=== PATIENT | female | born 1945 | race Two or more races ===

== ENCOUNTER → 2016-10-24 | Outpatient (CLI) | payer MEDICARE, OTHER ==
[~2016-10-24] MED LIST: AMLODIPINE BESYL5 MG ORAL; ASPIRIN-LOW81 MG ORAL; ASPIRIN81 MG ORAL; BACTRIM DS TAB1 EAC1 ORAL; BENAZEPRIL HCL10 MG ORAL; CARAFATE1 G1 ORAL; COUMADIN6 MG ORAL; CRESTOR10 M1 ORAL; DIGOXIN125 MCG ORAL; FUROSEMIDE80 MG ORAL; KEFLEX500 MG ORAL; LASIX20 M1 ORAL; LASIX40 MG ORAL; LEVAQUIN500 MG ORAL; LOVENOX10 M1 SUBQ; METOPROLOL TART50 MG ORAL; POTASSIUM CHLO20 ME1 ORAL; POTASSIUM CL 225 MEQ PO; PROMETHAZINE-C118 M1 ORAL; PROTONIX40 MG ORAL; WARFARIN SODIUM5 MG ORAL; WARFARIN SODIUM6 MG ORAL; ZOLPIDEM TARTRAT5 MG ORAL
[2016-10-24 15:57] LABS: BASOPHILS % (AUTO) 0.8 % (0.0-2.0); EOSINOPHILS % (AUTO) 1.9 % (0.0-3.0); LYMPHOCYTES % (AUTO) 30.2 % (20.0-45.0); MEAN CORPUSCULAR HEMOGLOBIN 31.5 PG (27.0-31.0); MEAN CORPUSCULAR HGB CONC 33.3 G/DL (32.0-36.0); MEAN CORPUSCULAR VOLUME 94 FL (80-99); MEAN PLATELET VOLUME 8.3 FL (6.5-10.1); MONOCYTES % (AUTO) 7.7 % (1.0-10.0); NEUTROPHILS % (AUTO) 59.5 % (45.0-75.0); PLATELET COUNT 172 K/UL (150-450); RED BLOOD COUNT 4.11 M/UL (4.20-5.40); RED CELL DISTRIBUTION WIDTH 13.3 % (11.6-14.8); WHITE BLOOD COUNT 8.5 K/UL (4.8-10.8)
[2016-10-24 16:31] LABS: ALANINE AMINOTRANSFERASE 19 U/L (3-33); ALBUMIN/GLOBULIN RATIO 1.2 (1.0-2.7); ANION GAP 12 (5-15); ASPARTATE AMINO TRANSFERASE 28 U/L (5-40); CALCIUM 8.9 mg/dL (8.6-10.2); CARBON DIOXIDE 30 mEQ/L (20-30); CHLORIDE 99 mEQ/L (98-107); CREATININE 0.8 mg/dL (0.5-0.9); GLOMERULAR FILTRATION RATE > 60 mL/min (>60); HEMOLYSIS 3; POTASSIUM 3.6 mEQ/L (3.4-4.9); SODIUM 141 mEQ/L (135-145); TOTAL PROTEIN 7.3 g/dL (6.6-8.7)
== END | disposition home or self-care (01) ==
LOC: EDSTATUS 08:40 → LAB 15:20
DX: Z01.818 Encounter for other preprocedural examination (principal)
CPT/HCPCS: 36415; 80053; 85025

== ENCOUNTER → 2016-10-25 | Outpatient (CLI) | payer MEDICARE, OTHER ==
--- NOTE | 2016-10-26 14:57 | Cardiology Report ---
APPROVED REPORT EKG Measurement Heart [id number] Atrial fibrillation with slow ventricular response Abnormal ECG
== END | disposition home or self-care (01) ==
LOC: CAR 10:40
DX: Z01.818 Encounter for other preprocedural examination (principal)
CPT/HCPCS: 93005

== ENCOUNTER 2016-12-08 21:47 | Inpatient (IN) | payer MEDICARE, OTHER ==
[~2016-12-08] VITALS: Ht 154.9 cm; Wt 90.7 kg
[~2016-12-08 21:47] MED LIST changes: -ASPIRIN-LOW81 MG ORAL; -POTASSIUM CHLO20 ME1 ORAL; -WARFARIN SODIUM5 MG ORAL
[2016-12-08 22:04] VITALS: BP 143/54
[2016-12-08] MEDS ORDERED: Morphine Sulfate 4mg/ml Inj IVP ONE (22:15)
[2016-12-08 23:04] LABS: MEAN CORPUSCULAR HEMOGLOBIN 29.8 PG (27.0-31.0); MEAN CORPUSCULAR HGB CONC 31.3 G/DL (32.0-36.0); MEAN CORPUSCULAR VOLUME 95 FL (80-99); MEAN PLATELET VOLUME 8.6 FL (6.5-10.1); PLATELET COUNT 192 K/UL (150-450); RED CELL DISTRIBUTION WIDTH 13.6 % (11.6-14.8); WHITE BLOOD COUNT 21.5 K/UL (4.8-10.8)
[2016-12-08 23:15] LABS: TROPONIN I < 0.30 ng/mL (<=0.30)
[2016-12-08 23:18] LABS: ALBUMIN/GLOBULIN RATIO 1.1 (1.0-2.7); CALCIUM 9.1 mg/dL (8.6-10.2); GLOMERULAR FILTRATION RATE 54.8 mL/min (>60); POTASSIUM 3.4 mEQ/L (3.4-4.9); TOTAL PROTEIN 7.7 g/dL (6.6-8.7)
[2016-12-08 23:29] LABS: CKMB 2.5 ng/mL (< 3.8)
[2016-12-08 23:41] LABS: BILIRUBIN,DIRECT 0.9 mg/dL (0.1-0.3)
[2016-12-08 23:42] LABS: APPEARANCE,URINE CLEAR; KETONES,URINE NEGATIVE (NEGATIVE); LEUKOCYTE ESTERASE ,URINE 1+ (NEGATIVE); NITRITE,URINE NEGATIVE (NEGATIVE); PH,URINE 5 (4.5-8.0); PROTEIN,URINE 1+ (NEGATIVE); UROBILINOGEN,URINE 4 MG/DL (0.0-1.0)
[2016-12-08 23:48] LABS: INR 3.3 (0.9-1.1); PROTHROMBIN TIME 34.7 SEC (9.30-11.50)
[2016-12-08 23:53] LABS: BACTERIA,URINE FEW /HPF; ICTOTEST NEGATIVE; SQUAMOUS EPITHELIAL CELL,UR FEW /LPF (NONE/OCC); WBC,URINE 0-2 /HPF (0 - 2)
[2016-12-09] VITALS (7 sets, daily range): BP systolic 115–148; BP diastolic 36–78
[2016-12-09 00:02] LABS: BAND NEUTROPHILS % (MANUAL) 3 % (0-8); BASOPHILS % (MANUAL) 0 % (0-2); EOSINOPHILS % (MANUAL) 0 % (0-3); LYMPHOCYTES % (MANUAL) 6 % (20-45); NEUTROPHILS % (MANUAL) 89 % (45-75); PLATELET ESTIMATE ADEQUATE; PLATELET MORPHOLOGY NORMAL; TOTAL CELLS COUNTED 100
[2016-12-09] MEDS ORDERED: Piperacillin/Tazobactam 3.375 GM in NS 110 ML IVPB ONE (00:15)
[2016-12-09] MEDS ORDERED: Zosyn 3.375gm inj ONE ×2 (00:29→06:10)
[2016-12-09] MEDS ORDERED: WARFARIN SODIUM5 MG ORAL (01:49)
[2016-12-09] MEDS ORDERED: POTASSIUM CHLO20 ME1 ORAL (01:49)
[2016-12-09] MEDS ORDERED: ASPIRIN-LOW81 MG ORAL (01:49)
[2016-12-09] MEDS ORDERED: CARAFATE1 G1 ORAL (01:49)
--- NOTE | 2016-12-09 02:13 | Emergency Room Report ---
History of Present Illness General Chief Complaint: Abdominal Pain Source: Patient Present Illness HPI 71-year-old female presents ED for evaluation. Patient is complaining of abdominal pain times one day. Pain as throbbing, 10 out of 10, nonradiating. Diffuse. Denies nausea or vomiting. Denies chest pain or shortness of breath. Denies fevers or chills. No other aggravating or relieving factors. Denies any other associated symptoms Allergies: Coded Allergies: No Known Allergies (Unverified , 09/28/14) Patient History Past Medical History: HTN, AFib Past Surgical History: none Pertinent Family History: none Social History: Denies: alcohol use, drug use, smoking Now: No Immunizations: UTD Reviewed Nursing Documentation: PMH: Agreed, PSxH: Agreed Nursing Documentation-PMH Past Medical History: No History, Except For Hx Cardiac Problems: Yes - Aortic valve stenosis, mitral valve stenosis, A-fib , valve replacement apr Hx Hypertension: Yes - pulm htn Hx Diabetes: No Hx Cancer: No Hx Gastrointestinal Problems: Yes Hx Dialysis: No Hx Neurological Problems: No Hx Cerebrovascular Accident: No Hx Seizures: No Review of Systems All Other Systems: negative except mentioned in HPI Physical Exam Vital Signs Date Time Temp Pulse Resp B/P Pulse Ox O2 Delivery O2 Flow Rate FiO2 12/08/16 21:55 98.1 55 12 143/54 99 Room Air Sp02 EP Interpretation: reviewed, normal General Appearance: no apparent distress, alert, GCS 15, non-toxic Head: normocephalic, atraumatic Eyes: bilateral eye PERRL, bilateral eye normal inspection ENT: hearing grossly normal, normal pharynx, no angioedema, normal voice Neck: full range of motion, supple/symm/no masses Respiratory: chest non-tender, lungs clear, normal breath sounds, speaking full sentences Cardiovascular #1: regular rate, rhythm, no edema Cardiovascular #2: 2+ carotid (R), 2+ carotid (L), 2+ radial (R), 2+ radial (L) , 2+ dorsalis pedis (R), 2+ dorsalis pedis (L) Gastrointestinal: normal bowel sounds, soft, non-distended, no guarding, no rebound, tenderness Rectal: deferred Genitourinary: normal inspection, no CVA tenderness Musculoskeletal: back normal, gait/station normal, normal range of motion, non- tender Neurologic: alert, oriented x3, responsive, motor strength/tone normal, sensory intact, speech normal Psychiatric: judgement/insight normal, memory normal, mood/affect normal, no suicidal/homicidal ideation Reflexes: 3+ bicep (R), 3+ bicep (L), 3+ tricep (R), 3+ tricep (L), 3+ knee (R) , 3+ knee (L) Skin: normal color, no rash, warm/dry, well hydrated Lymphatic: no adenopathy Medical Decision Making Diagnostic Impression: Primary Impression: Pancreatitis Qualified Codes: K85.10 - Biliary acute pancreatitis without necrosis or infection Additional Impressions: Phlegmon of pancreas Bradycardia ER Course Hospital Course 71-year-old female presents to ED with abdominal pain Differential diagnoses include: BPH, cystitis, pyelonephritis, kidney stone 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 After initial history and physical I ordered labs, IV fluids, UA, pain medication and CT scan Labs - noted leukocytosis, Hb/Hct stable. electrolytes ok. Lipase > 3000, AST/ ALT elevated. CT abdomen and pelvis - pancreatitis, cholelithiasis with pericholecystic fluid ? cholecystitis given IVFs. pain meds. abx. patient bradycardic. digoxin level therapeutic EKG - afib with slow ventricular response Case discussed with Dr. Mishra and he agreed to accept the patient to his service for further care and support I feel this is a highly complex case requiring extensive working including EKG/ Rhythm strip, Xray/CT/US, Blood/urine lab work, repeat exams while in ED, and administration of strong opiates/narcotics for pain control, admission to hospital or close patient follow up. Diagnosis - acute pancreatitis, bradycardia Patient admitted to [facility] in serious condition Labs Test 12/08/16 22:35 12/08/16 23:25 12/09/16 01:20 White Blood Count 21.5 K/UL (4.8-10.8) Red Blood Count 4.80 M/UL (4.20-5.40) Hemoglobin 14.3 G/DL (12.0-16.0) Hematocrit 45.8 % (37.0-47.0) Mean Corpuscular Volume 95 FL (80-99) Mean Corpuscular Hemoglobin 29.8 PG (27.0-31.0) Mean Corpuscular Hemoglobin Concent 31.3 G/DL (32.0-36.0) Red Cell Distribution Width 13.6 % (11.6-14.8) Platelet Count 192 K/UL (150-450) Mean Platelet Volume 8.6 FL (6.5-10.1) Neutrophils (%) (Auto) % (45.0-75.0) Lymphocytes (%) (Auto) % (20.0-45.0) Monocytes (%) (Auto) % (1.0-10.0) Eosinophils (%) (Auto) % (0.0-3.0) Basophils (%) (Auto) % (0.0-2.0) Differential Total Cells Counted 100 Neutrophils % (Manual) 89 % (45-75) Lymphocytes % (Manual) 6 % (20-45) Monocytes % (Manual) 2 % (1-10) Eosinophils % (Manual) 0 % (0-3) Basophils % (Manual) 0 % (0-2) Band Neutrophils 3 % (0-8) Platelet Estimate Adequate Platelet Morphology Normal Red Blood Cell Morphology Normal Prothrombin Time 34.7 SEC (9.30-11.50) Prothromb Time International Ratio 3.3 (0.9-1.1) Activated Partial Thromboplast Time 37 SEC (23-33) Sodium Level 141 mEQ/L (135-145) Potassium Level 3.4 mEQ/L (3.4-4.9) Chloride Level 92 mEQ/L (98-107) Carbon Dioxide Level 32 mEQ/L (20-30) Anion Gap 17 (5-15) Blood Urea Nitrogen 23 mg/dL (7-23) Creatinine 1.0 mg/dL (0.5-0.9) Estimat Glomerular Filtration Rate 54.8 mL/min (>60) Glucose Level 239 mg/dL (74-106) Calcium Level 9.1 mg/dL (8.6-10.2) Total Bilirubin 2.2 mg/dL (0.0-1.2) Direct Bilirubin 0.9 mg/dL (0.1-0.3) Aspartate Amino Transf (AST/SGOT) 121 U/L (5-40) Alanine Aminotransferase (ALT/SGPT) 50 U/L (3-33) Alkaline Phosphatase 109 U/L (35-104) Creatine Kinase MB 2.5 ng/mL (< 3.8) Troponin I < 0.30 ng/mL (<=0.30) Total Protein 7.7 g/dL (6.6-8.7) Albumin 4.1 g/dL (3.5-5.2) Globulin 3.6 g/dL Albumin/Globulin Ratio 1.1 (1.0-2.7) Lipase 3050 U/L (< 60) Digoxin Level 0.9 ng/mL (0.5-2.0) Urine Color Yellow Urine Appearance Clear Urine pH 5 (4.5-8.0) Urine Specific [place] 1.020 (1.005-1.035) Urine Protein 1+ (NEGATIVE) Urine Glucose (UA) Negative (NEGATIVE) Urine Ketones Negative (NEGATIVE) Urine Occult Blood 2+ (NEGATIVE) Urine Nitrite Negative (NEGATIVE) Urine Bilirubin 1+ (NEGATIVE) Urine Ictotest Negative Urine Urobilinogen 4 MG/DL (0.0-1.0) Urine Leukocyte Esterase 1+ (NEGATIVE) Urine RBC 10-15 /HPF (0 - 2) Urine WBC 0-2 /HPF (0 - 2) Urine Squamous Epithelial Cells Few /LPF (NONE/OCC) Urine Bacteria Few /HPF (NONE) EKG Diagnostic Results Rate: bradycardiac Rhythm: other - afib ST Segments: no acute changes ASA given to the pt in ED: No Rhythm Strip Diag. Results EP Interpretation: yes Rhythm: no ectopy CT/MRI/US Diagnostic Results CT/MRI/US Diagnostic Results : Imaging Test Ordered: CT A/P Impression Extensive peripancreatic edema, consistent with acute pancreatitis. Cholelithiasis and there is pericholecystic edema, which is likely reactive to pancreatitis, but cholecystitis is not excluded Last Vital Signs Date Time Temp Pulse Resp B/P Pulse Ox O2 Delivery O2 Flow Rate FiO2 12/09/16 00:04 98.1 59 16 121/43 97 Room Air Status: improved Disposition: ADMITTED INPATIENT Condition: Serious Referrals: NOT CHOSEN LAURENT/,REFERRING (PCP) ABIGAIL ARELLANO M.D. Dec 09, 2016 02:13
[2016-12-09] MEDS ORDERED: Morphine Sulfate 4mg/ml Inj IVP ONE (02:30)
[2016-12-09] MEDS ORDERED: Nitroglycerin Subl 0.4mg tab (Bottle Of 25) SL PRN (05:00)
[2016-12-09] MEDS ORDERED: Mylanta II UD 30ml ORAL PRN (05:00)
[2016-12-09] MEDS ORDERED: Miralax 17gm pkt ORAL PRN (05:00)
[2016-12-09] MEDS: Piperacillin/Tazobactam 3.375 GM in NS 110 ML IVPB SCH ×3 (06:23→21:28)
--- NOTE | 2016-12-09 07:53 | History and Physical ---
History of Present Illness General Date patient seen: Dec 09, 2016 Time patient seen: 08:00 Reason for Hospitalization: Abdominal Pain Present Illness HPI 71-year-old female with past history of acute pancreatitis , CAD, A fibrillation , HTN, Hx of MVR and AVR presented to ED for evaluation. Patient was complaining of abdominal pain for one day. Pain described as throbbing, 10 out of 10, nonradiating, diffuse. Patient with 3 admission for the same reason for the last 3 years Denied nausea or vomiting. Denied chest pain or shortness of breath. Denied fevers or chills. CT abdomen and pelvis revealed pancreatitis, cholelithiasis with pericholecystic fluid ? cholecystitis Lab work up revealed leukocytosis-33, lipase -3050 , elevated LFT/bili, hyperglycemia patient admitted for further management Allergies: Coded Allergies: No Known Allergies (Unverified , 09/28/14) Medication History Scheduled Amlodipine Besylate* (Amlodipine Besylate*), 5 MG ORAL DAILY, (Reported) Aspirin (Aspirin EC), 81 MG ORAL DAILY, (Reported) Aspirin* (Aspirin*), 81 MG ORAL DAILY, (Reported) Digoxin* (Digoxin*), 125 MCG ORAL DAILY, (Reported) Furosemide (Furosemide), 80 MG ORAL DAILY, (Reported) Metoprolol Tartrate* (Metoprolol Tartrate*), 75 MG ORAL BID, (Reported) Pot Chloride/Pot Bicarb/Cit Ac (Potassium Cl 25 Meq Tab Eff), 20 MEQ PO DAILY, ( Reported) Potassium Chloride* (K-Dur*), 20 MEQ ORAL DAILY, (Reported) Rosuvastatin Calcium (Crestor), 10 MG ORAL DAILY, (Reported) Sucralfate* (Carafate*), 1 GM ORAL FOUR TIMES A DAY, (Reported) Warfarin Sod* (Warfarin Sod*), 5 MG ORAL DAILY, (Reported) Scheduled PRN Zolpidem Tartrate* (Zolpidem Tartrate*), 5 MG ORAL BEDTIME PRN for Insomnia, ( Reported) Patient History Healthcare decision maker self Resuscitation status Full Code Advanced Directive on File No Past Medical/Surgical History Past Medical/Surgical History: (1) Anemia (2) Pancreatitis (3) Aortic stenosis (4) Cholelithiasis (5) Hepatomegaly (6) Atrial fibrillation (7) Helicobacter pylori gastritis Review of Systems Constitutional: Reports: weakness ENT: Reports: no symptoms Respiratory: Reports: no symptoms Cardiovascular: Reports: see HPI Gastrointestinal: Reports: see HPI Genitourinary: Reports: no symptoms Musculoskeletal: Reports: joint pain Skin: Reports: no symptoms Psychiatric: Reports: no symptoms Neurological: Reports: no symptoms Endocrine: Reports: no symptoms Hematologic/Lymphatic: Reports: no symptoms Physical Exam General Appearance: WD/WN, no apparent distress, alert - A/A/O x 3 Lines, tubes and drains: peripheral HEENT: normocephalic, atraumatic, anicteric Neck: normal alignment, supple Respiratory/Chest: lungs clear, no respiratory distress, no accessory muscle use Cardiovascular/Chest: normal peripheral pulses, no JVD, irregularly irregular - A fib , rate controlled, frequent PVC, run of NSVT Abdomen: normal bowel sounds, soft - obese, diffused tenderness, no rebound, no guarding Skin Exam: normal pigmentation, warm/dry Neurologic: no motor/sensory deficits, alert, oriented x 3, responsive Last 24 Hour Vital Signs Date Time Temp Pulse Resp B/P Pulse Ox O2 Delivery O2 Flow Rate FiO2 12/09/16 04:00 60 12/09/16 03:10 97.8 12/09/16 03:00 55 12/09/16 03:00 97.8 55 19 144/52 98 Nasal Cannula 2.0 12/09/16 02:40 98.1 57 15 133/38 98 Nasal Cannula 2.0 12/09/16 02:04 97.9 57 15 133/36 98 Nasal Cannula 2.0 12/09/16 00:04 98.1 59 16 121/43 97 Room Air 12/08/16 23:07 98.0 12/08/16 22:04 98.1 56 12 143/54 99 Room Air 12/08/16 21:55 98.1 55 12 143/54 99 Room Air Intake and Output 12/08/16 12/09/16 19:00 07:00 Intake Total 702.5 ml Balance 702.5 ml Intake Oral 0 ml IV Total 702.5 ml # Voids 1 Laboratory Tests Test 12/08/16 22:35 12/08/16 23:25 12/09/16 01:20 White Blood Count 21.5 K/UL (4.8-10.8) H Red Blood Count 4.80 M/UL (4.20-5.40) Hemoglobin 14.3 G/DL (12.0-16.0) Hematocrit 45.8 % (37.0-47.0) Mean Corpuscular Volume 95 FL (80-99) Mean Corpuscular Hemoglobin 29.8 PG (27.0-31.0) Mean Corpuscular Hemoglobin Concent 31.3 G/DL (32.0-36.0) L Red Cell Distribution Width 13.6 % (11.6-14.8) Platelet Count 192 K/UL (150-450) Mean Platelet Volume 8.6 FL (6.5-10.1) Neutrophils (%) (Auto) % (45.0-75.0) Lymphocytes (%) (Auto) % (20.0-45.0) Monocytes (%) (Auto) % (1.0-10.0) Eosinophils (%) (Auto) % (0.0-3.0) Basophils (%) (Auto) % (0.0-2.0) Differential Total Cells Counted 100 Neutrophils % (Manual) 89 % (45-75) H Lymphocytes % (Manual) 6 % (20-45) L Monocytes % (Manual) 2 % (1-10) Eosinophils % (Manual) 0 % (0-3) Basophils % (Manual) 0 % (0-2) Band Neutrophils 3 % (0-8) Platelet Estimate Adequate Platelet Morphology Normal Red Blood Cell Morphology Normal Prothrombin Time 34.7 SEC (9.30-11.50) H Prothromb Time International Ratio 3.3 (0.9-1.1) H Activated Partial Thromboplast Time 37 SEC (23-33) H Sodium Level 141 mEQ/L (135-145) Potassium Level 3.4 mEQ/L (3.4-4.9) Chloride Level 92 mEQ/L (98-107) L Carbon Dioxide Level 32 mEQ/L (20-30) H Anion Gap 17 (5-15) H Blood Urea Nitrogen 23 mg/dL (7-23) Creatinine 1.0 mg/dL (0.5-0.9) H Estimat Glomerular Filtration Rate 54.8 mL/min (>60) Glucose Level 239 mg/dL (74-106) H Calcium Level 9.1 mg/dL (8.6-10.2) Total Bilirubin 2.2 mg/dL (0.0-1.2) H Direct Bilirubin 0.9 mg/dL (0.1-0.3) H Aspartate Amino Transf (AST/SGOT) 121 U/L (5-40) H Alanine Aminotransferase (ALT/SGPT) 50 U/L (3-33) H Alkaline Phosphatase 109 U/L (35-104) H Creatine Kinase MB 2.5 ng/mL (< 3.8) Troponin I < 0.30 ng/mL (<=0.30) Total Protein 7.7 g/dL (6.6-8.7) Albumin 4.1 g/dL (3.5-5.2) Globulin 3.6 g/dL Albumin/Globulin Ratio 1.1 (1.0-2.7) Lipase 3050 U/L (< 60) H Digoxin Level 0.9 ng/mL (0.5-2.0) Urine Color Yellow Urine Appearance Clear Urine pH 5 (4.5-8.0) Urine Specific [place] 1.020 (1.005-1.035) Urine Protein 1+ (NEGATIVE) H Urine Glucose (UA) Negative (NEGATIVE) Urine Ketones Negative (NEGATIVE) Urine Occult Blood 2+ (NEGATIVE) H Urine Nitrite Negative (NEGATIVE) Urine Bilirubin 1+ (NEGATIVE) H Urine Ictotest Negative Urine Urobilinogen 4 MG/DL (0.0-1.0) H Urine Leukocyte Esterase 1+ (NEGATIVE) H Urine RBC 10-15 /HPF (0 - 2) H Urine WBC 0-2 /HPF (0 - 2) Urine Squamous Epithelial Cells Few /LPF (NONE/OCC) Urine Bacteria Few /HPF (NONE) Lactic Acid Level 1.50 mmol/L (0.66-2.22) Height (Feet): 5 Height (Inches): 1.00 Weight (Pounds): 145 Medications Current Medications Medications (Trade) Dose Ordered Sig/Lisbeth Route PRN Reason Start Time Stop Time Status Last Admin Dose Admin Acetaminophen (Tylenol) 650 mg Q4H PRN ORAL fever 12/09/16 05:00 01/08/17 04:59 Al Hydroxide/Mg Hydroxide (Mylanta II) 30 ml Q6H PRN ORAL dyspepsia 12/09/16 05:00 01/08/17 04:59 Amlodipine Besylate (Norvasc) 5 mg DAILY ORAL 12/09/16 09:00 52/17 08:59 Dextrose STAT PRN IV Hypoglycemia 12/09/16 05:00 01/08/17 04:59 Dextrose/Sodium Chloride (D5 0.45% NS) 1,000 ml @ 75 mls/hr [id number] IV 12/09/16 17:40 01/08/17 17:39 12/09/16 06:03 Digoxin (Lanoxin) 0.125 mg DAILY ORAL 12/09/16 09:00 01/08/17 08:59 Diphenhydramine HCl (Benadryl) 25 mg Q6H PRN ORAL Itching/Pruritis 12/09/16 05:00 01/08/17 04:59 Furosemide (Lasix) 80 mg DAILY ORAL 12/09/16 09:00 01/08/17 08:59 Heparin Sodium (Porcine) (Heparin 5000 units/ml) 5,000 units EVERY 12 HOURS SUBQ 12/09/16 09:00 01/08/17 08:59 Morphine Sulfate (Morphine Sulfate) 2 mg EVERY 4 HOURS PRN IVP severe Pain (Pain Scale 7-10) 12/09/16 05:00 12/16/16 04:59 Nitroglycerin (Ntg) 0.4 mg Q5M X 3 DOSES PRN SL Prn Chest Pain 12/09/16 05:00 01/08/17 04:59 Ondansetron HCl (Zofran) 4 mg Q6H PRN IVP Nausea & Vomiting 12/09/16 05:00 01/08/17 04:59 Piperacillin Sod/ Tazobactam Sod/ Sodium Chloride (Zosyn/Sodium Chloride) 110 ml @ 27.5 mls/hr EVERY 8 HOURS IVPB 12/09/16 06:00 12/16/16 05:59 12/09/16 06:23 Polyethylene Glycol (Miralax) 17 gm HSPRN PRN ORAL Constipation 12/09/16 05:00 01/08/17 04:59 Sucralfate 1 gm 1 gm FOUR TIMES A DAY ORAL 12/09/16 09:00 01/08/17 08:59 Temazepam (Restoril) 15 mg HSPRN PRN ORAL Insomnia 12/09/16 05:00 12/16/16 04:59 Warfarin Sodium (Coumadin per pharmacy) 1 ea DAILY PRN MISC Per rx protocol 12/09/16 05:15 01/08/17 05:14 UNV Assessment/Plan Assessment/Plan ASSESSMENT acute pancreatitis possibly gallstones pancreatitis leukocytosis hyperglycemia HTN A fib pulmonary HTN Hx of AVR and MVR PLAN OF CARE DANYELLE NPO IVF GI eval pain management empiric abx trend LFT, bili, lipase check HgA1c and lipid panel CA 19-9 done on previous admission , WNL abdominal US cardio eval due to extensive cardiac history and run of NSVT rate control with BB and Digoxin ( level therapeutic) on Coumadin, keep INR in therapeutic range 2-3-per pharamncy BP management with BB, CCB and Lasix, optimize as needed last ECHO in September with grossly normal EF, RVSP of 62 c/w severe pulmonary HTN , moderate TR, mild to moderate MS. severe aortic sclerosis GI prophylaxis bowel regimen O2 HHN prn case discussed and evaluated by supervising physician Nazario Nolasco)Tonya NP Dec 09, 2016 07:52
[2016-12-09] MEDS: Sucralfate 1gm tab ORAL SCH ×4 (08:58→21:28)
[2016-12-09] MEDS ORDERED: Heparin 5000 units/ml inj SUBQ SCH (09:00)
[2016-12-09] MEDS ORDERED: Metoprolol 50mg tab ORAL SCH (09:00)
[2016-12-09] MEDS ORDERED: Furosemide 80mg tab ORAL SCH (09:00)
[2016-12-09] MEDS ORDERED: Digoxin 0.125mg tab ORAL SCH (09:00)
[2016-12-09] MEDS ORDERED: Tubing IV Secondary IV ONE (09:02)
[2016-12-09] MEDS ORDERED: D5 1/2NS 1000ml IV ONE (09:02)
[2016-12-09] MEDS: Morphine Sulfate 2mg/ml Inj IVP PRN ×3 (09:09→23:54)
[2016-12-09 09:24] LABS: HEMOGLOBIN A1C 6.7 % (< 6.0)
[2016-12-09 09:35] LABS: INR 3.7 (0.9-1.1); PROTHROMBIN TIME 39.3 SEC (9.30-11.50)
[2016-12-09 09:37] LABS: CHOLESTEROL/HDL RATIO 2.2 (3.3-4.4)
[2016-12-09 09:38] LABS: MEAN CORPUSCULAR HGB CONC 31.8 G/DL (32.0-36.0); MEAN CORPUSCULAR VOLUME 95 FL (80-99); MEAN PLATELET VOLUME 8.9 FL (6.5-10.1); PLATELET COUNT 218 K/UL (150-450); RED BLOOD COUNT 4.82 M/UL (4.20-5.40); RED CELL DISTRIBUTION WIDTH 13.6 % (11.6-14.8); WHITE BLOOD COUNT 16.8 K/UL (4.8-10.8)
[2016-12-09 09:48] LABS: THYROID STIMULATING HORMONE 0.77 uIU/mL (0.300-4.500)
[2016-12-09 10:01] LABS: ANION GAP 18 (5-15); CALCIUM 7.8 mg/dL (8.6-10.2); CARBON DIOXIDE 29 mEQ/L (20-30); CHLORIDE 96 mEQ/L (98-107); CREATININE 1.1 mg/dL (0.5-0.9); GLOMERULAR FILTRATION RATE 49.1 mL/min (>60); POTASSIUM 3.4 mEQ/L (3.4-4.9); SODIUM 143 mEQ/L (135-145)
[2016-12-09 10:17] LABS: BAND NEUTROPHILS % (MANUAL) 0 % (0-8); BASOPHILS % (MANUAL) 0 % (0-2); EOSINOPHILS % (MANUAL) 0 % (0-3); LYMPHOCYTES % (MANUAL) 5 % (20-45); NEUTROPHILS % (MANUAL) 92 % (45-75); PLATELET ESTIMATE ADEQUATE; PLATELET MORPHOLOGY NORMAL; TOTAL CELLS COUNTED 100
--- NOTE | 2016-12-09 11:26 | Cardiology Progress Note ---
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 on anticoagulation perm afib on anticoagualtion with couamdin coagulaopathy awuiat gi input if need surgery will need couadin dc and bridge to heparin will need min time off anticoaguaiton as has Mechanical Mitral prosthesis and afib decreaase ivf decrease bb to her usual dsoe eventually had some vomittign with vagally medicated jemima [id number] Objective Last 24 Hour Vital Signs Date Time Temp Pulse Resp B/P Pulse Ox O2 Delivery O2 Flow Rate FiO2 12/09/16 10:58 73 12/09/16 09:04 64 125/78 12/09/16 09:01 64 12/09/16 04:00 60 12/09/16 03:10 97.8 12/09/16 03:00 55 12/09/16 03:00 97.8 55 19 144/52 98 Nasal Cannula 2.0 12/09/16 02:40 98.1 57 15 133/38 98 Nasal Cannula 2.0 12/09/16 02:04 97.9 57 15 133/36 98 Nasal Cannula 2.0 12/09/16 00:04 98.1 59 16 121/43 97 Room Air 12/08/16 23:07 98.0 12/08/16 22:04 98.1 56 12 143/54 99 Room Air 12/08/16 21:55 98.1 55 12 143/54 99 Room Air Intake and Output 12/08/16 12/09/16 19:00 07:00 Intake Total 702.5 ml Balance 702.5 ml Intake Oral 0 ml IV Total 702.5 ml # Voids 1 Laboratory Tests Test 12/08/16 22:35 12/08/16 23:25 12/09/16 01:20 12/09/16 08:50 White Blood Count 21.5 K/UL (4.8-10.8) H 16.8 K/UL (4.8-10.8) H Red Blood Count 4.80 M/UL (4.20-5.40) 4.82 M/UL (4.20-5.40) Hemoglobin 14.3 G/DL (12.0-16.0) 14.5 G/DL (12.0-16.0) Hematocrit 45.8 % (37.0-47.0) 45.5 % (37.0-47.0) Mean Corpuscular Volume 95 FL (80-99) 95 FL (80-99) Mean Corpuscular Hemoglobin 29.8 PG (27.0-31.0) 30.0 PG (27.0-31.0) Mean Corpuscular Hemoglobin Concent 31.3 G/DL (32.0-36.0) L 31.8 G/DL (32.0-36.0) L Red Cell Distribution Width 13.6 % (11.6-14.8) 13.6 % (11.6-14.8) Platelet Count 192 K/UL (150-450) 218 K/UL (150-450) Mean Platelet Volume 8.6 FL (6.5-10.1) 8.9 FL (6.5-10.1) Neutrophils (%) (Auto) % (45.0-75.0) % (45.0-75.0) Lymphocytes (%) (Auto) % (20.0-45.0) % (20.0-45.0) Monocytes (%) (Auto) % (1.0-10.0) % (1.0-10.0) Eosinophils (%) (Auto) % (0.0-3.0) % (0.0-3.0) Basophils (%) (Auto) % (0.0-2.0) % (0.0-2.0) Differential Total Cells Counted 100 100 Neutrophils % (Manual) 89 % (45-75) H 92 % (45-75) H Lymphocytes % (Manual) 6 % (20-45) L 5 % (20-45) L Monocytes % (Manual) 2 % (1-10) 3 % (1-10) Eosinophils % (Manual) 0 % (0-3) 0 % (0-3) Basophils % (Manual) 0 % (0-2) 0 % (0-2) Band Neutrophils 3 % (0-8) 0 % (0-8) Platelet Estimate Adequate Adequate Platelet Morphology Normal Normal Red Blood Cell Morphology Normal Normal Prothrombin Time 34.7 SEC (9.30-11.50) H 39.3 SEC (9.30-11.50) H Prothromb Time International Ratio 3.3 (0.9-1.1) H 3.7 (0.9-1.1) H Activated Partial Thromboplast Time 37 SEC (23-33) H Sodium Level 141 mEQ/L (135-145) 143 mEQ/L (135-145) Potassium Level 3.4 mEQ/L (3.4-4.9) 3.4 mEQ/L (3.4-4.9) Chloride Level 92 mEQ/L (98-107) L 96 mEQ/L (98-107) L Carbon Dioxide Level 32 mEQ/L (20-30) H 29 mEQ/L (20-30) Anion Gap 17 (5-15) H 18 (5-15) H Blood Urea Nitrogen 23 mg/dL (7-23) 23 mg/dL (7-23) Creatinine 1.0 mg/dL (0.5-0.9) H 1.1 mg/dL (0.5-0.9) H Estimat Glomerular Filtration Rate 54.8 mL/min (>60) 49.1 mL/min (>60) Glucose Level 239 mg/dL (74-106) H 233 mg/dL (74-106) H Calcium Level 9.1 mg/dL (8.6-10.2) 7.8 mg/dL (8.6-10.2) L Total Bilirubin 2.2 mg/dL (0.0-1.2) H Direct Bilirubin 0.9 mg/dL (0.1-0.3) H Aspartate Amino Transf (AST/SGOT) 121 U/L (5-40) H Alanine Aminotransferase (ALT/SGPT) 50 U/L (3-33) H Alkaline Phosphatase 109 U/L (35-104) H Creatine Kinase MB 2.5 ng/mL (< 3.8) Troponin I < 0.30 ng/mL (<=0.30) Total Protein 7.7 g/dL (6.6-8.7) Albumin 4.1 g/dL (3.5-5.2) Globulin 3.6 g/dL Albumin/Globulin Ratio 1.1 (1.0-2.7) Lipase 3050 U/L (< 60) H 3950 U/L (< 60) H Digoxin Level 0.9 ng/mL (0.5-2.0) Urine Color Yellow Urine Appearance Clear Urine pH 5 (4.5-8.0) Urine Specific [place] 1.020 (1.005-1.035) Urine Protein 1+ (NEGATIVE) H Urine Glucose (UA) Negative (NEGATIVE) Urine Ketones Negative (NEGATIVE) Urine Occult Blood 2+ (NEGATIVE) H Urine Nitrite Negative (NEGATIVE) Urine Bilirubin 1+ (NEGATIVE) H Urine Ictotest Negative Urine Urobilinogen 4 MG/DL (0.0-1.0) H Urine Leukocyte Esterase 1+ (NEGATIVE) H Urine RBC 10-15 /HPF (0 - 2) H Urine WBC 0-2 /HPF (0 - 2) Urine Squamous Epithelial Cells Few /LPF (NONE/OCC) Urine Bacteria Few /HPF (NONE) Lactic Acid Level 1.50 mmol/L (0.66-2.22) Hemoglobin A1c 6.7 % (< 6.0) H Phosphorus Level 6.0 mg/dL (2.5-4.8) H Magnesium Level 2.0 mg/dL (1.7-2.5) Triglycerides Level 92 mg/dL (< 150) Cholesterol Level 93 mg/dL (< 200) LDL Cholesterol 32 mg/dL (60-99) L HDL Cholesterol 43 mg/dL (> 60) Cholesterol/HDL Ratio 2.2 (3.3-4.4) L Thyroid Stimulating Hormone (TSH) 0.770 uIU/mL (0.300-4.500) ANNE RAM Dec 09, 2016 11:26
--- NOTE | 2016-12-09 11:58 | Diagnostic Imaging Report ---
CT Abdomen/Pelvis with Intravenous Contrast INDICATION: Abdominal pain. COMPARISON: Abdomen/pelvis CT dated 06/14/15. TECHNIQUE: Serial axial images were obtained from the lung bases through the symphysis pubis after intravenous administration of contrast. Coronal and sagittal reformats were obtained. Dose Estimate: Total DLP 789 mGycm CTDIvol 17 mGy FINDINGS: The visualized lung bases exhibit mild atelectasis or scarring. The heart is enlarged. The liver is unremarkable. Small perihepatic splenic ascites is identified. There is enlargement of the pancreas with extensive peripancreatic fluid and edema compatible with advanced nonnecrotizing pancreatitis. Fluid extends along the mid abdomen into the upper pelvis. Mild prominence of the pancreatic duct noted. No significant intrahepatic or extrahepatic biliary ductal dilatation. The gallbladder contains small stones with apparent gallbladder wall thickening and pericholecystic fluid which may be related to mentioned pancreatitis. Acute cholecystitis is not excluded. Small duodenal diverticulum is suspected. Right renal parenchymal scarring is identified. No suspicious renal mass noted. No calculus is identified within either kidney, along the expected course of the ureters or within the urinary bladder. There is no evidence of hydronephrosis or asymmetric perirenal inflammatory change. The urinary bladder is exhibits mild wall thickening, likely due to under distention. The pelvic organs are grossly unremarkable. The visualized bowel are grossly unremarkable. There is no evidence of obstruction. There is no extraluminal gas or fluid. There are no enlarged lymph nodes. There is moderate calcified atherosclerotic disease of the the abdominal aorta. Mild degenerative changes noted in the thoracolumbar spine. IMPRESSION: 1. Nonnecrotizing acute pancreatitis with extensive peripancreatic fluid/phlegmon and inflammation. No evidence of organized fluid collection to suggest pseudocyst or abscess formation. 2. Cholelithiasis with apparent gallbladder wall thickening and pericholecystic fluid. This may related to the mentioned pancreatitis although acute cholecystitis is not excluded. Mild ascites noted. 3. Cardiomegaly. Other nonacute and essentially stable findings, as detailed above.
[2016-12-09] MEDS ORDERED: D5 1/2NS 1,000 ML IV SCH ×2 (12:00→17:40)
[2016-12-09] MEDS ORDERED: NS 275ml ONE (17:05)
--- NOTE | 2016-12-09 23:08 | Consultation ---
DATE OF CONSULTATION: 12/09/2016 GASTROENTEROLOGY CONSULTATION CHIEF COMPLAINT: Pancreatitis. HISTORY OF PRESENT ILLNESS: This is a very pleasant 71-year-old female, known to me from 2014, where I did an endoscopy and colonoscopy for her. Endoscopy showed evidence of gastritis and colonoscopy showed evidence of polyps and hemorrhoids. The patient is admitted with abdominal pain. She had a lipase of 3000 on admission and admitted with pancreatitis. PAST MEDICAL HISTORY: Significant for, 1. History of hypertension. 2. Gastritis. 3. Colon polyps. 4. Hemorrhoids. 5. Coronary artery disease. 6. Atrial fibrillation. 7. . PAST SURGICAL HISTORY: Cardiac surgery with aortic valve replacement. MEDICATIONS: Please see medication reconciliation list. ALLERGIES: No known drug allergies. SOCIAL HISTORY: The patient denies any tobacco, alcohol, or drug abuse. FAMILY HISTORY: Noncontributory. REVIEW OF SYSTEMS: A 10-point review of system was performed and pertinent positives in history of present illness. PHYSICAL EXAMINATION: VITAL SIGNS: Temperature 97.8 degrees, pulse 65, respirations 19, and blood pressure 144/52. HEENT: Normocephalic and atraumatic. Sclerae anicteric. NECK: Supple. No evidence of lymphadenopathy. CARDIOVASCULAR: Regular rate and rhythm. Plus S1 and S2. There is a scar in the midline from prior cardiac surgery. The patient has a soft murmur after replacement of the valve. ABDOMEN: Soft. Bowel sounds are present. Diffuse tenderness palpation in the epigastric area. No rebound. No guarding. No peritoneal signs. EXTREMITIES: No cyanosis. No clubbing. No edema. LABORATORY DATA: Sodium 140, potassium 3.4, BUN is 22, and creatinine 1.1. Bilirubin is 2.2. AST of 121, ALT of 50, and alkaline phosphatase of 105. White count is 16.8, hemoglobin 14, hematocrit 45, and platelet count is 218,000. ASSESSMENT AND PLAN: The patient is a 71-year-old female with pancreatitis and mild transaminitis. No prior history of gallstones. At this time, the cause of her pancreatitis is unknown. The patient given the lipase of 3000 and abdominal pain, to be kept NPO, intravenous fluids for hydration, and pain management. Lipid panel for tomorrow morning. We will repeat liver function tests for tomorrow. Abdominal ultrasound has been ordered. We will follow. Ortgea Gipson M.D. DR: MADELINE JOB#: [id number] CC:
--- NOTE | 2016-12-09 23:19 | Consultation ---
DATE OF CONSULTATION: 12/09/2016 CARDIOLOGY CONSULTATION REFERRING PHYSICIAN: Dennis Mishra M.D. REASON FOR REFERRAL: Cholecystitis, possible need for surgery. HISTORY OF PRESENT ILLNESS: The patient is a middle-aged female who is known to me from previous evaluations and hospitalization. The patient primarily started having some abdominal pain yesterday, nausea, vomiting and minimal amount of diarrhea. This pain continued and she presented to the emergency room and was diagnosed with possible acute cholecystitis. She has had this similar presentation on prior occasions and question about possible need for surgery was being raised. She has extensive cardiac history as noted below and will require preoperative cardiac assessment. The patient does not have any chest pain. Does not have any PND or orthopnea. She uses two pillows. She did have some dizziness and lightheadedness today, but usually she does not experience that. She does not have dyspnea on exertion. She does not have chest pain, pressure, tightness or palpitations. PAST MEDICAL HISTORY: Prominent with history of atrial fibrillation, systemic hypertension, history of previous mitral valvuloplasty, mitral valve surgery at [facility] and two or three years ago, she had aortic valve replacement here at [facility]. The patient has hypertension, systemic and pulmonary hypertension, mitral stenosis, congestive heart failure, pneumonia, COPD and recurrent bouts of pancreatitis, possibly gallstone related. ALLERGIES: She is not allergic to any medications. SOCIAL HISTORY: She does not smoke or drink alcoholic beverages. She lives at home with supportive family members. REVIEW OF SYSTEMS: Gastrointestinal: Positive as mentioned. Genitourinary: Negative. Pulmonary: Negative. Constitutional: Negative. Neurologic: Negative. Musculoskeletal: Negative. PHYSICAL EXAMINATION: GENERAL: The patient is an elderly female in no respiratory distress. NECK: Supple. No jugular venous distention is noted. LUNGS: Clear to auscultation and percussion. CARDIAC: Irregularly irregular systolic ejection murmur. No RV lift, heaves or thrills noted. Mechanical heart sounds noted. ABDOMEN: Soft. There is some tenderness to palpation. No guarding and no rigidity. No rebound tenderness. EXTREMITIES: There is no clubbing, cyanosis or edema. NEUROLOGIC: She is awake, alert and responsive and in no apparent respiratory distress. LABORATORY AND DIAGNOSTIC DATA: White count of 16.8, hemoglobin 14.5 and platelet count of 218,000. Sodium is 143, potassium 3.4, chloride 96, bicarbonate 29, BUN of 22, creatinine 1.1 and glucose of 233. Hemoglobin A1c of 6.7. Urine calcium is 7.8. Lipase is up to 3950 and amylase was not checked during this hospitalization. Her lipase level is much higher than it has ever been, on prior occasions it has been highest of 170s. TSH is 0.77. Coags, INR 3.7 and a PTT of 37. Urinalysis shows 10-15 RBCs and 0-2 WBCs. Digoxin level is 0.9. Imaging data is available at this time. ASSESSMENT AND PLAN: 1. Possible pancreatitis. 2. Abdominal pain secondary to above. 3. Valvular heart disease status post aortic valve replacement, pericardial valve and mitral valve replacement previously. 4. Pulmonary hypertension. 5. Chronic atrial fibrillation. 6. Coagulopathy secondary to Coumadin. Dr. Mishra, this patient was seen in cardiac consultation. The patient's last echocardiogram through my office was in April 2016, at that time ejection fraction was 60% to 65%, with peak mitral valve gradient of 20 and mean of 8, mitral valve area of 3 cm and aortic valve peak gradient is 14 and mean gradient was 17, and pulmonary artery systolic pressure in the 30s to 40s range. Her anticoagulation is mainly to be on hold if there is a pending surgery, although I am waiting for evaluation by Dr. Gipson to determine whether that may occur, at which time Coumadin will be discontinued. The patient will be bridged to heparin and further recommendations at that time based on those issues. Adonis Ortiz M.D. DR: GILMAR JOB#: [id number] CC:
[2016-12-10] VITALS (7 sets, daily range): BP systolic 107–149; BP diastolic 52–82
[2016-12-10] MEDS: Piperacillin/Tazobactam 3.375 GM in NS 110 ML IVPB SCH (05:17)
[2016-12-10 05:26] LABS: MEAN CORPUSCULAR HEMOGLOBIN 29.7 PG (27.0-31.0); MEAN CORPUSCULAR VOLUME 96 FL (80-99); MEAN PLATELET VOLUME 10.1 FL (6.5-10.1); PLATELET COUNT 230 K/UL (150-450); RED BLOOD COUNT 5.48 M/UL (4.20-5.40); RED CELL DISTRIBUTION WIDTH 14.5 % (11.6-14.8)
[2016-12-10 05:40] LABS: PROTHROMBIN TIME 111.6 SEC (9.30-11.50); WHITE BLOOD COUNT 27.7 K/UL (4.8-10.8)
[2016-12-10 05:45] LABS: ALBUMIN/GLOBULIN RATIO 0.8 (1.0-2.7); CALCIUM 6.8 mg/dL (8.6-10.2); CREATININE 1.6 mg/dL (0.5-0.9); GLOMERULAR FILTRATION RATE 31.8 mL/min (>60); POTASSIUM 3.6 mEQ/L (3.4-4.9); TOTAL PROTEIN 7.1 g/dL (6.6-8.7)
[2016-12-10 06:15] LABS: INR 10.2 (0.9-1.1)
[2016-12-10] MEDS ORDERED: D5 1/2NS 1,000 ML IV SCH ×2 (06:15→09:00)
[2016-12-10] MEDS ORDERED: Nitroglycerin Subl 0.4mg tab (Bottle Of 25) SL PRN (06:15)
[2016-12-10] MEDS: Morphine Sulfate 2mg/ml Inj IVP PRN ×4 (06:36→21:48)
[2016-12-10 07:03] LABS: BILIRUBIN,DIRECT 0.7 mg/dL (0.1-0.3)
[2016-12-10 08:17] LABS: ANISOCYTOSIS 1+; BAND NEUTROPHILS % (MANUAL) 6 % (0-8); BASOPHILS % (MANUAL) 0 % (0-2); EOSINOPHILS % (MANUAL) 0 % (0-3); LYMPHOCYTES % (MANUAL) 6 % (20-45); NEUTROPHILS % (MANUAL) 83 % (45-75); PLATELET ESTIMATE ADEQUATE; PLATELET MORPHOLOGY NORMAL; TOTAL CELLS COUNTED 100
[2016-12-10 08:30] LABS: PROTHROMBIN TIME 95.6 SEC (9.30-11.50)
[2016-12-10 08:50] LABS: INR 8.8 (0.9-1.1)
[2016-12-10] MEDS ORDERED: Furosemide 80mg tab ORAL SCH (09:00)
[2016-12-10] MEDS ORDERED: Metoprolol 25mg tab ORAL SCH (09:00)
[2016-12-10] MEDS: Digoxin 0.125mg tab ORAL SCH (09:05)
[2016-12-10] MEDS: Sucralfate 1gm tab ORAL SCH ×4 (09:06→21:52)
[2016-12-10] MEDS: Metoprolol 25mg tab ORAL SCH ×2 (09:06→21:48)
--- NOTE | 2016-12-10 09:40 | GI Progress Note ---
Assessment/Plan Problems: (1) Pancreatitis ICD Codes: K85.9 - Acute pancreatitis, unspecified SNOMED: 96136643 Qualifiers: Qualified Codes: K85.10 - Biliary acute pancreatitis without necrosis or infection (2) Abdominal pain ICD Codes: R10.9 - Unspecified abdominal pain SNOMED: 43749989, 728762614 (3) Iron deficiency anemia ICD Codes: D50.9 - Iron deficiency anemia, unspecified SNOMED: 70271068 (4) Colon polyp ICD Codes: K63.5 - Polyp of colon SNOMED: 41477997 Status: unchanged Status Narrative Discussed with Dr. Gipson. Assessment/Plan The patient was seen and examined at bedside and all new and available data was reviewed in the patients chart. I agree with the above findings, impression and plan. (Patient seen earlier today. Signature stamp does not reflect patient encounter time.). -Ortega Gipson MD elevated lipase >> downtrending fu lipid panel >> normal triglycerides fu abd U/S maintain NPO + IVFs pain mgmt abx repeat LFTs, lipase Subjective Subjective abdominal pain >> improved Objective Last 24 Hour Vital Signs Date Time Temp Pulse Resp B/P Pulse Ox O2 Delivery O2 Flow Rate FiO2 12/10/16 09:06 101 149/66 12/10/16 09:06 101 149/66 12/10/16 09:05 101 12/10/16 08:00 97.9 101 20 149/66 94 Nasal Cannula 2.0 12/10/16 06:00 97.3 108 28 137/52 96 Nasal Cannula 2.0 12/10/16 04:05 109 12/10/16 04:00 97.5 95 22 107/64 93 Room Air 12/10/16 00:43 115 12/10/16 00:00 98.6 102 22 126/82 96 Nasal Cannula 2.0 12/09/16 20:17 99.9 103 22 115/58 97 Nasal Cannula 2.0 12/09/16 20:00 106 12/09/16 16:00 84 12/09/16 16:00 98.4 93 20 135/74 94 Nasal Cannula 2.0 12/09/16 14:28 98.2 12/09/16 12:00 87 12/09/16 12:00 98.2 83 18 148/54 97 Nasal Cannula 2.0 12/09/16 10:58 73 Intake and Output 12/09/16 12/10/16 19:00 07:00 Intake Total 500.5 ml 700.0 ml Balance 500.5 ml 700.0 ml Intake Oral 0 ml 90 ml IV Total 500.5 ml 610.0 ml # Voids 4 Laboratory Tests Test 12/10/16 04:25 12/10/16 07:45 White Blood Count 27.7 K/UL (4.8-10.8) #*H Red Blood Count 5.48 M/UL (4.20-5.40) H Hemoglobin 16.3 G/DL (12.0-16.0) H Hematocrit 52.5 % (37.0-47.0) H Mean Corpuscular Volume 96 FL (80-99) Mean Corpuscular Hemoglobin 29.7 PG (27.0-31.0) Mean Corpuscular Hemoglobin Concent 31.0 G/DL (32.0-36.0) L Red Cell Distribution Width 14.5 % (11.6-14.8) Platelet Count 230 K/UL (150-450) Mean Platelet Volume 10.1 FL (6.5-10.1) Neutrophils (%) (Auto) % (45.0-75.0) Lymphocytes (%) (Auto) % (20.0-45.0) Monocytes (%) (Auto) % (1.0-10.0) Eosinophils (%) (Auto) % (0.0-3.0) Basophils (%) (Auto) % (0.0-2.0) Differential Total Cells Counted 100 Neutrophils % (Manual) 83 % (45-75) H Lymphocytes % (Manual) 6 % (20-45) L Monocytes % (Manual) 5 % (1-10) Eosinophils % (Manual) 0 % (0-3) Basophils % (Manual) 0 % (0-2) Band Neutrophils 6 % (0-8) Platelet Estimate Adequate Platelet Morphology Normal Anisocytosis 1+ Prothrombin Time 111.6 SEC (9.30-11.50) H 95.6 SEC (9.30-11.50) H Prothromb Time International Ratio 10.2 (0.9-1.1) *H 8.8 (0.9-1.1) *H Activated Partial Thromboplast Time 55 SEC (23-33) H Sodium Level 142 mEQ/L (135-145) Potassium Level 3.6 mEQ/L (3.4-4.9) Chloride Level 99 mEQ/L (98-107) Carbon Dioxide Level 24 mEQ/L (20-30) Anion Gap 19 (5-15) H Blood Urea Nitrogen 38 mg/dL (7-23) H Creatinine 1.6 mg/dL (0.5-0.9) H Estimat Glomerular Filtration Rate 31.8 mL/min (>60) Glucose Level 249 mg/dL (74-106) H Calcium Level 6.8 mg/dL (8.6-10.2) L Total Bilirubin 2.5 mg/dL (0.0-1.2) H Direct Bilirubin 0.7 mg/dL (0.1-0.3) H Aspartate Amino Transf (AST/SGOT) 43 U/L (5-40) H Alanine Aminotransferase (ALT/SGPT) 33 U/L (3-33) Alkaline Phosphatase 86 U/L (35-104) Total Protein 7.1 g/dL (6.6-8.7) Albumin 3.2 g/dL (3.5-5.2) L Globulin 3.9 g/dL Albumin/Globulin Ratio 0.8 (1.0-2.7) L Amylase Level 1873 U/L (10-110) *H Lipase 1515 U/L (< 60) H Height (Feet): 5 Height (Inches): 1.00 Weight (Pounds): 145 General Appearance: no apparent distress, alert, obese Cardiovascular: normal rate Respiratory/Chest: other - 2LNC Abdominal Exam: normal bowel sounds, non tender, soft Extremities: non-tender Lulu Dominguez N.PMary Dec 10, 2016 09:40 ORTEGA GIPSON Dec 10, 2016 12:46
[2016-12-10] MEDS ORDERED: Phytonadione 10 MG in NS 55 ML IVPB ONE (11:00)
[2016-12-10] MEDS ORDERED: Mylanta II UD 30ml ORAL PRN (11:00)
--- NOTE | 2016-12-10 11:32 | Pulmonology Progress Note ---
Assessment/Plan Problems: (1) Sepsis (2) Cholelithiasis (3) ATN (acute tubular necrosis) (4) Phlegmon of pancreas (5) Atrial fibrillation (6) Elevated INR Assessment/Plan afib and flutter on monitor byers cultures IV antibiotics check wbc vitamin K for elevated INR renal studies Subjective ROS Limited/Unobtainable: No Interval Events: still nauseous Allergies: Coded Allergies: No Known Allergies (Unverified , 09/28/14) Objective Last 24 Hour Vital Signs Date Time Temp Pulse Resp B/P Pulse Ox O2 Delivery O2 Flow Rate FiO2 12/10/16 09:06 101 149/66 12/10/16 09:06 101 149/66 12/10/16 09:05 101 12/10/16 08:00 97.9 101 20 149/66 94 Nasal Cannula 2.0 12/10/16 06:00 97.3 108 28 137/52 96 Nasal Cannula 2.0 12/10/16 04:05 109 12/10/16 04:00 97.5 95 22 107/64 93 Room Air 12/10/16 00:43 115 12/10/16 00:00 98.6 102 22 126/82 96 Nasal Cannula 2.0 12/09/16 20:17 99.9 103 22 115/58 97 Nasal Cannula 2.0 12/09/16 20:00 106 12/09/16 16:00 84 12/09/16 16:00 98.4 93 20 135/74 94 Nasal Cannula 2.0 12/09/16 14:28 98.2 12/09/16 12:00 87 12/09/16 12:00 98.2 83 18 148/54 97 Nasal Cannula 2.0 Intake and Output 12/09/16 12/10/16 19:00 07:00 Intake Total 500.5 ml 700.0 ml Balance 500.5 ml 700.0 ml Intake Oral 0 ml 90 ml IV Total 500.5 ml 610.0 ml # Voids 4 General Appearance: WD/WN HEENT: normocephalic, atraumatic Respiratory/Chest: chest wall non-tender, lungs clear Breasts: no masses Cardiovascular: normal peripheral pulses, normal rate Abdomen: normal bowel sounds, soft, non tender Genitourinary: normal external genitalia Extremities: no cyanosis Skin: no rash 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, no motor/sensory deficits Lymphatic: no neck adenopathy Microbiology Date/Time Source Procedure Growth Status 12/09/16 01:20 Blood Blood Culture - Preliminary NO GROWTH AFTER 24 HOURS Resulted 12/09/16 01:20 Blood Blood Culture - Preliminary NO GROWTH AFTER 24 HOURS Resulted Laboratory Tests 12/10/16 04:25: White Blood Count 27.7#*H, Red Blood Count 5.48H, Hemoglobin 16.3H, Hematocrit 52.5H, Mean Corpuscular Volume 96, Mean Corpuscular Hemoglobin 29.7, Mean Corpuscular Hemoglobin Concent 31.0L, Red Cell Distribution Width 14.5, Platelet Count 230, Mean Platelet Volume 10.1, Neutrophils (%) (Auto) , Lymphocytes (%) (Auto) , Monocytes (%) (Auto) , Eosinophils (%) (Auto) , Basophils (%) (Auto) , Differential Total Cells Counted 100, Neutrophils % ( Manual) 83H, Lymphocytes % (Manual) 6L, Monocytes % (Manual) 5, Eosinophils % ( Manual) 0, Basophils % (Manual) 0, Band Neutrophils 6, Platelet Estimate Adequate, Platelet Morphology Normal, Anisocytosis 1+, Prothrombin Time 111.6H, Prothromb Time International Ratio 10.2*H, Activated Partial Thromboplast Time 55H, Sodium Level 142, Potassium Level 3.6, Chloride Level 99, Carbon Dioxide Level 24, Anion Gap 19H, Blood Urea Nitrogen 38H, Creatinine 1.6H, Estimat Glomerular Filtration Rate 31.8, Glucose Level 249H, Calcium Level 6.8L, Total Bilirubin 2.5H, Direct Bilirubin 0.7H, Aspartate Amino Transf (AST/SGOT) 43H, Alanine Aminotransferase (ALT/SGPT) 33, Alkaline Phosphatase 86, Total Protein 7.1, Albumin 3.2L, Globulin 3.9, Albumin/Globulin Ratio 0.8L, Amylase Level 1873 *H, Lipase 1515H 12/10/16 07:45: Prothrombin Time 95.6H, Prothromb Time International Ratio 8.8*H Current Medications Medications (Trade) Dose Ordered Sig/Lisbeth Route PRN Reason Start Time Stop Time Status Last Admin Dose Admin Acetaminophen (Tylenol) 650 mg Q4H PRN ORAL fever 12/10/16 09:00 01/09/17 08:59 Al Hydroxide/Mg Hydroxide (Mylanta II) 30 ml Q6H PRN ORAL dyspepsia 12/10/16 11:00 01/09/17 10:59 Amlodipine Besylate (Norvasc) 5 mg DAILY ORAL 12/10/16 09:00 01/09/17 08:59 12/10/16 09:06 Dextrose (Dextrose 50%) STAT PRN IV Hypoglycemia 12/11/16 05:00 01/10/17 04:59 Dextrose/Sodium Chloride 1,000 ml @ 125 mls/hr Q8H IV 12/10/16 09:00 01/09/17 08:59 12/10/16 09:07 Digoxin (Lanoxin) 0.125 mg DAILY ORAL 12/10/16 09:00 01/09/17 08:59 12/10/16 09:05 Diphenhydramine HCl (Benadryl) 25 mg Q6H PRN ORAL Itching/Pruritis 12/10/16 11:00 01/09/17 10:59 Furosemide (Lasix) 80 mg DAILY ORAL 12/10/16 09:00 01/09/17 08:59 12/10/16 09:07 Metoprolol Tartrate (Lopressor) 25 mg Q12HR ORAL 12/10/16 09:00 01/09/17 08:59 12/10/16 09:06 Morphine Sulfate (Morphine Sulfate) 2 mg EVERY 4 HOURS PRN IVP severe Pain (Pain Scale 7-10) 12/10/16 09:00 12/17/16 08:59 12/10/16 06:36 Nitroglycerin (Ntg) 0.4 mg Q5M X 3 DOSES PRN SL Prn Chest Pain 12/10/16 06:15 01/09/17 06:14 Ondansetron HCl (Zofran) 4 mg Q6H PRN IVP Nausea & Vomiting 12/10/16 12:00 01/09/17 11:59 12/10/16 09:14 Phytonadione/ Sodium Chloride (Vitamin K/ Sodium Chloride) 56 ml @ 112 mls/hr ONCE ONCE IVPB 12/10/16 11:00 12/10/16 11:29 Piperacillin Sod/ Tazobactam Sod/ Sodium Chloride (Zosyn/Sodium Chloride) 110 ml @ 27.5 mls/hr EVERY 8 HOURS IVPB 12/10/16 14:00 12/17/16 13:59 Polyethylene Glycol (Miralax) 17 gm HSPRN PRN ORAL Constipation 12/11/16 05:00 01/10/17 04:59 Ranitidine HCl (Zantac) 150 mg BEDTIME ORAL 12/10/16 21:00 01/09/17 20:59 Sucralfate (Carafate) 1 gm FOUR TIMES A DAY ORAL 12/10/16 09:00 01/09/17 08:59 12/10/16 09:06 Temazepam (Restoril) 15 mg HSPRN PRN ORAL Insomnia 12/11/16 05:00 12/18/16 04:59 Warfarin Sodium 1 ea 1 ea DAILY PRN MISC Per rx protocol 12/10/16 09:00 01/09/17 08:59 TONY BRIDGES Dec 10, 2016 11:32
[2016-12-10 11:54] LABS: ALANINE AMINOTRANSFERASE 32 U/L (3-33); ALBUMIN/GLOBULIN RATIO 1.1 (1.0-2.7); ANION GAP 22 (5-15); ASPARTATE AMINO TRANSFERASE 42 U/L (5-40); CALCIUM 6.6 mg/dL (8.6-10.2); CARBON DIOXIDE 24 mEQ/L (20-30); CHLORIDE 94 mEQ/L (98-107); CREATININE 1.8 mg/dL (0.5-0.9); GLOMERULAR FILTRATION RATE 27.8 mL/min (>60); HEMOLYSIS 16; MAGNESIUM 2.2 mg/dL (1.7-2.5); PHOSPHORUS 3.8 mg/dL (2.5-4.8); POTASSIUM 3.5 mEQ/L (3.4-4.9); SODIUM 140 mEQ/L (135-145); TOTAL PROTEIN 6.3 g/dL (6.6-8.7); URIC ACID 10.4 mg/dL (3.0-7.5)
--- NOTE | 2016-12-10 12:01 | Consultation ---
Consult Note Assessment/Plan [id number] ASSESSMENT: Pancreatitis recurrent Leukocytosis ( SIRS ) ARF aortic stenosis mitral stenosis status post mitral valve replacement AFib Pulmonary hypertension PLAN: - change AB Rx to Merrem d# 1 - monitor CBC, temperatures, - Monitor culture ( BL) - monitor LFT and Pancreatic Enzymes - GI f/u, - US of liver OSCAR ANDERSON M.D. Dec 10, 2016 12:01
[2016-12-10 12:06] LABS: THYROID STIMULATING HORMONE 0.473 uIU/mL (0.300-4.500)
[2016-12-10 12:16] LABS: BILIRUBIN,DIRECT 0.9 mg/dL (0.1-0.3)
--- NOTE | 2016-12-10 12:18 | Diagnostic Imaging Report ---
Indication: Abdominal pain Technique: Boyce-scale and duplex images of the upper abdomen were obtained Comparison: 06/19/2015 Findings: . Gallbladder demonstrates cholelithiasis. This was not evident on the prior exam, although is described on a CT scan of 06/14/2015, as well as yesterday, and then MRI of 06/15/2015. Sonographic Diaz's sign is negative. Common bile duct measures 7 mm in diameter. No intrahepatic biliary ductal dilatation. Liver demonstrates normal echogenicity, no focal abnormality. It is somewhat enlarged. Portal vein and hepatic veins are patent.. Pancreas is incompletely visualized due to overlying bowel gas, visualized portions are unremarkable. Spleen is unremarkable. Left kidney measures 10 cm in length. Right kidney measures 9.8 cm length. Both kidneys demonstrate normal echogenicity. There is no hydronephrosis. No focal abnormality. . Non-aneurysmal abdominal aorta. Impression: Cholelithiasis, also previously reported. Mildly ectatic common bile duct, significance uncertain. Downstream obstruction not completely excludable. Correlate with liver function tests Borderline hepatomegaly Note inability to visualized portions of the pancreas
[2016-12-10] MEDS: Meropenem 500mg/NS 55ml IVPB SCH ×2 (13:49)
[2016-12-10] MEDS ORDERED: Meropenem 1 GM in NS 110 ML IVPB SCH (14:00)
[2016-12-10] MEDS ORDERED: Piperacillin/Tazobactam 3.375 GM in NS 110 ML IVPB SCH (14:00)
--- NOTE | 2016-12-10 15:41 | Consultation ---
Consult Note Consult Note asked to eval at the request of Dr Nair for rising creatinin Chief Complaint: Abdominal Pain Source: Patient 71-year-old female presents ED for evaluation. Patient is complaining of abdominal pain times one day. Pain as throbbing, 10 out of 10, nonradiating. Diffuse. Denies nausea or vomiting. Denies chest pain or shortness of breath. Denies fevers or chills. No other aggravating or relieving factors. 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
--- NOTE | 2016-12-10 16:24 | Diagnostic Imaging Report ---
Indication: Abnormal renal function tests, hypertension Technique: Grayscale and duplex images of the kidneys, retroperitoneum, and bladder were obtained. Comparison: Ultrasound abdomen of 12/09/2016 Findings: Right kidney measures 10.5 cm in length. Left kidney measures 10.8 cm in length. Both kidneys demonstrate normal echogenicity. No hydronephrosis. No focal abnormality. Normal inferior vena cava. Bladder is normal. Incidental finding of cholelithiasis. Technologist reports that sonographic Diaz's sign is positive. Common bile duct measures 9 mm diameter. Gallbladder wall is mildly thickened, measuring 4 mm thick.. There is trace ascites fluid. Also incidentally noted is uterine calcification Impression: Normal kidneys and bladder Incidental finding of cholelithiasis, also previously reported. However, mild gallbladder wall thickening and positive sonographic Diaz's sign raises concern for acute cholecystitis. Consider nuclear medicine hepatobiliary scan for further evaluation if clinically indicated. Trace ascites Likely old calcified uterine fibroids
[2016-12-10] MEDS: D5 1/2NS 1,000 ML IV SCH (17:43)
--- NOTE | 2016-12-10 18:47 | Cardiology Progress Note ---
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 perm afib on anticoagualtion with couamdin coagulaopathy now elevated dueot med interaction adn disease process leukocytosis ct noted u/s noted keep off couamdin may need surgery concerned about sig elevated wbc ct did not show abcess of psudocyst lipase down trending npo on ivf ivf on bb Subjective Cardiovascular: Denies: chest pain, palpitations Respiratory: Denies: SOB with excertion Gastrointestinal/Abdominal: Reports: abdominal pain, Denies: nausea Objective Last 24 Hour Vital Signs Date Time Temp Pulse Resp B/P Pulse Ox O2 Delivery O2 Flow Rate FiO2 12/10/16 16:48 97.6 12/10/16 16:00 97.6 101 20 128/55 99 Room Air 12/10/16 12:00 112 12/10/16 12:00 97.2 97 20 139/55 96 Nasal Cannula 2.0 12/10/16 09:06 101 149/66 12/10/16 09:06 101 149/66 12/10/16 09:05 101 12/10/16 08:00 97.9 101 20 149/66 94 Nasal Cannula 2.0 12/10/16 08:00 113 12/10/16 06:00 97.3 108 28 137/52 96 Nasal Cannula 2.0 12/10/16 04:05 109 12/10/16 04:00 97.5 95 22 107/64 93 Room Air 12/10/16 00:43 115 12/10/16 00:00 98.6 102 22 126/82 96 Nasal Cannula 2.0 12/09/16 20:17 99.9 103 22 115/58 97 Nasal Cannula 2.0 12/09/16 20:00 106 General Appearance: no apparent distress, alert Neck: supple Cardiovascular: irregularly irregular, other - welder railcar mechanic heart sound Respiratory/Chest: lungs clear, normal breath sounds Abdomen: tender Extremities: normal range of motion, non-tender, no swelling Intake and Output 12/09/16 12/10/16 19:00 07:00 Intake Total 500.5 ml 700.0 ml Balance 500.5 ml 700.0 ml Intake Oral 0 ml 90 ml IV Total 500.5 ml 610.0 ml # Voids 4 Laboratory Tests Test 12/10/16 04:25 12/10/16 07:45 White Blood Count 27.7 K/UL (4.8-10.8) #*H Red Blood Count 5.48 M/UL (4.20-5.40) H Hemoglobin 16.3 G/DL (12.0-16.0) H Hematocrit 52.5 % (37.0-47.0) H Mean Corpuscular Volume 96 FL (80-99) Mean Corpuscular Hemoglobin 29.7 PG (27.0-31.0) Mean Corpuscular Hemoglobin Concent 31.0 G/DL (32.0-36.0) L Red Cell Distribution Width 14.5 % (11.6-14.8) Platelet Count 230 K/UL (150-450) Mean Platelet Volume 10.1 FL (6.5-10.1) Neutrophils (%) (Auto) % (45.0-75.0) Lymphocytes (%) (Auto) % (20.0-45.0) Monocytes (%) (Auto) % (1.0-10.0) Eosinophils (%) (Auto) % (0.0-3.0) Basophils (%) (Auto) % (0.0-2.0) Differential Total Cells Counted 100 Neutrophils % (Manual) 83 % (45-75) H Lymphocytes % (Manual) 6 % (20-45) L Monocytes % (Manual) 5 % (1-10) Eosinophils % (Manual) 0 % (0-3) Basophils % (Manual) 0 % (0-2) Band Neutrophils 6 % (0-8) Platelet Estimate Adequate Platelet Morphology Normal Anisocytosis 1+ Prothrombin Time 111.6 SEC (9.30-11.50) H 95.6 SEC (9.30-11.50) H Prothromb Time International Ratio 10.2 (0.9-1.1) *H 8.8 (0.9-1.1) *H Activated Partial Thromboplast Time 55 SEC (23-33) H Sodium Level 142 mEQ/L (135-145) 140 mEQ/L (135-145) Potassium Level 3.6 mEQ/L (3.4-4.9) 3.5 mEQ/L (3.4-4.9) Chloride Level 99 mEQ/L (98-107) 94 mEQ/L (98-107) L Carbon Dioxide Level 24 mEQ/L (20-30) 24 mEQ/L (20-30) Anion Gap 19 (5-15) H 22 (5-15) H Blood Urea Nitrogen 38 mg/dL (7-23) H 42 mg/dL (7-23) H Creatinine 1.6 mg/dL (0.5-0.9) H 1.8 mg/dL (0.5-0.9) H Estimat Glomerular Filtration Rate 31.8 mL/min (>60) 27.8 mL/min (>60) Glucose Level 249 mg/dL (74-106) H 252 mg/dL (74-106) H Calcium Level 6.8 mg/dL (8.6-10.2) L 6.6 mg/dL (8.6-10.2) L Total Bilirubin 2.5 mg/dL (0.0-1.2) H 2.2 mg/dL (0.0-1.2) H Direct Bilirubin 0.7 mg/dL (0.1-0.3) H 0.9 mg/dL (0.1-0.3) H Aspartate Amino Transf (AST/SGOT) 43 U/L (5-40) H 42 U/L (5-40) H Alanine Aminotransferase (ALT/SGPT) 33 U/L (3-33) 32 U/L (3-33) Alkaline Phosphatase 86 U/L (35-104) 80 U/L (35-104) Total Protein 7.1 g/dL (6.6-8.7) 6.3 g/dL (6.6-8.7) L Albumin 3.2 g/dL (3.5-5.2) L 3.4 g/dL (3.5-5.2) L Globulin 3.9 g/dL 2.9 g/dL Albumin/Globulin Ratio 0.8 (1.0-2.7) L 1.1 (1.0-2.7) Amylase Level 1873 U/L (10-110) *H Lipase 1515 U/L (< 60) H Plasma/Serum Osmolality Pending Uric Acid 10.4 mg/dL (3.0-7.5) H Phosphorus Level 3.8 mg/dL (2.5-4.8) Magnesium Level 2.2 mg/dL (1.7-2.5) Total Creatine Kinase 112 U/L (26-140) Thyroid Stimulating Hormone (TSH) 0.473 uIU/mL (0.300-4.500) Free Thyroxine 1.53 ng/dL (0.86-1.85) Free Triiodothyronine Pending Cortisol Pending Microbiology Date/Time Source Procedure Growth Status 12/09/16 01:20 Blood Blood Culture - Preliminary NO GROWTH AFTER 24 HOURS Resulted 12/09/16 01:20 Blood Blood Culture - Preliminary NO GROWTH AFTER 24 HOURS Resulted ANNE RAM Dec 10, 2016 18:47
--- NOTE | 2016-12-10 21:08 | Consultation ---
DATE OF CONSULTATION: 12/10/2016 CONSULTING PHYSICIAN: Derick Meléndez M.D REFERRING PHYSICIAN: Dennis Mishra M.D. REASON FOR CONSULTATION: Evaluation of the patient for sepsis, pancreatis, and symptomatic management. HISTORY OF PRESENT ILLNESS: The patient is a 71-year-old old female with multiple medical problems, who has been admitted to this medical center, was admitted to this medical center with abdominal pain. The patient was diagnosed with pancreatitis. The patient had a history of pancreatitis in the past. Currently, the patient has been on IV Zosyn. Infectious Disease consultation has been requested for further evaluation of the patient and antibiotic management. PAST MEDICAL HISTORY: Significant for, 1. Pancreatitis. 2. History of low-grade fever. 3. History of cholelithiasis. 4. History of aortic stenosis and mitral stenosis. 5. History of atrial fibrillation. 6. History of pulmonary hypertension. ALLERGIES: No known drug allergies. SOCIAL HISTORY: Negative for alcohol, drug abuse, or smoking. FAMILY HISTORY: Noncontributory. REVIEW OF SYSTEMS: A 10-point review was done and except what is mentioned has been negative.HEENT: No change in vision. Pulmonary: No cough or shortness of breath. Cardiovascular: No chest pain or palpitation. Gastrointestinal: As mentioned. Also history of nausea and vomiting prior to admission. Genitourinary: No dysuria. PHYSICAL EXAMINATION: VITAL SIGNS: Temperature 97.4, pulse 86, and respiratory rate 18. HEENT: Mild pale conjunctivae. No icterus. NECK: No lymphadenopathy. CHEST: Coarse breathing sounds. HEART: S1 and S2. ABDOMEN: Soft. The patient has right upper quadrant epigastric tenderness. NEUROLOGIC: Awake and alert. LABORATORY AND DIAGNOSTIC DATA: White blood cells of 27.7, hemoglobin 16, and platelets 230,000. UA unremarkable. Hepatitis A, B, and C apparently negative. BUN 42, creatinine 1.8. unremarkable. Blood culture pending. CT scan of the abdomen shows nonnecrotizing, extensive peripancreatic fluid phlegmon and inflammation. No evidence of collection. ASSESSMENT: The patient is a 71-year-old old female with multiple medical problems, who has been admitted to this medical center and has leukocytosis. The patient would benefit from coverage with carbapenems. PLAN: 1. We will start the patient on IV meropenem. 2. Monitor CBC. 3. Monitor BMP (liver function tests). 4. Monitor amylase and lipase. 5. Referral ultrasound of the abdomen has been ordered. 6. Monitor blood culture. Based on the patient's clinical course and labs, we will do further recommendations. Thank you, Dr. Mishra, for allowing me to participate in the care of this patient. I will follow the patient with you during this hospitalization. Derick Meléndez M.D. DR: HIMANSHU JOB#: [id number] CC:
[2016-12-10 23:02] LABS: APPEARANCE,URINE CLEAR; KETONES,URINE NEGATIVE (NEGATIVE); LEUKOCYTE ESTERASE ,URINE 1+ (NEGATIVE); NITRITE,URINE NEGATIVE (NEGATIVE); PH,URINE 5 (4.5-8.0); PROTEIN,URINE 1+ (NEGATIVE); UROBILINOGEN,URINE NORMAL MG/DL (0.0-1.0)
[2016-12-10 23:23] LABS: AMORPHOUS SEDIMENT,UR MODERATE /LPF; BACTERIA,URINE FEW /HPF; SQUAMOUS EPITHELIAL CELL,UR MODERATE /LPF (NONE/OCC); WBC,URINE 0-2 /HPF (0 - 2)
--- NOTE | 2016-12-11 00:02 | Cardiology Report ---
APPROVED REPORT EKG Measurement Heart [id number] Atrial fibrillation with slow ventricular response Prolonged QT Abnormal ECG
[2016-12-11 00:04] VITALS: BP 141/58
[2016-12-11] MEDS: Meropenem 500mg/NS 55ml IVPB SCH ×4 (02:00→13:46)
[2016-12-11] MEDS: Morphine Sulfate 2mg/ml Inj IVP PRN ×3 (02:01→23:46)
[2016-12-11] MEDS: D5 1/2NS 1,000 ML IV SCH ×3 (02:30→05:09)
[2016-12-11 04:09] VITALS: BP 127/63
[2016-12-11 04:13] LABS: FREE TRIIODOTHYRONINE 3.2 pg/mL (2.0-4.4)
[2016-12-11] MEDS ORDERED: Miralax 17gm pkt ORAL PRN (05:00)
[2016-12-11 08:10] LABS: BASOPHILS % (AUTO) 0.9 % (0.0-2.0); LYMPHOCYTES % (AUTO) 9.8 % (20.0-45.0); MEAN CORPUSCULAR HGB CONC 31.8 G/DL (32.0-36.0); MEAN CORPUSCULAR VOLUME 94 FL (80-99); MEAN PLATELET VOLUME 10.7 FL (6.5-10.1); MONOCYTES % (AUTO) 6.7 % (1.0-10.0); NEUTROPHILS % (AUTO) 82.6 % (45.0-75.0); PLATELET COUNT 202 K/UL (150-450); RED BLOOD COUNT 4.82 M/UL (4.20-5.40); RED CELL DISTRIBUTION WIDTH 13.8 % (11.6-14.8); WHITE BLOOD COUNT 15.4 K/UL (4.8-10.8)
[2016-12-11 08:13] LABS: CORTISOL LC 25.5 ug/dL (.)
[2016-12-11 08:15] VITALS: BP 138/65
[2016-12-11 08:21] LABS: HEMOGLOBIN A1C 6.8 % (< 6.0)
[2016-12-11] MEDS: Sucralfate 1gm tab ORAL SCH ×4 (08:22→21:45)
[2016-12-11] MEDS: Metoprolol 25mg tab ORAL SCH ×2 (08:22→21:46)
[2016-12-11] MEDS: Digoxin 0.125mg tab ORAL SCH (08:23)
[2016-12-11 08:32] LABS: ALBUMIN/GLOBULIN RATIO 0.7 (1.0-2.7); CALCIUM 7.4 mg/dL (8.6-10.2); CHOLESTEROL/HDL RATIO 6.3 (3.3-4.4); CREATININE 1.5 mg/dL (0.5-0.9); GLOMERULAR FILTRATION RATE 34.4 mL/min (>60); POTASSIUM 3.2 mEQ/L (3.4-4.9); TOTAL PROTEIN 6.5 g/dL (6.6-8.7)
[2016-12-11 08:33] LABS: INR 1.3 (0.9-1.1); PROTHROMBIN TIME 12.8 SEC (9.30-11.50)
[2016-12-11 08:34] LABS: MAGNESIUM 2.4 mg/dL (1.7-2.5); PHOSPHORUS 2.9 mg/dL (2.5-4.8); URIC ACID 11.3 mg/dL (3.0-7.5)
[2016-12-11 08:45] LABS: BILIRUBIN,DIRECT 0.5 mg/dL (0.1-0.3)
[2016-12-11 08:51] LABS: CRP QUANT 34.8 mg/dL (< 0.5)
--- NOTE | 2016-12-11 09:24 | GI Progress Note ---
Assessment/Plan Problems: (1) Pancreatitis ICD Codes: K85.9 - Acute pancreatitis, unspecified SNOMED: 08832503 Qualifiers: Qualified Codes: K85.10 - Biliary acute pancreatitis without necrosis or infection (2) Abdominal pain ICD Codes: R10.9 - Unspecified abdominal pain SNOMED: 24300078, [id number] (3) Iron deficiency anemia ICD Codes: D50.9 - Iron deficiency anemia, unspecified SNOMED: 13660682 (4) Colon polyp ICD Codes: K63.5 - Polyp of colon SNOMED: 65047686 Status: progressing Status Narrative Discussed with Dr. Gipson. Assessment/Plan elevated lipase >> downtrending lipid panel >> normal triglycerides ordered MRCP fu abd U/S maintain NPO + IVFs pain mgmt abx repeat LFTs, lipase Subjective Subjective abdominal pain >> improved Objective Last 24 Hour Vital Signs Date Time Temp Pulse Resp B/P Pulse Ox O2 Delivery O2 Flow Rate FiO2 12/11/16 08:23 103 12/11/16 08:23 103 138/65 12/11/16 08:22 103 138/65 12/11/16 08:15 98.1 103 20 138/65 95 Room Air 12/11/16 04:09 98.1 97 18 127/63 96 Room Air 12/11/16 04:00 100 12/11/16 00:04 98.5 93 19 141/58 93 Room Air 12/11/16 00:00 97 12/10/16 22:18 97.5 12/10/16 21:48 109 129/72 12/10/16 20:00 102 12/10/16 20:00 97.5 109 22 129/72 98 Room Air 12/10/16 16:00 97.6 101 20 128/55 99 Room Air 12/10/16 16:00 100 12/10/16 12:00 112 12/10/16 12:00 97.2 97 20 139/55 96 Nasal Cannula 2.0 Intake and Output 12/10/16 12/11/16 19:00 07:00 Intake Total 100 ml 1055 ml Output Total 700 ml Balance 100 ml 355 ml IV Total 100 ml 1055 ml Output Urine Total 700 ml # Voids 2 # Bowel Movements 2 Laboratory Tests Test 12/10/16 21:50 12/11/16 05:00 12/11/16 07:49 Urine Color Yellow Urine Appearance Clear Urine pH 5 (4.5-8.0) Urine Specific [place] 1.010 (1.005-1.035) Urine Protein 1+ (NEGATIVE) H Urine Glucose (UA) Negative (NEGATIVE) Urine Ketones Negative (NEGATIVE) Urine Occult Blood 2+ (NEGATIVE) H Urine Nitrite Negative (NEGATIVE) Urine Bilirubin Negative (NEGATIVE) Urine Urobilinogen Normal MG/DL (0.0-1.0) Urine Leukocyte Esterase 1+ (NEGATIVE) H Urine RBC 2-4 /HPF (0 - 2) H Urine WBC 0-2 /HPF (0 - 2) Urine Squamous Epithelial Cells Moderate /LPF (NONE/OCC) H Urine Amorphous Sediment Moderate /LPF (NONE) H Urine Bacteria Few /HPF (NONE) Urine Eosinophils None seen None seen Urine Osmolality Pending Urine Random Sodium 10 mmol/L Urine Random Chloride 14 mmol/L Urine Potassium Timed 31 mmol/L White Blood Count 15.4 K/UL (4.8-10.8) H Red Blood Count 4.82 M/UL (4.20-5.40) Hemoglobin 14.5 G/DL (12.0-16.0) Hematocrit 45.5 % (37.0-47.0) Mean Corpuscular Volume 94 FL (80-99) Mean Corpuscular Hemoglobin 30.0 PG (27.0-31.0) Mean Corpuscular Hemoglobin Concent 31.8 G/DL (32.0-36.0) L Red Cell Distribution Width 13.8 % (11.6-14.8) Platelet Count 202 K/UL (150-450) Mean Platelet Volume 10.7 FL (6.5-10.1) H Neutrophils (%) (Auto) 82.6 % (45.0-75.0) H Lymphocytes (%) (Auto) 9.8 % (20.0-45.0) L Monocytes (%) (Auto) 6.7 % (1.0-10.0) Eosinophils (%) (Auto) 0.0 % (0.0-3.0) Basophils (%) (Auto) 0.9 % (0.0-2.0) Prothrombin Time 12.8 SEC (9.30-11.50) H Prothromb Time International Ratio 1.3 (0.9-1.1) H Sodium Level 142 mEQ/L (135-145) Potassium Level 3.2 mEQ/L (3.4-4.9) L Chloride Level 100 mEQ/L (98-107) Carbon Dioxide Level 26 mEQ/L (20-30) Anion Gap 16 (5-15) H Blood Urea Nitrogen 59 mg/dL (7-23) H Creatinine 1.5 mg/dL (0.5-0.9) H Estimat Glomerular Filtration Rate 34.4 mL/min (>60) Glucose Level 223 mg/dL (74-106) H Hemoglobin A1c 6.8 % (< 6.0) H Uric Acid 11.3 mg/dL (3.0-7.5) H Calcium Level 7.4 mg/dL (8.6-10.2) L Phosphorus Level 2.9 mg/dL (2.5-4.8) Magnesium Level 2.4 mg/dL (1.7-2.5) Total Bilirubin 2.2 mg/dL (0.0-1.2) H Direct Bilirubin 0.5 mg/dL (0.1-0.3) H Gamma Glutamyl Transpeptidase 100 U/L (5-36) H Aspartate Amino Transf (AST/SGOT) 31 U/L (5-40) Alanine Aminotransferase (ALT/SGPT) 21 U/L (3-33) Alkaline Phosphatase 86 U/L (35-104) Total Creatine Kinase 151 U/L (26-140) H C-Reactive Protein, Quantitative 34.8 mg/dL (< 0.5) H Pro-B-Type Natriuretic Peptide 2988 pg/mL (0-125) H Total Protein 6.5 g/dL (6.6-8.7) L Albumin 2.8 g/dL (3.5-5.2) L Globulin 3.7 g/dL Albumin/Globulin Ratio 0.7 (1.0-2.7) L Triglycerides Level 146 mg/dL (< 150) Cholesterol Level 69 mg/dL (< 200) LDL Cholesterol 29 mg/dL (60-99) L HDL Cholesterol 11 mg/dL (> 60) Cholesterol/HDL Ratio 6.3 (3.3-4.4) H Amylase Level 1010 U/L (10-110) *H Lipase 418 U/L (< 60) H Height (Feet): 5 Height (Inches): 1.00 Weight (Pounds): 145 General Appearance: no apparent distress, alert, overweight Cardiovascular: normal rate, tachycardia Respiratory/Chest: normal breath sounds, no respiratory distress Abdominal Exam: normal bowel sounds, non tender, soft Lulu Dominguez N.P. Dec 11, 2016 09:24
--- NOTE | 2016-12-11 11:10 | Infectious Diseases Prog Note ---
Assessment/Plan Assessment/Plan ASSESSMENT: Pancreatitis recurrent Pancreatic Enzymes improving Leukocytosis ( SIRS ) improving ? Cholecystitis : US of liver : Incidental finding of cholelithiasis and mild gallbladder wall thickening positive sonographic Diaz's sign \ LFT : Nl ARF improving aortic stenosis mitral stenosis status post mitral valve replacement AFib Pulmonary hypertension PLAN: - cont Merrem d# 2 - monitor CBC, temperatures, - Monitor culture ( BL) - monitor LFT and - GI f/u - MRCP : P Subjective Gastrointestinal/Abdominal: Reports: other - abd pain Allergies: Coded Allergies: No Known Allergies (Unverified , 09/28/14) Objective Vital Signs Last 24 Hour Vital Signs Date Time Temp Pulse Resp B/P Pulse Ox O2 Delivery O2 Flow Rate FiO2 12/11/16 08:23 103 12/11/16 08:23 103 138/65 12/11/16 08:22 103 138/65 12/11/16 08:15 98.1 103 20 138/65 95 Room Air 12/11/16 04:09 98.1 97 18 127/63 96 Room Air 12/11/16 04:00 100 12/11/16 00:04 98.5 93 19 141/58 93 Room Air 12/11/16 00:00 97 12/10/16 22:18 97.5 12/10/16 21:48 109 129/72 12/10/16 20:00 102 12/10/16 20:00 97.5 109 22 129/72 98 Room Air 12/10/16 16:00 97.6 101 20 128/55 99 Room Air 12/10/16 16:00 100 12/10/16 12:00 112 12/10/16 12:00 97.2 97 20 139/55 96 Nasal Cannula 2.0 Height (Feet): 5 Height (Inches): 1.00 Weight (Pounds): 145 HEENT: anicteric Respiratory/Chest: no respiratory distress Cardiovascular: regular rhythm Abdomen: no organomegaly, tender Microbiology Date/Time Source Procedure Growth Status 12/09/16 01:20 Blood Blood Culture - Preliminary NO GROWTH AFTER 48 HOURS Resulted 12/09/16 01:20 Blood Blood Culture - Preliminary NO GROWTH AFTER 48 HOURS Resulted Laboratory Tests Test 12/10/16 21:50 12/11/16 05:00 12/11/16 07:49 Urine Color Yellow Urine Appearance Clear Urine pH 5 (4.5-8.0) Urine Specific [place] 1.010 (1.005-1.035) Urine Protein 1+ (NEGATIVE) H Urine Glucose (UA) Negative (NEGATIVE) Urine Ketones Negative (NEGATIVE) Urine Occult Blood 2+ (NEGATIVE) H Urine Nitrite Negative (NEGATIVE) Urine Bilirubin Negative (NEGATIVE) Urine Urobilinogen Normal MG/DL (0.0-1.0) Urine Leukocyte Esterase 1+ (NEGATIVE) H Urine RBC 2-4 /HPF (0 - 2) H Urine WBC 0-2 /HPF (0 - 2) Urine Squamous Epithelial Cells Moderate /LPF (NONE/OCC) H Urine Amorphous Sediment Moderate /LPF (NONE) H Urine Bacteria Few /HPF (NONE) Urine Eosinophils None seen None seen Urine Osmolality Pending Urine Random Sodium 10 mmol/L Urine Random Chloride 14 mmol/L Urine Potassium Timed 31 mmol/L White Blood Count 15.4 K/UL (4.8-10.8) H Red Blood Count 4.82 M/UL (4.20-5.40) Hemoglobin 14.5 G/DL (12.0-16.0) Hematocrit 45.5 % (37.0-47.0) Mean Corpuscular Volume 94 FL (80-99) Mean Corpuscular Hemoglobin 30.0 PG (27.0-31.0) Mean Corpuscular Hemoglobin Concent 31.8 G/DL (32.0-36.0) L Red Cell Distribution Width 13.8 % (11.6-14.8) Platelet Count 202 K/UL (150-450) Mean Platelet Volume 10.7 FL (6.5-10.1) H Neutrophils (%) (Auto) 82.6 % (45.0-75.0) H Lymphocytes (%) (Auto) 9.8 % (20.0-45.0) L Monocytes (%) (Auto) 6.7 % (1.0-10.0) Eosinophils (%) (Auto) 0.0 % (0.0-3.0) Basophils (%) (Auto) 0.9 % (0.0-2.0) Prothrombin Time 12.8 SEC (9.30-11.50) H Prothromb Time International Ratio 1.3 (0.9-1.1) H Sodium Level 142 mEQ/L (135-145) Potassium Level 3.2 mEQ/L (3.4-4.9) L Chloride Level 100 mEQ/L (98-107) Carbon Dioxide Level 26 mEQ/L (20-30) Anion Gap 16 (5-15) H Blood Urea Nitrogen 59 mg/dL (7-23) H Creatinine 1.5 mg/dL (0.5-0.9) H Estimat Glomerular Filtration Rate 34.4 mL/min (>60) Glucose Level 223 mg/dL (74-106) H Hemoglobin A1c 6.8 % (< 6.0) H Uric Acid 11.3 mg/dL (3.0-7.5) H Calcium Level 7.4 mg/dL (8.6-10.2) L Phosphorus Level 2.9 mg/dL (2.5-4.8) Magnesium Level 2.4 mg/dL (1.7-2.5) Total Bilirubin 2.2 mg/dL (0.0-1.2) H Direct Bilirubin 0.5 mg/dL (0.1-0.3) H Gamma Glutamyl Transpeptidase 100 U/L (5-36) H Aspartate Amino Transf (AST/SGOT) 31 U/L (5-40) Alanine Aminotransferase (ALT/SGPT) 21 U/L (3-33) Alkaline Phosphatase 86 U/L (35-104) Total Creatine Kinase 151 U/L (26-140) H C-Reactive Protein, Quantitative 34.8 mg/dL (< 0.5) H Pro-B-Type Natriuretic Peptide 2988 pg/mL (0-125) H Total Protein 6.5 g/dL (6.6-8.7) L Albumin 2.8 g/dL (3.5-5.2) L Globulin 3.7 g/dL Albumin/Globulin Ratio 0.7 (1.0-2.7) L Triglycerides Level 146 mg/dL (< 150) Cholesterol Level 69 mg/dL (< 200) LDL Cholesterol 29 mg/dL (60-99) L HDL Cholesterol 11 mg/dL (> 60) Cholesterol/HDL Ratio 6.3 (3.3-4.4) H Amylase Level 1010 U/L (10-110) *H Lipase 418 U/L (< 60) H Current Medications Medications (Trade) Dose Ordered Sig/Lisbeth Route PRN Reason Start Time Stop Time Status Last Admin Dose Admin Acetaminophen (Tylenol) 650 mg Q4H PRN ORAL fever 12/10/16 09:00 01/09/17 08:59 Amlodipine Besylate (Norvasc) 5 mg DAILY ORAL 12/10/16 09:00 01/09/17 08:59 12/11/16 08:23 Dextrose (Dextrose 50%) STAT PRN IV Hypoglycemia 12/11/16 05:00 01/10/17 04:59 Dextrose/Sodium Chloride (D5 0.45% NS) 1,000 ml @ 100 mls/hr Q10H IV 12/10/16 16:30 01/09/17 16:29 12/11/16 05:09 Digoxin (Lanoxin) 0.125 mg DAILY ORAL 12/10/16 09:00 01/09/17 08:59 12/11/16 08:23 Meropenem 500 mg/ Sodium Chloride 55 ml @ 110 mls/hr Q12HR@0100,1300 IVPB 12/10/16 13:00 12/15/16 12:59 12/11/16 02:00 Metoprolol Tartrate (Lopressor) 25 mg Q12HR ORAL 12/10/16 09:00 01/09/17 08:59 12/11/16 08:22 Morphine Sulfate (Morphine Sulfate) 2 mg EVERY 4 HOURS PRN IVP severe Pain (Pain Scale 7-10) 12/10/16 09:00 12/17/16 08:59 12/11/16 02:01 Nitroglycerin (Ntg) 0.4 mg Q5M X 3 DOSES PRN SL Prn Chest Pain 12/10/16 06:15 01/09/17 06:14 Ondansetron HCl (Zofran) 4 mg Q6H PRN IVP Nausea & Vomiting 12/10/16 12:00 01/09/17 11:59 12/10/16 09:14 Pantoprazole (Protonix) 40 mg EVERY 12 HOURS ORAL 12/10/16 21:00 01/09/17 20:59 12/11/16 08:23 Polyethylene Glycol (Miralax) 17 gm HSPRN PRN ORAL Constipation 12/11/16 05:00 01/10/17 04:59 Sucralfate (Carafate) 1 gm FOUR TIMES A DAY ORAL 12/10/16 09:00 01/09/17 08:59 12/11/16 08:22 Temazepam 15 mg 15 mg HSPRN PRN ORAL Insomnia 12/11/16 05:00 12/18/16 04:59 OSCAR ANDERSON M.D. Dec 11, 2016 11:10
[2016-12-11 11:19] VITALS: BP 132/69
--- NOTE | 2016-12-11 14:47 | Pulmonology Progress Note ---
Assessment/Plan Problems: (1) Sepsis (2) Cholelithiasis (3) ATN (acute tubular necrosis) (4) Phlegmon of pancreas (5) Atrial fibrillation (6) Elevated INR Assessment/Plan afib and flutter on monitor byers cultures IV antibiotics wbc decreasing increase morphine check wbc vitamin K for elevated INR renal studies Subjective ROS Limited/Unobtainable: No Interval Events: comfortable Allergies: Coded Allergies: No Known Allergies (Unverified , 09/28/14) Objective Last 24 Hour Vital Signs Date Time Temp Pulse Resp B/P Pulse Ox O2 Delivery O2 Flow Rate FiO2 12/11/16 12:00 108 12/11/16 11:19 97.7 70 21 132/69 97 Room Air 12/11/16 08:23 103 12/11/16 08:23 103 138/65 12/11/16 08:22 103 138/65 12/11/16 08:15 98.1 103 20 138/65 95 Room Air 12/11/16 08:00 110 12/11/16 04:09 98.1 97 18 127/63 96 Room Air 12/11/16 04:00 100 12/11/16 00:04 98.5 93 19 141/58 93 Room Air 12/11/16 00:00 97 12/10/16 22:18 97.5 12/10/16 21:48 109 129/72 12/10/16 20:00 102 12/10/16 20:00 97.5 109 22 129/72 98 Room Air 12/10/16 16:00 97.6 101 20 128/55 99 Room Air 12/10/16 16:00 100 Intake and Output 12/10/16 12/11/16 19:00 07:00 Intake Total 100 ml 1055 ml Output Total 700 ml Balance 100 ml 355 ml IV Total 100 ml 1055 ml Output Urine Total 700 ml # Voids 2 # Bowel Movements 2 General Appearance: WD/WN HEENT: normocephalic Respiratory/Chest: chest wall non-tender, lungs clear Breasts: no masses Cardiovascular: normal peripheral pulses Abdomen: normal bowel sounds, soft, non tender Genitourinary: normal external genitalia Extremities: no clubbing 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 Lymphatic: no neck adenopathy Microbiology Date/Time Source Procedure Growth Status 12/09/16 01:20 Blood Blood Culture - Preliminary NO GROWTH AFTER 48 HOURS Resulted 12/09/16 01:20 Blood Blood Culture - Preliminary NO GROWTH AFTER 48 HOURS Resulted Laboratory Tests 12/10/16 21:50: Urine Color Yellow, Urine Appearance Clear, Urine pH 5, Urine Specific [place] 1.010, Urine Protein 1+H, Urine Glucose (UA) Negative, Urine Ketones Negative, Urine Occult Blood 2+H, Urine Nitrite Negative, Urine Bilirubin Negative, Urine Urobilinogen Normal, Urine Leukocyte Esterase 1+H, Urine RBC 2-4H, Urine WBC 0-2 , Urine Squamous Epithelial Cells ModerateH, Urine Amorphous Sediment ModerateH , Urine Bacteria Few, Urine Eosinophils None seen, Urine Osmolality [Pending], Urine Random Sodium 10, Urine Random Chloride 14, Urine Potassium Timed 31 12/11/16 05:00: Urine Eosinophils None seen 12/11/16 07:49: White Blood Count 15.4H, Red Blood Count 4.82, Hemoglobin 14.5, Hematocrit 45.5 , Mean Corpuscular Volume 94, Mean Corpuscular Hemoglobin 30.0, Mean Corpuscular Hemoglobin Concent 31.8L, Red Cell Distribution Width 13.8, Platelet Count 202, Mean Platelet Volume 10.7H, Neutrophils (%) (Auto) 82.6H, Lymphocytes (%) (Auto) 9.8L, Monocytes (%) (Auto) 6.7, Eosinophils (%) (Auto) 0.0, Basophils (%) (Auto) 0.9, Prothrombin Time 12.8H, Prothromb Time International Ratio 1.3H, Sodium Level 142, Potassium Level 3.2L, Chloride Level 100, Carbon Dioxide Level 26, Anion Gap 16H, Blood Urea Nitrogen 59H, Creatinine 1.5H, Estimat Glomerular Filtration Rate 34.4, Glucose Level 223H, Hemoglobin A1c 6.8H, Uric Acid 11.3H, Calcium Level 7.4L, Phosphorus Level 2.9, Magnesium Level 2.4, Total Bilirubin 2.2H, Direct Bilirubin 0.5H, Gamma Glutamyl Transpeptidase 100H, Aspartate Amino Transf (AST/SGOT) 31, Alanine Aminotransferase (ALT/SGPT) 21, Alkaline Phosphatase 86, Total Creatine Kinase 151H, C-Reactive Protein, Quantitative 34.8H, Pro-B-Type Natriuretic Peptide 2988H, Total Protein 6.5L, Albumin 2.8L, Globulin 3.7, Albumin/Globulin Ratio 0.7L, Triglycerides Level 146, Cholesterol Level 69, LDL Cholesterol 29L, HDL Cholesterol 11, Cholesterol/HDL Ratio 6.3H, Amylase Level 1010*H, Lipase 418H Current Medications Medications (Trade) Dose Ordered Sig/Lisbeth Route PRN Reason Start Time Stop Time Status Last Admin Dose Admin Acetaminophen (Tylenol) 650 mg Q4H PRN ORAL fever 12/10/16 09:00 01/09/17 08:59 Amlodipine Besylate (Norvasc) 5 mg DAILY ORAL 12/10/16 09:00 01/09/17 08:59 12/11/16 08:23 Dextrose (Dextrose 50%) STAT PRN IV Hypoglycemia 12/11/16 05:00 01/10/17 04:59 Dextrose/Sodium Chloride (D5 0.45% NS) 1,000 ml @ 100 mls/hr Q10H IV 12/10/16 16:30 01/09/17 16:29 12/11/16 05:09 Digoxin (Lanoxin) 0.125 mg DAILY ORAL 12/10/16 09:00 01/09/17 08:59 12/11/16 08:23 Meropenem 500 mg/ Sodium Chloride 55 ml @ 110 mls/hr Q12HR@0100,1300 IVPB 12/10/16 13:00 12/11/16 23:59 12/11/16 13:46 Meropenem/Sodium Chloride (Merrem/Sodium Chloride) 110 ml @ 220 mls/hr Q12HR@0100,1300 IVPB 12/12/16 01:00 12/17/16 00:59 Metoprolol Tartrate (Lopressor) 25 mg Q12HR ORAL 12/10/16 09:00 01/09/17 08:59 12/11/16 08:22 Morphine Sulfate (Morphine Sulfate) 4 mg EVERY 4 HOURS PRN IVP severe Pain (Pain Scale 7-10) 12/11/16 14:45 12/18/16 14:44 UNV Nitroglycerin (Ntg) 0.4 mg Q5M X 3 DOSES PRN SL Prn Chest Pain 12/10/16 06:15 01/09/17 06:14 Ondansetron HCl (Zofran) 4 mg Q6H PRN IVP Nausea & Vomiting 12/10/16 12:00 01/09/17 11:59 12/10/16 09:14 Pantoprazole 40 mg 40 mg EVERY 12 HOURS ORAL 12/10/16 21:00 01/09/17 20:59 12/11/16 08:23 Polyethylene Glycol (Miralax) 17 gm HSPRN PRN ORAL Constipation 12/11/16 05:00 01/10/17 04:59 Sucralfate (Carafate) 1 gm FOUR TIMES A DAY ORAL 12/10/16 09:00 01/09/17 08:59 12/11/16 13:46 Temazepam 15 mg 15 mg HSPRN PRN ORAL Insomnia 12/11/16 05:00 12/18/16 04:59 TONY BRIDGES Dec 11, 2016 14:47
--- NOTE | 2016-12-11 14:49 | Pulmonology Progress Note ---
Assessment/Plan Problems: (1) Sepsis (2) Cholelithiasis (3) ATN (acute tubular necrosis) (4) Phlegmon of pancreas (5) Atrial fibrillation (6) Elevated INR Assessment/Plan afib and flutter on monitor byers cultures IV antibiotics wbc decreasing increase morphine check wbc vitamin K for elevated INR renal studies Subjective Interval Events: still in pain Allergies: Coded Allergies: No Known Allergies (Unverified , 09/28/14) Objective Last 24 Hour Vital Signs Date Time Temp Pulse Resp B/P Pulse Ox O2 Delivery O2 Flow Rate FiO2 12/11/16 12:00 108 12/11/16 11:19 97.7 70 21 132/69 97 Room Air 12/11/16 08:23 103 12/11/16 08:23 103 138/65 12/11/16 08:22 103 138/65 12/11/16 08:15 98.1 103 20 138/65 95 Room Air 12/11/16 08:00 110 12/11/16 04:09 98.1 97 18 127/63 96 Room Air 12/11/16 04:00 100 12/11/16 00:04 98.5 93 19 141/58 93 Room Air 12/11/16 00:00 97 12/10/16 22:18 97.5 12/10/16 21:48 109 129/72 12/10/16 20:00 102 12/10/16 20:00 97.5 109 22 129/72 98 Room Air 12/10/16 16:00 97.6 101 20 128/55 99 Room Air 12/10/16 16:00 100 Intake and Output 12/10/16 12/11/16 19:00 07:00 Intake Total 100 ml 1055 ml Output Total 700 ml Balance 100 ml 355 ml IV Total 100 ml 1055 ml Output Urine Total 700 ml # Voids 2 # Bowel Movements 2 General Appearance: WD/WN HEENT: normocephalic, anicteric Respiratory/Chest: chest wall non-tender, lungs clear Cardiovascular: normal peripheral pulses, regular rhythm Abdomen: normal bowel sounds, soft, non tender Skin: no rash 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, alert Lymphatic: no neck adenopathy Microbiology Date/Time Source Procedure Growth Status 12/09/16 01:20 Blood Blood Culture - Preliminary NO GROWTH AFTER 48 HOURS Resulted 12/09/16 01:20 Blood Blood Culture - Preliminary NO GROWTH AFTER 48 HOURS Resulted Laboratory Tests 12/10/16 21:50: Urine Color Yellow, Urine Appearance Clear, Urine pH 5, Urine Specific [place] 1.010, Urine Protein 1+H, Urine Glucose (UA) Negative, Urine Ketones Negative, Urine Occult Blood 2+H, Urine Nitrite Negative, Urine Bilirubin Negative, Urine Urobilinogen Normal, Urine Leukocyte Esterase 1+H, Urine RBC 2-4H, Urine WBC 0-2 , Urine Squamous Epithelial Cells ModerateH, Urine Amorphous Sediment ModerateH , Urine Bacteria Few, Urine Eosinophils None seen, Urine Osmolality [Pending], Urine Random Sodium 10, Urine Random Chloride 14, Urine Potassium Timed 31 12/11/16 05:00: Urine Eosinophils None seen 12/11/16 07:49: White Blood Count 15.4H, Red Blood Count 4.82, Hemoglobin 14.5, Hematocrit 45.5 , Mean Corpuscular Volume 94, Mean Corpuscular Hemoglobin 30.0, Mean Corpuscular Hemoglobin Concent 31.8L, Red Cell Distribution Width 13.8, Platelet Count 202, Mean Platelet Volume 10.7H, Neutrophils (%) (Auto) 82.6H, Lymphocytes (%) (Auto) 9.8L, Monocytes (%) (Auto) 6.7, Eosinophils (%) (Auto) 0.0, Basophils (%) (Auto) 0.9, Prothrombin Time 12.8H, Prothromb Time International Ratio 1.3H, Sodium Level 142, Potassium Level 3.2L, Chloride Level 100, Carbon Dioxide Level 26, Anion Gap 16H, Blood Urea Nitrogen 59H, Creatinine 1.5H, Estimat Glomerular Filtration Rate 34.4, Glucose Level 223H, Hemoglobin A1c 6.8H, Uric Acid 11.3H, Calcium Level 7.4L, Phosphorus Level 2.9, Magnesium Level 2.4, Total Bilirubin 2.2H, Direct Bilirubin 0.5H, Gamma Glutamyl Transpeptidase 100H, Aspartate Amino Transf (AST/SGOT) 31, Alanine Aminotransferase (ALT/SGPT) 21, Alkaline Phosphatase 86, Total Creatine Kinase 151H, C-Reactive Protein, Quantitative 34.8H, Pro-B-Type Natriuretic Peptide 2988H, Total Protein 6.5L, Albumin 2.8L, Globulin 3.7, Albumin/Globulin Ratio 0.7L, Triglycerides Level 146, Cholesterol Level 69, LDL Cholesterol 29L, HDL Cholesterol 11, Cholesterol/HDL Ratio 6.3H, Amylase Level 1010*H, Lipase 418H Current Medications Medications (Trade) Dose Ordered Sig/Lisbeth Route PRN Reason Start Time Stop Time Status Last Admin Dose Admin Acetaminophen (Tylenol) 650 mg Q4H PRN ORAL fever 12/10/16 09:00 01/09/17 08:59 Amlodipine Besylate (Norvasc) 5 mg DAILY ORAL 12/10/16 09:00 01/09/17 08:59 12/11/16 08:23 Dextrose (Dextrose 50%) STAT PRN IV Hypoglycemia 12/11/16 05:00 01/10/17 04:59 Dextrose/Sodium Chloride (D5 0.45% NS) 1,000 ml @ 100 mls/hr Q10H IV 12/10/16 16:30 01/09/17 16:29 12/11/16 05:09 Digoxin (Lanoxin) 0.125 mg DAILY ORAL 12/10/16 09:00 01/09/17 08:59 12/11/16 08:23 Meropenem 500 mg/ Sodium Chloride 55 ml @ 110 mls/hr Q12HR@0100,1300 IVPB 12/10/16 13:00 12/11/16 23:59 12/11/16 13:46 Meropenem/Sodium Chloride (Merrem/Sodium Chloride) 110 ml @ 220 mls/hr Q12HR@0100,1300 IVPB 12/12/16 01:00 12/17/16 00:59 Metoprolol Tartrate (Lopressor) 25 mg Q12HR ORAL 12/10/16 09:00 01/09/17 08:59 12/11/16 08:22 Morphine Sulfate (Morphine Sulfate) 4 mg EVERY 4 HOURS PRN IVP severe Pain (Pain Scale 7-10) 12/11/16 14:45 12/18/16 14:44 UNV Nitroglycerin (Ntg) 0.4 mg Q5M X 3 DOSES PRN SL Prn Chest Pain 12/10/16 06:15 01/09/17 06:14 Ondansetron HCl (Zofran) 4 mg Q6H PRN IVP Nausea & Vomiting 12/10/16 12:00 01/09/17 11:59 12/10/16 09:14 Pantoprazole 40 mg 40 mg EVERY 12 HOURS ORAL 12/10/16 21:00 01/09/17 20:59 12/11/16 08:23 Polyethylene Glycol (Miralax) 17 gm HSPRN PRN ORAL Constipation 12/11/16 05:00 01/10/17 04:59 Sucralfate (Carafate) 1 gm FOUR TIMES A DAY ORAL 12/10/16 09:00 01/09/17 08:59 12/11/16 13:46 Temazepam 15 mg 15 mg HSPRN PRN ORAL Insomnia 12/11/16 05:00 12/18/16 04:59 TONY BRIDGES Dec 11, 2016 14:49
--- NOTE | 2016-12-11 15:11 | General Progress Note ---
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 Vavle prosthesis on anticoagulation Pulmonary HTN Plan: Mathias Urine studies- Keep BP under control Avoid nephrotoxics K supplement monitor renal parameters Subjective ROS Limited/Unobtainable: No Constitutional: Reports: malaise, weakness Gastrointestinal/Abdominal: Reports: abdominal pain Allergies: Coded Allergies: No Known Allergies (Unverified , 09/28/14) Objective Last 24 Hour Vital Signs Date Time Temp Pulse Resp B/P Pulse Ox O2 Delivery O2 Flow Rate FiO2 12/11/16 12:00 108 12/11/16 11:19 97.7 70 21 132/69 97 Room Air 12/11/16 08:23 103 12/11/16 08:23 103 138/65 12/11/16 08:22 103 138/65 12/11/16 08:15 98.1 103 20 138/65 95 Room Air 12/11/16 08:00 110 12/11/16 04:09 98.1 97 18 127/63 96 Room Air 12/11/16 04:00 100 12/11/16 00:04 98.5 93 19 141/58 93 Room Air 12/11/16 00:00 97 12/10/16 22:18 97.5 12/10/16 21:48 109 129/72 12/10/16 20:00 102 12/10/16 20:00 97.5 109 22 129/72 98 Room Air 12/10/16 16:00 97.6 101 20 128/55 99 Room Air 12/10/16 16:00 100 Intake and Output 12/10/16 12/11/16 19:00 07:00 Intake Total 100 ml 1055 ml Output Total 700 ml Balance 100 ml 355 ml IV Total 100 ml 1055 ml Output Urine Total 700 ml # Voids 2 # Bowel Movements 2 Laboratory Tests 12/10/16 21:50: Urine Color Yellow, Urine Appearance Clear, Urine pH 5, Urine Specific [place] 1.010, Urine Protein 1+H, Urine Glucose (UA) Negative, Urine Ketones Negative, Urine Occult Blood 2+H, Urine Nitrite Negative, Urine Bilirubin Negative, Urine Urobilinogen Normal, Urine Leukocyte Esterase 1+H, Urine RBC 2-4H, Urine WBC 0-2 , Urine Squamous Epithelial Cells ModerateH, Urine Amorphous Sediment ModerateH , Urine Bacteria Few, Urine Eosinophils None seen, Urine Osmolality [Pending], Urine Random Sodium 10, Urine Random Chloride 14, Urine Potassium Timed 31 12/11/16 05:00: Urine Eosinophils None seen 12/11/16 07:49: White Blood Count 15.4H, Red Blood Count 4.82, Hemoglobin 14.5, Hematocrit 45.5 , Mean Corpuscular Volume 94, Mean Corpuscular Hemoglobin 30.0, Mean Corpuscular Hemoglobin Concent 31.8L, Red Cell Distribution Width 13.8, Platelet Count 202, Mean Platelet Volume 10.7H, Neutrophils (%) (Auto) 82.6H, Lymphocytes (%) (Auto) 9.8L, Monocytes (%) (Auto) 6.7, Eosinophils (%) (Auto) 0.0, Basophils (%) (Auto) 0.9, Prothrombin Time 12.8H, Prothromb Time International Ratio 1.3H, Sodium Level 142, Potassium Level 3.2L, Chloride Level 100, Carbon Dioxide Level 26, Anion Gap 16H, Blood Urea Nitrogen 59H, Creatinine 1.5H, Estimat Glomerular Filtration Rate 34.4, Glucose Level 223H, Hemoglobin A1c 6.8H, Uric Acid 11.3H, Calcium Level 7.4L, Phosphorus Level 2.9, Magnesium Level 2.4, Total Bilirubin 2.2H, Direct Bilirubin 0.5H, Gamma Glutamyl Transpeptidase 100H, Aspartate Amino Transf (AST/SGOT) 31, Alanine Aminotransferase (ALT/SGPT) 21, Alkaline Phosphatase 86, Total Creatine Kinase 151H, C-Reactive Protein, Quantitative 34.8H, Pro-B-Type Natriuretic Peptide 2988H, Total Protein 6.5L, Albumin 2.8L, Globulin 3.7, Albumin/Globulin Ratio 0.7L, Triglycerides Level 146, Cholesterol Level 69, LDL Cholesterol 29L, HDL Cholesterol 11, Cholesterol/HDL Ratio 6.3H, Amylase Level 1010*H, Lipase 418H Height (Feet): 5 Height (Inches): 1.00 Weight (Pounds): 145 General Appearance: mild distress Cardiovascular: tachycardia Respiratory/Chest: decreased breath sounds Abdomen: distended Objective other PE not changed KAMINI SNOW Dec 11, 2016 15:11
--- NOTE | 2016-12-11 15:13 | Diagnostic Imaging Report ---
Indication: Abdominal pain, possible pancreatitis Technique: Coronal and axial single shot fast spin-echo breath-hold, axial T2 FRFSE, 2-D thick slab MRCP, AXIAL 2-D FIESTA fat saturated, axial 3-D dual echo breath-hold, water weighted axial LAVA FLEX, 2-D thick slab 3-D MRCP images were obtained of the abdomen. MIP reconstructions were generated of the bile ducts Comparison: CT dated 12/08/2016, ultrasound dated 2016, MRI dated 06/15/2015 Findings: Multiple calcifications are seen within the gallbladder. There is a ductal structure cephalad to the gallbladder which contains a filling defect. This is probably the cystic duct, but could be an extrahepatic bile duct, and it is uncertain which of these is. The gallbladder wall is not thickened. The extrahepatic bile ducts are ectatic, with the common bile duct measuring up to 9 mm diameter, but no downstream filling defects are demonstrated. The common bile duct terminates abruptly at the level of the ampulla. The pancreatic duct is mildly ectatic, measuring 3-4 mm in diameter. No intraluminal filling defects are demonstrated. A 7 mm fluid signal lesion is seen within the uncinate process of the pancreas. This may actually be a duodenal diverticulum which is seen on the recent CT scan. There is apparent swelling of the pancreas and considerable free intraperitoneal fluid. No free intraperitoneal fluid presumably increased from the prior CT scan. There are dilated small bowel loops, likely indicating ileus. The liver is unremarkable. The adrenals and kidneys are unremarkable. There are bilateral small pleural effusions. The spleen is unremarkable. The heart is enlarged Impression: Cholelithiasis. There is also a calculus within the duct adjacent to the gallbladder which is probably the cystic duct but could be an extrahepatic bile duct. Extrahepatic and central intrahepatic biliary ductal mild dilatation. No definite downstream calculus or pancreatic head mass to account for this, however. Prominence and edema of the pancreas, better visualized on prior CT scan, consistent with acute pancreatitis, also previously described Ascites fluid, increased from the prior CT scan, likely secondary to the acute pancreatitis Dilated small bowel loops, new since prior CT study. Suspect representing ileus related to the pancreatitis Bilateral small pleural effusions Small cystic lesion within the as a process. Suspect that this is actually the duodenal diverticulum described on recent CT scan, but could represent a tiny pseudocyst or intraductal papillary mucinous neoplasm. Cardiomegaly
[2016-12-11 16:00] VITALS: BP 140/62
--- NOTE | 2016-12-11 17:13 | Cardiology Progress Note ---
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 prosthesis on anticoagulation perm afib on anticoagualtion with couamdin coagulaopathy now elevated dueot med interaction adn disease process leukocytosis mri noted keep off couamdin start heparin when inr less than 2.2 may need surgery wbc amylase lipas and renal fucntion better but deos have more chf findign on bb heplock ivf for a few hous then low dose lsaix for wow Subjective Cardiovascular: Denies: chest pain, lightheadedness Respiratory: Denies: shortness of breath Gastrointestinal/Abdominal: Denies: abdominal pain Genitourinary: Denies: burning Objective Last 24 Hour Vital Signs Date Time Temp Pulse Resp B/P Pulse Ox O2 Delivery O2 Flow Rate FiO2 12/11/16 16:00 97.5 95 20 140/62 90 Room Air 12/11/16 12:00 108 12/11/16 11:19 97.7 70 21 132/69 97 Room Air 12/11/16 08:23 103 12/11/16 08:23 103 138/65 12/11/16 08:22 103 138/65 12/11/16 08:15 98.1 103 20 138/65 95 Room Air 12/11/16 08:00 110 12/11/16 04:09 98.1 97 18 127/63 96 Room Air 12/11/16 04:00 100 12/11/16 00:04 98.5 93 19 141/58 93 Room Air 12/11/16 00:00 97 12/10/16 22:18 97.5 12/10/16 21:48 109 129/72 12/10/16 20:00 102 12/10/16 20:00 97.5 109 22 129/72 98 Room Air General Appearance: alert Neck: supple Cardiovascular: tachycardia, irregularly irregular Respiratory/Chest: crackles/rales Abdomen: normal bowel sounds, non tender, soft Extremities: no swelling Intake and Output 12/10/16 12/11/16 19:00 07:00 Intake Total 100 ml 1055 ml Output Total 700 ml Balance 100 ml 355 ml IV Total 100 ml 1055 ml Output Urine Total 700 ml # Voids 2 # Bowel Movements 2 Laboratory Tests Test 12/10/16 21:50 12/11/16 05:00 12/11/16 07:49 Urine Color Yellow Urine Appearance Clear Urine pH 5 (4.5-8.0) Urine Specific [place] 1.010 (1.005-1.035) Urine Protein 1+ (NEGATIVE) H Urine Glucose (UA) Negative (NEGATIVE) Urine Ketones Negative (NEGATIVE) Urine Occult Blood 2+ (NEGATIVE) H Urine Nitrite Negative (NEGATIVE) Urine Bilirubin Negative (NEGATIVE) Urine Urobilinogen Normal MG/DL (0.0-1.0) Urine Leukocyte Esterase 1+ (NEGATIVE) H Urine RBC 2-4 /HPF (0 - 2) H Urine WBC 0-2 /HPF (0 - 2) Urine Squamous Epithelial Cells Moderate /LPF (NONE/OCC) H Urine Amorphous Sediment Moderate /LPF (NONE) H Urine Bacteria Few /HPF (NONE) Urine Eosinophils None seen None seen Urine Osmolality Pending Urine Random Sodium 10 mmol/L Urine Random Chloride 14 mmol/L Urine Potassium Timed 31 mmol/L White Blood Count 15.4 K/UL (4.8-10.8) H Red Blood Count 4.82 M/UL (4.20-5.40) Hemoglobin 14.5 G/DL (12.0-16.0) Hematocrit 45.5 % (37.0-47.0) Mean Corpuscular Volume 94 FL (80-99) Mean Corpuscular Hemoglobin 30.0 PG (27.0-31.0) Mean Corpuscular Hemoglobin Concent 31.8 G/DL (32.0-36.0) L Red Cell Distribution Width 13.8 % (11.6-14.8) Platelet Count 202 K/UL (150-450) Mean Platelet Volume 10.7 FL (6.5-10.1) H Neutrophils (%) (Auto) 82.6 % (45.0-75.0) H Lymphocytes (%) (Auto) 9.8 % (20.0-45.0) L Monocytes (%) (Auto) 6.7 % (1.0-10.0) Eosinophils (%) (Auto) 0.0 % (0.0-3.0) Basophils (%) (Auto) 0.9 % (0.0-2.0) Prothrombin Time 12.8 SEC (9.30-11.50) H Prothromb Time International Ratio 1.3 (0.9-1.1) H Sodium Level 142 mEQ/L (135-145) Potassium Level 3.2 mEQ/L (3.4-4.9) L Chloride Level 100 mEQ/L (98-107) Carbon Dioxide Level 26 mEQ/L (20-30) Anion Gap 16 (5-15) H Blood Urea Nitrogen 59 mg/dL (7-23) H Creatinine 1.5 mg/dL (0.5-0.9) H Estimat Glomerular Filtration Rate 34.4 mL/min (>60) Glucose Level 223 mg/dL (74-106) H Hemoglobin A1c 6.8 % (< 6.0) H Uric Acid 11.3 mg/dL (3.0-7.5) H Calcium Level 7.4 mg/dL (8.6-10.2) L Phosphorus Level 2.9 mg/dL (2.5-4.8) Magnesium Level 2.4 mg/dL (1.7-2.5) Total Bilirubin 2.2 mg/dL (0.0-1.2) H Direct Bilirubin 0.5 mg/dL (0.1-0.3) H Gamma Glutamyl Transpeptidase 100 U/L (5-36) H Aspartate Amino Transf (AST/SGOT) 31 U/L (5-40) Alanine Aminotransferase (ALT/SGPT) 21 U/L (3-33) Alkaline Phosphatase 86 U/L (35-104) Total Creatine Kinase 151 U/L (26-140) H C-Reactive Protein, Quantitative 34.8 mg/dL (< 0.5) H Pro-B-Type Natriuretic Peptide 2988 pg/mL (0-125) H Total Protein 6.5 g/dL (6.6-8.7) L Albumin 2.8 g/dL (3.5-5.2) L Globulin 3.7 g/dL Albumin/Globulin Ratio 0.7 (1.0-2.7) L Triglycerides Level 146 mg/dL (< 150) Cholesterol Level 69 mg/dL (< 200) LDL Cholesterol 29 mg/dL (60-99) L HDL Cholesterol 11 mg/dL (> 60) Cholesterol/HDL Ratio 6.3 (3.3-4.4) H Amylase Level 1010 U/L (10-110) *H Lipase 418 U/L (< 60) H Microbiology Date/Time Source Procedure Growth Status 12/09/16 01:20 Blood Blood Culture - Preliminary NO GROWTH AFTER 48 HOURS Resulted 12/09/16 01:20 Blood Blood Culture - Preliminary NO GROWTH AFTER 48 HOURS Resulted ANNE RAM Dec 11, 2016 17:12
[2016-12-11] MEDS ORDERED: Heparin 5000 units/ml inj IV ONE (18:15)
[2016-12-11 18:19] LABS: LYMPHOCYTES % (AUTO) 9.8 % (20.0-45.0); MEAN CORPUSCULAR HEMOGLOBIN 29.8 PG (27.0-31.0); MEAN CORPUSCULAR HGB CONC 31.3 G/DL (32.0-36.0); MEAN CORPUSCULAR VOLUME 95 FL (80-99); MEAN PLATELET VOLUME 8.9 FL (6.5-10.1); MONOCYTES % (AUTO) 6.8 % (1.0-10.0); NEUTROPHILS % (AUTO) 82.4 % (45.0-75.0); PLATELET COUNT 163 K/UL (150-450); RED BLOOD COUNT 4.53 M/UL (4.20-5.40); WHITE BLOOD COUNT 14.6 K/UL (4.8-10.8)
[2016-12-11] MEDS ORDERED: Potassium Chloride 40 MEQ in D5W 275 ML IV ONE (18:30)
[2016-12-11] MEDS ORDERED: Heparin 25,000u/D5W 500ml 500 ML IV SCH (18:30)
[2016-12-11 20:00] VITALS: BP 150/67
[2016-12-12 00:08] VITALS: BP 123/63
[2016-12-12] MEDS: Meropenem 1gm/NS 110ml IVPB SCH ×4 (01:30→12:03)
[2016-12-12 02:06] LABS: INR 1.2 (0.9-1.1); PROTHROMBIN TIME 11.9 SEC (9.30-11.50)
[2016-12-12 03:26] LABS: BASOPHILS % (AUTO) 0.6 % (0.0-2.0); LYMPHOCYTES % (AUTO) 12.9 % (20.0-45.0); MEAN CORPUSCULAR HEMOGLOBIN 29.5 PG (27.0-31.0); MEAN CORPUSCULAR HGB CONC 31.4 G/DL (32.0-36.0); MEAN CORPUSCULAR VOLUME 94 FL (80-99); MEAN PLATELET VOLUME 9.5 FL (6.5-10.1); MONOCYTES % (AUTO) 8.2 % (1.0-10.0); NEUTROPHILS % (AUTO) 78.3 % (45.0-75.0); PLATELET COUNT 184 K/UL (150-450); RED BLOOD COUNT 4.57 M/UL (4.20-5.40); RED CELL DISTRIBUTION WIDTH 13.7 % (11.6-14.8); WHITE BLOOD COUNT 13.9 K/UL (4.8-10.8)
[2016-12-12 03:39] LABS: ALBUMIN/GLOBULIN RATIO 0.9 (1.0-2.7); CALCIUM 7.4 mg/dL (8.6-10.2); CREATININE 1.2 mg/dL (0.5-0.9); GLOMERULAR FILTRATION RATE 44.4 mL/min (>60); POTASSIUM 4.1 mEQ/L (3.4-4.9); TOTAL PROTEIN 5.6 g/dL (6.6-8.7)
[2016-12-12] MEDS ORDERED: Heparin 5000 units/ml inj IV ONE ×3 (04:00→21:00)
[2016-12-12 04:02] VITALS: BP 129/75
[2016-12-12] MEDS: Heparin 25,000u/D5W 500ml 500 ML IV SCH ×3 (04:14→21:23)
[2016-12-12] MEDS: Morphine Sulfate 2mg/ml Inj IVP PRN ×4 (04:21→21:31)
[2016-12-12 04:56] LABS: BILIRUBIN,DIRECT 0.6 mg/dL (0.1-0.3)
[2016-12-12 05:03] LABS: CRP QUANT 34.8 mg/dL (< 0.5); MAGNESIUM 2.6 mg/dL (1.7-2.5); PHOSPHORUS 2.7 mg/dL (2.5-4.8); URIC ACID 11.5 mg/dL (3.0-7.5)
[2016-12-12] MEDS: D5 1/2NS 1,000 ML IV SCH ×2 (08:30→19:19)
[2016-12-12] MEDS: Digoxin 0.125mg tab ORAL SCH (08:32)
[2016-12-12] MEDS: Sucralfate 1gm tab ORAL SCH ×4 (08:32→21:30)
[2016-12-12] MEDS: Metoprolol 25mg tab ORAL SCH ×2 (08:32→21:10)
[2016-12-12 08:34] VITALS: BP 126/63
--- NOTE | 2016-12-12 09:47 | General Progress Note ---
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 Mirtral Vavle prosthesis on anticoagulation Pulmonary HTN Plan: Mathias Urine studies- Keep BP under control Avoid nephrotoxics K supplement monitor renal parameters Subjective ROS Limited/Unobtainable: No Allergies: Coded Allergies: No Known Allergies (Unverified , 09/28/14) Objective Last 24 Hour Vital Signs Date Time Temp Pulse Resp B/P Pulse Ox O2 Delivery O2 Flow Rate FiO2 12/12/16 09:04 98.6 12/12/16 08:34 97.3 91 18 126/63 95 Room Air 12/12/16 08:32 80 129/75 12/12/16 08:32 80 12/12/16 08:32 80 129/75 12/12/16 04:02 98.6 80 18 129/75 96 Room Air 12/12/16 04:00 91 12/12/16 00:08 98.4 86 19 123/63 92 Room Air 12/12/16 00:00 83 12/11/16 21:46 115 150/67 12/11/16 20:00 100 12/11/16 20:00 97.7 115 22 150/67 92 Room Air 12/11/16 16:00 98 12/11/16 16:00 97.5 95 20 140/62 90 Room Air 12/11/16 12:00 108 12/11/16 11:19 97.7 70 21 132/69 97 Room Air Intake and Output 12/11/16 12/12/16 19:00 07:00 Intake Total 800 ml 168.374 ml Output Total 500 ml 900 ml Balance 300 ml -731.626 ml IV Total 800 ml 168.374 ml Output Urine Total 500 ml 900 ml Laboratory Tests 12/11/16 17:35: White Blood Count 14.6H, Red Blood Count 4.53, Hemoglobin 13.5, Hematocrit 43.1 , Mean Corpuscular Volume 95, Mean Corpuscular Hemoglobin 29.8, Mean Corpuscular Hemoglobin Concent 31.3L, Red Cell Distribution Width 14.0, Platelet Count 163, Mean Platelet Volume 8.9, Neutrophils (%) (Auto) 82.4H, Lymphocytes (%) (Auto) 9.8L, Monocytes (%) (Auto) 6.8, Eosinophils (%) (Auto) 0.0, Basophils (%) (Auto) 1.0, Activated Partial Thromboplast Time 34H 12/12/16 01:30: White Blood Count 13.9H, Red Blood Count 4.57, Hemoglobin 13.5, Hematocrit 43.0 , Mean Corpuscular Volume 94, Mean Corpuscular Hemoglobin 29.5, Mean Corpuscular Hemoglobin Concent 31.4L, Red Cell Distribution Width 13.7, Platelet Count 184, Mean Platelet Volume 9.5, Neutrophils (%) (Auto) 78.3H, Lymphocytes (%) (Auto) 12.9L, Monocytes (%) (Auto) 8.2, Eosinophils (%) (Auto) 0.0, Basophils (%) (Auto) 0.6, Activated Partial Thromboplast Time 38H, Prothrombin Time 11.9H, Prothromb Time International Ratio 1.2H, Sodium Level 143, Potassium Level 4.1, Chloride Level 103, Carbon Dioxide Level 26, Anion Gap 14, Blood Urea Nitrogen 62H, Creatinine 1.2H, Estimat Glomerular Filtration Rate 44.4, Glucose Level 184H, Uric Acid 11.5H, Calcium Level 7.4L, Phosphorus Level 2.7, Magnesium Level 2.6H, Total Bilirubin 2.1H, Direct Bilirubin 0.6H, Gamma Glutamyl Transpeptidase 83H, Aspartate Amino Transf (AST/SGOT) 28, Alanine Aminotransferase (ALT/SGPT) 18, Alkaline Phosphatase 71, C-Reactive Protein, Quantitative 34.8H, Pro-B-Type Natriuretic Peptide 1672H, Total Protein 5.6L, Albumin 2.7L, Globulin 2.9, Albumin/Globulin Ratio 0.9L, Amylase Level 521*H, Lipase 159H 12/12/16 02:40: Urine Eosinophils None seen Height (Feet): 5 Height (Inches): 1.00 Weight (Pounds): 145 General Appearance: no apparent distress Objective other PE not changed KAMINI SNOW Dec 12, 2016 09:47
--- NOTE | 2016-12-12 10:55 | GI Progress Note ---
Assessment/Plan Problems: (1) Pancreatitis ICD Codes: K85.9 - Acute pancreatitis, unspecified SNOMED: 91390280 Qualifiers: Qualified Codes: K85.10 - Biliary acute pancreatitis without necrosis or infection (2) Abdominal pain ICD Codes: R10.9 - Unspecified abdominal pain SNOMED: 47845810, [id number] (3) Iron deficiency anemia ICD Codes: D50.9 - Iron deficiency anemia, unspecified SNOMED: 22105497 (4) Colon polyp ICD Codes: K63.5 - Polyp of colon SNOMED: 60611950 Status: stable Status Narrative Discussed with Dr. Gipson. Assessment/Plan elevated lipase >> downtrending lipid panel >> normal triglycerides MRCP reviewed >> pt may require surgery maintain NPO + IVFs pain mgmt abx monitor lipase >> downtrending Subjective Subjective abdominal pain >> improving Objective Last 24 Hour Vital Signs Date Time Temp Pulse Resp B/P Pulse Ox O2 Delivery O2 Flow Rate FiO2 12/12/16 09:04 98.6 12/12/16 08:34 97.3 91 18 126/63 95 Room Air 12/12/16 08:32 80 129/75 12/12/16 08:32 80 12/12/16 08:32 80 129/75 12/12/16 08:00 103 12/12/16 04:02 98.6 80 18 129/75 96 Room Air 12/12/16 04:00 91 12/12/16 00:08 98.4 86 19 123/63 92 Room Air 12/12/16 00:00 83 12/11/16 21:46 115 150/67 12/11/16 20:00 100 12/11/16 20:00 97.7 115 22 150/67 92 Room Air 12/11/16 16:00 98 12/11/16 16:00 97.5 95 20 140/62 90 Room Air 12/11/16 12:00 108 12/11/16 11:19 97.7 70 21 132/69 97 Room Air Intake and Output 12/11/16 12/12/16 19:00 07:00 Intake Total 800 ml 168.374 ml Output Total 500 ml 900 ml Balance 300 ml -731.626 ml IV Total 800 ml 168.374 ml Output Urine Total 500 ml 900 ml Laboratory Tests Test 12/11/16 17:35 12/12/16 01:30 12/12/16 02:40 White Blood Count 14.6 K/UL (4.8-10.8) H 13.9 K/UL (4.8-10.8) H Red Blood Count 4.53 M/UL (4.20-5.40) 4.57 M/UL (4.20-5.40) Hemoglobin 13.5 G/DL (12.0-16.0) 13.5 G/DL (12.0-16.0) Hematocrit 43.1 % (37.0-47.0) 43.0 % (37.0-47.0) Mean Corpuscular Volume 95 FL (80-99) 94 FL (80-99) Mean Corpuscular Hemoglobin 29.8 PG (27.0-31.0) 29.5 PG (27.0-31.0) Mean Corpuscular Hemoglobin Concent 31.3 G/DL (32.0-36.0) L 31.4 G/DL (32.0-36.0) L Red Cell Distribution Width 14.0 % (11.6-14.8) 13.7 % (11.6-14.8) Platelet Count 163 K/UL (150-450) 184 K/UL (150-450) Mean Platelet Volume 8.9 FL (6.5-10.1) 9.5 FL (6.5-10.1) Neutrophils (%) (Auto) 82.4 % (45.0-75.0) H 78.3 % (45.0-75.0) H Lymphocytes (%) (Auto) 9.8 % (20.0-45.0) L 12.9 % (20.0-45.0) L Monocytes (%) (Auto) 6.8 % (1.0-10.0) 8.2 % (1.0-10.0) Eosinophils (%) (Auto) 0.0 % (0.0-3.0) 0.0 % (0.0-3.0) Basophils (%) (Auto) 1.0 % (0.0-2.0) 0.6 % (0.0-2.0) Activated Partial Thromboplast Time 34 SEC (23-33) H 38 SEC (23-33) H Prothrombin Time 11.9 SEC (9.30-11.50) H Prothromb Time International Ratio 1.2 (0.9-1.1) H Sodium Level 143 mEQ/L (135-145) Potassium Level 4.1 mEQ/L (3.4-4.9) Chloride Level 103 mEQ/L (98-107) Carbon Dioxide Level 26 mEQ/L (20-30) Anion Gap 14 (5-15) Blood Urea Nitrogen 62 mg/dL (7-23) H Creatinine 1.2 mg/dL (0.5-0.9) H Estimat Glomerular Filtration Rate 44.4 mL/min (>60) Glucose Level 184 mg/dL (74-106) H Uric Acid 11.5 mg/dL (3.0-7.5) H Calcium Level 7.4 mg/dL (8.6-10.2) L Phosphorus Level 2.7 mg/dL (2.5-4.8) Magnesium Level 2.6 mg/dL (1.7-2.5) H Total Bilirubin 2.1 mg/dL (0.0-1.2) H Direct Bilirubin 0.6 mg/dL (0.1-0.3) H Gamma Glutamyl Transpeptidase 83 U/L (5-36) H Aspartate Amino Transf (AST/SGOT) 28 U/L (5-40) Alanine Aminotransferase (ALT/SGPT) 18 U/L (3-33) Alkaline Phosphatase 71 U/L (35-104) C-Reactive Protein, Quantitative 34.8 mg/dL (< 0.5) H Pro-B-Type Natriuretic Peptide 1672 pg/mL (0-125) H Total Protein 5.6 g/dL (6.6-8.7) L Albumin 2.7 g/dL (3.5-5.2) L Globulin 2.9 g/dL Albumin/Globulin Ratio 0.9 (1.0-2.7) L Amylase Level 521 U/L (10-110) *H Lipase 159 U/L (< 60) H Urine Eosinophils None seen Height (Feet): 5 Height (Inches): 1.00 Weight (Pounds): 145 General Appearance: no apparent distress, alert, overweight Cardiovascular: normal rate Respiratory/Chest: normal breath sounds, no respiratory distress Abdominal Exam: normal bowel sounds, non tender, soft Objective Service Date: 12/11/16 Procedure: MRI Abdomen no Contrast Indication: Abdominal pain, possible pancreatitis Findings: Multiple calcifications are seen within the gallbladder. There is a ductal structure cephalad to the gallbladder which contains a filling defect. This is probably the cystic duct, but could be an extrahepatic bile duct, and it is uncertain which of these is. The gallbladder wall is not thickened. The extrahepatic bile ducts are ectatic, with the common bile duct measuring up to 9 mm diameter , but no downstream filling defects are demonstrated. The common bile duct terminates abruptly at the level of the ampulla. The pancreatic duct is mildly ectatic, measuring 3-4 mm in diameter. No intraluminal filling defects are demonstrated. A 7 mm fluid signal lesion is seen within the uncinate process of the pancreas. This may actually be a duodenal diverticulum which is seen on the recent CT scan. There is apparent swelling of the pancreas and considerable free intraperitoneal fluid. No free intraperitoneal fluid presumably increased from the prior CT scan. There are dilated small bowel loops, likely indicating ileus. The liver is unremarkable. The adrenals and kidneys are unremarkable. There are bilateral small pleural effusions. The spleen is unremarkable. The heart is enlarged Impression: Cholelithiasis. There is also a calculus within the duct adjacent to the gallbladder which is probably the cystic duct but could be an extrahepatic bile duct. Extrahepatic and central intrahepatic biliary ductal mild dilatation. No definite downstream calculus or pancreatic head mass to account for this, however. Prominence and edema of the pancreas, better visualized on prior CT scan, consistent with acute pancreatitis, also previously described Ascites fluid, increased from the prior CT scan, likely secondary to the acute pancreatitis Dilated small bowel loops, new since prior CT study. Suspect representing ileus related to the pancreatitis Bilateral small pleural effusions Small cystic lesion within the as a process. Suspect that this is actually the duodenal diverticulum described on recent CT scan, but could represent a tiny pseudocyst or intraductal papillary mucinous neoplasm. Cardiomegaly Lulu Dominguez N.P. Dec 12, 2016 10:55
[2016-12-12 11:21] VITALS: BP 137/51
--- NOTE | 2016-12-12 12:29 | Pulmonology Progress Note ---
Assessment/Plan Problems: (1) Sepsis (2) Cholelithiasis (3) ATN (acute tubular necrosis) (4) Phlegmon of pancreas (5) Atrial fibrillation (6) Elevated INR Assessment/Plan amylase and lipase trending down afib and flutter on monitor byers cultures IV antibiotics wbc decreasing increase morphine check wbc vitamin K for elevated INR renal studies, improving Subjective Interval Events: no new complains Allergies: Coded Allergies: No Known Allergies (Unverified , 09/28/14) Objective Last 24 Hour Vital Signs Date Time Temp Pulse Resp B/P Pulse Ox O2 Delivery O2 Flow Rate FiO2 12/12/16 11:21 97.0 88 20 137/51 94 Room Air 12/12/16 09:04 98.6 12/12/16 08:34 97.3 91 18 126/63 95 Room Air 12/12/16 08:32 80 129/75 12/12/16 08:32 80 12/12/16 08:32 80 129/75 12/12/16 08:00 103 12/12/16 04:02 98.6 80 18 129/75 96 Room Air 12/12/16 04:00 91 12/12/16 00:08 98.4 86 19 123/63 92 Room Air 12/12/16 00:00 83 12/11/16 21:46 115 150/67 12/11/16 20:00 100 12/11/16 20:00 97.7 115 22 150/67 92 Room Air 12/11/16 16:00 98 12/11/16 16:00 97.5 95 20 140/62 90 Room Air Intake and Output 12/11/16 12/12/16 19:00 07:00 Intake Total 800 ml 168.374 ml Output Total 500 ml 900 ml Balance 300 ml -731.626 ml IV Total 800 ml 168.374 ml Output Urine Total 500 ml 900 ml General Appearance: WD/WN HEENT: normocephalic, atraumatic Respiratory/Chest: chest wall non-tender, lungs clear Abdomen: normal bowel sounds, soft, non tender Genitourinary: normal external genitalia Extremities: no clubbing Skin: no rash Laboratory Tests 12/11/16 17:35: White Blood Count 14.6H, Red Blood Count 4.53, Hemoglobin 13.5, Hematocrit 43.1 , Mean Corpuscular Volume 95, Mean Corpuscular Hemoglobin 29.8, Mean Corpuscular Hemoglobin Concent 31.3L, Red Cell Distribution Width 14.0, Platelet Count 163, Mean Platelet Volume 8.9, Neutrophils (%) (Auto) 82.4H, Lymphocytes (%) (Auto) 9.8L, Monocytes (%) (Auto) 6.8, Eosinophils (%) (Auto) 0.0, Basophils (%) (Auto) 1.0, Activated Partial Thromboplast Time 34H 12/12/16 01:30: White Blood Count 13.9H, Red Blood Count 4.57, Hemoglobin 13.5, Hematocrit 43.0 , Mean Corpuscular Volume 94, Mean Corpuscular Hemoglobin 29.5, Mean Corpuscular Hemoglobin Concent 31.4L, Red Cell Distribution Width 13.7, Platelet Count 184, Mean Platelet Volume 9.5, Neutrophils (%) (Auto) 78.3H, Lymphocytes (%) (Auto) 12.9L, Monocytes (%) (Auto) 8.2, Eosinophils (%) (Auto) 0.0, Basophils (%) (Auto) 0.6, Activated Partial Thromboplast Time 38H, Prothrombin Time 11.9H, Prothromb Time International Ratio 1.2H, Sodium Level 143, Potassium Level 4.1, Chloride Level 103, Carbon Dioxide Level 26, Anion Gap 14, Blood Urea Nitrogen 62H, Creatinine 1.2H, Estimat Glomerular Filtration Rate 44.4, Glucose Level 184H, Uric Acid 11.5H, Calcium Level 7.4L, Phosphorus Level 2.7, Magnesium Level 2.6H, Total Bilirubin 2.1H, Direct Bilirubin 0.6H, Gamma Glutamyl Transpeptidase 83H, Aspartate Amino Transf (AST/SGOT) 28, Alanine Aminotransferase (ALT/SGPT) 18, Alkaline Phosphatase 71, C-Reactive Protein, Quantitative 34.8H, Pro-B-Type Natriuretic Peptide 1672H, Total Protein 5.6L, Albumin 2.7L, Globulin 2.9, Albumin/Globulin Ratio 0.9L, Amylase Level 521*H, Lipase 159H 12/12/16 02:40: Urine Eosinophils None seen 12/12/16 10:30: Activated Partial Thromboplast Time 48H Current Medications Medications (Trade) Dose Ordered Sig/Lisbeth Route PRN Reason Start Time Stop Time Status Last Admin Dose Admin Acetaminophen (Tylenol) 650 mg Q4H PRN ORAL fever 12/10/16 09:00 01/09/17 08:59 Amlodipine Besylate (Norvasc) 5 mg DAILY ORAL 12/10/16 09:00 01/09/17 08:59 12/12/16 08:32 Dextrose (Dextrose 50%) STAT PRN IV Hypoglycemia 12/11/16 05:00 01/10/17 04:59 Dextrose/Sodium Chloride (D5 0.45% NS) 1,000 ml @ 100 mls/hr Q10H IV 12/10/16 16:30 01/09/17 16:29 12/11/16 02:35 Digoxin (Lanoxin) 0.125 mg DAILY ORAL 12/10/16 09:00 01/09/17 08:59 12/12/16 08:32 Heparin Sodium/ Dextrose (Heparin) 500 ml @ 26.308 mls/ hr adjust per protocol IV 12/12/16 04:02 01/10/17 18:29 12/12/16 12:02 Meropenem/Sodium Chloride (Merrem/Sodium Chloride) 110 ml @ 220 mls/hr Q12HR@0100,1300 IVPB 12/12/16 01:00 12/17/16 00:59 12/12/16 12:03 Metoprolol Tartrate 37.5 mg 37.5 mg Q12HR ORAL 12/11/16 21:00 01/10/17 20:59 12/12/16 08:32 Morphine Sulfate (Morphine Sulfate) 4 mg Q4H PRN IVP Severe Pain (Pain Scale 7-10) 12/11/16 14:45 12/18/16 14:44 12/12/16 08:34 Nitroglycerin (Ntg) 0.4 mg Q5M X 3 DOSES PRN SL Prn Chest Pain 12/10/16 06:15 01/09/17 06:14 Ondansetron HCl (Zofran) 4 mg Q6H PRN IVP Nausea & Vomiting 12/10/16 12:00 01/09/17 11:59 12/10/16 09:14 Pantoprazole 40 mg 40 mg EVERY 12 HOURS ORAL 12/10/16 21:00 01/09/17 20:59 12/12/16 08:32 Polyethylene Glycol (Miralax) 17 gm HSPRN PRN ORAL Constipation 12/11/16 05:00 01/10/17 04:59 Sucralfate (Carafate) 1 gm FOUR TIMES A DAY ORAL 12/10/16 09:00 01/09/17 08:59 12/12/16 08:32 Temazepam 15 mg 15 mg HSPRN PRN ORAL Insomnia 12/11/16 05:00 12/18/16 04:59 TONY BRIDGES Dec 12, 2016 12:29
[2016-12-12] MEDS ORDERED: Tubing IV Secondary IV ONE (14:24)
[2016-12-12] MEDS ORDERED: D5 1/2NS 1000ml IV ONE (14:24)
[2016-12-12 16:00] VITALS: BP 124/60
--- NOTE | 2016-12-12 19:37 | Cardiology Progress Note ---
Assessment/Plan Status: stable, progressing Status Narrative Pt w/ mech MVR, bioprost avr, af (? permanent) Adm w/ pancreatitis -- parameters , incl amylase, wbc, improving. rec'd iv lasix x 1 w/ improvement in pulm congestion. Assessment/Plan Continue npo/ iv hydration. Continue iv heparin for mechanical mvr and AF Diuretics prn for vol overload. followup labs in am d/w RN Subjective ROS Limited/Unobtainable: No Subjective Pt w/ mild abd pain . no n/v. no c/o dyspnea Objective Last 24 Hour Vital Signs Date Time Temp Pulse Resp B/P Pulse Ox O2 Delivery O2 Flow Rate FiO2 12/12/16 16:00 97.7 92 20 124/60 92 Room Air 12/12/16 13:30 97.0 12/12/16 12:00 93 12/12/16 11:21 97.0 88 20 137/51 94 Room Air 12/12/16 08:34 97.3 91 18 126/63 95 Room Air 12/12/16 08:32 80 129/75 12/12/16 08:32 80 12/12/16 08:32 80 129/75 12/12/16 08:00 103 12/12/16 04:02 98.6 80 18 129/75 96 Room Air 12/12/16 04:00 91 12/12/16 00:08 98.4 86 19 123/63 92 Room Air 12/12/16 00:00 83 12/11/16 21:46 115 150/67 12/11/16 20:00 100 12/11/16 20:00 97.7 115 22 150/67 92 Room Air General Appearance: WD/WN, no apparent distress, obese EENT: PERRL/EOMI Neck: supple, no JVD Rhythm: Afib Cardiovascular: normal rate, systolic murmur - i/iv trev along lsb, irregularly irregular Respiratory/Chest: lungs clear - clear anteriorly Abdomen: soft, decreased bowel sounds, tender - mild diffuse tenderness without guarding, rebound Extremities: no swelling Intake and Output 12/11/16 12/12/16 19:00 07:00 Intake Total 800 ml 168.374 ml Output Total 500 ml 900 ml Balance 300 ml -731.626 ml IV Total 800 ml 168.374 ml Output Urine Total 500 ml 900 ml Laboratory Tests Test 12/12/16 01:30 12/12/16 02:40 12/12/16 10:30 12/12/16 18:10 White Blood Count 13.9 K/UL (4.8-10.8) H Red Blood Count 4.57 M/UL (4.20-5.40) Hemoglobin 13.5 G/DL (12.0-16.0) Hematocrit 43.0 % (37.0-47.0) Mean Corpuscular Volume 94 FL (80-99) Mean Corpuscular Hemoglobin 29.5 PG (27.0-31.0) Mean Corpuscular Hemoglobin Concent 31.4 G/DL (32.0-36.0) L Red Cell Distribution Width 13.7 % (11.6-14.8) Platelet Count 184 K/UL (150-450) Mean Platelet Volume 9.5 FL (6.5-10.1) Neutrophils (%) (Auto) 78.3 % (45.0-75.0) H Lymphocytes (%) (Auto) 12.9 % (20.0-45.0) L Monocytes (%) (Auto) 8.2 % (1.0-10.0) Eosinophils (%) (Auto) 0.0 % (0.0-3.0) Basophils (%) (Auto) 0.6 % (0.0-2.0) Prothrombin Time 11.9 SEC (9.30-11.50) H Prothromb Time International Ratio 1.2 (0.9-1.1) H Activated Partial Thromboplast Time 38 SEC (23-33) H 48 SEC (23-33) H Pending Sodium Level 143 mEQ/L (135-145) Potassium Level 4.1 mEQ/L (3.4-4.9) Chloride Level 103 mEQ/L (98-107) Carbon Dioxide Level 26 mEQ/L (20-30) Anion Gap 14 (5-15) Blood Urea Nitrogen 62 mg/dL (7-23) H Creatinine 1.2 mg/dL (0.5-0.9) H Estimat Glomerular Filtration Rate 44.4 mL/min (>60) Glucose Level 184 mg/dL (74-106) H Uric Acid 11.5 mg/dL (3.0-7.5) H Calcium Level 7.4 mg/dL (8.6-10.2) L Phosphorus Level 2.7 mg/dL (2.5-4.8) Magnesium Level 2.6 mg/dL (1.7-2.5) H Total Bilirubin 2.1 mg/dL (0.0-1.2) H Direct Bilirubin 0.6 mg/dL (0.1-0.3) H Gamma Glutamyl Transpeptidase 83 U/L (5-36) H Aspartate Amino Transf (AST/SGOT) 28 U/L (5-40) Alanine Aminotransferase (ALT/SGPT) 18 U/L (3-33) Alkaline Phosphatase 71 U/L (35-104) C-Reactive Protein, Quantitative 34.8 mg/dL (< 0.5) H Pro-B-Type Natriuretic Peptide 1672 pg/mL (0-125) H Total Protein 5.6 g/dL (6.6-8.7) L Albumin 2.7 g/dL (3.5-5.2) L Globulin 2.9 g/dL Albumin/Globulin Ratio 0.9 (1.0-2.7) L Amylase Level 521 U/L (10-110) *H Lipase 159 U/L (< 60) H Urine Eosinophils None seen TASHA CASTANEDA Dec 12, 2016 19:36
[2016-12-12 20:00] VITALS: BP 139/66
--- NOTE | 2016-12-12 20:00 | Infectious Diseases Prog Note ---
Assessment/Plan Assessment/Plan ASSESSMENT: Pancreatitis recurrent MRCP : Cholelithiasis. There is also a calculus within the duct adjacent to the gallbladder Pancreatic Enzymes improving Leukocytosis ( SIRS ) improving ? Cholecystitis : US of liver : Incidental finding of cholelithiasis and mild gallbladder wall thickening positive sonographic Diaz's sign \ LFT : Nl ARF improving aortic stenosis mitral stenosis status post mitral valve replacement AFib Pulmonary hypertension PLAN: - cont Merrem d# 3 /10 - monitor CBC, temperatures, - Monitor culture ( BL) - monitor LFT and - GI f/u Subjective Constitutional: Denies: anorexia, chills, drenching sweats, fatigue, fever, no symptoms, other Allergies: Coded Allergies: No Known Allergies (Unverified , 09/28/14) Objective Vital Signs Last 24 Hour Vital Signs Date Time Temp Pulse Resp B/P Pulse Ox O2 Delivery O2 Flow Rate FiO2 12/12/16 16:00 97.7 92 20 124/60 92 Room Air 12/12/16 13:30 97.0 12/12/16 12:00 93 12/12/16 11:21 97.0 88 20 137/51 94 Room Air 12/12/16 08:34 97.3 91 18 126/63 95 Room Air 12/12/16 08:32 80 129/75 12/12/16 08:32 80 12/12/16 08:32 80 129/75 12/12/16 08:00 103 12/12/16 04:02 98.6 80 18 129/75 96 Room Air 12/12/16 04:00 91 12/12/16 00:08 98.4 86 19 123/63 92 Room Air 12/12/16 00:00 83 12/11/16 21:46 115 150/67 12/11/16 20:00 100 12/11/16 20:00 97.7 115 22 150/67 92 Room Air Height (Feet): 5 Height (Inches): 1.00 Weight (Pounds): 145 HEENT: mucous membranes moist Respiratory/Chest: normal breath sounds Cardiovascular: regularly irregular Abdomen: non distended Laboratory Tests Test 12/12/16 01:30 12/12/16 02:40 12/12/16 10:30 12/12/16 18:10 White Blood Count 13.9 K/UL (4.8-10.8) H Red Blood Count 4.57 M/UL (4.20-5.40) Hemoglobin 13.5 G/DL (12.0-16.0) Hematocrit 43.0 % (37.0-47.0) Mean Corpuscular Volume 94 FL (80-99) Mean Corpuscular Hemoglobin 29.5 PG (27.0-31.0) Mean Corpuscular Hemoglobin Concent 31.4 G/DL (32.0-36.0) L Red Cell Distribution Width 13.7 % (11.6-14.8) Platelet Count 184 K/UL (150-450) Mean Platelet Volume 9.5 FL (6.5-10.1) Neutrophils (%) (Auto) 78.3 % (45.0-75.0) H Lymphocytes (%) (Auto) 12.9 % (20.0-45.0) L Monocytes (%) (Auto) 8.2 % (1.0-10.0) Eosinophils (%) (Auto) 0.0 % (0.0-3.0) Basophils (%) (Auto) 0.6 % (0.0-2.0) Prothrombin Time 11.9 SEC (9.30-11.50) H Prothromb Time International Ratio 1.2 (0.9-1.1) H Activated Partial Thromboplast Time 38 SEC (23-33) H 48 SEC (23-33) H Pending Sodium Level 143 mEQ/L (135-145) Potassium Level 4.1 mEQ/L (3.4-4.9) Chloride Level 103 mEQ/L (98-107) Carbon Dioxide Level 26 mEQ/L (20-30) Anion Gap 14 (5-15) Blood Urea Nitrogen 62 mg/dL (7-23) H Creatinine 1.2 mg/dL (0.5-0.9) H Estimat Glomerular Filtration Rate 44.4 mL/min (>60) Glucose Level 184 mg/dL (74-106) H Uric Acid 11.5 mg/dL (3.0-7.5) H Calcium Level 7.4 mg/dL (8.6-10.2) L Phosphorus Level 2.7 mg/dL (2.5-4.8) Magnesium Level 2.6 mg/dL (1.7-2.5) H Total Bilirubin 2.1 mg/dL (0.0-1.2) H Direct Bilirubin 0.6 mg/dL (0.1-0.3) H Gamma Glutamyl Transpeptidase 83 U/L (5-36) H Aspartate Amino Transf (AST/SGOT) 28 U/L (5-40) Alanine Aminotransferase (ALT/SGPT) 18 U/L (3-33) Alkaline Phosphatase 71 U/L (35-104) C-Reactive Protein, Quantitative 34.8 mg/dL (< 0.5) H Pro-B-Type Natriuretic Peptide 1672 pg/mL (0-125) H Total Protein 5.6 g/dL (6.6-8.7) L Albumin 2.7 g/dL (3.5-5.2) L Globulin 2.9 g/dL Albumin/Globulin Ratio 0.9 (1.0-2.7) L Amylase Level 521 U/L (10-110) *H Lipase 159 U/L (< 60) H Urine Eosinophils None seen Current Medications Medications (Trade) Dose Ordered Sig/Lisbeth Route PRN Reason Start Time Stop Time Status Last Admin Dose Admin Acetaminophen (Tylenol) 650 mg Q4H PRN ORAL fever 12/10/16 09:00 01/09/17 08:59 Amlodipine Besylate (Norvasc) 5 mg DAILY ORAL 12/10/16 09:00 01/09/17 08:59 12/12/16 08:32 Dextrose (Dextrose 50%) STAT PRN IV Hypoglycemia 12/11/16 05:00 01/10/17 04:59 Dextrose/Sodium Chloride (D5 0.45% NS) 1,000 ml @ 100 mls/hr Q10H IV 12/10/16 16:30 01/09/17 16:29 12/12/16 19:19 Digoxin (Lanoxin) 0.125 mg DAILY ORAL 12/10/16 09:00 01/09/17 08:59 12/12/16 08:32 Heparin Sodium/ Dextrose (Heparin) 500 ml @ 26.308 mls/ hr adjust per protocol IV 12/12/16 04:02 01/10/17 18:29 12/12/16 12:02 Meropenem/Sodium Chloride (Merrem/Sodium Chloride) 110 ml @ 220 mls/hr Q12HR@0100,1300 IVPB 12/12/16 01:00 12/17/16 00:59 12/12/16 12:03 Metoprolol Tartrate 37.5 mg 37.5 mg Q12HR ORAL 12/11/16 21:00 01/10/17 20:59 12/12/16 08:32 Morphine Sulfate (Morphine Sulfate) 4 mg Q4H PRN IVP Severe Pain (Pain Scale 7-10) 12/11/16 14:45 12/18/16 14:44 12/12/16 13:00 Nitroglycerin (Ntg) 0.4 mg Q5M X 3 DOSES PRN SL Prn Chest Pain 12/10/16 06:15 01/09/17 06:14 Ondansetron HCl (Zofran) 4 mg Q6H PRN IVP Nausea & Vomiting 12/10/16 12:00 01/09/17 11:59 12/10/16 09:14 Pantoprazole 40 mg 40 mg EVERY 12 HOURS ORAL 12/10/16 21:00 01/09/17 20:59 12/12/16 08:32 Polyethylene Glycol (Miralax) 17 gm HSPRN PRN ORAL Constipation 12/11/16 05:00 01/10/17 04:59 Sucralfate (Carafate) 1 gm FOUR TIMES A DAY ORAL 12/10/16 09:00 01/09/17 08:59 12/12/16 19:19 Temazepam 15 mg 15 mg HSPRN PRN ORAL Insomnia 12/11/16 05:00 12/18/16 04:59 OSCAR ANDERSON M.D. Dec 12, 2016 20:00
[2016-12-13 00:06] VITALS: BP 121/47
[2016-12-13] MEDS: Meropenem 1gm/NS 110ml IVPB SCH ×4 (01:10→13:28)
[2016-12-13 03:33] LABS: BASOPHILS % (AUTO) 1.7 % (0.0-2.0); EOSINOPHILS % (AUTO) 0.2 % (0.0-3.0); LYMPHOCYTES % (AUTO) 9.6 % (20.0-45.0); MEAN CORPUSCULAR HEMOGLOBIN 29.7 PG (27.0-31.0); MEAN CORPUSCULAR HGB CONC 31.6 G/DL (32.0-36.0); MEAN CORPUSCULAR VOLUME 94 FL (80-99); MONOCYTES % (AUTO) 7.5 % (1.0-10.0); PLATELET COUNT 174 K/UL (150-450); RED BLOOD COUNT 4.31 M/UL (4.20-5.40); RED CELL DISTRIBUTION WIDTH 14.1 % (11.6-14.8); WHITE BLOOD COUNT 14.2 K/UL (4.8-10.8)
[2016-12-13 03:43] LABS: INR 1.2 (0.9-1.1)
[2016-12-13 03:48] LABS: ALBUMIN/GLOBULIN RATIO 0.5 (1.0-2.7); CALCIUM 7.8 mg/dL (8.6-10.2); GLOMERULAR FILTRATION RATE 54.8 mL/min (>60); POTASSIUM 3.8 mEQ/L (3.4-4.9)
[2016-12-13] MEDS ORDERED: Heparin 25,000u/D5W 500ml 500 ML IV SCH (03:59)
[2016-12-13 04:13] VITALS: BP 133/55
[2016-12-13] MEDS ORDERED: Heparin 5000 units/ml inj IV ONE (04:15)
[2016-12-13 04:27] LABS: BILIRUBIN,DIRECT 0.7 mg/dL (0.1-0.3)
[2016-12-13] MEDS: D5 1/2NS 1,000 ML IV SCH ×3 (04:30→22:56)
[2016-12-13] MEDS: Digoxin 0.125mg tab ORAL SCH (08:20)
[2016-12-13] MEDS: Metoprolol 25mg tab ORAL SCH ×2 (08:20→21:08)
[2016-12-13] MEDS: Sucralfate 1gm tab ORAL SCH ×4 (08:20→21:08)
[2016-12-13 08:45] VITALS: BP 131/56
--- NOTE | 2016-12-13 09:36 | GI Progress Note ---
Assessment/Plan Problems: (1) Pancreatitis ICD Codes: K85.9 - Acute pancreatitis, unspecified SNOMED: 76394302 Qualifiers: Qualified Codes: K85.10 - Biliary acute pancreatitis without necrosis or infection (2) Abdominal pain ICD Codes: R10.9 - Unspecified abdominal pain SNOMED: 76587277, [id number] (3) Iron deficiency anemia ICD Codes: D50.9 - Iron deficiency anemia, unspecified SNOMED: 75470770 (4) Colon polyp ICD Codes: K63.5 - Polyp of colon SNOMED: [id number] Status: stable Status Narrative Discussed with Dr. Gipson. Assessment/Plan lipid panel >> normal triglycerides MRCP reviewed >> pt may require surgery CLD, adv as tolerated pain mgmt abx monitor lipase >> WNL fu labs Subjective Subjective abdominal pain >> no symptoms at this time Objective Last 24 Hour Vital Signs Date Time Temp Pulse Resp B/P Pulse Ox O2 Delivery O2 Flow Rate FiO2 12/13/16 08:45 97.7 88 20 131/56 97 Nasal Cannula 2.0 12/13/16 08:20 82 133/55 12/13/16 08:20 82 12/13/16 08:20 82 133/55 12/13/16 04:13 98.6 82 19 133/55 98 Room Air 12/13/16 04:00 77 12/13/16 00:06 98.3 79 18 121/47 94 Room Air 12/13/16 00:00 79 12/12/16 21:10 100 139/66 12/12/16 20:00 103 12/12/16 20:00 97.4 100 21 139/66 96 Nasal Cannula 2.0 12/12/16 16:00 97.7 92 20 124/60 92 Room Air 12/12/16 16:00 92 12/12/16 13:30 97.0 12/12/16 12:00 93 12/12/16 11:21 97.0 88 20 137/51 94 Room Air Intake and Output 12/12/16 12/13/16 19:00 07:00 Intake Total 183.325 ml 867.82 ml Output Total 250 ml 1100 ml Balance -66.675 ml -232.18 ml IV Total 183.325 ml 867.82 ml Output Urine Total 250 ml 1100 ml # Bowel Movements 4 1 Laboratory Tests Test 12/12/16 10:30 12/12/16 18:10 12/13/16 02:25 12/13/16 03:00 Activated Partial Thromboplast Time 48 SEC (23-33) H 36 SEC (23-33) H 61 SEC (23-33) H Urine Eosinophils None seen White Blood Count 14.2 K/UL (4.8-10.8) H Red Blood Count 4.31 M/UL (4.20-5.40) Hemoglobin 12.8 G/DL (12.0-16.0) Hematocrit 40.5 % (37.0-47.0) Mean Corpuscular Volume 94 FL (80-99) Mean Corpuscular Hemoglobin 29.7 PG (27.0-31.0) Mean Corpuscular Hemoglobin Concent 31.6 G/DL (32.0-36.0) L Red Cell Distribution Width 14.1 % (11.6-14.8) Platelet Count 174 K/UL (150-450) Mean Platelet Volume 9.0 FL (6.5-10.1) Neutrophils (%) (Auto) 81.0 % (45.0-75.0) H Lymphocytes (%) (Auto) 9.6 % (20.0-45.0) L Monocytes (%) (Auto) 7.5 % (1.0-10.0) Eosinophils (%) (Auto) 0.2 % (0.0-3.0) Basophils (%) (Auto) 1.7 % (0.0-2.0) Prothrombin Time 12.0 SEC (9.30-11.50) H Prothromb Time International Ratio 1.2 (0.9-1.1) H Sodium Level 138 mEQ/L (135-145) Potassium Level 3.8 mEQ/L (3.4-4.9) Chloride Level 99 mEQ/L (98-107) Carbon Dioxide Level 27 mEQ/L (20-30) Anion Gap 12 (5-15) Blood Urea Nitrogen 57 mg/dL (7-23) H Creatinine 1.0 mg/dL (0.5-0.9) H Estimat Glomerular Filtration Rate 54.8 mL/min (>60) Glucose Level 191 mg/dL (74-106) H Calcium Level 7.8 mg/dL (8.6-10.2) L Total Bilirubin 1.9 mg/dL (0.0-1.2) H Direct Bilirubin 0.7 mg/dL (0.1-0.3) H Aspartate Amino Transf (AST/SGOT) 25 U/L (5-40) Alanine Aminotransferase (ALT/SGPT) 15 U/L (3-33) Alkaline Phosphatase 69 U/L (35-104) Total Protein 6.0 g/dL (6.6-8.7) L Albumin 2.2 g/dL (3.5-5.2) L Globulin 3.8 g/dL Albumin/Globulin Ratio 0.5 (1.0-2.7) L Amylase Level 249 U/L (10-110) H Lipase 49 U/L (< 60) Height (Feet): 5 Height (Inches): 1.00 Weight (Pounds): 145 General Appearance: no apparent distress, alert Cardiovascular: normal rate Respiratory/Chest: normal breath sounds, no respiratory distress Abdominal Exam: normal bowel sounds, non tender, soft Objective Service Date: 12/11/16 Procedure: MRI Abdomen no Contrast Indication: Abdominal pain, possible pancreatitis Findings: Multiple calcifications are seen within the gallbladder. There is a ductal structure cephalad to the gallbladder which contains a filling defect. This is probably the cystic duct, but could be an extrahepatic bile duct, and it is uncertain which of these is. The gallbladder wall is not thickened. The extrahepatic bile ducts are ectatic, with the common bile duct measuring up to 9 mm diameter , but no downstream filling defects are demonstrated. The common bile duct terminates abruptly at the level of the ampulla. The pancreatic duct is mildly ectatic, measuring 3-4 mm in diameter. No intraluminal filling defects are demonstrated. A 7 mm fluid signal lesion is seen within the uncinate process of the pancreas. This may actually be a duodenal diverticulum which is seen on the recent CT scan. There is apparent swelling of the pancreas and considerable free intraperitoneal fluid. No free intraperitoneal fluid presumably increased from the prior CT scan. There are dilated small bowel loops, likely indicating ileus. The liver is unremarkable. The adrenals and kidneys are unremarkable. There are bilateral small pleural effusions. The spleen is unremarkable. The heart is enlarged Impression: Cholelithiasis. There is also a calculus within the duct adjacent to the gallbladder which is probably the cystic duct but could be an extrahepatic bile duct. Extrahepatic and central intrahepatic biliary ductal mild dilatation. No definite downstream calculus or pancreatic head mass to account for this, however. Prominence and edema of the pancreas, better visualized on prior CT scan, consistent with acute pancreatitis, also previously described Ascites fluid, increased from the prior CT scan, likely secondary to the acute pancreatitis Dilated small bowel loops, new since prior CT study. Suspect representing ileus related to the pancreatitis Bilateral small pleural effusions Small cystic lesion within the as a process. Suspect that this is actually the duodenal diverticulum described on recent CT scan, but could represent a tiny pseudocyst or intraductal papillary mucinous neoplasm. Cardiomegaly Lulu Dominguez N.P. Dec 13, 2016 09:36
--- NOTE | 2016-12-13 10:02 | Infectious Diseases Prog Note ---
Assessment/Plan Assessment/Plan ASSESSMENT: Pancreatitis recurrent MRCP : Cholelithiasis. There is also a calculus within the duct adjacent to the gallbladder Pancreatic Enzymes improving Leukocytosis ( SIRS ) ? Cholecystitis : US of liver : Incidental finding of cholelithiasis and mild gallbladder wall thickening positive sonographic Diaz's sign LFT : Nl ARF SP aortic stenosis mitral stenosis status post mitral valve replacement AFib Pulmonary hypertension PLAN: - cont Merrem d# / - monitor CBC, temperatures, - Monitor culture ( BL) - monitor LFT and - GI f/u - Rec Cholecystectomy Subjective Constitutional: Denies: anorexia, chills, drenching sweats, fatigue, fever, no symptoms, other Allergies: Coded Allergies: No Known Allergies (Unverified , 09/28/14) Objective Vital Signs Last 24 Hour Vital Signs Date Time Temp Pulse Resp B/P Pulse Ox O2 Delivery O2 Flow Rate FiO2 12/13/16 08:45 97.7 88 20 131/56 97 Nasal Cannula 2.0 12/13/16 08:20 82 133/55 12/13/16 08:20 82 12/13/16 08:20 82 133/55 12/13/16 08:00 83 12/13/16 04:13 98.6 82 19 133/55 98 Room Air 12/13/16 04:00 77 12/13/16 00:06 98.3 79 18 121/47 94 Room Air 12/13/16 00:00 79 12/12/16 21:10 100 139/66 12/12/16 20:00 103 12/12/16 20:00 97.4 100 21 139/66 96 Nasal Cannula 2.0 12/12/16 16:00 97.7 92 20 124/60 92 Room Air 12/12/16 16:00 92 12/12/16 13:30 97.0 12/12/16 12:00 93 12/12/16 11:21 97.0 88 20 137/51 94 Room Air Height (Feet): 5 Height (Inches): 1.00 Weight (Pounds): 145 HEENT: anicteric Respiratory/Chest: no respiratory distress Cardiovascular: regularly irregular Abdomen: non distended Laboratory Tests Test 12/12/16 10:30 12/12/16 18:10 12/13/16 02:25 12/13/16 03:00 Activated Partial Thromboplast Time 48 SEC (23-33) H 36 SEC (23-33) H 61 SEC (23-33) H Urine Eosinophils None seen White Blood Count 14.2 K/UL (4.8-10.8) H Red Blood Count 4.31 M/UL (4.20-5.40) Hemoglobin 12.8 G/DL (12.0-16.0) Hematocrit 40.5 % (37.0-47.0) Mean Corpuscular Volume 94 FL (80-99) Mean Corpuscular Hemoglobin 29.7 PG (27.0-31.0) Mean Corpuscular Hemoglobin Concent 31.6 G/DL (32.0-36.0) L Red Cell Distribution Width 14.1 % (11.6-14.8) Platelet Count 174 K/UL (150-450) Mean Platelet Volume 9.0 FL (6.5-10.1) Neutrophils (%) (Auto) 81.0 % (45.0-75.0) H Lymphocytes (%) (Auto) 9.6 % (20.0-45.0) L Monocytes (%) (Auto) 7.5 % (1.0-10.0) Eosinophils (%) (Auto) 0.2 % (0.0-3.0) Basophils (%) (Auto) 1.7 % (0.0-2.0) Prothrombin Time 12.0 SEC (9.30-11.50) H Prothromb Time International Ratio 1.2 (0.9-1.1) H Sodium Level 138 mEQ/L (135-145) Potassium Level 3.8 mEQ/L (3.4-4.9) Chloride Level 99 mEQ/L (98-107) Carbon Dioxide Level 27 mEQ/L (20-30) Anion Gap 12 (5-15) Blood Urea Nitrogen 57 mg/dL (7-23) H Creatinine 1.0 mg/dL (0.5-0.9) H Estimat Glomerular Filtration Rate 54.8 mL/min (>60) Glucose Level 191 mg/dL (74-106) H Calcium Level 7.8 mg/dL (8.6-10.2) L Total Bilirubin 1.9 mg/dL (0.0-1.2) H Direct Bilirubin 0.7 mg/dL (0.1-0.3) H Aspartate Amino Transf (AST/SGOT) 25 U/L (5-40) Alanine Aminotransferase (ALT/SGPT) 15 U/L (3-33) Alkaline Phosphatase 69 U/L (35-104) Total Protein 6.0 g/dL (6.6-8.7) L Albumin 2.2 g/dL (3.5-5.2) L Globulin 3.8 g/dL Albumin/Globulin Ratio 0.5 (1.0-2.7) L Amylase Level 249 U/L (10-110) H Lipase 49 U/L (< 60) Current Medications Medications (Trade) Dose Ordered Sig/Lisbeth Route PRN Reason Start Time Stop Time Status Last Admin Dose Admin Acetaminophen (Tylenol) 650 mg Q4H PRN ORAL fever 12/10/16 09:00 01/09/17 08:59 Amlodipine Besylate (Norvasc) 5 mg DAILY ORAL 12/10/16 09:00 01/09/17 08:59 12/13/16 08:20 Dextrose (Dextrose 50%) STAT PRN IV Hypoglycemia 12/11/16 05:00 01/10/17 04:59 Dextrose/Sodium Chloride (D5 0.45% NS) 1,000 ml @ 100 mls/hr Q10H IV 12/10/16 16:30 01/09/17 16:29 12/12/16 19:19 Digoxin (Lanoxin) 0.125 mg DAILY ORAL 12/10/16 09:00 01/09/17 08:59 12/13/16 08:20 Heparin Sodium/ Dextrose (Heparin) 500 ml @ 34.201 mls/ hr adjust per protocol IV 12/13/16 03:59 01/10/17 18:29 12/13/16 04:21 Meropenem/Sodium Chloride (Merrem/Sodium Chloride) 110 ml @ 220 mls/hr Q12HR@0100,1300 IVPB 12/12/16 01:00 12/17/16 00:59 12/13/16 01:10 Metoprolol Tartrate 37.5 mg 37.5 mg Q12HR ORAL 12/11/16 21:00 01/10/17 20:59 12/13/16 08:20 Morphine Sulfate (Morphine Sulfate) 4 mg Q4H PRN IVP Severe Pain (Pain Scale 7-10) 12/11/16 14:45 12/18/16 14:44 12/12/16 21:31 Nitroglycerin (Ntg) 0.4 mg Q5M X 3 DOSES PRN SL Prn Chest Pain 12/10/16 06:15 01/09/17 06:14 Ondansetron HCl (Zofran) 4 mg Q6H PRN IVP Nausea & Vomiting 12/10/16 12:00 01/09/17 11:59 12/10/16 09:14 Pantoprazole 40 mg 40 mg EVERY 12 HOURS ORAL 12/10/16 21:00 01/09/17 20:59 12/13/16 08:20 Polyethylene Glycol (Miralax) 17 gm HSPRN PRN ORAL Constipation 12/11/16 05:00 01/10/17 04:59 Sucralfate (Carafate) 1 gm FOUR TIMES A DAY ORAL 12/10/16 09:00 01/09/17 08:59 12/13/16 08:20 Temazepam 15 mg 15 mg HSPRN PRN ORAL Insomnia 12/11/16 05:00 12/18/16 04:59 OSCAR ANDERSON M.D. Dec 13, 2016 10:02
[2016-12-13 11:47] VITALS: BP 136/50
[2016-12-13] MEDS: Enoxaparin Sodium 300mg/3ml vial SUBQ SCH ×2 (13:29→21:37)
[2016-12-13] MEDS ORDERED: Enoxaparin Sodium 300mg/3ml vial SUBQ SCH (13:30)
--- NOTE | 2016-12-13 14:06 | General Progress Note ---
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 Mirtral Vavle prosthesis on anticoagulation Pulmonary HTN Plan: DC Mathias trial po liquids- Urine studies- Keep BP under control Avoid nephrotoxics K supplement monitor renal parameters Subjective ROS Limited/Unobtainable: No Constitutional: Reports: malaise Allergies: Coded Allergies: No Known Allergies (Unverified , 09/28/14) Objective Last 24 Hour Vital Signs Date Time Temp Pulse Resp B/P Pulse Ox O2 Delivery O2 Flow Rate FiO2 12/13/16 12:00 80 12/13/16 11:47 97.5 78 20 136/50 96 Nasal Cannula 2.0 12/13/16 08:45 97.7 88 20 131/56 97 Nasal Cannula 2.0 12/13/16 08:20 82 133/55 12/13/16 08:20 82 12/13/16 08:20 82 133/55 12/13/16 08:00 83 12/13/16 04:13 98.6 82 19 133/55 98 Room Air 12/13/16 04:00 77 12/13/16 00:06 98.3 79 18 121/47 94 Room Air 12/13/16 00:00 79 12/12/16 21:10 100 139/66 12/12/16 20:00 103 12/12/16 20:00 97.4 100 21 139/66 96 Nasal Cannula 2.0 12/12/16 16:00 97.7 92 20 124/60 92 Room Air 12/12/16 16:00 92 Intake and Output 12/12/16 12/13/16 19:00 07:00 Intake Total 183.325 ml 867.82 ml Output Total 250 ml 1100 ml Balance -66.675 ml -232.18 ml IV Total 183.325 ml 867.82 ml Output Urine Total 250 ml 1100 ml # Bowel Movements 4 1 Laboratory Tests 12/12/16 18:10: Activated Partial Thromboplast Time 36H 12/13/16 02:25: Urine Eosinophils None seen 12/13/16 03:00: Activated Partial Thromboplast Time 61H, White Blood Count 14.2H, Red Blood Count 4.31, Hemoglobin 12.8, Hematocrit 40.5, Mean Corpuscular Volume 94, Mean Corpuscular Hemoglobin 29.7, Mean Corpuscular Hemoglobin Concent 31.6L, Red Cell Distribution Width 14.1, Platelet Count 174, Mean Platelet Volume 9.0, Neutrophils (%) (Auto) 81.0H, Lymphocytes (%) (Auto) 9.6L, Monocytes (%) (Auto) 7.5, Eosinophils (%) (Auto) 0.2, Basophils (%) (Auto) 1.7, Prothrombin Time 12.0H, Prothromb Time International Ratio 1.2H, Sodium Level 138, Potassium Level 3.8, Chloride Level 99, Carbon Dioxide Level 27, Anion Gap 12, Blood Urea Nitrogen 57H, Creatinine 1.0H, Estimat Glomerular Filtration Rate 54.8, Glucose Level 191H, Calcium Level 7.8L, Total Bilirubin 1.9H, Direct Bilirubin 0.7H, Aspartate Amino Transf (AST/SGOT) 25, Alanine Aminotransferase (ALT/SGPT) 15, Alkaline Phosphatase 69, Total Protein 6.0L, Albumin 2.2L, Globulin 3.8, Albumin /Globulin Ratio 0.5L, Amylase Level 249H, Lipase 49 12/13/16 10:30: Activated Partial Thromboplast Time 39H Height (Feet): 5 Height (Inches): 1.00 Weight (Pounds): 145 General Appearance: no apparent distress, lethargic Respiratory/Chest: decreased breath sounds Abdomen: distended Objective other PE not changed KAMINI SNOW Dec 13, 2016 14:06
--- NOTE | 2016-12-13 15:05 | Pulmonology Progress Note ---
Assessment/Plan Problems: (1) Sepsis (2) Cholelithiasis (3) ATN (acute tubular necrosis) (4) Phlegmon of pancreas (5) Atrial fibrillation (6) Elevated INR Assessment/Plan amylase and lipase trending down afib and flutter on monitor byers cultures IV antibiotics wbc decreasing increase morphine check wbc vitamin K for elevated INR renal studies, improving surgical consult called, d/w dr Bustos Subjective ROS Limited/Unobtainable: No Interval Events: improving, pain is bettter Allergies: Coded Allergies: No Known Allergies (Unverified , 09/28/14) Objective Last 24 Hour Vital Signs Date Time Temp Pulse Resp B/P Pulse Ox O2 Delivery O2 Flow Rate FiO2 12/13/16 12:00 80 12/13/16 11:47 97.5 78 20 136/50 96 Nasal Cannula 2.0 12/13/16 08:45 97.7 88 20 131/56 97 Nasal Cannula 2.0 12/13/16 08:20 82 133/55 12/13/16 08:20 82 12/13/16 08:20 82 133/55 12/13/16 08:00 83 12/13/16 04:13 98.6 82 19 133/55 98 Room Air 12/13/16 04:00 77 12/13/16 00:06 98.3 79 18 121/47 94 Room Air 12/13/16 00:00 79 12/12/16 21:10 100 139/66 12/12/16 20:00 103 12/12/16 20:00 97.4 100 21 139/66 96 Nasal Cannula 2.0 12/12/16 16:00 97.7 92 20 124/60 92 Room Air 12/12/16 16:00 92 Intake and Output 12/12/16 12/13/16 19:00 07:00 Intake Total 183.325 ml 867.82 ml Output Total 250 ml 1100 ml Balance -66.675 ml -232.18 ml IV Total 183.325 ml 867.82 ml Output Urine Total 250 ml 1100 ml # Bowel Movements 4 1 General Appearance: WD/WN HEENT: normocephalic, atraumatic Respiratory/Chest: chest wall non-tender, lungs clear Cardiovascular: normal peripheral pulses, normal rate Abdomen: normal bowel sounds, soft, non tender Skin: no rash Neurologic/Psychiatric: 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 II-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 grossly normal Lymphatic: no neck adenopathy Laboratory Tests 12/12/16 18:10: Activated Partial Thromboplast Time 36H 12/13/16 02:25: Urine Eosinophils None seen 12/13/16 03:00: Activated Partial Thromboplast Time 61H, White Blood Count 14.2H, Red Blood Count 4.31, Hemoglobin 12.8, Hematocrit 40.5, Mean Corpuscular Volume 94, Mean Corpuscular Hemoglobin 29.7, Mean Corpuscular Hemoglobin Concent 31.6L, Red Cell Distribution Width 14.1, Platelet Count 174, Mean Platelet Volume 9.0, Neutrophils (%) (Auto) 81.0H, Lymphocytes (%) (Auto) 9.6L, Monocytes (%) (Auto) 7.5, Eosinophils (%) (Auto) 0.2, Basophils (%) (Auto) 1.7, Prothrombin Time 12.0H, Prothromb Time International Ratio 1.2H, Sodium Level 138, Potassium Level 3.8, Chloride Level 99, Carbon Dioxide Level 27, Anion Gap 12, Blood Urea Nitrogen 57H, Creatinine 1.0H, Estimat Glomerular Filtration Rate 54.8, Glucose Level 191H, Calcium Level 7.8L, Total Bilirubin 1.9H, Direct Bilirubin 0.7H, Aspartate Amino Transf (AST/SGOT) 25, Alanine Aminotransferase (ALT/SGPT) 15, Alkaline Phosphatase 69, Total Protein 6.0L, Albumin 2.2L, Globulin 3.8, Albumin /Globulin Ratio 0.5L, Amylase Level 249H, Lipase 49 12/13/16 10:30: Activated Partial Thromboplast Time 39H Current Medications Medications (Trade) Dose Ordered Sig/Lisbeth Route PRN Reason Start Time Stop Time Status Last Admin Dose Admin Acetaminophen (Tylenol) 650 mg Q4H PRN ORAL fever 12/10/16 09:00 01/09/17 08:59 Amlodipine Besylate (Norvasc) 5 mg DAILY ORAL 12/10/16 09:00 01/09/17 08:59 12/13/16 08:20 Dextrose (Dextrose 50%) STAT PRN IV Hypoglycemia 12/11/16 05:00 01/10/17 04:59 Dextrose/Sodium Chloride (D5 0.45% NS) 1,000 ml @ 100 mls/hr Q10H IV 12/10/16 16:30 01/09/17 16:29 12/13/16 10:15 Digoxin (Lanoxin) 0.125 mg DAILY ORAL 12/10/16 09:00 01/09/17 08:59 12/13/16 08:20 Enoxaparin Sodium (Lovenox) 70 mg Q12HR SUBQ 12/13/16 13:30 01/12/17 13:29 12/13/16 13:29 Meropenem/Sodium Chloride (Merrem/Sodium Chloride) 110 ml @ 220 mls/hr Q12HR@0100,1300 IVPB 12/12/16 01:00 12/17/16 00:59 12/13/16 13:28 Metoprolol Tartrate (Lopressor) 37.5 mg Q12HR ORAL 12/11/16 21:00 01/10/17 20:59 12/13/16 08:20 Morphine Sulfate (Morphine Sulfate) 4 mg Q4H PRN IVP Severe Pain (Pain Scale 7-10) 12/11/16 14:45 12/18/16 14:44 12/12/16 21:31 Nitroglycerin (Ntg) 0.4 mg Q5M X 3 DOSES PRN SL Prn Chest Pain 12/10/16 06:15 01/09/17 06:14 Ondansetron HCl (Zofran) 4 mg Q6H PRN IVP Nausea & Vomiting 12/10/16 12:00 01/09/17 11:59 12/10/16 09:14 Pantoprazole 40 mg 40 mg EVERY 12 HOURS ORAL 12/10/16 21:00 01/09/17 20:59 12/13/16 08:20 Polyethylene Glycol (Miralax) 17 gm HSPRN PRN ORAL Constipation 12/11/16 05:00 01/10/17 04:59 Sucralfate (Carafate) 1 gm FOUR TIMES A DAY ORAL 12/10/16 09:00 01/09/17 08:59 12/13/16 13:28 Temazepam 15 mg 15 mg HSPRN PRN ORAL Insomnia 12/11/16 05:00 12/18/16 04:59 TONY BRIDGES Dec 13, 2016 15:05
[2016-12-13 16:00] VITALS: BP 142/56
--- NOTE | 2016-12-13 18:34 | Cardiology Progress Note ---
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 may need surgery wbc amylase lipas and renal fucntion better chf hs resolved on bb await surgical input if no surgery this admission will need to resume couamdin d/w dr carty and malcom Objective Last 24 Hour Vital Signs Date Time Temp Pulse Resp B/P Pulse Ox O2 Delivery O2 Flow Rate FiO2 12/13/16 16:00 97.5 85 20 142/56 98 Nasal Cannula 3.0 12/13/16 12:00 80 12/13/16 11:47 97.5 78 20 136/50 96 Nasal Cannula 2.0 12/13/16 08:45 97.7 88 20 131/56 97 Nasal Cannula 2.0 12/13/16 08:20 82 133/55 12/13/16 08:20 82 12/13/16 08:20 82 133/55 12/13/16 08:00 83 12/13/16 04:13 98.6 82 19 133/55 98 Room Air 12/13/16 04:00 77 12/13/16 00:06 98.3 79 18 121/47 94 Room Air 12/13/16 00:00 79 12/12/16 21:10 100 139/66 12/12/16 20:00 103 12/12/16 20:00 97.4 100 21 139/66 96 Nasal Cannula 2.0 Intake and Output 12/12/16 12/13/16 19:00 07:00 Intake Total 183.325 ml 867.82 ml Output Total 250 ml 1100 ml Balance -66.675 ml -232.18 ml IV Total 183.325 ml 867.82 ml Output Urine Total 250 ml 1100 ml # Bowel Movements 4 1 Laboratory Tests Test 12/13/16 02:25 12/13/16 03:00 12/13/16 10:30 Urine Eosinophils None seen White Blood Count 14.2 K/UL (4.8-10.8) H Red Blood Count 4.31 M/UL (4.20-5.40) Hemoglobin 12.8 G/DL (12.0-16.0) Hematocrit 40.5 % (37.0-47.0) Mean Corpuscular Volume 94 FL (80-99) Mean Corpuscular Hemoglobin 29.7 PG (27.0-31.0) Mean Corpuscular Hemoglobin Concent 31.6 G/DL (32.0-36.0) L Red Cell Distribution Width 14.1 % (11.6-14.8) Platelet Count 174 K/UL (150-450) Mean Platelet Volume 9.0 FL (6.5-10.1) Neutrophils (%) (Auto) 81.0 % (45.0-75.0) H Lymphocytes (%) (Auto) 9.6 % (20.0-45.0) L Monocytes (%) (Auto) 7.5 % (1.0-10.0) Eosinophils (%) (Auto) 0.2 % (0.0-3.0) Basophils (%) (Auto) 1.7 % (0.0-2.0) Prothrombin Time 12.0 SEC (9.30-11.50) H Prothromb Time International Ratio 1.2 (0.9-1.1) H Activated Partial Thromboplast Time 61 SEC (23-33) H 39 SEC (23-33) H Sodium Level 138 mEQ/L (135-145) Potassium Level 3.8 mEQ/L (3.4-4.9) Chloride Level 99 mEQ/L (98-107) Carbon Dioxide Level 27 mEQ/L (20-30) Anion Gap 12 (5-15) Blood Urea Nitrogen 57 mg/dL (7-23) H Creatinine 1.0 mg/dL (0.5-0.9) H Estimat Glomerular Filtration Rate 54.8 mL/min (>60) Glucose Level 191 mg/dL (74-106) H Calcium Level 7.8 mg/dL (8.6-10.2) L Total Bilirubin 1.9 mg/dL (0.0-1.2) H Direct Bilirubin 0.7 mg/dL (0.1-0.3) H Aspartate Amino Transf (AST/SGOT) 25 U/L (5-40) Alanine Aminotransferase (ALT/SGPT) 15 U/L (3-33) Alkaline Phosphatase 69 U/L (35-104) Total Protein 6.0 g/dL (6.6-8.7) L Albumin 2.2 g/dL (3.5-5.2) L Globulin 3.8 g/dL Albumin/Globulin Ratio 0.5 (1.0-2.7) L Amylase Level 249 U/L (10-110) H Lipase 49 U/L (< 60) ANNE RAM Dec 13, 2016 18:34
[2016-12-13 20:00] VITALS: BP 127/46
[2016-12-14] VITALS: BP 126/42
[2016-12-14] MEDS: Meropenem 1gm/NS 110ml IVPB SCH ×4 (00:29→12:22)
[2016-12-14 04:00] VITALS: BP 125/67
[2016-12-14 08:10] VITALS: BP 138/50
[2016-12-14] MEDS: Digoxin 0.125mg tab ORAL SCH (09:21)
[2016-12-14] MEDS: Metoprolol 25mg tab ORAL SCH ×2 (09:21→21:18)
[2016-12-14] MEDS: Sucralfate 1gm tab ORAL SCH ×4 (09:22→21:22)
[2016-12-14] MEDS: Enoxaparin Sodium 300mg/3ml vial SUBQ SCH ×2 (09:24→21:19)
[2016-12-14] MEDS: D5 1/2NS 1,000 ML IV SCH ×2 (09:27→21:20)
[2016-12-14 09:51] LABS: MEAN CORPUSCULAR HEMOGLOBIN 29.9 PG (27.0-31.0); MEAN CORPUSCULAR HGB CONC 31.4 G/DL (32.0-36.0); MEAN CORPUSCULAR VOLUME 95 FL (80-99); MEAN PLATELET VOLUME 10.3 FL (6.5-10.1); PLATELET COUNT 169 K/UL (150-450); RED BLOOD COUNT 3.77 M/UL (4.20-5.40); RED CELL DISTRIBUTION WIDTH 14.1 % (11.6-14.8); WHITE BLOOD COUNT 16.7 K/UL (4.8-10.8)
[2016-12-14 10:12] LABS: ANION GAP 14 (5-15); CALCIUM 7.9 mg/dL (8.6-10.2); CARBON DIOXIDE 27 mEQ/L (20-30); CHLORIDE 100 mEQ/L (98-107); CREATININE 0.7 mg/dL (0.5-0.9); GLOMERULAR FILTRATION RATE > 60 mL/min (>60); HEMOLYSIS 4; LIPASE 105 U/L (< 60); POTASSIUM 3.7 mEQ/L (3.4-4.9); SODIUM 141 mEQ/L (135-145)
--- NOTE | 2016-12-14 10:30 | GI Progress Note ---
Assessment/Plan Problems: (1) Pancreatitis ICD Codes: K85.9 - Acute pancreatitis, unspecified SNOMED: 29840064 Qualifiers: Qualified Codes: K85.10 - Biliary acute pancreatitis without necrosis or infection (2) Abdominal pain ICD Codes: R10.9 - Unspecified abdominal pain SNOMED: 38370418, 651745432 (3) Iron deficiency anemia ICD Codes: D50.9 - Iron deficiency anemia, unspecified SNOMED: 99880153 (4) Colon polyp ICD Codes: K63.5 - Polyp of colon SNOMED: 07640475 Status: stable Status Narrative Discussed with Dr. Gipson. Assessment/Plan lipid panel >> normal triglycerides MRCP reviewed >> fu surgical consult per surgical >> maintain patient NPO, pt scheduled for cholecystectomy next week. pain mgmt abx monitor lipase >> elevated fu labs Subjective Subjective abdominal pain >> decreased Objective Last 24 Hour Vital Signs Date Time Temp Pulse Resp B/P Pulse Ox O2 Delivery O2 Flow Rate FiO2 12/14/16 09:22 89 138/50 12/14/16 09:21 89 138/50 12/14/16 09:21 89 12/14/16 08:10 96.5 89 20 138/50 99 Nasal Cannula 2.0 12/14/16 04:00 74 12/14/16 04:00 98.2 93 20 125/67 98 Room Air 2.0 12/14/16 00:00 71 12/14/16 00:00 97.7 72 24 126/42 97 Nasal Cannula 2.0 12/13/16 21:08 82 127/46 12/13/16 20:00 67 12/13/16 20:00 97.2 82 19 127/46 98 Nasal Cannula 3.0 12/13/16 16:00 97.5 85 20 142/56 98 Nasal Cannula 3.0 12/13/16 16:00 87 12/13/16 12:00 80 12/13/16 11:47 97.5 78 20 136/50 96 Nasal Cannula 2.0 Intake and Output 12/13/16 12/14/16 19:00 07:00 Intake Total 635.2 ml 1420 ml Output Total 600 ml 1400 ml Balance 35.2 ml 20 ml Intake Oral 120 ml 500 ml IV Total 515.2 ml 920 ml Output Urine Total 600 ml 1400 ml # Bowel Movements 2 Laboratory Tests Test 12/13/16 10:30 12/14/16 09:10 Activated Partial Thromboplast Time 39 SEC (23-33) H White Blood Count 16.7 K/UL (4.8-10.8) H Red Blood Count 3.77 M/UL (4.20-5.40) L Hemoglobin 11.3 G/DL (12.0-16.0) L Hematocrit 35.9 % (37.0-47.0) L Mean Corpuscular Volume 95 FL (80-99) Mean Corpuscular Hemoglobin 29.9 PG (27.0-31.0) Mean Corpuscular Hemoglobin Concent 31.4 G/DL (32.0-36.0) L Red Cell Distribution Width 14.1 % (11.6-14.8) Platelet Count 169 K/UL (150-450) Mean Platelet Volume 10.3 FL (6.5-10.1) H Neutrophils (%) (Auto) % (45.0-75.0) Lymphocytes (%) (Auto) % (20.0-45.0) Monocytes (%) (Auto) % (1.0-10.0) Eosinophils (%) (Auto) % (0.0-3.0) Basophils (%) (Auto) % (0.0-2.0) Neutrophils % (Manual) Pending Lymphocytes % (Manual) Pending Platelet Estimate Pending Platelet Morphology Pending Sodium Level 141 mEQ/L (135-145) Potassium Level 3.7 mEQ/L (3.4-4.9) Chloride Level 100 mEQ/L (98-107) Carbon Dioxide Level 27 mEQ/L (20-30) Anion Gap 14 (5-15) Blood Urea Nitrogen 28 mg/dL (7-23) #H Creatinine 0.7 mg/dL (0.5-0.9) Estimat Glomerular Filtration Rate > 60 mL/min (>60) Glucose Level 234 mg/dL (74-106) H Calcium Level 7.9 mg/dL (8.6-10.2) L Lipase 105 U/L (< 60) H Height (Feet): 5 Height (Inches): 1.00 Weight (Pounds): 145 General Appearance: no apparent distress, alert, overweight Cardiovascular: normal rate Respiratory/Chest: other - 2LNC Abdominal Exam: normal bowel sounds, non tender, soft Extremities: normal range of motion Objective Service Date: 12/11/16 Procedure: MRI Abdomen no Contrast Indication: Abdominal pain, possible pancreatitis Findings: Multiple calcifications are seen within the gallbladder. There is a ductal structure cephalad to the gallbladder which contains a filling defect. This is probably the cystic duct, but could be an extrahepatic bile duct, and it is uncertain which of these is. The gallbladder wall is not thickened. The extrahepatic bile ducts are ectatic, with the common bile duct measuring up to 9 mm diameter , but no downstream filling defects are demonstrated. The common bile duct terminates abruptly at the level of the ampulla. The pancreatic duct is mildly ectatic, measuring 3-4 mm in diameter. No intraluminal filling defects are demonstrated. A 7 mm fluid signal lesion is seen within the uncinate process of the pancreas. This may actually be a duodenal diverticulum which is seen on the recent CT scan. There is apparent swelling of the pancreas and considerable free intraperitoneal fluid. No free intraperitoneal fluid presumably increased from the prior CT scan. There are dilated small bowel loops, likely indicating ileus. The liver is unremarkable. The adrenals and kidneys are unremarkable. There are bilateral small pleural effusions. The spleen is unremarkable. The heart is enlarged Impression: Cholelithiasis. There is also a calculus within the duct adjacent to the gallbladder which is probably the cystic duct but could be an extrahepatic bile duct. Extrahepatic and central intrahepatic biliary ductal mild dilatation. No definite downstream calculus or pancreatic head mass to account for this, however. Prominence and edema of the pancreas, better visualized on prior CT scan, consistent with acute pancreatitis, also previously described Ascites fluid, increased from the prior CT scan, likely secondary to the acute pancreatitis Dilated small bowel loops, new since prior CT study. Suspect representing ileus related to the pancreatitis Bilateral small pleural effusions Small cystic lesion within the as a process. Suspect that this is actually the duodenal diverticulum described on recent CT scan, but could represent a tiny pseudocyst or intraductal papillary mucinous neoplasm. Cardiomegaly Lulu Dominguez N.P. Dec 14, 2016 10:30
[2016-12-14 10:33] LABS: BAND NEUTROPHILS % (MANUAL) 2 % (0-8); EOSINOPHILS % (MANUAL) 1 % (0-3); LYMPHOCYTES % (MANUAL) 5 % (20-45); NEUTROPHILS % (MANUAL) 84 % (45-75); TOTAL CELLS COUNTED 100
[2016-12-14 10:34] LABS: BASOPHILS % (MANUAL) 0 % (0-2); PLATELET ESTIMATE ADEQUATE; PLATELET MORPHOLOGY NORMAL
--- NOTE | 2016-12-14 10:51 | General Progress Note ---
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 Mirtral Vavle prosthesis on anticoagulation Pulmonary HTN Plan: DC Mathias trial po liquids- Urine studies- Keep BP under control Avoid nephrotoxics K supplement monitor renal parameters Subjective ROS Limited/Unobtainable: No Constitutional: Reports: malaise Allergies: Coded Allergies: No Known Allergies (Unverified , 09/28/14) Objective Last 24 Hour Vital Signs Date Time Temp Pulse Resp B/P Pulse Ox O2 Delivery O2 Flow Rate FiO2 12/14/16 09:22 89 138/50 12/14/16 09:21 89 138/50 12/14/16 09:21 89 12/14/16 08:10 96.5 89 20 138/50 99 Nasal Cannula 2.0 12/14/16 04:00 74 12/14/16 04:00 98.2 93 20 125/67 98 Room Air 2.0 12/14/16 00:00 71 12/14/16 00:00 97.7 72 24 126/42 97 Nasal Cannula 2.0 12/13/16 21:08 82 127/46 12/13/16 20:00 67 12/13/16 20:00 97.2 82 19 127/46 98 Nasal Cannula 3.0 12/13/16 16:00 97.5 85 20 142/56 98 Nasal Cannula 3.0 12/13/16 16:00 87 12/13/16 12:00 80 12/13/16 11:47 97.5 78 20 136/50 96 Nasal Cannula 2.0 Intake and Output 12/13/16 12/14/16 19:00 07:00 Intake Total 635.2 ml 1420 ml Output Total 600 ml 1400 ml Balance 35.2 ml 20 ml Intake Oral 120 ml 500 ml IV Total 515.2 ml 920 ml Output Urine Total 600 ml 1400 ml # Bowel Movements 2 Laboratory Tests 12/14/16 09:10: White Blood Count 16.7H, Red Blood Count 3.77L, Hemoglobin 11.3L, Hematocrit 35.9L, Mean Corpuscular Volume 95, Mean Corpuscular Hemoglobin 29.9, Mean Corpuscular Hemoglobin Concent 31.4L, Red Cell Distribution Width 14.1, Platelet Count 169, Mean Platelet Volume 10.3H, Neutrophils (%) (Auto) , Lymphocytes (%) (Auto) , Monocytes (%) (Auto) , Eosinophils (%) (Auto) , Basophils (%) (Auto) , Differential Total Cells Counted 100, Neutrophils % ( Manual) 84H, Lymphocytes % (Manual) 5L, Monocytes % (Manual) 8, Eosinophils % ( Manual) 1, Basophils % (Manual) 0, Band Neutrophils 2, Platelet Estimate Adequate, Platelet Morphology Normal, Red Blood Cell Morphology Normal, Sodium Level 141, Potassium Level 3.7, Chloride Level 100, Carbon Dioxide Level 27, Anion Gap 14, Blood Urea Nitrogen 28#H, Creatinine 0.7, Estimat Glomerular Filtration Rate > 60, Glucose Level 234H, Calcium Level 7.9L, Lipase 105H Height (Feet): 5 Height (Inches): 1.00 Weight (Pounds): 145 General Appearance: no apparent distress Objective other PE not changed KAMINI SNOW Dec 14, 2016 10:51
[2016-12-14 11:18] VITALS: BP 141/48
--- NOTE | 2016-12-14 11:40 | Consultation ---
History of Present Illness General Date patient seen: Dec 14, 2016 Chief Complaint: Abdominal Pain Reason for Consultation: gallstone pancreatitis Present Illness HPI 71 year old female presented to ED a few days ago complaining of acute onset severe abdominal pain. States that she was in her normal state of health until she noted acute onset abdominal pain. Pain mainly in the upper abdomen, epigastric region, and RUQ. pain described as sharp 10/10 pain that improved with pain medication. associated nausea. does not note radiation of pain. Has had similar pain but never as severe in the past. Was admitted for work up and found to have significant pancreatitis. After appropriate work up etiology seems to be cholelithiasis. CT A/P demonstrated nonnecrotizing pancreatitis / duodenitis. MRCP demonstrates cholelithiasis potentially at cystic duct/CBD junction. Since admission has been improving. Labs including t. bili, ibeth, lipase have been trending down. pain has been improving. surgery called to evaluate for potential cholecystectomy. Allergies: Coded Allergies: No Known Allergies (Unverified , 09/28/14) Medication History Scheduled Amlodipine Besylate* (Amlodipine Besylate*), 5 MG ORAL DAILY, (Reported) Aspirin (Aspirin EC), 81 MG ORAL DAILY, (Reported) Aspirin* (Aspirin*), 81 MG ORAL DAILY, (Reported) Digoxin* (Digoxin*), 125 MCG ORAL DAILY, (Reported) Furosemide (Furosemide), 80 MG ORAL DAILY, (Reported) Metoprolol Tartrate* (Metoprolol Tartrate*), 75 MG ORAL BID, (Reported) Pot Chloride/Pot Bicarb/Cit Ac (Potassium Cl 25 Meq Tab Eff), 20 MEQ PO DAILY, ( Reported) Potassium Chloride* (K-Dur*), 20 MEQ ORAL DAILY, (Reported) Rosuvastatin Calcium (Crestor), 10 MG ORAL DAILY, (Reported) Sucralfate* (Carafate*), 1 GM ORAL FOUR TIMES A DAY, (Reported) Warfarin Sod* (Warfarin Sod*), 5 MG ORAL DAILY, (Reported) Scheduled PRN Zolpidem Tartrate* (Zolpidem Tartrate*), 5 MG ORAL BEDTIME PRN for Insomnia, ( Reported) Patient History History Provided By: Patient Healthcare decision maker pt alert and oriented Resuscitation status Full Code Advanced Directive on File No Past Medical/Surgical History Past Medical/Surgical History: (1) Pneumonia (2) Bronchitis (3) Fever (4) Acute coronary syndrome (5) Abscess (6) Abscess (7) Foot pain (8) Cellulitis (9) Hematoma (10) Hematoma (11) Coumadin toxicity (12) Ileus (13) SIRS (systemic inflammatory response syndrome) (14) UTI (urinary tract infection) (15) Rectal varices (16) Bradycardia (17) Atrial fibrillation (18) Hepatomegaly (19) Cholelithiasis (20) Anemia (21) Aortic stenosis (22) Helicobacter pylori gastritis (23) Colon polyp (24) Iron deficiency anemia (25) Abdominal pain (26) Phlegmon of pancreas (27) ATN (acute tubular necrosis) (28) Elevated INR (29) Pancreatitis (30) Sepsis Review of Systems Constitutional: Denies: chills, fever, malaise, no symptoms, other, see HPI, sweats, weakness Eye: Denies: acuity changes, blurred vision, discharge, double vision, eye pain , no symptoms, nose congestion, nose pain, other, see HPI, tearing ENT: Denies: ear discharge, ear pain, hearing loss, mouth pain, nasal discharge , no symptoms, nose congestion, nose pain, other, see HPI, throat pain, throat swelling Respiratory: Denies: PAYTON, cough, no symptoms, orthopnea, other, see HPI, shortness of breath, sputum, stridor, wheezing Cardiovascular: Denies: PND, chest pain, edema, no symptoms, other, palpitations, see HPI, syncope Gastrointestinal: Reports: abdominal pain, nausea Genitourinary: Denies: discharge, dysuria, frequency, hematuria, incontinence, no symptoms, other, pain, retention, see HPI, urgency, vag bleed/dc Musculoskeletal: Denies: back pain, gout, joint pain, joint swelling, muscle pain, muscle stiffness, no symptoms, other, see HPI Skin: Denies: change in color, change in hair/nails, dryness, lesions, no symptoms, other, rash, see HPI Psychiatric: Denies: HI, SI, anxiety, depressed feelings, emotional problems, hallucinations, no symptoms, other, prior hx, see HPI Neurological: Denies: dizziness, focal weakness, headache, no symptoms, numbness, other, paresthesia, see HPI, seizure, syncope, tingling, tremors Endocrine: Denies: excessive sweating, flushing, increased thirst, increased urine, intolerance to temperature, no symptoms, other, see HPI, unexplained weight loss Hematologic/Lymphatic: Denies: anemia, blood clots, diathesis, easy bleeding, easy bruising, no symptoms, other, see HPI, swollen glands Physical Exam General Appearance: WD/WN, no apparent distress, alert Lines, tubes and drains: peripheral HEENT: normocephalic, atraumatic, PERRL Neck: non-tender Respiratory/Chest: normal breath sounds - on supplemental O2 Cardiovascular/Chest: normal peripheral pulses, regular rhythm Abdomen: normal bowel sounds, soft, tender, other - soft, tender in RUQ and epigastri region, no rebound, no guarding Extremities: normal range of motion Neurologic: 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 normal, alert, oriented x 3, responsive Last 24 Hour Vital Signs Date Time Temp Pulse Resp B/P Pulse Ox O2 Delivery O2 Flow Rate FiO2 12/14/16 11:18 96.8 69 19 141/48 99 Nasal Cannula 2.0 12/14/16 09:22 89 138/50 12/14/16 09:21 89 138/50 12/14/16 09:21 89 12/14/16 08:10 96.5 89 20 138/50 99 Nasal Cannula 2.0 12/14/16 08:00 81 12/14/16 04:00 74 12/14/16 04:00 98.2 93 20 125/67 98 Room Air 2.0 12/14/16 00:00 71 12/14/16 00:00 97.7 72 24 126/42 97 Nasal Cannula 2.0 12/13/16 21:08 82 127/46 12/13/16 20:00 67 12/13/16 20:00 97.2 82 19 127/46 98 Nasal Cannula 3.0 12/13/16 16:00 97.5 85 20 142/56 98 Nasal Cannula 3.0 12/13/16 16:00 87 12/13/16 12:00 80 12/13/16 11:47 97.5 78 20 136/50 96 Nasal Cannula 2.0 Intake and Output 12/13/16 12/14/16 19:00 07:00 Intake Total 635.2 ml 1420 ml Output Total 600 ml 1400 ml Balance 35.2 ml 20 ml Intake Oral 120 ml 500 ml IV Total 515.2 ml 920 ml Output Urine Total 600 ml 1400 ml # Bowel Movements 2 Laboratory Tests Test 12/14/16 09:10 White Blood Count 16.7 K/UL (4.8-10.8) H Red Blood Count 3.77 M/UL (4.20-5.40) L Hemoglobin 11.3 G/DL (12.0-16.0) L Hematocrit 35.9 % (37.0-47.0) L Mean Corpuscular Volume 95 FL (80-99) Mean Corpuscular Hemoglobin 29.9 PG (27.0-31.0) Mean Corpuscular Hemoglobin Concent 31.4 G/DL (32.0-36.0) L Red Cell Distribution Width 14.1 % (11.6-14.8) Platelet Count 169 K/UL (150-450) Mean Platelet Volume 10.3 FL (6.5-10.1) H Neutrophils (%) (Auto) % (45.0-75.0) Lymphocytes (%) (Auto) % (20.0-45.0) Monocytes (%) (Auto) % (1.0-10.0) Eosinophils (%) (Auto) % (0.0-3.0) Basophils (%) (Auto) % (0.0-2.0) Differential Total Cells Counted 100 Neutrophils % (Manual) 84 % (45-75) H Lymphocytes % (Manual) 5 % (20-45) L Monocytes % (Manual) 8 % (1-10) Eosinophils % (Manual) 1 % (0-3) Basophils % (Manual) 0 % (0-2) Band Neutrophils 2 % (0-8) Platelet Estimate Adequate Platelet Morphology Normal Red Blood Cell Morphology Normal Sodium Level 141 mEQ/L (135-145) Potassium Level 3.7 mEQ/L (3.4-4.9) Chloride Level 100 mEQ/L (98-107) Carbon Dioxide Level 27 mEQ/L (20-30) Anion Gap 14 (5-15) Blood Urea Nitrogen 28 mg/dL (7-23) #H Creatinine 0.7 mg/dL (0.5-0.9) Estimat Glomerular Filtration Rate > 60 mL/min (>60) Glucose Level 234 mg/dL (74-106) H Calcium Level 7.9 mg/dL (8.6-10.2) L Lipase 105 U/L (< 60) H Height (Feet): 5 Height (Inches): 1.00 Weight (Pounds): 145 Medications Current Medications Medications (Trade) Dose Ordered Sig/Lisbeth Route PRN Reason Start Time Stop Time Status Last Admin Dose Admin Acetaminophen (Tylenol) 650 mg Q4H PRN ORAL fever 12/10/16 09:00 01/09/17 08:59 Amlodipine Besylate (Norvasc) 5 mg DAILY ORAL 12/10/16 09:00 01/09/17 08:59 12/14/16 09:22 Dextrose (Dextrose 50%) STAT PRN IV Hypoglycemia 12/11/16 05:00 01/10/17 04:59 Dextrose/Sodium Chloride (D5 0.45% NS) 1,000 ml @ 100 mls/hr Q10H IV 12/10/16 16:30 01/09/17 16:29 12/14/16 09:27 Digoxin (Lanoxin) 0.125 mg DAILY ORAL 12/10/16 09:00 01/09/17 08:59 12/14/16 09:21 Enoxaparin Sodium (Lovenox) 70 mg Q12HR SUBQ 12/13/16 13:30 01/12/17 13:29 12/14/16 09:24 Meropenem/Sodium Chloride (Merrem/Sodium Chloride) 110 ml @ 220 mls/hr Q12HR@0100,1300 IVPB 12/12/16 01:00 12/17/16 00:59 12/14/16 00:29 Metoprolol Tartrate (Lopressor) 37.5 mg Q12HR ORAL 12/11/16 21:00 01/10/17 20:59 12/14/16 09:21 Morphine Sulfate (Morphine Sulfate) 4 mg Q4H PRN IVP Severe Pain (Pain Scale 7-10) 12/11/16 14:45 12/18/16 14:44 12/12/16 21:31 Nitroglycerin (Ntg) 0.4 mg Q5M X 3 DOSES PRN SL Prn Chest Pain 12/10/16 06:15 01/09/17 06:14 Ondansetron HCl (Zofran) 4 mg Q6H PRN IVP Nausea & Vomiting 12/10/16 12:00 01/09/17 11:59 12/10/16 09:14 Pantoprazole 40 mg 40 mg EVERY 12 HOURS ORAL 12/10/16 21:00 01/09/17 20:59 12/14/16 09:22 Polyethylene Glycol (Miralax) 17 gm HSPRN PRN ORAL Constipation 12/11/16 05:00 01/10/17 04:59 Sucralfate (Carafate) 1 gm FOUR TIMES A DAY ORAL 12/10/16 09:00 01/09/17 08:59 12/14/16 09:22 Temazepam 15 mg 15 mg HSPRN PRN ORAL Insomnia 12/11/16 05:00 12/18/16 04:59 12/13/16 21:35 Assessment/Plan Status: stable Assessment/Plan 71F gallstone pancreatitis. Afebrile, HD stable, leukocytosis, LFT's improving. Given severity of inflammation on CT would not proceed with cholecystectomy at this time. patient needs some bowel rest and time for inflammation to subside prior. Would recommend potential cholecystectomy during this admission but after some cool down period Would keep her NPO with IV Fluids IV Abx Trend labs. As she improves slowly will discuss surgical options with patient. Rodrigo Andino Dec 14, 2016 11:40
[2016-12-14 16:00] VITALS: BP 137/50
[2016-12-14 17:48] LABS: MEAN CORPUSCULAR HGB CONC 31.4 G/DL (32.0-36.0); MEAN CORPUSCULAR VOLUME 96 FL (80-99); MEAN PLATELET VOLUME 9.4 FL (6.5-10.1); PLATELET COUNT 164 K/UL (150-450); RED CELL DISTRIBUTION WIDTH 14.2 % (11.6-14.8); WHITE BLOOD COUNT 19.6 K/UL (4.8-10.8)
[2016-12-14 18:47] LABS: LYMPHOCYTES % (MANUAL) 10 % (20-45); NEUTROPHILS % (MANUAL) 81 % (45-75); TOTAL CELLS COUNTED 100
[2016-12-14 18:48] LABS: BAND NEUTROPHILS % (MANUAL) 0 % (0-8); BASOPHILS % (MANUAL) 0 % (0-2); EOSINOPHILS % (MANUAL) 0 % (0-3); PLATELET ESTIMATE ADEQUATE; PLATELET MORPHOLOGY NORMAL
[2016-12-14] MEDS ORDERED: D5 1/2NS 1000ml IV ONE (19:33)
[2016-12-14 20:00] VITALS: BP 129/45
--- NOTE | 2016-12-14 20:28 | Pulmonology Progress Note ---
Assessment/Plan Problems: (1) Sepsis (2) Cholelithiasis (3) ATN (acute tubular necrosis) (4) Phlegmon of pancreas (5) Atrial fibrillation (6) Elevated INR Assessment/Plan amylase and lipase trending down afib and flutter on monitor byers cultures IV antibiotics wbc decreasing increase morphine check wbc vitamin K for elevated INR renal studies, improving surgical consult called, d/w dr Bustos Subjective ROS Limited/Unobtainable: No Constitutional: Reports: anorexia, fatigue, fever Gastrointestinal/Abdominal: Reports: bloating, nausea, vomiting Allergies: Coded Allergies: No Known Allergies (Unverified , 09/28/14) Objective Last 24 Hour Vital Signs Date Time Temp Pulse Resp B/P Pulse Ox O2 Delivery O2 Flow Rate FiO2 12/14/16 20:00 97.7 84 18 129/45 96 Nasal Cannula 2.0 12/14/16 16:00 97.7 84 20 137/50 96 Nasal Cannula 2.0 12/14/16 16:00 83 12/14/16 12:00 61 12/14/16 11:18 96.8 69 19 141/48 99 Nasal Cannula 2.0 12/14/16 09:22 89 138/50 12/14/16 09:21 89 138/50 12/14/16 09:21 89 12/14/16 08:10 96.5 89 20 138/50 99 Nasal Cannula 2.0 12/14/16 08:00 81 12/14/16 04:00 74 12/14/16 04:00 98.2 93 20 125/67 98 Room Air 2.0 12/14/16 00:00 71 12/14/16 00:00 97.7 72 24 126/42 97 Nasal Cannula 2.0 12/13/16 21:08 82 127/46 Intake and Output 12/13/16 12/14/16 19:00 07:00 Intake Total 635.2 ml 1420 ml Output Total 600 ml 1400 ml Balance 35.2 ml 20 ml Intake Oral 120 ml 500 ml IV Total 515.2 ml 920 ml Output Urine Total 600 ml 1400 ml # Bowel Movements 2 General Appearance: no acute distress HEENT: normocephalic, atraumatic, PERRL Respiratory/Chest: chest wall non-tender, decreased breath sounds, accessory muscle use Breasts: no masses Cardiovascular: normal peripheral pulses, normal rate, regular rhythm, no JVD Abdomen: normal bowel sounds, soft, non tender, no organomegaly Genitourinary: normal external genitalia Skin: rash, lesions 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, no motor/sensory deficits Laboratory Tests 12/14/16 09:10: White Blood Count 16.7H, Red Blood Count 3.77L, Hemoglobin 11.3L, Hematocrit 35.9L, Mean Corpuscular Volume 95, Mean Corpuscular Hemoglobin 29.9, Mean Corpuscular Hemoglobin Concent 31.4L, Red Cell Distribution Width 14.1, Platelet Count 169, Mean Platelet Volume 10.3H, Neutrophils (%) (Auto) , Lymphocytes (%) (Auto) , Monocytes (%) (Auto) , Eosinophils (%) (Auto) , Basophils (%) (Auto) , Differential Total Cells Counted 100, Neutrophils % ( Manual) 84H, Lymphocytes % (Manual) 5L, Monocytes % (Manual) 8, Eosinophils % ( Manual) 1, Basophils % (Manual) 0, Band Neutrophils 2, Platelet Estimate Adequate, Platelet Morphology Normal, Red Blood Cell Morphology Normal, Sodium Level 141, Potassium Level 3.7, Chloride Level 100, Carbon Dioxide Level 27, Anion Gap 14, Blood Urea Nitrogen 28#H, Creatinine 0.7, Estimat Glomerular Filtration Rate > 60, Glucose Level 234H, Calcium Level 7.9L, Lipase 105H 12/14/16 17:06: White Blood Count 19.6H, Red Blood Count 3.60L, Hemoglobin 10.8L, Hematocrit 34.4L, Mean Corpuscular Volume 96, Mean Corpuscular Hemoglobin 30.0, Mean Corpuscular Hemoglobin Concent 31.4L, Red Cell Distribution Width 14.2, Platelet Count 164, Mean Platelet Volume 9.4, Neutrophils (%) (Auto) , Lymphocytes (%) (Auto) , Monocytes (%) (Auto) , Eosinophils (%) (Auto) , Basophils (%) (Auto) , Differential Total Cells Counted 100, Neutrophils % ( Manual) 81H, Lymphocytes % (Manual) 10L, Monocytes % (Manual) 9, Eosinophils % ( Manual) 0, Basophils % (Manual) 0, Band Neutrophils 0, Platelet Estimate Adequate, Platelet Morphology Normal, Red Blood Cell Morphology Normal Current Medications Medications (Trade) Dose Ordered Sig/Lisbeth Route PRN Reason Start Time Stop Time Status Last Admin Dose Admin Acetaminophen (Tylenol) 650 mg Q4H PRN ORAL fever 12/10/16 09:00 01/09/17 08:59 Amlodipine Besylate (Norvasc) 5 mg DAILY ORAL 12/10/16 09:00 01/09/17 08:59 12/14/16 09:22 Dextrose (Dextrose 50%) STAT PRN IV Hypoglycemia 12/11/16 05:00 01/10/17 04:59 Dextrose/Sodium Chloride (D5 0.45% NS) 1,000 ml @ 100 mls/hr Q10H IV 12/10/16 16:30 01/09/17 16:29 12/14/16 09:27 Digoxin (Lanoxin) 0.125 mg DAILY ORAL 12/10/16 09:00 01/09/17 08:59 12/14/16 09:21 Enoxaparin Sodium (Lovenox) 70 mg Q12HR SUBQ 12/13/16 13:30 01/12/17 13:29 12/14/16 09:24 Meropenem/Sodium Chloride (Merrem/Sodium Chloride) 110 ml @ 220 mls/hr Q12HR@0100,1300 IVPB 12/12/16 01:00 12/17/16 00:59 12/14/16 12:22 Metoprolol Tartrate (Lopressor) 37.5 mg Q12HR ORAL 12/11/16 21:00 01/10/17 20:59 12/14/16 09:21 Morphine Sulfate (Morphine Sulfate) 4 mg Q4H PRN IVP Severe Pain (Pain Scale 7-10) 12/11/16 14:45 12/18/16 14:44 12/12/16 21:31 Nitroglycerin (Ntg) 0.4 mg Q5M X 3 DOSES PRN SL Prn Chest Pain 12/10/16 06:15 01/09/17 06:14 Ondansetron HCl (Zofran) 4 mg Q6H PRN IVP Nausea & Vomiting 12/10/16 12:00 01/09/17 11:59 12/10/16 09:14 Pantoprazole 40 mg 40 mg EVERY 12 HOURS ORAL 12/10/16 21:00 01/09/17 20:59 12/14/16 09:22 Polyethylene Glycol (Miralax) 17 gm HSPRN PRN ORAL Constipation 12/11/16 05:00 01/10/17 04:59 Sucralfate (Carafate) 1 gm FOUR TIMES A DAY ORAL 12/10/16 09:00 01/09/17 08:59 12/14/16 17:13 Temazepam 15 mg 15 mg HSPRN PRN ORAL Insomnia 12/11/16 05:00 12/18/16 04:59 12/13/16 21:35 TONY BRIDGES Dec 14, 2016 20:28
[2016-12-15 00:15] VITALS: BP 137/49
[2016-12-15] MEDS: Meropenem 1gm/NS 110ml IVPB SCH ×4 (00:23→12:19)
[2016-12-15 04:15] VITALS: BP 140/56
[2016-12-15 05:07] LABS: ALANINE AMINOTRANSFERASE 13 U/L (3-33); ALBUMIN/GLOBULIN RATIO 0.6 (1.0-2.7); ANION GAP 8 (5-15); ASPARTATE AMINO TRANSFERASE 24 U/L (5-40); CALCIUM 8.3 mg/dL (8.6-10.2); CARBON DIOXIDE 31 mEQ/L (20-30); CHLORIDE 101 mEQ/L (98-107); CREATININE 0.6 mg/dL (0.5-0.9); GLOMERULAR FILTRATION RATE > 60 mL/min (>60); HEMOLYSIS 1; LIPASE 169 U/L (< 60); POTASSIUM 4.2 mEQ/L (3.4-4.9); SODIUM 140 mEQ/L (135-145); TOTAL PROTEIN 5.9 g/dL (6.6-8.7)
[2016-12-15] MEDS: D5 1/2NS 1,000 ML IV SCH ×2 (06:43→12:20)
[2016-12-15 07:45] VITALS: BP 151/66
[2016-12-15] MEDS: Sucralfate 1gm tab ORAL SCH ×4 (08:31→21:53)
[2016-12-15] MEDS: Digoxin 0.125mg tab ORAL SCH (08:32)
[2016-12-15] MEDS: Metoprolol 25mg tab ORAL SCH ×2 (08:32→21:57)
[2016-12-15] MEDS: Enoxaparin Sodium 300mg/3ml vial SUBQ SCH ×2 (08:33→21:56)
--- NOTE | 2016-12-15 11:15 | Infectious Diseases Prog Note ---
Assessment/Plan Assessment/Plan ASSESSMENT: Pancreatitis recurrent MRCP : Cholelithiasis. There is also a calculus within the duct adjacent to the gallbladder Pancreatic Enzymes improving Leukocytosis ( SIRS ) cholelithiasis : US of liver : Incidental finding of cholelithiasis and mild gallbladder wall thickening positive sonographic Diaz's sign LFT : Nl ARF SP aortic stenosis mitral stenosis status post mitral valve replacement AFib Pulmonary hypertension PLAN: - cont Merrem d# 6 / - monitor CBC, temperatures, - Monitor culture ( BL) - monitor LFT - GI f/u - Sx is following for possible Cholecystectomy later Subjective Constitutional: Denies: anorexia, chills, drenching sweats, fatigue, fever, no symptoms, other Allergies: Coded Allergies: No Known Allergies (Unverified , 09/28/14) Objective Vital Signs Last 24 Hour Vital Signs Date Time Temp Pulse Resp B/P Pulse Ox O2 Delivery O2 Flow Rate FiO2 12/15/16 08:32 79 151/66 12/15/16 08:32 79 12/15/16 08:32 79 151/66 12/15/16 08:00 83 12/15/16 07:45 96.8 79 20 151/66 98 Nasal Cannula 2.0 12/15/16 04:15 97.0 58 20 140/56 96 12/15/16 04:00 81 12/15/16 00:15 97.2 57 20 137/49 98 Nasal Cannula 2.0 12/15/16 00:00 68 12/14/16 21:18 84 129/45 12/14/16 20:00 79 12/14/16 20:00 97.7 84 18 129/45 96 Nasal Cannula 2.0 12/14/16 16:00 97.7 84 20 137/50 96 Nasal Cannula 2.0 12/14/16 16:00 83 12/14/16 12:00 61 12/14/16 11:18 96.8 69 19 141/48 99 Nasal Cannula 2.0 Height (Feet): 5 Height (Inches): 1.00 Weight (Pounds): 145 HEENT: anicteric Respiratory/Chest: normal breath sounds Cardiovascular: regular rhythm Abdomen: no organomegaly Microbiology Date/Time Source Procedure Growth Status 12/14/16 19:59 Stool Clostridium difficile Toxin Assay - Final Complete Laboratory Tests Test 12/14/16 17:06 12/14/16 19:59 12/15/16 03:52 White Blood Count 19.6 K/UL (4.8-10.8) H Red Blood Count 3.60 M/UL (4.20-5.40) L Hemoglobin 10.8 G/DL (12.0-16.0) L Hematocrit 34.4 % (37.0-47.0) L Mean Corpuscular Volume 96 FL (80-99) Mean Corpuscular Hemoglobin 30.0 PG (27.0-31.0) Mean Corpuscular Hemoglobin Concent 31.4 G/DL (32.0-36.0) L Red Cell Distribution Width 14.2 % (11.6-14.8) Platelet Count 164 K/UL (150-450) Mean Platelet Volume 9.4 FL (6.5-10.1) Neutrophils (%) (Auto) % (45.0-75.0) Lymphocytes (%) (Auto) % (20.0-45.0) Monocytes (%) (Auto) % (1.0-10.0) Eosinophils (%) (Auto) % (0.0-3.0) Basophils (%) (Auto) % (0.0-2.0) Differential Total Cells Counted 100 Neutrophils % (Manual) 81 % (45-75) H Lymphocytes % (Manual) 10 % (20-45) L Monocytes % (Manual) 9 % (1-10) Eosinophils % (Manual) 0 % (0-3) Basophils % (Manual) 0 % (0-2) Band Neutrophils 0 % (0-8) Platelet Estimate Adequate Platelet Morphology Normal Red Blood Cell Morphology Normal Stool Occult Blood Positive (NEGATIVE) Sodium Level 140 mEQ/L (135-145) Potassium Level 4.2 mEQ/L (3.4-4.9) Chloride Level 101 mEQ/L (98-107) Carbon Dioxide Level 31 mEQ/L (20-30) H Anion Gap 8 (5-15) Blood Urea Nitrogen 20 mg/dL (7-23) Creatinine 0.6 mg/dL (0.5-0.9) Estimat Glomerular Filtration Rate > 60 mL/min (>60) Glucose Level 175 mg/dL (74-106) H Calcium Level 8.3 mg/dL (8.6-10.2) L Total Bilirubin 1.0 mg/dL (0.0-1.2) Aspartate Amino Transf (AST/SGOT) 24 U/L (5-40) Alanine Aminotransferase (ALT/SGPT) 13 U/L (3-33) Alkaline Phosphatase 136 U/L (35-104) H Total Protein 5.9 g/dL (6.6-8.7) L Albumin 2.4 g/dL (3.5-5.2) L Globulin 3.5 g/dL Albumin/Globulin Ratio 0.6 (1.0-2.7) L Lipase 169 U/L (< 60) H Current Medications Medications (Trade) Dose Ordered Sig/Lisbeth Route PRN Reason Start Time Stop Time Status Last Admin Dose Admin Acetaminophen (Tylenol) 650 mg Q4H PRN ORAL fever 12/10/16 09:00 01/09/17 08:59 Amlodipine Besylate (Norvasc) 5 mg DAILY ORAL 12/10/16 09:00 01/09/17 08:59 12/15/16 08:32 Dextrose (Dextrose 50%) STAT PRN IV Hypoglycemia 12/11/16 05:00 01/10/17 04:59 Dextrose/Sodium Chloride (D5 0.45% NS) 1,000 ml @ 100 mls/hr Q10H IV 12/10/16 16:30 01/09/17 16:29 12/15/16 06:43 Digoxin (Lanoxin) 0.125 mg DAILY ORAL 12/10/16 09:00 01/09/17 08:59 12/15/16 08:32 Enoxaparin Sodium (Lovenox) 70 mg Q12HR SUBQ 12/13/16 13:30 01/12/17 13:29 12/15/16 08:33 Meropenem/Sodium Chloride (Merrem/Sodium Chloride) 110 ml @ 220 mls/hr Q12HR@0100,1300 IVPB 12/12/16 01:00 12/17/16 00:59 12/15/16 00:23 Metoprolol Tartrate (Lopressor) 37.5 mg Q12HR ORAL 12/11/16 21:00 01/10/17 20:59 12/15/16 08:32 Morphine Sulfate (Morphine Sulfate) 4 mg Q4H PRN IVP Severe Pain (Pain Scale 7-10) 12/11/16 14:45 12/18/16 14:44 12/12/16 21:31 Nitroglycerin (Ntg) 0.4 mg Q5M X 3 DOSES PRN SL Prn Chest Pain 12/10/16 06:15 01/09/17 06:14 Ondansetron HCl (Zofran) 4 mg Q6H PRN IVP Nausea & Vomiting 12/10/16 12:00 01/09/17 11:59 12/10/16 09:14 Pantoprazole 40 mg 40 mg EVERY 12 HOURS ORAL 12/10/16 21:00 01/09/17 20:59 12/15/16 08:32 Polyethylene Glycol (Miralax) 17 gm HSPRN PRN ORAL Constipation 12/11/16 05:00 01/10/17 04:59 Sucralfate (Carafate) 1 gm FOUR TIMES A DAY ORAL 12/10/16 09:00 01/09/17 08:59 12/15/16 08:31 Temazepam 15 mg 15 mg HSPRN PRN ORAL Insomnia 12/11/16 05:00 12/18/16 04:59 12/13/16 21:35 OSCAR ANDERSON M.D. Dec 15, 2016 11:15
[2016-12-15 11:26] VITALS: BP 125/59
--- NOTE | 2016-12-15 11:49 | Pulmonology Progress Note ---
Assessment/Plan Problems: (1) Sepsis (2) Cholelithiasis (3) ATN (acute tubular necrosis) (4) Phlegmon of pancreas (5) Atrial fibrillation (6) Elevated INR Assessment/Plan amylase and lipase trending down afib and flutter on monitor IV antibiotics wbc higher today titrate morphine check wbc watch INR renal studies, improving surgical consult called, d/w aline Forde next week pt might need TPN if continues to be NPO Subjective Interval Events: pain is controlled. wants to eat. still episodes of nausea Allergies: Coded Allergies: No Known Allergies (Unverified , 09/28/14) Objective Last 24 Hour Vital Signs Date Time Temp Pulse Resp B/P Pulse Ox O2 Delivery O2 Flow Rate FiO2 12/15/16 11:26 96.9 63 20 125/59 97 Nasal Cannula 2.0 12/15/16 08:32 79 151/66 12/15/16 08:32 79 12/15/16 08:32 79 151/66 12/15/16 08:00 83 12/15/16 07:45 96.8 79 20 151/66 98 Nasal Cannula 2.0 12/15/16 04:15 97.0 58 20 140/56 96 12/15/16 04:00 81 12/15/16 00:15 97.2 57 20 137/49 98 Nasal Cannula 2.0 12/15/16 00:00 68 12/14/16 21:18 84 129/45 12/14/16 20:00 79 12/14/16 20:00 97.7 84 18 129/45 96 Nasal Cannula 2.0 12/14/16 16:00 97.7 84 20 137/50 96 Nasal Cannula 2.0 12/14/16 16:00 83 12/14/16 12:00 61 Intake and Output 12/14/16 12/15/16 19:00 07:00 Intake Total 1500 ml 1220 ml Output Total 550 ml Balance 950 ml 1220 ml Intake Oral 240 ml IV Total 1260 ml 1220 ml Output Urine Total 550 ml # Voids 2 # Bowel Movements 4 General Appearance: WD/WN HEENT: normocephalic, atraumatic Respiratory/Chest: chest wall non-tender, lungs clear Cardiovascular: normal peripheral pulses Abdomen: normal bowel sounds, soft, non tender Genitourinary: normal external genitalia Skin: no rash Neurologic/Psychiatric: crm administrator II-XII grossly normal Microbiology Date/Time Source Procedure Growth Status 12/14/16 19:59 Stool Clostridium difficile Toxin Assay - Final Complete Laboratory Tests 12/14/16 17:06: White Blood Count 19.6H, Red Blood Count 3.60L, Hemoglobin 10.8L, Hematocrit 34.4L, Mean Corpuscular Volume 96, Mean Corpuscular Hemoglobin 30.0, Mean Corpuscular Hemoglobin Concent 31.4L, Red Cell Distribution Width 14.2, Platelet Count 164, Mean Platelet Volume 9.4, Neutrophils (%) (Auto) , Lymphocytes (%) (Auto) , Monocytes (%) (Auto) , Eosinophils (%) (Auto) , Basophils (%) (Auto) , Differential Total Cells Counted 100, Neutrophils % ( Manual) 81H, Lymphocytes % (Manual) 10L, Monocytes % (Manual) 9, Eosinophils % ( Manual) 0, Basophils % (Manual) 0, Band Neutrophils 0, Platelet Estimate Adequate, Platelet Morphology Normal, Red Blood Cell Morphology Normal 12/14/16 19:59: Stool Occult Blood Positive 12/15/16 03:52: Sodium Level 140, Potassium Level 4.2, Chloride Level 101, Carbon Dioxide Level 31H, Anion Gap 8, Blood Urea Nitrogen 20, Creatinine 0.6, Estimat Glomerular Filtration Rate > 60, Glucose Level 175H, Calcium Level 8.3L, Total Bilirubin 1.0, Aspartate Amino Transf (AST/SGOT) 24, Alanine Aminotransferase (ALT/SGPT) 13, Alkaline Phosphatase 136H, Total Protein 5.9L, Albumin 2.4L, Globulin 3.5, Albumin/Globulin Ratio 0.6L, Lipase 169H Current Medications Medications (Trade) Dose Ordered Sig/Lisbeth Route PRN Reason Start Time Stop Time Status Last Admin Dose Admin Acetaminophen (Tylenol) 650 mg Q4H PRN ORAL fever 12/10/16 09:00 01/09/17 08:59 Amlodipine Besylate (Norvasc) 5 mg DAILY ORAL 12/10/16 09:00 01/09/17 08:59 12/15/16 08:32 Dextrose (Dextrose 50%) STAT PRN IV Hypoglycemia 12/11/16 05:00 01/10/17 04:59 Dextrose/Sodium Chloride (D5 0.45% NS) 1,000 ml @ 100 mls/hr Q10H IV 12/10/16 16:30 01/09/17 16:29 12/15/16 06:43 Digoxin (Lanoxin) 0.125 mg DAILY ORAL 12/10/16 09:00 01/09/17 08:59 12/15/16 08:32 Enoxaparin Sodium (Lovenox) 70 mg Q12HR SUBQ 12/13/16 13:30 01/12/17 13:29 12/15/16 08:33 Meropenem/Sodium Chloride (Merrem/Sodium Chloride) 110 ml @ 220 mls/hr Q12HR@0100,1300 IVPB 12/12/16 01:00 12/17/16 00:59 12/15/16 00:23 Metoprolol Tartrate (Lopressor) 37.5 mg Q12HR ORAL 12/11/16 21:00 01/10/17 20:59 12/15/16 08:32 Morphine Sulfate (Morphine Sulfate) 4 mg Q4H PRN IVP Severe Pain (Pain Scale 7-10) 12/11/16 14:45 12/18/16 14:44 12/12/16 21:31 Nitroglycerin (Ntg) 0.4 mg Q5M X 3 DOSES PRN SL Prn Chest Pain 12/10/16 06:15 01/09/17 06:14 Ondansetron HCl (Zofran) 4 mg Q6H PRN IVP Nausea & Vomiting 12/10/16 12:00 01/09/17 11:59 12/10/16 09:14 Pantoprazole 40 mg 40 mg EVERY 12 HOURS ORAL 12/10/16 21:00 01/09/17 20:59 12/15/16 08:32 Polyethylene Glycol (Miralax) 17 gm HSPRN PRN ORAL Constipation 12/11/16 05:00 01/10/17 04:59 Sucralfate (Carafate) 1 gm FOUR TIMES A DAY ORAL 12/10/16 09:00 01/09/17 08:59 12/15/16 08:31 Temazepam 15 mg 15 mg HSPRN PRN ORAL Insomnia 12/11/16 05:00 12/18/16 04:59 12/13/16 21:35 TONY BRIDGES Dec 15, 2016 11:49
--- NOTE | 2016-12-15 12:02 | General Progress Note ---
Assessment/Plan Assessment/Plan Assessment (1) Pancreatitis ICD Codes: K85.9 - Acute pancreatitis, unspecified SNOMED: 57663367 Qualifiers: Qualified Codes: K85.10 - Biliary acute pancreatitis without necrosis or infection (2) Abdominal pain ICD Codes: R10.9 - Unspecified abdominal pain SNOMED: 66974059, [id number] (3) Iron deficiency anemia ICD Codes: D50.9 - Iron deficiency anemia, unspecified SNOMED: 74234504 (4) Colon polyp ICD Codes: K63.5 - Polyp of colon SNOMED: 62663224 Status: stable Assessment/Plan lipid panel >> normal triglycerides MRCP reviewed >> fu surgical consult per surgical >> maintain patient NPO, pt scheduled for cholecystectomy next week. short term PPN pain mgmt abx monitor lipase >> elevated fu labs Subjective Allergies: Coded Allergies: No Known Allergies (Unverified , 09/28/14) Subjective Feels OK minimally verbal Objective Last 24 Hour Vital Signs Date Time Temp Pulse Resp B/P Pulse Ox O2 Delivery O2 Flow Rate FiO2 12/15/16 11:26 96.9 63 20 125/59 97 Nasal Cannula 2.0 12/15/16 08:32 79 151/66 12/15/16 08:32 79 12/15/16 08:32 79 151/66 12/15/16 08:00 83 12/15/16 07:45 96.8 79 20 151/66 98 Nasal Cannula 2.0 12/15/16 04:15 97.0 58 20 140/56 96 12/15/16 04:00 81 12/15/16 00:15 97.2 57 20 137/49 98 Nasal Cannula 2.0 12/15/16 00:00 68 12/14/16 21:18 84 129/45 12/14/16 20:00 79 12/14/16 20:00 97.7 84 18 129/45 96 Nasal Cannula 2.0 12/14/16 16:00 97.7 84 20 137/50 96 Nasal Cannula 2.0 12/14/16 16:00 83 12/14/16 12:00 61 Intake and Output 12/14/16 12/15/16 19:00 07:00 Intake Total 1500 ml 1220 ml Output Total 550 ml Balance 950 ml 1220 ml Intake Oral 240 ml IV Total 1260 ml 1220 ml Output Urine Total 550 ml # Voids 2 # Bowel Movements 4 Laboratory Tests 12/14/16 17:06: White Blood Count 19.6H, Red Blood Count 3.60L, Hemoglobin 10.8L, Hematocrit 34.4L, Mean Corpuscular Volume 96, Mean Corpuscular Hemoglobin 30.0, Mean Corpuscular Hemoglobin Concent 31.4L, Red Cell Distribution Width 14.2, Platelet Count 164, Mean Platelet Volume 9.4, Neutrophils (%) (Auto) , Lymphocytes (%) (Auto) , Monocytes (%) (Auto) , Eosinophils (%) (Auto) , Basophils (%) (Auto) , Differential Total Cells Counted 100, Neutrophils % ( Manual) 81H, Lymphocytes % (Manual) 10L, Monocytes % (Manual) 9, Eosinophils % ( Manual) 0, Basophils % (Manual) 0, Band Neutrophils 0, Platelet Estimate Adequate, Platelet Morphology Normal, Red Blood Cell Morphology Normal 12/14/16 19:59: Stool Occult Blood Positive 12/15/16 03:52: Sodium Level 140, Potassium Level 4.2, Chloride Level 101, Carbon Dioxide Level 31H, Anion Gap 8, Blood Urea Nitrogen 20, Creatinine 0.6, Estimat Glomerular Filtration Rate > 60, Glucose Level 175H, Calcium Level 8.3L, Total Bilirubin 1.0, Aspartate Amino Transf (AST/SGOT) 24, Alanine Aminotransferase (ALT/SGPT) 13, Alkaline Phosphatase 136H, Total Protein 5.9L, Albumin 2.4L, Globulin 3.5, Albumin/Globulin Ratio 0.6L, Lipase 169H Height (Feet): 5 Height (Inches): 1.00 Weight (Pounds): 145 Objective Elderly woman NCAT supple CTA RRR Abd soft ND NT no edema nonfocal MAXIME EVANS Dec 15, 2016 12:02
--- NOTE | 2016-12-15 13:16 | General Progress Note ---
Progress Note Progress Note Afebrile. Pt continues to c/o upper abdominal pain and back pain. She denies nausea. Abdomen is protruberant, mildly tender in epigastric region. LFTs are okay, lipase remains elevated to 169. We will start PPN today, we can hopefully proceed with a cholecystectomy next week. Kaushal Tran MD Dec 15, 2016 13:16
--- NOTE | 2016-12-15 15:17 | General Progress Note ---
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 on anticoagulation Pulmonary HTN Plan: DC Mathias trial po liquids- Urine studies- Keep BP under control Avoid nephrotoxics K supplement monitor renal parameters Subjective ROS Limited/Unobtainable: No Constitutional: Reports: malaise Allergies: Coded Allergies: No Known Allergies (Unverified , 09/28/14) Objective Last 24 Hour Vital Signs Date Time Temp Pulse Resp B/P Pulse Ox O2 Delivery O2 Flow Rate FiO2 12/15/16 12:00 61 12/15/16 11:26 96.9 63 20 125/59 97 Nasal Cannula 2.0 12/15/16 08:32 79 151/66 12/15/16 08:32 79 12/15/16 08:32 79 151/66 12/15/16 08:00 83 12/15/16 07:45 96.8 79 20 151/66 98 Nasal Cannula 2.0 12/15/16 04:15 97.0 58 20 140/56 96 12/15/16 04:00 81 12/15/16 00:15 97.2 57 20 137/49 98 Nasal Cannula 2.0 12/15/16 00:00 68 12/14/16 21:18 84 129/45 12/14/16 20:00 79 12/14/16 20:00 97.7 84 18 129/45 96 Nasal Cannula 2.0 12/14/16 16:00 97.7 84 20 137/50 96 Nasal Cannula 2.0 12/14/16 16:00 83 Intake and Output 12/14/16 12/15/16 19:00 07:00 Intake Total 1500 ml 1220 ml Output Total 550 ml Balance 950 ml 1220 ml Intake Oral 240 ml IV Total 1260 ml 1220 ml Output Urine Total 550 ml # Voids 2 # Bowel Movements 4 Laboratory Tests 12/14/16 17:06: White Blood Count 19.6H, Red Blood Count 3.60L, Hemoglobin 10.8L, Hematocrit 34.4L, Mean Corpuscular Volume 96, Mean Corpuscular Hemoglobin 30.0, Mean Corpuscular Hemoglobin Concent 31.4L, Red Cell Distribution Width 14.2, Platelet Count 164, Mean Platelet Volume 9.4, Neutrophils (%) (Auto) , Lymphocytes (%) (Auto) , Monocytes (%) (Auto) , Eosinophils (%) (Auto) , Basophils (%) (Auto) , Differential Total Cells Counted 100, Neutrophils % ( Manual) 81H, Lymphocytes % (Manual) 10L, Monocytes % (Manual) 9, Eosinophils % ( Manual) 0, Basophils % (Manual) 0, Band Neutrophils 0, Platelet Estimate Adequate, Platelet Morphology Normal, Red Blood Cell Morphology Normal 12/14/16 19:59: Stool Occult Blood Positive 12/15/16 03:52: Sodium Level 140, Potassium Level 4.2, Chloride Level 101, Carbon Dioxide Level 31H, Anion Gap 8, Blood Urea Nitrogen 20, Creatinine 0.6, Estimat Glomerular Filtration Rate > 60, Glucose Level 175H, Calcium Level 8.3L, Total Bilirubin 1.0, Aspartate Amino Transf (AST/SGOT) 24, Alanine Aminotransferase (ALT/SGPT) 13, Alkaline Phosphatase 136H, Total Protein 5.9L, Albumin 2.4L, Globulin 3.5, Albumin/Globulin Ratio 0.6L, Lipase 169H Height (Feet): 5 Height (Inches): 1.00 Weight (Pounds): 145 General Appearance: no apparent distress Objective other PE not changed KAMINI SNOW Dec 15, 2016 15:17
[2016-12-15 16:00] VITALS: BP 141/54
[2016-12-15] MEDS: Morphine Sulfate 2mg/ml Inj IVP PRN ×2 (17:28→21:53)
[2016-12-15 20:00] VITALS: BP 130/60
--- NOTE | 2016-12-15 20:51 | Cardiology Progress Note ---
Assessment/Plan Assessment/Plan anticoagulation for mechanical mitral valve continue to monitor a fib controlled rate Subjective Subjective the patient is sleeping, but woke up from back pain her dyspnea is at baseline Objective Last 24 Hour Vital Signs Date Time Temp Pulse Resp B/P Pulse Ox O2 Delivery O2 Flow Rate FiO2 12/15/16 16:00 97.7 85 18 141/54 97 Nasal Cannula 2.0 12/15/16 16:00 75 12/15/16 12:00 61 12/15/16 11:26 96.9 63 20 125/59 97 Nasal Cannula 2.0 12/15/16 08:32 79 151/66 12/15/16 08:32 79 12/15/16 08:32 79 151/66 12/15/16 08:00 83 12/15/16 07:45 96.8 79 20 151/66 98 Nasal Cannula 2.0 12/15/16 04:15 97.0 58 20 140/56 96 12/15/16 04:00 81 12/15/16 00:15 97.2 57 20 137/49 98 Nasal Cannula 2.0 12/15/16 00:00 68 12/14/16 21:18 84 129/45 General Appearance: mild distress, other EENT: PERRL/EOMI Neck: supple Rhythm: Afib Cardiovascular: irregularly irregular - metal sound of S1, other Respiratory/Chest: crackles/rales Abdomen: distended, tender Extremities: trace edema Intake and Output 12/14/16 12/15/16 19:00 07:00 Intake Total 1500 ml 1220 ml Output Total 550 ml Balance 950 ml 1220 ml Intake Oral 240 ml IV Total 1260 ml 1220 ml Output Urine Total 550 ml # Voids 2 # Bowel Movements 4 Laboratory Tests Test 12/15/16 03:52 Sodium Level 140 mEQ/L (135-145) Potassium Level 4.2 mEQ/L (3.4-4.9) Chloride Level 101 mEQ/L (98-107) Carbon Dioxide Level 31 mEQ/L (20-30) H Anion Gap 8 (5-15) Blood Urea Nitrogen 20 mg/dL (7-23) Creatinine 0.6 mg/dL (0.5-0.9) Estimat Glomerular Filtration Rate > 60 mL/min (>60) Glucose Level 175 mg/dL (74-106) H Calcium Level 8.3 mg/dL (8.6-10.2) L Total Bilirubin 1.0 mg/dL (0.0-1.2) Aspartate Amino Transf (AST/SGOT) 24 U/L (5-40) Alanine Aminotransferase (ALT/SGPT) 13 U/L (3-33) Alkaline Phosphatase 136 U/L (35-104) H Total Protein 5.9 g/dL (6.6-8.7) L Albumin 2.4 g/dL (3.5-5.2) L Globulin 3.5 g/dL Albumin/Globulin Ratio 0.6 (1.0-2.7) L Lipase 169 U/L (< 60) H Microbiology Date/Time Source Procedure Growth Status 12/14/16 19:59 Stool Clostridium difficile Toxin Assay - Final Complete DAVIAN SIM Dec 15, 2016 20:51
[2016-12-15] MEDS ORDERED: Fat Emulsion Iv 20% 240 ML in Tpn 1,920 ML IV SCH (21:00)
[2016-12-16 00:12] VITALS: BP 144/52
[2016-12-16] MEDS: Meropenem 1gm/NS 110ml IVPB SCH ×4 (01:18→13:26)
[2016-12-16] MEDS: D5 1/2NS 1,000 ML IV SCH ×2 (01:18→13:27)
[2016-12-16] MEDS: Morphine Sulfate 2mg/ml Inj IVP PRN ×3 (02:11→21:43)
[2016-12-16 04:01] VITALS: BP 122/45
[2016-12-16 04:37] LABS: MEAN CORPUSCULAR HEMOGLOBIN 30.4 PG (27.0-31.0); MEAN CORPUSCULAR HGB CONC 31.2 G/DL (32.0-36.0); MEAN CORPUSCULAR VOLUME 97 FL (80-99); MEAN PLATELET VOLUME 9.1 FL (6.5-10.1); PLATELET COUNT 191 K/UL (150-450); RED BLOOD COUNT 3.47 M/UL (4.20-5.40); RED CELL DISTRIBUTION WIDTH 14.5 % (11.6-14.8)
[2016-12-16 05:00] LABS: WHITE BLOOD COUNT 26.3 K/UL (4.8-10.8)
[2016-12-16 05:05] LABS: ALANINE AMINOTRANSFERASE 13 U/L (3-33); ALBUMIN/GLOBULIN RATIO 0.6 (1.0-2.7); ANION GAP 10 (5-15); ASPARTATE AMINO TRANSFERASE 26 U/L (5-40); CALCIUM 8.4 mg/dL (8.6-10.2); CARBON DIOXIDE 28 mEQ/L (20-30); CHLORIDE 102 mEQ/L (98-107); CREATININE 0.7 mg/dL (0.5-0.9); CRP QUANT 10.6 mg/dL (< 0.5); GLOMERULAR FILTRATION RATE > 60 mL/min (>60); HEMOLYSIS 4; MAGNESIUM 2.6 mg/dL (1.7-2.5); PHOSPHORUS 3.7 mg/dL (2.5-4.8); POTASSIUM 4.3 mEQ/L (3.4-4.9); SODIUM 140 mEQ/L (135-145); TOTAL PROTEIN 5.7 g/dL (6.6-8.7)
[2016-12-16 06:05] LABS: ERYTHROCYTE SEDIMENTATION RATE 110 MM/HR (0-30)
[2016-12-16 07:55] VITALS: BP 121/55
--- NOTE | 2016-12-16 07:57 | Infectious Diseases Prog Note ---
Assessment/Plan Assessment/Plan A: Pancreatitis Cholelithiasis, Cholecystitis Mechanical mitral valve Atrial fibrillation Leukocytosis worsening P; continue Meropenem, waiting for surgery f/u CBC Subjective ROS Limited/Unobtainable: Yes Allergies: Coded Allergies: No Known Allergies (Unverified , 09/28/14) Objective Vital Signs Last 24 Hour Vital Signs Date Time Temp Pulse Resp B/P Pulse Ox O2 Delivery O2 Flow Rate FiO2 12/16/16 04:01 97.9 81 19 122/45 96 Nasal Cannula 2.0 12/16/16 04:00 80 12/16/16 00:12 98.5 66 18 144/52 95 Nasal Cannula 12/16/16 00:00 63 12/15/16 21:57 88 130/60 12/15/16 20:00 96.6 88 18 130/60 96 Nasal Cannula 2.0 12/15/16 20:00 80 12/15/16 16:00 97.7 85 18 141/54 97 Nasal Cannula 2.0 12/15/16 16:00 75 12/15/16 12:00 61 12/15/16 11:26 96.9 63 20 125/59 97 Nasal Cannula 2.0 12/15/16 08:32 79 151/66 12/15/16 08:32 79 12/15/16 08:32 79 151/66 12/15/16 08:00 83 Height (Feet): 5 Height (Inches): 1.00 Weight (Pounds): 145 General Appearance: no acute distress HEENT: other - O2 by cannula Respiratory/Chest: lungs clear Cardiovascular: normal rate Abdomen: soft, non tender Extremities: no edema Neurologic/Psychiatric: other - Sleeping Microbiology Date/Time Source Procedure Growth Status 12/14/16 19:59 Stool Clostridium difficile Toxin Assay - Final Complete Laboratory Tests Test 12/16/16 03:48 White Blood Count 26.3 K/UL (4.8-10.8) *H Red Blood Count 3.47 M/UL (4.20-5.40) L Hemoglobin 10.6 G/DL (12.0-16.0) L Hematocrit 33.8 % (37.0-47.0) L Mean Corpuscular Volume 97 FL (80-99) Mean Corpuscular Hemoglobin 30.4 PG (27.0-31.0) Mean Corpuscular Hemoglobin Concent 31.2 G/DL (32.0-36.0) L Red Cell Distribution Width 14.5 % (11.6-14.8) Platelet Count 191 K/UL (150-450) Mean Platelet Volume 9.1 FL (6.5-10.1) Neutrophils (%) (Auto) % (45.0-75.0) Lymphocytes (%) (Auto) % (20.0-45.0) Monocytes (%) (Auto) % (1.0-10.0) Eosinophils (%) (Auto) % (0.0-3.0) Basophils (%) (Auto) % (0.0-2.0) Neutrophils % (Manual) Pending Lymphocytes % (Manual) Pending Platelet Estimate Pending Platelet Morphology Pending Erythrocyte Sedimentation Rate 110 MM/HR (0-30) H Sodium Level 140 mEQ/L (135-145) Potassium Level 4.3 mEQ/L (3.4-4.9) Chloride Level 102 mEQ/L (98-107) Carbon Dioxide Level 28 mEQ/L (20-30) Anion Gap 10 (5-15) Blood Urea Nitrogen 19 mg/dL (7-23) Creatinine 0.7 mg/dL (0.5-0.9) Estimat Glomerular Filtration Rate > 60 mL/min (>60) Glucose Level 175 mg/dL (74-106) H Calcium Level 8.4 mg/dL (8.6-10.2) L Phosphorus Level 3.7 mg/dL (2.5-4.8) Magnesium Level 2.6 mg/dL (1.7-2.5) H Total Bilirubin 0.7 mg/dL (0.0-1.2) Aspartate Amino Transf (AST/SGOT) 26 U/L (5-40) Alanine Aminotransferase (ALT/SGPT) 13 U/L (3-33) Alkaline Phosphatase 199 U/L (35-104) H C-Reactive Protein, Quantitative 10.6 mg/dL (< 0.5) H Total Protein 5.7 g/dL (6.6-8.7) L Albumin 2.2 g/dL (3.5-5.2) L Globulin 3.5 g/dL Albumin/Globulin Ratio 0.6 (1.0-2.7) L Current Medications Medications (Trade) Dose Ordered Sig/Lisbeth Route PRN Reason Start Time Stop Time Status Last Admin Dose Admin Acetaminophen (Tylenol) 650 mg Q4H PRN ORAL fever 12/10/16 09:00 01/09/17 08:59 Amlodipine Besylate (Norvasc) 5 mg DAILY ORAL 12/10/16 09:00 01/09/17 08:59 12/15/16 08:32 Dextrose (D10w) 1,000 ml @ 80 mls/hr [id number] PRN IV If TPN interrupted 12/16/16 21:00 01/15/17 20:59 Dextrose (Dextrose 50%) STAT PRN IV Hypoglycemia 12/11/16 05:00 01/10/17 04:59 Dextrose/Sodium Chloride (D5 0.45% NS) 1,000 ml @ 75 mls/hr [id number] IV 12/15/16 13:00 12/16/16 20:59 12/16/16 01:18 Digoxin (Lanoxin) 0.125 mg DAILY ORAL 12/10/16 09:00 01/09/17 08:59 12/15/16 08:32 Enoxaparin Sodium 70 mg 70 mg Q12HR SUBQ 12/13/16 13:30 01/12/17 13:29 12/15/16 21:56 Fat Emulsion Intravenous/Amino Acids/ Electrolytes/ Dextrose (Intralipid/Tpn) 2,400 ml @ 100 mls/hr Q24H IV 12/16/16 21:00 01/15/17 20:59 UNV Insulin Aspart No Dose Q6HR SUBQ 12/17/16 00:00 01/16/17 00:00 Meropenem/Sodium Chloride (Merrem/Sodium Chloride) 110 ml @ 220 mls/hr Q12HR@0100,1300 IVPB 12/12/16 01:00 12/17/16 00:59 12/16/16 01:18 Metoprolol Tartrate (Lopressor) 37.5 mg Q12HR ORAL 12/11/16 21:00 01/10/17 20:59 12/15/16 21:57 Morphine Sulfate (Morphine Sulfate) 4 mg Q4H PRN IVP Severe Pain (Pain Scale 7-10) 12/11/16 14:45 12/18/16 14:44 12/16/16 02:11 Nitroglycerin (Ntg) 0.4 mg Q5M X 3 DOSES PRN SL Prn Chest Pain 12/10/16 06:15 01/09/17 06:14 Ondansetron HCl (Zofran) 4 mg Q6H PRN IVP Nausea & Vomiting 12/10/16 12:00 01/09/17 11:59 12/10/16 09:14 Pantoprazole 40 mg 40 mg EVERY 12 HOURS ORAL 12/10/16 21:00 01/09/17 20:59 12/15/16 21:53 Phytonadione 10 mg 10 mg QWEEK SUBQ 12/16/16 21:00 01/15/17 20:59 Polyethylene Glycol (Miralax) 17 gm HSPRN PRN ORAL Constipation 12/11/16 05:00 01/10/17 04:59 Sucralfate (Carafate) 1 gm FOUR TIMES A DAY ORAL 12/10/16 09:00 01/09/17 08:59 12/15/16 21:53 Temazepam (Restoril) 15 mg HSPRN PRN ORAL Insomnia 12/11/16 05:00 12/18/16 04:59 12/13/16 21:35 ANA LILIA BEDOLLA Dec 16, 2016 07:57
[2016-12-16] MEDS ORDERED: D5 1/2NS 1000ml IV ONE (08:55)
[2016-12-16] MEDS: Enoxaparin Sodium 300mg/3ml vial SUBQ SCH ×2 (10:10→21:34)
[2016-12-16] MEDS: Sucralfate 1gm tab ORAL SCH ×4 (10:11→21:30)
[2016-12-16] MEDS: Digoxin 0.125mg tab ORAL SCH (10:11)
[2016-12-16] MEDS: Metoprolol 25mg tab ORAL SCH ×2 (10:12→21:32)
[2016-12-16 10:26] LABS: ANISOCYTOSIS 1+; BAND NEUTROPHILS % (MANUAL) 0 % (0-8); BASOPHILS % (MANUAL) 0 % (0-2); EOSINOPHILS % (MANUAL) 0 % (0-3); HYPOCHROMASIA 1+; LYMPHOCYTES % (MANUAL) 5 % (20-45); NEUTROPHILS % (MANUAL) 87 % (45-75); PLATELET ESTIMATE ADEQUATE; PLATELET MORPHOLOGY NORMAL; POLYCHROMASIA 1+; TOTAL CELLS COUNTED 100
[2016-12-16 11:38] VITALS: BP 120/48
--- NOTE | 2016-12-16 11:38 | General Progress Note ---
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 Pulmonary HTN Plan: DC Mathias trial po liquids- Urine studies- Keep BP under control Avoid nephrotoxics K supplement monitor renal parameters Subjective ROS Limited/Unobtainable: No Constitutional: Reports: malaise, weakness Allergies: Coded Allergies: No Known Allergies (Unverified , 09/28/14) Objective Last 24 Hour Vital Signs Date Time Temp Pulse Resp B/P Pulse Ox O2 Delivery O2 Flow Rate FiO2 12/16/16 10:12 87 121/55 12/16/16 10:12 87 121/55 12/16/16 10:11 89 12/16/16 07:55 97.7 87 18 121/55 92 Nasal Cannula 2.0 12/16/16 04:01 97.9 81 19 122/45 96 Nasal Cannula 2.0 12/16/16 04:00 80 12/16/16 00:12 98.5 66 18 144/52 95 Nasal Cannula 12/16/16 00:00 63 12/15/16 21:57 88 130/60 12/15/16 20:00 96.6 88 18 130/60 96 Nasal Cannula 2.0 12/15/16 20:00 80 12/15/16 16:00 97.7 85 18 141/54 97 Nasal Cannula 2.0 12/15/16 16:00 75 12/15/16 12:00 61 Intake and Output 12/15/16 12/16/16 19:00 07:00 Intake Total 1110 ml 1010 ml Output Total 550 ml Balance 560 ml 1010 ml IV Total 1110 ml 1010 ml Output Urine Total 550 ml # Voids 6 # Bowel Movements 3 2 Laboratory Tests 12/16/16 03:48: White Blood Count 26.3*H, Red Blood Count 3.47L, Hemoglobin 10.6L, Hematocrit 33.8L, Mean Corpuscular Volume 97, Mean Corpuscular Hemoglobin 30.4, Mean Corpuscular Hemoglobin Concent 31.2L, Red Cell Distribution Width 14.5, Platelet Count 191, Mean Platelet Volume 9.1, Neutrophils (%) (Auto) , Lymphocytes (%) (Auto) , Monocytes (%) (Auto) , Eosinophils (%) (Auto) , Basophils (%) (Auto) , Differential Total Cells Counted 100, Neutrophils % ( Manual) 87H, Lymphocytes % (Manual) 5L, Monocytes % (Manual) 8, Eosinophils % ( Manual) 0, Basophils % (Manual) 0, Band Neutrophils 0, Platelet Estimate Adequate, Platelet Morphology Normal, Polychromasia 1+, Hypochromasia 1+, Anisocytosis 1+, Erythrocyte Sedimentation Rate 110H, Sodium Level 140, Potassium Level 4.3, Chloride Level 102, Carbon Dioxide Level 28, Anion Gap 10, Blood Urea Nitrogen 19, Creatinine 0.7, Estimat Glomerular Filtration Rate > 60 , Glucose Level 175H, Calcium Level 8.4L, Phosphorus Level 3.7, Magnesium Level 2.6H, Total Bilirubin 0.7, Aspartate Amino Transf (AST/SGOT) 26, Alanine Aminotransferase (ALT/SGPT) 13, Alkaline Phosphatase 199H, C-Reactive Protein, Quantitative 10.6H, Total Protein 5.7L, Albumin 2.2L, Globulin 3.5, Albumin/ Globulin Ratio 0.6L Height (Feet): 5 Height (Inches): 1.00 Weight (Pounds): 145 General Appearance: no apparent distress Objective other PE not changed KAMINI SNOW Dec 16, 2016 11:38
--- NOTE | 2016-12-16 12:21 | General Progress Note ---
Assessment/Plan Assessment/Plan Assessment (1) Pancreatitis ICD Codes: K85.9 - Acute pancreatitis, unspecified SNOMED: 74260892 Qualifiers: Qualified Codes: K85.10 - Biliary acute pancreatitis without necrosis or infection (2) Abdominal pain ICD Codes: R10.9 - Unspecified abdominal pain SNOMED: 51141494, 785961855 (3) Iron deficiency anemia ICD Codes: D50.9 - Iron deficiency anemia, unspecified SNOMED: 90403485 (4) Colon polyp ICD Codes: K63.5 - Polyp of colon SNOMED: 21738706 Status: stable Assessment/Plan lipid panel >> normal triglycerides MRCP reviewed >> fu surgical consult pt scheduled for cholecystectomy next week. Begin Peripheral TPN PICC line in am --> TPN stat CT today pain mgmt abx monitor lipase >> elevated fu labs Subjective Allergies: Coded Allergies: No Known Allergies (Unverified , 09/28/14) Subjective Feels OK minimally verbal no abd pain PPN postponed to today due to pharmacy issue Per RNleena OK'd clear liquids but then am labs noted to have marked leucocytosis Objective Last 24 Hour Vital Signs Date Time Temp Pulse Resp B/P Pulse Ox O2 Delivery O2 Flow Rate FiO2 12/16/16 11:38 97.3 68 19 120/48 99 Nasal Cannula 2.0 12/16/16 10:12 87 121/55 12/16/16 10:12 87 121/55 12/16/16 10:11 89 12/16/16 07:55 97.7 87 18 121/55 92 Nasal Cannula 2.0 12/16/16 04:01 97.9 81 19 122/45 96 Nasal Cannula 2.0 12/16/16 04:00 80 12/16/16 00:12 98.5 66 18 144/52 95 Nasal Cannula 12/16/16 00:00 63 12/15/16 21:57 88 130/60 12/15/16 20:00 96.6 88 18 130/60 96 Nasal Cannula 2.0 12/15/16 20:00 80 12/15/16 16:00 97.7 85 18 141/54 97 Nasal Cannula 2.0 12/15/16 16:00 75 Intake and Output 12/15/16 12/16/16 19:00 07:00 Intake Total 1110 ml 1010 ml Output Total 550 ml Balance 560 ml 1010 ml IV Total 1110 ml 1010 ml Output Urine Total 550 ml # Voids 6 # Bowel Movements 3 2 Laboratory Tests 12/16/16 03:48: White Blood Count 26.3*H, Red Blood Count 3.47L, Hemoglobin 10.6L, Hematocrit 33.8L, Mean Corpuscular Volume 97, Mean Corpuscular Hemoglobin 30.4, Mean Corpuscular Hemoglobin Concent 31.2L, Red Cell Distribution Width 14.5, Platelet Count 191, Mean Platelet Volume 9.1, Neutrophils (%) (Auto) , Lymphocytes (%) (Auto) , Monocytes (%) (Auto) , Eosinophils (%) (Auto) , Basophils (%) (Auto) , Differential Total Cells Counted 100, Neutrophils % ( Manual) 87H, Lymphocytes % (Manual) 5L, Monocytes % (Manual) 8, Eosinophils % ( Manual) 0, Basophils % (Manual) 0, Band Neutrophils 0, Platelet Estimate Adequate, Platelet Morphology Normal, Polychromasia 1+, Hypochromasia 1+, Anisocytosis 1+, Erythrocyte Sedimentation Rate 110H, Sodium Level 140, Potassium Level 4.3, Chloride Level 102, Carbon Dioxide Level 28, Anion Gap 10, Blood Urea Nitrogen 19, Creatinine 0.7, Estimat Glomerular Filtration Rate > 60 , Glucose Level 175H, Calcium Level 8.4L, Phosphorus Level 3.7, Magnesium Level 2.6H, Total Bilirubin 0.7, Aspartate Amino Transf (AST/SGOT) 26, Alanine Aminotransferase (ALT/SGPT) 13, Alkaline Phosphatase 199H, C-Reactive Protein, Quantitative 10.6H, Total Protein 5.7L, Albumin 2.2L, Globulin 3.5, Albumin/ Globulin Ratio 0.6L Height (Feet): 5 Height (Inches): 1.00 Weight (Pounds): 145 Objective Elderly woman NCAT supple CTA RRR Abd soft ND NT no edema nonfocal MAXIME EVANS Dec 16, 2016 12:21
[2016-12-16 15:41] VITALS: BP 127/51
--- NOTE | 2016-12-16 15:51 | Cardiology Progress Note ---
Assessment/Plan Assessment/Plan WBC elevated cardiac no changes will monitor Subjective Subjective thas a lot of back pain and is restless but denies dyspnea Objective Last 24 Hour Vital Signs Date Time Temp Pulse Resp B/P Pulse Ox O2 Delivery O2 Flow Rate FiO2 12/16/16 15:41 97.0 65 18 127/51 94 Nasal Cannula 2.0 12/16/16 11:38 97.3 68 19 120/48 99 Nasal Cannula 2.0 12/16/16 10:12 87 121/55 12/16/16 10:12 87 121/55 12/16/16 10:11 89 12/16/16 07:55 97.7 87 18 121/55 92 Nasal Cannula 2.0 12/16/16 04:01 97.9 81 19 122/45 96 Nasal Cannula 2.0 12/16/16 04:00 80 12/16/16 00:12 98.5 66 18 144/52 95 Nasal Cannula 12/16/16 00:00 63 12/15/16 21:57 88 130/60 12/15/16 20:00 96.6 88 18 130/60 96 Nasal Cannula 2.0 12/15/16 20:00 80 12/15/16 16:00 97.7 85 18 141/54 97 Nasal Cannula 2.0 12/15/16 16:00 75 EENT: PERRL/EOMI Neck: JVD Rhythm: Afib Cardiovascular: bradycardia, other - crispy S1 Respiratory/Chest: crackles/rales Abdomen: distended, tender Extremities: trace edema Intake and Output 12/15/16 12/16/16 19:00 07:00 Intake Total 1110 ml 1010 ml Output Total 550 ml Balance 560 ml 1010 ml IV Total 1110 ml 1010 ml Output Urine Total 550 ml # Voids 6 # Bowel Movements 3 2 Laboratory Tests Test 12/16/16 03:48 White Blood Count 26.3 K/UL (4.8-10.8) *H Red Blood Count 3.47 M/UL (4.20-5.40) L Hemoglobin 10.6 G/DL (12.0-16.0) L Hematocrit 33.8 % (37.0-47.0) L Mean Corpuscular Volume 97 FL (80-99) Mean Corpuscular Hemoglobin 30.4 PG (27.0-31.0) Mean Corpuscular Hemoglobin Concent 31.2 G/DL (32.0-36.0) L Red Cell Distribution Width 14.5 % (11.6-14.8) Platelet Count 191 K/UL (150-450) Mean Platelet Volume 9.1 FL (6.5-10.1) Neutrophils (%) (Auto) % (45.0-75.0) Lymphocytes (%) (Auto) % (20.0-45.0) Monocytes (%) (Auto) % (1.0-10.0) Eosinophils (%) (Auto) % (0.0-3.0) Basophils (%) (Auto) % (0.0-2.0) Differential Total Cells Counted 100 Neutrophils % (Manual) 87 % (45-75) H Lymphocytes % (Manual) 5 % (20-45) L Monocytes % (Manual) 8 % (1-10) Eosinophils % (Manual) 0 % (0-3) Basophils % (Manual) 0 % (0-2) Band Neutrophils 0 % (0-8) Platelet Estimate Adequate Platelet Morphology Normal Polychromasia 1+ Hypochromasia 1+ Anisocytosis 1+ Erythrocyte Sedimentation Rate 110 MM/HR (0-30) H Sodium Level 140 mEQ/L (135-145) Potassium Level 4.3 mEQ/L (3.4-4.9) Chloride Level 102 mEQ/L (98-107) Carbon Dioxide Level 28 mEQ/L (20-30) Anion Gap 10 (5-15) Blood Urea Nitrogen 19 mg/dL (7-23) Creatinine 0.7 mg/dL (0.5-0.9) Estimat Glomerular Filtration Rate > 60 mL/min (>60) Glucose Level 175 mg/dL (74-106) H Calcium Level 8.4 mg/dL (8.6-10.2) L Phosphorus Level 3.7 mg/dL (2.5-4.8) Magnesium Level 2.6 mg/dL (1.7-2.5) H Total Bilirubin 0.7 mg/dL (0.0-1.2) Aspartate Amino Transf (AST/SGOT) 26 U/L (5-40) Alanine Aminotransferase (ALT/SGPT) 13 U/L (3-33) Alkaline Phosphatase 199 U/L (35-104) H C-Reactive Protein, Quantitative 10.6 mg/dL (< 0.5) H Total Protein 5.7 g/dL (6.6-8.7) L Albumin 2.2 g/dL (3.5-5.2) L Globulin 3.5 g/dL Albumin/Globulin Ratio 0.6 (1.0-2.7) L Lipase 141 U/L (< 60) H Microbiology Date/Time Source Procedure Growth Status 12/14/16 19:59 Stool Clostridium difficile Toxin Assay - Final Complete DAVIAN SIM Dec 16, 2016 15:51
--- NOTE | 2016-12-16 16:47 | General Progress Note ---
Progress Note Progress Note Afebrile. Pt has some upper abdominal pain, denies nausea or vomiting. Abdomen is soft, no peritoneal signs. LFTs are improving, as are pancreatic enzymes but WBC is rising to 26.3. She may be evolving a pseudocyst or pancreatic necrosis. She needs supportive care and TPN. There is nothing to be gained by a cholecystectomy at this time. Kaushal Tran MD Dec 16, 2016 16:47
--- NOTE | 2016-12-16 19:06 | Pulmonology Progress Note ---
Assessment/Plan Problems: (1) Sepsis (2) Cholelithiasis (3) ATN (acute tubular necrosis) (4) Phlegmon of pancreas (5) Atrial fibrillation (6) Elevated INR Assessment/Plan afib and flutter on monitor IV antibiotics wbc higher today byers culture titrate morphine check wbc watch INR renal studies, improving surgical consult called, d/w aline Forde next week TPN for now Subjective ROS Limited/Unobtainable: No Interval Events: pain is better controlled. Allergies: Coded Allergies: No Known Allergies (Unverified , 09/28/14) Objective Last 24 Hour Vital Signs Date Time Temp Pulse Resp B/P Pulse Ox O2 Delivery O2 Flow Rate FiO2 12/16/16 16:00 63 12/16/16 15:41 97.0 65 18 127/51 94 Nasal Cannula 2.0 12/16/16 12:00 60 12/16/16 11:38 97.3 68 19 120/48 99 Nasal Cannula 2.0 12/16/16 10:12 87 121/55 12/16/16 10:12 87 121/55 12/16/16 10:11 89 12/16/16 08:00 87 12/16/16 07:55 97.7 87 18 121/55 92 Nasal Cannula 2.0 12/16/16 04:01 97.9 81 19 122/45 96 Nasal Cannula 2.0 12/16/16 04:00 80 12/16/16 00:12 98.5 66 18 144/52 95 Nasal Cannula 12/16/16 00:00 63 12/15/16 21:57 88 130/60 12/15/16 20:00 96.6 88 18 130/60 96 Nasal Cannula 2.0 12/15/16 20:00 80 Intake and Output 12/15/16 12/16/16 19:00 07:00 Intake Total 1110 ml 1010 ml Output Total 550 ml Balance 560 ml 1010 ml IV Total 1110 ml 1010 ml Output Urine Total 550 ml # Voids 6 # Bowel Movements 3 2 General Appearance: WD/WN HEENT: normocephalic, atraumatic Respiratory/Chest: chest wall non-tender, lungs clear Cardiovascular: normal peripheral pulses, normal rate Abdomen: normal bowel sounds Genitourinary: normal external genitalia Extremities: no cyanosis 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 Lymphatic: no neck adenopathy Microbiology Date/Time Source Procedure Growth Status 12/14/16 19:59 Stool Clostridium difficile Toxin Assay - Final Complete Laboratory Tests 12/16/16 03:48: White Blood Count 26.3*H, Red Blood Count 3.47L, Hemoglobin 10.6L, Hematocrit 33.8L, Mean Corpuscular Volume 97, Mean Corpuscular Hemoglobin 30.4, Mean Corpuscular Hemoglobin Concent 31.2L, Red Cell Distribution Width 14.5, Platelet Count 191, Mean Platelet Volume 9.1, Neutrophils (%) (Auto) , Lymphocytes (%) (Auto) , Monocytes (%) (Auto) , Eosinophils (%) (Auto) , Basophils (%) (Auto) , Differential Total Cells Counted 100, Neutrophils % ( Manual) 87H, Lymphocytes % (Manual) 5L, Monocytes % (Manual) 8, Eosinophils % ( Manual) 0, Basophils % (Manual) 0, Band Neutrophils 0, Platelet Estimate Adequate, Platelet Morphology Normal, Polychromasia 1+, Hypochromasia 1+, Anisocytosis 1+, Erythrocyte Sedimentation Rate 110H, Sodium Level 140, Potassium Level 4.3, Chloride Level 102, Carbon Dioxide Level 28, Anion Gap 10, Blood Urea Nitrogen 19, Creatinine 0.7, Estimat Glomerular Filtration Rate > 60 , Glucose Level 175H, Calcium Level 8.4L, Phosphorus Level 3.7, Magnesium Level 2.6H, Total Bilirubin 0.7, Aspartate Amino Transf (AST/SGOT) 26, Alanine Aminotransferase (ALT/SGPT) 13, Alkaline Phosphatase 199H, C-Reactive Protein, Quantitative 10.6H, Total Protein 5.7L, Albumin 2.2L, Globulin 3.5, Albumin/ Globulin Ratio 0.6L, Lipase 141H Current Medications Medications (Trade) Dose Ordered Sig/Lisbeth Route PRN Reason Start Time Stop Time Status Last Admin Dose Admin Acetaminophen (Tylenol) 650 mg Q4H PRN ORAL fever 12/10/16 09:00 01/09/17 08:59 Amlodipine Besylate (Norvasc) 5 mg DAILY ORAL 12/10/16 09:00 01/09/17 08:59 12/16/16 10:12 Dextrose (D10w) 1,000 ml @ 80 mls/hr [id number] PRN IV If TPN interrupted 12/16/16 21:00 5/9/17 20:59 Dextrose (Dextrose 50%) STAT PRN IV Hypoglycemia 12/11/16 05:00 01/10/17 04:59 Dextrose/Sodium Chloride (D5 0.45% NS) 1,000 ml @ 75 mls/hr [id number] IV 12/15/16 13:00 12/16/16 20:59 12/16/16 13:27 Digoxin (Lanoxin) 0.125 mg DAILY ORAL 12/10/16 09:00 01/09/17 08:59 12/16/16 10:11 Enoxaparin Sodium 70 mg 70 mg Q12HR SUBQ 12/13/16 13:30 01/12/17 13:29 12/16/16 10:10 Fat Emulsion Intravenous/Amino Acids/ Electrolytes/ Dextrose (Intralipid/Tpn) 2,400 ml @ 100 mls/hr Q24H IV 12/16/16 21:00 01/15/17 20:59 Heparin Sodium/ Sodium Chloride (Heparin 2000 units/Ns 1000ml premix) 2,000 unit ONCE ONCE INJ 12/17/16 06:00 12/17/16 06:01 Insulin Aspart No Dose Q6HR SUBQ 12/17/16 00:00 01/16/17 00:00 Lidocaine HCl (Xylocaine 1% 30ml) 30 ml ONCE ONCE INJ 12/17/16 06:00 12/17/16 06:01 Meropenem/Sodium Chloride (Merrem/Sodium Chloride) 110 ml @ 220 mls/hr Q12HR@0100,1300 IVPB 12/12/16 01:00 12/17/16 00:59 12/16/16 13:26 Metoprolol Tartrate (Lopressor) 37.5 mg Q12HR ORAL 12/11/16 21:00 01/10/17 20:59 12/16/16 10:12 Morphine Sulfate (Morphine Sulfate) 4 mg Q4H PRN IVP Severe Pain (Pain Scale 7-10) 12/11/16 14:45 12/18/16 14:44 12/16/16 17:25 Nitroglycerin (Ntg) 0.4 mg Q5M X 3 DOSES PRN SL Prn Chest Pain 12/10/16 06:15 01/09/17 06:14 Ondansetron HCl (Zofran) 4 mg Q6H PRN IVP Nausea & Vomiting 12/10/16 12:00 01/09/17 11:59 12/10/16 09:14 Pantoprazole 40 mg 40 mg EVERY 12 HOURS ORAL 12/10/16 21:00 01/09/17 20:59 12/16/16 10:11 Phytonadione 10 mg 10 mg QWEEK SUBQ 12/16/16 21:00 01/15/17 20:59 Polyethylene Glycol (Miralax) 17 gm HSPRN PRN ORAL Constipation 12/11/16 05:00 01/10/17 04:59 Sodium Bicarbonate (Sodium Bicarbonate) 50 ml ONCE ONCE IV 12/17/16 06:00 12/17/16 06:01 Sucralfate (Carafate) 1 gm FOUR TIMES A DAY ORAL 12/10/16 09:00 01/09/17 08:59 12/16/16 17:25 Temazepam (Restoril) 15 mg HSPRN PRN ORAL Insomnia 12/11/16 05:00 12/18/16 04:59 12/13/16 21:35 TONY BRIDGES Dec 16, 2016 19:06
[2016-12-16 20:00] VITALS: BP 145/57
[2016-12-16] MEDS ORDERED: Dextrose 10% 1,000 ML IV PRN (21:00)
[2016-12-16] MEDS ORDERED: PPN IV SCH ×4 (21:00)
[2016-12-16] MEDS ORDERED: Phytonadione 10 mg/mL 1ml amp SUBQ SCH (21:00)
[2016-12-16] MEDS ORDERED: FAT EMULSION IV SCH ×4 (21:00)
[2016-12-17] VITALS (21 sets, daily range): BP systolic 99–150; BP diastolic 32–90
[2016-12-17] MEDS: Insulin NovoLOG Flexpen S/S (Mod) SUBQ SCH ×2 (00:33→05:52)
[2016-12-17 04:38] LABS: ABG ALLEN TEST POSITIVE; ABG BASE EXCESS 0.5; ABG PCO2 138.8 mmHg (35.0-45.0)
[2016-12-17 05:36] LABS: ABG BASE EXCESS -0.3
[2016-12-17 05:37] LABS: ABG ALLEN TEST POSITIVE
[2016-12-17] MEDS ORDERED: Heparin 2000 units/Ns 1000ml INJ ONE (06:00)
[2016-12-17] MEDS ORDERED: Sodium Bicarbonate 8.4% 50ml Inj IV ONE (06:00)
[2016-12-17] MEDS ORDERED: Lidocaine 1% Plain 30 ml INJ ONE (06:00)
[2016-12-17 06:05] LABS: MAGNESIUM 2.6 mg/dL (1.7-2.5)
--- NOTE | 2016-12-17 06:05 | Emergency Room Report ---
Physical Exam Vital Signs Date Time Temp Pulse Resp B/P Pulse Ox O2 Delivery O2 Flow Rate FiO2 12/08/16 21:55 98.1 55 12 143/54 99 Room Air 12/09/16 02:04 2.0 12/17/16 04:35 100 Sp02 EP Interpretation: abnormal General Appearance: severe distress, Stupor Eyes: bilateral eye normal inspection ENT: moist mucus membranes Neck: normal inspection, full range of motion, supple Respiratory: chest non-tender, rales Cardiovascular #1: normal inspection, regular rate, rhythm Gastrointestinal: soft, distended Musculoskeletal: back normal Neurologic: other - no focal deficits. unresponsive Skin: no rash Critical Care Time Critical Care Time Critical care is mandated in this patient who presented with acute respiratory failure. Patient require my urgent intervention to attenuate the risks of respiratory collapse which may lead to cardiovascular collapse and . Critical care time is 35 minutes excluding any reportable procedure. Critical care time included evaluation, multiple reevaluation, looking at old charts, interpreting laboratory and diagnostic data, discussing case with patient and family and consultants, and charting. Intubation Intubation : Consent: Emergent Intubation Method: orotracheal Tube Size (cm): 7.5 Medications: Etomidate, Succinylcholine Breath Sounds after Intubation: equal Intubation Complications: no complications Post Intubation Xray: Yes Progress/Xray Impression: Endotracheal tube in good position. NG tube in good position. Attempts: One Patient Tolerated: Well Complications: None Medical Decision Making Diagnostic Impression: Primary Impression: Pancreatitis Qualified Codes: K85.10 - Biliary acute pancreatitis without necrosis or infection Additional Impressions: Bradycardia Phlegmon of pancreas Respiratory failure requiring intubation ER Course Patient was admitted for severe pancreatitis and had severe respiratory failure with elevated CO2 count. I was asked to evaluate the patient for possible intubation. On my arrival patient is obtunded in severe rest or distress. I proceeded to intubate the patient without any difficulty after giving succinylcholine and etomidate. Patient was placed on the ventilator, chest x- ray was done, and patient transferred to ICU. Prognosis Is poor. Chest X-Ray Diagnostic Results EP Interpretation: Yes Findings: no pneumothorax, other - Cardiomegaly. Endotracheal tube in good position. NG tube in good position. Scattered interstitial infiltrates. Number of Views: 1 Last Vital Signs Date Time Temp Pulse Resp B/P Pulse Ox O2 Delivery O2 Flow Rate FiO2 4/10/17 05:00 75 18 99/39 100 Mechanical Ventilator 100 12/17/16 04:35 98.9 12/17/16 00:00 2.0 Status: improved Disposition: ADMITTED INPATIENT Condition: Critical Referrals: NOT CHOSEN LAURENT/,REFERRING (PCP) PAT CAMARENA M.D. Dec 17, 2016 06:05
[2016-12-17 06:09] LABS: ALBUMIN/GLOBULIN RATIO 0.8 (1.0-2.7); CALCIUM 8.5 mg/dL (8.6-10.2); CREATININE 1.1 mg/dL (0.5-0.9); GLOMERULAR FILTRATION RATE 49.1 mL/min (>60); POTASSIUM 5.2 mEQ/L (3.4-4.9)
[2016-12-17] MEDS ORDERED: Dextrose 10% 1,000 ML IV PRN (07:30)
[2016-12-17] MEDS ORDERED: Nitroglycerin Subl 0.4mg tab (Bottle Of 25) SL PRN (07:30)
[2016-12-17] MEDS ORDERED: Miralax 17gm pkt ORAL PRN (07:30)
--- NOTE | 2016-12-17 08:42 | Diagnostic Imaging Report ---
Indications: Intubation Technique: Portable AP chest Findings: Comparison: 11/19/14 Endotracheal tube has been placed, tip 4 cm above doirs. Nasogastric tube has been placed, tip well below the diaphragm, likely within the stomach. Cardiomegaly, pulmonary vascular redistribution, bilateral interstitial infiltrates have increased. Small right basal pleural effusion persists. Left costophrenic angle now also indistinctness suggesting pleural effusion. Left retrocardiac region now opacified. IMPRESSION: Endotracheal and nasogastric tubes in good positions Increase in bilateral congestive changes with persistent small right, probable new left pleural effusions Underlying atelectasis or pneumonia in left lower lobe cannot be excluded
[2016-12-17] MEDS ORDERED: Digoxin 0.125mg tab ORAL SCH (09:00)
[2016-12-17] MEDS ORDERED: Metoprolol 25mg tab ORAL SCH (09:00)
[2016-12-17] MEDS: Sucralfate 1gm tab ORAL SCH ×4 (10:22→21:36)
[2016-12-17] MEDS: Enoxaparin Sodium 300mg/3ml vial SUBQ SCH ×2 (10:27→21:41)
--- NOTE | 2016-12-17 10:41 | Diagnostic Imaging Report ---
Indications: Abdominal pain, abnormal liver function tests Technique: Continuous helical CT imaging of the abdomen and pelvis was performed with automatic exposure control following administration of oral and intravenous nonionic iodine contrast, on a Siemens sensation [address] scanner. Axial, coronal, and sagittal images were reconstructed at 5 mm slice thickness. CTDI volume(s): 18 mGy Total DLP: 945 mGy-cm Findings: Comparison: 12/08/2016 Pancreatic parenchyma again demonstrates homogeneous enhancement without obvious focal parenchymal abnormality. Pancreatic duct remains nondilated. Confluent low attenuation material surrounding the pancreas and extending into the lesser sac, other surrounding soft tissues appears to have increased in extent. Diffuse mesenteric and omental edema, ascites have significantly increased. Diffuse body wall edema has developed. No associated loculated fluid collections or extraluminal gas collections are identified. Multiple small calcified stones are again noted in the dependent portion of the gallbladder lumen. Gallbladder wall thickening/edema persists. Oral contrast has passed throughout the gastrointestinal tract to the level of the colonic hepatic flexure. Multiple loops of small bowel in the upper abdomen are now moderately dilated, gas and fluid-filled. Associated mild mural thickening not excludable. Descending and sigmoid colon, rectum collapsed, unopacified, limiting evaluation. Small circumscribed low attenuation foci are again noted in right renal cortex. Prominent arterial mural calcifications again noted without obvious flow-limiting stenosis or occlusion. Mesenteric, splenic, portal, hepatic veins, iliac veins and inferior vena cava remain patent and well-opacified without intraluminal filling defect. Remainder visualized abdominopelvic anatomy demonstrates no other obvious acute abnormality. Patchy parenchymal consolidation with air bronchograms has developed in both lung bases. Small bibasal pleural effusions have developed. The heart again demonstrates marked four-chamber enlargement with both mitral and aortic valve prostheses in place. Sternal wires again noted. Disc marginal osteophyte formation again noted in lumbar, lower thoracic spine. No focal skeletal lesions are identified. IMPRESSION: Findings compatible with marked worsening of acute pancreatitis and associated inflammatory changes and third spacing of fluids as described. No evidence of pancreatic necrosis, pseudocyst, or abscess. No evidence of splenic vein thrombosis. Distention of proximal small bowel with possible mild mural thickening, nonobstructive, most likely reactive to above. Intrinsic enteritis not excludable. Limited evaluation of left side of colon due to technical factors described. Intrinsic pathology not excludable. Persistent gallbladder wall thickening/edema likely secondary to presence of ascites. Cholecystitis not excludable. Development of pulmonary bibasal parenchymal consolidation--atelectasis versus pneumonia Stable chronic changes as described including cholelithiasis, probable small right renal cysts, arteriosclerosis, marked cardiomegaly with valve prostheses, degenerative spondylosis Findings discussed with Dr. Landis, requesting physician and consulting associate professor computer science, by telephone at time of this dictation
--- NOTE | 2016-12-17 10:48 | Pulmonolgy Critical Care Note ---
Critical Care - Asmt/Plan Problems: (1) Respiratory failure requiring intubation (2) Sepsis (3) Pancreatitis (4) ATN (acute tubular necrosis) (5) Atrial fibrillation Respiratory: monitor respiratory rate, adjust FIO2, CXR Cardiac: continue to monitor HR/BP Renal: F/U I&O, keep IV fluid, check electrolytes Infectious Disease: check cultures, continue antibiotics Gastrointestinal: hold feedings, other - continue tpn Endocrine: monitor blood sugar Hematologic: monitor H/H, transfuse if hgb<8.5 Neurologic: PRN Ativan, PRN Morphine Affect: PRN ativan Prophylaxis: Protonix Notes Reviewed: cardio, 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 with: nurses, case management assistantcredentialing manager - Objective Last 24 Hour Vital Signs Date Time Temp Pulse Resp B/P Pulse Ox O2 Delivery O2 Flow Rate FiO2 12/17/16 10:23 69 134/34 12/17/16 10:22 69 134/34 12/17/16 10:21 79 12/17/16 09:10 69 16 60 12/17/16 08:00 60 12/17/16 06:50 73 15 100 12/17/16 06:05 Mechanical Ventilator 60 12/17/16 06:00 70 16 108/41 100 Mechanical Ventilator 100 12/17/16 06:00 60 12/17/16 05:00 75 18 99/39 100 Mechanical Ventilator 100 12/17/16 04:59 100 12/17/16 04:41 84 15 100 12/17/16 04:35 98.9 86 15 141/90 100 Mechanical Ventilator 100 12/17/16 04:30 86 12/17/16 04:00 75 12/17/16 00:00 75 12/17/16 00:00 97.2 67 19 131/55 95 Nasal Cannula 2.0 12/16/16 21:32 82 145/48 12/16/16 20:00 97.3 77 19 145/57 95 Nasal Cannula 3.0 12/16/16 20:00 75 12/16/16 16:00 63 12/16/16 15:41 97.0 65 18 127/51 94 Nasal Cannula 2.0 12/16/16 12:00 60 12/16/16 11:38 97.3 68 19 120/48 99 Nasal Cannula 2.0 Status: sedated Condition: critical HEENT: atraumatic Neck: full ROM Lungs: clear Heart: HR/BP stable, HR/BP unstable Abdomen: soft, non-tender, active bowel sounds Extremities: edema Micro: Microbiology Date/Time Source Procedure Growth Status 12/14/16 19:59 Stool Clostridium difficile Toxin Assay - Final Complete Accucheck: 151 Critical Care - Subjective ROS Limited/Unobtainable: Yes ICU Day: intubated this morning and transferred to ICU Condition: critical EKG Rhythm: Sinus Rhythm FI02: 60 Vent Support Breath Rate: 15 Vent Support Mode: AC Vent Tidal Volume: 600 Sputum Amount: Small PEEP: 5.0 PIP: 36 Fluids: TPN I&O: Intake and Output 12/16/16 12/17/16 19:00 07:00 Intake Total 860 ml 800 ml Output Total 250 ml 0 ml Balance 610 ml 800 ml IV Total 860 ml 800 ml Output Urine Total 250 ml 0 ml # Voids 1 # Bowel Movements 1 1 CXR: Cardiomegaly, ET in good position ET-Tube: 7.5 ET Position: 22 Labs: Laboratory Tests Test 12/17/16 04:02 12/17/16 05:00 12/17/16 05:34 Arterial Blood pH 7.014 (7.350-7.450) 7.315 (7.350-7.450) Arterial Blood Partial Pressure CO2 138.8 mmHg (35.0-45.0) *H 53.0 mmHg (35.0-45.0) H Arterial Blood Partial Pressure O2 67.2 mmHg (75.0-100.0) L 263.2 mmHg (75.0-100.0) H Arterial Blood HCO3 34.6 mmol/L (22.0-26.0) H 26.4 mmol/L (22.0-26.0) H Arterial Blood Oxygen Saturation 88.7 % (92.0-98.0) L 99.3 % (92.0-98.0) H Arterial Blood Base Excess 0.5 -0.3 Ok Test Positive Positive Sodium Level 135 mEQ/L (135-145) Potassium Level 5.2 mEQ/L (3.4-4.9) H Chloride Level 95 mEQ/L (98-107) L Carbon Dioxide Level 25 mEQ/L (20-30) Anion Gap 15 (5-15) Blood Urea Nitrogen 30 mg/dL (7-23) H Creatinine 1.1 mg/dL (0.5-0.9) #H Estimat Glomerular Filtration Rate 49.1 mL/min (>60) Glucose Level 156 mg/dL (74-106) H Calcium Level 8.5 mg/dL (8.6-10.2) L Phosphorus Level 6.0 mg/dL (2.5-4.8) H Magnesium Level 2.6 mg/dL (1.7-2.5) H Total Bilirubin 0.8 mg/dL (0.0-1.2) Aspartate Amino Transf (AST/SGOT) 30 U/L (5-40) Alanine Aminotransferase (ALT/SGPT) 12 U/L (3-33) Alkaline Phosphatase 117 U/L (35-104) H Total Protein 5.0 g/dL (6.6-8.7) L Albumin 2.3 g/dL (3.5-5.2) L Globulin 2.7 g/dL Albumin/Globulin Ratio 0.8 (1.0-2.7) L TONY BRIDGES Dec 17, 2016 10:48
[2016-12-17] MEDS ORDERED: Sodium Polystyrene Sulfonate 15gm Powder ORAL ONE (11:00)
--- NOTE | 2016-12-17 11:07 | Infectious Diseases Prog Note ---
Assessment/Plan Assessment/Plan ASSESSMENT: Pancreatitis recurrent CT: Findings compatible with marked worsening of acute pancreatitis MRCP : Cholelithiasis. There is also a calculus within the duct adjacent to the gallbladder Pancreatic Enzymes improving Leukocytosis ( SIRS ) cholelithiasis : US of liver : Incidental finding of cholelithiasis and mild gallbladder wall thickening positive sonographic Diaz's sign LFT : Nl VDRF: Cxray : Increase in bilateral congestive changes with persistent small right , probable new left pleural effusions ARF SP aortic stenosis mitral stenosis status post mitral valve replacement AFib Pulmonary hypertension PLAN: - cont Merrem d# ,add Mycamine - monitor CBC, temperatures, - Monitor culture ( BL) - monitor LFT - GI f/u - Sx is following for possible Cholecystectomy later - VDRF - amylase , Lipase Subjective Constitutional: Denies: anorexia, chills, drenching sweats, fatigue, fever, no symptoms, other Allergies: Coded Allergies: No Known Allergies (Unverified , 09/28/14) Objective Vital Signs Last 24 Hour Vital Signs Date Time Temp Pulse Resp B/P Pulse Ox O2 Delivery O2 Flow Rate FiO2 12/17/16 10:23 69 134/34 12/17/16 10:22 69 134/34 12/17/16 10:21 79 12/17/16 09:10 69 16 60 12/17/16 08:00 60 12/17/16 06:50 73 15 100 12/17/16 06:05 Mechanical Ventilator 60 12/17/16 06:00 70 16 108/41 100 Mechanical Ventilator 100 12/17/16 06:00 60 12/17/16 05:00 75 18 99/39 100 Mechanical Ventilator 100 12/17/16 04:59 100 12/17/16 04:41 84 15 100 12/17/16 04:35 98.9 86 15 141/90 100 Mechanical Ventilator 100 12/17/16 04:30 86 12/17/16 04:00 75 12/17/16 00:00 75 12/17/16 00:00 97.2 67 19 131/55 95 Nasal Cannula 2.0 12/16/16 21:32 82 145/48 12/16/16 20:00 97.3 77 19 145/57 95 Nasal Cannula 3.0 12/16/16 20:00 75 12/16/16 16:00 63 12/16/16 15:41 97.0 65 18 127/51 94 Nasal Cannula 2.0 12/16/16 12:00 60 12/16/16 11:38 97.3 68 19 120/48 99 Nasal Cannula 2.0 Height (Feet): 5 Height (Inches): 1.00 Weight (Pounds): 145 HEENT: normocephalic Respiratory/Chest: lungs clear, decreased breath sounds Cardiovascular: regularly irregular Abdomen: non distended Microbiology Date/Time Source Procedure Growth Status 12/14/16 19:59 Stool Clostridium difficile Toxin Assay - Final Complete Laboratory Tests Test 12/17/16 04:02 12/17/16 05:00 12/17/16 05:34 Arterial Blood pH 7.014 (7.350-7.450) 7.315 (7.350-7.450) Arterial Blood Partial Pressure CO2 138.8 mmHg (35.0-45.0) *H 53.0 mmHg (35.0-45.0) H Arterial Blood Partial Pressure O2 67.2 mmHg (75.0-100.0) L 263.2 mmHg (75.0-100.0) H Arterial Blood HCO3 34.6 mmol/L (22.0-26.0) H 26.4 mmol/L (22.0-26.0) H Arterial Blood Oxygen Saturation 88.7 % (92.0-98.0) L 99.3 % (92.0-98.0) H Arterial Blood Base Excess 0.5 -0.3 Ok Test Positive Positive Sodium Level 135 mEQ/L (135-145) Potassium Level 5.2 mEQ/L (3.4-4.9) H Chloride Level 95 mEQ/L (98-107) L Carbon Dioxide Level 25 mEQ/L (20-30) Anion Gap 15 (5-15) Blood Urea Nitrogen 30 mg/dL (7-23) H Creatinine 1.1 mg/dL (0.5-0.9) #H Estimat Glomerular Filtration Rate 49.1 mL/min (>60) Glucose Level 156 mg/dL (74-106) H Calcium Level 8.5 mg/dL (8.6-10.2) L Phosphorus Level 6.0 mg/dL (2.5-4.8) H Magnesium Level 2.6 mg/dL (1.7-2.5) H Total Bilirubin 0.8 mg/dL (0.0-1.2) Aspartate Amino Transf (AST/SGOT) 30 U/L (5-40) Alanine Aminotransferase (ALT/SGPT) 12 U/L (3-33) Alkaline Phosphatase 117 U/L (35-104) H Total Protein 5.0 g/dL (6.6-8.7) L Albumin 2.3 g/dL (3.5-5.2) L Globulin 2.7 g/dL Albumin/Globulin Ratio 0.8 (1.0-2.7) L Current Medications Medications (Trade) Dose Ordered Sig/Lisbeth Route PRN Reason Start Time Stop Time Status Last Admin Dose Admin Acetaminophen (Tylenol) 650 mg Q4H PRN ORAL fever 12/17/16 08:00 01/16/17 07:59 Amlodipine Besylate (Norvasc) 5 mg DAILY ORAL 12/17/16 09:00 01/16/17 08:59 12/17/16 10:23 Dextrose 1,000 ml @ 80 mls/hr [id number] PRN IV If TPN interrupted 12/17/16 07:30 01/16/17 07:29 Dextrose (Dextrose 50%) STAT PRN IV Hypoglycemia 12/17/16 07:30 01/16/17 07:29 Digoxin (Lanoxin) 0.125 mg DAILY ORAL 12/17/16 09:00 01/16/17 08:59 12/17/16 10:21 Enoxaparin Sodium (Lovenox) 70 mg Q12HR SUBQ 12/17/16 09:00 01/16/17 08:59 12/17/16 10:27 Fat Emulsion Intravenous 480 ml/Amino Acids/ Electrolytes/ Dextrose 2,400 ml @ 100 mls/hr Q24H IV 12/16/16 21:00 12/17/16 20:59 12/16/16 21:50 Fat Emulsion Intravenous/Amino Acids/ Electrolytes/ Dextrose (Intralipid/Tpn) 2,400 ml @ 100 mls/hr Q24H IV 12/17/16 21:00 01/16/17 20:59 UNV Insulin Aspart (NovoLOG) No Dose Q6HR SUBQ 12/17/16 12:00 01/16/17 11:59 Meropenem/Sodium Chloride (Merrem/Sodium Chloride) 110 ml @ 220 mls/hr Q12HR@0100,1300 IVPB 12/17/16 13:00 12/22/16 12:59 Metoprolol Tartrate (Lopressor) 37.5 mg Q12HR ORAL 12/17/16 09:00 01/16/17 08:59 12/17/16 10:22 Morphine Sulfate (Morphine Sulfate) 4 mg Q4H PRN IVP Severe Pain (Pain Scale 7-10) 12/17/16 07:30 12/24/16 07:29 Nitroglycerin (Ntg) 0.4 mg Q5M X 3 DOSES PRN SL Prn Chest Pain 12/17/16 07:30 01/16/17 07:29 Ondansetron HCl (Zofran) 4 mg Q6H PRN IVP Nausea & Vomiting 12/17/16 07:30 01/16/17 07:29 Pantoprazole (Protonix) 40 mg EVERY 12 HOURS ORAL 12/17/16 09:00 01/16/17 08:59 12/17/16 10:23 Phytonadione (Vitamin K) 10 mg QWEEK SUBQ 12/23/16 21:00 01/22/17 20:59 Polyethylene Glycol (Miralax) 17 gm HSPRN PRN ORAL Constipation 12/17/16 07:30 01/16/17 07:29 Sucralfate (Carafate) 1 gm FOUR TIMES A DAY ORAL 12/17/16 09:00 01/16/17 08:59 12/17/16 10:22 Temazepam 15 mg 15 mg HSPRN PRN ORAL Insomnia 12/17/16 07:30 12/24/16 07:29 OSCAR ANDERSON M.D. Dec 17, 2016 11:07
--- NOTE | 2016-12-17 11:59 | General Surgery Progress Note ---
General Surgery-Progress Note Subjective Chief Complaint: alert, nods "yes" to abd pain and /or tenderness. Distended. Symptoms: worse - required intubation, pain same Additional Comments intubated because of respiratory failure, now hemodynamically stable Objective Last 24 Hour Vital Signs Date Time Temp Pulse Resp B/P Pulse Ox O2 Delivery O2 Flow Rate FiO2 12/17/16 11:00 61 15 60 12/17/16 11:00 60 22 130/35 100 Mechanical Ventilator 60 12/17/16 10:23 69 134/34 12/17/16 10:22 69 134/34 12/17/16 10:21 79 12/17/16 10:00 67 16 134/34 100 Mechanical Ventilator 60 12/17/16 09:10 69 16 60 12/17/16 09:00 62 21 111/32 100 Mechanical Ventilator 60 12/17/16 08:00 67 12/17/16 08:00 60 12/17/16 08:00 65 19 122/39 100 Mechanical Ventilator 60 12/17/16 07:00 99.7 64 22 116/32 100 Mechanical Ventilator 60 12/17/16 06:50 73 15 100 12/17/16 06:05 Mechanical Ventilator 60 12/17/16 06:00 70 16 108/41 100 Mechanical Ventilator 100 12/17/16 06:00 60 12/17/16 05:00 75 18 99/39 100 Mechanical Ventilator 100 12/17/16 04:59 100 12/17/16 04:41 84 15 100 12/17/16 04:35 98.9 86 15 141/90 100 Mechanical Ventilator 100 12/17/16 04:30 86 12/17/16 04:00 75 12/17/16 00:00 75 12/17/16 00:00 97.2 67 19 131/55 95 Nasal Cannula 2.0 12/16/16 21:32 82 145/48 12/16/16 20:00 97.3 77 19 145/57 95 Nasal Cannula 3.0 12/16/16 20:00 75 12/16/16 16:00 63 12/16/16 15:41 97.0 65 18 127/51 94 Nasal Cannula 2.0 12/16/16 12:00 60 I&O Intake and Output 12/16/16 12/17/16 19:00 07:00 Intake Total 860 ml 800 ml Output Total 250 ml 0 ml Balance 610 ml 800 ml IV Total 860 ml 800 ml Output Urine Total 250 ml 0 ml # Voids 1 # Bowel Movements 1 1 Cardiovascular: RSR Respiratory: decreased breath sounds - both bases Abdomen: soft, distended Extremities: no edema Laboratory Tests Test 12/17/16 04:02 12/17/16 05:00 12/17/16 05:34 Arterial Blood pH 7.014 (7.350-7.450) 7.315 (7.350-7.450) Arterial Blood Partial Pressure CO2 138.8 mmHg (35.0-45.0) *H 53.0 mmHg (35.0-45.0) H Arterial Blood Partial Pressure O2 67.2 mmHg (75.0-100.0) L 263.2 mmHg (75.0-100.0) H Arterial Blood HCO3 34.6 mmol/L (22.0-26.0) H 26.4 mmol/L (22.0-26.0) H Arterial Blood Oxygen Saturation 88.7 % (92.0-98.0) L 99.3 % (92.0-98.0) H Arterial Blood Base Excess 0.5 -0.3 Ok Test Positive Positive Sodium Level 135 mEQ/L (135-145) Potassium Level 5.2 mEQ/L (3.4-4.9) H Chloride Level 95 mEQ/L (98-107) L Carbon Dioxide Level 25 mEQ/L (20-30) Anion Gap 15 (5-15) Blood Urea Nitrogen 30 mg/dL (7-23) H Creatinine 1.1 mg/dL (0.5-0.9) #H Estimat Glomerular Filtration Rate 49.1 mL/min (>60) Glucose Level 156 mg/dL (74-106) H Calcium Level 8.5 mg/dL (8.6-10.2) L Phosphorus Level 6.0 mg/dL (2.5-4.8) H Magnesium Level 2.6 mg/dL (1.7-2.5) H Total Bilirubin 0.8 mg/dL (0.0-1.2) Aspartate Amino Transf (AST/SGOT) 30 U/L (5-40) Alanine Aminotransferase (ALT/SGPT) 12 U/L (3-33) Alkaline Phosphatase 117 U/L (35-104) H Total Protein 5.0 g/dL (6.6-8.7) L Albumin 2.3 g/dL (3.5-5.2) L Globulin 2.7 g/dL Albumin/Globulin Ratio 0.8 (1.0-2.7) L Imaging CAT scan: persistent and sl worsening 3rd spaced fluid, gallstones, minimal GB thickening, no CBD stone or dilatation, pancreas intact with no necrosis or abscess. Bilateral lung base consolidation, atelectasis vs pneumonia L>R CXR worsening bilateral congestive changes, bilateral atelectasis at bases vs l base pneumonia. Additional Comments Worsening clinical picture in chronically ill female with aortic and mitral valve replacements, acute pancreatitis (gallstone induced likely), no acute cholecystitis apparent. Possible LLL pneumonia, right less likely Intubation required with hemodynamic stability Assessment Additional Comments Cont. ventilator. support, repeat LFT's and CBC, amylase lipase to r/o recrudescence of pancreatitis. No surgery planned at this time. SHANICE CALABRESE Dec 17, 2016 11:59
[2016-12-17] MEDS: Meropenem 1gm/NS 110ml IVPB SCH ×2 (12:04)
[2016-12-17] MEDS: NovoLOG Insulin Flexpen SUBQ SCH ×2 (12:06→18:35)
--- NOTE | 2016-12-17 12:11 | Diagnostic Imaging Report ---
Indications: Long-term central IV access required for chemotherapy including total parenteral nutrition. Technique: The procedure indications, risks, and alternatives were explained to the patient's family who understands and gives consent to proceed. Procedure was performed at bedside. Strict aseptic technique was utilized, including hand washing, use of hat and mask, use of sterile gown and gloves, sterile ultrasound gel and probe cover, prepping of right arm skin with 2% chlorhexidine solution, and application of full-body sterile barrier over this area. Skin and subcutaneous soft tissues were infiltrated with 1% lidocaine and sodium bicarbonate. A small dermatotomy was made, through which the patent, adequate size right basilic vein was punctured percutaneously under direct sonographic guidance with a 21-gauge needle. Exchange was made over a 0.018 inch guidewire for a 5 [place] peel-away sheath. A [employer] Power-PICC 5 [place] dual lumen central venous catheter was cut to 35 cm, then advanced through the sheath over the guidewire. Guidewire and sheath were removed. Both catheter ports were aspirated, then flushed with heparinized saline. Catheter was secured the skin with adhesive dressing. Patient tolerated procedure well without immediate complications. Followup chest radiograph performed. Findings: Both ports aspirate and flush freely. Chest radiograph demonstrates tip of PICC at level of SVC/right atrial junction, no other change from previous exam. IMPRESSION: Bedside placement of peripherally inserted central venous catheter via right basilic vein, working well, may be used.
--- NOTE | 2016-12-17 13:09 | Nephrology Progress Note ---
Assessment/Plan Problem List: (1) Pancreatitis (2) Respiratory failure requiring intubation (3) SIRS (systemic inflammatory response syndrome) (4) Sepsis (5) ATN (acute tubular necrosis) (6) Anemia (7) Ileus (8) HTN (hypertension) Assessment Renal function slightly worse increase K anemia worse Plan Decrease K in TPN vent support watch BP follow labs Discussed with granddaughter Subjective Subjective Seen in ICU Intubated Objective Objective Last 24 Hour Vital Signs Date Time Temp Pulse Resp B/P Pulse Ox O2 Delivery O2 Flow Rate FiO2 12/17/16 12:51 58 15 60 12/17/16 12:00 60 12/17/16 11:00 61 15 60 12/17/16 11:00 60 22 130/35 100 Mechanical Ventilator 60 12/17/16 10:23 69 134/34 12/17/16 10:22 69 134/34 12/17/16 10:21 79 12/17/16 10:00 67 16 134/34 100 Mechanical Ventilator 60 12/17/16 09:10 69 16 60 12/17/16 09:00 62 21 111/32 100 Mechanical Ventilator 60 12/17/16 08:00 67 12/17/16 08:00 60 12/17/16 08:00 65 19 122/39 100 Mechanical Ventilator 60 12/17/16 07:00 99.7 64 22 116/32 100 Mechanical Ventilator 60 12/17/16 06:50 73 15 100 12/17/16 06:05 Mechanical Ventilator 60 12/17/16 06:00 70 16 108/41 100 Mechanical Ventilator 100 12/17/16 06:00 60 12/17/16 05:00 75 18 99/39 100 Mechanical Ventilator 100 12/17/16 04:59 100 12/17/16 04:41 84 15 100 12/17/16 04:35 98.9 86 15 141/90 100 Mechanical Ventilator 100 12/17/16 04:30 86 12/17/16 04:00 75 12/17/16 00:00 75 12/17/16 00:00 97.2 67 19 131/55 95 Nasal Cannula 2.0 12/16/16 21:32 82 145/48 12/16/16 20:00 97.3 77 19 145/57 95 Nasal Cannula 3.0 12/16/16 20:00 75 12/16/16 16:00 63 12/16/16 15:41 97.0 65 18 127/51 94 Nasal Cannula 2.0 Intake and Output 12/16/16 12/17/16 19:00 07:00 Intake Total 860 ml 800 ml Output Total 250 ml 0 ml Balance 610 ml 800 ml IV Total 860 ml 800 ml Output Urine Total 250 ml 0 ml # Voids 1 # Bowel Movements 1 1 Laboratory Tests 12/17/16 04:02: Arterial Blood pH 7.014*L, Arterial Blood Partial Pressure CO2 138.8*H, Arterial Blood Partial Pressure O2 67.2L, Arterial Blood HCO3 34.6H, Arterial Blood Oxygen Saturation 88.7L, Arterial Blood Base Excess 0.5, Ok Test Positive 12/17/16 05:00: Sodium Level 135, Potassium Level 5.2H, Chloride Level 95L, Carbon Dioxide Level 25, Anion Gap 15, Blood Urea Nitrogen 30H, Creatinine 1.1#H, Estimat Glomerular Filtration Rate 49.1, Glucose Level 156H, Calcium Level 8.5L, Phosphorus Level 6.0H, Magnesium Level 2.6H, Total Bilirubin 0.8, Aspartate Amino Transf (AST/SGOT) 30, Alanine Aminotransferase (ALT/SGPT) 12, Alkaline Phosphatase 117H, Total Protein 5.0L, Albumin 2.3L, Globulin 2.7, Albumin/ Globulin Ratio 0.8L 12/17/16 05:34: Arterial Blood pH 7.315L, Arterial Blood Partial Pressure CO2 53.0H, Arterial Blood Partial Pressure O2 263.2H, Arterial Blood HCO3 26.4H, Arterial Blood Oxygen Saturation 99.3H, Arterial Blood Base Excess -0.3, Ok Test Positive Height (Feet): 5 Height (Inches): 1.00 Weight (Pounds): 145 Cardiovascular: normal rate Respiratory/Chest: rhonchi - bilaterally Extremities: moderate edema JESSICA BEDOLLA Dec 17, 2016 13:09
[2016-12-17] MEDS: Micafungin 100 MG in NS 110 ML IVPB SCH (14:00)
[2016-12-17 14:17] LABS: MEAN CORPUSCULAR HEMOGLOBIN 29.8 PG (27.0-31.0); MEAN CORPUSCULAR VOLUME 99 FL (80-99); MEAN PLATELET VOLUME 8.1 FL (6.5-10.1); PLATELET COUNT 201 K/UL (150-450); RED BLOOD COUNT 3.48 M/UL (4.20-5.40); RED CELL DISTRIBUTION WIDTH 14.3 % (11.6-14.8); WHITE BLOOD COUNT 28.2 K/UL (4.8-10.8)
[2016-12-17 14:26] LABS: AMYLASE 323 U/L (10-110); LIPASE 205 U/L (< 60)
[2016-12-17 14:32] LABS: BAND NEUTROPHILS % (MANUAL) 3 % (0-8); BASOPHILS % (MANUAL) 0 % (0-2); EOSINOPHILS % (MANUAL) 0 % (0-3); HYPOCHROMASIA 1+; LYMPHOCYTES % (MANUAL) 3 % (20-45); NEUTROPHILS % (MANUAL) 89 % (45-75); PLATELET ESTIMATE ADEQUATE; PLATELET MORPHOLOGY NORMAL; TOTAL CELLS COUNTED 100
[2016-12-17 14:33] LABS: MACROCYTES 1+
[2016-12-17] MEDS ORDERED: Succinylcholine 20mg/ml 10ml vial ONE (15:23)
[2016-12-17] MEDS ORDERED: Etomidate 40mg/20ml Inj IV ONE (15:23)
[2016-12-17] MEDS ORDERED: Zemuron 50mg/5ml Inj IV ONE (15:23)
[2016-12-17] MEDS: Morphine Sulfate 2mg/ml Inj IVP PRN (15:39)
--- NOTE | 2016-12-17 17:19 | General Progress Note ---
Assessment/Plan Assessment/Plan Assessment Pancreatitis - worsening clinically and by lab criteria cholelithiasis, no e/o choledocholithiasis Leukocytosis likely reactive, but agree with abx Respiratory failure rise in Cr noted Anemia colon polyp Guarded Assessment/Plan change PPN to TPN, since got PICC today will add Sandostatin abx increase IVF watch Cr and other labs critical Subjective Allergies: Coded Allergies: No Known Allergies (Unverified , 09/28/14) Subjective above noted now in ICU, intubated d/w family at bedside Denies abd pain but abd visibly more distended CT reviewed with radiology no e/o CBD stone or CBD dilation on CT WBC, amylase., lipase higher Objective Last 24 Hour Vital Signs Date Time Temp Pulse Resp B/P Pulse Ox O2 Delivery O2 Flow Rate FiO2 12/17/16 16:00 99.0 63 24 105/40 99 Mechanical Ventilator 60 12/17/16 16:00 69 12/17/16 16:00 60 12/17/16 15:00 56 27 137/39 100 Mechanical Ventilator 60 12/17/16 15:00 56 15 60 12/17/16 14:00 52 24 136/40 100 Mechanical Ventilator 60 12/17/16 13:50 99.7 12/17/16 13:00 54 21 136/39 100 Mechanical Ventilator 60 12/17/16 12:51 58 15 60 12/17/16 12:00 53 12/17/16 12:00 60 12/17/16 12:00 101.2 55 15 121/33 99 Mechanical Ventilator 60 12/17/16 11:00 61 15 60 12/17/16 11:00 60 22 130/35 100 Mechanical Ventilator 60 12/17/16 10:23 69 134/34 12/17/16 10:22 69 134/34 12/17/16 10:21 79 12/17/16 10:00 67 16 134/34 100 Mechanical Ventilator 60 12/17/16 09:10 69 16 60 12/17/16 09:00 62 21 111/32 100 Mechanical Ventilator 60 12/17/16 08:00 67 12/17/16 08:00 60 12/17/16 08:00 65 19 122/39 100 Mechanical Ventilator 60 12/17/16 07:00 99.7 64 22 116/32 100 Mechanical Ventilator 60 12/17/16 06:50 73 15 100 12/17/16 06:05 Mechanical Ventilator 60 12/17/16 06:00 70 16 108/41 100 Mechanical Ventilator 100 12/17/16 06:00 60 12/17/16 05:00 75 18 99/39 100 Mechanical Ventilator 100 12/17/16 04:59 100 12/17/16 04:41 84 15 100 12/17/16 04:35 98.9 86 15 141/90 100 Mechanical Ventilator 100 12/17/16 04:30 86 12/17/16 04:00 75 12/17/16 00:00 75 12/17/16 00:00 97.2 67 19 131/55 95 Nasal Cannula 2.0 12/16/16 21:32 82 145/48 12/16/16 20:00 97.3 77 19 145/57 95 Nasal Cannula 3.0 12/16/16 20:00 75 Intake and Output 12/16/16 12/17/16 19:00 07:00 Intake Total 860 ml 800 ml Output Total 250 ml 0 ml Balance 610 ml 800 ml IV Total 860 ml 800 ml Output Urine Total 250 ml 0 ml # Voids 1 # Bowel Movements 1 1 Laboratory Tests 12/17/16 04:02: Arterial Blood pH 7.014*L, Arterial Blood Partial Pressure CO2 138.8*H, Arterial Blood Partial Pressure O2 67.2L, Arterial Blood HCO3 34.6H, Arterial Blood Oxygen Saturation 88.7L, Arterial Blood Base Excess 0.5, Ok Test Positive 12/17/16 05:00: White Blood Count 28.2*H, Red Blood Count 3.48L, Hemoglobin 10.3L, Hematocrit 34.5L, Mean Corpuscular Volume 99, Mean Corpuscular Hemoglobin 29.8, Mean Corpuscular Hemoglobin Concent 30.0L, Red Cell Distribution Width 14.3, Platelet Count 201, Mean Platelet Volume 8.1, Neutrophils (%) (Auto) , Lymphocytes (%) (Auto) , Monocytes (%) (Auto) , Eosinophils (%) (Auto) , Basophils (%) (Auto) , Differential Total Cells Counted 100, Neutrophils % ( Manual) 89H, Lymphocytes % (Manual) 3L, Monocytes % (Manual) 5, Eosinophils % ( Manual) 0, Basophils % (Manual) 0, Band Neutrophils 3, Platelet Estimate Adequate, Platelet Morphology Normal, Hypochromasia 1+, Macrocytosis 1+, Sodium Level 135, Potassium Level 5.2H, Chloride Level 95L, Carbon Dioxide Level 25, Anion Gap 15, Blood Urea Nitrogen 30H, Creatinine 1.1#H, Estimat Glomerular Filtration Rate 49.1, Glucose Level 156H, Calcium Level 8.5L, Phosphorus Level 6.0H, Magnesium Level 2.6H, Total Bilirubin 0.8, Aspartate Amino Transf (AST/ SGOT) 30, Alanine Aminotransferase (ALT/SGPT) 12, Alkaline Phosphatase 117H, Total Protein 5.0L, Albumin 2.3L, Globulin 2.7, Albumin/Globulin Ratio 0.8L, Amylase Level 323H, Lipase 205H 12/17/16 05:34: Arterial Blood pH 7.315L, Arterial Blood Partial Pressure CO2 53.0H, Arterial Blood Partial Pressure O2 263.2H, Arterial Blood HCO3 26.4H, Arterial Blood Oxygen Saturation 99.3H, Arterial Blood Base Excess -0.3, Ok Test Positive 12/17/16 17:00: Total Bilirubin [Pending], Aspartate Amino Transf (AST/SGOT) [Pending], Alanine Aminotransferase (ALT/SGPT) [Pending], Alkaline Phosphatase [Pending], Total Protein [Pending], Albumin [Pending], Amylase Level [Pending], Lipase [Pending] , Direct Bilirubin [Pending] Height (Feet): 5 Height (Inches): 1.00 Weight (Pounds): 145 Objective Elderly woman NCAT, intubated responsive supple CTA RRR Abd soft NT distended no edema MAXIME EVANS Dec 17, 2016 17:19
[2016-12-17 17:54] LABS: BILIRUBIN,DIRECT 0.3 mg/dL (0.1-0.3); TOTAL PROTEIN 4.8 g/dL (6.6-8.7)
--- NOTE | 2016-12-17 18:15 | Cardiology Progress Note ---
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 vavle prosthesis on anticoagulation perm afib on anticoagualtion with couamdin coagulaopathy now elevated dueot med interaction adn disease process leukocytosis note no surgery planned now on a vent need to be diuresed gettign tpn on lovenox i am concerned bout increase in pancreatic enzymes cxr person rev Subjective ROS Limited/Unobtainable: Yes Objective Last 24 Hour Vital Signs Date Time Temp Pulse Resp B/P Pulse Ox O2 Delivery O2 Flow Rate FiO2 12/17/16 17:19 55 15 60 12/17/16 17:00 59 20 127/43 100 Mechanical Ventilator 60 12/17/16 16:00 99.0 63 24 105/40 99 Mechanical Ventilator 60 12/17/16 16:00 69 12/17/16 16:00 60 12/17/16 15:00 56 27 137/39 100 Mechanical Ventilator 60 12/17/16 15:00 56 15 60 12/17/16 14:00 52 24 136/40 100 Mechanical Ventilator 60 12/17/16 13:50 99.7 12/17/16 13:00 54 21 136/39 100 Mechanical Ventilator 60 12/17/16 12:51 58 15 60 12/17/16 12:00 53 12/17/16 12:00 60 12/17/16 12:00 101.2 55 15 121/33 99 Mechanical Ventilator 60 12/17/16 11:00 61 15 60 12/17/16 11:00 60 22 130/35 100 Mechanical Ventilator 60 12/17/16 10:23 69 134/34 12/17/16 10:22 69 134/34 12/17/16 10:21 79 12/17/16 10:00 67 16 134/34 100 Mechanical Ventilator 60 12/17/16 09:10 69 16 60 12/17/16 09:00 62 21 111/32 100 Mechanical Ventilator 60 12/17/16 08:00 67 12/17/16 08:00 60 12/17/16 08:00 65 19 122/39 100 Mechanical Ventilator 60 12/17/16 07:00 99.7 64 22 116/32 100 Mechanical Ventilator 60 12/17/16 06:50 73 15 100 12/17/16 06:05 Mechanical Ventilator 60 12/17/16 06:00 70 16 108/41 100 Mechanical Ventilator 100 12/17/16 06:00 60 12/17/16 05:00 75 18 99/39 100 Mechanical Ventilator 100 12/17/16 04:59 100 12/17/16 04:41 84 15 100 12/17/16 04:35 98.9 86 15 141/90 100 Mechanical Ventilator 100 12/17/16 04:30 86 12/17/16 04:00 75 12/17/16 00:00 75 12/17/16 00:00 97.2 67 19 131/55 95 Nasal Cannula 2.0 12/16/16 21:32 82 145/48 12/16/16 20:00 97.3 77 19 145/57 95 Nasal Cannula 3.0 12/16/16 20:00 75 General Appearance: on vent Intake and Output 12/16/16 12/17/16 19:00 07:00 Intake Total 860 ml 900 ml Output Total 250 ml 0 ml Balance 610 ml 900 ml IV Total 860 ml 900 ml Output Urine Total 250 ml 0 ml # Voids 1 # Bowel Movements 1 1 Laboratory Tests Test 12/17/16 04:02 12/17/16 05:00 12/17/16 05:34 12/17/16 17:00 Arterial Blood pH 7.014 (7.350-7.450) 7.315 (7.350-7.450) Arterial Blood Partial Pressure CO2 138.8 mmHg (35.0-45.0) *H 53.0 mmHg (35.0-45.0) H Arterial Blood Partial Pressure O2 67.2 mmHg (75.0-100.0) L 263.2 mmHg (75.0-100.0) H Arterial Blood HCO3 34.6 mmol/L (22.0-26.0) H 26.4 mmol/L (22.0-26.0) H Arterial Blood Oxygen Saturation 88.7 % (92.0-98.0) L 99.3 % (92.0-98.0) H Arterial Blood Base Excess 0.5 -0.3 Ok Test Positive Positive White Blood Count 28.2 K/UL (4.8-10.8) *H Red Blood Count 3.48 M/UL (4.20-5.40) L Hemoglobin 10.3 G/DL (12.0-16.0) L Hematocrit 34.5 % (37.0-47.0) L Mean Corpuscular Volume 99 FL (80-99) Mean Corpuscular Hemoglobin 29.8 PG (27.0-31.0) Mean Corpuscular Hemoglobin Concent 30.0 G/DL (32.0-36.0) L Red Cell Distribution Width 14.3 % (11.6-14.8) Platelet Count 201 K/UL (150-450) Mean Platelet Volume 8.1 FL (6.5-10.1) Neutrophils (%) (Auto) % (45.0-75.0) Lymphocytes (%) (Auto) % (20.0-45.0) Monocytes (%) (Auto) % (1.0-10.0) Eosinophils (%) (Auto) % (0.0-3.0) Basophils (%) (Auto) % (0.0-2.0) Differential Total Cells Counted 100 Neutrophils % (Manual) 89 % (45-75) H Lymphocytes % (Manual) 3 % (20-45) L Monocytes % (Manual) 5 % (1-10) Eosinophils % (Manual) 0 % (0-3) Basophils % (Manual) 0 % (0-2) Band Neutrophils 3 % (0-8) Platelet Estimate Adequate Platelet Morphology Normal Hypochromasia 1+ Macrocytosis 1+ Sodium Level 135 mEQ/L (135-145) Potassium Level 5.2 mEQ/L (3.4-4.9) H Chloride Level 95 mEQ/L (98-107) L Carbon Dioxide Level 25 mEQ/L (20-30) Anion Gap 15 (5-15) Blood Urea Nitrogen 30 mg/dL (7-23) H Creatinine 1.1 mg/dL (0.5-0.9) #H Estimat Glomerular Filtration Rate 49.1 mL/min (>60) Glucose Level 156 mg/dL (74-106) H Calcium Level 8.5 mg/dL (8.6-10.2) L Phosphorus Level 6.0 mg/dL (2.5-4.8) H Magnesium Level 2.6 mg/dL (1.7-2.5) H Total Bilirubin 0.8 mg/dL (0.0-1.2) 0.7 mg/dL (0.0-1.2) Aspartate Amino Transf (AST/SGOT) 30 U/L (5-40) 25 U/L (5-40) Alanine Aminotransferase (ALT/SGPT) 12 U/L (3-33) 10 U/L (3-33) Alkaline Phosphatase 117 U/L (35-104) H 89 U/L (35-104) Total Protein 5.0 g/dL (6.6-8.7) L 4.8 g/dL (6.6-8.7) L Albumin 2.3 g/dL (3.5-5.2) L 1.7 g/dL (3.5-5.2) L Globulin 2.7 g/dL Albumin/Globulin Ratio 0.8 (1.0-2.7) L Amylase Level 323 U/L (10-110) H 414 U/L (10-110) H Lipase 205 U/L (< 60) H 217 U/L (< 60) H Direct Bilirubin 0.3 mg/dL (0.1-0.3) Microbiology Date/Time Source Procedure Growth Status 12/14/16 19:59 Stool Clostridium difficile Toxin Assay - Final Complete ANNE RAM Dec 17, 2016 18:15
--- NOTE | 2016-12-17 18:25 | Cardiology Progress Note ---
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 vavle prosthesis on anticoagulation perm afib on anticoagualtion with couamdin coagulaopathy now elevated dueot med interaction adn disease process leukocytosis note no surgery planned now on a vent need to be diuresed gettign tpn i am concerned bout increase in pancreatic enzymes and wbc cxr person rev ct result noted d/w rn will decrease thebb due to soem episode of slow heart rate dc dig fro nwo dc lovenos use heparin instead may need to start heparin after 12 hour off lovenox Subjective ROS Limited/Unobtainable: Yes Subjective on the vent Objective Last 24 Hour Vital Signs Date Time Temp Pulse Resp B/P Pulse Ox O2 Delivery O2 Flow Rate FiO2 12/17/16 17:19 55 15 60 12/17/16 17:00 59 20 127/43 100 Mechanical Ventilator 60 12/17/16 16:00 99.0 63 24 105/40 99 Mechanical Ventilator 60 12/17/16 16:00 69 12/17/16 16:00 60 12/17/16 15:00 56 27 137/39 100 Mechanical Ventilator 60 12/17/16 15:00 56 15 60 12/17/16 14:00 52 24 136/40 100 Mechanical Ventilator 60 12/17/16 13:50 99.7 12/17/16 13:00 54 21 136/39 100 Mechanical Ventilator 60 12/17/16 12:51 58 15 60 12/17/16 12:00 53 12/17/16 12:00 60 12/17/16 12:00 101.2 55 15 121/33 99 Mechanical Ventilator 60 12/17/16 11:00 61 15 60 12/17/16 11:00 60 22 130/35 100 Mechanical Ventilator 60 12/17/16 10:23 69 134/34 12/17/16 10:22 69 134/34 12/17/16 10:21 79 12/17/16 10:00 67 16 134/34 100 Mechanical Ventilator 60 12/17/16 09:10 69 16 60 12/17/16 09:00 62 21 111/32 100 Mechanical Ventilator 60 12/17/16 08:00 67 12/17/16 08:00 60 12/17/16 08:00 65 19 122/39 100 Mechanical Ventilator 60 12/17/16 07:00 99.7 64 22 116/32 100 Mechanical Ventilator 60 12/17/16 06:50 73 15 100 12/17/16 06:05 Mechanical Ventilator 60 12/17/16 06:00 70 16 108/41 100 Mechanical Ventilator 100 12/17/16 06:00 60 12/17/16 05:00 75 18 99/39 100 Mechanical Ventilator 100 12/17/16 04:59 100 12/17/16 04:41 84 15 100 12/17/16 04:35 98.9 86 15 141/90 100 Mechanical Ventilator 100 12/17/16 04:30 86 12/17/16 04:00 75 12/17/16 00:00 75 12/17/16 00:00 97.2 67 19 131/55 95 Nasal Cannula 2.0 12/16/16 21:32 82 145/48 12/16/16 20:00 97.3 77 19 145/57 95 Nasal Cannula 3.0 12/16/16 20:00 75 General Appearance: no apparent distress, on vent Neck: supple Cardiovascular: normal rate, regular rhythm Respiratory/Chest: crackles/rales Abdomen: non tender, distended Extremities: trace edema Intake and Output 12/16/16 12/17/16 19:00 07:00 Intake Total 860 ml 900 ml Output Total 250 ml 0 ml Balance 610 ml 900 ml IV Total 860 ml 900 ml Output Urine Total 250 ml 0 ml # Voids 1 # Bowel Movements 1 1 Laboratory Tests Test 12/17/16 04:02 12/17/16 05:00 12/17/16 05:34 12/17/16 17:00 Arterial Blood pH 7.014 (7.350-7.450) 7.315 (7.350-7.450) Arterial Blood Partial Pressure CO2 138.8 mmHg (35.0-45.0) *H 53.0 mmHg (35.0-45.0) H Arterial Blood Partial Pressure O2 67.2 mmHg (75.0-100.0) L 263.2 mmHg (75.0-100.0) H Arterial Blood HCO3 34.6 mmol/L (22.0-26.0) H 26.4 mmol/L (22.0-26.0) H Arterial Blood Oxygen Saturation 88.7 % (92.0-98.0) L 99.3 % (92.0-98.0) H Arterial Blood Base Excess 0.5 -0.3 Ok Test Positive Positive White Blood Count 28.2 K/UL (4.8-10.8) *H Red Blood Count 3.48 M/UL (4.20-5.40) L Hemoglobin 10.3 G/DL (12.0-16.0) L Hematocrit 34.5 % (37.0-47.0) L Mean Corpuscular Volume 99 FL (80-99) Mean Corpuscular Hemoglobin 29.8 PG (27.0-31.0) Mean Corpuscular Hemoglobin Concent 30.0 G/DL (32.0-36.0) L Red Cell Distribution Width 14.3 % (11.6-14.8) Platelet Count 201 K/UL (150-450) Mean Platelet Volume 8.1 FL (6.5-10.1) Neutrophils (%) (Auto) % (45.0-75.0) Lymphocytes (%) (Auto) % (20.0-45.0) Monocytes (%) (Auto) % (1.0-10.0) Eosinophils (%) (Auto) % (0.0-3.0) Basophils (%) (Auto) % (0.0-2.0) Differential Total Cells Counted 100 Neutrophils % (Manual) 89 % (45-75) H Lymphocytes % (Manual) 3 % (20-45) L Monocytes % (Manual) 5 % (1-10) Eosinophils % (Manual) 0 % (0-3) Basophils % (Manual) 0 % (0-2) Band Neutrophils 3 % (0-8) Platelet Estimate Adequate Platelet Morphology Normal Hypochromasia 1+ Macrocytosis 1+ Sodium Level 135 mEQ/L (135-145) Potassium Level 5.2 mEQ/L (3.4-4.9) H Chloride Level 95 mEQ/L (98-107) L Carbon Dioxide Level 25 mEQ/L (20-30) Anion Gap 15 (5-15) Blood Urea Nitrogen 30 mg/dL (7-23) H Creatinine 1.1 mg/dL (0.5-0.9) #H Estimat Glomerular Filtration Rate 49.1 mL/min (>60) Glucose Level 156 mg/dL (74-106) H Calcium Level 8.5 mg/dL (8.6-10.2) L Phosphorus Level 6.0 mg/dL (2.5-4.8) H Magnesium Level 2.6 mg/dL (1.7-2.5) H Total Bilirubin 0.8 mg/dL (0.0-1.2) 0.7 mg/dL (0.0-1.2) Aspartate Amino Transf (AST/SGOT) 30 U/L (5-40) 25 U/L (5-40) Alanine Aminotransferase (ALT/SGPT) 12 U/L (3-33) 10 U/L (3-33) Alkaline Phosphatase 117 U/L (35-104) H 89 U/L (35-104) Total Protein 5.0 g/dL (6.6-8.7) L 4.8 g/dL (6.6-8.7) L Albumin 2.3 g/dL (3.5-5.2) L 1.7 g/dL (3.5-5.2) L Globulin 2.7 g/dL Albumin/Globulin Ratio 0.8 (1.0-2.7) L Amylase Level 323 U/L (10-110) H 414 U/L (10-110) H Lipase 205 U/L (< 60) H 217 U/L (< 60) H Direct Bilirubin 0.3 mg/dL (0.1-0.3) Microbiology Date/Time Source Procedure Growth Status 12/14/16 19:59 Stool Clostridium difficile Toxin Assay - Final Complete ANNE RAM Dec 17, 2016 18:25
[2016-12-17 19:47] LABS: CALCIUM 8.1 mg/dL (8.6-10.2); CREATININE 1.8 mg/dL (0.5-0.9); GLOMERULAR FILTRATION RATE 27.8 mL/min (>60); POTASSIUM 3.3 mEQ/L (3.4-4.9)
[2016-12-17] MEDS: SandoSTATIN 100mcg/ml amp SUBQ SCH (19:54)
[2016-12-17] MEDS ORDERED: TPN IV SCH ×2 (21:00)
[2016-12-17] MEDS ORDERED: FAT EMULSION IV SCH ×2 (21:00)
[2016-12-17] MEDS ORDERED: Metoprolol Tartrate 12.5mg TAB ORAL SCH ×2 (21:00)
[2016-12-18] VITALS (24 sets, daily range): BP systolic 126–159; BP diastolic 36–46
[2016-12-18] MEDS: NovoLOG Insulin Flexpen SUBQ SCH ×4 (00:33→17:38)
[2016-12-18] MEDS: Meropenem 1gm/NS 110ml IVPB SCH ×2 (01:25)
[2016-12-18] MEDS: Morphine Sulfate 2mg/ml Inj IVP PRN (02:48)
[2016-12-18] MEDS: SandoSTATIN 100mcg/ml amp SUBQ SCH ×3 (05:51→21:41)
[2016-12-18 06:14] LABS: MEAN CORPUSCULAR HEMOGLOBIN 29.9 PG (27.0-31.0); MEAN CORPUSCULAR HGB CONC 31.3 G/DL (32.0-36.0); MEAN CORPUSCULAR VOLUME 96 FL (80-99); MEAN PLATELET VOLUME 8.2 FL (6.5-10.1); PLATELET COUNT 180 K/UL (150-450); RED BLOOD COUNT 3.14 M/UL (4.20-5.40); RED CELL DISTRIBUTION WIDTH 14.5 % (11.6-14.8)
[2016-12-18 06:17] LABS: WHITE BLOOD COUNT 23.4 K/UL (4.8-10.8)
[2016-12-18 06:37] LABS: APPEARANCE,URINE CLOUDY; KETONES,URINE NEGATIVE (NEGATIVE); PH,URINE 5 (4.5-8.0); PROTEIN,URINE 1+ (NEGATIVE)
[2016-12-18 06:38] LABS: BACTERIA,URINE MODERATE /HPF; LEUKOCYTE ESTERASE ,URINE 1+ (NEGATIVE); NITRITE,URINE NEGATIVE (NEGATIVE); SQUAMOUS EPITHELIAL CELL,UR FEW /LPF (NONE/OCC); UROBILINOGEN,URINE NORMAL MG/DL (0.0-1.0)
[2016-12-18 06:39] LABS: YEAST,URINE MODERATE /HPF
[2016-12-18 06:43] LABS: MAGNESIUM 2.1 mg/dL (1.7-2.5); PHOSPHORUS 2.6 mg/dL (2.5-4.8)
[2016-12-18 06:48] LABS: ALBUMIN/GLOBULIN RATIO 0.4 (1.0-2.7); CALCIUM 8.4 mg/dL (8.6-10.2); GLOMERULAR FILTRATION RATE 24.6 mL/min (>60); POTASSIUM 3.6 mEQ/L (3.4-4.9); TOTAL PROTEIN 5.3 g/dL (6.6-8.7)
[2016-12-18] MEDS: Sucralfate 1gm tab ORAL SCH ×4 (08:28→21:13)
[2016-12-18 08:29] LABS: EOSINOPHILS % (MANUAL) 1 % (0-3); LYMPHOCYTES % (MANUAL) 4 % (20-45); NEUTROPHILS % (MANUAL) 89 % (45-75); TOTAL CELLS COUNTED 100
[2016-12-18 08:30] LABS: BAND NEUTROPHILS % (MANUAL) 0 % (0-8); BASOPHILS % (MANUAL) 0 % (0-2); HYPOCHROMASIA 1+; PLATELET ESTIMATE ADEQUATE; PLATELET MORPHOLOGY NORMAL
[2016-12-18] MEDS ORDERED: Heparin 5000 units/ml inj SUBQ SCH (09:00)
[2016-12-18 09:07] LABS: ABG ALLEN TEST POSITIVE; ABG BASE EXCESS -1.3; ABG PCO2 39.2 mmHg (35.0-45.0)
--- NOTE | 2016-12-18 10:27 | Diagnostic Imaging Report ---
Indication: DYSPNEA Technique: One view of the chest Comparison: 12/17/2016 post PICC radiograph Findings: Stable satisfactory positions of endotracheal and nasogastric tubes. Stable satisfactory position right arm PICC. There is increasing is persistent diffuse interstitial and alveolar disease. There is persistent left basilar opacity, likely infiltrate, pleural fluid, or combination of both. The heart remains enlarged. Findings are overall unchanged Impression: Unchanged, over one day, findings as above.
--- NOTE | 2016-12-18 10:30 | Pulmonolgy Critical Care Note ---
Critical Care - Asmt/Plan Problems: (1) Respiratory failure requiring intubation (2) Sepsis (3) Pancreatitis (4) ATN (acute tubular necrosis) (5) Atrial fibrillation Respiratory: monitor respiratory rate, adjust FIO2, CXR Cardiac: continue pressors, continue to monitor HR/BP Renal: F/U I&O, keep IV fluid, check electrolytes Infectious Disease: check cultures, continue antibiotics Gastrointestinal: continue feedings/current rate Endocrine: monitor blood sugar, check HgA1C Hematologic: monitor H/H Neurologic: PRN Ativan Affect: PRN ativan Prophylaxis: Protonix Disposition: keep in ICU Notes Reviewed: cardio Discussed with: nurses, consultants, bilingual patient support caseworkerfinancial project manager - Objective Last 24 Hour Vital Signs Date Time Temp Pulse Resp B/P Pulse Ox O2 Delivery O2 Flow Rate FiO2 12/18/16 09:23 61 15 50 12/18/16 09:00 53 15 126/44 100 Mechanical Ventilator 50 12/18/16 08:27 62 126/44 12/18/16 08:00 99.1 52 15 134/37 99 Mechanical Ventilator 50 12/18/16 08:00 55 12/18/16 08:00 50 12/18/16 07:07 52 15 50 12/18/16 07:00 56 26 134/37 100 Mechanical Ventilator 50 12/18/16 06:00 48 26 136/43 100 Mechanical Ventilator 50 12/18/16 05:24 59 16 50 12/18/16 05:00 48 26 132/46 100 Mechanical Ventilator 50 12/18/16 04:00 58 26 145/37 100 Mechanical Ventilator 50 12/18/16 04:00 52 12/18/16 04:00 99.4 58 26 145/37 100 Mechanical Ventilator 50 12/18/16 04:00 50 12/18/16 03:19 64 15 50 12/18/16 03:00 61 26 148/39 100 Mechanical Ventilator 50 12/18/16 02:00 53 26 131/40 100 Mechanical Ventilator 50 12/18/16 01:00 52 26 133/36 100 Mechanical Ventilator 50 12/18/16 00:58 53 15 50 12/18/16 00:00 50 12/18/16 00:00 51 12/18/16 00:00 98.4 51 26 134/42 100 Mechanical Ventilator 50 12/17/16 23:21 50 15 50 12/17/16 23:00 49 26 119/42 100 Mechanical Ventilator 50 12/17/16 22:00 53 26 126/43 100 Mechanical Ventilator 60 12/17/16 21:38 61 114/43 12/17/16 21:00 57 26 114/43 100 Mechanical Ventilator 60 12/17/16 20:54 100.4 12/17/16 20:39 58 15 50 12/17/16 20:00 84 12/17/16 20:00 101.1 62 26 139/45 100 Mechanical Ventilator 60 12/17/16 20:00 50 12/17/16 19:00 76 26 150/50 100 Mechanical Ventilator 60 12/17/16 18:51 54 15 50 12/17/16 18:00 58 26 125/46 100 Mechanical Ventilator 60 12/17/16 17:19 55 15 60 12/17/16 17:00 59 20 127/43 100 Mechanical Ventilator 60 12/17/16 16:00 99.0 63 24 105/40 99 Mechanical Ventilator 60 12/17/16 16:00 69 12/17/16 16:00 60 12/17/16 15:00 56 27 137/39 100 Mechanical Ventilator 60 12/17/16 15:00 56 15 60 12/17/16 14:00 52 24 136/40 100 Mechanical Ventilator 60 12/17/16 13:00 54 21 136/39 100 Mechanical Ventilator 60 12/17/16 12:51 58 15 60 12/17/16 12:00 53 12/17/16 12:00 60 12/17/16 12:00 101.2 55 15 121/33 99 Mechanical Ventilator 60 12/17/16 11:00 61 15 60 12/17/16 11:00 60 22 130/35 100 Mechanical Ventilator 60 Status: sedated Condition: critical HEENT: atraumatic Neck: full ROM Lungs: clear Heart: HR/BP stable Abdomen: soft, non-tender Extremities: no C/C/E, edema Micro: Microbiology Date/Time Source Procedure Growth Status 12/17/16 10:45 Sputum Gram Stain - Final Resulted 12/17/16 10:45 Sputum Sputum Culture Pending Resulted Accucheck: 238 Critical Care - Subjective ROS Limited/Unobtainable: Yes ICU Day: 2 Intubation Day: 2 Condition: critical EKG Rhythm: Sinus Rhythm FI02: 50 Vent Support Breath Rate: 15 Vent Support Mode: AC Vent Tidal Volume: 600 Sputum Amount: Small PEEP: 5.0 PIP: 43 Fluids: tpn I&O: Intake and Output 12/17/16 12/18/16 19:00 07:00 Intake Total 1670 ml 1783 ml Output Total 100 ml 80 ml Balance 1570 ml 1703 ml IV Total 1570 ml 1703 ml Other 100 ml 80 ml Gastric Drainage Total 80 ml Other 100 ml 0 ml # Voids 1 1 CXR: pulmonary edema ET-Tube: 7.5 ET Position: 22 Labs: Laboratory Tests Test 12/17/16 17:00 12/18/16 05:00 12/18/16 05:30 12/18/16 08:30 Sodium Level 135 mEQ/L (135-145) 138 mEQ/L (135-145) Potassium Level 3.3 mEQ/L (3.4-4.9) L 3.6 mEQ/L (3.4-4.9) Chloride Level 95 mEQ/L (98-107) L 101 mEQ/L (98-107) Carbon Dioxide Level 23 mEQ/L (20-30) 25 mEQ/L (20-30) Anion Gap 17 (5-15) H 12 (5-15) Blood Urea Nitrogen 43 mg/dL (7-23) H 51 mg/dL (7-23) H Creatinine 1.8 mg/dL (0.5-0.9) #H 2.0 mg/dL (0.5-0.9) H Estimat Glomerular Filtration Rate 27.8 mL/min (>60) 24.6 mL/min (>60) Glucose Level 178 mg/dL (74-106) H 211 mg/dL (74-106) H Calcium Level 8.1 mg/dL (8.6-10.2) L 8.4 mg/dL (8.6-10.2) L Total Bilirubin 0.7 mg/dL (0.0-1.2) 0.7 mg/dL (0.0-1.2) Direct Bilirubin 0.3 mg/dL (0.1-0.3) Aspartate Amino Transf (AST/SGOT) 25 U/L (5-40) 28 U/L (5-40) Alanine Aminotransferase (ALT/SGPT) 10 U/L (3-33) 11 U/L (3-33) Alkaline Phosphatase 89 U/L (35-104) 127 U/L (35-104) H Total Protein 4.8 g/dL (6.6-8.7) L 5.3 g/dL (6.6-8.7) L Albumin 1.7 g/dL (3.5-5.2) L 1.7 g/dL (3.5-5.2) L Amylase Level 414 U/L (10-110) H Lipase 217 U/L (< 60) H Urine Color Yellow Urine Appearance Cloudy Urine pH 5 (4.5-8.0) Urine Specific [place] 1.015 (1.005-1.035) Urine Protein 1+ (NEGATIVE) H Urine Glucose (UA) Negative (NEGATIVE) Urine Ketones Negative (NEGATIVE) Urine Occult Blood 4+ (NEGATIVE) H Urine Nitrite Negative (NEGATIVE) Urine Bilirubin Negative (NEGATIVE) Urine Urobilinogen Normal MG/DL (0.0-1.0) Urine Leukocyte Esterase 1+ (NEGATIVE) H Urine RBC 2-4 /HPF (0 - 2) H Urine WBC 5-10 /HPF (0 - 2) H Urine Squamous Epithelial Cells Few /LPF (NONE/OCC) Urine Bacteria Moderate /HPF (NONE) H Urine Yeast Moderate /HPF (NONE) H White Blood Count 23.4 K/UL (4.8-10.8) *H Red Blood Count 3.14 M/UL (4.20-5.40) L Hemoglobin 9.4 G/DL (12.0-16.0) L Hematocrit 30.0 % (37.0-47.0) L Mean Corpuscular Volume 96 FL (80-99) Mean Corpuscular Hemoglobin 29.9 PG (27.0-31.0) Mean Corpuscular Hemoglobin Concent 31.3 G/DL (32.0-36.0) L Red Cell Distribution Width 14.5 % (11.6-14.8) Platelet Count 180 K/UL (150-450) Mean Platelet Volume 8.2 FL (6.5-10.1) Neutrophils (%) (Auto) % (45.0-75.0) Lymphocytes (%) (Auto) % (20.0-45.0) Monocytes (%) (Auto) % (1.0-10.0) Eosinophils (%) (Auto) % (0.0-3.0) Basophils (%) (Auto) % (0.0-2.0) Differential Total Cells Counted 100 Neutrophils % (Manual) 89 % (45-75) H Lymphocytes % (Manual) 4 % (20-45) L Monocytes % (Manual) 6 % (1-10) Eosinophils % (Manual) 1 % (0-3) Basophils % (Manual) 0 % (0-2) Band Neutrophils 0 % (0-8) Platelet Estimate Adequate Platelet Morphology Normal Hypochromasia 1+ Ionized Calcium (Measured) 1.07 mmol/L (1.10-1.35) L Phosphorus Level 2.6 mg/dL (2.5-4.8) Magnesium Level 2.1 mg/dL (1.7-2.5) Globulin 3.6 g/dL Albumin/Globulin Ratio 0.4 (1.0-2.7) L Digoxin Level 1.5 ng/mL (0.5-2.0) Arterial Blood pH 7.394 (7.350-7.450) Arterial Blood Partial Pressure CO2 39.2 mmHg (35.0-45.0) Arterial Blood Partial Pressure O2 136.3 mmHg (75.0-100.0) H Arterial Blood HCO3 23.4 mmol/L (22.0-26.0) Arterial Blood Oxygen Saturation 98.4 % (92.0-98.0) H Arterial Blood Base Excess -1.3 Ok Test Positive TONY BRIDGES Dec 18, 2016 10:30
--- NOTE | 2016-12-18 10:38 | Infectious Diseases Prog Note ---
Assessment/Plan Assessment/Plan ASSESSMENT: Pancreatitis recurrent CT: Findings compatible with marked worsening of acute pancreatitis MRCP : Cholelithiasis. There is also a calculus within the duct adjacent to the gallbladder Pancreatic Enzymes improving Leukocytosis ( SIRS ) improving cholelithiasis : US of liver : Incidental finding of cholelithiasis and mild gallbladder wall thickening positive sonographic Diaz's sign LFT : Nl VDRF: Cxray : Increase in bilateral congestive changes with persistent small right , probable new left pleural effusions ARF SP aortic stenosis mitral stenosis status post mitral valve replacement AFib Pulmonary hypertension PLAN: - cont Merrem d# / ,and Mycamine d# / - monitor CBC, temperatures, - Monitor culture ( BL) - monitor LFT - GI f/u - Sx is following for possible Cholecystectomy later - VDRF - amylase , Lipase Subjective Allergies: Coded Allergies: No Known Allergies (Unverified , 09/28/14) Subjective on vent Objective Vital Signs Last 24 Hour Vital Signs Date Time Temp Pulse Resp B/P Pulse Ox O2 Delivery O2 Flow Rate FiO2 12/18/16 09:23 61 15 50 12/18/16 09:00 53 15 126/44 100 Mechanical Ventilator 50 12/18/16 08:27 62 126/44 12/18/16 08:00 99.1 52 15 134/37 99 Mechanical Ventilator 50 12/18/16 08:00 55 12/18/16 08:00 50 12/18/16 07:07 52 15 50 12/18/16 07:00 56 26 134/37 100 Mechanical Ventilator 50 12/18/16 06:00 48 26 136/43 100 Mechanical Ventilator 50 12/18/16 05:24 59 16 50 12/18/16 05:00 48 26 132/46 100 Mechanical Ventilator 50 12/18/16 04:00 58 26 145/37 100 Mechanical Ventilator 50 12/18/16 04:00 52 12/18/16 04:00 99.4 58 26 145/37 100 Mechanical Ventilator 50 12/18/16 04:00 50 12/18/16 03:19 64 15 50 12/18/16 03:00 61 26 148/39 100 Mechanical Ventilator 50 12/18/16 02:00 53 26 131/40 100 Mechanical Ventilator 50 12/18/16 01:00 52 26 133/36 100 Mechanical Ventilator 50 12/18/16 00:58 53 15 50 12/18/16 00:00 50 12/18/16 00:00 51 12/18/16 00:00 98.4 51 26 134/42 100 Mechanical Ventilator 50 12/17/16 23:21 50 15 50 12/17/16 23:00 49 26 119/42 100 Mechanical Ventilator 50 12/17/16 22:00 53 26 126/43 100 Mechanical Ventilator 60 12/17/16 21:38 61 114/43 12/17/16 21:00 57 26 114/43 100 Mechanical Ventilator 60 12/17/16 20:54 100.4 12/17/16 20:39 58 15 50 12/17/16 20:00 84 12/17/16 20:00 101.1 62 26 139/45 100 Mechanical Ventilator 60 12/17/16 20:00 50 12/17/16 19:00 76 26 150/50 100 Mechanical Ventilator 60 12/17/16 18:51 54 15 50 12/17/16 18:00 58 26 125/46 100 Mechanical Ventilator 60 12/17/16 17:19 55 15 60 12/17/16 17:00 59 20 127/43 100 Mechanical Ventilator 60 12/17/16 16:00 99.0 63 24 105/40 99 Mechanical Ventilator 60 12/17/16 16:00 69 12/17/16 16:00 60 12/17/16 15:00 56 27 137/39 100 Mechanical Ventilator 60 12/17/16 15:00 56 15 60 12/17/16 14:00 52 24 136/40 100 Mechanical Ventilator 60 12/17/16 13:00 54 21 136/39 100 Mechanical Ventilator 60 12/17/16 12:51 58 15 60 12/17/16 12:00 53 12/17/16 12:00 60 12/17/16 12:00 101.2 55 15 121/33 99 Mechanical Ventilator 60 12/17/16 11:00 61 15 60 12/17/16 11:00 60 22 130/35 100 Mechanical Ventilator 60 Height (Feet): 5 Height (Inches): 1.00 Weight (Pounds): 145 HEENT: anicteric Respiratory/Chest: lungs clear Cardiovascular: normal rate Abdomen: soft, non tender Microbiology Date/Time Source Procedure Growth Status 12/17/16 10:45 Sputum Gram Stain - Final Resulted 12/17/16 10:45 Sputum Sputum Culture Pending Resulted Laboratory Tests Test 12/17/16 17:00 12/18/16 05:00 12/18/16 05:30 12/18/16 08:30 Sodium Level 135 mEQ/L (135-145) 138 mEQ/L (135-145) Potassium Level 3.3 mEQ/L (3.4-4.9) L 3.6 mEQ/L (3.4-4.9) Chloride Level 95 mEQ/L (98-107) L 101 mEQ/L (98-107) Carbon Dioxide Level 23 mEQ/L (20-30) 25 mEQ/L (20-30) Anion Gap 17 (5-15) H 12 (5-15) Blood Urea Nitrogen 43 mg/dL (7-23) H 51 mg/dL (7-23) H Creatinine 1.8 mg/dL (0.5-0.9) #H 2.0 mg/dL (0.5-0.9) H Estimat Glomerular Filtration Rate 27.8 mL/min (>60) 24.6 mL/min (>60) Glucose Level 178 mg/dL (74-106) H 211 mg/dL (74-106) H Calcium Level 8.1 mg/dL (8.6-10.2) L 8.4 mg/dL (8.6-10.2) L Total Bilirubin 0.7 mg/dL (0.0-1.2) 0.7 mg/dL (0.0-1.2) Direct Bilirubin 0.3 mg/dL (0.1-0.3) Aspartate Amino Transf (AST/SGOT) 25 U/L (5-40) 28 U/L (5-40) Alanine Aminotransferase (ALT/SGPT) 10 U/L (3-33) 11 U/L (3-33) Alkaline Phosphatase 89 U/L (35-104) 127 U/L (35-104) H Total Protein 4.8 g/dL (6.6-8.7) L 5.3 g/dL (6.6-8.7) L Albumin 1.7 g/dL (3.5-5.2) L 1.7 g/dL (3.5-5.2) L Amylase Level 414 U/L (10-110) H Lipase 217 U/L (< 60) H Urine Color Yellow Urine Appearance Cloudy Urine pH 5 (4.5-8.0) Urine Specific [place] 1.015 (1.005-1.035) Urine Protein 1+ (NEGATIVE) H Urine Glucose (UA) Negative (NEGATIVE) Urine Ketones Negative (NEGATIVE) Urine Occult Blood 4+ (NEGATIVE) H Urine Nitrite Negative (NEGATIVE) Urine Bilirubin Negative (NEGATIVE) Urine Urobilinogen Normal MG/DL (0.0-1.0) Urine Leukocyte Esterase 1+ (NEGATIVE) H Urine RBC 2-4 /HPF (0 - 2) H Urine WBC 5-10 /HPF (0 - 2) H Urine Squamous Epithelial Cells Few /LPF (NONE/OCC) Urine Bacteria Moderate /HPF (NONE) H Urine Yeast Moderate /HPF (NONE) H White Blood Count 23.4 K/UL (4.8-10.8) *H Red Blood Count 3.14 M/UL (4.20-5.40) L Hemoglobin 9.4 G/DL (12.0-16.0) L Hematocrit 30.0 % (37.0-47.0) L Mean Corpuscular Volume 96 FL (80-99) Mean Corpuscular Hemoglobin 29.9 PG (27.0-31.0) Mean Corpuscular Hemoglobin Concent 31.3 G/DL (32.0-36.0) L Red Cell Distribution Width 14.5 % (11.6-14.8) Platelet Count 180 K/UL (150-450) Mean Platelet Volume 8.2 FL (6.5-10.1) Neutrophils (%) (Auto) % (45.0-75.0) Lymphocytes (%) (Auto) % (20.0-45.0) Monocytes (%) (Auto) % (1.0-10.0) Eosinophils (%) (Auto) % (0.0-3.0) Basophils (%) (Auto) % (0.0-2.0) Differential Total Cells Counted 100 Neutrophils % (Manual) 89 % (45-75) H Lymphocytes % (Manual) 4 % (20-45) L Monocytes % (Manual) 6 % (1-10) Eosinophils % (Manual) 1 % (0-3) Basophils % (Manual) 0 % (0-2) Band Neutrophils 0 % (0-8) Platelet Estimate Adequate Platelet Morphology Normal Hypochromasia 1+ Ionized Calcium (Measured) 1.07 mmol/L (1.10-1.35) L Phosphorus Level 2.6 mg/dL (2.5-4.8) Magnesium Level 2.1 mg/dL (1.7-2.5) Globulin 3.6 g/dL Albumin/Globulin Ratio 0.4 (1.0-2.7) L Digoxin Level 1.5 ng/mL (0.5-2.0) Arterial Blood pH 7.394 (7.350-7.450) Arterial Blood Partial Pressure CO2 39.2 mmHg (35.0-45.0) Arterial Blood Partial Pressure O2 136.3 mmHg (75.0-100.0) H Arterial Blood HCO3 23.4 mmol/L (22.0-26.0) Arterial Blood Oxygen Saturation 98.4 % (92.0-98.0) H Arterial Blood Base Excess -1.3 Ok Test Positive Current Medications Medications (Trade) Dose Ordered Sig/Lisbeth Route PRN Reason Start Time Stop Time Status Last Admin Dose Admin Acetaminophen (Tylenol) 650 mg Q4H PRN ORAL fever 12/17/16 08:00 01/16/17 07:59 12/17/16 19:55 Amlodipine Besylate (Norvasc) 2.5 mg DAILY ORAL 12/18/16 09:00 01/17/17 08:59 12/18/16 08:27 Dextrose (D10w) 1,000 ml @ 80 mls/hr [id number] PRN IV If TPN interrupted 12/17/16 07:30 01/16/17 07:29 Dextrose (Dextrose 50%) STAT PRN IV Hypoglycemia 12/17/16 07:30 01/16/17 07:29 Fat Emulsion Intravenous 480 ml/Amino Acids/ Electrolytes/ Dextrose 2,472 ml @ 103 mls/hr Q24H IV 12/17/16 21:00 01/16/17 20:59 12/17/16 20:14 Furosemide (Lasix) 20 mg EVERY 12 HOURS IV 12/17/16 21:00 01/16/17 20:59 12/18/16 08:27 Heparin Sodium (Porcine) (Heparin 5000 units/ml) 5,000 units EVERY 12 HOURS SUBQ 12/18/16 09:00 01/17/17 08:59 12/18/16 08:51 Insulin Aspart (NovoLOG) No Dose Q6HR SUBQ 12/17/16 12:00 01/16/17 11:59 12/18/16 05:45 Meropenem 1 gm/ Sodium Chloride 110 ml @ 220 mls/hr Q12HR@0100,1300 IVPB 12/17/16 13:00 12/22/16 12:59 12/18/16 01:25 Micafungin Sodium 100 mg/Sodium Chloride 110 ml @ 110 mls/hr Q24H IVPB 12/17/16 14:00 12/24/16 13:59 12/17/16 14:00 Morphine Sulfate (Morphine Sulfate) 4 mg Q4H PRN IVP Severe Pain (Pain Scale 7-10) 12/17/16 07:30 12/24/16 07:29 12/18/16 02:48 Nitroglycerin (Ntg) 0.4 mg Q5M X 3 DOSES PRN SL Prn Chest Pain 12/17/16 07:30 01/16/17 07:29 Octreotide Acetate (SandoSTATIN) 100 mcg Q8HR SUBQ 12/17/16 20:00 01/16/17 19:59 12/18/16 05:51 Ondansetron HCl (Zofran) 4 mg Q6H PRN IVP Nausea & Vomiting 12/17/16 07:30 01/16/17 07:29 Pantoprazole (Protonix) 40 mg EVERY 12 HOURS ORAL 12/17/16 09:00 01/16/17 08:59 12/18/16 08:28 Phytonadione (Vitamin K) 10 mg QWEEK SUBQ 12/23/16 21:00 01/22/17 20:59 Polyethylene Glycol (Miralax) 17 gm HSPRN PRN ORAL Constipation 12/17/16 07:30 01/16/17 07:29 Sodium Chloride (Sodium Chloride 1000ml bag) 1,000 ml @ 30 mls/hr Q24H IV 12/17/16 14:00 01/16/17 13:59 12/17/16 14:01 Sucralfate (Carafate) 1 gm FOUR TIMES A DAY ORAL 12/17/16 09:00 01/16/17 08:59 12/18/16 08:28 Temazepam 15 mg 15 mg HSPRN PRN ORAL Insomnia 12/17/16 07:30 12/24/16 07:29 OSACR ANDERSON M.D. Dec 18, 2016 10:38
--- NOTE | 2016-12-18 11:23 | General Progress Note ---
Progress Note Progress Note Surgery: Patient seen and examined at bedside. doing well. no acute events. receiving supportive care. Exam stable. abdomen distended, soft, minimal tenderness Still requiring ventilatory support. CT scan reviewed and notes acute severe pancreatitis but no necrosis or noted infected pancreatitis Continue current medical management IV fluids Vent support Will continue to follow along with you. No planned surgical intervention at this time. Rodrigo Andino Dec 18, 2016 11:23
--- NOTE | 2016-12-18 12:03 | Cardiology Progress Note ---
Assessment/Plan Assessment/Plan chf / fluid overload respiratory acidosis pancreattiis s/ bioprostheic AV repalcment 2014 s/p mechanic foreman mirtral vavle prosthesis on anticoagulation perm afib on anticoagualtion with couamdin coagulaopathy now elevated dueot med interaction adn disease process leukocytosis ARF note no surgery planned on diuretic is incontinent of urine i/o in acurate cr worsending may be related to 3rd spacing due to pancreatitis gettign tpn repeat amyase lipase in am cxr person rev ct result noted d/w rn off dig level 1.5 heaert rate a times lwo so bb decrease uf herparin drip ordered Subjective ROS Limited/Unobtainable: Yes Subjective on the vent Objective Last 24 Hour Vital Signs Date Time Temp Pulse Resp B/P Pulse Ox O2 Delivery O2 Flow Rate FiO2 12/18/16 11:11 62 16 40 12/18/16 11:00 60 15 134/36 99 Mechanical Ventilator 40 12/18/16 10:00 58 15 131/39 100 Mechanical Ventilator 50 12/18/16 09:23 61 15 50 12/18/16 09:00 53 15 126/44 100 Mechanical Ventilator 50 12/18/16 08:27 62 126/44 12/18/16 08:00 99.1 52 15 134/37 99 Mechanical Ventilator 50 12/18/16 08:00 55 12/18/16 08:00 50 12/18/16 07:07 52 15 50 12/18/16 07:00 56 26 134/37 100 Mechanical Ventilator 50 12/18/16 06:00 48 26 136/43 100 Mechanical Ventilator 50 12/18/16 05:24 59 16 50 12/18/16 05:00 48 26 132/46 100 Mechanical Ventilator 50 12/18/16 04:00 58 26 145/37 100 Mechanical Ventilator 50 12/18/16 04:00 52 12/18/16 04:00 99.4 58 26 145/37 100 Mechanical Ventilator 50 12/18/16 04:00 50 12/18/16 03:19 64 15 50 12/18/16 03:00 61 26 148/39 100 Mechanical Ventilator 50 12/18/16 02:00 53 26 131/40 100 Mechanical Ventilator 50 12/18/16 01:00 52 26 133/36 100 Mechanical Ventilator 50 12/18/16 00:58 53 15 50 12/18/16 00:00 50 12/18/16 00:00 51 12/18/16 00:00 98.4 51 26 134/42 100 Mechanical Ventilator 50 12/17/16 23:21 50 15 50 12/17/16 23:00 49 26 119/42 100 Mechanical Ventilator 50 12/17/16 22:00 53 26 126/43 100 Mechanical Ventilator 60 12/17/16 21:38 61 114/43 12/17/16 21:00 57 26 114/43 100 Mechanical Ventilator 60 12/17/16 20:54 100.4 12/17/16 20:39 58 15 50 12/17/16 20:00 84 12/17/16 20:00 101.1 62 26 139/45 100 Mechanical Ventilator 60 12/17/16 20:00 50 12/17/16 19:00 76 26 150/50 100 Mechanical Ventilator 60 12/17/16 18:51 54 15 50 12/17/16 18:00 58 26 125/46 100 Mechanical Ventilator 60 12/17/16 17:19 55 15 60 12/17/16 17:00 59 20 127/43 100 Mechanical Ventilator 60 12/17/16 16:00 99.0 63 24 105/40 99 Mechanical Ventilator 60 12/17/16 16:00 69 12/17/16 16:00 60 12/17/16 15:00 56 27 137/39 100 Mechanical Ventilator 60 12/17/16 15:00 56 15 60 12/17/16 14:00 52 24 136/40 100 Mechanical Ventilator 60 12/17/16 13:00 54 21 136/39 100 Mechanical Ventilator 60 12/17/16 12:51 58 15 60 12/17/16 12:00 53 12/17/16 12:00 60 12/17/16 12:00 101.2 55 15 121/33 99 Mechanical Ventilator 60 General Appearance: no apparent distress, alert, on vent Neck: no JVD Cardiovascular: irregularly irregular Respiratory/Chest: decreased breath sounds Abdomen: normal bowel sounds, non tender, soft Extremities: no swelling Intake and Output 12/17/16 12/18/16 19:00 07:00 Intake Total 1670 ml 1783 ml Output Total 100 ml 80 ml Balance 1570 ml 1703 ml IV Total 1570 ml 1703 ml Other 100 ml 80 ml Gastric Drainage Total 80 ml Other 100 ml 0 ml # Voids 1 1 Laboratory Tests Test 12/17/16 17:00 12/18/16 05:00 12/18/16 05:30 12/18/16 08:30 Sodium Level 135 mEQ/L (135-145) 138 mEQ/L (135-145) Potassium Level 3.3 mEQ/L (3.4-4.9) L 3.6 mEQ/L (3.4-4.9) Chloride Level 95 mEQ/L (98-107) L 101 mEQ/L (98-107) Carbon Dioxide Level 23 mEQ/L (20-30) 25 mEQ/L (20-30) Anion Gap 17 (5-15) H 12 (5-15) Blood Urea Nitrogen 43 mg/dL (7-23) H 51 mg/dL (7-23) H Creatinine 1.8 mg/dL (0.5-0.9) #H 2.0 mg/dL (0.5-0.9) H Estimat Glomerular Filtration Rate 27.8 mL/min (>60) 24.6 mL/min (>60) Glucose Level 178 mg/dL (74-106) H 211 mg/dL (74-106) H Calcium Level 8.1 mg/dL (8.6-10.2) L 8.4 mg/dL (8.6-10.2) L Total Bilirubin 0.7 mg/dL (0.0-1.2) 0.7 mg/dL (0.0-1.2) Direct Bilirubin 0.3 mg/dL (0.1-0.3) Aspartate Amino Transf (AST/SGOT) 25 U/L (5-40) 28 U/L (5-40) Alanine Aminotransferase (ALT/SGPT) 10 U/L (3-33) 11 U/L (3-33) Alkaline Phosphatase 89 U/L (35-104) 127 U/L (35-104) H Total Protein 4.8 g/dL (6.6-8.7) L 5.3 g/dL (6.6-8.7) L Albumin 1.7 g/dL (3.5-5.2) L 1.7 g/dL (3.5-5.2) L Amylase Level 414 U/L (10-110) H Lipase 217 U/L (< 60) H Urine Color Yellow Urine Appearance Cloudy Urine pH 5 (4.5-8.0) Urine Specific [place] 1.015 (1.005-1.035) Urine Protein 1+ (NEGATIVE) H Urine Glucose (UA) Negative (NEGATIVE) Urine Ketones Negative (NEGATIVE) Urine Occult Blood 4+ (NEGATIVE) H Urine Nitrite Negative (NEGATIVE) Urine Bilirubin Negative (NEGATIVE) Urine Urobilinogen Normal MG/DL (0.0-1.0) Urine Leukocyte Esterase 1+ (NEGATIVE) H Urine RBC 2-4 /HPF (0 - 2) H Urine WBC 5-10 /HPF (0 - 2) H Urine Squamous Epithelial Cells Few /LPF (NONE/OCC) Urine Bacteria Moderate /HPF (NONE) H Urine Yeast Moderate /HPF (NONE) H White Blood Count 23.4 K/UL (4.8-10.8) *H Red Blood Count 3.14 M/UL (4.20-5.40) L Hemoglobin 9.4 G/DL (12.0-16.0) L Hematocrit 30.0 % (37.0-47.0) L Mean Corpuscular Volume 96 FL (80-99) Mean Corpuscular Hemoglobin 29.9 PG (27.0-31.0) Mean Corpuscular Hemoglobin Concent 31.3 G/DL (32.0-36.0) L Red Cell Distribution Width 14.5 % (11.6-14.8) Platelet Count 180 K/UL (150-450) Mean Platelet Volume 8.2 FL (6.5-10.1) Neutrophils (%) (Auto) % (45.0-75.0) Lymphocytes (%) (Auto) % (20.0-45.0) Monocytes (%) (Auto) % (1.0-10.0) Eosinophils (%) (Auto) % (0.0-3.0) Basophils (%) (Auto) % (0.0-2.0) Differential Total Cells Counted 100 Neutrophils % (Manual) 89 % (45-75) H Lymphocytes % (Manual) 4 % (20-45) L Monocytes % (Manual) 6 % (1-10) Eosinophils % (Manual) 1 % (0-3) Basophils % (Manual) 0 % (0-2) Band Neutrophils 0 % (0-8) Platelet Estimate Adequate Platelet Morphology Normal Hypochromasia 1+ Ionized Calcium (Measured) 1.07 mmol/L (1.10-1.35) L Phosphorus Level 2.6 mg/dL (2.5-4.8) Magnesium Level 2.1 mg/dL (1.7-2.5) Globulin 3.6 g/dL Albumin/Globulin Ratio 0.4 (1.0-2.7) L Digoxin Level 1.5 ng/mL (0.5-2.0) Arterial Blood pH 7.394 (7.350-7.450) Arterial Blood Partial Pressure CO2 39.2 mmHg (35.0-45.0) Arterial Blood Partial Pressure O2 136.3 mmHg (75.0-100.0) H Arterial Blood HCO3 23.4 mmol/L (22.0-26.0) Arterial Blood Oxygen Saturation 98.4 % (92.0-98.0) H Arterial Blood Base Excess -1.3 Ok Test Positive Microbiology Date/Time Source Procedure Growth Status 12/17/16 10:45 Sputum Gram Stain - Final Resulted 12/17/16 10:45 Sputum Sputum Culture Pending Resulted ANNE RAM Dec 18, 2016 12:03
[2016-12-18] MEDS: Meropenem 500 MG in NS 55 ML IV SCH (12:14)
[2016-12-18] MEDS ORDERED: TPN IV SCH ×2 (12:15→21:00)
[2016-12-18] MEDS ORDERED: FAT EMULSION IV SCH ×2 (12:15→21:00)
[2016-12-18] MEDS: Micafungin 100 MG in NS 110 ML IVPB SCH (14:00)
[2016-12-18] MEDS: Heparin 25,000u/D5W 500ml 500 ML IV SCH ×2 (14:03→21:36)
[2016-12-18] MEDS ORDERED: Tubing IV Secondary IV ONE (16:11)
[2016-12-18] MEDS ORDERED: NS 275ml ONE (16:11)
[2016-12-18] MEDS ORDERED: Heparin 5000 units/ml inj IV ONE (21:15)
--- NOTE | 2016-12-18 22:21 | General Progress Note ---
Assessment/Plan Assessment/Plan Assessment Pancreatitis - worsening clinically and by lab criteria cholelithiasis, no e/o choledocholithiasis Leukocytosis likely reactive, but agree with abx Respiratory failure rise in Cr noted Anemia colon polyp Guarded Assessment/Plan change PPN to TPN, since got PICC today will add Sandostatin abx increase IVF watch Cr and other labs critical Subjective Allergies: Coded Allergies: No Known Allergies (Unverified , 09/28/14) Subjective above noted (+) diffuse abd pain abd more distended Objective Last 24 Hour Vital Signs Date Time Temp Pulse Resp B/P Pulse Ox O2 Delivery O2 Flow Rate FiO2 12/18/16 21:21 56 15 40 12/18/16 19:00 61 15 159/40 100 Mechanical Ventilator 40 12/18/16 19:00 63 16 40 12/18/16 18:00 57 15 140/39 100 Mechanical Ventilator 40 12/18/16 17:00 60 15 143/37 100 Mechanical Ventilator 40 12/18/16 16:00 57 12/18/16 16:00 99.1 58 15 145/46 100 Mechanical Ventilator 40 12/18/16 16:00 40 12/18/16 15:05 59 15 40 12/18/16 15:00 58 15 128/40 100 Mechanical Ventilator 40 12/18/16 14:00 64 15 134/41 100 Mechanical Ventilator 40 12/18/16 13:27 58 18 40 12/18/16 13:00 64 16 144/40 99 Mechanical Ventilator 40 12/18/16 12:00 58 12/18/16 12:00 99.9 61 15 139/44 99 Mechanical Ventilator 40 12/18/16 12:00 40 12/18/16 11:11 62 16 40 12/18/16 11:00 60 15 134/36 99 Mechanical Ventilator 40 12/18/16 10:00 58 15 131/39 100 Mechanical Ventilator 50 12/18/16 09:23 61 15 50 12/18/16 09:00 53 15 126/44 100 Mechanical Ventilator 50 12/18/16 08:27 62 126/44 12/18/16 08:00 99.1 52 15 134/37 99 Mechanical Ventilator 50 12/18/16 08:00 55 12/18/16 08:00 50 12/18/16 07:07 52 15 50 12/18/16 07:00 56 26 134/37 100 Mechanical Ventilator 50 12/18/16 06:00 48 26 136/43 100 Mechanical Ventilator 50 12/18/16 05:24 59 16 50 12/18/16 05:00 48 26 132/46 100 Mechanical Ventilator 50 12/18/16 04:00 58 26 145/37 100 Mechanical Ventilator 50 12/18/16 04:00 52 12/18/16 04:00 99.4 58 26 145/37 100 Mechanical Ventilator 50 12/18/16 04:00 50 12/18/16 03:19 64 15 50 12/18/16 03:00 61 26 148/39 100 Mechanical Ventilator 50 12/18/16 02:00 53 26 131/40 100 Mechanical Ventilator 50 12/18/16 01:00 52 26 133/36 100 Mechanical Ventilator 50 12/18/16 00:58 53 15 50 12/18/16 00:00 50 12/18/16 00:00 51 12/18/16 00:00 98.4 51 26 134/42 100 Mechanical Ventilator 50 12/17/16 23:21 50 15 50 12/17/16 23:00 49 26 119/42 100 Mechanical Ventilator 50 Intake and Output 12/17/16 12/18/16 19:00 07:00 Intake Total 1670 ml 1783 ml Output Total 100 ml 80 ml Balance 1570 ml 1703 ml IV Total 1570 ml 1703 ml Other 100 ml 80 ml Gastric Drainage Total 80 ml Other 100 ml 0 ml # Voids 1 1 Laboratory Tests 12/18/16 05:00: Urine Color Yellow, Urine Appearance Cloudy, Urine pH 5, Urine Specific [place] 1.015, Urine Protein 1+H, Urine Glucose (UA) Negative, Urine Ketones Negative, Urine Occult Blood 4+H, Urine Nitrite Negative, Urine Bilirubin Negative, Urine Urobilinogen Normal, Urine Leukocyte Esterase 1+H, Urine RBC 2-4H, Urine WBC 5- 10H, Urine Squamous Epithelial Cells Few, Urine Bacteria ModerateH, Urine Yeast ModerateH 12/18/16 05:30: White Blood Count 23.4*H, Red Blood Count 3.14L, Hemoglobin 9.4L, Hematocrit 30.0L, Mean Corpuscular Volume 96, Mean Corpuscular Hemoglobin 29.9, Mean Corpuscular Hemoglobin Concent 31.3L, Red Cell Distribution Width 14.5, Platelet Count 180, Mean Platelet Volume 8.2, Neutrophils (%) (Auto) , Lymphocytes (%) (Auto) , Monocytes (%) (Auto) , Eosinophils (%) (Auto) , Basophils (%) (Auto) , Differential Total Cells Counted 100, Neutrophils % ( Manual) 89H, Lymphocytes % (Manual) 4L, Monocytes % (Manual) 6, Eosinophils % ( Manual) 1, Basophils % (Manual) 0, Band Neutrophils 0, Platelet Estimate Adequate, Platelet Morphology Normal, Hypochromasia 1+, Sodium Level 138, Potassium Level 3.6, Chloride Level 101, Carbon Dioxide Level 25, Anion Gap 12, Blood Urea Nitrogen 51H, Creatinine 2.0H, Estimat Glomerular Filtration Rate 24.6, Glucose Level 211H, Calcium Level 8.4L, Ionized Calcium (Measured) 1.07L, Phosphorus Level 2.6, Magnesium Level 2.1, Total Bilirubin 0.7, Aspartate Amino Transf (AST/SGOT) 28, Alanine Aminotransferase (ALT/SGPT) 11, Alkaline Phosphatase 127H, Total Protein 5.3L, Albumin 1.7L, Globulin 3.6, Albumin/ Globulin Ratio 0.4L, Digoxin Level 1.5 12/18/16 08:30: Arterial Blood pH 7.394, Arterial Blood Partial Pressure CO2 39.2, Arterial Blood Partial Pressure O2 136.3H, Arterial Blood HCO3 23.4, Arterial Blood Oxygen Saturation 98.4H, Arterial Blood Base Excess -1.3, Ok Test Positive 12/18/16 13:00: Activated Partial Thromboplast Time 38H 12/18/16 19:30: Activated Partial Thromboplast Time 52H Height (Feet): 5 Height (Inches): 1.00 Weight (Pounds): 145 Objective Elderly woman NCAT, intubated responsive supple CTA RRR Abd soft NT distended no edema MAXIME EVANS Dec 18, 2016 22:21
--- NOTE | 2016-12-18 22:31 | Nephrology Progress Note ---
Assessment/Plan Problem List: (1) Pancreatitis (2) Respiratory failure requiring intubation (3) SIRS (systemic inflammatory response syndrome) (4) Sepsis (5) ATN (acute tubular necrosis) (6) Anemia (7) Ileus (8) HTN (hypertension) Assessment Renal function worse ---> from micafungin ? ATN ? Plan cont TPN vent support Discussed with Dr Medhat PROCTOR Micafungin follow BMP Discussed with RN Subjective Subjective Pt was seen Seen in ICU earlier Intubated Objective Objective Last 24 Hour Vital Signs Date Time Temp Pulse Resp B/P Pulse Ox O2 Delivery O2 Flow Rate FiO2 12/18/16 21:21 56 15 40 12/18/16 19:00 61 15 159/40 100 Mechanical Ventilator 40 12/18/16 19:00 63 16 40 12/18/16 18:00 57 15 140/39 100 Mechanical Ventilator 40 12/18/16 17:00 60 15 143/37 100 Mechanical Ventilator 40 12/18/16 16:00 57 12/18/16 16:00 99.1 58 15 145/46 100 Mechanical Ventilator 40 12/18/16 16:00 40 12/18/16 15:05 59 15 40 12/18/16 15:00 58 15 128/40 100 Mechanical Ventilator 40 12/18/16 14:00 64 15 134/41 100 Mechanical Ventilator 40 12/18/16 13:27 58 18 40 12/18/16 13:00 64 16 144/40 99 Mechanical Ventilator 40 12/18/16 12:00 58 12/18/16 12:00 99.9 61 15 139/44 99 Mechanical Ventilator 40 12/18/16 12:00 40 12/18/16 11:11 62 16 40 12/18/16 11:00 60 15 134/36 99 Mechanical Ventilator 40 12/18/16 10:00 58 15 131/39 100 Mechanical Ventilator 50 12/18/16 09:23 61 15 50 12/18/16 09:00 53 15 126/44 100 Mechanical Ventilator 50 12/18/16 08:27 62 126/44 12/18/16 08:00 99.1 52 15 134/37 99 Mechanical Ventilator 50 12/18/16 08:00 55 12/18/16 08:00 50 12/18/16 07:07 52 15 50 12/18/16 07:00 56 26 134/37 100 Mechanical Ventilator 50 12/18/16 06:00 48 26 136/43 100 Mechanical Ventilator 50 12/18/16 05:24 59 16 50 12/18/16 05:00 48 26 132/46 100 Mechanical Ventilator 50 12/18/16 04:00 58 26 145/37 100 Mechanical Ventilator 50 12/18/16 04:00 52 12/18/16 04:00 99.4 58 26 145/37 100 Mechanical Ventilator 50 12/18/16 04:00 50 12/18/16 03:19 64 15 50 12/18/16 03:00 61 26 148/39 100 Mechanical Ventilator 50 12/18/16 02:00 53 26 131/40 100 Mechanical Ventilator 50 12/18/16 01:00 52 26 133/36 100 Mechanical Ventilator 50 12/18/16 00:58 53 15 50 12/18/16 00:00 50 12/18/16 00:00 51 12/18/16 00:00 98.4 51 26 134/42 100 Mechanical Ventilator 50 12/17/16 23:21 50 15 50 12/17/16 23:00 49 26 119/42 100 Mechanical Ventilator 50 Intake and Output 12/17/16 12/18/16 19:00 07:00 Intake Total 1670 ml 1783 ml Output Total 100 ml 80 ml Balance 1570 ml 1703 ml IV Total 1570 ml 1703 ml Other 100 ml 80 ml Gastric Drainage Total 80 ml Other 100 ml 0 ml # Voids 1 1 Laboratory Tests 12/18/16 05:00: Urine Color Yellow, Urine Appearance Cloudy, Urine pH 5, Urine Specific [place] 1.015, Urine Protein 1+H, Urine Glucose (UA) Negative, Urine Ketones Negative, Urine Occult Blood 4+H, Urine Nitrite Negative, Urine Bilirubin Negative, Urine Urobilinogen Normal, Urine Leukocyte Esterase 1+H, Urine RBC 2-4H, Urine WBC 5- 10H, Urine Squamous Epithelial Cells Few, Urine Bacteria ModerateH, Urine Yeast ModerateH 12/18/16 05:30: White Blood Count 23.4*H, Red Blood Count 3.14L, Hemoglobin 9.4L, Hematocrit 30.0L, Mean Corpuscular Volume 96, Mean Corpuscular Hemoglobin 29.9, Mean Corpuscular Hemoglobin Concent 31.3L, Red Cell Distribution Width 14.5, Platelet Count 180, Mean Platelet Volume 8.2, Neutrophils (%) (Auto) , Lymphocytes (%) (Auto) , Monocytes (%) (Auto) , Eosinophils (%) (Auto) , Basophils (%) (Auto) , Differential Total Cells Counted 100, Neutrophils % ( Manual) 89H, Lymphocytes % (Manual) 4L, Monocytes % (Manual) 6, Eosinophils % ( Manual) 1, Basophils % (Manual) 0, Band Neutrophils 0, Platelet Estimate Adequate, Platelet Morphology Normal, Hypochromasia 1+, Sodium Level 138, Potassium Level 3.6, Chloride Level 101, Carbon Dioxide Level 25, Anion Gap 12, Blood Urea Nitrogen 51H, Creatinine 2.0H, Estimat Glomerular Filtration Rate 24.6, Glucose Level 211H, Calcium Level 8.4L, Ionized Calcium (Measured) 1.07L, Phosphorus Level 2.6, Magnesium Level 2.1, Total Bilirubin 0.7, Aspartate Amino Transf (AST/SGOT) 28, Alanine Aminotransferase (ALT/SGPT) 11, Alkaline Phosphatase 127H, Total Protein 5.3L, Albumin 1.7L, Globulin 3.6, Albumin/ Globulin Ratio 0.4L, Digoxin Level 1.5 12/18/16 08:30: Arterial Blood pH 7.394, Arterial Blood Partial Pressure CO2 39.2, Arterial Blood Partial Pressure O2 136.3H, Arterial Blood HCO3 23.4, Arterial Blood Oxygen Saturation 98.4H, Arterial Blood Base Excess -1.3, Ok Test Positive 12/18/16 13:00: Activated Partial Thromboplast Time 38H 12/18/16 19:30: Activated Partial Thromboplast Time 52H Height (Feet): 5 Height (Inches): 1.00 Weight (Pounds): 145 Cardiovascular: normal rate Respiratory/Chest: rhonchi - bilaterally Extremities: moderate edema JESSICA BEDOLLA Dec 18, 2016 22:31
[2016-12-19] VITALS (24 sets, daily range): BP systolic 48–167; BP diastolic 37–55
[2016-12-19] MEDS: NovoLOG Insulin Flexpen SUBQ SCH ×5 (00:14→23:39)
[2016-12-19] MEDS: Meropenem 500 MG in NS 55 ML IV SCH ×2 (01:03→18:11)
[2016-12-19 03:47] LABS: MEAN CORPUSCULAR HEMOGLOBIN 29.5 PG (27.0-31.0); MEAN CORPUSCULAR HGB CONC 31.8 G/DL (32.0-36.0); MEAN CORPUSCULAR VOLUME 93 FL (80-99); MEAN PLATELET VOLUME 8.1 FL (6.5-10.1); PLATELET COUNT 169 K/UL (150-450); RED BLOOD COUNT 2.91 M/UL (4.20-5.40); RED CELL DISTRIBUTION WIDTH 13.9 % (11.6-14.8); WHITE BLOOD COUNT 19.1 K/UL (4.8-10.8)
[2016-12-19 03:56] LABS: PHOSPHORUS 3.3 mg/dL (2.5-4.8)
[2016-12-19 04:00] LABS: ALBUMIN/GLOBULIN RATIO 0.4 (1.0-2.7); CREATININE 2.2 mg/dL (0.5-0.9); POTASSIUM 3.1 mEQ/L (3.4-4.9); TOTAL PROTEIN 5.1 g/dL (6.6-8.7)
[2016-12-19] MEDS ORDERED: Heparin 5000 units/ml inj IV ONE (04:00)
[2016-12-19 04:01] LABS: AMYLASE 161 U/L (10-110); LIPASE 72 U/L (< 60)
[2016-12-19] MEDS: Heparin 25,000u/D5W 500ml 500 ML IV SCH ×2 (04:09→09:37)
[2016-12-19 04:17] LABS: BAND NEUTROPHILS % (MANUAL) 8 % (0-8); BASOPHILS % (MANUAL) 0 % (0-2); EOSINOPHILS % (MANUAL) 0 % (0-3); LYMPHOCYTES % (MANUAL) 5 % (20-45); NEUTROPHILS % (MANUAL) 86 % (45-75); PLATELET ESTIMATE ADEQUATE; PLATELET MORPHOLOGY NORMAL; TOTAL CELLS COUNTED 100
[2016-12-19] MEDS: SandoSTATIN 100mcg/ml amp SUBQ SCH ×3 (06:26→22:12)
[2016-12-19 06:51] LABS: ABG PCO2 43.5 mmHg (35.0-45.0)
[2016-12-19 06:52] LABS: ABG ALLEN TEST POSITIVE; ABG BASE EXCESS 0.6
[2016-12-19] MEDS: Sucralfate 1gm tab ORAL SCH ×4 (09:19→21:17)
--- NOTE | 2016-12-19 09:55 | Pulmonolgy Critical Care Note ---
Critical Care - Asmt/Plan Problems: (1) Respiratory failure requiring intubation (2) Sepsis (3) Pancreatitis (4) ATN (acute tubular necrosis) (5) Atrial fibrillation Respiratory: monitor respiratory rate, adjust FIO2, CXR Cardiac: continue to monitor HR/BP Renal: F/U I&O, keep IV fluid, other - stop lasix, dc iv fluids, continue tpn Infectious Disease: check cultures Gastrointestinal: continue feedings/current rate Endocrine: monitor blood sugar, continue sliding scale insulin Hematologic: monitor H/H, transfuse if hgb<8.5 Neurologic: PRN Ativan, PRN Morphine, keep patient comfortable Affect: PRN ativan Prophylaxis: Protonix, Heparin - drip for afib Time Spent (Minutes): 40 Notes Reviewed: 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 with: nurses, consultants, renal case managerloss prevention manager - Objective Last 24 Hour Vital Signs Date Time Temp Pulse Resp B/P Pulse Ox O2 Delivery O2 Flow Rate FiO2 12/19/16 09:18 57 140/39 12/19/16 09:05 57 16 30 12/19/16 09:00 52 15 140/39 97 Mechanical Ventilator 30 12/19/16 08:00 99.0 57 15 142/43 95 Mechanical Ventilator 30 12/19/16 08:00 30 12/19/16 07:00 54 20 154/41 100 Mechanical Ventilator 30 12/19/16 06:58 56 15 30 12/19/16 06:00 52 20 146/40 100 Mechanical Ventilator 40 12/19/16 05:00 51 14 40 12/19/16 05:00 99.0 50 20 154/41 100 Mechanical Ventilator 40 12/19/16 04:00 40 12/19/16 04:00 99.0 50 20 142/37 100 Mechanical Ventilator 40 12/19/16 04:00 54 12/19/16 03:14 76 21 40 12/19/16 03:00 50 16 143/38 100 Mechanical Ventilator 40 12/19/16 02:00 54 16 159/53 100 Mechanical Ventilator 40 12/19/16 01:28 85 26 40 12/19/16 01:00 61 16 157/40 100 Mechanical Ventilator 40 12/19/16 00:00 40 12/19/16 00:00 54 12/19/16 00:00 99.2 55 16 141/42 100 Mechanical Ventilator 40 12/18/16 23:18 70 15 40 12/18/16 23:00 62 16 156/46 100 Mechanical Ventilator 40 12/18/16 22:00 61 21 136/45 100 Mechanical Ventilator 40 12/18/16 21:21 56 15 40 12/18/16 21:00 61 18 141/46 100 Mechanical Ventilator 40 12/18/16 20:00 40 12/18/16 20:00 99.5 61 16 141/44 100 Mechanical Ventilator 40 12/18/16 20:00 57 12/18/16 19:00 61 15 159/40 100 Mechanical Ventilator 40 12/18/16 19:00 63 16 40 12/18/16 18:00 57 15 140/39 100 Mechanical Ventilator 40 12/18/16 17:00 60 15 143/37 100 Mechanical Ventilator 40 12/18/16 16:00 57 12/18/16 16:00 99.1 58 15 145/46 100 Mechanical Ventilator 40 12/18/16 16:00 40 12/18/16 15:05 59 15 40 12/18/16 15:00 58 15 128/40 100 Mechanical Ventilator 40 12/18/16 14:00 64 15 134/41 100 Mechanical Ventilator 40 12/18/16 13:27 58 18 40 12/18/16 13:00 64 16 144/40 99 Mechanical Ventilator 40 12/18/16 12:00 58 12/18/16 12:00 99.9 61 15 139/44 99 Mechanical Ventilator 40 12/18/16 12:00 40 12/18/16 11:11 62 16 40 12/18/16 11:00 60 15 134/36 99 Mechanical Ventilator 40 12/18/16 10:00 58 15 131/39 100 Mechanical Ventilator 50 Status: awake Condition: critical HEENT: atraumatic Neck: full ROM Lungs: clear Heart: HR/BP stable, HR/BP unstable Abdomen: soft, non-tender, active bowel sounds Extremities: no C/C/E, edema Micro: Microbiology Date/Time Source Procedure Growth Status 12/17/16 17:00 Blood Blood Culture - Preliminary NO GROWTH AFTER 24 HOURS Resulted 12/17/16 12:15 Blood Blood Culture - Preliminary NO GROWTH AFTER 24 HOURS Resulted 12/17/16 10:45 Sputum Gram Stain - Final Complete 12/17/16 10:45 Sputum Culture - Final Mandy Albicans Complete 12/18/16 05:00 Urine,Clean Catch Urine Culture - Preliminary NO GROWTH Resulted Accucheck: 244 Critical Care - Subjective ROS Limited/Unobtainable: Yes ICU Day: 3 Intubation Day: 3 Condition: critical EKG Rhythm: Sinus Rhythm FI02: 30 Vent Support Breath Rate: 15 Vent Support Mode: AC Vent Tidal Volume: 600 Sputum Amount: Small PEEP: 5.0 PIP: 36 Fluids: TPN I&O: Intake and Output 12/18/16 12/19/16 18:59 06:59 Intake Total 1795.712 ml 2067.058 ml Output Total 130 ml 430 ml Balance 1665.712 ml 1637.058 ml IV Total 1745.712 ml 2067.058 ml Other 50 ml Output Urine Total 130 ml 430 ml # Bowel Movements 4 CXR: increased pulmonary edema, infiltrate ET-Tube: 7.5 ET Position: 22 Labs: Laboratory Tests Test 12/18/16 13:00 12/18/16 19:30 12/19/16 02:50 12/19/16 06:49 Activated Partial Thromboplast Time 38 SEC (23-33) H 52 SEC (23-33) H 61 SEC (23-33) H White Blood Count 19.1 K/UL (4.8-10.8) H Red Blood Count 2.91 M/UL (4.20-5.40) L Hemoglobin 8.6 G/DL (12.0-16.0) L Hematocrit 27.1 % (37.0-47.0) L Mean Corpuscular Volume 93 FL (80-99) Mean Corpuscular Hemoglobin 29.5 PG (27.0-31.0) Mean Corpuscular Hemoglobin Concent 31.8 G/DL (32.0-36.0) L Red Cell Distribution Width 13.9 % (11.6-14.8) Platelet Count 169 K/UL (150-450) Mean Platelet Volume 8.1 FL (6.5-10.1) Neutrophils (%) (Auto) % (45.0-75.0) Lymphocytes (%) (Auto) % (20.0-45.0) Monocytes (%) (Auto) % (1.0-10.0) Eosinophils (%) (Auto) % (0.0-3.0) Basophils (%) (Auto) % (0.0-2.0) Differential Total Cells Counted 100 Neutrophils % (Manual) 86 % (45-75) H Lymphocytes % (Manual) 5 % (20-45) L Monocytes % (Manual) 1 % (1-10) Eosinophils % (Manual) 0 % (0-3) Basophils % (Manual) 0 % (0-2) Band Neutrophils 8 % (0-8) Platelet Estimate Adequate Platelet Morphology Normal Red Blood Cell Morphology Normal Sodium Level 137 mEQ/L (135-145) Potassium Level 3.1 mEQ/L (3.4-4.9) L Chloride Level 100 mEQ/L (98-107) Carbon Dioxide Level 24 mEQ/L (20-30) Anion Gap 13 (5-15) Blood Urea Nitrogen 63 mg/dL (7-23) H Creatinine 2.2 mg/dL (0.5-0.9) H Estimat Glomerular Filtration Rate 22.0 mL/min (>60) Glucose Level 196 mg/dL (74-106) H Calcium Level 8.0 mg/dL (8.6-10.2) L Phosphorus Level 3.3 mg/dL (2.5-4.8) Magnesium Level 2.0 mg/dL (1.7-2.5) Total Bilirubin 0.5 mg/dL (0.0-1.2) Aspartate Amino Transf (AST/SGOT) 19 U/L (5-40) Alanine Aminotransferase (ALT/SGPT) 9 U/L (3-33) Alkaline Phosphatase 98 U/L (35-104) Total Protein 5.1 g/dL (6.6-8.7) L Albumin 1.5 g/dL (3.5-5.2) L Globulin 3.6 g/dL Albumin/Globulin Ratio 0.4 (1.0-2.7) L Amylase Level 161 U/L (10-110) H Lipase 72 U/L (< 60) H Arterial Blood pH 7.390 (7.350-7.450) Arterial Blood Partial Pressure CO2 43.5 mmHg (35.0-45.0) Arterial Blood Partial Pressure O2 129.4 mmHg (75.0-100.0) H Arterial Blood HCO3 25.7 mmol/L (22.0-26.0) Arterial Blood Oxygen Saturation 98.2 % (92.0-98.0) H Arterial Blood Base Excess 0.6 Ok Test Positive Test 12/19/16 09:45 Activated Partial Thromboplast Time Pending TONY BRIDGES Dec 19, 2016 09:55
--- NOTE | 2016-12-19 10:08 | General Progress Note ---
Progress Note Progress Note Surgery patient seen and examined at bedside. no acute events afebrile, HD stable, leukocytosis trending down abdomen soft, more distended today, mild tenderness on palpation no acute surgical intervention necessary at this time cont with medical management of acute severe pancreatitis will continue to monitor and follow. Rodrigo Andino Dec 19, 2016 10:08
[2016-12-19 10:11] LABS: ALANINE AMINOTRANSFERASE 9 U/L (3-33); ALBUMIN/GLOBULIN RATIO 0.4 (1.0-2.7); ANION GAP 20 (5-15); ASPARTATE AMINO TRANSFERASE 37 U/L (5-40); CALCIUM 7.9 mg/dL (8.6-10.2); CARBON DIOXIDE 20 mEQ/L (20-30); CHLORIDE 95 mEQ/L (98-107); CREATININE 2.3 mg/dL (0.5-0.9); HEMOLYSIS 6; POTASSIUM 3.4 mEQ/L (3.4-4.9); SODIUM 135 mEQ/L (135-145); TOTAL PROTEIN 5.2 g/dL (6.6-8.7); URIC ACID 8.2 mg/dL (3.0-7.5)
[2016-12-19 10:22] LABS: THYROID STIMULATING HORMONE 0.388 uIU/mL (0.300-4.500)
[2016-12-19] MEDS ORDERED: Sodium Bicarbonate 8.4% 50ml Inj IV ONE (10:45)
[2016-12-19] MEDS ORDERED: Heparin 2000 units/Ns 1000ml INJ ONE (10:45)
[2016-12-19] MEDS ORDERED: Lidocaine 1% Plain 30 ml INJ ONE (10:45)
--- NOTE | 2016-12-19 10:53 | General Progress Note ---
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 on anticoagulation Pulmonary HTN HypoAlbuminemia Plan: Per GI / Surgery Keep BP under control Avoid nephrotoxics K supplement as needed monitor renal parameters Subjective ROS Limited/Unobtainable: Yes HEENT: Reports: other - on Vent Allergies: Coded Allergies: No Known Allergies (Unverified , 09/28/14) Objective Last 24 Hour Vital Signs Date Time Temp Pulse Resp B/P Pulse Ox O2 Delivery O2 Flow Rate FiO2 12/19/16 10:00 54 16 135/44 95 Mechanical Ventilator 30 12/19/16 09:18 57 140/39 12/19/16 09:05 57 16 30 12/19/16 09:00 52 15 140/39 97 Mechanical Ventilator 30 12/19/16 08:00 53 12/19/16 08:00 99.0 57 15 142/43 95 Mechanical Ventilator 30 12/19/16 08:00 30 12/19/16 07:00 54 20 154/41 100 Mechanical Ventilator 30 12/19/16 06:58 56 15 30 12/19/16 06:00 52 20 146/40 100 Mechanical Ventilator 40 12/19/16 05:00 51 14 40 12/19/16 05:00 99.0 50 20 154/41 100 Mechanical Ventilator 40 12/19/16 04:00 40 12/19/16 04:00 99.0 50 20 142/37 100 Mechanical Ventilator 40 12/19/16 04:00 54 12/19/16 03:14 76 21 40 12/19/16 03:00 50 16 143/38 100 Mechanical Ventilator 40 12/19/16 02:00 54 16 159/53 100 Mechanical Ventilator 40 12/19/16 01:28 85 26 40 12/19/16 01:00 61 16 157/40 100 Mechanical Ventilator 40 12/19/16 00:00 40 12/19/16 00:00 54 12/19/16 00:00 99.2 55 16 141/42 100 Mechanical Ventilator 40 12/18/16 23:18 70 15 40 12/18/16 23:00 62 16 156/46 100 Mechanical Ventilator 40 12/18/16 22:00 61 21 136/45 100 Mechanical Ventilator 40 12/18/16 21:21 56 15 40 12/18/16 21:00 61 18 141/46 100 Mechanical Ventilator 40 12/18/16 20:00 40 12/18/16 20:00 99.5 61 16 141/44 100 Mechanical Ventilator 40 12/18/16 20:00 57 12/18/16 19:00 61 15 159/40 100 Mechanical Ventilator 40 12/18/16 19:00 63 16 40 12/18/16 18:00 57 15 140/39 100 Mechanical Ventilator 40 12/18/16 17:00 60 15 143/37 100 Mechanical Ventilator 40 12/18/16 16:00 57 12/18/16 16:00 99.1 58 15 145/46 100 Mechanical Ventilator 40 12/18/16 16:00 40 12/18/16 15:05 59 15 40 12/18/16 15:00 58 15 128/40 100 Mechanical Ventilator 40 12/18/16 14:00 64 15 134/41 100 Mechanical Ventilator 40 12/18/16 13:27 58 18 40 12/18/16 13:00 64 16 144/40 99 Mechanical Ventilator 40 12/18/16 12:00 58 12/18/16 12:00 99.9 61 15 139/44 99 Mechanical Ventilator 40 12/18/16 12:00 40 12/18/16 11:11 62 16 40 12/18/16 11:00 60 15 134/36 99 Mechanical Ventilator 40 Intake and Output 12/18/16 12/19/16 18:59 06:59 Intake Total 1795.712 ml 2067.058 ml Output Total 130 ml 430 ml Balance 1665.712 ml 1637.058 ml IV Total 1745.712 ml 2067.058 ml Other 50 ml Output Urine Total 130 ml 430 ml # Bowel Movements 4 Laboratory Tests 12/18/16 13:00: Activated Partial Thromboplast Time 38H 12/18/16 19:30: Activated Partial Thromboplast Time 52H 12/19/16 02:50: Activated Partial Thromboplast Time 61H, White Blood Count 19.1H, Red Blood Count 2.91L, Hemoglobin 8.6L, Hematocrit 27.1L, Mean Corpuscular Volume 93, Mean Corpuscular Hemoglobin 29.5, Mean Corpuscular Hemoglobin Concent 31.8L, Red Cell Distribution Width 13.9, Platelet Count 169, Mean Platelet Volume 8.1, Neutrophils (%) (Auto) , Lymphocytes (%) (Auto) , Monocytes (%) (Auto) , Eosinophils (%) (Auto) , Basophils (%) (Auto) , Differential Total Cells Counted 100, Neutrophils % (Manual) 86H, Lymphocytes % (Manual) 5L, Monocytes % (Manual) 1, Eosinophils % (Manual) 0, Basophils % (Manual) 0, Band Neutrophils 8 , Platelet Estimate Adequate, Platelet Morphology Normal, Red Blood Cell Morphology Normal, Sodium Level 137, Potassium Level 3.1L, Chloride Level 100, Carbon Dioxide Level 24, Anion Gap 13, Blood Urea Nitrogen 63H, Creatinine 2.2H , Estimat Glomerular Filtration Rate 22.0, Glucose Level 196H, Calcium Level 8.0L, Phosphorus Level 3.3, Magnesium Level 2.0, Total Bilirubin 0.5, Aspartate Amino Transf (AST/SGOT) 19, Alanine Aminotransferase (ALT/SGPT) 9, Alkaline Phosphatase 98, Total Protein 5.1L, Albumin 1.5L, Globulin 3.6, Albumin/ Globulin Ratio 0.4L, Amylase Level 161H, Lipase 72H 12/19/16 03:00: Sodium Level 135, Potassium Level 3.4, Chloride Level 95L, Carbon Dioxide Level 20, Anion Gap 20H, Blood Urea Nitrogen 65H, Creatinine 2.3H, Estimat Glomerular Filtration Rate 21.0, Glucose Level 191H, Calcium Level 7.9L, Total Bilirubin 0.5, Aspartate Amino Transf (AST/SGOT) 37, Alanine Aminotransferase (ALT/SGPT) 9 , Alkaline Phosphatase 96, Total Protein 5.2L, Albumin 1.7L, Globulin 3.5, Albumin/Globulin Ratio 0.4L, Uric Acid 8.2H, Total Creatine Kinase 98, Thyroid Stimulating Hormone (TSH) 0.388, Free Thyroxine 0.89 12/19/16 06:49: Arterial Blood pH 7.390, Arterial Blood Partial Pressure CO2 43.5, Arterial Blood Partial Pressure O2 129.4H, Arterial Blood HCO3 25.7, Arterial Blood Oxygen Saturation 98.2H, Arterial Blood Base Excess 0.6, Ok Test Positive 12/19/16 09:45: Activated Partial Thromboplast Time 78H, Plasma/Serum Osmolality [Pending], Free Triiodothyronine [Pending], Cortisol [Pending] Height (Feet): 5 Height (Inches): 1.00 Weight (Pounds): 145 General Appearance: mild distress EENT: other - on vent Neck: stiff neck Cardiovascular: bradycardia Respiratory/Chest: decreased breath sounds Objective other PE not changed KAMINI SNOW Dec 19, 2016 10:53
--- NOTE | 2016-12-19 11:22 | Diagnostic Imaging Report ---
Indication: DYSPNEA Technique: One view of the chest Comparison: 12/18/2016 Findings: Please note that the date listed on the exam is incorrect. The correct date is 12/19/2016. Endotracheal tube, nasogastric tube, right arm PICC remain. There is decreasing pleural fluid on the left. Diffuse bilateral interstitial and alveolar disease persists, perhaps slightly improved. The heart remains enlarged. Impression: Interim slight improvement but persistence of diffuse bilateral interstitial and alveolar parenchymal disease Decreased left pleural fluid, over one day
[2016-12-19 12:08] LABS: APPEARANCE,URINE SLIGHTLY CLOUDY; KETONES,URINE NEGATIVE (NEGATIVE); LEUKOCYTE ESTERASE ,URINE NEGATIVE (NEGATIVE); NITRITE,URINE NEGATIVE (NEGATIVE); PH,URINE 5 (4.5-8.0); PROTEIN,URINE NEGATIVE (NEGATIVE); UROBILINOGEN,URINE NORMAL MG/DL (0.0-1.0)
[2016-12-19 12:14] LABS: BACTERIA,URINE OCCASIONAL /HPF; RBC,URINE 0-2 /HPF (0 - 2); SQUAMOUS EPITHELIAL CELL,UR FEW /LPF (NONE/OCC); WBC,URINE 0-2 /HPF (0 - 2)
[2016-12-19 12:15] LABS: FINE GRANULAR CASTS,URINE 0-2 /LPF; HYALINE CASTS, URINE 0-2 /LPF
--- NOTE | 2016-12-19 14:19 | Diagnostic Imaging Report ---
Indications: Needs long-term IV access Technique: Procedure performed at bedside. Ultrasound confirms patent compressible left basilic vein. Total sterile technique, including sterile probe cover and sterile gel, sterile gloves, hand hygiene, hat, mask,, sterile gown, large sterile drape, and preparation with 2% chlorhexidine utilized. Local anesthesia with 1% lidocaine. Under real-time ultrasound guidance, puncture basilic vein using 21-gauge needle, passage 0.018 guidewire, exchange for 5 [place] peel-away sheath. 5 [place] Bard dual-lumen power PICC cut to 43 cm. It was inserted through the peel-away sheath. Peel-away sheath and guidewire removed. Catheter fixed to the skin. Both catheter ports aspirated and flushed. Patient tolerated procedure well, without immediate complication. Followup chest x-ray obtained, documents catheter tip position at the right atrium. Impression: Successful bedside placement of left arm PICC under sonographic guidance, as described above.
--- NOTE | 2016-12-19 15:43 | Cardiology Report ---
APPROVED REPORT EKG Measurement Heart [id number] Atrial fibrillation with slow ventricular response Abnormal ECG
--- NOTE | 2016-12-19 20:09 | Cardiology Progress Note ---
Assessment/Plan Assessment/Plan chf / fluid overload respiratory acidosis pancreattiis s/ bioprostheic AV repalcment 2014 s/p cnc mechanic mirtral vavle prosthesis on anticoagulation perm afib on anticoagualtion with couamdin coagulaopathy now elevated dueot med interaction adn disease process leukocytosis ARF note no surgery planned diurtics cr worsending may be related to 3rd spacing due to pancreatitis gettign tpn ct result noted d/w rn jemima will decreae bb for now cr still uphill seem over all better more responsive and communic ative is on iv heparin Subjective Cardiovascular: Denies: chest pain, lightheadedness, palpitations Respiratory: Denies: shortness of breath Gastrointestinal/Abdominal: Denies: abdominal pain Genitourinary: Denies: burning Subjective on the vent Objective Last 24 Hour Vital Signs Date Time Temp Pulse Resp B/P Pulse Ox O2 Delivery O2 Flow Rate FiO2 12/19/16 19:30 54 16 30 12/19/16 19:00 54 15 158/42 99 Mechanical Ventilator 30 12/19/16 18:00 52 14 158/48 99 Mechanical Ventilator 30 12/19/16 18:00 54 16 158/49 99 Mechanical Ventilator 30 12/19/16 17:24 46 14 30 12/19/16 17:00 49 13 149/44 99 Mechanical Ventilator 30 12/19/16 16:00 98.7 42 15 148/49 99 Mechanical Ventilator 30 12/19/16 16:00 51 12/19/16 16:00 30 12/19/16 15:22 46 15 30 12/19/16 15:00 46 13 144/43 98 Mechanical Ventilator 30 12/19/16 14:00 48 15 146/45 99 Mechanical Ventilator 30 12/19/16 13:00 51 15 158/42 98 Mechanical Ventilator 30 12/19/16 12:55 50 15 30 12/19/16 12:00 51 12/19/16 12:00 30 12/19/16 12:00 98.3 51 18 142/43 100 Mechanical Ventilator 30 12/19/16 12:00 51 18 142/43 100 Mechanical Ventilator 30 12/19/16 11:14 59 16 30 12/19/16 11:00 43 18 138/42 100 Mechanical Ventilator 30 12/19/16 10:00 54 16 135/44 95 Mechanical Ventilator 30 4/12/17 09:18 57 140/39 4/12/17 09:05 57 16 30 12/19/16 09:00 52 15 140/39 97 Mechanical Ventilator 30 12/19/16 08:00 53 12/19/16 08:00 99.0 57 15 142/43 95 Mechanical Ventilator 30 12/19/16 08:00 30 12/19/16 07:00 54 20 154/41 100 Mechanical Ventilator 30 12/19/16 06:58 56 15 30 12/19/16 06:00 52 20 146/40 100 Mechanical Ventilator 40 12/19/16 05:00 51 14 40 12/19/16 05:00 99.0 50 20 154/41 100 Mechanical Ventilator 40 12/19/16 04:00 40 12/19/16 04:00 99.0 50 20 142/37 100 Mechanical Ventilator 40 12/19/16 04:00 54 12/19/16 03:14 76 21 40 12/19/16 03:00 50 16 143/38 100 Mechanical Ventilator 40 12/19/16 02:00 54 16 159/53 100 Mechanical Ventilator 40 12/19/16 01:28 85 26 40 12/19/16 01:00 61 16 157/40 100 Mechanical Ventilator 40 12/19/16 00:00 40 12/19/16 00:00 54 12/19/16 00:00 99.2 55 16 141/42 100 Mechanical Ventilator 40 12/18/16 23:18 70 15 40 12/18/16 23:00 62 16 156/46 100 Mechanical Ventilator 40 12/18/16 22:00 61 21 136/45 100 Mechanical Ventilator 40 12/18/16 21:21 56 15 40 12/18/16 21:00 61 18 141/46 100 Mechanical Ventilator 40 General Appearance: alert, on vent Neck: supple Cardiovascular: systolic murmur, irregularly irregular Respiratory/Chest: lungs clear Abdomen: normal bowel sounds, soft Extremities: no swelling Intake and Output 12/18/16 12/19/16 19:00 07:00 Intake Total 1922.390 ml 1969.319 ml Output Total 180 ml 410 ml Balance 1742.390 ml 1559.319 ml IV Total 1872.390 ml 1969.319 ml Other 50 ml Output Urine Total 180 ml 410 ml # Bowel Movements 4 Laboratory Tests Test 12/19/16 02:50 12/19/16 03:00 12/19/16 06:49 12/19/16 09:45 White Blood Count 19.1 K/UL (4.8-10.8) H Red Blood Count 2.91 M/UL (4.20-5.40) L Hemoglobin 8.6 G/DL (12.0-16.0) L Hematocrit 27.1 % (37.0-47.0) L Mean Corpuscular Volume 93 FL (80-99) Mean Corpuscular Hemoglobin 29.5 PG (27.0-31.0) Mean Corpuscular Hemoglobin Concent 31.8 G/DL (32.0-36.0) L Red Cell Distribution Width 13.9 % (11.6-14.8) Platelet Count 169 K/UL (150-450) Mean Platelet Volume 8.1 FL (6.5-10.1) Neutrophils (%) (Auto) % (45.0-75.0) Lymphocytes (%) (Auto) % (20.0-45.0) Monocytes (%) (Auto) % (1.0-10.0) Eosinophils (%) (Auto) % (0.0-3.0) Basophils (%) (Auto) % (0.0-2.0) Differential Total Cells Counted 100 Neutrophils % (Manual) 86 % (45-75) H Lymphocytes % (Manual) 5 % (20-45) L Monocytes % (Manual) 1 % (1-10) Eosinophils % (Manual) 0 % (0-3) Basophils % (Manual) 0 % (0-2) Band Neutrophils 8 % (0-8) Platelet Estimate Adequate Platelet Morphology Normal Red Blood Cell Morphology Normal Activated Partial Thromboplast Time 61 SEC (23-33) H 78 SEC (23-33) H Sodium Level 137 mEQ/L (135-145) 135 mEQ/L (135-145) Potassium Level 3.1 mEQ/L (3.4-4.9) L 3.4 mEQ/L (3.4-4.9) Chloride Level 100 mEQ/L (98-107) 95 mEQ/L (98-107) L Carbon Dioxide Level 24 mEQ/L (20-30) 20 mEQ/L (20-30) Anion Gap 13 (5-15) 20 (5-15) H Blood Urea Nitrogen 63 mg/dL (7-23) H 65 mg/dL (7-23) H Creatinine 2.2 mg/dL (0.5-0.9) H 2.3 mg/dL (0.5-0.9) H Estimat Glomerular Filtration Rate 22.0 mL/min (>60) 21.0 mL/min (>60) Glucose Level 196 mg/dL (74-106) H 191 mg/dL (74-106) H Calcium Level 8.0 mg/dL (8.6-10.2) L 7.9 mg/dL (8.6-10.2) L Phosphorus Level 3.3 mg/dL (2.5-4.8) Magnesium Level 2.0 mg/dL (1.7-2.5) Total Bilirubin 0.5 mg/dL (0.0-1.2) 0.5 mg/dL (0.0-1.2) Aspartate Amino Transf (AST/SGOT) 19 U/L (5-40) 37 U/L (5-40) Alanine Aminotransferase (ALT/SGPT) 9 U/L (3-33) 9 U/L (3-33) Alkaline Phosphatase 98 U/L (35-104) 96 U/L (35-104) Total Protein 5.1 g/dL (6.6-8.7) L 5.2 g/dL (6.6-8.7) L Albumin 1.5 g/dL (3.5-5.2) L 1.7 g/dL (3.5-5.2) L Globulin 3.6 g/dL 3.5 g/dL Albumin/Globulin Ratio 0.4 (1.0-2.7) L 0.4 (1.0-2.7) L Amylase Level 161 U/L (10-110) H Lipase 72 U/L (< 60) H Uric Acid 8.2 mg/dL (3.0-7.5) H Total Creatine Kinase 98 U/L (26-140) Thyroid Stimulating Hormone (TSH) 0.388 uIU/mL (0.300-4.500) Free Thyroxine 0.89 ng/dL (0.86-1.85) Arterial Blood pH 7.390 (7.350-7.450) Arterial Blood Partial Pressure CO2 43.5 mmHg (35.0-45.0) Arterial Blood Partial Pressure O2 129.4 mmHg (75.0-100.0) H Arterial Blood HCO3 25.7 mmol/L (22.0-26.0) Arterial Blood Oxygen Saturation 98.2 % (92.0-98.0) H Arterial Blood Base Excess 0.6 Ok Test Positive Plasma/Serum Osmolality Pending Free Triiodothyronine Pending Cortisol Pending Test 12/19/16 10:00 Urine Color Pale yellow Urine Appearance Slightly cloudy Urine pH 5 (4.5-8.0) Urine Specific [place] 1.015 (1.005-1.035) Urine Protein Negative (NEGATIVE) Urine Glucose (UA) Negative (NEGATIVE) Urine Ketones Negative (NEGATIVE) Urine Occult Blood 1+ (NEGATIVE) H Urine Nitrite Negative (NEGATIVE) Urine Bilirubin Negative (NEGATIVE) Urine Urobilinogen Normal MG/DL (0.0-1.0) Urine Leukocyte Esterase Negative (NEGATIVE) Urine RBC 0-2 /HPF (0 - 2) Urine WBC 0-2 /HPF (0 - 2) Urine Squamous Epithelial Cells Few /LPF (NONE/OCC) Urine Bacteria Occasional /HPF (NONE) Urine Hyaline Casts 0-2 /LPF (NONE) H Urine Fine Granular Casts 0-2 /LPF (NONE) H Urine Eosinophils None seen Microbiology Date/Time Source Procedure Growth Status 12/17/16 17:00 Blood Blood Culture - Preliminary NO GROWTH AFTER 24 HOURS Resulted 12/17/16 12:15 Blood Blood Culture - Preliminary NO GROWTH AFTER 24 HOURS Resulted 12/17/16 10:45 Sputum Gram Stain - Final Complete 12/17/16 10:45 Sputum Culture - Final Mandy Albicans Complete 12/18/16 05:00 Urine,Clean Catch Urine Culture - Preliminary NO GROWTH Resulted ANNE RAM Dec 19, 2016 20:09
[2016-12-19] MEDS ORDERED: Fat Emulsion Iv 20% 240 ML in Tpn 1,992 ML IV SCH (21:00)
[2016-12-19] MEDS: Morphine Sulfate 4mg/ml Inj IVP PRN (21:09)
--- NOTE | 2016-12-19 21:58 | Infectious Diseases Prog Note ---
Assessment/Plan Assessment/Plan ASSESSMENT: Pancreatitis recurrent CT: Findings compatible with marked worsening of acute pancreatitis MRCP : Cholelithiasis. There is also a calculus within the duct adjacent to the gallbladder Pancreatic Enzymes improving Leukocytosis ( SIRS ) improving cholelithiasis : US of liver : Incidental finding of cholelithiasis and mild gallbladder wall thickening positive sonographic Diaz's sign LFT : Nl VDRF: Cxray : Increase in bilateral congestive changes with persistent small right , probable new left pleural effusions ARF SP aortic stenosis mitral stenosis status post mitral valve replacement AFib Pulmonary hypertension PLAN: - cont Merrem d# / ,and Mycamine change to Diflucan d# / - monitor CBC, temperatures, - Monitor culture ( BL) - monitor LFT - GI f/u - Sx is following for possible Cholecystectomy later - VDRF - amylase , Lipase Subjective Allergies: Coded Allergies: No Known Allergies (Unverified , 09/28/14) Subjective on vent Objective Vital Signs Last 24 Hour Vital Signs Date Time Temp Pulse Resp B/P Pulse Ox O2 Delivery O2 Flow Rate FiO2 12/19/16 21:30 49 15 30 12/19/16 21:00 61 15 155/50 98 Mechanical Ventilator 30 12/19/16 20:00 30 12/19/16 20:00 98.0 51 15 167/44 99 Mechanical Ventilator 30 12/19/16 20:00 49 12/19/16 19:30 54 16 30 12/19/16 19:00 54 15 158/42 99 Mechanical Ventilator 30 12/19/16 18:00 52 14 158/48 99 Mechanical Ventilator 30 12/19/16 18:00 54 16 158/49 99 Mechanical Ventilator 30 12/19/16 17:24 46 14 30 12/19/16 17:00 49 13 149/44 99 Mechanical Ventilator 30 12/19/16 16:00 98.7 42 15 148/49 99 Mechanical Ventilator 30 12/19/16 16:00 51 12/19/16 16:00 30 12/19/16 15:22 46 15 30 12/19/16 15:00 46 13 144/43 98 Mechanical Ventilator 30 12/19/16 14:00 48 15 146/45 99 Mechanical Ventilator 30 12/19/16 13:00 51 15 158/42 98 Mechanical Ventilator 30 12/19/16 12:55 50 15 30 12/19/16 12:00 51 12/19/16 12:00 30 12/19/16 12:00 98.3 51 18 142/43 100 Mechanical Ventilator 30 12/19/16 12:00 51 18 142/43 100 Mechanical Ventilator 30 12/19/16 11:14 59 16 30 12/19/16 11:00 43 18 138/42 100 Mechanical Ventilator 30 12/19/16 10:00 54 16 135/44 95 Mechanical Ventilator 30 12/19/16 09:18 57 140/39 12/19/16 09:05 57 16 30 12/19/16 09:00 52 15 140/39 97 Mechanical Ventilator 30 12/19/16 08:00 53 12/19/16 08:00 99.0 57 15 142/43 95 Mechanical Ventilator 30 12/19/16 08:00 30 12/19/16 07:00 54 20 154/41 100 Mechanical Ventilator 30 12/19/16 06:58 56 15 30 12/19/16 06:00 52 20 146/40 100 Mechanical Ventilator 40 12/19/16 05:00 51 14 40 12/19/16 05:00 99.0 50 20 154/41 100 Mechanical Ventilator 40 12/19/16 04:00 40 12/19/16 04:00 99.0 50 20 142/37 100 Mechanical Ventilator 40 12/19/16 04:00 54 12/19/16 03:14 76 21 40 12/19/16 03:00 50 16 143/38 100 Mechanical Ventilator 40 12/19/16 02:00 54 16 159/53 100 Mechanical Ventilator 40 12/19/16 01:28 85 26 40 12/19/16 01:00 61 16 157/40 100 Mechanical Ventilator 40 12/19/16 00:00 40 12/19/16 00:00 54 12/19/16 00:00 99.2 55 16 141/42 100 Mechanical Ventilator 40 12/18/16 23:18 70 15 40 12/18/16 23:00 62 16 156/46 100 Mechanical Ventilator 40 12/18/16 22:00 61 21 136/45 100 Mechanical Ventilator 40 Height (Feet): 5 Height (Inches): 1.00 Weight (Pounds): 145 HEENT: atraumatic Respiratory/Chest: normal breath sounds Breasts: no masses Cardiovascular: no JVD Microbiology Date/Time Source Procedure Growth Status 12/17/16 17:00 Blood Blood Culture - Preliminary NO GROWTH AFTER 24 HOURS Resulted 12/17/16 12:15 Blood Blood Culture - Preliminary NO GROWTH AFTER 24 HOURS Resulted 12/17/16 10:45 Sputum Gram Stain - Final Complete 12/17/16 10:45 Sputum Culture - Final Mandy Albicans Complete 12/18/16 05:00 Urine,Clean Catch Urine Culture - Preliminary NO GROWTH Resulted Laboratory Tests Test 12/19/16 02:50 12/19/16 03:00 12/19/16 06:49 12/19/16 09:45 White Blood Count 19.1 K/UL (4.8-10.8) H Red Blood Count 2.91 M/UL (4.20-5.40) L Hemoglobin 8.6 G/DL (12.0-16.0) L Hematocrit 27.1 % (37.0-47.0) L Mean Corpuscular Volume 93 FL (80-99) Mean Corpuscular Hemoglobin 29.5 PG (27.0-31.0) Mean Corpuscular Hemoglobin Concent 31.8 G/DL (32.0-36.0) L Red Cell Distribution Width 13.9 % (11.6-14.8) Platelet Count 169 K/UL (150-450) Mean Platelet Volume 8.1 FL (6.5-10.1) Neutrophils (%) (Auto) % (45.0-75.0) Lymphocytes (%) (Auto) % (20.0-45.0) Monocytes (%) (Auto) % (1.0-10.0) Eosinophils (%) (Auto) % (0.0-3.0) Basophils (%) (Auto) % (0.0-2.0) Differential Total Cells Counted 100 Neutrophils % (Manual) 86 % (45-75) H Lymphocytes % (Manual) 5 % (20-45) L Monocytes % (Manual) 1 % (1-10) Eosinophils % (Manual) 0 % (0-3) Basophils % (Manual) 0 % (0-2) Band Neutrophils 8 % (0-8) Platelet Estimate Adequate Platelet Morphology Normal Red Blood Cell Morphology Normal Activated Partial Thromboplast Time 61 SEC (23-33) H 78 SEC (23-33) H Sodium Level 137 mEQ/L (135-145) 135 mEQ/L (135-145) Potassium Level 3.1 mEQ/L (3.4-4.9) L 3.4 mEQ/L (3.4-4.9) Chloride Level 100 mEQ/L (98-107) 95 mEQ/L (98-107) L Carbon Dioxide Level 24 mEQ/L (20-30) 20 mEQ/L (20-30) Anion Gap 13 (5-15) 20 (5-15) H Blood Urea Nitrogen 63 mg/dL (7-23) H 65 mg/dL (7-23) H Creatinine 2.2 mg/dL (0.5-0.9) H 2.3 mg/dL (0.5-0.9) H Estimat Glomerular Filtration Rate 22.0 mL/min (>60) 21.0 mL/min (>60) Glucose Level 196 mg/dL (74-106) H 191 mg/dL (74-106) H Calcium Level 8.0 mg/dL (8.6-10.2) L 7.9 mg/dL (8.6-10.2) L Phosphorus Level 3.3 mg/dL (2.5-4.8) Magnesium Level 2.0 mg/dL (1.7-2.5) Total Bilirubin 0.5 mg/dL (0.0-1.2) 0.5 mg/dL (0.0-1.2) Aspartate Amino Transf (AST/SGOT) 19 U/L (5-40) 37 U/L (5-40) Alanine Aminotransferase (ALT/SGPT) 9 U/L (3-33) 9 U/L (3-33) Alkaline Phosphatase 98 U/L (35-104) 96 U/L (35-104) Total Protein 5.1 g/dL (6.6-8.7) L 5.2 g/dL (6.6-8.7) L Albumin 1.5 g/dL (3.5-5.2) L 1.7 g/dL (3.5-5.2) L Globulin 3.6 g/dL 3.5 g/dL Albumin/Globulin Ratio 0.4 (1.0-2.7) L 0.4 (1.0-2.7) L Amylase Level 161 U/L (10-110) H Lipase 72 U/L (< 60) H Uric Acid 8.2 mg/dL (3.0-7.5) H Total Creatine Kinase 98 U/L (26-140) Thyroid Stimulating Hormone (TSH) 0.388 uIU/mL (0.300-4.500) Free Thyroxine 0.89 ng/dL (0.86-1.85) Arterial Blood pH 7.390 (7.350-7.450) Arterial Blood Partial Pressure CO2 43.5 mmHg (35.0-45.0) Arterial Blood Partial Pressure O2 129.4 mmHg (75.0-100.0) H Arterial Blood HCO3 25.7 mmol/L (22.0-26.0) Arterial Blood Oxygen Saturation 98.2 % (92.0-98.0) H Arterial Blood Base Excess 0.6 Ok Test Positive Plasma/Serum Osmolality Pending Free Triiodothyronine Pending Cortisol Pending Test 12/19/16 10:00 Urine Color Pale yellow Urine Appearance Slightly cloudy Urine pH 5 (4.5-8.0) Urine Specific [place] 1.015 (1.005-1.035) Urine Protein Negative (NEGATIVE) Urine Glucose (UA) Negative (NEGATIVE) Urine Ketones Negative (NEGATIVE) Urine Occult Blood 1+ (NEGATIVE) H Urine Nitrite Negative (NEGATIVE) Urine Bilirubin Negative (NEGATIVE) Urine Urobilinogen Normal MG/DL (0.0-1.0) Urine Leukocyte Esterase Negative (NEGATIVE) Urine RBC 0-2 /HPF (0 - 2) Urine WBC 0-2 /HPF (0 - 2) Urine Squamous Epithelial Cells Few /LPF (NONE/OCC) Urine Bacteria Occasional /HPF (NONE) Urine Hyaline Casts 0-2 /LPF (NONE) H Urine Fine Granular Casts 0-2 /LPF (NONE) H Urine Eosinophils None seen Current Medications Medications (Trade) Dose Ordered Sig/Lisbeth Route PRN Reason Start Time Stop Time Status Last Admin Dose Admin Acetaminophen (Tylenol) 650 mg Q4H PRN ORAL fever 12/17/16 08:00 01/16/17 07:59 12/17/16 19:55 Amlodipine Besylate 2.5 mg 2.5 mg DAILY ORAL 12/18/16 09:00 01/17/17 08:59 12/19/16 09:18 Dextrose (D10w) 1,000 ml @ 80 mls/hr [id number] PRN IV If TPN interrupted 12/17/16 07:30 01/16/17 07:29 Dextrose (Dextrose 50%) STAT PRN IV Hypoglycemia 12/17/16 07:30 01/16/17 07:29 Fat Emulsion Intravenous 240 ml/Amino Acids/ Electrolytes/ Dextrose 2,232 ml @ 93 mls/hr Q24H IV 12/19/16 21:00 01/18/17 20:59 12/19/16 21:17 Heparin Sodium/ Dextrose (Heparin) 500 ml @ 28.939 mls/ hr adjust per protocol IV 12/19/16 03:58 01/17/17 12:29 12/19/16 09:37 Insulin Aspart (NovoLOG) No Dose Q6HR SUBQ 12/17/16 12:00 01/16/17 11:59 12/19/16 17:41 Meropenem/Sodium Chloride (Merrem/Sodium Chloride) 55 ml @ 110 mls/hr Q12HR@0600,1800 IV 12/19/16 18:00 12/24/16 17:59 12/19/16 18:11 Morphine Sulfate (Morphine Sulfate) 4 mg Q4H PRN IVP Severe Pain (Pain Scale 7-10) 12/19/16 10:30 12/24/16 07:29 12/19/16 21:09 Nitroglycerin (Ntg) 0.4 mg Q5M X 3 DOSES PRN SL Prn Chest Pain 12/17/16 07:30 01/16/17 07:29 Octreotide Acetate (SandoSTATIN) 100 mcg Q8HR SUBQ 12/17/16 20:00 01/16/17 19:59 12/19/16 14:45 Ondansetron HCl (Zofran) 4 mg Q6H PRN IVP Nausea & Vomiting 12/17/16 07:30 01/16/17 07:29 Pantoprazole 40 mg 40 mg DAILY IVP 12/20/16 09:00 01/19/17 08:59 Phytonadione (Vitamin K) 10 mg QWEEK SUBQ 12/23/16 21:00 01/22/17 20:59 Polyethylene Glycol (Miralax) 17 gm HSPRN PRN ORAL Constipation 12/17/16 07:30 01/16/17 07:29 Sucralfate (Carafate) 1 gm FOUR TIMES A DAY ORAL 12/17/16 09:00 01/16/17 08:59 12/19/16 21:17 Temazepam (Restoril) 15 mg HSPRN PRN ORAL Insomnia 12/17/16 07:30 12/24/16 07:29 OSCAR ANDERSON M.D. Dec 19, 2016 21:58
--- NOTE | 2016-12-19 22:55 | General Progress Note ---
Assessment/Plan Assessment/Plan Assessment Pancreatitis cholelithiasis, no e/o choledocholithiasis Leukocytosis likely reactive, but agree with abx Respiratory failure rise in Cr noted Anemia colon polyp Guarded Assessment/Plan TPN Sandostatin abx watch Cr and other labs critical Subjective Allergies: Coded Allergies: No Known Allergies (Unverified , 09/28/14) Subjective above noted denies abd pain intubated d/w RN On TPN Objective Last 24 Hour Vital Signs Date Time Temp Pulse Resp B/P Pulse Ox O2 Delivery O2 Flow Rate FiO2 12/19/16 21:30 49 15 30 12/19/16 21:00 61 15 155/50 98 Mechanical Ventilator 30 12/19/16 20:00 30 12/19/16 20:00 98.0 51 15 167/44 99 Mechanical Ventilator 30 12/19/16 20:00 49 12/19/16 19:30 54 16 30 12/19/16 19:00 54 15 158/42 99 Mechanical Ventilator 30 12/19/16 18:00 52 14 158/48 99 Mechanical Ventilator 30 12/19/16 18:00 54 16 158/49 99 Mechanical Ventilator 30 12/19/16 17:24 46 14 30 12/19/16 17:00 49 13 149/44 99 Mechanical Ventilator 30 12/19/16 16:00 98.7 42 15 148/49 99 Mechanical Ventilator 30 12/19/16 16:00 51 12/19/16 16:00 30 12/19/16 15:22 46 15 30 12/19/16 15:00 46 13 144/43 98 Mechanical Ventilator 30 12/19/16 14:00 48 15 146/45 99 Mechanical Ventilator 30 12/19/16 13:00 51 15 158/42 98 Mechanical Ventilator 30 12/19/16 12:55 50 15 30 12/19/16 12:00 51 12/19/16 12:00 30 12/19/16 12:00 98.3 51 18 142/43 100 Mechanical Ventilator 30 12/19/16 12:00 51 18 142/43 100 Mechanical Ventilator 30 12/19/16 11:14 59 16 30 12/19/16 11:00 43 18 138/42 100 Mechanical Ventilator 30 12/19/16 10:00 54 16 135/44 95 Mechanical Ventilator 30 12/19/16 09:18 57 140/39 12/19/16 09:05 57 16 30 12/19/16 09:00 52 15 140/39 97 Mechanical Ventilator 30 12/19/16 08:00 53 12/19/16 08:00 99.0 57 15 142/43 95 Mechanical Ventilator 30 12/19/16 08:00 30 12/19/16 07:00 54 20 154/41 100 Mechanical Ventilator 30 12/19/16 06:58 56 15 30 12/19/16 06:00 52 20 146/40 100 Mechanical Ventilator 40 12/19/16 05:00 51 14 40 12/19/16 05:00 99.0 50 20 154/41 100 Mechanical Ventilator 40 12/19/16 04:00 40 12/19/16 04:00 99.0 50 20 142/37 100 Mechanical Ventilator 40 12/19/16 04:00 54 12/19/16 03:14 76 21 40 12/19/16 03:00 50 16 143/38 100 Mechanical Ventilator 40 12/19/16 02:00 54 16 159/53 100 Mechanical Ventilator 40 12/19/16 01:28 85 26 40 12/19/16 01:00 61 16 157/40 100 Mechanical Ventilator 40 12/19/16 00:00 40 12/19/16 00:00 54 12/19/16 00:00 99.2 55 16 141/42 100 Mechanical Ventilator 40 12/18/16 23:18 70 15 40 12/18/16 23:00 62 16 156/46 100 Mechanical Ventilator 40 Intake and Output 12/18/16 12/19/16 19:00 07:00 Intake Total 1922.390 ml 1969.319 ml Output Total 180 ml 410 ml Balance 1742.390 ml 1559.319 ml IV Total 1872.390 ml 1969.319 ml Other 50 ml Output Urine Total 180 ml 410 ml # Bowel Movements 4 Laboratory Tests 12/19/16 02:50: White Blood Count 19.1H, Red Blood Count 2.91L, Hemoglobin 8.6L, Hematocrit 27.1L, Mean Corpuscular Volume 93, Mean Corpuscular Hemoglobin 29.5, Mean Corpuscular Hemoglobin Concent 31.8L, Red Cell Distribution Width 13.9, Platelet Count 169, Mean Platelet Volume 8.1, Neutrophils (%) (Auto) , Lymphocytes (%) (Auto) , Monocytes (%) (Auto) , Eosinophils (%) (Auto) , Basophils (%) (Auto) , Differential Total Cells Counted 100, Neutrophils % ( Manual) 86H, Lymphocytes % (Manual) 5L, Monocytes % (Manual) 1, Eosinophils % ( Manual) 0, Basophils % (Manual) 0, Band Neutrophils 8, Platelet Estimate Adequate, Platelet Morphology Normal, Red Blood Cell Morphology Normal, Activated Partial Thromboplast Time 61H, Sodium Level 137, Potassium Level 3.1L , Chloride Level 100, Carbon Dioxide Level 24, Anion Gap 13, Blood Urea Nitrogen 63H, Creatinine 2.2H, Estimat Glomerular Filtration Rate 22.0, Glucose Level 196H, Calcium Level 8.0L, Phosphorus Level 3.3, Magnesium Level 2.0, Total Bilirubin 0.5, Aspartate Amino Transf (AST/SGOT) 19, Alanine Aminotransferase (ALT/SGPT) 9, Alkaline Phosphatase 98, Total Protein 5.1L, Albumin 1.5L, Globulin 3.6, Albumin/Globulin Ratio 0.4L, Amylase Level 161H, Lipase 72H 12/19/16 03:00: Sodium Level 135, Potassium Level 3.4, Chloride Level 95L, Carbon Dioxide Level 20, Anion Gap 20H, Blood Urea Nitrogen 65H, Creatinine 2.3H, Estimat Glomerular Filtration Rate 21.0, Glucose Level 191H, Calcium Level 7.9L, Total Bilirubin 0.5, Aspartate Amino Transf (AST/SGOT) 37, Alanine Aminotransferase (ALT/SGPT) 9 , Alkaline Phosphatase 96, Total Protein 5.2L, Albumin 1.7L, Globulin 3.5, Albumin/Globulin Ratio 0.4L, Uric Acid 8.2H, Total Creatine Kinase 98, Thyroid Stimulating Hormone (TSH) 0.388, Free Thyroxine 0.89 12/19/16 06:49: Arterial Blood pH 7.390, Arterial Blood Partial Pressure CO2 43.5, Arterial Blood Partial Pressure O2 129.4H, Arterial Blood HCO3 25.7, Arterial Blood Oxygen Saturation 98.2H, Arterial Blood Base Excess 0.6, Ok Test Positive 12/19/16 09:45: Activated Partial Thromboplast Time 78H, Plasma/Serum Osmolality [Pending], Free Triiodothyronine [Pending], Cortisol [Pending] 12/19/16 10:00: Urine Color Pale yellow, Urine Appearance Slightly cloudy, Urine pH 5, Urine Specific [place] 1.015, Urine Protein Negative, Urine Glucose (UA) Negative, Urine Ketones Negative, Urine Occult Blood 1+H, Urine Nitrite Negative, Urine Bilirubin Negative, Urine Urobilinogen Normal, Urine Leukocyte Esterase Negative , Urine RBC 0-2, Urine WBC 0-2, Urine Squamous Epithelial Cells Few, Urine Bacteria Occasional, Urine Hyaline Casts 0-2H, Urine Fine Granular Casts 0-2H, Urine Eosinophils None seen Height (Feet): 5 Height (Inches): 1.00 Weight (Pounds): 145 Objective Elderly woman NCAT, intubated responsive supple CTA RRR Abd soft NT distended no edema MAXIME EVANS Dec 19, 2016 22:55
[2016-12-20] VITALS (24 sets, daily range): BP systolic 142–177; BP diastolic 43–59
[2016-12-20 05:02] LABS: BASOPHILS % (AUTO) 0.2 % (0.0-2.0); EOSINOPHILS % (AUTO) 1.7 % (0.0-3.0); MEAN CORPUSCULAR HEMOGLOBIN 30.4 PG (27.0-31.0); MEAN CORPUSCULAR HGB CONC 32.4 G/DL (32.0-36.0); MEAN CORPUSCULAR VOLUME 94 FL (80-99); MONOCYTES % (AUTO) 7.9 % (1.0-10.0); NEUTROPHILS % (AUTO) 84.1 % (45.0-75.0); PLATELET COUNT 194 K/UL (150-450); RED BLOOD COUNT 2.68 M/UL (4.20-5.40); RED CELL DISTRIBUTION WIDTH 13.6 % (11.6-14.8); WHITE BLOOD COUNT 13.9 K/UL (4.8-10.8)
[2016-12-20 05:12] LABS: ALBUMIN/GLOBULIN RATIO 0.4 (1.0-2.7); CALCIUM 7.7 mg/dL (8.6-10.2); CREATININE 1.8 mg/dL (0.5-0.9); GLOMERULAR FILTRATION RATE 27.8 mL/min (>60); PHOSPHORUS 5.2 mg/dL (2.5-4.8); POTASSIUM 3.3 mEQ/L (3.4-4.9); TOTAL PROTEIN 5.1 g/dL (6.6-8.7)
[2016-12-20] MEDS: Heparin 25,000u/D5W 500ml 500 ML IV SCH ×2 (05:12→21:26)
[2016-12-20 05:19] LABS: CRP QUANT 11.6 mg/dL (< 0.5); URIC ACID 8.7 mg/dL (3.0-7.5)
[2016-12-20] MEDS: NovoLOG Insulin Flexpen SUBQ SCH ×4 (06:05→23:54)
[2016-12-20] MEDS: Meropenem 500 MG in NS 55 ML IV SCH ×2 (06:07→18:05)
[2016-12-20] MEDS: SandoSTATIN 100mcg/ml amp SUBQ SCH ×3 (06:07→22:11)
[2016-12-20 08:19] LABS: CORTISOL LC 32.1 ug/dL (.); FREE TRIIODOTHYRONINE 1.7 pg/mL (2.0-4.4)
[2016-12-20 08:32] LABS: ABG ALLEN TEST POSITIVE; ABG BASE EXCESS 0; ABG PCO2 41.2 mmHg (35.0-45.0)
[2016-12-20] MEDS: Sucralfate 1gm tab ORAL SCH ×4 (09:12→21:00)
[2016-12-20] MEDS: Pantoprazole Inj IVP SCH (09:12)
--- NOTE | 2016-12-20 10:15 | Pulmonolgy Critical Care Note ---
Critical Care - Asmt/Plan Problems: (1) Respiratory failure requiring intubation (2) Sepsis (3) Pancreatitis (4) ATN (acute tubular necrosis) (5) Atrial fibrillation Respiratory: monitor respiratory rate, adjust FIO2, CXR Cardiac: continue to monitor HR/BP Renal: F/U I&O, check electrolytes Infectious Disease: check cultures, continue antibiotics Gastrointestinal: hold feedings, other - on TPN Hematologic: monitor H/H, transfuse if hgb<8.5 Neurologic: PRN Ativan, keep patient comfortable Affect: PRN ativan Prophylaxis: Protonix Disposition: keep in ICU Notes Reviewed: cardio, 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 with: nurses, consultants, case management 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 marketing manager - Objective Last 24 Hour Vital Signs Date Time Temp Pulse Resp B/P Pulse Ox O2 Delivery O2 Flow Rate FiO2 12/20/16 10:00 56 16 152/48 99 Mechanical Ventilator 30 12/20/16 09:12 60 159/44 12/20/16 09:11 55 16 30 12/20/16 09:00 60 15 159/44 98 Mechanical Ventilator 30 12/20/16 08:00 98.0 56 16 154/44 100 Mechanical Ventilator 30 12/20/16 08:00 30 12/20/16 08:00 52 12/20/16 07:00 52 15 147/47 99 Mechanical Ventilator 30 12/20/16 06:30 51 15 30 12/20/16 06:00 49 15 152/48 99 Mechanical Ventilator 30 12/20/16 05:30 47 15 30 12/20/16 05:00 47 15 152/49 99 Mechanical Ventilator 30 12/20/16 04:00 30 12/20/16 04:00 53 12/20/16 04:00 98.1 52 16 142/44 98 Mechanical Ventilator 30 12/20/16 03:30 58 18 30 12/20/16 03:00 54 16 144/45 98 Mechanical Ventilator 30 12/20/16 02:00 50 15 163/47 98 Mechanical Ventilator 30 12/20/16 01:21 52 15 30 12/20/16 01:00 50 12 154/57 98 Mechanical Ventilator 30 12/20/16 00:00 50 12/20/16 00:00 30 12/20/16 00:00 60 15 177/47 98 Mechanical Ventilator 30 12/19/16 23:30 50 15 30 12/19/16 23:00 98.0 50 16 149/55 98 Mechanical Ventilator 30 12/19/16 22:00 52 15 147/47 98 Mechanical Ventilator 30 12/19/16 21:30 49 15 30 12/19/16 21:00 61 15 155/50 98 Mechanical Ventilator 30 12/19/16 20:00 30 12/19/16 20:00 98.0 51 15 167/44 99 Mechanical Ventilator 30 12/19/16 20:00 49 12/19/16 19:30 54 16 30 12/19/16 19:00 54 15 158/42 99 Mechanical Ventilator 30 12/19/16 18:00 52 14 158/48 99 Mechanical Ventilator 30 12/19/16 18:00 54 16 158/49 99 Mechanical Ventilator 30 12/19/16 17:24 46 14 30 12/19/16 17:00 49 13 149/44 99 Mechanical Ventilator 30 12/19/16 16:00 98.7 42 15 148/49 99 Mechanical Ventilator 30 12/19/16 16:00 51 12/19/16 16:00 30 12/19/16 15:22 46 15 30 12/19/16 15:00 46 13 144/43 98 Mechanical Ventilator 30 12/19/16 14:00 48 15 146/45 99 Mechanical Ventilator 30 12/19/16 13:00 51 15 158/42 98 Mechanical Ventilator 30 12/19/16 12:55 50 15 30 12/19/16 12:00 51 12/19/16 12:00 30 12/19/16 12:00 98.3 51 18 142/43 100 Mechanical Ventilator 30 12/19/16 12:00 51 18 142/43 100 Mechanical Ventilator 30 12/19/16 11:14 59 16 30 12/19/16 11:00 43 18 138/42 100 Mechanical Ventilator 30 Status: sedated Condition: critical HEENT: atraumatic Neck: full ROM Lungs: chest wall tender Heart: HR/BP unstable, regular Abdomen: non-tender Extremities: no C/C/E, edema Decubiti: location, stage Micro: Microbiology Date/Time Source Procedure Growth Status 12/17/16 17:00 Blood Blood Culture - Preliminary NO GROWTH AFTER 48 HOURS Resulted 12/17/16 12:15 Blood Blood Culture - Preliminary NO GROWTH AFTER 48 HOURS Resulted 12/17/16 10:45 Sputum Gram Stain - Final Complete 12/17/16 10:45 Sputum Culture - Final Mandy Albicans Complete 12/18/16 05:00 Urine,Clean Catch Urine Culture - Final YEAST Complete Accucheck: 220 Critical Care - Subjective ROS Limited/Unobtainable: Yes ICU Day: 3 Intubation Day: 3 Condition: critical EKG Rhythm: Sinus Rhythm FI02: 30 Vent Support Breath Rate: 15 Vent Support Mode: AC Vent Tidal Volume: 600 Sputum Amount: Small PEEP: 5.0 PIP: 48 Fluids: tpn Drips: heparin drip I&O: Intake and Output 12/19/16 12/20/16 19:00 07:00 Intake Total 1039.390 ml 1813.250 ml Output Total 660 ml 525 ml Balance 379.390 ml 1288.250 ml IV Total 959.390 ml 1693.250 ml Other 80 ml 120 ml Output Urine Total 660 ml 525 ml # Bowel Movements 1 CXR: improved edema ET-Tube: 7.5 ET Position: 22 Labs: Laboratory Tests Test 12/20/16 04:15 12/20/16 07:15 12/20/16 07:30 12/20/16 08:23 White Blood Count 13.9 K/UL (4.8-10.8) H Red Blood Count 2.68 M/UL (4.20-5.40) L Hemoglobin 8.1 G/DL (12.0-16.0) L Hematocrit 25.1 % (37.0-47.0) L Mean Corpuscular Volume 94 FL (80-99) Mean Corpuscular Hemoglobin 30.4 PG (27.0-31.0) Mean Corpuscular Hemoglobin Concent 32.4 G/DL (32.0-36.0) Red Cell Distribution Width 13.6 % (11.6-14.8) Platelet Count 194 K/UL (150-450) Mean Platelet Volume 9.0 FL (6.5-10.1) Neutrophils (%) (Auto) 84.1 % (45.0-75.0) H Lymphocytes (%) (Auto) 6.0 % (20.0-45.0) L Monocytes (%) (Auto) 7.9 % (1.0-10.0) Eosinophils (%) (Auto) 1.7 % (0.0-3.0) Basophils (%) (Auto) 0.2 % (0.0-2.0) Sodium Level 138 mEQ/L (135-145) Potassium Level 3.3 mEQ/L (3.4-4.9) L Chloride Level 99 mEQ/L (98-107) Carbon Dioxide Level 25 mEQ/L (20-30) Anion Gap 14 (5-15) Blood Urea Nitrogen 70 mg/dL (7-23) H Creatinine 1.8 mg/dL (0.5-0.9) H Estimat Glomerular Filtration Rate 27.8 mL/min (>60) Glucose Level 210 mg/dL (74-106) H Uric Acid 8.7 mg/dL (3.0-7.5) H Calcium Level 7.7 mg/dL (8.6-10.2) L Phosphorus Level 5.2 mg/dL (2.5-4.8) H Magnesium Level 2.0 mg/dL (1.7-2.5) Total Bilirubin 0.6 mg/dL (0.0-1.2) Gamma Glutamyl Transpeptidase 71 U/L (5-36) H Aspartate Amino Transf (AST/SGOT) 16 U/L (5-40) Alanine Aminotransferase (ALT/SGPT) 8 U/L (3-33) Alkaline Phosphatase 80 U/L (35-104) C-Reactive Protein, Quantitative 11.6 mg/dL (< 0.5) H Pro-B-Type Natriuretic Peptide 3706 pg/mL (0-125) H Total Protein 5.1 g/dL (6.6-8.7) L Albumin 1.5 g/dL (3.5-5.2) L Globulin 3.6 g/dL Albumin/Globulin Ratio 0.4 (1.0-2.7) L Lipase 76 U/L (< 60) H Activated Partial Thromboplast Time 67 SEC (23-33) H Urine Osmolality Pending Urine Random Sodium 10 mmol/L Urine Random Chloride 21 mmol/L Urine Potassium Timed 23 mmol/L Arterial Blood pH 7.398 (7.350-7.450) Arterial Blood Partial Pressure CO2 41.2 mmHg (35.0-45.0) Arterial Blood Partial Pressure O2 97.2 mmHg (75.0-100.0) Arterial Blood HCO3 24.8 mmol/L (22.0-26.0) Arterial Blood Oxygen Saturation 96.2 % (92.0-98.0) Arterial Blood Base Excess 0 Ok Test Positive TONY BRIDEGS Dec 20, 2016 10:15
--- NOTE | 2016-12-20 10:43 | Diagnostic Imaging Report ---
Indication: DYSPNEA Technique: One view of the chest Comparison: 12/19/2016 Findings: The heart is enlarged. Again demonstrated is diffuse bilateral interstitial disease, which, allowing for technique differences, is likely unchanged from the prior study. Tube and line positions are unchanged. But somewhat low position of the PICC, deep within the right atrium. Again demonstrated is evidence of prior median sternotomy with multiple cardiac valve repairs Impression: Unchanged, over one day, findings as above. Low position of PICC. This will be adjusted
--- NOTE | 2016-12-20 12:08 | General Surgery Progress Note ---
General Surgery-Progress Note Subjective Chief Complaint: very little response, family at bedside. Not tolerating weaning thus far, Objective Last 24 Hour Vital Signs Date Time Temp Pulse Resp B/P Pulse Ox O2 Delivery O2 Flow Rate FiO2 12/20/16 11:41 30 12/20/16 11:30 59 16 30 12/20/16 11:04 30 12/20/16 11:00 57 16 160/59 99 Mechanical Ventilator 30 12/20/16 11:00 60 21 30 12/20/16 10:00 56 16 152/48 99 Mechanical Ventilator 30 12/20/16 09:12 60 159/44 12/20/16 09:11 55 16 30 12/20/16 09:00 60 15 159/44 98 Mechanical Ventilator 30 12/20/16 08:00 98.0 56 16 154/44 100 Mechanical Ventilator 30 12/20/16 08:00 30 12/20/16 08:00 52 12/20/16 07:00 52 15 147/47 99 Mechanical Ventilator 30 12/20/16 06:30 51 15 30 12/20/16 06:00 49 15 152/48 99 Mechanical Ventilator 30 12/20/16 05:30 47 15 30 12/20/16 05:00 47 15 152/49 99 Mechanical Ventilator 30 12/20/16 04:00 30 12/20/16 04:00 53 12/20/16 04:00 98.1 52 16 142/44 98 Mechanical Ventilator 30 12/20/16 03:30 58 18 30 12/20/16 03:00 54 16 144/45 98 Mechanical Ventilator 30 12/20/16 02:00 50 15 163/47 98 Mechanical Ventilator 30 12/20/16 01:21 52 15 30 12/20/16 01:00 50 12 154/57 98 Mechanical Ventilator 30 12/20/16 00:00 50 12/20/16 00:00 30 12/20/16 00:00 60 15 177/47 98 Mechanical Ventilator 30 12/19/16 23:30 50 15 30 12/19/16 23:00 98.0 50 16 149/55 98 Mechanical Ventilator 30 12/19/16 22:00 52 15 147/47 98 Mechanical Ventilator 30 12/19/16 21:30 49 15 30 12/19/16 21:00 61 15 155/50 98 Mechanical Ventilator 30 12/19/16 20:00 30 12/19/16 20:00 98.0 51 15 167/44 99 Mechanical Ventilator 30 12/19/16 20:00 49 12/19/16 19:30 54 16 30 12/19/16 19:00 54 15 158/42 99 Mechanical Ventilator 30 12/19/16 18:00 52 14 158/48 99 Mechanical Ventilator 30 12/19/16 18:00 54 16 158/49 99 Mechanical Ventilator 30 12/19/16 17:24 46 14 30 12/19/16 17:00 49 13 149/44 99 Mechanical Ventilator 30 12/19/16 16:00 98.7 42 15 148/49 99 Mechanical Ventilator 30 12/19/16 16:00 51 12/19/16 16:00 30 12/19/16 15:22 46 15 30 12/19/16 15:00 46 13 144/43 98 Mechanical Ventilator 30 12/19/16 14:00 48 15 146/45 99 Mechanical Ventilator 30 12/19/16 13:00 51 15 158/42 98 Mechanical Ventilator 30 12/19/16 12:55 50 15 30 I&O Intake and Output 12/19/16 12/20/16 19:00 07:00 Intake Total 1039.390 ml 1813.250 ml Output Total 660 ml 525 ml Balance 379.390 ml 1288.250 ml IV Total 959.390 ml 1693.250 ml Other 80 ml 120 ml Output Urine Total 660 ml 525 ml # Bowel Movements 1 Cardiovascular: RSR Respiratory: clear Abdomen: distended - 3+, ?severity of tenderness difficult to evaluate, somewhat obtunded. Extremities: edema Laboratory Tests Test 12/20/16 04:15 12/20/16 07:15 12/20/16 07:30 12/20/16 08:23 White Blood Count 13.9 K/UL (4.8-10.8) H Red Blood Count 2.68 M/UL (4.20-5.40) L Hemoglobin 8.1 G/DL (12.0-16.0) L Hematocrit 25.1 % (37.0-47.0) L Mean Corpuscular Volume 94 FL (80-99) Mean Corpuscular Hemoglobin 30.4 PG (27.0-31.0) Mean Corpuscular Hemoglobin Concent 32.4 G/DL (32.0-36.0) Red Cell Distribution Width 13.6 % (11.6-14.8) Platelet Count 194 K/UL (150-450) Mean Platelet Volume 9.0 FL (6.5-10.1) Neutrophils (%) (Auto) 84.1 % (45.0-75.0) H Lymphocytes (%) (Auto) 6.0 % (20.0-45.0) L Monocytes (%) (Auto) 7.9 % (1.0-10.0) Eosinophils (%) (Auto) 1.7 % (0.0-3.0) Basophils (%) (Auto) 0.2 % (0.0-2.0) Sodium Level 138 mEQ/L (135-145) Potassium Level 3.3 mEQ/L (3.4-4.9) L Chloride Level 99 mEQ/L (98-107) Carbon Dioxide Level 25 mEQ/L (20-30) Anion Gap 14 (5-15) Blood Urea Nitrogen 70 mg/dL (7-23) H Creatinine 1.8 mg/dL (0.5-0.9) H Estimat Glomerular Filtration Rate 27.8 mL/min (>60) Glucose Level 210 mg/dL (74-106) H Uric Acid 8.7 mg/dL (3.0-7.5) H Calcium Level 7.7 mg/dL (8.6-10.2) L Phosphorus Level 5.2 mg/dL (2.5-4.8) H Magnesium Level 2.0 mg/dL (1.7-2.5) Total Bilirubin 0.6 mg/dL (0.0-1.2) Gamma Glutamyl Transpeptidase 71 U/L (5-36) H Aspartate Amino Transf (AST/SGOT) 16 U/L (5-40) Alanine Aminotransferase (ALT/SGPT) 8 U/L (3-33) Alkaline Phosphatase 80 U/L (35-104) C-Reactive Protein, Quantitative 11.6 mg/dL (< 0.5) H Pro-B-Type Natriuretic Peptide 3706 pg/mL (0-125) H Total Protein 5.1 g/dL (6.6-8.7) L Albumin 1.5 g/dL (3.5-5.2) L Globulin 3.6 g/dL Albumin/Globulin Ratio 0.4 (1.0-2.7) L Lipase 76 U/L (< 60) H Activated Partial Thromboplast Time 67 SEC (23-33) H Urine Osmolality Pending Urine Random Sodium 10 mmol/L Urine Random Chloride 21 mmol/L Urine Potassium Timed 23 mmol/L Arterial Blood pH 7.398 (7.350-7.450) Arterial Blood Partial Pressure CO2 41.2 mmHg (35.0-45.0) Arterial Blood Partial Pressure O2 97.2 mmHg (75.0-100.0) Arterial Blood HCO3 24.8 mmol/L (22.0-26.0) Arterial Blood Oxygen Saturation 96.2 % (92.0-98.0) Arterial Blood Base Excess 0 Ok Test Positive Additional Comments Severe gallstone pancreatitis, not resolving rapidly enough. Should be able to tolerate feeds per NG. Assessment Additional Comments Continue current Tx, ?feeds? SHANICE CALABRESE Dec 20, 2016 12:08
[2016-12-20] MEDS: Morphine Sulfate 4mg/ml Inj IVP PRN (13:21)
--- NOTE | 2016-12-20 14:22 | Diagnostic Imaging Report ---
Indication: Status post PICC line repositioning Technique: One view of the chest Comparison: 4 hours earlier Findings: Interim retraction of PICC, tip now positioned at or just below the cavoatrial junction, in satisfactory position. Cardiomegaly, bilateral interstitial and alveolar disease persists. Other tube and line positions remain stable. Impression: Improved and now satisfactory position of PICC, post readjustment Other stable findings as described
--- NOTE | 2016-12-20 15:54 | General Progress Note ---
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 on anticoagulation Pulmonary HTN HypoAlbuminemia Plan: Per GI / Surgery On TPN Keep BP under control Avoid nephrotoxics K supplement as needed monitor renal parameters Subjective ROS Limited/Unobtainable: Yes Allergies: Coded Allergies: No Known Allergies (Unverified , 09/28/14) Objective Last 24 Hour Vital Signs Date Time Temp Pulse Resp B/P Pulse Ox O2 Delivery O2 Flow Rate FiO2 12/20/16 15:00 55 20 147/57 97 Mechanical Ventilator 30 12/20/16 14:00 61 19 154/53 97 Mechanical Ventilator 30 12/20/16 13:51 98.2 12/20/16 13:11 60 16 30 12/20/16 13:00 55 20 165/45 99 Mechanical Ventilator 30 12/20/16 12:12 30 12/20/16 12:00 90 12/20/16 12:00 98.2 68 22 155/52 97 Mechanical Ventilator 30 12/20/16 11:41 30 12/20/16 11:30 59 16 30 12/20/16 11:04 30 12/20/16 11:00 57 16 160/59 99 Mechanical Ventilator 30 12/20/16 11:00 60 21 30 12/20/16 10:00 56 16 152/48 99 Mechanical Ventilator 30 12/20/16 09:12 60 159/44 12/20/16 09:11 55 16 30 12/20/16 09:00 60 15 159/44 98 Mechanical Ventilator 30 12/20/16 08:00 98.0 56 16 154/44 100 Mechanical Ventilator 30 12/20/16 08:00 30 12/20/16 08:00 52 12/20/16 07:00 52 15 147/47 99 Mechanical Ventilator 30 12/20/16 06:30 51 15 30 12/20/16 06:00 49 15 152/48 99 Mechanical Ventilator 30 12/20/16 05:30 47 15 30 12/20/16 05:00 47 15 152/49 99 Mechanical Ventilator 30 12/20/16 04:00 30 12/20/16 04:00 53 12/20/16 04:00 98.1 52 16 142/44 98 Mechanical Ventilator 30 12/20/16 03:30 58 18 30 12/20/16 03:00 54 16 144/45 98 Mechanical Ventilator 30 12/20/16 02:00 50 15 163/47 98 Mechanical Ventilator 30 12/20/16 01:21 52 15 30 12/20/16 01:00 50 12 154/57 98 Mechanical Ventilator 30 12/20/16 00:00 50 12/20/16 00:00 30 12/20/16 00:00 60 15 177/47 98 Mechanical Ventilator 30 12/19/16 23:30 50 15 30 12/19/16 23:00 98.0 50 16 149/55 98 Mechanical Ventilator 30 12/19/16 22:00 52 15 147/47 98 Mechanical Ventilator 30 12/19/16 21:30 49 15 30 12/19/16 21:00 61 15 155/50 98 Mechanical Ventilator 30 12/19/16 20:00 30 12/19/16 20:00 98.0 51 15 167/44 99 Mechanical Ventilator 30 12/19/16 20:00 49 12/19/16 19:30 54 16 30 12/19/16 19:00 54 15 158/42 99 Mechanical Ventilator 30 12/19/16 18:00 52 14 158/48 99 Mechanical Ventilator 30 12/19/16 18:00 54 16 158/49 99 Mechanical Ventilator 30 12/19/16 17:24 46 14 30 12/19/16 17:00 49 13 149/44 99 Mechanical Ventilator 30 12/19/16 16:00 98.7 42 15 148/49 99 Mechanical Ventilator 30 12/19/16 16:00 51 12/19/16 16:00 30 Intake and Output 12/19/16 12/20/16 19:00 07:00 Intake Total 1039.390 ml 1813.250 ml Output Total 660 ml 525 ml Balance 379.390 ml 1288.250 ml IV Total 959.390 ml 1693.250 ml Other 80 ml 120 ml Output Urine Total 660 ml 525 ml # Bowel Movements 1 Laboratory Tests 12/20/16 04:15: White Blood Count 13.9H, Red Blood Count 2.68L, Hemoglobin 8.1L, Hematocrit 25.1L, Mean Corpuscular Volume 94, Mean Corpuscular Hemoglobin 30.4, Mean Corpuscular Hemoglobin Concent 32.4, Red Cell Distribution Width 13.6, Platelet Count 194, Mean Platelet Volume 9.0, Neutrophils (%) (Auto) 84.1H, Lymphocytes ( %) (Auto) 6.0L, Monocytes (%) (Auto) 7.9, Eosinophils (%) (Auto) 1.7, Basophils (%) (Auto) 0.2, Sodium Level 138, Potassium Level 3.3L, Chloride Level 99, Carbon Dioxide Level 25, Anion Gap 14, Blood Urea Nitrogen 70H, Creatinine 1.8H , Estimat Glomerular Filtration Rate 27.8, Glucose Level 210H, Uric Acid 8.7H, Calcium Level 7.7L, Phosphorus Level 5.2H, Magnesium Level 2.0, Total Bilirubin 0.6, Gamma Glutamyl Transpeptidase 71H, Aspartate Amino Transf (AST/SGOT) 16, Alanine Aminotransferase (ALT/SGPT) 8, Alkaline Phosphatase 80, C-Reactive Protein, Quantitative 11.6H, Pro-B-Type Natriuretic Peptide 3706H, Total Protein 5.1L, Albumin 1.5L, Globulin 3.6, Albumin/Globulin Ratio 0.4L, Lipase 76H 12/20/16 07:15: Activated Partial Thromboplast Time 67H 12/20/16 07:30: Urine Osmolality [Pending], Urine Random Sodium 10, Urine Random Chloride 21, Urine Potassium Timed 23 12/20/16 08:23: Arterial Blood pH 7.398, Arterial Blood Partial Pressure CO2 41.2, Arterial Blood Partial Pressure O2 97.2, Arterial Blood HCO3 24.8, Arterial Blood Oxygen Saturation 96.2, Arterial Blood Base Excess 0, Ok Test Positive Height (Feet): 5 Height (Inches): 1.00 Weight (Pounds): 145 General Appearance: other - intubated Cardiovascular: normal rate Respiratory/Chest: decreased breath sounds Abdomen: soft Objective other PE not changed KAMINI SNOW Dec 20, 2016 15:54
--- NOTE | 2016-12-20 16:01 | Infectious Diseases Prog Note ---
Assessment/Plan Assessment/Plan ASSESSMENT: Pancreatitis recurrent CT: Findings compatible with marked worsening of acute pancreatitis MRCP : Cholelithiasis. There is also a calculus within the duct adjacent to the gallbladder Pancreatic Enzymes improving Leukocytosis ( SIRS ) improving cholelithiasis : US of liver : Incidental finding of cholelithiasis and mild gallbladder wall thickening positive sonographic Diaz's sign LFT : Nl UTI : Mandy SCx : Mandy ( colonizer ) VDRF: Cxray : Increase in bilateral congestive changes with persistent small right , probable new left pleural effusions ARF SP aortic stenosis mitral stenosis status post mitral valve replacement AFib Pulmonary hypertension PLAN: - cont Merrem d# ,and Diflucan d# - monitor CBC, temperatures, - Monitor culture ( BL) - monitor LFT - GI f/u - Sx is following for possible Cholecystectomy later - VDRF - amylase , Lipase Subjective Constitutional: Denies: anorexia, chills, drenching sweats, fatigue, fever, no symptoms, other Allergies: Coded Allergies: No Known Allergies (Unverified , 09/28/14) Subjective on vent Objective Vital Signs Last 24 Hour Vital Signs Date Time Temp Pulse Resp B/P Pulse Ox O2 Delivery O2 Flow Rate FiO2 12/20/16 15:46 58 16 30 12/20/16 15:00 55 20 147/57 97 Mechanical Ventilator 30 12/20/16 14:00 61 19 154/53 97 Mechanical Ventilator 30 12/20/16 13:51 98.2 12/20/16 13:11 60 16 30 12/20/16 13:00 55 20 165/45 99 Mechanical Ventilator 30 12/20/16 12:12 30 12/20/16 12:00 90 12/20/16 12:00 98.2 68 22 155/52 97 Mechanical Ventilator 30 12/20/16 11:41 30 12/20/16 11:30 59 16 30 12/20/16 11:04 30 12/20/16 11:00 57 16 160/59 99 Mechanical Ventilator 30 12/20/16 11:00 60 21 30 12/20/16 10:00 56 16 152/48 99 Mechanical Ventilator 30 12/20/16 09:12 60 159/44 12/20/16 09:11 55 16 30 12/20/16 09:00 60 15 159/44 98 Mechanical Ventilator 30 12/20/16 08:00 98.0 56 16 154/44 100 Mechanical Ventilator 30 12/20/16 08:00 30 12/20/16 08:00 52 12/20/16 07:00 52 15 147/47 99 Mechanical Ventilator 30 12/20/16 06:30 51 15 30 12/20/16 06:00 49 15 152/48 99 Mechanical Ventilator 30 12/20/16 05:30 47 15 30 12/20/16 05:00 47 15 152/49 99 Mechanical Ventilator 30 12/20/16 04:00 30 12/20/16 04:00 53 12/20/16 04:00 98.1 52 16 142/44 98 Mechanical Ventilator 30 12/20/16 03:30 58 18 30 12/20/16 03:00 54 16 144/45 98 Mechanical Ventilator 30 12/20/16 02:00 50 15 163/47 98 Mechanical Ventilator 30 12/20/16 01:21 52 15 30 12/20/16 01:00 50 12 154/57 98 Mechanical Ventilator 30 12/20/16 00:00 50 12/20/16 00:00 30 12/20/16 00:00 60 15 177/47 98 Mechanical Ventilator 30 12/19/16 23:30 50 15 30 12/19/16 23:00 98.0 50 16 149/55 98 Mechanical Ventilator 30 12/19/16 22:00 52 15 147/47 98 Mechanical Ventilator 30 12/19/16 21:30 49 15 30 12/19/16 21:00 61 15 155/50 98 Mechanical Ventilator 30 12/19/16 20:00 30 12/19/16 20:00 98.0 51 15 167/44 99 Mechanical Ventilator 30 12/19/16 20:00 49 12/19/16 19:30 54 16 30 12/19/16 19:00 54 15 158/42 99 Mechanical Ventilator 30 12/19/16 18:00 52 14 158/48 99 Mechanical Ventilator 30 12/19/16 18:00 54 16 158/49 99 Mechanical Ventilator 30 12/19/16 17:24 46 14 30 12/19/16 17:00 49 13 149/44 99 Mechanical Ventilator 30 12/19/16 16:00 98.7 42 15 148/49 99 Mechanical Ventilator 30 12/19/16 16:00 51 12/19/16 16:00 30 Height (Feet): 5 Height (Inches): 1.00 Weight (Pounds): 145 HEENT: atraumatic Respiratory/Chest: lungs clear, normal breath sounds Cardiovascular: normal rate, regular rhythm Abdomen: soft, non tender, no organomegaly Microbiology Date/Time Source Procedure Growth Status 12/17/16 17:00 Blood Blood Culture - Preliminary NO GROWTH AFTER 48 HOURS Resulted 12/18/16 05:00 Urine,Clean Catch Urine Culture - Final YEAST Complete Laboratory Tests Test 12/20/16 04:15 12/20/16 07:15 12/20/16 07:30 12/20/16 08:23 White Blood Count 13.9 K/UL (4.8-10.8) H Red Blood Count 2.68 M/UL (4.20-5.40) L Hemoglobin 8.1 G/DL (12.0-16.0) L Hematocrit 25.1 % (37.0-47.0) L Mean Corpuscular Volume 94 FL (80-99) Mean Corpuscular Hemoglobin 30.4 PG (27.0-31.0) Mean Corpuscular Hemoglobin Concent 32.4 G/DL (32.0-36.0) Red Cell Distribution Width 13.6 % (11.6-14.8) Platelet Count 194 K/UL (150-450) Mean Platelet Volume 9.0 FL (6.5-10.1) Neutrophils (%) (Auto) 84.1 % (45.0-75.0) H Lymphocytes (%) (Auto) 6.0 % (20.0-45.0) L Monocytes (%) (Auto) 7.9 % (1.0-10.0) Eosinophils (%) (Auto) 1.7 % (0.0-3.0) Basophils (%) (Auto) 0.2 % (0.0-2.0) Sodium Level 138 mEQ/L (135-145) Potassium Level 3.3 mEQ/L (3.4-4.9) L Chloride Level 99 mEQ/L (98-107) Carbon Dioxide Level 25 mEQ/L (20-30) Anion Gap 14 (5-15) Blood Urea Nitrogen 70 mg/dL (7-23) H Creatinine 1.8 mg/dL (0.5-0.9) H Estimat Glomerular Filtration Rate 27.8 mL/min (>60) Glucose Level 210 mg/dL (74-106) H Uric Acid 8.7 mg/dL (3.0-7.5) H Calcium Level 7.7 mg/dL (8.6-10.2) L Phosphorus Level 5.2 mg/dL (2.5-4.8) H Magnesium Level 2.0 mg/dL (1.7-2.5) Total Bilirubin 0.6 mg/dL (0.0-1.2) Gamma Glutamyl Transpeptidase 71 U/L (5-36) H Aspartate Amino Transf (AST/SGOT) 16 U/L (5-40) Alanine Aminotransferase (ALT/SGPT) 8 U/L (3-33) Alkaline Phosphatase 80 U/L (35-104) C-Reactive Protein, Quantitative 11.6 mg/dL (< 0.5) H Pro-B-Type Natriuretic Peptide 3706 pg/mL (0-125) H Total Protein 5.1 g/dL (6.6-8.7) L Albumin 1.5 g/dL (3.5-5.2) L Globulin 3.6 g/dL Albumin/Globulin Ratio 0.4 (1.0-2.7) L Lipase 76 U/L (< 60) H Activated Partial Thromboplast Time 67 SEC (23-33) H Urine Osmolality Pending Urine Random Sodium 10 mmol/L Urine Random Chloride 21 mmol/L Urine Potassium Timed 23 mmol/L Arterial Blood pH 7.398 (7.350-7.450) Arterial Blood Partial Pressure CO2 41.2 mmHg (35.0-45.0) Arterial Blood Partial Pressure O2 97.2 mmHg (75.0-100.0) Arterial Blood HCO3 24.8 mmol/L (22.0-26.0) Arterial Blood Oxygen Saturation 96.2 % (92.0-98.0) Arterial Blood Base Excess 0 Ok Test Positive Current Medications Medications (Trade) Dose Ordered Sig/Lisbeth Route PRN Reason Start Time Stop Time Status Last Admin Dose Admin Acetaminophen (Tylenol) 650 mg Q4H PRN ORAL fever 12/17/16 08:00 01/16/17 07:59 12/17/16 19:55 Amlodipine Besylate 2.5 mg 2.5 mg DAILY ORAL 12/18/16 09:00 01/17/17 08:59 12/20/16 09:12 Dextrose (D10w) 1,000 ml @ 80 mls/hr [id number] PRN IV If TPN interrupted 12/17/16 07:30 01/16/17 07:29 Dextrose (Dextrose 50%) STAT PRN IV Hypoglycemia 12/17/16 07:30 01/16/17 07:29 Fat Emulsion Intravenous 240 ml/Amino Acids/ Electrolytes/ Dextrose 2,232 ml @ 93 mls/hr Q24H IV 12/19/16 21:00 12/20/16 20:59 12/19/16 21:17 Fat Emulsion Intravenous 240 ml/Amino Acids/ Electrolytes/ Dextrose 2,232 ml @ 93 mls/hr Q24H IV 12/20/16 21:00 01/19/17 20:59 Fluconazole/ Sodium Chloride 100 ml @ 100 mls/hr Q24H IV 12/19/16 23:00 12/26/16 22:59 12/19/16 23:04 Heparin Sodium/ Dextrose (Heparin) 500 ml @ 28.939 mls/ hr adjust per protocol IV 12/19/16 03:58 01/17/17 12:29 12/20/16 05:12 Insulin Aspart (NovoLOG) No Dose Q6HR SUBQ 12/17/16 12:00 01/16/17 11:59 12/20/16 12:12 Meropenem 500 mg/ Sodium Chloride 55 ml @ 110 mls/hr Q12HR@0600,1800 IV 12/19/16 18:00 12/24/16 17:59 12/20/16 06:07 Morphine Sulfate (Morphine Sulfate) 4 mg Q4H PRN IVP Severe Pain (Pain Scale 7-10) 12/19/16 10:30 12/24/16 07:29 12/20/16 13:21 Nitroglycerin (Ntg) 0.4 mg Q5M X 3 DOSES PRN SL Prn Chest Pain 12/17/16 07:30 01/16/17 07:29 Octreotide Acetate (SandoSTATIN) 100 mcg Q8HR SUBQ 12/17/16 20:00 01/16/17 19:59 12/20/16 12:40 Ondansetron HCl (Zofran) 4 mg Q6H PRN IVP Nausea & Vomiting 12/17/16 07:30 01/16/17 07:29 Pantoprazole 40 mg 40 mg DAILY IVP 12/20/16 09:00 01/19/17 08:59 12/20/16 09:12 Phytonadione (Vitamin K) 10 mg QWEEK SUBQ 12/23/16 21:00 01/22/17 20:59 Polyethylene Glycol (Miralax) 17 gm HSPRN PRN ORAL Constipation 12/17/16 07:30 01/16/17 07:29 Potassium Chloride (KCl 20mEq/100ml Premix) 100 ml @ 50 mls/hr ONCE ONCE IVPB 12/20/16 16:00 12/20/16 17:59 Sucralfate (Carafate) 1 gm FOUR TIMES A DAY ORAL 12/17/16 09:00 01/16/17 08:59 12/20/16 12:39 Temazepam (Restoril) 15 mg HSPRN PRN ORAL Insomnia 12/17/16 07:30 12/24/16 07:29 12/20/16 03:30 OSCAR ANDERSON M.D. Dec 20, 2016 16:01
--- NOTE | 2016-12-20 17:18 | Diagnostic Imaging Report ---
Indication: Abnormal renal function tests Technique: Grayscale and duplex images of the kidneys, retroperitoneum, and bladder were obtained. Comparison:12/10/2016 Findings: Right kidney measures 12 cm in length. Left kidney measures 1.5 cm in length. Both kidneys demonstrate normal echogenicity. No hydronephrosis. There is a non-shadowing echogenic focus in the left kidney which may represent calcification. There is ascites fluid which appears slightly more abundant than on the prior study.. Normal inferior vena cava. Bladder is normal. Impression: Negative for hydronephrosis Left renal sinus echogenic focus, suspect artifactual as calculi are not evident on CT scan of 3 days earlier Ascites fluid, small but slightly more abundant than on previous exam.
--- NOTE | 2016-12-20 20:22 | Cardiology Progress Note ---
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 on anticoagulation perm afib on anticoagualtion with couamdin coagulaopathy now elevated dueot med interaction adn disease process leukocytosis ARF note no surgery planned diurtics once cr improved she si thrid spacing alto due to pancreatitis gettign tpn ct result noted d/w rn jemima will decreae bb for now cr declining seem over all better more responsive and communic ative is on iv heparin Subjective Cardiovascular: Denies: chest pain, irregular heart rate, lightheadedness Respiratory: Denies: shortness of breath Gastrointestinal/Abdominal: Denies: abdominal pain Genitourinary: Denies: burning Subjective on the vent Objective Last 24 Hour Vital Signs Date Time Temp Pulse Resp B/P Pulse Ox O2 Delivery O2 Flow Rate FiO2 12/20/16 20:00 30 12/20/16 19:00 50 16 161/50 100 Mechanical Ventilator 30 12/20/16 19:00 48 15 30 12/20/16 18:00 52 15 157/52 97 Mechanical Ventilator 30 12/20/16 17:00 54 19 147/43 97 Mechanical Ventilator 30 12/20/16 16:44 51 15 30 12/20/16 16:00 98.1 46 17 143/51 98 Mechanical Ventilator 30 12/20/16 16:00 55 12/20/16 15:46 58 16 30 12/20/16 15:00 55 20 147/57 97 Mechanical Ventilator 30 12/20/16 14:00 61 19 154/53 97 Mechanical Ventilator 30 12/20/16 13:51 98.2 12/20/16 13:11 60 16 30 12/20/16 13:00 55 20 165/45 99 Mechanical Ventilator 30 12/20/16 12:12 30 12/20/16 12:00 90 12/20/16 12:00 98.2 68 22 155/52 97 Mechanical Ventilator 30 12/20/16 11:41 30 12/20/16 11:30 59 16 30 12/20/16 11:04 30 12/20/16 11:00 57 16 160/59 99 Mechanical Ventilator 30 12/20/16 11:00 60 21 30 12/20/16 10:00 56 16 152/48 99 Mechanical Ventilator 30 12/20/16 09:12 60 159/44 12/20/16 09:11 55 16 30 12/20/16 09:00 60 15 159/44 98 Mechanical Ventilator 30 12/20/16 08:00 98.0 56 16 154/44 100 Mechanical Ventilator 30 12/20/16 08:00 30 12/20/16 08:00 52 12/20/16 07:00 52 15 147/47 99 Mechanical Ventilator 30 12/20/16 06:30 51 15 30 12/20/16 06:00 49 15 152/48 99 Mechanical Ventilator 30 12/20/16 05:30 47 15 30 12/20/16 05:00 47 15 152/49 99 Mechanical Ventilator 30 12/20/16 04:00 30 12/20/16 04:00 53 12/20/16 04:00 98.1 52 16 142/44 98 Mechanical Ventilator 30 12/20/16 03:30 58 18 30 12/20/16 03:00 54 16 144/45 98 Mechanical Ventilator 30 12/20/16 02:00 50 15 163/47 98 Mechanical Ventilator 30 12/20/16 01:21 52 15 30 12/20/16 01:00 50 12 154/57 98 Mechanical Ventilator 30 12/20/16 00:00 50 12/20/16 00:00 30 12/20/16 00:00 60 15 177/47 98 Mechanical Ventilator 30 12/19/16 23:30 50 15 30 12/19/16 23:00 98.0 50 16 149/55 98 Mechanical Ventilator 30 12/19/16 22:00 52 15 147/47 98 Mechanical Ventilator 30 12/19/16 21:30 49 15 30 12/19/16 21:00 61 15 155/50 98 Mechanical Ventilator 30 General Appearance: alert, on vent Neck: normal alignment, supple Cardiovascular: normal rate Respiratory/Chest: rhonchi - bilaterally Abdomen: normal bowel sounds, non tender, soft Extremities: moderate edema Intake and Output 12/19/16 12/20/16 19:00 07:00 Intake Total 1039.390 ml 1813.250 ml Output Total 660 ml 525 ml Balance 379.390 ml 1288.250 ml IV Total 959.390 ml 1693.250 ml Other 80 ml 120 ml Output Urine Total 660 ml 525 ml # Bowel Movements 1 Laboratory Tests Test 12/20/16 04:15 12/20/16 07:15 12/20/16 07:30 12/20/16 08:23 White Blood Count 13.9 K/UL (4.8-10.8) H Red Blood Count 2.68 M/UL (4.20-5.40) L Hemoglobin 8.1 G/DL (12.0-16.0) L Hematocrit 25.1 % (37.0-47.0) L Mean Corpuscular Volume 94 FL (80-99) Mean Corpuscular Hemoglobin 30.4 PG (27.0-31.0) Mean Corpuscular Hemoglobin Concent 32.4 G/DL (32.0-36.0) Red Cell Distribution Width 13.6 % (11.6-14.8) Platelet Count 194 K/UL (150-450) Mean Platelet Volume 9.0 FL (6.5-10.1) Neutrophils (%) (Auto) 84.1 % (45.0-75.0) H Lymphocytes (%) (Auto) 6.0 % (20.0-45.0) L Monocytes (%) (Auto) 7.9 % (1.0-10.0) Eosinophils (%) (Auto) 1.7 % (0.0-3.0) Basophils (%) (Auto) 0.2 % (0.0-2.0) Sodium Level 138 mEQ/L (135-145) Potassium Level 3.3 mEQ/L (3.4-4.9) L Chloride Level 99 mEQ/L (98-107) Carbon Dioxide Level 25 mEQ/L (20-30) Anion Gap 14 (5-15) Blood Urea Nitrogen 70 mg/dL (7-23) H Creatinine 1.8 mg/dL (0.5-0.9) H Estimat Glomerular Filtration Rate 27.8 mL/min (>60) Glucose Level 210 mg/dL (74-106) H Uric Acid 8.7 mg/dL (3.0-7.5) H Calcium Level 7.7 mg/dL (8.6-10.2) L Phosphorus Level 5.2 mg/dL (2.5-4.8) H Magnesium Level 2.0 mg/dL (1.7-2.5) Total Bilirubin 0.6 mg/dL (0.0-1.2) Gamma Glutamyl Transpeptidase 71 U/L (5-36) H Aspartate Amino Transf (AST/SGOT) 16 U/L (5-40) Alanine Aminotransferase (ALT/SGPT) 8 U/L (3-33) Alkaline Phosphatase 80 U/L (35-104) C-Reactive Protein, Quantitative 11.6 mg/dL (< 0.5) H Pro-B-Type Natriuretic Peptide 3706 pg/mL (0-125) H Total Protein 5.1 g/dL (6.6-8.7) L Albumin 1.5 g/dL (3.5-5.2) L Globulin 3.6 g/dL Albumin/Globulin Ratio 0.4 (1.0-2.7) L Lipase 76 U/L (< 60) H Activated Partial Thromboplast Time 67 SEC (23-33) H Urine Osmolality Pending Urine Random Sodium 10 mmol/L Urine Random Chloride 21 mmol/L Urine Potassium Timed 23 mmol/L Arterial Blood pH 7.398 (7.350-7.450) Arterial Blood Partial Pressure CO2 41.2 mmHg (35.0-45.0) Arterial Blood Partial Pressure O2 97.2 mmHg (75.0-100.0) Arterial Blood HCO3 24.8 mmol/L (22.0-26.0) Arterial Blood Oxygen Saturation 96.2 % (92.0-98.0) Arterial Blood Base Excess 0 Ok Test Positive Microbiology Date/Time Source Procedure Growth Status 12/18/16 05:00 Urine,Clean Catch Urine Culture - Final YEAST Complete ANNE RAM Dec 20, 2016 20:22
[2016-12-20] MEDS ORDERED: Fat Emulsion Iv 20% 240 ML in Tpn 1,992 ML IV SCH (21:00)
--- NOTE | 2016-12-20 22:06 | General Progress Note ---
Assessment/Plan Assessment/Plan Assessment Pancreatitis cholelithiasis, no e/o choledocholithiasis Leukocytosis improving Respiratory failure Azotemia improving Anemia colon polyp Guarded Assessment/Plan TPN d/c Sandostatin abx watch Cr and other labs supportive care Subjective Allergies: Coded Allergies: No Known Allergies (Unverified , 09/28/14) Subjective above noted denies abd pain intubated d/w RN On TPN Objective Last 24 Hour Vital Signs Date Time Temp Pulse Resp B/P Pulse Ox O2 Delivery O2 Flow Rate FiO2 12/20/16 21:12 55 15 30 12/20/16 21:00 61 16 145/47 99 Mechanical Ventilator 30 12/20/16 20:00 30 12/20/16 20:00 55 12/20/16 20:00 99.1 58 20 157/49 98 Mechanical Ventilator 30 12/20/16 19:00 50 16 161/50 100 Mechanical Ventilator 30 12/20/16 19:00 48 15 30 12/20/16 18:00 52 15 157/52 97 Mechanical Ventilator 30 12/20/16 17:00 54 19 147/43 97 Mechanical Ventilator 30 12/20/16 16:44 51 15 30 12/20/16 16:00 98.1 46 17 143/51 98 Mechanical Ventilator 30 12/20/16 16:00 55 12/20/16 15:46 58 16 30 12/20/16 15:00 55 20 147/57 97 Mechanical Ventilator 30 12/20/16 14:00 61 19 154/53 97 Mechanical Ventilator 30 12/20/16 13:51 98.2 12/20/16 13:11 60 16 30 12/20/16 13:00 55 20 165/45 99 Mechanical Ventilator 30 12/20/16 12:12 30 12/20/16 12:00 90 12/20/16 12:00 98.2 68 22 155/52 97 Mechanical Ventilator 30 12/20/16 11:41 30 12/20/16 11:30 59 16 30 12/20/16 11:04 30 12/20/16 11:00 57 16 160/59 99 Mechanical Ventilator 30 12/20/16 11:00 60 21 30 12/20/16 10:00 56 16 152/48 99 Mechanical Ventilator 30 12/20/16 09:12 60 159/44 12/20/16 09:11 55 16 30 12/20/16 09:00 60 15 159/44 98 Mechanical Ventilator 30 12/20/16 08:00 98.0 56 16 154/44 100 Mechanical Ventilator 30 12/20/16 08:00 30 12/20/16 08:00 52 12/20/16 07:00 52 15 147/47 99 Mechanical Ventilator 30 12/20/16 06:30 51 15 30 12/20/16 06:00 49 15 152/48 99 Mechanical Ventilator 30 12/20/16 05:30 47 15 30 12/20/16 05:00 47 15 152/49 99 Mechanical Ventilator 30 12/20/16 04:00 30 12/20/16 04:00 53 12/20/16 04:00 98.1 52 16 142/44 98 Mechanical Ventilator 30 12/20/16 03:30 58 18 30 12/20/16 03:00 54 16 144/45 98 Mechanical Ventilator 30 12/20/16 02:00 50 15 163/47 98 Mechanical Ventilator 30 12/20/16 01:21 52 15 30 12/20/16 01:00 50 12 154/57 98 Mechanical Ventilator 30 12/20/16 00:00 50 12/20/16 00:00 30 12/20/16 00:00 60 15 177/47 98 Mechanical Ventilator 30 12/19/16 23:30 50 15 30 12/19/16 23:00 98.0 50 16 149/55 98 Mechanical Ventilator 30 Intake and Output 12/19/16 12/20/16 19:00 07:00 Intake Total 1039.390 ml 1813.250 ml Output Total 660 ml 525 ml Balance 379.390 ml 1288.250 ml IV Total 959.390 ml 1693.250 ml Other 80 ml 120 ml Output Urine Total 660 ml 525 ml # Bowel Movements 1 Laboratory Tests 12/20/16 04:15: White Blood Count 13.9H, Red Blood Count 2.68L, Hemoglobin 8.1L, Hematocrit 25.1L, Mean Corpuscular Volume 94, Mean Corpuscular Hemoglobin 30.4, Mean Corpuscular Hemoglobin Concent 32.4, Red Cell Distribution Width 13.6, Platelet Count 194, Mean Platelet Volume 9.0, Neutrophils (%) (Auto) 84.1H, Lymphocytes ( %) (Auto) 6.0L, Monocytes (%) (Auto) 7.9, Eosinophils (%) (Auto) 1.7, Basophils (%) (Auto) 0.2, Sodium Level 138, Potassium Level 3.3L, Chloride Level 99, Carbon Dioxide Level 25, Anion Gap 14, Blood Urea Nitrogen 70H, Creatinine 1.8H , Estimat Glomerular Filtration Rate 27.8, Glucose Level 210H, Uric Acid 8.7H, Calcium Level 7.7L, Phosphorus Level 5.2H, Magnesium Level 2.0, Total Bilirubin 0.6, Gamma Glutamyl Transpeptidase 71H, Aspartate Amino Transf (AST/SGOT) 16, Alanine Aminotransferase (ALT/SGPT) 8, Alkaline Phosphatase 80, C-Reactive Protein, Quantitative 11.6H, Pro-B-Type Natriuretic Peptide 3706H, Total Protein 5.1L, Albumin 1.5L, Globulin 3.6, Albumin/Globulin Ratio 0.4L, Lipase 76H 12/20/16 07:15: Activated Partial Thromboplast Time 67H 12/20/16 07:30: Urine Osmolality [Pending], Urine Random Sodium 10, Urine Random Chloride 21, Urine Potassium Timed 23 12/20/16 08:23: Arterial Blood pH 7.398, Arterial Blood Partial Pressure CO2 41.2, Arterial Blood Partial Pressure O2 97.2, Arterial Blood HCO3 24.8, Arterial Blood Oxygen Saturation 96.2, Arterial Blood Base Excess 0, Ok Test Positive Height (Feet): 5 Height (Inches): 1.00 Weight (Pounds): 145 Objective Elderly woman NCAT, intubated responsive supple CTA RRR Abd soft NT distended no edema MAXIME EVANS Dec 20, 2016 22:06
[2016-12-21] VITALS (24 sets, daily range): BP systolic 146–183; BP diastolic 41–57
[2016-12-21] MEDS: Morphine Sulfate 4mg/ml Inj IVP PRN ×3 (03:01→17:42)
[2016-12-21 04:53] LABS: BASOPHILS % (AUTO) 0.7 % (0.0-2.0); EOSINOPHILS % (AUTO) 1.5 % (0.0-3.0); LYMPHOCYTES % (AUTO) 8.1 % (20.0-45.0); MEAN CORPUSCULAR HEMOGLOBIN 29.9 PG (27.0-31.0); MEAN CORPUSCULAR HGB CONC 31.8 G/DL (32.0-36.0); MEAN CORPUSCULAR VOLUME 94 FL (80-99); MEAN PLATELET VOLUME 8.3 FL (6.5-10.1); MONOCYTES % (AUTO) 9.9 % (1.0-10.0); NEUTROPHILS % (AUTO) 79.8 % (45.0-75.0); PLATELET COUNT 213 K/UL (150-450); RED BLOOD COUNT 2.77 M/UL (4.20-5.40); WHITE BLOOD COUNT 12.4 K/UL (4.8-10.8)
[2016-12-21] MEDS: Meropenem 500 MG in NS 55 ML IV SCH ×2 (05:41→17:35)
[2016-12-21] MEDS: NovoLOG Insulin Flexpen SUBQ SCH ×4 (06:00→23:41)
[2016-12-21] MEDS ORDERED: Heparin 5000 units/ml inj IV ONE ×2 (06:00→14:30)
[2016-12-21] MEDS: Heparin 25,000u/D5W 500ml 500 ML IV SCH ×2 (06:05→14:53)
[2016-12-21 06:51] LABS: ALBUMIN/GLOBULIN RATIO 0.3 (1.0-2.7); CALCIUM 7.8 mg/dL (8.6-10.2); CREATININE 1.6 mg/dL (0.5-0.9); GLOMERULAR FILTRATION RATE 31.8 mL/min (>60); MAGNESIUM 2.1 mg/dL (1.7-2.5); PHOSPHORUS 4.7 mg/dL (2.5-4.8); POTASSIUM 3.5 mEQ/L (3.4-4.9); TOTAL PROTEIN 5.5 g/dL (6.6-8.7)
[2016-12-21 07:46] LABS: ABG ALLEN TEST POSITIVE; ABG BASE EXCESS 3.1; ABG PCO2 44.4 mmHg (35.0-45.0)
[2016-12-21] MEDS: Pantoprazole Inj IVP SCH (08:18)
[2016-12-21] MEDS: Sucralfate 1gm tab ORAL SCH ×4 (08:18→20:57)
--- NOTE | 2016-12-21 08:25 | Diagnostic Imaging Report ---
Indications: DYSPNEA Technique: Portable AP chest Findings: Comparison: 12/20/16 Cardiomegaly, pulmonary vascular redistribution, diffuse bilateral interstitial infiltrates persist, unchanged. Pulmonary inflation has mildly improved. Linear density in left lung base less evident. Lines and tubes remain in place. No new abnormality identified. IMPRESSION: Stable bilateral congestive changes Decreased in subsegmental atelectasis left lung base
--- NOTE | 2016-12-21 09:15 | General Progress Note ---
Progress Note Progress Note pt with sever pancreatitis, presumibly 2o to gallstone. required intubation. sen at bedside with daughter. pt awake alert , responding appropriately. remains intubated, getting weaned. on tpn Last 24 Hour Vital Signs Date Time Temp Pulse Resp B/P Pulse Ox O2 Delivery O2 Flow Rate FiO2 12/21/16 08:29 30 12/21/16 08:18 62 169/49 12/21/16 08:00 47 12/21/16 08:00 30 12/21/16 08:00 100.5 60 17 169/49 98 Mechanical Ventilator 30 12/21/16 07:00 54 16 157/43 98 Mechanical Ventilator 30 12/21/16 07:00 54 15 30 12/21/16 06:00 49 15 147/46 98 Mechanical Ventilator 30 12/21/16 05:03 50 15 30 12/21/16 05:00 50 15 148/43 98 Mechanical Ventilator 30 12/21/16 04:00 54 12/21/16 04:00 30 12/21/16 04:00 98.9 54 15 156/57 97 Mechanical Ventilator 30 12/21/16 03:20 54 15 30 12/21/16 03:00 54 15 165/48 98 Mechanical Ventilator 30 12/21/16 02:00 54 15 164/55 98 Mechanical Ventilator 30 12/21/16 01:22 58 15 30 12/21/16 01:00 51 15 154/55 98 Mechanical Ventilator 30 12/21/16 00:00 30 12/21/16 00:00 56 12/21/16 00:00 99.1 52 16 154/50 98 Mechanical Ventilator 30 12/20/16 23:06 56 15 30 12/20/16 23:00 52 16 161/53 98 Mechanical Ventilator 30 12/20/16 22:00 51 16 161/51 98 Mechanical Ventilator 30 12/20/16 21:12 55 15 30 12/20/16 21:00 61 16 145/47 99 Mechanical Ventilator 30 12/20/16 20:00 30 12/20/16 20:00 55 12/20/16 20:00 99.1 58 20 157/49 98 Mechanical Ventilator 30 12/20/16 19:00 50 16 161/50 100 Mechanical Ventilator 30 12/20/16 19:00 48 15 30 12/20/16 18:00 52 15 157/52 97 Mechanical Ventilator 30 12/20/16 17:00 54 19 147/43 97 Mechanical Ventilator 30 12/20/16 16:44 51 15 30 12/20/16 16:00 98.1 46 17 143/51 98 Mechanical Ventilator 30 12/20/16 16:00 55 12/20/16 15:46 58 16 30 12/20/16 15:00 55 20 147/57 97 Mechanical Ventilator 30 12/20/16 14:00 61 19 154/53 97 Mechanical Ventilator 30 12/20/16 13:51 98.2 12/20/16 13:11 60 16 30 12/20/16 13:00 55 20 165/45 99 Mechanical Ventilator 30 12/20/16 12:12 30 12/20/16 12:00 90 12/20/16 12:00 98.2 68 22 155/52 97 Mechanical Ventilator 30 12/20/16 11:41 30 12/20/16 11:30 59 16 30 12/20/16 11:04 30 12/20/16 11:00 57 16 160/59 99 Mechanical Ventilator 30 12/20/16 11:00 60 21 30 abdomen soft12/20/16 10:00 56 16 152/48 99 Mechanical Ventilator 30 abdomen soft, mildly tnder Laboratory Tests Test 12/21/16 04:15 12/21/16 07:38 White Blood Count 12.4 K/UL (4.8-10.8) H Red Blood Count 2.77 M/UL (4.20-5.40) L Hemoglobin 8.3 G/DL (12.0-16.0) L Hematocrit 26.0 % (37.0-47.0) L Mean Corpuscular Volume 94 FL (80-99) Mean Corpuscular Hemoglobin 29.9 PG (27.0-31.0) Mean Corpuscular Hemoglobin Concent 31.8 G/DL (32.0-36.0) L Red Cell Distribution Width 14.0 % (11.6-14.8) Platelet Count 213 K/UL (150-450) Mean Platelet Volume 8.3 FL (6.5-10.1) Neutrophils (%) (Auto) 79.8 % (45.0-75.0) H Lymphocytes (%) (Auto) 8.1 % (20.0-45.0) L Monocytes (%) (Auto) 9.9 % (1.0-10.0) Eosinophils (%) (Auto) 1.5 % (0.0-3.0) Basophils (%) (Auto) 0.7 % (0.0-2.0) Activated Partial Thromboplast Time 63 SEC (23-33) H Sodium Level 139 mEQ/L (135-145) Potassium Level 3.5 mEQ/L (3.4-4.9) Chloride Level 100 mEQ/L (98-107) Carbon Dioxide Level 25 mEQ/L (20-30) Anion Gap 14 (5-15) Blood Urea Nitrogen 73 mg/dL (7-23) H Creatinine 1.6 mg/dL (0.5-0.9) H Estimat Glomerular Filtration Rate 31.8 mL/min (>60) Glucose Level 200 mg/dL (74-106) H Calcium Level 7.8 mg/dL (8.6-10.2) L Phosphorus Level 4.7 mg/dL (2.5-4.8) Magnesium Level 2.1 mg/dL (1.7-2.5) Total Bilirubin 0.7 mg/dL (0.0-1.2) Aspartate Amino Transf (AST/SGOT) 19 U/L (5-40) Alanine Aminotransferase (ALT/SGPT) 8 U/L (3-33) Alkaline Phosphatase 88 U/L (35-104) Total Protein 5.5 g/dL (6.6-8.7) L Albumin 1.5 g/dL (3.5-5.2) L Globulin 4.0 g/dL Albumin/Globulin Ratio 0.3 (1.0-2.7) L Triglycerides Level 114 mg/dL (< 150) Arterial Blood pH 7.418 (7.350-7.450) Arterial Blood Partial Pressure CO2 44.4 mmHg (35.0-45.0) Arterial Blood Partial Pressure O2 88.7 mmHg (75.0-100.0) Arterial Blood HCO3 28.0 mmol/L (22.0-26.0) H Arterial Blood Oxygen Saturation 95.9 % (92.0-98.0) Arterial Blood Base Excess 3.1 Ok Test Positive plan wean as tolerated. eventually will need lap cholecystecomy LISA LICEA Dec 21, 2016 09:15
--- NOTE | 2016-12-21 09:59 | Pulmonolgy Critical Care Note ---
Critical Care - Asmt/Plan Problems: (1) Respiratory failure requiring intubation (2) Sepsis (3) Pancreatitis (4) ATN (acute tubular necrosis) (5) Atrial fibrillation Respiratory: monitor respiratory rate, adjust FIO2, CXR, weaning trial Cardiac: continue pressors, stop pressors, continue to monitor HR/BP, other - hydralazine prn Renal: F/U I&O Infectious Disease: check cultures Gastrointestinal: continue feedings/current rate Endocrine: monitor blood sugar, check HgA1C, continue sliding scale insulin Neurologic: PRN Ativan, keep patient comfortable Affect: PRN ativan Disposition: keep in ICU Time Spent (Minutes): 40 Notes Reviewed: 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 with: nurses, consultants Critical Care - Objective Last 24 Hour Vital Signs Date Time Temp Pulse Resp B/P Pulse Ox O2 Delivery O2 Flow Rate FiO2 12/21/16 09:18 98.9 12/21/16 09:14 61 14 30 12/21/16 09:12 98 12/21/16 09:00 98.9 54 16 159/49 98 Mechanical Ventilator 30 12/21/16 08:29 30 12/21/16 08:18 62 169/49 12/21/16 08:00 47 12/21/16 08:00 30 12/21/16 08:00 100.5 60 17 169/49 98 Mechanical Ventilator 30 12/21/16 07:00 54 16 157/43 98 Mechanical Ventilator 30 12/21/16 07:00 54 15 30 12/21/16 06:00 49 15 147/46 98 Mechanical Ventilator 30 12/21/16 05:03 50 15 30 12/21/16 05:00 50 15 148/43 98 Mechanical Ventilator 30 12/21/16 04:00 54 12/21/16 04:00 30 12/21/16 04:00 98.9 54 15 156/57 97 Mechanical Ventilator 30 12/21/16 03:20 54 15 30 12/21/16 03:00 54 15 165/48 98 Mechanical Ventilator 30 12/21/16 02:00 54 15 164/55 98 Mechanical Ventilator 30 12/21/16 01:22 58 15 30 12/21/16 01:00 51 15 154/55 98 Mechanical Ventilator 30 12/21/16 00:00 30 12/21/16 00:00 56 12/21/16 00:00 99.1 52 16 154/50 98 Mechanical Ventilator 30 12/20/16 23:06 56 15 30 12/20/16 23:00 52 16 161/53 98 Mechanical Ventilator 30 12/20/16 22:00 51 16 161/51 98 Mechanical Ventilator 30 12/20/16 21:12 55 15 30 12/20/16 21:00 61 16 145/47 99 Mechanical Ventilator 30 12/20/16 20:00 30 12/20/16 20:00 55 12/20/16 20:00 99.1 58 20 157/49 98 Mechanical Ventilator 30 12/20/16 19:00 50 16 161/50 100 Mechanical Ventilator 30 12/20/16 19:00 48 15 30 12/20/16 18:00 52 15 157/52 97 Mechanical Ventilator 30 12/20/16 17:00 54 19 147/43 97 Mechanical Ventilator 30 12/20/16 16:44 51 15 30 12/20/16 16:00 98.1 46 17 143/51 98 Mechanical Ventilator 30 12/20/16 16:00 55 12/20/16 15:46 58 16 30 12/20/16 15:00 55 20 147/57 97 Mechanical Ventilator 30 12/20/16 14:00 61 19 154/53 97 Mechanical Ventilator 30 12/20/16 13:51 98.2 12/20/16 13:11 60 16 30 12/20/16 13:00 55 20 165/45 99 Mechanical Ventilator 30 12/20/16 12:12 30 12/20/16 12:00 90 12/20/16 12:00 98.2 68 22 155/52 97 Mechanical Ventilator 30 12/20/16 11:41 30 12/20/16 11:30 59 16 30 12/20/16 11:04 30 12/20/16 11:00 57 16 160/59 99 Mechanical Ventilator 30 12/20/16 11:00 60 21 30 12/20/16 10:00 56 16 152/48 99 Mechanical Ventilator 30 Status: awake Condition: critical HEENT: atraumatic Neck: full ROM Heart: HR/BP stable, HR/BP unstable Abdomen: soft, active bowel sounds Extremities: no C/C/E, edema Accucheck: 192 Critical Care - Subjective FI02: 30 Vent Support Breath Rate: 12 Vent Support Mode: IMV/SIMV Vent Tidal Volume: 600 Sputum Amount: Moderate PEEP: 5.0 PIP: 43 Fluids: tpn I&O: Intake and Output 12/20/16 12/21/16 19:00 07:00 Intake Total 1698.268 ml 1625.899 ml Output Total 1240 ml 985 ml Balance 458.268 ml 640.899 ml IV Total 1518.268 ml 1565.899 ml Other 180 ml 60 ml Output Urine Total 1240 ml 985 ml # Bowel Movements 1 2 ET-Tube: 7.5 ET Position: 22 Labs: Laboratory Tests Test 12/21/16 04:15 12/21/16 07:38 White Blood Count 12.4 K/UL (4.8-10.8) H Red Blood Count 2.77 M/UL (4.20-5.40) L Hemoglobin 8.3 G/DL (12.0-16.0) L Hematocrit 26.0 % (37.0-47.0) L Mean Corpuscular Volume 94 FL (80-99) Mean Corpuscular Hemoglobin 29.9 PG (27.0-31.0) Mean Corpuscular Hemoglobin Concent 31.8 G/DL (32.0-36.0) L Red Cell Distribution Width 14.0 % (11.6-14.8) Platelet Count 213 K/UL (150-450) Mean Platelet Volume 8.3 FL (6.5-10.1) Neutrophils (%) (Auto) 79.8 % (45.0-75.0) H Lymphocytes (%) (Auto) 8.1 % (20.0-45.0) L Monocytes (%) (Auto) 9.9 % (1.0-10.0) Eosinophils (%) (Auto) 1.5 % (0.0-3.0) Basophils (%) (Auto) 0.7 % (0.0-2.0) Activated Partial Thromboplast Time 63 SEC (23-33) H Sodium Level 139 mEQ/L (135-145) Potassium Level 3.5 mEQ/L (3.4-4.9) Chloride Level 100 mEQ/L (98-107) Carbon Dioxide Level 25 mEQ/L (20-30) Anion Gap 14 (5-15) Blood Urea Nitrogen 73 mg/dL (7-23) H Creatinine 1.6 mg/dL (0.5-0.9) H Estimat Glomerular Filtration Rate 31.8 mL/min (>60) Glucose Level 200 mg/dL (74-106) H Calcium Level 7.8 mg/dL (8.6-10.2) L Phosphorus Level 4.7 mg/dL (2.5-4.8) Magnesium Level 2.1 mg/dL (1.7-2.5) Total Bilirubin 0.7 mg/dL (0.0-1.2) Aspartate Amino Transf (AST/SGOT) 19 U/L (5-40) Alanine Aminotransferase (ALT/SGPT) 8 U/L (3-33) Alkaline Phosphatase 88 U/L (35-104) Total Protein 5.5 g/dL (6.6-8.7) L Albumin 1.5 g/dL (3.5-5.2) L Globulin 4.0 g/dL Albumin/Globulin Ratio 0.3 (1.0-2.7) L Triglycerides Level 114 mg/dL (< 150) Arterial Blood pH 7.418 (7.350-7.450) Arterial Blood Partial Pressure CO2 44.4 mmHg (35.0-45.0) Arterial Blood Partial Pressure O2 88.7 mmHg (75.0-100.0) Arterial Blood HCO3 28.0 mmol/L (22.0-26.0) H Arterial Blood Oxygen Saturation 95.9 % (92.0-98.0) Arterial Blood Base Excess 3.1 Ok Test Positive TONY BRIDGES Dec 21, 2016 09:59
[2016-12-21] MEDS ORDERED: NS 275ml ONE (10:45)
[2016-12-21] MEDS ORDERED: Tubing IV Secondary IV ONE (10:59)
--- NOTE | 2016-12-21 13:21 | General Progress Note ---
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 Mirtral Vavle prosthesis on anticoagulation Pulmonary HTN HypoAlbuminemia Plan: Per GI / Surgery On TPN Keep BP under control Avoid nephrotoxics K supplement as needed monitor renal parameters Subjective ROS Limited/Unobtainable: Yes Allergies: Coded Allergies: No Known Allergies (Unverified , 09/28/14) Objective Last 24 Hour Vital Signs Date Time Temp Pulse Resp B/P Pulse Ox O2 Delivery O2 Flow Rate FiO2 12/21/16 12:00 98.4 59 17 153/44 99 Mechanical Ventilator 30 12/21/16 12:00 67 12/21/16 11:00 55 17 159/44 99 Mechanical Ventilator 30 12/21/16 11:00 56 17 30 12/21/16 10:19 30 12/21/16 10:00 54 16 146/41 99 Mechanical Ventilator 30 12/21/16 09:18 98.9 12/21/16 09:14 61 14 30 12/21/16 09:12 98 12/21/16 09:00 98.9 54 16 159/49 98 Mechanical Ventilator 30 12/21/16 08:29 30 12/21/16 08:18 62 169/49 12/21/16 08:00 47 12/21/16 08:00 30 12/21/16 08:00 100.5 60 17 169/49 98 Mechanical Ventilator 30 12/21/16 07:00 54 16 157/43 98 Mechanical Ventilator 30 12/21/16 07:00 54 15 30 12/21/16 06:00 49 15 147/46 98 Mechanical Ventilator 30 12/21/16 05:03 50 15 30 12/21/16 05:00 50 15 148/43 98 Mechanical Ventilator 30 12/21/16 04:00 54 12/21/16 04:00 30 12/21/16 04:00 98.9 54 15 156/57 97 Mechanical Ventilator 30 12/21/16 03:20 54 15 30 12/21/16 03:00 54 15 165/48 98 Mechanical Ventilator 30 12/21/16 02:00 54 15 164/55 98 Mechanical Ventilator 30 12/21/16 01:22 58 15 30 12/21/16 01:00 51 15 154/55 98 Mechanical Ventilator 30 12/21/16 00:00 30 12/21/16 00:00 56 12/21/16 00:00 99.1 52 16 154/50 98 Mechanical Ventilator 30 12/20/16 23:06 56 15 30 12/20/16 23:00 52 16 161/53 98 Mechanical Ventilator 30 12/20/16 22:00 51 16 161/51 98 Mechanical Ventilator 30 12/20/16 21:12 55 15 30 12/20/16 21:00 61 16 145/47 99 Mechanical Ventilator 30 12/20/16 20:00 30 12/20/16 20:00 55 12/20/16 20:00 99.1 58 20 157/49 98 Mechanical Ventilator 30 12/20/16 19:00 50 16 161/50 100 Mechanical Ventilator 30 12/20/16 19:00 48 15 30 12/20/16 18:00 52 15 157/52 97 Mechanical Ventilator 30 12/20/16 17:00 54 19 147/43 97 Mechanical Ventilator 30 12/20/16 16:44 51 15 30 12/20/16 16:00 98.1 46 17 143/51 98 Mechanical Ventilator 30 12/20/16 16:00 55 12/20/16 15:46 58 16 30 12/20/16 15:00 55 20 147/57 97 Mechanical Ventilator 30 12/20/16 14:00 61 19 154/53 97 Mechanical Ventilator 30 12/20/16 13:51 98.2 Intake and Output 12/20/16 12/21/16 19:00 07:00 Intake Total 1698.268 ml 1625.899 ml Output Total 1240 ml 985 ml Balance 458.268 ml 640.899 ml IV Total 1518.268 ml 1565.899 ml Other 180 ml 60 ml Output Urine Total 1240 ml 985 ml # Bowel Movements 1 2 Laboratory Tests 12/21/16 04:15: White Blood Count 12.4H, Red Blood Count 2.77L, Hemoglobin 8.3L, Hematocrit 26.0L, Mean Corpuscular Volume 94, Mean Corpuscular Hemoglobin 29.9, Mean Corpuscular Hemoglobin Concent 31.8L, Red Cell Distribution Width 14.0, Platelet Count 213, Mean Platelet Volume 8.3, Neutrophils (%) (Auto) 79.8H, Lymphocytes (%) (Auto) 8.1L, Monocytes (%) (Auto) 9.9, Eosinophils (%) (Auto) 1.5, Basophils (%) (Auto) 0.7, Activated Partial Thromboplast Time 63H, Sodium Level 139, Potassium Level 3.5, Chloride Level 100, Carbon Dioxide Level 25, Anion Gap 14, Blood Urea Nitrogen 73H, Creatinine 1.6H, Estimat Glomerular Filtration Rate 31.8, Glucose Level 200H, Calcium Level 7.8L, Phosphorus Level 4.7, Magnesium Level 2.1, Total Bilirubin 0.7, Aspartate Amino Transf (AST/SGOT ) 19, Alanine Aminotransferase (ALT/SGPT) 8, Alkaline Phosphatase 88, Total Protein 5.5L, Albumin 1.5L, Globulin 4.0, Albumin/Globulin Ratio 0.3L, Triglycerides Level 114 12/21/16 07:38: Arterial Blood pH 7.418, Arterial Blood Partial Pressure CO2 44.4, Arterial Blood Partial Pressure O2 88.7, Arterial Blood HCO3 28.0H, Arterial Blood Oxygen Saturation 95.9, Arterial Blood Base Excess 3.1, Ok Test Positive 12/21/16 12:30: Activated Partial Thromboplast Time 63H Height (Feet): 5 Height (Inches): 1.00 Weight (Pounds): 145 General Appearance: other - on Vent Cardiovascular: normal rate Respiratory/Chest: decreased breath sounds Abdomen: soft Objective other PE not changed KAMINI SNOW Dec 21, 2016 13:21
--- NOTE | 2016-12-21 14:31 | Diagnostic Imaging Report ---
Indications: Elevated hepatic and renal function tests, amylase and lipase Technique: Transabdominal real-time grayscale and duplex Doppler imaging of the upper abdomen and retroperitoneum was performed. Findings: Comparison: CT abdomen pelvis 12/16/16. Liver 22 cm in length. Normal surface contour, parenchymal echogenicity. No focal lesions. Gallbladder contains echogenic shadowing foci and globular hypoechoic non-shadowing material.. No mural thickening or adjacent fluid collections. Sonographic Diaz sign negative.. Bile ducts normal caliber. Common bile duct 7 mm. Pancreas largely obscured. Spleen unremarkable. Right kidney unremarkable. Left kidney unremarkable. Abdominal aorta, intrahepatic portion of inferior vena cava patent, normal caliber. Duplex Doppler imaging demonstrates antegrade flow in portal, hepatic veins. Moderate ascites. IMPRESSION: Hepatomegaly Gallstones and sludge. No evidence of bile duct dilation/obstruction. Pancreas obscured Ascites.
--- NOTE | 2016-12-21 18:44 | General Progress Note ---
Assessment/Plan Assessment/Plan Assessment Pancreatitis cholelithiasis, no e/o choledocholithiasis Leukocytosis improving Respiratory failure Azotemia improving Anemia colon polyp Guarded Assessment/Plan TPN abx watch Cr and other labs supportive care Subjective Allergies: Coded Allergies: No Known Allergies (Unverified , 09/28/14) Subjective above noted denies abd pain intubated d/w RN On TPN Objective Last 24 Hour Vital Signs Date Time Temp Pulse Resp B/P Pulse Ox O2 Delivery O2 Flow Rate FiO2 12/21/16 18:12 98.7 12/21/16 18:00 74 24 172/46 100 Mechanical Ventilator 30 12/21/16 17:47 30 12/21/16 17:35 175/49 12/21/16 17:00 66 24 30 12/21/16 17:00 75 24 175/49 100 Mechanical Ventilator 30 12/21/16 16:00 30 12/21/16 16:00 98.7 59 17 159/53 98 Mechanical Ventilator 30 12/21/16 16:00 61 12/21/16 15:21 58 16 30 12/21/16 15:00 60 17 157/50 98 Mechanical Ventilator 30 12/21/16 14:00 61 18 152/48 98 Mechanical Ventilator 30 12/21/16 13:10 60 16 30 12/21/16 13:00 57 18 150/52 98 Mechanical Ventilator 30 12/21/16 12:00 98.4 59 17 153/44 99 Mechanical Ventilator 30 12/21/16 12:00 67 12/21/16 11:00 55 17 159/44 99 Mechanical Ventilator 30 12/21/16 11:00 56 17 30 12/21/16 10:19 30 12/21/16 10:00 54 16 146/41 99 Mechanical Ventilator 30 12/21/16 09:18 98.9 12/21/16 09:14 61 14 30 12/21/16 09:12 98 12/21/16 09:00 98.9 54 16 159/49 98 Mechanical Ventilator 30 12/21/16 08:29 30 12/21/16 08:18 62 169/49 12/21/16 08:00 47 12/21/16 08:00 30 12/21/16 08:00 100.5 60 17 169/49 98 Mechanical Ventilator 30 12/21/16 07:00 54 16 157/43 98 Mechanical Ventilator 30 12/21/16 07:00 54 15 30 12/21/16 06:00 49 15 147/46 98 Mechanical Ventilator 30 12/21/16 05:03 50 15 30 12/21/16 05:00 50 15 148/43 98 Mechanical Ventilator 30 12/21/16 04:00 54 12/21/16 04:00 30 12/21/16 04:00 98.9 54 15 156/57 97 Mechanical Ventilator 30 12/21/16 03:20 54 15 30 12/21/16 03:00 54 15 165/48 98 Mechanical Ventilator 30 12/21/16 02:00 54 15 164/55 98 Mechanical Ventilator 30 12/21/16 01:22 58 15 30 12/21/16 01:00 51 15 154/55 98 Mechanical Ventilator 30 12/21/16 00:00 30 12/21/16 00:00 56 12/21/16 00:00 99.1 52 16 154/50 98 Mechanical Ventilator 30 12/20/16 23:06 56 15 30 12/20/16 23:00 52 16 161/53 98 Mechanical Ventilator 30 12/20/16 22:00 51 16 161/51 98 Mechanical Ventilator 30 12/20/16 21:12 55 15 30 12/20/16 21:00 61 16 145/47 99 Mechanical Ventilator 30 12/20/16 20:00 30 12/20/16 20:00 55 12/20/16 20:00 99.1 58 20 157/49 98 Mechanical Ventilator 30 12/20/16 19:00 50 16 161/50 100 Mechanical Ventilator 30 12/20/16 19:00 48 15 30 Intake and Output 12/20/16 12/21/16 19:00 07:00 Intake Total 1698.268 ml 1625.899 ml Output Total 1240 ml 985 ml Balance 458.268 ml 640.899 ml IV Total 1518.268 ml 1565.899 ml Other 180 ml 60 ml Output Urine Total 1240 ml 985 ml # Bowel Movements 1 2 Laboratory Tests 12/21/16 04:15: White Blood Count 12.4H, Red Blood Count 2.77L, Hemoglobin 8.3L, Hematocrit 26.0L, Mean Corpuscular Volume 94, Mean Corpuscular Hemoglobin 29.9, Mean Corpuscular Hemoglobin Concent 31.8L, Red Cell Distribution Width 14.0, Platelet Count 213, Mean Platelet Volume 8.3, Neutrophils (%) (Auto) 79.8H, Lymphocytes (%) (Auto) 8.1L, Monocytes (%) (Auto) 9.9, Eosinophils (%) (Auto) 1.5, Basophils (%) (Auto) 0.7, Activated Partial Thromboplast Time 63H, Sodium Level 139, Potassium Level 3.5, Chloride Level 100, Carbon Dioxide Level 25, Anion Gap 14, Blood Urea Nitrogen 73H, Creatinine 1.6H, Estimat Glomerular Filtration Rate 31.8, Glucose Level 200H, Calcium Level 7.8L, Phosphorus Level 4.7, Magnesium Level 2.1, Total Bilirubin 0.7, Aspartate Amino Transf (AST/SGOT ) 19, Alanine Aminotransferase (ALT/SGPT) 8, Alkaline Phosphatase 88, Total Protein 5.5L, Albumin 1.5L, Globulin 4.0, Albumin/Globulin Ratio 0.3L, Triglycerides Level 114 12/21/16 07:38: Arterial Blood pH 7.418, Arterial Blood Partial Pressure CO2 44.4, Arterial Blood Partial Pressure O2 88.7, Arterial Blood HCO3 28.0H, Arterial Blood Oxygen Saturation 95.9, Arterial Blood Base Excess 3.1, Ok Test Positive 12/21/16 12:30: Activated Partial Thromboplast Time 63H Height (Feet): 5 Height (Inches): 1.00 Weight (Pounds): 145 Objective Elderly woman NCAT, intubated responsive supple CTA RRR Abd soft NT distended no edema MAXIME EVANS Dec 21, 2016 18:44
--- NOTE | 2016-12-21 19:44 | Cardiology Progress Note ---
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 mirtral vavle prosthesis on anticoagulation perm afib on anticoagualtion with couamdin coagulaopathy now elevated dueot med interaction adn disease process leukocytosis ARF note no surgery planned diurtics once tonite ntp for bp hydralazien remain npo she si thrid spacing alto due to pancreatitis gettign tpn d/w rn jemima off bb cr decreasing seem over all better more responsive and communic ative is on iv heparin d/w rn Subjective Cardiovascular: Denies: chest pain, lightheadedness, palpitations Respiratory: Denies: shortness of breath Gastrointestinal/Abdominal: Denies: abdominal pain Genitourinary: Denies: burning Subjective on the vent Objective Last 24 Hour Vital Signs Date Time Temp Pulse Resp B/P Pulse Ox O2 Delivery O2 Flow Rate FiO2 12/21/16 19:12 85 22 30 12/21/16 19:00 75 23 175/49 100 Mechanical Ventilator 30 12/21/16 18:12 98.7 12/21/16 18:00 74 24 172/46 100 Mechanical Ventilator 30 12/21/16 17:47 30 12/21/16 17:35 175/49 12/21/16 17:00 66 24 30 12/21/16 17:00 75 24 175/49 100 Mechanical Ventilator 30 12/21/16 16:00 30 12/21/16 16:00 98.7 59 17 159/53 98 Mechanical Ventilator 30 12/21/16 16:00 61 12/21/16 15:21 58 16 30 12/21/16 15:00 60 17 157/50 98 Mechanical Ventilator 30 12/21/16 14:00 61 18 152/48 98 Mechanical Ventilator 30 12/21/16 13:10 60 16 30 12/21/16 13:00 57 18 150/52 98 Mechanical Ventilator 30 12/21/16 12:00 98.4 59 17 153/44 99 Mechanical Ventilator 30 12/21/16 12:00 67 12/21/16 11:00 55 17 159/44 99 Mechanical Ventilator 30 12/21/16 11:00 56 17 30 12/21/16 10:19 30 12/21/16 10:00 54 16 146/41 99 Mechanical Ventilator 30 12/21/16 09:18 98.9 4/14/17 09:14 61 14 30 12/21/16 09:12 98 12/21/16 09:00 98.9 54 16 159/49 98 Mechanical Ventilator 30 12/21/16 08:29 30 12/21/16 08:18 62 169/49 12/21/16 08:00 47 12/21/16 08:00 30 12/21/16 08:00 100.5 60 17 169/49 98 Mechanical Ventilator 30 12/21/16 07:00 54 16 157/43 98 Mechanical Ventilator 30 12/21/16 07:00 54 15 30 12/21/16 06:00 49 15 147/46 98 Mechanical Ventilator 30 12/21/16 05:03 50 15 30 12/21/16 05:00 50 15 148/43 98 Mechanical Ventilator 30 12/21/16 04:00 54 12/21/16 04:00 30 12/21/16 04:00 98.9 54 15 156/57 97 Mechanical Ventilator 30 12/21/16 03:20 54 15 30 12/21/16 03:00 54 15 165/48 98 Mechanical Ventilator 30 12/21/16 02:00 54 15 164/55 98 Mechanical Ventilator 30 12/21/16 01:22 58 15 30 12/21/16 01:00 51 15 154/55 98 Mechanical Ventilator 30 12/21/16 00:00 30 12/21/16 00:00 56 12/21/16 00:00 99.1 52 16 154/50 98 Mechanical Ventilator 30 12/20/16 23:06 56 15 30 12/20/16 23:00 52 16 161/53 98 Mechanical Ventilator 30 12/20/16 22:00 51 16 161/51 98 Mechanical Ventilator 30 12/20/16 21:12 55 15 30 12/20/16 21:00 61 16 145/47 99 Mechanical Ventilator 30 12/20/16 20:00 30 12/20/16 20:00 55 12/20/16 20:00 99.1 58 20 157/49 98 Mechanical Ventilator 30 General Appearance: no apparent distress, alert Neck: supple Cardiovascular: irregularly irregular Respiratory/Chest: decreased breath sounds Abdomen: soft, distended Extremities: moderate edema Intake and Output 12/20/16 12/21/16 19:00 07:00 Intake Total 1698.268 ml 1625.899 ml Output Total 1240 ml 985 ml Balance 458.268 ml 640.899 ml IV Total 1518.268 ml 1565.899 ml Other 180 ml 60 ml Output Urine Total 1240 ml 985 ml # Bowel Movements 1 2 Laboratory Tests Test 12/21/16 04:15 12/21/16 07:38 12/21/16 12:30 White Blood Count 12.4 K/UL (4.8-10.8) H Red Blood Count 2.77 M/UL (4.20-5.40) L Hemoglobin 8.3 G/DL (12.0-16.0) L Hematocrit 26.0 % (37.0-47.0) L Mean Corpuscular Volume 94 FL (80-99) Mean Corpuscular Hemoglobin 29.9 PG (27.0-31.0) Mean Corpuscular Hemoglobin Concent 31.8 G/DL (32.0-36.0) L Red Cell Distribution Width 14.0 % (11.6-14.8) Platelet Count 213 K/UL (150-450) Mean Platelet Volume 8.3 FL (6.5-10.1) Neutrophils (%) (Auto) 79.8 % (45.0-75.0) H Lymphocytes (%) (Auto) 8.1 % (20.0-45.0) L Monocytes (%) (Auto) 9.9 % (1.0-10.0) Eosinophils (%) (Auto) 1.5 % (0.0-3.0) Basophils (%) (Auto) 0.7 % (0.0-2.0) Activated Partial Thromboplast Time 63 SEC (23-33) H 63 SEC (23-33) H Sodium Level 139 mEQ/L (135-145) Potassium Level 3.5 mEQ/L (3.4-4.9) Chloride Level 100 mEQ/L (98-107) Carbon Dioxide Level 25 mEQ/L (20-30) Anion Gap 14 (5-15) Blood Urea Nitrogen 73 mg/dL (7-23) H Creatinine 1.6 mg/dL (0.5-0.9) H Estimat Glomerular Filtration Rate 31.8 mL/min (>60) Glucose Level 200 mg/dL (74-106) H Calcium Level 7.8 mg/dL (8.6-10.2) L Phosphorus Level 4.7 mg/dL (2.5-4.8) Magnesium Level 2.1 mg/dL (1.7-2.5) Total Bilirubin 0.7 mg/dL (0.0-1.2) Aspartate Amino Transf (AST/SGOT) 19 U/L (5-40) Alanine Aminotransferase (ALT/SGPT) 8 U/L (3-33) Alkaline Phosphatase 88 U/L (35-104) Total Protein 5.5 g/dL (6.6-8.7) L Albumin 1.5 g/dL (3.5-5.2) L Globulin 4.0 g/dL Albumin/Globulin Ratio 0.3 (1.0-2.7) L Triglycerides Level 114 mg/dL (< 150) Arterial Blood pH 7.418 (7.350-7.450) Arterial Blood Partial Pressure CO2 44.4 mmHg (35.0-45.0) Arterial Blood Partial Pressure O2 88.7 mmHg (75.0-100.0) Arterial Blood HCO3 28.0 mmol/L (22.0-26.0) H Arterial Blood Oxygen Saturation 95.9 % (92.0-98.0) Arterial Blood Base Excess 3.1 Ok Test Positive ANNE RAM Dec 21, 2016 19:44
--- NOTE | 2016-12-21 19:50 | Infectious Diseases Prog Note ---
Assessment/Plan Assessment/Plan ASSESSMENT: Pancreatitis recurrent CT: Findings compatible with marked worsening of acute pancreatitis MRCP : Cholelithiasis. There is also a calculus within the duct adjacent to the gallbladder Pancreatic Enzymes improving Leukocytosis ( SIRS ) improving cholelithiasis : US of liver : Incidental finding of cholelithiasis and mild gallbladder wall thickening positive sonographic Diaz's sign LFT : Nl UTI : Mandy SCx : Mandy ( colonizer ) VDRF: Cxray : Increase in bilateral congestive changes with persistent small right , probable new left pleural effusions ARF SP aortic stenosis mitral stenosis status post mitral valve replacement AFib Pulmonary hypertension PLAN: - cont Merrem d# / ,and Diflucan d# / - monitor CBC, temperatures, - Monitor culture ( BL) - monitor LFT - GI f/u - Sx is following for possible Cholecystectomy later - VDRF - amylase , Lipase Subjective Constitutional: Denies: anorexia, chills, drenching sweats, fatigue, fever, no symptoms, other Allergies: Coded Allergies: No Known Allergies (Unverified , 09/28/14) Subjective on vent Objective Vital Signs Last 24 Hour Vital Signs Date Time Temp Pulse Resp B/P Pulse Ox O2 Delivery O2 Flow Rate FiO2 12/21/16 19:12 85 22 30 12/21/16 19:00 75 23 175/49 100 Mechanical Ventilator 30 12/21/16 18:12 98.7 12/21/16 18:00 74 24 172/46 100 Mechanical Ventilator 30 12/21/16 17:47 30 12/21/16 17:35 175/49 12/21/16 17:00 66 24 30 12/21/16 17:00 75 24 175/49 100 Mechanical Ventilator 30 12/21/16 16:00 30 12/21/16 16:00 98.7 59 17 159/53 98 Mechanical Ventilator 30 12/21/16 16:00 61 12/21/16 15:21 58 16 30 12/21/16 15:00 60 17 157/50 98 Mechanical Ventilator 30 12/21/16 14:00 61 18 152/48 98 Mechanical Ventilator 30 12/21/16 13:10 60 16 30 12/21/16 13:00 57 18 150/52 98 Mechanical Ventilator 30 12/21/16 12:00 98.4 59 17 153/44 99 Mechanical Ventilator 30 12/21/16 12:00 67 4/14/17 11:00 55 17 159/44 99 Mechanical Ventilator 30 12/21/16 11:00 56 17 30 12/21/16 10:19 30 12/21/16 10:00 54 16 146/41 99 Mechanical Ventilator 30 12/21/16 09:18 98.9 12/21/16 09:14 61 14 30 12/21/16 09:12 98 12/21/16 09:00 98.9 54 16 159/49 98 Mechanical Ventilator 30 12/21/16 08:29 30 12/21/16 08:18 62 169/49 12/21/16 08:00 47 12/21/16 08:00 30 12/21/16 08:00 100.5 60 17 169/49 98 Mechanical Ventilator 30 12/21/16 07:00 54 16 157/43 98 Mechanical Ventilator 30 12/21/16 07:00 54 15 30 12/21/16 06:00 49 15 147/46 98 Mechanical Ventilator 30 12/21/16 05:03 50 15 30 12/21/16 05:00 50 15 148/43 98 Mechanical Ventilator 30 12/21/16 04:00 54 12/21/16 04:00 30 12/21/16 04:00 98.9 54 15 156/57 97 Mechanical Ventilator 30 12/21/16 03:20 54 15 30 12/21/16 03:00 54 15 165/48 98 Mechanical Ventilator 30 12/21/16 02:00 54 15 164/55 98 Mechanical Ventilator 30 12/21/16 01:22 58 15 30 12/21/16 01:00 51 15 154/55 98 Mechanical Ventilator 30 12/21/16 00:00 30 12/21/16 00:00 56 12/21/16 00:00 99.1 52 16 154/50 98 Mechanical Ventilator 30 12/20/16 23:06 56 15 30 12/20/16 23:00 52 16 161/53 98 Mechanical Ventilator 30 12/20/16 22:00 51 16 161/51 98 Mechanical Ventilator 30 12/20/16 21:12 55 15 30 12/20/16 21:00 61 16 145/47 99 Mechanical Ventilator 30 12/20/16 20:00 30 12/20/16 20:00 55 12/20/16 20:00 99.1 58 20 157/49 98 Mechanical Ventilator 30 Height (Feet): 5 Height (Inches): 1.00 Weight (Pounds): 145 HEENT: atraumatic Respiratory/Chest: lungs clear Cardiovascular: normal rate Abdomen: soft, non tender Laboratory Tests Test 12/21/16 04:15 12/21/16 07:38 12/21/16 12:30 White Blood Count 12.4 K/UL (4.8-10.8) H Red Blood Count 2.77 M/UL (4.20-5.40) L Hemoglobin 8.3 G/DL (12.0-16.0) L Hematocrit 26.0 % (37.0-47.0) L Mean Corpuscular Volume 94 FL (80-99) Mean Corpuscular Hemoglobin 29.9 PG (27.0-31.0) Mean Corpuscular Hemoglobin Concent 31.8 G/DL (32.0-36.0) L Red Cell Distribution Width 14.0 % (11.6-14.8) Platelet Count 213 K/UL (150-450) Mean Platelet Volume 8.3 FL (6.5-10.1) Neutrophils (%) (Auto) 79.8 % (45.0-75.0) H Lymphocytes (%) (Auto) 8.1 % (20.0-45.0) L Monocytes (%) (Auto) 9.9 % (1.0-10.0) Eosinophils (%) (Auto) 1.5 % (0.0-3.0) Basophils (%) (Auto) 0.7 % (0.0-2.0) Activated Partial Thromboplast Time 63 SEC (23-33) H 63 SEC (23-33) H Sodium Level 139 mEQ/L (135-145) Potassium Level 3.5 mEQ/L (3.4-4.9) Chloride Level 100 mEQ/L (98-107) Carbon Dioxide Level 25 mEQ/L (20-30) Anion Gap 14 (5-15) Blood Urea Nitrogen 73 mg/dL (7-23) H Creatinine 1.6 mg/dL (0.5-0.9) H Estimat Glomerular Filtration Rate 31.8 mL/min (>60) Glucose Level 200 mg/dL (74-106) H Calcium Level 7.8 mg/dL (8.6-10.2) L Phosphorus Level 4.7 mg/dL (2.5-4.8) Magnesium Level 2.1 mg/dL (1.7-2.5) Total Bilirubin 0.7 mg/dL (0.0-1.2) Aspartate Amino Transf (AST/SGOT) 19 U/L (5-40) Alanine Aminotransferase (ALT/SGPT) 8 U/L (3-33) Alkaline Phosphatase 88 U/L (35-104) Total Protein 5.5 g/dL (6.6-8.7) L Albumin 1.5 g/dL (3.5-5.2) L Globulin 4.0 g/dL Albumin/Globulin Ratio 0.3 (1.0-2.7) L Triglycerides Level 114 mg/dL (< 150) Arterial Blood pH 7.418 (7.350-7.450) Arterial Blood Partial Pressure CO2 44.4 mmHg (35.0-45.0) Arterial Blood Partial Pressure O2 88.7 mmHg (75.0-100.0) Arterial Blood HCO3 28.0 mmol/L (22.0-26.0) H Arterial Blood Oxygen Saturation 95.9 % (92.0-98.0) Arterial Blood Base Excess 3.1 Ok Test Positive Current Medications Medications (Trade) Dose Ordered Sig/Lisbeth Route PRN Reason Start Time Stop Time Status Last Admin Dose Admin Acetaminophen (Tylenol) 650 mg Q4H PRN ORAL fever 12/17/16 08:00 01/16/17 07:59 12/21/16 08:19 Amlodipine Besylate (Norvasc) 2.5 mg DAILY ORAL 12/18/16 09:00 01/17/17 08:59 12/21/16 08:18 Dextrose (D10w) 1,000 ml @ 80 mls/hr [id number] PRN IV If TPN interrupted 12/17/16 07:30 01/16/17 07:29 Dextrose (Dextrose 50%) STAT PRN IV Hypoglycemia 12/17/16 07:30 01/16/17 07:29 Fat Emulsion Intravenous 240 ml/Amino Acids/ Electrolytes/ Dextrose 2,232 ml @ 93 mls/hr Q24H IV 12/20/16 21:00 12/21/16 20:59 12/20/16 21:02 Fat Emulsion Intravenous/Amino Acids/ Electrolytes/ Dextrose (Intralipids/Tpn) 2,232 ml @ 93 mls/hr Q24H IV 12/21/16 21:00 01/20/17 20:59 Fluconazole/ Sodium Chloride 100 ml @ 100 mls/hr Q24H IV 12/19/16 23:00 12/26/16 22:59 12/20/16 23:10 Furosemide (Lasix) 40 mg ONCE ONCE IV 12/21/16 19:45 12/21/16 19:46 UNV Heparin Sodium/ Dextrose (Heparin) 500 ml @ 34.201 mls/ hr adjust per protocol IV 12/21/16 05:42 01/17/17 12:29 12/21/16 14:53 Hydralazine HCl 10 mg 10 mg Q4H PRN IV sbp > 160 12/21/16 10:15 01/20/17 10:14 12/21/16 17:35 Insulin Aspart (NovoLOG) No Dose Q6HR SUBQ 12/17/16 12:00 01/16/17 11:59 12/21/16 17:36 Meropenem 500 mg/ Sodium Chloride 55 ml @ 110 mls/hr Q12HR@0600,1800 IV 12/19/16 18:00 12/24/16 17:59 12/21/16 17:35 Morphine Sulfate (Morphine Sulfate) 4 mg Q4H PRN IVP Severe Pain (Pain Scale 7-10) 12/19/16 10:30 12/24/16 07:29 12/21/16 17:42 Nitroglycerin (Nitro-Bid) 1 inch TID@0600,1200,1800 TOPIC 12/22/16 06:00 01/21/17 05:59 UNV Nitroglycerin (Ntg) 0.4 mg Q5M X 3 DOSES PRN SL Prn Chest Pain 12/17/16 07:30 01/16/17 07:29 Ondansetron HCl (Zofran) 4 mg Q6H PRN IVP Nausea & Vomiting 12/17/16 07:30 01/16/17 07:29 Pantoprazole 40 mg 40 mg DAILY IVP 12/20/16 09:00 01/19/17 08:59 12/21/16 08:18 Phytonadione (Vitamin K) 10 mg QWEEK SUBQ 12/23/16 21:00 01/22/17 20:59 Polyethylene Glycol (Miralax) 17 gm HSPRN PRN ORAL Constipation 12/17/16 07:30 01/16/17 07:29 Sucralfate (Carafate) 1 gm FOUR TIMES A DAY ORAL 12/17/16 09:00 01/16/17 08:59 12/21/16 17:35 Temazepam (Restoril) 15 mg HSPRN PRN ORAL Insomnia 12/17/16 07:30 12/24/16 07:29 12/20/16 20:20 OSCAR ANDERSON M.D. Dec 21, 2016 19:50
[2016-12-21] MEDS: Fat Emulsion Iv 20% 240 ML in Tpn 1,992 ML IV SCH (20:58)
[2016-12-21] MEDS ORDERED: Heparin 25,000u/D5W 500ml 500 ML IV SCH (22:30)
[2016-12-22] VITALS (24 sets, daily range): BP systolic 134–191; BP diastolic 34–53
[2016-12-22] MEDS: Morphine Sulfate 4mg/ml Inj IVP PRN ×2 (01:17→13:11)
[2016-12-22 04:59] LABS: BASOPHILS % (AUTO) 0.4 % (0.0-2.0); EOSINOPHILS % (AUTO) 1.4 % (0.0-3.0); LYMPHOCYTES % (AUTO) 9.6 % (20.0-45.0); MEAN CORPUSCULAR HEMOGLOBIN 29.5 PG (27.0-31.0); MEAN CORPUSCULAR HGB CONC 31.4 G/DL (32.0-36.0); MEAN CORPUSCULAR VOLUME 94 FL (80-99); MONOCYTES % (AUTO) 11.6 % (1.0-10.0); NEUTROPHILS % (AUTO) 77.1 % (45.0-75.0); PLATELET COUNT 267 K/UL (150-450); RED BLOOD COUNT 2.89 M/UL (4.20-5.40); RED CELL DISTRIBUTION WIDTH 14.1 % (11.6-14.8); WHITE BLOOD COUNT 14.5 K/UL (4.8-10.8)
[2016-12-22 05:16] LABS: ALBUMIN/GLOBULIN RATIO 0.4 (1.0-2.7); CREATININE 1.2 mg/dL (0.5-0.9); GLOMERULAR FILTRATION RATE 44.4 mL/min (>60); MAGNESIUM 2.4 mg/dL (1.7-2.5); PHOSPHORUS 4.6 mg/dL (2.5-4.8); POTASSIUM 3.4 mEQ/L (3.4-4.9); TOTAL PROTEIN 5.8 g/dL (6.6-8.7)
[2016-12-22] MEDS: Meropenem 500 MG in NS 55 ML IV SCH ×2 (06:10→17:43)
[2016-12-22] MEDS: Nitroglycerin 2% oint pkt TOPIC SCH ×3 (06:10→17:43)
[2016-12-22] MEDS: NovoLOG Insulin Flexpen SUBQ SCH ×3 (06:10→17:46)
[2016-12-22] MEDS: Heparin 25,000u/D5W 500ml 500 ML IV SCH ×3 (06:56→23:21)
--- NOTE | 2016-12-22 06:59 | Pulmonolgy Critical Care Note ---
Critical Care - Asmt/Plan Assessment/Plan: ASSESSMENT acute respiratory failure, requiring intubation sepsis pancreatitis cholelithiasis acute renal failure permanent A fib s/p AVR s/p MVR pulmonary HTN CHF coagulopathy hypoalbuminemia PLAN OF CARE ICU care vent cre pulmonary toilet weaning protocol as tolerated ABG on SIMV this am stable, mild hypercapnia, continue weaning protocol CXR and ABG in am Pancreatitis recurrent GI follows pancreatic enzymes trending down as well as leukocytosis ( this am slight trend up) CT A/P : Findings compatible with marked worsening of acute pancreatitis MRCP : Cholelithiasis. There is also a calculus within the duct adjacent to the gallbladder abdominal US of liver : Incidental finding of cholelithiasis and mild gallbladder wall thickening NPO TPN continue - per GI dosing per GI no evidence of choledocholithiasis surgery follows, no surgery planned abx, ID follows sputum cx + Mandy, blood cx negative, stool C dif negative renal parameters improving, creat down to 1.2 renal US- no hydro nephro follows monitor renal parameters, lytes BP management with CCB and Hydralazine prn, ( off BB due to jemima), need further optimization as per cardio stable BS management with SS of insulin, QoH0f-2.8 at goal cardio follows a/coagulation with heparin drip , GI prophylaxis skin care case discussed and evaluated by supervising physician Critical Care - Objective Last 24 Hour Vital Signs Date Time Temp Pulse Resp B/P Pulse Ox O2 Delivery O2 Flow Rate FiO2 12/22/16 06:10 160/53 12/22/16 04:52 73 16 30 12/22/16 04:00 72 12/22/16 04:00 30 12/22/16 02:56 73 15 30 12/22/16 01:00 75 16 30 12/22/16 00:00 30 12/22/16 00:00 98.9 77 20 168/49 99 Mechanical Ventilator 30 12/22/16 00:00 92 12/21/16 23:00 77 17 157/49 99 Mechanical Ventilator 30 12/21/16 22:49 72 16 30 12/21/16 22:46 179/50 12/21/16 22:00 71 17 174/46 99 Mechanical Ventilator 30 12/21/16 21:00 73 17 174/46 100 Mechanical Ventilator 30 12/21/16 20:46 86 19 30 12/21/16 20:00 99.9 77 20 183/50 99 Mechanical Ventilator 30 12/21/16 20:00 76 12/21/16 19:12 85 22 30 12/21/16 19:00 75 23 175/49 100 Mechanical Ventilator 30 12/21/16 18:12 98.7 12/21/16 18:00 74 24 172/46 100 Mechanical Ventilator 30 12/21/16 17:47 30 12/21/16 17:35 175/49 12/21/16 17:00 66 24 30 12/21/16 17:00 75 24 175/49 100 Mechanical Ventilator 30 12/21/16 16:00 30 12/21/16 16:00 98.7 59 17 159/53 98 Mechanical Ventilator 30 12/21/16 16:00 61 12/21/16 15:21 58 16 30 12/21/16 15:00 60 17 157/50 98 Mechanical Ventilator 30 12/21/16 14:00 61 18 152/48 98 Mechanical Ventilator 30 12/21/16 13:10 60 16 30 12/21/16 13:00 57 18 150/52 98 Mechanical Ventilator 30 12/21/16 12:00 98.4 59 17 153/44 99 Mechanical Ventilator 30 12/21/16 12:00 67 12/21/16 11:00 55 17 159/44 99 Mechanical Ventilator 30 12/21/16 11:00 56 17 30 12/21/16 10:19 30 12/21/16 10:00 54 16 146/41 99 Mechanical Ventilator 30 12/21/16 09:18 98.9 12/21/16 09:14 61 14 30 12/21/16 09:12 98 12/21/16 09:00 98.9 54 16 159/49 98 Mechanical Ventilator 30 12/21/16 08:29 30 12/21/16 08:18 62 169/49 12/21/16 08:00 47 12/21/16 08:00 30 12/21/16 08:00 100.5 60 17 169/49 98 Mechanical Ventilator 30 12/21/16 07:00 54 16 157/43 98 Mechanical Ventilator 30 12/21/16 07:00 54 15 30 Status: awake - alert, responsive, other - on ventilator Condition: critical HEENT: atraumatic, normocephalic, other - OP with ET in palce, NGT with TF Lungs: other - decreased BS at bases Heart: HR/BP stable - A fib on tele , other - LUE PICC intact Abdomen: soft - mild distention , non-tender, active bowel sounds Extremities: other - +1 edema BLE Accucheck: 182 Critical Care - Subjective ROS Limited/Unobtainable: Yes Interval Events: leukocytosis trending down,afebrile no signs of respiratory distress on current settings on weaning protocol daughter at the bedside Condition: critical IV Access: PICC EKG Rhythm: Atrial Fibrillation FI02: 30 Vent Support Breath Rate: 15 Vent Support Mode: IMV/SIMV Vent Tidal Volume: 600 Sputum Amount: Moderate PEEP: 5.0 PIP: 53 Fluids: TPN at 93 cc/hr Drips: Heparin drip at 22 u/kg/hr I&O: Intake and Output 12/21/16 12/22/16 19:00 07:00 Intake Total 1534.794 ml 988.158 ml Output Total 1130 ml 1350 ml Balance 404.794 ml -361.842 ml IV Total 1534.794 ml 928.158 ml Other 60 ml Output Urine Total 1130 ml 1350 ml # Bowel Movements 3 CXR: Stable bilateral congestive changes Decreased in subsegmental atelectasis left lung base ET-Tube: 7.5 ET Position: 22 Nazario (SkyTonya mayorga NP Dec 22, 2016 06:59
[2016-12-22] MEDS ORDERED: Heparin 5000 units/ml inj IV ONE (07:00)
--- NOTE | 2016-12-22 08:19 | General Progress Note ---
Progress Note Progress Note pt is followed for gallstone pancreatitis, complicated by respiratory failure. Being weaned from ventilator. wake, alert, responding appropriately Vital Sign - Last 24 Hours 12/21/16 12/21/16 12/21/16 12/21/16 08:18 08:29 09:00 09:12 Temp 98.9 Pulse 62 54 Resp 16 B/P 169/49 159/49 Pulse Ox 98 98 O2 Delivery Mechanical Ventilator FiO2 30 30 12/21/16 12/21/16 12/21/16 12/21/16 09:14 09:18 10:00 10:19 Temp 98.9 Pulse 61 54 Resp 14 16 B/P 146/41 Pulse Ox 99 O2 Delivery Mechanical Ventilator FiO2 30 30 30 12/21/16 12/21/16 12/21/16 12/21/16 11:00 11:00 12:00 12:00 Temp 98.4 Pulse 56 55 67 59 Resp 17 17 17 B/P 159/44 153/44 Pulse Ox 99 99 O2 Delivery Mechanical Ventilator Mechanical Ventilator FiO2 30 30 30 12/21/16 12/21/16 12/21/16 12/21/16 13:00 13:10 14:00 15:00 Pulse 57 60 61 60 Resp 18 16 18 17 B/P 150/52 152/48 157/50 Pulse Ox 98 98 98 O2 Delivery Mechanical Ventilator Mechanical Ventilator Mechanical Ventilator FiO2 30 30 30 30 12/21/16 12/21/16 12/21/16 12/21/16 15:21 16:00 16:00 16:00 Temp 98.7 Pulse 58 61 59 Resp 16 17 B/P 159/53 Pulse Ox 98 O2 Delivery Mechanical Ventilator FiO2 30 30 30 12/21/16 12/21/16 12/21/16 12/21/16 17:00 17:00 17:35 17:47 Pulse 75 66 Resp 24 24 B/P 175/49 175/49 Pulse Ox 100 O2 Delivery Mechanical Ventilator FiO2 30 30 30 12/21/16 12/21/16 12/21/16 12/21/16 18:00 18:12 19:00 19:12 Temp 98.7 Pulse 74 75 85 Resp 24 23 22 B/P 172/46 175/49 Pulse Ox 100 100 O2 Delivery Mechanical Ventilator Mechanical Ventilator FiO2 30 30 30 12/21/16 12/21/16 12/21/16 12/21/16 20:00 20:00 20:46 21:00 Temp 99.9 Pulse 76 77 86 73 Resp 20 19 17 B/P 183/50 174/46 Pulse Ox 99 100 O2 Delivery Mechanical Ventilator Mechanical Ventilator FiO2 30 30 30 12/21/16 12/21/16 12/21/16 12/21/16 22:00 22:46 22:49 23:00 Pulse 71 72 77 Resp 17 16 17 B/P 174/46 179/50 157/49 Pulse Ox 99 99 O2 Delivery Mechanical Ventilator Mechanical Ventilator FiO2 30 30 30 12/22/16 12/22/16 12/22/16 12/22/16 00:00 00:00 00:00 01:00 Temp 98.9 Pulse 92 77 77 Resp 20 28 B/P 168/49 177/53 Pulse Ox 99 98 O2 Delivery Mechanical Ventilator Mechanical Ventilator FiO2 30 30 30 12/22/16 12/22/16 12/22/16 12/22/16 01:00 02:00 02:56 03:00 Pulse 75 73 73 70 Resp 16 28 15 28 B/P 153/52 166/50 Pulse Ox 98 98 O2 Delivery Mechanical Ventilator Mechanical Ventilator FiO2 30 30 30 30 12/22/16 12/22/16 12/22/16 12/22/16 04:00 04:00 04:00 04:52 Temp 99.5 Pulse 72 70 73 Resp 19 16 B/P 166/49 Pulse Ox 98 O2 Delivery Mechanical Ventilator FiO2 30 30 30 12/22/16 12/22/16 12/22/16 12/22/16 05:00 06:00 06:10 07:00 Pulse 65 62 63 Resp 28 16 15 B/P 160/53 152/42 160/53 Pulse Ox 98 98 O2 Delivery Mechanical Ventilator Mechanical Ventilator FiO2 30 30 30 12/22/16 12/22/16 12/22/16 07:00 08:00 08:00 Temp 99.4 Pulse 68 84 Resp 16 18 B/P 152/42 181/52 Pulse Ox 98 100 O2 Delivery Mechanical Ventilator Mechanical Ventilator FiO2 30 30 30 Intake and Output 12/21/16 12/21/16 12/22/16 15:00 23:00 07:00 Intake Total 970.99 ml 1126.145 ml 1040.774 ml Output Total 680 ml 1225 ml 1345 ml Balance 290.99 ml -98.855 ml -304.226 ml Laboratory Tests Test 12/21/16 12:30 12/21/16 20:10 12/22/16 04:40 Activated Partial Thromboplast Time 63 SEC (23-33) H > 150 SEC (23-33) *H 49 SEC (23-33) H White Blood Count 14.5 K/UL (4.8-10.8) H Red Blood Count 2.89 M/UL (4.20-5.40) L Hemoglobin 8.5 G/DL (12.0-16.0) L Hematocrit 27.1 % (37.0-47.0) L Mean Corpuscular Volume 94 FL (80-99) Mean Corpuscular Hemoglobin 29.5 PG (27.0-31.0) Mean Corpuscular Hemoglobin Concent 31.4 G/DL (32.0-36.0) L Red Cell Distribution Width 14.1 % (11.6-14.8) Platelet Count 267 K/UL (150-450) Mean Platelet Volume 8.0 FL (6.5-10.1) Neutrophils (%) (Auto) 77.1 % (45.0-75.0) H Lymphocytes (%) (Auto) 9.6 % (20.0-45.0) L Monocytes (%) (Auto) 11.6 % (1.0-10.0) H Eosinophils (%) (Auto) 1.4 % (0.0-3.0) Basophils (%) (Auto) 0.4 % (0.0-2.0) Sodium Level 145 mEQ/L (135-145) Potassium Level 3.4 mEQ/L (3.4-4.9) Chloride Level 103 mEQ/L (98-107) Carbon Dioxide Level 29 mEQ/L (20-30) Anion Gap 13 (5-15) Blood Urea Nitrogen 68 mg/dL (7-23) H Creatinine 1.2 mg/dL (0.5-0.9) H Estimat Glomerular Filtration Rate 44.4 mL/min (>60) Glucose Level 173 mg/dL (74-106) H Calcium Level 8.0 mg/dL (8.6-10.2) L Phosphorus Level 4.6 mg/dL (2.5-4.8) Magnesium Level 2.4 mg/dL (1.7-2.5) Total Bilirubin 1.0 mg/dL (0.0-1.2) Aspartate Amino Transf (AST/SGOT) 26 U/L (5-40) Alanine Aminotransferase (ALT/SGPT) 9 U/L (3-33) Alkaline Phosphatase 90 U/L (35-104) Total Protein 5.8 g/dL (6.6-8.7) L Albumin 1.9 g/dL (3.5-5.2) L Globulin 3.9 g/dL Albumin/Globulin Ratio 0.4 (1.0-2.7) L Plan wean as tolerated eventual lap cholecystectomy LISA LICEA Dec 22, 2016 08:19
[2016-12-22] MEDS: Sucralfate 1gm tab ORAL SCH ×4 (08:23→21:24)
[2016-12-22] MEDS: Pantoprazole Inj IVP SCH (08:24)
[2016-12-22 09:36] LABS: ABG ALLEN TEST POSITIVE; ABG BASE EXCESS 4.5; ABG PCO2 49.6 mmHg (35.0-45.0)
--- NOTE | 2016-12-22 10:27 | Diagnostic Imaging Report ---
Indication: DYSPNEA Technique: XRAY CHEST 1 V Comparison:12/21/2012 Findings: The heart remains enlarged. A left arm PICC line remains in place. Nasogastric tube and endotracheal tubes remain. Pulmonary vascular redistribution with interstitial disease is essentially unchanged. Patchy airspace disease is also noted in the left upper and lower lung. Impression: Cardiomegaly with congestive heart failure and interstitial edema. Patchy airspace disease on the left. This may represent localized pulmonary edema or superimposed pneumonia. Endotracheal and nasogastric tubes. Left arm PICC line.
--- NOTE | 2016-12-22 10:53 | General Progress Note ---
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 on anticoagulation Pulmonary HTN HypoAlbuminemia Plan: Per GI / Surgery On TPN Keep BP under control Avoid nephrotoxics K supplement as needed monitor renal parameters Subjective ROS Limited/Unobtainable: Yes Allergies: Coded Allergies: No Known Allergies (Unverified , 09/28/14) Objective Last 24 Hour Vital Signs Date Time Temp Pulse Resp B/P Pulse Ox O2 Delivery O2 Flow Rate FiO2 12/22/16 10:42 84 191/43 12/22/16 10:00 80 29 191/43 95 Mechanical Ventilator 30 12/22/16 09:00 98 12/22/16 09:00 84 24 183/40 97 Mechanical Ventilator 30 12/22/16 09:00 85 24 30 12/22/16 08:24 84 186/46 12/22/16 08:23 186/46 12/22/16 08:00 99.4 84 18 181/52 100 Mechanical Ventilator 30 12/22/16 08:00 79 12/22/16 08:00 30 12/22/16 07:00 68 16 152/42 98 Mechanical Ventilator 30 12/22/16 07:00 63 15 30 12/22/16 06:10 160/53 12/22/16 06:00 62 16 152/42 98 Mechanical Ventilator 30 12/22/16 05:00 65 28 160/53 98 Mechanical Ventilator 30 12/22/16 04:52 73 16 30 12/22/16 04:00 99.5 70 19 166/49 98 Mechanical Ventilator 30 12/22/16 04:00 72 12/22/16 04:00 30 12/22/16 03:00 70 28 166/50 98 Mechanical Ventilator 30 12/22/16 02:56 73 15 30 12/22/16 02:00 73 28 153/52 98 Mechanical Ventilator 30 12/22/16 01:00 75 16 30 12/22/16 01:00 77 28 177/53 98 Mechanical Ventilator 30 12/22/16 00:00 30 12/22/16 00:00 98.9 77 20 168/49 99 Mechanical Ventilator 30 12/22/16 00:00 92 12/21/16 23:00 77 17 157/49 99 Mechanical Ventilator 30 12/21/16 22:49 72 16 30 12/21/16 22:46 179/50 12/21/16 22:00 71 17 174/46 99 Mechanical Ventilator 30 12/21/16 21:00 73 17 174/46 100 Mechanical Ventilator 30 12/21/16 20:46 86 19 30 12/21/16 20:00 99.9 77 20 183/50 99 Mechanical Ventilator 30 12/21/16 20:00 76 12/21/16 19:12 85 22 30 12/21/16 19:00 75 23 175/49 100 Mechanical Ventilator 30 12/21/16 18:12 98.7 12/21/16 18:00 74 24 172/46 100 Mechanical Ventilator 30 12/21/16 17:47 30 12/21/16 17:35 175/49 12/21/16 17:00 66 24 30 12/21/16 17:00 75 24 175/49 100 Mechanical Ventilator 30 12/21/16 16:00 30 12/21/16 16:00 98.7 59 17 159/53 98 Mechanical Ventilator 30 12/21/16 16:00 61 12/21/16 15:21 58 16 30 12/21/16 15:00 60 17 157/50 98 Mechanical Ventilator 30 12/21/16 14:00 61 18 152/48 98 Mechanical Ventilator 30 12/21/16 13:10 60 16 30 12/21/16 13:00 57 18 150/52 98 Mechanical Ventilator 30 12/21/16 12:00 98.4 59 17 153/44 99 Mechanical Ventilator 30 12/21/16 12:00 67 12/21/16 11:00 55 17 159/44 99 Mechanical Ventilator 30 12/21/16 11:00 56 17 30 Intake and Output 12/21/16 12/22/16 18:59 06:59 Intake Total 1532.163 ml 1603.115 ml Output Total 1180 ml 2080 ml Balance 352.163 ml -476.885 ml IV Total 1532.163 ml 1543.115 ml Other 60 ml Output Urine Total 1180 ml 2080 ml # Bowel Movements 3 Laboratory Tests 12/21/16 12:30: Activated Partial Thromboplast Time 63H 12/21/16 20:10: Activated Partial Thromboplast Time > 150*H 12/22/16 04:40: Activated Partial Thromboplast Time 49H, White Blood Count 14.5H, Red Blood Count 2.89L, Hemoglobin 8.5L, Hematocrit 27.1L, Mean Corpuscular Volume 94, Mean Corpuscular Hemoglobin 29.5, Mean Corpuscular Hemoglobin Concent 31.4L, Red Cell Distribution Width 14.1, Platelet Count 267, Mean Platelet Volume 8.0, Neutrophils (%) (Auto) 77.1H, Lymphocytes (%) (Auto) 9.6L, Monocytes (%) (Auto) 11.6H, Eosinophils (%) (Auto) 1.4, Basophils (%) (Auto) 0.4, Sodium Level 145, Potassium Level 3.4, Chloride Level 103, Carbon Dioxide Level 29, Anion Gap 13, Blood Urea Nitrogen 68H, Creatinine 1.2H, Estimat Glomerular Filtration Rate 44.4, Glucose Level 173H, Calcium Level 8.0L, Phosphorus Level 4.6, Magnesium Level 2.4, Total Bilirubin 1.0, Aspartate Amino Transf (AST/SGOT) 26, Alanine Aminotransferase (ALT/SGPT) 9, Alkaline Phosphatase 90, Total Protein 5.8L, Albumin 1.9L, Globulin 3.9, Albumin/Globulin Ratio 0.4L 12/22/16 09:24: Arterial Blood pH 7.405, Arterial Blood Partial Pressure CO2 49.6H, Arterial Blood Partial Pressure O2 99.6, Arterial Blood HCO3 30.4H, Arterial Blood Oxygen Saturation , Arterial Blood Base Excess 4.5, Ok Test Positive Height (Feet): 5 Height (Inches): 1.00 Weight (Pounds): 145 General Appearance: no apparent distress Cardiovascular: tachycardia Respiratory/Chest: decreased breath sounds Abdomen: distended Objective other PE not changed KAMINI SNOW Dec 22, 2016 10:53
--- NOTE | 2016-12-22 10:57 | Wound Care Consultation ---
Wound Assessment Wound Assessment : Wound Number: #1 Wound Present on Admission: No New Wound: Yes Status Change of Wound: No Wound Location Body Site Modif: mid Wound Location Body Site: sacral Wound Type: pressure ulcer Jack Test: Does not Jack Pressure Ulcer Stage: II - two sites very close in proximity. Wound Thickness: Partial Thickness Wound Length: 3.0 Wound Width: 3.0 Wound Depth: <0.1 Percent of Wound [place]/Red: 100 Wound Drainage Description: Serosanguineous Wound Drainage Amount: Scant Wound Drainage Odor: None/Absent Tissue Surrounding Wound: Denuded - site noted with ruptured denuded blister Wound General Appearance: Reddened Wound Comment #1 Mid sacral stage II . upon assessment noted denuded skin previous blister site. Recommendation. -Local wound care as ordered. -Turn and reposition. -Keep clean and dry. - Apply low air loss overlay SPR mattress. -Optimize nutrition. -Offload affected site. -Assess and notify MD for any further changes in skin noted. SWAPNIL EDWARDS Dec 22, 2016 10:57
[2016-12-22] MEDS ORDERED: Heparin 25,000u/D5W 500ml 500 ML IV SCH (15:15)
--- NOTE | 2016-12-22 15:30 | General Progress Note ---
Assessment/Plan Assessment/Plan Assessment Pancreatitis - resolving cholelithiasis, no e/o choledocholithiasis Leukocytosis improving Respiratory failure Azotemia improving Anemia colon polyp Guarded Assessment/Plan TPN abx follow labs supportive care repeat CT Saturday surgical planning Subjective Allergies: Coded Allergies: No Known Allergies (Unverified , 09/28/14) Subjective above noted denies abd pain intubated d/w RN On TPN Objective Last 24 Hour Vital Signs Date Time Temp Pulse Resp B/P Pulse Ox O2 Delivery O2 Flow Rate FiO2 12/22/16 15:00 79 21 158/34 97 Mechanical Ventilator 30 12/22/16 15:00 75 22 30 12/22/16 14:00 85 23 157/49 97 Mechanical Ventilator 30 12/22/16 13:41 98.8 12/22/16 13:00 81 24 30 12/22/16 13:00 86 26 178/41 95 Mechanical Ventilator 30 12/22/16 12:37 178/46 12/22/16 12:00 87 12/22/16 12:00 30 12/22/16 12:00 98.8 84 23 178/46 96 Mechanical Ventilator 30 12/22/16 11:22 173/47 12/22/16 11:00 84 28 173/47 97 Mechanical Ventilator 30 12/22/16 10:56 87 26 30 12/22/16 10:42 84 191/43 12/22/16 10:00 80 29 191/43 95 Mechanical Ventilator 30 12/22/16 09:00 98 12/22/16 09:00 84 24 183/40 97 Mechanical Ventilator 30 12/22/16 09:00 85 24 30 12/22/16 08:24 84 186/46 12/22/16 08:23 186/46 12/22/16 08:00 99.4 84 18 181/52 100 Mechanical Ventilator 30 12/22/16 08:00 79 12/22/16 08:00 30 12/22/16 07:00 68 16 152/42 98 Mechanical Ventilator 30 12/22/16 07:00 63 15 30 12/22/16 06:10 160/53 12/22/16 06:00 62 16 152/42 98 Mechanical Ventilator 30 12/22/16 05:00 65 28 160/53 98 Mechanical Ventilator 30 12/22/16 04:52 73 16 30 12/22/16 04:00 99.5 70 19 166/49 98 Mechanical Ventilator 30 12/22/16 04:00 72 12/22/16 04:00 30 12/22/16 03:00 70 28 166/50 98 Mechanical Ventilator 30 12/22/16 02:56 73 15 30 12/22/16 02:00 73 28 153/52 98 Mechanical Ventilator 30 12/22/16 01:00 75 16 30 12/22/16 01:00 77 28 177/53 98 Mechanical Ventilator 30 12/22/16 00:00 30 12/22/16 00:00 98.9 77 20 168/49 99 Mechanical Ventilator 30 12/22/16 00:00 92 12/21/16 23:00 77 17 157/49 99 Mechanical Ventilator 30 12/21/16 22:49 72 16 30 12/21/16 22:46 179/50 12/21/16 22:00 71 17 174/46 99 Mechanical Ventilator 30 12/21/16 21:00 73 17 174/46 100 Mechanical Ventilator 30 12/21/16 20:46 86 19 30 12/21/16 20:00 99.9 77 20 183/50 99 Mechanical Ventilator 30 12/21/16 20:00 76 12/21/16 19:12 85 22 30 12/21/16 19:00 75 23 175/49 100 Mechanical Ventilator 30 12/21/16 18:00 74 24 172/46 100 Mechanical Ventilator 30 12/21/16 17:47 30 12/21/16 17:35 175/49 12/21/16 17:00 66 24 30 12/21/16 17:00 75 24 175/49 100 Mechanical Ventilator 30 12/21/16 16:00 30 12/21/16 16:00 98.7 59 17 159/53 98 Mechanical Ventilator 30 12/21/16 16:00 61 Intake and Output 12/21/16 12/22/16 19:00 07:00 Intake Total 1534.794 ml 1603.115 ml Output Total 1130 ml 2120 ml Balance 404.794 ml -516.885 ml IV Total 1534.794 ml 1543.115 ml Other 60 ml Output Urine Total 1130 ml 2120 ml # Bowel Movements 3 Laboratory Tests 12/21/16 20:10: Activated Partial Thromboplast Time > 150*H 12/22/16 04:40: Activated Partial Thromboplast Time 49H, White Blood Count 14.5H, Red Blood Count 2.89L, Hemoglobin 8.5L, Hematocrit 27.1L, Mean Corpuscular Volume 94, Mean Corpuscular Hemoglobin 29.5, Mean Corpuscular Hemoglobin Concent 31.4L, Red Cell Distribution Width 14.1, Platelet Count 267, Mean Platelet Volume 8.0, Neutrophils (%) (Auto) 77.1H, Lymphocytes (%) (Auto) 9.6L, Monocytes (%) (Auto) 11.6H, Eosinophils (%) (Auto) 1.4, Basophils (%) (Auto) 0.4, Sodium Level 145, Potassium Level 3.4, Chloride Level 103, Carbon Dioxide Level 29, Anion Gap 13, Blood Urea Nitrogen 68H, Creatinine 1.2H, Estimat Glomerular Filtration Rate 44.4, Glucose Level 173H, Calcium Level 8.0L, Phosphorus Level 4.6, Magnesium Level 2.4, Total Bilirubin 1.0, Aspartate Amino Transf (AST/SGOT) 26, Alanine Aminotransferase (ALT/SGPT) 9, Alkaline Phosphatase 90, Total Protein 5.8L, Albumin 1.9L, Globulin 3.9, Albumin/Globulin Ratio 0.4L 12/22/16 09:24: Arterial Blood pH 7.405, Arterial Blood Partial Pressure CO2 49.6H, Arterial Blood Partial Pressure O2 99.6, Arterial Blood HCO3 30.4H, Arterial Blood Oxygen Saturation , Arterial Blood Base Excess 4.5, Ok Test Positive 12/22/16 13:15: Activated Partial Thromboplast Time 142H Height (Feet): 5 Height (Inches): 1.00 Weight (Pounds): 145 Objective Elderly woman NCAT, intubated responsive supple CTA RRR Abd soft NT distended no edema MAXIME EVANS Dec 22, 2016 15:30
--- NOTE | 2016-12-22 16:04 | Cardiology Progress Note ---
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 Subjective ROS Limited/Unobtainable: Yes Subjective Pt intubated/ sedated Objective Last 24 Hour Vital Signs Date Time Temp Pulse Resp B/P Pulse Ox O2 Delivery O2 Flow Rate FiO2 12/22/16 15:00 79 21 158/34 97 Mechanical Ventilator 30 12/22/16 15:00 75 22 30 12/22/16 14:00 85 23 157/49 97 Mechanical Ventilator 30 12/22/16 13:41 98.8 12/22/16 13:00 81 24 30 12/22/16 13:00 86 26 178/41 95 Mechanical Ventilator 30 12/22/16 12:37 178/46 12/22/16 12:00 87 12/22/16 12:00 30 12/22/16 12:00 98.8 84 23 178/46 96 Mechanical Ventilator 30 12/22/16 11:22 173/47 12/22/16 11:00 84 28 173/47 97 Mechanical Ventilator 30 12/22/16 10:56 87 26 30 12/22/16 10:42 84 191/43 12/22/16 10:00 80 29 191/43 95 Mechanical Ventilator 30 12/22/16 09:00 98 12/22/16 09:00 84 24 183/40 97 Mechanical Ventilator 30 12/22/16 09:00 85 24 30 12/22/16 08:24 84 186/46 12/22/16 08:23 186/46 12/22/16 08:00 99.4 84 18 181/52 100 Mechanical Ventilator 30 12/22/16 08:00 79 12/22/16 08:00 30 12/22/16 07:00 68 16 152/42 98 Mechanical Ventilator 30 12/22/16 07:00 63 15 30 12/22/16 06:10 160/53 12/22/16 06:00 62 16 152/42 98 Mechanical Ventilator 30 12/22/16 05:00 65 28 160/53 98 Mechanical Ventilator 30 12/22/16 04:52 73 16 30 12/22/16 04:00 99.5 70 19 166/49 98 Mechanical Ventilator 30 12/22/16 04:00 72 12/22/16 04:00 30 12/22/16 03:00 70 28 166/50 98 Mechanical Ventilator 30 12/22/16 02:56 73 15 30 12/22/16 02:00 73 28 153/52 98 Mechanical Ventilator 30 12/22/16 01:00 75 16 30 12/22/16 01:00 77 28 177/53 98 Mechanical Ventilator 30 12/22/16 00:00 30 12/22/16 00:00 98.9 77 20 168/49 99 Mechanical Ventilator 30 12/22/16 00:00 92 12/21/16 23:00 77 17 157/49 99 Mechanical Ventilator 30 12/21/16 22:49 72 16 30 12/21/16 22:46 179/50 12/21/16 22:00 71 17 174/46 99 Mechanical Ventilator 30 12/21/16 21:00 73 17 174/46 100 Mechanical Ventilator 30 12/21/16 20:46 86 19 30 12/21/16 20:00 99.9 77 20 183/50 99 Mechanical Ventilator 30 12/21/16 20:00 76 12/21/16 19:12 85 22 30 12/21/16 19:00 75 23 175/49 100 Mechanical Ventilator 30 12/21/16 18:00 74 24 172/46 100 Mechanical Ventilator 30 12/21/16 17:47 30 12/21/16 17:35 175/49 12/21/16 17:00 66 24 30 12/21/16 17:00 75 24 175/49 100 Mechanical Ventilator 30 General Appearance: WD/WN, no apparent distress EENT: PERRL/EOMI, other - et tube Rhythm: Afib Cardiovascular: normal rate, no gallop/murmur, irregularly irregular Respiratory/Chest: lungs clear Abdomen: soft, hypoactive bowel sounds, distended Extremities: no swelling Intake and Output 12/21/16 12/22/16 19:00 07:00 Intake Total 1534.794 ml 1603.115 ml Output Total 1130 ml 2120 ml Balance 404.794 ml -516.885 ml IV Total 1534.794 ml 1543.115 ml Other 60 ml Output Urine Total 1130 ml 2120 ml # Bowel Movements 3 Laboratory Tests Test 12/21/16 20:10 12/22/16 04:40 12/22/16 09:24 12/22/16 13:15 Activated Partial Thromboplast Time > 150 SEC (23-33) *H 49 SEC (23-33) H 142 SEC (23-33) H White Blood Count 14.5 K/UL (4.8-10.8) H Red Blood Count 2.89 M/UL (4.20-5.40) L Hemoglobin 8.5 G/DL (12.0-16.0) L Hematocrit 27.1 % (37.0-47.0) L Mean Corpuscular Volume 94 FL (80-99) Mean Corpuscular Hemoglobin 29.5 PG (27.0-31.0) Mean Corpuscular Hemoglobin Concent 31.4 G/DL (32.0-36.0) L Red Cell Distribution Width 14.1 % (11.6-14.8) Platelet Count 267 K/UL (150-450) Mean Platelet Volume 8.0 FL (6.5-10.1) Neutrophils (%) (Auto) 77.1 % (45.0-75.0) H Lymphocytes (%) (Auto) 9.6 % (20.0-45.0) L Monocytes (%) (Auto) 11.6 % (1.0-10.0) H Eosinophils (%) (Auto) 1.4 % (0.0-3.0) Basophils (%) (Auto) 0.4 % (0.0-2.0) Sodium Level 145 mEQ/L (135-145) Potassium Level 3.4 mEQ/L (3.4-4.9) Chloride Level 103 mEQ/L (98-107) Carbon Dioxide Level 29 mEQ/L (20-30) Anion Gap 13 (5-15) Blood Urea Nitrogen 68 mg/dL (7-23) H Creatinine 1.2 mg/dL (0.5-0.9) H Estimat Glomerular Filtration Rate 44.4 mL/min (>60) Glucose Level 173 mg/dL (74-106) H Calcium Level 8.0 mg/dL (8.6-10.2) L Phosphorus Level 4.6 mg/dL (2.5-4.8) Magnesium Level 2.4 mg/dL (1.7-2.5) Total Bilirubin 1.0 mg/dL (0.0-1.2) Aspartate Amino Transf (AST/SGOT) 26 U/L (5-40) Alanine Aminotransferase (ALT/SGPT) 9 U/L (3-33) Alkaline Phosphatase 90 U/L (35-104) Total Protein 5.8 g/dL (6.6-8.7) L Albumin 1.9 g/dL (3.5-5.2) L Globulin 3.9 g/dL Albumin/Globulin Ratio 0.4 (1.0-2.7) L Arterial Blood pH 7.405 (7.350-7.450) Arterial Blood Partial Pressure CO2 49.6 mmHg (35.0-45.0) H Arterial Blood Partial Pressure O2 99.6 mmHg (75.0-100.0) Arterial Blood HCO3 30.4 mmol/L (22.0-26.0) H Arterial Blood Oxygen Saturation % (92.0-98.0) Arterial Blood Base Excess 4.5 Ok Test Positive TASHA CASTANEDA Dec 22, 2016 16:04
[2016-12-22] MEDS: Fat Emulsion Iv 20% 240 ML in Tpn 1,992 ML IV SCH (21:23)
[2016-12-23] VITALS (24 sets, daily range): BP systolic 130–172; BP diastolic 8–62
[2016-12-23] MEDS: NovoLOG Insulin Flexpen SUBQ SCH ×4 (01:02→17:49)
[2016-12-23 04:55] LABS: BASOPHILS % (AUTO) 0.8 % (0.0-2.0); EOSINOPHILS % (AUTO) 2.3 % (0.0-3.0); LYMPHOCYTES % (AUTO) 6.9 % (20.0-45.0); MEAN CORPUSCULAR HEMOGLOBIN 29.8 PG (27.0-31.0); MEAN CORPUSCULAR HGB CONC 31.4 G/DL (32.0-36.0); MEAN CORPUSCULAR VOLUME 95 FL (80-99); MEAN PLATELET VOLUME 7.7 FL (6.5-10.1); MONOCYTES % (AUTO) 9.8 % (1.0-10.0); NEUTROPHILS % (AUTO) 80.2 % (45.0-75.0); PLATELET COUNT 289 K/UL (150-450); RED BLOOD COUNT 2.72 M/UL (4.20-5.40); RED CELL DISTRIBUTION WIDTH 14.4 % (11.6-14.8); WHITE BLOOD COUNT 13.2 K/UL (4.8-10.8)
[2016-12-23 05:04] LABS: MAGNESIUM 2.3 mg/dL (1.7-2.5); PHOSPHORUS 4.1 mg/dL (2.5-4.8)
[2016-12-23 05:09] LABS: CALCIUM 8.2 mg/dL (8.6-10.2); GLOMERULAR FILTRATION RATE 54.8 mL/min (>60); POTASSIUM 3.7 mEQ/L (3.4-4.9)
[2016-12-23] MEDS: Nitroglycerin 2% oint pkt TOPIC SCH ×3 (06:48→17:48)
[2016-12-23] MEDS: Meropenem 500 MG in NS 55 ML IV SCH ×2 (06:48→17:47)
[2016-12-23] MEDS: Morphine Sulfate 4mg/ml Inj IVP PRN (07:50)
[2016-12-23] MEDS: Heparin 25,000u/D5W 500ml 500 ML IV SCH (08:12)
[2016-12-23] MEDS: Pantoprazole Inj IVP SCH (08:13)
[2016-12-23] MEDS: Sucralfate 1gm tab ORAL SCH ×4 (08:13→21:05)
--- NOTE | 2016-12-23 08:56 | Infectious Diseases Prog Note ---
Assessment/Plan Assessment/Plan A: Pancreatitis Cholelithiasis, Cholecystitis Mechanical mitral valve Atrial fibrillation Leukocytosis worsening Respiratory failure P; continue Meropenem last day, continue Diflucan Subjective ROS Limited/Unobtainable: Yes Constitutional: Reports: other - Tmax=99.5 Allergies: Coded Allergies: No Known Allergies (Unverified , 09/28/14) Objective Vital Signs Last 24 Hour Vital Signs Date Time Temp Pulse Resp B/P Pulse Ox O2 Delivery O2 Flow Rate FiO2 12/23/16 08:25 98.0 12/23/16 08:13 95 170/54 12/23/16 08:00 98.6 86 16 170/54 98 Mechanical Ventilator 30 12/23/16 08:00 30 12/23/16 07:00 73 15 153/44 98 Mechanical Ventilator 30 12/23/16 06:48 134/42 12/23/16 06:42 63 15 30 12/23/16 06:00 60 15 134/42 100 Mechanical Ventilator 30 12/23/16 05:13 84 21 30 12/23/16 05:00 61 15 148/41 100 Mechanical Ventilator 30 12/23/16 04:00 70 12/23/16 04:00 30 12/23/16 04:00 61 15 158/41 100 Mechanical Ventilator 30 12/23/16 03:00 70 15 144/40 100 Mechanical Ventilator 30 12/23/16 02:48 66 18 30 12/23/16 02:00 71 15 156/44 100 Mechanical Ventilator 30 12/23/16 01:00 98.0 71 15 159/62 100 Mechanical Ventilator 30 12/23/16 00:41 66 17 30 12/23/16 00:00 60 15 151/42 100 Mechanical Ventilator 30 12/23/16 00:00 30 12/23/16 00:00 60 12/22/16 23:00 58 15 135/39 100 Mechanical Ventilator 30 12/22/16 22:39 61 15 30 12/22/16 22:00 58 15 142/39 100 Mechanical Ventilator 30 12/22/16 21:25 61 141/42 12/22/16 21:00 60 15 141/42 100 Mechanical Ventilator 30 12/22/16 20:55 58 15 30 12/22/16 20:00 30 12/22/16 20:00 58 12/22/16 20:00 98.2 60 15 153/43 100 Mechanical Ventilator 30 12/22/16 19:05 62 15 30 12/22/16 19:00 60 15 151/42 100 Mechanical Ventilator 30 12/22/16 18:00 64 17 134/40 99 Mechanical Ventilator 30 12/22/16 17:43 156/49 12/22/16 17:00 73 15 30 12/22/16 17:00 75 20 156/49 97 Mechanical Ventilator 30 12/22/16 16:00 98.4 74 35 153/51 98 Mechanical Ventilator 30 12/22/16 16:00 73 12/22/16 16:00 30 12/22/16 15:00 79 21 158/34 97 Mechanical Ventilator 30 12/22/16 15:00 75 22 30 12/22/16 14:00 85 23 157/49 97 Mechanical Ventilator 30 12/22/16 13:00 81 24 30 12/22/16 13:00 86 26 178/41 95 Mechanical Ventilator 30 12/22/16 12:37 178/46 12/22/16 12:00 87 12/22/16 12:00 30 12/22/16 12:00 98.8 84 23 178/46 96 Mechanical Ventilator 30 12/22/16 11:22 173/47 12/22/16 11:00 84 28 173/47 97 Mechanical Ventilator 30 12/22/16 10:56 87 26 30 12/22/16 10:42 84 191/43 12/22/16 10:00 80 29 191/43 95 Mechanical Ventilator 30 12/22/16 09:00 98 12/22/16 09:00 84 24 183/40 97 Mechanical Ventilator 30 12/22/16 09:00 85 24 30 Height (Feet): 5 Height (Inches): 1.00 Weight (Pounds): 145 HEENT: other - orally intubated Respiratory/Chest: lungs clear, other - on ventilator Cardiovascular: irregularly irregular Abdomen: distended, other - NG to suction, on TPN Extremities: other - generalized edema Neurologic/Psychiatric: other - opens eyes only Laboratory Tests Test 12/22/16 09:24 12/22/16 13:15 12/22/16 21:30 12/23/16 03:53 Arterial Blood pH 7.405 (7.350-7.450) Arterial Blood Partial Pressure CO2 49.6 mmHg (35.0-45.0) H Arterial Blood Partial Pressure O2 99.6 mmHg (75.0-100.0) Arterial Blood HCO3 30.4 mmol/L (22.0-26.0) H Arterial Blood Oxygen Saturation % (92.0-98.0) Arterial Blood Base Excess 4.5 Ok Test Positive Activated Partial Thromboplast Time 142 SEC (23-33) H 115 SEC (23-33) H White Blood Count 13.2 K/UL (4.8-10.8) H Red Blood Count 2.72 M/UL (4.20-5.40) L Hemoglobin 8.1 G/DL (12.0-16.0) L Hematocrit 25.7 % (37.0-47.0) L Mean Corpuscular Volume 95 FL (80-99) Mean Corpuscular Hemoglobin 29.8 PG (27.0-31.0) Mean Corpuscular Hemoglobin Concent 31.4 G/DL (32.0-36.0) L Red Cell Distribution Width 14.4 % (11.6-14.8) Platelet Count 289 K/UL (150-450) Mean Platelet Volume 7.7 FL (6.5-10.1) Neutrophils (%) (Auto) 80.2 % (45.0-75.0) H Lymphocytes (%) (Auto) 6.9 % (20.0-45.0) L Monocytes (%) (Auto) 9.8 % (1.0-10.0) Eosinophils (%) (Auto) 2.3 % (0.0-3.0) Basophils (%) (Auto) 0.8 % (0.0-2.0) Sodium Level 148 mEQ/L (135-145) H Potassium Level 3.7 mEQ/L (3.4-4.9) Chloride Level 106 mEQ/L (98-107) Carbon Dioxide Level 30 mEQ/L (20-30) Anion Gap 12 (5-15) Blood Urea Nitrogen 58 mg/dL (7-23) H Creatinine 1.0 mg/dL (0.5-0.9) H Estimat Glomerular Filtration Rate 54.8 mL/min (>60) Glucose Level 182 mg/dL (74-106) H Calcium Level 8.2 mg/dL (8.6-10.2) L Phosphorus Level 4.1 mg/dL (2.5-4.8) Magnesium Level 2.3 mg/dL (1.7-2.5) Test 12/23/16 06:35 Activated Partial Thromboplast Time 97 SEC (23-33) H Current Medications Medications (Trade) Dose Ordered Sig/Lisbeth Route PRN Reason Start Time Stop Time Status Last Admin Dose Admin Acetaminophen (Tylenol) 650 mg Q4H PRN ORAL fever 12/17/16 08:00 01/16/17 07:59 12/21/16 08:19 Amlodipine Besylate 5 mg 5 mg Q12HR ORAL 12/22/16 21:00 01/21/17 20:59 12/23/16 08:13 Clonidine HCl 0.1 mg 0.1 mg Q4H PRN ORAL SBP >160 12/22/16 10:45 01/21/17 10:44 12/22/16 12:37 Dextrose (D10w) 1,000 ml @ 80 mls/hr [id number] PRN IV If TPN interrupted 12/17/16 07:30 01/16/17 07:29 Dextrose (Dextrose 50%) STAT PRN IV Hypoglycemia 12/17/16 07:30 01/16/17 07:29 Fat Emulsion Intravenous/Amino Acids/ Electrolytes/ Dextrose (Intralipids/Tpn) 2,232 ml @ 93 mls/hr Q24H IV 12/21/16 21:00 01/20/17 20:59 12/22/16 21:23 Fluconazole/ Sodium Chloride 100 ml @ 100 mls/hr Q24H IV 12/19/16 23:00 12/26/16 22:59 12/22/16 23:19 Heparin Sodium/ Dextrose (Heparin) 500 ml @ 23.678 mls/ hr adjust per protocol IV 12/22/16 23:30 01/21/17 23:29 12/23/16 08:12 Insulin Aspart (NovoLOG) No Dose Q6HR SUBQ 12/17/16 12:00 01/16/17 11:59 12/23/16 06:50 Lorazepam (Ativan 2mg/ml 1ml) 1 mg Q4H PRN IV For Anxiety 12/23/16 08:45 12/30/16 08:44 Meropenem 500 mg/ Sodium Chloride 55 ml @ 110 mls/hr Q12HR@0600,1800 IV 12/19/16 18:00 12/24/16 17:59 12/23/16 06:48 Morphine Sulfate (Morphine Sulfate) 4 mg Q4H PRN IVP Severe Pain (Pain Scale 7-10) 12/19/16 10:30 12/24/16 07:29 12/23/16 07:50 Nitroglycerin (Nitro-Bid) 1 inch TID@0600,1200,1800 TOPIC 12/22/16 06:00 01/21/17 05:59 12/23/16 06:48 Nitroglycerin (Ntg) 0.4 mg Q5M X 3 DOSES PRN SL Prn Chest Pain 12/17/16 07:30 01/16/17 07:29 Ondansetron HCl (Zofran) 4 mg Q6H PRN IVP Nausea & Vomiting 12/17/16 07:30 01/16/17 07:29 Pantoprazole 40 mg 40 mg DAILY IVP 12/20/16 09:00 01/19/17 08:59 12/23/16 08:13 Phytonadione (Vitamin K) 10 mg QWEEK SUBQ 12/23/16 21:00 01/22/17 20:59 Polyethylene Glycol (Miralax) 17 gm HSPRN PRN ORAL Constipation 12/17/16 07:30 01/16/17 07:29 Potassium Chloride/Sodium Chloride (KCl/Sodium Chloride 1000ml bag) 1,015 ml @ 50 mls/hr [id number] IV 12/22/16 11:00 01/21/17 10:59 12/23/16 08:13 Sucralfate (Carafate) 1 gm FOUR TIMES A DAY ORAL 12/17/16 09:00 01/16/17 08:59 12/23/16 08:13 Temazepam (Restoril) 15 mg HSPRN PRN ORAL Insomnia 12/17/16 07:30 12/24/16 07:29 12/22/16 21:26 ANA LILIA BEDOLLA Dec 23, 2016 08:56
--- NOTE | 2016-12-23 10:04 | Diagnostic Imaging Report ---
Indication: SOB Technique: XRAY CHEST 1 V. Comparison: 12/22/2016 Findings: Heart remains enlarged. Vascular redistribution and interstitial disease remains unchanged. Topical and remains. Impression: Congestive heart failure. No significant change from prior examination.
--- NOTE | 2016-12-23 10:56 | Pulmonolgy Critical Care Note ---
Critical Care - Asmt/Plan Assessment/Plan: ASSESSMENT acute respiratory failure, requiring intubation sepsis pancreatitis cholelithiasis acute renal failure permanent A fib s/p AVR(bioprosthetic) s/p MVR ( mechanical) pulmonary HTN CHF coagulopathy hypoalbuminemia PLAN OF CARE ICU care vent cre pulmonary toilet weaning protocol as tolerated add Ativan prn CXR and ABG in am Pancreatitis recurrent GI follows pancreatic enzymes trending down as well as leukocytosis ( this am slight trend up) CT A/P : Findings compatible with marked worsening of acute pancreatitis MRCP : Cholelithiasis. There is also a calculus within the duct adjacent to the gallbladder abdominal US of liver : Incidental finding of cholelithiasis and mild gallbladder wall thickening NPO TPN continue - per GI dosing per GI no evidence of choledocholithiasis surgery follows, no surgery planned abx, ID follows sputum cx + Mandy, blood cx negative, stool C dif negative renal parameters improving, creat down to 1.o renal US- no hydro nephro follows monitor renal parameters, lytes, avoid nephrotoxic BP management with CCB and Hydralazine prn, ( off BB due to jemima), need further optimization as per cardio stable BS management with SS of insulin, [id number] at goal cardio follows a/coagulation with heparin drip , ( for A fib and mechanical mitral valve) GI prophylaxis skin care case discussed and evaluated by supervising physician Critical Care - Objective Last 24 Hour Vital Signs Date Time Temp Pulse Resp B/P Pulse Ox O2 Delivery O2 Flow Rate FiO2 12/23/16 10:15 172/46 12/23/16 10:00 100 16 172/46 94 Mechanical Ventilator 30 12/23/16 09:00 93 15 169/56 94 Mechanical Ventilator 30 12/23/16 08:55 76 19 30 12/23/16 08:55 99 12/23/16 08:25 98.0 12/23/16 08:13 95 170/54 12/23/16 08:00 98.6 86 16 170/54 98 Mechanical Ventilator 30 12/23/16 08:00 61 12/23/16 08:00 30 12/23/16 07:00 73 15 153/44 98 Mechanical Ventilator 30 12/23/16 06:48 134/42 12/23/16 06:42 63 15 30 12/23/16 06:00 60 15 134/42 100 Mechanical Ventilator 30 12/23/16 05:13 84 21 30 12/23/16 05:00 61 15 148/41 100 Mechanical Ventilator 30 12/23/16 04:00 70 12/23/16 04:00 30 12/23/16 04:00 61 15 158/41 100 Mechanical Ventilator 30 12/23/16 03:00 70 15 144/40 100 Mechanical Ventilator 30 12/23/16 02:48 66 18 30 12/23/16 02:00 71 15 156/44 100 Mechanical Ventilator 30 12/23/16 01:00 98.0 71 15 159/62 100 Mechanical Ventilator 30 12/23/16 00:41 66 17 30 12/23/16 00:00 60 15 151/42 100 Mechanical Ventilator 30 12/23/16 00:00 30 12/23/16 00:00 60 12/22/16 23:00 58 15 135/39 100 Mechanical Ventilator 30 12/22/16 22:39 61 15 30 12/22/16 22:00 58 15 142/39 100 Mechanical Ventilator 30 12/22/16 21:25 61 141/42 12/22/16 21:00 60 15 141/42 100 Mechanical Ventilator 30 12/22/16 20:55 58 15 30 12/22/16 20:00 30 12/22/16 20:00 58 12/22/16 20:00 98.2 60 15 153/43 100 Mechanical Ventilator 30 12/22/16 19:05 62 15 30 12/22/16 19:00 60 15 151/42 100 Mechanical Ventilator 30 12/22/16 18:00 64 17 134/40 99 Mechanical Ventilator 30 12/22/16 17:43 156/49 12/22/16 17:00 73 15 30 12/22/16 17:00 75 20 156/49 97 Mechanical Ventilator 30 12/22/16 16:00 98.4 74 35 153/51 98 Mechanical Ventilator 30 12/22/16 16:00 73 12/22/16 16:00 30 12/22/16 15:00 79 21 158/34 97 Mechanical Ventilator 30 12/22/16 15:00 75 22 30 12/22/16 14:00 85 23 157/49 97 Mechanical Ventilator 30 12/22/16 13:00 81 24 30 12/22/16 13:00 86 26 178/41 95 Mechanical Ventilator 30 12/22/16 12:37 178/46 12/22/16 12:00 87 12/22/16 12:00 30 12/22/16 12:00 98.8 84 23 178/46 96 Mechanical Ventilator 30 12/22/16 11:22 173/47 12/22/16 11:00 84 28 173/47 97 Mechanical Ventilator 30 12/22/16 10:56 87 26 30 Objective: General status: awake, alert, responsive, on ventilator intubated Condition: critical HEENT: atraumatic, normocephalic, OP with ET in place, NGT with TF Lungs: other - decreased BS at bases Heart: HR/BP stable - A fib on tele , LUE PICC intact Abdomen: soft with mild distention , non-tender, active bowel sounds Extremities: other - +1 edema BLE Accucheck: 196 Critical Care - Subjective ROS Limited/Unobtainable: Yes Interval Events: mild leukocytosis, on weaning, creat down to normal elevated peak pressure Condition: critical IV Access: PICC - LUE intact EKG Rhythm: Atrial Fibrillation FI02: 30 Vent Support Breath Rate: 10 Vent Support Mode: IMV/SIMV Vent Tidal Volume: 500 Sputum Amount: Moderate PEEP: 5.0 PIP: 49 Fluids: TPN at 93 cc/hr Drips: Heaprin drip at 20 u/kg/hr I&O: Intake and Output 12/22/16 12/23/16 18:59 06:59 Intake Total 2031.412 ml 2146.381 ml Output Total 1405 ml 910 ml Balance 626.412 ml 1236.381 ml Free Water 50 ml IV Total 1841.412 ml 2146.381 ml Other 140 ml Output Urine Total 1405 ml 910 ml # Bowel Movements 1 1 CXR: 12/23 Congestive heart failure. ET-Tube: 7.5 ET Position: 22 [place] ([facility] [place] DivisionTonya Bhatti NP Dec 23, 2016 10:56
[2016-12-23 11:01] LABS: ABG ALLEN TEST POSITIVE; ABG BASE EXCESS 5.6
[2016-12-23] MEDS: LORazepam Inj 2mg/ml 1ml IV PRN ×2 (11:11→18:17)
[2016-12-23] MEDS ORDERED: DuoNeb 0.5-3(2.5)mg/3ml neb HHN PRN (11:30)
--- NOTE | 2016-12-23 15:03 | General Progress Note ---
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 Pulmonary HTN HypoAlbuminemia Plan: Per GI / Surgery On TPN Keep BP under control Avoid nephrotoxics K supplement as needed monitor renal parameters Subjective ROS Limited/Unobtainable: Yes Allergies: Coded Allergies: No Known Allergies (Unverified , 09/28/14) Objective Last 24 Hour Vital Signs Date Time Temp Pulse Resp B/P Pulse Ox O2 Delivery O2 Flow Rate FiO2 12/23/16 14:00 69 18 144/38 100 Mechanical Ventilator 35 12/23/16 13:00 73 16 136/39 100 Mechanical Ventilator 35 12/23/16 12:38 72 20 35 12/23/16 12:00 68 12/23/16 12:00 98.8 74 16 141/35 99 Mechanical Ventilator 35 12/23/16 12:00 35 12/23/16 11:11 164/43 12/23/16 11:00 91 18 35 12/23/16 11:00 90 20 164/43 98 Mechanical Ventilator 35 12/23/16 10:15 172/46 12/23/16 10:00 100 16 172/46 94 Mechanical Ventilator 30 12/23/16 09:00 93 15 169/56 94 Mechanical Ventilator 30 12/23/16 09:00 30 12/23/16 08:55 76 19 30 12/23/16 08:55 99 12/23/16 08:25 98.0 12/23/16 08:13 95 170/54 12/23/16 08:00 98.6 86 16 170/54 98 Mechanical Ventilator 30 12/23/16 08:00 61 12/23/16 08:00 30 12/23/16 07:00 73 15 153/44 98 Mechanical Ventilator 30 12/23/16 06:48 134/42 12/23/16 06:42 63 15 30 12/23/16 06:00 60 15 134/42 100 Mechanical Ventilator 30 12/23/16 05:13 84 21 30 12/23/16 05:00 61 15 148/41 100 Mechanical Ventilator 30 12/23/16 04:00 70 12/23/16 04:00 30 12/23/16 04:00 61 15 158/41 100 Mechanical Ventilator 30 12/23/16 03:00 70 15 144/40 100 Mechanical Ventilator 30 12/23/16 02:48 66 18 30 12/23/16 02:00 71 15 156/44 100 Mechanical Ventilator 30 12/23/16 01:00 98.0 71 15 159/62 100 Mechanical Ventilator 30 12/23/16 00:41 66 17 30 12/23/16 00:00 60 15 151/42 100 Mechanical Ventilator 30 12/23/16 00:00 30 12/23/16 00:00 60 12/22/16 23:00 58 15 135/39 100 Mechanical Ventilator 30 12/22/16 22:39 61 15 30 12/22/16 22:00 58 15 142/39 100 Mechanical Ventilator 30 12/22/16 21:25 61 141/42 12/22/16 21:00 60 15 141/42 100 Mechanical Ventilator 30 12/22/16 20:55 58 15 30 12/22/16 20:00 30 12/22/16 20:00 58 12/22/16 20:00 98.2 60 15 153/43 100 Mechanical Ventilator 30 12/22/16 19:05 62 15 30 12/22/16 19:00 60 15 151/42 100 Mechanical Ventilator 30 12/22/16 18:00 64 17 134/40 99 Mechanical Ventilator 30 12/22/16 17:43 156/49 12/22/16 17:00 73 15 30 12/22/16 17:00 75 20 156/49 97 Mechanical Ventilator 30 12/22/16 16:00 98.4 74 35 153/51 98 Mechanical Ventilator 30 12/22/16 16:00 73 12/22/16 16:00 30 Intake and Output 12/22/16 12/23/16 19:00 07:00 Intake Total 2132.436 ml 2037.464 ml Output Total 1360 ml 1035 ml Balance 772.436 ml 1002.464 ml Free Water 50 ml IV Total 1942.436 ml 2037.464 ml Other 140 ml Output Urine Total 1360 ml 1035 ml # Bowel Movements 2 Laboratory Tests 12/22/16 21:30: Activated Partial Thromboplast Time 115H 12/23/16 03:53: White Blood Count 13.2H, Red Blood Count 2.72L, Hemoglobin 8.1L, Hematocrit 25.7L, Mean Corpuscular Volume 95, Mean Corpuscular Hemoglobin 29.8, Mean Corpuscular Hemoglobin Concent 31.4L, Red Cell Distribution Width 14.4, Platelet Count 289, Mean Platelet Volume 7.7, Neutrophils (%) (Auto) 80.2H, Lymphocytes (%) (Auto) 6.9L, Monocytes (%) (Auto) 9.8, Eosinophils (%) (Auto) 2.3, Basophils (%) (Auto) 0.8, Sodium Level 148H, Potassium Level 3.7, Chloride Level 106, Carbon Dioxide Level 30, Anion Gap 12, Blood Urea Nitrogen 58H, Creatinine 1.0H, Estimat Glomerular Filtration Rate 54.8, Glucose Level 182H, Calcium Level 8.2L, Phosphorus Level 4.1, Magnesium Level 2.3 12/23/16 06:35: Activated Partial Thromboplast Time 97H 12/23/16 10:48: Arterial Blood pH 7.260L, Arterial Blood Partial Pressure CO2 79.0*H, Arterial Blood Partial Pressure O2 73.4L, Arterial Blood HCO3 34.3H, Arterial Blood Oxygen Saturation 91.0L, Arterial Blood Base Excess 5.6, Ok Test Positive 12/23/16 14:30: Activated Partial Thromboplast Time [Pending] Height (Feet): 5 Height (Inches): 1.00 Weight (Pounds): 145 General Appearance: no apparent distress Objective other PE not changed KAMINI SNOW Dec 23, 2016 15:03
--- NOTE | 2016-12-23 15:59 | Cardiology Progress Note ---
Assessment/Plan Status: stable, unchanged Status Narrative Pt w/ mech MVR, bioprosthetic avr, Pemanent af - controlled ventricular rates Adm w/ pancreatitis and suffered resp arrest, requiring intubation/ vent She has had uncontrolled BP - now on clonidine, ntg, norvasc cxr w/ pulm vasc congestion/ edema Assessment/Plan attempting to wean from vent. However, co2 retention/ resp acidosis noted today on weaning trial Continue iv heparin for mechanical mvr and AF Diurese - one dose lasix today. followup cxr, labs incl bnp in am . Subjective ROS Limited/Unobtainable: Yes Subjective Pt intubated/awake. Events noted. Objective Last 24 Hour Vital Signs Date Time Temp Pulse Resp B/P Pulse Ox O2 Delivery O2 Flow Rate FiO2 12/23/16 15:00 65 18 143/41 100 Mechanical Ventilator 35 12/23/16 14:46 73 20 35 12/23/16 14:00 69 18 144/38 100 Mechanical Ventilator 35 12/23/16 13:00 73 16 136/39 100 Mechanical Ventilator 35 12/23/16 12:38 72 20 35 12/23/16 12:00 68 12/23/16 12:00 98.8 74 16 141/35 99 Mechanical Ventilator 35 12/23/16 12:00 35 12/23/16 11:11 164/43 12/23/16 11:00 91 18 35 12/23/16 11:00 90 20 164/43 98 Mechanical Ventilator 35 12/23/16 10:15 172/46 12/23/16 10:00 100 16 172/46 94 Mechanical Ventilator 30 12/23/16 09:00 93 15 169/56 94 Mechanical Ventilator 30 12/23/16 09:00 30 12/23/16 08:55 76 19 30 12/23/16 08:55 99 12/23/16 08:25 98.0 12/23/16 08:13 95 170/54 12/23/16 08:00 98.6 86 16 170/54 98 Mechanical Ventilator 30 12/23/16 08:00 61 12/23/16 08:00 30 12/23/16 07:00 73 15 153/44 98 Mechanical Ventilator 30 12/23/16 06:48 134/42 12/23/16 06:42 63 15 30 12/23/16 06:00 60 15 134/42 100 Mechanical Ventilator 30 12/23/16 05:13 84 21 30 12/23/16 05:00 61 15 148/41 100 Mechanical Ventilator 30 12/23/16 04:00 70 12/23/16 04:00 30 12/23/16 04:00 61 15 158/41 100 Mechanical Ventilator 30 12/23/16 03:00 70 15 144/40 100 Mechanical Ventilator 30 12/23/16 02:48 66 18 30 12/23/16 02:00 71 15 156/44 100 Mechanical Ventilator 30 12/23/16 01:00 98.0 71 15 159/62 100 Mechanical Ventilator 30 12/23/16 00:41 66 17 30 12/23/16 00:00 60 15 151/42 100 Mechanical Ventilator 30 12/23/16 00:00 30 12/23/16 00:00 60 12/22/16 23:00 58 15 135/39 100 Mechanical Ventilator 30 12/22/16 22:39 61 15 30 12/22/16 22:00 58 15 142/39 100 Mechanical Ventilator 30 12/22/16 21:25 61 141/42 12/22/16 21:00 60 15 141/42 100 Mechanical Ventilator 30 12/22/16 20:55 58 15 30 12/22/16 20:00 30 12/22/16 20:00 58 12/22/16 20:00 98.2 60 15 153/43 100 Mechanical Ventilator 30 12/22/16 19:05 62 15 30 12/22/16 19:00 60 15 151/42 100 Mechanical Ventilator 30 12/22/16 18:00 64 17 134/40 99 Mechanical Ventilator 30 12/22/16 17:43 156/49 12/22/16 17:00 73 15 30 12/22/16 17:00 75 20 156/49 97 Mechanical Ventilator 30 12/22/16 16:00 98.4 74 35 153/51 98 Mechanical Ventilator 30 12/22/16 16:00 73 12/22/16 16:00 30 General Appearance: WD/WN, obese, on vent EENT: PERRL/EOMI, other - et tube Rhythm: Afib Cardiovascular: normal rate, irregularly irregular Respiratory/Chest: other - dec bs at bases Abdomen: soft, hypoactive bowel sounds, distended Extremities: no swelling Intake and Output 12/22/16 12/23/16 19:00 07:00 Intake Total 2132.436 ml 2037.464 ml Output Total 1360 ml 1035 ml Balance 772.436 ml 1002.464 ml Free Water 50 ml IV Total 1942.436 ml 2037.464 ml Other 140 ml Output Urine Total 1360 ml 1035 ml # Bowel Movements 2 Laboratory Tests Test 12/22/16 21:30 12/23/16 03:53 12/23/16 06:35 12/23/16 10:48 Activated Partial Thromboplast Time 115 SEC (23-33) H 97 SEC (23-33) H White Blood Count 13.2 K/UL (4.8-10.8) H Red Blood Count 2.72 M/UL (4.20-5.40) L Hemoglobin 8.1 G/DL (12.0-16.0) L Hematocrit 25.7 % (37.0-47.0) L Mean Corpuscular Volume 95 FL (80-99) Mean Corpuscular Hemoglobin 29.8 PG (27.0-31.0) Mean Corpuscular Hemoglobin Concent 31.4 G/DL (32.0-36.0) L Red Cell Distribution Width 14.4 % (11.6-14.8) Platelet Count 289 K/UL (150-450) Mean Platelet Volume 7.7 FL (6.5-10.1) Neutrophils (%) (Auto) 80.2 % (45.0-75.0) H Lymphocytes (%) (Auto) 6.9 % (20.0-45.0) L Monocytes (%) (Auto) 9.8 % (1.0-10.0) Eosinophils (%) (Auto) 2.3 % (0.0-3.0) Basophils (%) (Auto) 0.8 % (0.0-2.0) Sodium Level 148 mEQ/L (135-145) H Potassium Level 3.7 mEQ/L (3.4-4.9) Chloride Level 106 mEQ/L (98-107) Carbon Dioxide Level 30 mEQ/L (20-30) Anion Gap 12 (5-15) Blood Urea Nitrogen 58 mg/dL (7-23) H Creatinine 1.0 mg/dL (0.5-0.9) H Estimat Glomerular Filtration Rate 54.8 mL/min (>60) Glucose Level 182 mg/dL (74-106) H Calcium Level 8.2 mg/dL (8.6-10.2) L Phosphorus Level 4.1 mg/dL (2.5-4.8) Magnesium Level 2.3 mg/dL (1.7-2.5) Arterial Blood pH 7.260 (7.350-7.450) Arterial Blood Partial Pressure CO2 79.0 mmHg (35.0-45.0) *H Arterial Blood Partial Pressure O2 73.4 mmHg (75.0-100.0) L Arterial Blood HCO3 34.3 mmol/L (22.0-26.0) H Arterial Blood Oxygen Saturation 91.0 % (92.0-98.0) L Arterial Blood Base Excess 5.6 Ok Test Positive Test 12/23/16 14:30 Activated Partial Thromboplast Time 68 SEC (23-33) H Microbiology Date/Time Source Procedure Growth Status 12/22/16 19:50 Stool Clostridium difficile Toxin Assay - Final Complete TASHA CASTANEDA Dec 23, 2016 15:59
--- NOTE | 2016-12-23 20:47 | General Progress Note ---
Assessment/Plan Assessment/Plan Assessment Pancreatitis - resolving, but abdomen still very distended cholelithiasis, no e/o choledocholithiasis Leukocytosis improving Respiratory failure Azotemia improving Anemia colon polyp Guarded Assessment/Plan TPN abx follow labs supportive care repeat CT Saturday surgical planning Subjective Allergies: Coded Allergies: No Known Allergies (Unverified , 09/28/14) Subjective above noted denies abd pain intubated d/w RN and family abd still very distended On TPN Objective Last 24 Hour Vital Signs Date Time Temp Pulse Resp B/P Pulse Ox O2 Delivery O2 Flow Rate FiO2 12/23/16 19:00 72 18 145/42 100 Mechanical Ventilator 35 12/23/16 18:48 69 18 35 12/23/16 18:00 85 18 147/43 100 Mechanical Ventilator 35 12/23/16 17:48 154/38 12/23/16 17:00 75 18 154/38 100 Mechanical Ventilator 35 12/23/16 16:51 71 17 35 12/23/16 16:00 35 12/23/16 16:00 74 12/23/16 16:00 97.9 69 18 147/8 100 Mechanical Ventilator 35 12/23/16 15:00 65 18 143/41 100 Mechanical Ventilator 35 12/23/16 14:46 73 20 35 12/23/16 14:00 69 18 144/38 100 Mechanical Ventilator 35 12/23/16 13:00 73 16 136/39 100 Mechanical Ventilator 35 12/23/16 12:38 72 20 35 12/23/16 12:00 68 12/23/16 12:00 98.8 74 16 141/35 99 Mechanical Ventilator 35 12/23/16 12:00 35 12/23/16 11:11 164/43 12/23/16 11:00 91 18 35 12/23/16 11:00 90 20 164/43 98 Mechanical Ventilator 35 12/23/16 10:15 172/46 12/23/16 10:00 100 16 172/46 94 Mechanical Ventilator 30 12/23/16 09:00 93 15 169/56 94 Mechanical Ventilator 30 12/23/16 09:00 30 12/23/16 08:55 76 19 30 12/23/16 08:55 99 12/23/16 08:25 98.0 12/23/16 08:13 95 170/54 12/23/16 08:00 98.6 86 16 170/54 98 Mechanical Ventilator 30 12/23/16 08:00 61 12/23/16 08:00 30 12/23/16 07:00 73 15 153/44 98 Mechanical Ventilator 30 12/23/16 06:48 134/42 12/23/16 06:42 63 15 30 12/23/16 06:00 60 15 134/42 100 Mechanical Ventilator 30 12/23/16 05:13 84 21 30 12/23/16 05:00 61 15 148/41 100 Mechanical Ventilator 30 12/23/16 04:00 70 12/23/16 04:00 30 12/23/16 04:00 61 15 158/41 100 Mechanical Ventilator 30 12/23/16 03:00 70 15 144/40 100 Mechanical Ventilator 30 12/23/16 02:48 66 18 30 12/23/16 02:00 71 15 156/44 100 Mechanical Ventilator 30 12/23/16 01:00 98.0 71 15 159/62 100 Mechanical Ventilator 30 12/23/16 00:41 66 17 30 12/23/16 00:00 60 15 151/42 100 Mechanical Ventilator 30 12/23/16 00:00 30 12/23/16 00:00 60 12/22/16 23:00 58 15 135/39 100 Mechanical Ventilator 30 12/22/16 22:39 61 15 30 12/22/16 22:00 58 15 142/39 100 Mechanical Ventilator 30 12/22/16 21:25 61 141/42 12/22/16 21:00 60 15 141/42 100 Mechanical Ventilator 30 12/22/16 20:55 58 15 30 Intake and Output 12/22/16 12/23/16 19:00 07:00 Intake Total 2132.436 ml 2037.464 ml Output Total 1360 ml 1035 ml Balance 772.436 ml 1002.464 ml Free Water 50 ml IV Total 1942.436 ml 2037.464 ml Other 140 ml Output Urine Total 1360 ml 1035 ml # Bowel Movements 2 Laboratory Tests 12/22/16 21:30: Activated Partial Thromboplast Time 115H 12/23/16 03:53: White Blood Count 13.2H, Red Blood Count 2.72L, Hemoglobin 8.1L, Hematocrit 25.7L, Mean Corpuscular Volume 95, Mean Corpuscular Hemoglobin 29.8, Mean Corpuscular Hemoglobin Concent 31.4L, Red Cell Distribution Width 14.4, Platelet Count 289, Mean Platelet Volume 7.7, Neutrophils (%) (Auto) 80.2H, Lymphocytes (%) (Auto) 6.9L, Monocytes (%) (Auto) 9.8, Eosinophils (%) (Auto) 2.3, Basophils (%) (Auto) 0.8, Sodium Level 148H, Potassium Level 3.7, Chloride Level 106, Carbon Dioxide Level 30, Anion Gap 12, Blood Urea Nitrogen 58H, Creatinine 1.0H, Estimat Glomerular Filtration Rate 54.8, Glucose Level 182H, Calcium Level 8.2L, Phosphorus Level 4.1, Magnesium Level 2.3 12/23/16 06:35: Activated Partial Thromboplast Time 97H 12/23/16 10:48: Arterial Blood pH 7.260L, Arterial Blood Partial Pressure CO2 79.0*H, Arterial Blood Partial Pressure O2 73.4L, Arterial Blood HCO3 34.3H, Arterial Blood Oxygen Saturation 91.0L, Arterial Blood Base Excess 5.6, Ok Test Positive 12/23/16 14:30: Activated Partial Thromboplast Time 68H Height (Feet): 5 Height (Inches): 1.00 Weight (Pounds): 145 Objective Elderly woman NCAT, intubated responsive supple CTA RRR Abd soft NT distended no edema MAXIME EVANS Dec 23, 2016 20:47
[2016-12-23] MEDS ORDERED: Phytonadione 10 mg/mL 1ml amp SUBQ SCH (21:00)
[2016-12-23] MEDS: Fat Emulsion Iv 20% 240 ML in Tpn 1,992 ML IV SCH (21:13)
--- NOTE | 2016-12-23 22:54 | General Progress Note ---
Progress Note Progress Note followed for gallstone pancreatitis, complicated by respiratory failure. Remains intubated failed attept at weaning On TPN Awake, alert, responding approriately Vital Sign - Last 24 Hours 12/22/16 12/23/16 12/23/16 12/23/16 23:00 00:00 00:00 00:00 Pulse 58 60 60 Resp 15 15 B/P 135/39 151/42 Pulse Ox 100 100 O2 Delivery Mechanical Ventilator Mechanical Ventilator FiO2 30 30 30 12/23/16 12/23/16 12/23/16 12/23/16 00:41 01:00 02:00 02:48 Temp 98.0 Pulse 66 71 71 66 Resp 17 15 15 18 B/P 159/62 156/44 Pulse Ox 100 100 O2 Delivery Mechanical Ventilator Mechanical Ventilator FiO2 30 30 30 30 12/23/16 12/23/16 12/23/16 12/23/16 03:00 04:00 04:00 04:00 Pulse 70 61 70 Resp 15 15 B/P 144/40 158/41 Pulse Ox 100 100 O2 Delivery Mechanical Ventilator Mechanical Ventilator FiO2 30 30 30 12/23/16 12/23/16 12/23/16 12/23/16 05:00 05:13 06:00 06:42 Pulse 61 84 60 63 Resp 15 21 15 15 B/P 148/41 134/42 Pulse Ox 100 100 O2 Delivery Mechanical Ventilator Mechanical Ventilator FiO2 30 30 30 30 12/23/16 12/23/16 12/23/16 12/23/16 06:48 07:00 08:00 08:00 Pulse 73 61 Resp 15 B/P 134/42 153/44 Pulse Ox 98 O2 Delivery Mechanical Ventilator FiO2 30 30 12/23/16 12/23/16 12/23/16 12/23/16 08:00 08:13 08:25 08:55 Temp 98.6 98.0 Pulse 86 95 Resp 16 B/P 170/54 170/54 Pulse Ox 98 99 O2 Delivery Mechanical Ventilator FiO2 30 12/23/16 12/23/16 12/23/16 12/23/16 08:55 09:00 09:00 10:00 Pulse 76 93 100 Resp 19 15 16 B/P 169/56 172/46 Pulse Ox 94 94 O2 Delivery Mechanical Ventilator Mechanical Ventilator FiO2 30 30 30 30 12/23/16 12/23/16 12/23/16 12/23/16 10:15 11:00 11:00 11:11 Pulse 90 91 Resp 20 18 B/P 172/46 164/43 164/43 Pulse Ox 98 O2 Delivery Mechanical Ventilator FiO2 35 35 12/23/16 12/23/16 12/23/16 12/23/16 12:00 12:00 12:00 12:38 Temp 98.8 Pulse 74 68 72 Resp 16 20 B/P 141/35 Pulse Ox 99 O2 Delivery Mechanical Ventilator FiO2 35 35 35 12/23/16 12/23/16 12/23/16 12/23/16 13:00 14:00 14:46 15:00 Pulse 73 69 73 65 Resp 16 18 20 18 B/P 136/39 144/38 143/41 Pulse Ox 100 100 100 O2 Delivery Mechanical Ventilator Mechanical Ventilator Mechanical Ventilator FiO2 35 35 35 35 12/23/16 12/23/16 12/23/16 12/23/16 16:00 16:00 16:00 16:51 Temp 97.9 Pulse 69 74 71 Resp 18 17 B/P 147/8 Pulse Ox 100 O2 Delivery Mechanical Ventilator FiO2 35 35 35 12/23/16 12/23/16 12/23/16 12/23/16 17:00 17:48 18:00 18:48 Pulse 75 85 69 Resp 18 18 18 B/P 154/38 154/38 147/43 Pulse Ox 100 100 O2 Delivery Mechanical Ventilator Mechanical Ventilator FiO2 35 35 35 12/23/16 12/23/16 12/23/16 19:00 21:06 21:25 Pulse 72 82 79 Resp 18 18 B/P 145/42 165/47 Pulse Ox 100 O2 Delivery Mechanical Ventilator FiO2 35 35 Intake and Output 12/22/16 12/22/16 12/23/16 15:00 23:00 07:00 Intake Total 1367.608 ml 1497.828 ml 1304.464 ml Output Total 1050 ml 560 ml 785 ml Balance 317.608 ml 937.828 ml 519.464 ml Laboratory Tests Test 12/23/16 03:53 12/23/16 06:35 12/23/16 10:48 12/23/16 14:30 White Blood Count 13.2 K/UL (4.8-10.8) H Red Blood Count 2.72 M/UL (4.20-5.40) L Hemoglobin 8.1 G/DL (12.0-16.0) L Hematocrit 25.7 % (37.0-47.0) L Mean Corpuscular Volume 95 FL (80-99) Mean Corpuscular Hemoglobin 29.8 PG (27.0-31.0) Mean Corpuscular Hemoglobin Concent 31.4 G/DL (32.0-36.0) L Red Cell Distribution Width 14.4 % (11.6-14.8) Platelet Count 289 K/UL (150-450) Mean Platelet Volume 7.7 FL (6.5-10.1) Neutrophils (%) (Auto) 80.2 % (45.0-75.0) H Lymphocytes (%) (Auto) 6.9 % (20.0-45.0) L Monocytes (%) (Auto) 9.8 % (1.0-10.0) Eosinophils (%) (Auto) 2.3 % (0.0-3.0) Basophils (%) (Auto) 0.8 % (0.0-2.0) Sodium Level 148 mEQ/L (135-145) H Potassium Level 3.7 mEQ/L (3.4-4.9) Chloride Level 106 mEQ/L (98-107) Carbon Dioxide Level 30 mEQ/L (20-30) Anion Gap 12 (5-15) Blood Urea Nitrogen 58 mg/dL (7-23) H Creatinine 1.0 mg/dL (0.5-0.9) H Estimat Glomerular Filtration Rate 54.8 mL/min (>60) Glucose Level 182 mg/dL (74-106) H Calcium Level 8.2 mg/dL (8.6-10.2) L Phosphorus Level 4.1 mg/dL (2.5-4.8) Magnesium Level 2.3 mg/dL (1.7-2.5) Activated Partial Thromboplast Time 97 SEC (23-33) H 68 SEC (23-33) H Arterial Blood pH 7.260 (7.350-7.450) Arterial Blood Partial Pressure CO2 79.0 mmHg (35.0-45.0) *H Arterial Blood Partial Pressure O2 73.4 mmHg (75.0-100.0) L Arterial Blood HCO3 34.3 mmol/L (22.0-26.0) H Arterial Blood Oxygen Saturation 91.0 % (92.0-98.0) L Arterial Blood Base Excess 5.6 Ok Test Positive present management, wean as papo eventual lap cholecystectomy LISA LICEA Dec 23, 2016 22:54
[2016-12-24] VITALS (24 sets, daily range): BP systolic 143–170; BP diastolic 38–91
[2016-12-24] MEDS: NovoLOG Insulin Flexpen SUBQ SCH ×5 (00:02→23:48)
[2016-12-24 04:53] LABS: MEAN CORPUSCULAR HEMOGLOBIN 29.9 PG (27.0-31.0); MEAN CORPUSCULAR HGB CONC 31.1 G/DL (32.0-36.0); MEAN CORPUSCULAR VOLUME 96 FL (80-99); PLATELET COUNT 304 K/UL (150-450); RED BLOOD COUNT 2.51 M/UL (4.20-5.40); RED CELL DISTRIBUTION WIDTH 14.5 % (11.6-14.8); WHITE BLOOD COUNT 10.5 K/UL (4.8-10.8)
[2016-12-24 05:26] LABS: ANION GAP 8 (5-15); CALCIUM 8.3 mg/dL (8.6-10.2); CARBON DIOXIDE 33 mEQ/L (20-30); CHLORIDE 111 mEQ/L (98-107); CREATININE 0.8 mg/dL (0.5-0.9); GLOMERULAR FILTRATION RATE > 60 mL/min (>60); HEMOLYSIS 0; MAGNESIUM 2.2 mg/dL (1.7-2.5); PHOSPHORUS 3.6 mg/dL (2.5-4.8); POTASSIUM 3.8 mEQ/L (3.4-4.9); SODIUM 152 mEQ/L (135-145)
[2016-12-24 05:31] LABS: BILIRUBIN,DIRECT 0.5 mg/dL (0.1-0.3); CRP QUANT 10.5 mg/dL (< 0.5); TOTAL PROTEIN 5.8 g/dL (6.6-8.7)
[2016-12-24] MEDS: Meropenem 500 MG in NS 55 ML IV SCH (05:59)
[2016-12-24] MEDS: Heparin 25,000u/D5W 500ml 500 ML IV SCH (06:03)
[2016-12-24] MEDS: Nitroglycerin 2% oint pkt TOPIC SCH ×3 (06:04→17:36)
[2016-12-24 07:07] LABS: BASOPHILS % (AUTO) 0.7 % (0.0-2.0); EOSINOPHILS % (AUTO) 2.3 % (0.0-3.0); LYMPHOCYTES % (AUTO) 7.1 % (20.0-45.0); MEAN CORPUSCULAR HGB CONC 31.2 G/DL (32.0-36.0); MEAN CORPUSCULAR VOLUME 96 FL (80-99); MEAN PLATELET VOLUME 7.6 FL (6.5-10.1); NEUTROPHILS % (AUTO) 78.9 % (45.0-75.0); PLATELET COUNT 328 K/UL (150-450); RED BLOOD COUNT 2.68 M/UL (4.20-5.40); RED CELL DISTRIBUTION WIDTH 14.7 % (11.6-14.8); WHITE BLOOD COUNT 11.2 K/UL (4.8-10.8)
[2016-12-24] MEDS: Sucralfate 1gm tab ORAL SCH ×4 (09:13→21:05)
[2016-12-24] MEDS: Pantoprazole Inj IVP SCH (09:13)
[2016-12-24] MEDS: Morphine Sulfate 4mg/ml Inj IVP PRN ×2 (09:13→16:17)
[2016-12-24 09:31] LABS: BAND NEUTROPHILS % (MANUAL) 0 % (0-8); BASOPHILS % (MANUAL) 0 % (0-2); EOSINOPHILS % (MANUAL) 0 % (0-3); HYPOCHROMASIA 1+; LYMPHOCYTES % (MANUAL) 6 % (20-45); NEUTROPHILS % (MANUAL) 84 % (45-75); PLATELET ESTIMATE ADEQUATE; PLATELET MORPHOLOGY NORMAL; TOTAL CELLS COUNTED 100
[2016-12-24 09:53] LABS: ABG BASE EXCESS 6.9; ABG PCO2 66.6 mmHg (35.0-45.0)
[2016-12-24 09:54] LABS: ABG ALLEN TEST POSITIVE
[2016-12-24] MEDS ORDERED: NS 275ml ONE (10:28)
--- NOTE | 2016-12-24 10:49 | Pulmonolgy Critical Care Note ---
Critical Care - Asmt/Plan Problems: (1) Respiratory failure requiring intubation (2) Sepsis (3) Pancreatitis (4) ATN (acute tubular necrosis) (5) Atrial fibrillation Respiratory: monitor respiratory rate, adjust FIO2, CXR, ABG, weaning trial Cardiac: continue to monitor HR/BP Renal: F/U I&O, keep IV fluid Infectious Disease: check cultures Gastrointestinal: continue feedings/current rate Endocrine: monitor blood sugar, check HgA1C, continue sliding scale insulin Hematologic: transfuse if hgb<8.5 Neurologic: PRN Ativan, PRN Morphine, keep patient comfortable Affect: PRN ativan Prophylaxis: Protonix Disposition: keep in ICU 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, 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, 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 with: nurses, consultants, 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 - Objective Last 24 Hour Vital Signs Date Time Temp Pulse Resp B/P Pulse Ox O2 Delivery O2 Flow Rate FiO2 12/24/16 10:00 35 12/24/16 10:00 35 12/24/16 10:00 89 19 152/71 100 Mechanical Ventilator 35 12/24/16 09:40 98.1 12/24/16 09:13 91 162/55 12/24/16 09:00 91 18 156/52 100 Mechanical Ventilator 35 12/24/16 08:33 78 26 35 12/24/16 08:32 99 12/24/16 08:30 35 12/24/16 08:00 87 18 151/42 100 Mechanical Ventilator 35 12/24/16 08:00 75 12/24/16 08:00 35 12/24/16 07:10 91 21 35 12/24/16 07:00 98.1 79 20 159/61 100 Mechanical Ventilator 35 12/24/16 06:04 148/45 12/24/16 06:00 72 18 156/63 100 Mechanical Ventilator 35 12/24/16 05:07 79 21 35 12/24/16 05:00 74 18 148/45 100 Mechanical Ventilator 35 12/24/16 04:00 97.5 76 18 148/45 100 Mechanical Ventilator 35 12/24/16 04:00 35 12/24/16 04:00 73 12/24/16 03:00 78 18 145/45 100 Mechanical Ventilator 35 12/24/16 02:45 71 17 35 12/24/16 02:00 72 18 144/38 100 Mechanical Ventilator 35 12/24/16 01:01 69 19 35 12/24/16 01:00 68 18 150/42 100 Mechanical Ventilator 35 12/24/16 00:00 35 12/24/16 00:00 97.5 70 18 143/42 100 Mechanical Ventilator 35 12/24/16 00:00 66 12/23/16 23:00 70 18 130/36 100 Mechanical Ventilator 35 12/23/16 22:59 67 17 35 12/23/16 22:00 73 18 136/36 100 Mechanical Ventilator 35 12/23/16 21:25 79 18 35 12/23/16 21:06 82 165/47 12/23/16 21:00 81 19 165/47 100 Mechanical Ventilator 35 12/23/16 20:00 69 12/23/16 20:00 35 12/23/16 20:00 97.5 69 19 147/39 100 Mechanical Ventilator 35 12/23/16 19:00 72 18 145/42 100 Mechanical Ventilator 35 12/23/16 18:48 69 18 35 12/23/16 18:00 85 18 147/43 100 Mechanical Ventilator 35 12/23/16 17:48 154/38 12/23/16 17:00 75 18 154/38 100 Mechanical Ventilator 35 12/23/16 16:51 71 17 35 12/23/16 16:00 35 12/23/16 16:00 74 12/23/16 16:00 97.9 69 18 147/8 100 Mechanical Ventilator 35 12/23/16 15:00 65 18 143/41 100 Mechanical Ventilator 35 12/23/16 14:46 73 20 35 12/23/16 14:00 69 18 144/38 100 Mechanical Ventilator 35 12/23/16 13:00 73 16 136/39 100 Mechanical Ventilator 35 12/23/16 12:38 72 20 35 12/23/16 12:00 68 12/23/16 12:00 98.8 74 16 141/35 99 Mechanical Ventilator 35 12/23/16 12:00 35 12/23/16 11:11 164/43 12/23/16 11:00 91 18 35 12/23/16 11:00 90 20 164/43 98 Mechanical Ventilator 35 Status: sedated Condition: critical HEENT: atraumatic Neck: full ROM Heart: HR/BP stable, HR/BP unstable Abdomen: soft, active bowel sounds Extremities: no C/C/E Micro: Microbiology Date/Time Source Procedure Growth Status 12/22/16 19:50 Stool Clostridium difficile Toxin Assay - Final Complete Accucheck: 173 Critical Care - Subjective ROS Limited/Unobtainable: Yes ICU Day: 7 Condition: critical EKG Rhythm: Sinus Rhythm FI02: 35 Vent Support Breath Rate: 15 Vent Support Mode: AC Vent Tidal Volume: 500 Sputum Amount: Moderate PEEP: 5.0 PIP: 36 Fluids: tpn I&O: Intake and Output 12/23/16 12/24/16 19:00 07:00 Intake Total 2025.558 ml 1462.136 ml Output Total 1760 ml 1210 ml Balance 265.558 ml 252.136 ml Free Water 30 ml IV Total 1825.558 ml 1462.136 ml Other 170 ml Output Urine Total 1760 ml 1210 ml # Bowel Movements 3 CXR: pulmonary edema ET-Tube: 7.5 ET Position: 22 Labs: Laboratory Tests Test 12/23/16 14:30 12/24/16 04:00 12/24/16 06:00 12/24/16 09:40 Activated Partial Thromboplast Time 68 SEC (23-33) H 62 SEC (23-33) H White Blood Count 10.5 K/UL (4.8-10.8) 11.2 K/UL (4.8-10.8) H Red Blood Count 2.51 M/UL (4.20-5.40) L 2.68 M/UL (4.20-5.40) L Hemoglobin 7.5 G/DL (12.0-16.0) L 8.0 G/DL (12.0-16.0) L Hematocrit 24.1 % (37.0-47.0) L 25.8 % (37.0-47.0) L Mean Corpuscular Volume 96 FL (80-99) 96 FL (80-99) Mean Corpuscular Hemoglobin 29.9 PG (27.0-31.0) 30.0 PG (27.0-31.0) Mean Corpuscular Hemoglobin Concent 31.1 G/DL (32.0-36.0) L 31.2 G/DL (32.0-36.0) L Red Cell Distribution Width 14.5 % (11.6-14.8) 14.7 % (11.6-14.8) Platelet Count 304 K/UL (150-450) 328 K/UL (150-450) Mean Platelet Volume 8.0 FL (6.5-10.1) 7.6 FL (6.5-10.1) Neutrophils (%) (Auto) % (45.0-75.0) 78.9 % (45.0-75.0) H Lymphocytes (%) (Auto) % (20.0-45.0) 7.1 % (20.0-45.0) L Monocytes (%) (Auto) % (1.0-10.0) 11.0 % (1.0-10.0) H Eosinophils (%) (Auto) % (0.0-3.0) 2.3 % (0.0-3.0) Basophils (%) (Auto) % (0.0-2.0) 0.7 % (0.0-2.0) Differential Total Cells Counted 100 Neutrophils % (Manual) 84 % (45-75) H Lymphocytes % (Manual) 6 % (20-45) L Monocytes % (Manual) 10 % (1-10) Eosinophils % (Manual) 0 % (0-3) Basophils % (Manual) 0 % (0-2) Band Neutrophils 0 % (0-8) Platelet Estimate Adequate Platelet Morphology Normal Hypochromasia 1+ Sodium Level 152 mEQ/L (135-145) H Potassium Level 3.8 mEQ/L (3.4-4.9) Chloride Level 111 mEQ/L (98-107) H Carbon Dioxide Level 33 mEQ/L (20-30) H Anion Gap 8 (5-15) Blood Urea Nitrogen 48 mg/dL (7-23) H Creatinine 0.8 mg/dL (0.5-0.9) Estimat Glomerular Filtration Rate > 60 mL/min (>60) Glucose Level 171 mg/dL (74-106) H Calcium Level 8.3 mg/dL (8.6-10.2) L Phosphorus Level 3.6 mg/dL (2.5-4.8) Magnesium Level 2.2 mg/dL (1.7-2.5) Total Bilirubin 0.9 mg/dL (0.0-1.2) Direct Bilirubin 0.5 mg/dL (0.1-0.3) H Aspartate Amino Transf (AST/SGOT) 28 U/L (5-40) Alanine Aminotransferase (ALT/SGPT) 5 U/L (3-33) Alkaline Phosphatase 82 U/L (35-104) C-Reactive Protein, Quantitative 10.5 mg/dL (< 0.5) H Pro-B-Type Natriuretic Peptide 2126 pg/mL (0-125) H Total Protein 5.8 g/dL (6.6-8.7) L Albumin 1.8 g/dL (3.5-5.2) L Lipase 118 U/L (< 60) H Arterial Blood pH 7.327 (7.350-7.450) Arterial Blood Partial Pressure CO2 66.6 mmHg (35.0-45.0) *H Arterial Blood Partial Pressure O2 96.7 mmHg (75.0-100.0) Arterial Blood HCO3 34.1 mmol/L (22.0-26.0) H Arterial Blood Oxygen Saturation 95.6 % (92.0-98.0) Arterial Blood Base Excess 6.9 Ok Test Positive TONY BRIDGES Dec 24, 2016 10:49
--- NOTE | 2016-12-24 12:09 | General Progress Note ---
Progress Note Progress Note Surgery: patient down for CT scan. no acute events. will re-evaluate at later time after CT performed. Rodrigo Andino Dec 24, 2016 12:09
--- NOTE | 2016-12-24 12:19 | Infectious Diseases Prog Note ---
Assessment/Plan Assessment/Plan ASSESSMENT: Pancreatitis recurrent CT: Findings compatible with marked worsening of acute pancreatitis MRCP : Cholelithiasis. There is also a calculus within the duct adjacent to the gallbladder Pancreatic Enzymes improving Leukocytosis ( SIRS ) improving cholelithiasis : US of liver : Incidental finding of cholelithiasis and mild gallbladder wall thickening positive sonographic Diaz's sign LFT : Nl UTI : Mandy SCx : Mandy ( colonizer ) VDRF: Cxray : Increase in bilateral congestive changes with persistent small right , probable new left pleural effusions ARF SP aortic stenosis mitral stenosis status post mitral valve replacement AFib Pulmonary hypertension PLAN: - DC Merrem d# 14 / ,and cont Diflucan d# / - monitor CBC, temperatures, - Monitor culture ( BL) - monitor LFT - GI f/u - Sx is following for possible Cholecystectomy later - VDRF - CT of Abd :P Subjective Allergies: Coded Allergies: No Known Allergies (Unverified , 09/28/14) Subjective on vent Objective Vital Signs Last 24 Hour Vital Signs Date Time Temp Pulse Resp B/P Pulse Ox O2 Delivery O2 Flow Rate FiO2 12/24/16 11:05 90 20 35 12/24/16 11:00 87 19 147/91 100 Mechanical Ventilator 35 12/24/16 10:00 35 12/24/16 10:00 35 12/24/16 10:00 89 19 152/71 100 Mechanical Ventilator 35 12/24/16 09:40 98.1 12/24/16 09:13 91 162/55 12/24/16 09:00 91 18 156/52 100 Mechanical Ventilator 35 12/24/16 08:33 78 26 35 12/24/16 08:32 99 12/24/16 08:30 35 12/24/16 08:00 87 18 151/42 100 Mechanical Ventilator 35 12/24/16 08:00 75 12/24/16 08:00 35 12/24/16 07:10 91 21 35 12/24/16 07:00 98.1 79 20 159/61 100 Mechanical Ventilator 35 12/24/16 06:04 148/45 12/24/16 06:00 72 18 156/63 100 Mechanical Ventilator 35 12/24/16 05:07 79 21 35 12/24/16 05:00 74 18 148/45 100 Mechanical Ventilator 35 12/24/16 04:00 97.5 76 18 148/45 100 Mechanical Ventilator 35 12/24/16 04:00 35 17 04:00 73 12/24/16 03:00 78 18 145/45 100 Mechanical Ventilator 35 17 02:45 71 17 35 17 02:00 72 18 144/38 100 Mechanical Ventilator 35 12/24/17 01:01 69 19 35 17 01:00 68 18 150/42 100 Mechanical Ventilator 35 17 00:00 35 12/24/16 00:00 97.5 70 18 143/42 100 Mechanical Ventilator 35 12/24/16 00:00 66 17 23:00 70 18 130/36 100 Mechanical Ventilator 35 17 22:59 67 17 35 12/23/16 22:00 73 18 136/36 100 Mechanical Ventilator 35 17 21:25 79 18 35 17 21:06 82 165/47 12/23/16 21:00 81 19 165/47 100 Mechanical Ventilator 35 17 20:00 69 17 20:00 35 17 20:00 97.5 69 19 147/39 100 Mechanical Ventilator 35 12/23/17 19:00 72 18 145/42 100 Mechanical Ventilator 35 12/23/17 18:48 69 18 35 17 18:00 85 18 147/43 100 Mechanical Ventilator 35 12/23/17 17:48 154/38 17 17:00 75 18 154/38 100 Mechanical Ventilator 35 12/23/17 16:51 71 17 35 12/23/17 16:00 35 16/17 16:00 74 12/23/17 16:00 97.9 69 18 147/8 100 Mechanical Ventilator 35 16/17 15:00 65 18 143/41 100 Mechanical Ventilator 35 16/17 14:46 73 20 35 16/17 14:00 69 18 144/38 100 Mechanical Ventilator 35 16/17 13:00 73 16 136/39 100 Mechanical Ventilator 35 16/17 12:38 72 20 35 Height (Feet): 5 Height (Inches): 1.00 Weight (Pounds): 145 HEENT: atraumatic Respiratory/Chest: normal breath sounds Cardiovascular: normal rate Abdomen: no organomegaly Microbiology Date/Time Source Procedure Growth Status 12/22/16 19:50 Stool Clostridium difficile Toxin Assay - Final Complete Laboratory Tests Test 12/23/16 14:30 12/24/16 04:00 12/24/16 06:00 12/24/16 09:40 Activated Partial Thromboplast Time 68 SEC (23-33) H 62 SEC (23-33) H White Blood Count 10.5 K/UL (4.8-10.8) 11.2 K/UL (4.8-10.8) H Red Blood Count 2.51 M/UL (4.20-5.40) L 2.68 M/UL (4.20-5.40) L Hemoglobin 7.5 G/DL (12.0-16.0) L 8.0 G/DL (12.0-16.0) L Hematocrit 24.1 % (37.0-47.0) L 25.8 % (37.0-47.0) L Mean Corpuscular Volume 96 FL (80-99) 96 FL (80-99) Mean Corpuscular Hemoglobin 29.9 PG (27.0-31.0) 30.0 PG (27.0-31.0) Mean Corpuscular Hemoglobin Concent 31.1 G/DL (32.0-36.0) L 31.2 G/DL (32.0-36.0) L Red Cell Distribution Width 14.5 % (11.6-14.8) 14.7 % (11.6-14.8) Platelet Count 304 K/UL (150-450) 328 K/UL (150-450) Mean Platelet Volume 8.0 FL (6.5-10.1) 7.6 FL (6.5-10.1) Neutrophils (%) (Auto) % (45.0-75.0) 78.9 % (45.0-75.0) H Lymphocytes (%) (Auto) % (20.0-45.0) 7.1 % (20.0-45.0) L Monocytes (%) (Auto) % (1.0-10.0) 11.0 % (1.0-10.0) H Eosinophils (%) (Auto) % (0.0-3.0) 2.3 % (0.0-3.0) Basophils (%) (Auto) % (0.0-2.0) 0.7 % (0.0-2.0) Differential Total Cells Counted 100 Neutrophils % (Manual) 84 % (45-75) H Lymphocytes % (Manual) 6 % (20-45) L Monocytes % (Manual) 10 % (1-10) Eosinophils % (Manual) 0 % (0-3) Basophils % (Manual) 0 % (0-2) Band Neutrophils 0 % (0-8) Platelet Estimate Adequate Platelet Morphology Normal Hypochromasia 1+ Sodium Level 152 mEQ/L (135-145) H Potassium Level 3.8 mEQ/L (3.4-4.9) Chloride Level 111 mEQ/L (98-107) H Carbon Dioxide Level 33 mEQ/L (20-30) H Anion Gap 8 (5-15) Blood Urea Nitrogen 48 mg/dL (7-23) H Creatinine 0.8 mg/dL (0.5-0.9) Estimat Glomerular Filtration Rate > 60 mL/min (>60) Glucose Level 171 mg/dL (74-106) H Calcium Level 8.3 mg/dL (8.6-10.2) L Phosphorus Level 3.6 mg/dL (2.5-4.8) Magnesium Level 2.2 mg/dL (1.7-2.5) Total Bilirubin 0.9 mg/dL (0.0-1.2) Direct Bilirubin 0.5 mg/dL (0.1-0.3) H Aspartate Amino Transf (AST/SGOT) 28 U/L (5-40) Alanine Aminotransferase (ALT/SGPT) 5 U/L (3-33) Alkaline Phosphatase 82 U/L (35-104) C-Reactive Protein, Quantitative 10.5 mg/dL (< 0.5) H Pro-B-Type Natriuretic Peptide 2126 pg/mL (0-125) H Total Protein 5.8 g/dL (6.6-8.7) L Albumin 1.8 g/dL (3.5-5.2) L Lipase 118 U/L (< 60) H Arterial Blood pH 7.327 (7.350-7.450) Arterial Blood Partial Pressure CO2 66.6 mmHg (35.0-45.0) *H Arterial Blood Partial Pressure O2 96.7 mmHg (75.0-100.0) Arterial Blood HCO3 34.1 mmol/L (22.0-26.0) H Arterial Blood Oxygen Saturation 95.6 % (92.0-98.0) Arterial Blood Base Excess 6.9 Ok Test Positive Current Medications Medications (Trade) Dose Ordered Sig/Lisbeth Route PRN Reason Start Time Stop Time Status Last Admin Dose Admin Acetaminophen (Tylenol) 650 mg Q4H PRN ORAL fever 12/17/16 08:00 01/16/17 07:59 12/21/16 08:19 Albuterol/ Ipratropium (DuoNeb 0.5-3(2.5)mg/3ml) 3 ml Q4H PRN HHN sob 12/23/16 11:30 12/28/16 11:29 Amlodipine Besylate (Norvasc) 5 mg Q12HR ORAL 12/22/16 21:00 01/21/17 20:59 12/24/16 09:13 Clonidine HCl 0.1 mg 0.1 mg Q4H PRN ORAL SBP >160 12/22/16 10:45 01/21/17 10:44 12/23/16 10:15 Dextrose (D10w) 1,000 ml @ 80 mls/hr [id number] PRN IV If TPN interrupted 12/17/16 07:30 01/16/17 07:29 Dextrose (Dextrose 50%) STAT PRN IV Hypoglycemia 12/17/16 07:30 01/16/17 07:29 Fat Emulsion Intravenous/Amino Acids/ Electrolytes/ Dextrose (Intralipids/Tpn) 2,232 ml @ 93 mls/hr Q24H IV 12/23/16 21:00 01/22/17 20:59 12/23/16 21:13 Fluconazole/ Sodium Chloride (Diflucan 200mg/ 100ml Premix) 100 ml @ 100 mls/hr Q24H IV 12/19/16 23:00 12/26/16 22:59 12/23/16 22:51 Furosemide (Lasix) 20 mg EVERY 12 HOURS IV 12/24/16 11:30 01/23/17 11:29 Heparin Sodium/ Dextrose (Heparin) 500 ml @ 23.678 mls/ hr adjust per protocol IV 12/22/16 23:30 01/21/17 23:29 12/24/16 06:03 Insulin Aspart (NovoLOG) No Dose Q6HR SUBQ 12/17/16 12:00 01/16/17 11:59 12/24/16 06:02 Lorazepam 1 mg 1 mg Q4H PRN IV For Anxiety 12/23/16 08:45 12/30/16 08:44 12/23/16 18:17 Meropenem 500 mg/ Sodium Chloride 55 ml @ 110 mls/hr Q12HR@0600,1800 IV 12/19/16 18:00 12/24/16 17:59 12/24/16 05:59 Morphine Sulfate (Morphine Sulfate) 4 mg Q4H PRN IVP Severe Pain (Pain Scale 7-10) 12/23/16 11:50 12/27/16 11:49 12/24/16 09:13 Nitroglycerin (Nitro-Bid) 1 inch TID@0600,1200,1800 TOPIC 12/22/16 06:00 01/21/17 05:59 12/24/16 06:04 Nitroglycerin (Ntg) 0.4 mg Q5M X 3 DOSES PRN SL Prn Chest Pain 12/17/16 07:30 01/16/17 07:29 Ondansetron HCl (Zofran) 4 mg Q6H PRN IVP Nausea & Vomiting 12/17/16 07:30 01/16/17 07:29 Pantoprazole 40 mg 40 mg DAILY IVP 12/20/16 09:00 01/19/17 08:59 12/24/16 09:13 Phytonadione (Vitamin K) 10 mg QWEEK SUBQ 12/23/16 21:00 01/22/17 20:59 12/23/16 21:07 Polyethylene Glycol (Miralax) 17 gm HSPRN PRN ORAL Constipation 12/17/16 07:30 01/16/17 07:29 Sucralfate (Carafate) 1 gm FOUR TIMES A DAY ORAL 12/17/16 09:00 01/16/17 08:59 12/24/16 09:13 OSCAR ANDERSON M.D. Dec 24, 2016 12:19
--- NOTE | 2016-12-24 12:26 | General Progress Note ---
Assessment/Plan Status: stable Status Narrative continues with rectal bleed Assessment/Plan status: Acute Renal Failure- High A1c Sepsis / Pancreatitis / Gall stones Atrila Fib High INR s/ bioprostheic Aortic Valve repalcment 2014 s/p terrazzo mechanic Mirtral Vavle prosthesis on anticoagulation Pulmonary HTN HypoAlbuminemia Plan: Per GI / Surgery On TPN Keep BP under control Avoid nephrotoxics K supplement as needed monitor renal parameters Subjective ROS Limited/Unobtainable: Yes Allergies: Coded Allergies: No Known Allergies (Unverified , 09/28/14) Objective Last 24 Hour Vital Signs Date Time Temp Pulse Resp B/P Pulse Ox O2 Delivery O2 Flow Rate FiO2 12/24/16 11:05 90 20 35 12/24/16 11:00 87 19 147/91 100 Mechanical Ventilator 35 12/24/16 10:00 35 12/24/16 10:00 35 12/24/16 10:00 89 19 152/71 100 Mechanical Ventilator 35 12/24/16 09:40 98.1 12/24/16 09:13 91 162/55 12/24/16 09:00 91 18 156/52 100 Mechanical Ventilator 35 12/24/16 08:33 78 26 35 12/24/16 08:32 99 12/24/16 08:30 35 12/24/16 08:00 87 18 151/42 100 Mechanical Ventilator 35 12/24/16 08:00 75 12/24/16 08:00 35 12/24/16 07:10 91 21 35 12/24/16 07:00 98.1 79 20 159/61 100 Mechanical Ventilator 35 12/24/16 06:04 148/45 12/24/16 06:00 72 18 156/63 100 Mechanical Ventilator 35 12/24/16 05:07 79 21 35 12/24/16 05:00 74 18 148/45 100 Mechanical Ventilator 35 12/24/16 04:00 97.5 76 18 148/45 100 Mechanical Ventilator 35 12/24/16 04:00 35 12/24/16 04:00 73 12/24/16 03:00 78 18 145/45 100 Mechanical Ventilator 35 12/24/16 02:45 71 17 35 12/24/16 02:00 72 18 144/38 100 Mechanical Ventilator 35 12/24/16 01:01 69 19 35 12/24/16 01:00 68 18 150/42 100 Mechanical Ventilator 35 12/24/16 00:00 35 12/24/16 00:00 97.5 70 18 143/42 100 Mechanical Ventilator 35 12/24/16 00:00 66 12/23/16 23:00 70 18 130/36 100 Mechanical Ventilator 35 12/23/16 22:59 67 17 35 12/23/16 22:00 73 18 136/36 100 Mechanical Ventilator 35 12/23/16 21:25 79 18 35 12/23/16 21:06 82 165/47 12/23/16 21:00 81 19 165/47 100 Mechanical Ventilator 35 12/23/16 20:00 69 12/23/16 20:00 35 12/23/16 20:00 97.5 69 19 147/39 100 Mechanical Ventilator 35 12/23/16 19:00 72 18 145/42 100 Mechanical Ventilator 35 12/23/16 18:48 69 18 35 12/23/16 18:00 85 18 147/43 100 Mechanical Ventilator 35 12/23/16 17:48 154/38 12/23/16 17:00 75 18 154/38 100 Mechanical Ventilator 35 12/23/16 16:51 71 17 35 12/23/16 16:00 35 12/23/16 16:00 74 12/23/16 16:00 97.9 69 18 147/8 100 Mechanical Ventilator 35 12/23/16 15:00 65 18 143/41 100 Mechanical Ventilator 35 12/23/16 14:46 73 20 35 12/23/16 14:00 69 18 144/38 100 Mechanical Ventilator 35 12/23/16 13:00 73 16 136/39 100 Mechanical Ventilator 35 12/23/16 12:38 72 20 35 Intake and Output 12/23/16 12/24/16 19:00 07:00 Intake Total 2025.558 ml 1462.136 ml Output Total 1760 ml 1210 ml Balance 265.558 ml 252.136 ml Free Water 30 ml IV Total 1825.558 ml 1462.136 ml Other 170 ml Output Urine Total 1760 ml 1210 ml # Bowel Movements 3 Laboratory Tests 12/23/16 14:30: Activated Partial Thromboplast Time 68H 12/24/16 04:00: Activated Partial Thromboplast Time 62H, White Blood Count 10.5, Red Blood Count 2.51L, Hemoglobin 7.5L, Hematocrit 24.1L, Mean Corpuscular Volume 96, Mean Corpuscular Hemoglobin 29.9, Mean Corpuscular Hemoglobin Concent 31.1L, Red Cell Distribution Width 14.5, Platelet Count 304, Mean Platelet Volume 8.0, Neutrophils (%) (Auto) , Lymphocytes (%) (Auto) , Monocytes (%) (Auto) , Eosinophils (%) (Auto) , Basophils (%) (Auto) , Differential Total Cells Counted 100, Neutrophils % (Manual) 84H, Lymphocytes % (Manual) 6L, Monocytes % (Manual) 10, Eosinophils % (Manual) 0, Basophils % (Manual) 0, Band Neutrophils 0, Platelet Estimate Adequate, Platelet Morphology Normal, Hypochromasia 1+, Sodium Level 152H, Potassium Level 3.8, Chloride Level 111H, Carbon Dioxide Level 33H, Anion Gap 8, Blood Urea Nitrogen 48H, Creatinine 0.8, Estimat Glomerular Filtration Rate > 60, Glucose Level 171H, Calcium Level 8.3L, Phosphorus Level 3.6, Magnesium Level 2.2, Total Bilirubin 0.9, Direct Bilirubin 0.5H, Aspartate Amino Transf (AST/SGOT) 28, Alanine Aminotransferase ( ALT/SGPT) 5, Alkaline Phosphatase 82, C-Reactive Protein, Quantitative 10.5H, Pro-B-Type Natriuretic Peptide 2126H, Total Protein 5.8L, Albumin 1.8L, Lipase 118H 12/24/16 06:00: White Blood Count 11.2H, Red Blood Count 2.68L, Hemoglobin 8.0L, Hematocrit 25.8L, Mean Corpuscular Volume 96, Mean Corpuscular Hemoglobin 30.0, Mean Corpuscular Hemoglobin Concent 31.2L, Red Cell Distribution Width 14.7, Platelet Count 328, Mean Platelet Volume 7.6, Neutrophils (%) (Auto) 78.9H, Lymphocytes (%) (Auto) 7.1L, Monocytes (%) (Auto) 11.0H, Eosinophils (%) (Auto) 2.3, Basophils (%) (Auto) 0.7 12/24/16 09:40: Arterial Blood pH 7.327L, Arterial Blood Partial Pressure CO2 66.6*H, Arterial Blood Partial Pressure O2 96.7, Arterial Blood HCO3 34.1H, Arterial Blood Oxygen Saturation 95.6, Arterial Blood Base Excess 6.9, Ok Test Positive Height (Feet): 5 Height (Inches): 1.00 Weight (Pounds): 145 General Appearance: no apparent distress, other - intubated Cardiovascular: tachycardia Respiratory/Chest: decreased breath sounds Abdomen: soft Objective other PE not changed KAMINI SNOW Dec 24, 2016 12:26
[2016-12-24 14:47] LABS: MEAN CORPUSCULAR HEMOGLOBIN 29.2 PG (27.0-31.0); MEAN CORPUSCULAR VOLUME 97 FL (80-99); MEAN PLATELET VOLUME 7.1 FL (6.5-10.1); PLATELET COUNT 307 K/UL (150-450); RED BLOOD COUNT 2.65 M/UL (4.20-5.40); RED CELL DISTRIBUTION WIDTH 14.8 % (11.6-14.8); WHITE BLOOD COUNT 10.7 K/UL (4.8-10.8)
--- NOTE | 2016-12-24 14:48 | Diagnostic Imaging Report ---
Indication: SOB Technique: One view of the chest Comparison: 12/23/2016 Findings: Stable satisfactory positions of endotracheal tube, nasogastric tube, left arm PICC. There is slightly decreased interstitial and alveolar disease, particularly on the left Impression: Slight improvement of parenchymal disease, over one day Other stable findings as described
--- NOTE | 2016-12-24 16:09 | GI Progress Note ---
Assessment/Plan Problems: (1) Pancreatitis ICD Codes: K85.9 - Acute pancreatitis, unspecified SNOMED: 03530813 Qualifiers: Qualified Codes: K85.10 - Biliary acute pancreatitis without necrosis or infection (2) Abdominal pain ICD Codes: R10.9 - Unspecified abdominal pain SNOMED: 59945840, 530579013 (3) Iron deficiency anemia ICD Codes: D50.9 - Iron deficiency anemia, unspecified SNOMED: 59557559 (4) Colon polyp ICD Codes: K63.5 - Polyp of colon SNOMED: 59997189 Status: unchanged Status Narrative Discussed with Dr. Gipson. Assessment/Plan Assessment Pancreatitis - resolving, but abdomen still very distended cholelithiasis, no e/o choledocholithiasis Leukocytosis improving Respiratory failure Azotemia improving Anemia colon polyp Guarded Assessment/Plan TPN abx follow labs supportive care fu CT surgical planning Subjective Subjective limited Objective Last 24 Hour Vital Signs Date Time Temp Pulse Resp B/P Pulse Ox O2 Delivery O2 Flow Rate FiO2 12/24/16 16:00 98.8 98 22 154/50 98 Mechanical Ventilator 35 12/24/16 16:00 98 12/24/16 15:09 82 15 35 12/24/16 15:00 35 12/24/16 15:00 71 20 155/51 99 Mechanical Ventilator 35 12/24/16 14:00 83 20 153/42 100 Mechanical Ventilator 35 12/24/16 13:00 82 18 154/43 100 Mechanical Ventilator 35 12/24/16 12:43 160/60 12/24/16 12:39 87 26 35 12/24/16 12:00 89 12/24/16 12:00 98.7 92 19 160/68 100 Mechanical Ventilator 35 12/24/16 11:05 90 20 35 12/24/16 11:00 87 19 147/91 100 Mechanical Ventilator 35 12/24/16 10:00 35 12/24/16 10:00 35 12/24/16 10:00 89 19 152/71 100 Mechanical Ventilator 35 12/24/16 09:40 98.1 12/24/16 09:13 91 162/55 12/24/16 09:00 91 18 156/52 100 Mechanical Ventilator 35 12/24/16 08:33 78 26 35 12/24/16 08:32 99 12/24/16 08:30 35 12/24/16 08:00 87 18 151/42 100 Mechanical Ventilator 35 12/24/16 08:00 75 12/24/16 08:00 35 12/24/16 07:10 91 21 35 12/24/16 07:00 98.1 79 20 159/61 100 Mechanical Ventilator 35 12/24/16 06:04 148/45 12/24/16 06:00 72 18 156/63 100 Mechanical Ventilator 35 12/24/16 05:07 79 21 35 12/24/16 05:00 74 18 148/45 100 Mechanical Ventilator 35 12/24/16 04:00 97.5 76 18 148/45 100 Mechanical Ventilator 35 12/24/16 04:00 35 12/24/16 04:00 73 12/24/16 03:00 78 18 145/45 100 Mechanical Ventilator 35 12/24/16 02:45 71 17 35 12/24/16 02:00 72 18 144/38 100 Mechanical Ventilator 35 12/24/16 01:01 69 19 35 12/24/16 01:00 68 18 150/42 100 Mechanical Ventilator 35 12/24/16 00:00 35 12/24/16 00:00 97.5 70 18 143/42 100 Mechanical Ventilator 35 12/24/16 00:00 66 12/23/16 23:00 70 18 130/36 100 Mechanical Ventilator 35 12/23/16 22:59 67 17 35 12/23/16 22:00 73 18 136/36 100 Mechanical Ventilator 35 12/23/16 21:25 79 18 35 12/23/16 21:06 82 165/47 12/23/16 21:00 81 19 165/47 100 Mechanical Ventilator 35 12/23/16 20:00 69 12/23/16 20:00 35 12/23/16 20:00 97.5 69 19 147/39 100 Mechanical Ventilator 35 12/23/16 19:00 72 18 145/42 100 Mechanical Ventilator 35 12/23/16 18:48 69 18 35 12/23/16 18:00 85 18 147/43 100 Mechanical Ventilator 35 12/23/16 17:48 154/38 12/23/16 17:00 75 18 154/38 100 Mechanical Ventilator 35 12/23/16 16:51 71 17 35 Intake and Output 12/23/16 12/24/16 19:00 07:00 Intake Total 2025.558 ml 1462.136 ml Output Total 1760 ml 1210 ml Balance 265.558 ml 252.136 ml Free Water 30 ml IV Total 1825.558 ml 1462.136 ml Other 170 ml Output Urine Total 1760 ml 1210 ml # Bowel Movements 3 Laboratory Tests Test 12/24/16 04:00 12/24/16 06:00 12/24/16 09:40 12/24/16 14:10 White Blood Count 10.5 K/UL (4.8-10.8) 11.2 K/UL (4.8-10.8) H 10.7 K/UL (4.8-10.8) Red Blood Count 2.51 M/UL (4.20-5.40) L 2.68 M/UL (4.20-5.40) L 2.65 M/UL (4.20-5.40) L Hemoglobin 7.5 G/DL (12.0-16.0) L 8.0 G/DL (12.0-16.0) L 7.7 G/DL (12.0-16.0) L Hematocrit 24.1 % (37.0-47.0) L 25.8 % (37.0-47.0) L 25.7 % (37.0-47.0) L Mean Corpuscular Volume 96 FL (80-99) 96 FL (80-99) 97 FL (80-99) Mean Corpuscular Hemoglobin 29.9 PG (27.0-31.0) 30.0 PG (27.0-31.0) 29.2 PG (27.0-31.0) Mean Corpuscular Hemoglobin Concent 31.1 G/DL (32.0-36.0) L 31.2 G/DL (32.0-36.0) L 30.0 G/DL (32.0-36.0) L Red Cell Distribution Width 14.5 % (11.6-14.8) 14.7 % (11.6-14.8) 14.8 % (11.6-14.8) Platelet Count 304 K/UL (150-450) 328 K/UL (150-450) 307 K/UL (150-450) Mean Platelet Volume 8.0 FL (6.5-10.1) 7.6 FL (6.5-10.1) 7.1 FL (6.5-10.1) Neutrophils (%) (Auto) % (45.0-75.0) 78.9 % (45.0-75.0) H % (45.0-75.0) Lymphocytes (%) (Auto) % (20.0-45.0) 7.1 % (20.0-45.0) L % (20.0-45.0) Monocytes (%) (Auto) % (1.0-10.0) 11.0 % (1.0-10.0) H % (1.0-10.0) Eosinophils (%) (Auto) % (0.0-3.0) 2.3 % (0.0-3.0) % (0.0-3.0) Basophils (%) (Auto) % (0.0-2.0) 0.7 % (0.0-2.0) % (0.0-2.0) Differential Total Cells Counted 100 Neutrophils % (Manual) 84 % (45-75) H Pending Lymphocytes % (Manual) 6 % (20-45) L Pending Monocytes % (Manual) 10 % (1-10) Eosinophils % (Manual) 0 % (0-3) Basophils % (Manual) 0 % (0-2) Band Neutrophils 0 % (0-8) Platelet Estimate Adequate Pending Platelet Morphology Normal Pending Hypochromasia 1+ Activated Partial Thromboplast Time 62 SEC (23-33) H 54 SEC (23-33) H Sodium Level 152 mEQ/L (135-145) H Potassium Level 3.8 mEQ/L (3.4-4.9) Chloride Level 111 mEQ/L (98-107) H Carbon Dioxide Level 33 mEQ/L (20-30) H Anion Gap 8 (5-15) Blood Urea Nitrogen 48 mg/dL (7-23) H Creatinine 0.8 mg/dL (0.5-0.9) Estimat Glomerular Filtration Rate > 60 mL/min (>60) Glucose Level 171 mg/dL (74-106) H Calcium Level 8.3 mg/dL (8.6-10.2) L Phosphorus Level 3.6 mg/dL (2.5-4.8) Magnesium Level 2.2 mg/dL (1.7-2.5) Total Bilirubin 0.9 mg/dL (0.0-1.2) Direct Bilirubin 0.5 mg/dL (0.1-0.3) H Aspartate Amino Transf (AST/SGOT) 28 U/L (5-40) Alanine Aminotransferase (ALT/SGPT) 5 U/L (3-33) Alkaline Phosphatase 82 U/L (35-104) C-Reactive Protein, Quantitative 10.5 mg/dL (< 0.5) H Pro-B-Type Natriuretic Peptide 2126 pg/mL (0-125) H Total Protein 5.8 g/dL (6.6-8.7) L Albumin 1.8 g/dL (3.5-5.2) L Lipase 118 U/L (< 60) H Arterial Blood pH 7.327 (7.350-7.450) Arterial Blood Partial Pressure CO2 66.6 mmHg (35.0-45.0) *H Arterial Blood Partial Pressure O2 96.7 mmHg (75.0-100.0) Arterial Blood HCO3 34.1 mmol/L (22.0-26.0) H Arterial Blood Oxygen Saturation 95.6 % (92.0-98.0) Arterial Blood Base Excess 6.9 Ok Test Positive Height (Feet): 5 Height (Inches): 1.00 Weight (Pounds): 145 General Appearance: no apparent distress Cardiovascular: normal rate Respiratory/Chest: other - mech vent Abdominal Exam: normal bowel sounds, non tender, soft, other - TPN Objective Service Date: 12/11/16 Procedure: MRI Abdomen no Contrast Indication: Abdominal pain, possible pancreatitis Findings: Multiple calcifications are seen within the gallbladder. There is a ductal structure cephalad to the gallbladder which contains a filling defect. This is probably the cystic duct, but could be an extrahepatic bile duct, and it is uncertain which of these is. The gallbladder wall is not thickened. The extrahepatic bile ducts are ectatic, with the common bile duct measuring up to 9 mm diameter , but no downstream filling defects are demonstrated. The common bile duct terminates abruptly at the level of the ampulla. The pancreatic duct is mildly ectatic, measuring 3-4 mm in diameter. No intraluminal filling defects are demonstrated. A 7 mm fluid signal lesion is seen within the uncinate process of the pancreas. This may actually be a duodenal diverticulum which is seen on the recent CT scan. There is apparent swelling of the pancreas and considerable free intraperitoneal fluid. No free intraperitoneal fluid presumably increased from the prior CT scan. There are dilated small bowel loops, likely indicating ileus. The liver is unremarkable. The adrenals and kidneys are unremarkable. There are bilateral small pleural effusions. The spleen is unremarkable. The heart is enlarged Impression: Cholelithiasis. There is also a calculus within the duct adjacent to the gallbladder which is probably the cystic duct but could be an extrahepatic bile duct. Extrahepatic and central intrahepatic biliary ductal mild dilatation. No definite downstream calculus or pancreatic head mass to account for this, however. Prominence and edema of the pancreas, better visualized on prior CT scan, consistent with acute pancreatitis, also previously described Ascites fluid, increased from the prior CT scan, likely secondary to the acute pancreatitis Dilated small bowel loops, new since prior CT study. Suspect representing ileus related to the pancreatitis Bilateral small pleural effusions Small cystic lesion within the as a process. Suspect that this is actually the duodenal diverticulum described on recent CT scan, but could represent a tiny pseudocyst or intraductal papillary mucinous neoplasm. Cardiomegaly Lulu Dominguez N.P. Dec 24, 2016 16:09
--- NOTE | 2016-12-24 16:19 | Diagnostic Imaging Report ---
Clinical Indication: Abdominal distention, pancreatitis Technique: Patient given oral contrast. IV administration nonionic contrast. Venous phase spiral acquisition obtained through the abdomen and pelvis. Multiplanar reconstructions were generated. Total dose length product 1891 mGycm. CTDIvol(s) 25, 21, 19 mGy. Dose reduction achieved using automated exposure control Comparison: 12/16/2016 Findings: There is interim slight decrease in attenuation of the pancreatic head. The remainder of the pancreas perfuses normally. There are is only minimal swelling of the pancreas, which is unchanged. Infiltration of the peripancreatic fat and fat of the mesenteric root appears similar to the prior exam, may be minimally improved. Small to moderate amount of ascites fluid appears similar in extent to the previous exam. Small duodenal diverticulum is again demonstrated. There is a mixed attenuation mass contiguous with the distal descending colon, located posteriorly and laterally to it, and a loop of small bowel slight over it anteriorly and narrowed by, which measures 6 x 4.4 x 4.9 cm in diameter. This was not evident previously. There is a similar appearing mass is seen within the peritoneal space anterolateral to the tip of the spleen, which measures 5.8 x 2 cm. This is likewise not evident previously. It demonstrates similar mixed attenuation. A very small similar lesion is seen adjacent to the medial aspect of the spleen anteriorly, best seen on image 37, measures approximately 2.5 cm in diameter. Again demonstrated is cholelithiasis. No loculated fluid collections are demonstrated. No biliary ductal. No gallbladder wall thickening. Contrast is seen throughout the entirety of the small bowel and reaches the hepatic flexure the colon.. Small bowel loops are slightly prominent, similar to the previous exam. The colon is gas-filled, upper limits of normal in caliber. No evidence of diverticulosis or diverticulitis. The appendix is normal. No free intraperitoneal air. There is a nasogastric tube in place, tip at the level of the gastric fundus. Liver demonstrates equivocal slight surface nodularity, with early cirrhotic change not excludable. The portal and splenic veins are patent. The spleen, adrenals, left kidney are unremarkable. The right kidney demonstrates some cortical scarring and a subcentimeter low-attenuation lesion in the lower pole cortex which was better seen previously. No retroperitoneal or mesenteric mass or adenopathy. No pelvic mass or adenopathy. There is a Mathias catheter within the bladder, which nonetheless is not completely empty. There is diffuse and extensive edema of the subcutaneous fat. This appears more extensive in some areas, particularly the lower anterior and lateral pelvis, and less extensive and other areas such as the lumbar region. Bilateral pleural effusion appear similar to the previous study. Bilateral basilar pulmonary consolidative and atelectatic changes appear worse on the right currently, less severe on the left. The heart is again seen to be massively enlarged. A mitral valve prosthesis is again demonstrated. The bones are unremarkable. Impression: Again demonstrated is evidence of acute pancreatitis, with mild pancreatic swelling, extensive of the peripancreatic, mesenteric, and omental fat. There is equivocal focal slight decrease in attenuation of the pancreatic head, which could suggest a lobe indicate early necrotic change, but this is doubtful. No focal fluid collections to suggest pseudocyst are evident. New finding of a 6 x 4.4 x 4.9 cm masslike lesion in the left paracolic gutter, which compresses and splays but does not appear to obstruct an adjacent small bowel loop. Morphology and rapid interval appearance suggested this is a hematoma. A second similar lesion is seen anterior, inferior, and lateral the spleen, and a third is seen medial to the anterior spleen. These also likely represent small -- spontaneous hematomas. Ascites, essentially unchanged from the previous study. There are other manifestations of anasarca, as well. Diffuse body wall edema appears to be shifting the overall unchanged in extent. There are also bilateral pleural effusions which appear similar to the prior exam Bilateral basilar atelectasis and consolidation, worse on the right, slightly improved on the left Cholelithiasis, also previously described Cardiomegaly, also previously described Mathias catheter Stable subcentimeter right lower pole renal lesion, most likely benign simple cyst Small duodenal diverticulum incidentally noted The CT scanner at [facility] is accredited by the [employer] and the scans are performed using protocols designed to limit radiation exposure to as low as reasonably achievable to attain images of sufficient resolution adequate for diagnostic evaluation.
[2016-12-24 16:49] LABS: BAND NEUTROPHILS % (MANUAL) 1 % (0-8); BASOPHILS % (MANUAL) 1 % (0-2); EOSINOPHILS % (MANUAL) 2 % (0-3); LYMPHOCYTES % (MANUAL) 8 % (20-45); NEUTROPHILS % (MANUAL) 83 % (45-75); TOTAL CELLS COUNTED 100
[2016-12-24 16:50] LABS: ANISOCYTOSIS 1+; HYPOCHROMASIA 1+; PLATELET ESTIMATE ADEQUATE; PLATELET MORPHOLOGY NORMAL; POLYCHROMASIA 1+
[2016-12-24] MEDS: Anusol HC Supp RECTAL SCH (17:36)
--- NOTE | 2016-12-24 19:37 | Cardiology Progress Note ---
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 on anticoagulation perm afib on anticoagualtion with couamdin coagulaopathy now elevated dueot med interaction adn disease process leukocytosis ARF intra abd hematomas brbpr has been havign bloody bm but no sig drop in h/h despite ct performed to day ]nwo shows multip hematomas in barber bd cavity will dc heparin for 24 hour sthen resume d/w gi d/w rn repeat cbc will need to considre transfusion bp has been prefect so far will give more diuretics repet echo will need to resuem anticoagualtion soon for prevention of valvulare thrombosis and emboli Subjective Cardiovascular: Denies: chest pain, lightheadedness, palpitations Respiratory: Denies: shortness of breath Gastrointestinal/Abdominal: Denies: abdominal pain Genitourinary: Denies: burning Subjective on the vent Objective Last 24 Hour Vital Signs Date Time Temp Pulse Resp B/P Pulse Ox O2 Delivery O2 Flow Rate FiO2 12/24/16 19:00 86 22 155/52 98 Mechanical Ventilator 35 12/24/16 18:00 91 21 151/51 98 Mechanical Ventilator 35 12/24/16 17:36 154/48 12/24/16 17:00 95 20 155/48 98 Mechanical Ventilator 35 12/24/16 16:45 98.8 12/24/16 16:39 94 21 35 12/24/16 16:00 98.8 98 22 154/50 98 Mechanical Ventilator 35 12/24/16 16:00 98 12/24/16 15:09 82 15 35 12/24/16 15:00 35 12/24/16 15:00 71 20 155/51 99 Mechanical Ventilator 35 12/24/16 14:00 83 20 153/42 100 Mechanical Ventilator 35 12/24/16 13:00 82 18 154/43 100 Mechanical Ventilator 35 12/24/16 12:43 160/60 12/24/16 12:39 87 26 35 12/24/16 12:00 89 12/24/16 12:00 98.7 92 19 160/68 100 Mechanical Ventilator 35 12/24/16 11:05 90 20 35 12/24/16 11:00 87 19 147/91 100 Mechanical Ventilator 35 12/24/16 10:00 35 12/24/16 10:00 35 12/24/16 10:00 89 19 152/71 100 Mechanical Ventilator 35 12/24/16 09:13 91 162/55 12/24/16 09:00 91 18 156/52 100 Mechanical Ventilator 35 12/24/16 08:33 78 26 35 12/24/16 08:32 99 12/24/16 08:30 35 12/24/16 08:00 87 18 151/42 100 Mechanical Ventilator 35 12/24/16 08:00 75 12/24/16 08:00 35 12/24/16 07:10 91 21 35 12/24/16 07:00 98.1 79 20 159/61 100 Mechanical Ventilator 35 12/24/16 06:04 148/45 12/24/16 06:00 72 18 156/63 100 Mechanical Ventilator 35 12/24/16 05:07 79 21 35 12/24/16 05:00 74 18 148/45 100 Mechanical Ventilator 35 12/24/16 04:00 97.5 76 18 148/45 100 Mechanical Ventilator 35 12/24/16 04:00 35 12/24/16 04:00 73 12/24/16 03:00 78 18 145/45 100 Mechanical Ventilator 35 12/24/16 02:45 71 17 35 12/24/16 02:00 72 18 144/38 100 Mechanical Ventilator 35 12/24/16 01:01 69 19 35 12/24/16 01:00 68 18 150/42 100 Mechanical Ventilator 35 12/24/16 00:00 35 12/24/16 00:00 97.5 70 18 143/42 100 Mechanical Ventilator 35 12/24/16 00:00 66 12/23/16 23:00 70 18 130/36 100 Mechanical Ventilator 35 12/23/16 22:59 67 17 35 12/23/16 22:00 73 18 136/36 100 Mechanical Ventilator 35 12/23/16 21:25 79 18 35 12/23/16 21:06 82 165/47 12/23/16 21:00 81 19 165/47 100 Mechanical Ventilator 35 12/23/16 20:00 69 12/23/16 20:00 35 12/23/16 20:00 97.5 69 19 147/39 100 Mechanical Ventilator 35 General Appearance: no apparent distress, alert, on vent Neck: supple Cardiovascular: irregularly irregular, other - mechanical heart sound Respiratory/Chest: lungs clear Abdomen: normal bowel sounds, non tender, soft Extremities: moderate edema Intake and Output 12/23/16 12/24/16 19:00 07:00 Intake Total 2025.558 ml 1462.136 ml Output Total 1760 ml 1210 ml Balance 265.558 ml 252.136 ml Free Water 30 ml IV Total 1825.558 ml 1462.136 ml Other 170 ml Output Urine Total 1760 ml 1210 ml # Bowel Movements 3 Laboratory Tests Test 12/24/16 04:00 12/24/16 06:00 12/24/16 09:40 12/24/16 14:10 White Blood Count 10.5 K/UL (4.8-10.8) 11.2 K/UL (4.8-10.8) H 10.7 K/UL (4.8-10.8) Red Blood Count 2.51 M/UL (4.20-5.40) L 2.68 M/UL (4.20-5.40) L 2.65 M/UL (4.20-5.40) L Hemoglobin 7.5 G/DL (12.0-16.0) L 8.0 G/DL (12.0-16.0) L 7.7 G/DL (12.0-16.0) L Hematocrit 24.1 % (37.0-47.0) L 25.8 % (37.0-47.0) L 25.7 % (37.0-47.0) L Mean Corpuscular Volume 96 FL (80-99) 96 FL (80-99) 97 FL (80-99) Mean Corpuscular Hemoglobin 29.9 PG (27.0-31.0) 30.0 PG (27.0-31.0) 29.2 PG (27.0-31.0) Mean Corpuscular Hemoglobin Concent 31.1 G/DL (32.0-36.0) L 31.2 G/DL (32.0-36.0) L 30.0 G/DL (32.0-36.0) L Red Cell Distribution Width 14.5 % (11.6-14.8) 14.7 % (11.6-14.8) 14.8 % (11.6-14.8) Platelet Count 304 K/UL (150-450) 328 K/UL (150-450) 307 K/UL (150-450) Mean Platelet Volume 8.0 FL (6.5-10.1) 7.6 FL (6.5-10.1) 7.1 FL (6.5-10.1) Neutrophils (%) (Auto) % (45.0-75.0) 78.9 % (45.0-75.0) H % (45.0-75.0) Lymphocytes (%) (Auto) % (20.0-45.0) 7.1 % (20.0-45.0) L % (20.0-45.0) Monocytes (%) (Auto) % (1.0-10.0) 11.0 % (1.0-10.0) H % (1.0-10.0) Eosinophils (%) (Auto) % (0.0-3.0) 2.3 % (0.0-3.0) % (0.0-3.0) Basophils (%) (Auto) % (0.0-2.0) 0.7 % (0.0-2.0) % (0.0-2.0) Differential Total Cells Counted 100 100 Neutrophils % (Manual) 84 % (45-75) H 83 % (45-75) H Lymphocytes % (Manual) 6 % (20-45) L 8 % (20-45) L Monocytes % (Manual) 10 % (1-10) 5 % (1-10) Eosinophils % (Manual) 0 % (0-3) 2 % (0-3) Basophils % (Manual) 0 % (0-2) 1 % (0-2) Band Neutrophils 0 % (0-8) 1 % (0-8) Platelet Estimate Adequate Adequate Platelet Morphology Normal Normal Hypochromasia 1+ 1+ Activated Partial Thromboplast Time 62 SEC (23-33) H 54 SEC (23-33) H Sodium Level 152 mEQ/L (135-145) H Potassium Level 3.8 mEQ/L (3.4-4.9) Chloride Level 111 mEQ/L (98-107) H Carbon Dioxide Level 33 mEQ/L (20-30) H Anion Gap 8 (5-15) Blood Urea Nitrogen 48 mg/dL (7-23) H Creatinine 0.8 mg/dL (0.5-0.9) Estimat Glomerular Filtration Rate > 60 mL/min (>60) Glucose Level 171 mg/dL (74-106) H Calcium Level 8.3 mg/dL (8.6-10.2) L Phosphorus Level 3.6 mg/dL (2.5-4.8) Magnesium Level 2.2 mg/dL (1.7-2.5) Total Bilirubin 0.9 mg/dL (0.0-1.2) Direct Bilirubin 0.5 mg/dL (0.1-0.3) H Aspartate Amino Transf (AST/SGOT) 28 U/L (5-40) Alanine Aminotransferase (ALT/SGPT) 5 U/L (3-33) Alkaline Phosphatase 82 U/L (35-104) C-Reactive Protein, Quantitative 10.5 mg/dL (< 0.5) H Pro-B-Type Natriuretic Peptide 2126 pg/mL (0-125) H Total Protein 5.8 g/dL (6.6-8.7) L Albumin 1.8 g/dL (3.5-5.2) L Lipase 118 U/L (< 60) H Arterial Blood pH 7.327 (7.350-7.450) Arterial Blood Partial Pressure CO2 66.6 mmHg (35.0-45.0) *H Arterial Blood Partial Pressure O2 96.7 mmHg (75.0-100.0) Arterial Blood HCO3 34.1 mmol/L (22.0-26.0) H Arterial Blood Oxygen Saturation 95.6 % (92.0-98.0) Arterial Blood Base Excess 6.9 Ok Test Positive Polychromasia 1+ Anisocytosis 1+ Microbiology Date/Time Source Procedure Growth Status 12/22/16 19:50 Stool Clostridium difficile Toxin Assay - Final Complete ANNE RAM Dec 24, 2016 19:37
[2016-12-24] MEDS: Fat Emulsion Iv 20% 240 ML in Tpn 1,992 ML IV SCH (21:11)
[2016-12-24 21:20] LABS: EOSINOPHILS % (AUTO) 3.3 % (0.0-3.0); LYMPHOCYTES % (AUTO) 10.1 % (20.0-45.0); MEAN CORPUSCULAR HEMOGLOBIN 31.1 PG (27.0-31.0); MEAN CORPUSCULAR HGB CONC 31.6 G/DL (32.0-36.0); MEAN CORPUSCULAR VOLUME 99 FL (80-99); MEAN PLATELET VOLUME 6.9 FL (6.5-10.1); MONOCYTES % (AUTO) 10.3 % (1.0-10.0); NEUTROPHILS % (AUTO) 74.3 % (45.0-75.0); PLATELET COUNT 319 K/UL (150-450); RED CELL DISTRIBUTION WIDTH 14.6 % (11.6-14.8); WHITE BLOOD COUNT 11.5 K/UL (4.8-10.8)
[2016-12-24] MEDS: LORazepam Inj 2mg/ml 1ml IV PRN (21:52)
[2016-12-25] VITALS (24 sets, daily range): BP systolic 114–157; BP diastolic 39–75
[2016-12-25] MEDS: Nitroglycerin 2% oint pkt TOPIC SCH ×3 (05:45→17:40)
[2016-12-25] MEDS: NovoLOG Insulin Flexpen SUBQ SCH ×4 (05:48→23:22)
[2016-12-25 05:55] LABS: MEAN CORPUSCULAR HGB CONC 30.8 G/DL (32.0-36.0); MEAN CORPUSCULAR VOLUME 97 FL (80-99); MEAN PLATELET VOLUME 7.3 FL (6.5-10.1); PLATELET COUNT 317 K/UL (150-450); RED BLOOD COUNT 2.46 M/UL (4.20-5.40); RED CELL DISTRIBUTION WIDTH 14.4 % (11.6-14.8); WHITE BLOOD COUNT 10.1 K/UL (4.8-10.8)
[2016-12-25 06:26] LABS: ALANINE AMINOTRANSFERASE 14 U/L (3-33); ALBUMIN/GLOBULIN RATIO 0.4 (1.0-2.7); ANION GAP 9 (5-15); ASPARTATE AMINO TRANSFERASE 37 U/L (5-40); CALCIUM 8.6 mg/dL (8.6-10.2); CARBON DIOXIDE 34 mEQ/L (20-30); CHLORIDE 108 mEQ/L (98-107); CREATININE 0.8 mg/dL (0.5-0.9); GLOMERULAR FILTRATION RATE > 60 mL/min (>60); HEMOLYSIS 2; MAGNESIUM 2.3 mg/dL (1.7-2.5); PHOSPHORUS 3.8 mg/dL (2.5-4.8); POTASSIUM 3.9 mEQ/L (3.4-4.9); SODIUM 151 mEQ/L (135-145)
[2016-12-25 07:12] LABS: BILIRUBIN,DIRECT 0.6 mg/dL (0.1-0.3)
[2016-12-25] MEDS: Morphine Sulfate 4mg/ml Inj IVP PRN ×2 (08:03→15:54)
[2016-12-25] MEDS: Anusol HC Supp RECTAL SCH ×2 (08:04→17:40)
[2016-12-25] MEDS: Pantoprazole Inj IVP SCH (08:04)
[2016-12-25] MEDS: Sucralfate 1gm tab ORAL SCH ×4 (08:04→20:02)
[2016-12-25 09:48] LABS: ABG ALLEN TEST POSITIVE; ABG BASE EXCESS 12.5; ABG PCO2 64.1 mmHg (35.0-45.0)
[2016-12-25 10:17] LABS: ANISOCYTOSIS 1+; BAND NEUTROPHILS % (MANUAL) 0 % (0-8); BASOPHILS % (MANUAL) 0 % (0-2); EOSINOPHILS % (MANUAL) 1 % (0-3); HYPOCHROMASIA 1+; LYMPHOCYTES % (MANUAL) 12 % (20-45); NEUTROPHILS % (MANUAL) 79 % (45-75); PLATELET ESTIMATE ADEQUATE; PLATELET MORPHOLOGY NORMAL; TOTAL CELLS COUNTED 100
[2016-12-25] MEDS ORDERED: Tubing IV Secondary IV ONE (10:28)
[2016-12-25] MEDS ORDERED: NS 275ml ONE ×2 (10:28→10:54)
--- NOTE | 2016-12-25 10:33 | Pulmonolgy Critical Care Note ---
Critical Care - Asmt/Plan Problems: (1) Respiratory failure requiring intubation (2) Sepsis (3) Pancreatitis (4) ATN (acute tubular necrosis) (5) Atrial fibrillation Respiratory: monitor respiratory rate, adjust FIO2, CXR Cardiac: continue to monitor HR/BP Renal: F/U I&O, keep IV fluid Infectious Disease: check cultures, continue antibiotics Gastrointestinal: other - continue tpn Endocrine: monitor blood sugar, check HgA1C, continue sliding scale insulin Hematologic: monitor H/H, transfuse if hgb<8.5 Neurologic: PRN Ativan, PRN Morphine, keep patient comfortable Affect: PRN ativan Prophylaxis: Protonix Disposition: keep in ICU Notes 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, 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 Discussed with: nurses, consultants, case managersmanager decision support - Objective Last 24 Hour Vital Signs Date Time Temp Pulse Resp B/P Pulse Ox O2 Delivery O2 Flow Rate FiO2 12/25/16 09:22 35 12/25/16 09:17 99 12/25/16 09:15 81 16 35 12/25/16 09:00 76 18 131/41 99 Mechanical Ventilator 35 12/25/16 08:30 98.9 12/25/16 08:04 79 150/47 12/25/16 08:00 82 12/25/16 08:00 35 12/25/16 08:00 98.9 77 20 150/47 100 Mechanical Ventilator 35 12/25/16 07:25 101 28 35 12/25/16 07:00 76 20 152/39 99 Mechanical Ventilator 35 12/25/16 06:00 79 20 153/57 96 Mechanical Ventilator 35 12/25/16 05:45 144/46 12/25/16 05:00 83 23 114/46 99 Mechanical Ventilator 35 12/25/16 04:50 101 14 35 12/25/16 04:00 98.9 80 20 150/52 98 Mechanical Ventilator 35 12/25/16 04:00 77 12/25/16 04:00 35 12/25/16 03:24 81 18 35 12/25/16 03:00 75 22 153/45 99 Mechanical Ventilator 35 12/25/16 02:00 79 20 147/41 99 Mechanical Ventilator 35 12/25/16 01:07 76 17 35 12/25/16 01:00 84 19 148/48 98 Mechanical Ventilator 35 12/25/16 00:00 99.0 84 23 138/60 98 Mechanical Ventilator 35 12/25/16 00:00 84 12/24/16 23:06 35 12/24/16 23:06 92 20 35 12/24/16 23:00 92 26 160/54 98 Mechanical Ventilator 35 12/24/16 22:00 97 20 152/56 98 Mechanical Ventilator 35 12/24/16 21:44 99 24 170/52 97 Mechanical Ventilator 35 12/24/16 21:05 110 170/52 12/24/16 21:00 93 22 35 12/24/16 20:00 35 12/24/16 20:00 88 12/24/16 20:00 98.3 92 20 156/63 98 Mechanical Ventilator 35 12/24/16 19:39 98 24 35 12/24/16 19:00 86 22 155/52 98 Mechanical Ventilator 35 12/24/16 18:00 91 21 151/51 98 Mechanical Ventilator 35 12/24/16 17:36 154/48 12/24/16 17:00 95 20 155/48 98 Mechanical Ventilator 35 12/24/16 16:39 94 21 35 12/24/16 16:00 98.8 98 22 154/50 98 Mechanical Ventilator 35 12/24/16 16:00 98 12/24/16 15:09 82 15 35 12/24/16 15:00 35 12/24/16 15:00 71 20 155/51 99 Mechanical Ventilator 35 12/24/16 14:00 83 20 153/42 100 Mechanical Ventilator 35 12/24/16 13:00 82 18 154/43 100 Mechanical Ventilator 35 12/24/16 12:43 160/60 12/24/16 12:39 87 26 35 12/24/16 12:00 89 12/24/16 12:00 98.7 92 19 160/68 100 Mechanical Ventilator 35 12/24/16 11:05 90 20 35 12/24/16 11:00 87 19 147/91 100 Mechanical Ventilator 35 Status: awake Condition: critical HEENT: atraumatic Neck: full ROM Lungs: chest wall tender Heart: HR/BP stable Abdomen: soft, non-tender Extremities: no C/C/E Decubiti: location Micro: Microbiology Date/Time Source Procedure Growth Status 12/22/16 19:50 Stool Clostridium difficile Toxin Assay - Final Complete Accucheck: 180 Critical Care - Subjective ROS Limited/Unobtainable: Yes ICU Day: 9 Intubation Day: 9 Interval Events: awake, weaning Condition: critical EKG Rhythm: Sinus Rhythm FI02: 35 Vent Support Breath Rate: 10 Vent Support Mode: IMV/SIMV Vent Tidal Volume: 500 Sputum Amount: Moderate PEEP: 5.0 PIP: 37 Fluids: tpn I&O: Intake and Output 12/24/16 12/25/16 19:00 07:00 Intake Total 1923.814 ml 1090 ml Output Total 1600 ml 1950 ml Balance 323.814 ml -860 ml IV Total 1423.814 ml 1030 ml Other 500 ml 60 ml Output Urine Total 1600 ml 1950 ml # Bowel Movements 6 3 CXR: pulmonary edema, ET tube in good place ET-Tube: 7.5 ET Position: 22 Labs: Laboratory Tests Test 12/24/16 14:10 12/24/16 20:24 12/25/16 05:00 12/25/16 09:00 White Blood Count 10.7 K/UL (4.8-10.8) 11.5 K/UL (4.8-10.8) H 10.1 K/UL (4.8-10.8) Red Blood Count 2.65 M/UL (4.20-5.40) L 2.60 M/UL (4.20-5.40) L 2.46 M/UL (4.20-5.40) L Hemoglobin 7.7 G/DL (12.0-16.0) L 8.1 G/DL (12.0-16.0) L 7.4 G/DL (12.0-16.0) L Hematocrit 25.7 % (37.0-47.0) L 25.6 % (37.0-47.0) L 24.0 % (37.0-47.0) L Mean Corpuscular Volume 97 FL (80-99) 99 FL (80-99) 97 FL (80-99) Mean Corpuscular Hemoglobin 29.2 PG (27.0-31.0) 31.1 PG (27.0-31.0) H 30.0 PG (27.0-31.0) Mean Corpuscular Hemoglobin Concent 30.0 G/DL (32.0-36.0) L 31.6 G/DL (32.0-36.0) L 30.8 G/DL (32.0-36.0) L Red Cell Distribution Width 14.8 % (11.6-14.8) 14.6 % (11.6-14.8) 14.4 % (11.6-14.8) Platelet Count 307 K/UL (150-450) 319 K/UL (150-450) 317 K/UL (150-450) Mean Platelet Volume 7.1 FL (6.5-10.1) 6.9 FL (6.5-10.1) 7.3 FL (6.5-10.1) Neutrophils (%) (Auto) % (45.0-75.0) 74.3 % (45.0-75.0) % (45.0-75.0) Lymphocytes (%) (Auto) % (20.0-45.0) 10.1 % (20.0-45.0) L % (20.0-45.0) Monocytes (%) (Auto) % (1.0-10.0) 10.3 % (1.0-10.0) H % (1.0-10.0) Eosinophils (%) (Auto) % (0.0-3.0) 3.3 % (0.0-3.0) H % (0.0-3.0) Basophils (%) (Auto) % (0.0-2.0) 2.0 % (0.0-2.0) % (0.0-2.0) Differential Total Cells Counted 100 100 Neutrophils % (Manual) 83 % (45-75) H 79 % (45-75) H Lymphocytes % (Manual) 8 % (20-45) L 12 % (20-45) L Monocytes % (Manual) 5 % (1-10) 8 % (1-10) Eosinophils % (Manual) 2 % (0-3) 1 % (0-3) Basophils % (Manual) 1 % (0-2) 0 % (0-2) Band Neutrophils 1 % (0-8) 0 % (0-8) Platelet Estimate Adequate Adequate Platelet Morphology Normal Normal Polychromasia 1+ Hypochromasia 1+ 1+ Anisocytosis 1+ 1+ Activated Partial Thromboplast Time 54 SEC (23-33) H 48 SEC (23-33) H Sodium Level 151 mEQ/L (135-145) H Potassium Level 3.9 mEQ/L (3.4-4.9) Chloride Level 108 mEQ/L (98-107) H Carbon Dioxide Level 34 mEQ/L (20-30) H Anion Gap 9 (5-15) Blood Urea Nitrogen 41 mg/dL (7-23) H Creatinine 0.8 mg/dL (0.5-0.9) Estimat Glomerular Filtration Rate > 60 mL/min (>60) Glucose Level 161 mg/dL (74-106) H Calcium Level 8.6 mg/dL (8.6-10.2) Phosphorus Level 3.8 mg/dL (2.5-4.8) Magnesium Level 2.3 mg/dL (1.7-2.5) Total Bilirubin 1.3 mg/dL (0.0-1.2) H Direct Bilirubin 0.6 mg/dL (0.1-0.3) H Aspartate Amino Transf (AST/SGOT) 37 U/L (5-40) Alanine Aminotransferase (ALT/SGPT) 14 U/L (3-33) Alkaline Phosphatase 89 U/L (35-104) Total Protein 6.0 g/dL (6.6-8.7) L Albumin 1.9 g/dL (3.5-5.2) L Globulin 4.1 g/dL Albumin/Globulin Ratio 0.4 (1.0-2.7) L Arterial Blood pH 7.403 (7.350-7.450) Arterial Blood Partial Pressure CO2 64.1 mmHg (35.0-45.0) *H Arterial Blood Partial Pressure O2 92.9 mmHg (75.0-100.0) Arterial Blood HCO3 39.1 mmol/L (22.0-26.0) H Arterial Blood Oxygen Saturation 96.4 % (92.0-98.0) Arterial Blood Base Excess 12.5 Ok Test Positive TONY BRIDGES Dec 25, 2016 10:33
--- NOTE | 2016-12-25 10:50 | General Surgery Progress Note ---
General Surgery-Progress Note Subjective Additional Comments patient seen and examined at bedside. still requiring vent support. being transfused prbc. CT scan yesterday reviewed. Objective Last 24 Hour Vital Signs Date Time Temp Pulse Resp B/P Pulse Ox O2 Delivery O2 Flow Rate FiO2 12/25/16 10:00 87 18 150/40 100 Mechanical Ventilator 35 12/25/16 09:22 35 12/25/16 09:17 99 12/25/16 09:15 81 16 35 12/25/16 09:00 35 12/25/16 09:00 76 18 131/41 99 Mechanical Ventilator 35 12/25/16 08:30 98.9 12/25/16 08:04 79 150/47 12/25/16 08:00 82 12/25/16 08:00 35 12/25/16 08:00 98.9 77 20 150/47 100 Mechanical Ventilator 35 12/25/16 07:25 101 28 35 12/25/16 07:00 76 20 152/39 99 Mechanical Ventilator 35 12/25/16 06:00 79 20 153/57 96 Mechanical Ventilator 35 12/25/16 05:45 144/46 12/25/16 05:00 83 23 114/46 99 Mechanical Ventilator 35 12/25/16 04:50 101 14 35 12/25/16 04:00 98.9 80 20 150/52 98 Mechanical Ventilator 35 12/25/16 04:00 77 12/25/16 04:00 35 12/25/16 03:24 81 18 35 12/25/16 03:00 75 22 153/45 99 Mechanical Ventilator 35 12/25/16 02:00 79 20 147/41 99 Mechanical Ventilator 35 12/25/16 01:07 76 17 35 12/25/16 01:00 84 19 148/48 98 Mechanical Ventilator 35 12/25/16 00:00 99.0 84 23 138/60 98 Mechanical Ventilator 35 12/25/16 00:00 84 12/24/16 23:06 35 12/24/16 23:06 92 20 35 12/24/16 23:00 92 26 160/54 98 Mechanical Ventilator 35 12/24/16 22:00 97 20 152/56 98 Mechanical Ventilator 35 12/24/16 21:44 99 24 170/52 97 Mechanical Ventilator 35 12/24/16 21:05 110 170/52 12/24/16 21:00 93 22 35 12/24/16 20:00 35 12/24/16 20:00 88 12/24/16 20:00 98.3 92 20 156/63 98 Mechanical Ventilator 35 12/24/16 19:39 98 24 35 12/24/16 19:00 86 22 155/52 98 Mechanical Ventilator 35 12/24/16 18:00 91 21 151/51 98 Mechanical Ventilator 35 12/24/16 17:36 154/48 12/24/16 17:00 95 20 155/48 98 Mechanical Ventilator 35 12/24/16 16:39 94 21 35 12/24/16 16:00 98.8 98 22 154/50 98 Mechanical Ventilator 35 12/24/16 16:00 98 12/24/16 15:09 82 15 35 12/24/16 15:00 35 12/24/16 15:00 71 20 155/51 99 Mechanical Ventilator 35 12/24/16 14:00 83 20 153/42 100 Mechanical Ventilator 35 12/24/16 13:00 82 18 154/43 100 Mechanical Ventilator 35 12/24/16 12:43 160/60 12/24/16 12:39 87 26 35 12/24/16 12:00 89 12/24/16 12:00 98.7 92 19 160/68 100 Mechanical Ventilator 35 12/24/16 11:05 90 20 35 12/24/16 11:00 87 19 147/91 100 Mechanical Ventilator 35 I&O Intake and Output 12/24/16 12/25/16 19:00 07:00 Intake Total 1923.814 ml 1090 ml Output Total 1600 ml 1950 ml Balance 323.814 ml -860 ml IV Total 1423.814 ml 1030 ml Other 500 ml 60 ml Output Urine Total 1600 ml 1950 ml # Bowel Movements 6 3 Cardiovascular: RSR Respiratory: decreased breath sounds Abdomen: soft, distended, tenderness, present bowel sounds Extremities: edema Laboratory Tests Test 12/24/16 14:10 12/24/16 20:24 12/25/16 05:00 12/25/16 09:00 White Blood Count 10.7 K/UL (4.8-10.8) 11.5 K/UL (4.8-10.8) H 10.1 K/UL (4.8-10.8) Red Blood Count 2.65 M/UL (4.20-5.40) L 2.60 M/UL (4.20-5.40) L 2.46 M/UL (4.20-5.40) L Hemoglobin 7.7 G/DL (12.0-16.0) L 8.1 G/DL (12.0-16.0) L 7.4 G/DL (12.0-16.0) L Hematocrit 25.7 % (37.0-47.0) L 25.6 % (37.0-47.0) L 24.0 % (37.0-47.0) L Mean Corpuscular Volume 97 FL (80-99) 99 FL (80-99) 97 FL (80-99) Mean Corpuscular Hemoglobin 29.2 PG (27.0-31.0) 31.1 PG (27.0-31.0) H 30.0 PG (27.0-31.0) Mean Corpuscular Hemoglobin Concent 30.0 G/DL (32.0-36.0) L 31.6 G/DL (32.0-36.0) L 30.8 G/DL (32.0-36.0) L Red Cell Distribution Width 14.8 % (11.6-14.8) 14.6 % (11.6-14.8) 14.4 % (11.6-14.8) Platelet Count 307 K/UL (150-450) 319 K/UL (150-450) 317 K/UL (150-450) Mean Platelet Volume 7.1 FL (6.5-10.1) 6.9 FL (6.5-10.1) 7.3 FL (6.5-10.1) Neutrophils (%) (Auto) % (45.0-75.0) 74.3 % (45.0-75.0) % (45.0-75.0) Lymphocytes (%) (Auto) % (20.0-45.0) 10.1 % (20.0-45.0) L % (20.0-45.0) Monocytes (%) (Auto) % (1.0-10.0) 10.3 % (1.0-10.0) H % (1.0-10.0) Eosinophils (%) (Auto) % (0.0-3.0) 3.3 % (0.0-3.0) H % (0.0-3.0) Basophils (%) (Auto) % (0.0-2.0) 2.0 % (0.0-2.0) % (0.0-2.0) Differential Total Cells Counted 100 100 Neutrophils % (Manual) 83 % (45-75) H 79 % (45-75) H Lymphocytes % (Manual) 8 % (20-45) L 12 % (20-45) L Monocytes % (Manual) 5 % (1-10) 8 % (1-10) Eosinophils % (Manual) 2 % (0-3) 1 % (0-3) Basophils % (Manual) 1 % (0-2) 0 % (0-2) Band Neutrophils 1 % (0-8) 0 % (0-8) Platelet Estimate Adequate Adequate Platelet Morphology Normal Normal Polychromasia 1+ Hypochromasia 1+ 1+ Anisocytosis 1+ 1+ Activated Partial Thromboplast Time 54 SEC (23-33) H 48 SEC (23-33) H Sodium Level 151 mEQ/L (135-145) H Potassium Level 3.9 mEQ/L (3.4-4.9) Chloride Level 108 mEQ/L (98-107) H Carbon Dioxide Level 34 mEQ/L (20-30) H Anion Gap 9 (5-15) Blood Urea Nitrogen 41 mg/dL (7-23) H Creatinine 0.8 mg/dL (0.5-0.9) Estimat Glomerular Filtration Rate > 60 mL/min (>60) Glucose Level 161 mg/dL (74-106) H Calcium Level 8.6 mg/dL (8.6-10.2) Phosphorus Level 3.8 mg/dL (2.5-4.8) Magnesium Level 2.3 mg/dL (1.7-2.5) Total Bilirubin 1.3 mg/dL (0.0-1.2) H Direct Bilirubin 0.6 mg/dL (0.1-0.3) H Aspartate Amino Transf (AST/SGOT) 37 U/L (5-40) Alanine Aminotransferase (ALT/SGPT) 14 U/L (3-33) Alkaline Phosphatase 89 U/L (35-104) Total Protein 6.0 g/dL (6.6-8.7) L Albumin 1.9 g/dL (3.5-5.2) L Globulin 4.1 g/dL Albumin/Globulin Ratio 0.4 (1.0-2.7) L Arterial Blood pH 7.403 (7.350-7.450) Arterial Blood Partial Pressure CO2 64.1 mmHg (35.0-45.0) *H Arterial Blood Partial Pressure O2 92.9 mmHg (75.0-100.0) Arterial Blood HCO3 39.1 mmol/L (22.0-26.0) H Arterial Blood Oxygen Saturation 96.4 % (92.0-98.0) Arterial Blood Base Excess 12.5 Ok Test Positive Plan Problems: (1) Phlegmon of pancreas (2) Pancreatitis Additional Comments 71 F acute severe pancreatitis. Reviewed recent CT scan yesterday and stable if not mildly improved. Still with pulmonary edema and overall anasarca. Exam stable. Still with respiratory failure. No acute surgical intervention necessary. Cont with medical management of acute severe pancreatitis [place] tube feed diet via NG tube Will continue to follow. Trend labs. Rodrigo Andino Dec 25, 2016 10:50
--- NOTE | 2016-12-25 11:37 | Cardiology Progress Note ---
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 mitral valve prosthesis on anticoagulation perm afib on anticoagulation with Coumadin coagulopathy now elevated due to med interaction adn disease process leukocytosis ARF intra abd hematomas brbpr bloody bm have decreased getting blood transfusion good urine output in response to lasix d/w dr العراقي ct performed 12/24/2016 showed multip hematomas in barber bd cavity will restart heparin this evening again d/w rn d/w dr العراقي repeat cbc bp has been prefect so far repeat echo Subjective Cardiovascular: Denies: chest pain Respiratory: Denies: shortness of breath Gastrointestinal/Abdominal: Denies: abdominal pain Genitourinary: Denies: burning Subjective on the vent Objective Last 24 Hour Vital Signs Date Time Temp Pulse Resp B/P Pulse Ox O2 Delivery O2 Flow Rate FiO2 12/25/16 11:15 35 12/25/16 11:13 104 21 35 12/25/16 11:00 89 20 150/61 96 Mechanical Ventilator 35 12/25/16 10:00 87 18 150/40 100 Mechanical Ventilator 35 12/25/16 09:22 35 12/25/16 09:17 99 12/25/16 09:15 81 16 35 12/25/16 09:00 35 12/25/16 09:00 76 18 131/41 99 Mechanical Ventilator 35 12/25/16 08:30 98.9 12/25/16 08:04 79 150/47 12/25/16 08:00 82 12/25/16 08:00 35 12/25/16 08:00 98.9 77 20 150/47 100 Mechanical Ventilator 35 12/25/16 07:25 101 28 35 12/25/16 07:00 76 20 152/39 99 Mechanical Ventilator 35 12/25/16 06:00 79 20 153/57 96 Mechanical Ventilator 35 12/25/16 05:45 144/46 12/25/16 05:00 83 23 114/46 99 Mechanical Ventilator 35 12/25/16 04:50 101 14 35 12/25/16 04:00 98.9 80 20 150/52 98 Mechanical Ventilator 35 12/25/16 04:00 77 12/25/16 04:00 35 12/25/16 03:24 81 18 35 12/25/16 03:00 75 22 153/45 99 Mechanical Ventilator 35 12/25/16 02:00 79 20 147/41 99 Mechanical Ventilator 35 12/25/16 01:07 76 17 35 12/25/16 01:00 84 19 148/48 98 Mechanical Ventilator 35 12/25/16 00:00 99.0 84 23 138/60 98 Mechanical Ventilator 35 12/25/16 00:00 84 12/24/16 23:06 35 12/24/16 23:06 92 20 35 12/24/16 23:00 92 26 160/54 98 Mechanical Ventilator 35 12/24/16 22:00 97 20 152/56 98 Mechanical Ventilator 35 12/24/16 21:44 99 24 170/52 97 Mechanical Ventilator 35 12/24/16 21:05 110 170/52 12/24/16 21:00 93 22 35 12/24/16 20:00 35 12/24/16 20:00 88 12/24/16 20:00 98.3 92 20 156/63 98 Mechanical Ventilator 35 12/24/16 19:39 98 24 35 12/24/16 19:00 86 22 155/52 98 Mechanical Ventilator 35 12/24/16 18:00 91 21 151/51 98 Mechanical Ventilator 35 12/24/16 17:36 154/48 12/24/16 17:00 95 20 155/48 98 Mechanical Ventilator 35 12/24/16 16:39 94 21 35 12/24/16 16:00 98.8 98 22 154/50 98 Mechanical Ventilator 35 12/24/16 16:00 98 12/24/16 15:09 82 15 35 12/24/16 15:00 35 12/24/16 15:00 71 20 155/51 99 Mechanical Ventilator 35 12/24/16 14:00 83 20 153/42 100 Mechanical Ventilator 35 12/24/16 13:00 82 18 154/43 100 Mechanical Ventilator 35 12/24/16 12:43 160/60 12/24/16 12:39 87 26 35 12/24/16 12:00 89 12/24/16 12:00 98.7 92 19 160/68 100 Mechanical Ventilator 35 General Appearance: on vent Neck: supple Cardiovascular: irregularly irregular, other - mechanical hear sound Respiratory/Chest: lungs clear, normal breath sounds Abdomen: normal bowel sounds, non tender, soft Extremities: non-tender, moderate edema Intake and Output 12/24/16 12/25/16 19:00 07:00 Intake Total 1923.814 ml 1090 ml Output Total 1600 ml 1950 ml Balance 323.814 ml -860 ml IV Total 1423.814 ml 1030 ml Other 500 ml 60 ml Output Urine Total 1600 ml 1950 ml # Bowel Movements 6 3 Laboratory Tests Test 12/24/16 14:10 12/24/16 20:24 12/25/16 05:00 12/25/16 09:00 White Blood Count 10.7 K/UL (4.8-10.8) 11.5 K/UL (4.8-10.8) H 10.1 K/UL (4.8-10.8) Red Blood Count 2.65 M/UL (4.20-5.40) L 2.60 M/UL (4.20-5.40) L 2.46 M/UL (4.20-5.40) L Hemoglobin 7.7 G/DL (12.0-16.0) L 8.1 G/DL (12.0-16.0) L 7.4 G/DL (12.0-16.0) L Hematocrit 25.7 % (37.0-47.0) L 25.6 % (37.0-47.0) L 24.0 % (37.0-47.0) L Mean Corpuscular Volume 97 FL (80-99) 99 FL (80-99) 97 FL (80-99) Mean Corpuscular Hemoglobin 29.2 PG (27.0-31.0) 31.1 PG (27.0-31.0) H 30.0 PG (27.0-31.0) Mean Corpuscular Hemoglobin Concent 30.0 G/DL (32.0-36.0) L 31.6 G/DL (32.0-36.0) L 30.8 G/DL (32.0-36.0) L Red Cell Distribution Width 14.8 % (11.6-14.8) 14.6 % (11.6-14.8) 14.4 % (11.6-14.8) Platelet Count 307 K/UL (150-450) 319 K/UL (150-450) 317 K/UL (150-450) Mean Platelet Volume 7.1 FL (6.5-10.1) 6.9 FL (6.5-10.1) 7.3 FL (6.5-10.1) Neutrophils (%) (Auto) % (45.0-75.0) 74.3 % (45.0-75.0) % (45.0-75.0) Lymphocytes (%) (Auto) % (20.0-45.0) 10.1 % (20.0-45.0) L % (20.0-45.0) Monocytes (%) (Auto) % (1.0-10.0) 10.3 % (1.0-10.0) H % (1.0-10.0) Eosinophils (%) (Auto) % (0.0-3.0) 3.3 % (0.0-3.0) H % (0.0-3.0) Basophils (%) (Auto) % (0.0-2.0) 2.0 % (0.0-2.0) % (0.0-2.0) Differential Total Cells Counted 100 100 Neutrophils % (Manual) 83 % (45-75) H 79 % (45-75) H Lymphocytes % (Manual) 8 % (20-45) L 12 % (20-45) L Monocytes % (Manual) 5 % (1-10) 8 % (1-10) Eosinophils % (Manual) 2 % (0-3) 1 % (0-3) Basophils % (Manual) 1 % (0-2) 0 % (0-2) Band Neutrophils 1 % (0-8) 0 % (0-8) Platelet Estimate Adequate Adequate Platelet Morphology Normal Normal Polychromasia 1+ Hypochromasia 1+ 1+ Anisocytosis 1+ 1+ Activated Partial Thromboplast Time 54 SEC (23-33) H 48 SEC (23-33) H Sodium Level 151 mEQ/L (135-145) H Potassium Level 3.9 mEQ/L (3.4-4.9) Chloride Level 108 mEQ/L (98-107) H Carbon Dioxide Level 34 mEQ/L (20-30) H Anion Gap 9 (5-15) Blood Urea Nitrogen 41 mg/dL (7-23) H Creatinine 0.8 mg/dL (0.5-0.9) Estimat Glomerular Filtration Rate > 60 mL/min (>60) Glucose Level 161 mg/dL (74-106) H Calcium Level 8.6 mg/dL (8.6-10.2) Phosphorus Level 3.8 mg/dL (2.5-4.8) Magnesium Level 2.3 mg/dL (1.7-2.5) Total Bilirubin 1.3 mg/dL (0.0-1.2) H Direct Bilirubin 0.6 mg/dL (0.1-0.3) H Aspartate Amino Transf (AST/SGOT) 37 U/L (5-40) Alanine Aminotransferase (ALT/SGPT) 14 U/L (3-33) Alkaline Phosphatase 89 U/L (35-104) Total Protein 6.0 g/dL (6.6-8.7) L Albumin 1.9 g/dL (3.5-5.2) L Globulin 4.1 g/dL Albumin/Globulin Ratio 0.4 (1.0-2.7) L Arterial Blood pH 7.403 (7.350-7.450) Arterial Blood Partial Pressure CO2 64.1 mmHg (35.0-45.0) *H Arterial Blood Partial Pressure O2 92.9 mmHg (75.0-100.0) Arterial Blood HCO3 39.1 mmol/L (22.0-26.0) H Arterial Blood Oxygen Saturation 96.4 % (92.0-98.0) Arterial Blood Base Excess 12.5 Ok Test Positive Microbiology Date/Time Source Procedure Growth Status 12/22/16 19:50 Stool Clostridium difficile Toxin Assay - Final Complete ANNE RAM Dec 25, 2016 11:37
--- NOTE | 2016-12-25 11:59 | General Progress Note ---
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 Mirtral Vavle prosthesis on anticoagulation Pulmonary HTN HypoAlbuminemia Plan: Per GI / Surgery On TPN Keep BP under control Avoid nephrotoxics K supplement as needed monitor renal parameters Subjective ROS Limited/Unobtainable: Yes Allergies: Coded Allergies: No Known Allergies (Unverified , 09/28/14) Objective Last 24 Hour Vital Signs Date Time Temp Pulse Resp B/P Pulse Ox O2 Delivery O2 Flow Rate FiO2 12/25/16 11:31 160/61 12/25/16 11:15 35 12/25/16 11:13 104 21 35 12/25/16 11:00 89 20 150/61 96 Mechanical Ventilator 35 12/25/16 10:00 87 18 150/40 100 Mechanical Ventilator 35 12/25/16 09:22 35 12/25/16 09:17 99 12/25/16 09:15 81 16 35 12/25/16 09:00 35 12/25/16 09:00 76 18 131/41 99 Mechanical Ventilator 35 12/25/16 08:30 98.9 12/25/16 08:04 79 150/47 12/25/16 08:00 82 12/25/16 08:00 35 12/25/16 08:00 98.9 77 20 150/47 100 Mechanical Ventilator 35 12/25/16 07:25 101 28 35 12/25/16 07:00 76 20 152/39 99 Mechanical Ventilator 35 12/25/16 06:00 79 20 153/57 96 Mechanical Ventilator 35 12/25/16 05:45 144/46 12/25/16 05:00 83 23 114/46 99 Mechanical Ventilator 35 12/25/16 04:50 101 14 35 12/25/16 04:00 98.9 80 20 150/52 98 Mechanical Ventilator 35 12/25/16 04:00 77 12/25/16 04:00 35 12/25/16 03:24 81 18 35 12/25/16 03:00 75 22 153/45 99 Mechanical Ventilator 35 12/25/16 02:00 79 20 147/41 99 Mechanical Ventilator 35 12/25/16 01:07 76 17 35 12/25/16 01:00 84 19 148/48 98 Mechanical Ventilator 35 12/25/16 00:00 99.0 84 23 138/60 98 Mechanical Ventilator 35 12/25/16 00:00 84 12/24/16 23:06 35 12/24/16 23:06 92 20 35 12/24/16 23:00 92 26 160/54 98 Mechanical Ventilator 35 12/24/16 22:00 97 20 152/56 98 Mechanical Ventilator 35 12/24/16 21:44 99 24 170/52 97 Mechanical Ventilator 35 12/24/16 21:05 110 170/52 12/24/16 21:00 93 22 35 12/24/16 20:00 35 12/24/16 20:00 88 12/24/16 20:00 98.3 92 20 156/63 98 Mechanical Ventilator 35 12/24/16 19:39 98 24 35 12/24/16 19:00 86 22 155/52 98 Mechanical Ventilator 35 12/24/16 18:00 91 21 151/51 98 Mechanical Ventilator 35 12/24/16 17:36 154/48 12/24/16 17:00 95 20 155/48 98 Mechanical Ventilator 35 12/24/16 16:39 94 21 35 12/24/16 16:00 98.8 98 22 154/50 98 Mechanical Ventilator 35 12/24/16 16:00 98 12/24/16 15:09 82 15 35 12/24/16 15:00 35 12/24/16 15:00 71 20 155/51 99 Mechanical Ventilator 35 12/24/16 14:00 83 20 153/42 100 Mechanical Ventilator 35 12/24/16 13:00 82 18 154/43 100 Mechanical Ventilator 35 12/24/16 12:43 160/60 12/24/16 12:39 87 26 35 12/24/16 12:00 89 12/24/16 12:00 98.7 92 19 160/68 100 Mechanical Ventilator 35 Intake and Output 12/24/16 12/25/16 19:00 07:00 Intake Total 1923.814 ml 1090 ml Output Total 1600 ml 1950 ml Balance 323.814 ml -860 ml IV Total 1423.814 ml 1030 ml Other 500 ml 60 ml Output Urine Total 1600 ml 1950 ml # Bowel Movements 6 3 Laboratory Tests 12/24/16 14:10: White Blood Count 10.7, Red Blood Count 2.65L, Hemoglobin 7.7L, Hematocrit 25.7L , Mean Corpuscular Volume 97, Mean Corpuscular Hemoglobin 29.2, Mean Corpuscular Hemoglobin Concent 30.0L, Red Cell Distribution Width 14.8, Platelet Count 307, Mean Platelet Volume 7.1, Neutrophils (%) (Auto) , Lymphocytes (%) (Auto) , Monocytes (%) (Auto) , Eosinophils (%) (Auto) , Basophils (%) (Auto) , Differential Total Cells Counted 100, Neutrophils % ( Manual) 83H, Lymphocytes % (Manual) 8L, Monocytes % (Manual) 5, Eosinophils % ( Manual) 2, Basophils % (Manual) 1, Band Neutrophils 1, Platelet Estimate Adequate, Platelet Morphology Normal, Polychromasia 1+, Hypochromasia 1+, Anisocytosis 1+, Activated Partial Thromboplast Time 54H 12/24/16 20:24: White Blood Count 11.5H, Red Blood Count 2.60L, Hemoglobin 8.1L, Hematocrit 25.6L, Mean Corpuscular Volume 99, Mean Corpuscular Hemoglobin 31.1H, Mean Corpuscular Hemoglobin Concent 31.6L, Red Cell Distribution Width 14.6, Platelet Count 319, Mean Platelet Volume 6.9, Neutrophils (%) (Auto) 74.3, Lymphocytes (%) (Auto) 10.1L, Monocytes (%) (Auto) 10.3H, Eosinophils (%) (Auto ) 3.3H, Basophils (%) (Auto) 2.0, Activated Partial Thromboplast Time 48H 12/25/16 05:00: White Blood Count 10.1, Red Blood Count 2.46L, Hemoglobin 7.4L, Hematocrit 24.0L , Mean Corpuscular Volume 97, Mean Corpuscular Hemoglobin 30.0, Mean Corpuscular Hemoglobin Concent 30.8L, Red Cell Distribution Width 14.4, Platelet Count 317, Mean Platelet Volume 7.3, Neutrophils (%) (Auto) , Lymphocytes (%) (Auto) , Monocytes (%) (Auto) , Eosinophils (%) (Auto) , Basophils (%) (Auto) , Differential Total Cells Counted 100, Neutrophils % ( Manual) 79H, Lymphocytes % (Manual) 12L, Monocytes % (Manual) 8, Eosinophils % ( Manual) 1, Basophils % (Manual) 0, Band Neutrophils 0, Platelet Estimate Adequate, Platelet Morphology Normal, Hypochromasia 1+, Anisocytosis 1+, Sodium Level 151H, Potassium Level 3.9, Chloride Level 108H, Carbon Dioxide Level 34H, Anion Gap 9, Blood Urea Nitrogen 41H, Creatinine 0.8, Estimat Glomerular Filtration Rate > 60, Glucose Level 161H, Calcium Level 8.6, Phosphorus Level 3.8, Magnesium Level 2.3, Total Bilirubin 1.3H, Direct Bilirubin 0.6H, Aspartate Amino Transf (AST/SGOT) 37, Alanine Aminotransferase (ALT/SGPT) 14, Alkaline Phosphatase 89, Total Protein 6.0L, Albumin 1.9L, Globulin 4.1, Albumin /Globulin Ratio 0.4L 12/25/16 09:00: Arterial Blood pH 7.403, Arterial Blood Partial Pressure CO2 64.1*H, Arterial Blood Partial Pressure O2 92.9, Arterial Blood HCO3 39.1H, Arterial Blood Oxygen Saturation 96.4, Arterial Blood Base Excess 12.5, Ok Test Positive Height (Feet): 5 Height (Inches): 1.00 Weight (Pounds): 145 General Appearance: no apparent distress Respiratory/Chest: decreased breath sounds Abdomen: distended Objective other PE not changed KAMINI SNOW Dec 25, 2016 11:59
--- NOTE | 2016-12-25 12:16 | Infectious Diseases Prog Note ---
Assessment/Plan Assessment/Plan ASSESSMENT: Pancreatitis recurrent CT: Findings compatible with marked worsening of acute pancreatitis MRCP : Cholelithiasis. There is also a calculus within the duct adjacent to the gallbladder Pancreatic Enzymes improving CT of Abd : reviewed Leukocytosis ( SIRS ) improving cholelithiasis : US of liver : Incidental finding of cholelithiasis and mild gallbladder wall thickening positive sonographic Diaz's sign LFT : Nl UTI : Mandy SCx : Mandy ( colonizer ) VDRF: Cxray : Increase in bilateral congestive changes with persistent small right , probable new left pleural effusions ARF SP aortic stenosis mitral stenosis status post mitral valve replacement AFib Pulmonary hypertension PLAN: - cont Diflucan d# 7 / 10 ( 12/24 SP DC Merrem d# / ) - monitor CBC, temperatures, - Monitor culture ( BL) - monitor LFT - GI f/u - Sx is following for possible Cholecystectomy later - VDRF Subjective Allergies: Coded Allergies: No Known Allergies (Unverified , 09/28/14) Subjective on vent Objective Vital Signs Last 24 Hour Vital Signs Date Time Temp Pulse Resp B/P Pulse Ox O2 Delivery O2 Flow Rate FiO2 12/25/16 11:31 160/61 12/25/16 11:15 35 12/25/16 11:13 104 21 35 12/25/16 11:00 89 20 150/61 96 Mechanical Ventilator 35 12/25/16 10:00 87 18 150/40 100 Mechanical Ventilator 35 12/25/16 09:22 35 12/25/16 09:17 99 12/25/16 09:15 81 16 35 12/25/16 09:00 35 12/25/16 09:00 76 18 131/41 99 Mechanical Ventilator 35 12/25/16 08:30 98.9 12/25/16 08:04 79 150/47 12/25/16 08:00 82 12/25/16 08:00 35 12/25/16 08:00 98.9 77 20 150/47 100 Mechanical Ventilator 35 12/25/16 07:25 101 28 35 12/25/16 07:00 76 20 152/39 99 Mechanical Ventilator 35 12/25/16 06:00 79 20 153/57 96 Mechanical Ventilator 35 12/25/16 05:45 144/46 12/25/16 05:00 83 23 114/46 99 Mechanical Ventilator 35 12/25/16 04:50 101 14 35 12/25/16 04:00 98.9 80 20 150/52 98 Mechanical Ventilator 35 12/25/16 04:00 77 12/25/16 04:00 35 12/25/16 03:24 81 18 35 12/25/16 03:00 75 22 153/45 99 Mechanical Ventilator 35 12/25/16 02:00 79 20 147/41 99 Mechanical Ventilator 35 12/25/16 01:07 76 17 35 12/25/16 01:00 84 19 148/48 98 Mechanical Ventilator 35 12/25/16 00:00 99.0 84 23 138/60 98 Mechanical Ventilator 35 12/25/16 00:00 84 12/24/16 23:06 35 12/24/16 23:06 92 20 35 12/24/16 23:00 92 26 160/54 98 Mechanical Ventilator 35 12/24/16 22:00 97 20 152/56 98 Mechanical Ventilator 35 12/24/16 21:44 99 24 170/52 97 Mechanical Ventilator 35 12/24/16 21:05 110 170/52 12/24/16 21:00 93 22 35 12/24/16 20:00 35 12/24/16 20:00 88 12/24/16 20:00 98.3 92 20 156/63 98 Mechanical Ventilator 35 12/24/16 19:39 98 24 35 12/24/16 19:00 86 22 155/52 98 Mechanical Ventilator 35 12/24/16 18:00 91 21 151/51 98 Mechanical Ventilator 35 12/24/16 17:36 154/48 12/24/16 17:00 95 20 155/48 98 Mechanical Ventilator 35 12/24/16 16:39 94 21 35 12/24/16 16:00 98.8 98 22 154/50 98 Mechanical Ventilator 35 12/24/16 16:00 98 12/24/16 15:09 82 15 35 12/24/16 15:00 35 12/24/16 15:00 71 20 155/51 99 Mechanical Ventilator 35 12/24/16 14:00 83 20 153/42 100 Mechanical Ventilator 35 12/24/16 13:00 82 18 154/43 100 Mechanical Ventilator 35 12/24/16 12:43 160/60 12/24/16 12:39 87 26 35 Height (Feet): 5 Height (Inches): 1.00 Weight (Pounds): 145 HEENT: atraumatic Respiratory/Chest: normal breath sounds Cardiovascular: regular rhythm Abdomen: no organomegaly Microbiology Date/Time Source Procedure Growth Status 12/22/16 19:50 Stool Clostridium difficile Toxin Assay - Final Complete Laboratory Tests Test 12/24/16 14:10 12/24/16 20:24 12/25/16 05:00 12/25/16 09:00 White Blood Count 10.7 K/UL (4.8-10.8) 11.5 K/UL (4.8-10.8) H 10.1 K/UL (4.8-10.8) Red Blood Count 2.65 M/UL (4.20-5.40) L 2.60 M/UL (4.20-5.40) L 2.46 M/UL (4.20-5.40) L Hemoglobin 7.7 G/DL (12.0-16.0) L 8.1 G/DL (12.0-16.0) L 7.4 G/DL (12.0-16.0) L Hematocrit 25.7 % (37.0-47.0) L 25.6 % (37.0-47.0) L 24.0 % (37.0-47.0) L Mean Corpuscular Volume 97 FL (80-99) 99 FL (80-99) 97 FL (80-99) Mean Corpuscular Hemoglobin 29.2 PG (27.0-31.0) 31.1 PG (27.0-31.0) H 30.0 PG (27.0-31.0) Mean Corpuscular Hemoglobin Concent 30.0 G/DL (32.0-36.0) L 31.6 G/DL (32.0-36.0) L 30.8 G/DL (32.0-36.0) L Red Cell Distribution Width 14.8 % (11.6-14.8) 14.6 % (11.6-14.8) 14.4 % (11.6-14.8) Platelet Count 307 K/UL (150-450) 319 K/UL (150-450) 317 K/UL (150-450) Mean Platelet Volume 7.1 FL (6.5-10.1) 6.9 FL (6.5-10.1) 7.3 FL (6.5-10.1) Neutrophils (%) (Auto) % (45.0-75.0) 74.3 % (45.0-75.0) % (45.0-75.0) Lymphocytes (%) (Auto) % (20.0-45.0) 10.1 % (20.0-45.0) L % (20.0-45.0) Monocytes (%) (Auto) % (1.0-10.0) 10.3 % (1.0-10.0) H % (1.0-10.0) Eosinophils (%) (Auto) % (0.0-3.0) 3.3 % (0.0-3.0) H % (0.0-3.0) Basophils (%) (Auto) % (0.0-2.0) 2.0 % (0.0-2.0) % (0.0-2.0) Differential Total Cells Counted 100 100 Neutrophils % (Manual) 83 % (45-75) H 79 % (45-75) H Lymphocytes % (Manual) 8 % (20-45) L 12 % (20-45) L Monocytes % (Manual) 5 % (1-10) 8 % (1-10) Eosinophils % (Manual) 2 % (0-3) 1 % (0-3) Basophils % (Manual) 1 % (0-2) 0 % (0-2) Band Neutrophils 1 % (0-8) 0 % (0-8) Platelet Estimate Adequate Adequate Platelet Morphology Normal Normal Polychromasia 1+ Hypochromasia 1+ 1+ Anisocytosis 1+ 1+ Activated Partial Thromboplast Time 54 SEC (23-33) H 48 SEC (23-33) H Sodium Level 151 mEQ/L (135-145) H Potassium Level 3.9 mEQ/L (3.4-4.9) Chloride Level 108 mEQ/L (98-107) H Carbon Dioxide Level 34 mEQ/L (20-30) H Anion Gap 9 (5-15) Blood Urea Nitrogen 41 mg/dL (7-23) H Creatinine 0.8 mg/dL (0.5-0.9) Estimat Glomerular Filtration Rate > 60 mL/min (>60) Glucose Level 161 mg/dL (74-106) H Calcium Level 8.6 mg/dL (8.6-10.2) Phosphorus Level 3.8 mg/dL (2.5-4.8) Magnesium Level 2.3 mg/dL (1.7-2.5) Total Bilirubin 1.3 mg/dL (0.0-1.2) H Direct Bilirubin 0.6 mg/dL (0.1-0.3) H Aspartate Amino Transf (AST/SGOT) 37 U/L (5-40) Alanine Aminotransferase (ALT/SGPT) 14 U/L (3-33) Alkaline Phosphatase 89 U/L (35-104) Total Protein 6.0 g/dL (6.6-8.7) L Albumin 1.9 g/dL (3.5-5.2) L Globulin 4.1 g/dL Albumin/Globulin Ratio 0.4 (1.0-2.7) L Arterial Blood pH 7.403 (7.350-7.450) Arterial Blood Partial Pressure CO2 64.1 mmHg (35.0-45.0) *H Arterial Blood Partial Pressure O2 92.9 mmHg (75.0-100.0) Arterial Blood HCO3 39.1 mmol/L (22.0-26.0) H Arterial Blood Oxygen Saturation 96.4 % (92.0-98.0) Arterial Blood Base Excess 12.5 Ok Test Positive Current Medications Medications (Trade) Dose Ordered Sig/Lisbeth Route PRN Reason Start Time Stop Time Status Last Admin Dose Admin Acetaminophen (Tylenol) 650 mg Q4H PRN ORAL fever 12/17/16 08:00 01/16/17 07:59 12/21/16 08:19 Albuterol/ Ipratropium (DuoNeb 0.5-3(2.5)mg/3ml) 3 ml Q4H PRN HHN sob 12/23/16 11:30 12/28/16 11:29 Amlodipine Besylate (Norvasc) 5 mg Q12HR ORAL 12/22/16 21:00 01/21/17 20:59 12/25/16 08:04 Clonidine HCl (Catapres) 0.1 mg Q4H PRN ORAL SBP >160 12/22/16 10:45 01/21/17 10:44 12/23/16 10:15 Dextrose (D10w) 1,000 ml @ 80 mls/hr [id number] PRN IV If TPN interrupted 12/17/16 07:30 01/16/17 07:29 Dextrose (Dextrose 50%) STAT PRN IV Hypoglycemia 12/17/16 07:30 01/16/17 07:29 Fat Emulsion Intravenous/Amino Acids/ Electrolytes/ Dextrose (Intralipids/Tpn) 2,232 ml @ 93 mls/hr Q24H IV 12/23/16 21:00 12/25/16 20:59 12/24/16 21:11 Fat Emulsion Intravenous/Amino Acids/ Electrolytes/ Dextrose (Intralipids/Tpn) 2,232 ml @ 93 mls/hr Q24H IV 12/25/16 21:00 01/24/17 20:59 Fluconazole/ Sodium Chloride (Diflucan 200mg/ 100ml Premix) 100 ml @ 100 mls/hr Q24H IV 12/19/16 23:00 12/28/16 23:59 12/24/16 22:58 Furosemide 40 mg 40 mg EVERY 12 HOURS IV 12/24/16 21:00 01/23/17 20:59 12/25/16 08:03 Hydrocortisone (Anusol HC) 1 supp TWICE A DAY RECTAL 12/24/16 18:00 01/23/17 17:59 12/25/16 08:04 Insulin Aspart (NovoLOG) No Dose Q6HR SUBQ 12/17/16 12:00 01/16/17 11:59 12/25/16 11:32 Lorazepam 1 mg 1 mg Q4H PRN IV For Anxiety 12/23/16 08:45 12/30/16 08:44 12/24/16 21:52 Morphine Sulfate (Morphine Sulfate) 4 mg Q4H PRN IVP Severe Pain (Pain Scale 7-10) 12/23/16 11:50 12/27/16 11:49 12/25/16 08:03 Nitroglycerin (Nitro-Bid) 1 inch TID@0600,1200,1800 TOPIC 12/22/16 06:00 01/21/17 05:59 12/25/16 11:31 Nitroglycerin (Ntg) 0.4 mg Q5M X 3 DOSES PRN SL Prn Chest Pain 12/17/16 07:30 01/16/17 07:29 Ondansetron HCl (Zofran) 4 mg Q6H PRN IVP Nausea & Vomiting 12/17/16 07:30 01/16/17 07:29 Pantoprazole 40 mg 40 mg DAILY IVP 12/20/16 09:00 01/19/17 08:59 12/25/16 08:04 Phytonadione (Vitamin K) 10 mg QWEEK SUBQ 12/23/16 21:00 01/22/17 20:59 12/23/16 21:07 Polyethylene Glycol (Miralax) 17 gm HSPRN PRN ORAL Constipation 12/17/16 07:30 01/16/17 07:29 Sucralfate (Carafate) 1 gm FOUR TIMES A DAY ORAL 12/17/16 09:00 01/16/17 08:59 12/25/16 11:31 OSCAR ANDERSON M.D. Dec 25, 2016 12:16
--- NOTE | 2016-12-25 13:47 | GI Progress Note ---
Assessment/Plan Problems: (1) Pancreatitis ICD Codes: K85.9 - Acute pancreatitis, unspecified SNOMED: 05093550 Qualifiers: Qualified Codes: K85.10 - Biliary acute pancreatitis without necrosis or infection (2) Abdominal pain ICD Codes: R10.9 - Unspecified abdominal pain SNOMED: 38865416, 585516480 (3) Iron deficiency anemia ICD Codes: D50.9 - Iron deficiency anemia, unspecified SNOMED: 43895925 (4) Colon polyp ICD Codes: K63.5 - Polyp of colon SNOMED: 99230339 Status: not improved, unchanged Status Narrative Discussed with Dr. Gipson. Assessment/Plan Assessment Pancreatitis - resolving, but abdomen still very distended cholelithiasis, no e/o choledocholithiasis Leukocytosis improving Respiratory failure Azotemia improving Anemia colon polyp Guarded fu CT >> New finding of a 6 x 4.4 x 4.9 cm masslike lesion in the left paracolic gutter, which compresses and splays but does not appear to obstruct an adjacent small bowel loop, see full report. Assessment/Plan TPN abx monitor H&H, transfuse prn ppi + cararate follow labs supportive care surgical planning Subjective Subjective limited Objective Last 24 Hour Vital Signs Date Time Temp Pulse Resp B/P Pulse Ox O2 Delivery O2 Flow Rate FiO2 12/25/16 13:29 76 15 35 12/25/16 13:00 98.9 72 20 155/42 99 Mechanical Ventilator 35 12/25/16 12:00 99.2 79 20 129/52 96 Mechanical Ventilator 35 12/25/16 12:00 79 12/25/16 11:31 160/61 12/25/16 11:15 35 12/25/16 11:13 104 21 35 12/25/16 11:00 89 20 150/61 96 Mechanical Ventilator 35 12/25/16 10:00 87 18 150/40 100 Mechanical Ventilator 35 12/25/16 09:22 35 12/25/16 09:17 99 12/25/16 09:15 81 16 35 12/25/16 09:00 35 12/25/16 09:00 76 18 131/41 99 Mechanical Ventilator 35 12/25/16 08:30 98.9 12/25/16 08:04 79 150/47 12/25/16 08:00 82 12/25/16 08:00 35 12/25/16 08:00 98.9 77 20 150/47 100 Mechanical Ventilator 35 12/25/16 07:25 101 28 35 12/25/16 07:00 76 20 152/39 99 Mechanical Ventilator 35 12/25/16 06:00 79 20 153/57 96 Mechanical Ventilator 35 12/25/16 05:45 144/46 12/25/16 05:00 83 23 114/46 99 Mechanical Ventilator 35 12/25/16 04:50 101 14 35 12/25/16 04:00 98.9 80 20 150/52 98 Mechanical Ventilator 35 12/25/16 04:00 77 12/25/16 04:00 35 12/25/16 03:24 81 18 35 12/25/16 03:00 75 22 153/45 99 Mechanical Ventilator 35 12/25/16 02:00 79 20 147/41 99 Mechanical Ventilator 35 12/25/16 01:07 76 17 35 12/25/16 01:00 84 19 148/48 98 Mechanical Ventilator 35 12/25/16 00:00 99.0 84 23 138/60 98 Mechanical Ventilator 35 12/25/16 00:00 84 12/24/16 23:06 35 12/24/16 23:06 92 20 35 12/24/16 23:00 92 26 160/54 98 Mechanical Ventilator 35 12/24/16 22:00 97 20 152/56 98 Mechanical Ventilator 35 12/24/16 21:44 99 24 170/52 97 Mechanical Ventilator 35 12/24/16 21:05 110 170/52 12/24/16 21:00 93 22 35 12/24/16 20:00 35 12/24/16 20:00 88 12/24/16 20:00 98.3 92 20 156/63 98 Mechanical Ventilator 35 12/24/16 19:39 98 24 35 12/24/16 19:00 86 22 155/52 98 Mechanical Ventilator 35 12/24/16 18:00 91 21 151/51 98 Mechanical Ventilator 35 12/24/16 17:36 154/48 12/24/16 17:00 95 20 155/48 98 Mechanical Ventilator 35 12/24/16 16:39 94 21 35 12/24/16 16:00 98.8 98 22 154/50 98 Mechanical Ventilator 35 12/24/16 16:00 98 12/24/16 15:09 82 15 35 12/24/16 15:00 35 12/24/16 15:00 71 20 155/51 99 Mechanical Ventilator 35 12/24/16 14:00 83 20 153/42 100 Mechanical Ventilator 35 Intake and Output 12/24/16 12/25/16 19:00 07:00 Intake Total 1923.814 ml 1090 ml Output Total 1600 ml 1950 ml Balance 323.814 ml -860 ml IV Total 1423.814 ml 1030 ml Other 500 ml 60 ml Output Urine Total 1600 ml 1950 ml # Bowel Movements 6 3 Laboratory Tests Test 12/24/16 14:10 12/24/16 20:24 12/25/16 05:00 12/25/16 09:00 White Blood Count 10.7 K/UL (4.8-10.8) 11.5 K/UL (4.8-10.8) H 10.1 K/UL (4.8-10.8) Red Blood Count 2.65 M/UL (4.20-5.40) L 2.60 M/UL (4.20-5.40) L 2.46 M/UL (4.20-5.40) L Hemoglobin 7.7 G/DL (12.0-16.0) L 8.1 G/DL (12.0-16.0) L 7.4 G/DL (12.0-16.0) L Hematocrit 25.7 % (37.0-47.0) L 25.6 % (37.0-47.0) L 24.0 % (37.0-47.0) L Mean Corpuscular Volume 97 FL (80-99) 99 FL (80-99) 97 FL (80-99) Mean Corpuscular Hemoglobin 29.2 PG (27.0-31.0) 31.1 PG (27.0-31.0) H 30.0 PG (27.0-31.0) Mean Corpuscular Hemoglobin Concent 30.0 G/DL (32.0-36.0) L 31.6 G/DL (32.0-36.0) L 30.8 G/DL (32.0-36.0) L Red Cell Distribution Width 14.8 % (11.6-14.8) 14.6 % (11.6-14.8) 14.4 % (11.6-14.8) Platelet Count 307 K/UL (150-450) 319 K/UL (150-450) 317 K/UL (150-450) Mean Platelet Volume 7.1 FL (6.5-10.1) 6.9 FL (6.5-10.1) 7.3 FL (6.5-10.1) Neutrophils (%) (Auto) % (45.0-75.0) 74.3 % (45.0-75.0) % (45.0-75.0) Lymphocytes (%) (Auto) % (20.0-45.0) 10.1 % (20.0-45.0) L % (20.0-45.0) Monocytes (%) (Auto) % (1.0-10.0) 10.3 % (1.0-10.0) H % (1.0-10.0) Eosinophils (%) (Auto) % (0.0-3.0) 3.3 % (0.0-3.0) H % (0.0-3.0) Basophils (%) (Auto) % (0.0-2.0) 2.0 % (0.0-2.0) % (0.0-2.0) Differential Total Cells Counted 100 100 Neutrophils % (Manual) 83 % (45-75) H 79 % (45-75) H Lymphocytes % (Manual) 8 % (20-45) L 12 % (20-45) L Monocytes % (Manual) 5 % (1-10) 8 % (1-10) Eosinophils % (Manual) 2 % (0-3) 1 % (0-3) Basophils % (Manual) 1 % (0-2) 0 % (0-2) Band Neutrophils 1 % (0-8) 0 % (0-8) Platelet Estimate Adequate Adequate Platelet Morphology Normal Normal Polychromasia 1+ Hypochromasia 1+ 1+ Anisocytosis 1+ 1+ Activated Partial Thromboplast Time 54 SEC (23-33) H 48 SEC (23-33) H Sodium Level 151 mEQ/L (135-145) H Potassium Level 3.9 mEQ/L (3.4-4.9) Chloride Level 108 mEQ/L (98-107) H Carbon Dioxide Level 34 mEQ/L (20-30) H Anion Gap 9 (5-15) Blood Urea Nitrogen 41 mg/dL (7-23) H Creatinine 0.8 mg/dL (0.5-0.9) Estimat Glomerular Filtration Rate > 60 mL/min (>60) Glucose Level 161 mg/dL (74-106) H Calcium Level 8.6 mg/dL (8.6-10.2) Phosphorus Level 3.8 mg/dL (2.5-4.8) Magnesium Level 2.3 mg/dL (1.7-2.5) Total Bilirubin 1.3 mg/dL (0.0-1.2) H Direct Bilirubin 0.6 mg/dL (0.1-0.3) H Aspartate Amino Transf (AST/SGOT) 37 U/L (5-40) Alanine Aminotransferase (ALT/SGPT) 14 U/L (3-33) Alkaline Phosphatase 89 U/L (35-104) Total Protein 6.0 g/dL (6.6-8.7) L Albumin 1.9 g/dL (3.5-5.2) L Globulin 4.1 g/dL Albumin/Globulin Ratio 0.4 (1.0-2.7) L Arterial Blood pH 7.403 (7.350-7.450) Arterial Blood Partial Pressure CO2 64.1 mmHg (35.0-45.0) *H Arterial Blood Partial Pressure O2 92.9 mmHg (75.0-100.0) Arterial Blood HCO3 39.1 mmol/L (22.0-26.0) H Arterial Blood Oxygen Saturation 96.4 % (92.0-98.0) Arterial Blood Base Excess 12.5 Ok Test Positive Height (Feet): 5 Height (Inches): 1.00 Weight (Pounds): 145 General Appearance: lethargic Cardiovascular: normal rate Respiratory/Chest: other - mech vent Abdominal Exam: other - TPN Objective Service Date: 12/11/16 Procedure: MRI Abdomen no Contrast Indication: Abdominal pain, possible pancreatitis Findings: Multiple calcifications are seen within the gallbladder. There is a ductal structure cephalad to the gallbladder which contains a filling defect. This is probably the cystic duct, but could be an extrahepatic bile duct, and it is uncertain which of these is. The gallbladder wall is not thickened. The extrahepatic bile ducts are ectatic, with the common bile duct measuring up to 9 mm diameter , but no downstream filling defects are demonstrated. The common bile duct terminates abruptly at the level of the ampulla. The pancreatic duct is mildly ectatic, measuring 3-4 mm in diameter. No intraluminal filling defects are demonstrated. A 7 mm fluid signal lesion is seen within the uncinate process of the pancreas. This may actually be a duodenal diverticulum which is seen on the recent CT scan. There is apparent swelling of the pancreas and considerable free intraperitoneal fluid. No free intraperitoneal fluid presumably increased from the prior CT scan. There are dilated small bowel loops, likely indicating ileus. The liver is unremarkable. The adrenals and kidneys are unremarkable. There are bilateral small pleural effusions. The spleen is unremarkable. The heart is enlarged Impression: Cholelithiasis. There is also a calculus within the duct adjacent to the gallbladder which is probably the cystic duct but could be an extrahepatic bile duct. Extrahepatic and central intrahepatic biliary ductal mild dilatation. No definite downstream calculus or pancreatic head mass to account for this, however. Prominence and edema of the pancreas, better visualized on prior CT scan, consistent with acute pancreatitis, also previously described Ascites fluid, increased from the prior CT scan, likely secondary to the acute pancreatitis Dilated small bowel loops, new since prior CT study. Suspect representing ileus related to the pancreatitis Bilateral small pleural effusions Small cystic lesion within the as a process. Suspect that this is actually the duodenal diverticulum described on recent CT scan, but could represent a tiny pseudocyst or intraductal papillary mucinous neoplasm. Cardiomegaly Lulu Dominguez N.P. Dec 25, 2016 13:47
--- NOTE | 2016-12-25 13:52 | Diagnostic Imaging Report ---
Indication: DYSPNEA Technique: One view of the chest Comparison: 12/24/2016 Findings: Positions of endotracheal and nasogastric tube, left arm PICC. Diffuse interstitial and alveolar edema versus infiltrates persists, unchanged. Heart remains enlarged. Findings are unchanged Impression: Unchanged, over one day, findings as above.
[2016-12-25] MEDS ORDERED: Heparin 25,000u/D5W 500ml 500 ML IV SCH (17:45)
[2016-12-25] MEDS ORDERED: Fat Emulsion Iv 20% 240 ML in Tpn 1,992 ML IV SCH (21:00)
[2016-12-26] VITALS (24 sets, daily range): BP systolic 133–176; BP diastolic 41–82
[2016-12-26] MEDS: Heparin 25,000u/D5W 500ml 500 ML IV SCH ×3 (01:58→13:51)
[2016-12-26] MEDS ORDERED: Heparin 5000 units/ml inj IV ONE (02:00)
[2016-12-26] MEDS: Nitroglycerin 2% oint pkt TOPIC SCH ×3 (05:11→18:12)
[2016-12-26] MEDS: NovoLOG Insulin Flexpen SUBQ SCH ×3 (05:14→18:10)
[2016-12-26 07:33] LABS: BASOPHILS % (AUTO) 0.9 % (0.0-2.0); EOSINOPHILS % (AUTO) 1.6 % (0.0-3.0); MEAN CORPUSCULAR HEMOGLOBIN 29.3 PG (27.0-31.0); MEAN CORPUSCULAR HGB CONC 30.7 G/DL (32.0-36.0); MEAN CORPUSCULAR VOLUME 96 FL (80-99); MEAN PLATELET VOLUME 7.6 FL (6.5-10.1); MONOCYTES % (AUTO) 7.2 % (1.0-10.0); NEUTROPHILS % (AUTO) 80.3 % (45.0-75.0); PLATELET COUNT 342 K/UL (150-450); RED BLOOD COUNT 2.98 M/UL (4.20-5.40); RED CELL DISTRIBUTION WIDTH 15.3 % (11.6-14.8); WHITE BLOOD COUNT 12.1 K/UL (4.8-10.8)
[2016-12-26 07:58] LABS: ALANINE AMINOTRANSFERASE 15 U/L (3-33); ALBUMIN/GLOBULIN RATIO 0.5 (1.0-2.7); ANION GAP 10 (5-15); ASPARTATE AMINO TRANSFERASE 36 U/L (5-40); CALCIUM 9.3 mg/dL (8.6-10.2); CARBON DIOXIDE 37 mEQ/L (20-30); CHLORIDE 109 mEQ/L (98-107); CREATININE 0.9 mg/dL (0.5-0.9); GLOMERULAR FILTRATION RATE > 60 mL/min (>60); HEMOLYSIS 1; MAGNESIUM 2.2 mg/dL (1.7-2.5); PHOSPHORUS 3.9 mg/dL (2.5-4.8); POTASSIUM 3.7 mEQ/L (3.4-4.9); SODIUM 156 mEQ/L (135-145); TOTAL PROTEIN 6.8 g/dL (6.6-8.7)
[2016-12-26 08:16] LABS: BILIRUBIN,DIRECT 0.6 mg/dL (0.1-0.3)
[2016-12-26 08:21] LABS: CRP QUANT 6.8 mg/dL (< 0.5); URIC ACID 5.7 mg/dL (3.0-7.5)
[2016-12-26] MEDS: Anusol HC Supp RECTAL SCH ×2 (08:23→17:34)
[2016-12-26] MEDS: Sucralfate 1gm tab ORAL SCH ×4 (08:24→20:21)
[2016-12-26] MEDS: Pantoprazole Inj IVP SCH (08:27)
--- NOTE | 2016-12-26 09:20 | Cardiology Report ---
APPROVED REPORT EXAM: Two-dimensional and M-mode echocardiogram with Doppler and color Doppler. INDICATION Chest Pain M-Mode DIMENSIONS IVSd0.9 (0.7-1.1cm)Left Atrium (MM)2.3 (1.6-4.0cm) LVDd5.4 (3.5-5.6cm)Aortic Root2.9 (2.0-3.7cm) PWd1.1 (0.7-1.1cm)Aortic Cusp Exc.1.6 (1.5-2.0cm) IVSs0.9 cm LVDs3.2 (2.5-4.0cm) PWs1.1 cm Technically difficult study due to poor acoustic windows. Normal left ventricular chamber size, systolic function and wall motion. Left ventricular ejection fraction estimated to be 60-65 %. No evidence of left ventricular hypertrophy. No evidence of pericardial fat or effusion. Moderate bi-atrial enlargement by 2D. Mitral valve prosthesis is seen and appears to move appropriately. Aortic bioprosthesis is seen with aortic stenosis. Mitral annulus and aortic root calcification. Pulmonic valve is well visualized. Normal tricuspid valve structure. IVC is normal in size with physiologic collapse. A color flow and spectral Doppler study was performed and revealed: No aortic regurgitation. Peak aortic valve gradient of 94 mmHg and a mean of 46 mmHg. Aortic valve area 1.6cm2 calculated by continuity equation. Mitral P1/2 time of 96 m/s is compatible with a mitral valve area of 2.3 cm2 Peak mitral valve diastolic gradient of 23 mmHg and a mean gradient of 7 mmHg Trace mitral regurgitation. Mild tricuspid regurgitation. Tricuspid systolic velocities suggests peak right ventricular systolic pressure of 71 mmHg Consistent with severe pulmonary hypertension. Clinical criteria: LEX Reyna and Dr. Ortiz were aware on 12/25/16 at 3pm
[2016-12-26] MEDS ORDERED: NS 275ml ONE (09:47)
[2016-12-26] MEDS ORDERED: Tubing Blood Filter IV ONE (09:47)
--- NOTE | 2016-12-26 09:51 | Pulmonolgy Critical Care Note ---
Critical Care - Asmt/Plan Problems: (1) Respiratory failure requiring intubation (2) Sepsis (3) Pancreatitis (4) ATN (acute tubular necrosis) (5) Atrial fibrillation Respiratory: adjust tidal volume, monitor respiratory rate, adjust FIO2, CXR, other - wean as tolerated Cardiac: continue to monitor HR/BP Renal: F/U I&O, keep IV fluid, check electrolytes Infectious Disease: check cultures, continue antibiotics Gastrointestinal: hold feedings - on tpn Endocrine: monitor blood sugar, check HgA1C, continue sliding scale insulin Hematologic: monitor H/H, transfuse if hgb<8.5 Neurologic: PRN Ativan, PRN Morphine, keep patient comfortable Disposition: keep in ICU 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, 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, 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 with: 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, 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, 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 - Objective Last 24 Hour Vital Signs Date Time Temp Pulse Resp B/P Pulse Ox O2 Delivery O2 Flow Rate FiO2 12/26/16 09:16 97 26 35 12/26/16 09:15 99 12/26/16 09:00 96 22 159/63 100 Mechanical Ventilator 35 12/26/16 08:25 193/60 12/26/16 08:23 115 193/60 12/26/16 08:00 98.7 102 22 176/66 100 Mechanical Ventilator 35 12/26/16 08:00 35 12/26/16 07:29 107 21 35 12/26/16 07:00 89 17 150/42 100 Mechanical Ventilator 35 12/26/16 06:00 90 17 174/72 100 Mechanical Ventilator 35 12/26/16 05:11 146/44 12/26/16 05:00 85 17 146/44 100 Mechanical Ventilator 35 12/26/16 04:57 64 15 35 12/26/16 04:02 165/52 12/26/16 04:00 76 12/26/16 04:00 98.0 80 17 162/53 100 Mechanical Ventilator 35 12/26/16 04:00 35 12/26/16 03:12 78 17 35 12/26/16 03:00 80 17 165/52 100 Mechanical Ventilator 35 12/26/16 02:00 72 17 165/54 100 Mechanical Ventilator 35 12/26/16 01:20 71 16 35 12/26/16 01:00 72 17 158/60 100 Mechanical Ventilator 35 12/26/16 00:00 98.6 62 17 157/59 100 Mechanical Ventilator 35 12/26/16 00:00 35 17 00:00 60 17 23:27 79 17 35 17 23:00 65 17 140/47 100 Mechanical Ventilator 35 17 22:00 60 17 157/51 100 Mechanical Ventilator 35 17 21:03 56 15 35 17 21:00 62 17 157/51 100 Mechanical Ventilator 35 12/25/16 20:03 78 136/47 12/25/16 20:00 73 17 20:00 35 17 20:00 98.4 68 17 131/49 100 Mechanical Ventilator 35 12/25/16 20:00 68 17 131/49 100 Mechanical Ventilator 35 12/25/16 19:03 72 15 35 12/25/16 19:00 70 17 136/47 100 Mechanical Ventilator 35 12/25/16 18:40 98.9 12/25/16 18:00 99.2 78 18 144/48 100 Mechanical Ventilator 35 12/25/16 17:40 138/47 12/25/16 17:00 73 17 138/47 100 Mechanical Ventilator 35 12/25/16 16:56 87 15 35 12/25/16 16:20 98.7 12/25/16 16:00 87 12/25/16 16:00 35 12/25/16 16:00 98.7 96 20 151/57 97 Mechanical Ventilator 35 12/25/16 15:00 95 18 153/75 100 Mechanical Ventilator 35 12/25/16 14:58 81 19 35 12/25/16 14:00 82 18 144/48 100 Mechanical Ventilator 35 12/25/16 14:00 35 17 13:29 76 15 35 12/25/16 13:00 98.9 72 20 155/42 99 Mechanical Ventilator 35 17 12:00 99.2 79 20 129/52 96 Mechanical Ventilator 35 17 12:00 79 17 11:31 160/61 18/17 11:15 35 18/17 11:13 104 21 35 18/17 11:00 89 20 150/61 96 Mechanical Ventilator 35 12/25/16 10:00 87 18 150/40 100 Mechanical Ventilator 35 Status: awake Condition: critical HEENT: atraumatic, normocephalic Lungs: chest wall tender Heart: HR/BP stable, HR/BP unstable Abdomen: non-tender, active bowel sounds Extremities: no C/C/E, edema Accucheck: 167 Critical Care - Subjective ICU Day: 10 Condition: critical EKG Rhythm: Sinus Rhythm FI02: 35 Vent Support Breath Rate: 10 Vent Support Mode: IMV/SIMV Vent Tidal Volume: 500 Sputum Amount: Small PEEP: 5.0 PIP: 40 Fluids: tpn Drips: heparin I&O: Intake and Output 12/25/16 12/26/16 19:00 07:00 Intake Total 1419.678 ml 1659.763 ml Output Total 1330 ml 1650 ml Balance 89.678 ml 9.763 ml IV Total 1139.678 ml 1409.763 ml Blood Product 250 ml 250 ml Other 30 ml Output Urine Total 1330 ml 1650 ml # Bowel Movements 2 1 CXR: pulmonary edema ET-Tube: 7.5 ET Position: 22 Labs: Laboratory Tests Test 12/25/16 17:20 12/26/16 00:15 12/26/16 07:00 Activated Partial Thromboplast Time 28 SEC (23-33) 50 SEC (23-33) H 104 SEC (23-33) H White Blood Count 12.1 K/UL (4.8-10.8) H Red Blood Count 2.98 M/UL (4.20-5.40) L Hemoglobin 8.7 G/DL (12.0-16.0) L Hematocrit 28.4 % (37.0-47.0) L Mean Corpuscular Volume 96 FL (80-99) Mean Corpuscular Hemoglobin 29.3 PG (27.0-31.0) Mean Corpuscular Hemoglobin Concent 30.7 G/DL (32.0-36.0) L Red Cell Distribution Width 15.3 % (11.6-14.8) H Platelet Count 342 K/UL (150-450) Mean Platelet Volume 7.6 FL (6.5-10.1) Neutrophils (%) (Auto) 80.3 % (45.0-75.0) H Lymphocytes (%) (Auto) 10.0 % (20.0-45.0) L Monocytes (%) (Auto) 7.2 % (1.0-10.0) Eosinophils (%) (Auto) 1.6 % (0.0-3.0) Basophils (%) (Auto) 0.9 % (0.0-2.0) Sodium Level 156 mEQ/L (135-145) H Potassium Level 3.7 mEQ/L (3.4-4.9) Chloride Level 109 mEQ/L (98-107) H Carbon Dioxide Level 37 mEQ/L (20-30) H Anion Gap 10 (5-15) Blood Urea Nitrogen 37 mg/dL (7-23) H Creatinine 0.9 mg/dL (0.5-0.9) Estimat Glomerular Filtration Rate > 60 mL/min (>60) Glucose Level 149 mg/dL (74-106) H Uric Acid 5.7 mg/dL (3.0-7.5) Calcium Level 9.3 mg/dL (8.6-10.2) Phosphorus Level 3.9 mg/dL (2.5-4.8) Magnesium Level 2.2 mg/dL (1.7-2.5) Total Bilirubin 1.3 mg/dL (0.0-1.2) H Direct Bilirubin 0.6 mg/dL (0.1-0.3) H Aspartate Amino Transf (AST/SGOT) 36 U/L (5-40) Alanine Aminotransferase (ALT/SGPT) 15 U/L (3-33) Alkaline Phosphatase 91 U/L (35-104) C-Reactive Protein, Quantitative 6.8 mg/dL (< 0.5) H Pro-B-Type Natriuretic Peptide 1529 pg/mL (0-125) H Total Protein 6.8 g/dL (6.6-8.7) Albumin 2.3 g/dL (3.5-5.2) L Globulin 4.5 g/dL Albumin/Globulin Ratio 0.5 (1.0-2.7) L TONY BRIDGES Dec 26, 2016 09:51
--- NOTE | 2016-12-26 10:29 | Diagnostic Imaging Report ---
Indication: DYSPNEA Technique: One view of the chest Comparison: 12/25/2016 Findings: Endotracheal and nasogastric tubes are again demonstrated. Left arm PICC remains. The heart remains enlarged. Interstitial and alveolar infiltrates versus edema persists, essentially unchanged allowing for differences in exposure technique and degree of inspiration Impression: Unchanged, over one day, findings as above.
--- NOTE | 2016-12-26 10:43 | General Surgery Progress Note ---
General Surgery-Progress Note Subjective Additional Comments patient seen and examined at bedside. no acute events. stable. Objective Last 24 Hour Vital Signs Date Time Temp Pulse Resp B/P Pulse Ox O2 Delivery O2 Flow Rate FiO2 12/26/16 09:16 97 26 35 12/26/16 09:15 99 12/26/16 09:00 96 22 159/63 100 Mechanical Ventilator 35 12/26/16 08:25 193/60 12/26/16 08:23 115 193/60 12/26/16 08:00 98.7 102 22 176/66 100 Mechanical Ventilator 35 12/26/16 08:00 35 12/26/16 08:00 76 12/26/16 07:29 107 21 35 12/26/16 07:00 89 17 150/42 100 Mechanical Ventilator 35 12/26/16 06:00 90 17 174/72 100 Mechanical Ventilator 35 12/26/16 05:11 146/44 12/26/16 05:00 85 17 146/44 100 Mechanical Ventilator 35 12/26/16 04:57 64 15 35 12/26/16 04:02 165/52 12/26/16 04:00 76 12/26/16 04:00 98.0 80 17 162/53 100 Mechanical Ventilator 35 12/26/16 04:00 35 12/26/16 03:12 78 17 35 12/26/16 03:00 80 17 165/52 100 Mechanical Ventilator 35 12/26/16 02:00 72 17 165/54 100 Mechanical Ventilator 35 12/26/16 01:20 71 16 35 12/26/16 01:00 72 17 158/60 100 Mechanical Ventilator 35 12/26/16 00:00 98.6 62 17 157/59 100 Mechanical Ventilator 35 12/26/16 00:00 35 12/26/16 00:00 60 12/25/16 23:27 79 17 35 12/25/16 23:00 65 17 140/47 100 Mechanical Ventilator 35 12/25/16 22:00 60 17 157/51 100 Mechanical Ventilator 35 12/25/16 21:03 56 15 35 12/25/16 21:00 62 17 157/51 100 Mechanical Ventilator 35 12/25/16 20:03 78 136/47 12/25/16 20:00 73 12/25/16 20:00 35 12/25/16 20:00 98.4 68 17 131/49 100 Mechanical Ventilator 35 12/25/16 20:00 68 17 131/49 100 Mechanical Ventilator 35 12/25/16 19:03 72 15 35 12/25/16 19:00 70 17 136/47 100 Mechanical Ventilator 35 12/25/16 18:40 98.9 12/25/16 18:00 99.2 78 18 144/48 100 Mechanical Ventilator 35 12/25/16 17:40 138/47 12/25/16 17:00 73 17 138/47 100 Mechanical Ventilator 35 12/25/16 16:56 87 15 35 12/25/16 16:20 98.7 12/25/16 16:00 87 12/25/16 16:00 35 12/25/16 16:00 98.7 96 20 151/57 97 Mechanical Ventilator 35 12/25/16 15:00 95 18 153/75 100 Mechanical Ventilator 35 12/25/16 14:58 81 19 35 12/25/16 14:00 82 18 144/48 100 Mechanical Ventilator 35 12/25/16 14:00 35 12/25/16 13:29 76 15 35 12/25/16 13:00 98.9 72 20 155/42 99 Mechanical Ventilator 35 12/25/16 12:00 99.2 79 20 129/52 96 Mechanical Ventilator 35 12/25/16 12:00 79 12/25/16 11:31 160/61 12/25/16 11:15 35 12/25/16 11:13 104 21 35 12/25/16 11:00 89 20 150/61 96 Mechanical Ventilator 35 I&O Intake and Output 12/25/16 12/26/16 19:00 07:00 Intake Total 1419.678 ml 1659.763 ml Output Total 1330 ml 1650 ml Balance 89.678 ml 9.763 ml IV Total 1139.678 ml 1409.763 ml Blood Product 250 ml 250 ml Other 30 ml Output Urine Total 1330 ml 1650 ml # Bowel Movements 2 1 Cardiovascular: RSR Respiratory: decreased breath sounds Abdomen: soft, distended, tenderness, present bowel sounds Laboratory Tests Test 12/25/16 17:20 12/26/16 00:15 12/26/16 07:00 Activated Partial Thromboplast Time 28 SEC (23-33) 50 SEC (23-33) H 104 SEC (23-33) H White Blood Count 12.1 K/UL (4.8-10.8) H Red Blood Count 2.98 M/UL (4.20-5.40) L Hemoglobin 8.7 G/DL (12.0-16.0) L Hematocrit 28.4 % (37.0-47.0) L Mean Corpuscular Volume 96 FL (80-99) Mean Corpuscular Hemoglobin 29.3 PG (27.0-31.0) Mean Corpuscular Hemoglobin Concent 30.7 G/DL (32.0-36.0) L Red Cell Distribution Width 15.3 % (11.6-14.8) H Platelet Count 342 K/UL (150-450) Mean Platelet Volume 7.6 FL (6.5-10.1) Neutrophils (%) (Auto) 80.3 % (45.0-75.0) H Lymphocytes (%) (Auto) 10.0 % (20.0-45.0) L Monocytes (%) (Auto) 7.2 % (1.0-10.0) Eosinophils (%) (Auto) 1.6 % (0.0-3.0) Basophils (%) (Auto) 0.9 % (0.0-2.0) Sodium Level 156 mEQ/L (135-145) H Potassium Level 3.7 mEQ/L (3.4-4.9) Chloride Level 109 mEQ/L (98-107) H Carbon Dioxide Level 37 mEQ/L (20-30) H Anion Gap 10 (5-15) Blood Urea Nitrogen 37 mg/dL (7-23) H Creatinine 0.9 mg/dL (0.5-0.9) Estimat Glomerular Filtration Rate > 60 mL/min (>60) Glucose Level 149 mg/dL (74-106) H Uric Acid 5.7 mg/dL (3.0-7.5) Calcium Level 9.3 mg/dL (8.6-10.2) Phosphorus Level 3.9 mg/dL (2.5-4.8) Magnesium Level 2.2 mg/dL (1.7-2.5) Total Bilirubin 1.3 mg/dL (0.0-1.2) H Direct Bilirubin 0.6 mg/dL (0.1-0.3) H Aspartate Amino Transf (AST/SGOT) 36 U/L (5-40) Alanine Aminotransferase (ALT/SGPT) 15 U/L (3-33) Alkaline Phosphatase 91 U/L (35-104) C-Reactive Protein, Quantitative 6.8 mg/dL (< 0.5) H Pro-B-Type Natriuretic Peptide 1529 pg/mL (0-125) H Total Protein 6.8 g/dL (6.6-8.7) Albumin 2.3 g/dL (3.5-5.2) L Globulin 4.5 g/dL Albumin/Globulin Ratio 0.5 (1.0-2.7) L Plan Problems: (1) Phlegmon of pancreas (2) Pancreatitis Assessment & Plan: 71 F acute severe pancreatitis. Afebrile, HD stable, still on vent with difficulty weaning, leukocytosis 12k today, abdominal exam stable, CT scan reviewed. No acute surgical intervention planned. Cont with medical management of acute sever pancreatitis. Rodrigo Andino Dec 26, 2016 10:43
[2016-12-26 11:20] LABS: OTHERS PATHOLOGIST COMMENT
--- NOTE | 2016-12-26 11:51 | GI Progress Note ---
Assessment/Plan Problems: (1) Pancreatitis ICD Codes: K85.9 - Acute pancreatitis, unspecified SNOMED: 84475848 Qualifiers: Qualified Codes: K85.10 - Biliary acute pancreatitis without necrosis or infection (2) Abdominal pain ICD Codes: R10.9 - Unspecified abdominal pain SNOMED: 89784002, [id number] (3) Iron deficiency anemia ICD Codes: D50.9 - Iron deficiency anemia, unspecified SNOMED: 05601606 (4) Colon polyp ICD Codes: K63.5 - Polyp of colon SNOMED: 06230488 Status: unchanged Status Narrative Discussed with . Assessment/Plan Assessment Pancreatitis - resolving, but abdomen still very distended cholelithiasis, no e/o choledocholithiasis Leukocytosis improving Respiratory failure Azotemia improving Anemia colon polyp Guarded fu CT >> New finding of a 6 x 4.4 x 4.9 cm masslike lesion in the left paracolic gutter, which compresses and splays but does not appear to obstruct an adjacent small bowel loop, see full report. Assessment/Plan dc TPN, begin NGTFs per dietary amylase, lipase in am abx monitor H&H, transfuse prn ppi + cararate follow labs supportive care surgical planning Subjective Subjective limited Objective Last 24 Hour Vital Signs Date Time Temp Pulse Resp B/P Pulse Ox O2 Delivery O2 Flow Rate FiO2 12/26/16 11:14 102 20 35 12/26/16 09:16 97 26 35 12/26/16 09:15 99 12/26/16 09:00 96 22 159/63 100 Mechanical Ventilator 35 12/26/16 08:25 193/60 12/26/16 08:23 115 193/60 12/26/16 08:00 98.7 102 22 176/66 100 Mechanical Ventilator 35 12/26/16 08:00 35 12/26/16 08:00 76 12/26/16 07:29 107 21 35 12/26/16 07:00 89 17 150/42 100 Mechanical Ventilator 35 12/26/16 06:00 90 17 174/72 100 Mechanical Ventilator 35 12/26/16 05:11 146/44 12/26/16 05:00 85 17 146/44 100 Mechanical Ventilator 35 12/26/16 04:57 64 15 35 12/26/16 04:02 165/52 12/26/16 04:00 76 12/26/16 04:00 98.0 80 17 162/53 100 Mechanical Ventilator 35 12/26/16 04:00 35 17 03:12 78 17 35 12/26/16 03:00 80 17 165/52 100 Mechanical Ventilator 35 17 02:00 72 17 165/54 100 Mechanical Ventilator 35 17 01:20 71 16 35 12/26/16 01:00 72 17 158/60 100 Mechanical Ventilator 35 12/26/16 00:00 98.6 62 17 157/59 100 Mechanical Ventilator 35 12/26/16 00:00 35 12/26/16 00:00 60 1817 23:27 79 17 35 12/25/17 23:00 65 17 140/47 100 Mechanical Ventilator 35 18/17 22:00 60 17 157/51 100 Mechanical Ventilator 35 18/17 21:03 56 15 35 18/17 21:00 62 17 157/51 100 Mechanical Ventilator 35 18/17 20:03 78 136/47 1817 20:00 73 18/17 20:00 35 18/17 20:00 98.4 68 17 131/49 100 Mechanical Ventilator 35 18/17 20:00 68 17 131/49 100 Mechanical Ventilator 35 18/17 19:03 72 15 35 18/17 19:00 70 17 136/47 100 Mechanical Ventilator 35 18/17 18:40 98.9 18/17 18:00 99.2 78 18 144/48 100 Mechanical Ventilator 35 18/17 17:40 138/47 18/17 17:00 73 17 138/47 100 Mechanical Ventilator 35 18/17 16:56 87 15 35 18/17 16:20 98.7 18/17 16:00 87 18/17 16:00 35 18/17 16:00 98.7 96 20 151/57 97 Mechanical Ventilator 35 18/17 15:00 95 18 153/75 100 Mechanical Ventilator 35 18/17 14:58 81 19 35 418/17 14:00 82 18 144/48 100 Mechanical Ventilator 35 18/17 14:00 35 18/17 13:29 76 15 35 4/18/17 13:00 98.9 72 20 155/42 99 Mechanical Ventilator 35 12/25/16 12:00 99.2 79 20 129/52 96 Mechanical Ventilator 35 12/25/16 12:00 79 Intake and Output 12/25/16 12/26/16 19:00 07:00 Intake Total 1419.678 ml 1659.763 ml Output Total 1330 ml 1650 ml Balance 89.678 ml 9.763 ml IV Total 1139.678 ml 1409.763 ml Blood Product 250 ml 250 ml Other 30 ml Output Urine Total 1330 ml 1650 ml # Bowel Movements 2 1 Laboratory Tests Test 12/25/16 17:20 12/26/16 00:15 12/26/16 07:00 Activated Partial Thromboplast Time 28 SEC (23-33) 50 SEC (23-33) H 104 SEC (23-33) H White Blood Count 12.1 K/UL (4.8-10.8) H Red Blood Count 2.98 M/UL (4.20-5.40) L Hemoglobin 8.7 G/DL (12.0-16.0) L Hematocrit 28.4 % (37.0-47.0) L Mean Corpuscular Volume 96 FL (80-99) Mean Corpuscular Hemoglobin 29.3 PG (27.0-31.0) Mean Corpuscular Hemoglobin Concent 30.7 G/DL (32.0-36.0) L Red Cell Distribution Width 15.3 % (11.6-14.8) H Platelet Count 342 K/UL (150-450) Mean Platelet Volume 7.6 FL (6.5-10.1) Neutrophils (%) (Auto) 80.3 % (45.0-75.0) H Lymphocytes (%) (Auto) 10.0 % (20.0-45.0) L Monocytes (%) (Auto) 7.2 % (1.0-10.0) Eosinophils (%) (Auto) 1.6 % (0.0-3.0) Basophils (%) (Auto) 0.9 % (0.0-2.0) Sodium Level 156 mEQ/L (135-145) H Potassium Level 3.7 mEQ/L (3.4-4.9) Chloride Level 109 mEQ/L (98-107) H Carbon Dioxide Level 37 mEQ/L (20-30) H Anion Gap 10 (5-15) Blood Urea Nitrogen 37 mg/dL (7-23) H Creatinine 0.9 mg/dL (0.5-0.9) Estimat Glomerular Filtration Rate > 60 mL/min (>60) Glucose Level 149 mg/dL (74-106) H Uric Acid 5.7 mg/dL (3.0-7.5) Calcium Level 9.3 mg/dL (8.6-10.2) Phosphorus Level 3.9 mg/dL (2.5-4.8) Magnesium Level 2.2 mg/dL (1.7-2.5) Total Bilirubin 1.3 mg/dL (0.0-1.2) H Direct Bilirubin 0.6 mg/dL (0.1-0.3) H Aspartate Amino Transf (AST/SGOT) 36 U/L (5-40) Alanine Aminotransferase (ALT/SGPT) 15 U/L (3-33) Alkaline Phosphatase 91 U/L (35-104) C-Reactive Protein, Quantitative 6.8 mg/dL (< 0.5) H Pro-B-Type Natriuretic Peptide 1529 pg/mL (0-125) H Total Protein 6.8 g/dL (6.6-8.7) Albumin 2.3 g/dL (3.5-5.2) L Globulin 4.5 g/dL Albumin/Globulin Ratio 0.5 (1.0-2.7) L Height (Feet): 5 Height (Inches): 1.00 Weight (Pounds): 145 General Appearance: no apparent distress, lethargic Cardiovascular: normal rate Respiratory/Chest: other - mech vent Abdominal Exam: other - TPN Objective Service Date: 12/11/16 Procedure: MRI Abdomen no Contrast Indication: Abdominal pain, possible pancreatitis Findings: Multiple calcifications are seen within the gallbladder. There is a ductal structure cephalad to the gallbladder which contains a filling defect. This is probably the cystic duct, but could be an extrahepatic bile duct, and it is uncertain which of these is. The gallbladder wall is not thickened. The extrahepatic bile ducts are ectatic, with the common bile duct measuring up to 9 mm diameter , but no downstream filling defects are demonstrated. The common bile duct terminates abruptly at the level of the ampulla. The pancreatic duct is mildly ectatic, measuring 3-4 mm in diameter. No intraluminal filling defects are demonstrated. A 7 mm fluid signal lesion is seen within the uncinate process of the pancreas. This may actually be a duodenal diverticulum which is seen on the recent CT scan. There is apparent swelling of the pancreas and considerable free intraperitoneal fluid. No free intraperitoneal fluid presumably increased from the prior CT scan. There are dilated small bowel loops, likely indicating ileus. The liver is unremarkable. The adrenals and kidneys are unremarkable. There are bilateral small pleural effusions. The spleen is unremarkable. The heart is enlarged Impression: Cholelithiasis. There is also a calculus within the duct adjacent to the gallbladder which is probably the cystic duct but could be an extrahepatic bile duct. Extrahepatic and central intrahepatic biliary ductal mild dilatation. No definite downstream calculus or pancreatic head mass to account for this, however. Prominence and edema of the pancreas, better visualized on prior CT scan, consistent with acute pancreatitis, also previously described Ascites fluid, increased from the prior CT scan, likely secondary to the acute pancreatitis Dilated small bowel loops, new since prior CT study. Suspect representing ileus related to the pancreatitis Bilateral small pleural effusions Small cystic lesion within the as a process. Suspect that this is actually the duodenal diverticulum described on recent CT scan, but could represent a tiny pseudocyst or intraductal papillary mucinous neoplasm. Cardiomegaly Lulu Dominguez N.P. Dec 26, 2016 11:51
--- NOTE | 2016-12-26 16:25 | General Progress Note ---
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 on anticoagulation Pulmonary HTN HypoAlbuminemia Plan: Per GI / Surgery On TPN Keep BP under control Avoid nephrotoxics K supplement as needed monitor renal parameters Subjective ROS Limited/Unobtainable: Yes Allergies: Coded Allergies: No Known Allergies (Unverified , 09/28/14) Objective Last 24 Hour Vital Signs Date Time Temp Pulse Resp B/P Pulse Ox O2 Delivery O2 Flow Rate FiO2 12/26/16 16:00 77 12/26/16 16:00 35 12/26/16 15:22 97 23 35 12/26/16 15:00 69 20 135/63 99 Mechanical Ventilator 35 12/26/16 14:00 76 18 136/82 97 Mechanical Ventilator 35 12/26/16 13:06 99 19 35 12/26/16 13:00 91 22 174/80 97 Mechanical Ventilator 35 12/26/16 12:00 98.8 91 23 165/51 97 Mechanical Ventilator 35 12/26/16 12:00 74 12/26/16 12:00 159/45 12/26/16 12:00 35 12/26/16 11:14 102 20 35 12/26/16 11:00 91 23 159/63 100 Mechanical Ventilator 35 12/26/16 10:00 94 22 165/48 100 Mechanical Ventilator 35 12/26/16 09:16 97 26 35 12/26/16 09:15 99 12/26/16 09:00 96 22 159/63 100 Mechanical Ventilator 35 12/26/16 08:25 193/60 12/26/16 08:23 115 193/60 12/26/16 08:00 98.7 102 22 176/66 100 Mechanical Ventilator 35 12/26/16 08:00 35 12/26/16 08:00 76 12/26/16 07:29 107 21 35 12/26/16 07:00 89 17 150/42 100 Mechanical Ventilator 35 12/26/16 06:00 90 17 174/72 100 Mechanical Ventilator 35 12/26/16 05:11 146/44 12/26/16 05:00 85 17 146/44 100 Mechanical Ventilator 35 12/26/16 04:57 64 15 35 4/19/17 04:02 165/52 12/26/16 04:00 76 12/26/16 04:00 98.0 80 17 162/53 100 Mechanical Ventilator 35 12/26/16 04:00 35 12/26/16 03:12 78 17 35 12/26/16 03:00 80 17 165/52 100 Mechanical Ventilator 35 12/26/16 02:00 72 17 165/54 100 Mechanical Ventilator 35 12/26/16 01:20 71 16 35 12/26/16 01:00 72 17 158/60 100 Mechanical Ventilator 35 12/26/16 00:00 98.6 62 17 157/59 100 Mechanical Ventilator 35 12/26/16 00:00 35 12/26/16 00:00 60 12/25/16 23:27 79 17 35 12/25/16 23:00 65 17 140/47 100 Mechanical Ventilator 35 12/25/16 22:00 60 17 157/51 100 Mechanical Ventilator 35 12/25/16 21:03 56 15 35 12/25/16 21:00 62 17 157/51 100 Mechanical Ventilator 35 12/25/16 20:03 78 136/47 12/25/16 20:00 73 12/25/16 20:00 35 12/25/16 20:00 98.4 68 17 131/49 100 Mechanical Ventilator 35 12/25/16 20:00 68 17 131/49 100 Mechanical Ventilator 35 12/25/16 19:03 72 15 35 12/25/16 19:00 70 17 136/47 100 Mechanical Ventilator 35 12/25/16 18:40 98.9 12/25/16 18:00 99.2 78 18 144/48 100 Mechanical Ventilator 35 12/25/16 17:40 138/47 12/25/16 17:00 73 17 138/47 100 Mechanical Ventilator 35 12/25/16 16:56 87 15 35 Intake and Output 12/25/16 12/26/16 19:00 07:00 Intake Total 1419.678 ml 1659.763 ml Output Total 1330 ml 1650 ml Balance 89.678 ml 9.763 ml IV Total 1139.678 ml 1409.763 ml Blood Product 250 ml 250 ml Other 30 ml Output Urine Total 1330 ml 1650 ml # Bowel Movements 2 1 Laboratory Tests 12/25/16 17:20: Activated Partial Thromboplast Time 28 12/26/16 00:15: Activated Partial Thromboplast Time 50H 12/26/16 07:00: Activated Partial Thromboplast Time 104H, White Blood Count 12.1H, Red Blood Count 2.98L, Hemoglobin 8.7L, Hematocrit 28.4L, Mean Corpuscular Volume 96, Mean Corpuscular Hemoglobin 29.3, Mean Corpuscular Hemoglobin Concent 30.7L, Red Cell Distribution Width 15.3H, Platelet Count 342, Mean Platelet Volume 7.6 , Neutrophils (%) (Auto) 80.3H, Lymphocytes (%) (Auto) 10.0L, Monocytes (%) ( Auto) 7.2, Eosinophils (%) (Auto) 1.6, Basophils (%) (Auto) 0.9, Sodium Level 156H, Potassium Level 3.7, Chloride Level 109H, Carbon Dioxide Level 37H, Anion Gap 10, Blood Urea Nitrogen 37H, Creatinine 0.9, Estimat Glomerular Filtration Rate > 60, Glucose Level 149H, Uric Acid 5.7, Calcium Level 9.3, Phosphorus Level 3.9, Magnesium Level 2.2, Total Bilirubin 1.3H, Direct Bilirubin 0.6H, Aspartate Amino Transf (AST/SGOT) 36, Alanine Aminotransferase (ALT/SGPT) 15, Alkaline Phosphatase 91, C-Reactive Protein, Quantitative 6.8H, Pro-B-Type Natriuretic Peptide 1529H, Total Protein 6.8, Albumin 2.3L, Globulin 4.5, Albumin/Globulin Ratio 0.5L 12/26/16 15:00: Activated Partial Thromboplast Time 79H Height (Feet): 5 Height (Inches): 1.00 Weight (Pounds): 145 General Appearance: no apparent distress Objective other PE not changed KAMINI SNOW Dec 26, 2016 16:25
--- NOTE | 2016-12-26 17:47 | Infectious Diseases Prog Note ---
Assessment/Plan Assessment/Plan ASSESSMENT: Pancreatitis recurrent CT: Findings compatible with marked worsening of acute pancreatitis MRCP : Cholelithiasis. There is also a calculus within the duct adjacent to the gallbladder Pancreatic Enzymes improving CT of Abd : reviewed Leukocytosis ( SIRS ) improving cholelithiasis : US of liver : Incidental finding of cholelithiasis and mild gallbladder wall thickening positive sonographic Diaz's sign LFT : Nl UTI : Mandy SCx : Mandy ( colonizer ) VDRF: Cxray : Increase in bilateral congestive changes with persistent small right , probable new left pleural effusions ARF SP aortic stenosis mitral stenosis status post mitral valve replacement AFib Pulmonary hypertension PLAN: - cont Diflucan d# 8 / 10 ( 12/24 SP DC Merrem d# / ) - monitor CBC, temperatures, - Monitor culture ( BL) - monitor LFT - GI f/u - Sx is following for possible Cholecystectomy later - VDRF Subjective Allergies: Coded Allergies: No Known Allergies (Unverified , 09/28/14) Subjective weaning Vent Objective Vital Signs Last 24 Hour Vital Signs Date Time Temp Pulse Resp B/P Pulse Ox O2 Delivery O2 Flow Rate FiO2 12/26/16 17:25 85 16 35 12/26/16 17:00 71 20 138/43 99 Mechanical Ventilator 35 12/26/16 16:00 77 12/26/16 16:00 99.1 71 20 145/74 99 Mechanical Ventilator 35 12/26/16 16:00 35 12/26/16 15:22 97 23 35 12/26/16 15:00 69 20 135/63 99 Mechanical Ventilator 35 12/26/16 14:00 76 18 136/82 97 Mechanical Ventilator 35 12/26/16 13:06 99 19 35 12/26/16 13:00 91 22 174/80 97 Mechanical Ventilator 35 12/26/16 12:00 98.8 91 23 165/51 97 Mechanical Ventilator 35 12/26/16 12:00 74 12/26/16 12:00 159/45 12/26/16 12:00 35 12/26/16 11:14 102 20 35 12/26/16 11:00 91 23 159/63 100 Mechanical Ventilator 35 12/26/16 10:00 94 22 165/48 100 Mechanical Ventilator 35 12/26/16 09:16 97 26 35 12/26/16 09:15 99 12/26/16 09:00 96 22 159/63 100 Mechanical Ventilator 35 12/26/16 08:25 193/60 12/26/16 08:23 115 193/60 12/26/16 08:00 98.7 102 22 176/66 100 Mechanical Ventilator 35 12/26/16 08:00 35 12/26/16 08:00 76 12/26/16 07:29 107 21 35 12/26/16 07:00 89 17 150/42 100 Mechanical Ventilator 35 12/26/16 06:00 90 17 174/72 100 Mechanical Ventilator 35 12/26/16 05:11 146/44 12/26/16 05:00 85 17 146/44 100 Mechanical Ventilator 35 12/26/16 04:57 64 15 35 12/26/16 04:02 165/52 12/26/16 04:00 76 12/26/16 04:00 98.0 80 17 162/53 100 Mechanical Ventilator 35 12/26/16 04:00 35 12/26/16 03:12 78 17 35 12/26/16 03:00 80 17 165/52 100 Mechanical Ventilator 35 12/26/16 02:00 72 17 165/54 100 Mechanical Ventilator 35 12/26/16 01:20 71 16 35 12/26/16 01:00 72 17 158/60 100 Mechanical Ventilator 35 12/26/16 00:00 98.6 62 17 157/59 100 Mechanical Ventilator 35 12/26/16 00:00 35 12/26/16 00:00 60 12/25/16 23:27 79 17 35 12/25/16 23:00 65 17 140/47 100 Mechanical Ventilator 35 12/25/16 22:00 60 17 157/51 100 Mechanical Ventilator 35 12/25/16 21:03 56 15 35 12/25/16 21:00 62 17 157/51 100 Mechanical Ventilator 35 17 20:03 78 136/47 12/25/16 20:00 73 12/25/16 20:00 35 12/25/16 20:00 98.4 68 17 131/49 100 Mechanical Ventilator 35 17 20:00 68 17 131/49 100 Mechanical Ventilator 35 17 19:03 72 15 35 12/25/17 19:00 70 17 136/47 100 Mechanical Ventilator 35 17 18:40 98.9 17 18:00 99.2 78 18 144/48 100 Mechanical Ventilator 35 Height (Feet): 5 Height (Inches): 1.00 Weight (Pounds): 145 HEENT: anicteric Respiratory/Chest: normal breath sounds Cardiovascular: regular rhythm Abdomen: no organomegaly Laboratory Tests Test 12/26/16 00:15 12/26/16 07:00 12/26/16 15:00 Activated Partial Thromboplast Time 50 SEC (23-33) H 104 SEC (23-33) H 79 SEC (23-33) H White Blood Count 12.1 K/UL (4.8-10.8) H Red Blood Count 2.98 M/UL (4.20-5.40) L Hemoglobin 8.7 G/DL (12.0-16.0) L Hematocrit 28.4 % (37.0-47.0) L Mean Corpuscular Volume 96 FL (80-99) Mean Corpuscular Hemoglobin 29.3 PG (27.0-31.0) Mean Corpuscular Hemoglobin Concent 30.7 G/DL (32.0-36.0) L Red Cell Distribution Width 15.3 % (11.6-14.8) H Platelet Count 342 K/UL (150-450) Mean Platelet Volume 7.6 FL (6.5-10.1) Neutrophils (%) (Auto) 80.3 % (45.0-75.0) H Lymphocytes (%) (Auto) 10.0 % (20.0-45.0) L Monocytes (%) (Auto) 7.2 % (1.0-10.0) Eosinophils (%) (Auto) 1.6 % (0.0-3.0) Basophils (%) (Auto) 0.9 % (0.0-2.0) Sodium Level 156 mEQ/L (135-145) H Potassium Level 3.7 mEQ/L (3.4-4.9) Chloride Level 109 mEQ/L (98-107) H Carbon Dioxide Level 37 mEQ/L (20-30) H Anion Gap 10 (5-15) Blood Urea Nitrogen 37 mg/dL (7-23) H Creatinine 0.9 mg/dL (0.5-0.9) Estimat Glomerular Filtration Rate > 60 mL/min (>60) Glucose Level 149 mg/dL (74-106) H Uric Acid 5.7 mg/dL (3.0-7.5) Calcium Level 9.3 mg/dL (8.6-10.2) Phosphorus Level 3.9 mg/dL (2.5-4.8) Magnesium Level 2.2 mg/dL (1.7-2.5) Total Bilirubin 1.3 mg/dL (0.0-1.2) H Direct Bilirubin 0.6 mg/dL (0.1-0.3) H Aspartate Amino Transf (AST/SGOT) 36 U/L (5-40) Alanine Aminotransferase (ALT/SGPT) 15 U/L (3-33) Alkaline Phosphatase 91 U/L (35-104) C-Reactive Protein, Quantitative 6.8 mg/dL (< 0.5) H Pro-B-Type Natriuretic Peptide 1529 pg/mL (0-125) H Total Protein 6.8 g/dL (6.6-8.7) Albumin 2.3 g/dL (3.5-5.2) L Globulin 4.5 g/dL Albumin/Globulin Ratio 0.5 (1.0-2.7) L Current Medications Medications (Trade) Dose Ordered Sig/Lisbeth Route PRN Reason Start Time Stop Time Status Last Admin Dose Admin Acetaminophen (Tylenol) 650 mg Q4H PRN ORAL fever 12/17/16 08:00 01/16/17 07:59 12/25/16 17:41 Albuterol/ Ipratropium (DuoNeb 0.5-3(2.5)mg/3ml) 3 ml Q4H PRN HHN sob 12/23/16 11:30 12/28/16 11:29 Amlodipine Besylate (Norvasc) 5 mg Q12HR ORAL 12/22/16 21:00 01/21/17 20:59 12/26/16 08:23 Clonidine HCl (Catapres) 0.1 mg Q4H PRN ORAL SBP >160 12/22/16 10:45 01/21/17 10:44 12/26/16 08:25 Dextrose (Dextrose 50%) STAT PRN IV Hypoglycemia 12/17/16 07:30 01/16/17 07:29 Fluconazole/ Sodium Chloride (Diflucan 200mg/ 100ml Premix) 100 ml @ 100 mls/hr Q24H IV 12/19/16 23:00 12/28/16 23:59 12/25/16 23:10 Furosemide 40 mg 40 mg EVERY 12 HOURS IV 12/24/16 21:00 01/23/17 20:59 12/26/16 08:23 Heparin Sodium/ Dextrose (Heparin) 500 ml @ 26.308 mls/ hr adjust per protocol IV 12/26/16 01:48 01/24/17 17:44 12/26/16 13:51 Hydrocortisone (Anusol HC) 1 supp TWICE A DAY RECTAL 12/24/16 18:00 01/23/17 17:59 12/26/16 08:23 Insulin Aspart (NovoLOG) No Dose Q6HR SUBQ 12/17/16 12:00 01/16/17 11:59 12/26/16 12:05 Lorazepam (Ativan 2mg/ml 1ml) 1 mg Q4H PRN IV For Anxiety 12/23/16 08:45 12/30/16 08:44 12/24/16 21:52 Morphine Sulfate (Morphine Sulfate) 4 mg Q4H PRN IVP Severe Pain (Pain Scale 7-10) 12/23/16 11:50 12/27/16 11:49 12/25/16 15:54 Nitroglycerin (Nitro-Bid) 1 inch TID@0600,1200,1800 TOPIC 12/22/16 06:00 01/21/17 05:59 12/26/16 12:00 Nitroglycerin (Ntg) 0.4 mg Q5M X 3 DOSES PRN SL Prn Chest Pain 12/17/16 07:30 01/16/17 07:29 Ondansetron HCl (Zofran) 4 mg Q6H PRN IVP Nausea & Vomiting 12/17/16 07:30 01/16/17 07:29 Pantoprazole 40 mg 40 mg DAILY IVP 12/20/16 09:00 01/19/17 08:59 12/26/16 08:27 Phytonadione (Vitamin K) 10 mg QWEEK SUBQ 12/23/16 21:00 01/22/17 20:59 12/23/16 21:07 Polyethylene Glycol (Miralax) 17 gm HSPRN PRN ORAL Constipation 12/17/16 07:30 01/16/17 07:29 Sucralfate (Carafate) 1 gm FOUR TIMES A DAY ORAL 12/17/16 09:00 01/16/17 08:59 12/26/16 12:01 OSCAR ANDERSON M.D. Dec 26, 2016 17:47
--- NOTE | 2016-12-26 19:20 | Cardiology Progress Note ---
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 prosthesis on anticoagulation perm afib on anticoagulation with Coumadin coagulopathy now elevated due to med interaction adn disease process leukocytosis ARF intra abd hematomas brbpr bloody bm small amount again today good urine output in response to lasix ct performed 12/24/2016 showed multi hematomas in barber bd cavity back on heparin repeat cbc d/w rn bp has been prefect so far repeat echo note lv fxn normal , as( high gradient despite recetn avr ), mvr , pulm htn will need more free water adn continue diuresis will given one dose of Diamox iv continue to wean attempts may consider lasix drip Subjective Cardiovascular: Denies: chest pain, lightheadedness, palpitations Respiratory: Denies: shortness of breath Gastrointestinal/Abdominal: Denies: abdominal pain Genitourinary: Denies: burning Subjective on the vent , wants to go home Objective Last 24 Hour Vital Signs Date Time Temp Pulse Resp B/P Pulse Ox O2 Delivery O2 Flow Rate FiO2 12/26/16 18:36 65 15 35 12/26/16 18:12 159/80 12/26/16 18:00 71 15 154/47 99 Mechanical Ventilator 35 12/26/16 17:25 85 16 35 12/26/16 17:00 71 20 138/43 99 Mechanical Ventilator 35 12/26/16 16:00 77 12/26/16 16:00 99.1 71 20 145/74 99 Mechanical Ventilator 35 12/26/16 16:00 35 12/26/16 15:22 97 23 35 12/26/16 15:00 69 20 135/63 99 Mechanical Ventilator 35 12/26/16 14:00 76 18 136/82 97 Mechanical Ventilator 35 12/26/16 13:06 99 19 35 12/26/16 13:00 91 22 174/80 97 Mechanical Ventilator 35 12/26/16 12:00 98.8 91 23 165/51 97 Mechanical Ventilator 35 12/26/16 12:00 74 12/26/16 12:00 159/45 12/26/16 12:00 35 12/26/16 11:14 102 20 35 12/26/16 11:00 91 23 159/63 100 Mechanical Ventilator 35 12/26/16 10:00 94 22 165/48 100 Mechanical Ventilator 35 12/26/16 09:16 97 26 35 12/26/16 09:15 99 12/26/16 09:00 96 22 159/63 100 Mechanical Ventilator 35 12/26/16 08:25 193/60 12/26/16 08:23 115 193/60 12/26/16 08:00 98.7 102 22 176/66 100 Mechanical Ventilator 35 12/26/16 08:00 35 12/26/16 08:00 76 12/26/16 07:29 107 21 35 12/26/16 07:00 89 17 150/42 100 Mechanical Ventilator 35 12/26/16 06:00 90 17 174/72 100 Mechanical Ventilator 35 12/26/16 05:11 146/44 12/26/16 05:00 85 17 146/44 100 Mechanical Ventilator 35 12/26/16 04:57 64 15 35 12/26/16 04:02 165/52 12/26/16 04:00 76 12/26/16 04:00 98.0 80 17 162/53 100 Mechanical Ventilator 35 12/26/16 04:00 35 12/26/16 03:12 78 17 35 12/26/16 03:00 80 17 165/52 100 Mechanical Ventilator 35 12/26/16 02:00 72 17 165/54 100 Mechanical Ventilator 35 12/26/16 01:20 71 16 35 12/26/16 01:00 72 17 158/60 100 Mechanical Ventilator 35 12/26/16 00:00 98.6 62 17 157/59 100 Mechanical Ventilator 35 12/26/16 00:00 35 12/26/16 00:00 60 12/25/16 23:27 79 17 35 12/25/16 23:00 65 17 140/47 100 Mechanical Ventilator 35 12/25/16 22:00 60 17 157/51 100 Mechanical Ventilator 35 12/25/16 21:03 56 15 35 12/25/16 21:00 62 17 157/51 100 Mechanical Ventilator 35 12/25/16 20:03 78 136/47 12/25/16 20:00 73 12/25/16 20:00 35 12/25/16 20:00 98.4 68 17 131/49 100 Mechanical Ventilator 35 12/25/16 20:00 68 17 131/49 100 Mechanical Ventilator 35 General Appearance: no apparent distress, alert, on vent Cardiovascular: normal rate, regular rhythm Respiratory/Chest: lungs clear Abdomen: normal bowel sounds, non tender, soft Extremities: moderate edema Intake and Output 12/25/16 12/26/16 19:00 07:00 Intake Total 1419.678 ml 1659.763 ml Output Total 1330 ml 1650 ml Balance 89.678 ml 9.763 ml IV Total 1139.678 ml 1409.763 ml Blood Product 250 ml 250 ml Other 30 ml Output Urine Total 1330 ml 1650 ml # Bowel Movements 2 1 Laboratory Tests Test 12/26/16 00:15 12/26/16 07:00 12/26/16 15:00 Activated Partial Thromboplast Time 50 SEC (23-33) H 104 SEC (23-33) H 79 SEC (23-33) H White Blood Count 12.1 K/UL (4.8-10.8) H Red Blood Count 2.98 M/UL (4.20-5.40) L Hemoglobin 8.7 G/DL (12.0-16.0) L Hematocrit 28.4 % (37.0-47.0) L Mean Corpuscular Volume 96 FL (80-99) Mean Corpuscular Hemoglobin 29.3 PG (27.0-31.0) Mean Corpuscular Hemoglobin Concent 30.7 G/DL (32.0-36.0) L Red Cell Distribution Width 15.3 % (11.6-14.8) H Platelet Count 342 K/UL (150-450) Mean Platelet Volume 7.6 FL (6.5-10.1) Neutrophils (%) (Auto) 80.3 % (45.0-75.0) H Lymphocytes (%) (Auto) 10.0 % (20.0-45.0) L Monocytes (%) (Auto) 7.2 % (1.0-10.0) Eosinophils (%) (Auto) 1.6 % (0.0-3.0) Basophils (%) (Auto) 0.9 % (0.0-2.0) Sodium Level 156 mEQ/L (135-145) H Potassium Level 3.7 mEQ/L (3.4-4.9) Chloride Level 109 mEQ/L (98-107) H Carbon Dioxide Level 37 mEQ/L (20-30) H Anion Gap 10 (5-15) Blood Urea Nitrogen 37 mg/dL (7-23) H Creatinine 0.9 mg/dL (0.5-0.9) Estimat Glomerular Filtration Rate > 60 mL/min (>60) Glucose Level 149 mg/dL (74-106) H Uric Acid 5.7 mg/dL (3.0-7.5) Calcium Level 9.3 mg/dL (8.6-10.2) Phosphorus Level 3.9 mg/dL (2.5-4.8) Magnesium Level 2.2 mg/dL (1.7-2.5) Total Bilirubin 1.3 mg/dL (0.0-1.2) H Direct Bilirubin 0.6 mg/dL (0.1-0.3) H Aspartate Amino Transf (AST/SGOT) 36 U/L (5-40) Alanine Aminotransferase (ALT/SGPT) 15 U/L (3-33) Alkaline Phosphatase 91 U/L (35-104) C-Reactive Protein, Quantitative 6.8 mg/dL (< 0.5) H Pro-B-Type Natriuretic Peptide 1529 pg/mL (0-125) H Total Protein 6.8 g/dL (6.6-8.7) Albumin 2.3 g/dL (3.5-5.2) L Globulin 4.5 g/dL Albumin/Globulin Ratio 0.5 (1.0-2.7) L ANNE RAM Dec 26, 2016 19:20
[2016-12-26] MEDS ORDERED: acetaZOLAMIDE 500mg Inj IVP ONE (19:45)
[2016-12-26] MEDS ORDERED: Fat Emulsion Iv 20% 240 ML in Tpn 1,992 ML IV SCH (21:00)
[2016-12-27] VITALS (24 sets, daily range): BP systolic 90–152; BP diastolic 39–83
[2016-12-27] MEDS: Morphine Sulfate 4mg/ml Inj IVP PRN ×3 (00:33→20:52)
[2016-12-27] MEDS: NovoLOG Insulin Flexpen SUBQ SCH ×4 (00:35→17:43)
[2016-12-27 04:07] LABS: MEAN CORPUSCULAR HEMOGLOBIN 29.6 PG (27.0-31.0); MEAN CORPUSCULAR VOLUME 96 FL (80-99); MEAN PLATELET VOLUME 7.5 FL (6.5-10.1); PLATELET COUNT 297 K/UL (150-450); RED BLOOD COUNT 2.66 M/UL (4.20-5.40); WHITE BLOOD COUNT 9.2 K/UL (4.8-10.8)
[2016-12-27 04:22] LABS: MAGNESIUM 1.9 mg/dL (1.7-2.5); PHOSPHORUS 4.3 mg/dL (2.5-4.8)
[2016-12-27 04:25] LABS: ALANINE AMINOTRANSFERASE 18 U/L (3-33); ALBUMIN/GLOBULIN RATIO 0.3 (1.0-2.7); AMYLASE 221 U/L (10-110); ANION GAP 6 (5-15); ASPARTATE AMINO TRANSFERASE 41 U/L (5-40); CALCIUM 8.6 mg/dL (8.6-10.2); CARBON DIOXIDE 38 mEQ/L (20-30); CHLORIDE 108 mEQ/L (98-107); CREATININE 0.8 mg/dL (0.5-0.9); GLOMERULAR FILTRATION RATE > 60 mL/min (>60); HEMOLYSIS 3; LIPASE 120 U/L (< 60); POTASSIUM 3.5 mEQ/L (3.4-4.9); SODIUM 152 mEQ/L (135-145); TOTAL PROTEIN 6.3 g/dL (6.6-8.7)
[2016-12-27 04:58] LABS: INR 1.1 (0.9-1.1); PROTHROMBIN TIME 11.6 SEC (9.30-11.50)
[2016-12-27] MEDS: Nitroglycerin 2% oint pkt TOPIC SCH ×3 (05:34→17:34)
[2016-12-27 06:07] LABS: BILIRUBIN,DIRECT 0.6 mg/dL (0.1-0.3)
[2016-12-27] MEDS: Anusol HC Supp RECTAL SCH ×2 (08:46→17:33)
[2016-12-27] MEDS: Pantoprazole Inj IVP SCH (08:46)
[2016-12-27] MEDS: Sucralfate 1gm tab ORAL SCH ×4 (08:46→20:52)
[2016-12-27] MEDS: Heparin 25,000u/D5W 500ml 500 ML IV SCH (09:46)
[2016-12-27] MEDS: LORazepam Inj 2mg/ml 1ml IV PRN (09:51)
--- NOTE | 2016-12-27 10:14 | Pulmonolgy Critical Care Note ---
Critical Care - Asmt/Plan Problems: (1) Respiratory failure requiring intubation (2) Sepsis (3) Pancreatitis (4) ATN (acute tubular necrosis) (5) Atrial fibrillation Respiratory: monitor respiratory rate, adjust FIO2, weaning trial Cardiac: continue to monitor HR/BP Renal: F/U I&O, keep IV fluid, check electrolytes Infectious Disease: check cultures, continue antibiotics Gastrointestinal: continue feedings/current rate Endocrine: monitor blood sugar, check TSH, continue sliding scale insulin Hematologic: transfuse if hgb<8.5 Neurologic: PRN Ativan, PRN Morphine, keep patient comfortable Affect: PRN ativan Prophylaxis: Protonix Disposition: keep in ICU Notes Reviewed: cardio, ID Discussed with: nurses, consultants, community case managermanager treasury - Objective Last 24 Hour Vital Signs Date Time Temp Pulse Resp B/P Pulse Ox O2 Delivery O2 Flow Rate FiO2 12/27/16 10:00 92 16 114/83 99 Mechanical Ventilator 35 12/27/16 09:11 97 12/27/16 09:11 84 26 35 12/27/16 09:00 97 20 150/54 95 Mechanical Ventilator 35 12/27/16 08:46 68 140/62 12/27/16 08:00 78 15 140/62 99 Mechanical Ventilator 35 12/27/16 08:00 72 12/27/16 08:00 35 12/27/16 07:02 72 19 35 12/27/16 07:00 98.5 76 16 151/60 99 Mechanical Ventilator 35 12/27/16 06:00 76 16 151/65 99 Mechanical Ventilator 35 12/27/16 05:34 139/55 12/27/16 05:14 59 15 35 12/27/16 05:00 58 15 139/55 100 Mechanical Ventilator 35 12/27/16 04:00 35 12/27/16 04:00 97.7 53 15 129/48 100 Mechanical Ventilator 35 12/27/16 04:00 62 12/27/16 03:06 64 15 35 12/27/16 03:00 61 15 136/57 99 Mechanical Ventilator 35 12/27/16 02:00 74 15 143/43 99 Mechanical Ventilator 35 12/27/16 01:00 61 15 118/39 100 Mechanical Ventilator 35 12/27/16 00:44 64 15 35 12/27/16 00:00 98.4 65 15 148/55 100 Mechanical Ventilator 35 12/27/16 00:00 35 12/27/16 00:00 64 12/26/16 23:00 69 15 146/44 100 Mechanical Ventilator 35 12/26/16 22:53 59 15 35 12/26/16 22:00 69 17 133/41 100 Mechanical Ventilator 35 12/26/16 21:00 69 16 138/47 100 Mechanical Ventilator 35 12/26/16 20:57 76 15 35 12/26/16 20:21 69 158/46 12/26/16 20:00 98.3 74 16 158/46 100 Mechanical Ventilator 35 12/26/16 20:00 35 12/26/16 20:00 65 12/26/16 19:00 64 15 143/43 99 Mechanical Ventilator 35 12/26/16 18:36 65 15 35 12/26/16 18:12 159/80 12/26/16 18:00 71 15 154/47 99 Mechanical Ventilator 35 12/26/16 17:25 85 16 35 12/26/16 17:00 71 20 138/43 99 Mechanical Ventilator 35 12/26/16 16:00 77 12/26/16 16:00 99.1 71 20 145/74 99 Mechanical Ventilator 35 12/26/16 16:00 35 12/26/16 15:22 97 23 35 12/26/16 15:00 69 20 135/63 99 Mechanical Ventilator 35 12/26/16 14:00 76 18 136/82 97 Mechanical Ventilator 35 12/26/16 13:06 99 19 35 12/26/16 13:00 91 22 174/80 97 Mechanical Ventilator 35 12/26/16 12:00 98.8 91 23 165/51 97 Mechanical Ventilator 35 12/26/16 12:00 74 12/26/16 12:00 159/45 12/26/16 12:00 35 12/26/16 11:14 102 20 35 12/26/16 11:00 91 23 159/63 100 Mechanical Ventilator 35 Status: awake Condition: critical HEENT: atraumatic Neck: full ROM Lungs: clear Heart: HR/BP stable, HR/BP unstable Abdomen: soft, non-tender, active bowel sounds Extremities: no C/C/E, edema Decubiti: stage Accucheck: 135 Critical Care - Subjective ROS Limited/Unobtainable: Yes ICU Day: 10 Condition: critical EKG Rhythm: Sinus Rhythm FI02: 35 Vent Support Breath Rate: 15 Vent Support Mode: CPAP Vent Tidal Volume: 500 Sputum Amount: Moderate PEEP: 5.0 PIP: 14 Drips: heparin drip Tube Feeding Amount: 40 I&O: Intake and Output 12/26/16 12/27/16 19:00 07:00 Intake Total 393.8 ml 1291.6 ml Output Total 1115 ml 1065 ml Balance -721.2 ml 226.6 ml Free Water 290 ml IV Total 343.8 ml 691.6 ml Tube Feeding 40 ml 310 ml Other 10 ml Output Urine Total 1115 ml 1065 ml # Bowel Movements 3 2 CXR: pulmonary edema ET-Tube: 7.5 ET Position: 22 Labs: Laboratory Tests Test 12/26/16 15:00 12/27/16 03:35 Activated Partial Thromboplast Time 79 SEC (23-33) H 76 SEC (23-33) H White Blood Count 9.2 K/UL (4.8-10.8) Red Blood Count 2.66 M/UL (4.20-5.40) L Hemoglobin 7.9 G/DL (12.0-16.0) L Hematocrit 25.4 % (37.0-47.0) L Mean Corpuscular Volume 96 FL (80-99) Mean Corpuscular Hemoglobin 29.6 PG (27.0-31.0) Mean Corpuscular Hemoglobin Concent 31.0 G/DL (32.0-36.0) L Red Cell Distribution Width 15.0 % (11.6-14.8) H Platelet Count 297 K/UL (150-450) Mean Platelet Volume 7.5 FL (6.5-10.1) Neutrophils (%) (Auto) % (45.0-75.0) Lymphocytes (%) (Auto) % (20.0-45.0) Monocytes (%) (Auto) % (1.0-10.0) Eosinophils (%) (Auto) % (0.0-3.0) Basophils (%) (Auto) % (0.0-2.0) Prothrombin Time 11.6 SEC (9.30-11.50) H Prothromb Time International Ratio 1.1 (0.9-1.1) Sodium Level 152 mEQ/L (135-145) H Potassium Level 3.5 mEQ/L (3.4-4.9) Chloride Level 108 mEQ/L (98-107) H Carbon Dioxide Level 38 mEQ/L (20-30) H Anion Gap 6 (5-15) Blood Urea Nitrogen 35 mg/dL (7-23) H Creatinine 0.8 mg/dL (0.5-0.9) Estimat Glomerular Filtration Rate > 60 mL/min (>60) Glucose Level 137 mg/dL (74-106) H Calcium Level 8.6 mg/dL (8.6-10.2) Phosphorus Level 4.3 mg/dL (2.5-4.8) Magnesium Level 1.9 mg/dL (1.7-2.5) Total Bilirubin 1.4 mg/dL (0.0-1.2) H Direct Bilirubin 0.6 mg/dL (0.1-0.3) H Aspartate Amino Transf (AST/SGOT) 41 U/L (5-40) H Alanine Aminotransferase (ALT/SGPT) 18 U/L (3-33) Alkaline Phosphatase 92 U/L (35-104) Total Protein 6.3 g/dL (6.6-8.7) L Albumin 1.7 g/dL (3.5-5.2) L Globulin 4.6 g/dL Albumin/Globulin Ratio 0.3 (1.0-2.7) L Amylase Level 221 U/L (10-110) H Lipase 120 U/L (< 60) H TONY BRIDGES Dec 27, 2016 10:14
--- NOTE | 2016-12-27 11:07 | General Surgery Progress Note ---
General Surgery-Progress Note Subjective Additional Comments patient seen and examined. no acute events. no complaints. no abdominal pain . Objective Last 24 Hour Vital Signs Date Time Temp Pulse Resp B/P Pulse Ox O2 Delivery O2 Flow Rate FiO2 12/27/16 11:00 75 17 125/53 99 Mechanical Ventilator 35 12/27/16 10:00 92 16 114/83 99 Mechanical Ventilator 35 12/27/16 09:11 97 12/27/16 09:11 84 26 35 12/27/16 09:00 97 20 150/54 95 Mechanical Ventilator 35 12/27/16 08:46 68 140/62 12/27/16 08:00 78 15 140/62 99 Mechanical Ventilator 35 12/27/16 08:00 72 12/27/16 08:00 35 12/27/16 07:02 72 19 35 12/27/16 07:00 98.5 76 16 151/60 99 Mechanical Ventilator 35 12/27/16 06:00 76 16 151/65 99 Mechanical Ventilator 35 12/27/16 05:34 139/55 12/27/16 05:14 59 15 35 12/27/16 05:00 58 15 139/55 100 Mechanical Ventilator 35 12/27/16 04:00 35 12/27/16 04:00 97.7 53 15 129/48 100 Mechanical Ventilator 35 12/27/16 04:00 62 12/27/16 03:06 64 15 35 12/27/16 03:00 61 15 136/57 99 Mechanical Ventilator 35 12/27/16 02:00 74 15 143/43 99 Mechanical Ventilator 35 12/27/16 01:00 61 15 118/39 100 Mechanical Ventilator 35 12/27/16 00:44 64 15 35 12/27/16 00:00 98.4 65 15 148/55 100 Mechanical Ventilator 35 12/27/16 00:00 35 12/27/16 00:00 64 12/26/16 23:00 69 15 146/44 100 Mechanical Ventilator 35 12/26/16 22:53 59 15 35 12/26/16 22:00 69 17 133/41 100 Mechanical Ventilator 35 12/26/16 21:00 69 16 138/47 100 Mechanical Ventilator 35 12/26/16 20:57 76 15 35 12/26/16 20:21 69 158/46 12/26/16 20:00 98.3 74 16 158/46 100 Mechanical Ventilator 35 12/26/16 20:00 35 12/26/16 20:00 65 12/26/16 19:00 64 15 143/43 99 Mechanical Ventilator 35 12/26/16 18:36 65 15 35 12/26/16 18:12 159/80 12/26/16 18:00 71 15 154/47 99 Mechanical Ventilator 35 12/26/16 17:25 85 16 35 12/26/16 17:00 71 20 138/43 99 Mechanical Ventilator 35 12/26/16 16:00 77 12/26/16 16:00 99.1 71 20 145/74 99 Mechanical Ventilator 35 12/26/16 16:00 35 12/26/16 15:22 97 23 35 12/26/16 15:00 69 20 135/63 99 Mechanical Ventilator 35 12/26/16 14:00 76 18 136/82 97 Mechanical Ventilator 35 12/26/16 13:06 99 19 35 12/26/16 13:00 91 22 174/80 97 Mechanical Ventilator 35 12/26/16 12:00 98.8 91 23 165/51 97 Mechanical Ventilator 35 12/26/16 12:00 74 12/26/16 12:00 159/45 12/26/16 12:00 35 12/26/16 11:14 102 20 35 I&O Intake and Output 12/26/16 12/27/16 19:00 07:00 Intake Total 393.8 ml 1291.6 ml Output Total 1115 ml 1065 ml Balance -721.2 ml 226.6 ml Free Water 290 ml IV Total 343.8 ml 691.6 ml Tube Feeding 40 ml 310 ml Other 10 ml Output Urine Total 1115 ml 1065 ml # Bowel Movements 3 2 Laboratory Tests Test 12/26/16 15:00 12/27/16 03:35 Activated Partial Thromboplast Time 79 SEC (23-33) H 76 SEC (23-33) H White Blood Count 9.2 K/UL (4.8-10.8) Red Blood Count 2.66 M/UL (4.20-5.40) L Hemoglobin 7.9 G/DL (12.0-16.0) L Hematocrit 25.4 % (37.0-47.0) L Mean Corpuscular Volume 96 FL (80-99) Mean Corpuscular Hemoglobin 29.6 PG (27.0-31.0) Mean Corpuscular Hemoglobin Concent 31.0 G/DL (32.0-36.0) L Red Cell Distribution Width 15.0 % (11.6-14.8) H Platelet Count 297 K/UL (150-450) Mean Platelet Volume 7.5 FL (6.5-10.1) Neutrophils (%) (Auto) % (45.0-75.0) Lymphocytes (%) (Auto) % (20.0-45.0) Monocytes (%) (Auto) % (1.0-10.0) Eosinophils (%) (Auto) % (0.0-3.0) Basophils (%) (Auto) % (0.0-2.0) Prothrombin Time 11.6 SEC (9.30-11.50) H Prothromb Time International Ratio 1.1 (0.9-1.1) Sodium Level 152 mEQ/L (135-145) H Potassium Level 3.5 mEQ/L (3.4-4.9) Chloride Level 108 mEQ/L (98-107) H Carbon Dioxide Level 38 mEQ/L (20-30) H Anion Gap 6 (5-15) Blood Urea Nitrogen 35 mg/dL (7-23) H Creatinine 0.8 mg/dL (0.5-0.9) Estimat Glomerular Filtration Rate > 60 mL/min (>60) Glucose Level 137 mg/dL (74-106) H Calcium Level 8.6 mg/dL (8.6-10.2) Phosphorus Level 4.3 mg/dL (2.5-4.8) Magnesium Level 1.9 mg/dL (1.7-2.5) Total Bilirubin 1.4 mg/dL (0.0-1.2) H Direct Bilirubin 0.6 mg/dL (0.1-0.3) H Aspartate Amino Transf (AST/SGOT) 41 U/L (5-40) H Alanine Aminotransferase (ALT/SGPT) 18 U/L (3-33) Alkaline Phosphatase 92 U/L (35-104) Total Protein 6.3 g/dL (6.6-8.7) L Albumin 1.7 g/dL (3.5-5.2) L Globulin 4.6 g/dL Albumin/Globulin Ratio 0.3 (1.0-2.7) L Amylase Level 221 U/L (10-110) H Lipase 120 U/L (< 60) H Plan Problems: (1) Phlegmon of pancreas (2) Pancreatitis Assessment & Plan: 71 F acute severe pancreatitis. Afebrile, HD stable, still on vent with difficulty weaning, leukocytosis resolved today, abdominal exam stable. No acute surgical intervention planned. Cont with medical management of acute sever pancreatitis. Rodrigo Andino Dec 27, 2016 11:07
--- NOTE | 2016-12-27 11:29 | Infectious Diseases Prog Note ---
Assessment/Plan Assessment/Plan ASSESSMENT: Pancreatitis recurrent CT: Findings compatible with marked worsening of acute pancreatitis MRCP : Cholelithiasis. There is also a calculus within the duct adjacent to the gallbladder Pancreatic Enzymes improving CT of Abd : reviewed Leukocytosis ( SIRS ) improving SP cholelithiasis : US of liver : Incidental finding of cholelithiasis and mild gallbladder wall thickening positive sonographic Diaz's sign LFT : Nl UTI : Mandy SCx : Mandy ( colonizer ) VDRF: Cxray : Increase in bilateral congestive changes with persistent small right , probable new left pleural effusions ARF SP aortic stenosis mitral stenosis status post mitral valve replacement AFib Pulmonary hypertension PLAN: - cont Diflucan d# 9 / 10 ( 12/24 SP DC Merrem d# / ) - monitor CBC, temperatures, - Monitor culture ( BL) - monitor LFT - GI f/u - Sx is following for possible Cholecystectomy later - VDRF - possible trach Saturday Subjective Allergies: Coded Allergies: No Known Allergies (Unverified , 09/28/14) Subjective on Vent Objective Vital Signs Last 24 Hour Vital Signs Date Time Temp Pulse Resp B/P Pulse Ox O2 Delivery O2 Flow Rate FiO2 12/27/16 11:00 75 17 125/53 99 Mechanical Ventilator 35 12/27/16 10:00 92 16 114/83 99 Mechanical Ventilator 35 12/27/16 09:45 35 12/27/16 09:15 35 12/27/16 09:11 97 12/27/16 09:11 84 26 35 12/27/16 09:00 97 20 150/54 95 Mechanical Ventilator 35 12/27/16 08:46 68 140/62 12/27/16 08:00 78 15 140/62 99 Mechanical Ventilator 35 12/27/16 08:00 72 12/27/16 08:00 35 12/27/16 07:02 72 19 35 12/27/16 07:00 98.5 76 16 151/60 99 Mechanical Ventilator 35 12/27/16 06:00 76 16 151/65 99 Mechanical Ventilator 35 12/27/16 05:34 139/55 12/27/16 05:14 59 15 35 12/27/16 05:00 58 15 139/55 100 Mechanical Ventilator 35 12/27/16 04:00 35 12/27/16 04:00 97.7 53 15 129/48 100 Mechanical Ventilator 35 12/27/16 04:00 62 12/27/16 03:06 64 15 35 12/27/16 03:00 61 15 136/57 99 Mechanical Ventilator 35 12/27/16 02:00 74 15 143/43 99 Mechanical Ventilator 35 12/27/16 01:00 61 15 118/39 100 Mechanical Ventilator 35 12/27/16 00:44 64 15 35 12/27/16 00:00 98.4 65 15 148/55 100 Mechanical Ventilator 35 12/27/16 00:00 35 12/27/16 00:00 64 12/26/16 23:00 69 15 146/44 100 Mechanical Ventilator 35 12/26/16 22:53 59 15 35 12/26/16 22:00 69 17 133/41 100 Mechanical Ventilator 35 12/26/16 21:00 69 16 138/47 100 Mechanical Ventilator 35 12/26/16 20:57 76 15 35 12/26/16 20:21 69 158/46 12/26/16 20:00 98.3 74 16 158/46 100 Mechanical Ventilator 35 12/26/16 20:00 35 12/26/16 20:00 65 12/26/16 19:00 64 15 143/43 99 Mechanical Ventilator 35 12/26/16 18:36 65 15 35 12/26/16 18:12 159/80 12/26/16 18:00 71 15 154/47 99 Mechanical Ventilator 35 12/26/16 17:25 85 16 35 12/26/16 17:00 71 20 138/43 99 Mechanical Ventilator 35 12/26/16 16:00 77 12/26/16 16:00 99.1 71 20 145/74 99 Mechanical Ventilator 35 12/26/16 16:00 35 12/26/16 15:22 97 23 35 12/26/16 15:00 69 20 135/63 99 Mechanical Ventilator 35 12/26/16 14:00 76 18 136/82 97 Mechanical Ventilator 35 12/26/16 13:06 99 19 35 12/26/16 13:00 91 22 174/80 97 Mechanical Ventilator 35 12/26/16 12:00 98.8 91 23 165/51 97 Mechanical Ventilator 35 12/26/16 12:00 74 12/26/16 12:00 159/45 12/26/16 12:00 35 Height (Feet): 5 Height (Inches): 1.00 Weight (Pounds): 145 HEENT: atraumatic Respiratory/Chest: normal breath sounds Cardiovascular: regularly irregular Abdomen: no organomegaly Laboratory Tests Test 12/26/16 15:00 12/27/16 03:35 Activated Partial Thromboplast Time 79 SEC (23-33) H 76 SEC (23-33) H White Blood Count 9.2 K/UL (4.8-10.8) Red Blood Count 2.66 M/UL (4.20-5.40) L Hemoglobin 7.9 G/DL (12.0-16.0) L Hematocrit 25.4 % (37.0-47.0) L Mean Corpuscular Volume 96 FL (80-99) Mean Corpuscular Hemoglobin 29.6 PG (27.0-31.0) Mean Corpuscular Hemoglobin Concent 31.0 G/DL (32.0-36.0) L Red Cell Distribution Width 15.0 % (11.6-14.8) H Platelet Count 297 K/UL (150-450) Mean Platelet Volume 7.5 FL (6.5-10.1) Neutrophils (%) (Auto) % (45.0-75.0) Lymphocytes (%) (Auto) % (20.0-45.0) Monocytes (%) (Auto) % (1.0-10.0) Eosinophils (%) (Auto) % (0.0-3.0) Basophils (%) (Auto) % (0.0-2.0) Prothrombin Time 11.6 SEC (9.30-11.50) H Prothromb Time International Ratio 1.1 (0.9-1.1) Sodium Level 152 mEQ/L (135-145) H Potassium Level 3.5 mEQ/L (3.4-4.9) Chloride Level 108 mEQ/L (98-107) H Carbon Dioxide Level 38 mEQ/L (20-30) H Anion Gap 6 (5-15) Blood Urea Nitrogen 35 mg/dL (7-23) H Creatinine 0.8 mg/dL (0.5-0.9) Estimat Glomerular Filtration Rate > 60 mL/min (>60) Glucose Level 137 mg/dL (74-106) H Calcium Level 8.6 mg/dL (8.6-10.2) Phosphorus Level 4.3 mg/dL (2.5-4.8) Magnesium Level 1.9 mg/dL (1.7-2.5) Total Bilirubin 1.4 mg/dL (0.0-1.2) H Direct Bilirubin 0.6 mg/dL (0.1-0.3) H Aspartate Amino Transf (AST/SGOT) 41 U/L (5-40) H Alanine Aminotransferase (ALT/SGPT) 18 U/L (3-33) Alkaline Phosphatase 92 U/L (35-104) Total Protein 6.3 g/dL (6.6-8.7) L Albumin 1.7 g/dL (3.5-5.2) L Globulin 4.6 g/dL Albumin/Globulin Ratio 0.3 (1.0-2.7) L Amylase Level 221 U/L (10-110) H Lipase 120 U/L (< 60) H Current Medications Medications (Trade) Dose Ordered Sig/Lisbeth Route PRN Reason Start Time Stop Time Status Last Admin Dose Admin Acetaminophen (Tylenol) 650 mg Q4H PRN ORAL fever 12/17/16 08:00 01/16/17 07:59 12/25/16 17:41 Albuterol/ Ipratropium (DuoNeb 0.5-3(2.5)mg/3ml) 3 ml Q4H PRN HHN sob 12/23/16 11:30 12/28/16 11:29 Amlodipine Besylate (Norvasc) 5 mg Q12HR ORAL 12/22/16 21:00 01/21/17 20:59 12/27/16 08:46 Clonidine HCl (Catapres) 0.1 mg Q4H PRN ORAL SBP >160 12/22/16 10:45 01/21/17 10:44 12/26/16 08:25 Dextrose (Dextrose 50%) STAT PRN IV Hypoglycemia 12/17/16 07:30 01/16/17 07:29 Fluconazole/ Sodium Chloride (Diflucan 200mg/ 100ml Premix) 100 ml @ 100 mls/hr Q24H IV 12/19/16 23:00 12/28/16 23:59 12/26/16 23:02 Furosemide (Lasix) 40 mg Q8H IV 12/27/16 01:00 01/26/17 00:59 12/27/16 08:45 Heparin Sodium/ Dextrose (Heparin) 500 ml @ 26.308 mls/ hr adjust per protocol IV 12/26/16 01:48 01/24/17 17:44 12/27/16 09:46 Hydrocortisone 1 supp 1 supp TWICE A DAY RECTAL 12/24/16 18:00 01/23/17 17:59 12/27/16 08:46 Insulin Aspart (NovoLOG) No Dose Q6HR SUBQ 12/17/16 12:00 01/16/17 11:59 12/27/16 05:36 Lorazepam (Ativan 2mg/ml 1ml) 1 mg Q4H PRN IV For Anxiety 12/23/16 08:45 12/30/16 08:44 12/27/16 09:51 Morphine Sulfate (Morphine Sulfate) 4 mg Q4H PRN IVP Severe Pain (Pain Scale 7-10) 12/23/16 11:50 12/27/16 11:49 12/27/16 00:33 Nitroglycerin (Nitro-Bid) 1 inch TID@0600,1200,1800 TOPIC 12/22/16 06:00 01/21/17 05:59 12/27/16 05:34 Nitroglycerin (Ntg) 0.4 mg Q5M X 3 DOSES PRN SL Prn Chest Pain 12/17/16 07:30 01/16/17 07:29 Ondansetron HCl (Zofran) 4 mg Q6H PRN IVP Nausea & Vomiting 12/17/16 07:30 01/16/17 07:29 Pantoprazole 40 mg 40 mg DAILY IVP 12/20/16 09:00 01/19/17 08:59 12/27/16 08:46 Phytonadione (Vitamin K) 10 mg QWEEK SUBQ 12/23/16 21:00 01/22/17 20:59 12/23/16 21:07 Polyethylene Glycol (Miralax) 17 gm HSPRN PRN ORAL Constipation 12/17/16 07:30 01/16/17 07:29 Sucralfate (Carafate) 1 gm FOUR TIMES A DAY ORAL 12/17/16 09:00 01/16/17 08:59 12/27/16 08:46 OSCAR ANDERSON M.D. Dec 27, 2016 11:29
--- NOTE | 2016-12-27 11:53 | GI Progress Note ---
Assessment/Plan Problems: (1) Pancreatitis ICD Codes: K85.9 - Acute pancreatitis, unspecified SNOMED: 92276324 Qualifiers: Qualified Codes: K85.10 - Biliary acute pancreatitis without necrosis or infection (2) Abdominal pain ICD Codes: R10.9 - Unspecified abdominal pain SNOMED: 21196181, 674142403 (3) Iron deficiency anemia ICD Codes: D50.9 - Iron deficiency anemia, unspecified SNOMED: 23593963 (4) Colon polyp ICD Codes: K63.5 - Polyp of colon SNOMED: 81138210 Status: unchanged Status Narrative Discussed with Dr. Gipson. Assessment/Plan Assessment Pancreatitis - resolving, but abdomen still very distended >> amylase / lipase still elevated cholelithiasis, no e/o choledocholithiasis Leukocytosis improving Respiratory failure Azotemia improving Anemia colon polyp fu CT >> New finding of a 6 x 4.4 x 4.9 cm masslike lesion in the left paracolic gutter, which compresses and splays but does not appear to obstruct an adjacent small bowel loop, see full report. Assessment/Plan dc TPN, cont NGTFs per dietary abx monitor H&H, transfuse prn ppi + cararate follow labs supportive care surgical planning Subjective Subjective limited Objective Last 24 Hour Vital Signs Date Time Temp Pulse Resp B/P Pulse Ox O2 Delivery O2 Flow Rate FiO2 12/27/16 11:00 75 17 125/53 99 Mechanical Ventilator 35 12/27/16 10:43 82 18 35 12/27/16 10:00 92 16 114/83 99 Mechanical Ventilator 35 12/27/16 09:45 35 12/27/16 09:15 35 12/27/16 09:11 97 12/27/16 09:11 84 26 35 12/27/16 09:00 97 20 150/54 95 Mechanical Ventilator 35 12/27/16 08:46 68 140/62 12/27/16 08:00 78 15 140/62 99 Mechanical Ventilator 35 12/27/16 08:00 72 12/27/16 08:00 35 12/27/16 07:02 72 19 35 12/27/16 07:00 98.5 76 16 151/60 99 Mechanical Ventilator 35 12/27/16 06:00 76 16 151/65 99 Mechanical Ventilator 35 12/27/16 05:34 139/55 12/27/16 05:14 59 15 35 12/27/16 05:00 58 15 139/55 100 Mechanical Ventilator 35 12/27/16 04:00 35 12/27/16 04:00 97.7 53 15 129/48 100 Mechanical Ventilator 35 12/27/16 04:00 62 12/27/16 03:06 64 15 35 12/27/16 03:00 61 15 136/57 99 Mechanical Ventilator 35 12/27/16 02:00 74 15 143/43 99 Mechanical Ventilator 35 12/27/16 01:00 61 15 118/39 100 Mechanical Ventilator 35 12/27/16 00:44 64 15 35 12/27/16 00:00 98.4 65 15 148/55 100 Mechanical Ventilator 35 12/27/16 00:00 35 12/27/16 00:00 64 12/26/16 23:00 69 15 146/44 100 Mechanical Ventilator 35 12/26/16 22:53 59 15 35 12/26/16 22:00 69 17 133/41 100 Mechanical Ventilator 35 12/26/16 21:00 69 16 138/47 100 Mechanical Ventilator 35 12/26/16 20:57 76 15 35 12/26/16 20:21 69 158/46 12/26/16 20:00 98.3 74 16 158/46 100 Mechanical Ventilator 35 12/26/16 20:00 35 12/26/16 20:00 65 12/26/16 19:00 64 15 143/43 99 Mechanical Ventilator 35 12/26/16 18:36 65 15 35 12/26/16 18:12 159/80 12/26/16 18:00 71 15 154/47 99 Mechanical Ventilator 35 12/26/16 17:25 85 16 35 12/26/16 17:00 71 20 138/43 99 Mechanical Ventilator 35 12/26/16 16:00 77 12/26/16 16:00 99.1 71 20 145/74 99 Mechanical Ventilator 35 12/26/16 16:00 35 12/26/16 15:22 97 23 35 12/26/16 15:00 69 20 135/63 99 Mechanical Ventilator 35 12/26/16 14:00 76 18 136/82 97 Mechanical Ventilator 35 12/26/16 13:06 99 19 35 12/26/16 13:00 91 22 174/80 97 Mechanical Ventilator 35 12/26/16 12:00 98.8 91 23 165/51 97 Mechanical Ventilator 35 12/26/16 12:00 74 12/26/16 12:00 159/45 12/26/16 12:00 35 Intake and Output 12/26/16 12/27/16 19:00 07:00 Intake Total 393.8 ml 1291.6 ml Output Total 1115 ml 1065 ml Balance -721.2 ml 226.6 ml Free Water 290 ml IV Total 343.8 ml 691.6 ml Tube Feeding 40 ml 310 ml Other 10 ml Output Urine Total 1115 ml 1065 ml # Bowel Movements 3 2 Laboratory Tests Test 12/26/16 15:00 12/27/16 03:35 Activated Partial Thromboplast Time 79 SEC (23-33) H 76 SEC (23-33) H White Blood Count 9.2 K/UL (4.8-10.8) Red Blood Count 2.66 M/UL (4.20-5.40) L Hemoglobin 7.9 G/DL (12.0-16.0) L Hematocrit 25.4 % (37.0-47.0) L Mean Corpuscular Volume 96 FL (80-99) Mean Corpuscular Hemoglobin 29.6 PG (27.0-31.0) Mean Corpuscular Hemoglobin Concent 31.0 G/DL (32.0-36.0) L Red Cell Distribution Width 15.0 % (11.6-14.8) H Platelet Count 297 K/UL (150-450) Mean Platelet Volume 7.5 FL (6.5-10.1) Neutrophils (%) (Auto) % (45.0-75.0) Lymphocytes (%) (Auto) % (20.0-45.0) Monocytes (%) (Auto) % (1.0-10.0) Eosinophils (%) (Auto) % (0.0-3.0) Basophils (%) (Auto) % (0.0-2.0) Prothrombin Time 11.6 SEC (9.30-11.50) H Prothromb Time International Ratio 1.1 (0.9-1.1) Sodium Level 152 mEQ/L (135-145) H Potassium Level 3.5 mEQ/L (3.4-4.9) Chloride Level 108 mEQ/L (98-107) H Carbon Dioxide Level 38 mEQ/L (20-30) H Anion Gap 6 (5-15) Blood Urea Nitrogen 35 mg/dL (7-23) H Creatinine 0.8 mg/dL (0.5-0.9) Estimat Glomerular Filtration Rate > 60 mL/min (>60) Glucose Level 137 mg/dL (74-106) H Calcium Level 8.6 mg/dL (8.6-10.2) Phosphorus Level 4.3 mg/dL (2.5-4.8) Magnesium Level 1.9 mg/dL (1.7-2.5) Total Bilirubin 1.4 mg/dL (0.0-1.2) H Direct Bilirubin 0.6 mg/dL (0.1-0.3) H Aspartate Amino Transf (AST/SGOT) 41 U/L (5-40) H Alanine Aminotransferase (ALT/SGPT) 18 U/L (3-33) Alkaline Phosphatase 92 U/L (35-104) Total Protein 6.3 g/dL (6.6-8.7) L Albumin 1.7 g/dL (3.5-5.2) L Globulin 4.6 g/dL Albumin/Globulin Ratio 0.3 (1.0-2.7) L Amylase Level 221 U/L (10-110) H Lipase 120 U/L (< 60) H Height (Feet): 5 Height (Inches): 1.00 Weight (Pounds): 145 General Appearance: no apparent distress Cardiovascular: normal rate Respiratory/Chest: other - mech vent Abdominal Exam: other - NGTFs Objective Service Date: 12/11/16 Procedure: MRI Abdomen no Contrast Indication: Abdominal pain, possible pancreatitis Findings: Multiple calcifications are seen within the gallbladder. There is a ductal structure cephalad to the gallbladder which contains a filling defect. This is probably the cystic duct, but could be an extrahepatic bile duct, and it is uncertain which of these is. The gallbladder wall is not thickened. The extrahepatic bile ducts are ectatic, with the common bile duct measuring up to 9 mm diameter , but no downstream filling defects are demonstrated. The common bile duct terminates abruptly at the level of the ampulla. The pancreatic duct is mildly ectatic, measuring 3-4 mm in diameter. No intraluminal filling defects are demonstrated. A 7 mm fluid signal lesion is seen within the uncinate process of the pancreas. This may actually be a duodenal diverticulum which is seen on the recent CT scan. There is apparent swelling of the pancreas and considerable free intraperitoneal fluid. No free intraperitoneal fluid presumably increased from the prior CT scan. There are dilated small bowel loops, likely indicating ileus. The liver is unremarkable. The adrenals and kidneys are unremarkable. There are bilateral small pleural effusions. The spleen is unremarkable. The heart is enlarged Impression: Cholelithiasis. There is also a calculus within the duct adjacent to the gallbladder which is probably the cystic duct but could be an extrahepatic bile duct. Extrahepatic and central intrahepatic biliary ductal mild dilatation. No definite downstream calculus or pancreatic head mass to account for this, however. Prominence and edema of the pancreas, better visualized on prior CT scan, consistent with acute pancreatitis, also previously described Ascites fluid, increased from the prior CT scan, likely secondary to the acute pancreatitis Dilated small bowel loops, new since prior CT study. Suspect representing ileus related to the pancreatitis Bilateral small pleural effusions Small cystic lesion within the as a process. Suspect that this is actually the duodenal diverticulum described on recent CT scan, but could represent a tiny pseudocyst or intraductal papillary mucinous neoplasm. Cardiomegaly Lulu Dominguez N.P. Dec 27, 2016 11:53
--- NOTE | 2016-12-27 14:58 | General Progress Note ---
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 on anticoagulation Pulmonary HTN HypoAlbuminemia Plan: Per GI / Surgery Keep BP under control Avoid nephrotoxics K supplement as needed monitor renal parameters Subjective ROS Limited/Unobtainable: Yes Allergies: Coded Allergies: No Known Allergies (Unverified , 09/28/14) Objective Last 24 Hour Vital Signs Date Time Temp Pulse Resp B/P Pulse Ox O2 Delivery O2 Flow Rate FiO2 12/27/16 14:00 72 20 138/45 97 Mechanical Ventilator 35 12/27/16 13:00 76 16 128/55 98 Mechanical Ventilator 35 12/27/16 12:40 62 15 35 12/27/16 12:00 98.0 75 18 134/60 100 Mechanical Ventilator 35 12/27/16 12:00 70 12/27/16 12:00 125/53 12/27/16 11:00 75 17 125/53 99 Mechanical Ventilator 35 12/27/16 10:43 82 18 35 12/27/16 10:00 92 16 114/83 99 Mechanical Ventilator 35 12/27/16 09:45 35 12/27/16 09:15 35 12/27/16 09:11 97 12/27/16 09:11 84 26 35 12/27/16 09:00 97 20 150/54 95 Mechanical Ventilator 35 12/27/16 08:46 68 140/62 12/27/16 08:00 78 15 140/62 99 Mechanical Ventilator 35 12/27/16 08:00 72 12/27/16 08:00 35 12/27/16 07:02 72 19 35 12/27/16 07:00 98.5 76 16 151/60 99 Mechanical Ventilator 35 12/27/16 06:00 76 16 151/65 99 Mechanical Ventilator 35 12/27/16 05:34 139/55 12/27/16 05:14 59 15 35 12/27/16 05:00 58 15 139/55 100 Mechanical Ventilator 35 12/27/16 04:00 35 12/27/16 04:00 97.7 53 15 129/48 100 Mechanical Ventilator 35 12/27/16 04:00 62 12/27/16 03:06 64 15 35 12/27/16 03:00 61 15 136/57 99 Mechanical Ventilator 35 12/27/16 02:00 74 15 143/43 99 Mechanical Ventilator 35 12/27/16 01:00 61 15 118/39 100 Mechanical Ventilator 35 12/27/16 00:44 64 15 35 12/27/16 00:00 98.4 65 15 148/55 100 Mechanical Ventilator 35 12/27/16 00:00 35 12/27/16 00:00 64 12/26/16 23:00 69 15 146/44 100 Mechanical Ventilator 35 12/26/16 22:53 59 15 35 12/26/16 22:00 69 17 133/41 100 Mechanical Ventilator 35 12/26/16 21:00 69 16 138/47 100 Mechanical Ventilator 35 12/26/16 20:57 76 15 35 12/26/16 20:21 69 158/46 12/26/16 20:00 98.3 74 16 158/46 100 Mechanical Ventilator 35 12/26/16 20:00 35 12/26/16 20:00 65 12/26/16 19:00 64 15 143/43 99 Mechanical Ventilator 35 12/26/16 18:36 65 15 35 12/26/16 18:12 159/80 12/26/16 18:00 71 15 154/47 99 Mechanical Ventilator 35 12/26/16 17:25 85 16 35 12/26/16 17:00 71 20 138/43 99 Mechanical Ventilator 35 12/26/16 16:00 77 12/26/16 16:00 99.1 71 20 145/74 99 Mechanical Ventilator 35 12/26/16 16:00 35 12/26/16 15:22 97 23 35 12/26/16 15:00 69 20 135/63 99 Mechanical Ventilator 35 Intake and Output 12/26/16 12/27/16 19:00 07:00 Intake Total 393.8 ml 1291.6 ml Output Total 1115 ml 1065 ml Balance -721.2 ml 226.6 ml Free Water 290 ml IV Total 343.8 ml 691.6 ml Tube Feeding 40 ml 310 ml Other 10 ml Output Urine Total 1115 ml 1065 ml # Bowel Movements 3 2 Laboratory Tests 12/26/16 15:00: Activated Partial Thromboplast Time 79H 12/27/16 03:35: Activated Partial Thromboplast Time 76H, White Blood Count 9.2, Red Blood Count 2.66L, Hemoglobin 7.9L, Hematocrit 25.4L, Mean Corpuscular Volume 96, Mean Corpuscular Hemoglobin 29.6, Mean Corpuscular Hemoglobin Concent 31.0L, Red Cell Distribution Width 15.0H, Platelet Count 297, Mean Platelet Volume 7.5, Neutrophils (%) (Auto) , Lymphocytes (%) (Auto) , Monocytes (%) (Auto) , Eosinophils (%) (Auto) , Basophils (%) (Auto) , Prothrombin Time 11.6H, Prothromb Time International Ratio 1.1, Sodium Level 152H, Potassium Level 3.5, Chloride Level 108H, Carbon Dioxide Level 38H, Anion Gap 6, Blood Urea Nitrogen 35H, Creatinine 0.8, Estimat Glomerular Filtration Rate > 60, Glucose Level 137H , Calcium Level 8.6, Phosphorus Level 4.3, Magnesium Level 1.9, Total Bilirubin 1.4H, Direct Bilirubin 0.6H, Aspartate Amino Transf (AST/SGOT) 41H, Alanine Aminotransferase (ALT/SGPT) 18, Alkaline Phosphatase 92, Total Protein 6.3L, Albumin 1.7L, Globulin 4.6, Albumin/Globulin Ratio 0.3L, Amylase Level 221H, Lipase 120H Height (Feet): 5 Height (Inches): 1.00 Weight (Pounds): 145 General Appearance: no apparent distress Objective other PE not changed KAMINI SNOW Dec 27, 2016 14:58
--- NOTE | 2016-12-27 19:36 | Cardiology Progress Note ---
Assessment/Plan Assessment/Plan chf / fluid overload respiratory acidosis pancreattiis s/ bioprosthetic AV replacement 2014 s/p gyro mechanic mitral valve prosthesis on anticoagulation perm afib on anticoagulation with Coumadin coagulopathy now elevated due to med interaction adn disease process leukocytosis ARF intra abd hematomas brbpr bloody bm small amount again today good urine output in response to lasix ct performed 12/24/2016 showed multi hematomas in barber bd cavity back on heparin repeat cbc noted s/p 1 unit of prbc d/w rn bp has been fine repeat echo note lv fxn normal , as( high gradient despite recetn avr ), mvr , pulm htn will need more free water adn continue diuresis will given one dose of Diamox iv d/w family who wish pt to be transferred to [facility] but i have explained unlikely a candidate for lateral transfer and pt on the vent all over the phone with dtr with help pf urdu speaking staff now off tpn watch na with diurectic avoid ns in all ivpb may need albumin and Lasix combination if diuretic alone not effective Subjective Cardiovascular: Denies: chest pain, lightheadedness, palpitations Respiratory: Denies: shortness of breath Gastrointestinal/Abdominal: Denies: abdominal pain Genitourinary: Denies: burning Subjective on the vent , wants to go home Objective Last 24 Hour Vital Signs Date Time Temp Pulse Resp B/P Pulse Ox O2 Delivery O2 Flow Rate FiO2 12/27/16 19:00 74 17 144/45 100 Mechanical Ventilator 35 12/27/16 18:00 75 18 128/44 99 Mechanical Ventilator 35 12/27/16 17:34 139/52 12/27/16 17:27 81 18 35 12/27/16 17:00 78 18 139/52 98 Mechanical Ventilator 35 12/27/16 16:00 35 12/27/16 16:00 75 12/27/16 16:00 97.9 77 15 131/58 99 Mechanical Ventilator 35 12/27/16 15:15 74 15 35 12/27/16 15:00 66 15 123/49 98 Mechanical Ventilator 35 12/27/16 14:00 72 20 138/45 97 Mechanical Ventilator 35 12/27/16 13:00 76 16 128/55 98 Mechanical Ventilator 35 12/27/16 12:40 62 15 35 12/27/16 12:00 98.0 75 18 134/60 100 Mechanical Ventilator 35 12/27/16 12:00 70 12/27/16 12:00 125/53 12/27/16 11:00 75 17 125/53 99 Mechanical Ventilator 35 12/27/16 10:43 82 18 35 12/27/16 10:00 92 16 114/83 99 Mechanical Ventilator 35 12/27/16 09:45 35 12/27/16 09:15 35 12/27/16 09:11 97 12/27/16 09:11 84 26 35 12/27/16 09:00 97 20 150/54 95 Mechanical Ventilator 35 12/27/16 08:46 68 140/62 12/27/16 08:00 78 15 140/62 99 Mechanical Ventilator 35 12/27/16 08:00 72 12/27/16 08:00 35 12/27/16 07:02 72 19 35 12/27/16 07:00 98.5 76 16 151/60 99 Mechanical Ventilator 35 12/27/16 06:00 76 16 151/65 99 Mechanical Ventilator 35 12/27/16 05:34 139/55 12/27/16 05:14 59 15 35 12/27/16 05:00 58 15 139/55 100 Mechanical Ventilator 35 12/27/16 04:00 35 12/27/16 04:00 97.7 53 15 129/48 100 Mechanical Ventilator 35 12/27/16 04:00 62 12/27/16 03:06 64 15 35 12/27/16 03:00 61 15 136/57 99 Mechanical Ventilator 35 12/27/16 02:00 74 15 143/43 99 Mechanical Ventilator 35 12/27/16 01:00 61 15 118/39 100 Mechanical Ventilator 35 12/27/16 00:44 64 15 35 12/27/16 00:00 98.4 65 15 148/55 100 Mechanical Ventilator 35 12/27/16 00:00 35 12/27/16 00:00 64 12/26/16 23:00 69 15 146/44 100 Mechanical Ventilator 35 12/26/16 22:53 59 15 35 12/26/16 22:00 69 17 133/41 100 Mechanical Ventilator 35 12/26/16 21:00 69 16 138/47 100 Mechanical Ventilator 35 12/26/16 20:57 76 15 35 12/26/16 20:21 69 158/46 12/26/16 20:00 98.3 74 16 158/46 100 Mechanical Ventilator 35 12/26/16 20:00 35 12/26/16 20:00 65 General Appearance: no apparent distress, alert Neck: supple Cardiovascular: normal rate, regular rhythm Respiratory/Chest: lungs clear Abdomen: normal bowel sounds, non tender, soft Extremities: moderate edema Intake and Output 12/26/16 12/27/16 19:00 07:00 Intake Total 393.8 ml 1291.6 ml Output Total 1115 ml 1065 ml Balance -721.2 ml 226.6 ml Free Water 290 ml IV Total 343.8 ml 691.6 ml Tube Feeding 40 ml 310 ml Other 10 ml Output Urine Total 1115 ml 1065 ml # Bowel Movements 3 2 Laboratory Tests Test 12/27/16 03:35 White Blood Count 9.2 K/UL (4.8-10.8) Red Blood Count 2.66 M/UL (4.20-5.40) L Hemoglobin 7.9 G/DL (12.0-16.0) L Hematocrit 25.4 % (37.0-47.0) L Mean Corpuscular Volume 96 FL (80-99) Mean Corpuscular Hemoglobin 29.6 PG (27.0-31.0) Mean Corpuscular Hemoglobin Concent 31.0 G/DL (32.0-36.0) L Red Cell Distribution Width 15.0 % (11.6-14.8) H Platelet Count 297 K/UL (150-450) Mean Platelet Volume 7.5 FL (6.5-10.1) Neutrophils (%) (Auto) % (45.0-75.0) Lymphocytes (%) (Auto) % (20.0-45.0) Monocytes (%) (Auto) % (1.0-10.0) Eosinophils (%) (Auto) % (0.0-3.0) Basophils (%) (Auto) % (0.0-2.0) Prothrombin Time 11.6 SEC (9.30-11.50) H Prothromb Time International Ratio 1.1 (0.9-1.1) Activated Partial Thromboplast Time 76 SEC (23-33) H Sodium Level 152 mEQ/L (135-145) H Potassium Level 3.5 mEQ/L (3.4-4.9) Chloride Level 108 mEQ/L (98-107) H Carbon Dioxide Level 38 mEQ/L (20-30) H Anion Gap 6 (5-15) Blood Urea Nitrogen 35 mg/dL (7-23) H Creatinine 0.8 mg/dL (0.5-0.9) Estimat Glomerular Filtration Rate > 60 mL/min (>60) Glucose Level 137 mg/dL (74-106) H Calcium Level 8.6 mg/dL (8.6-10.2) Phosphorus Level 4.3 mg/dL (2.5-4.8) Magnesium Level 1.9 mg/dL (1.7-2.5) Total Bilirubin 1.4 mg/dL (0.0-1.2) H Direct Bilirubin 0.6 mg/dL (0.1-0.3) H Aspartate Amino Transf (AST/SGOT) 41 U/L (5-40) H Alanine Aminotransferase (ALT/SGPT) 18 U/L (3-33) Alkaline Phosphatase 92 U/L (35-104) Total Protein 6.3 g/dL (6.6-8.7) L Albumin 1.7 g/dL (3.5-5.2) L Globulin 4.6 g/dL Albumin/Globulin Ratio 0.3 (1.0-2.7) L Amylase Level 221 U/L (10-110) H Lipase 120 U/L (< 60) H ANNE RAM Dec 27, 2016 19:35
[2016-12-28] VITALS (24 sets, daily range): BP systolic 113–157; BP diastolic 38–66
[2016-12-28] MEDS: NovoLOG Insulin Flexpen SUBQ SCH ×5 (00:03→23:59)
[2016-12-28] MEDS: LORazepam Inj 2mg/ml 1ml IV PRN ×2 (03:09→12:07)
[2016-12-28] MEDS: Heparin 25,000u/D5W 500ml 500 ML IV SCH ×3 (04:51→22:28)
[2016-12-28 05:19] LABS: BASOPHILS % (AUTO) 0.6 % (0.0-2.0); EOSINOPHILS % (AUTO) 1.6 % (0.0-3.0); LYMPHOCYTES % (AUTO) 11.1 % (20.0-45.0); MEAN CORPUSCULAR HEMOGLOBIN 30.5 PG (27.0-31.0); MEAN CORPUSCULAR HGB CONC 31.9 G/DL (32.0-36.0); MEAN CORPUSCULAR VOLUME 96 FL (80-99); MONOCYTES % (AUTO) 8.5 % (1.0-10.0); NEUTROPHILS % (AUTO) 78.2 % (45.0-75.0); PLATELET COUNT 318 K/UL (150-450); RED BLOOD COUNT 3.02 M/UL (4.20-5.40); RED CELL DISTRIBUTION WIDTH 15.2 % (11.6-14.8)
[2016-12-28] MEDS: Nitroglycerin 2% oint pkt TOPIC SCH ×3 (05:37→17:30)
[2016-12-28 06:20] LABS: ALANINE AMINOTRANSFERASE 25 U/L (3-33); ALBUMIN/GLOBULIN RATIO 0.4 (1.0-2.7); ANION GAP 5 (5-15); ASPARTATE AMINO TRANSFERASE 52 U/L (5-40); CALCIUM 8.5 mg/dL (8.6-10.2); CARBON DIOXIDE 40 mEQ/L (20-30); CHLORIDE 106 mEQ/L (98-107); CREATININE 0.8 mg/dL (0.5-0.9); GLOMERULAR FILTRATION RATE > 60 mL/min (>60); HEMOLYSIS 3; POTASSIUM 3.5 mEQ/L (3.4-4.9); SODIUM 151 mEQ/L (135-145); TOTAL PROTEIN 6.7 g/dL (6.6-8.7)
[2016-12-28] MEDS ORDERED: Heparin 5000 units/ml inj IV ONE (06:30)
[2016-12-28] MEDS: Pantoprazole Inj IVP SCH (08:31)
[2016-12-28] MEDS: Sucralfate 1gm tab ORAL SCH ×4 (08:32→20:57)
[2016-12-28] MEDS: Anusol HC Supp RECTAL SCH ×2 (08:33→17:29)
[2016-12-28 09:11] LABS: BILIRUBIN,DIRECT 0.6 mg/dL (0.1-0.3)
--- NOTE | 2016-12-28 10:03 | Pulmonolgy Critical Care Note ---
Critical Care - Asmt/Plan Problems: (1) Respiratory failure requiring intubation (2) Sepsis (3) Pancreatitis (4) ATN (acute tubular necrosis) (5) Atrial fibrillation Respiratory: monitor respiratory rate, adjust FIO2, CXR Cardiac: continue to monitor HR/BP Renal: F/U I&O, other - tpn stopped Infectious Disease: check cultures, continue antibiotics Gastrointestinal: continue feedings/current rate Endocrine: monitor blood sugar Hematologic: monitor H/H Neurologic: PRN Ativan, PRN Morphine Prophylaxis: Heparin - drip Disposition: keep in ICU Notes Reviewed: cardio, 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 with: nurses, consultants, 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 - Objective Last 24 Hour Vital Signs Date Time Temp Pulse Resp B/P Pulse Ox O2 Delivery O2 Flow Rate FiO2 12/28/16 09:14 93 22 35 12/28/16 09:12 100 12/28/16 09:00 100 20 139/58 98 Mechanical Ventilator 35 12/28/16 08:32 90 154/49 12/28/16 08:00 97.9 96 20 154/49 98 Mechanical Ventilator 35 12/28/16 08:00 35 12/28/16 08:00 95 12/28/16 07:26 89 21 35 12/28/16 07:00 82 20 142/56 98 Mechanical Ventilator 35 12/28/16 06:00 94 21 153/53 97 Mechanical Ventilator 35 12/28/16 05:37 152/47 12/28/16 05:26 88 19 35 12/28/16 05:00 88 20 142/61 97 Mechanical Ventilator 35 12/28/16 04:00 83 12/28/16 04:00 35 12/28/16 04:00 98.3 90 21 152/47 98 Mechanical Ventilator 35 12/28/16 03:01 80 19 35 12/28/16 03:00 84 19 138/56 98 Mechanical Ventilator 35 12/28/16 02:00 80 20 146/49 98 Mechanical Ventilator 35 12/28/16 01:32 85 18 35 12/28/16 01:00 87 19 152/55 99 Mechanical Ventilator 35 12/28/16 00:00 80 12/28/16 00:00 98.3 85 19 151/60 99 Mechanical Ventilator 35 12/28/16 00:00 35 12/27/16 23:23 83 18 35 12/27/16 23:00 81 15 152/62 98 Mechanical Ventilator 35 12/27/16 22:00 82 19 152/44 97 Mechanical Ventilator 35 12/27/16 21:00 79 18 141/50 98 Mechanical Ventilator 35 12/27/16 21:00 35 12/27/16 20:59 75 16 35 12/27/16 20:52 70 135/45 12/27/16 20:00 98.3 73 15 142/46 99 Mechanical Ventilator 35 12/27/16 20:00 72 12/27/16 20:00 35 12/27/16 19:00 74 17 144/45 100 Mechanical Ventilator 35 12/27/16 18:00 75 18 128/44 99 Mechanical Ventilator 35 12/27/16 17:34 139/52 12/27/16 17:27 81 18 35 12/27/16 17:00 78 18 139/52 98 Mechanical Ventilator 35 12/27/16 16:00 35 12/27/16 16:00 75 12/27/16 16:00 97.9 77 15 131/58 99 Mechanical Ventilator 35 12/27/16 15:15 74 15 35 12/27/16 15:00 66 15 123/49 98 Mechanical Ventilator 35 12/27/16 14:00 72 20 138/45 97 Mechanical Ventilator 35 12/27/16 13:00 76 16 128/55 98 Mechanical Ventilator 35 12/27/16 12:40 62 15 35 12/27/16 12:00 98.0 75 18 134/60 100 Mechanical Ventilator 35 12/27/16 12:00 70 12/27/16 12:00 125/53 12/27/16 11:00 75 17 125/53 99 Mechanical Ventilator 35 12/27/16 10:43 82 18 35 12/27/16 10:00 92 16 114/83 99 Mechanical Ventilator 35 Status: awake Condition: critical HEENT: atraumatic Neck: full ROM Lungs: chest wall tender Heart: HR/BP stable, regular Abdomen: soft, non-tender, active bowel sounds Extremities: no C/C/E Accucheck: 85 Critical Care - Subjective ROS Limited/Unobtainable: No ICU Day: 11 Intubation Day: 11 Interval Events: tpn was stopped, started on NG tube feeding Condition: critical EKG Rhythm: Sinus Rhythm FI02: 35 Vent Support Breath Rate: 6 Vent Support Mode: CPAP Vent Tidal Volume: 500 Sputum Amount: Small PEEP: 5.0 PIP: 14 Tube Feeding Amount: 50 I&O: Intake and Output 12/27/16 12/28/16 19:00 07:00 Intake Total 962.3 ml 1101.939 ml Output Total 1170 ml 1875 ml Balance -207.7 ml -773.061 ml Free Water 100 ml 50 ml IV Total 302.3 ml 391.939 ml Tube Feeding 560 ml 600 ml Other 60 ml Output Urine Total 1170 ml 1875 ml # Bowel Movements 6 5 CXR: no cxr today, ET-Tube: 7.5 ET Position: 22 Labs: Laboratory Tests Test 12/28/16 03:50 White Blood Count 11.0 K/UL (4.8-10.8) H Red Blood Count 3.02 M/UL (4.20-5.40) L Hemoglobin 9.2 G/DL (12.0-16.0) L Hematocrit 28.9 % (37.0-47.0) L Mean Corpuscular Volume 96 FL (80-99) Mean Corpuscular Hemoglobin 30.5 PG (27.0-31.0) Mean Corpuscular Hemoglobin Concent 31.9 G/DL (32.0-36.0) L Red Cell Distribution Width 15.2 % (11.6-14.8) H Platelet Count 318 K/UL (150-450) Mean Platelet Volume 8.0 FL (6.5-10.1) Neutrophils (%) (Auto) 78.2 % (45.0-75.0) H Lymphocytes (%) (Auto) 11.1 % (20.0-45.0) L Monocytes (%) (Auto) 8.5 % (1.0-10.0) Eosinophils (%) (Auto) 1.6 % (0.0-3.0) Basophils (%) (Auto) 0.6 % (0.0-2.0) Activated Partial Thromboplast Time 62 SEC (23-33) H Sodium Level 151 mEQ/L (135-145) H Potassium Level 3.5 mEQ/L (3.4-4.9) Chloride Level 106 mEQ/L (98-107) Carbon Dioxide Level 40 mEQ/L (20-30) H Anion Gap 5 (5-15) Blood Urea Nitrogen 34 mg/dL (7-23) H Creatinine 0.8 mg/dL (0.5-0.9) Estimat Glomerular Filtration Rate > 60 mL/min (>60) Glucose Level 141 mg/dL (74-106) H Calcium Level 8.5 mg/dL (8.6-10.2) L Total Bilirubin 1.5 mg/dL (0.0-1.2) H Direct Bilirubin 0.6 mg/dL (0.1-0.3) H Aspartate Amino Transf (AST/SGOT) 52 U/L (5-40) H Alanine Aminotransferase (ALT/SGPT) 25 U/L (3-33) Alkaline Phosphatase 117 U/L (35-104) H Total Protein 6.7 g/dL (6.6-8.7) Albumin 2.1 g/dL (3.5-5.2) L Globulin 4.6 g/dL Albumin/Globulin Ratio 0.4 (1.0-2.7) L TONY BRIDGES Dec 28, 2016 10:03
[2016-12-28] MEDS ORDERED: Tubing IV Secondary IV ONE (10:24)
[2016-12-28] MEDS ORDERED: NS 275ml ONE (10:24)
[2016-12-28] MEDS ORDERED: Tubing Blood Filter IV ONE (10:24)
--- NOTE | 2016-12-28 11:16 | General Progress Note ---
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 on anticoagulation Pulmonary HTN HypoAlbuminemia Plan: weaning in process Per GI / Surgery Keep BP under control Avoid nephrotoxics K supplement as needed monitor renal parameters Subjective ROS Limited/Unobtainable: Yes Allergies: Coded Allergies: No Known Allergies (Unverified , 09/28/14) Objective Last 24 Hour Vital Signs Date Time Temp Pulse Resp B/P Pulse Ox O2 Delivery O2 Flow Rate FiO2 12/28/16 11:00 116 20 35 12/28/16 10:00 101 21 150/60 96 Mechanical Ventilator 35 12/28/16 09:14 93 22 35 12/28/16 09:12 100 12/28/16 09:00 100 20 139/58 98 Mechanical Ventilator 35 12/28/16 08:32 90 154/49 12/28/16 08:00 97.9 96 20 154/49 98 Mechanical Ventilator 35 12/28/16 08:00 35 12/28/16 08:00 95 12/28/16 07:26 89 21 35 12/28/16 07:00 82 20 142/56 98 Mechanical Ventilator 35 12/28/16 06:00 94 21 153/53 97 Mechanical Ventilator 35 12/28/16 05:37 152/47 12/28/16 05:26 88 19 35 12/28/16 05:00 88 20 142/61 97 Mechanical Ventilator 35 12/28/16 04:00 83 12/28/16 04:00 35 12/28/16 04:00 98.3 90 21 152/47 98 Mechanical Ventilator 35 12/28/16 03:01 80 19 35 12/28/16 03:00 84 19 138/56 98 Mechanical Ventilator 35 12/28/16 02:00 80 20 146/49 98 Mechanical Ventilator 35 12/28/16 01:32 85 18 35 12/28/16 01:00 87 19 152/55 99 Mechanical Ventilator 35 12/28/16 00:00 80 12/28/16 00:00 98.3 85 19 151/60 99 Mechanical Ventilator 35 12/28/16 00:00 35 12/27/16 23:23 83 18 35 12/27/16 23:00 81 15 152/62 98 Mechanical Ventilator 35 12/27/16 22:00 82 19 152/44 97 Mechanical Ventilator 35 12/27/16 21:00 79 18 141/50 98 Mechanical Ventilator 35 12/27/16 21:00 35 12/27/16 20:59 75 16 35 12/27/16 20:52 70 135/45 12/27/16 20:00 98.3 73 15 142/46 99 Mechanical Ventilator 35 12/27/16 20:00 72 12/27/16 20:00 35 12/27/16 19:00 74 17 144/45 100 Mechanical Ventilator 35 12/27/16 18:00 75 18 128/44 99 Mechanical Ventilator 35 12/27/16 17:34 139/52 12/27/16 17:27 81 18 35 12/27/16 17:00 78 18 139/52 98 Mechanical Ventilator 35 12/27/16 16:00 35 12/27/16 16:00 75 12/27/16 16:00 97.9 77 15 131/58 99 Mechanical Ventilator 35 12/27/16 15:15 74 15 35 12/27/16 15:00 66 15 123/49 98 Mechanical Ventilator 35 12/27/16 14:00 72 20 138/45 97 Mechanical Ventilator 35 12/27/16 13:00 76 16 128/55 98 Mechanical Ventilator 35 12/27/16 12:40 62 15 35 12/27/16 12:00 98.0 75 18 134/60 100 Mechanical Ventilator 35 12/27/16 12:00 70 12/27/16 12:00 125/53 Intake and Output 12/27/16 12/28/16 19:00 07:00 Intake Total 962.3 ml 1101.939 ml Output Total 1170 ml 1875 ml Balance -207.7 ml -773.061 ml Free Water 100 ml 50 ml IV Total 302.3 ml 391.939 ml Tube Feeding 560 ml 600 ml Other 60 ml Output Urine Total 1170 ml 1875 ml # Bowel Movements 6 5 Laboratory Tests 12/28/16 03:50: White Blood Count 11.0H, Red Blood Count 3.02L, Hemoglobin 9.2L, Hematocrit 28.9L, Mean Corpuscular Volume 96, Mean Corpuscular Hemoglobin 30.5, Mean Corpuscular Hemoglobin Concent 31.9L, Red Cell Distribution Width 15.2H, Platelet Count 318, Mean Platelet Volume 8.0, Neutrophils (%) (Auto) 78.2H, Lymphocytes (%) (Auto) 11.1L, Monocytes (%) (Auto) 8.5, Eosinophils (%) (Auto) 1.6, Basophils (%) (Auto) 0.6, Activated Partial Thromboplast Time 62H, Sodium Level 151H, Potassium Level 3.5, Chloride Level 106, Carbon Dioxide Level 40H, Anion Gap 5, Blood Urea Nitrogen 34H, Creatinine 0.8, Estimat Glomerular Filtration Rate > 60, Glucose Level 141H, Calcium Level 8.5L, Total Bilirubin 1.5H, Direct Bilirubin 0.6H, Aspartate Amino Transf (AST/SGOT) 52H, Alanine Aminotransferase (ALT/SGPT) 25, Alkaline Phosphatase 117H, Total Protein 6.7, Albumin 2.1L, Globulin 4.6, Albumin/Globulin Ratio 0.4L Height (Feet): 5 Height (Inches): 1.00 Weight (Pounds): 145 General Appearance: no apparent distress Objective other PE not changed KAMINI SNOW Dec 28, 2016 11:16
[2016-12-28 11:19] LABS: ABG BASE EXCESS 13.1; ABG PCO2 102.5 mmHg (35.0-45.0)
[2016-12-28 11:20] LABS: ABG ALLEN TEST POSITIVE
--- NOTE | 2016-12-28 11:35 | GI Progress Note ---
Assessment/Plan Problems: (1) Pancreatitis ICD Codes: K85.9 - Acute pancreatitis, unspecified SNOMED: 14008222 Qualifiers: Qualified Codes: K85.10 - Biliary acute pancreatitis without necrosis or infection (2) Abdominal pain ICD Codes: R10.9 - Unspecified abdominal pain SNOMED: 15196534, 469767990 (3) Iron deficiency anemia ICD Codes: D50.9 - Iron deficiency anemia, unspecified SNOMED: 42085522 (4) Colon polyp ICD Codes: K63.5 - Polyp of colon SNOMED: 14047194 Status: unchanged Status Narrative Discussed with Dr. Gipson. Assessment/Plan Assessment Pancreatitis - resolving, but abdomen still very distended cholelithiasis, no e/o choledocholithiasis Leukocytosis improving Respiratory failure Azotemia improving Anemia colon polyp fu CT >> New finding of a 6 x 4.4 x 4.9 cm masslike lesion in the left paracolic gutter, which compresses and splays but does not appear to obstruct an adjacent small bowel loop, see full report. Assessment/Plan cont NGTFs per dietary abx monitor H&H, transfuse prn ppi + cararate repeat amylase/lipase follow labs supportive care surgical planning Subjective Subjective limited Objective Last 24 Hour Vital Signs Date Time Temp Pulse Resp B/P Pulse Ox O2 Delivery O2 Flow Rate FiO2 12/28/16 11:00 95 23 155/51 96 Mechanical Ventilator 35 12/28/16 11:00 116 20 35 12/28/16 10:00 101 21 150/60 96 Mechanical Ventilator 35 12/28/16 09:14 93 22 35 12/28/16 09:12 100 12/28/16 09:00 100 20 139/58 98 Mechanical Ventilator 35 12/28/16 08:32 90 154/49 12/28/16 08:00 97.9 96 20 154/49 98 Mechanical Ventilator 35 12/28/16 08:00 35 12/28/16 08:00 95 12/28/16 07:26 89 21 35 12/28/16 07:00 82 20 142/56 98 Mechanical Ventilator 35 12/28/16 06:00 94 21 153/53 97 Mechanical Ventilator 35 12/28/16 05:37 152/47 12/28/16 05:26 88 19 35 12/28/16 05:00 88 20 142/61 97 Mechanical Ventilator 35 12/28/16 04:00 83 12/28/16 04:00 35 12/28/16 04:00 98.3 90 21 152/47 98 Mechanical Ventilator 35 12/28/16 03:01 80 19 35 12/28/16 03:00 84 19 138/56 98 Mechanical Ventilator 35 12/28/16 02:00 80 20 146/49 98 Mechanical Ventilator 35 12/28/16 01:32 85 18 35 12/28/16 01:00 87 19 152/55 99 Mechanical Ventilator 35 12/28/16 00:00 80 12/28/16 00:00 98.3 85 19 151/60 99 Mechanical Ventilator 35 12/28/16 00:00 35 12/27/16 23:23 83 18 35 12/27/16 23:00 81 15 152/62 98 Mechanical Ventilator 35 12/27/16 22:00 82 19 152/44 97 Mechanical Ventilator 35 12/27/16 21:00 79 18 141/50 98 Mechanical Ventilator 35 12/27/16 21:00 35 12/27/16 20:59 75 16 35 12/27/16 20:52 70 135/45 12/27/16 20:00 98.3 73 15 142/46 99 Mechanical Ventilator 35 12/27/16 20:00 72 12/27/16 20:00 35 12/27/16 19:00 74 17 144/45 100 Mechanical Ventilator 35 12/27/16 18:00 75 18 128/44 99 Mechanical Ventilator 35 12/27/16 17:34 139/52 12/27/16 17:27 81 18 35 12/27/16 17:00 78 18 139/52 98 Mechanical Ventilator 35 12/27/16 16:00 35 12/27/16 16:00 75 12/27/16 16:00 97.9 77 15 131/58 99 Mechanical Ventilator 35 12/27/16 15:15 74 15 35 12/27/16 15:00 66 15 123/49 98 Mechanical Ventilator 35 12/27/16 14:00 72 20 138/45 97 Mechanical Ventilator 35 12/27/16 13:00 76 16 128/55 98 Mechanical Ventilator 35 12/27/16 12:40 62 15 35 12/27/16 12:00 98.0 75 18 134/60 100 Mechanical Ventilator 35 12/27/16 12:00 70 12/27/16 12:00 125/53 Intake and Output 12/27/16 12/28/16 19:00 07:00 Intake Total 962.3 ml 1101.939 ml Output Total 1170 ml 1875 ml Balance -207.7 ml -773.061 ml Free Water 100 ml 50 ml IV Total 302.3 ml 391.939 ml Tube Feeding 560 ml 600 ml Other 60 ml Output Urine Total 1170 ml 1875 ml # Bowel Movements 6 5 Laboratory Tests Test 12/28/16 03:50 12/28/16 10:35 White Blood Count 11.0 K/UL (4.8-10.8) H Red Blood Count 3.02 M/UL (4.20-5.40) L Hemoglobin 9.2 G/DL (12.0-16.0) L Hematocrit 28.9 % (37.0-47.0) L Mean Corpuscular Volume 96 FL (80-99) Mean Corpuscular Hemoglobin 30.5 PG (27.0-31.0) Mean Corpuscular Hemoglobin Concent 31.9 G/DL (32.0-36.0) L Red Cell Distribution Width 15.2 % (11.6-14.8) H Platelet Count 318 K/UL (150-450) Mean Platelet Volume 8.0 FL (6.5-10.1) Neutrophils (%) (Auto) 78.2 % (45.0-75.0) H Lymphocytes (%) (Auto) 11.1 % (20.0-45.0) L Monocytes (%) (Auto) 8.5 % (1.0-10.0) Eosinophils (%) (Auto) 1.6 % (0.0-3.0) Basophils (%) (Auto) 0.6 % (0.0-2.0) Activated Partial Thromboplast Time 62 SEC (23-33) H Sodium Level 151 mEQ/L (135-145) H Potassium Level 3.5 mEQ/L (3.4-4.9) Chloride Level 106 mEQ/L (98-107) Carbon Dioxide Level 40 mEQ/L (20-30) H Anion Gap 5 (5-15) Blood Urea Nitrogen 34 mg/dL (7-23) H Creatinine 0.8 mg/dL (0.5-0.9) Estimat Glomerular Filtration Rate > 60 mL/min (>60) Glucose Level 141 mg/dL (74-106) H Calcium Level 8.5 mg/dL (8.6-10.2) L Total Bilirubin 1.5 mg/dL (0.0-1.2) H Direct Bilirubin 0.6 mg/dL (0.1-0.3) H Aspartate Amino Transf (AST/SGOT) 52 U/L (5-40) H Alanine Aminotransferase (ALT/SGPT) 25 U/L (3-33) Alkaline Phosphatase 117 U/L (35-104) H Total Protein 6.7 g/dL (6.6-8.7) Albumin 2.1 g/dL (3.5-5.2) L Globulin 4.6 g/dL Albumin/Globulin Ratio 0.4 (1.0-2.7) L Arterial Blood pH 7.240 (7.350-7.450) Arterial Blood Partial Pressure CO2 102.5 mmHg (35.0-45.0) *H Arterial Blood Partial Pressure O2 60.8 mmHg (75.0-100.0) L Arterial Blood HCO3 43.7 mmol/L (22.0-26.0) H Arterial Blood Oxygen Saturation 85.1 % (92.0-98.0) L Arterial Blood Base Excess 13.1 Ok Test Positive Height (Feet): 5 Height (Inches): 1.00 Weight (Pounds): 145 General Appearance: no apparent distress Cardiovascular: normal rate Respiratory/Chest: other - mech vent Abdominal Exam: other - NGT Objective Service Date: 12/11/16 Procedure: MRI Abdomen no Contrast Indication: Abdominal pain, possible pancreatitis Findings: Multiple calcifications are seen within the gallbladder. There is a ductal structure cephalad to the gallbladder which contains a filling defect. This is probably the cystic duct, but could be an extrahepatic bile duct, and it is uncertain which of these is. The gallbladder wall is not thickened. The extrahepatic bile ducts are ectatic, with the common bile duct measuring up to 9 mm diameter , but no downstream filling defects are demonstrated. The common bile duct terminates abruptly at the level of the ampulla. The pancreatic duct is mildly ectatic, measuring 3-4 mm in diameter. No intraluminal filling defects are demonstrated. A 7 mm fluid signal lesion is seen within the uncinate process of the pancreas. This may actually be a duodenal diverticulum which is seen on the recent CT scan. There is apparent swelling of the pancreas and considerable free intraperitoneal fluid. No free intraperitoneal fluid presumably increased from the prior CT scan. There are dilated small bowel loops, likely indicating ileus. The liver is unremarkable. The adrenals and kidneys are unremarkable. There are bilateral small pleural effusions. The spleen is unremarkable. The heart is enlarged Impression: Cholelithiasis. There is also a calculus within the duct adjacent to the gallbladder which is probably the cystic duct but could be an extrahepatic bile duct. Extrahepatic and central intrahepatic biliary ductal mild dilatation. No definite downstream calculus or pancreatic head mass to account for this, however. Prominence and edema of the pancreas, better visualized on prior CT scan, consistent with acute pancreatitis, also previously described Ascites fluid, increased from the prior CT scan, likely secondary to the acute pancreatitis Dilated small bowel loops, new since prior CT study. Suspect representing ileus related to the pancreatitis Bilateral small pleural effusions Small cystic lesion within the as a process. Suspect that this is actually the duodenal diverticulum described on recent CT scan, but could represent a tiny pseudocyst or intraductal papillary mucinous neoplasm. Cardiomegaly Lulu Dominguez N.P. Dec 28, 2016 11:34
--- NOTE | 2016-12-28 13:43 | General Surgery Progress Note ---
General Surgery-Progress Note Subjective Additional Comments patient seen and examined at bedside. no acute events. no complaints. responsive. doing well. Objective Last 24 Hour Vital Signs Date Time Temp Pulse Resp B/P Pulse Ox O2 Delivery O2 Flow Rate FiO2 12/28/16 13:10 89 25 35 12/28/16 12:07 129/48 12/28/16 12:00 98.0 88 20 129/48 97 Mechanical Ventilator 35 12/28/16 12:00 35 12/28/16 12:00 88 12/28/16 11:00 95 23 155/51 96 Mechanical Ventilator 35 12/28/16 11:00 116 20 35 12/28/16 11:00 35 12/28/16 10:00 101 21 150/60 96 Mechanical Ventilator 35 12/28/16 09:30 35 12/28/16 09:14 93 22 35 12/28/16 09:12 100 12/28/16 09:00 100 20 139/58 98 Mechanical Ventilator 35 12/28/16 08:32 90 154/49 12/28/16 08:00 97.9 96 20 154/49 98 Mechanical Ventilator 35 12/28/16 08:00 35 12/28/16 08:00 95 12/28/16 07:26 89 21 35 12/28/16 07:00 82 20 142/56 98 Mechanical Ventilator 35 12/28/16 06:00 94 21 153/53 97 Mechanical Ventilator 35 12/28/16 05:37 152/47 12/28/16 05:26 88 19 35 12/28/16 05:00 88 20 142/61 97 Mechanical Ventilator 35 12/28/16 04:00 83 12/28/16 04:00 35 12/28/16 04:00 98.3 90 21 152/47 98 Mechanical Ventilator 35 12/28/16 03:01 80 19 35 12/28/16 03:00 84 19 138/56 98 Mechanical Ventilator 35 12/28/16 02:00 80 20 146/49 98 Mechanical Ventilator 35 12/28/16 01:32 85 18 35 12/28/16 01:00 87 19 152/55 99 Mechanical Ventilator 35 12/28/16 00:00 80 12/28/16 00:00 98.3 85 19 151/60 99 Mechanical Ventilator 35 12/28/16 00:00 35 12/27/16 23:23 83 18 35 12/27/16 23:00 81 15 152/62 98 Mechanical Ventilator 35 12/27/16 22:00 82 19 152/44 97 Mechanical Ventilator 35 12/27/16 21:00 79 18 141/50 98 Mechanical Ventilator 35 12/27/16 21:00 35 12/27/16 20:59 75 16 35 12/27/16 20:52 70 135/45 12/27/16 20:00 98.3 73 15 142/46 99 Mechanical Ventilator 35 12/27/16 20:00 72 12/27/16 20:00 35 12/27/16 19:00 74 17 144/45 100 Mechanical Ventilator 35 12/27/16 18:00 75 18 128/44 99 Mechanical Ventilator 35 12/27/16 17:34 139/52 12/27/16 17:27 81 18 35 12/27/16 17:00 78 18 139/52 98 Mechanical Ventilator 35 12/27/16 16:00 35 12/27/16 16:00 75 12/27/16 16:00 97.9 77 15 131/58 99 Mechanical Ventilator 35 12/27/16 15:15 74 15 35 12/27/16 15:00 66 15 123/49 98 Mechanical Ventilator 35 12/27/16 14:00 72 20 138/45 97 Mechanical Ventilator 35 I&O Intake and Output 12/27/16 12/28/16 19:00 07:00 Intake Total 962.3 ml 1101.939 ml Output Total 1170 ml 1875 ml Balance -207.7 ml -773.061 ml Free Water 100 ml 50 ml IV Total 302.3 ml 391.939 ml Tube Feeding 560 ml 600 ml Other 60 ml Output Urine Total 1170 ml 1875 ml # Bowel Movements 6 5 Cardiovascular: RSR Respiratory: clear Abdomen: soft, distended, non-tender Extremities: edema Laboratory Tests Test 12/28/16 03:50 12/28/16 10:35 12/28/16 11:50 White Blood Count 11.0 K/UL (4.8-10.8) H Red Blood Count 3.02 M/UL (4.20-5.40) L Hemoglobin 9.2 G/DL (12.0-16.0) L Hematocrit 28.9 % (37.0-47.0) L Mean Corpuscular Volume 96 FL (80-99) Mean Corpuscular Hemoglobin 30.5 PG (27.0-31.0) Mean Corpuscular Hemoglobin Concent 31.9 G/DL (32.0-36.0) L Red Cell Distribution Width 15.2 % (11.6-14.8) H Platelet Count 318 K/UL (150-450) Mean Platelet Volume 8.0 FL (6.5-10.1) Neutrophils (%) (Auto) 78.2 % (45.0-75.0) H Lymphocytes (%) (Auto) 11.1 % (20.0-45.0) L Monocytes (%) (Auto) 8.5 % (1.0-10.0) Eosinophils (%) (Auto) 1.6 % (0.0-3.0) Basophils (%) (Auto) 0.6 % (0.0-2.0) Activated Partial Thromboplast Time 62 SEC (23-33) H 76 SEC (23-33) H Sodium Level 151 mEQ/L (135-145) H Potassium Level 3.5 mEQ/L (3.4-4.9) Chloride Level 106 mEQ/L (98-107) Carbon Dioxide Level 40 mEQ/L (20-30) H Anion Gap 5 (5-15) Blood Urea Nitrogen 34 mg/dL (7-23) H Creatinine 0.8 mg/dL (0.5-0.9) Estimat Glomerular Filtration Rate > 60 mL/min (>60) Glucose Level 141 mg/dL (74-106) H Calcium Level 8.5 mg/dL (8.6-10.2) L Total Bilirubin 1.5 mg/dL (0.0-1.2) H Direct Bilirubin 0.6 mg/dL (0.1-0.3) H Aspartate Amino Transf (AST/SGOT) 52 U/L (5-40) H Alanine Aminotransferase (ALT/SGPT) 25 U/L (3-33) Alkaline Phosphatase 117 U/L (35-104) H Total Protein 6.7 g/dL (6.6-8.7) Albumin 2.1 g/dL (3.5-5.2) L Globulin 4.6 g/dL Albumin/Globulin Ratio 0.4 (1.0-2.7) L Arterial Blood pH 7.240 (7.350-7.450) Arterial Blood Partial Pressure CO2 102.5 mmHg (35.0-45.0) *H Arterial Blood Partial Pressure O2 60.8 mmHg (75.0-100.0) L Arterial Blood HCO3 43.7 mmol/L (22.0-26.0) H Arterial Blood Oxygen Saturation 85.1 % (92.0-98.0) L Arterial Blood Base Excess 13.1 Ok Test Positive Plan Problems: (1) Phlegmon of pancreas (2) Pancreatitis Assessment & Plan: 71 F acute severe pancreatitis. Afebrile, HD stable, still on vent with difficulty weaning, leukocytosis 11k, abdominal exam stable. No acute surgical intervention planned. Cont with medical management of acute sever pancreatitis. If unable to wean from vent soon can consider trach Rodrigo Andino Dec 28, 2016 13:43
--- NOTE | 2016-12-28 19:36 | Infectious Diseases Prog Note ---
Assessment/Plan Assessment/Plan ASSESSMENT: Pancreatitis recurrent CT: Findings compatible with marked worsening of acute pancreatitis MRCP : Cholelithiasis. There is also a calculus within the duct adjacent to the gallbladder Pancreatic Enzymes improving CT of Abd : reviewed Leukocytosis ( SIRS ) improving SP cholelithiasis : US of liver : Incidental finding of cholelithiasis and mild gallbladder wall thickening positive sonographic Diaz's sign LFT : Nl UTI : Mandy SCx : Mandy ( colonizer ) VDRF: Cxray : Increase in bilateral congestive changes with persistent small right , probable new left pleural effusions ARF SP aortic stenosis mitral stenosis status post mitral valve replacement AFib Pulmonary hypertension PLAN: - DC Diflucan d# 10 and monitor pt off of Ab Rx ( 12/24 SP DC Merrem d# / ) - monitor CBC, temperatures, - monitor LFT - GI f/u - Sx is following for possible Cholecystectomy later - VDRF - possible trach Saturday Subjective Allergies: Coded Allergies: No Known Allergies (Unverified , 09/28/14) Subjective on Vent Objective Vital Signs Last 24 Hour Vital Signs Date Time Temp Pulse Resp B/P Pulse Ox O2 Delivery O2 Flow Rate FiO2 12/28/16 19:04 93 22 35 12/28/16 19:00 82 20 142/38 97 Mechanical Ventilator 35 12/28/16 18:00 79 18 146/62 97 Mechanical Ventilator 35 12/28/16 17:30 120/50 12/28/16 17:13 90 21 35 12/28/16 17:00 82 22 120/50 98 Mechanical Ventilator 35 12/28/16 16:00 75 12/28/16 16:00 35 12/28/16 16:00 97.9 86 19 123/48 97 Mechanical Ventilator 35 12/28/16 15:00 94 15 35 12/28/16 15:00 81 21 134/47 98 Mechanical Ventilator 35 12/28/16 14:00 80 20 113/42 98 Mechanical Ventilator 35 12/28/16 13:10 89 25 35 12/28/16 13:00 92 22 133/61 98 Mechanical Ventilator 35 12/28/16 12:07 129/48 12/28/16 12:00 98.0 88 20 129/48 97 Mechanical Ventilator 35 12/28/16 12:00 35 12/28/16 12:00 88 12/28/16 11:00 95 23 155/51 96 Mechanical Ventilator 35 12/28/16 11:00 116 20 35 12/28/16 11:00 35 12/28/16 10:00 101 21 150/60 96 Mechanical Ventilator 35 12/28/16 09:30 35 12/28/16 09:14 93 22 35 12/28/16 09:12 100 12/28/16 09:00 100 20 139/58 98 Mechanical Ventilator 35 12/28/16 08:32 90 154/49 12/28/16 08:00 97.9 96 20 154/49 98 Mechanical Ventilator 35 12/28/16 08:00 35 12/28/16 08:00 95 12/28/16 07:26 89 21 35 12/28/16 07:00 82 20 142/56 98 Mechanical Ventilator 35 12/28/16 06:00 94 21 153/53 97 Mechanical Ventilator 35 12/28/16 05:37 152/47 12/28/16 05:26 88 19 35 12/28/16 05:00 88 20 142/61 97 Mechanical Ventilator 35 12/28/16 04:00 83 12/28/16 04:00 35 12/28/16 04:00 98.3 90 21 152/47 98 Mechanical Ventilator 35 12/28/16 03:01 80 19 35 12/28/16 03:00 84 19 138/56 98 Mechanical Ventilator 35 12/28/16 02:00 80 20 146/49 98 Mechanical Ventilator 35 12/28/16 01:32 85 18 35 12/28/16 01:00 87 19 152/55 99 Mechanical Ventilator 35 12/28/16 00:00 80 12/28/16 00:00 98.3 85 19 151/60 99 Mechanical Ventilator 35 12/28/16 00:00 35 12/27/16 23:23 83 18 35 12/27/16 23:00 81 15 152/62 98 Mechanical Ventilator 35 12/27/16 22:00 82 19 152/44 97 Mechanical Ventilator 35 12/27/16 21:00 79 18 141/50 98 Mechanical Ventilator 35 12/27/16 21:00 35 12/27/16 20:59 75 16 35 12/27/16 20:52 70 135/45 12/27/16 20:00 98.3 73 15 142/46 99 Mechanical Ventilator 35 12/27/16 20:00 72 12/27/16 20:00 35 Height (Feet): 5 Height (Inches): 1.00 Weight (Pounds): 145 HEENT: atraumatic Respiratory/Chest: lungs clear Abdomen: no mass Laboratory Tests Test 12/28/16 03:50 12/28/16 10:35 12/28/16 11:50 White Blood Count 11.0 K/UL (4.8-10.8) H Red Blood Count 3.02 M/UL (4.20-5.40) L Hemoglobin 9.2 G/DL (12.0-16.0) L Hematocrit 28.9 % (37.0-47.0) L Mean Corpuscular Volume 96 FL (80-99) Mean Corpuscular Hemoglobin 30.5 PG (27.0-31.0) Mean Corpuscular Hemoglobin Concent 31.9 G/DL (32.0-36.0) L Red Cell Distribution Width 15.2 % (11.6-14.8) H Platelet Count 318 K/UL (150-450) Mean Platelet Volume 8.0 FL (6.5-10.1) Neutrophils (%) (Auto) 78.2 % (45.0-75.0) H Lymphocytes (%) (Auto) 11.1 % (20.0-45.0) L Monocytes (%) (Auto) 8.5 % (1.0-10.0) Eosinophils (%) (Auto) 1.6 % (0.0-3.0) Basophils (%) (Auto) 0.6 % (0.0-2.0) Activated Partial Thromboplast Time 62 SEC (23-33) H 76 SEC (23-33) H Sodium Level 151 mEQ/L (135-145) H Potassium Level 3.5 mEQ/L (3.4-4.9) Chloride Level 106 mEQ/L (98-107) Carbon Dioxide Level 40 mEQ/L (20-30) H Anion Gap 5 (5-15) Blood Urea Nitrogen 34 mg/dL (7-23) H Creatinine 0.8 mg/dL (0.5-0.9) Estimat Glomerular Filtration Rate > 60 mL/min (>60) Glucose Level 141 mg/dL (74-106) H Calcium Level 8.5 mg/dL (8.6-10.2) L Total Bilirubin 1.5 mg/dL (0.0-1.2) H Direct Bilirubin 0.6 mg/dL (0.1-0.3) H Aspartate Amino Transf (AST/SGOT) 52 U/L (5-40) H Alanine Aminotransferase (ALT/SGPT) 25 U/L (3-33) Alkaline Phosphatase 117 U/L (35-104) H Total Protein 6.7 g/dL (6.6-8.7) Albumin 2.1 g/dL (3.5-5.2) L Globulin 4.6 g/dL Albumin/Globulin Ratio 0.4 (1.0-2.7) L Arterial Blood pH 7.240 (7.350-7.450) Arterial Blood Partial Pressure CO2 102.5 mmHg (35.0-45.0) *H Arterial Blood Partial Pressure O2 60.8 mmHg (75.0-100.0) L Arterial Blood HCO3 43.7 mmol/L (22.0-26.0) H Arterial Blood Oxygen Saturation 85.1 % (92.0-98.0) L Arterial Blood Base Excess 13.1 Ok Test Positive Current Medications Medications (Trade) Dose Ordered Sig/Lisbeth Route PRN Reason Start Time Stop Time Status Last Admin Dose Admin Acetaminophen (Tylenol) 650 mg Q4H PRN ORAL fever 12/17/16 08:00 01/16/17 07:59 12/25/16 17:41 Amlodipine Besylate (Norvasc) 5 mg Q12HR ORAL 12/22/16 21:00 01/21/17 20:59 12/28/16 08:32 Clonidine HCl (Catapres) 0.1 mg Q4H PRN ORAL SBP >160 12/22/16 10:45 01/21/17 10:44 12/26/16 08:25 Dextrose (Dextrose 50%) STAT PRN IV Hypoglycemia 12/17/16 07:30 01/16/17 07:29 Fluconazole/ Sodium Chloride (Diflucan 200mg/ 100ml Premix) 100 ml @ 100 mls/hr Q24H IV 12/19/16 23:00 12/28/16 23:59 12/27/16 22:44 Furosemide (Lasix) 40 mg Q8H IV 12/27/16 01:00 01/26/17 00:59 12/28/16 17:29 Heparin Sodium/ Dextrose (Heparin) 500 ml @ 28.939 mls/ hr adjust per protocol IV 12/28/16 05:50 01/24/17 17:44 12/28/16 06:05 Hydrocortisone (Anusol HC) 1 supp TWICE A DAY RECTAL 12/24/16 18:00 01/23/17 17:59 12/28/16 17:29 Insulin Aspart (NovoLOG) No Dose Q6HR SUBQ 12/17/16 12:00 01/16/17 11:59 12/28/16 17:31 Lorazepam (Ativan 2mg/ml 1ml) 1 mg Q4H PRN IV For Anxiety 12/23/16 08:45 12/30/16 08:44 12/28/16 12:07 Morphine Sulfate 4 mg 4 mg Q4H PRN IVP Severe Pain (Pain Scale 7-10) 12/27/16 12:15 01/03/17 12:14 12/27/16 20:52 Nitroglycerin (Nitro-Bid) 1 inch TID@0600,1200,1800 TOPIC 12/22/16 06:00 01/21/17 05:59 12/28/16 17:30 Nitroglycerin (Ntg) 0.4 mg Q5M X 3 DOSES PRN SL Prn Chest Pain 12/17/16 07:30 01/16/17 07:29 Ondansetron HCl (Zofran) 4 mg Q6H PRN IVP Nausea & Vomiting 12/17/16 07:30 01/16/17 07:29 Pantoprazole 40 mg 40 mg DAILY IVP 12/20/16 09:00 01/19/17 08:59 12/28/16 08:31 Polyethylene Glycol (Miralax) 17 gm HSPRN PRN ORAL Constipation 12/17/16 07:30 01/16/17 07:29 Sucralfate (Carafate) 1 gm FOUR TIMES A DAY ORAL 12/17/16 09:00 01/16/17 08:59 12/28/16 17:29 OSCAR ANDERSON M.D. Dec 28, 2016 19:36
--- NOTE | 2016-12-28 20:14 | Cardiology Progress Note ---
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 on anticoagulation perm afib on anticoagulation with Coumadin coagulopathy now elevated due to med interaction adn disease process leukocytosis ARF intra abd hematomas brbpr bloody bm small amount again today but hgb is stabel good urine output in response to lasix ct performed 12/24/2016 showed multi hematomas in barber bd cavity on heparin repeat cbc daily d/w rn bp has been fine repeat echo note lv fxn normal , as( high gradient despite recetn avr ), mvr , pulm htn will need more free water 100 qid adn continue diuresis to allow natureisi will given one dose of Diamox iv wtwo doses Subjective Cardiovascular: Denies: chest pain, lightheadedness, palpitations Respiratory: Reports: SOB with excertion Gastrointestinal/Abdominal: Denies: abdominal pain Genitourinary: Denies: burning Subjective on the vent , Objective Last 24 Hour Vital Signs Date Time Temp Pulse Resp B/P Pulse Ox O2 Delivery O2 Flow Rate FiO2 12/28/16 19:04 93 22 35 12/28/16 19:00 82 20 142/38 97 Mechanical Ventilator 35 12/28/16 18:00 79 18 146/62 97 Mechanical Ventilator 35 12/28/16 17:30 120/50 12/28/16 17:13 90 21 35 12/28/16 17:00 82 22 120/50 98 Mechanical Ventilator 35 12/28/16 16:00 75 12/28/16 16:00 35 12/28/16 16:00 97.9 86 19 123/48 97 Mechanical Ventilator 35 12/28/16 15:00 94 15 35 12/28/16 15:00 81 21 134/47 98 Mechanical Ventilator 35 12/28/16 14:00 80 20 113/42 98 Mechanical Ventilator 35 12/28/16 13:10 89 25 35 12/28/16 13:00 92 22 133/61 98 Mechanical Ventilator 35 12/28/16 12:07 129/48 12/28/16 12:00 98.0 88 20 129/48 97 Mechanical Ventilator 35 12/28/16 12:00 35 12/28/16 12:00 88 12/28/16 11:00 95 23 155/51 96 Mechanical Ventilator 35 12/28/16 11:00 116 20 35 12/28/16 11:00 35 12/28/16 10:00 101 21 150/60 96 Mechanical Ventilator 35 12/28/16 09:30 35 12/28/16 09:14 93 22 35 12/28/16 09:12 100 12/28/16 09:00 100 20 139/58 98 Mechanical Ventilator 35 12/28/16 08:32 90 154/49 12/28/16 08:00 97.9 96 20 154/49 98 Mechanical Ventilator 35 12/28/16 08:00 35 12/28/16 08:00 95 12/28/16 07:26 89 21 35 12/28/16 07:00 82 20 142/56 98 Mechanical Ventilator 35 12/28/16 06:00 94 21 153/53 97 Mechanical Ventilator 35 12/28/16 05:37 152/47 12/28/16 05:26 88 19 35 12/28/16 05:00 88 20 142/61 97 Mechanical Ventilator 35 12/28/16 04:00 83 12/28/16 04:00 35 12/28/16 04:00 98.3 90 21 152/47 98 Mechanical Ventilator 35 12/28/16 03:01 80 19 35 12/28/16 03:00 84 19 138/56 98 Mechanical Ventilator 35 12/28/16 02:00 80 20 146/49 98 Mechanical Ventilator 35 12/28/16 01:32 85 18 35 12/28/16 01:00 87 19 152/55 99 Mechanical Ventilator 35 12/28/16 00:00 80 12/28/16 00:00 98.3 85 19 151/60 99 Mechanical Ventilator 35 12/28/16 00:00 35 12/27/16 23:23 83 18 35 12/27/16 23:00 81 15 152/62 98 Mechanical Ventilator 35 12/27/16 22:00 82 19 152/44 97 Mechanical Ventilator 35 12/27/16 21:00 79 18 141/50 98 Mechanical Ventilator 35 12/27/16 21:00 35 12/27/16 20:59 75 16 35 12/27/16 20:52 70 135/45 General Appearance: no apparent distress, alert, on vent Neck: supple Cardiovascular: normal rate, irregularly irregular Respiratory/Chest: decreased breath sounds - left base Abdomen: normal bowel sounds, non tender, soft Extremities: no swelling Intake and Output 12/27/16 12/28/16 19:00 07:00 Intake Total 1212.3 ml 1101.939 ml Output Total 1170 ml 1875 ml Balance 42.3 ml -773.061 ml Free Water 100 ml 50 ml IV Total 302.3 ml 391.939 ml Tube Feeding 560 ml 600 ml Blood Product 250 ml Other 60 ml Output Urine Total 1170 ml 1875 ml # Bowel Movements 6 5 Laboratory Tests Test 12/28/16 03:50 12/28/16 10:35 12/28/16 11:50 White Blood Count 11.0 K/UL (4.8-10.8) H Red Blood Count 3.02 M/UL (4.20-5.40) L Hemoglobin 9.2 G/DL (12.0-16.0) L Hematocrit 28.9 % (37.0-47.0) L Mean Corpuscular Volume 96 FL (80-99) Mean Corpuscular Hemoglobin 30.5 PG (27.0-31.0) Mean Corpuscular Hemoglobin Concent 31.9 G/DL (32.0-36.0) L Red Cell Distribution Width 15.2 % (11.6-14.8) H Platelet Count 318 K/UL (150-450) Mean Platelet Volume 8.0 FL (6.5-10.1) Neutrophils (%) (Auto) 78.2 % (45.0-75.0) H Lymphocytes (%) (Auto) 11.1 % (20.0-45.0) L Monocytes (%) (Auto) 8.5 % (1.0-10.0) Eosinophils (%) (Auto) 1.6 % (0.0-3.0) Basophils (%) (Auto) 0.6 % (0.0-2.0) Activated Partial Thromboplast Time 62 SEC (23-33) H 76 SEC (23-33) H Sodium Level 151 mEQ/L (135-145) H Potassium Level 3.5 mEQ/L (3.4-4.9) Chloride Level 106 mEQ/L (98-107) Carbon Dioxide Level 40 mEQ/L (20-30) H Anion Gap 5 (5-15) Blood Urea Nitrogen 34 mg/dL (7-23) H Creatinine 0.8 mg/dL (0.5-0.9) Estimat Glomerular Filtration Rate > 60 mL/min (>60) Glucose Level 141 mg/dL (74-106) H Calcium Level 8.5 mg/dL (8.6-10.2) L Total Bilirubin 1.5 mg/dL (0.0-1.2) H Direct Bilirubin 0.6 mg/dL (0.1-0.3) H Aspartate Amino Transf (AST/SGOT) 52 U/L (5-40) H Alanine Aminotransferase (ALT/SGPT) 25 U/L (3-33) Alkaline Phosphatase 117 U/L (35-104) H Total Protein 6.7 g/dL (6.6-8.7) Albumin 2.1 g/dL (3.5-5.2) L Globulin 4.6 g/dL Albumin/Globulin Ratio 0.4 (1.0-2.7) L Arterial Blood pH 7.240 (7.350-7.450) Arterial Blood Partial Pressure CO2 102.5 mmHg (35.0-45.0) *H Arterial Blood Partial Pressure O2 60.8 mmHg (75.0-100.0) L Arterial Blood HCO3 43.7 mmol/L (22.0-26.0) H Arterial Blood Oxygen Saturation 85.1 % (92.0-98.0) L Arterial Blood Base Excess 13.1 Ok Test Positive ANNE RAM Dec 28, 2016 20:14
[2016-12-28] MEDS: acetaZOLAMIDE 500mg Inj IVP SCH (22:05)
[2016-12-29] VITALS (24 sets, daily range): BP systolic 121–159; BP diastolic 41–97
[2016-12-29 05:41] LABS: EOSINOPHILS % (AUTO) 2.7 % (0.0-3.0); LYMPHOCYTES % (AUTO) 9.9 % (20.0-45.0); MEAN CORPUSCULAR HEMOGLOBIN 30.2 PG (27.0-31.0); MEAN CORPUSCULAR HGB CONC 31.4 G/DL (32.0-36.0); MEAN CORPUSCULAR VOLUME 96 FL (80-99); MEAN PLATELET VOLUME 7.9 FL (6.5-10.1); MONOCYTES % (AUTO) 12.6 % (1.0-10.0); NEUTROPHILS % (AUTO) 72.7 % (45.0-75.0); PLATELET COUNT 280 K/UL (150-450); RED BLOOD COUNT 2.87 M/UL (4.20-5.40); RED CELL DISTRIBUTION WIDTH 15.8 % (11.6-14.8); WHITE BLOOD COUNT 8.8 K/UL (4.8-10.8)
[2016-12-29] MEDS: Nitroglycerin 2% oint pkt TOPIC SCH ×3 (05:43→18:08)
[2016-12-29] MEDS: NovoLOG Insulin Flexpen SUBQ SCH ×4 (05:44→23:32)
[2016-12-29 06:19] LABS: ALANINE AMINOTRANSFERASE 23 U/L (3-33); ALBUMIN/GLOBULIN RATIO 0.5 (1.0-2.7); ASPARTATE AMINO TRANSFERASE 41 U/L (5-40); CALCIUM 8.7 mg/dL (8.6-10.2); CHLORIDE 107 mEQ/L (98-107); CREATININE 0.9 mg/dL (0.5-0.9); GLOMERULAR FILTRATION RATE > 60 mL/min (>60); HEMOLYSIS 11; SODIUM 156 mEQ/L (135-145); TOTAL PROTEIN 6.4 g/dL (6.6-8.7)
[2016-12-29 06:22] LABS: ANION GAP 9 (5-15); CARBON DIOXIDE 40 mEQ/L (20-30)
[2016-12-29 06:25] LABS: AMYLASE 168 U/L (10-110); LIPASE 84 U/L (< 60)
[2016-12-29 06:48] LABS: BILIRUBIN,DIRECT 0.4 mg/dL (0.1-0.3)
--- NOTE | 2016-12-29 08:03 | Pulmonolgy Critical Care Note ---
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, 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, 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 - Objective Last 24 Hour Vital Signs Date Time Temp Pulse Resp B/P Pulse Ox O2 Delivery O2 Flow Rate FiO2 12/29/16 07:22 91 18 35 12/29/16 07:00 79 21 141/50 99 Mechanical Ventilator 35 12/29/16 06:00 77 21 142/56 98 Mechanical Ventilator 35 12/29/16 05:43 130/45 12/29/16 05:00 73 21 142/56 99 Mechanical Ventilator 35 12/29/16 04:39 80 18 35 12/29/16 04:00 65 12/29/16 04:00 98.1 70 17 130/45 99 Mechanical Ventilator 35 12/29/16 04:00 35 12/29/16 03:28 62 16 35 12/29/16 03:00 68 16 124/42 99 Mechanical Ventilator 35 12/29/16 02:00 76 21 135/46 99 Mechanical Ventilator 35 12/29/16 01:00 70 22 121/48 98 Mechanical Ventilator 35 12/29/16 00:42 73 18 35 12/29/16 00:00 35 12/29/16 00:00 75 12/29/16 00:00 98.6 71 27 133/50 98 Mechanical Ventilator 35 12/28/16 23:18 74 21 35 12/28/16 23:00 76 21 134/42 98 Mechanical Ventilator 35 12/28/16 22:00 82 21 157/53 98 Mechanical Ventilator 35 12/28/16 21:00 76 20 123/63 98 Mechanical Ventilator 35 12/28/16 20:57 89 144/66 12/28/16 20:53 76 16 35 12/28/16 20:00 82 12/28/16 20:00 35 12/28/16 20:00 97.8 81 19 144/66 98 Mechanical Ventilator 35 12/28/16 19:04 93 22 35 12/28/16 19:00 82 20 142/38 97 Mechanical Ventilator 35 12/28/16 18:00 79 18 146/62 97 Mechanical Ventilator 35 12/28/16 17:30 120/50 12/28/16 17:13 90 21 35 12/28/16 17:00 82 22 120/50 98 Mechanical Ventilator 35 12/28/16 16:00 75 12/28/16 16:00 35 12/28/16 16:00 97.9 86 19 123/48 97 Mechanical Ventilator 35 12/28/16 15:00 94 15 35 12/28/16 15:00 81 21 134/47 98 Mechanical Ventilator 35 12/28/16 14:00 80 20 113/42 98 Mechanical Ventilator 35 12/28/16 13:10 89 25 35 12/28/16 13:00 92 22 133/61 98 Mechanical Ventilator 35 12/28/16 12:07 129/48 12/28/16 12:00 98.0 88 20 129/48 97 Mechanical Ventilator 35 12/28/16 12:00 35 12/28/16 12:00 88 12/28/16 11:00 95 23 155/51 96 Mechanical Ventilator 35 12/28/16 11:00 116 20 35 12/28/16 11:00 35 12/28/16 10:00 101 21 150/60 96 Mechanical Ventilator 35 12/28/16 09:30 35 12/28/16 09:14 93 22 35 12/28/16 09:12 100 12/28/16 09:00 100 20 139/58 98 Mechanical Ventilator 35 12/28/16 08:32 90 154/49 Status: awake Condition: critical HEENT: atraumatic Neck: full ROM Heart: HR/BP stable Abdomen: soft, non-tender Extremities: no C/C/E, edema Accucheck: 139 Critical Care - Subjective ROS Limited/Unobtainable: Yes ICU Day: 13 Intubation Day: 13 Interval Events: no new events, not tolerating weaning Condition: critical FI02: 35 Vent Support Breath Rate: 16 Vent Support Mode: IMV/SIMV Vent Tidal Volume: 500 Sputum Amount: Small PEEP: 5.0 PIP: 36 Tube Feeding Amount: 50 I&O: Intake and Output 12/28/16 12/29/16 19:00 07:00 Intake Total 1046.8 ml 1246.8 ml Output Total 1650 ml 2000 ml Balance -603.2 ml -753.2 ml Free Water 100 ml 300 ml IV Total 346.8 ml 346.8 ml Tube Feeding 600 ml 600 ml Output Urine Total 1650 ml 2000 ml # Bowel Movements 6 4 CXR: pulmonary edema ET-Tube: 7.5 ET Position: 22 Labs: Laboratory Tests Test 12/28/16 10:35 12/28/16 11:50 12/29/16 04:20 Arterial Blood pH 7.240 (7.350-7.450) Arterial Blood Partial Pressure CO2 102.5 mmHg (35.0-45.0) *H Arterial Blood Partial Pressure O2 60.8 mmHg (75.0-100.0) L Arterial Blood HCO3 43.7 mmol/L (22.0-26.0) H Arterial Blood Oxygen Saturation 85.1 % (92.0-98.0) L Arterial Blood Base Excess 13.1 Ok Test Positive Activated Partial Thromboplast Time 76 SEC (23-33) H 84 SEC (23-33) H White Blood Count 8.8 K/UL (4.8-10.8) Red Blood Count 2.87 M/UL (4.20-5.40) L Hemoglobin 8.6 G/DL (12.0-16.0) L Hematocrit 27.6 % (37.0-47.0) L Mean Corpuscular Volume 96 FL (80-99) Mean Corpuscular Hemoglobin 30.2 PG (27.0-31.0) Mean Corpuscular Hemoglobin Concent 31.4 G/DL (32.0-36.0) L Red Cell Distribution Width 15.8 % (11.6-14.8) H Platelet Count 280 K/UL (150-450) Mean Platelet Volume 7.9 FL (6.5-10.1) Neutrophils (%) (Auto) 72.7 % (45.0-75.0) Lymphocytes (%) (Auto) 9.9 % (20.0-45.0) L Monocytes (%) (Auto) 12.6 % (1.0-10.0) H Eosinophils (%) (Auto) 2.7 % (0.0-3.0) Basophils (%) (Auto) 2.0 % (0.0-2.0) Sodium Level 156 mEQ/L (135-145) H Potassium Level 3.0 mEQ/L (3.4-4.9) L Chloride Level 107 mEQ/L (98-107) Carbon Dioxide Level 40 mEQ/L (20-30) H Anion Gap 9 (5-15) Blood Urea Nitrogen 36 mg/dL (7-23) H Creatinine 0.9 mg/dL (0.5-0.9) Estimat Glomerular Filtration Rate > 60 mL/min (>60) Glucose Level 127 mg/dL (74-106) H Calcium Level 8.7 mg/dL (8.6-10.2) Total Bilirubin 1.2 mg/dL (0.0-1.2) Direct Bilirubin 0.4 mg/dL (0.1-0.3) H Aspartate Amino Transf (AST/SGOT) 41 U/L (5-40) H Alanine Aminotransferase (ALT/SGPT) 23 U/L (3-33) Alkaline Phosphatase 112 U/L (35-104) H Pro-B-Type Natriuretic Peptide 1716 pg/mL (0-125) H Total Protein 6.4 g/dL (6.6-8.7) L Albumin 2.2 g/dL (3.5-5.2) L Globulin 4.2 g/dL Albumin/Globulin Ratio 0.5 (1.0-2.7) L Amylase Level 168 U/L (10-110) H Lipase 84 U/L (< 60) H TONY BRIDGES Dec 29, 2016 08:03
[2016-12-29] MEDS: Morphine Sulfate 4mg/ml Inj IVP PRN ×2 (08:24→14:26)
[2016-12-29] MEDS: acetaZOLAMIDE 500mg Inj IVP SCH (08:25)
[2016-12-29] MEDS: Sucralfate 1gm tab ORAL SCH ×4 (08:25→21:13)
[2016-12-29] MEDS: Anusol HC Supp RECTAL SCH ×2 (08:37→18:08)
[2016-12-29] MEDS: Pantoprazole Inj IVP SCH (08:37)
[2016-12-29] MEDS ORDERED: KCl 10% 40mEq/30ml liquid NG ONE (09:00)
--- NOTE | 2016-12-29 09:44 | General Progress Note ---
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 on anticoagulation Pulmonary HTN HypoAlbuminemia Plan: weaning in process Per GI / Surgery Keep BP under control Avoid nephrotoxics K supplement as needed monitor renal parameters Subjective ROS Limited/Unobtainable: Yes Allergies: Coded Allergies: No Known Allergies (Unverified , 09/28/14) Objective Last 24 Hour Vital Signs Date Time Temp Pulse Resp B/P Pulse Ox O2 Delivery O2 Flow Rate FiO2 12/29/16 09:06 100 12/29/16 09:05 92 20 35 12/29/16 09:00 87 21 135/49 97 Mechanical Ventilator 35 12/29/16 08:54 98.5 12/29/16 08:24 90 147/57 12/29/16 08:00 89 12/29/16 08:00 35 12/29/16 08:00 98.5 82 20 147/57 98 Mechanical Ventilator 35 12/29/16 07:22 91 18 35 12/29/16 07:00 79 21 141/50 99 Mechanical Ventilator 35 12/29/16 06:00 77 21 142/56 98 Mechanical Ventilator 35 12/29/16 05:43 130/45 12/29/16 05:00 73 21 142/56 99 Mechanical Ventilator 35 12/29/16 04:39 80 18 35 12/29/16 04:00 65 12/29/16 04:00 98.1 70 17 130/45 99 Mechanical Ventilator 35 12/29/16 04:00 35 12/29/16 03:28 62 16 35 12/29/16 03:00 68 16 124/42 99 Mechanical Ventilator 35 12/29/16 02:00 76 21 135/46 99 Mechanical Ventilator 35 12/29/16 01:00 70 22 121/48 98 Mechanical Ventilator 35 12/29/16 00:42 73 18 35 12/29/16 00:00 35 12/29/16 00:00 75 12/29/16 00:00 98.6 71 27 133/50 98 Mechanical Ventilator 35 12/28/16 23:18 74 21 35 12/28/16 23:00 76 21 134/42 98 Mechanical Ventilator 35 12/28/16 22:00 82 21 157/53 98 Mechanical Ventilator 35 12/28/16 21:00 76 20 123/63 98 Mechanical Ventilator 35 12/28/16 20:57 89 144/66 12/28/16 20:53 76 16 35 12/28/16 20:00 82 12/28/16 20:00 35 12/28/16 20:00 97.8 81 19 144/66 98 Mechanical Ventilator 35 12/28/16 19:04 93 22 35 12/28/16 19:00 82 20 142/38 97 Mechanical Ventilator 35 12/28/16 18:00 79 18 146/62 97 Mechanical Ventilator 35 12/28/16 17:30 120/50 12/28/16 17:13 90 21 35 12/28/16 17:00 82 22 120/50 98 Mechanical Ventilator 35 12/28/16 16:00 75 12/28/16 16:00 35 12/28/16 16:00 97.9 86 19 123/48 97 Mechanical Ventilator 35 12/28/16 15:00 94 15 35 12/28/16 15:00 81 21 134/47 98 Mechanical Ventilator 35 12/28/16 14:00 80 20 113/42 98 Mechanical Ventilator 35 12/28/16 13:10 89 25 35 12/28/16 13:00 92 22 133/61 98 Mechanical Ventilator 35 12/28/16 12:07 129/48 12/28/16 12:00 98.0 88 20 129/48 97 Mechanical Ventilator 35 12/28/16 12:00 35 12/28/16 12:00 88 12/28/16 11:00 95 23 155/51 96 Mechanical Ventilator 35 12/28/16 11:00 116 20 35 12/28/16 11:00 35 12/28/16 10:00 101 21 150/60 96 Mechanical Ventilator 35 Intake and Output 12/28/16 12/29/16 18:59 06:59 Intake Total 1046.839 ml 1246.8 ml Output Total 1625 ml 2000 ml Balance -578.161 ml -753.2 ml Free Water 100 ml 300 ml IV Total 346.839 ml 346.8 ml Tube Feeding 600 ml 600 ml Output Urine Total 1625 ml 2000 ml # Bowel Movements 6 4 Laboratory Tests 12/28/16 10:35: Arterial Blood pH 7.240*L, Arterial Blood Partial Pressure CO2 102.5*H, Arterial Blood Partial Pressure O2 60.8L, Arterial Blood HCO3 43.7H, Arterial Blood Oxygen Saturation 85.1L, Arterial Blood Base Excess 13.1, Ok Test Positive 12/28/16 11:50: Activated Partial Thromboplast Time 76H 12/29/16 04:20: Activated Partial Thromboplast Time 84H, White Blood Count 8.8, Red Blood Count 2.87L, Hemoglobin 8.6L, Hematocrit 27.6L, Mean Corpuscular Volume 96, Mean Corpuscular Hemoglobin 30.2, Mean Corpuscular Hemoglobin Concent 31.4L, Red Cell Distribution Width 15.8H, Platelet Count 280, Mean Platelet Volume 7.9, Neutrophils (%) (Auto) 72.7, Lymphocytes (%) (Auto) 9.9L, Monocytes (%) (Auto) 12.6H, Eosinophils (%) (Auto) 2.7, Basophils (%) (Auto) 2.0, Sodium Level 156H, Potassium Level 3.0L, Chloride Level 107, Carbon Dioxide Level 40H, Anion Gap 9 , Blood Urea Nitrogen 36H, Creatinine 0.9, Estimat Glomerular Filtration Rate > 60, Glucose Level 127H, Calcium Level 8.7, Total Bilirubin 1.2, Direct Bilirubin 0.4H, Aspartate Amino Transf (AST/SGOT) 41H, Alanine Aminotransferase (ALT/SGPT) 23, Alkaline Phosphatase 112H, Pro-B-Type Natriuretic Peptide 1716H, Total Protein 6.4L, Albumin 2.2L, Globulin 4.2, Albumin/Globulin Ratio 0.5L, Amylase Level 168H, Lipase 84H Height (Feet): 5 Height (Inches): 1.00 Weight (Pounds): 145 General Appearance: mild distress Cardiovascular: tachycardia Respiratory/Chest: decreased breath sounds Abdomen: distended Objective other PE not changed KAMINI SNOW Dec 29, 2016 09:44
--- NOTE | 2016-12-29 12:43 | General Progress Note ---
Assessment/Plan Problem List: (1) Pancreatitis ICD Codes: K85.9 - Acute pancreatitis, unspecified SNOMED: 91727157 Qualifiers: Qualified Codes: K85.10 - Biliary acute pancreatitis without necrosis or infection (2) Abdominal pain ICD Codes: R10.9 - Unspecified abdominal pain SNOMED: 11271242, 183733126 (3) Iron deficiency anemia ICD Codes: D50.9 - Iron deficiency anemia, unspecified SNOMED: 80669526 (4) Colon polyp ICD Codes: K63.5 - Polyp of colon SNOMED: 26381058 Assessment/Plan tolerating TF decreasing amylase and lipase fu cardiology supportive carer Subjective ROS Limited/Unobtainable: No Allergies: Coded Allergies: No Known Allergies (Unverified , 09/28/14) Objective Last 24 Hour Vital Signs Date Time Temp Pulse Resp B/P Pulse Ox O2 Delivery O2 Flow Rate FiO2 12/29/16 12:06 151/55 12/29/16 11:00 98 24 151/57 98 Mechanical Ventilator 35 12/29/16 11:00 99 16 35 12/29/16 10:00 84 20 139/47 98 Mechanical Ventilator 35 12/29/16 09:06 100 12/29/16 09:05 92 20 35 12/29/16 09:00 87 21 135/49 97 Mechanical Ventilator 35 12/29/16 08:54 98.5 12/29/16 08:24 90 147/57 12/29/16 08:00 89 12/29/16 08:00 35 12/29/16 08:00 98.5 82 20 147/57 98 Mechanical Ventilator 35 12/29/16 07:22 91 18 35 12/29/16 07:00 79 21 141/50 99 Mechanical Ventilator 35 12/29/16 06:00 77 21 142/56 98 Mechanical Ventilator 35 12/29/16 05:43 130/45 12/29/16 05:00 73 21 142/56 99 Mechanical Ventilator 35 12/29/16 04:39 80 18 35 12/29/16 04:00 65 12/29/16 04:00 98.1 70 17 130/45 99 Mechanical Ventilator 35 12/29/16 04:00 35 12/29/16 03:28 62 16 35 12/29/16 03:00 68 16 124/42 99 Mechanical Ventilator 35 12/29/16 02:00 76 21 135/46 99 Mechanical Ventilator 35 12/29/16 01:00 70 22 121/48 98 Mechanical Ventilator 35 12/29/16 00:42 73 18 35 12/29/16 00:00 35 12/29/16 00:00 75 12/29/16 00:00 98.6 71 27 133/50 98 Mechanical Ventilator 35 12/28/16 23:18 74 21 35 12/28/16 23:00 76 21 134/42 98 Mechanical Ventilator 35 12/28/16 22:00 82 21 157/53 98 Mechanical Ventilator 35 12/28/16 21:00 76 20 123/63 98 Mechanical Ventilator 35 12/28/16 20:57 89 144/66 12/28/16 20:53 76 16 35 12/28/16 20:00 82 12/28/16 20:00 35 12/28/16 20:00 97.8 81 19 144/66 98 Mechanical Ventilator 35 12/28/16 19:04 93 22 35 12/28/16 19:00 82 20 142/38 97 Mechanical Ventilator 35 12/28/16 18:00 79 18 146/62 97 Mechanical Ventilator 35 12/28/16 17:30 120/50 12/28/16 17:13 90 21 35 12/28/16 17:00 82 22 120/50 98 Mechanical Ventilator 35 12/28/16 16:00 75 12/28/16 16:00 35 12/28/16 16:00 97.9 86 19 123/48 97 Mechanical Ventilator 35 12/28/16 15:00 94 15 35 12/28/16 15:00 81 21 134/47 98 Mechanical Ventilator 35 12/28/16 14:00 80 20 113/42 98 Mechanical Ventilator 35 12/28/16 13:10 89 25 35 12/28/16 13:00 92 22 133/61 98 Mechanical Ventilator 35 Intake and Output 12/28/16 12/29/16 19:00 07:00 Intake Total 1046.8 ml 1246.8 ml Output Total 1650 ml 2000 ml Balance -603.2 ml -753.2 ml Free Water 100 ml 300 ml IV Total 346.8 ml 346.8 ml Tube Feeding 600 ml 600 ml Output Urine Total 1650 ml 2000 ml # Bowel Movements 6 4 Laboratory Tests 12/29/16 04:20: White Blood Count 8.8, Red Blood Count 2.87L, Hemoglobin 8.6L, Hematocrit 27.6L , Mean Corpuscular Volume 96, Mean Corpuscular Hemoglobin 30.2, Mean Corpuscular Hemoglobin Concent 31.4L, Red Cell Distribution Width 15.8H, Platelet Count 280, Mean Platelet Volume 7.9, Neutrophils (%) (Auto) 72.7, Lymphocytes (%) (Auto) 9.9L, Monocytes (%) (Auto) 12.6H, Eosinophils (%) (Auto) 2.7, Basophils (%) (Auto) 2.0, Activated Partial Thromboplast Time 84H, Sodium Level 156H, Potassium Level 3.0L, Chloride Level 107, Carbon Dioxide Level 40H, Anion Gap 9, Blood Urea Nitrogen 36H, Creatinine 0.9, Estimat Glomerular Filtration Rate > 60, Glucose Level 127H, Calcium Level 8.7, Total Bilirubin 1.2 , Direct Bilirubin 0.4H, Aspartate Amino Transf (AST/SGOT) 41H, Alanine Aminotransferase (ALT/SGPT) 23, Alkaline Phosphatase 112H, Pro-B-Type Natriuretic Peptide 1716H, Total Protein 6.4L, Albumin 2.2L, Globulin 4.2, Albumin/Globulin Ratio 0.5L, Amylase Level 168H, Lipase 84H Height (Feet): 5 Height (Inches): 1.00 Weight (Pounds): 145 General Appearance: no apparent distress EENT: normal ENT inspection Neck: supple Cardiovascular: normal rate Respiratory/Chest: decreased breath sounds Abdomen: normal bowel sounds, non tender, soft Extremities: non-tender BRAD NGUYEN Dec 29, 2016 12:43
[2016-12-29] MEDS: Heparin 25,000u/D5W 500ml 500 ML IV SCH (16:21)
--- NOTE | 2016-12-29 16:50 | Cardiology Progress Note ---
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 valve prosthesis on anticoagulation perm afib on anticoagulation with Coumadin coagulopathy now elevated due to med interaction adn disease process leukocytosis ARF intra abd hematomas brbpr hypernatremia bloody bm small amount again today but hgb is stabel good urine output in response to lasix ct performed 12/24/2016 showed multi hematomas in barber bd cavity on heparin repeat cbc daily d/w rn bp has been ok will start antihypertensive nwo tqht she is able to taek via ngtube repeat echo note lv fxn normal , as( high gradient despite recent avr ), mvr , pulm htn now on free water 100 qid but na frank increased to 156 will add d5w as well to see if can correct na as weel a promote natriuresis hold lasix further today decrease as of tomorrow and add Zaroxolyn prior to am shin of lasix s/p 2 doses of diamox iv over nite bicard 40 stable consider renal evla to help with diruetic and na control will order cxr for am will d/w dr francisco j horton wean yest did some cpap d/w rn Subjective Cardiovascular: Denies: chest pain, lightheadedness, palpitations Respiratory: Denies: shortness of breath Gastrointestinal/Abdominal: Denies: abdominal pain, nausea Genitourinary: Denies: burning Subjective on the vent , Objective Last 24 Hour Vital Signs Date Time Temp Pulse Resp B/P Pulse Ox O2 Delivery O2 Flow Rate FiO2 12/29/16 16:00 102 12/29/16 16:00 40 12/29/16 16:00 98.5 100 24 159/59 97 Mechanical Ventilator 40 12/29/16 15:29 84 15 40 12/29/16 15:00 105 22 149/58 97 Mechanical Ventilator 40 12/29/16 14:55 98.1 12/29/16 14:00 102 26 153/57 98 Mechanical Ventilator 35 12/29/16 13:55 40 12/29/16 13:55 40 12/29/16 13:04 97 21 35 12/29/16 13:00 100 24 156/55 98 Mechanical Ventilator 35 12/29/16 13:00 40 12/29/16 12:06 151/55 12/29/16 12:00 99 12/29/16 12:00 98.1 99 22 151/55 97 Mechanical Ventilator 35 12/29/16 11:00 98 24 151/57 98 Mechanical Ventilator 35 12/29/16 11:00 99 16 35 12/29/16 11:00 35 12/29/16 10:00 84 20 139/47 98 Mechanical Ventilator 35 12/29/16 09:06 100 12/29/16 09:05 92 20 35 12/29/16 09:00 87 21 135/49 97 Mechanical Ventilator 35 12/29/16 08:24 90 147/57 12/29/16 08:00 89 12/29/16 08:00 35 12/29/16 08:00 98.5 82 20 147/57 98 Mechanical Ventilator 35 12/29/16 07:22 91 18 35 12/29/16 07:00 79 21 141/50 99 Mechanical Ventilator 35 12/29/16 06:00 77 21 142/56 98 Mechanical Ventilator 35 12/29/16 05:43 130/45 12/29/16 05:00 73 21 142/56 99 Mechanical Ventilator 35 12/29/16 04:39 80 18 35 12/29/16 04:00 65 12/29/16 04:00 98.1 70 17 130/45 99 Mechanical Ventilator 35 12/29/16 04:00 35 12/29/16 03:28 62 16 35 12/29/16 03:00 68 16 124/42 99 Mechanical Ventilator 35 12/29/16 02:00 76 21 135/46 99 Mechanical Ventilator 35 12/29/16 01:00 70 22 121/48 98 Mechanical Ventilator 35 12/29/16 00:42 73 18 35 12/29/16 00:00 35 12/29/16 00:00 75 12/29/16 00:00 98.6 71 27 133/50 98 Mechanical Ventilator 35 12/28/16 23:18 74 21 35 12/28/16 23:00 76 21 134/42 98 Mechanical Ventilator 35 12/28/16 22:00 82 21 157/53 98 Mechanical Ventilator 35 12/28/16 21:00 76 20 123/63 98 Mechanical Ventilator 35 12/28/16 20:57 89 144/66 12/28/16 20:53 76 16 35 12/28/16 20:00 82 12/28/16 20:00 35 12/28/16 20:00 97.8 81 19 144/66 98 Mechanical Ventilator 35 12/28/16 19:04 93 22 35 12/28/16 19:00 82 20 142/38 97 Mechanical Ventilator 35 12/28/16 18:00 79 18 146/62 97 Mechanical Ventilator 35 12/28/16 17:30 120/50 12/28/16 17:13 90 21 35 12/28/16 17:00 82 22 120/50 98 Mechanical Ventilator 35 General Appearance: no apparent distress, alert, on vent Neck: supple Cardiovascular: irregularly irregular, other - mechanica heart sounds Respiratory/Chest: lungs clear Abdomen: normal bowel sounds, non tender, soft Extremities: moderate edema Intake and Output 12/28/16 12/29/16 19:00 07:00 Intake Total 1046.8 ml 1246.8 ml Output Total 1650 ml 2000 ml Balance -603.2 ml -753.2 ml Free Water 100 ml 300 ml IV Total 346.8 ml 346.8 ml Tube Feeding 600 ml 600 ml Output Urine Total 1650 ml 2000 ml # Bowel Movements 6 4 Laboratory Tests Test 12/29/16 04:20 White Blood Count 8.8 K/UL (4.8-10.8) Red Blood Count 2.87 M/UL (4.20-5.40) L Hemoglobin 8.6 G/DL (12.0-16.0) L Hematocrit 27.6 % (37.0-47.0) L Mean Corpuscular Volume 96 FL (80-99) Mean Corpuscular Hemoglobin 30.2 PG (27.0-31.0) Mean Corpuscular Hemoglobin Concent 31.4 G/DL (32.0-36.0) L Red Cell Distribution Width 15.8 % (11.6-14.8) H Platelet Count 280 K/UL (150-450) Mean Platelet Volume 7.9 FL (6.5-10.1) Neutrophils (%) (Auto) 72.7 % (45.0-75.0) Lymphocytes (%) (Auto) 9.9 % (20.0-45.0) L Monocytes (%) (Auto) 12.6 % (1.0-10.0) H Eosinophils (%) (Auto) 2.7 % (0.0-3.0) Basophils (%) (Auto) 2.0 % (0.0-2.0) Activated Partial Thromboplast Time 84 SEC (23-33) H Sodium Level 156 mEQ/L (135-145) H Potassium Level 3.0 mEQ/L (3.4-4.9) L Chloride Level 107 mEQ/L (98-107) Carbon Dioxide Level 40 mEQ/L (20-30) H Anion Gap 9 (5-15) Blood Urea Nitrogen 36 mg/dL (7-23) H Creatinine 0.9 mg/dL (0.5-0.9) Estimat Glomerular Filtration Rate > 60 mL/min (>60) Glucose Level 127 mg/dL (74-106) H Calcium Level 8.7 mg/dL (8.6-10.2) Total Bilirubin 1.2 mg/dL (0.0-1.2) Direct Bilirubin 0.4 mg/dL (0.1-0.3) H Aspartate Amino Transf (AST/SGOT) 41 U/L (5-40) H Alanine Aminotransferase (ALT/SGPT) 23 U/L (3-33) Alkaline Phosphatase 112 U/L (35-104) H Pro-B-Type Natriuretic Peptide 1716 pg/mL (0-125) H Total Protein 6.4 g/dL (6.6-8.7) L Albumin 2.2 g/dL (3.5-5.2) L Globulin 4.2 g/dL Albumin/Globulin Ratio 0.5 (1.0-2.7) L Amylase Level 168 U/L (10-110) H Lipase 84 U/L (< 60) H ANNE RAM Dec 29, 2016 16:50
[2016-12-29] MEDS: Lisinopril 10mg tab ORAL SCH (18:07)
[2016-12-30] VITALS (24 sets, daily range): BP systolic 112–148; BP diastolic 31–64
[2016-12-30] MEDS: LORazepam Inj 2mg/ml 1ml IV PRN (00:59)
[2016-12-30] MEDS: NovoLOG Insulin Flexpen SUBQ SCH ×4 (05:19→23:45)
[2016-12-30 05:23] LABS: BASOPHILS % (AUTO) 0.8 % (0.0-2.0); LYMPHOCYTES % (AUTO) 14.5 % (20.0-45.0); MEAN CORPUSCULAR HGB CONC 30.4 G/DL (32.0-36.0); MEAN CORPUSCULAR VOLUME 99 FL (80-99); MEAN PLATELET VOLUME 8.9 FL (6.5-10.1); NEUTROPHILS % (AUTO) 72.8 % (45.0-75.0); PLATELET COUNT 275 K/UL (150-450); RED BLOOD COUNT 2.68 M/UL (4.20-5.40); RED CELL DISTRIBUTION WIDTH 16.9 % (11.6-14.8); WHITE BLOOD COUNT 11.3 K/UL (4.8-10.8)
[2016-12-30] MEDS: Nitroglycerin 2% oint pkt TOPIC SCH (05:24)
[2016-12-30 05:35] LABS: ALBUMIN/GLOBULIN RATIO 0.6 (1.0-2.7); CALCIUM 8.4 mg/dL (8.6-10.2); GLOMERULAR FILTRATION RATE 54.8 mL/min (>60); MAGNESIUM 2.3 mg/dL (1.7-2.5); PHOSPHORUS 4.5 mg/dL (2.5-4.8); POTASSIUM 3.4 mEQ/L (3.4-4.9); TOTAL PROTEIN 6.3 g/dL (6.6-8.7)
[2016-12-30 05:44] LABS: AMYLASE 145 U/L (10-110); LIPASE 73 U/L (< 60)
[2016-12-30] MEDS: METOLAZONE 2.5 MG ORAL SCH (07:53)
--- NOTE | 2016-12-30 07:59 | Diagnostic Imaging Report ---
Indications: DYSPNEA Technique: Portable AP chest Findings: Comparison: 12/26/16 Cardiomegaly, diffuse bilateral mixed interstitial and alveolar lung opacities, linear density compatible with subsegmental atelectasis left lung base persist, unchanged. Lines and tubes remain in place. No new abnormality identified. IMPRESSION: Stable bilateral congestive changes versus diffuse pneumonitis stable left lung base subsegmental atelectasis No new abnormality
--- NOTE | 2016-12-30 08:13 | Infectious Diseases Prog Note ---
Assessment/Plan Assessment/Plan A: Pancreatitis Cholelithiasis, Cholecystitis Mechanical mitral valve Atrial fibrillation Leukocytosis Respiratory failure P; observe off antibiotic Subjective ROS Limited/Unobtainable: Yes Allergies: Coded Allergies: No Known Allergies (Unverified , 09/28/14) Objective Vital Signs Last 24 Hour Vital Signs Date Time Temp Pulse Resp B/P Pulse Ox O2 Delivery O2 Flow Rate FiO2 12/30/16 07:24 94 26 40 12/30/16 07:00 75 18 115/42 99 Mechanical Ventilator 40 12/30/16 06:00 73 18 135/53 100 Mechanical Ventilator 40 12/30/16 05:24 126/39 12/30/16 05:00 79 16 126/39 100 Mechanical Ventilator 40 12/30/16 04:56 80 24 40 12/30/16 04:00 67 12/30/16 04:00 98.3 79 19 124/38 99 Mechanical Ventilator 40 12/30/16 04:00 40 12/30/16 03:00 71 18 124/38 100 Mechanical Ventilator 40 12/30/16 02:35 77 21 40 12/30/16 02:00 71 20 125/37 100 Mechanical Ventilator 40 12/30/16 01:00 75 23 112/34 100 Mechanical Ventilator 40 12/30/16 00:50 81 14 40 12/30/16 00:00 77 12/30/16 00:00 98.1 78 17 126/34 99 Mechanical Ventilator 40 12/30/16 00:00 40 12/29/16 23:00 82 18 136/49 99 Mechanical Ventilator 40 12/29/16 22:42 80 14 40 12/29/16 22:00 83 18 129/47 99 Mechanical Ventilator 40 12/29/16 21:14 78 128/41 12/29/16 21:00 85 19 128/41 99 Mechanical Ventilator 40 12/29/16 20:31 92 19 40 12/29/16 20:00 94 12/29/16 20:00 40 12/29/16 20:00 98.3 88 19 126/51 99 Mechanical Ventilator 40 12/29/16 19:00 93 21 140/65 99 Mechanical Ventilator 40 12/29/16 18:36 95 16 40 12/29/16 18:08 151/61 12/29/16 18:07 151/56 12/29/16 18:00 98 20 151/56 98 Mechanical Ventilator 40 12/29/16 17:16 95 16 40 12/29/16 17:00 105 22 149/97 98 Mechanical Ventilator 40 12/29/16 16:00 102 12/29/16 16:00 40 12/29/16 16:00 98.5 100 24 159/59 97 Mechanical Ventilator 40 12/29/16 15:29 84 15 40 12/29/16 15:00 105 22 149/58 97 Mechanical Ventilator 40 12/29/16 14:55 98.1 12/29/16 14:00 102 26 153/57 98 Mechanical Ventilator 35 12/29/16 13:55 40 12/29/16 13:55 40 12/29/16 13:04 97 21 35 12/29/16 13:00 100 24 156/55 98 Mechanical Ventilator 35 12/29/16 13:00 40 12/29/16 12:06 151/55 12/29/16 12:00 99 12/29/16 12:00 98.1 99 22 151/55 97 Mechanical Ventilator 35 12/29/16 11:00 98 24 151/57 98 Mechanical Ventilator 35 12/29/16 11:00 99 16 35 12/29/16 11:00 35 12/29/16 10:00 84 20 139/47 98 Mechanical Ventilator 35 12/29/16 09:06 100 12/29/16 09:05 92 20 35 12/29/16 09:00 87 21 135/49 97 Mechanical Ventilator 35 12/29/16 08:24 90 147/57 Height (Feet): 5 Height (Inches): 1.00 Weight (Pounds): 145 General Appearance: no acute distress HEENT: other - orally intubated Respiratory/Chest: lungs clear, other - on ventilator Cardiovascular: normal rate Abdomen: other - NG tube Extremities: other - severe edema, left arm PICC line Neurologic/Psychiatric: alert, responsive Laboratory Tests Test 12/30/16 04:30 White Blood Count 11.3 K/UL (4.8-10.8) H Red Blood Count 2.68 M/UL (4.20-5.40) L Hemoglobin 8.0 G/DL (12.0-16.0) L Hematocrit 26.4 % (37.0-47.0) L Mean Corpuscular Volume 99 FL (80-99) Mean Corpuscular Hemoglobin 30.0 PG (27.0-31.0) Mean Corpuscular Hemoglobin Concent 30.4 G/DL (32.0-36.0) L Red Cell Distribution Width 16.9 % (11.6-14.8) H Platelet Count 275 K/UL (150-450) Mean Platelet Volume 8.9 FL (6.5-10.1) Neutrophils (%) (Auto) 72.8 % (45.0-75.0) Lymphocytes (%) (Auto) 14.5 % (20.0-45.0) L Monocytes (%) (Auto) 10.0 % (1.0-10.0) Eosinophils (%) (Auto) 2.0 % (0.0-3.0) Basophils (%) (Auto) 0.8 % (0.0-2.0) Activated Partial Thromboplast Time 92 SEC (23-33) H Sodium Level 154 mEQ/L (135-145) H Potassium Level 3.4 mEQ/L (3.4-4.9) Chloride Level 106 mEQ/L (98-107) Carbon Dioxide Level 40 mEQ/L (20-30) H Anion Gap 8 (5-15) Blood Urea Nitrogen 40 mg/dL (7-23) H Creatinine 1.0 mg/dL (0.5-0.9) H Estimat Glomerular Filtration Rate 54.8 mL/min (>60) Glucose Level 143 mg/dL (74-106) H Calcium Level 8.4 mg/dL (8.6-10.2) L Phosphorus Level 4.5 mg/dL (2.5-4.8) Magnesium Level 2.3 mg/dL (1.7-2.5) Total Bilirubin 0.8 mg/dL (0.0-1.2) Aspartate Amino Transf (AST/SGOT) 32 U/L (5-40) Alanine Aminotransferase (ALT/SGPT) 21 U/L (3-33) Alkaline Phosphatase 113 U/L (35-104) H Pro-B-Type Natriuretic Peptide 1691 pg/mL (0-125) H Total Protein 6.3 g/dL (6.6-8.7) L Albumin 2.4 g/dL (3.5-5.2) L Globulin 3.9 g/dL Albumin/Globulin Ratio 0.6 (1.0-2.7) L Amylase Level 145 U/L (10-110) H Lipase 73 U/L (< 60) H Current Medications Medications (Trade) Dose Ordered Sig/Lisbeth Route PRN Reason Start Time Stop Time Status Last Admin Dose Admin Acetaminophen (Tylenol) 650 mg Q4H PRN ORAL fever 12/17/16 08:00 01/16/17 07:59 12/25/16 17:41 Amlodipine Besylate (Norvasc) 5 mg Q12HR ORAL 12/22/16 21:00 01/21/17 20:59 12/29/16 21:14 Clonidine HCl (Catapres) 0.1 mg Q4H PRN ORAL SBP >160 12/22/16 10:45 01/21/17 10:44 12/26/16 08:25 Dextrose (D5W 1000ml) 1,000 ml @ 50 mls/hr Q20H IV 12/29/16 18:00 01/28/17 17:59 12/29/16 18:07 Dextrose (Dextrose 50%) STAT PRN IV Hypoglycemia 12/17/16 07:30 01/16/17 07:29 Furosemide (Lasix) 40 mg BID IV 12/30/16 09:00 01/29/17 08:59 Heparin Sodium/ Dextrose (Heparin) 500 ml @ 28.939 mls/ hr adjust per protocol IV 12/28/16 05:50 01/24/17 17:44 12/29/16 16:21 Hydrocortisone (Anusol HC) 1 supp TWICE A DAY RECTAL 12/24/16 18:00 01/23/17 17:59 12/29/16 18:08 Insulin Aspart (NovoLOG) No Dose Q6HR SUBQ 12/17/16 12:00 01/16/17 11:59 12/30/16 05:19 Lisinopril (Zestril) 10 mg BID ORAL 12/29/16 18:00 01/28/17 17:59 12/29/16 18:07 Lorazepam (Ativan 2mg/ml 1ml) 1 mg Q4H PRN IV For Anxiety 12/23/16 08:45 12/30/16 08:44 12/30/16 00:59 Metolazone 2.5 mg 2.5 mg DAILY@0800 ORAL 12/30/16 08:00 01/29/17 07:59 12/30/16 07:53 Morphine Sulfate 4 mg 4 mg Q4H PRN IVP Severe Pain (Pain Scale 7-10) 12/27/16 12:15 01/03/17 12:14 12/29/16 14:26 Nitroglycerin (Nitro-Bid) 1 inch TID@0600,1200,1800 TOPIC 12/22/16 06:00 01/21/17 05:59 12/30/16 05:24 Nitroglycerin (Ntg) 0.4 mg Q5M X 3 DOSES PRN SL Prn Chest Pain 12/17/16 07:30 01/16/17 07:29 Ondansetron HCl (Zofran) 4 mg Q6H PRN IVP Nausea & Vomiting 12/17/16 07:30 01/16/17 07:29 Pantoprazole (Protonix) 40 mg DAILY IVP 12/20/16 09:00 01/19/17 08:59 12/29/16 08:37 Polyethylene Glycol (Miralax) 17 gm HSPRN PRN ORAL Constipation 12/17/16 07:30 01/16/17 07:29 Sucralfate (Carafate) 1 gm FOUR TIMES A DAY ORAL 12/17/16 09:00 01/16/17 08:59 12/29/16 21:13 ANA LILIA BEDOLLA Dec 30, 2016 08:13
[2016-12-30 08:46] LABS: ABG ALLEN TEST POSITIVE; ABG BASE EXCESS 20.4; ABG PCO2 100.3 mmHg (35.0-45.0)
[2016-12-30] MEDS: Lisinopril 10mg tab ORAL SCH (08:58)
[2016-12-30] MEDS: Anusol HC Supp RECTAL SCH ×2 (08:59→17:23)
[2016-12-30] MEDS: Sucralfate 1gm tab ORAL SCH ×4 (08:59→20:49)
[2016-12-30] MEDS: Pantoprazole Inj IVP SCH (08:59)
--- NOTE | 2016-12-30 10:00 | Diagnostic Imaging Report ---
Indications: DYSPNEA Technique: Portable AP chest Findings: Comparison: 12/29/16 Cardiomegaly, diffuse mixed bilateral interstitial and alveolar lung opacities, linear density in left lung base compatible subsegmental atelectasis unchanged. Lines and tubes remain in place. No abnormality identified. IMPRESSION: Stable bilateral congestive changes versus diffuse pneumonitis Stable left lung base subsegmental atelectasis
[2016-12-30] MEDS: Heparin 25,000u/D5W 500ml 500 ML IV SCH (10:37)
--- NOTE | 2016-12-30 10:41 | General Progress Note ---
Assessment/Plan Problem List: (1) Pancreatitis ICD Codes: K85.9 - Acute pancreatitis, unspecified SNOMED: 18339913 Qualifiers: Qualified Codes: K85.10 - Biliary acute pancreatitis without necrosis or infection (2) Abdominal pain ICD Codes: R10.9 - Unspecified abdominal pain SNOMED: 39242869, [id number] (3) Iron deficiency anemia ICD Codes: D50.9 - Iron deficiency anemia, unspecified SNOMED: 55327417 (4) Colon polyp ICD Codes: K63.5 - Polyp of colon SNOMED: 75911781 Assessment/Plan tolerating TF decreasing amylase and lipase fu cardiology supportive carer Subjective ROS Limited/Unobtainable: No Allergies: Coded Allergies: No Known Allergies (Unverified , 09/28/14) Objective Last 24 Hour Vital Signs Date Time Temp Pulse Resp B/P Pulse Ox O2 Delivery O2 Flow Rate FiO2 12/30/16 10:34 60 24 40 12/30/16 10:00 76 20 132/38 96 Mechanical Ventilator 40 12/30/16 09:30 40 12/30/16 09:00 75 20 127/45 97 Mechanical Ventilator 40 12/30/16 08:59 90 130/46 12/30/16 08:58 130/46 12/30/16 08:50 74 20 40 12/30/16 08:49 100 12/30/16 08:00 89 12/30/16 08:00 98.1 80 18 130/46 98 Mechanical Ventilator 40 12/30/16 08:00 40 12/30/16 07:24 94 26 40 12/30/16 07:00 75 18 115/42 99 Mechanical Ventilator 40 12/30/16 06:00 73 18 135/53 100 Mechanical Ventilator 40 12/30/16 05:24 126/39 12/30/16 05:00 79 16 126/39 100 Mechanical Ventilator 40 12/30/16 04:56 80 24 40 12/30/16 04:00 67 12/30/16 04:00 98.3 79 19 124/38 99 Mechanical Ventilator 40 12/30/16 04:00 40 12/30/16 03:00 71 18 124/38 100 Mechanical Ventilator 40 12/30/16 02:35 77 21 40 12/30/16 02:00 71 20 125/37 100 Mechanical Ventilator 40 12/30/16 01:00 75 23 112/34 100 Mechanical Ventilator 40 12/30/16 00:50 81 14 40 12/30/16 00:00 77 12/30/16 00:00 98.1 78 17 126/34 99 Mechanical Ventilator 40 12/30/16 00:00 40 12/29/16 23:00 82 18 136/49 99 Mechanical Ventilator 40 12/29/16 22:42 80 14 40 12/29/16 22:00 83 18 129/47 99 Mechanical Ventilator 40 12/29/16 21:14 78 128/41 12/29/16 21:00 85 19 128/41 99 Mechanical Ventilator 40 12/29/16 20:31 92 19 40 12/29/16 20:00 94 12/29/16 20:00 40 12/29/16 20:00 98.3 88 19 126/51 99 Mechanical Ventilator 40 12/29/16 19:00 93 21 140/65 99 Mechanical Ventilator 40 12/29/16 18:36 95 16 40 12/29/16 18:08 151/61 12/29/16 18:07 151/56 12/29/16 18:00 98 20 151/56 98 Mechanical Ventilator 40 12/29/16 17:16 95 16 40 12/29/16 17:00 105 22 149/97 98 Mechanical Ventilator 40 12/29/16 16:00 102 12/29/16 16:00 40 12/29/16 16:00 98.5 100 24 159/59 97 Mechanical Ventilator 40 12/29/16 15:29 84 15 40 12/29/16 15:00 105 22 149/58 97 Mechanical Ventilator 40 12/29/16 14:55 98.1 12/29/16 14:00 102 26 153/57 98 Mechanical Ventilator 35 12/29/16 13:55 40 12/29/16 13:55 40 12/29/16 13:04 97 21 35 12/29/16 13:00 100 24 156/55 98 Mechanical Ventilator 35 12/29/16 13:00 40 12/29/16 12:06 151/55 12/29/16 12:00 99 12/29/16 12:00 98.1 99 22 151/55 97 Mechanical Ventilator 35 12/29/16 11:00 98 24 151/57 98 Mechanical Ventilator 35 12/29/16 11:00 99 16 35 12/29/16 11:00 35 Intake and Output 12/29/16 12/30/16 19:00 07:00 Intake Total 1226.8 ml 1806.8 ml Output Total 990 ml 490 ml Balance 236.8 ml 1316.8 ml Free Water 200 ml 200 ml IV Total 396.8 ml 946.8 ml Tube Feeding 600 ml 600 ml Other 30 ml 60 ml Output Urine Total 990 ml 490 ml # Bowel Movements 7 2 Laboratory Tests 12/30/16 04:30: White Blood Count 11.3H, Red Blood Count 2.68L, Hemoglobin 8.0L, Hematocrit 26.4L, Mean Corpuscular Volume 99, Mean Corpuscular Hemoglobin 30.0, Mean Corpuscular Hemoglobin Concent 30.4L, Red Cell Distribution Width 16.9H, Platelet Count 275, Mean Platelet Volume 8.9, Neutrophils (%) (Auto) 72.8, Lymphocytes (%) (Auto) 14.5L, Monocytes (%) (Auto) 10.0, Eosinophils (%) (Auto) 2.0, Basophils (%) (Auto) 0.8, Activated Partial Thromboplast Time 92H, Sodium Level 154H, Potassium Level 3.4, Chloride Level 106, Carbon Dioxide Level 40H, Anion Gap 8, Blood Urea Nitrogen 40H, Creatinine 1.0H, Estimat Glomerular Filtration Rate 54.8, Glucose Level 143H, Calcium Level 8.4L, Phosphorus Level 4.5, Magnesium Level 2.3, Total Bilirubin 0.8, Aspartate Amino Transf (AST/SGOT ) 32, Alanine Aminotransferase (ALT/SGPT) 21, Alkaline Phosphatase 113H, Pro-B- Type Natriuretic Peptide 1691H, Total Protein 6.3L, Albumin 2.4L, Globulin 3.9, Albumin/Globulin Ratio 0.6L, Amylase Level 145H, Lipase 73H 12/30/16 08:00: Arterial Blood pH 7.315L, Arterial Blood Partial Pressure CO2 100.3*H, Arterial Blood Partial Pressure O2 82.9, Arterial Blood HCO3 49.9H, Arterial Blood Oxygen Saturation 94.7, Arterial Blood Base Excess 20.4, Ok Test Positive Height (Feet): 5 Height (Inches): 1.00 Weight (Pounds): 145 Neck: supple Cardiovascular: normal rate Respiratory/Chest: decreased breath sounds Abdomen: normal bowel sounds, non tender, soft Extremities: non-tender BRAD NGUYEN Dec 30, 2016 10:41
--- NOTE | 2016-12-30 10:44 | Pulmonolgy Critical Care Note ---
Critical Care - Asmt/Plan Problems: (1) Respiratory failure requiring intubation (2) Sepsis (3) Pancreatitis (4) ATN (acute tubular necrosis) (5) Atrial fibrillation Respiratory: monitor respiratory rate, adjust FIO2, CXR Cardiac: continue to monitor HR/BP Renal: F/U I&O, decrease IV fluid, check electrolytes Infectious Disease: check cultures, continue antibiotics Gastrointestinal: continue feedings/current rate Endocrine: monitor blood sugar, continue sliding scale insulin Hematologic: monitor H/H, transfuse if hgb<8.5 Neurologic: PRN Ativan, PRN Morphine, keep patient comfortable Affect: PRN ativan Prophylaxis: Heparin Notes Reviewed: 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 with: nurses, consultants, returned case 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 - Objective Last 24 Hour Vital Signs Date Time Temp Pulse Resp B/P Pulse Ox O2 Delivery O2 Flow Rate FiO2 12/30/16 10:34 60 24 40 12/30/16 10:00 76 20 132/38 96 Mechanical Ventilator 40 12/30/16 09:30 40 12/30/16 09:00 75 20 127/45 97 Mechanical Ventilator 40 12/30/16 08:59 90 130/46 12/30/16 08:58 130/46 12/30/16 08:50 74 20 40 12/30/16 08:49 100 12/30/16 08:00 89 12/30/16 08:00 98.1 80 18 130/46 98 Mechanical Ventilator 40 12/30/16 08:00 40 12/30/16 07:24 94 26 40 12/30/16 07:00 75 18 115/42 99 Mechanical Ventilator 40 12/30/16 06:00 73 18 135/53 100 Mechanical Ventilator 40 12/30/16 05:24 126/39 12/30/16 05:00 79 16 126/39 100 Mechanical Ventilator 40 12/30/16 04:56 80 24 40 12/30/16 04:00 67 12/30/16 04:00 98.3 79 19 124/38 99 Mechanical Ventilator 40 12/30/16 04:00 40 12/30/16 03:00 71 18 124/38 100 Mechanical Ventilator 40 12/30/16 02:35 77 21 40 12/30/16 02:00 71 20 125/37 100 Mechanical Ventilator 40 12/30/16 01:00 75 23 112/34 100 Mechanical Ventilator 40 12/30/16 00:50 81 14 40 12/30/16 00:00 77 12/30/16 00:00 98.1 78 17 126/34 99 Mechanical Ventilator 40 12/30/16 00:00 40 12/29/16 23:00 82 18 136/49 99 Mechanical Ventilator 40 12/29/16 22:42 80 14 40 12/29/16 22:00 83 18 129/47 99 Mechanical Ventilator 40 12/29/16 21:14 78 128/41 12/29/16 21:00 85 19 128/41 99 Mechanical Ventilator 40 12/29/16 20:31 92 19 40 12/29/16 20:00 94 12/29/16 20:00 40 12/29/16 20:00 98.3 88 19 126/51 99 Mechanical Ventilator 40 12/29/16 19:00 93 21 140/65 99 Mechanical Ventilator 40 12/29/16 18:36 95 16 40 12/29/16 18:08 151/61 12/29/16 18:07 151/56 12/29/16 18:00 98 20 151/56 98 Mechanical Ventilator 40 12/29/16 17:16 95 16 40 12/29/16 17:00 105 22 149/97 98 Mechanical Ventilator 40 12/29/16 16:00 102 12/29/16 16:00 40 12/29/16 16:00 98.5 100 24 159/59 97 Mechanical Ventilator 40 12/29/16 15:29 84 15 40 12/29/16 15:00 105 22 149/58 97 Mechanical Ventilator 40 12/29/16 14:55 98.1 12/29/16 14:00 102 26 153/57 98 Mechanical Ventilator 35 12/29/16 13:55 40 12/29/16 13:55 40 12/29/16 13:04 97 21 35 12/29/16 13:00 100 24 156/55 98 Mechanical Ventilator 35 12/29/16 13:00 40 12/29/16 12:06 151/55 12/29/16 12:00 99 12/29/16 12:00 98.1 99 22 151/55 97 Mechanical Ventilator 35 12/29/16 11:00 98 24 151/57 98 Mechanical Ventilator 35 12/29/16 11:00 99 16 35 12/29/16 11:00 35 Status: awake Condition: critical HEENT: atraumatic, normocephalic Lungs: clear, chest wall tender Heart: HR/BP stable, regular Abdomen: soft, active bowel sounds Extremities: edema Decubiti: location Accucheck: 140 Critical Care - Subjective ROS Limited/Unobtainable: No ICU Day: comfortable Condition: critical EKG Rhythm: Sinus Rhythm FI02: 40 Vent Support Breath Rate: 10 Vent Support Mode: IMV/SIMV Vent Tidal Volume: 500 Sputum Amount: Moderate PEEP: 5.0 PIP: 39 Secretions: small Fluids: d5w 50 cc.hour Tube Feeding Amount: 50 I&O: Intake and Output 12/29/16 12/30/16 19:00 07:00 Intake Total 1226.8 ml 1806.8 ml Output Total 990 ml 490 ml Balance 236.8 ml 1316.8 ml Free Water 200 ml 200 ml IV Total 396.8 ml 946.8 ml Tube Feeding 600 ml 600 ml Other 30 ml 60 ml Output Urine Total 990 ml 490 ml # Bowel Movements 7 2 CXR: pulmonary edema, et in good position ET-Tube: 7.5 ET Position: 22 Labs: Laboratory Tests Test 12/30/16 04:30 12/30/16 08:00 White Blood Count 11.3 K/UL (4.8-10.8) H Red Blood Count 2.68 M/UL (4.20-5.40) L Hemoglobin 8.0 G/DL (12.0-16.0) L Hematocrit 26.4 % (37.0-47.0) L Mean Corpuscular Volume 99 FL (80-99) Mean Corpuscular Hemoglobin 30.0 PG (27.0-31.0) Mean Corpuscular Hemoglobin Concent 30.4 G/DL (32.0-36.0) L Red Cell Distribution Width 16.9 % (11.6-14.8) H Platelet Count 275 K/UL (150-450) Mean Platelet Volume 8.9 FL (6.5-10.1) Neutrophils (%) (Auto) 72.8 % (45.0-75.0) Lymphocytes (%) (Auto) 14.5 % (20.0-45.0) L Monocytes (%) (Auto) 10.0 % (1.0-10.0) Eosinophils (%) (Auto) 2.0 % (0.0-3.0) Basophils (%) (Auto) 0.8 % (0.0-2.0) Activated Partial Thromboplast Time 92 SEC (23-33) H Sodium Level 154 mEQ/L (135-145) H Potassium Level 3.4 mEQ/L (3.4-4.9) Chloride Level 106 mEQ/L (98-107) Carbon Dioxide Level 40 mEQ/L (20-30) H Anion Gap 8 (5-15) Blood Urea Nitrogen 40 mg/dL (7-23) H Creatinine 1.0 mg/dL (0.5-0.9) H Estimat Glomerular Filtration Rate 54.8 mL/min (>60) Glucose Level 143 mg/dL (74-106) H Calcium Level 8.4 mg/dL (8.6-10.2) L Phosphorus Level 4.5 mg/dL (2.5-4.8) Magnesium Level 2.3 mg/dL (1.7-2.5) Total Bilirubin 0.8 mg/dL (0.0-1.2) Aspartate Amino Transf (AST/SGOT) 32 U/L (5-40) Alanine Aminotransferase (ALT/SGPT) 21 U/L (3-33) Alkaline Phosphatase 113 U/L (35-104) H Pro-B-Type Natriuretic Peptide 1691 pg/mL (0-125) H Total Protein 6.3 g/dL (6.6-8.7) L Albumin 2.4 g/dL (3.5-5.2) L Globulin 3.9 g/dL Albumin/Globulin Ratio 0.6 (1.0-2.7) L Amylase Level 145 U/L (10-110) H Lipase 73 U/L (< 60) H Arterial Blood pH 7.315 (7.350-7.450) Arterial Blood Partial Pressure CO2 100.3 mmHg (35.0-45.0) *H Arterial Blood Partial Pressure O2 82.9 mmHg (75.0-100.0) Arterial Blood HCO3 49.9 mmol/L (22.0-26.0) H Arterial Blood Oxygen Saturation 94.7 % (92.0-98.0) Arterial Blood Base Excess 20.4 Ok Test Positive TONY BRIDGES Dec 30, 2016 10:44
--- NOTE | 2016-12-30 11:33 | General Progress Note ---
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 2014 s/p mechanical assembler Mirtral Vavle prosthesis on anticoagulation Pulmonary HTN HypoAlbuminemia Plan: Optimize cardiac status weaning in process Adjust pulmonary status- Per GI / Surgery Keep BP under control Avoid nephrotoxics K supplement as needed monitor renal parameters Subjective ROS Limited/Unobtainable: Yes Allergies: Coded Allergies: No Known Allergies (Unverified , 09/28/14) Objective Last 24 Hour Vital Signs Date Time Temp Pulse Resp B/P Pulse Ox O2 Delivery O2 Flow Rate FiO2 12/30/16 11:00 69 19 117/36 96 Mechanical Ventilator 40 12/30/16 10:34 60 24 40 12/30/16 10:00 76 20 132/38 96 Mechanical Ventilator 40 12/30/16 09:30 40 12/30/16 09:00 75 20 127/45 97 Mechanical Ventilator 40 12/30/16 08:59 90 130/46 12/30/16 08:58 130/46 12/30/16 08:50 74 20 40 12/30/16 08:49 100 12/30/16 08:00 89 12/30/16 08:00 98.1 80 18 130/46 98 Mechanical Ventilator 40 12/30/16 08:00 40 12/30/16 07:24 94 26 40 12/30/16 07:00 75 18 115/42 99 Mechanical Ventilator 40 12/30/16 06:00 73 18 135/53 100 Mechanical Ventilator 40 12/30/16 05:24 126/39 12/30/16 05:00 79 16 126/39 100 Mechanical Ventilator 40 12/30/16 04:56 80 24 40 12/30/16 04:00 67 12/30/16 04:00 98.3 79 19 124/38 99 Mechanical Ventilator 40 12/30/16 04:00 40 12/30/16 03:00 71 18 124/38 100 Mechanical Ventilator 40 12/30/16 02:35 77 21 40 12/30/16 02:00 71 20 125/37 100 Mechanical Ventilator 40 12/30/16 01:00 75 23 112/34 100 Mechanical Ventilator 40 12/30/16 00:50 81 14 40 12/30/16 00:00 77 12/30/16 00:00 98.1 78 17 126/34 99 Mechanical Ventilator 40 12/30/16 00:00 40 12/29/16 23:00 82 18 136/49 99 Mechanical Ventilator 40 12/29/16 22:42 80 14 40 12/29/16 22:00 83 18 129/47 99 Mechanical Ventilator 40 12/29/16 21:14 78 128/41 12/29/16 21:00 85 19 128/41 99 Mechanical Ventilator 40 12/29/16 20:31 92 19 40 12/29/16 20:00 94 12/29/16 20:00 40 12/29/16 20:00 98.3 88 19 126/51 99 Mechanical Ventilator 40 12/29/16 19:00 93 21 140/65 99 Mechanical Ventilator 40 12/29/16 18:36 95 16 40 12/29/16 18:08 151/61 12/29/16 18:07 151/56 12/29/16 18:00 98 20 151/56 98 Mechanical Ventilator 40 12/29/16 17:16 95 16 40 12/29/16 17:00 105 22 149/97 98 Mechanical Ventilator 40 12/29/16 16:00 102 12/29/16 16:00 40 12/29/16 16:00 98.5 100 24 159/59 97 Mechanical Ventilator 40 12/29/16 15:29 84 15 40 12/29/16 15:00 105 22 149/58 97 Mechanical Ventilator 40 12/29/16 14:55 98.1 12/29/16 14:00 102 26 153/57 98 Mechanical Ventilator 35 12/29/16 13:55 40 12/29/16 13:55 40 12/29/16 13:04 97 21 35 12/29/16 13:00 100 24 156/55 98 Mechanical Ventilator 35 12/29/16 13:00 40 12/29/16 12:06 151/55 12/29/16 12:00 99 12/29/16 12:00 98.1 99 22 151/55 97 Mechanical Ventilator 35 Intake and Output 12/29/16 12/30/16 19:00 07:00 Intake Total 1226.8 ml 1806.8 ml Output Total 990 ml 490 ml Balance 236.8 ml 1316.8 ml Free Water 200 ml 200 ml IV Total 396.8 ml 946.8 ml Tube Feeding 600 ml 600 ml Other 30 ml 60 ml Output Urine Total 990 ml 490 ml # Bowel Movements 7 2 Laboratory Tests 12/30/16 04:30: White Blood Count 11.3H, Red Blood Count 2.68L, Hemoglobin 8.0L, Hematocrit 26.4L, Mean Corpuscular Volume 99, Mean Corpuscular Hemoglobin 30.0, Mean Corpuscular Hemoglobin Concent 30.4L, Red Cell Distribution Width 16.9H, Platelet Count 275, Mean Platelet Volume 8.9, Neutrophils (%) (Auto) 72.8, Lymphocytes (%) (Auto) 14.5L, Monocytes (%) (Auto) 10.0, Eosinophils (%) (Auto) 2.0, Basophils (%) (Auto) 0.8, Activated Partial Thromboplast Time 92H, Sodium Level 154H, Potassium Level 3.4, Chloride Level 106, Carbon Dioxide Level 40H, Anion Gap 8, Blood Urea Nitrogen 40H, Creatinine 1.0H, Estimat Glomerular Filtration Rate 54.8, Glucose Level 143H, Calcium Level 8.4L, Phosphorus Level 4.5, Magnesium Level 2.3, Total Bilirubin 0.8, Aspartate Amino Transf (AST/SGOT ) 32, Alanine Aminotransferase (ALT/SGPT) 21, Alkaline Phosphatase 113H, Pro-B- Type Natriuretic Peptide 1691H, Total Protein 6.3L, Albumin 2.4L, Globulin 3.9, Albumin/Globulin Ratio 0.6L, Amylase Level 145H, Lipase 73H 12/30/16 08:00: Arterial Blood pH 7.315L, Arterial Blood Partial Pressure CO2 100.3*H, Arterial Blood Partial Pressure O2 82.9, Arterial Blood HCO3 49.9H, Arterial Blood Oxygen Saturation 94.7, Arterial Blood Base Excess 20.4, Ok Test Positive Height (Feet): 5 Height (Inches): 1.00 Weight (Pounds): 145 General Appearance: no apparent distress Cardiovascular: normal rate Respiratory/Chest: decreased breath sounds Abdomen: soft Objective other PE not changed KAMINI SNOW Dec 30, 2016 11:33
--- NOTE | 2016-12-30 12:56 | General Progress Note ---
Progress Note Progress Note Afebrile, more alert, unable to wean thus far. Lungs: clear Abdomen: soft, non-tender. No masses Will stand by if trach is necessary. No GB surgery at this time. SHANICE CALABRESE Dec 30, 2016 12:56
[2016-12-30] MEDS ORDERED: LORazepam Inj 2mg/ml 1ml IV PRN (14:00)
--- NOTE | 2016-12-30 16:20 | Cardiology Progress Note ---
Assessment/Plan Assessment/Plan chf / fluid overload respiratory acidosis pancreattiis s/ bioprosthetic AV replacement 2014 s/p salvage mechanic mitral valve prosthesis on anticoagulation perm afib on anticoagulation with Coumadin coagulopathy now elevated due to med interaction adn disease process leukocytosis ARF intra abd hematomas brbpr hypernatremia now dark brown, per rn is less than yest good urine output in response to lasix ct performed 12/24/2016 showed multi hematomas in barber bd cavity on heparin repeat cbc daily d/w rn bp med adjusmtnet to keep sbp close to meme 120-'s repeat echo note lv fxn normal , as( high gradient despite recent avr ), mvr , pulm htn dr العراقي dcd free water iv now on free water via ngtube will decrease lasix to daily abg noted respirator y acidosis on simv 4 cxr reviewed personally d/w dr marx yest extensively discussed with several family member about the possible need for trach i am hopping temp basis may need prbc tx , is on heparin for mech heart valve Subjective ROS Limited/Unobtainable: Yes Subjective on the vent , sedated after recieving ativan for agitation post fialed simv trial at 4 Objective Last 24 Hour Vital Signs Date Time Temp Pulse Resp B/P Pulse Ox O2 Delivery O2 Flow Rate FiO2 12/30/16 16:00 62 16 121/31 100 Mechanical Ventilator 40 12/30/16 15:24 65 16 40 12/30/16 15:00 62 18 115/37 100 Mechanical Ventilator 40 12/30/16 14:00 65 18 120/35 100 Mechanical Ventilator 40 12/30/16 13:00 69 19 125/35 97 Mechanical Ventilator 40 12/30/16 13:00 67 23 40 12/30/16 13:00 40 12/30/16 12:00 40 12/30/16 12:00 98.5 71 21 123/41 98 Mechanical Ventilator 40 12/30/16 12:00 69 12/30/16 11:00 69 19 117/36 96 Mechanical Ventilator 40 12/30/16 10:34 60 24 40 12/30/16 10:00 76 20 132/38 96 Mechanical Ventilator 40 12/30/16 09:30 40 12/30/16 09:00 75 20 127/45 97 Mechanical Ventilator 40 12/30/16 08:59 90 130/46 12/30/16 08:58 130/46 12/30/16 08:50 74 20 40 12/30/16 08:49 100 12/30/16 08:00 89 12/30/16 08:00 98.1 80 18 130/46 98 Mechanical Ventilator 40 12/30/16 08:00 40 12/30/16 07:24 94 26 40 12/30/16 07:00 75 18 115/42 99 Mechanical Ventilator 40 12/30/16 06:00 73 18 135/53 100 Mechanical Ventilator 40 12/30/16 05:24 126/39 12/30/16 05:00 79 16 126/39 100 Mechanical Ventilator 40 12/30/16 04:56 80 24 40 12/30/16 04:00 67 12/30/16 04:00 98.3 79 19 124/38 99 Mechanical Ventilator 40 12/30/16 04:00 40 12/30/16 03:00 71 18 124/38 100 Mechanical Ventilator 40 12/30/16 02:35 77 21 40 12/30/16 02:00 71 20 125/37 100 Mechanical Ventilator 40 12/30/16 01:00 75 23 112/34 100 Mechanical Ventilator 40 12/30/16 00:50 81 14 40 12/30/16 00:00 77 12/30/16 00:00 98.1 78 17 126/34 99 Mechanical Ventilator 40 12/30/16 00:00 40 12/29/16 23:00 82 18 136/49 99 Mechanical Ventilator 40 12/29/16 22:42 80 14 40 12/29/16 22:00 83 18 129/47 99 Mechanical Ventilator 40 12/29/16 21:14 78 128/41 12/29/16 21:00 85 19 128/41 99 Mechanical Ventilator 40 12/29/16 20:31 92 19 40 12/29/16 20:00 94 12/29/16 20:00 40 12/29/16 20:00 98.3 88 19 126/51 99 Mechanical Ventilator 40 12/29/16 19:00 93 21 140/65 99 Mechanical Ventilator 40 12/29/16 18:36 95 16 40 12/29/16 18:08 151/61 12/29/16 18:07 151/56 12/29/16 18:00 98 20 151/56 98 Mechanical Ventilator 40 12/29/16 17:16 95 16 40 12/29/16 17:00 105 22 149/97 98 Mechanical Ventilator 40 General Appearance: on vent, other - sleepy post sedative Neck: supple Cardiovascular: irregularly irregular, other - mecahanical Respiratory/Chest: lungs clear Abdomen: non tender, soft Extremities: non-tender, normal inspection, severe edema Intake and Output 12/29/16 12/30/16 19:00 07:00 Intake Total 1226.8 ml 1806.8 ml Output Total 990 ml 490 ml Balance 236.8 ml 1316.8 ml Free Water 200 ml 200 ml IV Total 396.8 ml 946.8 ml Tube Feeding 600 ml 600 ml Other 30 ml 60 ml Output Urine Total 990 ml 490 ml # Bowel Movements 7 2 Laboratory Tests Test 12/30/16 04:30 12/30/16 08:00 White Blood Count 11.3 K/UL (4.8-10.8) H Red Blood Count 2.68 M/UL (4.20-5.40) L Hemoglobin 8.0 G/DL (12.0-16.0) L Hematocrit 26.4 % (37.0-47.0) L Mean Corpuscular Volume 99 FL (80-99) Mean Corpuscular Hemoglobin 30.0 PG (27.0-31.0) Mean Corpuscular Hemoglobin Concent 30.4 G/DL (32.0-36.0) L Red Cell Distribution Width 16.9 % (11.6-14.8) H Platelet Count 275 K/UL (150-450) Mean Platelet Volume 8.9 FL (6.5-10.1) Neutrophils (%) (Auto) 72.8 % (45.0-75.0) Lymphocytes (%) (Auto) 14.5 % (20.0-45.0) L Monocytes (%) (Auto) 10.0 % (1.0-10.0) Eosinophils (%) (Auto) 2.0 % (0.0-3.0) Basophils (%) (Auto) 0.8 % (0.0-2.0) Activated Partial Thromboplast Time 92 SEC (23-33) H Sodium Level 154 mEQ/L (135-145) H Potassium Level 3.4 mEQ/L (3.4-4.9) Chloride Level 106 mEQ/L (98-107) Carbon Dioxide Level 40 mEQ/L (20-30) H Anion Gap 8 (5-15) Blood Urea Nitrogen 40 mg/dL (7-23) H Creatinine 1.0 mg/dL (0.5-0.9) H Estimat Glomerular Filtration Rate 54.8 mL/min (>60) Glucose Level 143 mg/dL (74-106) H Calcium Level 8.4 mg/dL (8.6-10.2) L Phosphorus Level 4.5 mg/dL (2.5-4.8) Magnesium Level 2.3 mg/dL (1.7-2.5) Total Bilirubin 0.8 mg/dL (0.0-1.2) Aspartate Amino Transf (AST/SGOT) 32 U/L (5-40) Alanine Aminotransferase (ALT/SGPT) 21 U/L (3-33) Alkaline Phosphatase 113 U/L (35-104) H Pro-B-Type Natriuretic Peptide 1691 pg/mL (0-125) H Total Protein 6.3 g/dL (6.6-8.7) L Albumin 2.4 g/dL (3.5-5.2) L Globulin 3.9 g/dL Albumin/Globulin Ratio 0.6 (1.0-2.7) L Amylase Level 145 U/L (10-110) H Lipase 73 U/L (< 60) H Arterial Blood pH 7.315 (7.350-7.450) Arterial Blood Partial Pressure CO2 100.3 mmHg (35.0-45.0) *H Arterial Blood Partial Pressure O2 82.9 mmHg (75.0-100.0) Arterial Blood HCO3 49.9 mmol/L (22.0-26.0) H Arterial Blood Oxygen Saturation 94.7 % (92.0-98.0) Arterial Blood Base Excess 20.4 Ok Test Positive ANNE RAM Dec 30, 2016 16:20
[2016-12-31] VITALS (24 sets, daily range): BP systolic 123–159; BP diastolic 34–58
[2016-12-31] MEDS: Heparin 25,000u/D5W 500ml 500 ML IV SCH ×3 (03:45→21:25)
[2016-12-31 05:49] LABS: MEAN CORPUSCULAR HEMOGLOBIN 30.2 PG (27.0-31.0); MEAN CORPUSCULAR HGB CONC 30.7 G/DL (32.0-36.0); MEAN CORPUSCULAR VOLUME 98 FL (80-99); MEAN PLATELET VOLUME 9.3 FL (6.5-10.1); PLATELET COUNT 248 K/UL (150-450); RED CELL DISTRIBUTION WIDTH 18.3 % (11.6-14.8); WHITE BLOOD COUNT 11.8 K/UL (4.8-10.8)
[2016-12-31 06:03] LABS: INR 1.1 (0.9-1.1)
[2016-12-31 06:19] LABS: ALANINE AMINOTRANSFERASE 18 U/L (3-33); ALBUMIN/GLOBULIN RATIO 0.5 (1.0-2.7); ANION GAP 8 (5-15); ASPARTATE AMINO TRANSFERASE 27 U/L (5-40); CALCIUM 8.6 mg/dL (8.6-10.2); CARBON DIOXIDE 40 mEQ/L (20-30); CHLORIDE 104 mEQ/L (98-107); CREATININE 0.9 mg/dL (0.5-0.9); GLOMERULAR FILTRATION RATE > 60 mL/min (>60); HEMOLYSIS 4; MAGNESIUM 2.3 mg/dL (1.7-2.5); PHOSPHORUS 3.4 mg/dL (2.5-4.8); POTASSIUM 2.9 mEQ/L (3.4-4.9); SODIUM 152 mEQ/L (135-145); TOTAL PROTEIN 6.3 g/dL (6.6-8.7)
[2016-12-31] MEDS: NovoLOG Insulin Flexpen SUBQ SCH ×3 (06:25→17:21)
[2016-12-31 06:27] LABS: CRP QUANT 5.2 mg/dL (< 0.5); URIC ACID 7.2 mg/dL (3.0-7.5)
[2016-12-31] MEDS ORDERED: Heparin 5000 units/ml inj IV ONE (06:45)
[2016-12-31] MEDS: METOLAZONE 2.5 MG ORAL SCH (07:58)
[2016-12-31 08:52] LABS: BAND NEUTROPHILS % (MANUAL) 0 % (0-8); BASOPHILS % (MANUAL) 0 % (0-2); EOSINOPHILS % (MANUAL) 1 % (0-3); LYMPHOCYTES % (MANUAL) 19 % (20-45); NEUTROPHILS % (MANUAL) 70 % (45-75); PLATELET ESTIMATE ADEQUATE; PLATELET MORPHOLOGY NORMAL; TOTAL CELLS COUNTED 100
[2016-12-31] MEDS: Lisinopril 10mg tab ORAL SCH (08:52)
[2016-12-31] MEDS: Pantoprazole Inj IVP SCH (08:52)
[2016-12-31 08:53] LABS: ANISOCYTOSIS 1+; HYPOCHROMASIA 1+
[2016-12-31] MEDS: Sucralfate 1gm tab ORAL SCH ×4 (08:53→21:18)
[2016-12-31] MEDS: Anusol HC Supp RECTAL SCH (08:53)
[2016-12-31] MEDS ORDERED: Pantoprazole 40mg pkt GT SCH (09:00)
[2016-12-31] MEDS ORDERED: Tubing IV Secondary IV ONE (09:51)
--- NOTE | 2016-12-31 10:51 | Pulmonolgy Critical Care Note ---
Critical Care - Asmt/Plan Problems: (1) Respiratory failure requiring intubation (2) Sepsis (3) Pancreatitis (4) ATN (acute tubular necrosis) (5) Atrial fibrillation Respiratory: adjust tidal volume, monitor respiratory rate, adjust FIO2 Cardiac: continue to monitor HR/BP Renal: F/U I&O, keep IV fluid, check electrolytes Infectious Disease: check cultures, continue antibiotics Gastrointestinal: continue feedings/current rate Endocrine: monitor blood sugar, check HgA1C, continue sliding scale insulin Hematologic: monitor H/H, transfuse if hgb<8.5 Neurologic: PRN Ativan, PRN Morphine, keep patient comfortable Affect: PRN ativan Prophylaxis: Protonix Notes 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, 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 Discussed with: nurses, consultants, case consultantpassenger service manager - Objective Last 24 Hour Vital Signs Date Time Temp Pulse Resp B/P Pulse Ox O2 Delivery O2 Flow Rate FiO2 12/31/16 10:00 86 16 159/46 98 Mechanical Ventilator 40 12/31/16 09:00 69 16 123/34 100 Mechanical Ventilator 40 12/31/16 08:53 72 150/45 12/31/16 08:52 150/45 12/31/16 08:50 72 22 40 12/31/16 08:50 100 12/31/16 08:00 40 12/31/16 08:00 98.5 63 18 150/45 100 Mechanical Ventilator 40 12/31/16 08:00 65 12/31/16 07:00 72 16 150/38 100 Mechanical Ventilator 40 12/31/16 06:30 86 18 40 12/31/16 06:00 84 19 133/42 100 Mechanical Ventilator 40 12/31/16 05:00 79 19 154/42 100 Mechanical Ventilator 40 12/31/16 04:54 72 18 40 12/31/16 04:00 63 12/31/16 04:00 98.1 78 19 141/47 100 Mechanical Ventilator 40 12/31/16 04:00 40 12/31/16 03:02 85 16 40 12/31/16 03:00 73 19 156/52 100 Mechanical Ventilator 40 12/31/16 02:00 73 20 134/39 100 Mechanical Ventilator 40 12/31/16 01:00 77 30 125/57 98 Mechanical Ventilator 40 12/31/16 00:40 80 21 40 12/31/16 00:00 76 12/31/16 00:00 40 12/31/16 00:00 98.3 81 20 150/39 99 Mechanical Ventilator 40 12/30/16 23:00 77 19 125/34 99 Mechanical Ventilator 40 12/30/16 22:30 102 24 40 12/30/16 22:00 76 19 148/53 100 Mechanical Ventilator 40 12/30/16 21:00 40 12/30/16 21:00 76 19 143/51 100 Mechanical Ventilator 40 12/30/16 20:56 76 20 40 12/30/16 20:49 72 121/39 12/30/16 20:00 98.1 82 16 121/39 100 Mechanical Ventilator 40 12/30/16 20:00 70 12/30/16 19:00 75 18 118/32 100 Mechanical Ventilator 40 12/30/16 18:45 40 12/30/16 18:35 63 19 40 12/30/16 18:00 62 17 112/39 100 Mechanical Ventilator 40 12/30/16 17:29 82 19 40 12/30/16 17:00 72 17 134/64 100 Mechanical Ventilator 40 12/30/16 16:00 98.1 62 16 121/31 100 Mechanical Ventilator 40 12/30/16 16:00 62 12/30/16 16:00 40 12/30/16 15:24 65 16 40 12/30/16 15:00 62 18 115/37 100 Mechanical Ventilator 40 12/30/16 14:00 65 18 120/35 100 Mechanical Ventilator 40 12/30/16 13:00 69 19 125/35 97 Mechanical Ventilator 40 12/30/16 13:00 67 23 40 12/30/16 13:00 40 12/30/16 12:00 40 12/30/16 12:00 98.5 71 21 123/41 98 Mechanical Ventilator 40 12/30/16 12:00 69 12/30/16 11:00 69 19 117/36 96 Mechanical Ventilator 40 Status: awake, sedated Condition: critical HEENT: atraumatic Neck: full ROM Lungs: clear Heart: HR/BP stable, HR/BP unstable Abdomen: soft, non-tender, active bowel sounds Extremities: no C/C/E, edema Accucheck: 141 Critical Care - Subjective ROS Limited/Unobtainable: Yes ICU Day: 13 Condition: critical FI02: 40 Vent Support Breath Rate: 14 Vent Support Mode: IMV/SIMV Vent Tidal Volume: 500 Sputum Amount: Moderate PEEP: 5.0 PIP: 37 Tube Feeding Amount: 50 I&O: Intake and Output 12/30/16 12/31/16 19:00 07:00 Intake Total 1347.151 ml 1109.899 ml Output Total 1350 ml 1175 ml Balance -2.849 ml -65.101 ml Free Water 200 ml 100 ml IV Total 547.151 ml 349.899 ml Tube Feeding 600 ml 600 ml Other 60 ml Output Urine Total 1350 ml 1175 ml # Bowel Movements 1 3 CXR: no change, ET tube in place ET-Tube: 7.5 ET Position: 22 Labs: Laboratory Tests Test 12/31/16 04:25 White Blood Count 11.8 K/UL (4.8-10.8) H Red Blood Count 2.60 M/UL (4.20-5.40) L Hemoglobin 7.8 G/DL (12.0-16.0) L Hematocrit 25.6 % (37.0-47.0) L Mean Corpuscular Volume 98 FL (80-99) Mean Corpuscular Hemoglobin 30.2 PG (27.0-31.0) Mean Corpuscular Hemoglobin Concent 30.7 G/DL (32.0-36.0) L Red Cell Distribution Width 18.3 % (11.6-14.8) H Platelet Count 248 K/UL (150-450) Mean Platelet Volume 9.3 FL (6.5-10.1) Neutrophils (%) (Auto) % (45.0-75.0) Lymphocytes (%) (Auto) % (20.0-45.0) Monocytes (%) (Auto) % (1.0-10.0) Eosinophils (%) (Auto) % (0.0-3.0) Basophils (%) (Auto) % (0.0-2.0) Differential Total Cells Counted 100 Neutrophils % (Manual) 70 % (45-75) Lymphocytes % (Manual) 19 % (20-45) L Monocytes % (Manual) 10 % (1-10) Eosinophils % (Manual) 1 % (0-3) Basophils % (Manual) 0 % (0-2) Band Neutrophils 0 % (0-8) Platelet Estimate Adequate Platelet Morphology Normal Hypochromasia 1+ Anisocytosis 1+ Prothrombin Time 11.0 SEC (9.30-11.50) Prothromb Time International Ratio 1.1 (0.9-1.1) Activated Partial Thromboplast Time 64 SEC (23-33) H Sodium Level 152 mEQ/L (135-145) H Potassium Level 2.9 mEQ/L (3.4-4.9) L Chloride Level 104 mEQ/L (98-107) Carbon Dioxide Level 40 mEQ/L (20-30) H Anion Gap 8 (5-15) Blood Urea Nitrogen 38 mg/dL (7-23) H Creatinine 0.9 mg/dL (0.5-0.9) Estimat Glomerular Filtration Rate > 60 mL/min (>60) Glucose Level 139 mg/dL (74-106) H Uric Acid 7.2 mg/dL (3.0-7.5) Calcium Level 8.6 mg/dL (8.6-10.2) Phosphorus Level 3.4 mg/dL (2.5-4.8) Magnesium Level 2.3 mg/dL (1.7-2.5) Total Bilirubin 0.7 mg/dL (0.0-1.2) Gamma Glutamyl Transpeptidase 230 U/L (5-36) H Aspartate Amino Transf (AST/SGOT) 27 U/L (5-40) Alanine Aminotransferase (ALT/SGPT) 18 U/L (3-33) Alkaline Phosphatase 122 U/L (35-104) H Total Creatine Kinase 14 U/L (26-140) L C-Reactive Protein, Quantitative 5.2 mg/dL (< 0.5) H Pro-B-Type Natriuretic Peptide 1156 pg/mL (0-125) H Total Protein 6.3 g/dL (6.6-8.7) L Albumin 2.3 g/dL (3.5-5.2) L Globulin 4.0 g/dL Albumin/Globulin Ratio 0.5 (1.0-2.7) L Lipase 121 U/L (< 60) H TONY BRIDGES Dec 31, 2016 10:51
--- NOTE | 2016-12-31 11:28 | Diagnostic Imaging Report ---
Indication: SOB Technique: One view of the chest Comparison: 12/30/2016 Findings: Again demonstrated is diffuse bilateral interstitial and alveolar pulmonary parenchymal disease. Heart remains enlarged. Atelectasis or scarring is seen within left lower lung. Stable satisfactory positions of endotracheal and nasogastric tubes, left arm PICC. Findings are unchanged Impression: Unchanged, over one day, findings as above.
--- NOTE | 2016-12-31 11:47 | GI Progress Note ---
Assessment/Plan Problems: (1) Pancreatitis ICD Codes: K85.9 - Acute pancreatitis, unspecified SNOMED: 61754292 Qualifiers: Qualified Codes: K85.10 - Biliary acute pancreatitis without necrosis or infection (2) Abdominal pain ICD Codes: R10.9 - Unspecified abdominal pain SNOMED: 68018607, 005000919 (3) Iron deficiency anemia ICD Codes: D50.9 - Iron deficiency anemia, unspecified SNOMED: 41223224 (4) Colon polyp ICD Codes: K63.5 - Polyp of colon SNOMED: 13241851 Status: unchanged Status Narrative Discussed with Dr. Gipson. Assessment/Plan Assessment Pancreatitis - resolving, but abdomen still very distended cholelithiasis, no e/o choledocholithiasis Leukocytosis improving Respiratory failure Azotemia improving Anemia colon polyp fu CT >> New finding of a 6 x 4.4 x 4.9 cm masslike lesion in the left paracolic gutter, which compresses and splays but does not appear to obstruct an adjacent small bowel loop, see full report. GB surgery on hold Assessment/Plan NGTFs per dietary abx monitor H&H, transfuse prn ppi + cararate monitor amylase/lipase follow labs supportive care possible trach >> PEG if family agrees Subjective Subjective limited Objective Last 24 Hour Vital Signs Date Time Temp Pulse Resp B/P Pulse Ox O2 Delivery O2 Flow Rate FiO2 12/31/16 10:50 78 21 40 12/31/16 10:00 86 16 159/46 98 Mechanical Ventilator 40 12/31/16 09:00 69 16 123/34 100 Mechanical Ventilator 40 12/31/16 08:53 72 150/45 12/31/16 08:52 150/45 12/31/16 08:50 72 22 40 12/31/16 08:50 100 12/31/16 08:00 40 12/31/16 08:00 98.5 63 18 150/45 100 Mechanical Ventilator 40 12/31/16 08:00 65 12/31/16 07:00 72 16 150/38 100 Mechanical Ventilator 40 12/31/16 06:30 86 18 40 12/31/16 06:00 84 19 133/42 100 Mechanical Ventilator 40 12/31/16 05:00 79 19 154/42 100 Mechanical Ventilator 40 12/31/16 04:54 72 18 40 12/31/16 04:00 63 4/24/17 04:00 98.1 78 19 141/47 100 Mechanical Ventilator 40 12/31/16 04:00 40 12/31/16 03:02 85 16 40 12/31/16 03:00 73 19 156/52 100 Mechanical Ventilator 40 12/31/16 02:00 73 20 134/39 100 Mechanical Ventilator 40 12/31/16 01:00 77 30 125/57 98 Mechanical Ventilator 40 12/31/16 00:40 80 21 40 12/31/16 00:00 76 12/31/16 00:00 40 12/31/16 00:00 98.3 81 20 150/39 99 Mechanical Ventilator 40 12/30/16 23:00 77 19 125/34 99 Mechanical Ventilator 40 12/30/16 22:30 102 24 40 12/30/16 22:00 76 19 148/53 100 Mechanical Ventilator 40 12/30/16 21:00 40 12/30/16 21:00 76 19 143/51 100 Mechanical Ventilator 40 12/30/16 20:56 76 20 40 12/30/16 20:49 72 121/39 12/30/16 20:00 98.1 82 16 121/39 100 Mechanical Ventilator 40 12/30/16 20:00 70 12/30/16 19:00 75 18 118/32 100 Mechanical Ventilator 40 12/30/16 18:45 40 12/30/16 18:35 63 19 40 12/30/16 18:00 62 17 112/39 100 Mechanical Ventilator 40 12/30/16 17:29 82 19 40 12/30/16 17:00 72 17 134/64 100 Mechanical Ventilator 40 12/30/16 16:00 98.1 62 16 121/31 100 Mechanical Ventilator 40 12/30/16 16:00 62 12/30/16 16:00 40 12/30/16 15:24 65 16 40 12/30/16 15:00 62 18 115/37 100 Mechanical Ventilator 40 12/30/16 14:00 65 18 120/35 100 Mechanical Ventilator 40 12/30/16 13:00 69 19 125/35 97 Mechanical Ventilator 40 12/30/16 13:00 67 23 40 12/30/16 13:00 40 12/30/16 12:00 40 12/30/16 12:00 98.5 71 21 123/41 98 Mechanical Ventilator 40 12/30/16 12:00 69 Intake and Output 12/30/16 12/31/16 19:00 07:00 Intake Total 1347.151 ml 1109.899 ml Output Total 1350 ml 1175 ml Balance -2.849 ml -65.101 ml Free Water 200 ml 100 ml IV Total 547.151 ml 349.899 ml Tube Feeding 600 ml 600 ml Other 60 ml Output Urine Total 1350 ml 1175 ml # Bowel Movements 1 3 Laboratory Tests Test 12/31/16 04:25 White Blood Count 11.8 K/UL (4.8-10.8) H Red Blood Count 2.60 M/UL (4.20-5.40) L Hemoglobin 7.8 G/DL (12.0-16.0) L Hematocrit 25.6 % (37.0-47.0) L Mean Corpuscular Volume 98 FL (80-99) Mean Corpuscular Hemoglobin 30.2 PG (27.0-31.0) Mean Corpuscular Hemoglobin Concent 30.7 G/DL (32.0-36.0) L Red Cell Distribution Width 18.3 % (11.6-14.8) H Platelet Count 248 K/UL (150-450) Mean Platelet Volume 9.3 FL (6.5-10.1) Neutrophils (%) (Auto) % (45.0-75.0) Lymphocytes (%) (Auto) % (20.0-45.0) Monocytes (%) (Auto) % (1.0-10.0) Eosinophils (%) (Auto) % (0.0-3.0) Basophils (%) (Auto) % (0.0-2.0) Differential Total Cells Counted 100 Neutrophils % (Manual) 70 % (45-75) Lymphocytes % (Manual) 19 % (20-45) L Monocytes % (Manual) 10 % (1-10) Eosinophils % (Manual) 1 % (0-3) Basophils % (Manual) 0 % (0-2) Band Neutrophils 0 % (0-8) Platelet Estimate Adequate Platelet Morphology Normal Hypochromasia 1+ Anisocytosis 1+ Prothrombin Time 11.0 SEC (9.30-11.50) Prothromb Time International Ratio 1.1 (0.9-1.1) Activated Partial Thromboplast Time 64 SEC (23-33) H Sodium Level 152 mEQ/L (135-145) H Potassium Level 2.9 mEQ/L (3.4-4.9) L Chloride Level 104 mEQ/L (98-107) Carbon Dioxide Level 40 mEQ/L (20-30) H Anion Gap 8 (5-15) Blood Urea Nitrogen 38 mg/dL (7-23) H Creatinine 0.9 mg/dL (0.5-0.9) Estimat Glomerular Filtration Rate > 60 mL/min (>60) Glucose Level 139 mg/dL (74-106) H Uric Acid 7.2 mg/dL (3.0-7.5) Calcium Level 8.6 mg/dL (8.6-10.2) Phosphorus Level 3.4 mg/dL (2.5-4.8) Magnesium Level 2.3 mg/dL (1.7-2.5) Total Bilirubin 0.7 mg/dL (0.0-1.2) Gamma Glutamyl Transpeptidase 230 U/L (5-36) H Aspartate Amino Transf (AST/SGOT) 27 U/L (5-40) Alanine Aminotransferase (ALT/SGPT) 18 U/L (3-33) Alkaline Phosphatase 122 U/L (35-104) H Total Creatine Kinase 14 U/L (26-140) L C-Reactive Protein, Quantitative 5.2 mg/dL (< 0.5) H Pro-B-Type Natriuretic Peptide 1156 pg/mL (0-125) H Total Protein 6.3 g/dL (6.6-8.7) L Albumin 2.3 g/dL (3.5-5.2) L Globulin 4.0 g/dL Albumin/Globulin Ratio 0.5 (1.0-2.7) L Lipase 121 U/L (< 60) H Height (Feet): 5 Height (Inches): 1.00 Weight (Pounds): 145 General Appearance: no apparent distress, alert Cardiovascular: normal rate Respiratory/Chest: other - mech vent Abdominal Exam: other - NGT Objective Service Date: 12/11/16 Procedure: MRI Abdomen no Contrast Indication: Abdominal pain, possible pancreatitis Findings: Multiple calcifications are seen within the gallbladder. There is a ductal structure cephalad to the gallbladder which contains a filling defect. This is probably the cystic duct, but could be an extrahepatic bile duct, and it is uncertain which of these is. The gallbladder wall is not thickened. The extrahepatic bile ducts are ectatic, with the common bile duct measuring up to 9 mm diameter , but no downstream filling defects are demonstrated. The common bile duct terminates abruptly at the level of the ampulla. The pancreatic duct is mildly ectatic, measuring 3-4 mm in diameter. No intraluminal filling defects are demonstrated. A 7 mm fluid signal lesion is seen within the uncinate process of the pancreas. This may actually be a duodenal diverticulum which is seen on the recent CT scan. There is apparent swelling of the pancreas and considerable free intraperitoneal fluid. No free intraperitoneal fluid presumably increased from the prior CT scan. There are dilated small bowel loops, likely indicating ileus. The liver is unremarkable. The adrenals and kidneys are unremarkable. There are bilateral small pleural effusions. The spleen is unremarkable. The heart is enlarged Impression: Cholelithiasis. There is also a calculus within the duct adjacent to the gallbladder which is probably the cystic duct but could be an extrahepatic bile duct. Extrahepatic and central intrahepatic biliary ductal mild dilatation. No definite downstream calculus or pancreatic head mass to account for this, however. Prominence and edema of the pancreas, better visualized on prior CT scan, consistent with acute pancreatitis, also previously described Ascites fluid, increased from the prior CT scan, likely secondary to the acute pancreatitis Dilated small bowel loops, new since prior CT study. Suspect representing ileus related to the pancreatitis Bilateral small pleural effusions Small cystic lesion within the as a process. Suspect that this is actually the duodenal diverticulum described on recent CT scan, but could represent a tiny pseudocyst or intraductal papillary mucinous neoplasm. Cardiomegaly Lulu Dominguez N.P. Dec 31, 2016 11:47
--- NOTE | 2016-12-31 12:25 | Infectious Diseases Prog Note ---
Assessment/Plan Assessment/Plan ASSESSMENT: Pancreatitis recurrent CT: Findings compatible with marked worsening of acute pancreatitis MRCP : Cholelithiasis. There is also a calculus within the duct adjacent to the gallbladder Pancreatic Enzymes improving CT of Abd : reviewed Leukocytosis ( SIRS ) mild SP cholelithiasis : US of liver : Incidental finding of cholelithiasis and mild gallbladder wall thickening positive sonographic Diaz's sign LFT : Nl UTI : Mandy SCx : Mandy ( colonizer ) VDRF: Cxray : Increase in bilateral congestive changes with persistent small right , probable new left pleural effusions ARF SP aortic stenosis mitral stenosis status post mitral valve replacement AFib Pulmonary hypertension PLAN: - monitor pt off of Ab Rx ( 12/28 SP Diflucan d# 10 ) ( 12/24 SP Merrem d# 14 /14 ) - monitor CBC, temperatures, - monitor LFT - GI f/u - Sx is following for possible Cholecystectomy later - VDRF - possible trach Subjective Constitutional: Denies: anorexia, chills, drenching sweats, fatigue, fever, no symptoms, other Allergies: Coded Allergies: No Known Allergies (Unverified , 09/28/14) Subjective on Vent Objective Vital Signs Last 24 Hour Vital Signs Date Time Temp Pulse Resp B/P Pulse Ox O2 Delivery O2 Flow Rate FiO2 12/31/16 12:00 40 12/31/16 12:00 98.2 86 17 128/50 100 Mechanical Ventilator 40 12/31/16 12:00 82 12/31/16 11:00 85 17 143/51 98 Mechanical Ventilator 40 12/31/16 10:50 78 21 40 12/31/16 10:00 86 16 159/46 98 Mechanical Ventilator 40 12/31/16 10:00 40 12/31/16 09:00 69 16 123/34 100 Mechanical Ventilator 40 12/31/16 08:53 72 150/45 12/31/16 08:52 150/45 12/31/16 08:50 72 22 40 12/31/16 08:50 100 12/31/16 08:00 40 12/31/16 08:00 98.5 63 18 150/45 100 Mechanical Ventilator 40 12/31/16 08:00 65 12/31/16 07:00 72 16 150/38 100 Mechanical Ventilator 40 12/31/16 06:30 86 18 40 12/31/16 06:00 84 19 133/42 100 Mechanical Ventilator 40 12/31/16 05:00 79 19 154/42 100 Mechanical Ventilator 40 12/31/16 04:54 72 18 40 12/31/16 04:00 63 12/31/16 04:00 98.1 78 19 141/47 100 Mechanical Ventilator 40 12/31/16 04:00 40 12/31/16 03:02 85 16 40 12/31/16 03:00 73 19 156/52 100 Mechanical Ventilator 40 12/31/16 02:00 73 20 134/39 100 Mechanical Ventilator 40 12/31/16 01:00 77 30 125/57 98 Mechanical Ventilator 40 12/31/16 00:40 80 21 40 12/31/16 00:00 76 12/31/16 00:00 40 12/31/16 00:00 98.3 81 20 150/39 99 Mechanical Ventilator 40 12/30/16 23:00 77 19 125/34 99 Mechanical Ventilator 40 12/30/16 22:30 102 24 40 12/30/16 22:00 76 19 148/53 100 Mechanical Ventilator 40 12/30/16 21:00 40 12/30/16 21:00 76 19 143/51 100 Mechanical Ventilator 40 12/30/16 20:56 76 20 40 12/30/16 20:49 72 121/39 12/30/16 20:00 98.1 82 16 121/39 100 Mechanical Ventilator 40 12/30/16 20:00 70 12/30/16 19:00 75 18 118/32 100 Mechanical Ventilator 40 12/30/16 18:45 40 12/30/16 18:35 63 19 40 12/30/16 18:00 62 17 112/39 100 Mechanical Ventilator 40 12/30/16 17:29 82 19 40 12/30/16 17:00 72 17 134/64 100 Mechanical Ventilator 40 12/30/16 16:00 98.1 62 16 121/31 100 Mechanical Ventilator 40 12/30/16 16:00 62 12/30/16 16:00 40 12/30/16 15:24 65 16 40 12/30/16 15:00 62 18 115/37 100 Mechanical Ventilator 40 12/30/16 14:00 65 18 120/35 100 Mechanical Ventilator 40 12/30/16 13:00 69 19 125/35 97 Mechanical Ventilator 40 12/30/16 13:00 67 23 40 12/30/16 13:00 40 Height (Feet): 5 Height (Inches): 1.00 Weight (Pounds): 145 HEENT: atraumatic Respiratory/Chest: lungs clear Cardiovascular: regular rhythm Abdomen: no organomegaly Laboratory Tests Test 12/31/16 04:25 White Blood Count 11.8 K/UL (4.8-10.8) H Red Blood Count 2.60 M/UL (4.20-5.40) L Hemoglobin 7.8 G/DL (12.0-16.0) L Hematocrit 25.6 % (37.0-47.0) L Mean Corpuscular Volume 98 FL (80-99) Mean Corpuscular Hemoglobin 30.2 PG (27.0-31.0) Mean Corpuscular Hemoglobin Concent 30.7 G/DL (32.0-36.0) L Red Cell Distribution Width 18.3 % (11.6-14.8) H Platelet Count 248 K/UL (150-450) Mean Platelet Volume 9.3 FL (6.5-10.1) Neutrophils (%) (Auto) % (45.0-75.0) Lymphocytes (%) (Auto) % (20.0-45.0) Monocytes (%) (Auto) % (1.0-10.0) Eosinophils (%) (Auto) % (0.0-3.0) Basophils (%) (Auto) % (0.0-2.0) Differential Total Cells Counted 100 Neutrophils % (Manual) 70 % (45-75) Lymphocytes % (Manual) 19 % (20-45) L Monocytes % (Manual) 10 % (1-10) Eosinophils % (Manual) 1 % (0-3) Basophils % (Manual) 0 % (0-2) Band Neutrophils 0 % (0-8) Platelet Estimate Adequate Platelet Morphology Normal Hypochromasia 1+ Anisocytosis 1+ Prothrombin Time 11.0 SEC (9.30-11.50) Prothromb Time International Ratio 1.1 (0.9-1.1) Activated Partial Thromboplast Time 64 SEC (23-33) H Sodium Level 152 mEQ/L (135-145) H Potassium Level 2.9 mEQ/L (3.4-4.9) L Chloride Level 104 mEQ/L (98-107) Carbon Dioxide Level 40 mEQ/L (20-30) H Anion Gap 8 (5-15) Blood Urea Nitrogen 38 mg/dL (7-23) H Creatinine 0.9 mg/dL (0.5-0.9) Estimat Glomerular Filtration Rate > 60 mL/min (>60) Glucose Level 139 mg/dL (74-106) H Uric Acid 7.2 mg/dL (3.0-7.5) Calcium Level 8.6 mg/dL (8.6-10.2) Phosphorus Level 3.4 mg/dL (2.5-4.8) Magnesium Level 2.3 mg/dL (1.7-2.5) Total Bilirubin 0.7 mg/dL (0.0-1.2) Gamma Glutamyl Transpeptidase 230 U/L (5-36) H Aspartate Amino Transf (AST/SGOT) 27 U/L (5-40) Alanine Aminotransferase (ALT/SGPT) 18 U/L (3-33) Alkaline Phosphatase 122 U/L (35-104) H Total Creatine Kinase 14 U/L (26-140) L C-Reactive Protein, Quantitative 5.2 mg/dL (< 0.5) H Pro-B-Type Natriuretic Peptide 1156 pg/mL (0-125) H Total Protein 6.3 g/dL (6.6-8.7) L Albumin 2.3 g/dL (3.5-5.2) L Globulin 4.0 g/dL Albumin/Globulin Ratio 0.5 (1.0-2.7) L Lipase 121 U/L (< 60) H Current Medications Medications (Trade) Dose Ordered Sig/Lisbeth Route PRN Reason Start Time Stop Time Status Last Admin Dose Admin Acetaminophen (Tylenol) 650 mg Q4H PRN ORAL fever 12/17/16 08:00 01/16/17 07:59 12/25/16 17:41 Amlodipine Besylate (Norvasc) 5 mg Q12HR ORAL 12/22/16 21:00 01/21/17 20:59 12/31/16 08:53 Clonidine HCl (Catapres) 0.1 mg Q4H PRN ORAL SBP >160 12/22/16 10:45 01/21/17 10:44 12/26/16 08:25 Dextrose (Dextrose 50%) STAT PRN IV Hypoglycemia 12/17/16 07:30 01/16/17 07:29 Furosemide (Lasix) 40 mg DAILY IV 12/31/16 09:00 01/30/17 08:59 12/31/16 08:52 Heparin Sodium/ Dextrose 500 ml @ 31.57 mls/ hr adjust per protocol IV 12/31/16 06:30 01/24/17 17:44 12/31/16 06:39 Hydrocortisone (Anusol HC) 1 supp TWICE A DAY RECTAL 12/24/16 18:00 01/23/17 17:59 12/31/16 08:53 Insulin Aspart (NovoLOG) No Dose Q6HR SUBQ 12/17/16 12:00 01/16/17 11:59 12/31/16 11:11 Lisinopril 10 mg 10 mg DAILY ORAL 12/31/16 09:00 01/30/17 08:59 12/31/16 08:52 Lorazepam (Ativan 2mg/ml 1ml) 1 mg Q4H PRN IV For Anxiety 12/30/16 14:00 01/06/17 13:59 Metolazone (Zaroxolyn) 2.5 mg DAILY@0800 ORAL 12/30/16 08:00 01/29/17 07:59 12/31/16 07:58 Morphine Sulfate (Morphine Sulfate) 4 mg Q4H PRN IVP Severe Pain (Pain Scale 7-10) 12/27/16 12:15 01/03/17 12:14 12/29/16 14:26 Pantoprazole (Protonix) 40 mg DAILY IVP 12/20/16 09:00 01/19/17 08:59 12/31/16 08:52 Potassium Chloride (KCl 20mEq/100ml Premix) 100 ml @ 50 mls/hr Q2H IVPB 12/31/16 09:00 12/31/16 16:59 12/31/16 11:07 Sucralfate (Carafate) 1 gm FOUR TIMES A DAY ORAL 12/17/16 09:00 01/16/17 08:59 12/31/16 08:53 OSCAR ANDERSON M.D. Dec 31, 2016 12:25
--- NOTE | 2016-12-31 13:15 | General Progress Note ---
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 on anticoagulation Pulmonary HTN HypoAlbuminemia Plan: family agreed with trach- Optimize cardiac status K supplement ordered Adjust pulmonary status- Per GI / Surgery Keep BP under control Avoid nephrotoxics monitor renal parameters Subjective ROS Limited/Unobtainable: Yes Allergies: Coded Allergies: No Known Allergies (Unverified , 09/28/14) Objective Last 24 Hour Vital Signs Date Time Temp Pulse Resp B/P Pulse Ox O2 Delivery O2 Flow Rate FiO2 12/31/16 13:00 85 18 145/43 98 Mechanical Ventilator 40 12/31/16 12:50 83 15 40 12/31/16 12:00 40 12/31/16 12:00 98.2 86 17 128/50 100 Mechanical Ventilator 40 12/31/16 12:00 82 12/31/16 11:00 85 17 143/51 98 Mechanical Ventilator 40 12/31/16 10:50 78 21 40 12/31/16 10:00 86 16 159/46 98 Mechanical Ventilator 40 12/31/16 10:00 40 12/31/16 09:00 69 16 123/34 100 Mechanical Ventilator 40 12/31/16 08:53 72 150/45 12/31/16 08:52 150/45 12/31/16 08:50 72 22 40 12/31/16 08:50 100 12/31/16 08:00 40 12/31/16 08:00 98.5 63 18 150/45 100 Mechanical Ventilator 40 12/31/16 08:00 65 12/31/16 07:00 72 16 150/38 100 Mechanical Ventilator 40 12/31/16 06:30 86 18 40 12/31/16 06:00 84 19 133/42 100 Mechanical Ventilator 40 12/31/16 05:00 79 19 154/42 100 Mechanical Ventilator 40 12/31/16 04:54 72 18 40 12/31/16 04:00 63 12/31/16 04:00 98.1 78 19 141/47 100 Mechanical Ventilator 40 12/31/16 04:00 40 12/31/16 03:02 85 16 40 12/31/16 03:00 73 19 156/52 100 Mechanical Ventilator 40 12/31/16 02:00 73 20 134/39 100 Mechanical Ventilator 40 12/31/16 01:00 77 30 125/57 98 Mechanical Ventilator 40 12/31/16 00:40 80 21 40 12/31/16 00:00 76 12/31/16 00:00 40 12/31/16 00:00 98.3 81 20 150/39 99 Mechanical Ventilator 40 12/30/16 23:00 77 19 125/34 99 Mechanical Ventilator 40 12/30/16 22:30 102 24 40 12/30/16 22:00 76 19 148/53 100 Mechanical Ventilator 40 12/30/16 21:00 40 12/30/16 21:00 76 19 143/51 100 Mechanical Ventilator 40 12/30/16 20:56 76 20 40 12/30/16 20:49 72 121/39 12/30/16 20:00 98.1 82 16 121/39 100 Mechanical Ventilator 40 12/30/16 20:00 70 12/30/16 19:00 75 18 118/32 100 Mechanical Ventilator 40 12/30/16 18:45 40 12/30/16 18:35 63 19 40 12/30/16 18:00 62 17 112/39 100 Mechanical Ventilator 40 12/30/16 17:29 82 19 40 12/30/16 17:00 72 17 134/64 100 Mechanical Ventilator 40 12/30/16 16:00 98.1 62 16 121/31 100 Mechanical Ventilator 40 12/30/16 16:00 62 12/30/16 16:00 40 12/30/16 15:24 65 16 40 12/30/16 15:00 62 18 115/37 100 Mechanical Ventilator 40 12/30/16 14:00 65 18 120/35 100 Mechanical Ventilator 40 Intake and Output 12/30/16 12/31/16 19:00 07:00 Intake Total 1347.151 ml 1109.899 ml Output Total 1350 ml 1175 ml Balance -2.849 ml -65.101 ml Free Water 200 ml 100 ml IV Total 547.151 ml 349.899 ml Tube Feeding 600 ml 600 ml Other 60 ml Output Urine Total 1350 ml 1175 ml # Bowel Movements 1 3 Laboratory Tests 12/31/16 04:25: White Blood Count 11.8H, Red Blood Count 2.60L, Hemoglobin 7.8L, Hematocrit 25.6L, Mean Corpuscular Volume 98, Mean Corpuscular Hemoglobin 30.2, Mean Corpuscular Hemoglobin Concent 30.7L, Red Cell Distribution Width 18.3H, Platelet Count 248, Mean Platelet Volume 9.3, Neutrophils (%) (Auto) , Lymphocytes (%) (Auto) , Monocytes (%) (Auto) , Eosinophils (%) (Auto) , Basophils (%) (Auto) , Differential Total Cells Counted 100, Neutrophils % ( Manual) 70, Lymphocytes % (Manual) 19L, Monocytes % (Manual) 10, Eosinophils % ( Manual) 1, Basophils % (Manual) 0, Band Neutrophils 0, Platelet Estimate Adequate, Platelet Morphology Normal, Hypochromasia 1+, Anisocytosis 1+, Prothrombin Time 11.0, Prothromb Time International Ratio 1.1, Activated Partial Thromboplast Time 64H, Sodium Level 152H, Potassium Level 2.9L, Chloride Level 104, Carbon Dioxide Level 40H, Anion Gap 8, Blood Urea Nitrogen 38H, Creatinine 0.9, Estimat Glomerular Filtration Rate > 60, Glucose Level 139H , Uric Acid 7.2, Calcium Level 8.6, Phosphorus Level 3.4, Magnesium Level 2.3, Total Bilirubin 0.7, Gamma Glutamyl Transpeptidase 230H, Aspartate Amino Transf (AST/SGOT) 27, Alanine Aminotransferase (ALT/SGPT) 18, Alkaline Phosphatase 122H , Total Creatine Kinase 14L, C-Reactive Protein, Quantitative 5.2H, Pro-B-Type Natriuretic Peptide 1156H, Total Protein 6.3L, Albumin 2.3L, Globulin 4.0, Albumin/Globulin Ratio 0.5L, Lipase 121H 12/31/16 12:50: Activated Partial Thromboplast Time [Pending] Height (Feet): 5 Height (Inches): 1.00 Weight (Pounds): 145 General Appearance: no apparent distress Neck: limited range of motion Cardiovascular: tachycardia Respiratory/Chest: decreased breath sounds Abdomen: soft Objective other PE not changed KAMINI SNOW Dec 31, 2016 13:15
[2016-12-31 15:21] LABS: ABG PCO2 71.4 mmHg (35.0-45.0)
[2016-12-31 15:22] LABS: ABG ALLEN TEST POSITIVE; ABG BASE EXCESS 15.9
--- NOTE | 2016-12-31 15:22 | Anethesia Preoperative Eval ---
Anesthesia Pre-op PMH/ROS General Date of Evaluation: Dec 31, 2016 Time of Evaluation: 16:25 Anesthesiologist: Liliana ASA Score: ASA 4 Mallampati Score Class I : Soft palate, uvula, fauces, pillars visible Class II: Soft palate, uvula, fauces visible Class III: Soft palate, base of uvula visible Class IV: Only hard plate visible Mallampati Classification: Class III Surgeon: Fareed Diagnosis: Respiratory failure Surgical Procedure: Tracheostomy Allergies: Coded Allergies: No Known Allergies (Unverified , 09/28/14) Past Medical History Cardiovascular: Reports: HTN, arrhythmia - Afib, valve dz - AVR,MVR Pulmonary: Reports: other - Respiratory failure, congestion on X-ray Gastrointestinal/Genitourinary: Reports: other - Acute Cr increase, pancreatitis Hematology/Immune: Reports: anemia - Mild PMH Narrative: Pancreatitis, Afib, MVR, AVR, mild anemia, respiratory failure Anesthesia Pre-op Phys. Exam Physician Exam Last Vital Signs Date Time Temp Pulse Resp B/P Pulse Ox O2 Delivery O2 Flow Rate FiO2 12/31/16 14:00 85 18 155/43 100 Mechanical Ventilator 40 12/31/16 12:00 98.2 Constitutional: NAD Neurologic: CN 2-12 intact Cardiovascular: other - IRIR Respiratory: CTA Gastrointestinal: S/NT/ND Airway Exam Mallampati Score: Class III MO: full ROM: full Anesthesia Pre-op A/P Labs Hematology Test 12/31/16 04:25 White Blood Count 11.8 K/UL (4.8-10.8) H Red Blood Count 2.60 M/UL (4.20-5.40) L Hemoglobin 7.8 G/DL (12.0-16.0) L Hematocrit 25.6 % (37.0-47.0) L Mean Corpuscular Volume 98 FL (80-99) Mean Corpuscular Hemoglobin 30.2 PG (27.0-31.0) Mean Corpuscular Hemoglobin Concent 30.7 G/DL (32.0-36.0) L Red Cell Distribution Width 18.3 % (11.6-14.8) H Platelet Count 248 K/UL (150-450) Mean Platelet Volume 9.3 FL (6.5-10.1) Neutrophils (%) (Auto) % (45.0-75.0) Lymphocytes (%) (Auto) % (20.0-45.0) Monocytes (%) (Auto) % (1.0-10.0) Eosinophils (%) (Auto) % (0.0-3.0) Basophils (%) (Auto) % (0.0-2.0) Differential Total Cells Counted 100 Neutrophils % (Manual) 70 % (45-75) Lymphocytes % (Manual) 19 % (20-45) L Monocytes % (Manual) 10 % (1-10) Eosinophils % (Manual) 1 % (0-3) Basophils % (Manual) 0 % (0-2) Band Neutrophils 0 % (0-8) Platelet Estimate Adequate Platelet Morphology Normal Hypochromasia 1+ Anisocytosis 1+ Coagulation Test 12/31/16 04:25 12/31/16 12:50 Prothrombin Time 11.0 SEC (9.30-11.50) Prothromb Time International Ratio 1.1 (0.9-1.1) Activated Partial Thromboplast Time 64 SEC (23-33) H 93 SEC (23-33) H Chemistry Test 12/31/16 04:25 Sodium Level 152 mEQ/L (135-145) H Potassium Level 2.9 mEQ/L (3.4-4.9) L Chloride Level 104 mEQ/L (98-107) Carbon Dioxide Level 40 mEQ/L (20-30) H Anion Gap 8 (5-15) Blood Urea Nitrogen 38 mg/dL (7-23) H Creatinine 0.9 mg/dL (0.5-0.9) Estimat Glomerular Filtration Rate > 60 mL/min (>60) Glucose Level 139 mg/dL (74-106) H Uric Acid 7.2 mg/dL (3.0-7.5) Calcium Level 8.6 mg/dL (8.6-10.2) Phosphorus Level 3.4 mg/dL (2.5-4.8) Magnesium Level 2.3 mg/dL (1.7-2.5) Total Bilirubin 0.7 mg/dL (0.0-1.2) Gamma Glutamyl Transpeptidase 230 U/L (5-36) H Aspartate Amino Transf (AST/SGOT) 27 U/L (5-40) Alanine Aminotransferase (ALT/SGPT) 18 U/L (3-33) Alkaline Phosphatase 122 U/L (35-104) H Total Creatine Kinase 14 U/L (26-140) L C-Reactive Protein, Quantitative 5.2 mg/dL (< 0.5) H Pro-B-Type Natriuretic Peptide 1156 pg/mL (0-125) H Total Protein 6.3 g/dL (6.6-8.7) L Albumin 2.3 g/dL (3.5-5.2) L Globulin 4.0 g/dL Albumin/Globulin Ratio 0.5 (1.0-2.7) L Lipase 121 U/L (< 60) H Studies Pre-op Studies: EKG - Afib-rate controlled Risk Assessment & Plan Assessment: For trach Plan: GA Status Change Before Surgery: MYNOR Mckay M.D. Dec 31, 2016 15:22
[2016-12-31] MEDS: Morphine Sulfate 4mg/ml Inj IVP PRN (16:26)
--- NOTE | 2016-12-31 20:00 | Cardiology Progress Note ---
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 perm afib on anticoagulation with Coumadin coagulopathy now elevated due to med interaction adn disease process leukocytosis ARF intra abd hematomas brbpr hypernatremia na is elevated but is better ct performed 12/24/2016 showed multi hematomas in barber bd cavity d/w rn bp med repeat echo note lv fxn normal , as( high gradient despite recent avr ), mvr , pulm htn abg noted respirator y acidosis on simv cxr reviewed personally extensively discussed with pt about trach plans at family request is on heparin for [facility] heart valve will dc 6-7 hour pror to trach needs to restar [facility]leigh post procedure Subjective Cardiovascular: Denies: chest pain, lightheadedness Respiratory: Reports: shortness of breath Gastrointestinal/Abdominal: Denies: abdominal pain Genitourinary: Denies: burning Subjective on the vent , more awake todazy Objective Last 24 Hour Vital Signs Date Time Temp Pulse Resp B/P Pulse Ox O2 Delivery O2 Flow Rate FiO2 12/31/16 19:11 92 18 40 12/31/16 19:00 78 17 147/34 98 Mechanical Ventilator 40 12/31/16 18:00 79 17 156/57 98 Mechanical Ventilator 40 12/31/16 17:00 77 15 143/58 98 Mechanical Ventilator 40 12/31/16 16:57 80 15 40 12/31/16 16:55 98.2 12/31/16 16:00 98.1 82 16 142/54 100 Mechanical Ventilator 40 12/31/16 16:00 40 12/31/16 16:00 86 12/31/16 15:00 74 15 40 12/31/16 15:00 74 15 159/55 100 Mechanical Ventilator 40 12/31/16 14:00 85 18 155/43 100 Mechanical Ventilator 40 12/31/16 13:00 85 18 145/43 98 Mechanical Ventilator 40 12/31/16 12:50 83 15 40 12/31/16 12:00 40 12/31/16 12:00 98.2 86 17 128/50 100 Mechanical Ventilator 40 12/31/16 12:00 82 12/31/16 11:00 85 17 143/51 98 Mechanical Ventilator 40 12/31/16 10:50 78 21 40 12/31/16 10:00 86 16 159/46 98 Mechanical Ventilator 40 12/31/16 10:00 40 12/31/16 09:00 69 16 123/34 100 Mechanical Ventilator 40 12/31/16 08:53 72 150/45 12/31/16 08:52 150/45 12/31/16 08:50 72 22 40 12/31/16 08:50 100 12/31/16 08:00 40 12/31/16 08:00 98.5 63 18 150/45 100 Mechanical Ventilator 40 12/31/16 08:00 65 12/31/16 07:00 72 16 150/38 100 Mechanical Ventilator 40 12/31/16 06:30 86 18 40 12/31/16 06:00 84 19 133/42 100 Mechanical Ventilator 40 12/31/16 05:00 79 19 154/42 100 Mechanical Ventilator 40 12/31/16 04:54 72 18 40 12/31/16 04:00 63 12/31/16 04:00 98.1 78 19 141/47 100 Mechanical Ventilator 40 12/31/16 04:00 40 12/31/16 03:02 85 16 40 12/31/16 03:00 73 19 156/52 100 Mechanical Ventilator 40 12/31/16 02:00 73 20 134/39 100 Mechanical Ventilator 40 12/31/16 01:00 77 30 125/57 98 Mechanical Ventilator 40 12/31/16 00:40 80 21 40 12/31/16 00:00 76 12/31/16 00:00 40 12/31/16 00:00 98.3 81 20 150/39 99 Mechanical Ventilator 40 12/30/16 23:00 77 19 125/34 99 Mechanical Ventilator 40 12/30/16 22:30 102 24 40 12/30/16 22:00 76 19 148/53 100 Mechanical Ventilator 40 12/30/16 21:00 40 12/30/16 21:00 76 19 143/51 100 Mechanical Ventilator 40 12/30/16 20:56 76 20 40 12/30/16 20:49 72 121/39 12/30/16 20:00 98.1 82 16 121/39 100 Mechanical Ventilator 40 12/30/16 20:00 70 General Appearance: no apparent distress, alert, on vent Neck: supple Cardiovascular: irregularly irregular, other - mechanical Respiratory/Chest: lungs clear Abdomen: normal bowel sounds, non tender, soft Extremities: moderate edema Intake and Output 12/30/16 12/31/16 19:00 07:00 Intake Total 1347.151 ml 1109.899 ml Output Total 1350 ml 1175 ml Balance -2.849 ml -65.101 ml Free Water 200 ml 100 ml IV Total 547.151 ml 349.899 ml Tube Feeding 600 ml 600 ml Other 60 ml Output Urine Total 1350 ml 1175 ml # Bowel Movements 1 3 Laboratory Tests Test 12/31/16 04:25 12/31/16 12:50 12/31/16 15:11 White Blood Count 11.8 K/UL (4.8-10.8) H Red Blood Count 2.60 M/UL (4.20-5.40) L Hemoglobin 7.8 G/DL (12.0-16.0) L Hematocrit 25.6 % (37.0-47.0) L Mean Corpuscular Volume 98 FL (80-99) Mean Corpuscular Hemoglobin 30.2 PG (27.0-31.0) Mean Corpuscular Hemoglobin Concent 30.7 G/DL (32.0-36.0) L Red Cell Distribution Width 18.3 % (11.6-14.8) H Platelet Count 248 K/UL (150-450) Mean Platelet Volume 9.3 FL (6.5-10.1) Neutrophils (%) (Auto) % (45.0-75.0) Lymphocytes (%) (Auto) % (20.0-45.0) Monocytes (%) (Auto) % (1.0-10.0) Eosinophils (%) (Auto) % (0.0-3.0) Basophils (%) (Auto) % (0.0-2.0) Differential Total Cells Counted 100 Neutrophils % (Manual) 70 % (45-75) Lymphocytes % (Manual) 19 % (20-45) L Monocytes % (Manual) 10 % (1-10) Eosinophils % (Manual) 1 % (0-3) Basophils % (Manual) 0 % (0-2) Band Neutrophils 0 % (0-8) Platelet Estimate Adequate Platelet Morphology Normal Hypochromasia 1+ Anisocytosis 1+ Prothrombin Time 11.0 SEC (9.30-11.50) Prothromb Time International Ratio 1.1 (0.9-1.1) Activated Partial Thromboplast Time 64 SEC (23-33) H 93 SEC (23-33) H Sodium Level 152 mEQ/L (135-145) H Potassium Level 2.9 mEQ/L (3.4-4.9) L Chloride Level 104 mEQ/L (98-107) Carbon Dioxide Level 40 mEQ/L (20-30) H Anion Gap 8 (5-15) Blood Urea Nitrogen 38 mg/dL (7-23) H Creatinine 0.9 mg/dL (0.5-0.9) Estimat Glomerular Filtration Rate > 60 mL/min (>60) Glucose Level 139 mg/dL (74-106) H Uric Acid 7.2 mg/dL (3.0-7.5) Calcium Level 8.6 mg/dL (8.6-10.2) Phosphorus Level 3.4 mg/dL (2.5-4.8) Magnesium Level 2.3 mg/dL (1.7-2.5) Total Bilirubin 0.7 mg/dL (0.0-1.2) Gamma Glutamyl Transpeptidase 230 U/L (5-36) H Aspartate Amino Transf (AST/SGOT) 27 U/L (5-40) Alanine Aminotransferase (ALT/SGPT) 18 U/L (3-33) Alkaline Phosphatase 122 U/L (35-104) H Total Creatine Kinase 14 U/L (26-140) L C-Reactive Protein, Quantitative 5.2 mg/dL (< 0.5) H Pro-B-Type Natriuretic Peptide 1156 pg/mL (0-125) H Total Protein 6.3 g/dL (6.6-8.7) L Albumin 2.3 g/dL (3.5-5.2) L Globulin 4.0 g/dL Albumin/Globulin Ratio 0.5 (1.0-2.7) L Lipase 121 U/L (< 60) H Arterial Blood pH 7.399 (7.350-7.450) Arterial Blood Partial Pressure CO2 71.4 mmHg (35.0-45.0) *H Arterial Blood Partial Pressure O2 79.9 mmHg (75.0-100.0) Arterial Blood HCO3 43.1 mmol/L (22.0-26.0) H Arterial Blood Oxygen Saturation 94.6 % (92.0-98.0) Arterial Blood Base Excess 15.9 Ok Test Positive ANNE RAM Dec 31, 2016 20:00
[2017-01-01] VITALS (24 sets, daily range): BP systolic 87–156; BP diastolic 32–65
[2017-01-01] MEDS: NovoLOG Insulin Flexpen SUBQ SCH ×4 (00:11→17:55)
[2017-01-01] MEDS: Morphine Sulfate 4mg/ml Inj IVP PRN ×2 (00:39→12:41)
[2017-01-01 05:10] LABS: BASOPHILS % (AUTO) 0.8 % (0.0-2.0); EOSINOPHILS % (AUTO) 2.4 % (0.0-3.0); LYMPHOCYTES % (AUTO) 15.9 % (20.0-45.0); MEAN CORPUSCULAR HGB CONC 30.9 G/DL (32.0-36.0); MEAN CORPUSCULAR VOLUME 101 FL (80-99); MEAN PLATELET VOLUME 8.8 FL (6.5-10.1); MONOCYTES % (AUTO) 8.9 % (1.0-10.0); PLATELET COUNT 235 K/UL (150-450); RED BLOOD COUNT 2.71 M/UL (4.20-5.40); RED CELL DISTRIBUTION WIDTH 17.9 % (11.6-14.8); WHITE BLOOD COUNT 12.3 K/UL (4.8-10.8)
[2017-01-01 05:35] LABS: ALANINE AMINOTRANSFERASE 17 U/L (3-33); ALBUMIN/GLOBULIN RATIO 0.5 (1.0-2.7); ANION GAP 1 (5-15); ASPARTATE AMINO TRANSFERASE 24 U/L (5-40); CALCIUM 8.6 mg/dL (8.6-10.2); CHLORIDE 108 mEQ/L (98-107); CREATININE 0.8 mg/dL (0.5-0.9); GLOMERULAR FILTRATION RATE > 60 mL/min (>60); HEMOLYSIS 3; MAGNESIUM 2.1 mg/dL (1.7-2.5); PHOSPHORUS 3.6 mg/dL (2.5-4.8); POTASSIUM 3.3 mEQ/L (3.4-4.9); SODIUM 155 mEQ/L (135-145); TOTAL PROTEIN 6.4 g/dL (6.6-8.7)
[2017-01-01 05:38] LABS: CARBON DIOXIDE 46 mEQ/L (20-30)
[2017-01-01 07:50] LABS: ABG ALLEN TEST POSITIVE; ABG BASE EXCESS 11
[2017-01-01] MEDS: Sucralfate 1gm tab ORAL SCH ×4 (08:53→21:23)
[2017-01-01] MEDS: Pantoprazole Inj IVP SCH (08:53)
[2017-01-01] MEDS: Lisinopril 10mg tab ORAL SCH (08:53)
[2017-01-01] MEDS: METOLAZONE 2.5 MG ORAL SCH (08:53)
[2017-01-01] MEDS ORDERED: Bupivacaine w/Epi 0.5% 30ml Vial INJ ONE (09:27)
[2017-01-01] MEDS ORDERED: Lidocaine 1% 10mg/ml/Epi 0.005mg/ml 30ml vial INJ ONE (09:27)
[2017-01-01] MEDS ORDERED: LR 1000ml ONE (09:30)
[2017-01-01] MEDS ORDERED: ePHEDrine 50mg/ml Inj ONE (09:30)
[2017-01-01] MEDS ORDERED: fentaNYL 100 mcg/2 mL IV ONE (09:30)
[2017-01-01] MEDS ORDERED: Midazolam 2mg/2ml Inj ONE (09:30)
[2017-01-01 10:04] LABS: INR 1.1 (0.9-1.1); PROTHROMBIN TIME 10.7 SEC (9.30-11.50)
--- NOTE | 2017-01-01 10:29 | General Progress Note ---
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 on anticoagulation Pulmonary HTN HypoAlbuminemia Plan: family agreed with trach- Optimize cardiac status K supplement ordered Adjust pulmonary status- Per GI / Surgery Keep BP under control Avoid nephrotoxics monitor renal parameters Subjective ROS Limited/Unobtainable: Yes Allergies: Coded Allergies: No Known Allergies (Unverified , 09/28/14) Objective Last 24 Hour Vital Signs Date Time Temp Pulse Resp B/P Pulse Ox O2 Delivery O2 Flow Rate FiO2 01/01/17 10:00 104 34 147/56 96 Mechanical Ventilator 40 01/01/17 09:00 98.7 104 28 141/65 100 Mechanical Ventilator 40 01/01/17 08:53 142/67 01/01/17 08:53 94 142/67 01/01/17 08:43 100 01/01/17 08:43 93 24 40 01/01/17 08:00 99 24 139/56 96 Mechanical Ventilator 40 01/01/17 08:00 94 01/01/17 08:00 40 01/01/17 07:07 92 20 40 01/01/17 07:00 88 17 148/46 96 Mechanical Ventilator 40 01/01/17 06:00 78 17 155/44 98 Mechanical Ventilator 40 01/01/17 05:21 78 20 40 01/01/17 05:00 84 16 155/48 98 Mechanical Ventilator 40 01/01/17 04:00 40 01/01/17 04:00 87 01/01/17 04:00 98.3 73 19 151/54 99 Mechanical Ventilator 40 01/01/17 03:25 72 18 40 01/01/17 03:00 74 18 156/52 98 Mechanical Ventilator 40 01/01/17 02:00 72 18 155/41 97 Mechanical Ventilator 40 01/01/17 01:09 98.4 01/01/17 01:00 75 20 40 01/01/17 01:00 88 19 135/54 98 Mechanical Ventilator 40 01/01/17 00:00 98.4 73 19 154/56 97 Mechanical Ventilator 40 01/01/17 00:00 40 01/01/17 00:00 83 12/31/16 23:08 78 18 40 12/31/16 23:00 98 19 151/41 100 Mechanical Ventilator 40 12/31/16 22:00 77 19 153/52 99 Mechanical Ventilator 40 12/31/16 21:18 78 135/49 12/31/16 21:00 81 20 135/49 98 Mechanical Ventilator 40 12/31/16 20:55 79 17 40 12/31/16 20:00 40 12/31/16 20:00 78 12/31/16 20:00 97.8 71 18 149/37 99 Mechanical Ventilator 40 12/31/16 19:11 92 18 40 12/31/16 19:00 78 17 147/34 98 Mechanical Ventilator 40 12/31/16 18:00 79 17 156/57 98 Mechanical Ventilator 40 12/31/16 17:00 77 15 143/58 98 Mechanical Ventilator 40 12/31/16 16:57 80 15 40 12/31/16 16:00 98.1 82 16 142/54 100 Mechanical Ventilator 40 12/31/16 16:00 40 12/31/16 16:00 86 12/31/16 15:00 74 15 40 12/31/16 15:00 74 15 159/55 100 Mechanical Ventilator 40 12/31/16 14:00 85 18 155/43 100 Mechanical Ventilator 40 12/31/16 13:00 85 18 145/43 98 Mechanical Ventilator 40 12/31/16 12:50 83 15 40 12/31/16 12:00 40 12/31/16 12:00 98.2 86 17 128/50 100 Mechanical Ventilator 40 12/31/16 12:00 82 12/31/16 11:00 85 17 143/51 98 Mechanical Ventilator 40 12/31/16 10:50 78 21 40 Intake and Output 12/31/16 01/01/17 19:00 07:00 Intake Total 1888.84 ml 934.13 ml Output Total 1490 ml 800 ml Balance 398.84 ml 134.13 ml Free Water 200 ml 200 ml IV Total 778.84 ml 284.13 ml Tube Feeding 600 ml 450 ml Blood Product 250 ml Other 60 ml Output Urine Total 1490 ml 800 ml # Bowel Movements 4 2 Laboratory Tests 12/31/16 12:50: Activated Partial Thromboplast Time 93H 12/31/16 15:11: Arterial Blood pH 7.399, Arterial Blood Partial Pressure CO2 71.4*H, Arterial Blood Partial Pressure O2 79.9, Arterial Blood HCO3 43.1H, Arterial Blood Oxygen Saturation 94.6, Arterial Blood Base Excess 15.9, Ok Test Positive 01/01/17 04:10: Activated Partial Thromboplast Time 86H, White Blood Count 12.3H, Red Blood Count 2.71L, Hemoglobin 8.4L, Hematocrit 27.2L, Mean Corpuscular Volume 101H, Mean Corpuscular Hemoglobin 31.0, Mean Corpuscular Hemoglobin Concent 30.9L, Red Cell Distribution Width 17.9H, Platelet Count 235, Mean Platelet Volume 8.8 , Neutrophils (%) (Auto) 72.0, Lymphocytes (%) (Auto) 15.9L, Monocytes (%) (Auto ) 8.9, Eosinophils (%) (Auto) 2.4, Basophils (%) (Auto) 0.8, Sodium Level 155H, Potassium Level 3.3L, Chloride Level 108H, Carbon Dioxide Level 46*H, Anion Gap 1L, Blood Urea Nitrogen 37H, Creatinine 0.8, Estimat Glomerular Filtration Rate > 60, Glucose Level 147H, Calcium Level 8.6, Phosphorus Level 3.6, Magnesium Level 2.1, Total Bilirubin 0.8, Aspartate Amino Transf (AST/SGOT) 24, Alanine Aminotransferase (ALT/SGPT) 17, Alkaline Phosphatase 109H, Total Protein 6.4L, Albumin 2.3L, Globulin 4.1, Albumin/Globulin Ratio 0.5L 01/01/17 07:35: Arterial Blood pH 7.440, Arterial Blood Partial Pressure CO2 55.0H, Arterial Blood Partial Pressure O2 83.2, Arterial Blood HCO3 36.5H, Arterial Blood Oxygen Saturation 96.0, Arterial Blood Base Excess 11, Ok Test Positive 01/01/17 09:00: Prothrombin Time 10.7, Prothromb Time International Ratio 1.1 Height (Feet): 5 Height (Inches): 1.00 Weight (Pounds): 145 General Appearance: no apparent distress Objective other PE not changed KAMINI SNOW Jan 01, 2017 10:28
[2017-01-01] MEDS ORDERED: Surgicel 4in x 8in TOPIC ONE (10:35)
--- NOTE | 2017-01-01 10:52 | Pulmonolgy Critical Care Note ---
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, 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 with: nurses, 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 - Objective Last 24 Hour Vital Signs Date Time Temp Pulse Resp B/P Pulse Ox O2 Delivery O2 Flow Rate FiO2 01/01/17 10:00 104 34 147/56 96 Mechanical Ventilator 40 01/01/17 09:00 98.7 104 28 141/65 100 Mechanical Ventilator 40 01/01/17 08:53 142/67 01/01/17 08:53 94 142/67 01/01/17 08:43 100 01/01/17 08:43 93 24 40 01/01/17 08:00 99 24 139/56 96 Mechanical Ventilator 40 01/01/17 08:00 94 01/01/17 08:00 40 01/01/17 07:07 92 20 40 01/01/17 07:00 88 17 148/46 96 Mechanical Ventilator 40 01/01/17 06:00 78 17 155/44 98 Mechanical Ventilator 40 01/01/17 05:21 78 20 40 01/01/17 05:00 84 16 155/48 98 Mechanical Ventilator 40 01/01/17 04:00 40 01/01/17 04:00 87 01/01/17 04:00 98.3 73 19 151/54 99 Mechanical Ventilator 40 01/01/17 03:25 72 18 40 01/01/17 03:00 74 18 156/52 98 Mechanical Ventilator 40 01/01/17 02:00 72 18 155/41 97 Mechanical Ventilator 40 01/01/17 01:09 98.4 01/01/17 01:00 75 20 40 01/01/17 01:00 88 19 135/54 98 Mechanical Ventilator 40 01/01/17 00:00 98.4 73 19 154/56 97 Mechanical Ventilator 40 01/01/17 00:00 40 01/01/17 00:00 83 12/31/16 23:08 78 18 40 12/31/16 23:00 98 19 151/41 100 Mechanical Ventilator 40 12/31/16 22:00 77 19 153/52 99 Mechanical Ventilator 40 12/31/16 21:18 78 135/49 12/31/16 21:00 81 20 135/49 98 Mechanical Ventilator 40 12/31/16 20:55 79 17 40 12/31/16 20:00 40 12/31/16 20:00 78 12/31/16 20:00 97.8 71 18 149/37 99 Mechanical Ventilator 40 12/31/16 19:11 92 18 40 12/31/16 19:00 78 17 147/34 98 Mechanical Ventilator 40 12/31/16 18:00 79 17 156/57 98 Mechanical Ventilator 40 12/31/16 17:00 77 15 143/58 98 Mechanical Ventilator 40 12/31/16 16:57 80 15 40 12/31/16 16:00 98.1 82 16 142/54 100 Mechanical Ventilator 40 12/31/16 16:00 40 12/31/16 16:00 86 12/31/16 15:00 74 15 40 12/31/16 15:00 74 15 159/55 100 Mechanical Ventilator 40 12/31/16 14:00 85 18 155/43 100 Mechanical Ventilator 40 12/31/16 13:00 85 18 145/43 98 Mechanical Ventilator 40 12/31/16 12:50 83 15 40 12/31/16 12:00 40 12/31/16 12:00 98.2 86 17 128/50 100 Mechanical Ventilator 40 12/31/16 12:00 82 12/31/16 11:00 85 17 143/51 98 Mechanical Ventilator 40 Status: awake Condition: critical HEENT: atraumatic Neck: full ROM Heart: HR/BP stable, HR/BP unstable Abdomen: soft, active bowel sounds, feeding tube Accucheck: 129 Critical Care - Subjective ROS Limited/Unobtainable: No Interval Events: for tracheostomy today Condition: critical FI02: 40 Vent Support Breath Rate: 12 Vent Support Mode: IMV/SIMV Vent Tidal Volume: 500 Sputum Amount: Small PEEP: 5.0 PIP: 36 Tube Feeding Amount: 50 I&O: Intake and Output 12/31/16 01/01/17 19:00 07:00 Intake Total 1888.84 ml 934.13 ml Output Total 1490 ml 800 ml Balance 398.84 ml 134.13 ml Free Water 200 ml 200 ml IV Total 778.84 ml 284.13 ml Tube Feeding 600 ml 450 ml Blood Product 250 ml Other 60 ml Output Urine Total 1490 ml 800 ml # Bowel Movements 4 2 CXR: no new changes ET-Tube: 7.5 ET Position: 22 Labs: Laboratory Tests Test 12/31/16 12:50 12/31/16 15:11 01/01/17 04:10 01/01/17 07:35 Activated Partial Thromboplast Time 93 SEC (23-33) H 86 SEC (23-33) H Arterial Blood pH 7.399 (7.350-7.450) 7.440 (7.350-7.450) Arterial Blood Partial Pressure CO2 71.4 mmHg (35.0-45.0) *H 55.0 mmHg (35.0-45.0) H Arterial Blood Partial Pressure O2 79.9 mmHg (75.0-100.0) 83.2 mmHg (75.0-100.0) Arterial Blood HCO3 43.1 mmol/L (22.0-26.0) H 36.5 mmol/L (22.0-26.0) H Arterial Blood Oxygen Saturation 94.6 % (92.0-98.0) 96.0 % (92.0-98.0) Arterial Blood Base Excess 15.9 11 Ok Test Positive Positive White Blood Count 12.3 K/UL (4.8-10.8) H Red Blood Count 2.71 M/UL (4.20-5.40) L Hemoglobin 8.4 G/DL (12.0-16.0) L Hematocrit 27.2 % (37.0-47.0) L Mean Corpuscular Volume 101 FL (80-99) H Mean Corpuscular Hemoglobin 31.0 PG (27.0-31.0) Mean Corpuscular Hemoglobin Concent 30.9 G/DL (32.0-36.0) L Red Cell Distribution Width 17.9 % (11.6-14.8) H Platelet Count 235 K/UL (150-450) Mean Platelet Volume 8.8 FL (6.5-10.1) Neutrophils (%) (Auto) 72.0 % (45.0-75.0) Lymphocytes (%) (Auto) 15.9 % (20.0-45.0) L Monocytes (%) (Auto) 8.9 % (1.0-10.0) Eosinophils (%) (Auto) 2.4 % (0.0-3.0) Basophils (%) (Auto) 0.8 % (0.0-2.0) Sodium Level 155 mEQ/L (135-145) H Potassium Level 3.3 mEQ/L (3.4-4.9) L Chloride Level 108 mEQ/L (98-107) H Carbon Dioxide Level 46 mEQ/L (20-30) *H Anion Gap 1 (5-15) L Blood Urea Nitrogen 37 mg/dL (7-23) H Creatinine 0.8 mg/dL (0.5-0.9) Estimat Glomerular Filtration Rate > 60 mL/min (>60) Glucose Level 147 mg/dL (74-106) H Calcium Level 8.6 mg/dL (8.6-10.2) Phosphorus Level 3.6 mg/dL (2.5-4.8) Magnesium Level 2.1 mg/dL (1.7-2.5) Total Bilirubin 0.8 mg/dL (0.0-1.2) Aspartate Amino Transf (AST/SGOT) 24 U/L (5-40) Alanine Aminotransferase (ALT/SGPT) 17 U/L (3-33) Alkaline Phosphatase 109 U/L (35-104) H Total Protein 6.4 g/dL (6.6-8.7) L Albumin 2.3 g/dL (3.5-5.2) L Globulin 4.1 g/dL Albumin/Globulin Ratio 0.5 (1.0-2.7) L Test 01/01/17 09:00 Prothrombin Time 10.7 SEC (9.30-11.50) Prothromb Time International Ratio 1.1 (0.9-1.1) TONY BRIDGES Jan 01, 2017 10:52
--- NOTE | 2017-01-01 11:03 | Brief Operative Note ---
Immediate Post Operative Note Operative Note Pre-op Diagnosis: Respiratory failure requiring prolonged ventilation Procedure: Tracheostomy Post-op Diagnosis: same as pre-op Findings: consistent w/pre-op dx studies Surgeon: Thu Anesthesiologist: Lauren Anesthesia: general Specimen: none Complications: none Condition: stable Fluids: see anesthesia records Estimated Blood Loss: minimal Drains: none Implant(s) used?: Yes - 8f Rodrigo Gasca Jan 01, 2017 11:03
--- NOTE | 2017-01-01 11:07 | 48 Hour Post Anesthesia Eval ---
Post Anesthesia Evaluation Procedure: Trach Date of Evaluation: Jan 01, 2017 Time of Evaluation: 11:15 Blood Pressure Systolic: 114 0: 62 Pulse Rate: 84 Respiratory Rate: 12 O2 Sat by Pulse Oximetry: 100 Airway: patent Nausea: No Vomiting: No Pain Intensity: 0 Hydration Status: adequate Cardiopulmonary Status: Stable Mental Status/LOC: patient returned to baseline Follow-up Care/Observations: As per surgery Post-Anesthesia Complications: No anesthetic complication Follow-up care needed: N/A MYNOR JOHNSON M.D. Jan 01, 2017 11:07
--- NOTE | 2017-01-01 11:10 | Infectious Diseases Prog Note ---
Assessment/Plan Assessment/Plan ASSESSMENT: Pancreatitis recurrent CT: Findings compatible with marked worsening of acute pancreatitis MRCP : Cholelithiasis. There is also a calculus within the duct adjacent to the gallbladder Pancreatic Enzymes improving CT of Abd : reviewed Leukocytosis ( SIRS ) mild SP cholelithiasis : US of liver : Incidental finding of cholelithiasis and mild gallbladder wall thickening positive sonographic Diaz's sign LFT : Nl UTI : Mandy SCx : Mandy ( colonizer ) VDRF: SP trach 01/01 Cxray : Increase in bilateral congestive changes with persistent small right , probable new left pleural effusions ARF SP aortic stenosis mitral stenosis status post mitral valve replacement AFib Pulmonary hypertension PLAN: - monitor pt off of Ab Rx ( 12/28 SP Diflucan d# 10 ) ( 12/24 SP Merrem d# 14 /14 ) - monitor CBC, temperatures, - monitor LFT - GI f/u - Sx is following for possible Cholecystectomy later - VDRF - possible trach Subjective Allergies: Coded Allergies: No Known Allergies (Unverified , 09/28/14) Subjective on Vent Objective Vital Signs Last 24 Hour Vital Signs Date Time Temp Pulse Resp B/P Pulse Ox O2 Delivery O2 Flow Rate FiO2 01/01/17 11:07 84 12 100 01/01/17 10:00 104 34 147/56 96 Mechanical Ventilator 40 01/01/17 09:00 98.7 104 28 141/65 100 Mechanical Ventilator 40 01/01/17 08:53 142/67 01/01/17 08:53 94 142/67 01/01/17 08:43 100 01/01/17 08:43 93 24 40 01/01/17 08:00 99 24 139/56 96 Mechanical Ventilator 40 01/01/17 08:00 94 01/01/17 08:00 40 01/01/17 07:07 92 20 40 01/01/17 07:00 88 17 148/46 96 Mechanical Ventilator 40 01/01/17 06:00 78 17 155/44 98 Mechanical Ventilator 40 01/01/17 05:21 78 20 40 01/01/17 05:00 84 16 155/48 98 Mechanical Ventilator 40 01/01/17 04:00 40 01/01/17 04:00 87 01/01/17 04:00 98.3 73 19 151/54 99 Mechanical Ventilator 40 01/01/17 03:25 72 18 40 01/01/17 03:00 74 18 156/52 98 Mechanical Ventilator 40 01/01/17 02:00 72 18 155/41 97 Mechanical Ventilator 40 01/01/17 01:09 98.4 01/01/17 01:00 75 20 40 01/01/17 01:00 88 19 135/54 98 Mechanical Ventilator 40 01/01/17 00:00 98.4 73 19 154/56 97 Mechanical Ventilator 40 01/01/17 00:00 40 01/01/17 00:00 83 12/31/16 23:08 78 18 40 12/31/16 23:00 98 19 151/41 100 Mechanical Ventilator 40 12/31/16 22:00 77 19 153/52 99 Mechanical Ventilator 40 12/31/16 21:18 78 135/49 12/31/16 21:00 81 20 135/49 98 Mechanical Ventilator 40 12/31/16 20:55 79 17 40 12/31/16 20:00 40 12/31/16 20:00 78 12/31/16 20:00 97.8 71 18 149/37 99 Mechanical Ventilator 40 12/31/16 19:11 92 18 40 12/31/16 19:00 78 17 147/34 98 Mechanical Ventilator 40 12/31/16 18:00 79 17 156/57 98 Mechanical Ventilator 40 12/31/16 17:00 77 15 143/58 98 Mechanical Ventilator 40 12/31/16 16:57 80 15 40 12/31/16 16:00 98.1 82 16 142/54 100 Mechanical Ventilator 40 12/31/16 16:00 40 12/31/16 16:00 86 12/31/16 15:00 74 15 40 12/31/16 15:00 74 15 159/55 100 Mechanical Ventilator 40 12/31/16 14:00 85 18 155/43 100 Mechanical Ventilator 40 12/31/16 13:00 85 18 145/43 98 Mechanical Ventilator 40 12/31/16 12:50 83 15 40 12/31/16 12:00 40 12/31/16 12:00 98.2 86 17 128/50 100 Mechanical Ventilator 40 12/31/16 12:00 82 Height (Feet): 5 Height (Inches): 1.00 Weight (Pounds): 145 HEENT: atraumatic Respiratory/Chest: no accessory muscle use Cardiovascular: regularly irregular Abdomen: non distended Laboratory Tests Test 12/31/16 12:50 12/31/16 15:11 01/01/17 04:10 01/01/17 07:35 Activated Partial Thromboplast Time 93 SEC (23-33) H 86 SEC (23-33) H Arterial Blood pH 7.399 (7.350-7.450) 7.440 (7.350-7.450) Arterial Blood Partial Pressure CO2 71.4 mmHg (35.0-45.0) *H 55.0 mmHg (35.0-45.0) H Arterial Blood Partial Pressure O2 79.9 mmHg (75.0-100.0) 83.2 mmHg (75.0-100.0) Arterial Blood HCO3 43.1 mmol/L (22.0-26.0) H 36.5 mmol/L (22.0-26.0) H Arterial Blood Oxygen Saturation 94.6 % (92.0-98.0) 96.0 % (92.0-98.0) Arterial Blood Base Excess 15.9 11 Ok Test Positive Positive White Blood Count 12.3 K/UL (4.8-10.8) H Red Blood Count 2.71 M/UL (4.20-5.40) L Hemoglobin 8.4 G/DL (12.0-16.0) L Hematocrit 27.2 % (37.0-47.0) L Mean Corpuscular Volume 101 FL (80-99) H Mean Corpuscular Hemoglobin 31.0 PG (27.0-31.0) Mean Corpuscular Hemoglobin Concent 30.9 G/DL (32.0-36.0) L Red Cell Distribution Width 17.9 % (11.6-14.8) H Platelet Count 235 K/UL (150-450) Mean Platelet Volume 8.8 FL (6.5-10.1) Neutrophils (%) (Auto) 72.0 % (45.0-75.0) Lymphocytes (%) (Auto) 15.9 % (20.0-45.0) L Monocytes (%) (Auto) 8.9 % (1.0-10.0) Eosinophils (%) (Auto) 2.4 % (0.0-3.0) Basophils (%) (Auto) 0.8 % (0.0-2.0) Sodium Level 155 mEQ/L (135-145) H Potassium Level 3.3 mEQ/L (3.4-4.9) L Chloride Level 108 mEQ/L (98-107) H Carbon Dioxide Level 46 mEQ/L (20-30) *H Anion Gap 1 (5-15) L Blood Urea Nitrogen 37 mg/dL (7-23) H Creatinine 0.8 mg/dL (0.5-0.9) Estimat Glomerular Filtration Rate > 60 mL/min (>60) Glucose Level 147 mg/dL (74-106) H Calcium Level 8.6 mg/dL (8.6-10.2) Phosphorus Level 3.6 mg/dL (2.5-4.8) Magnesium Level 2.1 mg/dL (1.7-2.5) Total Bilirubin 0.8 mg/dL (0.0-1.2) Aspartate Amino Transf (AST/SGOT) 24 U/L (5-40) Alanine Aminotransferase (ALT/SGPT) 17 U/L (3-33) Alkaline Phosphatase 109 U/L (35-104) H Total Protein 6.4 g/dL (6.6-8.7) L Albumin 2.3 g/dL (3.5-5.2) L Globulin 4.1 g/dL Albumin/Globulin Ratio 0.5 (1.0-2.7) L Test 01/01/17 09:00 Prothrombin Time 10.7 SEC (9.30-11.50) Prothromb Time International Ratio 1.1 (0.9-1.1) Current Medications Medications (Trade) Dose Ordered Sig/Lisbeth Route PRN Reason Start Time Stop Time Status Last Admin Dose Admin Acetaminophen (Tylenol) 650 mg Q4H PRN ORAL fever 12/17/16 08:00 01/16/17 07:59 12/25/16 17:41 Amlodipine Besylate (Norvasc) 5 mg Q12HR ORAL 12/22/16 21:00 01/21/17 20:59 01/01/17 08:53 Clonidine HCl (Catapres) 0.1 mg Q4H PRN ORAL SBP >160 12/22/16 10:45 01/21/17 10:44 12/26/16 08:25 Dextrose (Dextrose 50%) STAT PRN IV Hypoglycemia 12/17/16 07:30 01/16/17 07:29 Furosemide (Lasix) 40 mg DAILY IV 12/31/16 09:00 01/30/17 08:59 12/31/16 08:52 Hydrocortisone 1 supp 1 supp BIDPRN PRN RECTAL Anal discomfort/swelling/bleed 01/01/17 17:00 01/31/17 16:59 Insulin Aspart (NovoLOG) No Dose Q6HR SUBQ 12/17/16 12:00 01/16/17 11:59 01/01/17 00:11 Lisinopril (Zestril) 10 mg DAILY ORAL 12/31/16 09:00 01/30/17 08:59 01/01/17 08:53 Lorazepam (Ativan 2mg/ml 1ml) 1 mg Q4H PRN IV For Anxiety 12/30/16 14:00 01/06/17 13:59 Metolazone (Zaroxolyn) 2.5 mg DAILY@0800 ORAL 12/30/16 08:00 01/29/17 07:59 01/01/17 08:53 Morphine Sulfate (Morphine Sulfate) 4 mg Q4H PRN IVP Severe Pain (Pain Scale 7-10) 12/27/16 12:15 01/03/17 12:14 01/01/17 00:39 Pantoprazole (Protonix) 40 mg DAILY IVP 12/20/16 09:00 01/19/17 08:59 01/01/17 08:53 Potassium Chloride (KCl 10mEq/100ml Premix) 100 ml @ 100 mls/hr Q1H IVPB 01/01/17 08:30 01/01/17 12:29 01/01/17 08:30 Sucralfate (Carafate) 1 gm FOUR TIMES A DAY ORAL 12/17/16 09:00 01/16/17 08:59 01/01/17 08:53 OSCAR ANDERSON M.D. Jan 01, 2017 11:10
--- NOTE | 2017-01-01 11:18 | Pre-Procedure Note/Attestation ---
Pre-Procedure Note/Attestation Complete Prior to Procedure Planned Procedure: not applicable Procedure Narrative: Tracheostomy Indications for Procedure Pre-Operative Diagnosis: Respiratory failure requiring prolonged ventilation Attestation I attest that I discussed the nature of the procedure; its benefits; risks and complications; and alternatives (and the risks and benefits of such alternatives ), prior to the procedure, with the patient (or the patient's legal aircraft sales representative). I attest that, if there was a reasonable possibility of needing a blood transfusion, the patient (or the patient's legal aircraft sales representative) was given the [facility] standardized written summary, pursuant to the [place] Blood Safety Act ([place] Health and Safety Code # 1645, as amended). I attest that I re-evaluated the patient just prior to the surgery and that there has been no change in the patient's H&P, except as documented below: Rodrigo Andino Jan 01, 2017 11:18
--- NOTE | 2017-01-01 11:56 | Cardiology Progress Note ---
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 on anticoagulation perm afib on anticoagulation with Coumadin coagulopathy now elevated due to med interaction adn disease process leukocytosis ARF intra abd hematomas brbpr hypernatremia na is elevated more today will hold diuretics ct performed 12/24/2016 showed multi hematomas in barber bd cavity d/w rn bp med probably hold for today until more awake slow wean now post trach s/p transfusion is off heparin restart ashleigh safe post procedure to prevent vavle issue will restart 8 hour post trach to min bleedign risk d/w rn 2000 bolus then per pharmacy protochol Subjective Subjective on the vent ,s/p trach Objective Last 24 Hour Vital Signs Date Time Temp Pulse Resp B/P Pulse Ox O2 Delivery O2 Flow Rate FiO2 01/01/17 11:08 94 12 40 01/01/17 11:07 84 12 100 01/01/17 10:00 104 34 147/56 96 Mechanical Ventilator 40 01/01/17 09:00 98.7 104 28 141/65 100 Mechanical Ventilator 40 01/01/17 08:53 142/67 01/01/17 08:53 94 142/67 01/01/17 08:43 100 01/01/17 08:43 93 24 40 01/01/17 08:00 99 24 139/56 96 Mechanical Ventilator 40 01/01/17 08:00 94 01/01/17 08:00 40 01/01/17 07:07 92 20 40 01/01/17 07:00 88 17 148/46 96 Mechanical Ventilator 40 01/01/17 06:00 78 17 155/44 98 Mechanical Ventilator 40 01/01/17 05:21 78 20 40 01/01/17 05:00 84 16 155/48 98 Mechanical Ventilator 40 01/01/17 04:00 40 01/01/17 04:00 87 01/01/17 04:00 98.3 73 19 151/54 99 Mechanical Ventilator 40 01/01/17 03:25 72 18 40 01/01/17 03:00 74 18 156/52 98 Mechanical Ventilator 40 01/01/17 02:00 72 18 155/41 97 Mechanical Ventilator 40 01/01/17 01:09 98.4 01/01/17 01:00 75 20 40 01/01/17 01:00 88 19 135/54 98 Mechanical Ventilator 40 01/01/17 00:00 98.4 73 19 154/56 97 Mechanical Ventilator 40 01/01/17 00:00 40 01/01/17 00:00 83 12/31/16 23:08 78 18 40 12/31/16 23:00 98 19 151/41 100 Mechanical Ventilator 40 12/31/16 22:00 77 19 153/52 99 Mechanical Ventilator 40 12/31/16 21:18 78 135/49 12/31/16 21:00 81 20 135/49 98 Mechanical Ventilator 40 12/31/16 20:55 79 17 40 12/31/16 20:00 40 12/31/16 20:00 78 12/31/16 20:00 97.8 71 18 149/37 99 Mechanical Ventilator 40 12/31/16 19:11 92 18 40 12/31/16 19:00 78 17 147/34 98 Mechanical Ventilator 40 12/31/16 18:00 79 17 156/57 98 Mechanical Ventilator 40 12/31/16 17:00 77 15 143/58 98 Mechanical Ventilator 40 12/31/16 16:57 80 15 40 12/31/16 16:00 98.1 82 16 142/54 100 Mechanical Ventilator 40 12/31/16 16:00 40 12/31/16 16:00 86 12/31/16 15:00 74 15 40 12/31/16 15:00 74 15 159/55 100 Mechanical Ventilator 40 12/31/16 14:00 85 18 155/43 100 Mechanical Ventilator 40 12/31/16 13:00 85 18 145/43 98 Mechanical Ventilator 40 12/31/16 12:50 83 15 40 12/31/16 12:00 40 12/31/16 12:00 98.2 86 17 128/50 100 Mechanical Ventilator 40 12/31/16 12:00 82 General Appearance: no apparent distress, alert, on vent Neck: supple Cardiovascular: irregularly irregular, other - mechanical heart sound Respiratory/Chest: lungs clear - anteriorly Abdomen: normal bowel sounds, non tender, soft Extremities: non-tender, moderate edema Intake and Output 12/31/16 01/01/17 19:00 07:00 Intake Total 1888.84 ml 934.13 ml Output Total 1490 ml 800 ml Balance 398.84 ml 134.13 ml Free Water 200 ml 200 ml IV Total 778.84 ml 284.13 ml Tube Feeding 600 ml 450 ml Blood Product 250 ml Other 60 ml Output Urine Total 1490 ml 800 ml # Bowel Movements 4 2 Laboratory Tests Test 12/31/16 12:50 12/31/16 15:11 01/01/17 04:10 01/01/17 07:35 Activated Partial Thromboplast Time 93 SEC (23-33) H 86 SEC (23-33) H Arterial Blood pH 7.399 (7.350-7.450) 7.440 (7.350-7.450) Arterial Blood Partial Pressure CO2 71.4 mmHg (35.0-45.0) *H 55.0 mmHg (35.0-45.0) H Arterial Blood Partial Pressure O2 79.9 mmHg (75.0-100.0) 83.2 mmHg (75.0-100.0) Arterial Blood HCO3 43.1 mmol/L (22.0-26.0) H 36.5 mmol/L (22.0-26.0) H Arterial Blood Oxygen Saturation 94.6 % (92.0-98.0) 96.0 % (92.0-98.0) Arterial Blood Base Excess 15.9 11 Ok Test Positive Positive White Blood Count 12.3 K/UL (4.8-10.8) H Red Blood Count 2.71 M/UL (4.20-5.40) L Hemoglobin 8.4 G/DL (12.0-16.0) L Hematocrit 27.2 % (37.0-47.0) L Mean Corpuscular Volume 101 FL (80-99) H Mean Corpuscular Hemoglobin 31.0 PG (27.0-31.0) Mean Corpuscular Hemoglobin Concent 30.9 G/DL (32.0-36.0) L Red Cell Distribution Width 17.9 % (11.6-14.8) H Platelet Count 235 K/UL (150-450) Mean Platelet Volume 8.8 FL (6.5-10.1) Neutrophils (%) (Auto) 72.0 % (45.0-75.0) Lymphocytes (%) (Auto) 15.9 % (20.0-45.0) L Monocytes (%) (Auto) 8.9 % (1.0-10.0) Eosinophils (%) (Auto) 2.4 % (0.0-3.0) Basophils (%) (Auto) 0.8 % (0.0-2.0) Sodium Level 155 mEQ/L (135-145) H Potassium Level 3.3 mEQ/L (3.4-4.9) L Chloride Level 108 mEQ/L (98-107) H Carbon Dioxide Level 46 mEQ/L (20-30) *H Anion Gap 1 (5-15) L Blood Urea Nitrogen 37 mg/dL (7-23) H Creatinine 0.8 mg/dL (0.5-0.9) Estimat Glomerular Filtration Rate > 60 mL/min (>60) Glucose Level 147 mg/dL (74-106) H Calcium Level 8.6 mg/dL (8.6-10.2) Phosphorus Level 3.6 mg/dL (2.5-4.8) Magnesium Level 2.1 mg/dL (1.7-2.5) Total Bilirubin 0.8 mg/dL (0.0-1.2) Aspartate Amino Transf (AST/SGOT) 24 U/L (5-40) Alanine Aminotransferase (ALT/SGPT) 17 U/L (3-33) Alkaline Phosphatase 109 U/L (35-104) H Total Protein 6.4 g/dL (6.6-8.7) L Albumin 2.3 g/dL (3.5-5.2) L Globulin 4.1 g/dL Albumin/Globulin Ratio 0.5 (1.0-2.7) L Test 01/01/17 09:00 Prothrombin Time 10.7 SEC (9.30-11.50) Prothromb Time International Ratio 1.1 (0.9-1.1) ANNE RAM Jan 01, 2017 11:56
--- NOTE | 2017-01-01 13:51 | Diagnostic Imaging Report ---
Indications: DYSPNEA Technique: Portable AP chest Findings: Comparison: 12/31/16 Diffuse bilateral mixed interstitial and alveolar lung opacities persist, apparently increased in severity. Cardiac silhouette remains enlarged. Subsegmental atelectasis left lung base unchanged. Lines and tubes remain in place. IMPRESSION: Apparent worsening of bilateral pulmonary alveolar opacities compatible with progression of pulmonary edema versus pneumonitis. Underlying lung masses not excludable. No other change from one day prior
--- NOTE | 2017-01-01 13:51 | GI Progress Note ---
Assessment/Plan Problems: (1) Pancreatitis ICD Codes: K85.9 - Acute pancreatitis, unspecified SNOMED: 82370051 Qualifiers: Qualified Codes: K85.10 - Biliary acute pancreatitis without necrosis or infection (2) Abdominal pain ICD Codes: R10.9 - Unspecified abdominal pain SNOMED: 20187830, 710044899 (3) Iron deficiency anemia ICD Codes: D50.9 - Iron deficiency anemia, unspecified SNOMED: 68942165 (4) Colon polyp ICD Codes: K63.5 - Polyp of colon SNOMED: 46206752 Status: unchanged Status Narrative Discussed with Dr. Gipson. Assessment/Plan Assessment Pancreatitis - resolving, but abdomen still very distended cholelithiasis, no e/o choledocholithiasis Leukocytosis improving Respiratory failure Azotemia improving Anemia colon polyp fu CT >> New finding of a 6 x 4.4 x 4.9 cm masslike lesion in the left paracolic gutter, which compresses and splays but does not appear to obstruct an adjacent small bowel loop, see full report. GB surgery on hold Assessment/Plan trach today, will follow with PEG tomorrow - NPO @ [place]. - hold all blood thinners abx monitor H&H, transfuse prn ppi + cararate monitor amylase/lipase follow labs supportive care Subjective Subjective limited Objective Last 24 Hour Vital Signs Date Time Temp Pulse Resp B/P Pulse Ox O2 Delivery O2 Flow Rate FiO2 01/01/17 13:00 80 12 92/47 96 Mechanical Ventilator 40 01/01/17 12:42 92 14 40 01/01/17 12:00 40 01/01/17 12:00 98.1 79 14 114/56 97 Mechanical Ventilator 40 01/01/17 12:00 87 01/01/17 11:08 94 12 40 01/01/17 11:07 84 12 100 01/01/17 11:00 83 15 109/56 96 Mechanical Ventilator 40 01/01/17 10:00 104 34 147/56 96 Mechanical Ventilator 40 01/01/17 09:00 98.7 104 28 141/65 100 Mechanical Ventilator 40 01/01/17 08:53 142/67 01/01/17 08:53 94 142/67 01/01/17 08:43 100 01/01/17 08:43 93 24 40 01/01/17 08:00 99 24 139/56 96 Mechanical Ventilator 40 01/01/17 08:00 94 01/01/17 08:00 40 01/01/17 07:07 92 20 40 01/01/17 07:00 88 17 148/46 96 Mechanical Ventilator 40 01/01/17 06:00 78 17 155/44 98 Mechanical Ventilator 40 01/01/17 05:21 78 20 40 01/01/17 05:00 84 16 155/48 98 Mechanical Ventilator 40 01/01/17 04:00 40 01/01/17 04:00 87 01/01/17 04:00 98.3 73 19 151/54 99 Mechanical Ventilator 40 01/01/17 03:25 72 18 40 01/01/17 03:00 74 18 156/52 98 Mechanical Ventilator 40 01/01/17 02:00 72 18 155/41 97 Mechanical Ventilator 40 01/01/17 01:09 98.4 01/01/17 01:00 75 20 40 01/01/17 01:00 88 19 135/54 98 Mechanical Ventilator 40 01/01/17 00:00 98.4 73 19 154/56 97 Mechanical Ventilator 40 01/01/17 00:00 40 01/01/17 00:00 83 12/31/16 23:08 78 18 40 12/31/16 23:00 98 19 151/41 100 Mechanical Ventilator 40 12/31/16 22:00 77 19 153/52 99 Mechanical Ventilator 40 12/31/16 21:18 78 135/49 12/31/16 21:00 81 20 135/49 98 Mechanical Ventilator 40 12/31/16 20:55 79 17 40 12/31/16 20:00 40 12/31/16 20:00 78 12/31/16 20:00 97.8 71 18 149/37 99 Mechanical Ventilator 40 12/31/16 19:11 92 18 40 12/31/16 19:00 78 17 147/34 98 Mechanical Ventilator 40 12/31/16 18:00 79 17 156/57 98 Mechanical Ventilator 40 12/31/16 17:00 77 15 143/58 98 Mechanical Ventilator 40 12/31/16 16:57 80 15 40 12/31/16 16:00 98.1 82 16 142/54 100 Mechanical Ventilator 40 12/31/16 16:00 40 12/31/16 16:00 86 12/31/16 15:00 74 15 40 12/31/16 15:00 74 15 159/55 100 Mechanical Ventilator 40 12/31/16 14:00 85 18 155/43 100 Mechanical Ventilator 40 Intake and Output 12/31/16 01/01/17 19:00 07:00 Intake Total 1888.84 ml 934.13 ml Output Total 1490 ml 800 ml Balance 398.84 ml 134.13 ml Free Water 200 ml 200 ml IV Total 778.84 ml 284.13 ml Tube Feeding 600 ml 450 ml Blood Product 250 ml Other 60 ml Output Urine Total 1490 ml 800 ml # Bowel Movements 4 2 Laboratory Tests Test 12/31/16 15:11 01/01/17 04:10 01/01/17 07:35 01/01/17 09:00 Arterial Blood pH 7.399 (7.350-7.450) 7.440 (7.350-7.450) Arterial Blood Partial Pressure CO2 71.4 mmHg (35.0-45.0) *H 55.0 mmHg (35.0-45.0) H Arterial Blood Partial Pressure O2 79.9 mmHg (75.0-100.0) 83.2 mmHg (75.0-100.0) Arterial Blood HCO3 43.1 mmol/L (22.0-26.0) H 36.5 mmol/L (22.0-26.0) H Arterial Blood Oxygen Saturation 94.6 % (92.0-98.0) 96.0 % (92.0-98.0) Arterial Blood Base Excess 15.9 11 Ok Test Positive Positive White Blood Count 12.3 K/UL (4.8-10.8) H Red Blood Count 2.71 M/UL (4.20-5.40) L Hemoglobin 8.4 G/DL (12.0-16.0) L Hematocrit 27.2 % (37.0-47.0) L Mean Corpuscular Volume 101 FL (80-99) H Mean Corpuscular Hemoglobin 31.0 PG (27.0-31.0) Mean Corpuscular Hemoglobin Concent 30.9 G/DL (32.0-36.0) L Red Cell Distribution Width 17.9 % (11.6-14.8) H Platelet Count 235 K/UL (150-450) Mean Platelet Volume 8.8 FL (6.5-10.1) Neutrophils (%) (Auto) 72.0 % (45.0-75.0) Lymphocytes (%) (Auto) 15.9 % (20.0-45.0) L Monocytes (%) (Auto) 8.9 % (1.0-10.0) Eosinophils (%) (Auto) 2.4 % (0.0-3.0) Basophils (%) (Auto) 0.8 % (0.0-2.0) Activated Partial Thromboplast Time 86 SEC (23-33) H Sodium Level 155 mEQ/L (135-145) H Potassium Level 3.3 mEQ/L (3.4-4.9) L Chloride Level 108 mEQ/L (98-107) H Carbon Dioxide Level 46 mEQ/L (20-30) *H Anion Gap 1 (5-15) L Blood Urea Nitrogen 37 mg/dL (7-23) H Creatinine 0.8 mg/dL (0.5-0.9) Estimat Glomerular Filtration Rate > 60 mL/min (>60) Glucose Level 147 mg/dL (74-106) H Calcium Level 8.6 mg/dL (8.6-10.2) Phosphorus Level 3.6 mg/dL (2.5-4.8) Magnesium Level 2.1 mg/dL (1.7-2.5) Total Bilirubin 0.8 mg/dL (0.0-1.2) Aspartate Amino Transf (AST/SGOT) 24 U/L (5-40) Alanine Aminotransferase (ALT/SGPT) 17 U/L (3-33) Alkaline Phosphatase 109 U/L (35-104) H Total Protein 6.4 g/dL (6.6-8.7) L Albumin 2.3 g/dL (3.5-5.2) L Globulin 4.1 g/dL Albumin/Globulin Ratio 0.5 (1.0-2.7) L Prothrombin Time 10.7 SEC (9.30-11.50) Prothromb Time International Ratio 1.1 (0.9-1.1) Height (Feet): 5 Height (Inches): 1.00 Weight (Pounds): 145 General Appearance: no apparent distress Cardiovascular: normal rate Respiratory/Chest: normal breath sounds, no respiratory distress Abdominal Exam: other - s/p trach Objective Service Date: 12/11/16 Procedure: MRI Abdomen no Contrast Indication: Abdominal pain, possible pancreatitis Findings: Multiple calcifications are seen within the gallbladder. There is a ductal structure cephalad to the gallbladder which contains a filling defect. This is probably the cystic duct, but could be an extrahepatic bile duct, and it is uncertain which of these is. The gallbladder wall is not thickened. The extrahepatic bile ducts are ectatic, with the common bile duct measuring up to 9 mm diameter , but no downstream filling defects are demonstrated. The common bile duct terminates abruptly at the level of the ampulla. The pancreatic duct is mildly ectatic, measuring 3-4 mm in diameter. No intraluminal filling defects are demonstrated. A 7 mm fluid signal lesion is seen within the uncinate process of the pancreas. This may actually be a duodenal diverticulum which is seen on the recent CT scan. There is apparent swelling of the pancreas and considerable free intraperitoneal fluid. No free intraperitoneal fluid presumably increased from the prior CT scan. There are dilated small bowel loops, likely indicating ileus. The liver is unremarkable. The adrenals and kidneys are unremarkable. There are bilateral small pleural effusions. The spleen is unremarkable. The heart is enlarged Impression: Cholelithiasis. There is also a calculus within the duct adjacent to the gallbladder which is probably the cystic duct but could be an extrahepatic bile duct. Extrahepatic and central intrahepatic biliary ductal mild dilatation. No definite downstream calculus or pancreatic head mass to account for this, however. Prominence and edema of the pancreas, better visualized on prior CT scan, consistent with acute pancreatitis, also previously described Ascites fluid, increased from the prior CT scan, likely secondary to the acute pancreatitis Dilated small bowel loops, new since prior CT study. Suspect representing ileus related to the pancreatitis Bilateral small pleural effusions Small cystic lesion within the as a process. Suspect that this is actually the duodenal diverticulum described on recent CT scan, but could represent a tiny pseudocyst or intraductal papillary mucinous neoplasm. Cardiomegaly Lulu Dominguez N.P. Jan 01, 2017 13:51
[2017-01-01] MEDS: ceFAZolin sod 2 GM in D5W 110 ML IVPB SCH ×2 (14:39→22:09)
[2017-01-01] MEDS ORDERED: Anusol HC Supp RECTAL PRN (17:00)
[2017-01-01] MEDS: DOPamine 400mg/250ml 250 ML IV SCH (17:53)
[2017-01-01] MEDS ORDERED: Heparin 25,000u/D5W 500ml 500 ML IV SCH (19:00)
[2017-01-01] MEDS ORDERED: Heparin 5000 units/ml inj IV ONE (19:00)
[2017-01-01 19:01] LABS: BASOPHILS % (AUTO) 1.1 % (0.0-2.0); EOSINOPHILS % (AUTO) 2.1 % (0.0-3.0); MEAN CORPUSCULAR HEMOGLOBIN 33.1 PG (27.0-31.0); MEAN CORPUSCULAR VOLUME 100 FL (80-99); MEAN PLATELET VOLUME 8.7 FL (6.5-10.1); MONOCYTES % (AUTO) 8.4 % (1.0-10.0); NEUTROPHILS % (AUTO) 78.5 % (45.0-75.0); PLATELET COUNT 184 K/UL (150-450); RED BLOOD COUNT 2.42 M/UL (4.20-5.40); RED CELL DISTRIBUTION WIDTH 18.2 % (11.6-14.8); WHITE BLOOD COUNT 11.3 K/UL (4.8-10.8)
--- NOTE | 2017-01-01 20:38 | Operative Note - Dictated ---
DATE OF OPERATION: 01/01/2017 PREOPERATIVE DIAGNOSES: 1. Acute severe pancreatitis. 2. Respiratory failure, requiring prolonged ventilation. POSTOPERATIVE DIAGNOSES: 1. Acute severe pancreatitis. 2. Respiratory failure, requiring prolonged ventilation. OPERATION PERFORMED: Open tracheostomy. ATTENDING SURGEON: Rodrigo Bello M.D. RACECAR DRIVER: None. ANESTHESIOLOGIST: Kermit Ford M.D. ANESTHESIA: General, GETA. SPECIMENS: None. COMPLICATIONS: None. CONDITION: Stable. FLUIDS: Please see anesthesia records. ESTIMATED BLOOD LOSS: Minimal. DRAINS: None. IMPLANT: An 8-Mexican Shiley tracheostomy tube. ANTIBIOTICS: Ancef 1 g IV given one hour prior to cut time. WOUND CLASSIFICATION: Class 1. INDICATIONS FOR PROCEDURE: The patient is a 71-year-old female who presented to the hospital with acute severe pancreatitis. During hospital course, the patient went into respiratory failure requiring intubation and has been intubated for sometime now. The patient seems to be respiratory dependent temporarily and maybe for a prolonged period of time. At this time, a decision was made for tracheostomy after discussing the risks, benefits, and alternatives with the patient and the family. The patient and family expressed their desire to proceed with surgery. OPERATIVE NOTE: The patient was taken to the operating room and placed on the operating table in the supine position directly from surgical intensive care unit. All bony prominences were well padded with gel pads. Prior to entering the operating room, the patient was already intubated and had an NG tube and Mathias in place. General anesthesia was induced. A surgical time-out was taken identifying the patient, procedure, operating staff, and surgical staff. The patient's neck was then mildly extended and a roll was placed underneath the patient. The anterior neck was then prepped and draped with chlorhexidine in the standard surgical fashion. Attention was directed at the midline trachea where a horizontal skin incision was made approximately just inferior to the cricoid membrane, approximately two fingerbreadths above the sternal notch. Once this was complete, the incision was taken down through the subcutaneous fat and platysma with electrocautery. The strap muscles were identified and the midline identified and taken down to the cricothyroid membrane. The strap muscles were retracted laterally and thyroid isthmus was retracted superiorly. Once this was completed, the trachea was inspected and visible. The second tracheal ring was identified. A tracheostomy hook was placed between the first and second tracheal rings and the trachea was retracted superiorly. A vertical incision was made through the second and third rings with #11 scalpel blade. This incision was then taken laterally and inferiorly making a small window within the trachea. Once the window was cut out, stay sutures were placed on the right and left portions of the tracheal rings using a 2-0 Prolene suture. These were to be left long in case trachea was dislodged and traction was required for placement of a secondary tube. At this time, Anesthesia was alerted and the endotracheal tube was slowly withdrawn under direct visualization. Once the endotracheal tube was above the area of incision within the trachea, an 8-Mexican Shiley tracheostomy tube was inserted and advanced as the endotracheal tube was withdrawn completely. The position was confirmed with end-tidal CO2. Hemostasis was achieved on the incision with electrocautery. The tracheostomy tube was then sutured in place. The tracheostomy tie was placed and tied around the neck. The patient tolerated the procedure well and was returned to the ICU in a stable condition postoperatively. Rodrigo Andino M.D. DR: JACKIE JOB#: [id number] CC: CHEO
[2017-01-02] VITALS (24 sets, daily range): BP systolic 94–145; BP diastolic 32–62
[2017-01-02] MEDS: NovoLOG Insulin Flexpen SUBQ SCH ×5 (00:02→23:46)
[2017-01-02] MEDS ORDERED: Heparin 25,000u/D5W 500ml 500 ML IV SCH ×2 (02:41→19:00)
[2017-01-02] MEDS ORDERED: Heparin 5000 units/ml inj IV ONE (02:45)
[2017-01-02 03:27] LABS: INR 1.1 (0.9-1.1); PROTHROMBIN TIME 10.9 SEC (9.30-11.50)
[2017-01-02] MEDS: ceFAZolin sod 2 GM in D5W 110 ML IVPB SCH ×3 (05:33→21:30)
[2017-01-02 06:20] LABS: ALBUMIN/GLOBULIN RATIO 0.5 (1.0-2.7); CREATININE 1.3 mg/dL (0.5-0.9); GLOMERULAR FILTRATION RATE 40.5 mL/min (>60); MAGNESIUM 2.1 mg/dL (1.7-2.5); PHOSPHORUS 4.6 mg/dL (2.5-4.8); POTASSIUM 3.9 mEQ/L (3.4-4.9)
[2017-01-02 06:31] LABS: MEAN CORPUSCULAR HEMOGLOBIN 30.8 PG (27.0-31.0); MEAN CORPUSCULAR VOLUME 99 FL (80-99); MEAN PLATELET VOLUME 9.7 FL (6.5-10.1); PLATELET COUNT 209 K/UL (150-450); RED BLOOD COUNT 2.48 M/UL (4.20-5.40); RED CELL DISTRIBUTION WIDTH 18.4 % (11.6-14.8); WHITE BLOOD COUNT 13.7 K/UL (4.8-10.8)
[2017-01-02] MEDS: METOLAZONE 2.5 MG ORAL SCH (07:41)
[2017-01-02] MEDS: Sucralfate 1gm tab ORAL SCH ×4 (07:41→20:48)
[2017-01-02 08:31] LABS: ABG BASE EXCESS 18.1; ABG PCO2 60.4 mmHg (35.0-45.0)
[2017-01-02 08:32] LABS: ABG ALLEN TEST POSITIVE
[2017-01-02 08:37] LABS: EOSINOPHILS % (MANUAL) 3 % (0-3); LYMPHOCYTES % (MANUAL) 6 % (20-45); NEUTROPHILS % (MANUAL) 77 % (45-75); TOTAL CELLS COUNTED 100
[2017-01-02 08:38] LABS: ANISOCYTOSIS 2+; BAND NEUTROPHILS % (MANUAL) 0 % (0-8); BASOPHILS % (MANUAL) 0 % (0-2); HYPOCHROMASIA 3+; PLATELET ESTIMATE ADEQUATE; PLATELET MORPHOLOGY NORMAL
[2017-01-02] MEDS: Lisinopril 10mg tab ORAL SCH (08:47)
[2017-01-02] MEDS: Pantoprazole Inj IVP SCH (09:27)
--- NOTE | 2017-01-02 09:48 | 48 Hour Post Anesthesia Eval ---
Post Anesthesia Evaluation Procedure: Trach Date of Evaluation: Jan 02, 2017 Time of Evaluation: 09:47 Blood Pressure Systolic: 114 0: 46 Pulse Rate: 87 Respiratory Rate: 20 - Vent Temperature (Fahrenheit): 99 O2 Sat by Pulse Oximetry: 93 Airway: patent Nausea: No Vomiting: No Pain Intensity: 0 Hydration Status: adequate Cardiopulmonary Status: Stable Mental Status/LOC: patient returned to baseline Follow-up Care/Observations: 0 Post-Anesthesia Complications: 0 Follow-up care needed: N/A Reese Grimes MD Jan 02, 2017 09:48
--- NOTE | 2017-01-02 10:07 | Pulmonolgy Critical Care Note ---
Critical Care - Asmt/Plan Problems: (1) Respiratory failure requiring intubation (2) Sepsis (3) Pancreatitis (4) ATN (acute tubular necrosis) (5) Atrial fibrillation Respiratory: monitor respiratory rate, adjust FIO2, CXR Cardiac: continue to monitor HR/BP Renal: F/U I&O, keep IV fluid, check electrolytes Infectious Disease: check cultures Gastrointestinal: continue feedings/current rate Endocrine: monitor blood sugar, continue sliding scale insulin Hematologic: monitor H/H, transfuse if hgb<8.5 Neurologic: PRN Ativan, keep patient comfortable Prophylaxis: Protonix Disposition: keep in ICU Notes Reviewed: cardio, 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 with: nurses, consultants, community case managermds manager - Objective Last 24 Hour Vital Signs Date Time Temp Pulse Resp B/P Pulse Ox O2 Delivery O2 Flow Rate FiO2 01/02/17 10:00 107 20 120/61 93 Mechanical Ventilator 60 01/02/17 09:48 87 20 93 01/02/17 09:29 84 15 60 01/02/17 09:00 103 19 131/41 93 Mechanical Ventilator 60 01/02/17 08:00 60 01/02/17 08:00 100 01/02/17 08:00 99.0 87 20 114/46 93 Mechanical Ventilator 60 01/02/17 07:01 84 15 60 01/02/17 07:00 87 20 113/36 93 Mechanical Ventilator 60 01/02/17 06:00 84 15 103/44 93 Mechanical Ventilator 60 01/02/17 05:12 77 15 80 01/02/17 05:00 80 15 103/50 95 Mechanical Ventilator 80 01/02/17 04:00 98.8 96 15 95/46 95 Mechanical Ventilator 80 01/02/17 04:00 80 01/02/17 04:00 91 01/02/17 03:17 92 15 80 01/02/17 03:00 97 15 102/43 97 Mechanical Ventilator 80 01/02/17 02:00 97 14 98/41 96 Mechanical Ventilator 80 01/02/17 01:30 88 15 80 01/02/17 01:00 82 15 95/38 96 Mechanical Ventilator 80 01/02/17 00:00 98.7 80 15 102/53 96 Mechanical Ventilator 80 01/02/17 00:00 87 01/02/17 00:00 80 01/01/17 23:13 81 15 80 01/01/17 23:00 89 15 102/38 97 Mechanical Ventilator 80 01/01/17 22:00 84 15 98/32 96 Mechanical Ventilator 80 01/01/17 21:20 83 15 80 01/01/17 21:00 95 94/43 01/01/17 21:00 88 15 94/43 96 Mechanical Ventilator 80 01/01/17 20:00 92 01/01/17 20:00 98.8 91 15 119/45 93 Mechanical Ventilator 40 01/01/17 20:00 40 01/01/17 19:14 92 15 40 01/01/17 19:00 84 16 104/34 99 Mechanical Ventilator 40 01/01/17 18:00 81 15 97/54 99 Mechanical Ventilator 40 01/01/17 17:53 95/43 01/01/17 17:00 80 14 98/49 97 Mechanical Ventilator 40 01/01/17 16:36 75 15 40 01/01/17 16:00 40 01/01/17 16:00 98.5 73 15 95/38 96 Mechanical Ventilator 40 01/01/17 16:00 85 01/01/17 15:00 77 14 89/48 96 Mechanical Ventilator 40 01/01/17 14:50 77 12 40 01/01/17 14:00 70 12 87/38 97 Mechanical Ventilator 40 01/01/17 13:00 80 12 92/47 96 Mechanical Ventilator 40 01/01/17 12:42 92 14 40 01/01/17 12:00 40 01/01/17 12:00 98.1 79 14 114/56 97 Mechanical Ventilator 40 01/01/17 12:00 87 01/01/17 11:08 94 12 40 01/01/17 11:07 84 12 100 01/01/17 11:00 83 15 109/56 96 Mechanical Ventilator 40 Status: awake Condition: critical HEENT: atraumatic Neck: full ROM Lungs: clear Heart: HR/BP stable, HR/BP unstable Abdomen: soft, non-tender, feeding tube Extremities: no C/C/E, edema Decubiti: location Accucheck: 121 Critical Care - Subjective ROS Limited/Unobtainable: Yes ICU Day: 15 Intubation Day: trach daty 2 Condition: critical EKG Rhythm: Sinus Rhythm FI02: 60 Vent Support Breath Rate: 15 Vent Support Mode: AC Vent Tidal Volume: 500 Sputum Amount: Small PEEP: 5.0 PIP: 38 Fluids: d5 1/2 NS 50 cc.hour Drips: dopamin drip, Heparin dirp off Tube Feeding Amount: 50 I&O: Intake and Output 01/01/17 01/02/17 19:00 07:00 Intake Total 684.965 ml 1030.836 ml Output Total 320 ml 213 ml Balance 364.965 ml 817.836 ml Free Water 120 ml IV Total 564.965 ml 1030.836 ml Output Urine Total 320 ml 213 ml # Bowel Movements 3 CXR: worse pulmonary edema ET-Tube: 7.5 ET Position: 22 Labs: Laboratory Tests Test 01/01/17 18:45 01/02/17 02:00 01/02/17 02:05 01/02/17 05:30 White Blood Count 11.3 K/UL (4.8-10.8) H 13.7 K/UL (4.8-10.8) H Red Blood Count 2.42 M/UL (4.20-5.40) L 2.48 M/UL (4.20-5.40) L Hemoglobin 8.0 G/DL (12.0-16.0) L 7.6 G/DL (12.0-16.0) L Hematocrit 24.3 % (37.0-47.0) L 24.6 % (37.0-47.0) L Mean Corpuscular Volume 100 FL (80-99) H 99 FL (80-99) Mean Corpuscular Hemoglobin 33.1 PG (27.0-31.0) H 30.8 PG (27.0-31.0) Mean Corpuscular Hemoglobin Concent 33.0 G/DL (32.0-36.0) 31.0 G/DL (32.0-36.0) L Red Cell Distribution Width 18.2 % (11.6-14.8) H 18.4 % (11.6-14.8) H Platelet Count 184 K/UL (150-450) 209 K/UL (150-450) Mean Platelet Volume 8.7 FL (6.5-10.1) 9.7 FL (6.5-10.1) Neutrophils (%) (Auto) 78.5 % (45.0-75.0) H % (45.0-75.0) Lymphocytes (%) (Auto) 10.0 % (20.0-45.0) L % (20.0-45.0) Monocytes (%) (Auto) 8.4 % (1.0-10.0) % (1.0-10.0) Eosinophils (%) (Auto) 2.1 % (0.0-3.0) % (0.0-3.0) Basophils (%) (Auto) 1.1 % (0.0-2.0) % (0.0-2.0) Activated Partial Thromboplast Time 27 SEC (23-33) 47 SEC (23-33) H Prothrombin Time 10.9 SEC (9.30-11.50) Prothromb Time International Ratio 1.1 (0.9-1.1) Differential Total Cells Counted 100 Neutrophils % (Manual) 77 % (45-75) H Lymphocytes % (Manual) 6 % (20-45) L Monocytes % (Manual) 14 % (1-10) H Eosinophils % (Manual) 3 % (0-3) Basophils % (Manual) 0 % (0-2) Band Neutrophils 0 % (0-8) Platelet Estimate Adequate Platelet Morphology Normal Hypochromasia 3+ Anisocytosis 2+ Sodium Level 147 mEQ/L (135-145) H Potassium Level 3.9 mEQ/L (3.4-4.9) Chloride Level 101 mEQ/L (98-107) Carbon Dioxide Level 42 mEQ/L (20-30) *H Anion Gap 4 (5-15) L Blood Urea Nitrogen 44 mg/dL (7-23) H Creatinine 1.3 mg/dL (0.5-0.9) #H Estimat Glomerular Filtration Rate 40.5 mL/min (>60) Glucose Level 143 mg/dL (74-106) H Calcium Level 8.0 mg/dL (8.6-10.2) L Phosphorus Level 4.6 mg/dL (2.5-4.8) Magnesium Level 2.1 mg/dL (1.7-2.5) Total Bilirubin 0.9 mg/dL (0.0-1.2) Aspartate Amino Transf (AST/SGOT) 23 U/L (5-40) Alanine Aminotransferase (ALT/SGPT) 9 U/L (3-33) Alkaline Phosphatase 123 U/L (35-104) H Total Protein 6.0 g/dL (6.6-8.7) L Albumin 2.1 g/dL (3.5-5.2) L Globulin 3.9 g/dL Albumin/Globulin Ratio 0.5 (1.0-2.7) L Test 01/02/17 08:10 Arterial Blood pH 7.479 (7.350-7.450) Arterial Blood Partial Pressure CO2 60.4 mmHg (35.0-45.0) *H Arterial Blood Partial Pressure O2 79.4 mmHg (75.0-100.0) Arterial Blood HCO3 43.9 mmol/L (22.0-26.0) H Arterial Blood Oxygen Saturation 95.8 % (92.0-98.0) Arterial Blood Base Excess 18.1 Ok Test Positive TONY BRIDGES Jan 02, 2017 10:07
--- NOTE | 2017-01-02 10:47 | Diagnostic Imaging Report ---
Indication: DYSPNEA Technique: One view of the chest Comparison: 01/01/2017 Findings: Interim conversion of endotracheal tube to tracheostomy. No evidence of pneumothorax or pneumomediastinum. Diffuse bilateral interstitial and alveolar infiltrates versus edema or cyst, unchanged. Nasogastric tube, left arm PICC remain. Postsurgical changes again demonstrated Impression: Interim conversion of endotracheal tube to a tracheostomy. No radiographically evident complication Other stable findings as described
--- NOTE | 2017-01-02 10:52 | General Progress Note ---
Progress Note Progress Note Surgery: s/p trach. doing well. no acute events. comfortable. vent improved. trach site clean and dry. wound healing. trach in good positioning. POD #1 s/p trach. recovering -trach care and management -wean vent as tolerated -medical management of acute severe pancreatitis. Rodrigo Andino Jan 02, 2017 10:51
--- NOTE | 2017-01-02 11:56 | General Progress Note ---
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 on anticoagulation Pulmonary HTN HypoAlbuminemia Plan: Keep bp above 100 syst by adjusting BP meds Optimize cardiac status K supplement as needed Adjust pulmonary status- Per GI / Surgery Avoid nephrotoxics monitor renal parameters Subjective ROS Limited/Unobtainable: No Allergies: Coded Allergies: No Known Allergies (Unverified , 09/28/14) Objective Last 24 Hour Vital Signs Date Time Temp Pulse Resp B/P Pulse Ox O2 Delivery O2 Flow Rate FiO2 01/02/17 11:21 104 18 60 01/02/17 11:00 101 20 118/53 93 Mechanical Ventilator 60 01/02/17 10:00 107 20 120/61 93 Mechanical Ventilator 60 01/02/17 09:48 87 20 93 01/02/17 09:29 84 15 60 01/02/17 09:00 103 19 131/41 93 Mechanical Ventilator 60 01/02/17 08:00 60 01/02/17 08:00 100 01/02/17 08:00 99.0 87 20 114/46 93 Mechanical Ventilator 60 01/02/17 07:01 84 15 60 01/02/17 07:00 87 20 113/36 93 Mechanical Ventilator 60 01/02/17 06:00 84 15 103/44 93 Mechanical Ventilator 60 01/02/17 05:12 77 15 80 01/02/17 05:00 80 15 103/50 95 Mechanical Ventilator 80 01/02/17 04:00 98.8 96 15 95/46 95 Mechanical Ventilator 80 01/02/17 04:00 80 01/02/17 04:00 91 01/02/17 03:17 92 15 80 01/02/17 03:00 97 15 102/43 97 Mechanical Ventilator 80 01/02/17 02:00 97 14 98/41 96 Mechanical Ventilator 80 01/02/17 01:30 88 15 80 01/02/17 01:00 82 15 95/38 96 Mechanical Ventilator 80 01/02/17 00:00 98.7 80 15 102/53 96 Mechanical Ventilator 80 01/02/17 00:00 87 01/02/17 00:00 80 01/01/17 23:13 81 15 80 01/01/17 23:00 89 15 102/38 97 Mechanical Ventilator 80 01/01/17 22:00 84 15 98/32 96 Mechanical Ventilator 80 01/01/17 21:20 83 15 80 01/01/17 21:00 95 94/43 01/01/17 21:00 88 15 94/43 96 Mechanical Ventilator 80 01/01/17 20:00 92 01/01/17 20:00 98.8 91 15 119/45 93 Mechanical Ventilator 40 01/01/17 20:00 40 01/01/17 19:14 92 15 40 01/01/17 19:00 84 16 104/34 99 Mechanical Ventilator 40 01/01/17 18:00 81 15 97/54 99 Mechanical Ventilator 40 01/01/17 17:53 95/43 01/01/17 17:00 80 14 98/49 97 Mechanical Ventilator 40 01/01/17 16:36 75 15 40 01/01/17 16:00 40 01/01/17 16:00 98.5 73 15 95/38 96 Mechanical Ventilator 40 01/01/17 16:00 85 01/01/17 15:00 77 14 89/48 96 Mechanical Ventilator 40 01/01/17 14:50 77 12 40 01/01/17 14:00 70 12 87/38 97 Mechanical Ventilator 40 01/01/17 13:00 80 12 92/47 96 Mechanical Ventilator 40 01/01/17 12:42 92 14 40 01/01/17 12:00 40 01/01/17 12:00 98.1 79 14 114/56 97 Mechanical Ventilator 40 01/01/17 12:00 87 Intake and Output 01/01/17 01/02/17 19:00 07:00 Intake Total 684.965 ml 1030.836 ml Output Total 320 ml 213 ml Balance 364.965 ml 817.836 ml Free Water 120 ml IV Total 564.965 ml 1030.836 ml Output Urine Total 320 ml 213 ml # Bowel Movements 3 Laboratory Tests 01/01/17 18:45: White Blood Count 11.3H, Red Blood Count 2.42L, Hemoglobin 8.0L, Hematocrit 24.3L, Mean Corpuscular Volume 100H, Mean Corpuscular Hemoglobin 33.1H, Mean Corpuscular Hemoglobin Concent 33.0, Red Cell Distribution Width 18.2H, Platelet Count 184, Mean Platelet Volume 8.7, Neutrophils (%) (Auto) 78.5H, Lymphocytes (%) (Auto) 10.0L, Monocytes (%) (Auto) 8.4, Eosinophils (%) (Auto) 2.1, Basophils (%) (Auto) 1.1, Activated Partial Thromboplast Time 27 01/02/17 02:00: Prothrombin Time 10.9, Prothromb Time International Ratio 1.1 01/02/17 02:05: Activated Partial Thromboplast Time 47H 01/02/17 05:30: White Blood Count 13.7H, Red Blood Count 2.48L, Hemoglobin 7.6L, Hematocrit 24.6L, Mean Corpuscular Volume 99, Mean Corpuscular Hemoglobin 30.8, Mean Corpuscular Hemoglobin Concent 31.0L, Red Cell Distribution Width 18.4H, Platelet Count 209, Mean Platelet Volume 9.7, Neutrophils (%) (Auto) , Lymphocytes (%) (Auto) , Monocytes (%) (Auto) , Eosinophils (%) (Auto) , Basophils (%) (Auto) , Differential Total Cells Counted 100, Neutrophils % ( Manual) 77H, Lymphocytes % (Manual) 6L, Monocytes % (Manual) 14H, Eosinophils % (Manual) 3, Basophils % (Manual) 0, Band Neutrophils 0, Platelet Estimate Adequate, Platelet Morphology Normal, Hypochromasia 3+, Anisocytosis 2+, Sodium Level 147H, Potassium Level 3.9, Chloride Level 101, Carbon Dioxide Level 42*H, Anion Gap 4L, Blood Urea Nitrogen 44H, Creatinine 1.3#H, Estimat Glomerular Filtration Rate 40.5, Glucose Level 143H, Calcium Level 8.0L, Phosphorus Level 4.6, Magnesium Level 2.1, Total Bilirubin 0.9, Aspartate Amino Transf (AST/SGOT ) 23, Alanine Aminotransferase (ALT/SGPT) 9, Alkaline Phosphatase 123H, Total Protein 6.0L, Albumin 2.1L, Globulin 3.9, Albumin/Globulin Ratio 0.5L 01/02/17 08:10: Arterial Blood pH 7.479H, Arterial Blood Partial Pressure CO2 60.4*H, Arterial Blood Partial Pressure O2 79.4, Arterial Blood HCO3 43.9H, Arterial Blood Oxygen Saturation 95.8, Arterial Blood Base Excess 18.1, Ok Test Positive Height (Feet): 5 Height (Inches): 1.00 Weight (Pounds): 145 General Appearance: no apparent distress EENT: other - has trach now Cardiovascular: tachycardia Respiratory/Chest: decreased breath sounds Abdomen: soft Objective other PE not changed KAMINI SNOW Jan 02, 2017 11:56
--- NOTE | 2017-01-02 12:31 | Pre-Procedure Note/Attestation ---
Pre-Procedure Note/Attestation Complete Prior to Procedure Planned Procedure: not applicable Procedure Narrative: egd/peg Indications for Procedure Pre-Operative Diagnosis: dysphagia Attestation I attest that I discussed the nature of the procedure; its benefits; risks and complications; and alternatives (and the risks and benefits of such alternatives ), prior to the procedure, with the patient (or the patient's legal business development representative). I attest that, if there was a reasonable possibility of needing a blood transfusion, the patient (or the patient's legal business development representative) was given the [facility] standardized written summary, pursuant to the [place] Blood Safety Act ([place] Health and Safety Code # 1645, as amended). I attest that I re-evaluated the patient just prior to the surgery and that there has been no change in the patient's H&P, except as documented below: BRAD NGUYEN Jan 02, 2017 12:31
--- NOTE | 2017-01-02 12:50 | Endoscopy Procedure Note ---
Endoscopy Procedure Note Indication for Procedure: dysphagia Procedures Performed: EGD, PEG Operative Findings/Diagnosis: same Specimen: none Pt Tolerated Procedure Well: Yes Estimated Blood Loss: none Anesthesiologist: rina Anesthesia: MAC Implant(s) used?: No 50 yrs or older w/o bx or poly: Not Applicable 10yrs. F/U not recommended: Not Applicable BRAD NGUYEN Jan 02, 2017 12:50
--- NOTE | 2017-01-02 14:53 | Infectious Diseases Prog Note ---
Assessment/Plan Assessment/Plan ASSESSMENT: Pancreatitis recurrent CT: Findings compatible with marked worsening of acute pancreatitis MRCP : Cholelithiasis. There is also a calculus within the duct adjacent to the gallbladder Pancreatic Enzymes improving CT of Abd : reviewed Leukocytosis ( SIRS ) mild SP Sx cholelithiasis : US of liver : Incidental finding of cholelithiasis and mild gallbladder wall thickening positive sonographic Diaz's sign LFT : Nl UTI : Mandy SCx : Mandy ( colonizer ) SP PEG 01/02 VDRF: SP trach 01/01 Cxray : Increase in bilateral congestive changes with persistent small right , probable new left pleural effusions ARF SP aortic stenosis mitral stenosis status post mitral valve replacement AFib Pulmonary hypertension PLAN: - monitor pt off of Ab Rx ( on Ancef savanah-op ) ( 12/28 SP Diflucan d# 10 ) ( 12/24 SP Merrem d# 14 /14 ) - monitor CBC, temperatures, - monitor LFT - GI f/u - Sx is following for possible Cholecystectomy later - VDRF - Dopamine ( renal dose ) Subjective Allergies: Coded Allergies: No Known Allergies (Unverified , 09/28/14) Subjective on Vent Objective Vital Signs Last 24 Hour Vital Signs Date Time Temp Pulse Resp B/P Pulse Ox O2 Delivery O2 Flow Rate FiO2 01/02/17 14:31 80 01/02/17 14:00 105 25 138/50 93 Mechanical Ventilator 60 01/02/17 13:00 84 20 119/54 93 Mechanical Ventilator 60 01/02/17 12:39 99 16 60 01/02/17 12:00 60 01/02/17 12:00 116 01/02/17 12:00 98.8 110 21 145/57 93 Mechanical Ventilator 60 01/02/17 11:21 104 18 60 01/02/17 11:00 101 20 118/53 93 Mechanical Ventilator 60 01/02/17 10:00 107 20 120/61 93 Mechanical Ventilator 60 01/02/17 09:48 87 20 93 01/02/17 09:29 84 15 60 01/02/17 09:00 103 19 131/41 93 Mechanical Ventilator 60 01/02/17 08:00 60 01/02/17 08:00 100 01/02/17 08:00 99.0 87 20 114/46 93 Mechanical Ventilator 60 01/02/17 07:01 84 15 60 01/02/17 07:00 87 20 113/36 93 Mechanical Ventilator 60 01/02/17 06:00 84 15 103/44 93 Mechanical Ventilator 60 01/02/17 05:12 77 15 80 01/02/17 05:00 80 15 103/50 95 Mechanical Ventilator 80 01/02/17 04:00 98.8 96 15 95/46 95 Mechanical Ventilator 80 01/02/17 04:00 80 01/02/17 04:00 91 01/02/17 03:17 92 15 80 01/02/17 03:00 97 15 102/43 97 Mechanical Ventilator 80 01/02/17 02:00 97 14 98/41 96 Mechanical Ventilator 80 01/02/17 01:30 88 15 80 01/02/17 01:00 82 15 95/38 96 Mechanical Ventilator 80 01/02/17 00:00 98.7 80 15 102/53 96 Mechanical Ventilator 80 01/02/17 00:00 87 01/02/17 00:00 80 01/01/17 23:13 81 15 80 01/01/17 23:00 89 15 102/38 97 Mechanical Ventilator 80 01/01/17 22:00 84 15 98/32 96 Mechanical Ventilator 80 01/01/17 21:20 83 15 80 01/01/17 21:00 95 94/43 01/01/17 21:00 88 15 94/43 96 Mechanical Ventilator 80 01/01/17 20:00 92 01/01/17 20:00 98.8 91 15 119/45 93 Mechanical Ventilator 40 01/01/17 20:00 40 01/01/17 19:14 92 15 40 01/01/17 19:00 84 16 104/34 99 Mechanical Ventilator 40 01/01/17 18:00 81 15 97/54 99 Mechanical Ventilator 40 01/01/17 17:53 95/43 01/01/17 17:00 80 14 98/49 97 Mechanical Ventilator 40 01/01/17 16:36 75 15 40 01/01/17 16:00 40 01/01/17 16:00 98.5 73 15 95/38 96 Mechanical Ventilator 40 01/01/17 16:00 85 01/01/17 15:00 77 14 89/48 96 Mechanical Ventilator 40 Height (Feet): 5 Height (Inches): 1.00 Weight (Pounds): 145 HEENT: atraumatic Respiratory/Chest: no respiratory distress Cardiovascular: regular rhythm Abdomen: no organomegaly Laboratory Tests Test 01/01/17 18:45 01/02/17 02:00 01/02/17 02:05 01/02/17 05:30 White Blood Count 11.3 K/UL (4.8-10.8) H 13.7 K/UL (4.8-10.8) H Red Blood Count 2.42 M/UL (4.20-5.40) L 2.48 M/UL (4.20-5.40) L Hemoglobin 8.0 G/DL (12.0-16.0) L 7.6 G/DL (12.0-16.0) L Hematocrit 24.3 % (37.0-47.0) L 24.6 % (37.0-47.0) L Mean Corpuscular Volume 100 FL (80-99) H 99 FL (80-99) Mean Corpuscular Hemoglobin 33.1 PG (27.0-31.0) H 30.8 PG (27.0-31.0) Mean Corpuscular Hemoglobin Concent 33.0 G/DL (32.0-36.0) 31.0 G/DL (32.0-36.0) L Red Cell Distribution Width 18.2 % (11.6-14.8) H 18.4 % (11.6-14.8) H Platelet Count 184 K/UL (150-450) 209 K/UL (150-450) Mean Platelet Volume 8.7 FL (6.5-10.1) 9.7 FL (6.5-10.1) Neutrophils (%) (Auto) 78.5 % (45.0-75.0) H % (45.0-75.0) Lymphocytes (%) (Auto) 10.0 % (20.0-45.0) L % (20.0-45.0) Monocytes (%) (Auto) 8.4 % (1.0-10.0) % (1.0-10.0) Eosinophils (%) (Auto) 2.1 % (0.0-3.0) % (0.0-3.0) Basophils (%) (Auto) 1.1 % (0.0-2.0) % (0.0-2.0) Activated Partial Thromboplast Time 27 SEC (23-33) 47 SEC (23-33) H Prothrombin Time 10.9 SEC (9.30-11.50) Prothromb Time International Ratio 1.1 (0.9-1.1) Differential Total Cells Counted 100 Neutrophils % (Manual) 77 % (45-75) H Lymphocytes % (Manual) 6 % (20-45) L Monocytes % (Manual) 14 % (1-10) H Eosinophils % (Manual) 3 % (0-3) Basophils % (Manual) 0 % (0-2) Band Neutrophils 0 % (0-8) Platelet Estimate Adequate Platelet Morphology Normal Hypochromasia 3+ Anisocytosis 2+ Sodium Level 147 mEQ/L (135-145) H Potassium Level 3.9 mEQ/L (3.4-4.9) Chloride Level 101 mEQ/L (98-107) Carbon Dioxide Level 42 mEQ/L (20-30) *H Anion Gap 4 (5-15) L Blood Urea Nitrogen 44 mg/dL (7-23) H Creatinine 1.3 mg/dL (0.5-0.9) #H Estimat Glomerular Filtration Rate 40.5 mL/min (>60) Glucose Level 143 mg/dL (74-106) H Calcium Level 8.0 mg/dL (8.6-10.2) L Phosphorus Level 4.6 mg/dL (2.5-4.8) Magnesium Level 2.1 mg/dL (1.7-2.5) Total Bilirubin 0.9 mg/dL (0.0-1.2) Aspartate Amino Transf (AST/SGOT) 23 U/L (5-40) Alanine Aminotransferase (ALT/SGPT) 9 U/L (3-33) Alkaline Phosphatase 123 U/L (35-104) H Total Protein 6.0 g/dL (6.6-8.7) L Albumin 2.1 g/dL (3.5-5.2) L Globulin 3.9 g/dL Albumin/Globulin Ratio 0.5 (1.0-2.7) L Test 01/02/17 08:10 Arterial Blood pH 7.479 (7.350-7.450) Arterial Blood Partial Pressure CO2 60.4 mmHg (35.0-45.0) *H Arterial Blood Partial Pressure O2 79.4 mmHg (75.0-100.0) Arterial Blood HCO3 43.9 mmol/L (22.0-26.0) H Arterial Blood Oxygen Saturation 95.8 % (92.0-98.0) Arterial Blood Base Excess 18.1 Ok Test Positive Current Medications Medications (Trade) Dose Ordered Sig/Lisbeth Route PRN Reason Start Time Stop Time Status Last Admin Dose Admin Acetaminophen (Tylenol) 650 mg Q4H PRN ORAL fever 12/17/16 08:00 01/16/17 07:59 12/25/16 17:41 Amlodipine Besylate (Norvasc) 5 mg DAILY ORAL 01/03/17 09:00 02/02/17 08:59 Cefazolin Sodium 2 gm/Dextrose 110 ml @ 220 mls/hr Q8HR IVPB 01/01/17 14:30 01/03/17 14:29 01/02/17 14:11 Clonidine HCl (Catapres) 0.1 mg Q4H PRN ORAL SBP >160 12/22/16 10:45 01/21/17 10:44 12/26/16 08:25 Dextrose 1,000 ml @ 50 mls/hr Q20H IV 01/01/17 17:45 01/31/17 17:44 01/02/17 13:18 Dextrose (Dextrose 50%) STAT PRN IV Hypoglycemia 12/17/16 07:30 01/16/17 07:29 Dopamine HCl/ Dextrose 250 ml @ 0 mls/hr Q24H IV 01/01/17 18:00 01/31/17 17:59 01/01/17 17:53 Furosemide/ Dextrose (Lasix/D5W) 110 ml @ 11 mls/hr Q10H IV 01/02/17 11:30 02/01/17 11:29 01/02/17 11:59 Heparin Sodium/ Dextrose 500 ml @ 29.129 mls/ hr adjust per protocol IV 01/02/17 02:41 01/31/17 18:59 01/02/17 02:52 Heparin Sodium/ Dextrose (Heparin) 500 ml @ 29.129 mls/ hr adjust per protocol IV 01/02/17 14:45 02/01/17 14:44 UNV Hydrocortisone 1 supp 1 supp BIDPRN PRN RECTAL Anal discomfort/swelling/bleed 01/01/17 17:00 01/31/17 16:59 Insulin Aspart (NovoLOG) No Dose Q6HR SUBQ 12/17/16 12:00 01/16/17 11:59 01/02/17 05:37 Lisinopril 2.5 mg 2.5 mg BID ORAL 01/03/17 09:00 02/02/17 08:59 Lorazepam (Ativan 2mg/ml 1ml) 1 mg Q4H PRN IV For Anxiety 12/30/16 14:00 01/06/17 13:59 01/01/17 20:12 Morphine Sulfate (Morphine Sulfate) 4 mg Q4H PRN IVP Severe Pain (Pain Scale 7-10) 12/27/16 12:15 01/03/17 12:14 01/01/17 12:41 Pantoprazole (Protonix) 40 mg DAILY IVP 12/20/16 09:00 01/19/17 08:59 01/02/17 09:27 Sucralfate (Carafate) 1 gm FOUR TIMES A DAY ORAL 12/17/16 09:00 01/16/17 08:59 01/01/17 21:23 OSCAR ANDERSON M.D. Jan 02, 2017 14:53
[2017-01-02] MEDS ORDERED: NS 275ml ONE (16:35)
[2017-01-02] MEDS ORDERED: Tubing Blood Filter IV ONE (16:35)
[2017-01-02] MEDS ORDERED: 1/2 NS 1000ml IV ONE (16:35)
[2017-01-02] MEDS ORDERED: Tubing IV Secondary IV ONE (16:36)
[2017-01-02] MEDS: DOPamine 400mg/250ml 250 ML IV SCH (17:18)
--- NOTE | 2017-01-02 19:34 | Cardiology Progress Note ---
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 perm afib on anticoagulation with Coumadin coagulopathy now elevated due to med interaction adn disease process leukocytosis ARF intra abd hematomas brbpr hypernatremia imporved ct performed 12/24/2016 showed multi hematomas in barber bd cavity d/w rn bp seem ok cr is elevatecd na i better is on lasix drip per dr العراقي slow wean now post trach s/p transfusion back on heparin drip ibeth need transfusion watch cr Subjective ROS Limited/Unobtainable: Yes Subjective on the vent ,s/p trach no s/p peg today Objective Last 24 Hour Vital Signs Date Time Temp Pulse Resp B/P Pulse Ox O2 Delivery O2 Flow Rate FiO2 01/02/17 19:24 101 16 80 01/02/17 19:00 106 21 129/57 95 Mechanical Ventilator 80 01/02/17 18:00 98 21 131/42 95 Mechanical Ventilator 80 01/02/17 17:18 129/47 01/02/17 17:04 87 15 80 01/02/17 17:00 86 15 129/47 100 Mechanical Ventilator 80 01/02/17 16:00 98.7 97 17 125/58 96 Mechanical Ventilator 80 01/02/17 16:00 106 01/02/17 15:02 112 18 80 01/02/17 15:00 102 22 144/62 93 Mechanical Ventilator 80 01/02/17 14:31 80 01/02/17 14:00 105 25 138/50 93 Mechanical Ventilator 60 01/02/17 13:00 84 20 119/54 93 Mechanical Ventilator 60 01/02/17 12:39 99 16 60 01/02/17 12:00 60 01/02/17 12:00 116 01/02/17 12:00 98.8 110 21 145/57 93 Mechanical Ventilator 60 01/02/17 11:21 104 18 60 01/02/17 11:00 101 20 118/53 93 Mechanical Ventilator 60 01/02/17 10:00 107 20 120/61 93 Mechanical Ventilator 60 01/02/17 09:48 87 20 93 01/02/17 09:29 84 15 60 01/02/17 09:00 103 19 131/41 93 Mechanical Ventilator 60 01/02/17 08:00 60 01/02/17 08:00 100 01/02/17 08:00 99.0 87 20 114/46 93 Mechanical Ventilator 60 01/02/17 07:01 84 15 60 01/02/17 07:00 87 20 113/36 93 Mechanical Ventilator 60 01/02/17 06:00 84 15 103/44 93 Mechanical Ventilator 60 01/02/17 05:12 77 15 80 01/02/17 05:00 80 15 103/50 95 Mechanical Ventilator 80 01/02/17 04:00 98.8 96 15 95/46 95 Mechanical Ventilator 80 01/02/17 04:00 80 01/02/17 04:00 91 01/02/17 03:17 92 15 80 01/02/17 03:00 97 15 102/43 97 Mechanical Ventilator 80 01/02/17 02:00 97 14 98/41 96 Mechanical Ventilator 80 01/02/17 01:30 88 15 80 01/02/17 01:00 82 15 95/38 96 Mechanical Ventilator 80 01/02/17 00:00 98.7 80 15 102/53 96 Mechanical Ventilator 80 01/02/17 00:00 87 01/02/17 00:00 80 01/01/17 23:13 81 15 80 01/01/17 23:00 89 15 102/38 97 Mechanical Ventilator 80 01/01/17 22:00 84 15 98/32 96 Mechanical Ventilator 80 01/01/17 21:20 83 15 80 01/01/17 21:00 95 94/43 01/01/17 21:00 88 15 94/43 96 Mechanical Ventilator 80 01/01/17 20:00 92 01/01/17 20:00 98.8 91 15 119/45 93 Mechanical Ventilator 40 01/01/17 20:00 40 General Appearance: on vent Neck: supple Cardiovascular: irregularly irregular, other - mechanical; Respiratory/Chest: lungs clear - ant Abdomen: normal bowel sounds, non tender, soft Extremities: moderate edema Intake and Output 01/01/17 01/02/17 19:00 07:00 Intake Total 684.965 ml 1030.836 ml Output Total 320 ml 213 ml Balance 364.965 ml 817.836 ml Free Water 120 ml IV Total 564.965 ml 1030.836 ml Output Urine Total 320 ml 213 ml # Bowel Movements 3 Laboratory Tests Test 01/02/17 02:00 01/02/17 02:05 01/02/17 05:30 01/02/17 08:10 Prothrombin Time 10.9 SEC (9.30-11.50) Prothromb Time International Ratio 1.1 (0.9-1.1) Activated Partial Thromboplast Time 47 SEC (23-33) H White Blood Count 13.7 K/UL (4.8-10.8) H Red Blood Count 2.48 M/UL (4.20-5.40) L Hemoglobin 7.6 G/DL (12.0-16.0) L Hematocrit 24.6 % (37.0-47.0) L Mean Corpuscular Volume 99 FL (80-99) Mean Corpuscular Hemoglobin 30.8 PG (27.0-31.0) Mean Corpuscular Hemoglobin Concent 31.0 G/DL (32.0-36.0) L Red Cell Distribution Width 18.4 % (11.6-14.8) H Platelet Count 209 K/UL (150-450) Mean Platelet Volume 9.7 FL (6.5-10.1) Neutrophils (%) (Auto) % (45.0-75.0) Lymphocytes (%) (Auto) % (20.0-45.0) Monocytes (%) (Auto) % (1.0-10.0) Eosinophils (%) (Auto) % (0.0-3.0) Basophils (%) (Auto) % (0.0-2.0) Differential Total Cells Counted 100 Neutrophils % (Manual) 77 % (45-75) H Lymphocytes % (Manual) 6 % (20-45) L Monocytes % (Manual) 14 % (1-10) H Eosinophils % (Manual) 3 % (0-3) Basophils % (Manual) 0 % (0-2) Band Neutrophils 0 % (0-8) Platelet Estimate Adequate Platelet Morphology Normal Hypochromasia 3+ Anisocytosis 2+ Sodium Level 147 mEQ/L (135-145) H Potassium Level 3.9 mEQ/L (3.4-4.9) Chloride Level 101 mEQ/L (98-107) Carbon Dioxide Level 42 mEQ/L (20-30) *H Anion Gap 4 (5-15) L Blood Urea Nitrogen 44 mg/dL (7-23) H Creatinine 1.3 mg/dL (0.5-0.9) #H Estimat Glomerular Filtration Rate 40.5 mL/min (>60) Glucose Level 143 mg/dL (74-106) H Calcium Level 8.0 mg/dL (8.6-10.2) L Phosphorus Level 4.6 mg/dL (2.5-4.8) Magnesium Level 2.1 mg/dL (1.7-2.5) Total Bilirubin 0.9 mg/dL (0.0-1.2) Aspartate Amino Transf (AST/SGOT) 23 U/L (5-40) Alanine Aminotransferase (ALT/SGPT) 9 U/L (3-33) Alkaline Phosphatase 123 U/L (35-104) H Total Protein 6.0 g/dL (6.6-8.7) L Albumin 2.1 g/dL (3.5-5.2) L Globulin 3.9 g/dL Albumin/Globulin Ratio 0.5 (1.0-2.7) L Arterial Blood pH 7.479 (7.350-7.450) Arterial Blood Partial Pressure CO2 60.4 mmHg (35.0-45.0) *H Arterial Blood Partial Pressure O2 79.4 mmHg (75.0-100.0) Arterial Blood HCO3 43.9 mmol/L (22.0-26.0) H Arterial Blood Oxygen Saturation 95.8 % (92.0-98.0) Arterial Blood Base Excess 18.1 Ok Test Positive Test 01/02/17 17:55 Activated Partial Thromboplast Time 31 SEC (23-33) ANNE RAM Jan 02, 2017 19:34
[2017-01-02] MEDS: Morphine Sulfate 4mg/ml Inj IVP PRN (20:02)
--- NOTE | 2017-01-02 22:28 | Procedure Note ---
DATE OF PROCEDURE: 01/02/2017 SURGEON: Ortega Gipson M.D. PROCEDURE: Upper endoscopy with percutaneous endoscopic gastrostomy placement. ANESTHESIOLOGIST: Addie Rivera M.D. INSTRUMENT: Olympus upper endoscope. INDICATION: Dysphagia. REASON FOR PROCEDURE: The procedure, risks, benefits, and possible consequences, including hemorrhage, aspiration, perforation and infection, and alternative treatments, were explained to the patient/legal guardian by Dr. Ortega Gipson and the patient/legal guardian understood and accepted these risks. DESCRIPTION OF PROCEDURE: After informed consent was obtained and the patient was adequately sedated, Olympus upper endoscope was advanced from the mouth and second portion of the duodenum, and retroflexion was performed in the stomach. Then under endoscopic guidance and under sterile condition, a 20-Pashto pull type of G-tube was successfully placed in the epigastric area. The distance from the tip of the tube to skin was about 2 cm in size. The patient tolerated the procedure very well without complication. SUMMARY OF FINDINGS: Status post successful PEG placement. RECOMMENDATIONS: 1. Abdominal binder. 2. Elevate the head of the bed at all times. 3. G-tube flush. 4. G-tube care. The patient received a dose of antibiotics prior to this procedure. I want to thank, Dr. Mishra for this kind referral. Ortega Gipson M.D. DR: CHAPO JOB#: [id number] CC: Dennis Mishra M.D.; Fax#: [phone]
[2017-01-03] VITALS (24 sets, daily range): BP systolic 11–133; BP diastolic 32–91
[2017-01-03] MEDS ORDERED: Heparin 5000 units/ml inj IV ONE (02:15)
[2017-01-03] MEDS: Heparin 25,000u/D5W 500ml 500 ML IV SCH ×2 (02:15→10:35)
[2017-01-03 05:45] LABS: MEAN CORPUSCULAR HEMOGLOBIN 31.2 PG (27.0-31.0); MEAN CORPUSCULAR HGB CONC 31.2 G/DL (32.0-36.0); MEAN CORPUSCULAR VOLUME 100 FL (80-99); MEAN PLATELET VOLUME 9.2 FL (6.5-10.1); PLATELET COUNT 201 K/UL (150-450); RED BLOOD COUNT 2.97 M/UL (4.20-5.40); RED CELL DISTRIBUTION WIDTH 17.9 % (11.6-14.8)
[2017-01-03] MEDS: ceFAZolin sod 2 GM in D5W 110 ML IVPB SCH (05:57)
[2017-01-03 05:58] LABS: ALBUMIN/GLOBULIN RATIO 0.5 (1.0-2.7); CALCIUM 7.9 mg/dL (8.6-10.2); CREATININE 1.5 mg/dL (0.5-0.9); GLOMERULAR FILTRATION RATE 34.4 mL/min (>60); POTASSIUM 3.4 mEQ/L (3.4-4.9); TOTAL PROTEIN 6.3 g/dL (6.6-8.7)
[2017-01-03] MEDS: NovoLOG Insulin Flexpen SUBQ SCH ×4 (06:00→23:39)
[2017-01-03 06:03] LABS: WHITE BLOOD COUNT 27.9 K/UL (4.8-10.8)
[2017-01-03 06:50] LABS: BILIRUBIN,DIRECT 0.5 mg/dL (0.1-0.3)
[2017-01-03] MEDS: Sucralfate 1gm tab ORAL SCH (08:43)
[2017-01-03] MEDS: Pantoprazole Inj IVP SCH ×2 (08:44→17:25)
[2017-01-03] MEDS ORDERED: Lisinopril 2.5mg tab ORAL SCH (09:00)
[2017-01-03 09:15] LABS: CRP QUANT 28.9 mg/dL (< 0.5); MAGNESIUM 2.1 mg/dL (1.7-2.5); PHOSPHORUS 5.7 mg/dL (2.5-4.8)
[2017-01-03 09:24] LABS: ANISOCYTOSIS 1+; BAND NEUTROPHILS % (MANUAL) 14 % (0-8); BASOPHILS % (MANUAL) 0 % (0-2); EOSINOPHILS % (MANUAL) 0 % (0-3); HYPOCHROMASIA 1+; LYMPHOCYTES % (MANUAL) 6 % (20-45); MACROCYTES 1+; NEUTROPHILS % (MANUAL) 72 % (45-75); PLATELET ESTIMATE ADEQUATE; PLATELET MORPHOLOGY NORMAL; TOTAL CELLS COUNTED 100
--- NOTE | 2017-01-03 09:45 | Pulmonolgy Critical Care Note ---
Critical Care - Asmt/Plan Problems: (1) Respiratory failure requiring intubation (2) Sepsis (3) Pancreatitis (4) ATN (acute tubular necrosis) (5) Atrial fibrillation Respiratory: monitor respiratory rate, adjust FIO2 - increase peep to 7, CXR, ABG, other Cardiac: continue to monitor HR/BP, other - continue dopamin renal dose Renal: F/U I&O, keep IV fluid, check electrolytes - dc all nephrotoxic, other Infectious Disease: check cultures Gastrointestinal: continue feedings/current rate Endocrine: monitor blood sugar, continue sliding scale insulin, other - start steroids Hematologic: monitor H/H, transfuse if hgb<8.5 Neurologic: PRN Ativan, keep patient comfortable Affect: PRN ativan Prophylaxis: Protonix Disposition: keep in ICU Time Spent (Minutes): 40 Notes Reviewed: cardio, 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 with: nurses, consultants, dependency case manager, family member Critical Care - Objective Last 24 Hour Vital Signs Date Time Temp Pulse Resp B/P Pulse Ox O2 Delivery O2 Flow Rate FiO2 01/03/17 09:20 92 16 80 01/03/17 09:00 90 17 95/39 98 Mechanical Ventilator 80 01/03/17 08:00 98.9 86 18 102/38 98 Mechanical Ventilator 80 01/03/17 08:00 80 01/03/17 08:00 84 01/03/17 07:21 99 20 80 01/03/17 07:00 96 17 113/91 98 Mechanical Ventilator 60 01/03/17 06:00 80 15 100/33 96 Mechanical Ventilator 60 01/03/17 05:15 77 15 80 01/03/17 05:00 85 15 92/32 96 Mechanical Ventilator 60 01/03/17 04:00 80 01/03/17 04:00 99.6 78 16 108/38 95 Mechanical Ventilator 60 01/03/17 04:00 96 01/03/17 03:21 80 15 80 01/03/17 03:00 78 16 97/43 95 Mechanical Ventilator 60 01/03/17 02:00 76 15 100/36 95 Mechanical Ventilator 60 01/03/17 01:25 79 15 80 01/03/17 01:00 77 24 103/35 95 Mechanical Ventilator 60 01/03/17 00:00 99.9 82 22 115/47 96 Mechanical Ventilator 60 01/03/17 00:00 72 01/02/17 23:24 69 15 80 4/26/17 23:00 77 15 94/32 96 Mechanical Ventilator 60 01/02/17 22:00 84 14 102/38 99 Mechanical Ventilator 60 01/02/17 21:15 81 15 60 01/02/17 21:15 60 01/02/17 21:01 100.6 01/02/17 21:00 84 15 101/35 98 Mechanical Ventilator 60 01/02/17 20:00 88 01/02/17 20:00 101.9 86 15 101/35 100 Mechanical Ventilator 80 01/02/17 20:00 80 01/02/17 19:24 101 16 80 01/02/17 19:00 106 21 129/57 95 Mechanical Ventilator 80 01/02/17 18:00 98 21 131/42 95 Mechanical Ventilator 80 01/02/17 17:18 129/47 01/02/17 17:04 87 15 80 01/02/17 17:00 86 15 129/47 100 Mechanical Ventilator 80 01/02/17 16:00 98.7 97 17 125/58 96 Mechanical Ventilator 80 01/02/17 16:00 106 01/02/17 15:02 112 18 80 01/02/17 15:00 102 22 144/62 93 Mechanical Ventilator 80 01/02/17 14:31 80 01/02/17 14:00 105 25 138/50 93 Mechanical Ventilator 60 01/02/17 13:00 84 20 119/54 93 Mechanical Ventilator 60 01/02/17 12:39 99 16 60 01/02/17 12:00 60 01/02/17 12:00 116 01/02/17 12:00 98.8 110 21 145/57 93 Mechanical Ventilator 60 01/02/17 11:21 104 18 60 01/02/17 11:00 101 20 118/53 93 Mechanical Ventilator 60 01/02/17 10:00 107 20 120/61 93 Mechanical Ventilator 60 01/02/17 09:48 87 20 93 Status: awake, sedated Condition: grave Neck: full ROM Lungs: clear, rales, rhonchi Heart: HR/BP unstable Abdomen: soft, active bowel sounds, feeding tube Accucheck: 147 Critical Care - Subjective ROS Limited/Unobtainable: Yes ICU Day: 15 FI02: 80 Vent Support Breath Rate: 15 Vent Support Mode: AC Vent Tidal Volume: 500 Sputum Amount: Moderate PEEP: 5.0 PIP: 40 Secretions: small Drips: dopamin, heparin Tube Feeding Amount: 30 I&O: Intake and Output 01/02/17 01/03/17 19:00 07:00 Intake Total 816.580 ml 1489.385 ml Output Total 1250 ml 450 ml Balance -433.420 ml 1039.385 ml IV Total 806.580 ml 1259.385 ml Tube Feeding 10 ml 170 ml Other 60 ml Output Urine Total 1250 ml 450 ml # Bowel Movements 2 1 CXR: bilateral interstitial infiltrate ET-Tube: 7.5 ET Position: 22 TONY BRIDGES Jan 03, 2017 09:45
--- NOTE | 2017-01-03 10:26 | General Progress Note ---
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 Mirtral Vavle prosthesis on anticoagulation Pulmonary HTN HypoAlbuminemia ARDS Plan: Hydrocortisone IV Fluid challenge Keep bp above 100 syst by adjusting BP meds Optimize cardiac status K supplement as needed Adjust pulmonary status- Per GI / Surgery Avoid nephrotoxics monitor renal parameters Subjective ROS Limited/Unobtainable: Yes Allergies: Coded Allergies: No Known Allergies (Unverified , 09/28/14) Objective Last 24 Hour Vital Signs Date Time Temp Pulse Resp B/P Pulse Ox O2 Delivery O2 Flow Rate FiO2 01/03/17 10:00 90 15 98/37 98 Mechanical Ventilator 80 01/03/17 09:20 92 16 80 01/03/17 09:00 90 17 95/39 98 Mechanical Ventilator 80 01/03/17 08:00 98.9 86 18 102/38 98 Mechanical Ventilator 80 01/03/17 08:00 80 01/03/17 08:00 84 01/03/17 07:21 99 20 80 01/03/17 07:00 96 17 113/91 98 Mechanical Ventilator 60 01/03/17 06:00 80 15 100/33 96 Mechanical Ventilator 60 01/03/17 05:15 77 15 80 01/03/17 05:00 85 15 92/32 96 Mechanical Ventilator 60 01/03/17 04:00 80 01/03/17 04:00 99.6 78 16 108/38 95 Mechanical Ventilator 60 01/03/17 04:00 96 01/03/17 03:21 80 15 80 01/03/17 03:00 78 16 97/43 95 Mechanical Ventilator 60 01/03/17 02:00 76 15 100/36 95 Mechanical Ventilator 60 01/03/17 01:25 79 15 80 01/03/17 01:00 77 24 103/35 95 Mechanical Ventilator 60 01/03/17 00:00 99.9 82 22 115/47 96 Mechanical Ventilator 60 01/03/17 00:00 72 01/02/17 23:24 69 15 80 01/02/17 23:00 77 15 94/32 96 Mechanical Ventilator 60 01/02/17 22:00 84 14 102/38 99 Mechanical Ventilator 60 01/02/17 21:15 81 15 60 01/02/17 21:15 60 01/02/17 21:01 100.6 01/02/17 21:00 84 15 101/35 98 Mechanical Ventilator 60 01/02/17 20:00 88 01/02/17 20:00 101.9 86 15 101/35 100 Mechanical Ventilator 80 01/02/17 20:00 80 01/02/17 19:24 101 16 80 01/02/17 19:00 106 21 129/57 95 Mechanical Ventilator 80 01/02/17 18:00 98 21 131/42 95 Mechanical Ventilator 80 01/02/17 17:18 129/47 01/02/17 17:04 87 15 80 01/02/17 17:00 86 15 129/47 100 Mechanical Ventilator 80 01/02/17 16:00 98.7 97 17 125/58 96 Mechanical Ventilator 80 01/02/17 16:00 106 01/02/17 15:02 112 18 80 01/02/17 15:00 102 22 144/62 93 Mechanical Ventilator 80 01/02/17 14:31 80 01/02/17 14:00 105 25 138/50 93 Mechanical Ventilator 60 01/02/17 13:00 84 20 119/54 93 Mechanical Ventilator 60 01/02/17 12:39 99 16 60 01/02/17 12:00 60 01/02/17 12:00 116 01/02/17 12:00 98.8 110 21 145/57 93 Mechanical Ventilator 60 01/02/17 11:21 104 18 60 01/02/17 11:00 101 20 118/53 93 Mechanical Ventilator 60 Intake and Output 01/02/17 01/03/17 19:00 07:00 Intake Total 816.580 ml 1489.385 ml Output Total 1250 ml 450 ml Balance -433.420 ml 1039.385 ml IV Total 806.580 ml 1259.385 ml Tube Feeding 10 ml 170 ml Other 60 ml Output Urine Total 1250 ml 450 ml # Bowel Movements 2 1 Laboratory Tests 01/02/17 17:55: Activated Partial Thromboplast Time 31 01/03/17 01:15: Activated Partial Thromboplast Time 57H 01/03/17 04:00: White Blood Count 27.9#*H, Red Blood Count 2.97L, Hemoglobin 9.3L, Hematocrit 29.7L, Mean Corpuscular Volume 100H, Mean Corpuscular Hemoglobin 31.2H, Mean Corpuscular Hemoglobin Concent 31.2L, Red Cell Distribution Width 17.9H, Platelet Count 201, Mean Platelet Volume 9.2, Neutrophils (%) (Auto) , Lymphocytes (%) (Auto) , Monocytes (%) (Auto) , Eosinophils (%) (Auto) , Basophils (%) (Auto) , Differential Total Cells Counted 100, Neutrophils % ( Manual) 72, Lymphocytes % (Manual) 6L, Monocytes % (Manual) 8, Eosinophils % ( Manual) 0, Basophils % (Manual) 0, Band Neutrophils 14H, Platelet Estimate Adequate, Platelet Morphology Normal, Hypochromasia 1+, Anisocytosis 1+, Macrocytosis 1+, Sodium Level 144, Potassium Level 3.4, Chloride Level 97L, Carbon Dioxide Level 40H, Anion Gap 7, Blood Urea Nitrogen 50H, Creatinine 1.5H , Estimat Glomerular Filtration Rate 34.4, Glucose Level 141H, Calcium Level 7.9L, Total Bilirubin 1.1, Direct Bilirubin 0.5H, Aspartate Amino Transf (AST/ SGOT) 28, Alanine Aminotransferase (ALT/SGPT) 5, Alkaline Phosphatase 127H, Pro- B-Type Natriuretic Peptide 2823H, Total Protein 6.3L, Albumin 2.2L, Globulin 4.1 , Albumin/Globulin Ratio 0.5L 01/03/17 08:30: Activated Partial Thromboplast Time 81H, Uric Acid 10.0H, Phosphorus Level 5.7H , Magnesium Level 2.1, Gamma Glutamyl Transpeptidase 224H, C-Reactive Protein, Quantitative 28.9H Height (Feet): 5 Height (Inches): 1.00 Weight (Pounds): 145 General Appearance: no apparent distress Neck: tenderness Cardiovascular: tachycardia Respiratory/Chest: rhonchi - bilaterally Abdomen: soft, distended Objective other PE not changed KAMINI SNOW Jan 03, 2017 10:26
[2017-01-03] MEDS: Hydrocortisone 100mg Inj IV SCH ×2 (10:31→21:22)
--- NOTE | 2017-01-03 12:17 | Diagnostic Imaging Report ---
Indication: DYSPNEA Technique: One view of the chest Comparison: 01/02/2017 Findings: Tracheostomy remains. Left arm PICC remains in good position. Bilateral diffuse interstitial and alveolar parenchymal opacities persists, unchanged. The heart remains enlarged. Postsurgical changes of the chest are noted. There is been interim nasogastric tube removal. Impression: Interim nasogastric tube removal. Otherwise essentially unchanged over one day, findings as described
--- NOTE | 2017-01-03 12:23 | Infectious Diseases Prog Note ---
Assessment/Plan Assessment/Plan ASSESSMENT: Fever leukocytosis Pancreatitis CT: Findings compatible with marked worsening of acute pancreatitis MRCP : Cholelithiasis. There is also a calculus within the duct adjacent to the gallbladder Pancreatic Enzymes improving CT of Abd : reviewed cholelithiasis : US of liver : Incidental finding of cholelithiasis and mild gallbladder wall thickening positive sonographic Diaz's sign LFT : Nl UTI : Mandy SCx : Mandy ( colonizer ) SP PEG 01/02 VDRF: SP trach 01/01 Cxray : Increase in bilateral congestive changes with persistent small right , probable new left pleural effusions ARF SP aortic stenosis mitral stenosis status post mitral valve replacement AFib Pulmonary hypertension PLAN: - start pt on IV Merrem and Zyvox d#! ( 12/28 SP Diflucan d# 10 ) ( 12/24 SP Merrem d# 14 / ) - monitor CBC, temperatures, - monitor LFT - GI f/u - Sx is following for possible Cholecystectomy later - VDRF - Dopamine ( renal dose ) - Rojo Cx ( Bl, Ur , Sp ) Subjective Constitutional: Reports: fever Allergies: Coded Allergies: No Known Allergies (Unverified , 09/28/14) Subjective on Vent Objective Vital Signs Last 24 Hour Vital Signs Date Time Temp Pulse Resp B/P Pulse Ox O2 Delivery O2 Flow Rate FiO2 01/03/17 12:00 99.2 84 16 101/42 95 Mechanical Ventilator 80 01/03/17 12:00 81 01/03/17 11:00 84 15 109/45 96 Mechanical Ventilator 80 01/03/17 10:50 80 01/03/17 10:43 90 17 80 01/03/17 10:00 90 15 98/37 98 Mechanical Ventilator 80 01/03/17 09:20 92 16 80 01/03/17 09:00 90 17 95/39 98 Mechanical Ventilator 80 01/03/17 08:00 98.9 86 18 102/38 98 Mechanical Ventilator 80 01/03/17 08:00 80 01/03/17 08:00 84 01/03/17 07:21 99 20 80 01/03/17 07:00 96 17 113/91 98 Mechanical Ventilator 60 01/03/17 06:00 80 15 100/33 96 Mechanical Ventilator 60 01/03/17 05:15 77 15 80 01/03/17 05:00 85 15 92/32 96 Mechanical Ventilator 60 01/03/17 04:00 80 01/03/17 04:00 99.6 78 16 108/38 95 Mechanical Ventilator 60 01/03/17 04:00 96 01/03/17 03:21 80 15 80 01/03/17 03:00 78 16 97/43 95 Mechanical Ventilator 60 01/03/17 02:00 76 15 100/36 95 Mechanical Ventilator 60 01/03/17 01:25 79 15 80 01/03/17 01:00 77 24 103/35 95 Mechanical Ventilator 60 01/03/17 00:00 99.9 82 22 115/47 96 Mechanical Ventilator 60 01/03/17 00:00 72 01/02/17 23:24 69 15 80 01/02/17 23:00 77 15 94/32 96 Mechanical Ventilator 60 01/02/17 22:00 84 14 102/38 99 Mechanical Ventilator 60 01/02/17 21:15 81 15 60 01/02/17 21:15 60 01/02/17 21:01 100.6 01/02/17 21:00 84 15 101/35 98 Mechanical Ventilator 60 01/02/17 20:00 88 01/02/17 20:00 101.9 86 15 101/35 100 Mechanical Ventilator 80 01/02/17 20:00 80 01/02/17 19:24 101 16 80 01/02/17 19:00 106 21 129/57 95 Mechanical Ventilator 80 01/02/17 18:00 98 21 131/42 95 Mechanical Ventilator 80 01/02/17 17:18 129/47 01/02/17 17:04 87 15 80 01/02/17 17:00 86 15 129/47 100 Mechanical Ventilator 80 01/02/17 16:00 98.7 97 17 125/58 96 Mechanical Ventilator 80 01/02/17 16:00 106 01/02/17 15:02 112 18 80 01/02/17 15:00 102 22 144/62 93 Mechanical Ventilator 80 01/02/17 14:31 80 01/02/17 14:00 105 25 138/50 93 Mechanical Ventilator 60 01/02/17 13:00 84 20 119/54 93 Mechanical Ventilator 60 01/02/17 12:39 99 16 60 Height (Feet): 5 Height (Inches): 1.00 Weight (Pounds): 145 HEENT: atraumatic Respiratory/Chest: normal breath sounds Cardiovascular: regular rhythm Abdomen: no organomegaly Laboratory Tests Test 01/02/17 17:55 01/03/17 01:15 01/03/17 04:00 01/03/17 08:30 Activated Partial Thromboplast Time 31 SEC (23-33) 57 SEC (23-33) H 81 SEC (23-33) H White Blood Count 27.9 K/UL (4.8-10.8) #*H Red Blood Count 2.97 M/UL (4.20-5.40) L Hemoglobin 9.3 G/DL (12.0-16.0) L Hematocrit 29.7 % (37.0-47.0) L Mean Corpuscular Volume 100 FL (80-99) H Mean Corpuscular Hemoglobin 31.2 PG (27.0-31.0) H Mean Corpuscular Hemoglobin Concent 31.2 G/DL (32.0-36.0) L Red Cell Distribution Width 17.9 % (11.6-14.8) H Platelet Count 201 K/UL (150-450) Mean Platelet Volume 9.2 FL (6.5-10.1) Neutrophils (%) (Auto) % (45.0-75.0) Lymphocytes (%) (Auto) % (20.0-45.0) Monocytes (%) (Auto) % (1.0-10.0) Eosinophils (%) (Auto) % (0.0-3.0) Basophils (%) (Auto) % (0.0-2.0) Differential Total Cells Counted 100 Neutrophils % (Manual) 72 % (45-75) Lymphocytes % (Manual) 6 % (20-45) L Monocytes % (Manual) 8 % (1-10) Eosinophils % (Manual) 0 % (0-3) Basophils % (Manual) 0 % (0-2) Band Neutrophils 14 % (0-8) H Platelet Estimate Adequate Platelet Morphology Normal Hypochromasia 1+ Anisocytosis 1+ Macrocytosis 1+ Sodium Level 144 mEQ/L (135-145) Potassium Level 3.4 mEQ/L (3.4-4.9) Chloride Level 97 mEQ/L (98-107) L Carbon Dioxide Level 40 mEQ/L (20-30) H Anion Gap 7 (5-15) Blood Urea Nitrogen 50 mg/dL (7-23) H Creatinine 1.5 mg/dL (0.5-0.9) H Estimat Glomerular Filtration Rate 34.4 mL/min (>60) Glucose Level 141 mg/dL (74-106) H Calcium Level 7.9 mg/dL (8.6-10.2) L Total Bilirubin 1.1 mg/dL (0.0-1.2) Direct Bilirubin 0.5 mg/dL (0.1-0.3) H Aspartate Amino Transf (AST/SGOT) 28 U/L (5-40) Alanine Aminotransferase (ALT/SGPT) 5 U/L (3-33) Alkaline Phosphatase 127 U/L (35-104) H Pro-B-Type Natriuretic Peptide 2823 pg/mL (0-125) H Total Protein 6.3 g/dL (6.6-8.7) L Albumin 2.2 g/dL (3.5-5.2) L Globulin 4.1 g/dL Albumin/Globulin Ratio 0.5 (1.0-2.7) L Uric Acid 10.0 mg/dL (3.0-7.5) H Phosphorus Level 5.7 mg/dL (2.5-4.8) H Magnesium Level 2.1 mg/dL (1.7-2.5) Gamma Glutamyl Transpeptidase 224 U/L (5-36) H C-Reactive Protein, Quantitative 28.9 mg/dL (< 0.5) H Current Medications Medications (Trade) Dose Ordered Sig/Lisbeth Route PRN Reason Start Time Stop Time Status Last Admin Dose Admin Acetaminophen (Tylenol) 650 mg Q4H PRN ORAL fever 12/17/16 08:00 01/16/17 07:59 01/02/17 20:02 Cefazolin Sodium 2 gm/Dextrose 110 ml @ 220 mls/hr Q8HR IVPB 01/01/17 14:30 01/03/17 14:29 01/03/17 05:57 Dextrose (Dextrose 50%) STAT PRN IV Hypoglycemia 12/17/16 07:30 01/16/17 07:29 Dopamine HCl/ Dextrose 250 ml @ 0 mls/hr Q24H IV 01/01/17 18:00 01/31/17 17:59 01/02/17 17:18 Heparin Sodium/ Dextrose (Heparin) 500 ml @ 31.777 mls/ hr adjust per protocol IV 01/03/17 02:07 02/01/17 18:59 01/03/17 10:35 Hydrocortisone (Solu-CORTEF) 100 mg EVERY 8 HOURS IV 01/03/17 11:00 02/02/17 10:59 01/03/17 10:31 Hydrocortisone 1 supp 1 supp BIDPRN PRN RECTAL Anal discomfort/swelling/bleed 01/01/17 17:00 01/31/17 16:59 Insulin Aspart (NovoLOG) No Dose Q6HR SUBQ 12/17/16 12:00 01/16/17 11:59 01/03/17 11:59 Lorazepam (Ativan 2mg/ml 1ml) 1 mg Q4H PRN IV For Anxiety 12/30/16 14:00 01/06/17 13:59 01/01/17 20:12 Ondansetron HCl (Zofran) 4 mg EVERY 4 HOURS PRN IVP Nausea & Vomiting 01/03/17 07:00 02/02/17 06:59 Pantoprazole (Protonix) 40 mg BID IVP 01/03/17 18:00 02/02/17 17:59 Temazepam (Restoril) 15 mg HSPRN PRN GT Insomnia 01/03/17 21:00 01/10/17 20:59 OSCAR ANDERSON M.D. Jan 03, 2017 12:23
--- NOTE | 2017-01-03 12:51 | General Progress Note ---
Progress Note Progress Note Surgery: patient seen and examined at bedside. low grade fever. significant leukocytosis. vent requirement elevated. Fi02 80% this AM Trach looks clean and functioning well Abd now has PEG which is functional. Exam otherwise unchanged CXR reviewed and as noted by radiologist -Continue current care and management -no current surgical intervention planned. will continue to follow Rodrigo Andino Jan 03, 2017 12:51
--- NOTE | 2017-01-03 12:58 | GI Progress Note ---
Assessment/Plan Problems: (1) Pancreatitis ICD Codes: K85.9 - Acute pancreatitis, unspecified SNOMED: 36085523 Qualifiers: Qualified Codes: K85.10 - Biliary acute pancreatitis without necrosis or infection (2) Abdominal pain ICD Codes: R10.9 - Unspecified abdominal pain SNOMED: 88724175, [id number] (3) Iron deficiency anemia ICD Codes: D50.9 - Iron deficiency anemia, unspecified SNOMED: 12393375 (4) Colon polyp ICD Codes: K63.5 - Polyp of colon SNOMED: 08087502 Status: unchanged Status Narrative Discussed with Dr. Gipson. Assessment/Plan Pancreatitis - resolving, but abdomen still very distended cholelithiasis, no e/o choledocholithiasis Leukocytosis improving Respiratory failure Azotemia improving Anemia colon polyp fu CT >> New finding of a 6 x 4.4 x 4.9 cm masslike lesion in the left paracolic gutter, which compresses and splays but does not appear to obstruct an adjacent small bowel loop, see full report. GB surgery on hold monitor H&H, transfuse prn ppi + cararate abx monitor amylase/lipase follow labs supportive care SUMMARY OF FINDINGS: Status post successful PEG placement. RECOMMENDATIONS: 1. Abdominal binder. 2. Elevate the head of the bed at all times. 3. G-tube flush. 4. G-tube care. The patient received a dose of antibiotics prior to this procedure. Subjective Subjective limited Objective Last 24 Hour Vital Signs Date Time Temp Pulse Resp B/P Pulse Ox O2 Delivery O2 Flow Rate FiO2 01/03/17 12:30 82 15 80 01/03/17 12:00 99.2 84 16 101/42 95 Mechanical Ventilator 80 01/03/17 12:00 81 01/03/17 11:00 84 15 109/45 96 Mechanical Ventilator 80 01/03/17 10:50 80 01/03/17 10:43 90 17 80 01/03/17 10:00 90 15 98/37 98 Mechanical Ventilator 80 01/03/17 09:20 92 16 80 01/03/17 09:00 90 17 95/39 98 Mechanical Ventilator 80 01/03/17 08:00 98.9 86 18 102/38 98 Mechanical Ventilator 80 01/03/17 08:00 80 01/03/17 08:00 84 01/03/17 07:21 99 20 80 01/03/17 07:00 96 17 113/91 98 Mechanical Ventilator 60 01/03/17 06:00 80 15 100/33 96 Mechanical Ventilator 60 01/03/17 05:15 77 15 80 01/03/17 05:00 85 15 92/32 96 Mechanical Ventilator 60 01/03/17 04:00 80 01/03/17 04:00 99.6 78 16 108/38 95 Mechanical Ventilator 60 01/03/17 04:00 96 01/03/17 03:21 80 15 80 01/03/17 03:00 78 16 97/43 95 Mechanical Ventilator 60 01/03/17 02:00 76 15 100/36 95 Mechanical Ventilator 60 01/03/17 01:25 79 15 80 01/03/17 01:00 77 24 103/35 95 Mechanical Ventilator 60 01/03/17 00:00 99.9 82 22 115/47 96 Mechanical Ventilator 60 01/03/17 00:00 72 01/02/17 23:24 69 15 80 01/02/17 23:00 77 15 94/32 96 Mechanical Ventilator 60 01/02/17 22:00 84 14 102/38 99 Mechanical Ventilator 60 01/02/17 21:15 81 15 60 01/02/17 21:15 60 01/02/17 21:01 100.6 01/02/17 21:00 84 15 101/35 98 Mechanical Ventilator 60 01/02/17 20:00 88 01/02/17 20:00 101.9 86 15 101/35 100 Mechanical Ventilator 80 01/02/17 20:00 80 01/02/17 19:24 101 16 80 01/02/17 19:00 106 21 129/57 95 Mechanical Ventilator 80 01/02/17 18:00 98 21 131/42 95 Mechanical Ventilator 80 01/02/17 17:18 129/47 01/02/17 17:04 87 15 80 01/02/17 17:00 86 15 129/47 100 Mechanical Ventilator 80 01/02/17 16:00 98.7 97 17 125/58 96 Mechanical Ventilator 80 01/02/17 16:00 106 01/02/17 15:02 112 18 80 01/02/17 15:00 102 22 144/62 93 Mechanical Ventilator 80 01/02/17 14:31 80 01/02/17 14:00 105 25 138/50 93 Mechanical Ventilator 60 01/02/17 13:00 84 20 119/54 93 Mechanical Ventilator 60 Intake and Output 01/02/17 01/03/17 19:00 07:00 Intake Total 816.580 ml 1489.385 ml Output Total 1250 ml 450 ml Balance -433.420 ml 1039.385 ml IV Total 806.580 ml 1259.385 ml Tube Feeding 10 ml 170 ml Other 60 ml Output Urine Total 1250 ml 450 ml # Bowel Movements 3 1 Laboratory Tests Test 01/02/17 17:55 01/03/17 01:15 01/03/17 04:00 01/03/17 08:30 Activated Partial Thromboplast Time 31 SEC (23-33) 57 SEC (23-33) H 81 SEC (23-33) H White Blood Count 27.9 K/UL (4.8-10.8) #*H Red Blood Count 2.97 M/UL (4.20-5.40) L Hemoglobin 9.3 G/DL (12.0-16.0) L Hematocrit 29.7 % (37.0-47.0) L Mean Corpuscular Volume 100 FL (80-99) H Mean Corpuscular Hemoglobin 31.2 PG (27.0-31.0) H Mean Corpuscular Hemoglobin Concent 31.2 G/DL (32.0-36.0) L Red Cell Distribution Width 17.9 % (11.6-14.8) H Platelet Count 201 K/UL (150-450) Mean Platelet Volume 9.2 FL (6.5-10.1) Neutrophils (%) (Auto) % (45.0-75.0) Lymphocytes (%) (Auto) % (20.0-45.0) Monocytes (%) (Auto) % (1.0-10.0) Eosinophils (%) (Auto) % (0.0-3.0) Basophils (%) (Auto) % (0.0-2.0) Differential Total Cells Counted 100 Neutrophils % (Manual) 72 % (45-75) Lymphocytes % (Manual) 6 % (20-45) L Monocytes % (Manual) 8 % (1-10) Eosinophils % (Manual) 0 % (0-3) Basophils % (Manual) 0 % (0-2) Band Neutrophils 14 % (0-8) H Platelet Estimate Adequate Platelet Morphology Normal Hypochromasia 1+ Anisocytosis 1+ Macrocytosis 1+ Sodium Level 144 mEQ/L (135-145) Potassium Level 3.4 mEQ/L (3.4-4.9) Chloride Level 97 mEQ/L (98-107) L Carbon Dioxide Level 40 mEQ/L (20-30) H Anion Gap 7 (5-15) Blood Urea Nitrogen 50 mg/dL (7-23) H Creatinine 1.5 mg/dL (0.5-0.9) H Estimat Glomerular Filtration Rate 34.4 mL/min (>60) Glucose Level 141 mg/dL (74-106) H Calcium Level 7.9 mg/dL (8.6-10.2) L Total Bilirubin 1.1 mg/dL (0.0-1.2) Direct Bilirubin 0.5 mg/dL (0.1-0.3) H Aspartate Amino Transf (AST/SGOT) 28 U/L (5-40) Alanine Aminotransferase (ALT/SGPT) 5 U/L (3-33) Alkaline Phosphatase 127 U/L (35-104) H Pro-B-Type Natriuretic Peptide 2823 pg/mL (0-125) H Total Protein 6.3 g/dL (6.6-8.7) L Albumin 2.2 g/dL (3.5-5.2) L Globulin 4.1 g/dL Albumin/Globulin Ratio 0.5 (1.0-2.7) L Uric Acid 10.0 mg/dL (3.0-7.5) H Phosphorus Level 5.7 mg/dL (2.5-4.8) H Magnesium Level 2.1 mg/dL (1.7-2.5) Gamma Glutamyl Transpeptidase 224 U/L (5-36) H C-Reactive Protein, Quantitative 28.9 mg/dL (< 0.5) H Height (Feet): 5 Height (Inches): 1.00 Weight (Pounds): 145 General Appearance: no apparent distress Cardiovascular: normal rate Respiratory/Chest: other - s/p trach Abdominal Exam: GT site - s/p PEG Objective Service Date: 12/11/16 Procedure: MRI Abdomen no Contrast Indication: Abdominal pain, possible pancreatitis Findings: Multiple calcifications are seen within the gallbladder. There is a ductal structure cephalad to the gallbladder which contains a filling defect. This is probably the cystic duct, but could be an extrahepatic bile duct, and it is uncertain which of these is. The gallbladder wall is not thickened. The extrahepatic bile ducts are ectatic, with the common bile duct measuring up to 9 mm diameter , but no downstream filling defects are demonstrated. The common bile duct terminates abruptly at the level of the ampulla. The pancreatic duct is mildly ectatic, measuring 3-4 mm in diameter. No intraluminal filling defects are demonstrated. A 7 mm fluid signal lesion is seen within the uncinate process of the pancreas. This may actually be a duodenal diverticulum which is seen on the recent CT scan. There is apparent swelling of the pancreas and considerable free intraperitoneal fluid. No free intraperitoneal fluid presumably increased from the prior CT scan. There are dilated small bowel loops, likely indicating ileus. The liver is unremarkable. The adrenals and kidneys are unremarkable. There are bilateral small pleural effusions. The spleen is unremarkable. The heart is enlarged Impression: Cholelithiasis. There is also a calculus within the duct adjacent to the gallbladder which is probably the cystic duct but could be an extrahepatic bile duct. Extrahepatic and central intrahepatic biliary ductal mild dilatation. No definite downstream calculus or pancreatic head mass to account for this, however. Prominence and edema of the pancreas, better visualized on prior CT scan, consistent with acute pancreatitis, also previously described Ascites fluid, increased from the prior CT scan, likely secondary to the acute pancreatitis Dilated small bowel loops, new since prior CT study. Suspect representing ileus related to the pancreatitis Bilateral small pleural effusions Small cystic lesion within the as a process. Suspect that this is actually the duodenal diverticulum described on recent CT scan, but could represent a tiny pseudocyst or intraductal papillary mucinous neoplasm. Cardiomegaly Lulu Dominguez N.P. Jan 03, 2017 12:58
[2017-01-03] MEDS: Meropenem 1 GM in NS 110 ML IVPB SCH (14:05)
[2017-01-03] MEDS ORDERED: NS 275ml ONE (15:21)
[2017-01-03] MEDS ORDERED: NS 550ML IV ONE (15:21)
[2017-01-03] MEDS: DOPamine 400mg/250ml 250 ML IV SCH (17:25)
--- NOTE | 2017-01-03 19:42 | Cardiology Progress Note ---
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 perm afib on anticoagulation with Coumadin coagulopathy now elevated due to med interaction adn disease process leukocytosis ARF intra abd hematomas brbpr hypernatremia imporved ct performed 12/24/2016 showed multi hematomas in barber bd cavity d/w rn bp seem ok cr is elevatecd na i better is on lasix drip per dr العراقي slow wean now post trach s/p transfusion back on heparin drip got albumin is now on steroid wbc elevated due to steorid watch cr d/w family wean as feasible no further bloody bm Subjective Cardiovascular: Denies: chest pain Respiratory: Denies: shortness of breath Gastrointestinal/Abdominal: Denies: abdomen distended Genitourinary: Denies: burning Subjective on the vent ,s/p trach no s/p peg today Objective Last 24 Hour Vital Signs Date Time Temp Pulse Resp B/P Pulse Ox O2 Delivery O2 Flow Rate FiO2 01/03/17 19:00 85 17 106/49 98 Mechanical Ventilator 80 01/03/17 18:00 98.8 75 18 106/49 98 Mechanical Ventilator 80 01/03/17 17:35 98.2 01/03/17 17:25 133/44 01/03/17 17:16 93 17 80 01/03/17 17:00 88 17 133/44 98 Mechanical Ventilator 80 01/03/17 16:00 100.2 96 15 117/45 98 Mechanical Ventilator 80 01/03/17 16:00 89 01/03/17 16:00 80 01/03/17 15:00 77 16 116/53 98 Mechanical Ventilator 80 01/03/17 14:36 78 15 80 01/03/17 14:00 71 16 103/39 98 Mechanical Ventilator 80 01/03/17 13:00 82 15 107/46 98 Mechanical Ventilator 80 01/03/17 12:30 82 15 80 01/03/17 12:00 99.2 84 16 101/42 95 Mechanical Ventilator 80 01/03/17 12:00 81 01/03/17 11:00 84 15 109/45 96 Mechanical Ventilator 80 01/03/17 10:50 80 01/03/17 10:43 90 17 80 01/03/17 10:00 90 15 98/37 98 Mechanical Ventilator 80 01/03/17 09:20 92 16 80 01/03/17 09:00 90 17 95/39 98 Mechanical Ventilator 80 01/03/17 08:00 98.9 86 18 102/38 98 Mechanical Ventilator 80 01/03/17 08:00 80 01/03/17 08:00 84 01/03/17 07:21 99 20 80 01/03/17 07:00 96 17 113/91 98 Mechanical Ventilator 60 01/03/17 06:00 80 15 100/33 96 Mechanical Ventilator 60 01/03/17 05:15 77 15 80 01/03/17 05:00 85 15 92/32 96 Mechanical Ventilator 60 01/03/17 04:00 80 01/03/17 04:00 99.6 78 16 108/38 95 Mechanical Ventilator 60 01/03/17 04:00 96 01/03/17 03:21 80 15 80 01/03/17 03:00 78 16 97/43 95 Mechanical Ventilator 60 01/03/17 02:00 76 15 100/36 95 Mechanical Ventilator 60 01/03/17 01:25 79 15 80 01/03/17 01:00 77 24 103/35 95 Mechanical Ventilator 60 01/03/17 00:00 99.9 82 22 115/47 96 Mechanical Ventilator 60 01/03/17 00:00 72 01/02/17 23:24 69 15 80 01/02/17 23:00 77 15 94/32 96 Mechanical Ventilator 60 01/02/17 22:00 84 14 102/38 99 Mechanical Ventilator 60 01/02/17 21:15 81 15 60 01/02/17 21:15 60 01/02/17 21:00 84 15 101/35 98 Mechanical Ventilator 60 01/02/17 20:00 88 01/02/17 20:00 101.9 86 15 101/35 100 Mechanical Ventilator 80 01/02/17 20:00 80 General Appearance: no apparent distress, alert Neck: supple Cardiovascular: irregularly irregular Respiratory/Chest: rhonchi - right Abdomen: normal bowel sounds, non tender, soft Extremities: moderate edema Intake and Output 01/02/17 01/03/17 19:00 07:00 Intake Total 816.580 ml 1489.385 ml Output Total 1250 ml 450 ml Balance -433.420 ml 1039.385 ml IV Total 806.580 ml 1259.385 ml Tube Feeding 10 ml 170 ml Other 60 ml Output Urine Total 1250 ml 450 ml # Bowel Movements 3 1 Laboratory Tests Test 01/03/17 01:15 01/03/17 04:00 01/03/17 08:30 Activated Partial Thromboplast Time 57 SEC (23-33) H 81 SEC (23-33) H White Blood Count 27.9 K/UL (4.8-10.8) #*H Red Blood Count 2.97 M/UL (4.20-5.40) L Hemoglobin 9.3 G/DL (12.0-16.0) L Hematocrit 29.7 % (37.0-47.0) L Mean Corpuscular Volume 100 FL (80-99) H Mean Corpuscular Hemoglobin 31.2 PG (27.0-31.0) H Mean Corpuscular Hemoglobin Concent 31.2 G/DL (32.0-36.0) L Red Cell Distribution Width 17.9 % (11.6-14.8) H Platelet Count 201 K/UL (150-450) Mean Platelet Volume 9.2 FL (6.5-10.1) Neutrophils (%) (Auto) % (45.0-75.0) Lymphocytes (%) (Auto) % (20.0-45.0) Monocytes (%) (Auto) % (1.0-10.0) Eosinophils (%) (Auto) % (0.0-3.0) Basophils (%) (Auto) % (0.0-2.0) Differential Total Cells Counted 100 Neutrophils % (Manual) 72 % (45-75) Lymphocytes % (Manual) 6 % (20-45) L Monocytes % (Manual) 8 % (1-10) Eosinophils % (Manual) 0 % (0-3) Basophils % (Manual) 0 % (0-2) Band Neutrophils 14 % (0-8) H Platelet Estimate Adequate Platelet Morphology Normal Hypochromasia 1+ Anisocytosis 1+ Macrocytosis 1+ Sodium Level 144 mEQ/L (135-145) Potassium Level 3.4 mEQ/L (3.4-4.9) Chloride Level 97 mEQ/L (98-107) L Carbon Dioxide Level 40 mEQ/L (20-30) H Anion Gap 7 (5-15) Blood Urea Nitrogen 50 mg/dL (7-23) H Creatinine 1.5 mg/dL (0.5-0.9) H Estimat Glomerular Filtration Rate 34.4 mL/min (>60) Glucose Level 141 mg/dL (74-106) H Calcium Level 7.9 mg/dL (8.6-10.2) L Total Bilirubin 1.1 mg/dL (0.0-1.2) Direct Bilirubin 0.5 mg/dL (0.1-0.3) H Aspartate Amino Transf (AST/SGOT) 28 U/L (5-40) Alanine Aminotransferase (ALT/SGPT) 5 U/L (3-33) Alkaline Phosphatase 127 U/L (35-104) H Pro-B-Type Natriuretic Peptide 2823 pg/mL (0-125) H Total Protein 6.3 g/dL (6.6-8.7) L Albumin 2.2 g/dL (3.5-5.2) L Globulin 4.1 g/dL Albumin/Globulin Ratio 0.5 (1.0-2.7) L Uric Acid 10.0 mg/dL (3.0-7.5) H Phosphorus Level 5.7 mg/dL (2.5-4.8) H Magnesium Level 2.1 mg/dL (1.7-2.5) Gamma Glutamyl Transpeptidase 224 U/L (5-36) H C-Reactive Protein, Quantitative 28.9 mg/dL (< 0.5) H ANNE RAM Jan 03, 2017 19:42
[2017-01-04] VITALS (24 sets, daily range): BP systolic 90–135; BP diastolic 36–65
[2017-01-04] MEDS: Meropenem 1 GM in NS 110 ML IVPB SCH ×2 (02:06→13:33)
[2017-01-04] MEDS: Heparin 25,000u/D5W 500ml 500 ML IV SCH ×2 (02:14→17:40)
[2017-01-04 05:34] LABS: ALBUMIN/GLOBULIN RATIO 0.5 (1.0-2.7); CALCIUM 7.9 mg/dL (8.6-10.2); GLOMERULAR FILTRATION RATE 24.6 mL/min (>60); POTASSIUM 3.6 mEQ/L (3.4-4.9); TOTAL PROTEIN 6.5 g/dL (6.6-8.7)
[2017-01-04 05:38] LABS: MEAN CORPUSCULAR HGB CONC 31.6 G/DL (32.0-36.0); MEAN CORPUSCULAR VOLUME 98 FL (80-99); MEAN PLATELET VOLUME 10.1 FL (6.5-10.1); PLATELET COUNT 195 K/UL (150-450); RED BLOOD COUNT 2.71 M/UL (4.20-5.40); RED CELL DISTRIBUTION WIDTH 16.6 % (11.6-14.8)
[2017-01-04] MEDS: Hydrocortisone 100mg Inj IV SCH ×3 (05:38→21:43)
[2017-01-04] MEDS: NovoLOG Insulin Flexpen SUBQ SCH ×3 (05:40→17:39)
[2017-01-04 05:43] LABS: WHITE BLOOD COUNT 28.3 K/UL (4.8-10.8)
[2017-01-04 05:55] LABS: MAGNESIUM 2.3 mg/dL (1.7-2.5); URIC ACID 10.5 mg/dL (3.0-7.5)
[2017-01-04 06:09] LABS: CRP QUANT 39.7 mg/dL (< 0.5)
[2017-01-04 08:18] LABS: ANISOCYTOSIS 1+; BAND NEUTROPHILS % (MANUAL) 3 % (0-8); BASOPHILS % (MANUAL) 0 % (0-2); EOSINOPHILS % (MANUAL) 0 % (0-3); HYPOCHROMASIA 3+; LYMPHOCYTES % (MANUAL) 3 % (20-45); NEUTROPHILS % (MANUAL) 90 % (45-75); PLATELET ESTIMATE ADEQUATE; PLATELET MORPHOLOGY NORMAL; TOTAL CELLS COUNTED 100
[2017-01-04] MEDS: Pantoprazole Inj IVP SCH (08:57)
[2017-01-04] MEDS ORDERED: Tubing IV Secondary IV ONE (09:53)
--- NOTE | 2017-01-04 10:25 | Pulmonolgy Critical Care Note ---
Critical Care - Asmt/Plan Problems: (1) Respiratory failure requiring intubation (2) Sepsis (3) Pancreatitis (4) ATN (acute tubular necrosis) (5) Atrial fibrillation Respiratory: monitor respiratory rate, adjust FIO2, CXR Cardiac: continue pressors, continue to monitor HR/BP Renal: F/U I&O, increase IV fluid Infectious Disease: check cultures, continue antibiotics Gastrointestinal: continue feedings/current rate Endocrine: monitor blood sugar, check TSH, continue sliding scale insulin Hematologic: monitor H/H, transfuse if hgb<8.5 Neurologic: PRN Ativan, keep patient comfortable Affect: PRN ativan Prophylaxis: Protonix, Heparin Disposition: keep in ICU Notes Reviewed: 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 with: nurses, consultants, caser upenvironmental health manager - Objective Last 24 Hour Vital Signs Date Time Temp Pulse Resp B/P Pulse Ox O2 Delivery O2 Flow Rate FiO2 01/04/17 09:00 78 15 80 01/04/17 09:00 79 15 107/46 98 Mechanical Ventilator 80 01/04/17 08:00 98.9 80 16 111/50 96 Mechanical Ventilator 80 01/04/17 08:00 80 01/04/17 08:00 77 01/04/17 07:00 95 20 108/42 98 Mechanical Ventilator 80 01/04/17 07:00 84 16 80 01/04/17 06:00 82 22 90/38 98 Mechanical Ventilator 80 01/04/17 05:23 89 15 80 01/04/17 05:00 90 22 93/40 98 Mechanical Ventilator 80 01/04/17 04:00 99.1 96 18 93/40 99 Mechanical Ventilator 80 01/04/17 04:00 80 01/04/17 04:00 93 01/04/17 03:24 83 16 80 01/04/17 03:00 91 16 118/53 99 Mechanical Ventilator 80 01/04/17 02:00 86 16 107/45 99 Mechanical Ventilator 80 01/04/17 01:25 78 16 80 01/04/17 01:00 82 15 111/42 99 Mechanical Ventilator 80 01/04/17 00:00 80 01/04/17 00:00 83 01/04/17 00:00 99.1 78 16 101/45 99 Mechanical Ventilator 80 01/03/17 23:18 85 16 80 01/03/17 23:00 82 16 111/42 99 Mechanical Ventilator 80 01/03/17 22:00 83 26 113/41 99 Mechanical Ventilator 80 01/03/17 21:12 73 15 80 01/03/17 21:00 82 26 116/38 98 Mechanical Ventilator 80 01/03/17 20:00 80 01/03/17 20:00 98.3 78 18 110/48 89 Mechanical Ventilator 80 01/03/17 20:00 84 01/03/17 19:25 88 17 80 01/03/17 19:00 85 17 106/49 98 Mechanical Ventilator 80 01/03/17 18:00 98.8 75 18 106/49 98 Mechanical Ventilator 80 01/03/17 17:35 98.2 01/03/17 17:25 133/44 01/03/17 17:16 93 17 80 01/03/17 17:00 88 17 133/44 98 Mechanical Ventilator 80 01/03/17 16:00 100.2 96 15 117/45 98 Mechanical Ventilator 80 01/03/17 16:00 89 01/03/17 16:00 80 01/03/17 15:00 77 16 116/53 98 Mechanical Ventilator 80 01/03/17 14:36 78 15 80 01/03/17 14:00 71 16 103/39 98 Mechanical Ventilator 80 01/03/17 13:00 82 15 107/46 98 Mechanical Ventilator 80 01/03/17 12:30 82 15 80 01/03/17 12:00 99.2 84 16 101/42 95 Mechanical Ventilator 80 01/03/17 12:00 81 01/03/17 11:00 84 15 109/45 96 Mechanical Ventilator 80 01/03/17 10:50 80 01/03/17 10:43 90 17 80 Status: awake Condition: critical Neck: full ROM Lungs: clear Heart: HR/BP unstable, regular Abdomen: active bowel sounds, feeding tube Micro: Microbiology Date/Time Source Procedure Growth Status 01/03/17 13:00 Sputum Gram Stain Pending Resulted 01/03/17 13:00 Sputum Sputum Culture - Preliminary NO GROWTH Resulted 01/03/17 13:00 Urine,Clean Catch Urine Culture - Preliminary Resulted Accucheck: 170 Critical Care - Subjective ROS Limited/Unobtainable: No ICU Day: 17 Intubation Day: trach Condition: critical EKG Rhythm: Sinus Rhythm FI02: 80 Vent Support Breath Rate: 15 Vent Support Mode: AC Vent Tidal Volume: 500 Sputum Amount: Moderate PEEP: 7.0 PIP: 39 Drips: heparin drip Tube Feeding Amount: 50 I&O: Intake and Output 01/03/17 01/04/17 19:00 07:00 Intake Total 2370.889 ml 857.363 ml Output Total 200 ml 130 ml Balance 2170.889 ml 727.363 ml IV Total 1950.889 ml 377.363 ml Tube Feeding 360 ml 450 ml Other 60 ml 30 ml Output Urine Total 200 ml 130 ml # Bowel Movements 2 1 CXR: bilateral infiltrate ET-Tube: 7.5 ET Position: 22 Labs: Laboratory Tests Test 01/04/17 03:33 White Blood Count 28.3 K/UL (4.8-10.8) *H Red Blood Count 2.71 M/UL (4.20-5.40) L Hemoglobin 8.4 G/DL (12.0-16.0) L Hematocrit 26.5 % (37.0-47.0) L Mean Corpuscular Volume 98 FL (80-99) Mean Corpuscular Hemoglobin 31.0 PG (27.0-31.0) Mean Corpuscular Hemoglobin Concent 31.6 G/DL (32.0-36.0) L Red Cell Distribution Width 16.6 % (11.6-14.8) H Platelet Count 195 K/UL (150-450) Mean Platelet Volume 10.1 FL (6.5-10.1) Neutrophils (%) (Auto) % (45.0-75.0) Lymphocytes (%) (Auto) % (20.0-45.0) Monocytes (%) (Auto) % (1.0-10.0) Eosinophils (%) (Auto) % (0.0-3.0) Basophils (%) (Auto) % (0.0-2.0) Differential Total Cells Counted 100 Neutrophils % (Manual) 90 % (45-75) H Lymphocytes % (Manual) 3 % (20-45) L Monocytes % (Manual) 4 % (1-10) Eosinophils % (Manual) 0 % (0-3) Basophils % (Manual) 0 % (0-2) Band Neutrophils 3 % (0-8) Platelet Estimate Adequate Platelet Morphology Normal Hypochromasia 3+ Anisocytosis 1+ Activated Partial Thromboplast Time 67 SEC (23-33) H Sodium Level 140 mEQ/L (135-145) Potassium Level 3.6 mEQ/L (3.4-4.9) Chloride Level 91 mEQ/L (98-107) L Carbon Dioxide Level 35 mEQ/L (20-30) H Anion Gap 14 (5-15) Blood Urea Nitrogen 62 mg/dL (7-23) H Creatinine 2.0 mg/dL (0.5-0.9) H Estimat Glomerular Filtration Rate 24.6 mL/min (>60) Glucose Level 187 mg/dL (74-106) H Uric Acid 10.5 mg/dL (3.0-7.5) H Calcium Level 7.9 mg/dL (8.6-10.2) L Phosphorus Level 7.0 mg/dL (2.5-4.8) H Magnesium Level 2.3 mg/dL (1.7-2.5) Total Bilirubin 0.7 mg/dL (0.0-1.2) Gamma Glutamyl Transpeptidase 196 U/L (5-36) H Aspartate Amino Transf (AST/SGOT) 21 U/L (5-40) Alanine Aminotransferase (ALT/SGPT) 5 U/L (3-33) Alkaline Phosphatase 123 U/L (35-104) H Total Creatine Kinase 10 U/L (26-140) L C-Reactive Protein, Quantitative 39.7 mg/dL (< 0.5) H Pro-B-Type Natriuretic Peptide 2927 pg/mL (0-125) H Total Protein 6.5 g/dL (6.6-8.7) L Albumin 2.3 g/dL (3.5-5.2) L Globulin 4.2 g/dL Albumin/Globulin Ratio 0.5 (1.0-2.7) L TONY BRIDGES Jan 04, 2017 10:25
--- NOTE | 2017-01-04 10:55 | Diagnostic Imaging Report ---
Indication: Dyspnea Comparison: 01/03/17 A single view chest radiograph was obtained. Findings: Ill-defined dominant pulmonary vessels the upper lung boucher with interstitial edema and some alveolar disease noted in the setting of cardiomegaly. Findings consistent with CHF. There maybe a small effusion on the right. Tracheostomy, sternotomy and mechanical heart 4 again noted. PICC line is stable. Impression: Pulmonary edema, moderate in degree suspected. No change
--- NOTE | 2017-01-04 11:14 | General Progress Note ---
Progress Note Progress Note Surgery: Patient seen and examined at bedside. doing okay. still with significant leukocytosis. still with high vent requirement. trach functional. peg functional. abdominal exam stable. continue with current care and management if leukocytosis persists will need to repeat CT A/P to evaluate savanah-pancreatic inflammation. Rodrigo Andino Jan 04, 2017 11:14
--- NOTE | 2017-01-04 12:57 | GI Progress Note ---
Assessment/Plan Problems: (1) Pancreatitis ICD Codes: K85.9 - Acute pancreatitis, unspecified SNOMED: 63858865 Qualifiers: Qualified Codes: K85.10 - Biliary acute pancreatitis without necrosis or infection (2) Abdominal pain ICD Codes: R10.9 - Unspecified abdominal pain SNOMED: 11657821, [id number] (3) Iron deficiency anemia ICD Codes: D50.9 - Iron deficiency anemia, unspecified SNOMED: 81754439 (4) Colon polyp ICD Codes: K63.5 - Polyp of colon SNOMED: 08026841 Status: unchanged Status Narrative Discussed with Dr. Gipson. Assessment/Plan Pancreatitis - abdomen still very distended cholelithiasis, no e/o choledocholithiasis rising WBC Respiratory failure >> s/p trach Anemia colon polyp fu CT >> New finding of a 6 x 4.4 x 4.9 cm masslike lesion in the left paracolic gutter, which compresses and splays but does not appear to obstruct an adjacent small bowel loop, see full report. GB surgery on hold monitor H&H, transfuse prn GTF's per dietary dc PPI, ordered H2 >> r/o cdiff + start flagyl abx monitor amylase/lipase follow labs supportive care SUMMARY OF FINDINGS: Status post successful PEG placement. RECOMMENDATIONS: 1. Abdominal binder. 2. Elevate the head of the bed at all times. 3. G-tube flush. 4. G-tube care. The patient received a dose of antibiotics prior to this procedure. Subjective Subjective limited Objective Last 24 Hour Vital Signs Date Time Temp Pulse Resp B/P Pulse Ox O2 Delivery O2 Flow Rate FiO2 01/04/17 12:00 98.9 72 14 105/42 96 Mechanical Ventilator 80 01/04/17 12:00 80 01/04/17 12:00 73 01/04/17 11:15 79 15 80 01/04/17 11:00 77 22 102/36 97 Mechanical Ventilator 80 01/04/17 10:00 78 16 117/50 100 Mechanical Ventilator 80 01/04/17 09:00 78 15 80 01/04/17 09:00 79 15 107/46 98 Mechanical Ventilator 80 01/04/17 08:00 98.9 80 16 111/50 96 Mechanical Ventilator 80 01/04/17 08:00 80 01/04/17 08:00 77 01/04/17 07:00 95 20 108/42 98 Mechanical Ventilator 80 01/04/17 07:00 84 16 80 01/04/17 06:00 82 22 90/38 98 Mechanical Ventilator 80 01/04/17 05:23 89 15 80 01/04/17 05:00 90 22 93/40 98 Mechanical Ventilator 80 01/04/17 04:00 99.1 96 18 93/40 99 Mechanical Ventilator 80 01/04/17 04:00 80 01/04/17 04:00 93 01/04/17 03:24 83 16 80 01/04/17 03:00 91 16 118/53 99 Mechanical Ventilator 80 01/04/17 02:00 86 16 107/45 99 Mechanical Ventilator 80 01/04/17 01:25 78 16 80 01/04/17 01:00 82 15 111/42 99 Mechanical Ventilator 80 01/04/17 00:00 80 01/04/17 00:00 83 01/04/17 00:00 99.1 78 16 101/45 99 Mechanical Ventilator 80 01/03/17 23:18 85 16 80 01/03/17 23:00 82 16 111/42 99 Mechanical Ventilator 80 01/03/17 22:00 83 26 113/41 99 Mechanical Ventilator 80 01/03/17 21:12 73 15 80 01/03/17 21:00 82 26 116/38 98 Mechanical Ventilator 80 01/03/17 20:00 80 01/03/17 20:00 98.3 78 18 110/48 89 Mechanical Ventilator 80 01/03/17 20:00 84 01/03/17 19:25 88 17 80 01/03/17 19:00 85 17 106/49 98 Mechanical Ventilator 80 01/03/17 18:00 98.8 75 18 106/49 98 Mechanical Ventilator 80 01/03/17 17:35 98.2 01/03/17 17:25 133/44 01/03/17 17:16 93 17 80 01/03/17 17:00 88 17 133/44 98 Mechanical Ventilator 80 01/03/17 16:00 100.2 96 15 117/45 98 Mechanical Ventilator 80 01/03/17 16:00 89 01/03/17 16:00 80 01/03/17 15:00 77 16 116/53 98 Mechanical Ventilator 80 01/03/17 14:36 78 15 80 01/03/17 14:00 71 16 103/39 98 Mechanical Ventilator 80 01/03/17 13:00 82 15 107/46 98 Mechanical Ventilator 80 Intake and Output 01/03/17 01/04/17 19:00 07:00 Intake Total 2370.889 ml 857.363 ml Output Total 200 ml 130 ml Balance 2170.889 ml 727.363 ml IV Total 1950.889 ml 377.363 ml Tube Feeding 360 ml 450 ml Other 60 ml 30 ml Output Urine Total 200 ml 130 ml # Bowel Movements 2 1 Laboratory Tests Test 01/04/17 03:33 White Blood Count 28.3 K/UL (4.8-10.8) *H Red Blood Count 2.71 M/UL (4.20-5.40) L Hemoglobin 8.4 G/DL (12.0-16.0) L Hematocrit 26.5 % (37.0-47.0) L Mean Corpuscular Volume 98 FL (80-99) Mean Corpuscular Hemoglobin 31.0 PG (27.0-31.0) Mean Corpuscular Hemoglobin Concent 31.6 G/DL (32.0-36.0) L Red Cell Distribution Width 16.6 % (11.6-14.8) H Platelet Count 195 K/UL (150-450) Mean Platelet Volume 10.1 FL (6.5-10.1) Neutrophils (%) (Auto) % (45.0-75.0) Lymphocytes (%) (Auto) % (20.0-45.0) Monocytes (%) (Auto) % (1.0-10.0) Eosinophils (%) (Auto) % (0.0-3.0) Basophils (%) (Auto) % (0.0-2.0) Differential Total Cells Counted 100 Neutrophils % (Manual) 90 % (45-75) H Lymphocytes % (Manual) 3 % (20-45) L Monocytes % (Manual) 4 % (1-10) Eosinophils % (Manual) 0 % (0-3) Basophils % (Manual) 0 % (0-2) Band Neutrophils 3 % (0-8) Platelet Estimate Adequate Platelet Morphology Normal Hypochromasia 3+ Anisocytosis 1+ Activated Partial Thromboplast Time 67 SEC (23-33) H Sodium Level 140 mEQ/L (135-145) Potassium Level 3.6 mEQ/L (3.4-4.9) Chloride Level 91 mEQ/L (98-107) L Carbon Dioxide Level 35 mEQ/L (20-30) H Anion Gap 14 (5-15) Blood Urea Nitrogen 62 mg/dL (7-23) H Creatinine 2.0 mg/dL (0.5-0.9) H Estimat Glomerular Filtration Rate 24.6 mL/min (>60) Glucose Level 187 mg/dL (74-106) H Uric Acid 10.5 mg/dL (3.0-7.5) H Calcium Level 7.9 mg/dL (8.6-10.2) L Phosphorus Level 7.0 mg/dL (2.5-4.8) H Magnesium Level 2.3 mg/dL (1.7-2.5) Total Bilirubin 0.7 mg/dL (0.0-1.2) Gamma Glutamyl Transpeptidase 196 U/L (5-36) H Aspartate Amino Transf (AST/SGOT) 21 U/L (5-40) Alanine Aminotransferase (ALT/SGPT) 5 U/L (3-33) Alkaline Phosphatase 123 U/L (35-104) H Total Creatine Kinase 10 U/L (26-140) L C-Reactive Protein, Quantitative 39.7 mg/dL (< 0.5) H Pro-B-Type Natriuretic Peptide 2927 pg/mL (0-125) H Total Protein 6.5 g/dL (6.6-8.7) L Albumin 2.3 g/dL (3.5-5.2) L Globulin 4.2 g/dL Albumin/Globulin Ratio 0.5 (1.0-2.7) L Microbiology Date/Time Source Procedure Growth Status 01/03/17 13:00 Sputum Gram Stain - Final Resulted 01/03/17 13:00 Sputum Sputum Culture - Preliminary NO GROWTH Resulted 01/03/17 13:00 Urine,Clean Catch Urine Culture - Preliminary Resulted Height (Feet): 5 Height (Inches): 1.00 Weight (Pounds): 145 General Appearance: no apparent distress, alert Cardiovascular: normal rate Respiratory/Chest: other - mech vent Abdominal Exam: soft, distended, GT site - c/d/i Objective Service Date: 12/11/16 Procedure: MRI Abdomen no Contrast Indication: Abdominal pain, possible pancreatitis Findings: Multiple calcifications are seen within the gallbladder. There is a ductal structure cephalad to the gallbladder which contains a filling defect. This is probably the cystic duct, but could be an extrahepatic bile duct, and it is uncertain which of these is. The gallbladder wall is not thickened. The extrahepatic bile ducts are ectatic, with the common bile duct measuring up to 9 mm diameter , but no downstream filling defects are demonstrated. The common bile duct terminates abruptly at the level of the ampulla. The pancreatic duct is mildly ectatic, measuring 3-4 mm in diameter. No intraluminal filling defects are demonstrated. A 7 mm fluid signal lesion is seen within the uncinate process of the pancreas. This may actually be a duodenal diverticulum which is seen on the recent CT scan. There is apparent swelling of the pancreas and considerable free intraperitoneal fluid. No free intraperitoneal fluid presumably increased from the prior CT scan. There are dilated small bowel loops, likely indicating ileus. The liver is unremarkable. The adrenals and kidneys are unremarkable. There are bilateral small pleural effusions. The spleen is unremarkable. The heart is enlarged Impression: Cholelithiasis. There is also a calculus within the duct adjacent to the gallbladder which is probably the cystic duct but could be an extrahepatic bile duct. Extrahepatic and central intrahepatic biliary ductal mild dilatation. No definite downstream calculus or pancreatic head mass to account for this, however. Prominence and edema of the pancreas, better visualized on prior CT scan, consistent with acute pancreatitis, also previously described Ascites fluid, increased from the prior CT scan, likely secondary to the acute pancreatitis Dilated small bowel loops, new since prior CT study. Suspect representing ileus related to the pancreatitis Bilateral small pleural effusions Small cystic lesion within the as a process. Suspect that this is actually the duodenal diverticulum described on recent CT scan, but could represent a tiny pseudocyst or intraductal papillary mucinous neoplasm. Cardiomegaly Lulu Dominguez N.P. Jan 04, 2017 12:57
[2017-01-04] MEDS: metroNIDAZOLE 500mg 100 ML IVPB SCH ×2 (14:13→21:43)
--- NOTE | 2017-01-04 15:08 | Infectious Diseases Prog Note ---
Assessment/Plan Assessment/Plan ASSESSMENT: Fever leukocytosis Pancreatitis CT: Findings compatible with marked worsening of acute pancreatitis MRCP : Cholelithiasis. There is also a calculus within the duct adjacent to the gallbladder Pancreatic Enzymes improving CT of Abd : reviewed cholelithiasis : US of liver : Incidental finding of cholelithiasis and mild gallbladder wall thickening positive sonographic Diaz's sign LFT : Nl UTI : Mandy SCx : Mandy ( colonizer ) SP PEG 01/02 VDRF: SP trach 01/01 Cxray : Increase in bilateral congestive changes with persistent small right , probable new left pleural effusions ARF SP aortic stenosis mitral stenosis status post mitral valve replacement AFib Pulmonary hypertension PLAN: - start pt on IV Merrem and Zyvox d# 2 , Flagyl d# 1 ( 12/28 SP Diflucan d# 10 ) ( 12/24 SP Merrem d# / ) - monitor CBC, temperatures, - monitor LFT - GI f/u - Sx is following for possible Cholecystectomy later - VDRF - Dopamine ( renal dose ) - Rojo Cx ( Bl, Ur , Sp ) Subjective Constitutional: Denies: anorexia, chills, drenching sweats, fatigue, fever, no symptoms, other Allergies: Coded Allergies: No Known Allergies (Unverified , 09/28/14) Subjective on Vent Objective Vital Signs Last 24 Hour Vital Signs Date Time Temp Pulse Resp B/P Pulse Ox O2 Delivery O2 Flow Rate FiO2 01/04/17 14:00 77 16 113/49 96 Mechanical Ventilator 80 01/04/17 13:15 82 16 80 01/04/17 13:00 76 15 119/56 95 Mechanical Ventilator 80 01/04/17 12:00 98.9 72 14 105/42 96 Mechanical Ventilator 80 01/04/17 12:00 80 01/04/17 12:00 73 01/04/17 11:15 79 15 80 01/04/17 11:00 77 22 102/36 97 Mechanical Ventilator 80 01/04/17 10:00 78 16 117/50 100 Mechanical Ventilator 80 01/04/17 09:00 78 15 80 01/04/17 09:00 79 15 107/46 98 Mechanical Ventilator 80 01/04/17 08:00 98.9 80 16 111/50 96 Mechanical Ventilator 80 01/04/17 08:00 80 01/04/17 08:00 77 01/04/17 07:00 95 20 108/42 98 Mechanical Ventilator 80 01/04/17 07:00 84 16 80 01/04/17 06:00 82 22 90/38 98 Mechanical Ventilator 80 01/04/17 05:23 89 15 80 01/04/17 05:00 90 22 93/40 98 Mechanical Ventilator 80 01/04/17 04:00 99.1 96 18 93/40 99 Mechanical Ventilator 80 01/04/17 04:00 80 01/04/17 04:00 93 01/04/17 03:24 83 16 80 01/04/17 03:00 91 16 118/53 99 Mechanical Ventilator 80 01/04/17 02:00 86 16 107/45 99 Mechanical Ventilator 80 01/04/17 01:25 78 16 80 01/04/17 01:00 82 15 111/42 99 Mechanical Ventilator 80 01/04/17 00:00 80 01/04/17 00:00 83 01/04/17 00:00 99.1 78 16 101/45 99 Mechanical Ventilator 80 01/03/17 23:18 85 16 80 01/03/17 23:00 82 16 111/42 99 Mechanical Ventilator 80 01/03/17 22:00 83 26 113/41 99 Mechanical Ventilator 80 01/03/17 21:12 73 15 80 01/03/17 21:00 82 26 116/38 98 Mechanical Ventilator 80 01/03/17 20:00 80 01/03/17 20:00 98.3 78 18 110/48 89 Mechanical Ventilator 80 01/03/17 20:00 84 01/03/17 19:25 88 17 80 01/03/17 19:00 85 17 106/49 98 Mechanical Ventilator 80 01/03/17 18:00 98.8 75 18 106/49 98 Mechanical Ventilator 80 01/03/17 17:35 98.2 01/03/17 17:25 133/44 01/03/17 17:16 93 17 80 01/03/17 17:00 88 17 133/44 98 Mechanical Ventilator 80 01/03/17 16:00 100.2 96 15 117/45 98 Mechanical Ventilator 80 01/03/17 16:00 89 01/03/17 16:00 80 Height (Feet): 5 Height (Inches): 1.00 Weight (Pounds): 145 HEENT: anicteric Cardiovascular: regular rhythm Abdomen: non distended Microbiology Date/Time Source Procedure Growth Status 01/03/17 13:00 Sputum Gram Stain - Final Resulted 01/03/17 13:00 Sputum Sputum Culture - Preliminary NO GROWTH Resulted 01/03/17 13:00 Urine,Clean Catch Urine Culture - Preliminary Resulted Laboratory Tests Test 01/04/17 03:33 White Blood Count 28.3 K/UL (4.8-10.8) *H Red Blood Count 2.71 M/UL (4.20-5.40) L Hemoglobin 8.4 G/DL (12.0-16.0) L Hematocrit 26.5 % (37.0-47.0) L Mean Corpuscular Volume 98 FL (80-99) Mean Corpuscular Hemoglobin 31.0 PG (27.0-31.0) Mean Corpuscular Hemoglobin Concent 31.6 G/DL (32.0-36.0) L Red Cell Distribution Width 16.6 % (11.6-14.8) H Platelet Count 195 K/UL (150-450) Mean Platelet Volume 10.1 FL (6.5-10.1) Neutrophils (%) (Auto) % (45.0-75.0) Lymphocytes (%) (Auto) % (20.0-45.0) Monocytes (%) (Auto) % (1.0-10.0) Eosinophils (%) (Auto) % (0.0-3.0) Basophils (%) (Auto) % (0.0-2.0) Differential Total Cells Counted 100 Neutrophils % (Manual) 90 % (45-75) H Lymphocytes % (Manual) 3 % (20-45) L Monocytes % (Manual) 4 % (1-10) Eosinophils % (Manual) 0 % (0-3) Basophils % (Manual) 0 % (0-2) Band Neutrophils 3 % (0-8) Platelet Estimate Adequate Platelet Morphology Normal Hypochromasia 3+ Anisocytosis 1+ Activated Partial Thromboplast Time 67 SEC (23-33) H Sodium Level 140 mEQ/L (135-145) Potassium Level 3.6 mEQ/L (3.4-4.9) Chloride Level 91 mEQ/L (98-107) L Carbon Dioxide Level 35 mEQ/L (20-30) H Anion Gap 14 (5-15) Blood Urea Nitrogen 62 mg/dL (7-23) H Creatinine 2.0 mg/dL (0.5-0.9) H Estimat Glomerular Filtration Rate 24.6 mL/min (>60) Glucose Level 187 mg/dL (74-106) H Uric Acid 10.5 mg/dL (3.0-7.5) H Calcium Level 7.9 mg/dL (8.6-10.2) L Phosphorus Level 7.0 mg/dL (2.5-4.8) H Magnesium Level 2.3 mg/dL (1.7-2.5) Total Bilirubin 0.7 mg/dL (0.0-1.2) Gamma Glutamyl Transpeptidase 196 U/L (5-36) H Aspartate Amino Transf (AST/SGOT) 21 U/L (5-40) Alanine Aminotransferase (ALT/SGPT) 5 U/L (3-33) Alkaline Phosphatase 123 U/L (35-104) H Total Creatine Kinase 10 U/L (26-140) L C-Reactive Protein, Quantitative 39.7 mg/dL (< 0.5) H Pro-B-Type Natriuretic Peptide 2927 pg/mL (0-125) H Total Protein 6.5 g/dL (6.6-8.7) L Albumin 2.3 g/dL (3.5-5.2) L Globulin 4.2 g/dL Albumin/Globulin Ratio 0.5 (1.0-2.7) L Current Medications Medications (Trade) Dose Ordered Sig/Lisbeth Route PRN Reason Start Time Stop Time Status Last Admin Dose Admin Acetaminophen (Tylenol) 650 mg Q4H PRN ORAL fever 12/17/16 08:00 01/16/17 07:59 01/04/17 02:45 Dextrose (Dextrose 50%) STAT PRN IV Hypoglycemia 12/17/16 07:30 01/16/17 07:29 Dopamine HCl/ Dextrose 250 ml @ 0 mls/hr Q24H IV 01/01/17 18:00 01/31/17 17:59 01/03/17 17:25 Famotidine (Pepcid I.v.) 20 mg Q24H IVP 01/04/17 21:00 02/03/17 20:59 Heparin Sodium/ Dextrose (Heparin) 500 ml @ 31.777 mls/ hr adjust per protocol IV 01/03/17 02:07 02/01/17 18:59 01/04/17 02:14 Hydrocortisone (Solu-CORTEF) 100 mg EVERY 8 HOURS IV 01/03/17 11:00 02/02/17 10:59 01/04/17 13:33 Hydrocortisone 1 supp 1 supp BIDPRN PRN RECTAL Anal discomfort/swelling/bleed 01/01/17 17:00 01/31/17 16:59 Insulin Aspart (NovoLOG) No Dose Q6HR SUBQ 12/17/16 12:00 01/16/17 11:59 01/04/17 11:29 Linezolid 300 ml @ 300 mls/hr Q12HR@0300,1500 IVPB 01/03/17 15:00 01/10/17 14:59 01/04/17 02:49 Lorazepam (Ativan 2mg/ml 1ml) 1 mg Q4H PRN IV For Anxiety 12/30/16 14:00 01/06/17 13:59 01/01/17 20:12 Meropenem 1 gm/ Sodium Chloride 110 ml @ 220 mls/hr Q12HR@0200,1400 IVPB 01/03/17 14:00 01/08/17 13:59 01/04/17 13:33 Metronidazole (Flagyl) 100 ml @ 100 mls/hr Q8HR IVPB 01/04/17 15:00 01/11/17 14:59 01/04/17 14:13 Ondansetron HCl (Zofran) 4 mg EVERY 4 HOURS PRN IVP Nausea & Vomiting 01/03/17 07:00 02/02/17 06:59 Sodium Chloride 1,000 ml @ 150 mls/hr Q6H40M IV 01/04/17 11:00 02/03/17 10:59 01/04/17 11:28 Temazepam 15 mg 15 mg HSPRN PRN GT Insomnia 01/03/17 21:00 01/10/17 20:59 01/03/17 22:54 OSCAR ANDERSON M.D. Jan 04, 2017 15:08
--- NOTE | 2017-01-04 15:13 | General Progress Note ---
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[employer] Mirtral Vavle prosthesis on anticoagulation Pulmonary HTN HypoAlbuminemia ARDS Plan: Hydrocortisone IV Fluid challenge Keep bp above 100 syst by adjusting BP meds Optimize cardiac status K supplement as needed Adjust pulmonary status- Per GI / Surgery Avoid nephrotoxics monitor renal parameters Subjective ROS Limited/Unobtainable: Yes Allergies: Coded Allergies: No Known Allergies (Unverified , 09/28/14) Objective Last 24 Hour Vital Signs Date Time Temp Pulse Resp B/P Pulse Ox O2 Delivery O2 Flow Rate FiO2 01/04/17 14:00 77 16 113/49 96 Mechanical Ventilator 80 01/04/17 13:15 82 16 80 01/04/17 13:00 76 15 119/56 95 Mechanical Ventilator 80 01/04/17 12:00 98.9 72 14 105/42 96 Mechanical Ventilator 80 01/04/17 12:00 80 01/04/17 12:00 73 01/04/17 11:15 79 15 80 01/04/17 11:00 77 22 102/36 97 Mechanical Ventilator 80 01/04/17 10:00 78 16 117/50 100 Mechanical Ventilator 80 01/04/17 09:00 78 15 80 01/04/17 09:00 79 15 107/46 98 Mechanical Ventilator 80 01/04/17 08:00 98.9 80 16 111/50 96 Mechanical Ventilator 80 01/04/17 08:00 80 01/04/17 08:00 77 01/04/17 07:00 95 20 108/42 98 Mechanical Ventilator 80 01/04/17 07:00 84 16 80 01/04/17 06:00 82 22 90/38 98 Mechanical Ventilator 80 01/04/17 05:23 89 15 80 01/04/17 05:00 90 22 93/40 98 Mechanical Ventilator 80 01/04/17 04:00 99.1 96 18 93/40 99 Mechanical Ventilator 80 01/04/17 04:00 80 01/04/17 04:00 93 01/04/17 03:24 83 16 80 01/04/17 03:00 91 16 118/53 99 Mechanical Ventilator 80 01/04/17 02:00 86 16 107/45 99 Mechanical Ventilator 80 01/04/17 01:25 78 16 80 01/04/17 01:00 82 15 111/42 99 Mechanical Ventilator 80 01/04/17 00:00 80 01/04/17 00:00 83 01/04/17 00:00 99.1 78 16 101/45 99 Mechanical Ventilator 80 01/03/17 23:18 85 16 80 01/03/17 23:00 82 16 111/42 99 Mechanical Ventilator 80 01/03/17 22:00 83 26 113/41 99 Mechanical Ventilator 80 01/03/17 21:12 73 15 80 01/03/17 21:00 82 26 116/38 98 Mechanical Ventilator 80 01/03/17 20:00 80 01/03/17 20:00 98.3 78 18 110/48 89 Mechanical Ventilator 80 01/03/17 20:00 84 01/03/17 19:25 88 17 80 01/03/17 19:00 85 17 106/49 98 Mechanical Ventilator 80 01/03/17 18:00 98.8 75 18 106/49 98 Mechanical Ventilator 80 01/03/17 17:35 98.2 01/03/17 17:25 133/44 01/03/17 17:16 93 17 80 01/03/17 17:00 88 17 133/44 98 Mechanical Ventilator 80 01/03/17 16:00 100.2 96 15 117/45 98 Mechanical Ventilator 80 01/03/17 16:00 89 01/03/17 16:00 80 Intake and Output 01/03/17 01/04/17 19:00 07:00 Intake Total 2370.889 ml 857.363 ml Output Total 200 ml 130 ml Balance 2170.889 ml 727.363 ml IV Total 1950.889 ml 377.363 ml Tube Feeding 360 ml 450 ml Other 60 ml 30 ml Output Urine Total 200 ml 130 ml # Bowel Movements 2 1 Laboratory Tests 01/04/17 03:33: White Blood Count 28.3*H, Red Blood Count 2.71L, Hemoglobin 8.4L, Hematocrit 26.5L, Mean Corpuscular Volume 98, Mean Corpuscular Hemoglobin 31.0, Mean Corpuscular Hemoglobin Concent 31.6L, Red Cell Distribution Width 16.6H, Platelet Count 195, Mean Platelet Volume 10.1, Neutrophils (%) (Auto) , Lymphocytes (%) (Auto) , Monocytes (%) (Auto) , Eosinophils (%) (Auto) , Basophils (%) (Auto) , Differential Total Cells Counted 100, Neutrophils % ( Manual) 90H, Lymphocytes % (Manual) 3L, Monocytes % (Manual) 4, Eosinophils % ( Manual) 0, Basophils % (Manual) 0, Band Neutrophils 3, Platelet Estimate Adequate, Platelet Morphology Normal, Hypochromasia 3+, Anisocytosis 1+, Activated Partial Thromboplast Time 67H, Sodium Level 140, Potassium Level 3.6, Chloride Level 91L, Carbon Dioxide Level 35H, Anion Gap 14, Blood Urea Nitrogen 62H, Creatinine 2.0H, Estimat Glomerular Filtration Rate 24.6, Glucose Level 187H, Uric Acid 10.5H, Calcium Level 7.9L, Phosphorus Level 7.0H, Magnesium Level 2.3, Total Bilirubin 0.7, Gamma Glutamyl Transpeptidase 196H, Aspartate Amino Transf (AST/SGOT) 21, Alanine Aminotransferase (ALT/SGPT) 5, Alkaline Phosphatase 123H, Total Creatine Kinase 10L, C-Reactive Protein, Quantitative 39.7H, Pro-B-Type Natriuretic Peptide 2927H, Total Protein 6.5L, Albumin 2.3L, Globulin 4.2, Albumin/Globulin Ratio 0.5L Height (Feet): 5 Height (Inches): 1.00 Weight (Pounds): 145 General Appearance: mild distress Cardiovascular: normal rate Respiratory/Chest: decreased breath sounds Abdomen: distended Objective other PE not changed KAMINI SNOW Jan 04, 2017 15:13
[2017-01-04] MEDS: DOPamine 400mg/250ml 250 ML IV SCH (17:39)
--- NOTE | 2017-01-04 18:23 | Cardiology Progress Note ---
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 on anticoagulation perm afib on anticoagulation with Coumadin coagulopathy now elevated due to med interaction adn disease process leukocytosis ARF intra abd hematomas brbpr hypernatremia imporved ct performed 12/24/2016 showed multi hematomas in barber bd cavity d/w rn bp seem ok cr is elevatecd further after lasix drip nwo oiff slow wean now post trach s/p transfusion 2 [place] ag[place] heparin drip for mechnicla mv got albumin is now on steroid wbc elevated due to steorid watch cr d/w family nwo on renal dopamin off all antihypertensives Subjective Cardiovascular: Denies: chest pain, lightheadedness, palpitations Respiratory: Denies: shortness of breath Gastrointestinal/Abdominal: Denies: abdominal pain Subjective on the vent ,s/p trach Objective Last 24 Hour Vital Signs Date Time Temp Pulse Resp B/P Pulse Ox O2 Delivery O2 Flow Rate FiO2 01/04/17 17:39 138/64 01/04/17 17:05 81 15 80 01/04/17 17:00 82 22 135/64 96 Mechanical Ventilator 80 01/04/17 16:00 80 01/04/17 16:00 97.5 75 16 125/50 97 Mechanical Ventilator 80 01/04/17 16:00 76 01/04/17 15:20 90 16 80 01/04/17 15:00 72 16 103/42 97 Mechanical Ventilator 80 01/04/17 14:00 77 16 113/49 96 Mechanical Ventilator 80 01/04/17 13:15 82 16 80 01/04/17 13:00 76 15 119/56 95 Mechanical Ventilator 80 01/04/17 12:00 98.9 72 14 105/42 96 Mechanical Ventilator 80 01/04/17 12:00 80 01/04/17 12:00 73 01/04/17 11:15 79 15 80 01/04/17 11:00 77 22 102/36 97 Mechanical Ventilator 80 01/04/17 10:00 78 16 117/50 100 Mechanical Ventilator 80 01/04/17 09:00 78 15 80 01/04/17 09:00 79 15 107/46 98 Mechanical Ventilator 80 01/04/17 08:00 98.9 80 16 111/50 96 Mechanical Ventilator 80 01/04/17 08:00 80 01/04/17 08:00 77 01/04/17 07:00 95 20 108/42 98 Mechanical Ventilator 80 01/04/17 07:00 84 16 80 01/04/17 06:00 82 22 90/38 98 Mechanical Ventilator 80 01/04/17 05:23 89 15 80 01/04/17 05:00 90 22 93/40 98 Mechanical Ventilator 80 01/04/17 04:00 99.1 96 18 93/40 99 Mechanical Ventilator 80 01/04/17 04:00 80 01/04/17 04:00 93 01/04/17 03:24 83 16 80 01/04/17 03:00 91 16 118/53 99 Mechanical Ventilator 80 01/04/17 02:00 86 16 107/45 99 Mechanical Ventilator 80 01/04/17 01:25 78 16 80 01/04/17 01:00 82 15 111/42 99 Mechanical Ventilator 80 01/04/17 00:00 80 01/04/17 00:00 83 01/04/17 00:00 99.1 78 16 101/45 99 Mechanical Ventilator 80 01/03/17 23:18 85 16 80 01/03/17 23:00 82 16 111/42 99 Mechanical Ventilator 80 01/03/17 22:00 83 26 113/41 99 Mechanical Ventilator 80 01/03/17 21:12 73 15 80 01/03/17 21:00 82 26 116/38 98 Mechanical Ventilator 80 01/03/17 20:00 80 01/03/17 20:00 98.3 78 18 110/48 89 Mechanical Ventilator 80 01/03/17 20:00 84 01/03/17 19:25 88 17 80 01/03/17 19:00 85 17 106/49 98 Mechanical Ventilator 80 General Appearance: no apparent distress, alert, on vent - lying flat look qutei somfortable Neck: supple Cardiovascular: irregularly irregular, other - mechanical heart sound Respiratory/Chest: lungs clear, normal breath sounds Abdomen: normal bowel sounds, non tender, soft Extremities: moderate edema Intake and Output 01/03/17 01/04/17 19:00 07:00 Intake Total 2370.889 ml 857.363 ml Output Total 200 ml 130 ml Balance 2170.889 ml 727.363 ml IV Total 1950.889 ml 377.363 ml Tube Feeding 360 ml 450 ml Other 60 ml 30 ml Output Urine Total 200 ml 130 ml # Bowel Movements 2 1 Laboratory Tests Test 01/04/17 03:33 White Blood Count 28.3 K/UL (4.8-10.8) *H Red Blood Count 2.71 M/UL (4.20-5.40) L Hemoglobin 8.4 G/DL (12.0-16.0) L Hematocrit 26.5 % (37.0-47.0) L Mean Corpuscular Volume 98 FL (80-99) Mean Corpuscular Hemoglobin 31.0 PG (27.0-31.0) Mean Corpuscular Hemoglobin Concent 31.6 G/DL (32.0-36.0) L Red Cell Distribution Width 16.6 % (11.6-14.8) H Platelet Count 195 K/UL (150-450) Mean Platelet Volume 10.1 FL (6.5-10.1) Neutrophils (%) (Auto) % (45.0-75.0) Lymphocytes (%) (Auto) % (20.0-45.0) Monocytes (%) (Auto) % (1.0-10.0) Eosinophils (%) (Auto) % (0.0-3.0) Basophils (%) (Auto) % (0.0-2.0) Differential Total Cells Counted 100 Neutrophils % (Manual) 90 % (45-75) H Lymphocytes % (Manual) 3 % (20-45) L Monocytes % (Manual) 4 % (1-10) Eosinophils % (Manual) 0 % (0-3) Basophils % (Manual) 0 % (0-2) Band Neutrophils 3 % (0-8) Platelet Estimate Adequate Platelet Morphology Normal Hypochromasia 3+ Anisocytosis 1+ Activated Partial Thromboplast Time 67 SEC (23-33) H Sodium Level 140 mEQ/L (135-145) Potassium Level 3.6 mEQ/L (3.4-4.9) Chloride Level 91 mEQ/L (98-107) L Carbon Dioxide Level 35 mEQ/L (20-30) H Anion Gap 14 (5-15) Blood Urea Nitrogen 62 mg/dL (7-23) H Creatinine 2.0 mg/dL (0.5-0.9) H Estimat Glomerular Filtration Rate 24.6 mL/min (>60) Glucose Level 187 mg/dL (74-106) H Uric Acid 10.5 mg/dL (3.0-7.5) H Calcium Level 7.9 mg/dL (8.6-10.2) L Phosphorus Level 7.0 mg/dL (2.5-4.8) H Magnesium Level 2.3 mg/dL (1.7-2.5) Total Bilirubin 0.7 mg/dL (0.0-1.2) Gamma Glutamyl Transpeptidase 196 U/L (5-36) H Aspartate Amino Transf (AST/SGOT) 21 U/L (5-40) Alanine Aminotransferase (ALT/SGPT) 5 U/L (3-33) Alkaline Phosphatase 123 U/L (35-104) H Total Creatine Kinase 10 U/L (26-140) L C-Reactive Protein, Quantitative 39.7 mg/dL (< 0.5) H Pro-B-Type Natriuretic Peptide 2927 pg/mL (0-125) H Total Protein 6.5 g/dL (6.6-8.7) L Albumin 2.3 g/dL (3.5-5.2) L Globulin 4.2 g/dL Albumin/Globulin Ratio 0.5 (1.0-2.7) L Microbiology Date/Time Source Procedure Growth Status 01/03/17 13:00 Sputum Gram Stain - Final Resulted 01/03/17 13:00 Sputum Sputum Culture - Preliminary NO GROWTH Resulted 01/03/17 13:00 Urine,Clean Catch Urine Culture - Preliminary Resulted ANNE RAM Jan 04, 2017 18:23
[2017-01-04] MEDS: Famotidine 20 MG/ 2ML VIAL IVP SCH (21:42)
[2017-01-05] VITALS (24 sets, daily range): BP systolic 127–173; BP diastolic 6–70
[2017-01-05] MEDS: NovoLOG Insulin Flexpen SUBQ SCH ×4 (00:36→18:00)
[2017-01-05] MEDS: Meropenem 1 GM in NS 110 ML IVPB SCH (01:30)
[2017-01-05 05:12] LABS: MEAN CORPUSCULAR HEMOGLOBIN 30.9 PG (27.0-31.0); MEAN CORPUSCULAR HGB CONC 31.3 G/DL (32.0-36.0); MEAN CORPUSCULAR VOLUME 99 FL (80-99); MEAN PLATELET VOLUME 9.6 FL (6.5-10.1); PLATELET COUNT 236 K/UL (150-450); RED CELL DISTRIBUTION WIDTH 16.3 % (11.6-14.8)
[2017-01-05 05:24] LABS: WHITE BLOOD COUNT 26.4 K/UL (4.8-10.8)
[2017-01-05 05:29] LABS: CRP QUANT 28.6 mg/dL (< 0.5); URIC ACID 10.3 mg/dL (3.0-7.5)
[2017-01-05 05:30] LABS: ALBUMIN/GLOBULIN RATIO 0.6 (1.0-2.7); CALCIUM 7.9 mg/dL (8.6-10.2); CREATININE 2.2 mg/dL (0.5-0.9); MAGNESIUM 2.4 mg/dL (1.7-2.5); PHOSPHORUS 7.7 mg/dL (2.5-4.8); POTASSIUM 3.4 mEQ/L (3.4-4.9)
[2017-01-05] MEDS ORDERED: Heparin 5000 units/ml inj IV ONE (06:00)
[2017-01-05] MEDS: metroNIDAZOLE 500mg 100 ML IVPB SCH ×3 (06:02→21:59)
[2017-01-05] MEDS: Hydrocortisone 100mg Inj IV SCH ×3 (06:02→21:59)
[2017-01-05] MEDS: Heparin 25,000u/D5W 500ml 500 ML IV SCH ×2 (06:07→10:11)
--- NOTE | 2017-01-05 07:29 | Pulmonolgy Critical Care Note ---
Critical Care - Asmt/Plan Assessment/Plan: ASSESSMENT ARDS acute respiratory failure, requiring intubation failure to wean s/p trach s/p PEG sepsis pancreatitis cholelithiasis acute renal failure permanent A fib s/p AVR(bioprosthetic) s/p MVR ( mechanical) severe pulmonary HTN CHF coagulopathy hypoalbuminemia PLAN OF CARE ICU care vent , trach care pulmonary toilet CXR no change, persistent ARDS, unable to titrate down FiO2, CXR and ABG in am low UO renal dose Dopamine, up titarte to 3 mcg/kg/min creat rising despite fluid challenge- per nephro management on steroids ; ? dc monitor renal parameters, lytes, avoid nephrotoxic prior renal US no hydro off any anti HTN cardio follows a/coagulation with Heparin gtt , rate controlled - dosing per pharmacy stable BS management with SS of insulin, [id number] at goal ECHO with EF 6065% and RVSP of 71 c/w severe pulmonary HTN abx, ID follows sputum cx + Mandy, blood cx negative, stool C dif negative, urine + yeast, last urine cx pending strict aspiration precautions, GT feeding, high residuals , Reglan GI prophylaxis off TPN GI follows Pancreatitis recurrent CT A/P : Findings compatible with marked worsening of acute pancreatitis MRCP : Cholelithiasis. There is also a calculus within the duct adjacent to the gallbladder abdominal US of liver : Incidental finding of cholelithiasis and mild gallbladder wall thickening per GI no evidence of choledocholithiasis surgery follows, no surgery planned case discussed and evaluated by supervising physician GI prophylaxis skin care case discussed and evaluated by supervising physician Critical Care - Objective Last 24 Hour Vital Signs Date Time Temp Pulse Resp B/P Pulse Ox O2 Delivery O2 Flow Rate FiO2 01/05/17 06:00 80 18 131/51 94 Mechanical Ventilator 80 01/05/17 05:29 76 15 80 01/05/17 05:00 87 18 145/54 95 Mechanical Ventilator 80 01/05/17 04:00 80 01/05/17 04:00 98.0 89 16 146/48 95 Mechanical Ventilator 80 01/05/17 04:00 90 01/05/17 03:18 88 15 80 01/05/17 03:00 81 18 135/54 95 Mechanical Ventilator 80 01/05/17 02:00 74 16 128/51 98 Mechanical Ventilator 80 01/05/17 01:25 79 15 80 01/05/17 01:00 98.1 71 18 138/55 97 Mechanical Ventilator 80 01/05/17 00:00 80 01/05/17 00:00 86 01/05/17 00:00 87 16 142/59 97 Mechanical Ventilator 80 01/04/17 23:02 73 15 80 01/04/17 23:00 72 16 122/59 97 Mechanical Ventilator 80 01/04/17 22:00 78 18 126/65 96 Mechanical Ventilator 80 01/04/17 21:00 73 16 119/53 95 Mechanical Ventilator 80 01/04/17 20:46 68 15 80 01/04/17 20:00 80 01/04/17 20:00 72 01/04/17 20:00 97.4 78 16 121/43 94 Mechanical Ventilator 80 01/04/17 19:29 73 15 80 01/04/17 19:00 77 17 126/57 95 Mechanical Ventilator 80 01/04/17 18:00 85 19 109/40 98 Mechanical Ventilator 80 01/04/17 17:39 138/64 01/04/17 17:05 81 15 80 01/04/17 17:00 82 22 135/64 96 Mechanical Ventilator 80 01/04/17 16:00 80 01/04/17 16:00 97.5 75 16 125/50 97 Mechanical Ventilator 80 01/04/17 16:00 76 01/04/17 15:20 90 16 80 01/04/17 15:00 72 16 103/42 97 Mechanical Ventilator 80 01/04/17 14:00 77 16 113/49 96 Mechanical Ventilator 80 01/04/17 13:15 82 16 80 01/04/17 13:00 76 15 119/56 95 Mechanical Ventilator 80 01/04/17 12:00 98.9 72 14 105/42 96 Mechanical Ventilator 80 01/04/17 12:00 80 01/04/17 12:00 73 01/04/17 11:15 79 15 80 01/04/17 11:00 77 22 102/36 97 Mechanical Ventilator 80 01/04/17 10:00 78 16 117/50 100 Mechanical Ventilator 80 01/04/17 09:00 78 15 80 01/04/17 09:00 79 15 107/46 98 Mechanical Ventilator 80 01/04/17 08:00 98.9 80 16 111/50 96 Mechanical Ventilator 80 01/04/17 08:00 80 01/04/17 08:00 77 Objective: General status: awake, alert, responsive, on ventilator AC 500-15-80% Condition: critical HEENT: atraumatic, normocephalic, sclera anicteric neck: trach, Shiley #8, secretions small, white, thin Lungs: decreased BS at bases Heart: HR/BP stable; A fib on tele , LUE PICC intact Abdomen: soft with mild distention , non-tender, active bowel sounds, G tube, site clean, Mathias Extremities: other - +1 edema BLE Micro: Microbiology Date/Time Source Procedure Growth Status 01/03/17 13:00 Sputum Gram Stain - Final Resulted 01/03/17 13:00 Sputum Sputum Culture - Preliminary NO GROWTH Resulted 01/04/17 13:30 Stool Clostridium difficile Toxin Assay - Final Complete 01/03/17 13:00 Urine,Clean Catch Urine Culture - Preliminary Resulted Accucheck: 176 Critical Care - Subjective ROS Limited/Unobtainable: Yes Interval Events: significant leukocytosis worsening renal parameters, creat up to 2.2 UO low despite fluid challenge CXR no change , remains on 80% FiO2 not tolerating TF Condition: critical IV Access: PICC EKG Rhythm: Atrial Fibrillation FI02: 80 Vent Support Breath Rate: 15 Vent Support Mode: AC Vent Tidal Volume: 500 Sputum Amount: Small PEEP: 7.0 PIP: 46 Fluids: NS at 75 Drips: Dopamine drip 3mcg/kg/min, heparin drip 26 ml/hr Tube Feeding Amount: 50 I&O: Intake and Output 01/04/17 01/05/17 19:00 07:00 Intake Total 2237.456 ml 2155.63 ml Output Total 170 ml 155 ml Balance 2067.456 ml 2000.63 ml Free Water 60 ml IV Total 1577.456 ml 1595.63 ml Tube Feeding 600 ml 500 ml Other 60 ml Output Urine Total 170 ml 155 ml # Bowel Movements 7 3 CXR: 01/04 -Pulmonary edema, moderate in degree , no change from previous Nazario (SkyTonya mayorga NP Jan 05, 2017 07:29
[2017-01-05] MEDS ORDERED: DuoNeb 0.5-3(2.5)mg/3ml neb HHN PRN (07:30)
[2017-01-05 10:06] LABS: ABG ALLEN TEST POSITIVE; ABG BASE EXCESS 4.2; ABG PCO2 52.9 mmHg (35.0-45.0)
[2017-01-05] MEDS: Renvela 800mg Pkt NG SCH ×3 (10:09→18:00)
[2017-01-05 11:06] LABS: BAND NEUTROPHILS % (MANUAL) 3 % (0-8); BASOPHILS % (MANUAL) 0 % (0-2); EOSINOPHILS % (MANUAL) 0 % (0-3); LYMPHOCYTES % (MANUAL) 6 % (20-45); NEUTROPHILS % (MANUAL) 86 % (45-75); PLATELET ESTIMATE ADEQUATE; PLATELET MORPHOLOGY NORMAL; TOTAL CELLS COUNTED 100
[2017-01-05 11:07] LABS: ANISOCYTOSIS 1+; HYPOCHROMASIA 1+
--- NOTE | 2017-01-05 11:16 | General Progress Note ---
Progress Note Progress Note Afebrile. Pt is awake, remains on ventilator support. No problems noted with tracheostomy or G-tube. She has marginal urine output and is azotemic, she has the problem of pulmonary edema as well. We will repeat her abdominal CT scan in 2-3 days to assess the state of her pancreatitis. Kaushal Tran MD Jan 05, 2017 11:16
[2017-01-05] MEDS: Metoclopramide 10mg/2ml Inj IVP PRN ×2 (12:16→12:20)
[2017-01-05] MEDS: Metoclopramide 10mg/10ml Liq NG SCH ×2 (12:20→18:00)
--- NOTE | 2017-01-05 13:13 | General Progress Note ---
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 on anticoagulation Pulmonary HTN HypoAlbuminemia ARDS Plan: Hydrocortisone IV Fluid challenge Keep bp above 100 syst by adjusting BP meds Optimize cardiac status K supplement as needed Adjust pulmonary status- Per GI / Surgery Avoid nephrotoxics monitor renal parameters Subjective ROS Limited/Unobtainable: Yes Allergies: Coded Allergies: No Known Allergies (Unverified , 09/28/14) Objective Last 24 Hour Vital Signs Date Time Temp Pulse Resp B/P Pulse Ox O2 Delivery O2 Flow Rate FiO2 01/05/17 11:00 78 15 70 01/05/17 09:00 80 15 80 01/05/17 08:35 99.0 01/05/17 07:00 79 15 80 01/05/17 06:00 80 18 131/51 94 Mechanical Ventilator 80 01/05/17 05:29 76 15 80 01/05/17 05:00 87 18 145/54 95 Mechanical Ventilator 80 01/05/17 04:00 80 01/05/17 04:00 98.0 89 16 146/48 95 Mechanical Ventilator 80 01/05/17 04:00 90 01/05/17 03:18 88 15 80 01/05/17 03:00 81 18 135/54 95 Mechanical Ventilator 80 01/05/17 02:00 74 16 128/51 98 Mechanical Ventilator 80 01/05/17 01:25 79 15 80 01/05/17 01:00 98.1 71 18 138/55 97 Mechanical Ventilator 80 01/05/17 00:00 80 01/05/17 00:00 86 01/05/17 00:00 87 16 142/59 97 Mechanical Ventilator 80 01/04/17 23:02 73 15 80 01/04/17 23:00 72 16 122/59 97 Mechanical Ventilator 80 01/04/17 22:00 78 18 126/65 96 Mechanical Ventilator 80 01/04/17 21:00 73 16 119/53 95 Mechanical Ventilator 80 01/04/17 20:46 68 15 80 01/04/17 20:00 80 01/04/17 20:00 72 01/04/17 20:00 97.4 78 16 121/43 94 Mechanical Ventilator 80 01/04/17 19:29 73 15 80 01/04/17 19:00 77 17 126/57 95 Mechanical Ventilator 80 01/04/17 18:00 85 19 109/40 98 Mechanical Ventilator 80 01/04/17 17:39 138/64 01/04/17 17:05 81 15 80 01/04/17 17:00 82 22 135/64 96 Mechanical Ventilator 80 01/04/17 16:00 80 01/04/17 16:00 97.5 75 16 125/50 97 Mechanical Ventilator 80 01/04/17 16:00 76 01/04/17 15:20 90 16 80 01/04/17 15:00 72 16 103/42 97 Mechanical Ventilator 80 01/04/17 14:00 77 16 113/49 96 Mechanical Ventilator 80 01/04/17 13:15 82 16 80 01/04/17 13:00 76 15 119/56 95 Mechanical Ventilator 80 Intake and Output 01/04/17 01/05/17 19:00 07:00 Intake Total 2237.456 ml 2270.026 ml Output Total 170 ml 155 ml Balance 2067.456 ml 2115.026 ml Free Water 60 ml IV Total 1577.456 ml 1710.026 ml Tube Feeding 600 ml 500 ml Other 60 ml Output Urine Total 170 ml 155 ml # Bowel Movements 7 3 Laboratory Tests 01/04/17 13:30: Urine Random Sodium < 10 01/05/17 04:00: White Blood Count 26.4*H, Red Blood Count 2.70L, Hemoglobin 8.3L, Hematocrit 26.6L, Mean Corpuscular Volume 99, Mean Corpuscular Hemoglobin 30.9, Mean Corpuscular Hemoglobin Concent 31.3L, Red Cell Distribution Width 16.3H, Platelet Count 236, Mean Platelet Volume 9.6, Neutrophils (%) (Auto) , Lymphocytes (%) (Auto) , Monocytes (%) (Auto) , Eosinophils (%) (Auto) , Basophils (%) (Auto) , Differential Total Cells Counted 100, Neutrophils % ( Manual) 86H, Lymphocytes % (Manual) 6L, Monocytes % (Manual) 5, Eosinophils % ( Manual) 0, Basophils % (Manual) 0, Band Neutrophils 3, Platelet Estimate Adequate, Platelet Morphology Normal, Hypochromasia 1+, Anisocytosis 1+, Activated Partial Thromboplast Time 57H, Sodium Level 138, Potassium Level 3.4, Chloride Level 89L, Carbon Dioxide Level 32H, Anion Gap 17H, Blood Urea Nitrogen 74H, Creatinine 2.2H, Estimat Glomerular Filtration Rate 22.0, Glucose Level 181H, Uric Acid 10.3H, Calcium Level 7.9L, Phosphorus Level 7.7H, Magnesium Level 2.4, Total Bilirubin 0.7, Aspartate Amino Transf (AST/SGOT) 30, Alanine Aminotransferase (ALT/SGPT) 5, Alkaline Phosphatase 148H, C-Reactive Protein, Quantitative 28.6H, Pro-B-Type Natriuretic Peptide 2663H, Total Protein 7.0, Albumin 2.7L, Globulin 4.3, Albumin/Globulin Ratio 0.6L 01/05/17 09:59: Arterial Blood pH 7.373, Arterial Blood Partial Pressure CO2 52.9H, Arterial Blood Partial Pressure O2 128.6H, Arterial Blood HCO3 30.1H, Arterial Blood Oxygen Saturation 99.5H, Arterial Blood Base Excess 4.2, Ok Test Positive Height (Feet): 5 Height (Inches): 1.00 Weight (Pounds): 145 General Appearance: no apparent distress Cardiovascular: tachycardia Respiratory/Chest: decreased breath sounds Abdomen: distended Objective other PE not changed KAMINI SNOW Jan 05, 2017 13:13
[2017-01-05] MEDS ORDERED: Tubing IV Secondary IV ONE (14:42)
[2017-01-05] MEDS ORDERED: 1/2 NS 1000ml IV ONE (14:42)
[2017-01-05] MEDS: Meropenem 500mg/NS 55ml IVPB SCH ×2 (15:11)
--- NOTE | 2017-01-05 15:35 | Cardiology Progress Note ---
Assessment/Plan Assessment/Plan evidence of fluid overload, decreased UO suggest to diurese the patient antiocagulation with Iv Heparin, therapeutic Subjective Subjective the patient underwent trach and PEG she is not verbal daughter at the bedside, but patient is not communicating Objective Last 24 Hour Vital Signs Date Time Temp Pulse Resp B/P Pulse Ox O2 Delivery O2 Flow Rate FiO2 01/05/17 15:00 81 16 127/66 97 Mechanical Ventilator 70 01/05/17 14:00 78 15 136/59 97 Mechanical Ventilator 70 01/05/17 13:00 70 17 141/66 98 Mechanical Ventilator 70 01/05/17 13:00 71 15 70 01/05/17 12:00 75 01/05/17 12:00 98.5 76 15 141/54 96 Mechanical Ventilator 70 01/05/17 12:00 85 01/05/17 11:00 78 15 70 01/05/17 11:00 77 15 143/62 97 Mechanical Ventilator 70 01/05/17 10:00 78 12 131/65 95 Mechanical Ventilator 80 01/05/17 09:00 80 15 80 01/05/17 09:00 79 11 137/61 93 Mechanical Ventilator 80 01/05/17 08:35 99.0 01/05/17 08:00 82 01/05/17 08:00 98.5 76 15 138/58 91 Mechanical Ventilator 80 01/05/17 08:00 80 01/05/17 07:00 79 15 80 01/05/17 07:00 83 16 130/53 92 Mechanical Ventilator 80 01/05/17 06:00 80 18 131/51 94 Mechanical Ventilator 80 01/05/17 05:29 76 15 80 01/05/17 05:00 87 18 145/54 95 Mechanical Ventilator 80 01/05/17 04:00 80 01/05/17 04:00 98.0 89 16 146/48 95 Mechanical Ventilator 80 01/05/17 04:00 90 01/05/17 03:18 88 15 80 01/05/17 03:00 81 18 135/54 95 Mechanical Ventilator 80 01/05/17 02:00 74 16 128/51 98 Mechanical Ventilator 80 01/05/17 01:25 79 15 80 01/05/17 01:00 98.1 71 18 138/55 97 Mechanical Ventilator 80 01/05/17 00:00 80 01/05/17 00:00 86 01/05/17 00:00 87 16 142/59 97 Mechanical Ventilator 80 01/04/17 23:02 73 15 80 01/04/17 23:00 72 16 122/59 97 Mechanical Ventilator 80 01/04/17 22:00 78 18 126/65 96 Mechanical Ventilator 80 01/04/17 21:00 73 16 119/53 95 Mechanical Ventilator 80 01/04/17 20:46 68 15 80 01/04/17 20:00 80 01/04/17 20:00 72 01/04/17 20:00 97.4 78 16 121/43 94 Mechanical Ventilator 80 01/04/17 19:29 73 15 80 01/04/17 19:00 77 17 126/57 95 Mechanical Ventilator 80 01/04/17 18:00 85 19 109/40 98 Mechanical Ventilator 80 01/04/17 17:39 138/64 01/04/17 17:05 81 15 80 01/04/17 17:00 82 22 135/64 96 Mechanical Ventilator 80 01/04/17 16:00 80 01/04/17 16:00 97.5 75 16 125/50 97 Mechanical Ventilator 80 01/04/17 16:00 76 General Appearance: on vent, other - trach EENT: PERRL/EOMI Neck: other - cannot assess JVD, laying flat Rhythm: Afib Cardiovascular: normal rate Respiratory/Chest: crackles/rales Abdomen: distended Extremities: severe edema Intake and Output 01/04/17 01/05/17 19:00 07:00 Intake Total 2237.456 ml 2270.026 ml Output Total 170 ml 175 ml Balance 2067.456 ml 2095.026 ml Free Water 60 ml IV Total 1577.456 ml 1710.026 ml Tube Feeding 600 ml 500 ml Other 60 ml Output Urine Total 170 ml 175 ml # Bowel Movements 7 3 Laboratory Tests Test 01/05/17 04:00 01/05/17 09:59 01/05/17 12:15 White Blood Count 26.4 K/UL (4.8-10.8) *H Red Blood Count 2.70 M/UL (4.20-5.40) L Hemoglobin 8.3 G/DL (12.0-16.0) L Hematocrit 26.6 % (37.0-47.0) L Mean Corpuscular Volume 99 FL (80-99) Mean Corpuscular Hemoglobin 30.9 PG (27.0-31.0) Mean Corpuscular Hemoglobin Concent 31.3 G/DL (32.0-36.0) L Red Cell Distribution Width 16.3 % (11.6-14.8) H Platelet Count 236 K/UL (150-450) Mean Platelet Volume 9.6 FL (6.5-10.1) Neutrophils (%) (Auto) % (45.0-75.0) Lymphocytes (%) (Auto) % (20.0-45.0) Monocytes (%) (Auto) % (1.0-10.0) Eosinophils (%) (Auto) % (0.0-3.0) Basophils (%) (Auto) % (0.0-2.0) Differential Total Cells Counted 100 Neutrophils % (Manual) 86 % (45-75) H Lymphocytes % (Manual) 6 % (20-45) L Monocytes % (Manual) 5 % (1-10) Eosinophils % (Manual) 0 % (0-3) Basophils % (Manual) 0 % (0-2) Band Neutrophils 3 % (0-8) Platelet Estimate Adequate Platelet Morphology Normal Hypochromasia 1+ Anisocytosis 1+ Activated Partial Thromboplast Time 57 SEC (23-33) H 85 SEC (23-33) H Sodium Level 138 mEQ/L (135-145) Potassium Level 3.4 mEQ/L (3.4-4.9) Chloride Level 89 mEQ/L (98-107) L Carbon Dioxide Level 32 mEQ/L (20-30) H Anion Gap 17 (5-15) H Blood Urea Nitrogen 74 mg/dL (7-23) H Creatinine 2.2 mg/dL (0.5-0.9) H Estimat Glomerular Filtration Rate 22.0 mL/min (>60) Glucose Level 181 mg/dL (74-106) H Uric Acid 10.3 mg/dL (3.0-7.5) H Calcium Level 7.9 mg/dL (8.6-10.2) L Phosphorus Level 7.7 mg/dL (2.5-4.8) H Magnesium Level 2.4 mg/dL (1.7-2.5) Total Bilirubin 0.7 mg/dL (0.0-1.2) Aspartate Amino Transf (AST/SGOT) 30 U/L (5-40) Alanine Aminotransferase (ALT/SGPT) 5 U/L (3-33) Alkaline Phosphatase 148 U/L (35-104) H C-Reactive Protein, Quantitative 28.6 mg/dL (< 0.5) H Pro-B-Type Natriuretic Peptide 2663 pg/mL (0-125) H Total Protein 7.0 g/dL (6.6-8.7) Albumin 2.7 g/dL (3.5-5.2) L Globulin 4.3 g/dL Albumin/Globulin Ratio 0.6 (1.0-2.7) L Arterial Blood pH 7.373 (7.350-7.450) Arterial Blood Partial Pressure CO2 52.9 mmHg (35.0-45.0) H Arterial Blood Partial Pressure O2 128.6 mmHg (75.0-100.0) H Arterial Blood HCO3 30.1 mmol/L (22.0-26.0) H Arterial Blood Oxygen Saturation 99.5 % (92.0-98.0) H Arterial Blood Base Excess 4.2 Ok Test Positive Microbiology Date/Time Source Procedure Growth Status 01/03/17 13:00 Blood Blood Culture - Preliminary NO GROWTH AFTER 24 HOURS Resulted 01/03/17 13:00 Blood Blood Culture - Preliminary NO GROWTH AFTER 24 HOURS Resulted 01/03/17 13:00 Sputum Gram Stain - Final Complete 01/03/17 13:00 Sputum Culture - Final Mandy Albicans Complete 01/04/17 13:30 Stool Clostridium difficile Toxin Assay - Final Complete 01/03/17 13:00 Urine,Clean Catch Urine Culture - Preliminary Strep Species, Gamma-Hemolytic Resulted DAVIAN SIM Jan 05, 2017 15:35
[2017-01-05] MEDS: DOPamine 400mg/250ml 250 ML IV SCH (18:00)
[2017-01-05] MEDS: Famotidine 20 MG/ 2ML VIAL IVP SCH (20:30)
[2017-01-06] VITALS (24 sets, daily range): BP systolic 132–168; BP diastolic 49–80
[2017-01-06] MEDS: NovoLOG Insulin Flexpen SUBQ SCH ×5 (00:16→23:33)
[2017-01-06] MEDS: Metoclopramide 10mg/10ml Liq NG SCH ×3 (00:23→12:30)
[2017-01-06] MEDS: Meropenem 500mg/NS 55ml IVPB SCH ×4 (02:43→15:11)
[2017-01-06 05:31] LABS: MEAN CORPUSCULAR HEMOGLOBIN 31.6 PG (27.0-31.0); MEAN CORPUSCULAR HGB CONC 32.4 G/DL (32.0-36.0); MEAN CORPUSCULAR VOLUME 97 FL (80-99); MEAN PLATELET VOLUME 9.8 FL (6.5-10.1); PLATELET COUNT 253 K/UL (150-450); RED BLOOD COUNT 2.72 M/UL (4.20-5.40); RED CELL DISTRIBUTION WIDTH 16.2 % (11.6-14.8); WHITE BLOOD COUNT 20.1 K/UL (4.8-10.8)
[2017-01-06] MEDS: Hydrocortisone 100mg Inj IV SCH ×3 (05:54→20:42)
[2017-01-06] MEDS: metroNIDAZOLE 500mg 100 ML IVPB SCH ×3 (05:55→21:45)
[2017-01-06 06:01] LABS: CALCIUM 7.8 mg/dL (8.6-10.2); CREATININE 1.8 mg/dL (0.5-0.9); GLOMERULAR FILTRATION RATE 27.8 mL/min (>60); POTASSIUM 3.4 mEQ/L (3.4-4.9)
[2017-01-06 06:04] LABS: BILIRUBIN,DIRECT 0.2 mg/dL (0.1-0.3); MAGNESIUM 2.4 mg/dL (1.7-2.5); TOTAL PROTEIN 6.8 g/dL (6.6-8.7)
[2017-01-06 07:56] LABS: ABG BASE EXCESS 10
[2017-01-06] MEDS ORDERED: Heparin 5000 units/ml inj IV ONE ×2 (08:00→23:45)
[2017-01-06] MEDS: Renvela 800mg Pkt NG SCH ×3 (08:03→17:53)
[2017-01-06] MEDS: Heparin 25,000u/D5W 500ml 500 ML IV SCH (08:07)
[2017-01-06 09:05] LABS: ANISOCYTOSIS 1+; BAND NEUTROPHILS % (MANUAL) 0 % (0-8); BASOPHILS % (MANUAL) 0 % (0-2); EOSINOPHILS % (MANUAL) 0 % (0-3); HYPOCHROMASIA 2+; LYMPHOCYTES % (MANUAL) 4 % (20-45); NEUTROPHILS % (MANUAL) 92 % (45-75); PLATELET ESTIMATE ADEQUATE; PLATELET MORPHOLOGY NORMAL; TOTAL CELLS COUNTED 100
[2017-01-06] MEDS: LORazepam Inj 2mg/ml 1ml IV PRN (09:51)
--- NOTE | 2017-01-06 10:34 | Infectious Diseases Prog Note ---
Assessment/Plan Assessment/Plan A: Pancreatitis Cholelithiasis, Cholecystitis Mechanical mitral valve Atrial fibrillation Leukocytosis Respiratory failure P; Continue Meropenem, Linezolid & Flagyl Subjective ROS Limited/Unobtainable: Yes Allergies: Coded Allergies: No Known Allergies (Unverified , 09/28/14) Objective Vital Signs Last 24 Hour Vital Signs Date Time Temp Pulse Resp B/P Pulse Ox O2 Delivery O2 Flow Rate FiO2 01/06/17 08:46 84 16 60 01/06/17 08:00 80 01/06/17 08:00 60 01/06/17 07:21 77 15 60 01/06/17 06:00 77 16 159/65 98 Mechanical Ventilator 60 01/06/17 05:00 81 16 155/70 99 Mechanical Ventilator 60 01/06/17 04:57 76 15 60 01/06/17 04:00 79 01/06/17 04:00 60 01/06/17 04:00 98.6 79 16 167/63 100 Mechanical Ventilator 60 01/06/17 03:00 74 16 132/65 100 Mechanical Ventilator 60 01/06/17 02:50 75 15 60 01/06/17 02:00 77 20 157/63 99 Mechanical Ventilator 60 01/06/17 01:27 61 15 65 01/06/17 01:00 72 16 162/58 100 Mechanical Ventilator 60 01/06/17 00:00 73 01/06/17 00:00 98.5 73 16 162/59 100 Mechanical Ventilator 70 01/06/17 00:00 60 01/05/17 23:09 75 15 65 01/05/17 23:00 74 16 142/70 100 Mechanical Ventilator 70 01/05/17 22:00 77 16 164/62 100 Mechanical Ventilator 70 01/05/17 21:10 80 15 70 01/05/17 21:00 76 16 164/62 97 Mechanical Ventilator 70 01/05/17 20:00 76 01/05/17 20:00 98.7 76 16 156/64 97 Mechanical Ventilator 70 01/05/17 20:00 70 01/05/17 19:00 82 16 152/68 97 Mechanical Ventilator 70 01/05/17 18:47 98 16 65 01/05/17 18:00 89 16 173/66 97 Mechanical Ventilator 70 01/05/17 18:00 173/66 01/05/17 17:10 79 15 70 01/05/17 17:00 84 16 150/66 97 Mechanical Ventilator 70 01/05/17 16:01 70 01/05/17 16:00 72 01/05/17 16:00 98.5 77 16 146/60 97 Mechanical Ventilator 70 01/05/17 15:00 87 15 70 01/05/17 15:00 81 16 127/66 97 Mechanical Ventilator 70 01/05/17 14:00 78 15 136/59 97 Mechanical Ventilator 70 01/05/17 13:00 70 17 141/66 98 Mechanical Ventilator 70 01/05/17 13:00 71 15 70 01/05/17 12:00 70 01/05/17 12:00 98.5 76 15 141/54 96 Mechanical Ventilator 70 01/05/17 12:00 85 01/05/17 11:00 78 15 70 01/05/17 11:00 77 15 143/62 97 Mechanical Ventilator 70 Height (Feet): 5 Height (Inches): 1.00 Weight (Pounds): 145 General Appearance: no acute distress HEENT: status post trach Respiratory/Chest: lungs clear, other - on ventilator Cardiovascular: normal rate Abdomen: soft, non tender, other - Gt feeding Extremities: other - generalized edema, left arm PICC line Microbiology Date/Time Source Procedure Growth Status 01/03/17 13:00 Blood Blood Culture - Preliminary NO GROWTH AFTER 24 HOURS Resulted 01/03/17 13:00 Blood Blood Culture - Preliminary NO GROWTH AFTER 24 HOURS Resulted 01/03/17 13:00 Sputum Gram Stain - Final Complete 01/03/17 13:00 Sputum Culture - Final Mandy Albicans Complete 01/04/17 13:30 Stool Clostridium difficile Toxin Assay - Final Complete 01/03/17 13:00 Urine,Clean Catch Urine Culture - Final Enterococcus Faecalis Complete Laboratory Tests Test 01/05/17 12:15 01/06/17 04:00 01/06/17 04:05 01/06/17 07:43 Activated Partial Thromboplast Time 85 SEC (23-33) H 55 SEC (23-33) H White Blood Count 20.1 K/UL (4.8-10.8) H Red Blood Count 2.72 M/UL (4.20-5.40) L Hemoglobin 8.6 G/DL (12.0-16.0) L Hematocrit 26.5 % (37.0-47.0) L Mean Corpuscular Volume 97 FL (80-99) Mean Corpuscular Hemoglobin 31.6 PG (27.0-31.0) H Mean Corpuscular Hemoglobin Concent 32.4 G/DL (32.0-36.0) Red Cell Distribution Width 16.2 % (11.6-14.8) H Platelet Count 253 K/UL (150-450) Mean Platelet Volume 9.8 FL (6.5-10.1) Neutrophils (%) (Auto) % (45.0-75.0) Lymphocytes (%) (Auto) % (20.0-45.0) Monocytes (%) (Auto) % (1.0-10.0) Eosinophils (%) (Auto) % (0.0-3.0) Basophils (%) (Auto) % (0.0-2.0) Differential Total Cells Counted 100 Neutrophils % (Manual) 92 % (45-75) H Lymphocytes % (Manual) 4 % (20-45) L Monocytes % (Manual) 4 % (1-10) Eosinophils % (Manual) 0 % (0-3) Basophils % (Manual) 0 % (0-2) Band Neutrophils 0 % (0-8) Platelet Estimate Adequate Platelet Morphology Normal Hypochromasia 2+ Anisocytosis 1+ Sodium Level 139 mEQ/L (135-145) Potassium Level 3.4 mEQ/L (3.4-4.9) Chloride Level 90 mEQ/L (98-107) L Carbon Dioxide Level 33 mEQ/L (20-30) H Anion Gap 16 (5-15) H Blood Urea Nitrogen 81 mg/dL (7-23) H Creatinine 1.8 mg/dL (0.5-0.9) H Estimat Glomerular Filtration Rate 27.8 mL/min (>60) Glucose Level 140 mg/dL (74-106) H Calcium Level 7.8 mg/dL (8.6-10.2) L Phosphorus Level 7.0 mg/dL (2.5-4.8) H Magnesium Level 2.4 mg/dL (1.7-2.5) Total Bilirubin 0.6 mg/dL (0.0-1.2) Direct Bilirubin 0.2 mg/dL (0.1-0.3) Aspartate Amino Transf (AST/SGOT) 22 U/L (5-40) Alanine Aminotransferase (ALT/SGPT) 5 U/L (3-33) Alkaline Phosphatase 129 U/L (35-104) H Total Protein 6.8 g/dL (6.6-8.7) Albumin 2.6 g/dL (3.5-5.2) L Arterial Blood pH 7.410 (7.350-7.450) Arterial Blood Partial Pressure CO2 59.0 mmHg (35.0-45.0) *H Arterial Blood Partial Pressure O2 97.0 mmHg (75.0-100.0) Arterial Blood HCO3 36.0 mmol/L (22.0-26.0) H Arterial Blood Oxygen Saturation 97.0 % (92.0-98.0) Arterial Blood Base Excess 10 Ok Test Current Medications Medications (Trade) Dose Ordered Sig/Lisbeth Route PRN Reason Start Time Stop Time Status Last Admin Dose Admin Acetaminophen (Tylenol) 650 mg Q4H PRN ORAL fever 12/17/16 08:00 01/16/17 07:59 01/05/17 07:36 Albuterol/ Ipratropium (DuoNeb 0.5-3(2.5)mg/3ml) 3 ml Q4HRT PRN HHN sob 01/05/17 07:30 01/10/17 07:29 Dextrose (Dextrose 50%) STAT PRN IV Hypoglycemia 12/17/16 07:30 01/16/17 07:29 Dopamine HCl/ Dextrose (DOPamine 400mg/ 250ml) 250 ml @ 0 mls/hr Q24H IV 01/01/17 18:00 01/31/17 17:59 01/04/17 17:39 Famotidine 20 mg 20 mg Q24H IVP 01/04/17 21:00 02/03/17 20:59 01/05/17 20:30 Heparin Sodium/ Dextrose (Heparin) 500 ml @ 37.074 mls/ hr adjust per protocol IV 01/05/17 05:36 02/01/17 18:59 01/06/17 08:07 Hydrocortisone (Solu-CORTEF) 100 mg EVERY 8 HOURS IV 01/03/17 11:00 02/02/17 10:59 01/06/17 05:54 Hydrocortisone 1 supp 1 supp BIDPRN PRN RECTAL Anal discomfort/swelling/bleed 01/01/17 17:00 01/31/17 16:59 Insulin Aspart (NovoLOG) No Dose Q6HR SUBQ 12/17/16 12:00 01/16/17 11:59 01/06/17 06:26 Linezolid 300 ml @ 300 mls/hr Q12HR@0300,1500 IVPB 01/03/17 15:00 01/10/17 14:59 01/06/17 02:44 Lorazepam (Ativan 2mg/ml 1ml) 1 mg Q4H PRN IV For Anxiety 01/05/17 10:00 01/12/17 09:59 01/06/17 09:51 Meropenem/Sodium Chloride (Merrem/Sodium Chloride) 55 ml @ 110 mls/hr Q12HR@0200,1400 IVPB 01/05/17 14:00 01/10/17 13:59 01/06/17 02:43 Metoclopramide HCl 5 mg 5 mg Q6H PRN IVP high residuals 01/05/17 10:15 02/04/17 10:14 01/05/17 12:20 Metoclopramide HCl (Reglan) 5 mg EVERY 6 HOURS NG 01/05/17 12:00 02/04/17 11:59 01/06/17 05:55 Metronidazole (Flagyl) 100 ml @ 100 mls/hr Q8HR IVPB 01/04/17 15:00 01/11/17 14:59 01/06/17 05:55 Ondansetron HCl (Zofran) 4 mg EVERY 4 HOURS PRN IVP Nausea & Vomiting 01/03/17 07:00 02/02/17 06:59 01/05/17 07:04 Sevelamer Carbonate (Renvela) 1,600 mg THREE TIMES A DAY NG 01/05/17 10:00 02/04/17 09:59 01/06/17 08:03 Sodium Chloride 1,000 ml @ 75 mls/hr [id number] IV 01/04/17 15:45 02/03/17 15:44 01/06/17 00:45 Temazepam 15 mg 15 mg HSPRN PRN GT Insomnia 01/03/17 21:00 01/10/17 20:59 01/04/17 21:43 ANA LILIA BEDOLLA Jan 06, 2017 10:34
[2017-01-06] MEDS: DOPamine 400mg/250ml 250 ML IV SCH (11:24)
[2017-01-06] MEDS: Metoclopramide 10mg/2ml Inj IVP PRN (12:38)
--- NOTE | 2017-01-06 13:45 | General Progress Note ---
Progress Note Progress Note Afebrile. Pt remains on ventilator support, is on low dose Dopamine. Urine output was 1185 ml yesterday. BUN was 81 today, creatinine 1.8. WBC improved at 20.3. She is tolerating G-tube feedings. We will continue supportive measures. We will need to consider repeat CT of abdomen to assess the status of her pancreatitis. There is no need for surgical intervention at this time. Kaushal Tran MD Jan 06, 2017 13:45
--- NOTE | 2017-01-06 14:04 | General Progress Note ---
Assessment/Plan Status: unchanged Status Narrative feeding on hold Assessment/Plan status: Acute Renal Failure- Hypotension High A1c Sepsis / Pancreatitis / Gall stones Atrial Fib High INR s/ bioprostheic Aortic Valve repalcment 2014 s/p master mechanic Mirtral Vavle prosthesis on anticoagulation Pulmonary HTN HypoAlbuminemia ARDS Plan: change reglan to IV Hydrocortisone IV Fluid challenge Keep bp above 100 syst by adjusting BP meds Optimize cardiac status K supplement as needed Adjust pulmonary status- Per GI / Surgery Avoid nephrotoxics monitor renal parameters Subjective ROS Limited/Unobtainable: Yes Allergies: Coded Allergies: No Known Allergies (Unverified , 09/28/14) Objective Last 24 Hour Vital Signs Date Time Temp Pulse Resp B/P Pulse Ox O2 Delivery O2 Flow Rate FiO2 01/06/17 13:07 73 15 55 01/06/17 13:00 16 17 161/74 99 Mechanical Ventilator 55 01/06/17 12:00 55 01/06/17 12:00 82 01/06/17 12:00 97.5 74 15 165/57 99 Mechanical Ventilator 55 01/06/17 11:24 153/59 01/06/17 11:00 77 17 153/59 99 Mechanical Ventilator 55 01/06/17 10:30 83 15 55 01/06/17 10:00 79 21 148/61 99 Mechanical Ventilator 60 01/06/17 09:00 81 20 160/68 99 Mechanical Ventilator 60 01/06/17 08:46 84 16 60 01/06/17 08:00 80 01/06/17 08:00 60 01/06/17 08:00 80 16 168/80 99 Mechanical Ventilator 60 01/06/17 07:21 77 15 60 01/06/17 07:00 97.8 80 16 162/56 99 Mechanical Ventilator 60 01/06/17 06:00 77 16 159/65 98 Mechanical Ventilator 60 01/06/17 05:00 81 16 155/70 99 Mechanical Ventilator 60 01/06/17 04:57 76 15 60 01/06/17 04:00 79 01/06/17 04:00 60 01/06/17 04:00 98.6 79 16 167/63 100 Mechanical Ventilator 60 01/06/17 03:00 74 16 132/65 100 Mechanical Ventilator 60 01/06/17 02:50 75 15 60 01/06/17 02:00 77 20 157/63 99 Mechanical Ventilator 60 01/06/17 01:27 61 15 65 01/06/17 01:00 72 16 162/58 100 Mechanical Ventilator 60 01/06/17 00:00 73 01/06/17 00:00 98.5 73 16 162/59 100 Mechanical Ventilator 70 01/06/17 00:00 60 01/05/17 23:09 75 15 65 01/05/17 23:00 74 16 142/70 100 Mechanical Ventilator 70 01/05/17 22:00 77 16 164/62 100 Mechanical Ventilator 70 01/05/17 21:10 80 15 70 01/05/17 21:00 76 16 164/62 97 Mechanical Ventilator 70 01/05/17 20:00 76 01/05/17 20:00 98.7 76 16 156/64 97 Mechanical Ventilator 70 01/05/17 20:00 70 01/05/17 19:00 82 16 152/68 97 Mechanical Ventilator 70 01/05/17 18:47 98 16 65 01/05/17 18:00 89 16 173/66 97 Mechanical Ventilator 70 01/05/17 18:00 173/66 01/05/17 17:10 79 15 70 01/05/17 17:00 84 16 150/66 97 Mechanical Ventilator 70 01/05/17 16:01 70 01/05/17 16:00 72 01/05/17 16:00 98.5 77 16 146/60 97 Mechanical Ventilator 70 01/05/17 15:00 87 15 70 01/05/17 15:00 81 16 127/66 97 Mechanical Ventilator 70 Intake and Output 01/05/17 01/06/17 19:00 07:00 Intake Total 1852.532 ml 1586.478 ml Output Total 485 ml 730 ml Balance 1367.532 ml 856.478 ml IV Total 1852.532 ml 1586.478 ml Tube Feeding 0 ml 0 ml Output Urine Total 485 ml 730 ml # Bowel Movements 1 Laboratory Tests 01/06/17 04:00: Activated Partial Thromboplast Time 55H 01/06/17 04:05: White Blood Count 20.1H, Red Blood Count 2.72L, Hemoglobin 8.6L, Hematocrit 26.5L, Mean Corpuscular Volume 97, Mean Corpuscular Hemoglobin 31.6H, Mean Corpuscular Hemoglobin Concent 32.4, Red Cell Distribution Width 16.2H, Platelet Count 253, Mean Platelet Volume 9.8, Neutrophils (%) (Auto) , Lymphocytes (%) (Auto) , Monocytes (%) (Auto) , Eosinophils (%) (Auto) , Basophils (%) (Auto) , Differential Total Cells Counted 100, Neutrophils % ( Manual) 92H, Lymphocytes % (Manual) 4L, Monocytes % (Manual) 4, Eosinophils % ( Manual) 0, Basophils % (Manual) 0, Band Neutrophils 0, Platelet Estimate Adequate, Platelet Morphology Normal, Hypochromasia 2+, Anisocytosis 1+, Sodium Level 139, Potassium Level 3.4, Chloride Level 90L, Carbon Dioxide Level 33H, Anion Gap 16H, Blood Urea Nitrogen 81H, Creatinine 1.8H, Estimat Glomerular Filtration Rate 27.8, Glucose Level 140H, Calcium Level 7.8L, Phosphorus Level 7.0H, Magnesium Level 2.4, Total Bilirubin 0.6, Direct Bilirubin 0.2, Aspartate Amino Transf (AST/SGOT) 22, Alanine Aminotransferase (ALT/SGPT) 5, Alkaline Phosphatase 129H, Total Protein 6.8, Albumin 2.6L 01/06/17 07:43: Arterial Blood pH 7.410, Arterial Blood Partial Pressure CO2 59.0*H, Arterial Blood Partial Pressure O2 97.0, Arterial Blood HCO3 36.0H, Arterial Blood Oxygen Saturation 97.0, Arterial Blood Base Excess 10, Ok Test Height (Feet): 5 Height (Inches): 1.00 Weight (Pounds): 145 General Appearance: mild distress Cardiovascular: normal rate Respiratory/Chest: decreased breath sounds Abdomen: distended Objective other PE not changed KAMINI SNOW Jan 06, 2017 14:04
--- NOTE | 2017-01-06 15:15 | Pulmonolgy Critical Care Note ---
Critical Care - Asmt/Plan Assessment/Plan: ASSESSMENT ARDS acute respiratory failure, requiring intubation failure to wean s/p trach s/p PEG sepsis pancreatitis cholelithiasis acute renal failure permanent A fib s/p AVR(bioprosthetic) s/p MVR ( mechanical) severe pulmonary HTN CHF coagulopathy hypoalbuminemia PLAN OF CARE ICU care vent , trach care pulmonary toilet CXR no change, persistent ARDS, unable to titrate down FiO2, CXR and ABG in am , this am ABG with increasing hypercapnia slightly better UO renal dose Dopamine, down to 2.5 mcg/kg/min creat down to day, to 1. 8 - per nephro management off steroids ; monitor renal parameters, lytes, avoid nephrotoxic prior renal US no hydro off any anti HTN cardio follows a/coagulation with Heparin gtt , rate controlled - dosing per pharmacy stable BS management with SS of insulin, [id number] at goal ECHO with EF 6065% and RVSP of 71 c/w severe pulmonary HTN abx, ID follows sputum cx + Mandy, blood cx negative, stool C dif negative, urine + yeast, last urine cx pending strict aspiration precautions, GT feeding, high residuals , Reglan GI prophylaxis off TPN GI follows Pancreatitis recurrent CT A/P : Findings compatible with marked worsening of acute pancreatitis MRCP : Cholelithiasis. There is also a calculus within the duct adjacent to the gallbladder abdominal US of liver : Incidental finding of cholelithiasis and mild gallbladder wall thickening per GI no evidence of choledocholithiasis GT feeding on hold, not tolerating, Reglan added, further management as per GI surgery follows, no surgery planned case discussed and evaluated by supervising physician GI prophylaxis skin care case discussed and evaluated by supervising physician Critical Care - Objective Last 24 Hour Vital Signs Date Time Temp Pulse Resp B/P Pulse Ox O2 Delivery O2 Flow Rate FiO2 01/06/17 14:00 68 17 157/67 99 Mechanical Ventilator 55 01/06/17 13:07 73 15 55 01/06/17 13:00 16 17 161/74 99 Mechanical Ventilator 55 01/06/17 12:00 55 01/06/17 12:00 82 01/06/17 12:00 97.5 74 15 165/57 99 Mechanical Ventilator 55 01/06/17 11:24 153/59 01/06/17 11:00 77 17 153/59 99 Mechanical Ventilator 55 01/06/17 10:30 83 15 55 01/06/17 10:00 79 21 148/61 99 Mechanical Ventilator 60 01/06/17 09:00 81 20 160/68 99 Mechanical Ventilator 60 01/06/17 08:46 84 16 60 01/06/17 08:00 80 01/06/17 08:00 60 01/06/17 08:00 80 16 168/80 99 Mechanical Ventilator 60 01/06/17 07:21 77 15 60 01/06/17 07:00 97.8 80 16 162/56 99 Mechanical Ventilator 60 01/06/17 06:00 77 16 159/65 98 Mechanical Ventilator 60 01/06/17 05:00 81 16 155/70 99 Mechanical Ventilator 60 01/06/17 04:57 76 15 60 01/06/17 04:00 79 01/06/17 04:00 60 01/06/17 04:00 98.6 79 16 167/63 100 Mechanical Ventilator 60 01/06/17 03:00 74 16 132/65 100 Mechanical Ventilator 60 01/06/17 02:50 75 15 60 01/06/17 02:00 77 20 157/63 99 Mechanical Ventilator 60 01/06/17 01:27 61 15 65 01/06/17 01:00 72 16 162/58 100 Mechanical Ventilator 60 01/06/17 00:00 73 01/06/17 00:00 98.5 73 16 162/59 100 Mechanical Ventilator 70 01/06/17 00:00 60 01/05/17 23:09 75 15 65 01/05/17 23:00 74 16 142/70 100 Mechanical Ventilator 70 01/05/17 22:00 77 16 164/62 100 Mechanical Ventilator 70 01/05/17 21:10 80 15 70 01/05/17 21:00 76 16 164/62 97 Mechanical Ventilator 70 01/05/17 20:00 76 01/05/17 20:00 98.7 76 16 156/64 97 Mechanical Ventilator 70 01/05/17 20:00 70 01/05/17 19:00 82 16 152/68 97 Mechanical Ventilator 70 01/05/17 18:47 98 16 65 01/05/17 18:00 89 16 173/66 97 Mechanical Ventilator 70 01/05/17 18:00 173/66 01/05/17 17:10 79 15 70 01/05/17 17:00 84 16 150/66 97 Mechanical Ventilator 70 01/05/17 16:01 70 01/05/17 16:00 72 01/05/17 16:00 98.5 77 16 146/60 97 Mechanical Ventilator 70 Objective: General status: awake, alert, responsive, on ventilator AC 500-15-80% Condition: critical HEENT: atraumatic, normocephalic, sclera anicteric neck: trach, Shiley #8, secretions small, white, thin Lungs: decreased BS at bases Heart: HR/BP stable; A fib on tele , LUE PICC intact Abdomen: soft with mild distention , non-tender, active bowel sounds, G tube, site clean, Mathias Extremities: other - +1 edema BLE Micro: Microbiology Date/Time Source Procedure Growth Status 01/04/17 13:30 Stool Clostridium difficile Toxin Assay - Final Complete Accucheck: 133 Critical Care - Subjective ROS Limited/Unobtainable: Yes Interval Events: leukocytosis trending down remains on Dopamine gtt and heparin drip slightly improved UO Condition: critical IV Access: PICC - LUE intact EKG Rhythm: Atrial Fibrillation FI02: 55 Vent Support Breath Rate: 15 Vent Support Mode: AC Vent Tidal Volume: 500 Sputum Amount: Small PEEP: 7.0 PIP: 47 Drips: Dopamin gtt 2.5 mcg/kg/min Heparin gtt 34 ml/hr Tube Feeding Amount: 0 I&O: Intake and Output 01/05/17 01/06/17 19:00 07:00 Intake Total 1852.532 ml 1586.478 ml Output Total 485 ml 730 ml Balance 1367.532 ml 856.478 ml IV Total 1852.532 ml 1586.478 ml Tube Feeding 0 ml 0 ml Output Urine Total 485 ml 730 ml # Bowel Movements 1 CXR: Pulmonary edema, moderate in degree ET Position: 22 Nazario [facility] Bhatti NP Jan 06, 2017 15:15
[2017-01-06] MEDS ORDERED: Heparin 25,000u/D5W 500ml 500 ML IV SCH ×2 (17:00→23:34)
--- NOTE | 2017-01-06 17:16 | Cardiology Progress Note ---
Assessment/Plan Assessment/Plan severe fluid overload, based on I/O, severe generalized edema, crackles, JVD and CXR, recommended to stop IVF. discussed with nursing, Dr Ortiz and left a message for admitting physician Subjective Subjective the patient is on vent, tracheostomy, non verbal, but alert, following voice commands approrpiately family at the bedside Objective Last 24 Hour Vital Signs Date Time Temp Pulse Resp B/P Pulse Ox O2 Delivery O2 Flow Rate FiO2 01/06/17 16:57 78 16 55 01/06/17 16:00 55 01/06/17 16:00 97.7 75 20 153/69 100 Mechanical Ventilator 55 01/06/17 16:00 69 01/06/17 15:19 75 15 55 01/06/17 15:00 69 20 163/56 98 Mechanical Ventilator 55 01/06/17 14:00 68 17 157/67 99 Mechanical Ventilator 55 01/06/17 13:07 73 15 55 01/06/17 13:00 16 17 161/74 99 Mechanical Ventilator 55 01/06/17 12:00 55 01/06/17 12:00 82 01/06/17 12:00 97.5 74 15 165/57 99 Mechanical Ventilator 55 01/06/17 11:24 153/59 01/06/17 11:00 77 17 153/59 99 Mechanical Ventilator 55 01/06/17 10:30 83 15 55 01/06/17 10:00 79 21 148/61 99 Mechanical Ventilator 60 01/06/17 09:00 81 20 160/68 99 Mechanical Ventilator 60 01/06/17 08:46 84 16 60 01/06/17 08:00 80 01/06/17 08:00 60 01/06/17 08:00 80 16 168/80 99 Mechanical Ventilator 60 01/06/17 07:21 77 15 60 01/06/17 07:00 97.8 80 16 162/56 99 Mechanical Ventilator 60 01/06/17 06:00 77 16 159/65 98 Mechanical Ventilator 60 01/06/17 05:00 81 16 155/70 99 Mechanical Ventilator 60 01/06/17 04:57 76 15 60 01/06/17 04:00 79 01/06/17 04:00 60 01/06/17 04:00 98.6 79 16 167/63 100 Mechanical Ventilator 60 01/06/17 03:00 74 16 132/65 100 Mechanical Ventilator 60 01/06/17 02:50 75 15 60 01/06/17 02:00 77 20 157/63 99 Mechanical Ventilator 60 01/06/17 01:27 61 15 65 01/06/17 01:00 72 16 162/58 100 Mechanical Ventilator 60 01/06/17 00:00 73 01/06/17 00:00 98.5 73 16 162/59 100 Mechanical Ventilator 70 01/06/17 00:00 60 01/05/17 23:09 75 15 65 01/05/17 23:00 74 16 142/70 100 Mechanical Ventilator 70 01/05/17 22:00 77 16 164/62 100 Mechanical Ventilator 70 01/05/17 21:10 80 15 70 01/05/17 21:00 76 16 164/62 97 Mechanical Ventilator 70 01/05/17 20:00 76 01/05/17 20:00 98.7 76 16 156/64 97 Mechanical Ventilator 70 01/05/17 20:00 70 01/05/17 19:00 82 16 152/68 97 Mechanical Ventilator 70 01/05/17 18:47 98 16 65 01/05/17 18:00 89 16 173/66 97 Mechanical Ventilator 70 01/05/17 18:00 173/66 General Appearance: on vent, other - tracheostomy EENT: PERRL/EOMI Neck: JVD - severe Rhythm: Afib Cardiovascular: irregularly irregular Respiratory/Chest: crackles/rales, inspiratory wheezing Abdomen: distended Extremities: severe edema - all body is edematous Neurologic: alert Intake and Output 01/05/17 01/06/17 19:00 07:00 Intake Total 1852.532 ml 1586.478 ml Output Total 485 ml 730 ml Balance 1367.532 ml 856.478 ml IV Total 1852.532 ml 1586.478 ml Tube Feeding 0 ml 0 ml Output Urine Total 485 ml 730 ml # Bowel Movements 1 Laboratory Tests Test 01/06/17 04:00 01/06/17 04:05 01/06/17 07:43 01/06/17 15:10 Activated Partial Thromboplast Time 55 SEC (23-33) H 110 SEC (23-33) H White Blood Count 20.1 K/UL (4.8-10.8) H Red Blood Count 2.72 M/UL (4.20-5.40) L Hemoglobin 8.6 G/DL (12.0-16.0) L Hematocrit 26.5 % (37.0-47.0) L Mean Corpuscular Volume 97 FL (80-99) Mean Corpuscular Hemoglobin 31.6 PG (27.0-31.0) H Mean Corpuscular Hemoglobin Concent 32.4 G/DL (32.0-36.0) Red Cell Distribution Width 16.2 % (11.6-14.8) H Platelet Count 253 K/UL (150-450) Mean Platelet Volume 9.8 FL (6.5-10.1) Neutrophils (%) (Auto) % (45.0-75.0) Lymphocytes (%) (Auto) % (20.0-45.0) Monocytes (%) (Auto) % (1.0-10.0) Eosinophils (%) (Auto) % (0.0-3.0) Basophils (%) (Auto) % (0.0-2.0) Differential Total Cells Counted 100 Neutrophils % (Manual) 92 % (45-75) H Lymphocytes % (Manual) 4 % (20-45) L Monocytes % (Manual) 4 % (1-10) Eosinophils % (Manual) 0 % (0-3) Basophils % (Manual) 0 % (0-2) Band Neutrophils 0 % (0-8) Platelet Estimate Adequate Platelet Morphology Normal Hypochromasia 2+ Anisocytosis 1+ Sodium Level 139 mEQ/L (135-145) Potassium Level 3.4 mEQ/L (3.4-4.9) Chloride Level 90 mEQ/L (98-107) L Carbon Dioxide Level 33 mEQ/L (20-30) H Anion Gap 16 (5-15) H Blood Urea Nitrogen 81 mg/dL (7-23) H Creatinine 1.8 mg/dL (0.5-0.9) H Estimat Glomerular Filtration Rate 27.8 mL/min (>60) Glucose Level 140 mg/dL (74-106) H Calcium Level 7.8 mg/dL (8.6-10.2) L Phosphorus Level 7.0 mg/dL (2.5-4.8) H Magnesium Level 2.4 mg/dL (1.7-2.5) Total Bilirubin 0.6 mg/dL (0.0-1.2) Direct Bilirubin 0.2 mg/dL (0.1-0.3) Aspartate Amino Transf (AST/SGOT) 22 U/L (5-40) Alanine Aminotransferase (ALT/SGPT) 5 U/L (3-33) Alkaline Phosphatase 129 U/L (35-104) H Total Protein 6.8 g/dL (6.6-8.7) Albumin 2.6 g/dL (3.5-5.2) L Arterial Blood pH 7.410 (7.350-7.450) Arterial Blood Partial Pressure CO2 59.0 mmHg (35.0-45.0) *H Arterial Blood Partial Pressure O2 97.0 mmHg (75.0-100.0) Arterial Blood HCO3 36.0 mmol/L (22.0-26.0) H Arterial Blood Oxygen Saturation 97.0 % (92.0-98.0) Arterial Blood Base Excess 10 Ok Test Microbiology Date/Time Source Procedure Growth Status 01/04/17 13:30 Stool Clostridium difficile Toxin Assay - Final Complete DAVIAN SIM Jan 06, 2017 17:16
[2017-01-06] MEDS: Metoclopramide 10mg/2ml Inj IVP SCH ×2 (17:53→23:25)
[2017-01-06] MEDS: Pantoprazole Inj IVP SCH (20:42)
[2017-01-07] VITALS (24 sets, daily range): BP systolic 134–166; BP diastolic 47–82
[2017-01-07] MEDS: Meropenem 500mg/NS 55ml IVPB SCH ×2 (02:12)
[2017-01-07] MEDS: Metoclopramide 10mg/2ml Inj IVP SCH ×4 (05:26→23:38)
[2017-01-07] MEDS: Hydrocortisone 100mg Inj IV SCH ×4 (05:26→21:52)
[2017-01-07] MEDS: metroNIDAZOLE 500mg 100 ML IVPB SCH (05:27)
[2017-01-07] MEDS: LORazepam Inj 2mg/ml 1ml IV PRN (05:27)
[2017-01-07] MEDS: NovoLOG Insulin Flexpen SUBQ SCH ×4 (05:32→23:37)
[2017-01-07 06:35] LABS: MEAN CORPUSCULAR HEMOGLOBIN 30.6 PG (27.0-31.0); MEAN CORPUSCULAR HGB CONC 31.5 G/DL (32.0-36.0); MEAN CORPUSCULAR VOLUME 97 FL (80-99); MEAN PLATELET VOLUME 9.2 FL (6.5-10.1); PLATELET COUNT 282 K/UL (150-450); RED BLOOD COUNT 2.69 M/UL (4.20-5.40); RED CELL DISTRIBUTION WIDTH 15.9 % (11.6-14.8); WHITE BLOOD COUNT 16.5 K/UL (4.8-10.8)
[2017-01-07 07:15] LABS: ALBUMIN/GLOBULIN RATIO 0.4 (1.0-2.7); CALCIUM 7.8 mg/dL (8.6-10.2); CREATININE 1.3 mg/dL (0.5-0.9); CRP QUANT 9.9 mg/dL (< 0.5); GLOMERULAR FILTRATION RATE 40.5 mL/min (>60); MAGNESIUM 2.4 mg/dL (1.7-2.5); PHOSPHORUS 5.7 mg/dL (2.5-4.8); TOTAL PROTEIN 6.5 g/dL (6.6-8.7); URIC ACID 11.5 mg/dL (3.0-7.5)
[2017-01-07] MEDS ORDERED: Heparin 25,000u/D5W 500ml 500 ML IV SCH (08:15)
[2017-01-07] MEDS: Renvela 800mg Pkt NG SCH ×3 (08:56→17:45)
[2017-01-07] MEDS: Pantoprazole Inj IVP SCH ×2 (08:56→20:52)
[2017-01-07 09:27] LABS: ABG PCO2 54.1 mmHg (35.0-45.0)
[2017-01-07 09:28] LABS: ABG ALLEN TEST POSITIVE; ABG BASE EXCESS 9.3
[2017-01-07 10:24] LABS: ANISOCYTOSIS 1+; BAND NEUTROPHILS % (MANUAL) 0 % (0-8); BASOPHILS % (MANUAL) 0 % (0-2); EOSINOPHILS % (MANUAL) 0 % (0-3); HYPOCHROMASIA 1+; LYMPHOCYTES % (MANUAL) 2 % (20-45); NEUTROPHILS % (MANUAL) 94 % (45-75); PLATELET ESTIMATE ADEQUATE; PLATELET MORPHOLOGY NORMAL; TOTAL CELLS COUNTED 100
--- NOTE | 2017-01-07 10:32 | Diagnostic Imaging Report ---
Indications: SOB Technique: Portable AP chest Findings: Comparison: 01/05/17 Cardiomegaly, diffuse bilateral pulmonary mixed interstitial and alveolar opacities, left lung base linear density unchanged. Right phrenic angle better defined. No other change. IMPRESSION: Apparent improvement in right pleural effusion Stable bilateral pulmonary infiltrates versus edema
--- NOTE | 2017-01-07 10:56 | GI Progress Note ---
Assessment/Plan Problems: (1) Pancreatitis ICD Codes: K85.9 - Acute pancreatitis, unspecified SNOMED: 56078100 Qualifiers: Qualified Codes: K85.10 - Biliary acute pancreatitis without necrosis or infection (2) Abdominal pain ICD Codes: R10.9 - Unspecified abdominal pain SNOMED: 37991445, 808403689 (3) Iron deficiency anemia ICD Codes: D50.9 - Iron deficiency anemia, unspecified SNOMED: 22476566 (4) Colon polyp ICD Codes: K63.5 - Polyp of colon SNOMED: 06613405 Status: unchanged Status Narrative Discussed with Dr. Gipson. Assessment/Plan Pancreatitis - abdomen still very distended cholelithiasis, no e/o choledocholithiasis rising WBC Respiratory failure >> s/p trach Anemia colon polyp fu CT >> New finding of a 6 x 4.4 x 4.9 cm masslike lesion in the left paracolic gutter, which compresses and splays but does not appear to obstruct an adjacent small bowel loop, see full report. GB surgery on hold 01/04/17 cdiff negative monitor H&H, transfuse prn GTF's per dietary, patient not tolerating >> held + reglan ATC GT site care >> surgery to consult for GT site bleeding ppi BID abx monitor amylase/lipase follow labs supportive care SUMMARY OF FINDINGS: Status post successful PEG placement. RECOMMENDATIONS: 1. Abdominal binder. 2. Elevate the head of the bed at all times. 3. G-tube flush. 4. G-tube care. The patient received a dose of antibiotics prior to this procedure. Subjective Subjective limited Objective Last 24 Hour Vital Signs Date Time Temp Pulse Resp B/P Pulse Ox O2 Delivery O2 Flow Rate FiO2 01/07/17 10:00 91 15 152/81 98 Mechanical Ventilator 55 01/07/17 09:25 89 15 55 01/07/17 09:00 87 20 154/65 98 Mechanical Ventilator 55 01/07/17 08:00 93 01/07/17 08:00 55 01/07/17 08:00 98.4 73 19 158/57 99 Mechanical Ventilator 55 01/07/17 07:00 70 22 161/61 99 Mechanical Ventilator 55 01/07/17 06:53 83 15 55 01/07/17 06:00 98.6 89 26 143/75 98 Mechanical Ventilator 55 01/07/17 05:10 113 18 55 01/07/17 05:00 86 23 148/56 99 Mechanical Ventilator 55 01/07/17 04:00 89 01/07/17 04:00 89 25 159/53 99 Mechanical Ventilator 55 01/07/17 04:00 55 01/07/17 03:30 82 17 55 01/07/17 03:00 74 26 155/67 98 Mechanical Ventilator 55 01/07/17 02:00 79 26 134/62 99 Mechanical Ventilator 55 01/07/17 01:30 87 15 55 01/07/17 01:00 80 25 145/68 98 Mechanical Ventilator 55 01/07/17 00:00 55 01/07/17 00:00 98.7 77 20 142/47 98 Mechanical Ventilator 55 01/07/17 00:00 67 01/06/17 23:30 84 16 55 01/06/17 23:00 77 23 141/49 99 Mechanical Ventilator 55 01/06/17 22:00 80 24 147/64 97 Mechanical Ventilator 55 01/06/17 21:30 93 17 55 01/06/17 21:00 74 22 143/49 99 Mechanical Ventilator 55 01/06/17 20:00 98.5 71 22 142/59 99 Mechanical Ventilator 55 01/06/17 20:00 55 01/06/17 20:00 71 01/06/17 19:30 72 16 55 01/06/17 19:00 72 19 154/51 99 Mechanical Ventilator 55 01/06/17 18:00 75 19 168/68 99 Mechanical Ventilator 55 01/06/17 17:00 84 19 165/76 98 Mechanical Ventilator 55 01/06/17 16:57 78 16 55 01/06/17 16:00 55 01/06/17 16:00 97.7 75 20 153/69 100 Mechanical Ventilator 55 01/06/17 16:00 69 01/06/17 15:19 75 15 55 01/06/17 15:00 69 20 163/56 98 Mechanical Ventilator 55 01/06/17 14:00 68 17 157/67 99 Mechanical Ventilator 55 01/06/17 13:07 73 15 55 01/06/17 13:00 16 17 161/74 99 Mechanical Ventilator 55 01/06/17 12:00 55 01/06/17 12:00 82 01/06/17 12:00 97.5 74 15 165/57 99 Mechanical Ventilator 55 01/06/17 11:24 153/59 01/06/17 11:00 77 17 153/59 99 Mechanical Ventilator 55 Intake and Output 01/06/17 01/07/17 18:59 06:59 Intake Total 1760.894 ml 1894.288 ml Output Total 1100 ml 820 ml Balance 660.894 ml 1074.288 ml IV Total 1680.894 ml 1894.288 ml Tube Feeding 0 ml 0 ml Other 80 ml Output Urine Total 1100 ml 820 ml # Bowel Movements 2 Laboratory Tests Test 01/06/17 15:10 01/06/17 22:45 01/07/17 06:00 01/07/17 08:30 Activated Partial Thromboplast Time 110 SEC (23-33) H 44 SEC (23-33) H > 150 SEC (23-33) *H White Blood Count 16.5 K/UL (4.8-10.8) H Red Blood Count 2.69 M/UL (4.20-5.40) L Hemoglobin 8.2 G/DL (12.0-16.0) L Hematocrit 26.1 % (37.0-47.0) L Mean Corpuscular Volume 97 FL (80-99) Mean Corpuscular Hemoglobin 30.6 PG (27.0-31.0) Mean Corpuscular Hemoglobin Concent 31.5 G/DL (32.0-36.0) L Red Cell Distribution Width 15.9 % (11.6-14.8) H Platelet Count 282 K/UL (150-450) Mean Platelet Volume 9.2 FL (6.5-10.1) Neutrophils (%) (Auto) % (45.0-75.0) Lymphocytes (%) (Auto) % (20.0-45.0) Monocytes (%) (Auto) % (1.0-10.0) Eosinophils (%) (Auto) % (0.0-3.0) Basophils (%) (Auto) % (0.0-2.0) Differential Total Cells Counted 100 Neutrophils % (Manual) 94 % (45-75) H Lymphocytes % (Manual) 2 % (20-45) L Monocytes % (Manual) 4 % (1-10) Eosinophils % (Manual) 0 % (0-3) Basophils % (Manual) 0 % (0-2) Band Neutrophils 0 % (0-8) Platelet Estimate Adequate Platelet Morphology Normal Hypochromasia 1+ Anisocytosis 1+ Sodium Level 140 mEQ/L (135-145) Potassium Level 3.0 mEQ/L (3.4-4.9) L Chloride Level 95 mEQ/L (98-107) L Carbon Dioxide Level 33 mEQ/L (20-30) H Anion Gap 12 (5-15) Blood Urea Nitrogen 78 mg/dL (7-23) H Creatinine 1.3 mg/dL (0.5-0.9) H Estimat Glomerular Filtration Rate 40.5 mL/min (>60) Glucose Level 159 mg/dL (74-106) H Uric Acid 11.5 mg/dL (3.0-7.5) H Calcium Level 7.8 mg/dL (8.6-10.2) L Phosphorus Level 5.7 mg/dL (2.5-4.8) H Magnesium Level 2.4 mg/dL (1.7-2.5) Total Bilirubin 0.7 mg/dL (0.0-1.2) Aspartate Amino Transf (AST/SGOT) 18 U/L (5-40) Alanine Aminotransferase (ALT/SGPT) 5 U/L (3-33) Alkaline Phosphatase 109 U/L (35-104) H C-Reactive Protein, Quantitative 9.9 mg/dL (< 0.5) H Pro-B-Type Natriuretic Peptide 2351 pg/mL (0-125) H Total Protein 6.5 g/dL (6.6-8.7) L Albumin 2.1 g/dL (3.5-5.2) L Globulin 4.4 g/dL Albumin/Globulin Ratio 0.4 (1.0-2.7) L Arterial Blood pH 7.431 (7.350-7.450) Arterial Blood Partial Pressure CO2 54.1 mmHg (35.0-45.0) H Arterial Blood Partial Pressure O2 89.4 mmHg (75.0-100.0) Arterial Blood HCO3 35.2 mmol/L (22.0-26.0) H Arterial Blood Oxygen Saturation 95.5 % (92.0-98.0) Arterial Blood Base Excess 9.3 Ok Test Positive Height (Feet): 5 Height (Inches): 1.00 Weight (Pounds): 145 General Appearance: no apparent distress, alert, obese Cardiovascular: normal rate Respiratory/Chest: other - mech vent Abdominal Exam: distended, GT site - bleeding around GT site Objective Service Date: 12/11/16 Procedure: MRI Abdomen no Contrast Indication: Abdominal pain, possible pancreatitis Findings: Multiple calcifications are seen within the gallbladder. There is a ductal structure cephalad to the gallbladder which contains a filling defect. This is probably the cystic duct, but could be an extrahepatic bile duct, and it is uncertain which of these is. The gallbladder wall is not thickened. The extrahepatic bile ducts are ectatic, with the common bile duct measuring up to 9 mm diameter , but no downstream filling defects are demonstrated. The common bile duct terminates abruptly at the level of the ampulla. The pancreatic duct is mildly ectatic, measuring 3-4 mm in diameter. No intraluminal filling defects are demonstrated. A 7 mm fluid signal lesion is seen within the uncinate process of the pancreas. This may actually be a duodenal diverticulum which is seen on the recent CT scan. There is apparent swelling of the pancreas and considerable free intraperitoneal fluid. No free intraperitoneal fluid presumably increased from the prior CT scan. There are dilated small bowel loops, likely indicating ileus. The liver is unremarkable. The adrenals and kidneys are unremarkable. There are bilateral small pleural effusions. The spleen is unremarkable. The heart is enlarged Impression: Cholelithiasis. There is also a calculus within the duct adjacent to the gallbladder which is probably the cystic duct but could be an extrahepatic bile duct. Extrahepatic and central intrahepatic biliary ductal mild dilatation. No definite downstream calculus or pancreatic head mass to account for this, however. Prominence and edema of the pancreas, better visualized on prior CT scan, consistent with acute pancreatitis, also previously described Ascites fluid, increased from the prior CT scan, likely secondary to the acute pancreatitis Dilated small bowel loops, new since prior CT study. Suspect representing ileus related to the pancreatitis Bilateral small pleural effusions Small cystic lesion within the as a process. Suspect that this is actually the duodenal diverticulum described on recent CT scan, but could represent a tiny pseudocyst or intraductal papillary mucinous neoplasm. Cardiomegaly Lulu Dominguez N.P. January 07, 2017 10:56
--- NOTE | 2017-01-07 11:02 | Pulmonolgy Critical Care Note ---
Critical Care - Asmt/Plan Problems: (1) Respiratory failure requiring intubation (2) Sepsis (3) Pancreatitis (4) ATN (acute tubular necrosis) (5) Atrial fibrillation Respiratory: monitor respiratory rate, adjust FIO2, CXR, other - dexcrease fio to 50% Cardiac: continue to monitor HR/BP Renal: F/U I&O, keep IV fluid, check electrolytes Infectious Disease: check cultures, continue antibiotics Gastrointestinal: continue feedings/current rate Endocrine: monitor blood sugar, check TSH, check HgA1C, continue sliding scale insulin Hematologic: monitor H/H, transfuse if hgb<8.5 Neurologic: PRN Ativan, keep patient comfortable Prophylaxis: Protonix Disposition: keep in ICU 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, 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 with: nurses, consultants, 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 wind - Objective Last 24 Hour Vital Signs Date Time Temp Pulse Resp B/P Pulse Ox O2 Delivery O2 Flow Rate FiO2 01/07/17 10:00 91 15 152/81 98 Mechanical Ventilator 55 01/07/17 09:25 89 15 55 01/07/17 09:00 87 20 154/65 98 Mechanical Ventilator 55 01/07/17 08:00 93 01/07/17 08:00 55 01/07/17 08:00 98.4 73 19 158/57 99 Mechanical Ventilator 55 01/07/17 07:00 70 22 161/61 99 Mechanical Ventilator 55 01/07/17 06:53 83 15 55 01/07/17 06:00 98.6 89 26 143/75 98 Mechanical Ventilator 55 01/07/17 05:10 113 18 55 01/07/17 05:00 86 23 148/56 99 Mechanical Ventilator 55 01/07/17 04:00 89 01/07/17 04:00 89 25 159/53 99 Mechanical Ventilator 55 01/07/17 04:00 55 01/07/17 03:30 82 17 55 01/07/17 03:00 74 26 155/67 98 Mechanical Ventilator 55 01/07/17 02:00 79 26 134/62 99 Mechanical Ventilator 55 01/07/17 01:30 87 15 55 01/07/17 01:00 80 25 145/68 98 Mechanical Ventilator 55 01/07/17 00:00 55 01/07/17 00:00 98.7 77 20 142/47 98 Mechanical Ventilator 55 01/07/17 00:00 67 01/06/17 23:30 84 16 55 01/06/17 23:00 77 23 141/49 99 Mechanical Ventilator 55 01/06/17 22:00 80 24 147/64 97 Mechanical Ventilator 55 01/06/17 21:30 93 17 55 01/06/17 21:00 74 22 143/49 99 Mechanical Ventilator 55 01/06/17 20:00 98.5 71 22 142/59 99 Mechanical Ventilator 55 01/06/17 20:00 55 01/06/17 20:00 71 01/06/17 19:30 72 16 55 01/06/17 19:00 72 19 154/51 99 Mechanical Ventilator 55 01/06/17 18:00 75 19 168/68 99 Mechanical Ventilator 55 01/06/17 17:00 84 19 165/76 98 Mechanical Ventilator 55 01/06/17 16:57 78 16 55 01/06/17 16:00 55 01/06/17 16:00 97.7 75 20 153/69 100 Mechanical Ventilator 55 01/06/17 16:00 69 01/06/17 15:19 75 15 55 01/06/17 15:00 69 20 163/56 98 Mechanical Ventilator 55 01/06/17 14:00 68 17 157/67 99 Mechanical Ventilator 55 01/06/17 13:07 73 15 55 01/06/17 13:00 16 17 161/74 99 Mechanical Ventilator 55 01/06/17 12:00 55 01/06/17 12:00 82 01/06/17 12:00 97.5 74 15 165/57 99 Mechanical Ventilator 55 01/06/17 11:24 153/59 Status: awake Condition: critical HEENT: atraumatic Lungs: clear Heart: HR/BP stable, HR/BP unstable Abdomen: soft, non-tender, feeding tube Extremities: edema Decubiti: stage Micro: Microbiology Date/Time Source Procedure Growth Status 01/04/17 13:30 Stool Clostridium difficile Toxin Assay - Final Complete Accucheck: 169 Critical Care - Subjective ROS Limited/Unobtainable: No ICU Day: 29 Intubation Day: s/t darion Condition: critical EKG Rhythm: Sinus Rhythm FI02: 55 Vent Support Breath Rate: 15 Vent Support Mode: AC Vent Tidal Volume: 500 Sputum Amount: Small PEEP: 7.0 PIP: 42 Tube Feeding Amount: 0 I&O: Intake and Output 01/06/17 01/07/17 19:00 07:00 Intake Total 1692.746 ml 1861.186 ml Output Total 1300 ml 620 ml Balance 392.746 ml 1241.186 ml IV Total 1612.746 ml 1861.186 ml Tube Feeding 0 ml 0 ml Other 80 ml Output Urine Total 1300 ml 620 ml # Bowel Movements 2 CXR: bilateral infiltrate, trach in good place ET Position: 22 Labs: Laboratory Tests Test 01/06/17 15:10 01/06/17 22:45 01/07/17 06:00 01/07/17 08:30 Activated Partial Thromboplast Time 110 SEC (23-33) H 44 SEC (23-33) H > 150 SEC (23-33) *H White Blood Count 16.5 K/UL (4.8-10.8) H Red Blood Count 2.69 M/UL (4.20-5.40) L Hemoglobin 8.2 G/DL (12.0-16.0) L Hematocrit 26.1 % (37.0-47.0) L Mean Corpuscular Volume 97 FL (80-99) Mean Corpuscular Hemoglobin 30.6 PG (27.0-31.0) Mean Corpuscular Hemoglobin Concent 31.5 G/DL (32.0-36.0) L Red Cell Distribution Width 15.9 % (11.6-14.8) H Platelet Count 282 K/UL (150-450) Mean Platelet Volume 9.2 FL (6.5-10.1) Neutrophils (%) (Auto) % (45.0-75.0) Lymphocytes (%) (Auto) % (20.0-45.0) Monocytes (%) (Auto) % (1.0-10.0) Eosinophils (%) (Auto) % (0.0-3.0) Basophils (%) (Auto) % (0.0-2.0) Differential Total Cells Counted 100 Neutrophils % (Manual) 94 % (45-75) H Lymphocytes % (Manual) 2 % (20-45) L Monocytes % (Manual) 4 % (1-10) Eosinophils % (Manual) 0 % (0-3) Basophils % (Manual) 0 % (0-2) Band Neutrophils 0 % (0-8) Platelet Estimate Adequate Platelet Morphology Normal Hypochromasia 1+ Anisocytosis 1+ Sodium Level 140 mEQ/L (135-145) Potassium Level 3.0 mEQ/L (3.4-4.9) L Chloride Level 95 mEQ/L (98-107) L Carbon Dioxide Level 33 mEQ/L (20-30) H Anion Gap 12 (5-15) Blood Urea Nitrogen 78 mg/dL (7-23) H Creatinine 1.3 mg/dL (0.5-0.9) H Estimat Glomerular Filtration Rate 40.5 mL/min (>60) Glucose Level 159 mg/dL (74-106) H Uric Acid 11.5 mg/dL (3.0-7.5) H Calcium Level 7.8 mg/dL (8.6-10.2) L Phosphorus Level 5.7 mg/dL (2.5-4.8) H Magnesium Level 2.4 mg/dL (1.7-2.5) Total Bilirubin 0.7 mg/dL (0.0-1.2) Aspartate Amino Transf (AST/SGOT) 18 U/L (5-40) Alanine Aminotransferase (ALT/SGPT) 5 U/L (3-33) Alkaline Phosphatase 109 U/L (35-104) H C-Reactive Protein, Quantitative 9.9 mg/dL (< 0.5) H Pro-B-Type Natriuretic Peptide 2351 pg/mL (0-125) H Total Protein 6.5 g/dL (6.6-8.7) L Albumin 2.1 g/dL (3.5-5.2) L Globulin 4.4 g/dL Albumin/Globulin Ratio 0.4 (1.0-2.7) L Arterial Blood pH 7.431 (7.350-7.450) Arterial Blood Partial Pressure CO2 54.1 mmHg (35.0-45.0) H Arterial Blood Partial Pressure O2 89.4 mmHg (75.0-100.0) Arterial Blood HCO3 35.2 mmol/L (22.0-26.0) H Arterial Blood Oxygen Saturation 95.5 % (92.0-98.0) Arterial Blood Base Excess 9.3 Ok Test Positive TONY BRIDGES January 07, 2017 11:02
--- NOTE | 2017-01-07 11:04 | Diagnostic Imaging Report ---
Indication: Abdominal distention Technique: Boyce-scale and duplex images of the upper abdomen were obtained Comparison: 12/18/2016 Findings: Gallbladder demonstrates gallstones and sludge, wall is thickened, measuring 5 mm thick. Common bile duct measures 9 mm in diameter. No intrahepatic biliary ductal dilatation. Liver demonstrates coarsened echotexture. The demonstrate surface nodularity. Is enlarged. There is a small amount of ascites fluid present. Portal vein and hepatic veins are patent. Pancreas is obscured by bowel gas. Spleen is unremarkable. Left kidney measures 11.3 cm in length. Right kidney measures 10.7 cm length. Both kidneys demonstrate normal echogenicity. There is no hydronephrosis. No focal abnormality . Abdominal aorta is obscured by bowel gas . Impression: Ascites Cholelithiasis and gallbladder sludge. There is also gallbladder wall thickening. This could be related to the hemodynamic arrangements causing the ascites, but acute cholecystitis is not excludable. Correlate with clinical findings, consider nuclear medicine hepatobiliary scan if there is high clinical suspicion Mild extrahepatic biliary ductal dilatation. Correlate with liver function tests, consider MRCP for further evaluation if clinically indicated Coarsened hepatic echotexture with surface nodularity, concerning for cirrhotic change. Note inability to visualize the abdominal aorta and the pancreas
--- NOTE | 2017-01-07 11:20 | Diagnostic Imaging Report ---
Indication: SOB Technique: One view of the chest Comparison: 01/06/2017 Findings: Diffuse bilateral interstitial and alveolar opacities, left basilar atelectasis and/or scarring demonstrated. Increased opacity at the right lung base may reflect developing pleural fluid. Cardiomegaly, tracheostomy remain Impression: Obscured right hemidiaphragm, may reflect new or increasing right pleural effusion. 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
[2017-01-07] MEDS ORDERED: Surgicel 4in x 8in TOPIC ONE (11:29)
--- NOTE | 2017-01-07 11:48 | General Progress Note ---
Progress Note Progress Note Surgery: patient seen and examined at bedside. no acute events. vent settings improved. bleeding around g tube site. trach functional single suture placed around g tube site for hemostasis with good effect. dressings applied. abdomen otherwise stable in exam. still distended but not tender. continue current care and management for acute severe pancreatitis / respiratory failure repeat CT A/P Rodrigo Andino January 07, 2017 11:48
[2017-01-07] MEDS: Morphine Sulfate 4mg/ml Inj IVP PRN (12:01)
--- NOTE | 2017-01-07 13:19 | Infectious Diseases Prog Note ---
Assessment/Plan Assessment/Plan ASSESSMENT: Fever, SP leukocytosis improving Pancreatitis improving CT: Findings compatible with marked worsening of acute pancreatitis MRCP : Cholelithiasis. There is also a calculus within the duct adjacent to the gallbladder Pancreatic Enzymes improving CT of Abd : reviewed cholelithiasis : US of liver : Incidental finding of cholelithiasis and mild gallbladder wall thickening positive sonographic Diaz's sign LFT : Nl UTI : Mandy SCx : Mandy ( colonizer ) SP PEG 01/02 VDRF: SP trach 01/01 Cxray : Increase in bilateral congestive changes with persistent small right , probable new left pleural effusions ARF SP aortic stenosis mitral stenosis status post mitral valve replacement AFib Pulmonary hypertension PLAN: - cont on IV Merrem and DC Zyvox d#5 and Flagyl d# 4 , oral Amoxi d# 1 / 7 ( 12/28 SP Diflucan d# 10 ) ( 12/24 SP Merrem d# 14 /14 ) - monitor CBC, temperatures, - monitor LFT - GI f/u - Sx is following for possible Cholecystectomy later - VDRF - Dopamine ( renal dose ) - Rojo Cx ( Bl ) Subjective Constitutional: Denies: anorexia, chills, drenching sweats, fatigue, fever, no symptoms, other Allergies: Coded Allergies: No Known Allergies (Unverified , 09/28/14) Subjective on Vent Objective Vital Signs Last 24 Hour Vital Signs Date Time Temp Pulse Resp B/P Pulse Ox O2 Delivery O2 Flow Rate FiO2 01/07/17 12:58 88 15 50 01/07/17 12:35 98.4 01/07/17 12:00 89 01/07/17 12:00 50 01/07/17 11:07 102 18 50 01/07/17 11:00 95 18 155/74 97 Mechanical Ventilator 55 01/07/17 10:00 91 15 152/81 98 Mechanical Ventilator 55 01/07/17 09:25 89 15 55 01/07/17 09:00 87 20 154/65 98 Mechanical Ventilator 55 01/07/17 08:00 93 01/07/17 08:00 55 01/07/17 08:00 98.4 73 19 158/57 99 Mechanical Ventilator 55 01/07/17 07:00 70 22 161/61 99 Mechanical Ventilator 55 01/07/17 06:53 83 15 55 01/07/17 06:00 98.6 89 26 143/75 98 Mechanical Ventilator 55 01/07/17 05:10 113 18 55 01/07/17 05:00 86 23 148/56 99 Mechanical Ventilator 55 01/07/17 04:00 89 01/07/17 04:00 89 25 159/53 99 Mechanical Ventilator 55 01/07/17 04:00 55 01/07/17 03:30 82 17 55 01/07/17 03:00 74 26 155/67 98 Mechanical Ventilator 55 01/07/17 02:00 79 26 134/62 99 Mechanical Ventilator 55 01/07/17 01:30 87 15 55 01/07/17 01:00 80 25 145/68 98 Mechanical Ventilator 55 01/07/17 00:00 55 01/07/17 00:00 98.7 77 20 142/47 98 Mechanical Ventilator 55 01/07/17 00:00 67 01/06/17 23:30 84 16 55 01/06/17 23:00 77 23 141/49 99 Mechanical Ventilator 55 01/06/17 22:00 80 24 147/64 97 Mechanical Ventilator 55 01/06/17 21:30 93 17 55 01/06/17 21:00 74 22 143/49 99 Mechanical Ventilator 55 01/06/17 20:00 98.5 71 22 142/59 99 Mechanical Ventilator 55 01/06/17 20:00 55 01/06/17 20:00 71 01/06/17 19:30 72 16 55 01/06/17 19:00 72 19 154/51 99 Mechanical Ventilator 55 01/06/17 18:00 75 19 168/68 99 Mechanical Ventilator 55 01/06/17 17:00 84 19 165/76 98 Mechanical Ventilator 55 01/06/17 16:57 78 16 55 01/06/17 16:00 55 01/06/17 16:00 97.7 75 20 153/69 100 Mechanical Ventilator 55 01/06/17 16:00 69 01/06/17 15:19 75 15 55 01/06/17 15:00 69 20 163/56 98 Mechanical Ventilator 55 01/06/17 14:00 68 17 157/67 99 Mechanical Ventilator 55 Height (Feet): 5 Height (Inches): 1.00 Weight (Pounds): 145 HEENT: anicteric Respiratory/Chest: no respiratory distress Cardiovascular: normal rate Abdomen: non distended Microbiology Date/Time Source Procedure Growth Status 4/28/17 13:30 Stool Clostridium difficile Toxin Assay - Final Complete Laboratory Tests Test 01/06/17 15:10 01/06/17 22:45 01/07/17 06:00 01/07/17 08:30 Activated Partial Thromboplast Time 110 SEC (23-33) H 44 SEC (23-33) H > 150 SEC (23-33) *H White Blood Count 16.5 K/UL (4.8-10.8) H Red Blood Count 2.69 M/UL (4.20-5.40) L Hemoglobin 8.2 G/DL (12.0-16.0) L Hematocrit 26.1 % (37.0-47.0) L Mean Corpuscular Volume 97 FL (80-99) Mean Corpuscular Hemoglobin 30.6 PG (27.0-31.0) Mean Corpuscular Hemoglobin Concent 31.5 G/DL (32.0-36.0) L Red Cell Distribution Width 15.9 % (11.6-14.8) H Platelet Count 282 K/UL (150-450) Mean Platelet Volume 9.2 FL (6.5-10.1) Neutrophils (%) (Auto) % (45.0-75.0) Lymphocytes (%) (Auto) % (20.0-45.0) Monocytes (%) (Auto) % (1.0-10.0) Eosinophils (%) (Auto) % (0.0-3.0) Basophils (%) (Auto) % (0.0-2.0) Differential Total Cells Counted 100 Neutrophils % (Manual) 94 % (45-75) H Lymphocytes % (Manual) 2 % (20-45) L Monocytes % (Manual) 4 % (1-10) Eosinophils % (Manual) 0 % (0-3) Basophils % (Manual) 0 % (0-2) Band Neutrophils 0 % (0-8) Platelet Estimate Adequate Platelet Morphology Normal Hypochromasia 1+ Anisocytosis 1+ Sodium Level 140 mEQ/L (135-145) Potassium Level 3.0 mEQ/L (3.4-4.9) L Chloride Level 95 mEQ/L (98-107) L Carbon Dioxide Level 33 mEQ/L (20-30) H Anion Gap 12 (5-15) Blood Urea Nitrogen 78 mg/dL (7-23) H Creatinine 1.3 mg/dL (0.5-0.9) H Estimat Glomerular Filtration Rate 40.5 mL/min (>60) Glucose Level 159 mg/dL (74-106) H Uric Acid 11.5 mg/dL (3.0-7.5) H Calcium Level 7.8 mg/dL (8.6-10.2) L Phosphorus Level 5.7 mg/dL (2.5-4.8) H Magnesium Level 2.4 mg/dL (1.7-2.5) Total Bilirubin 0.7 mg/dL (0.0-1.2) Aspartate Amino Transf (AST/SGOT) 18 U/L (5-40) Alanine Aminotransferase (ALT/SGPT) 5 U/L (3-33) Alkaline Phosphatase 109 U/L (35-104) H C-Reactive Protein, Quantitative 9.9 mg/dL (< 0.5) H Pro-B-Type Natriuretic Peptide 2351 pg/mL (0-125) H Total Protein 6.5 g/dL (6.6-8.7) L Albumin 2.1 g/dL (3.5-5.2) L Globulin 4.4 g/dL Albumin/Globulin Ratio 0.4 (1.0-2.7) L Arterial Blood pH 7.431 (7.350-7.450) Arterial Blood Partial Pressure CO2 54.1 mmHg (35.0-45.0) H Arterial Blood Partial Pressure O2 89.4 mmHg (75.0-100.0) Arterial Blood HCO3 35.2 mmol/L (22.0-26.0) H Arterial Blood Oxygen Saturation 95.5 % (92.0-98.0) Arterial Blood Base Excess 9.3 Ok Test Positive Current Medications Medications (Trade) Dose Ordered Sig/Lisbeth Route PRN Reason Start Time Stop Time Status Last Admin Dose Admin Acetaminophen (Tylenol) 650 mg Q4H PRN ORAL fever 12/17/16 08:00 01/16/17 07:59 01/05/17 07:36 Albuterol/ Ipratropium (DuoNeb 0.5-3(2.5)mg/3ml) 3 ml Q4HRT PRN HHN sob 01/05/17 07:30 01/10/17 07:29 Dextrose (Dextrose 50%) STAT PRN IV Hypoglycemia 12/17/16 07:30 01/16/17 07:29 Dopamine HCl/ Dextrose (DOPamine 400mg/ 250ml) 250 ml @ 0 mls/hr Q24H IV 01/01/17 18:00 01/31/17 17:59 01/06/17 11:24 Heparin Sodium/ Dextrose 500 ml @ 33.102 mls/ hr adjust per protocol IV 01/07/17 08:15 02/06/17 08:14 01/07/17 08:18 Hydrocortisone (Solu-CORTEF) 100 mg EVERY 8 HOURS IV 01/03/17 11:00 02/02/17 10:59 01/07/17 05:26 Hydrocortisone 1 supp 1 supp BIDPRN PRN RECTAL Anal discomfort/swelling/bleed 01/01/17 17:00 01/31/17 16:59 Insulin Aspart (NovoLOG) No Dose Q6HR SUBQ 12/17/16 12:00 01/16/17 11:59 01/07/17 12:02 Linezolid 300 ml @ 300 mls/hr Q12HR@0300,1500 IVPB 01/03/17 15:00 01/10/17 14:59 01/07/17 02:33 Lorazepam (Ativan 2mg/ml 1ml) 1 mg Q4H PRN IV For Anxiety 01/05/17 10:00 01/12/17 09:59 01/07/17 05:27 Meropenem/Sodium Chloride (Merrem/Sodium Chloride) 110 ml @ 220 mls/hr Q12HR@0200,1400 IVPB 01/07/17 14:00 01/12/17 13:59 Metoclopramide HCl (Reglan) 10 mg Q6H IVP 01/06/17 18:00 02/05/17 17:59 01/07/17 12:01 Metronidazole 100 ml @ 100 mls/hr Q8HR IVPB 01/04/17 15:00 01/11/17 14:59 01/07/17 05:27 Morphine Sulfate (Morphine Sulfate) 4 mg Q4H PRN IVP PAIN 4-10 01/07/17 11:45 01/14/17 11:44 01/07/17 12:01 Ondansetron HCl (Zofran) 4 mg EVERY 4 HOURS PRN IVP Nausea & Vomiting 01/03/17 07:00 02/02/17 06:59 01/05/17 07:04 Pantoprazole 40 mg 40 mg EVERY 12 HOURS IVP 01/06/17 21:00 02/05/17 20:59 01/07/17 08:56 Sevelamer Carbonate (Renvela) 1,600 mg THREE TIMES A DAY NG 01/05/17 10:00 02/04/17 09:59 01/07/17 08:56 Sodium Chloride (Sodium Chloride 1000ml bag) 1,000 ml @ 75 mls/hr [id number] IV 01/04/17 15:45 02/03/17 15:44 01/07/17 08:56 Temazepam 15 mg 15 mg HSPRN PRN GT Insomnia 01/03/17 21:00 01/10/17 20:59 01/04/17 21:43 OSCAR ANDERSON M.D. January 07, 2017 13:19
--- NOTE | 2017-01-07 14:50 | Wound Care Consultation ---
Wound Assessment Wound Assessment : Wound Present on Admission: No New Wound: Yes Status Change of Wound: No Wound Location Body Site Modif: mid Wound Location Body Site: sacral Wound Type: pressure ulcer Jack Test: Does not Jack Pressure Ulcer Stage: II - resolving Wound Thickness: Partial Thickness Wound Length: 1.0 Wound Width: 2.0 Wound Depth: <0.1 Percent of Wound [place]/Red: 100 Wound Drainage Amount: None Wound Drainage Odor: None/Absent Tissue Surrounding Wound: Erythemic Wound General Appearance: Reddened, Clean/Dry Wound Comment #1 mid sacral resolving stage II. Recommendation. - Local wound care as ordered. -Turn and reposition. -Keep clean and dry. -Optimize nutrition. -Offload nutrition. -Offload affective site. - SPR low air loss mattress overlay. -Assess and notify MD for any change of condition. SWAPNIL EDWARDS January 07, 2017 14:50
[2017-01-07] MEDS: Amoxicillin 250mg/5ml susp GT SCH ×2 (15:03→21:52)
[2017-01-07] MEDS: Meropenem 1gm/NS 110ml IVPB SCH ×2 (15:03)
--- NOTE | 2017-01-07 16:00 | General Progress Note ---
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 Mirtral Vavle prosthesis on anticoagulation Pulmonary HTN HypoAlbuminemia ARDS Plan: add allopurinol and K supplement Decrease IV change reglan to IV Hydrocortisone IV Fluid challenge Keep bp above 100 syst by adjusting BP meds Optimize cardiac status K supplement as needed Adjust pulmonary status- Per GI / Surgery Avoid nephrotoxics monitor renal parameters Subjective ROS Limited/Unobtainable: Yes Allergies: Coded Allergies: No Known Allergies (Unverified , 09/28/14) Objective Last 24 Hour Vital Signs Date Time Temp Pulse Resp B/P Pulse Ox O2 Delivery O2 Flow Rate FiO2 01/07/17 15:00 87 15 134/53 98 Mechanical Ventilator 50 01/07/17 14:35 123 15 50 01/07/17 14:00 86 18 159/64 97 Mechanical Ventilator 50 01/07/17 13:00 90 18 166/67 98 Mechanical Ventilator 50 01/07/17 12:58 88 15 50 01/07/17 12:35 98.4 01/07/17 12:00 89 01/07/17 12:00 50 01/07/17 12:00 98.2 90 18 166/67 98 Mechanical Ventilator 50 01/07/17 11:07 102 18 50 01/07/17 11:00 95 18 155/74 97 Mechanical Ventilator 55 01/07/17 10:00 91 15 152/81 98 Mechanical Ventilator 55 01/07/17 09:25 89 15 55 01/07/17 09:00 87 20 154/65 98 Mechanical Ventilator 55 01/07/17 08:00 93 01/07/17 08:00 55 01/07/17 08:00 98.4 73 19 158/57 99 Mechanical Ventilator 55 01/07/17 07:00 70 22 161/61 99 Mechanical Ventilator 55 01/07/17 06:53 83 15 55 01/07/17 06:00 98.6 89 26 143/75 98 Mechanical Ventilator 55 01/07/17 05:10 113 18 55 01/07/17 05:00 86 23 148/56 99 Mechanical Ventilator 55 01/07/17 04:00 89 01/07/17 04:00 89 25 159/53 99 Mechanical Ventilator 55 01/07/17 04:00 55 01/07/17 03:30 82 17 55 01/07/17 03:00 74 26 155/67 98 Mechanical Ventilator 55 01/07/17 02:00 79 26 134/62 99 Mechanical Ventilator 55 01/07/17 01:30 87 15 55 01/07/17 01:00 80 25 145/68 98 Mechanical Ventilator 55 01/07/17 00:00 55 01/07/17 00:00 98.7 77 20 142/47 98 Mechanical Ventilator 55 01/07/17 00:00 67 01/06/17 23:30 84 16 55 01/06/17 23:00 77 23 141/49 99 Mechanical Ventilator 55 01/06/17 22:00 80 24 147/64 97 Mechanical Ventilator 55 01/06/17 21:30 93 17 55 01/06/17 21:00 74 22 143/49 99 Mechanical Ventilator 55 01/06/17 20:00 98.5 71 22 142/59 99 Mechanical Ventilator 55 01/06/17 20:00 55 01/06/17 20:00 71 01/06/17 19:30 72 16 55 01/06/17 19:00 72 19 154/51 99 Mechanical Ventilator 55 01/06/17 18:00 75 19 168/68 99 Mechanical Ventilator 55 01/06/17 17:00 84 19 165/76 98 Mechanical Ventilator 55 01/06/17 16:57 78 16 55 01/06/17 16:00 55 01/06/17 16:00 97.7 75 20 153/69 100 Mechanical Ventilator 55 01/06/17 16:00 69 Intake and Output 01/06/17 01/07/17 19:00 07:00 Intake Total 1692.746 ml 1861.186 ml Output Total 1300 ml 620 ml Balance 392.746 ml 1241.186 ml IV Total 1612.746 ml 1861.186 ml Tube Feeding 0 ml 0 ml Other 80 ml Output Urine Total 1300 ml 620 ml # Bowel Movements 2 Laboratory Tests 01/06/17 22:45: Activated Partial Thromboplast Time 44H 01/07/17 06:00: Activated Partial Thromboplast Time > 150*H, White Blood Count 16.5H, Red Blood Count 2.69L, Hemoglobin 8.2L, Hematocrit 26.1L, Mean Corpuscular Volume 97, Mean Corpuscular Hemoglobin 30.6, Mean Corpuscular Hemoglobin Concent 31.5L, Red Cell Distribution Width 15.9H, Platelet Count 282, Mean Platelet Volume 9.2 , Neutrophils (%) (Auto) , Lymphocytes (%) (Auto) , Monocytes (%) (Auto) , Eosinophils (%) (Auto) , Basophils (%) (Auto) , Differential Total Cells Counted 100, Neutrophils % (Manual) 94H, Lymphocytes % (Manual) 2L, Monocytes % (Manual) 4, Eosinophils % (Manual) 0, Basophils % (Manual) 0, Band Neutrophils 0 , Platelet Estimate Adequate, Platelet Morphology Normal, Hypochromasia 1+, Anisocytosis 1+, Sodium Level 140, Potassium Level 3.0L, Chloride Level 95L, Carbon Dioxide Level 33H, Anion Gap 12, Blood Urea Nitrogen 78H, Creatinine 1.3H , Estimat Glomerular Filtration Rate 40.5, Glucose Level 159H, Uric Acid 11.5H, Calcium Level 7.8L, Phosphorus Level 5.7H, Magnesium Level 2.4, Total Bilirubin 0.7, Aspartate Amino Transf (AST/SGOT) 18, Alanine Aminotransferase (ALT/SGPT) 5 , Alkaline Phosphatase 109H, C-Reactive Protein, Quantitative 9.9H, Pro-B-Type Natriuretic Peptide 2351H, Total Protein 6.5L, Albumin 2.1L, Globulin 4.4, Albumin/Globulin Ratio 0.4L 01/07/17 08:30: Arterial Blood pH 7.431, Arterial Blood Partial Pressure CO2 54.1H, Arterial Blood Partial Pressure O2 89.4, Arterial Blood HCO3 35.2H, Arterial Blood Oxygen Saturation 95.5, Arterial Blood Base Excess 9.3, Ok Test Positive Height (Feet): 5 Height (Inches): 1.00 Weight (Pounds): 145 EENT: other - Trach Cardiovascular: tachycardia Respiratory/Chest: decreased breath sounds Abdomen: soft Objective other PE not changed KAMINI SNOW January 07, 2017 16:00
[2017-01-07] MEDS ORDERED: KCl 10% 40mEq/30ml liquid NG ONE (16:30)
--- NOTE | 2017-01-07 16:35 | Diagnostic Imaging Report ---
Indication: Abdominal distention. History pancreatitis Technique: Spiral acquisitions obtained through the abdomen and pelvis. Patient given enteric contrast. No IV contrast utilized, per referring physician request.. Multiplanar reconstructions were generated. Total dose length product 1054 mGycm. CTDIvol(s) 9 mGy. Dose reduction achieved using automated exposure control Comparison: 12/24/2016 contrast study Findings: The pancreas appears mildly prominent, although no more so than on the prior study. There is some infiltration of the peripancreatic fat, with extends into the mesenteric root and the transverse mesocolon, similar to previous. No focal peripancreatic fluid collections are evident. In the absence of contrast enhancement, perfusion of the pancreatic substance cannot be assessed. There is considerable free intraperitoneal fluid, which is seen over the dome of the liver and spleen, within the paracolic gutters, and within the leaves of the mesentery. This is minimally increased in amount from the prior study. The gallbladder is distended, more so than previously, and again is seen to contain multiple calculi. There is again demonstrated extensive diffuse edema, involving the subcutaneous fat as well as the retroperitoneal and mesenteric fat. This is overall similar in extent to the prior study. There is also a large right and small left pleural effusion present. Lack of IV contrast limits assessment of the other solid organs. The liver, spleen, adrenals are unremarkable. The right renal boundaries are lobulated, likely reflecting cortical scarring. Small exophytic subcentimeter low-attenuation lesions are seen on the right. No gross focal abnormality on the left. No mesenteric or retroperitoneal mass or adenopathy. No pelvic mass or adenopathy. A Mathias catheter is again present within the bladder. Extensive consolidation and atelectasis of the right lower lobe is again demonstrated. This is even more extensive than on the prior study. The heart remains considerably enlarged. A mitral valve prosthesis is again demonstrated. Some compressive atelectasis and consolidation is also seen at the left lower lobe, although this is less extensive than previously. Previously demonstrated left paracolic gutter mixed attenuation mass currently measures 5 cm long axis dimension, previously 6 cm. Second previously described similar lesion currently measures 2.5 cm long axis dimension, previously 5.8. 17 mm lesion near the anterior tip of the spleen is slightly diminished from the previous study. There is no evidence of diverticulosis or diverticulitis. No small bowel distention. Contrast is seen to traverse the entirety of the small bowel and reach the ascending and proximal transverse colon. The appendix is normal. There is no small bowel wall thickening. There is a gastrostomy now present, tip in good position. The distal esophagus is unremarkable. Small duodenal diverticulum is again demonstrated. No free intraperitoneal air. Impression: Equivocal minimal prominence to the pancreatic substance, could indicate ongoing acute pancreatitis. However, this is not particularly striking, and is unchanged from the previous study. Infiltration of the peripancreatic fat, overall similar to the prior study. While this could represent a manifestation of acute pancreatitis as described previously, it is possible that this is just as a manifestation of the generalized anasarca causing edema/infiltration of the soft tissues elsewhere. Correlation with clinical and laboratory findings is recommended. As mentioned just above, there is ongoing anasarca, with diffuse edema of the subcutaneous, abdominal, mesenteric fat, as well as ascites and bilateral pleural effusions. This is essentially unchanged from the previous study of 2 weeks earlier Bilateral pleural effusions. Resultant extensive atelectasis and consolidation of most of the right lower lobe. This -- is progressive since the prior study. Smaller left pleural effusion with decreased left lower lobe consolidation since previous exam Previously reported hyperattenuating left retroperitoneal and intraperitoneal masses, previously thought to represent hematomas, are now slightly smaller. No new similar lesions are evident. Cholelithiasis, also previously described. Note that the gallbladder is more distended than on the prior study. Significance of this is uncertain, but hepatobiliary nuclear scan should be considered if there is high suspicion for acute cholecystitis Cardiomegaly and mitral valve prosthesis, also previously described. New gastrostomy, no unusual features Other findings as noted, including Mathias catheter, small duodenal diverticulum, probable small right renal cysts The CT scanner at [facility] is accredited by the [employer] [place] [employer] and the scans are performed using protocols designed to limit radiation exposure to as low as reasonably achievable to attain images of sufficient resolution adequate for diagnostic evaluation.
--- NOTE | 2017-01-07 16:36 | Cardiology Progress Note ---
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 perm afib on anticoagulation with Coumadin coagulopathy now elevated due to med interaction adn disease process leukocytosis ARF intra abd hematomas brbpr hypernatremia imporved bleeding around trach site s/p suture ct performed 12/24/2016 showed multi hematomas in barber bd cavity was performed agina today await results bp seem ok cr is better slow wean now post trach heparin drip for mechanical mv is now on steroid wbc better watch cr better post hydration d/w family consider dc ivf will d/w dr marx and malcom Subjective Cardiovascular: Denies: chest pain, lightheadedness Respiratory: Denies: shortness of breath Gastrointestinal/Abdominal: Denies: abdominal pain Genitourinary: Denies: burning Subjective on the vent ,s/p trach Objective Last 24 Hour Vital Signs Date Time Temp Pulse Resp B/P Pulse Ox O2 Delivery O2 Flow Rate FiO2 01/07/17 15:00 87 15 134/53 98 Mechanical Ventilator 50 01/07/17 14:35 123 15 50 01/07/17 14:00 86 18 159/64 97 Mechanical Ventilator 50 01/07/17 13:00 90 18 166/67 98 Mechanical Ventilator 50 01/07/17 12:58 88 15 50 01/07/17 12:35 98.4 01/07/17 12:00 89 01/07/17 12:00 50 01/07/17 12:00 98.2 90 18 166/67 98 Mechanical Ventilator 50 01/07/17 11:07 102 18 50 01/07/17 11:00 95 18 155/74 97 Mechanical Ventilator 55 01/07/17 10:00 91 15 152/81 98 Mechanical Ventilator 55 01/07/17 09:25 89 15 55 01/07/17 09:00 87 20 154/65 98 Mechanical Ventilator 55 01/07/17 08:00 93 01/07/17 08:00 55 01/07/17 08:00 98.4 73 19 158/57 99 Mechanical Ventilator 55 01/07/17 07:00 70 22 161/61 99 Mechanical Ventilator 55 01/07/17 06:53 83 15 55 01/07/17 06:00 98.6 89 26 143/75 98 Mechanical Ventilator 55 01/07/17 05:10 113 18 55 01/07/17 05:00 86 23 148/56 99 Mechanical Ventilator 55 01/07/17 04:00 89 01/07/17 04:00 89 25 159/53 99 Mechanical Ventilator 55 01/07/17 04:00 55 01/07/17 03:30 82 17 55 01/07/17 03:00 74 26 155/67 98 Mechanical Ventilator 55 01/07/17 02:00 79 26 134/62 99 Mechanical Ventilator 55 01/07/17 01:30 87 15 55 01/07/17 01:00 80 25 145/68 98 Mechanical Ventilator 55 01/07/17 00:00 55 01/07/17 00:00 98.7 77 20 142/47 98 Mechanical Ventilator 55 01/07/17 00:00 67 01/06/17 23:30 84 16 55 01/06/17 23:00 77 23 141/49 99 Mechanical Ventilator 55 01/06/17 22:00 80 24 147/64 97 Mechanical Ventilator 55 01/06/17 21:30 93 17 55 01/06/17 21:00 74 22 143/49 99 Mechanical Ventilator 55 01/06/17 20:00 98.5 71 22 142/59 99 Mechanical Ventilator 55 01/06/17 20:00 55 01/06/17 20:00 71 01/06/17 19:30 72 16 55 01/06/17 19:00 72 19 154/51 99 Mechanical Ventilator 55 01/06/17 18:00 75 19 168/68 99 Mechanical Ventilator 55 01/06/17 17:00 84 19 165/76 98 Mechanical Ventilator 55 01/06/17 16:57 78 16 55 General Appearance: no apparent distress, alert, on vent Neck: supple Cardiovascular: irregularly irregular, other Respiratory/Chest: lungs clear Abdomen: normal bowel sounds, non tender, soft Extremities: moderate edema Intake and Output 01/06/17 01/07/17 18:59 06:59 Intake Total 1760.894 ml 1894.288 ml Output Total 1100 ml 820 ml Balance 660.894 ml 1074.288 ml IV Total 1680.894 ml 1894.288 ml Tube Feeding 0 ml 0 ml Other 80 ml Output Urine Total 1100 ml 820 ml # Bowel Movements 2 Laboratory Tests Test 01/06/17 22:45 01/07/17 06:00 01/07/17 08:30 01/07/17 15:15 Activated Partial Thromboplast Time 44 SEC (23-33) H > 150 SEC (23-33) *H Pending White Blood Count 16.5 K/UL (4.8-10.8) H Red Blood Count 2.69 M/UL (4.20-5.40) L Hemoglobin 8.2 G/DL (12.0-16.0) L Hematocrit 26.1 % (37.0-47.0) L Mean Corpuscular Volume 97 FL (80-99) Mean Corpuscular Hemoglobin 30.6 PG (27.0-31.0) Mean Corpuscular Hemoglobin Concent 31.5 G/DL (32.0-36.0) L Red Cell Distribution Width 15.9 % (11.6-14.8) H Platelet Count 282 K/UL (150-450) Mean Platelet Volume 9.2 FL (6.5-10.1) Neutrophils (%) (Auto) % (45.0-75.0) Lymphocytes (%) (Auto) % (20.0-45.0) Monocytes (%) (Auto) % (1.0-10.0) Eosinophils (%) (Auto) % (0.0-3.0) Basophils (%) (Auto) % (0.0-2.0) Differential Total Cells Counted 100 Neutrophils % (Manual) 94 % (45-75) H Lymphocytes % (Manual) 2 % (20-45) L Monocytes % (Manual) 4 % (1-10) Eosinophils % (Manual) 0 % (0-3) Basophils % (Manual) 0 % (0-2) Band Neutrophils 0 % (0-8) Platelet Estimate Adequate Platelet Morphology Normal Hypochromasia 1+ Anisocytosis 1+ Sodium Level 140 mEQ/L (135-145) Potassium Level 3.0 mEQ/L (3.4-4.9) L Chloride Level 95 mEQ/L (98-107) L Carbon Dioxide Level 33 mEQ/L (20-30) H Anion Gap 12 (5-15) Blood Urea Nitrogen 78 mg/dL (7-23) H Creatinine 1.3 mg/dL (0.5-0.9) H Estimat Glomerular Filtration Rate 40.5 mL/min (>60) Glucose Level 159 mg/dL (74-106) H Uric Acid 11.5 mg/dL (3.0-7.5) H Calcium Level 7.8 mg/dL (8.6-10.2) L Phosphorus Level 5.7 mg/dL (2.5-4.8) H Magnesium Level 2.4 mg/dL (1.7-2.5) Total Bilirubin 0.7 mg/dL (0.0-1.2) Aspartate Amino Transf (AST/SGOT) 18 U/L (5-40) Alanine Aminotransferase (ALT/SGPT) 5 U/L (3-33) Alkaline Phosphatase 109 U/L (35-104) H C-Reactive Protein, Quantitative 9.9 mg/dL (< 0.5) H Pro-B-Type Natriuretic Peptide 2351 pg/mL (0-125) H Total Protein 6.5 g/dL (6.6-8.7) L Albumin 2.1 g/dL (3.5-5.2) L Globulin 4.4 g/dL Albumin/Globulin Ratio 0.4 (1.0-2.7) L Arterial Blood pH 7.431 (7.350-7.450) Arterial Blood Partial Pressure CO2 54.1 mmHg (35.0-45.0) H Arterial Blood Partial Pressure O2 89.4 mmHg (75.0-100.0) Arterial Blood HCO3 35.2 mmol/L (22.0-26.0) H Arterial Blood Oxygen Saturation 95.5 % (92.0-98.0) Arterial Blood Base Excess 9.3 Ok Test Positive ANNE RAM January 07, 2017 16:36
[2017-01-07] MEDS: DOPamine 400mg/250ml 250 ML IV SCH (17:45)
[2017-01-08] VITALS (24 sets, daily range): BP systolic 121–171; BP diastolic 39–71
[2017-01-08] MEDS: Meropenem 1gm/NS 110ml IVPB SCH ×4 (02:53→13:27)
[2017-01-08] MEDS: Metoclopramide 10mg/2ml Inj IVP SCH ×3 (05:50→18:27)
[2017-01-08] MEDS: Amoxicillin 250mg/5ml susp GT SCH ×3 (05:50→22:27)
[2017-01-08] MEDS: NovoLOG Insulin Flexpen SUBQ SCH ×3 (05:52→18:30)
[2017-01-08 06:18] LABS: MEAN CORPUSCULAR HEMOGLOBIN 30.3 PG (27.0-31.0); MEAN CORPUSCULAR HGB CONC 31.6 G/DL (32.0-36.0); MEAN CORPUSCULAR VOLUME 96 FL (80-99); MEAN PLATELET VOLUME 9.2 FL (6.5-10.1); PLATELET COUNT 334 K/UL (150-450); RED BLOOD COUNT 2.35 M/UL (4.20-5.40); RED CELL DISTRIBUTION WIDTH 15.9 % (11.6-14.8); WHITE BLOOD COUNT 21.5 K/UL (4.8-10.8)
[2017-01-08 06:32] LABS: AMYLASE 123 U/L (10-110); LIPASE 92 U/L (< 60)
[2017-01-08 06:36] LABS: ALBUMIN/GLOBULIN RATIO 0.4 (1.0-2.7); CALCIUM 7.5 mg/dL (8.6-10.2); GLOMERULAR FILTRATION RATE 54.8 mL/min (>60); MAGNESIUM 2.4 mg/dL (1.7-2.5); POTASSIUM 3.3 mEQ/L (3.4-4.9); TOTAL PROTEIN 5.9 g/dL (6.6-8.7)
[2017-01-08] MEDS: Heparin 25,000u/D5W 500ml 500 ML IV SCH ×2 (06:58→10:10)
[2017-01-08] MEDS: Hydrocortisone 100mg Inj IV SCH ×2 (08:19→15:55)
[2017-01-08] MEDS: Pantoprazole Inj IVP SCH ×2 (08:20→22:21)
[2017-01-08] MEDS: Renvela 800mg Pkt NG SCH ×3 (08:20→18:27)
[2017-01-08 08:34] LABS: LYMPHOCYTES % (MANUAL) 4 % (20-45); NEUTROPHILS % (MANUAL) 85 % (45-75); TOTAL CELLS COUNTED 100
[2017-01-08 08:35] LABS: ANISOCYTOSIS 1+; BAND NEUTROPHILS % (MANUAL) 0 % (0-8); BASOPHILS % (MANUAL) 0 % (0-2); EOSINOPHILS % (MANUAL) 0 % (0-3); HYPOCHROMASIA 3+; PLATELET ESTIMATE ADEQUATE; PLATELET MORPHOLOGY NORMAL
[2017-01-08 08:48] LABS: ABG ALLEN TEST POSITIVE; ABG BASE EXCESS 11.3
--- NOTE | 2017-01-08 10:43 | Pulmonolgy Critical Care Note ---
Critical Care - Asmt/Plan Problems: (1) Respiratory failure requiring intubation (2) Sepsis (3) Pancreatitis (4) ATN (acute tubular necrosis) (5) Atrial fibrillation Respiratory: monitor respiratory rate, adjust FIO2, CXR Cardiac: continue to monitor HR/BP Renal: F/U I&O, keep IV fluid, check electrolytes, other - K supplement Infectious Disease: check cultures Gastrointestinal: continue feedings/current rate, other - on Nephro 30 cc.hour Endocrine: monitor blood sugar, check HgA1C, continue sliding scale insulin Hematologic: transfuse if hgb<8.5, other - prbc times one Neurologic: PRN Ativan, keep patient comfortable Affect: PRN ativan Prophylaxis: Protonix, Heparin Time Spent (Minutes): 40 Notes 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, cardio, 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 with: nurses, consultants, caseworker protective servicesit consulting manager - Objective Last 24 Hour Vital Signs Date Time Temp Pulse Resp B/P Pulse Ox O2 Delivery O2 Flow Rate FiO2 01/08/17 09:28 118 20 50 01/08/17 09:00 113 18 151/49 100 Mechanical Ventilator 50 01/08/17 08:00 50 01/08/17 08:00 115 18 151/62 100 Mechanical Ventilator 50 01/08/17 08:00 101 01/08/17 07:29 127 22 50 01/08/17 07:00 98.2 114 18 150/51 99 Mechanical Ventilator 50 01/08/17 06:00 104 18 167/54 99 Mechanical Ventilator 50 01/08/17 05:15 113 18 50 01/08/17 05:00 96 17 163/58 99 Mechanical Ventilator 50 01/08/17 04:00 50 01/08/17 04:00 98.5 99 19 169/52 99 Mechanical Ventilator 50 01/08/17 04:00 99 01/08/17 03:30 90 15 50 01/08/17 03:00 96 19 171/71 99 Mechanical Ventilator 50 01/08/17 02:00 92 17 160/57 99 Mechanical Ventilator 50 01/08/17 01:30 102 17 50 01/08/17 01:00 90 17 165/69 98 Mechanical Ventilator 50 01/08/17 00:00 98.6 89 17 160/58 98 Mechanical Ventilator 50 01/08/17 00:00 50 01/08/17 00:00 89 01/07/17 23:30 83 16 50 01/07/17 23:00 81 17 151/68 99 Mechanical Ventilator 50 01/07/17 22:00 87 15 161/81 99 Mechanical Ventilator 50 01/07/17 21:11 105 15 50 01/07/17 21:00 89 14 137/67 99 Mechanical Ventilator 50 01/07/17 20:00 98.5 94 16 162/82 98 Mechanical Ventilator 50 01/07/17 20:00 93 01/07/17 20:00 50 01/07/17 19:30 101 17 50 01/07/17 19:00 94 14 158/72 99 Mechanical Ventilator 50 01/07/17 18:00 99 26 159/70 99 Mechanical Ventilator 50 01/07/17 17:45 173/66 01/07/17 17:00 85 16 163/66 97 Mechanical Ventilator 50 01/07/17 16:45 114 15 50 01/07/17 16:00 50 01/07/17 16:00 98.0 82 16 152/75 98 Mechanical Ventilator 50 01/07/17 16:00 86 01/07/17 15:00 87 15 134/53 98 Mechanical Ventilator 50 01/07/17 14:35 123 15 50 01/07/17 14:00 86 18 159/64 97 Mechanical Ventilator 50 01/07/17 13:00 90 18 166/67 98 Mechanical Ventilator 50 01/07/17 12:58 88 15 50 01/07/17 12:35 98.4 01/07/17 12:00 89 01/07/17 12:00 50 01/07/17 12:00 98.2 90 18 166/67 98 Mechanical Ventilator 50 01/07/17 11:07 102 18 50 01/07/17 11:00 95 18 155/74 97 Mechanical Ventilator 55 Status: awake Condition: critical HEENT: atraumatic, normocephalic Neck: full ROM Lungs: clear Heart: HR/BP stable Abdomen: soft, non-tender Extremities: edema Decubiti: location Accucheck: 191 Critical Care - Subjective ROS Limited/Unobtainable: Yes ICU Day: 22 Intubation Day: s/p trach Condition: critical FI02: 50 Vent Support Breath Rate: 15 Vent Support Mode: AC Vent Tidal Volume: 500 Sputum Amount: Small PEEP: 7.0 PIP: 35 Drips: heparin Tube Feeding Amount: 35 I&O: Intake and Output 01/07/17 01/08/17 19:00 07:00 Intake Total 1134.1 ml 924.1 ml Output Total 1040 ml 1170 ml Balance 94.1 ml -245.9 ml Free Water 60 ml IV Total 1059.1 ml 529.1 ml Tube Feeding 15 ml 335 ml Other 60 ml Output Urine Total 1040 ml 1170 ml # Bowel Movements 4 4 CXR: pulmonary edeam ET Position: 22 Labs: Laboratory Tests Test 01/07/17 15:15 01/08/17 05:10 01/08/17 08:25 Activated Partial Thromboplast Time 91 SEC (23-33) H 99 SEC (23-33) H White Blood Count 21.5 K/UL (4.8-10.8) H Red Blood Count 2.35 M/UL (4.20-5.40) L Hemoglobin 7.1 G/DL (12.0-16.0) L Hematocrit 22.5 % (37.0-47.0) L Mean Corpuscular Volume 96 FL (80-99) Mean Corpuscular Hemoglobin 30.3 PG (27.0-31.0) Mean Corpuscular Hemoglobin Concent 31.6 G/DL (32.0-36.0) L Red Cell Distribution Width 15.9 % (11.6-14.8) H Platelet Count 334 K/UL (150-450) Mean Platelet Volume 9.2 FL (6.5-10.1) Neutrophils (%) (Auto) % (45.0-75.0) Lymphocytes (%) (Auto) % (20.0-45.0) Monocytes (%) (Auto) % (1.0-10.0) Eosinophils (%) (Auto) % (0.0-3.0) Basophils (%) (Auto) % (0.0-2.0) Differential Total Cells Counted 100 Neutrophils % (Manual) 85 % (45-75) H Lymphocytes % (Manual) 4 % (20-45) L Monocytes % (Manual) 11 % (1-10) H Eosinophils % (Manual) 0 % (0-3) Basophils % (Manual) 0 % (0-2) Band Neutrophils 0 % (0-8) Platelet Estimate Adequate Platelet Morphology Normal Hypochromasia 3+ Anisocytosis 1+ Sodium Level 143 mEQ/L (135-145) Potassium Level 3.3 mEQ/L (3.4-4.9) L Chloride Level 99 mEQ/L (98-107) Carbon Dioxide Level 34 mEQ/L (20-30) H Anion Gap 10 (5-15) Blood Urea Nitrogen 75 mg/dL (7-23) H Creatinine 1.0 mg/dL (0.5-0.9) H Estimat Glomerular Filtration Rate 54.8 mL/min (>60) Glucose Level 188 mg/dL (74-106) H Calcium Level 7.5 mg/dL (8.6-10.2) L Phosphorus Level 4.0 mg/dL (2.5-4.8) Magnesium Level 2.4 mg/dL (1.7-2.5) Total Bilirubin 0.6 mg/dL (0.0-1.2) Aspartate Amino Transf (AST/SGOT) 17 U/L (5-40) Alanine Aminotransferase (ALT/SGPT) 5 U/L (3-33) Alkaline Phosphatase 101 U/L (35-104) Total Protein 5.9 g/dL (6.6-8.7) L Albumin 1.9 g/dL (3.5-5.2) L Globulin 4.0 g/dL Albumin/Globulin Ratio 0.4 (1.0-2.7) L Amylase Level 123 U/L (10-110) H Lipase 92 U/L (< 60) H Arterial Blood pH 7.497 (7.350-7.450) Arterial Blood Partial Pressure CO2 47.0 mmHg (35.0-45.0) H Arterial Blood Partial Pressure O2 98.6 mmHg (75.0-100.0) Arterial Blood HCO3 35.6 mmol/L (22.0-26.0) H Arterial Blood Oxygen Saturation 97.3 % (92.0-98.0) Arterial Blood Base Excess 11.3 Ok Test Positive TONY BRIDGES January 08, 2017 10:43
--- NOTE | 2017-01-08 11:17 | Infectious Diseases Prog Note ---
Assessment/Plan Assessment/Plan ASSESSMENT: Fever, SP leukocytosis overall improving ( probable due to GI bleed, pt has tarry stool ) Pancreatitis improving CT: Findings compatible with marked worsening of acute pancreatitis MRCP : Cholelithiasis. There is also a calculus within the duct adjacent to the gallbladder Pancreatic Enzymes improving CT of Abd : reviewed cholelithiasis : US of liver : Incidental finding of cholelithiasis and mild gallbladder wall thickening positive sonographic Diaz's sign LFT : Nl UTI : Mandy SCx : Mandy ( colonizer ) SP PEG 01/02 VDRF: SP trach 01/01 Cxray : Increase in bilateral congestive changes with persistent small right , probable new left pleural effusions ARF SP aortic stenosis mitral stenosis status post mitral valve replacement AFib Pulmonary hypertension PLAN: - cont on IV Merrem d# 6 / 14 , , oral Amoxi d# 2 / 7 ( 01/07 SP Zyvox d#5 and Flagyl d# 4 ) ( 12/28 SP Diflucan d# 10 ) ( 12/24 SP Merrem d# 14 /14 ) - monitor CBC, temperatures, - monitor LFT - GI f/u - Sx is following for possible Cholecystectomy later - VDRF - Dopamine ( renal dose ) - monitor Cx ( Bl ) - PRBC transfusion PRN Subjective Constitutional: Denies: anorexia, chills, drenching sweats, fatigue, fever, no symptoms, other Allergies: Coded Allergies: No Known Allergies (Unverified , 09/28/14) Subjective on Vent Objective Vital Signs Last 24 Hour Vital Signs Date Time Temp Pulse Resp B/P Pulse Ox O2 Delivery O2 Flow Rate FiO2 01/08/17 10:00 109 18 170/48 100 Mechanical Ventilator 50 01/08/17 09:28 118 20 50 01/08/17 09:00 113 18 151/49 100 Mechanical Ventilator 50 01/08/17 08:00 50 01/08/17 08:00 115 18 151/62 100 Mechanical Ventilator 50 01/08/17 08:00 101 01/08/17 07:29 127 22 50 01/08/17 07:00 98.2 114 18 150/51 99 Mechanical Ventilator 50 01/08/17 06:00 104 18 167/54 99 Mechanical Ventilator 50 01/08/17 05:15 113 18 50 01/08/17 05:00 96 17 163/58 99 Mechanical Ventilator 50 01/08/17 04:00 50 01/08/17 04:00 98.5 99 19 169/52 99 Mechanical Ventilator 50 01/08/17 04:00 99 01/08/17 03:30 90 15 50 01/08/17 03:00 96 19 171/71 99 Mechanical Ventilator 50 01/08/17 02:00 92 17 160/57 99 Mechanical Ventilator 50 01/08/17 01:30 102 17 50 01/08/17 01:00 90 17 165/69 98 Mechanical Ventilator 50 01/08/17 00:00 98.6 89 17 160/58 98 Mechanical Ventilator 50 01/08/17 00:00 50 01/08/17 00:00 89 01/07/17 23:30 83 16 50 01/07/17 23:00 81 17 151/68 99 Mechanical Ventilator 50 01/07/17 22:00 87 15 161/81 99 Mechanical Ventilator 50 01/07/17 21:11 105 15 50 01/07/17 21:00 89 14 137/67 99 Mechanical Ventilator 50 01/07/17 20:00 98.5 94 16 162/82 98 Mechanical Ventilator 50 01/07/17 20:00 93 01/07/17 20:00 50 01/07/17 19:30 101 17 50 01/07/17 19:00 94 14 158/72 99 Mechanical Ventilator 50 01/07/17 18:00 99 26 159/70 99 Mechanical Ventilator 50 01/07/17 17:45 173/66 01/07/17 17:00 85 16 163/66 97 Mechanical Ventilator 50 01/07/17 16:45 114 15 50 01/07/17 16:00 50 01/07/17 16:00 98.0 82 16 152/75 98 Mechanical Ventilator 50 01/07/17 16:00 86 01/07/17 15:00 87 15 134/53 98 Mechanical Ventilator 50 01/07/17 14:35 123 15 50 01/07/17 14:00 86 18 159/64 97 Mechanical Ventilator 50 01/07/17 13:00 90 18 166/67 98 Mechanical Ventilator 50 01/07/17 12:58 88 15 50 01/07/17 12:35 98.4 01/07/17 12:00 89 01/07/17 12:00 50 01/07/17 12:00 98.2 90 18 166/67 98 Mechanical Ventilator 50 Height (Feet): 5 Height (Inches): 1.00 Weight (Pounds): 145 HEENT: anicteric Respiratory/Chest: no respiratory distress Cardiovascular: regularly irregular Abdomen: no organomegaly Laboratory Tests Test 01/07/17 15:15 01/08/17 05:10 01/08/17 08:25 Activated Partial Thromboplast Time 91 SEC (23-33) H 99 SEC (23-33) H White Blood Count 21.5 K/UL (4.8-10.8) H Red Blood Count 2.35 M/UL (4.20-5.40) L Hemoglobin 7.1 G/DL (12.0-16.0) L Hematocrit 22.5 % (37.0-47.0) L Mean Corpuscular Volume 96 FL (80-99) Mean Corpuscular Hemoglobin 30.3 PG (27.0-31.0) Mean Corpuscular Hemoglobin Concent 31.6 G/DL (32.0-36.0) L Red Cell Distribution Width 15.9 % (11.6-14.8) H Platelet Count 334 K/UL (150-450) Mean Platelet Volume 9.2 FL (6.5-10.1) Neutrophils (%) (Auto) % (45.0-75.0) Lymphocytes (%) (Auto) % (20.0-45.0) Monocytes (%) (Auto) % (1.0-10.0) Eosinophils (%) (Auto) % (0.0-3.0) Basophils (%) (Auto) % (0.0-2.0) Differential Total Cells Counted 100 Neutrophils % (Manual) 85 % (45-75) H Lymphocytes % (Manual) 4 % (20-45) L Monocytes % (Manual) 11 % (1-10) H Eosinophils % (Manual) 0 % (0-3) Basophils % (Manual) 0 % (0-2) Band Neutrophils 0 % (0-8) Platelet Estimate Adequate Platelet Morphology Normal Hypochromasia 3+ Anisocytosis 1+ Sodium Level 143 mEQ/L (135-145) Potassium Level 3.3 mEQ/L (3.4-4.9) L Chloride Level 99 mEQ/L (98-107) Carbon Dioxide Level 34 mEQ/L (20-30) H Anion Gap 10 (5-15) Blood Urea Nitrogen 75 mg/dL (7-23) H Creatinine 1.0 mg/dL (0.5-0.9) H Estimat Glomerular Filtration Rate 54.8 mL/min (>60) Glucose Level 188 mg/dL (74-106) H Calcium Level 7.5 mg/dL (8.6-10.2) L Phosphorus Level 4.0 mg/dL (2.5-4.8) Magnesium Level 2.4 mg/dL (1.7-2.5) Total Bilirubin 0.6 mg/dL (0.0-1.2) Aspartate Amino Transf (AST/SGOT) 17 U/L (5-40) Alanine Aminotransferase (ALT/SGPT) 5 U/L (3-33) Alkaline Phosphatase 101 U/L (35-104) Total Protein 5.9 g/dL (6.6-8.7) L Albumin 1.9 g/dL (3.5-5.2) L Globulin 4.0 g/dL Albumin/Globulin Ratio 0.4 (1.0-2.7) L Amylase Level 123 U/L (10-110) H Lipase 92 U/L (< 60) H Arterial Blood pH 7.497 (7.350-7.450) Arterial Blood Partial Pressure CO2 47.0 mmHg (35.0-45.0) H Arterial Blood Partial Pressure O2 98.6 mmHg (75.0-100.0) Arterial Blood HCO3 35.6 mmol/L (22.0-26.0) H Arterial Blood Oxygen Saturation 97.3 % (92.0-98.0) Arterial Blood Base Excess 11.3 Ok Test Positive Current Medications Medications (Trade) Dose Ordered Sig/Lisbeth Route PRN Reason Start Time Stop Time Status Last Admin Dose Admin Acetaminophen (Tylenol) 650 mg Q4H PRN ORAL fever 12/17/16 08:00 01/16/17 07:59 01/05/17 07:36 Albuterol/ Ipratropium (DuoNeb 0.5-3(2.5)mg/3ml) 3 ml Q4HRT PRN HHN sob 01/05/17 07:30 01/10/17 07:29 Allopurinol (Allopurinol) 300 mg DAILY GT 01/07/17 16:30 02/06/17 16:29 01/08/17 08:20 Amoxicillin (Amoxil) 500 mg EVERY 8 HOURS GT 01/07/17 15:00 01/14/17 14:59 01/08/17 05:50 Dextrose (Dextrose 50%) STAT PRN IV Hypoglycemia 12/17/16 07:30 01/16/17 07:29 Dopamine HCl/ Dextrose (DOPamine 400mg/ 250ml) 250 ml @ 0 mls/hr Q24H IV 01/01/17 18:00 01/31/17 17:59 01/06/17 11:24 Heparin Sodium/ Dextrose 500 ml @ 30.453 mls/ hr adjust per protocol IV 01/08/17 06:49 02/06/17 08:14 01/08/17 10:10 Hydrocortisone 1 supp 1 supp BIDPRN PRN RECTAL Anal discomfort/swelling/bleed 01/01/17 17:00 01/31/17 16:59 Hydrocortisone 50 mg 50 mg Q8HR@0000,0800,1600 IV 01/07/17 16:30 02/06/17 16:29 01/08/17 08:19 Insulin Aspart (NovoLOG) No Dose Q6HR SUBQ 12/17/16 12:00 01/16/17 11:59 01/08/17 05:52 Lorazepam (Ativan 2mg/ml 1ml) 1 mg Q4H PRN IV For Anxiety 01/05/17 10:00 01/12/17 09:59 01/07/17 05:27 Meropenem/Sodium Chloride (Merrem/Sodium Chloride) 110 ml @ 220 mls/hr Q12HR@0200,1400 IVPB 01/07/17 14:00 01/12/17 13:59 01/08/17 02:53 Metoclopramide HCl (Reglan) 10 mg Q6H IVP 01/06/17 18:00 02/05/17 17:59 01/08/17 05:50 Morphine Sulfate (Morphine Sulfate) 4 mg Q4H PRN IVP PAIN 4-10 01/07/17 11:45 01/14/17 11:44 01/07/17 12:01 Ondansetron HCl (Zofran) 4 mg EVERY 4 HOURS PRN IVP Nausea & Vomiting 01/03/17 07:00 02/02/17 06:59 01/07/17 18:31 Pantoprazole 40 mg 40 mg EVERY 12 HOURS IVP 01/06/17 21:00 02/05/17 20:59 01/08/17 08:20 Potassium Chloride (KCl 20mEq/100ml Premix) 100 ml @ 50 mls/hr Q2H IVPB 01/08/17 08:00 01/08/17 11:59 01/08/17 10:08 Sevelamer Carbonate (Renvela) 1,600 mg THREE TIMES A DAY NG 01/05/17 10:00 02/04/17 09:59 01/08/17 08:20 Temazepam (Restoril) 15 mg HSPRN PRN GT Insomnia 01/03/17 21:00 01/10/17 20:59 01/04/17 21:43 OSCAR ANDERSON M.D. January 08, 2017 11:17
[2017-01-08] MEDS: Morphine Sulfate 4mg/ml Inj IVP PRN (12:18)
--- NOTE | 2017-01-08 12:46 | Diagnostic Imaging Report ---
Indication: Dyspnea Comparison: 01/07/17 A single view chest radiograph was obtained. Findings: Patchy alveolar space edema demonstrated bilaterally unchanged. Cardiomegaly is again noted. Metallic artifact, sternotomy, tracheostomy are noted once again. Impression: Suspected pulmonary edema without significant change
--- NOTE | 2017-01-08 13:13 | General Progress Note ---
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 Pulmonary HTN HypoAlbuminemia ARDS Plan: add allopurinol and K supplement Decrease IV change reglan to IV Hydrocortisone IV Fluid challenge Keep bp above 100 syst by adjusting BP meds Optimize cardiac status K supplement as needed Adjust pulmonary status- Per GI / Surgery Avoid nephrotoxics monitor renal parameters Subjective ROS Limited/Unobtainable: Yes Allergies: Coded Allergies: No Known Allergies (Unverified , 09/28/14) Objective Last 24 Hour Vital Signs Date Time Temp Pulse Resp B/P Pulse Ox O2 Delivery O2 Flow Rate FiO2 01/08/17 13:00 109 17 132/48 99 Mechanical Ventilator 50 01/08/17 12:00 107 01/08/17 12:00 98.3 108 18 138/50 99 Mechanical Ventilator 50 01/08/17 12:00 50 01/08/17 11:29 141 25 50 01/08/17 11:00 112 18 141/53 99 Mechanical Ventilator 50 01/08/17 10:00 109 18 170/48 100 Mechanical Ventilator 50 01/08/17 09:28 118 20 50 01/08/17 09:00 113 18 151/49 100 Mechanical Ventilator 50 01/08/17 08:00 50 01/08/17 08:00 115 18 151/62 100 Mechanical Ventilator 50 01/08/17 08:00 101 01/08/17 07:29 127 22 50 01/08/17 07:00 98.2 114 18 150/51 99 Mechanical Ventilator 50 01/08/17 06:00 104 18 167/54 99 Mechanical Ventilator 50 01/08/17 05:15 113 18 50 01/08/17 05:00 96 17 163/58 99 Mechanical Ventilator 50 01/08/17 04:00 50 01/08/17 04:00 98.5 99 19 169/52 99 Mechanical Ventilator 50 01/08/17 04:00 99 01/08/17 03:30 90 15 50 01/08/17 03:00 96 19 171/71 99 Mechanical Ventilator 50 01/08/17 02:00 92 17 160/57 99 Mechanical Ventilator 50 01/08/17 01:30 102 17 50 01/08/17 01:00 90 17 165/69 98 Mechanical Ventilator 50 01/08/17 00:00 98.6 89 17 160/58 98 Mechanical Ventilator 50 01/08/17 00:00 50 01/08/17 00:00 89 01/07/17 23:30 83 16 50 01/07/17 23:00 81 17 151/68 99 Mechanical Ventilator 50 01/07/17 22:00 87 15 161/81 99 Mechanical Ventilator 50 01/07/17 21:11 105 15 50 01/07/17 21:00 89 14 137/67 99 Mechanical Ventilator 50 01/07/17 20:00 98.5 94 16 162/82 98 Mechanical Ventilator 50 01/07/17 20:00 93 01/07/17 20:00 50 01/07/17 19:30 101 17 50 01/07/17 19:00 94 14 158/72 99 Mechanical Ventilator 50 01/07/17 18:00 99 26 159/70 99 Mechanical Ventilator 50 01/07/17 17:45 173/66 01/07/17 17:00 85 16 163/66 97 Mechanical Ventilator 50 01/07/17 16:45 114 15 50 01/07/17 16:00 50 01/07/17 16:00 98.0 82 16 152/75 98 Mechanical Ventilator 50 01/07/17 16:00 86 01/07/17 15:00 87 15 134/53 98 Mechanical Ventilator 50 01/07/17 14:35 123 15 50 01/07/17 14:00 86 18 159/64 97 Mechanical Ventilator 50 Intake and Output 01/07/17 01/08/17 19:00 07:00 Intake Total 1134.1 ml 924.1 ml Output Total 1040 ml 1170 ml Balance 94.1 ml -245.9 ml Free Water 60 ml IV Total 1059.1 ml 529.1 ml Tube Feeding 15 ml 335 ml Other 60 ml Output Urine Total 1040 ml 1170 ml # Bowel Movements 4 4 Laboratory Tests 01/07/17 15:15: Activated Partial Thromboplast Time 91H 01/08/17 05:10: Activated Partial Thromboplast Time 99H, White Blood Count 21.5H, Red Blood Count 2.35L, Hemoglobin 7.1L, Hematocrit 22.5L, Mean Corpuscular Volume 96, Mean Corpuscular Hemoglobin 30.3, Mean Corpuscular Hemoglobin Concent 31.6L, Red Cell Distribution Width 15.9H, Platelet Count 334, Mean Platelet Volume 9.2 , Neutrophils (%) (Auto) , Lymphocytes (%) (Auto) , Monocytes (%) (Auto) , Eosinophils (%) (Auto) , Basophils (%) (Auto) , Differential Total Cells Counted 100, Neutrophils % (Manual) 85H, Lymphocytes % (Manual) 4L, Monocytes % (Manual) 11H, Eosinophils % (Manual) 0, Basophils % (Manual) 0, Band Neutrophils 0, Platelet Estimate Adequate, Platelet Morphology Normal, Hypochromasia 3+, Anisocytosis 1+, Sodium Level 143, Potassium Level 3.3L, Chloride Level 99, Carbon Dioxide Level 34H, Anion Gap 10, Blood Urea Nitrogen 75H, Creatinine 1.0H, Estimat Glomerular Filtration Rate 54.8, Glucose Level 188H, Calcium Level 7.5L, Phosphorus Level 4.0, Magnesium Level 2.4, Total Bilirubin 0.6, Aspartate Amino Transf (AST/SGOT) 17, Alanine Aminotransferase ( ALT/SGPT) 5, Alkaline Phosphatase 101, Total Protein 5.9L, Albumin 1.9L, Globulin 4.0, Albumin/Globulin Ratio 0.4L, Amylase Level 123H, Lipase 92H 01/08/17 08:25: Arterial Blood pH 7.497H, Arterial Blood Partial Pressure CO2 47.0H, Arterial Blood Partial Pressure O2 98.6, Arterial Blood HCO3 35.6H, Arterial Blood Oxygen Saturation 97.3, Arterial Blood Base Excess 11.3, Ok Test Positive Height (Feet): 5 Height (Inches): 1.00 Weight (Pounds): 145 General Appearance: no apparent distress Cardiovascular: tachycardia Respiratory/Chest: decreased breath sounds Abdomen: distended Objective other PE not changed KAMINI SNOW January 08, 2017 13:13
[2017-01-08] MEDS ORDERED: NS 275ml ONE (14:00)
--- NOTE | 2017-01-08 15:42 | GI Progress Note ---
Assessment/Plan Problems: (1) Pancreatitis ICD Codes: K85.9 - Acute pancreatitis, unspecified SNOMED: 37666488 Qualifiers: Qualified Codes: K85.10 - Biliary acute pancreatitis without necrosis or infection (2) Abdominal pain ICD Codes: R10.9 - Unspecified abdominal pain SNOMED: 72738177, 241553129 (3) Iron deficiency anemia ICD Codes: D50.9 - Iron deficiency anemia, unspecified SNOMED: 94249406 (4) Colon polyp ICD Codes: K63.5 - Polyp of colon SNOMED: 75663130 Status: unchanged Status Narrative Discussed with Dr. Gipson. Assessment/Plan Pancreatitis - abdomen still very distended cholelithiasis, no e/o choledocholithiasis rising WBC S/P trach APCT reviewed>> New finding of a 6 x 4.4 x 4.9 cm masslike lesion in the left paracolic gutter, which compresses and splays but does not appear to obstruct an adjacent small bowel loop, see full report. 01/04/17 cdiff negative ordered OB stool monitor H&H, transfuse prn GTF's per dietary, reglan ATC GT site care >> GT site bleed, pt on heparin. >> see surgical note. ppi BID abx monitor amylase/lipase follow labs supportive care colonoscopy when stable SUMMARY OF FINDINGS: Status post successful PEG placement. RECOMMENDATIONS: 1. Abdominal binder. 2. Elevate the head of the bed at all times. 3. G-tube flush. 4. G-tube care. The patient received a dose of antibiotics prior to this procedure. Subjective Subjective limited Objective Last 24 Hour Vital Signs Date Time Temp Pulse Resp B/P Pulse Ox O2 Delivery O2 Flow Rate FiO2 01/08/17 14:00 104 18 121/55 100 Mechanical Ventilator 50 01/08/17 13:20 103 20 45 01/08/17 13:00 109 17 132/48 99 Mechanical Ventilator 50 01/08/17 12:00 107 01/08/17 12:00 98.3 108 18 138/50 99 Mechanical Ventilator 50 01/08/17 12:00 50 01/08/17 11:29 141 25 50 01/08/17 11:00 112 18 141/53 99 Mechanical Ventilator 50 01/08/17 10:00 109 18 170/48 100 Mechanical Ventilator 50 01/08/17 09:28 118 20 50 5/2/17 09:00 113 18 151/49 100 Mechanical Ventilator 50 01/08/17 08:00 50 01/08/17 08:00 115 18 151/62 100 Mechanical Ventilator 50 01/08/17 08:00 101 01/08/17 07:29 127 22 50 01/08/17 07:00 98.2 114 18 150/51 99 Mechanical Ventilator 50 01/08/17 06:00 104 18 167/54 99 Mechanical Ventilator 50 01/08/17 05:15 113 18 50 01/08/17 05:00 96 17 163/58 99 Mechanical Ventilator 50 01/08/17 04:00 50 01/08/17 04:00 98.5 99 19 169/52 99 Mechanical Ventilator 50 01/08/17 04:00 99 01/08/17 03:30 90 15 50 01/08/17 03:00 96 19 171/71 99 Mechanical Ventilator 50 01/08/17 02:00 92 17 160/57 99 Mechanical Ventilator 50 01/08/17 01:30 102 17 50 01/08/17 01:00 90 17 165/69 98 Mechanical Ventilator 50 01/08/17 00:00 98.6 89 17 160/58 98 Mechanical Ventilator 50 01/08/17 00:00 50 01/08/17 00:00 89 01/07/17 23:30 83 16 50 01/07/17 23:00 81 17 151/68 99 Mechanical Ventilator 50 01/07/17 22:00 87 15 161/81 99 Mechanical Ventilator 50 01/07/17 21:11 105 15 50 01/07/17 21:00 89 14 137/67 99 Mechanical Ventilator 50 01/07/17 20:00 98.5 94 16 162/82 98 Mechanical Ventilator 50 01/07/17 20:00 93 01/07/17 20:00 50 01/07/17 19:30 101 17 50 01/07/17 19:00 94 14 158/72 99 Mechanical Ventilator 50 01/07/17 18:00 99 26 159/70 99 Mechanical Ventilator 50 01/07/17 17:45 173/66 01/07/17 17:00 85 16 163/66 97 Mechanical Ventilator 50 01/07/17 16:45 114 15 50 01/07/17 16:00 50 01/07/17 16:00 98.0 82 16 152/75 98 Mechanical Ventilator 50 01/07/17 16:00 86 Intake and Output 01/07/17 01/08/17 19:00 07:00 Intake Total 1134.1 ml 924.1 ml Output Total 1040 ml 1170 ml Balance 94.1 ml -245.9 ml Free Water 60 ml IV Total 1059.1 ml 529.1 ml Tube Feeding 15 ml 335 ml Other 60 ml Output Urine Total 1040 ml 1170 ml # Bowel Movements 4 4 Laboratory Tests Test 01/08/17 05:10 01/08/17 08:25 01/08/17 13:40 White Blood Count 21.5 K/UL (4.8-10.8) H Red Blood Count 2.35 M/UL (4.20-5.40) L Hemoglobin 7.1 G/DL (12.0-16.0) L Hematocrit 22.5 % (37.0-47.0) L Mean Corpuscular Volume 96 FL (80-99) Mean Corpuscular Hemoglobin 30.3 PG (27.0-31.0) Mean Corpuscular Hemoglobin Concent 31.6 G/DL (32.0-36.0) L Red Cell Distribution Width 15.9 % (11.6-14.8) H Platelet Count 334 K/UL (150-450) Mean Platelet Volume 9.2 FL (6.5-10.1) Neutrophils (%) (Auto) % (45.0-75.0) Lymphocytes (%) (Auto) % (20.0-45.0) Monocytes (%) (Auto) % (1.0-10.0) Eosinophils (%) (Auto) % (0.0-3.0) Basophils (%) (Auto) % (0.0-2.0) Differential Total Cells Counted 100 Neutrophils % (Manual) 85 % (45-75) H Lymphocytes % (Manual) 4 % (20-45) L Monocytes % (Manual) 11 % (1-10) H Eosinophils % (Manual) 0 % (0-3) Basophils % (Manual) 0 % (0-2) Band Neutrophils 0 % (0-8) Platelet Estimate Adequate Platelet Morphology Normal Hypochromasia 3+ Anisocytosis 1+ Activated Partial Thromboplast Time 99 SEC (23-33) H 137 SEC (23-33) H Sodium Level 143 mEQ/L (135-145) Potassium Level 3.3 mEQ/L (3.4-4.9) L Chloride Level 99 mEQ/L (98-107) Carbon Dioxide Level 34 mEQ/L (20-30) H Anion Gap 10 (5-15) Blood Urea Nitrogen 75 mg/dL (7-23) H Creatinine 1.0 mg/dL (0.5-0.9) H Estimat Glomerular Filtration Rate 54.8 mL/min (>60) Glucose Level 188 mg/dL (74-106) H Calcium Level 7.5 mg/dL (8.6-10.2) L Phosphorus Level 4.0 mg/dL (2.5-4.8) Magnesium Level 2.4 mg/dL (1.7-2.5) Total Bilirubin 0.6 mg/dL (0.0-1.2) Aspartate Amino Transf (AST/SGOT) 17 U/L (5-40) Alanine Aminotransferase (ALT/SGPT) 5 U/L (3-33) Alkaline Phosphatase 101 U/L (35-104) Total Protein 5.9 g/dL (6.6-8.7) L Albumin 1.9 g/dL (3.5-5.2) L Globulin 4.0 g/dL Albumin/Globulin Ratio 0.4 (1.0-2.7) L Amylase Level 123 U/L (10-110) H Lipase 92 U/L (< 60) H Arterial Blood pH 7.497 (7.350-7.450) Arterial Blood Partial Pressure CO2 47.0 mmHg (35.0-45.0) H Arterial Blood Partial Pressure O2 98.6 mmHg (75.0-100.0) Arterial Blood HCO3 35.6 mmol/L (22.0-26.0) H Arterial Blood Oxygen Saturation 97.3 % (92.0-98.0) Arterial Blood Base Excess 11.3 Ok Test Positive Height (Feet): 5 Height (Inches): 1.00 Weight (Pounds): 145 General Appearance: no apparent distress Cardiovascular: normal rate Respiratory/Chest: no respiratory distress, other - mech vent Abdominal Exam: GT site - c/d/i Objective Service Date: 12/11/16 Procedure: MRI Abdomen no Contrast Indication: Abdominal pain, possible pancreatitis Findings: Multiple calcifications are seen within the gallbladder. There is a ductal structure cephalad to the gallbladder which contains a filling defect. This is probably the cystic duct, but could be an extrahepatic bile duct, and it is uncertain which of these is. The gallbladder wall is not thickened. The extrahepatic bile ducts are ectatic, with the common bile duct measuring up to 9 mm diameter , but no downstream filling defects are demonstrated. The common bile duct terminates abruptly at the level of the ampulla. The pancreatic duct is mildly ectatic, measuring 3-4 mm in diameter. No intraluminal filling defects are demonstrated. A 7 mm fluid signal lesion is seen within the uncinate process of the pancreas. This may actually be a duodenal diverticulum which is seen on the recent CT scan. There is apparent swelling of the pancreas and considerable free intraperitoneal fluid. No free intraperitoneal fluid presumably increased from the prior CT scan. There are dilated small bowel loops, likely indicating ileus. The liver is unremarkable. The adrenals and kidneys are unremarkable. There are bilateral small pleural effusions. The spleen is unremarkable. The heart is enlarged Impression: Cholelithiasis. There is also a calculus within the duct adjacent to the gallbladder which is probably the cystic duct but could be an extrahepatic bile duct. Extrahepatic and central intrahepatic biliary ductal mild dilatation. No definite downstream calculus or pancreatic head mass to account for this, however. Prominence and edema of the pancreas, better visualized on prior CT scan, consistent with acute pancreatitis, also previously described Ascites fluid, increased from the prior CT scan, likely secondary to the acute pancreatitis Dilated small bowel loops, new since prior CT study. Suspect representing ileus related to the pancreatitis Bilateral small pleural effusions Small cystic lesion within the as a process. Suspect that this is actually the duodenal diverticulum described on recent CT scan, but could represent a tiny pseudocyst or intraductal papillary mucinous neoplasm. Cardiomegaly Lulu Dominguez N.P. January 08, 2017 15:42
--- NOTE | 2017-01-08 15:44 | General Progress Note ---
Progress Note Progress Note Surgery: patient seen and examined at bedside. no acute events. doing okay. states she feels the same. just hungry and tired. bleeding from g tube site stopped. mild melena today. vitals and labs as reviewed in chart. recent CT reviewed. gallbladder still distended with calculi but lft's stable. No acute surgical intervention planned Trach and PEG functional Medical management as per primary. still with terrible acute severe pancreatitis and ards Rodrigo Andino January 08, 2017 15:44
[2017-01-08] MEDS ORDERED: Heparin 25,000u/D5W 500ml 500 ML IV SCH ×2 (16:30→23:32)
[2017-01-08] MEDS: DOPamine 400mg/250ml 250 ML IV SCH (18:27)
[2017-01-08 22:52] LABS: MEAN CORPUSCULAR HEMOGLOBIN 33.3 PG (27.0-31.0); MEAN CORPUSCULAR HGB CONC 34.6 G/DL (32.0-36.0); MEAN CORPUSCULAR VOLUME 96 FL (80-99); MEAN PLATELET VOLUME 7.8 FL (6.5-10.1); PLATELET COUNT 266 K/UL (150-450); RED BLOOD COUNT 1.84 M/UL (4.20-5.40); RED CELL DISTRIBUTION WIDTH 16.2 % (11.6-14.8)
[2017-01-08 22:58] LABS: WHITE BLOOD COUNT 26.1 K/UL (4.8-10.8)
[2017-01-08 23:15] LABS: ANISOCYTOSIS 1+; LYMPHOCYTES % (MANUAL) 10 % (20-45); NEUTROPHILS % (MANUAL) 84 % (45-75); TOTAL CELLS COUNTED 100
[2017-01-08 23:16] LABS: BAND NEUTROPHILS % (MANUAL) 0 % (0-8); BASOPHILS % (MANUAL) 0 % (0-2); EOSINOPHILS % (MANUAL) 0 % (0-3); HYPOCHROMASIA 2+; MICROCYTES 1+; PLATELET ESTIMATE ADEQUATE; PLATELET MORPHOLOGY NORMAL
[2017-01-09] VITALS (25 sets, daily range): BP systolic 101–163; BP diastolic 29–89
[2017-01-09] MEDS: Hydrocortisone 100mg Inj IV SCH ×3 (00:55→20:41)
[2017-01-09] MEDS: Metoclopramide 10mg/2ml Inj IVP SCH ×5 (00:55→23:44)
[2017-01-09] MEDS: NovoLOG Insulin Flexpen SUBQ SCH ×5 (00:57→23:46)
[2017-01-09] MEDS: Meropenem 1gm/NS 110ml IVPB SCH ×4 (03:00→14:42)
[2017-01-09] MEDS: Amoxicillin 250mg/5ml susp GT SCH ×3 (06:34→21:39)
[2017-01-09] MEDS: DOPamine 400mg/250ml 250 ML IV SCH (06:35)
[2017-01-09] MEDS: LORazepam Inj 2mg/ml 1ml IV PRN (06:35)
[2017-01-09] MEDS ORDERED: Nulytely 4L GT ONE (08:30)
[2017-01-09 08:32] LABS: ABG ALLEN TEST POSITIVE; ABG BASE EXCESS 11.5; ABG PCO2 48.3 mmHg (35.0-45.0)
[2017-01-09 08:37] LABS: MEAN CORPUSCULAR HEMOGLOBIN 30.4 PG (27.0-31.0); MEAN CORPUSCULAR HGB CONC 33.8 G/DL (32.0-36.0); MEAN CORPUSCULAR VOLUME 90 FL (80-99); MEAN PLATELET VOLUME 8.7 FL (6.5-10.1); PLATELET COUNT 286 K/UL (150-450); RED CELL DISTRIBUTION WIDTH 14.8 % (11.6-14.8)
[2017-01-09] MEDS: Renvela 800mg Pkt NG SCH (09:07)
[2017-01-09] MEDS: Pantoprazole Inj IVP SCH ×2 (09:07→20:41)
[2017-01-09 09:10] LABS: WHITE BLOOD COUNT 23.6 K/UL (4.8-10.8)
[2017-01-09 09:27] LABS: ALANINE AMINOTRANSFERASE 5 U/L (3-33); ALBUMIN/GLOBULIN RATIO 0.5 (1.0-2.7); ANION GAP 5 (5-15); ASPARTATE AMINO TRANSFERASE 16 U/L (5-40); CALCIUM 7.3 mg/dL (8.6-10.2); CARBON DIOXIDE 38 mEQ/L (20-30); CHLORIDE 106 mEQ/L (98-107); CREATININE 0.9 mg/dL (0.5-0.9); GLOMERULAR FILTRATION RATE > 60 mL/min (>60); HEMOLYSIS 2; MAGNESIUM 2.4 mg/dL (1.7-2.5); POTASSIUM 3.7 mEQ/L (3.4-4.9); SODIUM 149 mEQ/L (135-145); TOTAL PROTEIN 4.8 g/dL (6.6-8.7)
[2017-01-09 09:39] LABS: ANISOCYTOSIS 1+; BAND NEUTROPHILS % (MANUAL) 0 % (0-8); BASOPHILS % (MANUAL) 0 % (0-2); EOSINOPHILS % (MANUAL) 0 % (0-3); HYPOCHROMASIA 1+; LYMPHOCYTES % (MANUAL) 8 % (20-45); NEUTROPHILS % (MANUAL) 80 % (45-75); PLATELET ESTIMATE ADEQUATE; PLATELET MORPHOLOGY NORMAL; TOTAL CELLS COUNTED 100
--- NOTE | 2017-01-09 10:31 | Pulmonolgy Critical Care Note ---
Critical Care - Asmt/Plan Problems: (1) Respiratory failure requiring intubation (2) Sepsis (3) Pancreatitis (4) Lower GI bleed (5) Anemia (6) Atrial fibrillation (7) ATN (acute tubular necrosis) Respiratory: monitor respiratory rate, adjust FIO2, CXR Cardiac: continue to monitor HR/BP Renal: F/U I&O, keep IV fluid, check electrolytes Infectious Disease: check cultures, continue antibiotics Gastrointestinal: continue feedings/current rate, hold feedings Endocrine: monitor blood sugar Hematologic: monitor H/H Neurologic: PRN Ativan Prophylaxis: Protonix, Heparin - off heparin drip because of bleeding Notes Reviewed: cardio, renal, ID, GI Discussed with: nurses, consultants, senior case managerassistant manager retail - Objective Last 24 Hour Vital Signs Date Time Temp Pulse Resp B/P Pulse Ox O2 Delivery O2 Flow Rate FiO2 01/09/17 09:16 125 16 45 01/09/17 08:00 114 01/09/17 08:00 98.6 134 18 158/86 100 Mechanical Ventilator 45 01/09/17 08:00 45 01/09/17 07:22 131 18 45 01/09/17 07:00 101 23 138/51 100 Mechanical Ventilator 45 01/09/17 06:35 142/64 01/09/17 06:00 115 20 142/64 100 Mechanical Ventilator 45 01/09/17 05:16 114 16 45 01/09/17 05:00 112 25 129/38 100 Mechanical Ventilator 45 01/09/17 04:00 45 01/09/17 04:00 98.4 122 22 137/66 100 Mechanical Ventilator 45 01/09/17 04:00 114 01/09/17 03:30 93 15 45 01/09/17 03:00 126 23 119/56 100 Mechanical Ventilator 45 01/09/17 02:00 118 22 115/55 100 Mechanical Ventilator 45 01/09/17 01:30 101 15 45 01/09/17 01:00 116 24 101/29 100 Mechanical Ventilator 45 01/09/17 00:00 116 01/09/17 00:00 98.5 112 23 122/53 100 Mechanical Ventilator 45 01/09/17 00:00 45 01/08/17 23:22 123 19 45 01/08/17 23:00 120 22 124/39 100 Mechanical Ventilator 45 01/08/17 22:00 106 18 124/48 100 Mechanical Ventilator 45 01/08/17 21:07 98 14 50 01/08/17 21:00 115 17 139/56 100 Mechanical Ventilator 45 01/08/17 20:00 45 01/08/17 20:00 112 01/08/17 20:00 98.3 97 17 141/52 100 Mechanical Ventilator 45 01/08/17 19:30 98 15 50 01/08/17 19:00 115 19 144/62 100 Mechanical Ventilator 50 01/08/17 18:27 136/57 01/08/17 18:00 109 18 145/60 100 Mechanical Ventilator 50 01/08/17 17:00 64 18 128/52 100 Mechanical Ventilator 50 01/08/17 16:52 104 16 45 01/08/17 16:00 98.5 100 18 132/42 100 Mechanical Ventilator 50 01/08/17 16:00 50 01/08/17 16:00 93 01/08/17 15:25 100 17 45 01/08/17 15:00 86 18 140/52 100 Mechanical Ventilator 50 01/08/17 14:00 104 18 121/55 100 Mechanical Ventilator 50 01/08/17 13:20 103 20 45 01/08/17 13:00 109 17 132/48 99 Mechanical Ventilator 50 01/08/17 12:00 107 01/08/17 12:00 98.3 108 18 138/50 99 Mechanical Ventilator 50 01/08/17 12:00 50 01/08/17 11:29 141 25 50 01/08/17 11:00 112 18 141/53 99 Mechanical Ventilator 50 Status: awake Condition: critical HEENT: atraumatic Neck: full ROM Lungs: clear, rales Heart: HR/BP stable, HR/BP unstable Abdomen: soft, non-tender, active bowel sounds Extremities: no C/C/E, edema Decubiti: location Accucheck: 203 Critical Care - Subjective ROS Limited/Unobtainable: Yes ICU Day: 31 Interval Events: still has melena, heparin drip is off Condition: critical EKG Rhythm: Sinus Rhythm FI02: 45 Vent Support Breath Rate: 15 Vent Support Mode: AC Vent Tidal Volume: 500 Sputum Amount: Small PEEP: 7.0 PIP: 36 Drips: heparin drip is off Tube Feeding Amount: 0 I&O: Intake and Output 01/08/17 01/09/17 19:00 07:00 Intake Total 1222.067 ml 350 ml Output Total 1290 ml 890 ml Balance -67.933 ml -540 ml IV Total 712.067 ml 50 ml Tube Feeding 420 ml 210 ml Other 90 ml 90 ml Output Urine Total 1290 ml 890 ml # Bowel Movements 2 7 CXR: no change ET Position: 22 Labs: Laboratory Tests Test 01/08/17 13:40 01/08/17 18:00 01/08/17 22:15 01/09/17 07:45 Activated Partial Thromboplast Time 137 SEC (23-33) H 100 SEC (23-33) H Stool Occult Blood Pending White Blood Count 26.1 K/UL (4.8-10.8) *H Red Blood Count 1.84 M/UL (4.20-5.40) L Hemoglobin 6.1 G/DL (12.0-16.0) *L Hematocrit 17.7 % (37.0-47.0) L Mean Corpuscular Volume 96 FL (80-99) Mean Corpuscular Hemoglobin 33.3 PG (27.0-31.0) H Mean Corpuscular Hemoglobin Concent 34.6 G/DL (32.0-36.0) Red Cell Distribution Width 16.2 % (11.6-14.8) H Platelet Count 266 K/UL (150-450) Mean Platelet Volume 7.8 FL (6.5-10.1) Neutrophils (%) (Auto) % (45.0-75.0) Lymphocytes (%) (Auto) % (20.0-45.0) Monocytes (%) (Auto) % (1.0-10.0) Eosinophils (%) (Auto) % (0.0-3.0) Basophils (%) (Auto) % (0.0-2.0) Differential Total Cells Counted 100 Neutrophils % (Manual) 84 % (45-75) H Lymphocytes % (Manual) 10 % (20-45) L Monocytes % (Manual) 6 % (1-10) Eosinophils % (Manual) 0 % (0-3) Basophils % (Manual) 0 % (0-2) Band Neutrophils 0 % (0-8) Platelet Estimate Adequate Platelet Morphology Normal Hypochromasia 2+ Anisocytosis 1+ Microcytosis 1+ Arterial Blood pH 7.491 (7.350-7.450) Arterial Blood Partial Pressure CO2 48.3 mmHg (35.0-45.0) H Arterial Blood Partial Pressure O2 97.2 mmHg (75.0-100.0) Arterial Blood HCO3 36.1 mmol/L (22.0-26.0) H Arterial Blood Oxygen Saturation 96.6 % (92.0-98.0) Arterial Blood Base Excess 11.5 Ok Test Positive Test 01/09/17 08:10 White Blood Count 23.6 K/UL (4.8-10.8) *H Red Blood Count 2.50 M/UL (4.20-5.40) L Hemoglobin 7.6 G/DL (12.0-16.0) L Hematocrit 22.4 % (37.0-47.0) L Mean Corpuscular Volume 90 FL (80-99) Mean Corpuscular Hemoglobin 30.4 PG (27.0-31.0) Mean Corpuscular Hemoglobin Concent 33.8 G/DL (32.0-36.0) Red Cell Distribution Width 14.8 % (11.6-14.8) Platelet Count 286 K/UL (150-450) Mean Platelet Volume 8.7 FL (6.5-10.1) Neutrophils (%) (Auto) % (45.0-75.0) Lymphocytes (%) (Auto) % (20.0-45.0) Monocytes (%) (Auto) % (1.0-10.0) Eosinophils (%) (Auto) % (0.0-3.0) Basophils (%) (Auto) % (0.0-2.0) Differential Total Cells Counted 100 Neutrophils % (Manual) 80 % (45-75) H Lymphocytes % (Manual) 8 % (20-45) L Monocytes % (Manual) 12 % (1-10) H Eosinophils % (Manual) 0 % (0-3) Basophils % (Manual) 0 % (0-2) Band Neutrophils 0 % (0-8) Platelet Estimate Adequate Platelet Morphology Normal Hypochromasia 1+ Anisocytosis 1+ Sodium Level 149 mEQ/L (135-145) H Potassium Level 3.7 mEQ/L (3.4-4.9) Chloride Level 106 mEQ/L (98-107) Carbon Dioxide Level 38 mEQ/L (20-30) H Anion Gap 5 (5-15) Blood Urea Nitrogen 74 mg/dL (7-23) H Creatinine 0.9 mg/dL (0.5-0.9) Estimat Glomerular Filtration Rate > 60 mL/min (>60) Glucose Level 223 mg/dL (74-106) H Calcium Level 7.3 mg/dL (8.6-10.2) L Phosphorus Level 3.0 mg/dL (2.5-4.8) Magnesium Level 2.4 mg/dL (1.7-2.5) Total Bilirubin 0.7 mg/dL (0.0-1.2) Aspartate Amino Transf (AST/SGOT) 16 U/L (5-40) Alanine Aminotransferase (ALT/SGPT) 5 U/L (3-33) Alkaline Phosphatase 86 U/L (35-104) Total Protein 4.8 g/dL (6.6-8.7) L Albumin 1.6 g/dL (3.5-5.2) L Globulin 3.2 g/dL Albumin/Globulin Ratio 0.5 (1.0-2.7) L TONY BRIDGES January 09, 2017 10:31
--- NOTE | 2017-01-09 10:45 | General Progress Note ---
Progress Note Progress Note Clinically same, no acute events. Trach and PEG OK. Nothing to add from surgical stand point. SHANICE CALABRESE January 09, 2017 10:45
--- NOTE | 2017-01-09 10:46 | General Progress Note ---
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 Mirtral Vavle prosthesis on anticoagulation Pulmonary HTN HypoAlbuminemia ARDS Plan: Onallopurinol and K supplement as needed reglan to IV Hydrocortisone IV Fluid challenge Keep bp above 100 syst by adjusting BP meds Optimize cardiac status K supplement as needed Adjust pulmonary status- Per GI / Surgery Avoid nephrotoxics monitor renal parameters Subjective ROS Limited/Unobtainable: Yes Constitutional: Reports: malaise Allergies: Coded Allergies: No Known Allergies (Unverified , 09/28/14) Objective Last 24 Hour Vital Signs Date Time Temp Pulse Resp B/P Pulse Ox O2 Delivery O2 Flow Rate FiO2 01/09/17 09:16 125 16 45 01/09/17 08:00 114 01/09/17 08:00 98.6 134 18 158/86 100 Mechanical Ventilator 45 01/09/17 08:00 45 01/09/17 07:22 131 18 45 01/09/17 07:00 101 23 138/51 100 Mechanical Ventilator 45 01/09/17 06:35 142/64 01/09/17 06:00 115 20 142/64 100 Mechanical Ventilator 45 01/09/17 05:16 114 16 45 01/09/17 05:00 112 25 129/38 100 Mechanical Ventilator 45 01/09/17 04:00 45 01/09/17 04:00 98.4 122 22 137/66 100 Mechanical Ventilator 45 01/09/17 04:00 114 01/09/17 03:30 93 15 45 01/09/17 03:00 126 23 119/56 100 Mechanical Ventilator 45 01/09/17 02:00 118 22 115/55 100 Mechanical Ventilator 45 01/09/17 01:30 101 15 45 01/09/17 01:00 116 24 101/29 100 Mechanical Ventilator 45 01/09/17 00:00 116 01/09/17 00:00 98.5 112 23 122/53 100 Mechanical Ventilator 45 01/09/17 00:00 45 01/08/17 23:22 123 19 45 01/08/17 23:00 120 22 124/39 100 Mechanical Ventilator 45 01/08/17 22:00 106 18 124/48 100 Mechanical Ventilator 45 01/08/17 21:07 98 14 50 01/08/17 21:00 115 17 139/56 100 Mechanical Ventilator 45 01/08/17 20:00 45 01/08/17 20:00 112 01/08/17 20:00 98.3 97 17 141/52 100 Mechanical Ventilator 45 01/08/17 19:30 98 15 50 01/08/17 19:00 115 19 144/62 100 Mechanical Ventilator 50 01/08/17 18:27 136/57 01/08/17 18:00 109 18 145/60 100 Mechanical Ventilator 50 01/08/17 17:00 64 18 128/52 100 Mechanical Ventilator 50 01/08/17 16:52 104 16 45 01/08/17 16:00 98.5 100 18 132/42 100 Mechanical Ventilator 50 01/08/17 16:00 50 01/08/17 16:00 93 01/08/17 15:25 100 17 45 01/08/17 15:00 86 18 140/52 100 Mechanical Ventilator 50 01/08/17 14:00 104 18 121/55 100 Mechanical Ventilator 50 01/08/17 13:20 103 20 45 01/08/17 13:00 109 17 132/48 99 Mechanical Ventilator 50 01/08/17 12:00 107 01/08/17 12:00 98.3 108 18 138/50 99 Mechanical Ventilator 50 01/08/17 12:00 50 01/08/17 11:29 141 25 50 01/08/17 11:00 112 18 141/53 99 Mechanical Ventilator 50 Intake and Output 01/08/17 01/09/17 19:00 07:00 Intake Total 1222.067 ml 350 ml Output Total 1290 ml 890 ml Balance -67.933 ml -540 ml IV Total 712.067 ml 50 ml Tube Feeding 420 ml 210 ml Other 90 ml 90 ml Output Urine Total 1290 ml 890 ml # Bowel Movements 2 7 Laboratory Tests 01/08/17 13:40: Activated Partial Thromboplast Time 137H 01/08/17 18:00: Stool Occult Blood Positive 01/08/17 22:15: Activated Partial Thromboplast Time 100H, White Blood Count 26.1*H, Red Blood Count 1.84L, Hemoglobin 6.1*L, Hematocrit 17.7L, Mean Corpuscular Volume 96, Mean Corpuscular Hemoglobin 33.3H, Mean Corpuscular Hemoglobin Concent 34.6, Red Cell Distribution Width 16.2H, Platelet Count 266, Mean Platelet Volume 7.8 , Neutrophils (%) (Auto) , Lymphocytes (%) (Auto) , Monocytes (%) (Auto) , Eosinophils (%) (Auto) , Basophils (%) (Auto) , Differential Total Cells Counted 100, Neutrophils % (Manual) 84H, Lymphocytes % (Manual) 10L, Monocytes % (Manual) 6, Eosinophils % (Manual) 0, Basophils % (Manual) 0, Band Neutrophils 0, Platelet Estimate Adequate, Platelet Morphology Normal, Hypochromasia 2+, Anisocytosis 1+, Microcytosis 1+ 01/09/17 07:45: Arterial Blood pH 7.491H, Arterial Blood Partial Pressure CO2 48.3H, Arterial Blood Partial Pressure O2 97.2, Arterial Blood HCO3 36.1H, Arterial Blood Oxygen Saturation 96.6, Arterial Blood Base Excess 11.5, Ok Test Positive 01/09/17 08:10: White Blood Count 23.6*H, Red Blood Count 2.50L, Hemoglobin 7.6L, Hematocrit 22.4L, Mean Corpuscular Volume 90, Mean Corpuscular Hemoglobin 30.4, Mean Corpuscular Hemoglobin Concent 33.8, Red Cell Distribution Width 14.8, Platelet Count 286, Mean Platelet Volume 8.7, Neutrophils (%) (Auto) , Lymphocytes (%) ( Auto) , Monocytes (%) (Auto) , Eosinophils (%) (Auto) , Basophils (%) (Auto) , Differential Total Cells Counted 100, Neutrophils % (Manual) 80H, Lymphocytes % (Manual) 8L, Monocytes % (Manual) 12H, Eosinophils % (Manual) 0, Basophils % ( Manual) 0, Band Neutrophils 0, Platelet Estimate Adequate, Platelet Morphology Normal, Hypochromasia 1+, Anisocytosis 1+, Sodium Level 149H, Potassium Level 3.7, Chloride Level 106, Carbon Dioxide Level 38H, Anion Gap 5, Blood Urea Nitrogen 74H, Creatinine 0.9, Estimat Glomerular Filtration Rate > 60, Glucose Level 223H, Calcium Level 7.3L, Phosphorus Level 3.0, Magnesium Level 2.4, Total Bilirubin 0.7, Aspartate Amino Transf (AST/SGOT) 16, Alanine Aminotransferase (ALT/SGPT) 5, Alkaline Phosphatase 86, Total Protein 4.8L, Albumin 1.6L, Globulin 3.2, Albumin/Globulin Ratio 0.5L Height (Feet): 5 Height (Inches): 1.00 Weight (Pounds): 145 General Appearance: no apparent distress Neck: stiff neck Cardiovascular: tachycardia Respiratory/Chest: decreased breath sounds Abdomen: distended Objective other PE not changed KAMINI SNOW January 09, 2017 10:46
--- NOTE | 2017-01-09 14:05 | GI Progress Note ---
Assessment/Plan Problems: (1) Pancreatitis ICD Codes: K85.9 - Acute pancreatitis, unspecified SNOMED: 60058944 Qualifiers: Qualified Codes: K85.10 - Biliary acute pancreatitis without necrosis or infection (2) Abdominal pain ICD Codes: R10.9 - Unspecified abdominal pain SNOMED: 22243310, 637881524 (3) Iron deficiency anemia ICD Codes: D50.9 - Iron deficiency anemia, unspecified SNOMED: 66684852 (4) Colon polyp ICD Codes: K63.5 - Polyp of colon SNOMED: 58984871 Status: not improved, unchanged Status Narrative Discussed with Dr. Gipson. Assessment/Plan Pancreatitis - abdomen still very distended cholelithiasis, no e/o choledocholithiasis rising WBC S/P trach APCT reviewed>> New finding of a 6 x 4.4 x 4.9 cm masslike lesion in the left paracolic gutter, which compresses and splays but does not appear to obstruct an adjacent small bowel loop, see full report. 01/04/17 cdiff negative OB stool positive pt scheduled for colonoscopy tomorrow - CLD, NPO @ [facility]. - hold all blood thinners. monitor H&H, transfuse prn reglan ATC GT site care >> GT site bleed >> see surgical note. ppi BID abx monitor amylase/lipase follow labs supportive care SUMMARY OF FINDINGS: Status post successful PEG placement. RECOMMENDATIONS: 1. Abdominal binder. 2. Elevate the head of the bed at all times. 3. G-tube flush. 4. G-tube care. The patient received a dose of antibiotics prior to this procedure. Subjective Subjective limited Objective Last 24 Hour Vital Signs Date Time Temp Pulse Resp B/P Pulse Ox O2 Delivery O2 Flow Rate FiO2 01/09/17 13:27 95 16 40 01/09/17 13:00 107 15 111/60 100 Mechanical Ventilator 45 01/09/17 12:00 98.4 104 15 131/78 100 Mechanical Ventilator 45 01/09/17 12:00 108 01/09/17 12:00 45 01/09/17 11:24 124 16 40 01/09/17 11:00 118 15 133/72 100 Mechanical Ventilator 45 01/09/17 10:00 113 15 103/40 100 Mechanical Ventilator 45 01/09/17 09:16 125 16 45 5/3/17 09:00 130 19 139/80 100 Mechanical Ventilator 45 5/3/17 08:00 114 317 08:00 98.6 134 18 158/86 100 Mechanical Ventilator 45 5/3/17 08:00 45 5/3/17 07:22 131 18 45 5/3/17 07:00 101 23 138/51 100 Mechanical Ventilator 45 3/17 06:35 142/64 5 06:00 115 20 142/64 100 Mechanical Ventilator 45 3/17 05:16 114 16 45 5/3/17 05:00 112 25 129/38 100 Mechanical Ventilator 45 53/ 04:00 45 /3/ 04:00 98.4 122 22 137/66 100 Mechanical Ventilator 45 3/ 04:00 114 01/09/17 03:30 93 15 45 3/ 03:00 126 23 119/56 100 Mechanical Ventilator 45 3/17 02:00 118 22 115/55 100 Mechanical Ventilator 45 3/17 01:30 101 15 45 3/ 01:00 116 24 101/29 100 Mechanical Ventilator 45 3/ 00:00 116 3/ 00:00 98.5 112 23 122/53 100 Mechanical Ventilator 45 3/ 00:00 45 2/17 23:22 123 19 45 2/17 23:00 120 22 124/39 100 Mechanical Ventilator 45 2/17 22:00 106 18 124/48 100 Mechanical Ventilator 45 5/2/17 21:07 98 14 50 5/2/17 21:00 115 17 139/56 100 Mechanical Ventilator 45 5/2/17 20:00 45 5/2/17 20:00 112 2/17 20:00 98.3 97 17 141/52 100 Mechanical Ventilator 45 5/2/17 19:30 98 15 50 5/2/17 19:00 115 19 144/62 100 Mechanical Ventilator 50 5/2/17 18:27 136/57 5/2/17 18:00 109 18 145/60 100 Mechanical Ventilator 50 5/2/17 17:00 64 18 128/52 100 Mechanical Ventilator 50 5/2/17 16:52 104 16 45 5/2/17 16:00 98.5 100 18 132/42 100 Mechanical Ventilator 50 5/2/17 16:00 50 01/08/17 16:00 93 01/08/17 15:25 100 17 45 01/08/17 15:00 86 18 140/52 100 Mechanical Ventilator 50 Intake and Output 01/08/17 01/09/17 19:00 07:00 Intake Total 1222.067 ml 350 ml Output Total 1290 ml 890 ml Balance -67.933 ml -540 ml IV Total 712.067 ml 50 ml Tube Feeding 420 ml 210 ml Other 90 ml 90 ml Output Urine Total 1290 ml 890 ml # Bowel Movements 2 7 Laboratory Tests Test 01/08/17 18:00 01/08/17 22:15 01/09/17 07:45 01/09/17 08:10 Stool Occult Blood Positive (NEGATIVE) White Blood Count 26.1 K/UL (4.8-10.8) *H 23.6 K/UL (4.8-10.8) *H Red Blood Count 1.84 M/UL (4.20-5.40) L 2.50 M/UL (4.20-5.40) L Hemoglobin 6.1 G/DL (12.0-16.0) *L 7.6 G/DL (12.0-16.0) L Hematocrit 17.7 % (37.0-47.0) L 22.4 % (37.0-47.0) L Mean Corpuscular Volume 96 FL (80-99) 90 FL (80-99) Mean Corpuscular Hemoglobin 33.3 PG (27.0-31.0) H 30.4 PG (27.0-31.0) Mean Corpuscular Hemoglobin Concent 34.6 G/DL (32.0-36.0) 33.8 G/DL (32.0-36.0) Red Cell Distribution Width 16.2 % (11.6-14.8) H 14.8 % (11.6-14.8) Platelet Count 266 K/UL (150-450) 286 K/UL (150-450) Mean Platelet Volume 7.8 FL (6.5-10.1) 8.7 FL (6.5-10.1) Neutrophils (%) (Auto) % (45.0-75.0) % (45.0-75.0) Lymphocytes (%) (Auto) % (20.0-45.0) % (20.0-45.0) Monocytes (%) (Auto) % (1.0-10.0) % (1.0-10.0) Eosinophils (%) (Auto) % (0.0-3.0) % (0.0-3.0) Basophils (%) (Auto) % (0.0-2.0) % (0.0-2.0) Differential Total Cells Counted 100 100 Neutrophils % (Manual) 84 % (45-75) H 80 % (45-75) H Lymphocytes % (Manual) 10 % (20-45) L 8 % (20-45) L Monocytes % (Manual) 6 % (1-10) 12 % (1-10) H Eosinophils % (Manual) 0 % (0-3) 0 % (0-3) Basophils % (Manual) 0 % (0-2) 0 % (0-2) Band Neutrophils 0 % (0-8) 0 % (0-8) Platelet Estimate Adequate Adequate Platelet Morphology Normal Normal Hypochromasia 2+ 1+ Anisocytosis 1+ 1+ Microcytosis 1+ Activated Partial Thromboplast Time 100 SEC (23-33) H Arterial Blood pH 7.491 (7.350-7.450) Arterial Blood Partial Pressure CO2 48.3 mmHg (35.0-45.0) H Arterial Blood Partial Pressure O2 97.2 mmHg (75.0-100.0) Arterial Blood HCO3 36.1 mmol/L (22.0-26.0) H Arterial Blood Oxygen Saturation 96.6 % (92.0-98.0) Arterial Blood Base Excess 11.5 Ok Test Positive Sodium Level 149 mEQ/L (135-145) H Potassium Level 3.7 mEQ/L (3.4-4.9) Chloride Level 106 mEQ/L (98-107) Carbon Dioxide Level 38 mEQ/L (20-30) H Anion Gap 5 (5-15) Blood Urea Nitrogen 74 mg/dL (7-23) H Creatinine 0.9 mg/dL (0.5-0.9) Estimat Glomerular Filtration Rate > 60 mL/min (>60) Glucose Level 223 mg/dL (74-106) H Calcium Level 7.3 mg/dL (8.6-10.2) L Phosphorus Level 3.0 mg/dL (2.5-4.8) Magnesium Level 2.4 mg/dL (1.7-2.5) Total Bilirubin 0.7 mg/dL (0.0-1.2) Aspartate Amino Transf (AST/SGOT) 16 U/L (5-40) Alanine Aminotransferase (ALT/SGPT) 5 U/L (3-33) Alkaline Phosphatase 86 U/L (35-104) Total Protein 4.8 g/dL (6.6-8.7) L Albumin 1.6 g/dL (3.5-5.2) L Globulin 3.2 g/dL Albumin/Globulin Ratio 0.5 (1.0-2.7) L Height (Feet): 5 Height (Inches): 1.00 Weight (Pounds): 145 General Appearance: no apparent distress Cardiovascular: normal rate Respiratory/Chest: other - mech vent Abdominal Exam: GT site - no bleeding Objective Service Date: 12/11/16 Procedure: MRI Abdomen no Contrast Indication: Abdominal pain, possible pancreatitis Findings: Multiple calcifications are seen within the gallbladder. There is a ductal structure cephalad to the gallbladder which contains a filling defect. This is probably the cystic duct, but could be an extrahepatic bile duct, and it is uncertain which of these is. The gallbladder wall is not thickened. The extrahepatic bile ducts are ectatic, with the common bile duct measuring up to 9 mm diameter , but no downstream filling defects are demonstrated. The common bile duct terminates abruptly at the level of the ampulla. The pancreatic duct is mildly ectatic, measuring 3-4 mm in diameter. No intraluminal filling defects are demonstrated. A 7 mm fluid signal lesion is seen within the uncinate process of the pancreas. This may actually be a duodenal diverticulum which is seen on the recent CT scan. There is apparent swelling of the pancreas and considerable free intraperitoneal fluid. No free intraperitoneal fluid presumably increased from the prior CT scan. There are dilated small bowel loops, likely indicating ileus. The liver is unremarkable. The adrenals and kidneys are unremarkable. There are bilateral small pleural effusions. The spleen is unremarkable. The heart is enlarged Impression: Cholelithiasis. There is also a calculus within the duct adjacent to the gallbladder which is probably the cystic duct but could be an extrahepatic bile duct. Extrahepatic and central intrahepatic biliary ductal mild dilatation. No definite downstream calculus or pancreatic head mass to account for this, however. Prominence and edema of the pancreas, better visualized on prior CT scan, consistent with acute pancreatitis, also previously described Ascites fluid, increased from the prior CT scan, likely secondary to the acute pancreatitis Dilated small bowel loops, new since prior CT study. Suspect representing ileus related to the pancreatitis Bilateral small pleural effusions Small cystic lesion within the as a process. Suspect that this is actually the duodenal diverticulum described on recent CT scan, but could represent a tiny pseudocyst or intraductal papillary mucinous neoplasm. Cardiomegaly Lulu Dominguez N.P. January 09, 2017 14:05
--- NOTE | 2017-01-09 14:45 | Diagnostic Imaging Report ---
Indication: DYSPNEA Technique: One view of the chest Comparison: 01/08/2017 Findings: Patient is rotated to the right. Right lung apparent volume loss, generalized diffuse bilateral interstitial and alveolar infiltrates versus edema persists. Other findings are unchanged as well. Impression: Unchanged, over one day, findings as above.
[2017-01-09] MEDS ORDERED: Nulytely 4L ORAL ONE (16:00)
--- NOTE | 2017-01-09 18:37 | Infectious Diseases Prog Note ---
Assessment/Plan Assessment/Plan ASSESSMENT: Fever, SP leukocytosis overall improving ( probable due to GI bleed, pt has tarry stool ) Pancreatitis improving CT: Findings compatible with marked worsening of acute pancreatitis MRCP : Cholelithiasis. There is also a calculus within the duct adjacent to the gallbladder Pancreatic Enzymes improving CT of Abd : reviewed cholelithiasis : US of liver : Incidental finding of cholelithiasis and mild gallbladder wall thickening positive sonographic Diaz's sign LFT : Nl UTI : Mandy SCx : Mandy ( colonizer ) SP PEG 01/02 VDRF: SP trach 01/01 Cxray : Increase in bilateral congestive changes with persistent small right , probable new left pleural effusions ARF SP aortic stenosis mitral stenosis status post mitral valve replacement AFib Pulmonary hypertension PLAN: - cont on IV Merrem d# 7 / 14 , , oral Amoxi d# 3 / 7 ( 01/07 SP Zyvox d#5 and Flagyl d# 4 ) ( 12/28 SP Diflucan d# 10 ) ( 12/24 SP Merrem d# 14 /14 ) - monitor CBC, temperatures, - monitor LFT - GI f/u - Sx is following for possible Cholecystectomy later - VDRF - Dopamine ( renal dose ) - monitor Cx ( Bl ) - PRBC transfusion PRN - Colonoscopy tomorrow Subjective Allergies: Coded Allergies: No Known Allergies (Unverified , 09/28/14) Subjective on Vent Objective Vital Signs Last 24 Hour Vital Signs Date Time Temp Pulse Resp B/P Pulse Ox O2 Delivery O2 Flow Rate FiO2 01/09/17 17:00 110 17 163/69 100 Mechanical Ventilator 45 01/09/17 16:44 112 15 40 01/09/17 16:00 45 01/09/17 16:00 98.5 104 17 156/79 100 Mechanical Ventilator 45 01/09/17 15:46 115 01/09/17 15:30 98.7 108 17 137/53 100 Mechanical Ventilator 45 01/09/17 15:21 110 15 40 01/09/17 15:00 98.7 116 17 148/51 100 Mechanical Ventilator 45 01/09/17 14:00 115 15 123/60 100 Mechanical Ventilator 45 01/09/17 13:27 95 16 40 01/09/17 13:00 107 15 111/60 100 Mechanical Ventilator 45 01/09/17 12:00 98.4 104 15 131/78 100 Mechanical Ventilator 45 01/09 12:00 108 01/09/17 12:00 45 317 11:24 124 16 40 01/09/17 11:00 118 15 133/72 100 Mechanical Ventilator 45 01/09/17 10:00 113 15 103/40 100 Mechanical Ventilator 45 3/ 09:16 125 16 45 01/09/17 09:00 130 19 139/80 100 Mechanical Ventilator 45 01/09/17 08:00 114 01/09/17 08:00 98.6 134 18 158/86 100 Mechanical Ventilator 45 01/09/17 08:00 45 01/09/17 07:22 131 18 45 01/09/ 07:00 101 23 138/51 100 Mechanical Ventilator 45 01/09/17 06:35 142/64 01/09/17 06:00 115 20 142/64 100 Mechanical Ventilator 45 01/09/17 05:16 114 16 45 01/09/17 05:00 112 25 129/38 100 Mechanical Ventilator 45 01/09/17 04:00 45 01/09/17 04:00 98.4 122 22 137/66 100 Mechanical Ventilator 45 01/09/17 04:00 114 01/09/17 03:30 93 15 45 01/09/17 03:00 126 23 119/56 100 Mechanical Ventilator 45 01/09/17 02:00 118 22 115/55 100 Mechanical Ventilator 45 01/09/17 01:30 101 15 45 3/17 01:00 116 24 101/29 100 Mechanical Ventilator 45 3 00:00 116 01/09/17 00:00 98.5 112 23 122/53 100 Mechanical Ventilator 45 01/09/17 00:00 45 2 23:22 123 19 45 217 23:00 120 22 124/39 100 Mechanical Ventilator 45 2/17 22:00 106 18 124/48 100 Mechanical Ventilator 45 2/17 21:07 98 14 50 2/17 21:00 115 17 139/56 100 Mechanical Ventilator 45 2/17 20:00 45 2/17 20:00 112 2/17 20:00 98.3 97 17 141/52 100 Mechanical Ventilator 45 52/17 19:30 98 15 50 2/17 19:00 115 19 144/62 100 Mechanical Ventilator 50 Height (Feet): 5 Height (Inches): 1.00 Weight (Pounds): 145 HEENT: atraumatic Respiratory/Chest: normal breath sounds Cardiovascular: regular rhythm Abdomen: no mass Laboratory Tests Test 01/08/17 22:15 01/09/17 07:45 01/09/17 08:10 White Blood Count 26.1 K/UL (4.8-10.8) *H 23.6 K/UL (4.8-10.8) *H Red Blood Count 1.84 M/UL (4.20-5.40) L 2.50 M/UL (4.20-5.40) L Hemoglobin 6.1 G/DL (12.0-16.0) *L 7.6 G/DL (12.0-16.0) L Hematocrit 17.7 % (37.0-47.0) L 22.4 % (37.0-47.0) L Mean Corpuscular Volume 96 FL (80-99) 90 FL (80-99) Mean Corpuscular Hemoglobin 33.3 PG (27.0-31.0) H 30.4 PG (27.0-31.0) Mean Corpuscular Hemoglobin Concent 34.6 G/DL (32.0-36.0) 33.8 G/DL (32.0-36.0) Red Cell Distribution Width 16.2 % (11.6-14.8) H 14.8 % (11.6-14.8) Platelet Count 266 K/UL (150-450) 286 K/UL (150-450) Mean Platelet Volume 7.8 FL (6.5-10.1) 8.7 FL (6.5-10.1) Neutrophils (%) (Auto) % (45.0-75.0) % (45.0-75.0) Lymphocytes (%) (Auto) % (20.0-45.0) % (20.0-45.0) Monocytes (%) (Auto) % (1.0-10.0) % (1.0-10.0) Eosinophils (%) (Auto) % (0.0-3.0) % (0.0-3.0) Basophils (%) (Auto) % (0.0-2.0) % (0.0-2.0) Differential Total Cells Counted 100 100 Neutrophils % (Manual) 84 % (45-75) H 80 % (45-75) H Lymphocytes % (Manual) 10 % (20-45) L 8 % (20-45) L Monocytes % (Manual) 6 % (1-10) 12 % (1-10) H Eosinophils % (Manual) 0 % (0-3) 0 % (0-3) Basophils % (Manual) 0 % (0-2) 0 % (0-2) Band Neutrophils 0 % (0-8) 0 % (0-8) Platelet Estimate Adequate Adequate Platelet Morphology Normal Normal Hypochromasia 2+ 1+ Anisocytosis 1+ 1+ Microcytosis 1+ Activated Partial Thromboplast Time 100 SEC (23-33) H Arterial Blood pH 7.491 (7.350-7.450) Arterial Blood Partial Pressure CO2 48.3 mmHg (35.0-45.0) H Arterial Blood Partial Pressure O2 97.2 mmHg (75.0-100.0) Arterial Blood HCO3 36.1 mmol/L (22.0-26.0) H Arterial Blood Oxygen Saturation 96.6 % (92.0-98.0) Arterial Blood Base Excess 11.5 Ok Test Positive Sodium Level 149 mEQ/L (135-145) H Potassium Level 3.7 mEQ/L (3.4-4.9) Chloride Level 106 mEQ/L (98-107) Carbon Dioxide Level 38 mEQ/L (20-30) H Anion Gap 5 (5-15) Blood Urea Nitrogen 74 mg/dL (7-23) H Creatinine 0.9 mg/dL (0.5-0.9) Estimat Glomerular Filtration Rate > 60 mL/min (>60) Glucose Level 223 mg/dL (74-106) H Calcium Level 7.3 mg/dL (8.6-10.2) L Phosphorus Level 3.0 mg/dL (2.5-4.8) Magnesium Level 2.4 mg/dL (1.7-2.5) Total Bilirubin 0.7 mg/dL (0.0-1.2) Aspartate Amino Transf (AST/SGOT) 16 U/L (5-40) Alanine Aminotransferase (ALT/SGPT) 5 U/L (3-33) Alkaline Phosphatase 86 U/L (35-104) Total Protein 4.8 g/dL (6.6-8.7) L Albumin 1.6 g/dL (3.5-5.2) L Globulin 3.2 g/dL Albumin/Globulin Ratio 0.5 (1.0-2.7) L Current Medications Medications (Trade) Dose Ordered Sig/Lisbeth Route PRN Reason Start Time Stop Time Status Last Admin Dose Admin Acetaminophen (Tylenol) 650 mg Q4H PRN ORAL fever 12/17/16 08:00 01/16/17 07:59 01/08/17 22:51 Albuterol/ Ipratropium (DuoNeb 0.5-3(2.5)mg/3ml) 3 ml Q4HRT PRN HHN sob 01/05/17 07:30 01/10/17 07:29 Allopurinol (Allopurinol) 300 mg DAILY GT 01/07/17 16:30 02/06/17 16:29 01/09/17 09:07 Amoxicillin (Amoxil) 500 mg EVERY 8 HOURS GT 01/07/17 15:00 01/14/17 14:59 01/09/17 14:47 Dextrose (Dextrose 50%) STAT PRN IV Hypoglycemia 12/17/16 07:30 01/16/17 07:29 Hydrocortisone (Anusol HC) 1 supp BIDPRN PRN RECTAL Anal discomfort/swelling/bleed 01/01/17 17:00 01/31/17 16:59 Hydrocortisone (Solu-CORTEF) 50 mg EVERY 12 HOURS IV 01/09/17 21:00 02/08/17 20:59 Insulin Aspart (NovoLOG) No Dose Q6HR SUBQ 12/17/16 12:00 01/16/17 11:59 01/09/17 18:20 Lorazepam (Ativan 2mg/ml 1ml) 1 mg Q4H PRN IV For Anxiety 01/05/17 10:00 01/12/17 09:59 01/09/17 06:35 Meropenem/Sodium Chloride (Merrem/Sodium Chloride) 110 ml @ 220 mls/hr Q12HR@0200,1400 IVPB 01/07/17 14:00 01/12/17 13:59 01/09/17 14:42 Metoclopramide HCl (Reglan) 10 mg Q6H IVP 01/06/17 18:00 02/05/17 17:59 01/09/17 18:18 Morphine Sulfate (Morphine Sulfate) 4 mg Q4H PRN IVP PAIN 4-10 01/07/17 11:45 01/14/17 11:44 01/08/17 12:18 Ondansetron HCl (Zofran) 4 mg EVERY 4 HOURS PRN IVP Nausea & Vomiting 01/03/17 07:00 02/02/17 06:59 01/07/17 18:31 Pantoprazole 40 mg 40 mg EVERY 12 HOURS IVP 01/06/17 21:00 02/05/17 20:59 01/09/17 09:07 Temazepam (Restoril) 15 mg HSPRN PRN GT Insomnia 01/03/17 21:00 01/10/17 20:59 01/04/17 21:43 OSCAR ANDERSON M.D. January 09, 2017 18:37
--- NOTE | 2017-01-09 19:23 | Cardiology Progress Note ---
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 perm afib on anticoagulation with Coumadin coagulopathy now elevated due to med interaction adn disease process leukocytosis ARF intra abd hematomas brbpr anemia s/p transfucion hypernatremia anasarca bleeding around peg site s/p suture ct performed 01/07/2017 some pulm and effusion finding hematoma decreased, bp seem ok cr is normal slow wean now post trach heparin drip for mechanical mv i was notified by rn in [facility] middle of the nite of sig bleeding with drop in hgb heparin dcd was to have colonoscopy tody but apparently postponed until tomorrow rn now tells me no sig bleeding noted on the stoma only sig melena Subjective ROS Limited/Unobtainable: Yes Subjective on the vent ,s/p trach Objective Last 24 Hour Vital Signs Date Time Temp Pulse Resp B/P Pulse Ox O2 Delivery O2 Flow Rate FiO2 01/09/17 18:00 100 17 126/51 100 Mechanical Ventilator 45 01/09/17 17:00 110 17 163/69 100 Mechanical Ventilator 45 01/09/17 16:44 112 15 40 01/09/17 16:00 45 01/09/17 16:00 98.5 104 17 156/79 100 Mechanical Ventilator 45 01/09/17 15:46 115 01/09/17 15:30 98.7 108 17 137/53 100 Mechanical Ventilator 45 01/09/17 15:21 110 15 40 01/09/17 15:00 98.7 116 17 148/51 100 Mechanical Ventilator 45 01/09/17 14:00 115 15 123/60 100 Mechanical Ventilator 45 01/09/17 13:27 95 16 40 01/09/17 13:00 107 15 111/60 100 Mechanical Ventilator 45 01/09/17 12:00 98.4 104 15 131/78 100 Mechanical Ventilator 45 01/09/17 12:00 108 01/09/17 12:00 45 01/09/17 11:24 124 16 40 01/09/17 11:00 118 15 133/72 100 Mechanical Ventilator 45 01/09/17 10:00 113 15 103/40 100 Mechanical Ventilator 45 01/09/17 09:16 125 16 45 01/09/17 09:00 130 19 139/80 100 Mechanical Ventilator 45 01/09/17 08:00 114 01/09/17 08:00 98.6 134 18 158/86 100 Mechanical Ventilator 45 01/09/17 08:00 45 01/09/17 07:22 131 18 45 01/09/17 07:00 101 23 138/51 100 Mechanical Ventilator 45 01/09/17 06:35 142/64 01/09/17 06:00 115 20 142/64 100 Mechanical Ventilator 45 01/09/17 05:16 114 16 45 01/09/17 05:00 112 25 129/38 100 Mechanical Ventilator 45 01/09/17 04:00 45 01/09/17 04:00 98.4 122 22 137/66 100 Mechanical Ventilator 45 01/09/17 04:00 114 01/09/17 03:30 93 15 45 01/09/17 03:00 126 23 119/56 100 Mechanical Ventilator 45 01/09/17 02:00 118 22 115/55 100 Mechanical Ventilator 45 01/09/17 01:30 101 15 45 01/09/17 01:00 116 24 101/29 100 Mechanical Ventilator 45 01/09/17 00:00 116 01/09/17 00:00 98.5 112 23 122/53 100 Mechanical Ventilator 45 01/09/17 00:00 45 01/08/17 23:22 123 19 45 01/08/17 23:00 120 22 124/39 100 Mechanical Ventilator 45 01/08/17 22:00 106 18 124/48 100 Mechanical Ventilator 45 01/08/17 21:07 98 14 50 01/08/17 21:00 115 17 139/56 100 Mechanical Ventilator 45 01/08/17 20:00 45 01/08/17 20:00 112 01/08/17 20:00 98.3 97 17 141/52 100 Mechanical Ventilator 45 01/08/17 19:30 98 15 50 General Appearance: no apparent distress, alert, on vent Neck: supple Cardiovascular: irregularly irregular, other - mechanical heart sounds Respiratory/Chest: lungs clear - ant Abdomen: normal bowel sounds, non tender, soft Extremities: severe edema Intake and Output 01/08/17 01/09/17 19:00 07:00 Intake Total 1222.067 ml 350 ml Output Total 1290 ml 890 ml Balance -67.933 ml -540 ml IV Total 712.067 ml 50 ml Tube Feeding 420 ml 210 ml Other 90 ml 90 ml Output Urine Total 1290 ml 890 ml # Bowel Movements 2 7 Laboratory Tests Test 01/08/17 22:15 01/09/17 07:45 01/09/17 08:10 White Blood Count 26.1 K/UL (4.8-10.8) *H 23.6 K/UL (4.8-10.8) *H Red Blood Count 1.84 M/UL (4.20-5.40) L 2.50 M/UL (4.20-5.40) L Hemoglobin 6.1 G/DL (12.0-16.0) *L 7.6 G/DL (12.0-16.0) L Hematocrit 17.7 % (37.0-47.0) L 22.4 % (37.0-47.0) L Mean Corpuscular Volume 96 FL (80-99) 90 FL (80-99) Mean Corpuscular Hemoglobin 33.3 PG (27.0-31.0) H 30.4 PG (27.0-31.0) Mean Corpuscular Hemoglobin Concent 34.6 G/DL (32.0-36.0) 33.8 G/DL (32.0-36.0) Red Cell Distribution Width 16.2 % (11.6-14.8) H 14.8 % (11.6-14.8) Platelet Count 266 K/UL (150-450) 286 K/UL (150-450) Mean Platelet Volume 7.8 FL (6.5-10.1) 8.7 FL (6.5-10.1) Neutrophils (%) (Auto) % (45.0-75.0) % (45.0-75.0) Lymphocytes (%) (Auto) % (20.0-45.0) % (20.0-45.0) Monocytes (%) (Auto) % (1.0-10.0) % (1.0-10.0) Eosinophils (%) (Auto) % (0.0-3.0) % (0.0-3.0) Basophils (%) (Auto) % (0.0-2.0) % (0.0-2.0) Differential Total Cells Counted 100 100 Neutrophils % (Manual) 84 % (45-75) H 80 % (45-75) H Lymphocytes % (Manual) 10 % (20-45) L 8 % (20-45) L Monocytes % (Manual) 6 % (1-10) 12 % (1-10) H Eosinophils % (Manual) 0 % (0-3) 0 % (0-3) Basophils % (Manual) 0 % (0-2) 0 % (0-2) Band Neutrophils 0 % (0-8) 0 % (0-8) Platelet Estimate Adequate Adequate Platelet Morphology Normal Normal Hypochromasia 2+ 1+ Anisocytosis 1+ 1+ Microcytosis 1+ Activated Partial Thromboplast Time 100 SEC (23-33) H Arterial Blood pH 7.491 (7.350-7.450) Arterial Blood Partial Pressure CO2 48.3 mmHg (35.0-45.0) H Arterial Blood Partial Pressure O2 97.2 mmHg (75.0-100.0) Arterial Blood HCO3 36.1 mmol/L (22.0-26.0) H Arterial Blood Oxygen Saturation 96.6 % (92.0-98.0) Arterial Blood Base Excess 11.5 Ok Test Positive Sodium Level 149 mEQ/L (135-145) H Potassium Level 3.7 mEQ/L (3.4-4.9) Chloride Level 106 mEQ/L (98-107) Carbon Dioxide Level 38 mEQ/L (20-30) H Anion Gap 5 (5-15) Blood Urea Nitrogen 74 mg/dL (7-23) H Creatinine 0.9 mg/dL (0.5-0.9) Estimat Glomerular Filtration Rate > 60 mL/min (>60) Glucose Level 223 mg/dL (74-106) H Calcium Level 7.3 mg/dL (8.6-10.2) L Phosphorus Level 3.0 mg/dL (2.5-4.8) Magnesium Level 2.4 mg/dL (1.7-2.5) Total Bilirubin 0.7 mg/dL (0.0-1.2) Aspartate Amino Transf (AST/SGOT) 16 U/L (5-40) Alanine Aminotransferase (ALT/SGPT) 5 U/L (3-33) Alkaline Phosphatase 86 U/L (35-104) Total Protein 4.8 g/dL (6.6-8.7) L Albumin 1.6 g/dL (3.5-5.2) L Globulin 3.2 g/dL Albumin/Globulin Ratio 0.5 (1.0-2.7) L ANNE RAM January 09, 2017 19:23
[2017-01-09 22:41] LABS: MEAN CORPUSCULAR HEMOGLOBIN 31.5 PG (27.0-31.0); MEAN CORPUSCULAR HGB CONC 33.9 G/DL (32.0-36.0); MEAN CORPUSCULAR VOLUME 93 FL (80-99); MEAN PLATELET VOLUME 7.6 FL (6.5-10.1); PLATELET COUNT 255 K/UL (150-450); RED BLOOD COUNT 2.71 M/UL (4.20-5.40)
[2017-01-09 22:54] LABS: WHITE BLOOD COUNT 22.1 K/UL (4.8-10.8)
[2017-01-09 23:09] LABS: ANISOCYTOSIS 1+; BAND NEUTROPHILS % (MANUAL) 0 % (0-8); BASOPHILS % (MANUAL) 1 % (0-2); EOSINOPHILS % (MANUAL) 0 % (0-3); HYPOCHROMASIA 1+; LYMPHOCYTES % (MANUAL) 7 % (20-45); NEUTROPHILS % (MANUAL) 87 % (45-75); PLATELET ESTIMATE ADEQUATE; PLATELET MORPHOLOGY NORMAL; TOTAL CELLS COUNTED 100
[2017-01-10] VITALS (24 sets, daily range): BP systolic 107–160; BP diastolic 35–87
[2017-01-10] MEDS: Meropenem 1gm/NS 110ml IVPB SCH ×4 (01:34→13:23)
[2017-01-10] MEDS: Morphine Sulfate 4mg/ml Inj IVP PRN (03:58)
[2017-01-10 05:59] LABS: MEAN CORPUSCULAR HEMOGLOBIN 30.5 PG (27.0-31.0); MEAN CORPUSCULAR HGB CONC 33.8 G/DL (32.0-36.0); MEAN CORPUSCULAR VOLUME 90 FL (80-99); MEAN PLATELET VOLUME 9.3 FL (6.5-10.1); PLATELET COUNT 252 K/UL (150-450); RED CELL DISTRIBUTION WIDTH 14.6 % (11.6-14.8); WHITE BLOOD COUNT 17.2 K/UL (4.8-10.8)
[2017-01-10] MEDS: Amoxicillin 250mg/5ml susp GT SCH ×3 (06:06→21:51)
[2017-01-10] MEDS: Metoclopramide 10mg/2ml Inj IVP SCH ×4 (06:07→23:40)
[2017-01-10] MEDS: NovoLOG Insulin Flexpen SUBQ SCH ×4 (06:08→23:46)
[2017-01-10 06:17] LABS: INR 1.3 (0.9-1.1); PROTHROMBIN TIME 13.2 SEC (9.30-11.50)
[2017-01-10 06:36] LABS: ALANINE AMINOTRANSFERASE 5 U/L (3-33); ALBUMIN/GLOBULIN RATIO 0.6 (1.0-2.7); ANION GAP 4 (5-15); ASPARTATE AMINO TRANSFERASE 21 U/L (5-40); CALCIUM 7.4 mg/dL (8.6-10.2); CARBON DIOXIDE 39 mEQ/L (20-30); CHLORIDE 108 mEQ/L (98-107); CREATININE 0.7 mg/dL (0.5-0.9); GLOMERULAR FILTRATION RATE > 60 mL/min (>60); HEMOLYSIS 4; MAGNESIUM 2.4 mg/dL (1.7-2.5); PHOSPHORUS 2.6 mg/dL (2.5-4.8); POTASSIUM 3.4 mEQ/L (3.4-4.9); SODIUM 151 mEQ/L (135-145); TOTAL PROTEIN 4.8 g/dL (6.6-8.7)
[2017-01-10] MEDS: Pantoprazole Inj IVP SCH ×2 (08:28→20:59)
[2017-01-10] MEDS: Hydrocortisone 100mg Inj IV SCH ×2 (08:28→20:59)
[2017-01-10 08:42] LABS: BAND NEUTROPHILS % (MANUAL) 0 % (0-8); BASOPHILS % (MANUAL) 0 % (0-2); EOSINOPHILS % (MANUAL) 0 % (0-3); HYPOCHROMASIA 3+; LYMPHOCYTES % (MANUAL) 6 % (20-45); NEUTROPHILS % (MANUAL) 91 % (45-75); PLATELET ESTIMATE ADEQUATE; PLATELET MORPHOLOGY NORMAL; SPHEROCYTES 2+; TOTAL CELLS COUNTED 100
--- NOTE | 2017-01-10 09:47 | General Progress Note ---
Progress Note Progress Note Surgery: patient seen and examined at bedside. had melena recently. h/h dropping requiring transfusion. leukocytosis improved today. electrolytes as noted in chart. pancreatitis stable. currently mainly respiratory ARDS which she is slowly recovering from. Exam stable. PEG and Trach functional. nothing to add from surgical standpoint colonoscopy soon Rodrigo Andino January 10, 2017 09:47
--- NOTE | 2017-01-10 10:10 | Pulmonolgy Critical Care Note ---
Critical Care - Asmt/Plan Problems: (1) Respiratory failure requiring intubation (2) Sepsis (3) Pancreatitis (4) Lower GI bleed (5) Anemia (6) Atrial fibrillation (7) ATN (acute tubular necrosis) Assessment/Plan: off heparin and laxis and dopamin drip. for colonsocopy today Respiratory: monitor respiratory rate, adjust FIO2, CXR Cardiac: continue to monitor HR/BP Renal: F/U I&O, keep IV fluid Infectious Disease: check cultures, continue antibiotics Gastrointestinal: continue feedings/current rate Endocrine: monitor blood sugar, continue sliding scale insulin Hematologic: monitor H/H, transfuse if hgb<8.5 Neurologic: PRN Ativan, keep patient comfortable Prophylaxis: Protonix Disposition: keep in ICU Notes Reviewed: key cutter, 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 with: nurses, consultants, briefcase sewermanager payer - Objective Last 24 Hour Vital Signs Date Time Temp Pulse Resp B/P Pulse Ox O2 Delivery O2 Flow Rate FiO2 01/10/17 09:00 90 15 40 01/10/17 09:00 101 18 112/54 98 Mechanical Ventilator 45 01/10/17 08:00 98.1 105 20 131/67 100 Mechanical Ventilator 45 01/10/17 08:00 102 01/10/17 08:00 45 01/10/17 07:03 90 15 40 01/10/17 07:00 87 18 136/38 100 Mechanical Ventilator 45 01/10/17 06:00 85 15 135/48 100 Mechanical Ventilator 45 01/10/17 05:44 93 15 40 01/10/17 05:00 87 13 133/44 100 Mechanical Ventilator 45 01/10/17 04:00 45 01/10/17 04:00 94 01/10/17 04:00 98.3 93 15 130/63 100 Mechanical Ventilator 45 01/10/17 03:15 94 15 40 01/10/17 03:00 97 20 160/77 100 Mechanical Ventilator 45 01/10/17 02:00 95 11 139/56 100 Mechanical Ventilator 45 01/10/17 01:21 101 16 40 01/10/17 01:00 100 18 143/87 100 Mechanical Ventilator 45 01/10/17 00:00 97 01/10/17 00:00 45 01/10/17 00:00 98.8 91 15 107/56 99 Mechanical Ventilator 45 01/09/17 23:10 92 15 40 01/09/17 23:00 96 15 111/89 99 Mechanical Ventilator 45 01/09/17 22:00 97 15 131/56 99 Mechanical Ventilator 45 01/09/17 21:08 92 15 40 01/09/17 21:00 100 15 145/55 99 Mechanical Ventilator 45 01/09/17 20:00 98.3 111 17 155/56 99 Mechanical Ventilator 45 01/09/17 20:00 96 01/09/17 20:00 45 01/09/17 19:00 96 15 40 01/09/17 19:00 98 17 131/60 98 Mechanical Ventilator 45 01/09/17 18:00 100 17 126/51 100 Mechanical Ventilator 45 01/09/17 17:00 110 17 163/69 100 Mechanical Ventilator 45 01/09/17 16:44 112 15 40 01/09/17 16:00 45 01/09/17 16:00 98.5 104 17 156/79 100 Mechanical Ventilator 45 01/09/17 15:46 115 01/09/17 15:30 98.7 108 17 137/53 100 Mechanical Ventilator 45 01/09/17 15:21 110 15 40 01/09/17 15:00 98.7 116 17 148/51 100 Mechanical Ventilator 45 01/09/17 14:00 115 15 123/60 100 Mechanical Ventilator 45 01/09/17 13:27 95 16 40 01/09/17 13:00 107 15 111/60 100 Mechanical Ventilator 45 01/09/17 12:00 98.4 104 15 131/78 100 Mechanical Ventilator 45 01/09/17 12:00 108 01/09/17 12:00 45 01/09/17 11:24 124 16 40 01/09/17 11:00 118 15 133/72 100 Mechanical Ventilator 45 Status: awake Condition: critical HEENT: atraumatic, normocephalic Neck: full ROM Lungs: clear Heart: HR/BP stable, HR/BP unstable Abdomen: soft, non-tender, active bowel sounds Extremities: no C/C/E, edema Accucheck: 157 Critical Care - Subjective ROS Limited/Unobtainable: Yes ICU Day: 25 Intubation Day: s/p trach Condition: critical EKG Rhythm: Sinus Rhythm FI02: 45 Vent Support Breath Rate: 14 Vent Support Mode: AC Vent Tidal Volume: 500 Sputum Amount: Small PEEP: 5.0 PIP: 35 Secretions: small Tube Feeding Amount: 00 I&O: Intake and Output 01/09/17 01/10/17 19:00 07:00 Intake Total 490 ml 405 ml Output Total 875 ml 900 ml Balance -385 ml -495 ml Free Water 100 ml IV Total 110 ml 110 ml Tube Feeding 280 ml 175 ml Other 120 ml Output Urine Total 875 ml 900 ml # Bowel Movements 6 7 CXR: no change ET Position: 22 Labs: Laboratory Tests Test 01/09/17 22:20 01/10/17 04:00 01/10/17 09:48 White Blood Count 22.1 K/UL (4.8-10.8) *H 17.2 K/UL (4.8-10.8) H Red Blood Count 2.71 M/UL (4.20-5.40) L 2.50 M/UL (4.20-5.40) L Hemoglobin 8.5 G/DL (12.0-16.0) L 7.6 G/DL (12.0-16.0) L Hematocrit 25.2 % (37.0-47.0) L 22.5 % (37.0-47.0) L Mean Corpuscular Volume 93 FL (80-99) 90 FL (80-99) Mean Corpuscular Hemoglobin 31.5 PG (27.0-31.0) H 30.5 PG (27.0-31.0) Mean Corpuscular Hemoglobin Concent 33.9 G/DL (32.0-36.0) 33.8 G/DL (32.0-36.0) Red Cell Distribution Width 15.0 % (11.6-14.8) H 14.6 % (11.6-14.8) Platelet Count 255 K/UL (150-450) 252 K/UL (150-450) Mean Platelet Volume 7.6 FL (6.5-10.1) 9.3 FL (6.5-10.1) Neutrophils (%) (Auto) % (45.0-75.0) % (45.0-75.0) Lymphocytes (%) (Auto) % (20.0-45.0) % (20.0-45.0) Monocytes (%) (Auto) % (1.0-10.0) % (1.0-10.0) Eosinophils (%) (Auto) % (0.0-3.0) % (0.0-3.0) Basophils (%) (Auto) % (0.0-2.0) % (0.0-2.0) Differential Total Cells Counted 100 100 Neutrophils % (Manual) 87 % (45-75) H 91 % (45-75) H Lymphocytes % (Manual) 7 % (20-45) L 6 % (20-45) L Monocytes % (Manual) 5 % (1-10) 3 % (1-10) Eosinophils % (Manual) 0 % (0-3) 0 % (0-3) Basophils % (Manual) 1 % (0-2) 0 % (0-2) Band Neutrophils 0 % (0-8) 0 % (0-8) Platelet Estimate Adequate Adequate Platelet Morphology Normal Normal Hypochromasia 1+ 3+ Anisocytosis 1+ Spherocytes 2+ Prothrombin Time 13.2 SEC (9.30-11.50) H Prothromb Time International Ratio 1.3 (0.9-1.1) H Activated Partial Thromboplast Time 28 SEC (23-33) Sodium Level 151 mEQ/L (135-145) H Potassium Level 3.4 mEQ/L (3.4-4.9) Chloride Level 108 mEQ/L (98-107) H Carbon Dioxide Level 39 mEQ/L (20-30) H Anion Gap 4 (5-15) L Blood Urea Nitrogen 63 mg/dL (7-23) H Creatinine 0.7 mg/dL (0.5-0.9) Estimat Glomerular Filtration Rate > 60 mL/min (>60) Glucose Level 151 mg/dL (74-106) H Calcium Level 7.4 mg/dL (8.6-10.2) L Phosphorus Level 2.6 mg/dL (2.5-4.8) Magnesium Level 2.4 mg/dL (1.7-2.5) Total Bilirubin 0.7 mg/dL (0.0-1.2) Aspartate Amino Transf (AST/SGOT) 21 U/L (5-40) Alanine Aminotransferase (ALT/SGPT) 5 U/L (3-33) Alkaline Phosphatase 106 U/L (35-104) H Total Protein 4.8 g/dL (6.6-8.7) L Albumin 1.8 g/dL (3.5-5.2) L Globulin 3.0 g/dL Albumin/Globulin Ratio 0.6 (1.0-2.7) L Arterial Blood pH 7.520 (7.350-7.450) Arterial Blood Partial Pressure CO2 49.0 mmHg (35.0-45.0) H Arterial Blood Partial Pressure O2 98.0 mmHg (75.0-100.0) Arterial Blood HCO3 39.4 mmol/L (22.0-26.0) H Arterial Blood Oxygen Saturation 97.0 % (92.0-98.0) Arterial Blood Base Excess 15.0 TONY Velazquez January 10, 2017 10:10
--- NOTE | 2017-01-10 10:21 | Infectious Diseases Prog Note ---
Assessment/Plan Assessment/Plan ASSESSMENT: Fever, SP leukocytosis l improving ( probable due to GI bleed, pt has tarry stool ) Pancreatitis improving CT: Findings compatible with marked worsening of acute pancreatitis MRCP : Cholelithiasis. There is also a calculus within the duct adjacent to the gallbladder Pancreatic Enzymes improving CT of Abd : reviewed cholelithiasis : US of liver : Incidental finding of cholelithiasis and mild gallbladder wall thickening positive sonographic Diaz's sign LFT : Nl UTI : Mandy SCx : Mandy ( colonizer ) SP PEG 01/02 VDRF: SP trach 01/01 Cxray : Increase in bilateral congestive changes with persistent small right , probable new left pleural effusions ARF SP aortic stenosis mitral stenosis status post mitral valve replacement AFib Pulmonary hypertension PLAN: - cont on IV Merrem d# 8 / 14 , , oral Amoxi d# 4 / 7 ( 01/07 SP Zyvox d#5 and Flagyl d# 4 ) ( 12/28 SP Diflucan d# 10 ) ( 12/24 SP Merrem d# 14 /14 ) - monitor CBC, temperatures, - monitor LFT - GI f/u - Sx is following for possible Cholecystectomy later - VDRF - Dopamine ( renal dose ) - monitor Cx ( Bl ) - PRBC transfusion PRN - Colonoscopy today Subjective Allergies: Coded Allergies: No Known Allergies (Unverified , 09/28/14) Subjective on Vent Objective Vital Signs Last 24 Hour Vital Signs Date Time Temp Pulse Resp B/P Pulse Ox O2 Delivery O2 Flow Rate FiO2 01/10/17 10:00 45 01/10/17 10:00 94 18 123/43 98 Mechanical Ventilator 45 01/10/17 09:00 90 15 40 01/10/17 09:00 101 18 112/54 98 Mechanical Ventilator 45 01/10/17 08:00 98.1 105 20 131/67 100 Mechanical Ventilator 45 01/10/17 08:00 102 01/10/17 08:00 45 01/10/17 07:03 90 15 40 01/10/17 07:00 87 18 136/38 100 Mechanical Ventilator 45 01/10/17 06:00 85 15 135/48 100 Mechanical Ventilator 45 01/10/17 05:44 93 15 40 01/10/17 05:00 87 13 133/44 100 Mechanical Ventilator 45 01/10/17 04:00 45 5/4/17 04:00 94 5/4/17 04:00 98.3 93 15 130/63 100 Mechanical Ventilator 45 5/4/17 03:15 94 15 40 5/4/17 03:00 97 20 160/77 100 Mechanical Ventilator 45 5/4/17 02:00 95 11 139/56 100 Mechanical Ventilator 45 5/4/17 01:21 101 16 40 5/4/17 01:00 100 18 143/87 100 Mechanical Ventilator 45 5/4/17 00:00 97 5/4/17 00:00 45 5/4/17 00:00 98.8 91 15 107/56 99 Mechanical Ventilator 45 5/3/17 23:10 92 15 40 5/3/17 23:00 96 15 111/89 99 Mechanical Ventilator 45 5/3/17 22:00 97 15 131/56 99 Mechanical Ventilator 45 5/3/17 21:08 92 15 40 5/3/17 21:00 100 15 145/55 99 Mechanical Ventilator 45 5/3/17 20:00 98.3 111 17 155/56 99 Mechanical Ventilator 45 5/3/17 20:00 96 5/3/17 20:00 45 5/3/17 19:00 96 15 40 5/3/17 19:00 98 17 131/60 98 Mechanical Ventilator 45 5/3/17 18:00 100 17 126/51 100 Mechanical Ventilator 45 5/3/17 17:00 110 17 163/69 100 Mechanical Ventilator 45 5/3/17 16:44 112 15 40 5/3/17 16:00 45 5/3/17 16:00 98.5 104 17 156/79 100 Mechanical Ventilator 45 5/3/17 15:46 115 5/3/17 15:30 98.7 108 17 137/53 100 Mechanical Ventilator 45 5/3/17 15:21 110 15 40 5/3/17 15:00 98.7 116 17 148/51 100 Mechanical Ventilator 45 5/3/17 14:00 115 15 123/60 100 Mechanical Ventilator 45 5/3/17 13:27 95 16 40 5/3/17 13:00 107 15 111/60 100 Mechanical Ventilator 45 5/3/17 12:00 98.4 104 15 131/78 100 Mechanical Ventilator 45 5/3/17 12:00 108 5/3/17 12:00 45 5/3/17 11:24 124 16 40 5/3/17 11:00 118 15 133/72 100 Mechanical Ventilator 45 Height (Feet): 5 Height (Inches): 1.00 Weight (Pounds): 200 Respiratory/Chest: no respiratory distress Cardiovascular: regularly irregular Abdomen: no organomegaly Laboratory Tests Test 01/09/17 22:20 01/10/17 04:00 01/10/17 09:48 White Blood Count 22.1 K/UL (4.8-10.8) *H 17.2 K/UL (4.8-10.8) H Red Blood Count 2.71 M/UL (4.20-5.40) L 2.50 M/UL (4.20-5.40) L Hemoglobin 8.5 G/DL (12.0-16.0) L 7.6 G/DL (12.0-16.0) L Hematocrit 25.2 % (37.0-47.0) L 22.5 % (37.0-47.0) L Mean Corpuscular Volume 93 FL (80-99) 90 FL (80-99) Mean Corpuscular Hemoglobin 31.5 PG (27.0-31.0) H 30.5 PG (27.0-31.0) Mean Corpuscular Hemoglobin Concent 33.9 G/DL (32.0-36.0) 33.8 G/DL (32.0-36.0) Red Cell Distribution Width 15.0 % (11.6-14.8) H 14.6 % (11.6-14.8) Platelet Count 255 K/UL (150-450) 252 K/UL (150-450) Mean Platelet Volume 7.6 FL (6.5-10.1) 9.3 FL (6.5-10.1) Neutrophils (%) (Auto) % (45.0-75.0) % (45.0-75.0) Lymphocytes (%) (Auto) % (20.0-45.0) % (20.0-45.0) Monocytes (%) (Auto) % (1.0-10.0) % (1.0-10.0) Eosinophils (%) (Auto) % (0.0-3.0) % (0.0-3.0) Basophils (%) (Auto) % (0.0-2.0) % (0.0-2.0) Differential Total Cells Counted 100 100 Neutrophils % (Manual) 87 % (45-75) H 91 % (45-75) H Lymphocytes % (Manual) 7 % (20-45) L 6 % (20-45) L Monocytes % (Manual) 5 % (1-10) 3 % (1-10) Eosinophils % (Manual) 0 % (0-3) 0 % (0-3) Basophils % (Manual) 1 % (0-2) 0 % (0-2) Band Neutrophils 0 % (0-8) 0 % (0-8) Platelet Estimate Adequate Adequate Platelet Morphology Normal Normal Hypochromasia 1+ 3+ Anisocytosis 1+ Spherocytes 2+ Prothrombin Time 13.2 SEC (9.30-11.50) H Prothromb Time International Ratio 1.3 (0.9-1.1) H Activated Partial Thromboplast Time 28 SEC (23-33) Sodium Level 151 mEQ/L (135-145) H Potassium Level 3.4 mEQ/L (3.4-4.9) Chloride Level 108 mEQ/L (98-107) H Carbon Dioxide Level 39 mEQ/L (20-30) H Anion Gap 4 (5-15) L Blood Urea Nitrogen 63 mg/dL (7-23) H Creatinine 0.7 mg/dL (0.5-0.9) Estimat Glomerular Filtration Rate > 60 mL/min (>60) Glucose Level 151 mg/dL (74-106) H Calcium Level 7.4 mg/dL (8.6-10.2) L Phosphorus Level 2.6 mg/dL (2.5-4.8) Magnesium Level 2.4 mg/dL (1.7-2.5) Total Bilirubin 0.7 mg/dL (0.0-1.2) Aspartate Amino Transf (AST/SGOT) 21 U/L (5-40) Alanine Aminotransferase (ALT/SGPT) 5 U/L (3-33) Alkaline Phosphatase 106 U/L (35-104) H Total Protein 4.8 g/dL (6.6-8.7) L Albumin 1.8 g/dL (3.5-5.2) L Globulin 3.0 g/dL Albumin/Globulin Ratio 0.6 (1.0-2.7) L Arterial Blood pH 7.520 (7.350-7.450) Arterial Blood Partial Pressure CO2 49.0 mmHg (35.0-45.0) H Arterial Blood Partial Pressure O2 98.0 mmHg (75.0-100.0) Arterial Blood HCO3 39.4 mmol/L (22.0-26.0) H Arterial Blood Oxygen Saturation 97.0 % (92.0-98.0) Arterial Blood Base Excess 15.0 Ok Test Current Medications Medications (Trade) Dose Ordered Sig/Lisbeth Route PRN Reason Start Time Stop Time Status Last Admin Dose Admin Acetaminophen (Tylenol) 650 mg Q4H PRN ORAL fever 12/17/16 08:00 01/16/17 07:59 01/08/17 22:51 Allopurinol (Allopurinol) 300 mg DAILY GT 01/07/17 16:30 02/06/17 16:29 01/09/17 09:07 Amoxicillin (Amoxil) 500 mg EVERY 8 HOURS GT 01/07/17 15:00 01/14/17 14:59 01/10/17 06:06 Dextrose (Dextrose 50%) STAT PRN IV Hypoglycemia 12/17/16 07:30 01/16/17 07:29 Hydrocortisone (Anusol HC) 1 supp BIDPRN PRN RECTAL Anal discomfort/swelling/bleed 01/01/17 17:00 01/31/17 16:59 Hydrocortisone (Solu-CORTEF) 50 mg EVERY 12 HOURS IV 01/09/17 21:00 02/08/17 20:59 01/10/17 08:28 Insulin Aspart (NovoLOG) No Dose Q6HR SUBQ 12/17/16 12:00 01/16/17 11:59 01/10/17 06:08 Lorazepam (Ativan 2mg/ml 1ml) 1 mg Q4H PRN IV For Anxiety 01/05/17 10:00 01/12/17 09:59 01/09/17 06:35 Meropenem/Sodium Chloride (Merrem/Sodium Chloride) 110 ml @ 220 mls/hr Q12HR@0200,1400 IVPB 01/07/17 14:00 01/16/17 13:59 01/10/17 01:34 Metoclopramide HCl (Reglan) 10 mg Q6H IVP 01/06/17 18:00 02/05/17 17:59 01/10/17 06:07 Morphine Sulfate (Morphine Sulfate) 4 mg Q4H PRN IVP PAIN 4-10 01/07/17 11:45 01/14/17 11:44 01/10/17 03:58 Ondansetron HCl (Zofran) 4 mg EVERY 4 HOURS PRN IVP Nausea & Vomiting 01/03/17 07:00 02/02/17 06:59 01/07/17 18:31 Pantoprazole 40 mg 40 mg EVERY 12 HOURS IVP 01/06/17 21:00 02/05/17 20:59 01/10/17 08:28 Temazepam (Restoril) 15 mg HSPRN PRN GT Insomnia 01/03/17 21:00 01/10/17 20:59 01/09/17 22:12 OSCAR ANDERSON M.D. January 10, 2017 10:21
--- NOTE | 2017-01-10 10:27 | Pre-Procedure Note/Attestation ---
Pre-Procedure Note/Attestation Complete Prior to Procedure Planned Procedure: not applicable Procedure Narrative: colonoscopy Indications for Procedure Pre-Operative Diagnosis: GIB Attestation I attest that I discussed the nature of the procedure; its benefits; risks and complications; and alternatives (and the risks and benefits of such alternatives ), prior to the procedure, with the patient (or the patient's legal personal service representative). I attest that, if there was a reasonable possibility of needing a blood transfusion, the patient (or the patient's legal personal service representative) was given the [facility] standardized written summary, pursuant to the [place] Blood Safety Act ([place] Health and Safety Code # 1645, as amended). I attest that I re-evaluated the patient just prior to the surgery and that there has been no change in the patient's H&P, except as documented below: BRAD NGUYEN January 10, 2017 10:27
--- NOTE | 2017-01-10 11:20 | General Progress Note ---
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 on anticoagulation Pulmonary HTN HypoAlbuminemia ARDS Plan: Due colonoscopy Onallopurinol and K supplement as needed reglan to IV Hydrocortisone IV Fluid challenge Keep bp above 100 syst by adjusting BP meds Optimize cardiac status K supplement as needed Adjust pulmonary status- Per GI / Surgery Avoid nephrotoxics monitor renal parameters Subjective ROS Limited/Unobtainable: Yes Allergies: Coded Allergies: No Known Allergies (Unverified , 09/28/14) Objective Last 24 Hour Vital Signs Date Time Temp Pulse Resp B/P Pulse Ox O2 Delivery O2 Flow Rate FiO2 01/10/17 11:00 91 14 40 01/10/17 11:00 96 18 145/54 99 Mechanical Ventilator 45 01/10/17 10:00 45 01/10/17 10:00 94 18 123/43 98 Mechanical Ventilator 45 01/10/17 09:00 90 15 40 01/10/17 09:00 101 18 112/54 98 Mechanical Ventilator 45 01/10/17 08:00 98.1 105 20 131/67 100 Mechanical Ventilator 45 01/10/17 08:00 102 01/10/17 08:00 45 01/10/17 07:03 90 15 40 01/10/17 07:00 87 18 136/38 100 Mechanical Ventilator 45 01/10/17 06:00 85 15 135/48 100 Mechanical Ventilator 45 01/10/17 05:44 93 15 40 01/10/17 05:00 87 13 133/44 100 Mechanical Ventilator 45 01/10/17 04:00 45 01/10/17 04:00 94 01/10/17 04:00 98.3 93 15 130/63 100 Mechanical Ventilator 45 01/10/17 03:15 94 15 40 01/10/17 03:00 97 20 160/77 100 Mechanical Ventilator 45 01/10/17 02:00 95 11 139/56 100 Mechanical Ventilator 45 01/10/17 01:21 101 16 40 01/10/17 01:00 100 18 143/87 100 Mechanical Ventilator 45 01/10/17 00:00 97 01/10/17 00:00 45 01/10/17 00:00 98.8 91 15 107/56 99 Mechanical Ventilator 45 01/09/17 23:10 92 15 40 01/09/17 23:00 96 15 111/89 99 Mechanical Ventilator 45 01/09/17 22:00 97 15 131/56 99 Mechanical Ventilator 45 01/09/17 21:08 92 15 40 01/09/17 21:00 100 15 145/55 99 Mechanical Ventilator 45 01/09/17 20:00 98.3 111 17 155/56 99 Mechanical Ventilator 45 01/09/17 20:00 96 01/09/17 20:00 45 01/09/17 19:00 96 15 40 01/09/17 19:00 98 17 131/60 98 Mechanical Ventilator 45 01/09/17 18:00 100 17 126/51 100 Mechanical Ventilator 45 01/09/17 17:00 110 17 163/69 100 Mechanical Ventilator 45 01/09/17 16:44 112 15 40 01/09/17 16:00 45 01/09/17 16:00 98.5 104 17 156/79 100 Mechanical Ventilator 45 01/09/17 15:46 115 01/09/17 15:30 98.7 108 17 137/53 100 Mechanical Ventilator 45 01/09/17 15:21 110 15 40 01/09/17 15:00 98.7 116 17 148/51 100 Mechanical Ventilator 45 01/09/17 14:00 115 15 123/60 100 Mechanical Ventilator 45 01/09/17 13:27 95 16 40 01/09/17 13:00 107 15 111/60 100 Mechanical Ventilator 45 01/09/17 12:00 98.4 104 15 131/78 100 Mechanical Ventilator 45 01/09/17 12:00 108 01/09/17 12:00 45 01/09/17 11:24 124 16 40 Intake and Output 01/09/17 01/10/17 19:00 07:00 Intake Total 490 ml 405 ml Output Total 875 ml 900 ml Balance -385 ml -495 ml Free Water 100 ml IV Total 110 ml 110 ml Tube Feeding 280 ml 175 ml Other 120 ml Output Urine Total 875 ml 900 ml # Bowel Movements 6 7 Laboratory Tests 01/09/17 22:20: White Blood Count 22.1*H, Red Blood Count 2.71L, Hemoglobin 8.5L, Hematocrit 25.2L, Mean Corpuscular Volume 93, Mean Corpuscular Hemoglobin 31.5H, Mean Corpuscular Hemoglobin Concent 33.9, Red Cell Distribution Width 15.0H, Platelet Count 255, Mean Platelet Volume 7.6, Neutrophils (%) (Auto) , Lymphocytes (%) (Auto) , Monocytes (%) (Auto) , Eosinophils (%) (Auto) , Basophils (%) (Auto) , Differential Total Cells Counted 100, Neutrophils % ( Manual) 87H, Lymphocytes % (Manual) 7L, Monocytes % (Manual) 5, Eosinophils % ( Manual) 0, Basophils % (Manual) 1, Band Neutrophils 0, Platelet Estimate Adequate, Platelet Morphology Normal, Hypochromasia 1+, Anisocytosis 1+ 01/10/17 04:00: White Blood Count 17.2H, Red Blood Count 2.50L, Hemoglobin 7.6L, Hematocrit 22.5L, Mean Corpuscular Volume 90, Mean Corpuscular Hemoglobin 30.5, Mean Corpuscular Hemoglobin Concent 33.8, Red Cell Distribution Width 14.6, Platelet Count 252, Mean Platelet Volume 9.3, Neutrophils (%) (Auto) , Lymphocytes (%) ( Auto) , Monocytes (%) (Auto) , Eosinophils (%) (Auto) , Basophils (%) (Auto) , Differential Total Cells Counted 100, Neutrophils % (Manual) 91H, Lymphocytes % (Manual) 6L, Monocytes % (Manual) 3, Eosinophils % (Manual) 0, Basophils % ( Manual) 0, Band Neutrophils 0, Platelet Estimate Adequate, Platelet Morphology Normal, Hypochromasia 3+, Spherocytes 2+, Prothrombin Time 13.2H, Prothromb Time International Ratio 1.3H, Activated Partial Thromboplast Time 28, Sodium Level 151H, Potassium Level 3.4, Chloride Level 108H, Carbon Dioxide Level 39H, Anion Gap 4L, Blood Urea Nitrogen 63H, Creatinine 0.7, Estimat Glomerular Filtration Rate > 60, Glucose Level 151H, Calcium Level 7.4L, Phosphorus Level 2.6, Magnesium Level 2.4, Total Bilirubin 0.7, Aspartate Amino Transf (AST/SGOT ) 21, Alanine Aminotransferase (ALT/SGPT) 5, Alkaline Phosphatase 106H, Total Protein 4.8L, Albumin 1.8L, Globulin 3.0, Albumin/Globulin Ratio 0.6L 01/10/17 09:48: Arterial Blood pH 7.520H, Arterial Blood Partial Pressure CO2 49.0H, Arterial Blood Partial Pressure O2 98.0, Arterial Blood HCO3 39.4H, Arterial Blood Oxygen Saturation 97.0, Arterial Blood Base Excess 15.0, Ok Test Height (Feet): 5 Height (Inches): 1.00 Weight (Pounds): 200 General Appearance: lethargic, mild distress Respiratory/Chest: decreased breath sounds Abdomen: distended Objective other PE not changed KAMINI SNOW January 10, 2017 11:20
--- NOTE | 2017-01-10 11:28 | Diagnostic Imaging Report ---
Indications: DYSPNEA Technique: Portable AP chest Findings: Comparison: By 2016 Cardiomegaly, diffuse bilateral mixed interstitial and alveolar lung opacities, left lung base subsegmental atelectasis versus scarring persists, unchanged. Lines and tubes remain in place. No new abnormality identified. IMPRESSION: Stable bilateral pulmonary infiltrates, left basal subsegmental atelectasis versus scarring No new abnormality
--- NOTE | 2017-01-10 11:59 | Immediate Post-Op Evaluation ---
Immediate Post-Op Evalulation Immediate Post-Op Evalulation Procedure: colonoscopy Date of Evaluation: January 10, 2017 Time of Evaluation: 11:58 IV Fluids: 100 Blood Pressure Systolic: 124 Blood Pressure Diastolic: 51 Pulse Rate: 96 Respiratory Rate: 14 O2 Sat by Pulse Oximetry: 100 Nausea: No Vomiting: No Complications none Patient Status: awake, reacts, ventilated - trached and ventilated on 45% 14 500 5 Hydration Status: adequate Drug: none KINGS MONZON CRNA January 10, 2017 11:59
--- NOTE | 2017-01-10 12:02 | Endoscopy Procedure Note ---
Endoscopy Procedure Note Indication for Procedure: gib Procedures Performed: colonoscopy Operative Findings/Diagnosis: ischemic colitis Specimen: yes Pt Tolerated Procedure Well: Yes Estimated Blood Loss: none Anesthesiologist: shena Anesthesia: MAC Implant(s) used?: No 50 yrs or older w/o bx or poly: Not Applicable 10yrs. F/U not recommended: Not Applicable BRAD NGUYEN January 10, 2017 12:02
--- NOTE | 2017-01-10 12:09 | Anethesia Preoperative Eval ---
Anesthesia Pre-op PMH/ROS General Date of Evaluation: January 10, 2017 Time of Evaluation: 11:40 Anesthesiologist: denise ASA Score: ASA 4 Mallampati Score Class I : Soft palate, uvula, fauces, pillars visible Class II: Soft palate, uvula, fauces visible Class III: Soft palate, base of uvula visible Class IV: Only hard plate visible Mallampati Classification: Class III Surgeon: naye Diagnosis: Anemia Surgical Procedure: Colonoscopy Anesthesia History: none Family History: no anesthesia problems Allergies: Coded Allergies: No Known Allergies (Unverified , 09/28/14) Medications: see eMAR Past Medical History Cardiovascular: Reports: HTN, arrhythmia - afib 90-100, valve dz Pulmonary: Reports: other - Resp failure/ ARDS/S/P trached Gastrointestinal/Genitourinary: Reports: CRI, other - pancretitis Hematology/Immune: Reports: anemia, bleeding disorder - Inc INR Musculoskeletal/Integumentary: Denies: DDD, DJD, OA, RA, edema, other Other: obesity PMH Narrative: Hypotension High A1c Sepsis / Pancreatitis / Gall stones Atrial Fib High INR s/ 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 Exam Physician Exam Last Vital Signs Date Time Temp Pulse Resp B/P Pulse Ox O2 Delivery O2 Flow Rate FiO2 01/10/17 11:59 96 14 100 01/10/17 11:00 40 01/10/17 11:00 145/54 Mechanical Ventilator 01/10/17 08:00 98.1 Constitutional: NAD Neurologic: other - responds to name Cardiovascular: other - Afib Respiratory: other - diminished Gastrointestinal: other - distended Airway Exam Mallampati Score: Class III MO: limited Neck: thick ROM: limited Dentures: no lower, no upper Anesthesia Pre-op A/P Labs Hematology Test 01/09/17 22:20 01/10/17 04:00 White Blood Count 22.1 K/UL (4.8-10.8) *H 17.2 K/UL (4.8-10.8) H Red Blood Count 2.71 M/UL (4.20-5.40) L 2.50 M/UL (4.20-5.40) L Hemoglobin 8.5 G/DL (12.0-16.0) L 7.6 G/DL (12.0-16.0) L Hematocrit 25.2 % (37.0-47.0) L 22.5 % (37.0-47.0) L Mean Corpuscular Volume 93 FL (80-99) 90 FL (80-99) Mean Corpuscular Hemoglobin 31.5 PG (27.0-31.0) H 30.5 PG (27.0-31.0) Mean Corpuscular Hemoglobin Concent 33.9 G/DL (32.0-36.0) 33.8 G/DL (32.0-36.0) Red Cell Distribution Width 15.0 % (11.6-14.8) H 14.6 % (11.6-14.8) Platelet Count 255 K/UL (150-450) 252 K/UL (150-450) Mean Platelet Volume 7.6 FL (6.5-10.1) 9.3 FL (6.5-10.1) Neutrophils (%) (Auto) % (45.0-75.0) % (45.0-75.0) Lymphocytes (%) (Auto) % (20.0-45.0) % (20.0-45.0) Monocytes (%) (Auto) % (1.0-10.0) % (1.0-10.0) Eosinophils (%) (Auto) % (0.0-3.0) % (0.0-3.0) Basophils (%) (Auto) % (0.0-2.0) % (0.0-2.0) Differential Total Cells Counted 100 100 Neutrophils % (Manual) 87 % (45-75) H 91 % (45-75) H Lymphocytes % (Manual) 7 % (20-45) L 6 % (20-45) L Monocytes % (Manual) 5 % (1-10) 3 % (1-10) Eosinophils % (Manual) 0 % (0-3) 0 % (0-3) Basophils % (Manual) 1 % (0-2) 0 % (0-2) Band Neutrophils 0 % (0-8) 0 % (0-8) Platelet Estimate Adequate Adequate Platelet Morphology Normal Normal Hypochromasia 1+ 3+ Anisocytosis 1+ Spherocytes 2+ Coagulation Test 01/10/17 04:00 Prothrombin Time 13.2 SEC (9.30-11.50) H Prothromb Time International Ratio 1.3 (0.9-1.1) H Activated Partial Thromboplast Time 28 SEC (23-33) Chemistry Test 01/10/17 04:00 Sodium Level 151 mEQ/L (135-145) H Potassium Level 3.4 mEQ/L (3.4-4.9) Chloride Level 108 mEQ/L (98-107) H Carbon Dioxide Level 39 mEQ/L (20-30) H Anion Gap 4 (5-15) L Blood Urea Nitrogen 63 mg/dL (7-23) H Creatinine 0.7 mg/dL (0.5-0.9) Estimat Glomerular Filtration Rate > 60 mL/min (>60) Glucose Level 151 mg/dL (74-106) H Calcium Level 7.4 mg/dL (8.6-10.2) L Phosphorus Level 2.6 mg/dL (2.5-4.8) Magnesium Level 2.4 mg/dL (1.7-2.5) Total Bilirubin 0.7 mg/dL (0.0-1.2) Aspartate Amino Transf (AST/SGOT) 21 U/L (5-40) Alanine Aminotransferase (ALT/SGPT) 5 U/L (3-33) Alkaline Phosphatase 106 U/L (35-104) H Total Protein 4.8 g/dL (6.6-8.7) L Albumin 1.8 g/dL (3.5-5.2) L Globulin 3.0 g/dL Albumin/Globulin Ratio 0.6 (1.0-2.7) L Studies Pre-op Studies: EKG - Afib - Hr 90s Risk Assessment & Plan Plan: mac Status Change Before Surgery: No Pre-Antibiotics Drug: none KINGS MONZON CRNA January 10, 2017 12:09
--- NOTE | 2017-01-10 12:12 | 48 Hour Post Anesthesia Eval ---
Post Anesthesia Evaluation Procedure: colonoscopy Date of Evaluation: January 10, 2017 Time of Evaluation: 12:11 Blood Pressure Systolic: 124 0: 70 Pulse Rate: 74 Respiratory Rate: 14 O2 Sat by Pulse Oximetry: 99 Airway: other - mech ventilated via trach Nausea: No Vomiting: No Hydration Status: adequate Mental Status/LOC: patient returned to baseline Post-Anesthesia Complications: none Follow-up care needed: N/A KINGS MONZON CRNA January 10, 2017 12:12
[2017-01-10] MEDS ORDERED: NS 275ml ONE (15:25)
[2017-01-10] MEDS ORDERED: Tubing Blood Filter IV ONE (15:25)
[2017-01-10] MEDS ORDERED: Tubing Ominiflow Primary IV ONE (15:25)
--- NOTE | 2017-01-10 18:08 | Procedure Note ---
DATE OF PROCEDURE: 01/10/2017 SURGEON: Ortega Gipson M.D. PROCEDURE: Colonoscopy with biopsy. ANESTHESIA: Per LABOR RELATIONS ANALYST, Sherronjose Bo. INSTRUMENT: Olympus adult flexible colonoscope. INDICATION: Rectal bleeding. REASON FOR PROCEDURE: The procedure, risks, benefits, and possible consequences, including hemorrhage, aspiration, perforation and infection, and alternative treatments, were explained to the patient/legal guardian by Dr. Ortega Gipson and the patient/legal guardian understood and accepted these risks. DESCRIPTION OF PROCEDURE: After informed consent was obtained and the patient was adequately sedated, first rectal exam was performed, which shows normal. Then, the scope was advanced from the rectum into the cecum documented by appendiceal orifice, ileocecal valve, and right upper quadrant palpation. Quality of prep was very good. The patient had evidence of ischemic colitis, very friable tissue at about 30 cm from the anal verge most probably in the sigmoid colon. Biopsy from this area was obtained. Again, the tissue in this area was very friable. This was a short-segment and measured roughly about 2 to 3 cm, but even the biopsy has caused bleeding. Retroflexion of the rectum showed also some medium-sized nonbleeding internal hemorrhoids. SUMMARY OF FINDINGS: 1. An area of inflammation, friable tissue at about 30 cm from the anal verge in the sigmoid colon roughly expandable 2 to 3 cm, highly suspicious for ischemic colitis status post biopsy. 2. Internal hemorrhoids. RECOMMENDATIONS: We will start tube feeding. Of course, the patient is the best to be off of anticoagulation given the friability of this area and bleeding, but this is like a Catch-22. In one hand, the patient has mechanical that needs to be treated and on the other hand, she has bleeding. We will discuss with the Cardiology, Dr. Ortiz to see what the best plan of the management for this patient. Ortega Gipson M.D. DR: MADELINE JOB#: [id number] CC:
[2017-01-10] MEDS ORDERED: Heparin 5000 units/ml inj IV ONE (19:00)
[2017-01-10] MEDS ORDERED: Heparin 25,000u/D5W 500ml 500 ML IV SCH (19:01)
--- NOTE | 2017-01-10 20:18 | Cardiology Progress Note ---
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 mitral valve prosthesis on anticoagulation perm afib on anticoagulation with Coumadin coagulopathy now elevated due to med interaction adn disease process leukocytosis ARF intra abd hematomas brbpr anemia s/p transfucion hypernatremia anasarca ischemic colitis ct performed 01/07/2017 some pulm and effusion finding hematoma decreased, bp seem ok cr is normal heparin drip for mechanical mv resumed d/w dr yancey finding of colonospcy we decided to resuem heparin and wee what happens she has been off of heparin for 36-40 hour so far d/w dtr seems holly mobilizing her fluid spont now uo of 100-125 cc /hour na is higher Subjective ROS Limited/Unobtainable: Yes Cardiovascular: Denies: chest pain, lightheadedness Respiratory: Denies: shortness of breath Gastrointestinal/Abdominal: Denies: abdominal pain Genitourinary: Denies: burning Subjective on the vent ,s/p trach Objective Last 24 Hour Vital Signs Date Time Temp Pulse Resp B/P Pulse Ox O2 Delivery O2 Flow Rate FiO2 01/10/17 20:00 97.8 104 19 155/87 99 Mechanical Ventilator 40 01/10/17 20:00 40 01/10/17 19:11 111 16 40 01/10/17 19:00 112 15 150/55 100 Mechanical Ventilator 45 01/10/17 18:00 102 14 142/42 99 Mechanical Ventilator 45 01/10/17 17:18 107 14 40 01/10/17 17:00 89 14 150/46 99 Mechanical Ventilator 45 01/10/17 16:00 98 01/10/17 16:00 45 01/10/17 16:00 97.6 98 19 148/35 99 Mechanical Ventilator 45 01/10/17 15:00 98 19 146/44 99 Mechanical Ventilator 45 01/10/17 14:33 81 14 40 01/10/17 14:00 96 19 144/52 100 Mechanical Ventilator 45 01/10/17 13:00 97 18 154/44 99 Mechanical Ventilator 45 01/10/17 12:47 106 14 40 01/10/17 12:12 74 14 99 01/10/17 12:00 112 01/10/17 12:00 97.9 93 18 143/49 99 Mechanical Ventilator 45 01/10/17 11:59 96 14 100 01/10/17 11:00 91 14 40 01/10/17 11:00 96 18 145/54 99 Mechanical Ventilator 45 01/10/17 10:00 45 01/10/17 10:00 94 18 123/43 98 Mechanical Ventilator 45 01/10/17 09:00 90 15 40 01/10/17 09:00 101 18 112/54 98 Mechanical Ventilator 45 01/10/17 08:00 98.1 105 20 131/67 100 Mechanical Ventilator 45 01/10/17 08:00 102 01/10/17 08:00 45 01/10/17 07:03 90 15 40 01/10/17 07:00 87 18 136/38 100 Mechanical Ventilator 45 01/10/17 06:00 85 15 135/48 100 Mechanical Ventilator 45 01/10/17 05:44 93 15 40 01/10/17 05:00 87 13 133/44 100 Mechanical Ventilator 45 01/10/17 04:00 45 01/10/17 04:00 94 01/10/17 04:00 98.3 93 15 130/63 100 Mechanical Ventilator 45 01/10/17 03:15 94 15 40 01/10/17 03:00 97 20 160/77 100 Mechanical Ventilator 45 01/10/17 02:00 95 11 139/56 100 Mechanical Ventilator 45 01/10/17 01:21 101 16 40 01/10/17 01:00 100 18 143/87 100 Mechanical Ventilator 45 01/10/17 00:00 97 01/10/17 00:00 45 01/10/17 00:00 98.8 91 15 107/56 99 Mechanical Ventilator 45 01/09/17 23:10 92 15 40 01/09/17 23:00 96 15 111/89 99 Mechanical Ventilator 45 01/09/17 22:00 97 15 131/56 99 Mechanical Ventilator 45 01/09/17 21:08 92 15 40 01/09/17 21:00 100 15 145/55 99 Mechanical Ventilator 45 General Appearance: alert, on vent Cardiovascular: irregularly irregular, other - mechanical Respiratory/Chest: lungs clear Abdomen: normal bowel sounds, non tender, soft Extremities: moderate edema Intake and Output 01/09/17 01/10/17 19:00 07:00 Intake Total 490 ml 405 ml Output Total 875 ml 900 ml Balance -385 ml -495 ml Free Water 100 ml IV Total 110 ml 110 ml Tube Feeding 280 ml 175 ml Other 120 ml Output Urine Total 875 ml 900 ml # Bowel Movements 6 7 Laboratory Tests Test 01/09/17 22:20 01/10/17 04:00 01/10/17 09:48 01/10/17 17:05 White Blood Count 22.1 K/UL (4.8-10.8) *H 17.2 K/UL (4.8-10.8) H Red Blood Count 2.71 M/UL (4.20-5.40) L 2.50 M/UL (4.20-5.40) L Hemoglobin 8.5 G/DL (12.0-16.0) L 7.6 G/DL (12.0-16.0) L Hematocrit 25.2 % (37.0-47.0) L 22.5 % (37.0-47.0) L Mean Corpuscular Volume 93 FL (80-99) 90 FL (80-99) Mean Corpuscular Hemoglobin 31.5 PG (27.0-31.0) H 30.5 PG (27.0-31.0) Mean Corpuscular Hemoglobin Concent 33.9 G/DL (32.0-36.0) 33.8 G/DL (32.0-36.0) Red Cell Distribution Width 15.0 % (11.6-14.8) H 14.6 % (11.6-14.8) Platelet Count 255 K/UL (150-450) 252 K/UL (150-450) Mean Platelet Volume 7.6 FL (6.5-10.1) 9.3 FL (6.5-10.1) Neutrophils (%) (Auto) % (45.0-75.0) % (45.0-75.0) Lymphocytes (%) (Auto) % (20.0-45.0) % (20.0-45.0) Monocytes (%) (Auto) % (1.0-10.0) % (1.0-10.0) Eosinophils (%) (Auto) % (0.0-3.0) % (0.0-3.0) Basophils (%) (Auto) % (0.0-2.0) % (0.0-2.0) Differential Total Cells Counted 100 100 Neutrophils % (Manual) 87 % (45-75) H 91 % (45-75) H Lymphocytes % (Manual) 7 % (20-45) L 6 % (20-45) L Monocytes % (Manual) 5 % (1-10) 3 % (1-10) Eosinophils % (Manual) 0 % (0-3) 0 % (0-3) Basophils % (Manual) 1 % (0-2) 0 % (0-2) Band Neutrophils 0 % (0-8) 0 % (0-8) Platelet Estimate Adequate Adequate Platelet Morphology Normal Normal Hypochromasia 1+ 3+ Anisocytosis 1+ Spherocytes 2+ Prothrombin Time 13.2 SEC (9.30-11.50) H Prothromb Time International Ratio 1.3 (0.9-1.1) H Activated Partial Thromboplast Time 28 SEC (23-33) 26 SEC (23-33) Sodium Level 151 mEQ/L (135-145) H Potassium Level 3.4 mEQ/L (3.4-4.9) Chloride Level 108 mEQ/L (98-107) H Carbon Dioxide Level 39 mEQ/L (20-30) H Anion Gap 4 (5-15) L Blood Urea Nitrogen 63 mg/dL (7-23) H Creatinine 0.7 mg/dL (0.5-0.9) Estimat Glomerular Filtration Rate > 60 mL/min (>60) Glucose Level 151 mg/dL (74-106) H Calcium Level 7.4 mg/dL (8.6-10.2) L Phosphorus Level 2.6 mg/dL (2.5-4.8) Magnesium Level 2.4 mg/dL (1.7-2.5) Total Bilirubin 0.7 mg/dL (0.0-1.2) Aspartate Amino Transf (AST/SGOT) 21 U/L (5-40) Alanine Aminotransferase (ALT/SGPT) 5 U/L (3-33) Alkaline Phosphatase 106 U/L (35-104) H Total Protein 4.8 g/dL (6.6-8.7) L Albumin 1.8 g/dL (3.5-5.2) L Globulin 3.0 g/dL Albumin/Globulin Ratio 0.6 (1.0-2.7) L Arterial Blood pH 7.520 (7.350-7.450) Arterial Blood Partial Pressure CO2 49.0 mmHg (35.0-45.0) H Arterial Blood Partial Pressure O2 98.0 mmHg (75.0-100.0) Arterial Blood HCO3 39.4 mmol/L (22.0-26.0) H Arterial Blood Oxygen Saturation 97.0 % (92.0-98.0) Arterial Blood Base Excess 15.0 Ok Test ANNE RAM January 10, 2017 20:18
[2017-01-10] MEDS: LORazepam Inj 2mg/ml 1ml IV PRN (23:41)
[2017-01-11] VITALS (24 sets, daily range): BP systolic 122–159; BP diastolic 33–90
[2017-01-11 01:34] LABS: INR 1.3 (0.9-1.1); PROTHROMBIN TIME 13.3 SEC (9.30-11.50)
[2017-01-11] MEDS: Meropenem 1gm/NS 110ml IVPB SCH ×4 (01:39→13:52)
[2017-01-11] MEDS ORDERED: Heparin 25,000u/D5W 500ml 500 ML IV SCH (01:55)
[2017-01-11] MEDS: Amoxicillin 250mg/5ml susp GT SCH ×3 (05:39→22:37)
[2017-01-11] MEDS: Metoclopramide 10mg/2ml Inj IVP SCH ×4 (05:39→23:56)
[2017-01-11] MEDS: NovoLOG Insulin Flexpen SUBQ SCH ×3 (05:54→18:10)
[2017-01-11 08:55] LABS: BASOPHILS % (AUTO) 0.4 % (0.0-2.0); EOSINOPHILS % (AUTO) 0.2 % (0.0-3.0); LYMPHOCYTES % (AUTO) 8.1 % (20.0-45.0); MEAN CORPUSCULAR HEMOGLOBIN 29.9 PG (27.0-31.0); MEAN CORPUSCULAR HGB CONC 32.7 G/DL (32.0-36.0); MEAN CORPUSCULAR VOLUME 91 FL (80-99); MEAN PLATELET VOLUME 7.8 FL (6.5-10.1); MONOCYTES % (AUTO) 7.7 % (1.0-10.0); NEUTROPHILS % (AUTO) 83.7 % (45.0-75.0); PLATELET COUNT 285 K/UL (150-450); RED BLOOD COUNT 3.11 M/UL (4.20-5.40); RED CELL DISTRIBUTION WIDTH 14.2 % (11.6-14.8); WHITE BLOOD COUNT 16.1 K/UL (4.8-10.8)
[2017-01-11] MEDS: Pantoprazole Inj IVP SCH (09:15)
[2017-01-11] MEDS: Hydrocortisone 100mg Inj IV SCH ×2 (09:15→21:12)
[2017-01-11 09:23] LABS: ALANINE AMINOTRANSFERASE 6 U/L (3-33); ALBUMIN/GLOBULIN RATIO 0.5 (1.0-2.7); ANION GAP 7 (5-15); ASPARTATE AMINO TRANSFERASE 29 U/L (5-40); CARBON DIOXIDE 38 mEQ/L (20-30); CHLORIDE 112 mEQ/L (98-107); CREATININE 0.6 mg/dL (0.5-0.9); GLOMERULAR FILTRATION RATE > 60 mL/min (>60); HEMOLYSIS 0; MAGNESIUM 2.4 mg/dL (1.7-2.5); PHOSPHORUS 2.9 mg/dL (2.5-4.8); POTASSIUM 3.6 mEQ/L (3.4-4.9); SODIUM 157 mEQ/L (135-145); TOTAL PROTEIN 5.7 g/dL (6.6-8.7)
[2017-01-11 09:25] LABS: INR 1.3 (0.9-1.1); PROTHROMBIN TIME 13.2 SEC (9.30-11.50)
[2017-01-11 09:39] LABS: AMYLASE 136 U/L (10-110)
[2017-01-11 09:40] LABS: LIPASE 63 U/L (< 60)
[2017-01-11] MEDS: Heparin 25,000u/D5W 500ml 500 ML IV SCH ×2 (09:55→13:40)
--- NOTE | 2017-01-11 10:33 | Pulmonolgy Critical Care Note ---
Critical Care - Asmt/Plan Problems: (1) Respiratory failure requiring intubation (2) Sepsis (3) Pancreatitis (4) Lower GI bleed (5) Anemia (6) Atrial fibrillation (7) ATN (acute tubular necrosis) Respiratory: monitor respiratory rate, adjust FIO2 Cardiac: continue to monitor HR/BP Renal: F/U I&O, keep IV fluid, check electrolytes Infectious Disease: check cultures, continue antibiotics Gastrointestinal: continue feedings/current rate Endocrine: monitor blood sugar, check TSH, check HgA1C, continue sliding scale insulin Hematologic: monitor H/H, transfuse if hgb<8.5 Neurologic: PRN Ativan, PRN Morphine, keep patient comfortable Disposition: keep in ICU Time Spent (Minutes): 40 Notes Reviewed: cardio, 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 with: nurses, consultants, 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 - Objective Last 24 Hour Vital Signs Date Time Temp Pulse Resp B/P Pulse Ox O2 Delivery O2 Flow Rate FiO2 01/11/17 10:00 103 18 143/46 100 Mechanical Ventilator 40 01/11/17 09:29 97 14 40 01/11/17 09:00 98 18 132/45 100 Mechanical Ventilator 40 01/11/17 08:00 99 01/11/17 08:00 40 01/11/17 08:00 40 01/11/17 08:00 97.8 99 18 129/54 100 Mechanical Ventilator 40 01/11/17 07:02 106 17 40 01/11/17 07:00 98 18 122/90 100 Mechanical Ventilator 40 01/11/17 06:00 92 17 144/57 100 Mechanical Ventilator 40 01/11/17 05:15 110 18 40 01/11/17 05:00 95 17 143/74 100 Mechanical Ventilator 40 01/11/17 04:00 40 01/11/17 04:00 91 01/11/17 04:00 97.9 98 17 151/68 100 Mechanical Ventilator 40 01/11/17 03:26 93 14 40 01/11/17 03:00 100 17 136/58 100 Mechanical Ventilator 40 01/11/17 02:00 104 21 148/38 100 Mechanical Ventilator 40 01/11/17 01:34 111 15 40 01/11/17 01:00 106 21 154/57 99 Mechanical Ventilator 40 01/11/17 00:00 95 01/11/17 00:00 97.3 99 17 123/52 99 Mechanical Ventilator 40 01/11/17 00:00 40 01/10/17 23:21 107 16 40 01/10/17 23:00 100 16 137/41 100 Mechanical Ventilator 40 01/10/17 22:00 91 16 122/43 100 Mechanical Ventilator 40 01/10/17 21:12 118 15 40 01/10/17 21:00 114 15 143/57 100 Mechanical Ventilator 40 01/10/17 20:00 110 01/10/17 20:00 97.8 104 19 155/87 99 Mechanical Ventilator 40 01/10/17 20:00 40 01/10/17 19:11 111 16 40 01/10/17 19:00 112 15 150/55 100 Mechanical Ventilator 45 01/10/17 18:00 102 14 142/42 99 Mechanical Ventilator 45 01/10/17 17:18 107 14 40 01/10/17 17:00 89 14 150/46 99 Mechanical Ventilator 45 01/10/17 16:00 98 01/10/17 16:00 45 01/10/17 16:00 97.6 98 19 148/35 99 Mechanical Ventilator 45 01/10/17 15:00 98 19 146/44 99 Mechanical Ventilator 45 01/10/17 14:33 81 14 40 01/10/17 14:00 96 19 144/52 100 Mechanical Ventilator 45 01/10/17 13:00 97 18 154/44 99 Mechanical Ventilator 45 01/10/17 12:47 106 14 40 01/10/17 12:12 74 14 99 01/10/17 12:00 112 01/10/17 12:00 97.9 93 18 143/49 99 Mechanical Ventilator 45 01/10/17 11:59 96 14 100 01/10/17 11:00 91 14 40 01/10/17 11:00 96 18 145/54 99 Mechanical Ventilator 45 Status: awake Condition: critical HEENT: atraumatic Neck: full ROM Lungs: rhonchi Heart: HR/BP stable Abdomen: soft, non-tender, feeding tube Extremities: no C/C/E, edema Accucheck: 174 Critical Care - Subjective ROS Limited/Unobtainable: No Condition: critical IV Access: PICC EKG Rhythm: Sinus Rhythm FI02: 40 Vent Support Breath Rate: 14 Vent Support Mode: AC Vent Tidal Volume: 500 Sputum Amount: Small PEEP: 5.0 PIP: 38 Drips: heparin Tube Feeding Amount: 00 I&O: Intake and Output 01/10/17 01/11/17 19:00 07:00 Intake Total 570 ml 559.708 ml Output Total 1260 ml 805 ml Balance -690 ml -245.292 ml IV Total 220 ml 459.708 ml Tube Feeding 0 ml Blood Product 300 ml Other 50 ml 100 ml Output Urine Total 1260 ml 805 ml # Bowel Movements 2 CXR: no change ET Position: 22 Labs: Laboratory Tests Test 01/10/17 17:05 01/11/17 00:45 01/11/17 08:15 Activated Partial Thromboplast Time 26 SEC (23-33) 109 SEC (23-33) H 100 SEC (23-33) H Prothrombin Time 13.3 SEC (9.30-11.50) H 13.2 SEC (9.30-11.50) H Prothromb Time International Ratio 1.3 (0.9-1.1) H 1.3 (0.9-1.1) H White Blood Count 16.1 K/UL (4.8-10.8) H Red Blood Count 3.11 M/UL (4.20-5.40) L Hemoglobin 9.3 G/DL (12.0-16.0) L Hematocrit 28.4 % (37.0-47.0) L Mean Corpuscular Volume 91 FL (80-99) Mean Corpuscular Hemoglobin 29.9 PG (27.0-31.0) Mean Corpuscular Hemoglobin Concent 32.7 G/DL (32.0-36.0) Red Cell Distribution Width 14.2 % (11.6-14.8) Platelet Count 285 K/UL (150-450) Mean Platelet Volume 7.8 FL (6.5-10.1) Neutrophils (%) (Auto) 83.7 % (45.0-75.0) H Lymphocytes (%) (Auto) 8.1 % (20.0-45.0) L Monocytes (%) (Auto) 7.7 % (1.0-10.0) Eosinophils (%) (Auto) 0.2 % (0.0-3.0) Basophils (%) (Auto) 0.4 % (0.0-2.0) Sodium Level 157 mEQ/L (135-145) H Potassium Level 3.6 mEQ/L (3.4-4.9) Chloride Level 112 mEQ/L (98-107) H Carbon Dioxide Level 38 mEQ/L (20-30) H Anion Gap 7 (5-15) Blood Urea Nitrogen 42 mg/dL (7-23) H Creatinine 0.6 mg/dL (0.5-0.9) Estimat Glomerular Filtration Rate > 60 mL/min (>60) Glucose Level 154 mg/dL (74-106) H Calcium Level 8.0 mg/dL (8.6-10.2) L Phosphorus Level 2.9 mg/dL (2.5-4.8) Magnesium Level 2.4 mg/dL (1.7-2.5) Total Bilirubin 0.7 mg/dL (0.0-1.2) Aspartate Amino Transf (AST/SGOT) 29 U/L (5-40) Alanine Aminotransferase (ALT/SGPT) 6 U/L (3-33) Alkaline Phosphatase 152 U/L (35-104) H Total Protein 5.7 g/dL (6.6-8.7) L Albumin 2.1 g/dL (3.5-5.2) L Globulin 3.6 g/dL Albumin/Globulin Ratio 0.5 (1.0-2.7) L Amylase Level 136 U/L (10-110) H Lipase 63 U/L (< 60) H TONY BRIDGES January 11, 2017 10:33
--- NOTE | 2017-01-11 10:47 | GI Progress Note ---
Assessment/Plan Problems: (1) Pancreatitis ICD Codes: K85.9 - Acute pancreatitis, unspecified SNOMED: 55546875 Qualifiers: Qualified Codes: K85.10 - Biliary acute pancreatitis without necrosis or infection (2) Abdominal pain ICD Codes: R10.9 - Unspecified abdominal pain SNOMED: 18979668, 914317876 (3) Iron deficiency anemia ICD Codes: D50.9 - Iron deficiency anemia, unspecified SNOMED: 14954688 (4) Colon polyp ICD Codes: K63.5 - Polyp of colon SNOMED: 01729026 Status: stable, progressing Status Narrative Discussed with Dr. Gipson. Assessment/Plan Pancreatitis - abdomen still very distended cholelithiasis, no e/o choledocholithiasis rising WBC S/P trach APCT reviewed>> New finding of a 6 x 4.4 x 4.9 cm masslike lesion in the left paracolic gutter, which compresses and splays but does not appear to obstruct an adjacent small bowel loop, see full report. 01/04/17 cdiff negative OB stool positive s/p PEG s/p colonoscopy >> high suspicion for ischemic colitis, fu biopsy restart GTFs monitor H&H, transfuse prn reglan ATC GT site care >> GT site bleed >> see surgical note. ppi BID abx monitor amylase/lipase follow labs supportive care Subjective Subjective limited Objective Last 24 Hour Vital Signs Date Time Temp Pulse Resp B/P Pulse Ox O2 Delivery O2 Flow Rate FiO2 01/11/17 10:00 103 18 143/46 100 Mechanical Ventilator 40 01/11/17 09:29 97 14 40 01/11/17 09:00 98 18 132/45 100 Mechanical Ventilator 40 01/11/17 08:00 99 01/11/17 08:00 40 01/11/17 08:00 40 01/11/17 08:00 97.8 99 18 129/54 100 Mechanical Ventilator 40 01/11/17 07:02 106 17 40 01/11/17 07:00 98 18 122/90 100 Mechanical Ventilator 40 01/11/17 06:00 92 17 144/57 100 Mechanical Ventilator 40 01/11/17 05:15 110 18 40 01/11/17 05:00 95 17 143/74 100 Mechanical Ventilator 40 01/11/17 04:00 40 5/5/17 04:00 91 5/5/17 04:00 97.9 98 17 151/68 100 Mechanical Ventilator 40 5/5/17 03:26 93 14 40 5/5/17 03:00 100 17 136/58 100 Mechanical Ventilator 40 5/5/17 02:00 104 21 148/38 100 Mechanical Ventilator 40 5/5/17 01:34 111 15 40 5/5/17 01:00 106 21 154/57 99 Mechanical Ventilator 40 5/5/17 00:00 95 5/5/17 00:00 97.3 99 17 123/52 99 Mechanical Ventilator 40 5/5/17 00:00 40 5/4/17 23:21 107 16 40 5/4/17 23:00 100 16 137/41 100 Mechanical Ventilator 40 5/4/17 22:00 91 16 122/43 100 Mechanical Ventilator 40 5/4/17 21:12 118 15 40 5/4/17 21:00 114 15 143/57 100 Mechanical Ventilator 40 5/4/17 20:00 110 5//17 20:00 97.8 104 19 155/87 99 Mechanical Ventilator 40 5/4/17 20:00 40 5/4/17 19:11 111 16 40 5/4/17 19:00 112 15 150/55 100 Mechanical Ventilator 45 5/4/17 18:00 102 14 142/42 99 Mechanical Ventilator 45 5/4/17 17:18 107 14 40 5/4/17 17:00 89 14 150/46 99 Mechanical Ventilator 45 5/4/17 16:00 98 /4/17 16:00 45 5/4/17 16:00 97.6 98 19 148/35 99 Mechanical Ventilator 45 5/4/17 15:00 98 19 146/44 99 Mechanical Ventilator 45 5/4/17 14:33 81 14 40 5/4/17 14:00 96 19 144/52 100 Mechanical Ventilator 45 5/4/17 13:00 97 18 154/44 99 Mechanical Ventilator 45 5/4/17 12:47 106 14 40 5/4/17 12:12 74 14 99 5/4/17 12:00 112 5/4/17 12:00 97.9 93 18 143/49 99 Mechanical Ventilator 45 5/4/17 11:59 96 14 100 5/4/17 11:00 91 14 40 5/4/17 11:00 96 18 145/54 99 Mechanical Ventilator 45 Intake and Output 01/10/17 01/11/17 19:00 07:00 Intake Total 570 ml 559.708 ml Output Total 1260 ml 805 ml Balance -690 ml -245.292 ml IV Total 220 ml 459.708 ml Tube Feeding 0 ml Blood Product 300 ml Other 50 ml 100 ml Output Urine Total 1260 ml 805 ml # Bowel Movements 2 Laboratory Tests Test 01/10/17 17:05 01/11/17 00:45 01/11/17 08:15 Activated Partial Thromboplast Time 26 SEC (23-33) 109 SEC (23-33) H 100 SEC (23-33) H Prothrombin Time 13.3 SEC (9.30-11.50) H 13.2 SEC (9.30-11.50) H Prothromb Time International Ratio 1.3 (0.9-1.1) H 1.3 (0.9-1.1) H White Blood Count 16.1 K/UL (4.8-10.8) H Red Blood Count 3.11 M/UL (4.20-5.40) L Hemoglobin 9.3 G/DL (12.0-16.0) L Hematocrit 28.4 % (37.0-47.0) L Mean Corpuscular Volume 91 FL (80-99) Mean Corpuscular Hemoglobin 29.9 PG (27.0-31.0) Mean Corpuscular Hemoglobin Concent 32.7 G/DL (32.0-36.0) Red Cell Distribution Width 14.2 % (11.6-14.8) Platelet Count 285 K/UL (150-450) Mean Platelet Volume 7.8 FL (6.5-10.1) Neutrophils (%) (Auto) 83.7 % (45.0-75.0) H Lymphocytes (%) (Auto) 8.1 % (20.0-45.0) L Monocytes (%) (Auto) 7.7 % (1.0-10.0) Eosinophils (%) (Auto) 0.2 % (0.0-3.0) Basophils (%) (Auto) 0.4 % (0.0-2.0) Sodium Level 157 mEQ/L (135-145) H Potassium Level 3.6 mEQ/L (3.4-4.9) Chloride Level 112 mEQ/L (98-107) H Carbon Dioxide Level 38 mEQ/L (20-30) H Anion Gap 7 (5-15) Blood Urea Nitrogen 42 mg/dL (7-23) H Creatinine 0.6 mg/dL (0.5-0.9) Estimat Glomerular Filtration Rate > 60 mL/min (>60) Glucose Level 154 mg/dL (74-106) H Calcium Level 8.0 mg/dL (8.6-10.2) L Phosphorus Level 2.9 mg/dL (2.5-4.8) Magnesium Level 2.4 mg/dL (1.7-2.5) Total Bilirubin 0.7 mg/dL (0.0-1.2) Aspartate Amino Transf (AST/SGOT) 29 U/L (5-40) Alanine Aminotransferase (ALT/SGPT) 6 U/L (3-33) Alkaline Phosphatase 152 U/L (35-104) H Total Protein 5.7 g/dL (6.6-8.7) L Albumin 2.1 g/dL (3.5-5.2) L Globulin 3.6 g/dL Albumin/Globulin Ratio 0.5 (1.0-2.7) L Amylase Level 136 U/L (10-110) H Lipase 63 U/L (< 60) H Height (Feet): 5 Height (Inches): 1.00 Weight (Pounds): 200 General Appearance: no apparent distress, alert Cardiovascular: normal rate Respiratory/Chest: other - mech vent Abdominal Exam: site - c/d/i Objective Service Date: 12/11/16 Procedure: MRI Abdomen no Contrast Indication: Abdominal pain, possible pancreatitis Findings: Multiple calcifications are seen within the gallbladder. There is a ductal structure cephalad to the gallbladder which contains a filling defect. This is probably the cystic duct, but could be an extrahepatic bile duct, and it is uncertain which of these is. The gallbladder wall is not thickened. The extrahepatic bile ducts are ectatic, with the common bile duct measuring up to 9 mm diameter , but no downstream filling defects are demonstrated. The common bile duct terminates abruptly at the level of the ampulla. The pancreatic duct is mildly ectatic, measuring 3-4 mm in diameter. No intraluminal filling defects are demonstrated. A 7 mm fluid signal lesion is seen within the uncinate process of the pancreas. This may actually be a duodenal diverticulum which is seen on the recent CT scan. There is apparent swelling of the pancreas and considerable free intraperitoneal fluid. No free intraperitoneal fluid presumably increased from the prior CT scan. There are dilated small bowel loops, likely indicating ileus. The liver is unremarkable. The adrenals and kidneys are unremarkable. There are bilateral small pleural effusions. The spleen is unremarkable. The heart is enlarged Impression: Cholelithiasis. There is also a calculus within the duct adjacent to the gallbladder which is probably the cystic duct but could be an extrahepatic bile duct. Extrahepatic and central intrahepatic biliary ductal mild dilatation. No definite downstream calculus or pancreatic head mass to account for this, however. Prominence and edema of the pancreas, better visualized on prior CT scan, consistent with acute pancreatitis, also previously described Ascites fluid, increased from the prior CT scan, likely secondary to the acute pancreatitis Dilated small bowel loops, new since prior CT study. Suspect representing ileus related to the pancreatitis Bilateral small pleural effusions Small cystic lesion within the as a process. Suspect that this is actually the duodenal diverticulum described on recent CT scan, but could represent a tiny pseudocyst or intraductal papillary mucinous neoplasm. Cardiomegaly Lulu Dominguez N.P. January 11, 2017 10:47
--- NOTE | 2017-01-11 10:50 | General Progress Note ---
Progress Note Progress Note Surgery: patient seen and examined at bedside. had colonoscopy yesterday. area of concern in sigmoid colon for possible ischemia? today afebrile, HD stable, leukocytosis improving. Abdominal exam stable without changes over multiple days. no active bleeding noted at this time. trach and peg functional. no more rectal bleeding / melena. No acute surgical intervention planned. possible mucosal transient ischemia in colon. clinically does not seem to have transmural ischemia. possibly from hypovolemia? will hopefully improve with resuscitation Okay to resume tube feeds Wean vent as tolerated Rodrigo Andino January 11, 2017 10:50
--- NOTE | 2017-01-11 12:31 | Diagnostic Imaging Report ---
Indication: Dyspnea Comparison: 01/10/17 A single view chest radiograph was obtained. Findings: There is enlargement of the cardiac silhouette with pulmonary vascular redistribution and prominence, hazy vessel margins and the suggestion of interstitial edema consistent with CHF. Tracheostomy, sternotomy, PICC line again noted. Impression: No change from the prior study. CHF
[2017-01-11 13:10] LABS: OTHERS PATHOLOGIST COMMENT
--- NOTE | 2017-01-11 13:41 | General Progress Note ---
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/p signal mechanic Mirtral Vavle prosthesis on anticoagulation Pulmonary HTN HypoAlbuminemia ARDS Plan: On allopurinol K supplement as needed reglan to IV Hydrocortisone IV Fluid challenge Keep bp above 100 syst by adjusting BP meds Optimize cardiac status K supplement as needed Adjust pulmonary status- Per GI / Surgery Avoid nephrotoxics monitor renal parameters Subjective ROS Limited/Unobtainable: Yes Allergies: Coded Allergies: No Known Allergies (Unverified , 09/28/14) Objective Last 24 Hour Vital Signs Date Time Temp Pulse Resp B/P Pulse Ox O2 Delivery O2 Flow Rate FiO2 01/11/17 13:00 109 17 150/71 100 Mechanical Ventilator 40 01/11/17 12:58 118 18 40 01/11/17 12:00 40 01/11/17 12:00 106 01/11/17 12:00 98.1 109 18 153/58 100 Mechanical Ventilator 40 01/11/17 11:18 98 17 40 01/11/17 11:00 101 18 134/53 100 Mechanical Ventilator 40 01/11/17 10:00 103 18 143/46 100 Mechanical Ventilator 40 01/11/17 09:32 99 01/11/17 09:30 40 01/11/17 09:29 97 14 40 01/11/17 09:00 98 18 132/45 100 Mechanical Ventilator 40 01/11/17 08:00 99 01/11/17 08:00 40 01/11/17 08:00 40 01/11/17 08:00 97.8 99 18 129/54 100 Mechanical Ventilator 40 01/11/17 07:02 106 17 40 01/11/17 07:00 98 18 122/90 100 Mechanical Ventilator 40 01/11/17 06:00 92 17 144/57 100 Mechanical Ventilator 40 01/11/17 05:15 110 18 40 01/11/17 05:00 95 17 143/74 100 Mechanical Ventilator 40 01/11/17 04:00 40 01/11/17 04:00 91 01/11/17 04:00 97.9 98 17 151/68 100 Mechanical Ventilator 40 01/11/17 03:26 93 14 40 01/11/17 03:00 100 17 136/58 100 Mechanical Ventilator 40 01/11/17 02:00 104 21 148/38 100 Mechanical Ventilator 40 01/11/17 01:34 111 15 40 01/11/17 01:00 106 21 154/57 99 Mechanical Ventilator 40 01/11/17 00:00 95 01/11/17 00:00 97.3 99 17 123/52 99 Mechanical Ventilator 40 01/11/17 00:00 40 01/10/17 23:21 107 16 40 01/10/17 23:00 100 16 137/41 100 Mechanical Ventilator 40 01/10/17 22:00 91 16 122/43 100 Mechanical Ventilator 40 01/10/17 21:12 118 15 40 01/10/17 21:00 114 15 143/57 100 Mechanical Ventilator 40 01/10/17 20:00 110 01/10/17 20:00 97.8 104 19 155/87 99 Mechanical Ventilator 40 01/10/17 20:00 40 01/10/17 19:11 111 16 40 01/10/17 19:00 112 15 150/55 100 Mechanical Ventilator 45 01/10/17 18:00 102 14 142/42 99 Mechanical Ventilator 45 01/10/17 17:18 107 14 40 01/10/17 17:00 89 14 150/46 99 Mechanical Ventilator 45 01/10/17 16:00 98 01/10/17 16:00 45 01/10/17 16:00 97.6 98 19 148/35 99 Mechanical Ventilator 45 01/10/17 15:00 98 19 146/44 99 Mechanical Ventilator 45 01/10/17 14:33 81 14 40 01/10/17 14:00 96 19 144/52 100 Mechanical Ventilator 45 Intake and Output 01/10/17 01/11/17 19:00 07:00 Intake Total 570 ml 559.708 ml Output Total 1260 ml 805 ml Balance -690 ml -245.292 ml IV Total 220 ml 459.708 ml Tube Feeding 0 ml Blood Product 300 ml Other 50 ml 100 ml Output Urine Total 1260 ml 805 ml # Bowel Movements 2 Laboratory Tests 01/10/17 17:05: Activated Partial Thromboplast Time 26 01/11/17 00:45: Activated Partial Thromboplast Time 109H, Prothrombin Time 13.3H, Prothromb Time International Ratio 1.3H 01/11/17 08:15: Activated Partial Thromboplast Time 100H, Prothrombin Time 13.2H, Prothromb Time International Ratio 1.3H, White Blood Count 16.1H, Red Blood Count 3.11L, Hemoglobin 9.3L, Hematocrit 28.4L, Mean Corpuscular Volume 91, Mean Corpuscular Hemoglobin 29.9, Mean Corpuscular Hemoglobin Concent 32.7, Red Cell Distribution Width 14.2, Platelet Count 285, Mean Platelet Volume 7.8, Neutrophils (%) (Auto) 83.7H, Lymphocytes (%) (Auto) 8.1L, Monocytes (%) (Auto) 7.7, Eosinophils (%) (Auto) 0.2, Basophils (%) (Auto) 0.4, Sodium Level 157H, Potassium Level 3.6, Chloride Level 112H, Carbon Dioxide Level 38H, Anion Gap 7 , Blood Urea Nitrogen 42H, Creatinine 0.6, Estimat Glomerular Filtration Rate > 60, Glucose Level 154H, Calcium Level 8.0L, Phosphorus Level 2.9, Magnesium Level 2.4, Total Bilirubin 0.7, Aspartate Amino Transf (AST/SGOT) 29, Alanine Aminotransferase (ALT/SGPT) 6, Alkaline Phosphatase 152H, Total Protein 5.7L, Albumin 2.1L, Globulin 3.6, Albumin/Globulin Ratio 0.5L, Amylase Level 136H, Lipase 63H Height (Feet): 5 Height (Inches): 1.00 Weight (Pounds): 200 General Appearance: no apparent distress Neck: stiff neck Cardiovascular: tachycardia Respiratory/Chest: decreased breath sounds Abdomen: distended Objective other PE not changed KAMINI SNOW January 11, 2017 13:41
[2017-01-11] MEDS ORDERED: NS 275ml ONE (15:48)
[2017-01-11] MEDS ORDERED: Tubing Blood Filter IV ONE (15:48)
[2017-01-11] MEDS ORDERED: Tubing IV Secondary IV ONE (15:48)
[2017-01-11] MEDS ORDERED: D5 1/2NS 1000ml IV ONE (15:48)
[2017-01-11] MEDS ORDERED: Heparin 5000 units/ml inj IV ONE (17:00)
--- NOTE | 2017-01-11 19:28 | Cardiology Progress Note ---
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 diabetes insipidus ??? wbc better hgb stable start low dose bb Subjective ROS Limited/Unobtainable: Yes Subjective on the vent ,s/p trach wants to go home Objective Last 24 Hour Vital Signs Date Time Temp Pulse Resp B/P Pulse Ox O2 Delivery O2 Flow Rate FiO2 01/11/17 18:52 110 20 40 01/11/17 18:00 99 23 152/52 100 Mechanical Ventilator 40 01/11/17 17:05 114 16 40 01/11/17 17:00 103 19 150/53 99 Mechanical Ventilator 40 01/11/17 16:00 40 01/11/17 16:00 97.9 106 18 149/52 100 Mechanical Ventilator 40 01/11/17 16:00 101 01/11/17 15:30 105 17 40 01/11/17 15:00 113 19 156/73 100 Mechanical Ventilator 40 01/11/17 14:00 101 17 137/33 100 Mechanical Ventilator 40 01/11/17 13:00 109 17 150/71 100 Mechanical Ventilator 40 01/11/17 12:58 118 18 40 01/11/17 12:00 40 01/11/17 12:00 106 01/11/17 12:00 98.1 109 18 153/58 100 Mechanical Ventilator 40 01/11/17 11:18 98 17 40 01/11/17 11:00 101 18 134/53 100 Mechanical Ventilator 40 01/11/17 10:00 103 18 143/46 100 Mechanical Ventilator 40 01/11/17 09:32 99 01/11/17 09:30 40 01/11/17 09:29 97 14 40 01/11/17 09:00 98 18 132/45 100 Mechanical Ventilator 40 01/11/17 08:00 99 01/11/17 08:00 40 01/11/17 08:00 40 01/11/17 08:00 97.8 99 18 129/54 100 Mechanical Ventilator 40 01/11/17 07:02 106 17 40 01/11/17 07:00 98 18 122/90 100 Mechanical Ventilator 40 01/11/17 06:00 92 17 144/57 100 Mechanical Ventilator 40 01/11/17 05:15 110 18 40 01/11/17 05:00 95 17 143/74 100 Mechanical Ventilator 40 01/11/17 04:00 40 01/11/17 04:00 91 01/11/17 04:00 97.9 98 17 151/68 100 Mechanical Ventilator 40 01/11/17 03:26 93 14 40 01/11/17 03:00 100 17 136/58 100 Mechanical Ventilator 40 01/11/17 02:00 104 21 148/38 100 Mechanical Ventilator 40 01/11/17 01:34 111 15 40 01/11/17 01:00 106 21 154/57 99 Mechanical Ventilator 40 01/11/17 00:00 95 01/11/17 00:00 97.3 99 17 123/52 99 Mechanical Ventilator 40 01/11/17 00:00 40 01/10/17 23:21 107 16 40 01/10/17 23:00 100 16 137/41 100 Mechanical Ventilator 40 01/10/17 22:00 91 16 122/43 100 Mechanical Ventilator 40 01/10/17 21:12 118 15 40 01/10/17 21:00 114 15 143/57 100 Mechanical Ventilator 40 01/10/17 20:00 110 01/10/17 20:00 97.8 104 19 155/87 99 Mechanical Ventilator 40 01/10/17 20:00 40 General Appearance: no apparent distress, alert, on vent Neck: supple Cardiovascular: irregularly irregular, other - mechanical Respiratory/Chest: rhonchi - right Abdomen: normal bowel sounds, non tender, soft Extremities: moderate edema Intake and Output 01/10/17 01/11/17 19:00 07:00 Intake Total 570 ml 559.708 ml Output Total 1260 ml 805 ml Balance -690 ml -245.292 ml IV Total 220 ml 459.708 ml Tube Feeding 0 ml Blood Product 300 ml Other 50 ml 100 ml Output Urine Total 1260 ml 805 ml # Bowel Movements 2 Laboratory Tests Test 01/11/17 00:45 01/11/17 08:15 01/11/17 16:00 01/11/17 18:09 Prothrombin Time 13.3 SEC (9.30-11.50) H 13.2 SEC (9.30-11.50) H Prothromb Time International Ratio 1.3 (0.9-1.1) H 1.3 (0.9-1.1) H Activated Partial Thromboplast Time 109 SEC (23-33) H 100 SEC (23-33) H 41 SEC (23-33) H 84 SEC (23-33) H White Blood Count 16.1 K/UL (4.8-10.8) H Red Blood Count 3.11 M/UL (4.20-5.40) L Hemoglobin 9.3 G/DL (12.0-16.0) L Hematocrit 28.4 % (37.0-47.0) L Mean Corpuscular Volume 91 FL (80-99) Mean Corpuscular Hemoglobin 29.9 PG (27.0-31.0) Mean Corpuscular Hemoglobin Concent 32.7 G/DL (32.0-36.0) Red Cell Distribution Width 14.2 % (11.6-14.8) Platelet Count 285 K/UL (150-450) Mean Platelet Volume 7.8 FL (6.5-10.1) Neutrophils (%) (Auto) 83.7 % (45.0-75.0) H Lymphocytes (%) (Auto) 8.1 % (20.0-45.0) L Monocytes (%) (Auto) 7.7 % (1.0-10.0) Eosinophils (%) (Auto) 0.2 % (0.0-3.0) Basophils (%) (Auto) 0.4 % (0.0-2.0) Sodium Level 157 mEQ/L (135-145) H Potassium Level 3.6 mEQ/L (3.4-4.9) Chloride Level 112 mEQ/L (98-107) H Carbon Dioxide Level 38 mEQ/L (20-30) H Anion Gap 7 (5-15) Blood Urea Nitrogen 42 mg/dL (7-23) H Creatinine 0.6 mg/dL (0.5-0.9) Estimat Glomerular Filtration Rate > 60 mL/min (>60) Glucose Level 154 mg/dL (74-106) H Calcium Level 8.0 mg/dL (8.6-10.2) L Phosphorus Level 2.9 mg/dL (2.5-4.8) Magnesium Level 2.4 mg/dL (1.7-2.5) Total Bilirubin 0.7 mg/dL (0.0-1.2) Aspartate Amino Transf (AST/SGOT) 29 U/L (5-40) Alanine Aminotransferase (ALT/SGPT) 6 U/L (3-33) Alkaline Phosphatase 152 U/L (35-104) H Total Protein 5.7 g/dL (6.6-8.7) L Albumin 2.1 g/dL (3.5-5.2) L Globulin 3.6 g/dL Albumin/Globulin Ratio 0.5 (1.0-2.7) L Amylase Level 136 U/L (10-110) H Lipase 63 U/L (< 60) H ANNE RAM January 11, 2017 19:27
--- NOTE | 2017-01-11 19:38 | Infectious Diseases Prog Note ---
Assessment/Plan Assessment/Plan ASSESSMENT: Fever, SP leukocytosis l improving ( probable due to GI bleed, pt has tarry stool ) Pancreatitis improving CT: Findings compatible with marked worsening of acute pancreatitis MRCP : Cholelithiasis. There is also a calculus within the duct adjacent to the gallbladder Pancreatic Enzymes improving CT of Abd : reviewed cholelithiasis : US of liver : Incidental finding of cholelithiasis and mild gallbladder wall thickening positive sonographic Diaz's sign LFT : Nl UTI : Mandy SCx : Mandy ( colonizer ) SP s/p colonoscopy >> high suspicion for ischemic colitis SP PEG 01/02 VDRF: SP trach 01/01 Cxray : Increase in bilateral congestive changes with persistent small right , probable new left pleural effusions ARF SP aortic stenosis mitral stenosis status post mitral valve replacement AFib Pulmonary hypertension PLAN: - cont on IV Merrem d# 9 / 14 , , oral Amoxi d# 5 / 7 ( 01/07 SP Zyvox d#5 and Flagyl d# 4 ) ( 12/28 SP Diflucan d# 10 ) ( 12/24 SP Merrem d# 14 /14 ) - monitor CBC, temperatures, - monitor LFT - GI f/u - Sx is following for possible Cholecystectomy later - VDRF - Dopamine ( renal dose ) - monitor Cx ( Bl ) - PRBC transfusion PRN - Colonoscopy today Subjective Constitutional: Denies: anorexia, chills, drenching sweats, fatigue, fever, no symptoms, other Allergies: Coded Allergies: No Known Allergies (Unverified , 09/28/14) Subjective on Vent Objective Vital Signs Last 24 Hour Vital Signs Date Time Temp Pulse Resp B/P Pulse Ox O2 Delivery O2 Flow Rate FiO2 01/11/17 19:00 99 22 156/67 100 Mechanical Ventilator 40 01/11/17 18:52 110 20 40 01/11/17 18:00 99 23 152/52 100 Mechanical Ventilator 40 01/11/17 17:05 114 16 40 01/11/17 17:00 103 19 150/53 99 Mechanical Ventilator 40 01/11/17 16:00 40 01/11/17 16:00 97.9 106 18 149/52 100 Mechanical Ventilator 40 01/11/17 16:00 101 01/11/17 15:30 105 17 40 01/11/17 15:00 113 19 156/73 100 Mechanical Ventilator 40 01/11/17 14:00 101 17 137/33 100 Mechanical Ventilator 40 01/11/17 13:00 109 17 150/71 100 Mechanical Ventilator 40 01/11/17 12:58 118 18 40 01/11/17 12:00 40 01/11/17 12:00 106 01/11/17 12:00 98.1 109 18 153/58 100 Mechanical Ventilator 40 01/11/17 11:18 98 17 40 01/11/17 11:00 101 18 134/53 100 Mechanical Ventilator 40 01/11/17 10:00 103 18 143/46 100 Mechanical Ventilator 40 01/11/17 09:32 99 01/11/17 09:30 40 01/11/17 09:29 97 14 40 01/11/17 09:00 98 18 132/45 100 Mechanical Ventilator 40 01/11/17 08:00 99 01/11/17 08:00 40 01/11/17 08:00 40 01/11/17 08:00 97.8 99 18 129/54 100 Mechanical Ventilator 40 01/11/17 07:02 106 17 40 01/11/17 07:00 98 18 122/90 100 Mechanical Ventilator 40 01/11/17 06:00 92 17 144/57 100 Mechanical Ventilator 40 01/11/17 05:15 110 18 40 01/11/17 05:00 95 17 143/74 100 Mechanical Ventilator 40 01/11/17 04:00 40 01/11/17 04:00 91 01/11/17 04:00 97.9 98 17 151/68 100 Mechanical Ventilator 40 01/11/17 03:26 93 14 40 01/11/17 03:00 100 17 136/58 100 Mechanical Ventilator 40 01/11/17 02:00 104 21 148/38 100 Mechanical Ventilator 40 01/11/17 01:34 111 15 40 01/11/17 01:00 106 21 154/57 99 Mechanical Ventilator 40 01/11/17 00:00 95 01/11/17 00:00 97.3 99 17 123/52 99 Mechanical Ventilator 40 01/11/17 00:00 40 //17 23:21 107 16 40 // 23:00 100 16 137/41 100 Mechanical Ventilator 40 17 22:00 91 16 122/43 100 Mechanical Ventilator 40 17 21:12 118 15 40 01/10/17 21:00 114 15 143/57 100 Mechanical Ventilator 40 01/10/17 20:00 110 01/10/17 20:00 97.8 104 19 155/87 99 Mechanical Ventilator 40 01/10/17 20:00 40 Height (Feet): 5 Height (Inches): 1.00 Weight (Pounds): 200 Cardiovascular: regularly irregular Abdomen: soft, non tender Laboratory Tests Test 01/11/17 00:45 01/11/17 08:15 01/11/17 16:00 01/11/17 18:09 Prothrombin Time 13.3 SEC (9.30-11.50) H 13.2 SEC (9.30-11.50) H Prothromb Time International Ratio 1.3 (0.9-1.1) H 1.3 (0.9-1.1) H Activated Partial Thromboplast Time 109 SEC (23-33) H 100 SEC (23-33) H 41 SEC (23-33) H 84 SEC (23-33) H White Blood Count 16.1 K/UL (4.8-10.8) H Red Blood Count 3.11 M/UL (4.20-5.40) L Hemoglobin 9.3 G/DL (12.0-16.0) L Hematocrit 28.4 % (37.0-47.0) L Mean Corpuscular Volume 91 FL (80-99) Mean Corpuscular Hemoglobin 29.9 PG (27.0-31.0) Mean Corpuscular Hemoglobin Concent 32.7 G/DL (32.0-36.0) Red Cell Distribution Width 14.2 % (11.6-14.8) Platelet Count 285 K/UL (150-450) Mean Platelet Volume 7.8 FL (6.5-10.1) Neutrophils (%) (Auto) 83.7 % (45.0-75.0) H Lymphocytes (%) (Auto) 8.1 % (20.0-45.0) L Monocytes (%) (Auto) 7.7 % (1.0-10.0) Eosinophils (%) (Auto) 0.2 % (0.0-3.0) Basophils (%) (Auto) 0.4 % (0.0-2.0) Sodium Level 157 mEQ/L (135-145) H Potassium Level 3.6 mEQ/L (3.4-4.9) Chloride Level 112 mEQ/L (98-107) H Carbon Dioxide Level 38 mEQ/L (20-30) H Anion Gap 7 (5-15) Blood Urea Nitrogen 42 mg/dL (7-23) H Creatinine 0.6 mg/dL (0.5-0.9) Estimat Glomerular Filtration Rate > 60 mL/min (>60) Glucose Level 154 mg/dL (74-106) H Calcium Level 8.0 mg/dL (8.6-10.2) L Phosphorus Level 2.9 mg/dL (2.5-4.8) Magnesium Level 2.4 mg/dL (1.7-2.5) Total Bilirubin 0.7 mg/dL (0.0-1.2) Aspartate Amino Transf (AST/SGOT) 29 U/L (5-40) Alanine Aminotransferase (ALT/SGPT) 6 U/L (3-33) Alkaline Phosphatase 152 U/L (35-104) H Total Protein 5.7 g/dL (6.6-8.7) L Albumin 2.1 g/dL (3.5-5.2) L Globulin 3.6 g/dL Albumin/Globulin Ratio 0.5 (1.0-2.7) L Amylase Level 136 U/L (10-110) H Lipase 63 U/L (< 60) H Current Medications Medications (Trade) Dose Ordered Sig/Lisbeth Route PRN Reason Start Time Stop Time Status Last Admin Dose Admin Acetaminophen (Tylenol) 650 mg Q4H PRN ORAL fever 12/17/16 08:00 01/16/17 07:59 01/11/17 13:45 Allopurinol (Allopurinol) 300 mg DAILY GT 01/07/17 16:30 02/06/17 16:29 01/11/17 09:16 Amoxicillin (Amoxil) 500 mg EVERY 8 HOURS GT 01/07/17 15:00 01/14/17 14:59 01/11/17 14:59 Atenolol (Tenormin) 25 mg DAILY ORAL 01/11/17 19:45 02/10/17 19:44 Dextrose (Dextrose 50%) STAT PRN IV Hypoglycemia 12/17/16 07:30 01/16/17 07:29 Heparin Sodium/ Dextrose (Heparin) 500 ml @ 23.587 mls/ hr adjust per protocol IV 01/11/17 09:42 02/09/17 19:00 01/11/17 13:40 Hydrocortisone (Anusol HC) 1 supp BIDPRN PRN RECTAL Anal discomfort/swelling/bleed 01/01/17 17:00 01/31/17 16:59 Hydrocortisone 50 mg 50 mg EVERY 12 HOURS IV 01/09/17 21:00 02/08/17 20:59 01/11/17 09:15 Insulin Aspart (NovoLOG) No Dose Q6HR SUBQ 12/17/16 12:00 01/16/17 11:59 01/11/17 18:10 Lansoprazole (Prevacid) 30 mg Q12HR GT 01/11/17 21:00 02/10/17 20:59 Lorazepam (Ativan 2mg/ml 1ml) 1 mg Q4H PRN IV For Anxiety 01/05/17 10:00 01/12/17 09:59 01/10/17 23:41 Meropenem/Sodium Chloride (Merrem/Sodium Chloride) 110 ml @ 220 mls/hr Q12HR@0200,1400 IVPB 01/07/17 14:00 01/16/17 13:59 01/11/17 13:52 Metoclopramide HCl 10 mg 10 mg Q6H IVP 01/06/17 18:00 02/05/17 17:59 01/11/17 18:09 Morphine Sulfate (Morphine Sulfate) 4 mg Q4H PRN IVP PAIN 4-10 01/07/17 11:45 01/14/17 11:44 01/10/17 03:58 Ondansetron HCl (Zofran) 4 mg EVERY 4 HOURS PRN IVP Nausea & Vomiting 01/03/17 07:00 02/02/17 06:59 01/07/17 18:31 Temazepam (Restoril) 15 mg HSPRN PRN ORAL Insomnia 01/11/17 21:00 01/18/17 20:59 OSCAR ANDERSON M.D. January 11, 2017 19:38
[2017-01-11] MEDS: Atenolol 25mg tab ORAL SCH (21:03)
[2017-01-11] MEDS: Morphine Sulfate 4mg/ml Inj IVP PRN (21:13)
[2017-01-12] VITALS (23 sets, daily range): BP systolic 100–164; BP diastolic 34–72
[2017-01-12] MEDS: NovoLOG Insulin Flexpen SUBQ SCH ×4 (00:03→17:48)
[2017-01-12] MEDS: Meropenem 1gm/NS 110ml IVPB SCH ×4 (02:34→14:29)
[2017-01-12] MEDS: LORazepam Inj 2mg/ml 1ml IV PRN (03:21)
[2017-01-12] MEDS: Amoxicillin 250mg/5ml susp GT SCH ×3 (05:41→21:33)
[2017-01-12] MEDS: Metoclopramide 10mg/2ml Inj IVP SCH ×4 (05:41→23:35)
[2017-01-12 06:24] LABS: MEAN CORPUSCULAR HEMOGLOBIN 30.8 PG (27.0-31.0); MEAN CORPUSCULAR HGB CONC 32.6 G/DL (32.0-36.0); MEAN CORPUSCULAR VOLUME 94 FL (80-99); MEAN PLATELET VOLUME 7.3 FL (6.5-10.1); PLATELET COUNT 324 K/UL (150-450); RED BLOOD COUNT 2.86 M/UL (4.20-5.40); RED CELL DISTRIBUTION WIDTH 14.9 % (11.6-14.8); WHITE BLOOD COUNT 21.2 K/UL (4.8-10.8)
[2017-01-12 06:34] LABS: MAGNESIUM 2.6 mg/dL (1.7-2.5); PHOSPHORUS 3.2 mg/dL (2.5-4.8); URIC ACID 7.7 mg/dL (3.0-7.5)
[2017-01-12 06:35] LABS: ALANINE AMINOTRANSFERASE 9 U/L (3-33); ALBUMIN/GLOBULIN RATIO 0.5 (1.0-2.7); ANION GAP 4 (5-15); ASPARTATE AMINO TRANSFERASE 32 U/L (5-40); CALCIUM 8.1 mg/dL (8.6-10.2); CARBON DIOXIDE 39 mEQ/L (20-30); CHLORIDE 113 mEQ/L (98-107); CREATININE 0.6 mg/dL (0.5-0.9); GLOMERULAR FILTRATION RATE > 60 mL/min (>60); HEMOLYSIS 2; POTASSIUM 3.6 mEQ/L (3.4-4.9); SODIUM 156 mEQ/L (135-145)
[2017-01-12] MEDS: Hydrocortisone 100mg Inj IV SCH ×2 (09:06→21:24)
[2017-01-12] MEDS: Atenolol 25mg tab ORAL SCH (09:07)
--- NOTE | 2017-01-12 09:11 | Pulmonolgy Critical Care Note ---
Critical Care - Asmt/Plan Problems: (1) Respiratory failure requiring intubation (2) Ischemic colitis (3) Sepsis (4) Lower GI bleed (5) ATN (acute tubular necrosis) (6) Atrial fibrillation (7) Anemia (8) Pancreatitis Respiratory: monitor respiratory rate, adjust FIO2, CXR, weaning trial Cardiac: continue to monitor HR/BP Renal: F/U I&O, keep IV fluid Infectious Disease: check cultures Gastrointestinal: continue feedings/current rate, hold feedings Endocrine: monitor blood sugar, check TSH Hematologic: monitor H/H Neurologic: PRN Morphine Prophylaxis: Protonix, Heparin Time Spent (Minutes): 40 Notes 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, 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 Discussed with: nurses, consultants, 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 - Objective Last 24 Hour Vital Signs Date Time Temp Pulse Resp B/P Pulse Ox O2 Delivery O2 Flow Rate FiO2 01/12/17 09:07 88 112/63 01/12/17 08:35 40 01/12/17 08:00 95 01/12/17 08:00 40 01/12/17 08:00 98.6 95 27 164/69 99 Mechanical Ventilator 40 01/12/17 07:00 80 24 145/45 99 Mechanical Ventilator 40 01/12/17 07:00 88 19 40 01/12/17 06:00 81 24 156/61 99 Mechanical Ventilator 40 01/12/17 05:20 89 14 40 01/12/17 05:00 86 26 149/58 99 Mechanical Ventilator 40 01/12/17 04:00 76 01/12/17 04:00 98.4 76 25 142/39 99 Mechanical Ventilator 40 01/12/17 04:00 40 01/12/17 03:12 77 15 40 01/12/17 03:00 76 22 145/56 99 Mechanical Ventilator 40 01/12/17 02:00 72 18 134/36 99 Mechanical Ventilator 40 01/12/17 01:03 72 16 40 01/12/17 01:00 73 23 159/49 99 Mechanical Ventilator 40 01/12/17 00:00 98.2 70 22 150/60 98 Mechanical Ventilator 40 01/12/17 00:00 40 01/12/17 00:00 73 01/11/17 23:15 76 18 40 01/11/17 23:00 73 22 159/45 98 Mechanical Ventilator 40 01/11/17 22:00 74 22 150/53 99 Mechanical Ventilator 40 01/11/17 21:03 113 141/59 01/11/17 21:00 105 20 148/73 99 Mechanical Ventilator 40 01/11/17 20:54 106 16 40 01/11/17 20:00 102 01/11/17 20:00 40 01/11/17 20:00 98.0 102 18 141/59 100 Mechanical Ventilator 40 01/11/17 19:00 99 22 156/67 100 Mechanical Ventilator 40 01/11/17 18:52 110 20 40 01/11/17 18:00 99 23 152/52 100 Mechanical Ventilator 40 01/11/17 17:05 114 16 40 01/11/17 17:00 103 19 150/53 99 Mechanical Ventilator 40 01/11/17 16:00 40 01/11/17 16:00 97.9 106 18 149/52 100 Mechanical Ventilator 40 01/11/17 16:00 101 01/11/17 15:30 105 17 40 01/11/17 15:00 113 19 156/73 100 Mechanical Ventilator 40 01/11/17 14:00 101 17 137/33 100 Mechanical Ventilator 40 01/11/17 13:00 109 17 150/71 100 Mechanical Ventilator 40 01/11/17 12:58 118 18 40 01/11/17 12:00 40 01/11/17 12:00 106 01/11/17 12:00 98.1 109 18 153/58 100 Mechanical Ventilator 40 01/11/17 11:18 98 17 40 01/11/17 11:00 101 18 134/53 100 Mechanical Ventilator 40 01/11/17 10:00 103 18 143/46 100 Mechanical Ventilator 40 01/11/17 09:32 99 01/11/17 09:30 40 01/11/17 09:29 97 14 40 Status: awake Condition: critical HEENT: atraumatic, normocephalic Neck: full ROM Lungs: chest wall tender Heart: HR/BP stable Abdomen: soft Extremities: no C/C/E, edema Decubiti: location Accucheck: 155 Critical Care - Subjective ROS Limited/Unobtainable: Yes ICU Day: 26 Intubation Day: s/p trach Interval Events: colonoscopy yesterday showed ischemic colitis FI02: 40 Vent Support Breath Rate: 14 Vent Support Mode: AC Vent Tidal Volume: 500 Sputum Amount: Scant PEEP: 5.0 PIP: 36 Tube Feeding Amount: 35 I&O: Intake and Output 01/11/17 01/12/17 19:00 07:00 Intake Total 766.713 ml 732.57 ml Output Total 1110 ml 721 ml Balance -343.287 ml 11.57 ml Free Water 100 ml 60 ml IV Total 496.713 ml 262.57 ml Tube Feeding 140 ml 410 ml Other 30 ml Output Urine Total 1110 ml 720 ml Stool Total 1 ml # Bowel Movements 1 CXR: no change ET Position: 22 Labs: Laboratory Tests Test 01/11/17 16:00 01/11/17 18:09 01/12/17 05:15 Activated Partial Thromboplast Time 41 SEC (23-33) H 84 SEC (23-33) H 95 SEC (23-33) H White Blood Count 21.2 K/UL (4.8-10.8) H Red Blood Count 2.86 M/UL (4.20-5.40) L Hemoglobin 8.8 G/DL (12.0-16.0) L Hematocrit 27.0 % (37.0-47.0) L Mean Corpuscular Volume 94 FL (80-99) Mean Corpuscular Hemoglobin 30.8 PG (27.0-31.0) Mean Corpuscular Hemoglobin Concent 32.6 G/DL (32.0-36.0) Red Cell Distribution Width 14.9 % (11.6-14.8) H Platelet Count 324 K/UL (150-450) Mean Platelet Volume 7.3 FL (6.5-10.1) Neutrophils (%) (Auto) % (45.0-75.0) Lymphocytes (%) (Auto) % (20.0-45.0) Monocytes (%) (Auto) % (1.0-10.0) Eosinophils (%) (Auto) % (0.0-3.0) Basophils (%) (Auto) % (0.0-2.0) Neutrophils % (Manual) Pending Lymphocytes % (Manual) Pending Platelet Estimate Pending Platelet Morphology Pending Sodium Level 156 mEQ/L (135-145) H Potassium Level 3.6 mEQ/L (3.4-4.9) Chloride Level 113 mEQ/L (98-107) H Carbon Dioxide Level 39 mEQ/L (20-30) H Anion Gap 4 (5-15) L Blood Urea Nitrogen 38 mg/dL (7-23) H Creatinine 0.6 mg/dL (0.5-0.9) Estimat Glomerular Filtration Rate > 60 mL/min (>60) Glucose Level 161 mg/dL (74-106) H Uric Acid 7.7 mg/dL (3.0-7.5) H Calcium Level 8.1 mg/dL (8.6-10.2) L Phosphorus Level 3.2 mg/dL (2.5-4.8) Magnesium Level 2.6 mg/dL (1.7-2.5) H Total Bilirubin 0.5 mg/dL (0.0-1.2) Aspartate Amino Transf (AST/SGOT) 32 U/L (5-40) Alanine Aminotransferase (ALT/SGPT) 9 U/L (3-33) Alkaline Phosphatase 206 U/L (35-104) H Pro-B-Type Natriuretic Peptide 4139 pg/mL (0-125) H Total Protein 6.0 g/dL (6.6-8.7) L Albumin 2.2 g/dL (3.5-5.2) L Globulin 3.8 g/dL Albumin/Globulin Ratio 0.5 (1.0-2.7) L TONY BRIDGES January 12, 2017 09:11
--- NOTE | 2017-01-12 09:57 | General Progress Note ---
Progress Note Progress Note Pt is s/.p PEG, sp tracheostomy. Had colonoscopy showing possible treansverse colon ischemia Laboratory Tests Test 01/11/17 16:00 01/11/17 18:09 01/12/17 05:15 Activated Partial Thromboplast Time 41 SEC (23-33) H 84 SEC (23-33) H 95 SEC (23-33) H White Blood Count 21.2 K/UL (4.8-10.8) H Red Blood Count 2.86 M/UL (4.20-5.40) L Hemoglobin 8.8 G/DL (12.0-16.0) L Hematocrit 27.0 % (37.0-47.0) L Mean Corpuscular Volume 94 FL (80-99) Mean Corpuscular Hemoglobin 30.8 PG (27.0-31.0) Mean Corpuscular Hemoglobin Concent 32.6 G/DL (32.0-36.0) Red Cell Distribution Width 14.9 % (11.6-14.8) H Platelet Count 324 K/UL (150-450) Mean Platelet Volume 7.3 FL (6.5-10.1) Neutrophils (%) (Auto) % (45.0-75.0) Lymphocytes (%) (Auto) % (20.0-45.0) Monocytes (%) (Auto) % (1.0-10.0) Eosinophils (%) (Auto) % (0.0-3.0) Basophils (%) (Auto) % (0.0-2.0) Neutrophils % (Manual) Pending Lymphocytes % (Manual) Pending Platelet Estimate Pending Platelet Morphology Pending Sodium Level 156 mEQ/L (135-145) H Potassium Level 3.6 mEQ/L (3.4-4.9) Chloride Level 113 mEQ/L (98-107) H Carbon Dioxide Level 39 mEQ/L (20-30) H Anion Gap 4 (5-15) L Blood Urea Nitrogen 38 mg/dL (7-23) H Creatinine 0.6 mg/dL (0.5-0.9) Estimat Glomerular Filtration Rate > 60 mL/min (>60) Glucose Level 161 mg/dL (74-106) H Uric Acid 7.7 mg/dL (3.0-7.5) H Calcium Level 8.1 mg/dL (8.6-10.2) L Phosphorus Level 3.2 mg/dL (2.5-4.8) Magnesium Level 2.6 mg/dL (1.7-2.5) H Total Bilirubin 0.5 mg/dL (0.0-1.2) Aspartate Amino Transf (AST/SGOT) 32 U/L (5-40) Alanine Aminotransferase (ALT/SGPT) 9 U/L (3-33) Alkaline Phosphatase 206 U/L (35-104) H Pro-B-Type Natriuretic Peptide 4139 pg/mL (0-125) H Total Protein 6.0 g/dL (6.6-8.7) L Albumin 2.2 g/dL (3.5-5.2) L Globulin 3.8 g/dL Albumin/Globulin Ratio 0.5 (1.0-2.7) L trach site okay, abdomen soft. \ continue present management LISA LICEA January 12, 2017 09:57
[2017-01-12 10:07] LABS: BAND NEUTROPHILS % (MANUAL) 0 % (0-8); BASOPHILS % (MANUAL) 0 % (0-2); EOSINOPHILS % (MANUAL) 0 % (0-3); HYPOCHROMASIA 1+; LYMPHOCYTES % (MANUAL) 11 % (20-45); NEUTROPHILS % (MANUAL) 86 % (45-75); PLATELET ESTIMATE ADEQUATE; PLATELET MORPHOLOGY NORMAL; TOTAL CELLS COUNTED 100
--- NOTE | 2017-01-12 10:08 | General Progress Note ---
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 Mirtral Vavle prosthesis on anticoagulation Pulmonary HTN HypoAlbuminemia ARDS Plan: On allopurinol K supplement as needed reglan to IV Hydrocortisone IV Fluid challenge Keep bp above 100 syst by adjusting BP meds Optimize cardiac status K supplement as needed Adjust pulmonary status- Per GI / Surgery Avoid nephrotoxics monitor renal parameters Subjective ROS Limited/Unobtainable: Yes Allergies: Coded Allergies: No Known Allergies (Unverified , 09/28/14) Objective Last 24 Hour Vital Signs Date Time Temp Pulse Resp B/P Pulse Ox O2 Delivery O2 Flow Rate FiO2 01/12/17 09:07 88 112/63 01/12/17 09:00 78 16 35 01/12/17 09:00 87 22 112/63 96 Mechanical Ventilator 40 01/12/17 08:35 40 01/12/17 08:00 95 01/12/17 08:00 40 01/12/17 08:00 98.6 95 27 164/69 99 Mechanical Ventilator 40 01/12/17 07:00 80 24 145/45 99 Mechanical Ventilator 40 01/12/17 07:00 88 19 40 01/12/17 06:00 81 24 156/61 99 Mechanical Ventilator 40 01/12/17 05:20 89 14 40 01/12/17 05:00 86 26 149/58 99 Mechanical Ventilator 40 01/12/17 04:00 76 01/12/17 04:00 98.4 76 25 142/39 99 Mechanical Ventilator 40 01/12/17 04:00 40 01/12/17 03:12 77 15 40 01/12/17 03:00 76 22 145/56 99 Mechanical Ventilator 40 01/12/17 02:00 72 18 134/36 99 Mechanical Ventilator 40 01/12/17 01:03 72 16 40 01/12/17 01:00 73 23 159/49 99 Mechanical Ventilator 40 01/12/17 00:00 98.2 70 22 150/60 98 Mechanical Ventilator 40 01/12/17 00:00 40 01/12/17 00:00 73 01/11/17 23:15 76 18 40 01/11/17 23:00 73 22 159/45 98 Mechanical Ventilator 40 01/11/17 22:00 74 22 150/53 99 Mechanical Ventilator 40 01/11/17 21:03 113 141/59 01/11/17 21:00 105 20 148/73 99 Mechanical Ventilator 40 01/11/17 20:54 106 16 40 01/11/17 20:00 102 01/11/17 20:00 40 01/11/17 20:00 98.0 102 18 141/59 100 Mechanical Ventilator 40 01/11/17 19:00 99 22 156/67 100 Mechanical Ventilator 40 01/11/17 18:52 110 20 40 01/11/17 18:00 99 23 152/52 100 Mechanical Ventilator 40 01/11/17 17:05 114 16 40 01/11/17 17:00 103 19 150/53 99 Mechanical Ventilator 40 01/11/17 16:00 40 01/11/17 16:00 97.9 106 18 149/52 100 Mechanical Ventilator 40 01/11/17 16:00 101 01/11/17 15:30 105 17 40 01/11/17 15:00 113 19 156/73 100 Mechanical Ventilator 40 01/11/17 14:00 101 17 137/33 100 Mechanical Ventilator 40 01/11/17 13:00 109 17 150/71 100 Mechanical Ventilator 40 01/11/17 12:58 118 18 40 01/11/17 12:00 40 01/11/17 12:00 106 01/11/17 12:00 98.1 109 18 153/58 100 Mechanical Ventilator 40 01/11/17 11:18 98 17 40 01/11/17 11:00 101 18 134/53 100 Mechanical Ventilator 40 Intake and Output 01/11/17 01/12/17 19:00 07:00 Intake Total 766.713 ml 732.57 ml Output Total 1110 ml 721 ml Balance -343.287 ml 11.57 ml Free Water 100 ml 60 ml IV Total 496.713 ml 262.57 ml Tube Feeding 140 ml 410 ml Other 30 ml Output Urine Total 1110 ml 720 ml Stool Total 1 ml # Bowel Movements 1 Laboratory Tests 01/11/17 16:00: Activated Partial Thromboplast Time 41H 01/11/17 18:09: Activated Partial Thromboplast Time 84H 01/12/17 05:15: Activated Partial Thromboplast Time 95H, White Blood Count 21.2H, Red Blood Count 2.86L, Hemoglobin 8.8L, Hematocrit 27.0L, Mean Corpuscular Volume 94, Mean Corpuscular Hemoglobin 30.8, Mean Corpuscular Hemoglobin Concent 32.6, Red Cell Distribution Width 14.9H, Platelet Count 324, Mean Platelet Volume 7.3, Neutrophils (%) (Auto) , Lymphocytes (%) (Auto) , Monocytes (%) (Auto) , Eosinophils (%) (Auto) , Basophils (%) (Auto) , Neutrophils % (Manual) [Pending] , Lymphocytes % (Manual) [Pending], Platelet Estimate [Pending], Platelet Morphology [Pending], Sodium Level 156H, Potassium Level 3.6, Chloride Level 113H, Carbon Dioxide Level 39H, Anion Gap 4L, Blood Urea Nitrogen 38H, Creatinine 0.6, Estimat Glomerular Filtration Rate > 60, Glucose Level 161H, Uric Acid 7.7H, Calcium Level 8.1L, Phosphorus Level 3.2, Magnesium Level 2.6H, Total Bilirubin 0.5, Aspartate Amino Transf (AST/SGOT) 32, Alanine Aminotransferase (ALT/SGPT) 9, Alkaline Phosphatase 206H, Pro-B-Type Natriuretic Peptide 4139H, Total Protein 6.0L, Albumin 2.2L, Globulin 3.8, Albumin/Globulin Ratio 0.5L Height (Feet): 5 Height (Inches): 1.00 Weight (Pounds): 200 General Appearance: no apparent distress Respiratory/Chest: decreased breath sounds Abdomen: distended Objective other PE not changed KAMINI SNOW January 12, 2017 10:08
[2017-01-12] MEDS: Heparin 25,000u/D5W 500ml 500 ML IV SCH (12:28)
[2017-01-12] MEDS: Morphine Sulfate 4mg/ml Inj IVP PRN (13:07)
--- NOTE | 2017-01-12 15:51 | Cardiology Progress Note ---
Assessment/Plan Problem List: (1) Cholelithiasis (2) Atrial fibrillation (3) Abdominal pain (4) Respiratory failure requiring intubation Status: stable, progressing Status Narrative Pt w/ mech MVR, bioprosthetic avr, Pemanent af - controlled ventricular rates Adm w/ pancreatitis and suffered resp arrest, requiring intubation/ vent Sh is s/p g tube placement Assessment/Plan Continue iv heparin for mech MV and AF Ventricular rates controlled w/ atenolol. Management of pancreatitis, resp failure per primary team. Subjective Subjective Pt intubated/awake. Objective Last 24 Hour Vital Signs Date Time Temp Pulse Resp B/P Pulse Ox O2 Delivery O2 Flow Rate FiO2 01/12/17 15:00 77 19 134/45 96 Mechanical Ventilator 40 01/12/17 14:13 98.6 01/12/17 14:00 62 18 122/72 97 Mechanical Ventilator 40 01/12/17 13:20 65 14 35 01/12/17 13:00 78 16 153/51 97 Mechanical Ventilator 40 01/12/17 12:00 40 01/12/17 12:00 70 01/12/17 12:00 98.6 70 19 153/51 95 Mechanical Ventilator 40 01/12/17 11:00 72 20 132/56 97 Mechanical Ventilator 40 01/12/17 11:00 76 14 35 01/12/17 10:00 74 16 126/43 97 Mechanical Ventilator 40 01/12/17 09:07 88 112/63 01/12/17 09:00 78 16 35 01/12/17 09:00 87 22 112/63 96 Mechanical Ventilator 40 01/12/17 08:35 40 01/12/17 08:00 95 01/12/17 08:00 40 01/12/17 08:00 98.6 95 27 164/69 99 Mechanical Ventilator 40 01/12/17 07:00 80 24 145/45 99 Mechanical Ventilator 40 01/12/17 07:00 88 19 40 01/12/17 06:00 81 24 156/61 99 Mechanical Ventilator 40 01/12/17 05:20 89 14 40 01/12/17 05:00 86 26 149/58 99 Mechanical Ventilator 40 01/12/17 04:00 76 01/12/17 04:00 98.4 76 25 142/39 99 Mechanical Ventilator 40 01/12/17 04:00 40 01/12/17 03:12 77 15 40 01/12/17 03:00 76 22 145/56 99 Mechanical Ventilator 40 01/12/17 02:00 72 18 134/36 99 Mechanical Ventilator 40 01/12/17 01:03 72 16 40 01/12/17 01:00 73 23 159/49 99 Mechanical Ventilator 40 01/12/17 00:00 98.2 70 22 150/60 98 Mechanical Ventilator 40 01/12/17 00:00 40 01/12/17 00:00 73 01/11/17 23:15 76 18 40 01/11/17 23:00 73 22 159/45 98 Mechanical Ventilator 40 01/11/17 22:00 74 22 150/53 99 Mechanical Ventilator 40 01/11/17 21:03 113 141/59 01/11/17 21:00 105 20 148/73 99 Mechanical Ventilator 40 01/11/17 20:54 106 16 40 01/11/17 20:00 102 01/11/17 20:00 40 01/11/17 20:00 98.0 102 18 141/59 100 Mechanical Ventilator 40 01/11/17 19:00 99 22 156/67 100 Mechanical Ventilator 40 01/11/17 18:52 110 20 40 01/11/17 18:00 99 23 152/52 100 Mechanical Ventilator 40 01/11/17 17:05 114 16 40 01/11/17 17:00 103 19 150/53 99 Mechanical Ventilator 40 01/11/17 16:00 40 01/11/17 16:00 97.9 106 18 149/52 100 Mechanical Ventilator 40 01/11/17 16:00 101 General Appearance: WD/WN, on vent EENT: PERRL/EOMI, other - et tube in place Neck: supple, no JVD, other - trach Rhythm: Afib Cardiovascular: no gallop/murmur, irregularly irregular Respiratory/Chest: other - fairly clear anteriorly Abdomen: soft, other - dec BS. Mild L sided tenderness. g tube - site clean Extremities: no swelling Intake and Output 01/11/17 01/12/17 19:00 07:00 Intake Total 766.713 ml 756.44 ml Output Total 1110 ml 721 ml Balance -343.287 ml 35.44 ml Free Water 100 ml 60 ml IV Total 496.713 ml 286.44 ml Tube Feeding 140 ml 410 ml Other 30 ml Output Urine Total 1110 ml 720 ml Stool Total 1 ml # Bowel Movements 1 Laboratory Tests Test 01/11/17 16:00 01/11/17 18:09 01/12/17 05:15 Activated Partial Thromboplast Time 41 SEC (23-33) H 84 SEC (23-33) H 95 SEC (23-33) H White Blood Count 21.2 K/UL (4.8-10.8) H Red Blood Count 2.86 M/UL (4.20-5.40) L Hemoglobin 8.8 G/DL (12.0-16.0) L Hematocrit 27.0 % (37.0-47.0) L Mean Corpuscular Volume 94 FL (80-99) Mean Corpuscular Hemoglobin 30.8 PG (27.0-31.0) Mean Corpuscular Hemoglobin Concent 32.6 G/DL (32.0-36.0) Red Cell Distribution Width 14.9 % (11.6-14.8) H Platelet Count 324 K/UL (150-450) Mean Platelet Volume 7.3 FL (6.5-10.1) Neutrophils (%) (Auto) % (45.0-75.0) Lymphocytes (%) (Auto) % (20.0-45.0) Monocytes (%) (Auto) % (1.0-10.0) Eosinophils (%) (Auto) % (0.0-3.0) Basophils (%) (Auto) % (0.0-2.0) Differential Total Cells Counted 100 Neutrophils % (Manual) 86 % (45-75) H Lymphocytes % (Manual) 11 % (20-45) L Monocytes % (Manual) 3 % (1-10) Eosinophils % (Manual) 0 % (0-3) Basophils % (Manual) 0 % (0-2) Band Neutrophils 0 % (0-8) Platelet Estimate Adequate Platelet Morphology Normal Hypochromasia 1+ Sodium Level 156 mEQ/L (135-145) H Potassium Level 3.6 mEQ/L (3.4-4.9) Chloride Level 113 mEQ/L (98-107) H Carbon Dioxide Level 39 mEQ/L (20-30) H Anion Gap 4 (5-15) L Blood Urea Nitrogen 38 mg/dL (7-23) H Creatinine 0.6 mg/dL (0.5-0.9) Estimat Glomerular Filtration Rate > 60 mL/min (>60) Glucose Level 161 mg/dL (74-106) H Uric Acid 7.7 mg/dL (3.0-7.5) H Calcium Level 8.1 mg/dL (8.6-10.2) L Phosphorus Level 3.2 mg/dL (2.5-4.8) Magnesium Level 2.6 mg/dL (1.7-2.5) H Total Bilirubin 0.5 mg/dL (0.0-1.2) Aspartate Amino Transf (AST/SGOT) 32 U/L (5-40) Alanine Aminotransferase (ALT/SGPT) 9 U/L (3-33) Alkaline Phosphatase 206 U/L (35-104) H Pro-B-Type Natriuretic Peptide 4139 pg/mL (0-125) H Total Protein 6.0 g/dL (6.6-8.7) L Albumin 2.2 g/dL (3.5-5.2) L Globulin 3.8 g/dL Albumin/Globulin Ratio 0.5 (1.0-2.7) L TASHA CASTANEDA January 12, 2017 15:51
--- NOTE | 2017-01-12 17:10 | General Progress Note ---
Assessment/Plan Assessment/Plan Assessment/Plan Problems: (1) Pancreatitis ICD Codes: K85.9 - Acute pancreatitis, unspecified SNOMED: 75575163 Qualifiers: Qualified Codes: K85.10 - Biliary acute pancreatitis without necrosis or infection (2) Abdominal pain ICD Codes: R10.9 - Unspecified abdominal pain SNOMED: 42939963, [id number] (3) Iron deficiency anemia ICD Codes: D50.9 - Iron deficiency anemia, unspecified SNOMED: 10092351 (4) Colon polyp ICD Codes: K63.5 - Polyp of colon SNOMED: 95792313 Status: stable, progressing Assessment/Plan Pancreatitis - abdomen still very distended cholelithiasis, no e/o choledocholithiasis rising WBC S/P trach APCT reviewed>> New finding of a 6 x 4.4 x 4.9 cm masslike lesion in the left paracolic gutter, which compresses and splays but does not appear to obstruct an adjacent small bowel loop, see full report. 01/04/17 cdiff negative OB stool positive s/p PEG s/p colonoscopy >> high suspicion for ischemic colitis, fu biopsy restart GTFs monitor H&H, transfuse prn reglan ATC GT site care >> GT site bleed >> see surgical note. ppi BID abx monitor amylase/lipase follow labs supportive care Subjective Allergies: Coded Allergies: No Known Allergies (Unverified , 09/28/14) Subjective above noted denies abd pain family at bedside d/w RN Objective Last 24 Hour Vital Signs Date Time Temp Pulse Resp B/P Pulse Ox O2 Delivery O2 Flow Rate FiO2 01/12/17 16:00 92 21 120/39 99 Mechanical Ventilator 40 01/12/17 16:00 40 01/12/17 16:00 69 01/12/17 15:20 71 15 35 01/12/17 15:00 77 19 134/45 96 Mechanical Ventilator 40 01/12/17 14:13 98.6 01/12/17 14:00 62 18 122/72 97 Mechanical Ventilator 40 01/12/17 13:20 65 14 35 01/12/17 13:00 78 16 153/51 97 Mechanical Ventilator 40 01/12/17 12:00 40 01/12/17 12:00 70 01/12/17 12:00 98.6 70 19 153/51 95 Mechanical Ventilator 40 5/6/17 11:00 72 20 132/56 97 Mechanical Ventilator 40 5/6/17 11:00 76 14 35 5/6/17 10:00 74 16 126/43 97 Mechanical Ventilator 40 5/6/17 09:07 88 112/63 5/6/17 09:00 78 16 35 5/6/17 09:00 87 22 112/63 96 Mechanical Ventilator 40 /6/17 08:35 40 5/6/17 08:00 95 617 08:00 40 /6 08:00 98.6 95 27 164/69 99 Mechanical Ventilator 40 /6/17 07:00 80 24 145/45 99 Mechanical Ventilator 40 /6/17 07:00 88 19 40 /6/17 06:00 81 24 156/61 99 Mechanical Ventilator 40 6/ 05:20 89 14 40 5/6/17 05:00 86 26 149/58 99 Mechanical Ventilator 40 /6/17 04:00 76 01/12/17 04:00 98.4 76 25 142/39 99 Mechanical Ventilator 40 6/17 04:00 40 /6/17 03:12 77 15 40 /6/17 03:00 76 22 145/56 99 Mechanical Ventilator 40 617 02:00 72 18 134/36 99 Mechanical Ventilator 40 617 01:03 72 16 40 5/6/17 01:00 73 23 159/49 99 Mechanical Ventilator 40 /6/17 00:00 98.2 70 22 150/60 98 Mechanical Ventilator 40 5/6/17 00:00 40 5/6/17 00:00 73 01/11/17 23:15 76 18 40 5/5/17 23:00 73 22 159/45 98 Mechanical Ventilator 40 5/5/17 22:00 74 22 150/53 99 Mechanical Ventilator 40 5/5/17 21:03 113 141/59 5/5/17 21:00 105 20 148/73 99 Mechanical Ventilator 40 5/5/17 20:54 106 16 40 5/5/17 20:00 102 /5/17 20:00 40 5/5/17 20:00 98.0 102 18 141/59 100 Mechanical Ventilator 40 5/5/17 19:00 99 22 156/67 100 Mechanical Ventilator 40 5/5/17 18:52 110 20 40 01/11/17 18:00 99 23 152/52 100 Mechanical Ventilator 40 Intake and Output 01/11/17 01/12/17 19:00 07:00 Intake Total 766.713 ml 756.44 ml Output Total 1110 ml 721 ml Balance -343.287 ml 35.44 ml Free Water 100 ml 60 ml IV Total 496.713 ml 286.44 ml Tube Feeding 140 ml 410 ml Other 30 ml Output Urine Total 1110 ml 720 ml Stool Total 1 ml # Bowel Movements 1 Laboratory Tests 01/11/17 18:09: Activated Partial Thromboplast Time 84H 01/12/17 05:15: Activated Partial Thromboplast Time 95H, White Blood Count 21.2H, Red Blood Count 2.86L, Hemoglobin 8.8L, Hematocrit 27.0L, Mean Corpuscular Volume 94, Mean Corpuscular Hemoglobin 30.8, Mean Corpuscular Hemoglobin Concent 32.6, Red Cell Distribution Width 14.9H, Platelet Count 324, Mean Platelet Volume 7.3, Neutrophils (%) (Auto) , Lymphocytes (%) (Auto) , Monocytes (%) (Auto) , Eosinophils (%) (Auto) , Basophils (%) (Auto) , Differential Total Cells Counted 100, Neutrophils % (Manual) 86H, Lymphocytes % (Manual) 11L, Monocytes % (Manual) 3, Eosinophils % (Manual) 0, Basophils % (Manual) 0, Band Neutrophils 0, Platelet Estimate Adequate, Platelet Morphology Normal, Hypochromasia 1+, Sodium Level 156H, Potassium Level 3.6, Chloride Level 113H, Carbon Dioxide Level 39H, Anion Gap 4L, Blood Urea Nitrogen 38H, Creatinine 0.6 , Estimat Glomerular Filtration Rate > 60, Glucose Level 161H, Uric Acid 7.7H, Calcium Level 8.1L, Phosphorus Level 3.2, Magnesium Level 2.6H, Total Bilirubin 0.5, Aspartate Amino Transf (AST/SGOT) 32, Alanine Aminotransferase (ALT/SGPT) 9 , Alkaline Phosphatase 206H, Pro-B-Type Natriuretic Peptide 4139H, Total Protein 6.0L, Albumin 2.2L, Globulin 3.8, Albumin/Globulin Ratio 0.5L Height (Feet): 5 Height (Inches): 1.00 Weight (Pounds): 200 Objective Elderly woman NCAT, (+) Trach responsive supple CTA RRR Abd soft NT distended no edema MAXIME EVANS January 12, 2017 17:10
--- NOTE | 2017-01-12 18:37 | Infectious Diseases Prog Note ---
Assessment/Plan Assessment/Plan ASSESSMENT: Fever, SP leukocytosis ( probable due to GI bleed, and Ischemic colitis ) Pancreatitis improving CT: Findings compatible with marked worsening of acute pancreatitis MRCP : Cholelithiasis. There is also a calculus within the duct adjacent to the gallbladder Pancreatic Enzymes improving CT of Abd : reviewed cholelithiasis : US of liver : Incidental finding of cholelithiasis and mild gallbladder wall thickening positive sonographic Diaz's sign LFT : Nl UTI : Mandy SCx : Mandy ( colonizer ) SP s/p colonoscopy >> high suspicion for ischemic colitis SP PEG 01/02 VDRF: SP trach 01/01 Cxray : Increase in bilateral congestive changes with persistent small right , probable new left pleural effusions ARF SP aortic stenosis mitral stenosis status post mitral valve replacement AFib Pulmonary hypertension PLAN: - cont on IV Merrem d# 10/ 14 , , oral Amoxi d# 6 / 7 ( 01/07 SP Zyvox d#5 and Flagyl d# 4 ) ( 12/28 SP Diflucan d# 10 ) ( 12/24 SP Merrem d# 14 /14 ) - monitor CBC, temperatures, - monitor LFT - GI f/u - Sx is following for possible Cholecystectomy later - VDRF - Dopamine ( renal dose ) - monitor Cx ( Bl ) - PRBC transfusion PRN Subjective Constitutional: Denies: anorexia, chills, drenching sweats, fatigue, fever, no symptoms, other Allergies: Coded Allergies: No Known Allergies (Unverified , 09/28/14) Subjective on Vent Objective Vital Signs Last 24 Hour Vital Signs Date Time Temp Pulse Resp B/P Pulse Ox O2 Delivery O2 Flow Rate FiO2 01/12/17 18:00 74 18 164/49 97 Mechanical Ventilator 40 01/12/17 17:15 75 14 35 01/12/17 17:00 98.4 62 21 128/53 94 Mechanical Ventilator 40 01/12/17 16:00 92 21 120/39 99 Mechanical Ventilator 40 01/12/17 16:00 40 01/12/17 16:00 69 01/12/17 15:20 71 15 35 01/12/17 15:00 77 19 134/45 96 Mechanical Ventilator 40 01/12/17 14:13 98.6 01/12/17 14:00 62 18 122/72 97 Mechanical Ventilator 40 01/12/17 13:20 65 14 35 5/6/17 13:00 78 16 153/51 97 Mechanical Ventilator 40 6 12:00 40 /6 12:00 70 01/12/17 12:00 98.6 70 19 153/51 95 Mechanical Ventilator 40 617 11:00 72 20 132/56 97 Mechanical Ventilator 40 /6/17 11:00 76 14 35 617 10:00 74 16 126/43 97 Mechanical Ventilator 40 01/12/17 09:07 88 112/63 01/12/17 09:00 78 16 35 01/12/17 09:00 87 22 112/63 96 Mechanical Ventilator 40 01/12/17 08:35 40 01/12/17 08:00 95 01/12/17 08:00 40 01/12/17 08:00 98.6 95 27 164/69 99 Mechanical Ventilator 40 01/12/17 07:00 80 24 145/45 99 Mechanical Ventilator 40 01/12/17 07:00 88 19 40 01/12/17 06:00 81 24 156/61 99 Mechanical Ventilator 40 01/12/17 05:20 89 14 40 01/12/17 05:00 86 26 149/58 99 Mechanical Ventilator 40 6 04:00 76 01/12/17 04:00 98.4 76 25 142/39 99 Mechanical Ventilator 40 01/12/17 04:00 40 01/12/17 03:12 77 15 40 617 03:00 76 22 145/56 99 Mechanical Ventilator 40 6 02:00 72 18 134/36 99 Mechanical Ventilator 40 617 01:03 72 16 40 6 01:00 73 23 159/49 99 Mechanical Ventilator 40 6/17 00:00 98.2 70 22 150/60 98 Mechanical Ventilator 40 /6/17 00:00 40 /6/17 00:00 73 01/11/17 23:15 76 18 40 01/11/17 23:00 73 22 159/45 98 Mechanical Ventilator 40 //17 22:00 74 22 150/53 99 Mechanical Ventilator 40 5//17 21:03 113 141/59 01/11/17 21:00 105 20 148/73 99 Mechanical Ventilator 40 01/11/17 20:54 106 16 40 5/5/17 20:00 102 5/5/17 20:00 40 01/11/17 20:00 98.0 102 18 141/59 100 Mechanical Ventilator 40 01/11/17 19:00 99 22 156/67 100 Mechanical Ventilator 40 01/11/17 18:52 110 20 40 Height (Feet): 5 Height (Inches): 1.00 Weight (Pounds): 200 HEENT: anicteric Respiratory/Chest: normal breath sounds Cardiovascular: regularly irregular Abdomen: no organomegaly Laboratory Tests Test 01/12/17 05:15 White Blood Count 21.2 K/UL (4.8-10.8) H Red Blood Count 2.86 M/UL (4.20-5.40) L Hemoglobin 8.8 G/DL (12.0-16.0) L Hematocrit 27.0 % (37.0-47.0) L Mean Corpuscular Volume 94 FL (80-99) Mean Corpuscular Hemoglobin 30.8 PG (27.0-31.0) Mean Corpuscular Hemoglobin Concent 32.6 G/DL (32.0-36.0) Red Cell Distribution Width 14.9 % (11.6-14.8) H Platelet Count 324 K/UL (150-450) Mean Platelet Volume 7.3 FL (6.5-10.1) Neutrophils (%) (Auto) % (45.0-75.0) Lymphocytes (%) (Auto) % (20.0-45.0) Monocytes (%) (Auto) % (1.0-10.0) Eosinophils (%) (Auto) % (0.0-3.0) Basophils (%) (Auto) % (0.0-2.0) Differential Total Cells Counted 100 Neutrophils % (Manual) 86 % (45-75) H Lymphocytes % (Manual) 11 % (20-45) L Monocytes % (Manual) 3 % (1-10) Eosinophils % (Manual) 0 % (0-3) Basophils % (Manual) 0 % (0-2) Band Neutrophils 0 % (0-8) Platelet Estimate Adequate Platelet Morphology Normal Hypochromasia 1+ Activated Partial Thromboplast Time 95 SEC (23-33) H Sodium Level 156 mEQ/L (135-145) H Potassium Level 3.6 mEQ/L (3.4-4.9) Chloride Level 113 mEQ/L (98-107) H Carbon Dioxide Level 39 mEQ/L (20-30) H Anion Gap 4 (5-15) L Blood Urea Nitrogen 38 mg/dL (7-23) H Creatinine 0.6 mg/dL (0.5-0.9) Estimat Glomerular Filtration Rate > 60 mL/min (>60) Glucose Level 161 mg/dL (74-106) H Uric Acid 7.7 mg/dL (3.0-7.5) H Calcium Level 8.1 mg/dL (8.6-10.2) L Phosphorus Level 3.2 mg/dL (2.5-4.8) Magnesium Level 2.6 mg/dL (1.7-2.5) H Total Bilirubin 0.5 mg/dL (0.0-1.2) Aspartate Amino Transf (AST/SGOT) 32 U/L (5-40) Alanine Aminotransferase (ALT/SGPT) 9 U/L (3-33) Alkaline Phosphatase 206 U/L (35-104) H Pro-B-Type Natriuretic Peptide 4139 pg/mL (0-125) H Total Protein 6.0 g/dL (6.6-8.7) L Albumin 2.2 g/dL (3.5-5.2) L Globulin 3.8 g/dL Albumin/Globulin Ratio 0.5 (1.0-2.7) L Current Medications Medications (Trade) Dose Ordered Sig/Lisbeth Route PRN Reason Start Time Stop Time Status Last Admin Dose Admin Acetaminophen (Tylenol) 650 mg Q4H PRN ORAL fever 12/17/16 08:00 01/16/17 07:59 01/11/17 13:45 Allopurinol (Allopurinol) 300 mg DAILY GT 01/07/17 16:30 02/06/17 16:29 01/12/17 09:07 Amoxicillin (Amoxil) 500 mg EVERY 8 HOURS GT 01/07/17 15:00 01/14/17 14:59 01/12/17 14:28 Atenolol (Tenormin) 25 mg DAILY ORAL 01/11/17 19:45 02/10/17 19:44 01/12/17 09:07 Dextrose (Dextrose 50%) STAT PRN IV Hypoglycemia 12/17/16 07:30 01/16/17 07:29 Heparin Sodium/ Dextrose (Heparin) 500 ml @ 23.587 mls/ hr adjust per protocol IV 01/11/17 09:42 02/09/17 19:00 01/12/17 12:28 Hydrocortisone (Anusol HC) 1 supp BIDPRN PRN RECTAL Anal discomfort/swelling/bleed 01/01/17 17:00 01/31/17 16:59 Hydrocortisone 50 mg 50 mg EVERY 12 HOURS IV 01/09/17 21:00 02/08/17 20:59 01/12/17 09:06 Insulin Aspart (NovoLOG) No Dose Q6HR SUBQ 12/17/16 12:00 01/16/17 11:59 01/12/17 17:48 Lansoprazole (Prevacid) 30 mg Q12HR GT 01/11/17 21:00 02/10/17 20:59 01/12/17 09:07 Meropenem/Sodium Chloride (Merrem/Sodium Chloride) 110 ml @ 220 mls/hr Q12HR@0200,1400 IVPB 01/07/17 14:00 01/16/17 13:59 01/12/17 14:29 Metoclopramide HCl 10 mg 10 mg Q6H IVP 01/06/17 18:00 02/05/17 17:59 01/12/17 17:46 Morphine Sulfate (Morphine Sulfate) 4 mg Q4H PRN IVP PAIN 4-10 01/07/17 11:45 01/14/17 11:44 01/12/17 13:07 Ondansetron HCl (Zofran) 4 mg EVERY 4 HOURS PRN IVP Nausea & Vomiting 01/03/17 07:00 02/02/17 06:59 01/07/17 18:31 Temazepam (Restoril) 15 mg HSPRN PRN ORAL Insomnia 01/11/17 21:00 01/18/17 20:59 01/11/17 23:56 OSCAR ANDERSON M.D. January 12, 2017 18:37
[2017-01-13] VITALS (24 sets, daily range): BP systolic 114–158; BP diastolic 24–65
[2017-01-13] MEDS: NovoLOG Insulin Flexpen SUBQ SCH ×5 (00:07→23:52)
[2017-01-13] MEDS: Meropenem 1gm/NS 110ml IVPB SCH ×4 (01:32→14:55)
[2017-01-13] MEDS: Metoclopramide 10mg/2ml Inj IVP SCH ×4 (05:55→23:51)
[2017-01-13] MEDS: Amoxicillin 250mg/5ml susp GT SCH (05:55)
[2017-01-13] MEDS: Morphine Sulfate 4mg/ml Inj IVP PRN (05:58)
[2017-01-13 06:38] LABS: MEAN CORPUSCULAR HEMOGLOBIN 30.3 PG (27.0-31.0); MEAN CORPUSCULAR HGB CONC 31.6 G/DL (32.0-36.0); MEAN CORPUSCULAR VOLUME 96 FL (80-99); PLATELET COUNT 280 K/UL (150-450); RED CELL DISTRIBUTION WIDTH 15.4 % (11.6-14.8); WHITE BLOOD COUNT 18.7 K/UL (4.8-10.8)
[2017-01-13 07:10] LABS: ALANINE AMINOTRANSFERASE 11 U/L (3-33); ALBUMIN/GLOBULIN RATIO 0.6 (1.0-2.7); ANION GAP 7 (5-15); ASPARTATE AMINO TRANSFERASE 36 U/L (5-40); CARBON DIOXIDE 38 mEQ/L (20-30); CHLORIDE 112 mEQ/L (98-107); CREATININE 0.6 mg/dL (0.5-0.9); GLOMERULAR FILTRATION RATE > 60 mL/min (>60); HEMOLYSIS 1; POTASSIUM 3.2 mEQ/L (3.4-4.9); SODIUM 157 mEQ/L (135-145); TOTAL PROTEIN 5.7 g/dL (6.6-8.7)
[2017-01-13] MEDS: Hydrocortisone 100mg Inj IV SCH ×2 (08:46→21:27)
[2017-01-13] MEDS: Atenolol 25mg tab ORAL SCH (08:46)
--- NOTE | 2017-01-13 09:08 | Infectious Diseases Prog Note ---
Assessment/Plan Assessment/Plan A: Pancreatitis Ischemic bowel Cholelithiasis, Cholecystitis Mechanical mitral valve Atrial fibrillation Leukocytosis Respiratory failure P; Continue Meropenem, Discontinue Amoxicillin Subjective ROS Limited/Unobtainable: Yes Gastrointestinal/Abdominal: Reports: other - abdominal pain Allergies: Coded Allergies: No Known Allergies (Unverified , 09/28/14) Objective Vital Signs Last 24 Hour Vital Signs Date Time Temp Pulse Resp B/P Pulse Ox O2 Delivery O2 Flow Rate FiO2 01/13/17 08:46 85 134/36 01/13/17 08:00 98.7 78 17 134/36 97 Mechanical Ventilator 35 01/13/17 08:00 35 01/13/17 08:00 77 01/13/17 07:17 81 16 35 01/13/17 07:00 76 17 132/37 98 Mechanical Ventilator 35 01/13/17 06:00 72 17 138/50 98 Mechanical Ventilator 35 01/13/17 05:05 71 16 35 01/13/17 05:00 78 22 153/47 99 Mechanical Ventilator 35 01/13/17 04:00 35 01/13/17 04:00 98.0 79 26 140/54 99 Mechanical Ventilator 35 01/13/17 04:00 78 01/13/17 03:07 16 17 35 01/13/17 03:00 81 26 146/54 99 Mechanical Ventilator 35 01/13/17 02:00 70 18 142/24 99 Mechanical Ventilator 35 01/13/17 01:00 78 20 143/42 98 Mechanical Ventilator 35 01/13/17 00:40 85 17 35 01/13/17 00:00 35 01/13/17 00:00 70 01/13/17 00:00 98.2 79 21 158/41 98 Mechanical Ventilator 35 01/12/17 23:00 70 19 140/50 98 Mechanical Ventilator 35 01/12/17 22:51 76 17 35 01/12/17 22:00 69 20 123/52 97 Mechanical Ventilator 35 01/12/17 21:00 81 20 100/34 97 Mechanical Ventilator 35 01/12/17 20:57 84 16 35 01/12/17 20:00 68 01/12/17 20:00 98.0 68 18 147/40 97 Mechanical Ventilator 35 01/12/17 20:00 35 01/12/17 18:51 78 17 35 01/12/17 18:00 74 18 164/49 97 Mechanical Ventilator 40 01/12/17 17:15 75 14 35 01/12/17 17:00 98.4 62 21 128/53 94 Mechanical Ventilator 40 01/12/17 16:00 92 21 120/39 99 Mechanical Ventilator 40 01/12/17 16:00 40 01/12/17 16:00 69 01/12/17 15:20 71 15 35 01/12/17 15:00 77 19 134/45 96 Mechanical Ventilator 40 01/12/17 14:13 98.6 01/12/17 14:00 62 18 122/72 97 Mechanical Ventilator 40 01/12/17 13:20 65 14 35 01/12/17 13:00 78 16 153/51 97 Mechanical Ventilator 40 01/12/17 12:00 40 01/12/17 12:00 70 01/12/17 12:00 98.6 70 19 153/51 95 Mechanical Ventilator 40 01/12/17 11:00 72 20 132/56 97 Mechanical Ventilator 40 01/12/17 11:00 76 14 35 01/12/17 10:00 74 16 126/43 97 Mechanical Ventilator 40 01/12/17 09:07 88 112/63 01/12/17 09:00 78 16 35 01/12/17 09:00 87 22 112/63 96 Mechanical Ventilator 40 Height (Feet): 5 Height (Inches): 1.00 Weight (Pounds): 200 HEENT: status post trach Respiratory/Chest: other - on ventilator, blood in tracheal tube Cardiovascular: normal rate, other - left arm PICC line Abdomen: distended, other - GT feeding, small bleeding around GT Extremities: other - generalized edema Laboratory Tests Test 01/13/17 05:15 White Blood Count 18.7 K/UL (4.8-10.8) H Red Blood Count 2.70 M/UL (4.20-5.40) L Hemoglobin 8.2 G/DL (12.0-16.0) L Hematocrit 26.0 % (37.0-47.0) L Mean Corpuscular Volume 96 FL (80-99) Mean Corpuscular Hemoglobin 30.3 PG (27.0-31.0) Mean Corpuscular Hemoglobin Concent 31.6 G/DL (32.0-36.0) L Red Cell Distribution Width 15.4 % (11.6-14.8) H Platelet Count 280 K/UL (150-450) Mean Platelet Volume 8.0 FL (6.5-10.1) Neutrophils (%) (Auto) % (45.0-75.0) Lymphocytes (%) (Auto) % (20.0-45.0) Monocytes (%) (Auto) % (1.0-10.0) Eosinophils (%) (Auto) % (0.0-3.0) Basophils (%) (Auto) % (0.0-2.0) Neutrophils % (Manual) Pending Lymphocytes % (Manual) Pending Platelet Estimate Pending Platelet Morphology Pending Activated Partial Thromboplast Time 85 SEC (23-33) H Sodium Level 157 mEQ/L (135-145) H Potassium Level 3.2 mEQ/L (3.4-4.9) L Chloride Level 112 mEQ/L (98-107) H Carbon Dioxide Level 38 mEQ/L (20-30) H Anion Gap 7 (5-15) Blood Urea Nitrogen 34 mg/dL (7-23) H Creatinine 0.6 mg/dL (0.5-0.9) Estimat Glomerular Filtration Rate > 60 mL/min (>60) Glucose Level 160 mg/dL (74-106) H Calcium Level 8.0 mg/dL (8.6-10.2) L Total Bilirubin 0.5 mg/dL (0.0-1.2) Aspartate Amino Transf (AST/SGOT) 36 U/L (5-40) Alanine Aminotransferase (ALT/SGPT) 11 U/L (3-33) Alkaline Phosphatase 236 U/L (35-104) H Pro-B-Type Natriuretic Peptide 55948 pg/mL (0-125) H Total Protein 5.7 g/dL (6.6-8.7) L Albumin 2.2 g/dL (3.5-5.2) L Globulin 3.5 g/dL Albumin/Globulin Ratio 0.6 (1.0-2.7) L Current Medications Medications (Trade) Dose Ordered Sig/Lisbeth Route PRN Reason Start Time Stop Time Status Last Admin Dose Admin Acetaminophen (Tylenol) 650 mg Q4H PRN ORAL fever 12/17/16 08:00 01/16/17 07:59 01/11/17 13:45 Allopurinol (Allopurinol) 300 mg DAILY GT 01/07/17 16:30 02/06/17 16:29 01/13/17 08:46 Amoxicillin (Amoxil) 500 mg EVERY 8 HOURS GT 01/07/17 15:00 01/14/17 14:59 01/13/17 05:55 Atenolol (Tenormin) 25 mg DAILY ORAL 01/11/17 19:45 02/10/17 19:44 01/13/17 08:46 Dextrose (Dextrose 50%) STAT PRN IV Hypoglycemia 12/17/16 07:30 01/16/17 07:29 Heparin Sodium/ Dextrose (Heparin) 500 ml @ 23.587 mls/ hr adjust per protocol IV 01/11/17 09:42 02/09/17 19:00 01/12/17 12:28 Hydrocortisone (Anusol HC) 1 supp BIDPRN PRN RECTAL Anal discomfort/swelling/bleed 01/01/17 17:00 01/31/17 16:59 Hydrocortisone 50 mg 50 mg EVERY 12 HOURS IV 01/09/17 21:00 02/08/17 20:59 01/13/17 08:46 Insulin Aspart (NovoLOG) No Dose Q6HR SUBQ 12/17/16 12:00 01/16/17 11:59 01/13/17 05:57 Lansoprazole (Prevacid) 30 mg Q12HR GT 01/11/17 21:00 02/10/17 20:59 01/13/17 08:46 Meropenem/Sodium Chloride (Merrem/Sodium Chloride) 110 ml @ 220 mls/hr Q12HR@0200,1400 IVPB 01/07/17 14:00 01/16/17 13:59 01/13/17 01:32 Metoclopramide HCl 10 mg 10 mg Q6H IVP 01/06/17 18:00 02/05/17 17:59 01/13/17 05:55 Morphine Sulfate (Morphine Sulfate) 4 mg Q4H PRN IVP PAIN 4-10 01/07/17 11:45 01/14/17 11:44 01/13/17 05:58 Ondansetron HCl (Zofran) 4 mg EVERY 4 HOURS PRN IVP Nausea & Vomiting 01/03/17 07:00 02/02/17 06:59 01/07/17 18:31 Temazepam (Restoril) 15 mg HSPRN PRN ORAL Insomnia 01/11/17 21:00 01/18/17 20:59 01/12/17 21:54 ANA LILIA BEDOLLA January 13, 2017 09:08
--- NOTE | 2017-01-13 10:09 | General Progress Note ---
Progress Note Progress Note sp tracheostomy and Gtiube placement. Small amount of oozing from both sites ( pt on heparin) sites otherwise okay Vital Sign - Last 24 Hours 01/12/17 01/12/17 01/12/17 01/12/17 11:00 11:00 12:00 12:00 Temp 98.6 Pulse 76 72 70 70 Resp 14 20 19 B/P 132/56 153/51 Pulse Ox 97 95 O2 Delivery Mechanical Ventilator Mechanical Ventilator FiO2 35 40 40 6/17 01/12/01/12/01/12/17 12:00 13:00 13:20 14:00 Pulse 78 65 62 Resp 16 14 18 B/P 153/51 122/72 Pulse Ox 97 97 O2 Delivery Mechanical Ventilator Mechanical Ventilator FiO2 40 40 35 40 01/12/01/12/01/12/01/12/17 14:13 15:00 15:20 16:00 Temp 98.6 Pulse 77 71 69 Resp 19 15 B/P 134/45 Pulse Ox 96 O2 Delivery Mechanical Ventilator FiO2 40 35 01/12/17 01/12/01/12/01/12/17 16:00 16:00 17:00 17:15 Temp 98.4 Pulse 92 62 75 Resp 21 21 14 B/P 120/39 128/53 Pulse Ox 99 94 O2 Delivery Mechanical Ventilator Mechanical Ventilator FiO2 40 40 40 35 01/12/17 01/12/23 01//01/12/17 18:00 18:51 20:00 20:00 Temp 98.0 Pulse 74 78 68 Resp 18 17 18 B/P 164/49 147/40 Pulse Ox 97 97 O2 Delivery Mechanical Ventilator Mechanical Ventilator FiO2 40 35 35 35 /6/17 //17 //17 01/12/17 20:00 20:57 21:00 22:00 Pulse 68 84 81 69 Resp 16 20 20 B/P 100/34 123/52 Pulse Ox 97 97 O2 Delivery Mechanical Ventilator Mechanical Ventilator FiO2 35 35 35 /6/17 /6/17 //17 01/13/17 22:51 23:00 00:00 00:00 Temp 98.2 Pulse 76 70 79 70 Resp 17 19 21 B/P 140/50 158/41 Pulse Ox 98 98 O2 Delivery Mechanical Ventilator Mechanical Ventilator FiO2 35 35 35 01/13/17 01/13/17 01/13/17 01/13/17 00:00 00:40 01:00 02:00 Pulse 85 78 70 Resp 17 20 18 B/P 143/42 142/24 Pulse Ox 98 99 O2 Delivery Mechanical Ventilator Mechanical Ventilator FiO2 35 35 35 35 01/13/17 01/13/17 01/13/17 01/13/17 03:00 03:07 04:00 04:00 Temp 98.0 Pulse 81 16 78 79 Resp 26 17 26 B/P 146/54 140/54 Pulse Ox 99 99 O2 Delivery Mechanical Ventilator Mechanical Ventilator FiO2 35 35 35 01/13/17 01/13/17 01/13/17 01/13/17 04:00 05:00 05:05 06:00 Pulse 78 71 72 Resp 22 16 17 B/P 153/47 138/50 Pulse Ox 99 98 O2 Delivery Mechanical Ventilator Mechanical Ventilator FiO2 35 35 35 35 01/13/17 01/13/17 01/13/17 01/13/17 07:00 07:17 08:00 08:00 Pulse 76 81 77 Resp 17 16 B/P 132/37 Pulse Ox 98 O2 Delivery Mechanical Ventilator FiO2 35 35 35 01/13/17 01/13/17 01/13/17 01/13/17 08:00 08:46 09:00 09:26 Temp 98.7 Pulse 78 85 73 81 Resp 17 20 16 B/P 134/36 134/36 149/42 Pulse Ox 97 98 O2 Delivery Mechanical Ventilator Mechanical Ventilator FiO2 35 35 35 Intake and Output 01/12/17 01/12/17 01/13/17 15:00 23:00 07:00 Intake Total 677.093 ml 442.09 ml 589.83 ml Output Total 565 ml 375 ml 370 ml Balance 112.093 ml 67.09 ml 219.83 ml Laboratory Tests Test 01/13/17 05:15 White Blood Count 18.7 K/UL (4.8-10.8) H Red Blood Count 2.70 M/UL (4.20-5.40) L Hemoglobin 8.2 G/DL (12.0-16.0) L Hematocrit 26.0 % (37.0-47.0) L Mean Corpuscular Volume 96 FL (80-99) Mean Corpuscular Hemoglobin 30.3 PG (27.0-31.0) Mean Corpuscular Hemoglobin Concent 31.6 G/DL (32.0-36.0) L Red Cell Distribution Width 15.4 % (11.6-14.8) H Platelet Count 280 K/UL (150-450) Mean Platelet Volume 8.0 FL (6.5-10.1) Neutrophils (%) (Auto) % (45.0-75.0) Lymphocytes (%) (Auto) % (20.0-45.0) Monocytes (%) (Auto) % (1.0-10.0) Eosinophils (%) (Auto) % (0.0-3.0) Basophils (%) (Auto) % (0.0-2.0) Neutrophils % (Manual) Pending Lymphocytes % (Manual) Pending Platelet Estimate Pending Platelet Morphology Pending Activated Partial Thromboplast Time 85 SEC (23-33) H Sodium Level 157 mEQ/L (135-145) H Potassium Level 3.2 mEQ/L (3.4-4.9) L Chloride Level 112 mEQ/L (98-107) H Carbon Dioxide Level 38 mEQ/L (20-30) H Anion Gap 7 (5-15) Blood Urea Nitrogen 34 mg/dL (7-23) H Creatinine 0.6 mg/dL (0.5-0.9) Estimat Glomerular Filtration Rate > 60 mL/min (>60) Glucose Level 160 mg/dL (74-106) H Calcium Level 8.0 mg/dL (8.6-10.2) L Total Bilirubin 0.5 mg/dL (0.0-1.2) Aspartate Amino Transf (AST/SGOT) 36 U/L (5-40) Alanine Aminotransferase (ALT/SGPT) 11 U/L (3-33) Alkaline Phosphatase 236 U/L (35-104) H Pro-B-Type Natriuretic Peptide 93646 pg/mL (0-125) H Total Protein 5.7 g/dL (6.6-8.7) L Albumin 2.2 g/dL (3.5-5.2) L Globulin 3.5 g/dL Albumin/Globulin Ratio 0.6 (1.0-2.7) L imp pancreatitis with resiratory failyre, slowly getting better. LISA LICEA January 13, 2017 10:09
[2017-01-13 10:12] LABS: ANISOCYTOSIS 1+; BAND NEUTROPHILS % (MANUAL) 0 % (0-8); BASOPHILS % (MANUAL) 0 % (0-2); EOSINOPHILS % (MANUAL) 0 % (0-3); HYPOCHROMASIA 1+; LYMPHOCYTES % (MANUAL) 10 % (20-45); NEUTROPHILS % (MANUAL) 87 % (45-75); PLATELET ESTIMATE ADEQUATE; PLATELET MORPHOLOGY NORMAL; TOTAL CELLS COUNTED 100
[2017-01-13] MEDS: Heparin 25,000u/D5W 500ml 500 ML IV SCH (10:48)
--- NOTE | 2017-01-13 10:53 | Diagnostic Imaging Report ---
Indication: Dyspnea Comparison: 01/11/2017 A single view chest radiograph was obtained. Findings: Moderate to severe interstitial opacities noted throughout the lungs bilaterally likely worsening CHF. Please correlate clinically. PICC line, tracheostomy and sternotomy again noted. Impression: Interstitial edema suspected. Some interval worsening disease noted.
--- NOTE | 2017-01-13 10:53 | Diagnostic Imaging Report ---
Indication: DYSPNEA Technique: One view of the chest Comparison: 01/04/2017 Findings: Left arm PICC, tracheostomy remain. Bilateral interstitial and alveolar parenchymal disease persists. Cardiomegaly persists. Postsurgical changes of the heart are again demonstrated. Findings are unchanged Impression: Unchanged, over one day, findings as above.
[2017-01-13] MEDS ORDERED: Silver Nitrate Stick TOPIC ONE (11:00)
--- NOTE | 2017-01-13 11:59 | General Progress Note ---
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 Mirtral Vavle prosthesis on anticoagulation Pulmonary HTN HypoAlbuminemia ARDS Plan: On allopurinol K supplement as needed reglan IV Hydrocortisone IV Fluid challenge Keep bp above 100 syst by adjusting BP meds Optimize cardiac status K supplement as needed Adjust pulmonary status- Per GI / Surgery Avoid nephrotoxics monitor renal parameters Subjective ROS Limited/Unobtainable: Yes Allergies: Coded Allergies: No Known Allergies (Unverified , 09/28/14) Objective Last 24 Hour Vital Signs Date Time Temp Pulse Resp B/P Pulse Ox O2 Delivery O2 Flow Rate FiO2 01/13/17 10:53 68 17 35 01/13/17 10:00 75 20 142/53 98 Mechanical Ventilator 35 01/13/17 09:26 81 16 35 01/13/17 09:00 73 20 149/42 98 Mechanical Ventilator 35 01/13/17 08:46 85 134/36 01/13/17 08:00 98.7 78 17 134/36 97 Mechanical Ventilator 35 01/13/17 08:00 35 01/13/17 08:00 77 01/13/17 07:17 81 16 35 01/13/17 07:00 76 17 132/37 98 Mechanical Ventilator 35 01/13/17 06:00 72 17 138/50 98 Mechanical Ventilator 35 01/13/17 05:05 71 16 35 01/13/17 05:00 78 22 153/47 99 Mechanical Ventilator 35 01/13/17 04:00 35 01/13/17 04:00 98.0 79 26 140/54 99 Mechanical Ventilator 35 01/13/17 04:00 78 01/13/17 03:07 16 17 35 01/13/17 03:00 81 26 146/54 99 Mechanical Ventilator 35 01/13/17 02:00 70 18 142/24 99 Mechanical Ventilator 35 01/13/17 01:00 78 20 143/42 98 Mechanical Ventilator 35 01/13/17 00:40 85 17 35 01/13/17 00:00 35 01/13/17 00:00 70 01/13/17 00:00 98.2 79 21 158/41 98 Mechanical Ventilator 35 01/12/17 23:00 70 19 140/50 98 Mechanical Ventilator 35 01/12/17 22:51 76 17 35 01/12/17 22:00 69 20 123/52 97 Mechanical Ventilator 35 01/12/17 21:00 81 20 100/34 97 Mechanical Ventilator 35 01/12/17 20:57 84 16 35 01/12/17 20:00 68 01/12/17 20:00 98.0 68 18 147/40 97 Mechanical Ventilator 35 01/12/17 20:00 35 01/12/17 18:51 78 17 35 01/12/17 18:00 74 18 164/49 97 Mechanical Ventilator 40 01/12/17 17:15 75 14 35 01/12/17 17:00 98.4 62 21 128/53 94 Mechanical Ventilator 40 01/12/17 16:00 92 21 120/39 99 Mechanical Ventilator 40 01/12/17 16:00 40 01/12/17 16:00 69 01/12/17 15:20 71 15 35 01/12/17 15:00 77 19 134/45 96 Mechanical Ventilator 40 01/12/17 14:13 98.6 01/12/17 14:00 62 18 122/72 97 Mechanical Ventilator 40 01/12/17 13:20 65 14 35 01/12/17 13:00 78 16 153/51 97 Mechanical Ventilator 40 01/12/17 12:00 40 01/12/17 12:00 70 01/12/17 12:00 98.6 70 19 153/51 95 Mechanical Ventilator 40 Intake and Output 01/12/17 01/13/17 19:00 07:00 Intake Total 853.703 ml 855.31 ml Output Total 720 ml 590 ml Balance 133.703 ml 265.31 ml Free Water 90 ml IV Total 348.703 ml 310.31 ml Tube Feeding 385 ml 455 ml Other 120 ml Output Urine Total 720 ml 590 ml # Bowel Movements 3 2 Laboratory Tests 01/13/17 05:15: White Blood Count 18.7H, Red Blood Count 2.70L, Hemoglobin 8.2L, Hematocrit 26.0L, Mean Corpuscular Volume 96, Mean Corpuscular Hemoglobin 30.3, Mean Corpuscular Hemoglobin Concent 31.6L, Red Cell Distribution Width 15.4H, Platelet Count 280, Mean Platelet Volume 8.0, Neutrophils (%) (Auto) , Lymphocytes (%) (Auto) , Monocytes (%) (Auto) , Eosinophils (%) (Auto) , Basophils (%) (Auto) , Differential Total Cells Counted 100, Neutrophils % ( Manual) 87H, Lymphocytes % (Manual) 10L, Monocytes % (Manual) 3, Eosinophils % ( Manual) 0, Basophils % (Manual) 0, Band Neutrophils 0, Platelet Estimate Adequate, Platelet Morphology Normal, Hypochromasia 1+, Anisocytosis 1+, Activated Partial Thromboplast Time 85H, Sodium Level 157H, Potassium Level 3.2L , Chloride Level 112H, Carbon Dioxide Level 38H, Anion Gap 7, Blood Urea Nitrogen 34H, Creatinine 0.6, Estimat Glomerular Filtration Rate > 60, Glucose Level 160H, Calcium Level 8.0L, Total Bilirubin 0.5, Aspartate Amino Transf (AST /SGOT) 36, Alanine Aminotransferase (ALT/SGPT) 11, Alkaline Phosphatase 236H, Pro-B-Type Natriuretic Peptide 32086Z, Total Protein 5.7L, Albumin 2.2L, Globulin 3.5, Albumin/Globulin Ratio 0.6L Height (Feet): 5 Height (Inches): 1.00 Weight (Pounds): 200 General Appearance: no apparent distress EENT: other - trach Cardiovascular: normal rate Respiratory/Chest: decreased breath sounds Abdomen: distended Objective other PE not changed KAMINI SNOW January 13, 2017 11:59
--- NOTE | 2017-01-13 12:27 | Diagnostic Imaging Report ---
Indication: Abdominal pain Comparison: None Single view of the abdomen obtained Findings: Gastrostomy noted. Bowel gas pattern is nonspecific though there is a relative absence of small bowel gas which limits evaluation. The bones are osteopenic. Impression: No acute findings
--- NOTE | 2017-01-13 15:06 | General Progress Note ---
Assessment/Plan Assessment/Plan Assessment/Plan Problems: (1) Pancreatitis ICD Codes: K85.9 - Acute pancreatitis, unspecified SNOMED: 72184541 Qualifiers: Qualified Codes: K85.10 - Biliary acute pancreatitis without necrosis or infection (2) Abdominal pain ICD Codes: R10.9 - Unspecified abdominal pain SNOMED: 23999638, 869588760 (3) Iron deficiency anemia ICD Codes: D50.9 - Iron deficiency anemia, unspecified SNOMED: 66923702 (4) Colon polyp ICD Codes: K63.5 - Polyp of colon SNOMED: 92137110 Status: stable, progressing Assessment/Plan Pancreatitis S/P trach 6 cm mass in the left paracolic gutter OB stool positive s/p PEG suspicion for ischemic colitis monitor H&H, transfuse prn reglan ATC GT site bleed >>silver nitrate Rx >> surgical intervention if bleeding continues ppi BID abx follow labs supportive care Subjective Allergies: Coded Allergies: No Known Allergies (Unverified , 09/28/14) Subjective above noted family at bedside some oozing of blood from GT site noted d/w RN Objective Last 24 Hour Vital Signs Date Time Temp Pulse Resp B/P Pulse Ox O2 Delivery O2 Flow Rate FiO2 01/13/17 14:00 75 20 141/46 99 Mechanical Ventilator 35 01/13/17 13:29 73 18 35 01/13/17 13:00 80 20 133/27 100 Mechanical Ventilator 35 01/13/17 12:00 98.5 70 21 132/37 98 Mechanical Ventilator 35 01/13/17 12:00 35 01/13/17 12:00 70 01/13/17 11:00 69 20 131/44 100 Mechanical Ventilator 35 01/13/17 10:53 68 17 35 01/13/17 10:00 75 20 142/53 98 Mechanical Ventilator 35 01/13/17 09:26 81 16 35 01/13/17 09:00 73 20 149/42 98 Mechanical Ventilator 35 01/13/17 08:46 85 134/36 01/13/17 08:00 98.7 78 17 134/36 97 Mechanical Ventilator 35 01/13/17 08:00 35 01/13/17 08:00 77 01/13/17 07:17 81 16 35 01/13/17 07:00 76 17 132/37 98 Mechanical Ventilator 35 01/13/17 06:00 72 17 138/50 98 Mechanical Ventilator 35 01/13/17 05:05 71 16 35 01/13/17 05:00 78 22 153/47 99 Mechanical Ventilator 35 01/13/17 04:00 35 01/13/17 04:00 98.0 79 26 140/54 99 Mechanical Ventilator 35 01/13/17 04:00 78 01/13/17 03:07 16 17 35 01/13/17 03:00 81 26 146/54 99 Mechanical Ventilator 35 01/13/17 02:00 70 18 142/24 99 Mechanical Ventilator 35 01/13/17 01:00 78 20 143/42 98 Mechanical Ventilator 35 01/13/17 00:40 85 17 35 01/13/17 00:00 35 01/13/17 00:00 70 01/13/17 00:00 98.2 79 21 158/41 98 Mechanical Ventilator 35 01/12/17 23:00 70 19 140/50 98 Mechanical Ventilator 35 01/12/17 22:51 76 17 35 01/12/17 22:00 69 20 123/52 97 Mechanical Ventilator 35 01/12/17 21:00 81 20 100/34 97 Mechanical Ventilator 35 01/12/17 20:57 84 16 35 01/12/17 20:00 68 01/12/17 20:00 98.0 68 18 147/40 97 Mechanical Ventilator 35 01/12/17 20:00 35 01/12/17 18:51 78 17 35 01/12/17 18:00 74 18 164/49 97 Mechanical Ventilator 40 01/12/17 17:15 75 14 35 01/12/17 17:00 98.4 62 21 128/53 94 Mechanical Ventilator 40 01/12/17 16:00 92 21 120/39 99 Mechanical Ventilator 40 01/12/17 16:00 40 01/12/17 16:00 69 01/12/17 15:20 71 15 35 Intake and Output 01/12/17 01/13/17 19:00 07:00 Intake Total 853.703 ml 855.31 ml Output Total 720 ml 590 ml Balance 133.703 ml 265.31 ml Free Water 90 ml IV Total 348.703 ml 310.31 ml Tube Feeding 385 ml 455 ml Other 120 ml Output Urine Total 720 ml 590 ml # Bowel Movements 3 2 Laboratory Tests 01/13/17 05:15: White Blood Count 18.7H, Red Blood Count 2.70L, Hemoglobin 8.2L, Hematocrit 26.0L, Mean Corpuscular Volume 96, Mean Corpuscular Hemoglobin 30.3, Mean Corpuscular Hemoglobin Concent 31.6L, Red Cell Distribution Width 15.4H, Platelet Count 280, Mean Platelet Volume 8.0, Neutrophils (%) (Auto) , Lymphocytes (%) (Auto) , Monocytes (%) (Auto) , Eosinophils (%) (Auto) , Basophils (%) (Auto) , Differential Total Cells Counted 100, Neutrophils % ( Manual) 87H, Lymphocytes % (Manual) 10L, Monocytes % (Manual) 3, Eosinophils % ( Manual) 0, Basophils % (Manual) 0, Band Neutrophils 0, Platelet Estimate Adequate, Platelet Morphology Normal, Hypochromasia 1+, Anisocytosis 1+, Activated Partial Thromboplast Time 85H, Sodium Level 157H, Potassium Level 3.2L , Chloride Level 112H, Carbon Dioxide Level 38H, Anion Gap 7, Blood Urea Nitrogen 34H, Creatinine 0.6, Estimat Glomerular Filtration Rate > 60, Glucose Level 160H, Calcium Level 8.0L, Total Bilirubin 0.5, Aspartate Amino Transf (AST /SGOT) 36, Alanine Aminotransferase (ALT/SGPT) 11, Alkaline Phosphatase 236H, Pro-B-Type Natriuretic Peptide 32762U, Total Protein 5.7L, Albumin 2.2L, Globulin 3.5, Albumin/Globulin Ratio 0.6L Height (Feet): 5 Height (Inches): 1.00 Weight (Pounds): 200 Objective Elderly woman NCAT, (+) Trach responsive supple CTA RRR Abd soft distended, (+) oozing of blood from GT site --> Rx'd with Silver nitrate sticks with mild improvement no edema MAXIME EVANS January 13, 2017 15:06
--- NOTE | 2017-01-13 16:41 | Cardiology Progress Note ---
Assessment/Plan Problem List: (1) Cholelithiasis (2) Atrial fibrillation (3) Abdominal pain (4) Respiratory failure requiring intubation (5) Ischemic colitis (6) Lower GI bleed Status: not improved, deteriorating Status Narrative Pt w/ mech MVR, bioprosthetic avr, Pemanent af - controlled ventricular rates Adm w/ pancreatitis and suffered resp arrest, requiring intubation/ vent Sh is s/p g tube placement Today, she developed gi bleed - heme + melanotic stools. slight dec in h/h Assessment/Plan Will hold iv heparin for now, pending repeat h/h and further gi evaluation. Inc risk for thrombotic complications due to mechanical MV as well as AF continue vent support, antibiotics Continue atenolol for v rate control Overall prognosis poor. Subjective ROS Limited/Unobtainable: Yes Subjective Pt intubated/sedated Events noted: pt w/ large amt heme + melanotic stools. Objective Last 24 Hour Vital Signs Date Time Temp Pulse Resp B/P Pulse Ox O2 Delivery O2 Flow Rate FiO2 01/13/17 16:00 75 01/13/17 16:00 98.7 75 18 150/65 100 Mechanical Ventilator 35 01/13/17 16:00 35 01/13/17 15:24 82 17 35 01/13/17 15:00 70 20 130/45 98 Mechanical Ventilator 35 01/13/17 14:00 75 20 141/46 99 Mechanical Ventilator 35 01/13/17 13:29 73 18 35 01/13/17 13:00 80 20 133/27 100 Mechanical Ventilator 35 01/13/17 12:00 98.5 70 21 132/37 98 Mechanical Ventilator 35 01/13/17 12:00 35 01/13/17 12:00 70 01/13/17 11:00 69 20 131/44 100 Mechanical Ventilator 35 01/13/17 10:53 68 17 35 01/13/17 10:00 75 20 142/53 98 Mechanical Ventilator 35 01/13/17 09:26 81 16 35 01/13/17 09:00 73 20 149/42 98 Mechanical Ventilator 35 01/13/17 08:46 85 134/36 01/13/17 08:00 98.7 78 17 134/36 97 Mechanical Ventilator 35 01/13/17 08:00 35 01/13/17 08:00 77 01/13/17 07:17 81 16 35 01/13/17 07:00 76 17 132/37 98 Mechanical Ventilator 35 01/13/17 06:00 72 17 138/50 98 Mechanical Ventilator 35 01/13/17 05:05 71 16 35 01/13/17 05:00 78 22 153/47 99 Mechanical Ventilator 35 01/13/17 04:00 35 01/13/17 04:00 98.0 79 26 140/54 99 Mechanical Ventilator 35 01/13/17 04:00 78 01/13/17 03:07 16 17 35 01/13/17 03:00 81 26 146/54 99 Mechanical Ventilator 35 01/13/17 02:00 70 18 142/24 99 Mechanical Ventilator 35 01/13/17 01:00 78 20 143/42 98 Mechanical Ventilator 35 01/13/17 00:40 85 17 35 01/13/17 00:00 35 01/13/17 00:00 70 01/13/17 00:00 98.2 79 21 158/41 98 Mechanical Ventilator 35 01/12/17 23:00 70 19 140/50 98 Mechanical Ventilator 35 01/12/17 22:51 76 17 35 01/12/17 22:00 69 20 123/52 97 Mechanical Ventilator 35 01/12/17 21:00 81 20 100/34 97 Mechanical Ventilator 35 01/12/17 20:57 84 16 35 01/12/17 20:00 68 01/12/17 20:00 98.0 68 18 147/40 97 Mechanical Ventilator 35 01/12/17 20:00 35 01/12/17 18:51 78 17 35 01/12/17 18:00 74 18 164/49 97 Mechanical Ventilator 40 01/12/17 17:15 75 14 35 01/12/17 17:00 98.4 62 21 128/53 94 Mechanical Ventilator 40 General Appearance: WD/WN, obese, on vent EENT: PERRL/EOMI Neck: supple, no JVD Cardiovascular: normal rate, systolic murmur, irregularly irregular Respiratory/Chest: other - few rhonchi anteriorly bilat Abdomen: non tender, soft Extremities: no swelling Intake and Output 01/12/17 01/13/17 19:00 07:00 Intake Total 853.703 ml 855.31 ml Output Total 720 ml 590 ml Balance 133.703 ml 265.31 ml Free Water 90 ml IV Total 348.703 ml 310.31 ml Tube Feeding 385 ml 455 ml Other 120 ml Output Urine Total 720 ml 590 ml # Bowel Movements 3 2 Laboratory Tests Test 01/13/17 05:15 White Blood Count 18.7 K/UL (4.8-10.8) H Red Blood Count 2.70 M/UL (4.20-5.40) L Hemoglobin 8.2 G/DL (12.0-16.0) L Hematocrit 26.0 % (37.0-47.0) L Mean Corpuscular Volume 96 FL (80-99) Mean Corpuscular Hemoglobin 30.3 PG (27.0-31.0) Mean Corpuscular Hemoglobin Concent 31.6 G/DL (32.0-36.0) L Red Cell Distribution Width 15.4 % (11.6-14.8) H Platelet Count 280 K/UL (150-450) Mean Platelet Volume 8.0 FL (6.5-10.1) Neutrophils (%) (Auto) % (45.0-75.0) Lymphocytes (%) (Auto) % (20.0-45.0) Monocytes (%) (Auto) % (1.0-10.0) Eosinophils (%) (Auto) % (0.0-3.0) Basophils (%) (Auto) % (0.0-2.0) Differential Total Cells Counted 100 Neutrophils % (Manual) 87 % (45-75) H Lymphocytes % (Manual) 10 % (20-45) L Monocytes % (Manual) 3 % (1-10) Eosinophils % (Manual) 0 % (0-3) Basophils % (Manual) 0 % (0-2) Band Neutrophils 0 % (0-8) Platelet Estimate Adequate Platelet Morphology Normal Hypochromasia 1+ Anisocytosis 1+ Activated Partial Thromboplast Time 85 SEC (23-33) H Sodium Level 157 mEQ/L (135-145) H Potassium Level 3.2 mEQ/L (3.4-4.9) L Chloride Level 112 mEQ/L (98-107) H Carbon Dioxide Level 38 mEQ/L (20-30) H Anion Gap 7 (5-15) Blood Urea Nitrogen 34 mg/dL (7-23) H Creatinine 0.6 mg/dL (0.5-0.9) Estimat Glomerular Filtration Rate > 60 mL/min (>60) Glucose Level 160 mg/dL (74-106) H Calcium Level 8.0 mg/dL (8.6-10.2) L Total Bilirubin 0.5 mg/dL (0.0-1.2) Aspartate Amino Transf (AST/SGOT) 36 U/L (5-40) Alanine Aminotransferase (ALT/SGPT) 11 U/L (3-33) Alkaline Phosphatase 236 U/L (35-104) H Pro-B-Type Natriuretic Peptide 27488 pg/mL (0-125) H Total Protein 5.7 g/dL (6.6-8.7) L Albumin 2.2 g/dL (3.5-5.2) L Globulin 3.5 g/dL Albumin/Globulin Ratio 0.6 (1.0-2.7) L TASHA CASTANEDA January 13, 2017 16:41
--- NOTE | 2017-01-13 23:01 | Pulmonolgy Critical Care Note ---
Critical Care - Asmt/Plan Problems: (1) Respiratory failure requiring intubation (2) Ischemic colitis (3) Sepsis (4) Lower GI bleed (5) ATN (acute tubular necrosis) (6) Atrial fibrillation (7) Anemia (8) Pancreatitis Critical Care - Objective Last 24 Hour Vital Signs Date Time Temp Pulse Resp B/P Pulse Ox O2 Delivery O2 Flow Rate FiO2 01/13/17 21:30 94 22 30 01/13/17 19:30 77 20 30 01/13/17 19:00 82 22 149/56 98 Mechanical Ventilator 35 01/13/17 18:00 71 20 138/45 100 Mechanical Ventilator 35 01/13/17 17:00 70 20 138/50 98 Mechanical Ventilator 35 01/13/17 16:57 88 17 35 01/13/17 16:00 75 01/13/17 16:00 98.7 75 18 150/65 100 Mechanical Ventilator 35 01/13/17 16:00 35 01/13/17 15:24 82 17 35 01/13/17 15:00 70 20 130/45 98 Mechanical Ventilator 35 01/13/17 14:00 75 20 141/46 99 Mechanical Ventilator 35 01/13/17 13:29 73 18 35 01/13/17 13:00 80 20 133/27 100 Mechanical Ventilator 35 01/13/17 12:00 98.5 70 21 132/37 98 Mechanical Ventilator 35 01/13/17 12:00 35 01/13/17 12:00 70 01/13/17 11:00 69 20 131/44 100 Mechanical Ventilator 35 01/13/17 10:53 68 17 35 01/13/17 10:00 75 20 142/53 98 Mechanical Ventilator 35 01/13/17 09:26 81 16 35 01/13/17 09:00 73 20 149/42 98 Mechanical Ventilator 35 01/13/17 08:46 85 134/36 01/13/17 08:00 98.7 78 17 134/36 97 Mechanical Ventilator 35 01/13/17 08:00 35 01/13/17 08:00 77 01/13/17 07:17 81 16 35 01/13/17 07:00 76 17 132/37 98 Mechanical Ventilator 35 01/13/17 06:00 72 17 138/50 98 Mechanical Ventilator 35 01/13/17 05:05 71 16 35 01/13/17 05:00 78 22 153/47 99 Mechanical Ventilator 35 01/13/17 04:00 35 01/13/17 04:00 98.0 79 26 140/54 99 Mechanical Ventilator 35 01/13/17 04:00 78 01/13/17 03:07 16 17 35 01/13/17 03:00 81 26 146/54 99 Mechanical Ventilator 35 01/13/17 02:00 70 18 142/24 99 Mechanical Ventilator 35 01/13/17 01:00 78 20 143/42 98 Mechanical Ventilator 35 01/13/17 00:40 85 17 35 01/13/17 00:00 35 01/13/17 00:00 70 01/13/17 00:00 98.2 79 21 158/41 98 Mechanical Ventilator 35 Accucheck: 175 Critical Care - Subjective FI02: 30 Vent Support Breath Rate: 14 Vent Support Mode: AC Vent Tidal Volume: 500 Sputum Amount: Small PEEP: 5.0 PIP: 43 Tube Feeding Amount: 35 I&O: Intake and Output 01/12/17 01/13/17 19:00 07:00 Intake Total 853.703 ml 855.31 ml Output Total 720 ml 590 ml Balance 133.703 ml 265.31 ml Free Water 90 ml IV Total 348.703 ml 310.31 ml Tube Feeding 385 ml 455 ml Other 120 ml Output Urine Total 720 ml 590 ml # Bowel Movements 3 2 ET Position: 22 Labs: Laboratory Tests Test 01/13/17 05:15 White Blood Count 18.7 K/UL (4.8-10.8) H Red Blood Count 2.70 M/UL (4.20-5.40) L Hemoglobin 8.2 G/DL (12.0-16.0) L Hematocrit 26.0 % (37.0-47.0) L Mean Corpuscular Volume 96 FL (80-99) Mean Corpuscular Hemoglobin 30.3 PG (27.0-31.0) Mean Corpuscular Hemoglobin Concent 31.6 G/DL (32.0-36.0) L Red Cell Distribution Width 15.4 % (11.6-14.8) H Platelet Count 280 K/UL (150-450) Mean Platelet Volume 8.0 FL (6.5-10.1) Neutrophils (%) (Auto) % (45.0-75.0) Lymphocytes (%) (Auto) % (20.0-45.0) Monocytes (%) (Auto) % (1.0-10.0) Eosinophils (%) (Auto) % (0.0-3.0) Basophils (%) (Auto) % (0.0-2.0) Differential Total Cells Counted 100 Neutrophils % (Manual) 87 % (45-75) H Lymphocytes % (Manual) 10 % (20-45) L Monocytes % (Manual) 3 % (1-10) Eosinophils % (Manual) 0 % (0-3) Basophils % (Manual) 0 % (0-2) Band Neutrophils 0 % (0-8) Platelet Estimate Adequate Platelet Morphology Normal Hypochromasia 1+ Anisocytosis 1+ Activated Partial Thromboplast Time 85 SEC (23-33) H Sodium Level 157 mEQ/L (135-145) H Potassium Level 3.2 mEQ/L (3.4-4.9) L Chloride Level 112 mEQ/L (98-107) H Carbon Dioxide Level 38 mEQ/L (20-30) H Anion Gap 7 (5-15) Blood Urea Nitrogen 34 mg/dL (7-23) H Creatinine 0.6 mg/dL (0.5-0.9) Estimat Glomerular Filtration Rate > 60 mL/min (>60) Glucose Level 160 mg/dL (74-106) H Calcium Level 8.0 mg/dL (8.6-10.2) L Total Bilirubin 0.5 mg/dL (0.0-1.2) Aspartate Amino Transf (AST/SGOT) 36 U/L (5-40) Alanine Aminotransferase (ALT/SGPT) 11 U/L (3-33) Alkaline Phosphatase 236 U/L (35-104) H Pro-B-Type Natriuretic Peptide 67980 pg/mL (0-125) H Total Protein 5.7 g/dL (6.6-8.7) L Albumin 2.2 g/dL (3.5-5.2) L Globulin 3.5 g/dL Albumin/Globulin Ratio 0.6 (1.0-2.7) L TONY BRIDGES January 13, 2017 23:01
[2017-01-14] VITALS (24 sets, daily range): BP systolic 95–168; BP diastolic 31–72
[2017-01-14] MEDS: Meropenem 1gm/NS 110ml IVPB SCH ×4 (01:51→13:32)
[2017-01-14] MEDS: Morphine Sulfate 4mg/ml Inj IVP PRN ×2 (02:32→09:07)
[2017-01-14] MEDS: Metoclopramide 10mg/2ml Inj IVP SCH ×4 (05:56→23:32)
[2017-01-14] MEDS: NovoLOG Insulin Flexpen SUBQ SCH ×4 (05:58→23:33)
[2017-01-14 06:07] LABS: MEAN CORPUSCULAR HEMOGLOBIN 30.3 PG (27.0-31.0); MEAN CORPUSCULAR HGB CONC 31.6 G/DL (32.0-36.0); MEAN CORPUSCULAR VOLUME 96 FL (80-99); MEAN PLATELET VOLUME 7.3 FL (6.5-10.1); PLATELET COUNT 265 K/UL (150-450); RED BLOOD COUNT 2.46 M/UL (4.20-5.40); RED CELL DISTRIBUTION WIDTH 14.8 % (11.6-14.8)
[2017-01-14 06:12] LABS: INR 1.1 (0.9-1.1); PROTHROMBIN TIME 11.6 SEC (9.30-11.50)
[2017-01-14 06:25] LABS: WHITE BLOOD COUNT 25.2 K/UL (4.8-10.8)
[2017-01-14 06:31] LABS: ALANINE AMINOTRANSFERASE 12 U/L (3-33); ALBUMIN/GLOBULIN RATIO 0.6 (1.0-2.7); ANION GAP 6 (5-15); ASPARTATE AMINO TRANSFERASE 32 U/L (5-40); CARBON DIOXIDE 40 mEQ/L (20-30); CHLORIDE 114 mEQ/L (98-107); CREATININE 0.5 mg/dL (0.5-0.9); GLOMERULAR FILTRATION RATE > 60 mL/min (>60); HEMOLYSIS 5; MAGNESIUM 2.3 mg/dL (1.7-2.5); POTASSIUM 3.5 mEQ/L (3.4-4.9); SODIUM 160 mEQ/L (135-145); TOTAL PROTEIN 5.6 g/dL (6.6-8.7)
[2017-01-14] MEDS: Atenolol 25mg tab ORAL SCH (08:03)
[2017-01-14] MEDS: Hydrocortisone 100mg Inj IV SCH (08:03)
[2017-01-14] MEDS ORDERED: Phospha 250 Neutral tab GT ONE (09:15)
[2017-01-14 10:05] LABS: ANISOCYTOSIS 1+; BAND NEUTROPHILS % (MANUAL) 0 % (0-8); BASOPHILS % (MANUAL) 0 % (0-2); EOSINOPHILS % (MANUAL) 0 % (0-3); HYPOCHROMASIA 1+; LYMPHOCYTES % (MANUAL) 12 % (20-45); NEUTROPHILS % (MANUAL) 81 % (45-75); PLATELET ESTIMATE ADEQUATE; PLATELET MORPHOLOGY NORMAL; TOTAL CELLS COUNTED 100
--- NOTE | 2017-01-14 10:32 | General Progress Note ---
Progress Note Progress Note Surgery: patient seen and examined. no acute events. leukocytosis 25k today. exam stable. peg and trach functional. abdominal exam benign. will remove trach sutures today. continue current care and management. Rodrigo Andino January 14, 2017 10:32
--- NOTE | 2017-01-14 10:39 | General Progress Note ---
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 Mirtral Vavle prosthesis on anticoagulation Pulmonary HTN HypoAlbuminemia ARDS Plan: One liter of D5w for high Na Transfusion as needed per PMD On allopurinol K supplement as needed reglan IV DC Hydrocortisone IV Fluid challenge Keep bp above 100 syst by adjusting BP meds Optimize cardiac status Adjust pulmonary status- Per GI / Surgery Avoid nephrotoxics monitor renal parameters Subjective ROS Limited/Unobtainable: Yes Allergies: Coded Allergies: No Known Allergies (Unverified , 09/28/14) Objective Last 24 Hour Vital Signs Date Time Temp Pulse Resp B/P Pulse Ox O2 Delivery O2 Flow Rate FiO2 01/14/17 10:00 88 18 155/63 99 Mechanical Ventilator 30 01/14/17 09:37 98.8 01/14/17 09:00 78 21 145/72 97 Mechanical Ventilator 30 01/14/17 08:42 77 16 30 01/14/17 08:03 95 142/59 01/14/17 08:00 93 01/14/17 08:00 30 01/14/17 08:00 98.8 96 20 155/49 98 Mechanical Ventilator 30 01/14/17 07:10 106 22 30 01/14/17 07:00 107 21 168/49 97 Mechanical Ventilator 35 01/14/17 06:00 93 21 168/49 97 Mechanical Ventilator 35 01/14/17 05:25 95 21 30 01/14/17 05:00 89 21 127/51 96 Mechanical Ventilator 35 01/14/17 04:00 82 01/14/17 04:00 98.1 89 21 146/40 96 Mechanical Ventilator 35 01/14/17 04:00 35 01/14/17 03:30 81 18 30 01/14/17 03:00 86 21 132/35 95 Mechanical Ventilator 35 01/14/17 02:00 77 22 136/31 97 Mechanical Ventilator 35 01/14/17 01:30 92 21 30 01/14/17 01:00 93 22 141/59 97 Mechanical Ventilator 35 01/14/17 00:00 79 01/14/17 00:00 35 01/14/17 00:00 98.3 81 20 127/63 94 Mechanical Ventilator 35 01/13/17 23:30 78 18 30 01/13/17 23:00 79 24 114/32 95 Mechanical Ventilator 35 01/13/17 22:00 79 23 142/39 96 Mechanical Ventilator 35 01/13/17 21:30 94 22 30 01/13/17 21:00 84 23 147/41 96 Mechanical Ventilator 35 01/13/17 20:00 98.1 80 22 153/55 96 Mechanical Ventilator 35 01/13/17 20:00 35 01/13/17 20:00 65 01/13/17 19:30 77 20 30 01/13/17 19:00 82 22 149/56 98 Mechanical Ventilator 35 01/13/17 18:00 71 20 138/45 100 Mechanical Ventilator 35 01/13/17 17:00 70 20 138/50 98 Mechanical Ventilator 35 01/13/17 16:57 88 17 35 01/13/17 16:00 75 01/13/17 16:00 98.7 75 18 150/65 100 Mechanical Ventilator 35 01/13/17 16:00 35 01/13/17 15:24 82 17 35 01/13/17 15:00 70 20 130/45 98 Mechanical Ventilator 35 01/13/17 14:00 75 20 141/46 99 Mechanical Ventilator 35 01/13/17 13:29 73 18 35 01/13/17 13:00 80 20 133/27 100 Mechanical Ventilator 35 01/13/17 12:00 98.5 70 21 132/37 98 Mechanical Ventilator 35 01/13/17 12:00 35 01/13/17 12:00 70 01/13/17 11:00 69 20 131/44 100 Mechanical Ventilator 35 01/13/17 10:53 68 17 35 Intake and Output 01/13/17 01/14/17 19:00 07:00 Intake Total 1092.283 ml 480 ml Output Total 590 ml 700 ml Balance 502.283 ml -220 ml Free Water 200 ml IV Total 472.283 ml Tube Feeding 420 ml 420 ml Other 60 ml Output Urine Total 590 ml 700 ml # Bowel Movements 9 5 Laboratory Tests 01/14/17 04:00: White Blood Count 25.2*H, Red Blood Count 2.46L, Hemoglobin 7.4L, Hematocrit 23.6L, Mean Corpuscular Volume 96, Mean Corpuscular Hemoglobin 30.3, Mean Corpuscular Hemoglobin Concent 31.6L, Red Cell Distribution Width 14.8, Platelet Count 265, Mean Platelet Volume 7.3, Neutrophils (%) (Auto) , Lymphocytes (%) (Auto) , Monocytes (%) (Auto) , Eosinophils (%) (Auto) , Basophils (%) (Auto) , Differential Total Cells Counted 100, Neutrophils % ( Manual) 81H, Lymphocytes % (Manual) 12L, Monocytes % (Manual) 7, Eosinophils % ( Manual) 0, Basophils % (Manual) 0, Band Neutrophils 0, Platelet Estimate Adequate, Platelet Morphology Normal, Hypochromasia 1+, Anisocytosis 1+, Prothrombin Time 11.6H, Prothromb Time International Ratio 1.1, Activated Partial Thromboplast Time 26, Sodium Level 160H, Potassium Level 3.5, Chloride Level 114H, Carbon Dioxide Level 40H, Anion Gap 6, Blood Urea Nitrogen 34H, Creatinine 0.5, Estimat Glomerular Filtration Rate > 60, Glucose Level 179H, Calcium Level 8.0L, Phosphorus Level 2.0L, Magnesium Level 2.3, Total Bilirubin 0.6, Aspartate Amino Transf (AST/SGOT) 32, Alanine Aminotransferase (ALT/SGPT) 12, Alkaline Phosphatase 227H, Total Protein 5.6L, Albumin 2.1L, Globulin 3.5, Albumin/Globulin Ratio 0.6L Height (Feet): 5 Height (Inches): 1.00 Weight (Pounds): 200 EENT: other - on Vent Respiratory/Chest: decreased breath sounds Abdomen: distended Objective other PE not changed KAMINI SNOW January 14, 2017 10:38
[2017-01-14] MEDS ORDERED: NS 275ml ONE (10:53)
--- NOTE | 2017-01-14 10:56 | Pulmonolgy Critical Care Note ---
Critical Care - Asmt/Plan Problems: (1) Respiratory failure requiring intubation (2) Ischemic colitis (3) Sepsis (4) Lower GI bleed (5) ATN (acute tubular necrosis) (6) Atrial fibrillation (7) Anemia (8) Pancreatitis Respiratory: monitor respiratory rate Cardiac: start pressors, continue pressors Renal: F/U I&O, keep IV fluid Infectious Disease: check cultures, continue antibiotics Gastrointestinal: continue feedings/current rate Endocrine: monitor blood sugar, check TSH, continue sliding scale insulin Hematologic: transfuse if hgb<8.5 Neurologic: PRN Ativan, keep patient comfortable Affect: PRN ativan Prophylaxis: Protonix, Heparin - off heparin Notes Reviewed: cardio, 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 with: nurses, consultants Critical Care - Objective Last 24 Hour Vital Signs Date Time Temp Pulse Resp B/P Pulse Ox O2 Delivery O2 Flow Rate FiO2 01/14/17 10:44 71 16 30 01/14/17 10:00 88 18 155/63 99 Mechanical Ventilator 30 01/14/17 09:37 98.8 01/14/17 09:00 78 21 145/72 97 Mechanical Ventilator 30 01/14/17 08:42 77 16 30 01/14/17 08:03 95 142/59 01/14/17 08:00 93 01/14/17 08:00 30 01/14/17 08:00 98.8 96 20 155/49 98 Mechanical Ventilator 30 01/14/17 07:10 106 22 30 01/14/17 07:00 107 21 168/49 97 Mechanical Ventilator 35 01/14/17 06:00 93 21 168/49 97 Mechanical Ventilator 35 01/14/17 05:25 95 21 30 01/14/17 05:00 89 21 127/51 96 Mechanical Ventilator 35 01/14/17 04:00 82 01/14/17 04:00 98.1 89 21 146/40 96 Mechanical Ventilator 35 01/14/17 04:00 35 01/14/17 03:30 81 18 30 01/14/17 03:00 86 21 132/35 95 Mechanical Ventilator 35 01/14/17 02:00 77 22 136/31 97 Mechanical Ventilator 35 01/14/17 01:30 92 21 30 01/14/17 01:00 93 22 141/59 97 Mechanical Ventilator 35 01/14/17 00:00 79 01/14/17 00:00 35 01/14/17 00:00 98.3 81 20 127/63 94 Mechanical Ventilator 35 01/13/17 23:30 78 18 30 01/13/17 23:00 79 24 114/32 95 Mechanical Ventilator 35 01/13/17 22:00 79 23 142/39 96 Mechanical Ventilator 35 01/13/17 21:30 94 22 30 01/13/17 21:00 84 23 147/41 96 Mechanical Ventilator 35 01/13/17 20:00 98.1 80 22 153/55 96 Mechanical Ventilator 35 01/13/17 20:00 35 01/13/17 20:00 65 01/13/17 19:30 77 20 30 01/13/17 19:00 82 22 149/56 98 Mechanical Ventilator 35 01/13/17 18:00 71 20 138/45 100 Mechanical Ventilator 35 01/13/17 17:00 70 20 138/50 98 Mechanical Ventilator 35 01/13/17 16:57 88 17 35 01/13/17 16:00 75 01/13/17 16:00 98.7 75 18 150/65 100 Mechanical Ventilator 35 01/13/17 16:00 35 01/13/17 15:24 82 17 35 01/13/17 15:00 70 20 130/45 98 Mechanical Ventilator 35 01/13/17 14:00 75 20 141/46 99 Mechanical Ventilator 35 01/13/17 13:29 73 18 35 01/13/17 13:00 80 20 133/27 100 Mechanical Ventilator 35 01/13/17 12:00 98.5 70 21 132/37 98 Mechanical Ventilator 35 01/13/17 12:00 35 01/13/17 12:00 70 01/13/17 11:00 69 20 131/44 100 Mechanical Ventilator 35 Status: awake, sedated HEENT: atraumatic Neck: full ROM Lungs: clear Heart: HR/BP stable Abdomen: soft, non-tender Decubiti: location Accucheck: 185 Critical Care - Subjective Intubation Day: s/ trach Condition: critical EKG Rhythm: Sinus Rhythm FI02: 30 Vent Support Breath Rate: 14 Vent Support Mode: AC Vent Tidal Volume: 500 Sputum Amount: Small PEEP: 5.0 PIP: 43 Fluids: d5w Drips: off heparin drip Tube Feeding Amount: 35 I&O: Intake and Output 01/13/17 01/14/17 19:00 07:00 Intake Total 1092.283 ml 480 ml Output Total 590 ml 700 ml Balance 502.283 ml -220 ml Free Water 200 ml IV Total 472.283 ml Tube Feeding 420 ml 420 ml Other 60 ml Output Urine Total 590 ml 700 ml # Bowel Movements 9 5 ET Position: 22 Labs: Laboratory Tests Test 01/14/17 04:00 White Blood Count 25.2 K/UL (4.8-10.8) *H Red Blood Count 2.46 M/UL (4.20-5.40) L Hemoglobin 7.4 G/DL (12.0-16.0) L Hematocrit 23.6 % (37.0-47.0) L Mean Corpuscular Volume 96 FL (80-99) Mean Corpuscular Hemoglobin 30.3 PG (27.0-31.0) Mean Corpuscular Hemoglobin Concent 31.6 G/DL (32.0-36.0) L Red Cell Distribution Width 14.8 % (11.6-14.8) Platelet Count 265 K/UL (150-450) Mean Platelet Volume 7.3 FL (6.5-10.1) Neutrophils (%) (Auto) % (45.0-75.0) Lymphocytes (%) (Auto) % (20.0-45.0) Monocytes (%) (Auto) % (1.0-10.0) Eosinophils (%) (Auto) % (0.0-3.0) Basophils (%) (Auto) % (0.0-2.0) Differential Total Cells Counted 100 Neutrophils % (Manual) 81 % (45-75) H Lymphocytes % (Manual) 12 % (20-45) L Monocytes % (Manual) 7 % (1-10) Eosinophils % (Manual) 0 % (0-3) Basophils % (Manual) 0 % (0-2) Band Neutrophils 0 % (0-8) Platelet Estimate Adequate Platelet Morphology Normal Hypochromasia 1+ Anisocytosis 1+ Prothrombin Time 11.6 SEC (9.30-11.50) H Prothromb Time International Ratio 1.1 (0.9-1.1) Activated Partial Thromboplast Time 26 SEC (23-33) Sodium Level 160 mEQ/L (135-145) H Potassium Level 3.5 mEQ/L (3.4-4.9) Chloride Level 114 mEQ/L (98-107) H Carbon Dioxide Level 40 mEQ/L (20-30) H Anion Gap 6 (5-15) Blood Urea Nitrogen 34 mg/dL (7-23) H Creatinine 0.5 mg/dL (0.5-0.9) Estimat Glomerular Filtration Rate > 60 mL/min (>60) Glucose Level 179 mg/dL (74-106) H Calcium Level 8.0 mg/dL (8.6-10.2) L Phosphorus Level 2.0 mg/dL (2.5-4.8) L Magnesium Level 2.3 mg/dL (1.7-2.5) Total Bilirubin 0.6 mg/dL (0.0-1.2) Aspartate Amino Transf (AST/SGOT) 32 U/L (5-40) Alanine Aminotransferase (ALT/SGPT) 12 U/L (3-33) Alkaline Phosphatase 227 U/L (35-104) H Total Protein 5.6 g/dL (6.6-8.7) L Albumin 2.1 g/dL (3.5-5.2) L Globulin 3.5 g/dL Albumin/Globulin Ratio 0.6 (1.0-2.7) L TONY BRIDGES January 14, 2017 10:56
--- NOTE | 2017-01-14 11:19 | Infectious Diseases Prog Note ---
Assessment/Plan Assessment/Plan ASSESSMENT: Fever, SP leukocytosis ( probable due to GI bleed, and Ischemic colitis ) Pancreatitis improving CT: Findings compatible with marked worsening of acute pancreatitis MRCP : Cholelithiasis. There is also a calculus within the duct adjacent to the gallbladder Pancreatic Enzymes improving CT of Abd : reviewed cholelithiasis : US of liver : Incidental finding of cholelithiasis and mild gallbladder wall thickening positive sonographic Diaz's sign LFT : Nl UTI : Mandy SCx : Mandy ( colonizer ) SP s/p colonoscopy >> high suspicion for ischemic colitis SP PEG 01/02 VDRF: SP trach 01/01 Cxray : Increase in bilateral congestive changes with persistent small right , probable new left pleural effusions ARF SP aortic stenosis mitral stenosis status post mitral valve replacement AFib Pulmonary hypertension PLAN: - cont on IV Merrem d# 12 / 14 , ( 01/13 oral Amoxi d# 7 ) ( 01/07 SP Zyvox d#5 and Flagyl d# 4 ) ( 12/28 SP Diflucan d# 10 ) ( 12/24 SP Merrem d# 14 /14 ) - monitor CBC, temperatures, - monitor LFT - GI f/u - Sx is following for possible Cholecystectomy later - VDRF - monitor Cx ( Bl ) - PRBC transfusion PRN Subjective Constitutional: Denies: anorexia, chills, drenching sweats, fatigue, fever, no symptoms, other Allergies: Coded Allergies: No Known Allergies (Unverified , 09/28/14) Subjective on Vent Objective Vital Signs Last 24 Hour Vital Signs Date Time Temp Pulse Resp B/P Pulse Ox O2 Delivery O2 Flow Rate FiO2 01/14/17 10:44 71 16 30 01/14/17 10:00 88 18 155/63 99 Mechanical Ventilator 30 01/14/17 09:37 98.8 01/14/17 09:00 78 21 145/72 97 Mechanical Ventilator 30 01/14/17 08:42 77 16 30 01/14/17 08:03 95 142/59 01/14/17 08:00 93 01/14/17 08:00 30 01/14/17 08:00 98.8 96 20 155/49 98 Mechanical Ventilator 30 01/14/17 07:10 106 22 30 01/14/17 07:00 107 21 168/49 97 Mechanical Ventilator 35 01/14/17 06:00 93 21 168/49 97 Mechanical Ventilator 35 01/14/17 05:25 95 21 30 01/14/17 05:00 89 21 127/51 96 Mechanical Ventilator 35 01/14/17 04:00 82 01/14/17 04:00 98.1 89 21 146/40 96 Mechanical Ventilator 35 01/14/17 04:00 35 01/14/17 03:30 81 18 30 01/14/17 03:00 86 21 132/35 95 Mechanical Ventilator 35 01/14/17 02:00 77 22 136/31 97 Mechanical Ventilator 35 01/14/17 01:30 92 21 30 01/14/17 01:00 93 22 141/59 97 Mechanical Ventilator 35 01/14/17 00:00 79 01/14/17 00:00 35 01/14/17 00:00 98.3 81 20 127/63 94 Mechanical Ventilator 35 01/13/17 23:30 78 18 30 01/13/17 23:00 79 24 114/32 95 Mechanical Ventilator 35 01/13/17 22:00 79 23 142/39 96 Mechanical Ventilator 35 01/13/17 21:30 94 22 30 01/13/17 21:00 84 23 147/41 96 Mechanical Ventilator 35 01/13/17 20:00 98.1 80 22 153/55 96 Mechanical Ventilator 35 01/13/17 20:00 35 01/13/17 20:00 65 01/13/17 19:30 77 20 30 01/13/17 19:00 82 22 149/56 98 Mechanical Ventilator 35 01/13/17 18:00 71 20 138/45 100 Mechanical Ventilator 35 01/13/17 17:00 70 20 138/50 98 Mechanical Ventilator 35 01/13/17 16:57 88 17 35 01/13/17 16:00 75 01/13/17 16:00 98.7 75 18 150/65 100 Mechanical Ventilator 35 01/13/17 16:00 35 01/13/17 15:24 82 17 35 01/13/17 15:00 70 20 130/45 98 Mechanical Ventilator 35 01/13/17 14:00 75 20 141/46 99 Mechanical Ventilator 35 01/13/17 13:29 73 18 35 01/13/17 13:00 80 20 133/27 100 Mechanical Ventilator 35 01/13/17 12:00 98.5 70 21 132/37 98 Mechanical Ventilator 35 01/13/17 12:00 35 01/13/17 12:00 70 Height (Feet): 5 Height (Inches): 1.00 Weight (Pounds): 200 HEENT: anicteric Respiratory/Chest: no respiratory distress Cardiovascular: regularly irregular Abdomen: non distended Laboratory Tests Test 01/14/17 04:00 White Blood Count 25.2 K/UL (4.8-10.8) *H Red Blood Count 2.46 M/UL (4.20-5.40) L Hemoglobin 7.4 G/DL (12.0-16.0) L Hematocrit 23.6 % (37.0-47.0) L Mean Corpuscular Volume 96 FL (80-99) Mean Corpuscular Hemoglobin 30.3 PG (27.0-31.0) Mean Corpuscular Hemoglobin Concent 31.6 G/DL (32.0-36.0) L Red Cell Distribution Width 14.8 % (11.6-14.8) Platelet Count 265 K/UL (150-450) Mean Platelet Volume 7.3 FL (6.5-10.1) Neutrophils (%) (Auto) % (45.0-75.0) Lymphocytes (%) (Auto) % (20.0-45.0) Monocytes (%) (Auto) % (1.0-10.0) Eosinophils (%) (Auto) % (0.0-3.0) Basophils (%) (Auto) % (0.0-2.0) Differential Total Cells Counted 100 Neutrophils % (Manual) 81 % (45-75) H Lymphocytes % (Manual) 12 % (20-45) L Monocytes % (Manual) 7 % (1-10) Eosinophils % (Manual) 0 % (0-3) Basophils % (Manual) 0 % (0-2) Band Neutrophils 0 % (0-8) Platelet Estimate Adequate Platelet Morphology Normal Hypochromasia 1+ Anisocytosis 1+ Prothrombin Time 11.6 SEC (9.30-11.50) H Prothromb Time International Ratio 1.1 (0.9-1.1) Activated Partial Thromboplast Time 26 SEC (23-33) Sodium Level 160 mEQ/L (135-145) H Potassium Level 3.5 mEQ/L (3.4-4.9) Chloride Level 114 mEQ/L (98-107) H Carbon Dioxide Level 40 mEQ/L (20-30) H Anion Gap 6 (5-15) Blood Urea Nitrogen 34 mg/dL (7-23) H Creatinine 0.5 mg/dL (0.5-0.9) Estimat Glomerular Filtration Rate > 60 mL/min (>60) Glucose Level 179 mg/dL (74-106) H Calcium Level 8.0 mg/dL (8.6-10.2) L Phosphorus Level 2.0 mg/dL (2.5-4.8) L Magnesium Level 2.3 mg/dL (1.7-2.5) Total Bilirubin 0.6 mg/dL (0.0-1.2) Aspartate Amino Transf (AST/SGOT) 32 U/L (5-40) Alanine Aminotransferase (ALT/SGPT) 12 U/L (3-33) Alkaline Phosphatase 227 U/L (35-104) H Total Protein 5.6 g/dL (6.6-8.7) L Albumin 2.1 g/dL (3.5-5.2) L Globulin 3.5 g/dL Albumin/Globulin Ratio 0.6 (1.0-2.7) L Current Medications Medications (Trade) Dose Ordered Sig/Lisbeth Route PRN Reason Start Time Stop Time Status Last Admin Dose Admin Acetaminophen (Tylenol) 650 mg Q4H PRN ORAL fever 12/17/16 08:00 01/16/17 07:59 01/11/17 13:45 Allopurinol (Allopurinol) 300 mg DAILY GT 01/07/17 16:30 02/06/17 16:29 01/14/17 08:02 Atenolol 25 mg 25 mg DAILY ORAL 01/11/17 19:45 02/10/17 19:44 01/14/17 08:03 Dextrose (D5W 1000ml) 1,000 ml @ 100 mls/hr Q10H ONCE IV 01/14/17 09:15 01/14/17 19:14 01/14/17 09:43 Dextrose (Dextrose 50%) STAT PRN IV Hypoglycemia 12/17/16 07:30 01/16/17 07:29 Hydrocortisone (Anusol HC) 1 supp BIDPRN PRN RECTAL Anal discomfort/swelling/bleed 01/01/17 17:00 01/31/17 16:59 Insulin Aspart (NovoLOG) No Dose Q6HR SUBQ 12/17/16 12:00 01/16/17 11:59 01/14/17 05:58 Lansoprazole (Prevacid) 30 mg Q12HR GT 01/11/17 21:00 02/10/17 20:59 01/14/17 08:03 Meropenem/Sodium Chloride (Merrem/Sodium Chloride) 110 ml @ 220 mls/hr Q12HR@0200,1400 IVPB 01/07/17 14:00 01/16/17 13:59 01/14/17 01:51 Metoclopramide HCl 10 mg 10 mg Q6H IVP 01/06/17 18:00 02/05/17 17:59 01/14/17 05:56 Morphine Sulfate (Morphine Sulfate) 4 mg Q4H PRN IVP PAIN 4-10 01/07/17 11:45 01/14/17 11:44 01/14/17 09:07 Ondansetron HCl (Zofran) 4 mg EVERY 4 HOURS PRN IVP Nausea & Vomiting 01/03/17 07:00 02/02/17 06:59 01/07/17 18:31 Temazepam (Restoril) 15 mg HSPRN PRN ORAL Insomnia 01/11/17 21:00 01/18/17 20:59 01/13/17 22:16 OSCAR ANDERSON M.D. January 14, 2017 11:19
--- NOTE | 2017-01-14 12:57 | Wound Care Consultation ---
Wound Assessment Wound Assessment : Wound Number: #1 Wound Present on Admission: No New Wound: Yes Status Change of Wound: No Wound Location Body Site Modif: mid Wound Location Body Site: sacral Wound Type: pressure ulcer Jack Test: Does not Jack Pressure Ulcer Stage: II - resolved Wound Thickness: Partial Thickness Percent of Wound [place]/Red: 100 Wound Drainage Amount: None Wound Drainage Odor: None/Absent Tissue Surrounding Wound: Intact - site intact. Wound General Appearance: Reddened, Clean/Dry Wound Comment #1 mid sacral stage II- resolved. upon reassessment noted site with skin 100% intact. local wound care as effective. recommendation. -Continue pressure reducing mattress. -Continue to reposition. -keep clean and dry. - Avoid shear and friction. -Assess skin and notify MD if any further change of condition in skin is noted. -Continue to provide barrier cream for skin maintenance. SWAPNIL EDWARDS January 14, 2017 12:57
--- NOTE | 2017-01-14 13:32 | GI Progress Note ---
Assessment/Plan Problems: (1) Pancreatitis ICD Codes: K85.9 - Acute pancreatitis, unspecified SNOMED: 99674572 Qualifiers: Qualified Codes: K85.10 - Biliary acute pancreatitis without necrosis or infection (2) Abdominal pain ICD Codes: R10.9 - Unspecified abdominal pain SNOMED: 61676766, [id number] (3) Iron deficiency anemia ICD Codes: D50.9 - Iron deficiency anemia, unspecified SNOMED: 56925121 (4) Colon polyp ICD Codes: K63.5 - Polyp of colon SNOMED: 04881912 Status: unchanged Status Narrative Discussed with Dr. Gipson. Assessment/Plan Pancreatitis - abdomen still very distended cholelithiasis, no e/o choledocholithiasis rising WBC S/P trach APCT reviewed>> 6 cm mass in the left paracolic gutter 01/04/17 cdiff negative OB stool positive s/p PEG s/p colonoscopy >> high suspicion for ischemic colitis, fu biopsy restart GTFs monitor H&H, transfuse prn reglan ATC GT site care >> GT site bleed >> silver nitrate Rx >> surgical intervention if bleeding continues ppi BID abx monitor amylase/lipase follow labs supportive care Subjective Subjective limited Objective Last 24 Hour Vital Signs Date Time Temp Pulse Resp B/P Pulse Ox O2 Delivery O2 Flow Rate FiO2 01/14/17 13:27 82 17 30 01/14/17 13:00 89 20 159/63 99 Mechanical Ventilator 30 01/14/17 12:00 98.7 86 18 154/66 100 Mechanical Ventilator 30 01/14/17 12:00 90 01/14/17 11:53 30 01/14/17 11:00 82 19 158/65 99 Mechanical Ventilator 30 01/14/17 10:44 71 16 30 01/14/17 10:00 88 18 155/63 99 Mechanical Ventilator 30 01/14/17 09:37 98.8 01/14/17 09:00 78 21 145/72 97 Mechanical Ventilator 30 01/14/17 08:42 77 16 30 01/14/17 08:03 95 142/59 01/14/17 08:00 93 01/14/17 08:00 30 01/14/17 08:00 98.8 96 20 155/49 98 Mechanical Ventilator 30 01/14/17 07:10 106 22 30 01/14/17 07:00 107 21 168/49 97 Mechanical Ventilator 35 01/14/17 06:00 93 21 168/49 97 Mechanical Ventilator 35 01/14/17 05:25 95 21 30 01/14/17 05:00 89 21 127/51 96 Mechanical Ventilator 35 01/14/17 04:00 82 01/14/17 04:00 98.1 89 21 146/40 96 Mechanical Ventilator 35 01/14/17 04:00 35 01/14/17 03:30 81 18 30 01/14/17 03:00 86 21 132/35 95 Mechanical Ventilator 35 01/14/17 02:00 77 22 136/31 97 Mechanical Ventilator 35 01/14/17 01:30 92 21 30 01/14/17 01:00 93 22 141/59 97 Mechanical Ventilator 35 01/14/17 00:00 79 01/14/17 00:00 35 01/14/17 00:00 98.3 81 20 127/63 94 Mechanical Ventilator 35 01/13/17 23:30 78 18 30 01/13/17 23:00 79 24 114/32 95 Mechanical Ventilator 35 01/13/17 22:00 79 23 142/39 96 Mechanical Ventilator 35 01/13/17 21:30 94 22 30 01/13/17 21:00 84 23 147/41 96 Mechanical Ventilator 35 01/13/17 20:00 98.1 80 22 153/55 96 Mechanical Ventilator 35 01/13/17 20:00 35 01/13/17 20:00 65 01/13/17 19:30 77 20 30 01/13/17 19:00 82 22 149/56 98 Mechanical Ventilator 35 01/13/17 18:00 71 20 138/45 100 Mechanical Ventilator 35 01/13/17 17:00 70 20 138/50 98 Mechanical Ventilator 35 01/13/17 16:57 88 17 35 01/13/17 16:00 75 01/13/17 16:00 98.7 75 18 150/65 100 Mechanical Ventilator 35 01/13/17 16:00 35 01/13/17 15:24 82 17 35 01/13/17 15:00 70 20 130/45 98 Mechanical Ventilator 35 01/13/17 14:00 75 20 141/46 99 Mechanical Ventilator 35 Intake and Output 01/13/17 01/14/17 19:00 07:00 Intake Total 1092.283 ml 480 ml Output Total 590 ml 700 ml Balance 502.283 ml -220 ml Free Water 200 ml IV Total 472.283 ml Tube Feeding 420 ml 420 ml Other 60 ml Output Urine Total 590 ml 700 ml # Bowel Movements 9 5 Laboratory Tests Test 01/14/17 04:00 White Blood Count 25.2 K/UL (4.8-10.8) *H Red Blood Count 2.46 M/UL (4.20-5.40) L Hemoglobin 7.4 G/DL (12.0-16.0) L Hematocrit 23.6 % (37.0-47.0) L Mean Corpuscular Volume 96 FL (80-99) Mean Corpuscular Hemoglobin 30.3 PG (27.0-31.0) Mean Corpuscular Hemoglobin Concent 31.6 G/DL (32.0-36.0) L Red Cell Distribution Width 14.8 % (11.6-14.8) Platelet Count 265 K/UL (150-450) Mean Platelet Volume 7.3 FL (6.5-10.1) Neutrophils (%) (Auto) % (45.0-75.0) Lymphocytes (%) (Auto) % (20.0-45.0) Monocytes (%) (Auto) % (1.0-10.0) Eosinophils (%) (Auto) % (0.0-3.0) Basophils (%) (Auto) % (0.0-2.0) Differential Total Cells Counted 100 Neutrophils % (Manual) 81 % (45-75) H Lymphocytes % (Manual) 12 % (20-45) L Monocytes % (Manual) 7 % (1-10) Eosinophils % (Manual) 0 % (0-3) Basophils % (Manual) 0 % (0-2) Band Neutrophils 0 % (0-8) Platelet Estimate Adequate Platelet Morphology Normal Hypochromasia 1+ Anisocytosis 1+ Prothrombin Time 11.6 SEC (9.30-11.50) H Prothromb Time International Ratio 1.1 (0.9-1.1) Activated Partial Thromboplast Time 26 SEC (23-33) Sodium Level 160 mEQ/L (135-145) H Potassium Level 3.5 mEQ/L (3.4-4.9) Chloride Level 114 mEQ/L (98-107) H Carbon Dioxide Level 40 mEQ/L (20-30) H Anion Gap 6 (5-15) Blood Urea Nitrogen 34 mg/dL (7-23) H Creatinine 0.5 mg/dL (0.5-0.9) Estimat Glomerular Filtration Rate > 60 mL/min (>60) Glucose Level 179 mg/dL (74-106) H Calcium Level 8.0 mg/dL (8.6-10.2) L Phosphorus Level 2.0 mg/dL (2.5-4.8) L Magnesium Level 2.3 mg/dL (1.7-2.5) Total Bilirubin 0.6 mg/dL (0.0-1.2) Aspartate Amino Transf (AST/SGOT) 32 U/L (5-40) Alanine Aminotransferase (ALT/SGPT) 12 U/L (3-33) Alkaline Phosphatase 227 U/L (35-104) H Total Protein 5.6 g/dL (6.6-8.7) L Albumin 2.1 g/dL (3.5-5.2) L Globulin 3.5 g/dL Albumin/Globulin Ratio 0.6 (1.0-2.7) L Height (Feet): 5 Height (Inches): 1.00 Weight (Pounds): 200 General Appearance: no apparent distress Cardiovascular: normal rate Respiratory/Chest: other - mech vent Abdominal Exam: GT site - min bleed Objective Service Date: 12/11/16 Procedure: MRI Abdomen no Contrast Indication: Abdominal pain, possible pancreatitis Findings: Multiple calcifications are seen within the gallbladder. There is a ductal structure cephalad to the gallbladder which contains a filling defect. This is probably the cystic duct, but could be an extrahepatic bile duct, and it is uncertain which of these is. The gallbladder wall is not thickened. The extrahepatic bile ducts are ectatic, with the common bile duct measuring up to 9 mm diameter , but no downstream filling defects are demonstrated. The common bile duct terminates abruptly at the level of the ampulla. The pancreatic duct is mildly ectatic, measuring 3-4 mm in diameter. No intraluminal filling defects are demonstrated. A 7 mm fluid signal lesion is seen within the uncinate process of the pancreas. This may actually be a duodenal diverticulum which is seen on the recent CT scan. There is apparent swelling of the pancreas and considerable free intraperitoneal fluid. No free intraperitoneal fluid presumably increased from the prior CT scan. There are dilated small bowel loops, likely indicating ileus. The liver is unremarkable. The adrenals and kidneys are unremarkable. There are bilateral small pleural effusions. The spleen is unremarkable. The heart is enlarged Impression: Cholelithiasis. There is also a calculus within the duct adjacent to the gallbladder which is probably the cystic duct but could be an extrahepatic bile duct. Extrahepatic and central intrahepatic biliary ductal mild dilatation. No definite downstream calculus or pancreatic head mass to account for this, however. Prominence and edema of the pancreas, better visualized on prior CT scan, consistent with acute pancreatitis, also previously described Ascites fluid, increased from the prior CT scan, likely secondary to the acute pancreatitis Dilated small bowel loops, new since prior CT study. Suspect representing ileus related to the pancreatitis Bilateral small pleural effusions Small cystic lesion within the as a process. Suspect that this is actually the duodenal diverticulum described on recent CT scan, but could represent a tiny pseudocyst or intraductal papillary mucinous neoplasm. Cardiomegaly Lulu Dominguez N.P. January 14, 2017 13:32
--- NOTE | 2017-01-14 18:32 | Cardiology Progress Note ---
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 48 hour to allow healing bad situation she recieved 1 unit of prbc today d/w rn Subjective ROS Limited/Unobtainable: Yes Subjective on the vent ,s/p trach has abd pain Objective Last 24 Hour Vital Signs Date Time Temp Pulse Resp B/P Pulse Ox O2 Delivery O2 Flow Rate FiO2 01/14/17 18:00 97 20 140/48 97 Mechanical Ventilator 30 01/14/17 17:00 91 21 151/55 97 Mechanical Ventilator 30 01/14/17 16:52 96 21 30 01/14/17 16:04 98.8 99 24 150/59 98 Mechanical Ventilator 30 01/14/17 16:00 30 01/14/17 16:00 93 01/14/17 15:06 81 23 30 01/14/17 15:05 79 18 143/49 97 Mechanical Ventilator 30 01/14/17 15:04 30 01/14/17 14:00 81 19 163/38 99 Mechanical Ventilator 30 01/14/17 13:27 82 17 30 01/14/17 13:00 89 20 159/63 99 Mechanical Ventilator 30 01/14/17 12:00 98.7 86 18 154/66 100 Mechanical Ventilator 30 01/14/17 12:00 90 01/14/17 11:53 30 01/14/17 11:00 82 19 158/65 99 Mechanical Ventilator 30 01/14/17 10:44 71 16 30 01/14/17 10:00 88 18 155/63 99 Mechanical Ventilator 30 01/14/17 09:37 98.8 01/14/17 09:00 78 21 145/72 97 Mechanical Ventilator 30 01/14/17 08:42 77 16 30 01/14/17 08:03 95 142/59 01/14/17 08:00 93 01/14/17 08:00 30 01/14/17 08:00 98.8 96 20 155/49 98 Mechanical Ventilator 30 01/14/17 07:10 106 22 30 01/14/17 07:00 107 21 168/49 97 Mechanical Ventilator 35 01/14/17 06:00 93 21 168/49 97 Mechanical Ventilator 35 01/14/17 05:25 95 21 30 01/14/17 05:00 89 21 127/51 96 Mechanical Ventilator 35 01/14/17 04:00 82 01/14/17 04:00 98.1 89 21 146/40 96 Mechanical Ventilator 35 01/14/17 04:00 35 01/14/17 03:30 81 18 30 01/14/17 03:00 86 21 132/35 95 Mechanical Ventilator 35 01/14/17 02:00 77 22 136/31 97 Mechanical Ventilator 35 01/14/17 01:30 92 21 30 01/14/17 01:00 93 22 141/59 97 Mechanical Ventilator 35 01/14/17 00:00 79 01/14/17 00:00 35 01/14/17 00:00 98.3 81 20 127/63 94 Mechanical Ventilator 35 01/13/17 23:30 78 18 30 01/13/17 23:00 79 24 114/32 95 Mechanical Ventilator 35 01/13/17 22:00 79 23 142/39 96 Mechanical Ventilator 35 01/13/17 21:30 94 22 30 01/13/17 21:00 84 23 147/41 96 Mechanical Ventilator 35 01/13/17 20:00 98.1 80 22 153/55 96 Mechanical Ventilator 35 01/13/17 20:00 35 01/13/17 20:00 65 01/13/17 19:30 77 20 30 01/13/17 19:00 82 22 149/56 98 Mechanical Ventilator 35 General Appearance: no apparent distress, alert, on vent Neck: no JVD Cardiovascular: irregularly irregular, other - mechanical Respiratory/Chest: lungs clear - anteriroly Abdomen: normal bowel sounds, soft Extremities: moderate edema Intake and Output 01/13/17 01/14/17 19:00 07:00 Intake Total 1092.283 ml 480 ml Output Total 590 ml 700 ml Balance 502.283 ml -220 ml Free Water 200 ml IV Total 472.283 ml Tube Feeding 420 ml 420 ml Other 60 ml Output Urine Total 590 ml 700 ml # Bowel Movements 9 5 Laboratory Tests Test 01/14/17 04:00 White Blood Count 25.2 K/UL (4.8-10.8) *H Red Blood Count 2.46 M/UL (4.20-5.40) L Hemoglobin 7.4 G/DL (12.0-16.0) L Hematocrit 23.6 % (37.0-47.0) L Mean Corpuscular Volume 96 FL (80-99) Mean Corpuscular Hemoglobin 30.3 PG (27.0-31.0) Mean Corpuscular Hemoglobin Concent 31.6 G/DL (32.0-36.0) L Red Cell Distribution Width 14.8 % (11.6-14.8) Platelet Count 265 K/UL (150-450) Mean Platelet Volume 7.3 FL (6.5-10.1) Neutrophils (%) (Auto) % (45.0-75.0) Lymphocytes (%) (Auto) % (20.0-45.0) Monocytes (%) (Auto) % (1.0-10.0) Eosinophils (%) (Auto) % (0.0-3.0) Basophils (%) (Auto) % (0.0-2.0) Differential Total Cells Counted 100 Neutrophils % (Manual) 81 % (45-75) H Lymphocytes % (Manual) 12 % (20-45) L Monocytes % (Manual) 7 % (1-10) Eosinophils % (Manual) 0 % (0-3) Basophils % (Manual) 0 % (0-2) Band Neutrophils 0 % (0-8) Platelet Estimate Adequate Platelet Morphology Normal Hypochromasia 1+ Anisocytosis 1+ Prothrombin Time 11.6 SEC (9.30-11.50) H Prothromb Time International Ratio 1.1 (0.9-1.1) Activated Partial Thromboplast Time 26 SEC (23-33) Sodium Level 160 mEQ/L (135-145) H Potassium Level 3.5 mEQ/L (3.4-4.9) Chloride Level 114 mEQ/L (98-107) H Carbon Dioxide Level 40 mEQ/L (20-30) H Anion Gap 6 (5-15) Blood Urea Nitrogen 34 mg/dL (7-23) H Creatinine 0.5 mg/dL (0.5-0.9) Estimat Glomerular Filtration Rate > 60 mL/min (>60) Glucose Level 179 mg/dL (74-106) H Calcium Level 8.0 mg/dL (8.6-10.2) L Phosphorus Level 2.0 mg/dL (2.5-4.8) L Magnesium Level 2.3 mg/dL (1.7-2.5) Total Bilirubin 0.6 mg/dL (0.0-1.2) Aspartate Amino Transf (AST/SGOT) 32 U/L (5-40) Alanine Aminotransferase (ALT/SGPT) 12 U/L (3-33) Alkaline Phosphatase 227 U/L (35-104) H Total Protein 5.6 g/dL (6.6-8.7) L Albumin 2.1 g/dL (3.5-5.2) L Globulin 3.5 g/dL Albumin/Globulin Ratio 0.6 (1.0-2.7) L ANNE RAM January 14, 2017 18:32
[2017-01-15] VITALS (24 sets, daily range): BP systolic 101–153; BP diastolic 37–93
[2017-01-15] MEDS: Meropenem 1gm/NS 110ml IVPB SCH ×4 (01:36→13:05)
[2017-01-15 06:05] LABS: MEAN CORPUSCULAR HEMOGLOBIN 30.6 PG (27.0-31.0); MEAN CORPUSCULAR HGB CONC 31.9 G/DL (32.0-36.0); MEAN CORPUSCULAR VOLUME 96 FL (80-99); MEAN PLATELET VOLUME 7.8 FL (6.5-10.1); PLATELET COUNT 226 K/UL (150-450); RED CELL DISTRIBUTION WIDTH 15.8 % (11.6-14.8); WHITE BLOOD COUNT 21.6 K/UL (4.8-10.8)
[2017-01-15] MEDS: Metoclopramide 10mg/2ml Inj IVP SCH ×3 (06:05→17:28)
[2017-01-15] MEDS: NovoLOG Insulin Flexpen SUBQ SCH ×3 (06:06→17:29)
[2017-01-15 06:37] LABS: ALANINE AMINOTRANSFERASE 11 U/L (3-33); ALBUMIN/GLOBULIN RATIO 0.5 (1.0-2.7); ANION GAP 7 (5-15); ASPARTATE AMINO TRANSFERASE 27 U/L (5-40); CARBON DIOXIDE 39 mEQ/L (20-30); CHLORIDE 112 mEQ/L (98-107); CREATININE 0.5 mg/dL (0.5-0.9); CRP QUANT 1.2 mg/dL (< 0.5); GLOMERULAR FILTRATION RATE > 60 mL/min (>60); HEMOLYSIS 3; MAGNESIUM 2.2 mg/dL (1.7-2.5); PHOSPHORUS 2.1 mg/dL (2.5-4.8); POTASSIUM 3.4 mEQ/L (3.4-4.9); SODIUM 158 mEQ/L (135-145); TOTAL PROTEIN 5.6 g/dL (6.6-8.7); URIC ACID 5.3 mg/dL (3.0-7.5)
[2017-01-15] MEDS: Atenolol 25mg tab ORAL SCH (08:24)
--- NOTE | 2017-01-15 09:19 | Diagnostic Imaging Report ---
Indication: Abdominal pain Comparison: 01/12/17 Single view of the abdomen obtained Mildly distended small bowel noted in the midabdomen. Mathias catheter is present. Bones are osteopenic. Gastrostomy noted. Impression: Minimal distention of mid small bowel loops. These correlate clinically. Enteritis may be present. Gastrostomy
--- NOTE | 2017-01-15 09:20 | General Progress Note ---
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 on anticoagulation Pulmonary HTN HypoAlbuminemia ARDS Plan: One more liter of D5w for high Na Transfusion as needed per PMD On allopurinol K & Phos supplement as needed reglan IV DC Hydrocortisone IV Fluid challenge Keep bp above 100 syst by adjusting BP meds Optimize cardiac status Adjust pulmonary status- Per GI / Surgery Avoid nephrotoxics monitor renal parameters Subjective ROS Limited/Unobtainable: Yes Allergies: Coded Allergies: No Known Allergies (Unverified , 09/28/14) Objective Last 24 Hour Vital Signs Date Time Temp Pulse Resp B/P Pulse Ox O2 Delivery O2 Flow Rate FiO2 01/15/17 09:04 101 17 30 01/15/17 08:24 70 136/43 01/15/17 08:18 96 01/15/17 08:00 98.2 111 21 136/43 95 Mechanical Ventilator 30 01/15/17 08:00 30 01/15/17 07:25 30 01/15/17 07:00 111 22 151/46 97 Mechanical Ventilator 30 01/15/17 07:00 30 01/15/17 06:46 90 24 30 01/15/17 06:00 94 22 138/46 97 Mechanical Ventilator 30 01/15/17 05:05 95 19 30 01/15/17 05:00 77 24 125/67 95 Mechanical Ventilator 30 01/15/17 04:00 72 01/15/17 04:00 98.0 77 20 137/67 96 Mechanical Ventilator 30 01/15/17 04:00 30 01/15/17 03:30 78 17 30 01/15/17 03:00 80 24 126/52 95 Mechanical Ventilator 30 01/15/17 02:00 78 27 120/45 94 Mechanical Ventilator 30 01/15/17 01:30 85 17 30 01/15/17 01:00 79 28 146/51 95 Mechanical Ventilator 30 01/15/17 00:00 30 01/15/17 00:00 83 01/15/17 00:00 98.1 81 42 125/67 96 Mechanical Ventilator 30 01/14/17 23:25 73 14 30 01/14/17 23:00 74 29 130/39 95 Mechanical Ventilator 30 01/14/17 22:00 75 29 95/31 95 Mechanical Ventilator 30 01/14/17 21:23 89 14 30 01/14/17 21:00 66 22 130/39 96 Mechanical Ventilator 30 01/14/17 20:00 86 01/14/17 20:00 98.3 67 22 153/42 93 Mechanical Ventilator 30 01/14/17 20:00 30 01/14/17 19:25 86 15 30 01/14/17 19:00 95 22 141/54 97 Mechanical Ventilator 30 01/14/17 18:00 97 20 140/48 97 Mechanical Ventilator 30 01/14/17 17:00 91 21 151/55 97 Mechanical Ventilator 30 01/14/17 16:52 96 21 30 01/14/17 16:04 98.8 99 24 150/59 98 Mechanical Ventilator 30 01/14/17 16:00 30 01/14/17 16:00 93 01/14/17 15:06 81 23 30 01/14/17 15:05 79 18 143/49 97 Mechanical Ventilator 30 01/14/17 15:04 30 01/14/17 14:00 81 19 163/38 99 Mechanical Ventilator 01/14/17 13:27 82 17 30 01/14/17 13:00 89 20 159/63 99 Mechanical Ventilator 01/14/17 12:00 98.7 86 18 154/66 100 Mechanical Ventilator 30 01/14/17 12:00 90 01/14/17 11:53 30 01/14/17 11:00 82 19 158/65 99 Mechanical Ventilator 01/14/17 10:44 71 16 30 01/14/17 10:00 88 18 155/63 99 Mechanical Ventilator 01/14/17 09:37 98.8 Intake and Output 01/14/17 01/15/17 19:00 07:00 Intake Total 1560 ml 790 ml Output Total 655 ml 455 ml Balance 905 ml 335 ml IV Total 710 ml 310 ml Tube Feeding 420 ml 420 ml Blood Product 250 ml Other 180 ml 60 ml Output Urine Total 655 ml 455 ml Laboratory Tests 01/15/17 05:00: White Blood Count 21.6H, Red Blood Count 2.60L, Hemoglobin 8.0L, Hematocrit 24.9L, Mean Corpuscular Volume 96, Mean Corpuscular Hemoglobin 30.6, Mean Corpuscular Hemoglobin Concent 31.9L, Red Cell Distribution Width 15.8H, Platelet Count 226, Mean Platelet Volume 7.8, Neutrophils (%) (Auto) , Lymphocytes (%) (Auto) , Monocytes (%) (Auto) , Eosinophils (%) (Auto) , Basophils (%) (Auto) , Neutrophils % (Manual) [Pending], Lymphocytes % (Manual) [Pending], Platelet Estimate [Pending], Platelet Morphology [Pending], Sodium Level 158H, Potassium Level 3.4, Chloride Level 112H, Carbon Dioxide Level 39H, Anion Gap 7, Blood Urea Nitrogen 31H, Creatinine 0.5, Estimat Glomerular Filtration Rate > 60, Glucose Level 167H, Uric Acid 5.3, Calcium Level 8.0L, Phosphorus Level 2.1L, Magnesium Level 2.2, Total Bilirubin 0.6, Aspartate Amino Transf (AST/SGOT) 27, Alanine Aminotransferase (ALT/SGPT) 11, Alkaline Phosphatase 204H, C-Reactive Protein, Quantitative 1.2H, Pro-B-Type Natriuretic Peptide 9246H, Total Protein 5.6L, Albumin 1.9L, Globulin 3.7, Albumin/Globulin Ratio 0.5L Height (Feet): 5 Height (Inches): 1.00 Weight (Pounds): 200 General Appearance: no apparent distress Cardiovascular: tachycardia, arrhythmia Respiratory/Chest: decreased breath sounds Abdomen: distended Objective other PE not changed KAMINI SNOW January 15, 2017 09:20
[2017-01-15] MEDS: Phospha 250 Neutral tab ORAL SCH ×3 (09:23→17:28)
[2017-01-15 10:02] LABS: ANISOCYTOSIS 1+; BAND NEUTROPHILS % (MANUAL) 0 % (0-8); BASOPHILS % (MANUAL) 0 % (0-2); EOSINOPHILS % (MANUAL) 0 % (0-3); HYPOCHROMASIA 3+; LYMPHOCYTES % (MANUAL) 9 % (20-45); NEUTROPHILS % (MANUAL) 86 % (45-75); PLATELET ESTIMATE ADEQUATE; PLATELET MORPHOLOGY NORMAL; TOTAL CELLS COUNTED 100
[2017-01-15] MEDS ORDERED: NS 275ml ONE (10:14)
[2017-01-15] MEDS ORDERED: Tubing Blood Filter IV ONE (10:14)
[2017-01-15] MEDS ORDERED: D5W 275ml ONE (10:14)
--- NOTE | 2017-01-15 10:53 | Diagnostic Imaging Report ---
Indication: Dyspnea Comparison: 01/12/17 A single view chest radiograph was obtained. Findings: Extensive pulmonary vascular prominence, interstitial edema again demonstrated. There is a minor alveolar airspace component as well. Heart is enlarged. Sternotomy, category bowel, tracheostomy are again noted. Impression: Congestive heart failure. No significant change
--- NOTE | 2017-01-15 10:59 | Pulmonolgy Critical Care Note ---
Critical Care - Asmt/Plan Problems: (1) Respiratory failure requiring intubation (2) Ischemic colitis (3) Sepsis (4) Lower GI bleed (5) ATN (acute tubular necrosis) (6) Atrial fibrillation (7) Anemia (8) Pancreatitis Respiratory: monitor respiratory rate, adjust FIO2, CXR Cardiac: continue to monitor HR/BP Renal: F/U I&O, keep IV fluid Infectious Disease: check cultures, continue antibiotics, other Gastrointestinal: continue feedings/current rate Endocrine: monitor blood sugar, check HgA1C Hematologic: monitor H/H Neurologic: PRN Ativan, PRN Morphine Affect: PRN ativan Prophylaxis: Protonix, Heparin Notes Reviewed: director compliance, cardio, 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 with: nurses, consultants, family caseworker, family member Critical Care - Objective Last 24 Hour Vital Signs Date Time Temp Pulse Resp B/P Pulse Ox O2 Delivery O2 Flow Rate FiO2 01/15/17 10:00 84 20 142/41 96 Mechanical Ventilator 30 01/15/17 09:04 101 17 30 01/15/17 09:00 86 22 142/66 96 Mechanical Ventilator 30 01/15/17 08:24 70 136/43 01/15/17 08:18 96 01/15/17 08:00 98.2 111 21 136/43 95 Mechanical Ventilator 30 01/15/17 08:00 30 01/15/17 08:00 88 01/15/17 07:25 30 01/15/17 07:00 111 22 151/46 97 Mechanical Ventilator 30 01/15/17 07:00 30 01/15/17 06:46 90 24 30 01/15/17 06:00 94 22 138/46 97 Mechanical Ventilator 30 01/15/17 05:05 95 19 30 01/15/17 05:00 77 24 125/67 95 Mechanical Ventilator 30 01/15/17 04:00 72 01/15/17 04:00 98.0 77 20 137/67 96 Mechanical Ventilator 30 01/15/17 04:00 30 01/15/17 03:30 78 17 30 01/15/17 03:00 80 24 126/52 95 Mechanical Ventilator 30 01/15/17 02:00 78 27 120/45 94 Mechanical Ventilator 30 01/15/17 01:30 85 17 30 01/15/17 01:00 79 28 146/51 95 Mechanical Ventilator 30 01/15/17 00:00 30 01/15/17 00:00 83 01/15/17 00:00 98.1 81 42 125/67 96 Mechanical Ventilator 30 01/14/17 23:25 73 14 30 01/14/17 23:00 74 29 130/39 95 Mechanical Ventilator 30 01/14/17 22:00 75 29 95/31 95 Mechanical Ventilator 30 01/14/17 21:23 89 14 30 01/14/17 21:00 66 22 130/39 96 Mechanical Ventilator 30 01/14/17 20:00 86 01/14/17 20:00 98.3 67 22 153/42 93 Mechanical Ventilator 30 01/14/17 20:00 30 01/14/17 19:25 86 15 30 01/14/17 19:00 95 22 141/54 97 Mechanical Ventilator 30 01/14/17 18:00 97 20 140/48 97 Mechanical Ventilator 30 01/14/17 17:00 91 21 151/55 97 Mechanical Ventilator 30 01/14/17 16:52 96 21 30 01/14/17 16:04 98.8 99 24 150/59 98 Mechanical Ventilator 30 01/14/17 16:00 30 01/14/17 16:00 93 01/14/17 15:06 81 23 30 01/14/17 15:05 79 18 143/49 97 Mechanical Ventilator 30 01/14/17 15:04 30 01/14/17 14:00 81 19 163/38 99 Mechanical Ventilator 30 01/14/17 13:27 82 17 30 01/14/17 13:00 89 20 159/63 99 Mechanical Ventilator 30 01/14/17 12:00 98.7 86 18 154/66 100 Mechanical Ventilator 30 01/14/17 12:00 90 01/14/17 11:53 30 01/14/17 11:00 82 19 158/65 99 Mechanical Ventilator 30 Status: awake Condition: critical HEENT: atraumatic Neck: full ROM Lungs: chest wall tender Heart: HR/BP stable Abdomen: soft, non-tender Extremities: no C/C/E Accucheck: 165 Critical Care - Subjective ROS Limited/Unobtainable: Yes Condition: critical EKG Rhythm: Sinus Rhythm FI02: 30 Vent Support Breath Rate: 14 Vent Support Mode: AC Vent Tidal Volume: 500 Sputum Amount: Small PEEP: 5.0 PIP: 38 Fluids: d5w 100 cc.holur Drips: none Tube Feeding Amount: 35 I&O: Intake and Output 01/14/17 01/15/17 19:00 07:00 Intake Total 1560 ml 790 ml Output Total 655 ml 455 ml Balance 905 ml 335 ml IV Total 710 ml 310 ml Tube Feeding 420 ml 420 ml Blood Product 250 ml Other 180 ml 60 ml Output Urine Total 655 ml 455 ml CXR: no change ET Position: 22 Labs: Laboratory Tests Test 01/15/17 05:00 White Blood Count 21.6 K/UL (4.8-10.8) H Red Blood Count 2.60 M/UL (4.20-5.40) L Hemoglobin 8.0 G/DL (12.0-16.0) L Hematocrit 24.9 % (37.0-47.0) L Mean Corpuscular Volume 96 FL (80-99) Mean Corpuscular Hemoglobin 30.6 PG (27.0-31.0) Mean Corpuscular Hemoglobin Concent 31.9 G/DL (32.0-36.0) L Red Cell Distribution Width 15.8 % (11.6-14.8) H Platelet Count 226 K/UL (150-450) Mean Platelet Volume 7.8 FL (6.5-10.1) Neutrophils (%) (Auto) % (45.0-75.0) Lymphocytes (%) (Auto) % (20.0-45.0) Monocytes (%) (Auto) % (1.0-10.0) Eosinophils (%) (Auto) % (0.0-3.0) Basophils (%) (Auto) % (0.0-2.0) Differential Total Cells Counted 100 Neutrophils % (Manual) 86 % (45-75) H Lymphocytes % (Manual) 9 % (20-45) L Monocytes % (Manual) 5 % (1-10) Eosinophils % (Manual) 0 % (0-3) Basophils % (Manual) 0 % (0-2) Band Neutrophils 0 % (0-8) Platelet Estimate Adequate Platelet Morphology Normal Hypochromasia 3+ Anisocytosis 1+ Sodium Level 158 mEQ/L (135-145) H Potassium Level 3.4 mEQ/L (3.4-4.9) Chloride Level 112 mEQ/L (98-107) H Carbon Dioxide Level 39 mEQ/L (20-30) H Anion Gap 7 (5-15) Blood Urea Nitrogen 31 mg/dL (7-23) H Creatinine 0.5 mg/dL (0.5-0.9) Estimat Glomerular Filtration Rate > 60 mL/min (>60) Glucose Level 167 mg/dL (74-106) H Uric Acid 5.3 mg/dL (3.0-7.5) Calcium Level 8.0 mg/dL (8.6-10.2) L Phosphorus Level 2.1 mg/dL (2.5-4.8) L Magnesium Level 2.2 mg/dL (1.7-2.5) Total Bilirubin 0.6 mg/dL (0.0-1.2) Aspartate Amino Transf (AST/SGOT) 27 U/L (5-40) Alanine Aminotransferase (ALT/SGPT) 11 U/L (3-33) Alkaline Phosphatase 204 U/L (35-104) H C-Reactive Protein, Quantitative 1.2 mg/dL (< 0.5) H Pro-B-Type Natriuretic Peptide 9246 pg/mL (0-125) H Total Protein 5.6 g/dL (6.6-8.7) L Albumin 1.9 g/dL (3.5-5.2) L Globulin 3.7 g/dL Albumin/Globulin Ratio 0.5 (1.0-2.7) L TONY BRIDGES January 15, 2017 10:59
--- NOTE | 2017-01-15 11:06 | Infectious Diseases Prog Note ---
Assessment/Plan Assessment/Plan ASSESSMENT: Fever, SP leukocytosis ( probable due to GI bleed, and Ischemic colitis ) Pancreatitis improving CT: Findings compatible with marked worsening of acute pancreatitis MRCP : Cholelithiasis. There is also a calculus within the duct adjacent to the gallbladder Pancreatic Enzymes improving CT of Abd : reviewed cholelithiasis : US of liver : Incidental finding of cholelithiasis and mild gallbladder wall thickening positive sonographic Diaz's sign LFT : Nl UTI : Mandy SCx : Mandy ( colonizer ) SP s/p colonoscopy >> high suspicion for ischemic colitis SP PEG 01/02 VDRF: SP trach 01/01 Cxray : Increase in bilateral congestive changes with persistent small right , probable new left pleural effusions ARF SP aortic stenosis mitral stenosis status post mitral valve replacement AFib Pulmonary hypertension PLAN: - cont on IV Merrem d# 13 / 14 ( 01/13 oral Amoxi d# 7 ) ( 01/07 SP Zyvox d#5 and Flagyl d# 4 ) ( 12/28 SP Diflucan d# 10 ) ( 12/24 SP Merrem d# 14 /14 ) - monitor CBC, temperatures, - monitor LFT - GI f/u - Sx is following for possible Cholecystectomy later - VDRF - monitor Cx ( Bl ) - PRBC transfusion PRN Subjective Constitutional: Denies: anorexia, chills, drenching sweats, fatigue, fever, no symptoms, other Allergies: Coded Allergies: No Known Allergies (Unverified , 09/28/14) Subjective on Vent Objective Vital Signs Last 24 Hour Vital Signs Date Time Temp Pulse Resp B/P Pulse Ox O2 Delivery O2 Flow Rate FiO2 01/15/17 10:00 84 20 142/41 96 Mechanical Ventilator 30 01/15/17 09:04 101 17 30 01/15/17 09:00 86 22 142/66 96 Mechanical Ventilator 30 01/15/17 08:24 70 136/43 01/15/17 08:18 96 01/15/17 08:00 98.2 111 21 136/43 95 Mechanical Ventilator 30 01/15/17 08:00 30 01/15/17 08:00 88 01/15/17 07:25 30 01/15/17 07:00 111 22 151/46 97 Mechanical Ventilator 30 01/15/17 07:00 30 01/15/17 06:46 90 24 30 01/15/17 06:00 94 22 138/46 97 Mechanical Ventilator 30 01/15/17 05:05 95 19 30 01/15/17 05:00 77 24 125/67 95 Mechanical Ventilator 30 01/15/17 04:00 72 01/15/17 04:00 98.0 77 20 137/67 96 Mechanical Ventilator 30 01/15/17 04:00 30 01/15/17 03:30 78 17 30 01/15/17 03:00 80 24 126/52 95 Mechanical Ventilator 30 01/15/17 02:00 78 27 120/45 94 Mechanical Ventilator 30 01/15/17 01:30 85 17 30 01/15/17 01:00 79 28 146/51 95 Mechanical Ventilator 30 01/15/17 00:00 30 01/15/17 00:00 83 01/15/17 00:00 98.1 81 42 125/67 96 Mechanical Ventilator 30 01/14/17 23:25 73 14 30 01/14/17 23:00 74 29 130/39 95 Mechanical Ventilator 30 01/14/17 22:00 75 29 95/31 95 Mechanical Ventilator 30 01/14/17 21:23 89 14 30 01/14/17 21:00 66 22 130/39 96 Mechanical Ventilator 30 01/14/17 20:00 86 01/14/17 20:00 98.3 67 22 153/42 93 Mechanical Ventilator 30 01/14/17 20:00 30 01/14/17 19:25 86 15 30 01/14/17 19:00 95 22 141/54 97 Mechanical Ventilator 30 01/14/17 18:00 97 20 140/48 97 Mechanical Ventilator 30 01/14/17 17:00 91 21 151/55 97 Mechanical Ventilator 30 01/14/17 16:52 96 21 30 01/14/17 16:04 98.8 99 24 150/59 98 Mechanical Ventilator 30 01/14/17 16:00 30 01/14/17 16:00 93 01/14/17 15:06 81 23 30 01/14/17 15:05 79 18 143/49 97 Mechanical Ventilator 30 01/14/17 15:04 30 01/14/17 14:00 81 19 163/38 99 Mechanical Ventilator 30 01/14/17 13:27 82 17 30 01/14/17 13:00 89 20 159/63 99 Mechanical Ventilator 30 01/14/17 12:00 98.7 86 18 154/66 100 Mechanical Ventilator 30 01/14/17 12:00 90 01/14/17 11:53 30 Height (Feet): 5 Height (Inches): 1.00 Weight (Pounds): 200 HEENT: atraumatic Respiratory/Chest: respiratory distress Cardiovascular: regular rhythm Abdomen: non distended Laboratory Tests Test 01/15/17 05:00 White Blood Count 21.6 K/UL (4.8-10.8) H Red Blood Count 2.60 M/UL (4.20-5.40) L Hemoglobin 8.0 G/DL (12.0-16.0) L Hematocrit 24.9 % (37.0-47.0) L Mean Corpuscular Volume 96 FL (80-99) Mean Corpuscular Hemoglobin 30.6 PG (27.0-31.0) Mean Corpuscular Hemoglobin Concent 31.9 G/DL (32.0-36.0) L Red Cell Distribution Width 15.8 % (11.6-14.8) H Platelet Count 226 K/UL (150-450) Mean Platelet Volume 7.8 FL (6.5-10.1) Neutrophils (%) (Auto) % (45.0-75.0) Lymphocytes (%) (Auto) % (20.0-45.0) Monocytes (%) (Auto) % (1.0-10.0) Eosinophils (%) (Auto) % (0.0-3.0) Basophils (%) (Auto) % (0.0-2.0) Differential Total Cells Counted 100 Neutrophils % (Manual) 86 % (45-75) H Lymphocytes % (Manual) 9 % (20-45) L Monocytes % (Manual) 5 % (1-10) Eosinophils % (Manual) 0 % (0-3) Basophils % (Manual) 0 % (0-2) Band Neutrophils 0 % (0-8) Platelet Estimate Adequate Platelet Morphology Normal Hypochromasia 3+ Anisocytosis 1+ Sodium Level 158 mEQ/L (135-145) H Potassium Level 3.4 mEQ/L (3.4-4.9) Chloride Level 112 mEQ/L (98-107) H Carbon Dioxide Level 39 mEQ/L (20-30) H Anion Gap 7 (5-15) Blood Urea Nitrogen 31 mg/dL (7-23) H Creatinine 0.5 mg/dL (0.5-0.9) Estimat Glomerular Filtration Rate > 60 mL/min (>60) Glucose Level 167 mg/dL (74-106) H Uric Acid 5.3 mg/dL (3.0-7.5) Calcium Level 8.0 mg/dL (8.6-10.2) L Phosphorus Level 2.1 mg/dL (2.5-4.8) L Magnesium Level 2.2 mg/dL (1.7-2.5) Total Bilirubin 0.6 mg/dL (0.0-1.2) Aspartate Amino Transf (AST/SGOT) 27 U/L (5-40) Alanine Aminotransferase (ALT/SGPT) 11 U/L (3-33) Alkaline Phosphatase 204 U/L (35-104) H C-Reactive Protein, Quantitative 1.2 mg/dL (< 0.5) H Pro-B-Type Natriuretic Peptide 9246 pg/mL (0-125) H Total Protein 5.6 g/dL (6.6-8.7) L Albumin 1.9 g/dL (3.5-5.2) L Globulin 3.7 g/dL Albumin/Globulin Ratio 0.5 (1.0-2.7) L Current Medications Medications (Trade) Dose Ordered Sig/Lisbeth Route PRN Reason Start Time Stop Time Status Last Admin Dose Admin Acetaminophen (Tylenol) 650 mg Q4H PRN ORAL fever 12/17/16 08:00 01/16/17 07:59 01/14/17 15:54 Allopurinol (Allopurinol) 300 mg DAILY GT 01/07/17 16:30 02/06/17 16:29 01/15/17 08:23 Atenolol (Tenormin) 25 mg DAILY ORAL 01/11/17 19:45 02/10/17 19:44 01/15/17 08:24 Clonidine HCl (Catapres) 0.1 mg Q6H PRN GT SBP>170 mmHg 01/14/17 14:15 02/13/17 14:14 Dextrose (D5W 1000ml) 1,000 ml @ 100 mls/hr Q10H IV 01/15/17 10:00 01/15/17 19:59 01/15/17 09:23 Dextrose (Dextrose 50%) STAT PRN IV Hypoglycemia 12/17/16 07:30 01/16/17 07:29 Hydrocortisone (Anusol HC) 1 supp BIDPRN PRN RECTAL Anal discomfort/swelling/bleed 01/01/17 17:00 01/31/17 16:59 Insulin Aspart (NovoLOG) No Dose Q6HR SUBQ 12/17/16 12:00 01/16/17 11:59 01/15/17 06:06 Lansoprazole (Prevacid) 30 mg Q12HR GT 01/11/17 21:00 02/10/17 20:59 01/15/17 08:24 Meropenem/Sodium Chloride (Merrem/Sodium Chloride) 110 ml @ 220 mls/hr Q12HR@0200,1400 IVPB 01/07/17 14:00 01/16/17 13:59 01/15/17 01:36 Metoclopramide HCl 10 mg 10 mg Q6H IVP 01/06/17 18:00 02/05/17 17:59 01/15/17 06:05 Morphine Sulfate (Morphine Sulfate) 4 mg Q4H PRN IVP For Pain 01/15/17 07:30 01/22/17 07:29 Ondansetron HCl (Zofran) 4 mg EVERY 4 HOURS PRN IVP Nausea & Vomiting 01/03/17 07:00 02/02/17 06:59 01/14/17 15:54 Phosphorus 250 mg 250 mg THREE TIMES A DAY ORAL 01/15/17 10:00 02/14/17 09:59 01/15/17 09:23 Temazepam (Restoril) 15 mg HSPRN PRN ORAL Insomnia 01/11/17 21:00 01/18/17 20:59 01/14/17 21:28 OSCAR ANDERSON M.D. January 15, 2017 11:06
--- NOTE | 2017-01-15 11:50 | General Progress Note ---
Progress Note Progress Note Afebrile. Pt is resting comfortably on ventilator support. She is tolerating G- tube feedings. Abdomen is soft, she has prominent anasarca and pedal edema. WBC is improved to 21K. There is nothing to add from a surgical standpoint. Kaushal Tran MD January 15, 2017 11:50
--- NOTE | 2017-01-15 13:25 | GI Progress Note ---
Assessment/Plan Problems: (1) Pancreatitis ICD Codes: K85.9 - Acute pancreatitis, unspecified SNOMED: 80161256 Qualifiers: Qualified Codes: K85.10 - Biliary acute pancreatitis without necrosis or infection (2) Abdominal pain ICD Codes: R10.9 - Unspecified abdominal pain SNOMED: 71695572, 821938014 (3) Iron deficiency anemia ICD Codes: D50.9 - Iron deficiency anemia, unspecified SNOMED: 62412408 (4) Colon polyp ICD Codes: K63.5 - Polyp of colon SNOMED: 44225798 Status: unchanged Status Narrative Discussed wit Dr. Gipson. Assessment/Plan KUB reviewed for right sided abdominal distension >> Minimal distention of mid small bowel loops. >> monitor for now Pancreatitis - abdomen still very distended cholelithiasis, no e/o choledocholithiasis rising WBC S/P trach APCT reviewed>> 6 cm mass in the left paracolic gutter 01/04/17 cdiff negative OB stool positive s/p PEG s/p colonoscopy >> high suspicion for ischemic colitis, fu biopsy GTFs per dietary, tolerating monitor H&H, transfuse prn reglan ATC GT site care >> GT site bleed >> silver nitrate Rx >> surgical intervention if bleeding continues ppi BID abx monitor amylase/lipase follow labs supportive care Subjective Subjective limited Objective Last 24 Hour Vital Signs Date Time Temp Pulse Resp B/P Pulse Ox O2 Delivery O2 Flow Rate FiO2 01/15/17 13:15 67 15 30 01/15/17 12:00 75 01/15/17 12:00 77 20 142/43 98 Mechanical Ventilator 30 01/15/17 11:57 30 01/15/17 11:08 82 16 30 01/15/17 11:00 80 21 141/48 98 Mechanical Ventilator 30 01/15/17 10:00 84 20 142/41 96 Mechanical Ventilator 30 01/15/17 09:04 101 17 30 01/15/17 09:00 86 22 142/66 96 Mechanical Ventilator 30 01/15/17 08:24 70 136/43 01/15/17 08:18 96 01/15/17 08:00 98.2 111 21 136/43 95 Mechanical Ventilator 30 01/15/17 08:00 30 01/15/17 08:00 88 01/15/17 07:25 30 01/15/17 07:00 111 22 151/46 97 Mechanical Ventilator 30 01/15/17 07:00 30 01/15/17 06:46 90 24 30 01/15/17 06:00 94 22 138/46 97 Mechanical Ventilator 30 01/15/17 05:05 95 19 30 01/15/17 05:00 77 24 125/67 95 Mechanical Ventilator 30 01/15/17 04:00 72 01/15/17 04:00 98.0 77 20 137/67 96 Mechanical Ventilator 30 01/15/17 04:00 30 01/15/17 03:30 78 17 30 01/15/17 03:00 80 24 126/52 95 Mechanical Ventilator 30 01/15/17 02:00 78 27 120/45 94 Mechanical Ventilator 30 01/15/17 01:30 85 17 30 01/15/17 01:00 79 28 146/51 95 Mechanical Ventilator 30 01/15/17 00:00 30 01/15/17 00:00 83 01/15/17 00:00 98.1 81 42 125/67 96 Mechanical Ventilator 30 01/14/17 23:25 73 14 30 01/14/17 23:00 74 29 130/39 95 Mechanical Ventilator 30 01/14/17 22:00 75 29 95/31 95 Mechanical Ventilator 30 01/14/17 21:23 89 14 30 01/14/17 21:00 66 22 130/39 96 Mechanical Ventilator 30 01/14/17 20:00 86 01/14/17 20:00 98.3 67 22 153/42 93 Mechanical Ventilator 30 01/14/17 20:00 30 01/14/17 19:25 86 15 30 01/14/17 19:00 95 22 141/54 97 Mechanical Ventilator 30 01/14/17 18:00 97 20 140/48 97 Mechanical Ventilator 30 01/14/17 17:00 91 21 151/55 97 Mechanical Ventilator 30 01/14/17 16:52 96 21 30 01/14/17 16:04 98.8 99 24 150/59 98 Mechanical Ventilator 30 01/14/17 16:00 30 01/14/17 16:00 93 01/14/17 15:06 81 23 30 01/14/17 15:05 79 18 143/49 97 Mechanical Ventilator 30 01/14/17 15:04 30 01/14/17 14:00 81 19 163/38 99 Mechanical Ventilator 30 01/14/17 13:27 82 17 30 Intake and Output 01/14/17 01/15/17 19:00 07:00 Intake Total 1560 ml 790 ml Output Total 655 ml 455 ml Balance 905 ml 335 ml IV Total 710 ml 310 ml Tube Feeding 420 ml 420 ml Blood Product 250 ml Other 180 ml 60 ml Output Urine Total 655 ml 455 ml Laboratory Tests Test 01/15/17 05:00 White Blood Count 21.6 K/UL (4.8-10.8) H Red Blood Count 2.60 M/UL (4.20-5.40) L Hemoglobin 8.0 G/DL (12.0-16.0) L Hematocrit 24.9 % (37.0-47.0) L Mean Corpuscular Volume 96 FL (80-99) Mean Corpuscular Hemoglobin 30.6 PG (27.0-31.0) Mean Corpuscular Hemoglobin Concent 31.9 G/DL (32.0-36.0) L Red Cell Distribution Width 15.8 % (11.6-14.8) H Platelet Count 226 K/UL (150-450) Mean Platelet Volume 7.8 FL (6.5-10.1) Neutrophils (%) (Auto) % (45.0-75.0) Lymphocytes (%) (Auto) % (20.0-45.0) Monocytes (%) (Auto) % (1.0-10.0) Eosinophils (%) (Auto) % (0.0-3.0) Basophils (%) (Auto) % (0.0-2.0) Differential Total Cells Counted 100 Neutrophils % (Manual) 86 % (45-75) H Lymphocytes % (Manual) 9 % (20-45) L Monocytes % (Manual) 5 % (1-10) Eosinophils % (Manual) 0 % (0-3) Basophils % (Manual) 0 % (0-2) Band Neutrophils 0 % (0-8) Platelet Estimate Adequate Platelet Morphology Normal Hypochromasia 3+ Anisocytosis 1+ Sodium Level 158 mEQ/L (135-145) H Potassium Level 3.4 mEQ/L (3.4-4.9) Chloride Level 112 mEQ/L (98-107) H Carbon Dioxide Level 39 mEQ/L (20-30) H Anion Gap 7 (5-15) Blood Urea Nitrogen 31 mg/dL (7-23) H Creatinine 0.5 mg/dL (0.5-0.9) Estimat Glomerular Filtration Rate > 60 mL/min (>60) Glucose Level 167 mg/dL (74-106) H Uric Acid 5.3 mg/dL (3.0-7.5) Calcium Level 8.0 mg/dL (8.6-10.2) L Phosphorus Level 2.1 mg/dL (2.5-4.8) L Magnesium Level 2.2 mg/dL (1.7-2.5) Total Bilirubin 0.6 mg/dL (0.0-1.2) Aspartate Amino Transf (AST/SGOT) 27 U/L (5-40) Alanine Aminotransferase (ALT/SGPT) 11 U/L (3-33) Alkaline Phosphatase 204 U/L (35-104) H C-Reactive Protein, Quantitative 1.2 mg/dL (< 0.5) H Pro-B-Type Natriuretic Peptide 9246 pg/mL (0-125) H Total Protein 5.6 g/dL (6.6-8.7) L Albumin 1.9 g/dL (3.5-5.2) L Globulin 3.7 g/dL Albumin/Globulin Ratio 0.5 (1.0-2.7) L Height (Feet): 5 Height (Inches): 1.00 Weight (Pounds): 200 General Appearance: no apparent distress, alert Cardiovascular: normal rate Respiratory/Chest: other - mech vent Abdominal Exam: GT site - c/d/i, other - right side mid abdominal Objective Service Date: 12/11/16 Procedure: MRI Abdomen no Contrast Indication: Abdominal pain, possible pancreatitis Findings: Multiple calcifications are seen within the gallbladder. There is a ductal structure cephalad to the gallbladder which contains a filling defect. This is probably the cystic duct, but could be an extrahepatic bile duct, and it is uncertain which of these is. The gallbladder wall is not thickened. The extrahepatic bile ducts are ectatic, with the common bile duct measuring up to 9 mm diameter , but no downstream filling defects are demonstrated. The common bile duct terminates abruptly at the level of the ampulla. The pancreatic duct is mildly ectatic, measuring 3-4 mm in diameter. No intraluminal filling defects are demonstrated. A 7 mm fluid signal lesion is seen within the uncinate process of the pancreas. This may actually be a duodenal diverticulum which is seen on the recent CT scan. There is apparent swelling of the pancreas and considerable free intraperitoneal fluid. No free intraperitoneal fluid presumably increased from the prior CT scan. There are dilated small bowel loops, likely indicating ileus. The liver is unremarkable. The adrenals and kidneys are unremarkable. There are bilateral small pleural effusions. The spleen is unremarkable. The heart is enlarged Impression: Cholelithiasis. There is also a calculus within the duct adjacent to the gallbladder which is probably the cystic duct but could be an extrahepatic bile duct. Extrahepatic and central intrahepatic biliary ductal mild dilatation. No definite downstream calculus or pancreatic head mass to account for this, however. Prominence and edema of the pancreas, better visualized on prior CT scan, consistent with acute pancreatitis, also previously described Ascites fluid, increased from the prior CT scan, likely secondary to the acute pancreatitis Dilated small bowel loops, new since prior CT study. Suspect representing ileus related to the pancreatitis Bilateral small pleural effusions Small cystic lesion within the as a process. Suspect that this is actually the duodenal diverticulum described on recent CT scan, but could represent a tiny pseudocyst or intraductal papillary mucinous neoplasm. Cardiomegaly Lulu Dominguez N.P. January 15, 2017 13:25
[2017-01-15 13:55] LABS: ABG ALLEN TEST POSITIVE; ABG BASE EXCESS 17.5; ABG PCO2 58.7 mmHg (35.0-45.0)
--- NOTE | 2017-01-15 16:38 | Cardiology Progress Note ---
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 perm afib on anticoagulation with Coumadin coagulopathy now elevated due to med interaction adn disease process leukocytosis ARF intra abd hematomas brbpr anemia s/p transfucion hypernatremia anasarca ischemic colitis bp seem ok cr is normal heparin drip for mechanical mv stopped due to recurrent bleeding as of 48hour ago on low dose bb will resume heparin d/w rn if has recurrent bleeding for the focal segment of ischemic bowel may need to consider resection xray personally reviewed Subjective Cardiovascular: Denies: chest pain Respiratory: Reports: shortness of breath Gastrointestinal/Abdominal: Reports: abdominal pain Genitourinary: Denies: burning Subjective on the vent ,s/p trach Objective Last 24 Hour Vital Signs Date Time Temp Pulse Resp B/P Pulse Ox O2 Delivery O2 Flow Rate FiO2 01/15/17 16:00 97.8 83 21 132/49 96 Mechanical Ventilator 30 01/15/17 16:00 85 01/15/17 16:00 30 01/15/17 15:25 66 15 30 01/15/17 15:00 74 21 123/37 98 Mechanical Ventilator 30 01/15/17 14:00 72 20 120/40 98 Mechanical Ventilator 30 01/15/17 13:15 67 15 30 01/15/17 13:00 98.1 81 19 106/61 98 Mechanical Ventilator 30 01/15/17 12:00 75 01/15/17 12:00 77 20 142/43 98 Mechanical Ventilator 30 01/15/17 11:57 30 01/15/17 11:08 82 16 30 01/15/17 11:00 80 21 141/48 98 Mechanical Ventilator 30 01/15/17 10:00 84 20 142/41 96 Mechanical Ventilator 30 01/15/17 09:04 101 17 30 01/15/17 09:00 86 22 142/66 96 Mechanical Ventilator 30 01/15/17 08:24 70 136/43 01/15/17 08:18 96 01/15/17 08:00 98.2 111 21 136/43 95 Mechanical Ventilator 30 01/15/17 08:00 30 01/15/17 08:00 88 01/15/17 07:25 30 01/15/17 07:00 111 22 151/46 97 Mechanical Ventilator 30 01/15/17 07:00 30 01/15/17 06:46 90 24 30 01/15/17 06:00 94 22 138/46 97 Mechanical Ventilator 30 01/15/17 05:05 95 19 30 01/15/17 05:00 77 24 125/67 95 Mechanical Ventilator 30 01/15/17 04:00 72 01/15/17 04:00 98.0 77 20 137/67 96 Mechanical Ventilator 30 01/15/17 04:00 30 01/15/17 03:30 78 17 30 01/15/17 03:00 80 24 126/52 95 Mechanical Ventilator 30 01/15/17 02:00 78 27 120/45 94 Mechanical Ventilator 30 01/15/17 01:30 85 17 30 01/15/17 01:00 79 28 146/51 95 Mechanical Ventilator 30 01/15/17 00:00 30 01/15/17 00:00 83 01/15/17 00:00 98.1 81 42 125/67 96 Mechanical Ventilator 30 01/14/17 23:25 73 14 30 01/14/17 23:00 74 29 130/39 95 Mechanical Ventilator 30 01/14/17 22:00 75 29 95/31 95 Mechanical Ventilator 30 01/14/17 21:23 89 14 30 01/14/17 21:00 66 22 130/39 96 Mechanical Ventilator 01/14/17 20:00 86 01/14/17 20:00 98.3 67 22 153/42 93 Mechanical Ventilator 30 01/14/17 20:00 30 01/14/17 19:25 86 15 30 01/14/17 19:00 95 22 141/54 97 Mechanical Ventilator 30 01/14/17 18:00 97 20 140/48 97 Mechanical Ventilator 30 01/14/17 17:00 91 21 151/55 97 Mechanical Ventilator 30 01/14/17 16:52 96 21 30 General Appearance: no apparent distress, alert, on vent Neck: supple Cardiovascular: irregularly irregular, other - mechanical eart sound Respiratory/Chest: lungs clear - ant Abdomen: non tender Extremities: moderate edema Intake and Output 01/14/17 01/15/17 19:00 07:00 Intake Total 1560 ml 790 ml Output Total 655 ml 455 ml Balance 905 ml 335 ml IV Total 710 ml 310 ml Tube Feeding 420 ml 420 ml Blood Product 250 ml Other 180 ml 60 ml Output Urine Total 655 ml 455 ml Laboratory Tests Test 01/15/17 05:00 01/15/17 13:00 White Blood Count 21.6 K/UL (4.8-10.8) H Red Blood Count 2.60 M/UL (4.20-5.40) L Hemoglobin 8.0 G/DL (12.0-16.0) L Hematocrit 24.9 % (37.0-47.0) L Mean Corpuscular Volume 96 FL (80-99) Mean Corpuscular Hemoglobin 30.6 PG (27.0-31.0) Mean Corpuscular Hemoglobin Concent 31.9 G/DL (32.0-36.0) L Red Cell Distribution Width 15.8 % (11.6-14.8) H Platelet Count 226 K/UL (150-450) Mean Platelet Volume 7.8 FL (6.5-10.1) Neutrophils (%) (Auto) % (45.0-75.0) Lymphocytes (%) (Auto) % (20.0-45.0) Monocytes (%) (Auto) % (1.0-10.0) Eosinophils (%) (Auto) % (0.0-3.0) Basophils (%) (Auto) % (0.0-2.0) Differential Total Cells Counted 100 Neutrophils % (Manual) 86 % (45-75) H Lymphocytes % (Manual) 9 % (20-45) L Monocytes % (Manual) 5 % (1-10) Eosinophils % (Manual) 0 % (0-3) Basophils % (Manual) 0 % (0-2) Band Neutrophils 0 % (0-8) Platelet Estimate Adequate Platelet Morphology Normal Hypochromasia 3+ Anisocytosis 1+ Sodium Level 158 mEQ/L (135-145) H Potassium Level 3.4 mEQ/L (3.4-4.9) Chloride Level 112 mEQ/L (98-107) H Carbon Dioxide Level 39 mEQ/L (20-30) H Anion Gap 7 (5-15) Blood Urea Nitrogen 31 mg/dL (7-23) H Creatinine 0.5 mg/dL (0.5-0.9) Estimat Glomerular Filtration Rate > 60 mL/min (>60) Glucose Level 167 mg/dL (74-106) H Uric Acid 5.3 mg/dL (3.0-7.5) Calcium Level 8.0 mg/dL (8.6-10.2) L Phosphorus Level 2.1 mg/dL (2.5-4.8) L Magnesium Level 2.2 mg/dL (1.7-2.5) Total Bilirubin 0.6 mg/dL (0.0-1.2) Aspartate Amino Transf (AST/SGOT) 27 U/L (5-40) Alanine Aminotransferase (ALT/SGPT) 11 U/L (3-33) Alkaline Phosphatase 204 U/L (35-104) H C-Reactive Protein, Quantitative 1.2 mg/dL (< 0.5) H Pro-B-Type Natriuretic Peptide 9246 pg/mL (0-125) H Total Protein 5.6 g/dL (6.6-8.7) L Albumin 1.9 g/dL (3.5-5.2) L Globulin 3.7 g/dL Albumin/Globulin Ratio 0.5 (1.0-2.7) L Arterial Blood pH 7.481 (7.350-7.450) Arterial Blood Partial Pressure CO2 58.7 mmHg (35.0-45.0) *H Arterial Blood Partial Pressure O2 74.1 mmHg (75.0-100.0) L Arterial Blood HCO3 42.8 mmol/L (22.0-26.0) H Arterial Blood Oxygen Saturation 94.1 % (92.0-98.0) Arterial Blood Base Excess 17.5 Ok Test Positive ANNE RAM January 15, 2017 16:38
[2017-01-15] MEDS ORDERED: Heparin 25,000u/D5W 500ml 500 ML IV SCH (17:00)
[2017-01-15] MEDS ORDERED: Heparin 5000 units/ml inj IV ONE (17:00)
[2017-01-15 17:29] LABS: MEAN CORPUSCULAR HEMOGLOBIN 32.5 PG (27.0-31.0); MEAN CORPUSCULAR HGB CONC 32.9 G/DL (32.0-36.0); MEAN CORPUSCULAR VOLUME 99 FL (80-99); MEAN PLATELET VOLUME 7.8 FL (6.5-10.1); PLATELET COUNT 163 K/UL (150-450); RED BLOOD COUNT 2.29 M/UL (4.20-5.40); RED CELL DISTRIBUTION WIDTH 15.9 % (11.6-14.8); WHITE BLOOD COUNT 18.6 K/UL (4.8-10.8)
[2017-01-15 17:31] LABS: LYMPHOCYTES % (AUTO) 8.8 % (20.0-45.0)
[2017-01-15 17:32] LABS: BASOPHILS % (AUTO) 0.7 % (0.0-2.0); EOSINOPHILS % (AUTO) 1.2 % (0.0-3.0); MONOCYTES % (AUTO) 3.4 % (1.0-10.0)
[2017-01-16] VITALS (24 sets, daily range): BP systolic 121–171; BP diastolic 35–65
[2017-01-16] MEDS: NovoLOG Insulin Flexpen SUBQ SCH ×4 (00:17→17:37)
[2017-01-16] MEDS: Metoclopramide 10mg/2ml Inj IVP SCH ×4 (00:17→17:37)
[2017-01-16] MEDS: Meropenem 1gm/NS 110ml IVPB SCH ×2 (02:31)
[2017-01-16] MEDS: Morphine Sulfate 4mg/ml Inj IVP PRN ×2 (03:57→11:49)
[2017-01-16 05:30] LABS: MEAN CORPUSCULAR HEMOGLOBIN 30.5 PG (27.0-31.0); MEAN CORPUSCULAR HGB CONC 32.2 G/DL (32.0-36.0); MEAN CORPUSCULAR VOLUME 95 FL (80-99); MEAN PLATELET VOLUME 8.8 FL (6.5-10.1); PLATELET COUNT 202 K/UL (150-450); RED BLOOD COUNT 2.87 M/UL (4.20-5.40); RED CELL DISTRIBUTION WIDTH 15.7 % (11.6-14.8); WHITE BLOOD COUNT 18.5 K/UL (4.8-10.8)
[2017-01-16 05:52] LABS: ALANINE AMINOTRANSFERASE 11 U/L (3-33); ALBUMIN/GLOBULIN RATIO 0.5 (1.0-2.7); ANION GAP 6 (5-15); ASPARTATE AMINO TRANSFERASE 30 U/L (5-40); CALCIUM 8.2 mg/dL (8.6-10.2); CARBON DIOXIDE 38 mEQ/L (20-30); CHLORIDE 111 mEQ/L (98-107); CREATININE 0.5 mg/dL (0.5-0.9); GLOMERULAR FILTRATION RATE > 60 mL/min (>60); HEMOLYSIS 5; MAGNESIUM 2.1 mg/dL (1.7-2.5); PHOSPHORUS 2.4 mg/dL (2.5-4.8); POTASSIUM 3.5 mEQ/L (3.4-4.9); SODIUM 155 mEQ/L (135-145); TOTAL PROTEIN 5.9 g/dL (6.6-8.7); URIC ACID 4.5 mg/dL (3.0-7.5)
[2017-01-16] MEDS ORDERED: Heparin 25,000u/D5W 500ml 500 ML IV SCH (06:30)
[2017-01-16] MEDS: Atenolol 25mg tab ORAL SCH (08:00)
[2017-01-16] MEDS: Phospha 250 Neutral tab ORAL SCH ×3 (08:00→17:37)
[2017-01-16 08:41] LABS: EOSINOPHILS % (MANUAL) 2 % (0-3); LYMPHOCYTES % (MANUAL) 8 % (20-45); NEUTROPHILS % (MANUAL) 86 % (45-75); TOTAL CELLS COUNTED 100
[2017-01-16 08:42] LABS: ANISOCYTOSIS 1+; BAND NEUTROPHILS % (MANUAL) 0 % (0-8); BASOPHILS % (MANUAL) 0 % (0-2); HYPOCHROMASIA 2+; PLATELET ESTIMATE ADEQUATE; PLATELET MORPHOLOGY NORMAL
--- NOTE | 2017-01-16 10:36 | GI Progress Note ---
Assessment/Plan Problems: (1) Pancreatitis ICD Codes: K85.9 - Acute pancreatitis, unspecified SNOMED: 03354625 Qualifiers: Qualified Codes: K85.10 - Biliary acute pancreatitis without necrosis or infection (2) Abdominal pain ICD Codes: R10.9 - Unspecified abdominal pain SNOMED: 28958742, 656350795 (3) Iron deficiency anemia ICD Codes: D50.9 - Iron deficiency anemia, unspecified SNOMED: 31014768 (4) Colon polyp ICD Codes: K63.5 - Polyp of colon SNOMED: 93331416 (5) Ischemic colitis ICD Codes: K55.9 - Vascular disorder of intestine, unspecified SNOMED: 86895799 Status: unchanged Status Narrative Discussed with Dr. Gipson. Assessment/Plan KUB reviewed for right sided abdominal distension >> Minimal distention of mid small bowel loops. >> monitor, improved today Pancreatitis - abdomen still very distended cholelithiasis, no e/o choledocholithiasis rising WBC S/P trach APCT reviewed>> 6 cm mass in the left paracolic gutter 01/04/17 cdiff negative OB stool positive s/p PEG s/p colonoscopy >> high suspicion for ischemic colitis, fu biopsy GTFs per dietary, tolerating monitor H&H, transfuse prn reglan ATC GT site care >> GT site bleed >> silver nitrate Rx >> surgical intervention if bleeding continues ppi BID abx monitor amylase/lipase follow labs supportive care Subjective Subjective limited Objective Last 24 Hour Vital Signs Date Time Temp Pulse Resp B/P Pulse Ox O2 Delivery O2 Flow Rate FiO2 01/16/17 10:00 64 19 158/63 98 Mechanical Ventilator 30 01/16/17 09:17 91 20 30 01/16/17 09:00 83 18 133/46 98 Mechanical Ventilator 30 01/16/17 08:00 79 01/16/17 08:00 99.0 89 23 145/65 97 Mechanical Ventilator 30 01/16/17 08:00 30 01/16/17 08:00 87 121/35 01/16/17 07:13 91 20 30 01/16/17 07:00 30 01/16/17 07:00 84 23 121/35 97 Mechanical Ventilator 30 01/16/17 06:00 81 23 148/59 97 Mechanical Ventilator 30 01/16/17 05:25 67 15 30 01/16/17 05:00 60 22 132/37 97 Mechanical Ventilator 30 01/16/17 04:00 78 01/16/17 04:00 30 01/16/17 04:00 98.9 81 22 171/53 97 Mechanical Ventilator 30 01/16/17 03:34 81 16 30 01/16/17 03:00 85 23 134/52 97 Mechanical Ventilator 30 01/16/17 02:00 82 22 139/54 98 Mechanical Ventilator 30 01/16/17 01:17 92 14 30 01/16/17 01:00 82 22 151/57 98 Mechanical Ventilator 30 01/16/17 00:00 99.1 83 24 138/48 97 Mechanical Ventilator 30 01/16/17 00:00 30 01/16/17 00:00 82 01/15/17 23:13 74 15 30 01/15/17 23:00 82 22 151/51 98 Mechanical Ventilator 30 01/15/17 22:00 78 22 139/54 97 Mechanical Ventilator 30 01/15/17 21:45 81 19 30 01/15/17 21:00 79 19 135/57 97 Mechanical Ventilator 30 01/15/17 20:00 76 01/15/17 20:00 30 01/15/17 20:00 98.3 79 21 153/52 98 Mechanical Ventilator 30 01/15/17 19:17 77 19 30 01/15/17 19:00 80 18 129/93 97 Mechanical Ventilator 30 01/15/17 18:00 79 19 139/50 98 Mechanical Ventilator 30 01/15/17 17:00 75 20 101/50 98 Mechanical Ventilator 30 01/15/17 16:57 85 17 30 01/15/17 16:00 97.8 83 21 132/49 96 Mechanical Ventilator 30 01/15/17 16:00 85 01/15/17 16:00 30 01/15/17 15:25 66 15 30 01/15/17 15:00 74 21 123/37 98 Mechanical Ventilator 30 01/15/17 14:00 72 20 120/40 98 Mechanical Ventilator 30 01/15/17 13:15 67 15 30 01/15/17 13:00 98.1 81 19 106/61 98 Mechanical Ventilator 30 01/15/17 12:00 75 01/15/17 12:00 77 20 142/43 98 Mechanical Ventilator 30 01/15/17 11:57 30 01/15/17 11:08 82 16 30 01/15/17 11:00 80 21 141/48 98 Mechanical Ventilator 30 Intake and Output 01/15/17 01/16/17 19:00 07:00 Intake Total 1901.316 ml 1229.111 ml Output Total 720 ml 725 ml Balance 1181.316 ml 504.111 ml Free Water 300 ml 100 ml IV Total 1041.316 ml 419.111 ml Tube Feeding 420 ml 420 ml Blood Product 250 ml Other 140 ml 40 ml Output Urine Total 720 ml 725 ml # Bowel Movements 4 8 Laboratory Tests Test 01/15/17 13:00 01/15/17 15:45 01/15/17 16:00 01/15/17 22:45 Arterial Blood pH 7.481 (7.350-7.450) Arterial Blood Partial Pressure CO2 58.7 mmHg (35.0-45.0) *H Arterial Blood Partial Pressure O2 74.1 mmHg (75.0-100.0) L Arterial Blood HCO3 42.8 mmol/L (22.0-26.0) H Arterial Blood Oxygen Saturation 94.1 % (92.0-98.0) Arterial Blood Base Excess 17.5 Ok Test Positive White Blood Count 18.6 K/UL (4.8-10.8) H Red Blood Count 2.29 M/UL (4.20-5.40) L Hemoglobin 7.5 G/DL (12.0-16.0) L Hematocrit 22.7 % (37.0-47.0) L Mean Corpuscular Volume 99 FL (80-99) Mean Corpuscular Hemoglobin 32.5 PG (27.0-31.0) H Mean Corpuscular Hemoglobin Concent 32.9 G/DL (32.0-36.0) Red Cell Distribution Width 15.9 % (11.6-14.8) H Platelet Count 163 K/UL (150-450) Mean Platelet Volume 7.8 FL (6.5-10.1) Neutrophils (%) (Auto) 86.0 % (45.0-75.0) H Lymphocytes (%) (Auto) 8.8 % (20.0-45.0) L Monocytes (%) (Auto) 3.4 % (1.0-10.0) Eosinophils (%) (Auto) 1.2 % (0.0-3.0) Basophils (%) (Auto) 0.7 % (0.0-2.0) Activated Partial Thromboplast Time 21 SEC (23-33) L 81 SEC (23-33) H Test 01/16/17 04:05 White Blood Count 18.5 K/UL (4.8-10.8) H Red Blood Count 2.87 M/UL (4.20-5.40) L Hemoglobin 8.8 G/DL (12.0-16.0) L Hematocrit 27.2 % (37.0-47.0) L Mean Corpuscular Volume 95 FL (80-99) Mean Corpuscular Hemoglobin 30.5 PG (27.0-31.0) Mean Corpuscular Hemoglobin Concent 32.2 G/DL (32.0-36.0) Red Cell Distribution Width 15.7 % (11.6-14.8) H Platelet Count 202 K/UL (150-450) Mean Platelet Volume 8.8 FL (6.5-10.1) Neutrophils (%) (Auto) % (45.0-75.0) Lymphocytes (%) (Auto) % (20.0-45.0) Monocytes (%) (Auto) % (1.0-10.0) Eosinophils (%) (Auto) % (0.0-3.0) Basophils (%) (Auto) % (0.0-2.0) Differential Total Cells Counted 100 Neutrophils % (Manual) 86 % (45-75) H Lymphocytes % (Manual) 8 % (20-45) L Monocytes % (Manual) 4 % (1-10) Eosinophils % (Manual) 2 % (0-3) Basophils % (Manual) 0 % (0-2) Band Neutrophils 0 % (0-8) Platelet Estimate Adequate Platelet Morphology Normal Hypochromasia 2+ Anisocytosis 1+ Activated Partial Thromboplast Time 122 SEC (23-33) H Sodium Level 155 mEQ/L (135-145) H Potassium Level 3.5 mEQ/L (3.4-4.9) Chloride Level 111 mEQ/L (98-107) H Carbon Dioxide Level 38 mEQ/L (20-30) H Anion Gap 6 (5-15) Blood Urea Nitrogen 24 mg/dL (7-23) H Creatinine 0.5 mg/dL (0.5-0.9) Estimat Glomerular Filtration Rate > 60 mL/min (>60) Glucose Level 148 mg/dL (74-106) H Uric Acid 4.5 mg/dL (3.0-7.5) Calcium Level 8.2 mg/dL (8.6-10.2) L Phosphorus Level 2.4 mg/dL (2.5-4.8) L Magnesium Level 2.1 mg/dL (1.7-2.5) Total Bilirubin 0.8 mg/dL (0.0-1.2) Gamma Glutamyl Transpeptidase 195 U/L (5-36) H Aspartate Amino Transf (AST/SGOT) 30 U/L (5-40) Alanine Aminotransferase (ALT/SGPT) 11 U/L (3-33) Alkaline Phosphatase 219 U/L (35-104) H Pro-B-Type Natriuretic Peptide 6636 pg/mL (0-125) H Total Protein 5.9 g/dL (6.6-8.7) L Albumin 2.1 g/dL (3.5-5.2) L Globulin 3.8 g/dL Albumin/Globulin Ratio 0.5 (1.0-2.7) L Height (Feet): 5 Height (Inches): 1.00 Weight (Pounds): 200 General Appearance: no apparent distress, alert Cardiovascular: normal rate Respiratory/Chest: other - mech vent Abdominal Exam: site - c/d/i Objective Service Date: 12/11/16 Procedure: MRI Abdomen no Contrast Indication: Abdominal pain, possible pancreatitis Findings: Multiple calcifications are seen within the gallbladder. There is a ductal structure cephalad to the gallbladder which contains a filling defect. This is probably the cystic duct, but could be an extrahepatic bile duct, and it is uncertain which of these is. The gallbladder wall is not thickened. The extrahepatic bile ducts are ectatic, with the common bile duct measuring up to 9 mm diameter , but no downstream filling defects are demonstrated. The common bile duct terminates abruptly at the level of the ampulla. The pancreatic duct is mildly ectatic, measuring 3-4 mm in diameter. No intraluminal filling defects are demonstrated. A 7 mm fluid signal lesion is seen within the uncinate process of the pancreas. This may actually be a duodenal diverticulum which is seen on the recent CT scan. There is apparent swelling of the pancreas and considerable free intraperitoneal fluid. No free intraperitoneal fluid presumably increased from the prior CT scan. There are dilated small bowel loops, likely indicating ileus. The liver is unremarkable. The adrenals and kidneys are unremarkable. There are bilateral small pleural effusions. The spleen is unremarkable. The heart is enlarged Impression: Cholelithiasis. There is also a calculus within the duct adjacent to the gallbladder which is probably the cystic duct but could be an extrahepatic bile duct. Extrahepatic and central intrahepatic biliary ductal mild dilatation. No definite downstream calculus or pancreatic head mass to account for this, however. Prominence and edema of the pancreas, better visualized on prior CT scan, consistent with acute pancreatitis, also previously described Ascites fluid, increased from the prior CT scan, likely secondary to the acute pancreatitis Dilated small bowel loops, new since prior CT study. Suspect representing ileus related to the pancreatitis Bilateral small pleural effusions Small cystic lesion within the as a process. Suspect that this is actually the duodenal diverticulum described on recent CT scan, but could represent a tiny pseudocyst or intraductal papillary mucinous neoplasm. Cardiomegaly Lulu Dominguez N.P. January 16, 2017 10:36
[2017-01-16] MEDS ORDERED: Lidocaine 1% 10mg/ml/Epi 0.005mg/ml 30ml vial INJ ONE (11:45)
--- NOTE | 2017-01-16 11:49 | General Progress Note ---
Assessment/Plan Status: unchanged Status Narrative Na lower- Hgb higher Assessment/Plan status: Acute Renal Failure- stable area of concern in sigmoid colon for possible ischemia found during colonoscopy 01/10 High A1c Sepsis / Pancreatitis / Gall stones Atrial Fib High INR s/ bioprostheic Aortic Valve repalcment 2014 s/p controller mechanic Mirtral Vavle prosthesis on anticoagulation Pulmonary HTN HypoAlbuminemia ARDS Plan: One more liter of D5w for high Na Transfusion as needed per PMD On allopurinol K & Phos supplement as needed reglan IV DC Hydrocortisone IV Fluid challenge Keep bp above 100 syst by adjusting BP meds Optimize cardiac status Adjust pulmonary status- Per GI / Surgery Avoid nephrotoxics monitor renal parameters Subjective ROS Limited/Unobtainable: Yes Allergies: Coded Allergies: No Known Allergies (Unverified , 09/28/14) Objective Last 24 Hour Vital Signs Date Time Temp Pulse Resp B/P Pulse Ox O2 Delivery O2 Flow Rate FiO2 01/16/17 11:00 84 19 153/56 98 Mechanical Ventilator 30 01/16/17 10:32 89 20 30 01/16/17 10:00 64 19 158/63 98 Mechanical Ventilator 30 01/16/17 09:17 91 20 30 01/16/17 09:00 83 18 133/46 98 Mechanical Ventilator 30 01/16/17 08:00 79 01/16/17 08:00 99.0 89 23 145/65 97 Mechanical Ventilator 30 01/16/17 08:00 30 01/16/17 08:00 87 121/35 01/16/17 07:13 91 20 30 01/16/17 07:00 30 01/16/17 07:00 84 23 121/35 97 Mechanical Ventilator 30 01/16/17 06:00 81 23 148/59 97 Mechanical Ventilator 30 01/16/17 05:25 67 15 30 01/16/17 05:00 60 22 132/37 97 Mechanical Ventilator 30 01/16/17 04:00 78 01/16/17 04:00 30 01/16/17 04:00 98.9 81 22 171/53 97 Mechanical Ventilator 30 01/16/17 03:34 81 16 30 01/16/17 03:00 85 23 134/52 97 Mechanical Ventilator 30 01/16/17 02:00 82 22 139/54 98 Mechanical Ventilator 30 01/16/17 01:17 92 14 30 01/16/17 01:00 82 22 151/57 98 Mechanical Ventilator 30 01/16/17 00:00 99.1 83 24 138/48 97 Mechanical Ventilator 30 01/16/17 00:00 30 01/16/17 00:00 82 01/15/17 23:13 74 15 30 01/15/17 23:00 82 22 151/51 98 Mechanical Ventilator 30 01/15/17 22:00 78 22 139/54 97 Mechanical Ventilator 30 01/15/17 21:45 81 19 30 01/15/17 21:00 79 19 135/57 97 Mechanical Ventilator 30 01/15/17 20:00 76 01/15/17 20:00 30 01/15/17 20:00 98.3 79 21 153/52 98 Mechanical Ventilator 30 01/15/17 19:17 77 19 30 01/15/17 19:00 80 18 129/93 97 Mechanical Ventilator 30 01/15/17 18:00 79 19 139/50 98 Mechanical Ventilator 30 01/15/17 17:00 75 20 101/50 98 Mechanical Ventilator 30 01/15/17 16:57 85 17 30 01/15/17 16:00 97.8 83 21 132/49 96 Mechanical Ventilator 30 01/15/17 16:00 85 01/15/17 16:00 30 01/15/17 15:25 66 15 30 01/15/17 15:00 74 21 123/37 98 Mechanical Ventilator 30 01/15/17 14:00 72 20 120/40 98 Mechanical Ventilator 30 01/15/17 13:15 67 15 30 01/15/17 13:00 98.1 81 19 106/61 98 Mechanical Ventilator 30 01/15/17 12:00 75 01/15/17 12:00 77 20 142/43 98 Mechanical Ventilator 30 01/15/17 11:57 30 Intake and Output 01/15/17 01/16/17 19:00 07:00 Intake Total 1901.316 ml 1229.111 ml Output Total 720 ml 725 ml Balance 1181.316 ml 504.111 ml Free Water 300 ml 100 ml IV Total 1041.316 ml 419.111 ml Tube Feeding 420 ml 420 ml Blood Product 250 ml Other 140 ml 40 ml Output Urine Total 720 ml 725 ml # Bowel Movements 4 8 Laboratory Tests 01/15/17 13:00: Arterial Blood pH 7.481H, Arterial Blood Partial Pressure CO2 58.7*H, Arterial Blood Partial Pressure O2 74.1L, Arterial Blood HCO3 42.8H, Arterial Blood Oxygen Saturation 94.1, Arterial Blood Base Excess 17.5, Ok Test Positive 01/15/17 15:45: White Blood Count 18.6H, Red Blood Count 2.29L, Hemoglobin 7.5L, Hematocrit 22.7L, Mean Corpuscular Volume 99, Mean Corpuscular Hemoglobin 32.5H, Mean Corpuscular Hemoglobin Concent 32.9, Red Cell Distribution Width 15.9H, Platelet Count 163, Mean Platelet Volume 7.8, Neutrophils (%) (Auto) 86.0H, Lymphocytes (%) (Auto) 8.8L, Monocytes (%) (Auto) 3.4, Eosinophils (%) (Auto) 1.2, Basophils (%) (Auto) 0.7 01/15/17 16:00: Activated Partial Thromboplast Time 21L 01/15/17 22:45: Activated Partial Thromboplast Time 81H 01/16/17 04:05: White Blood Count 18.5H, Red Blood Count 2.87L, Hemoglobin 8.8L, Hematocrit 27.2L, Mean Corpuscular Volume 95, Mean Corpuscular Hemoglobin 30.5, Mean Corpuscular Hemoglobin Concent 32.2, Red Cell Distribution Width 15.7H, Platelet Count 202, Mean Platelet Volume 8.8, Neutrophils (%) (Auto) , Lymphocytes (%) (Auto) , Monocytes (%) (Auto) , Eosinophils (%) (Auto) , Basophils (%) (Auto) , Differential Total Cells Counted 100, Neutrophils % ( Manual) 86H, Lymphocytes % (Manual) 8L, Monocytes % (Manual) 4, Eosinophils % ( Manual) 2, Basophils % (Manual) 0, Band Neutrophils 0, Platelet Estimate Adequate, Platelet Morphology Normal, Hypochromasia 2+, Anisocytosis 1+, Activated Partial Thromboplast Time 122H, Sodium Level 155H, Potassium Level 3.5 , Chloride Level 111H, Carbon Dioxide Level 38H, Anion Gap 6, Blood Urea Nitrogen 24H, Creatinine 0.5, Estimat Glomerular Filtration Rate > 60, Glucose Level 148H, Uric Acid 4.5, Calcium Level 8.2L, Phosphorus Level 2.4L, Magnesium Level 2.1, Total Bilirubin 0.8, Gamma Glutamyl Transpeptidase 195H, Aspartate Amino Transf (AST/SGOT) 30, Alanine Aminotransferase (ALT/SGPT) 11, Alkaline Phosphatase 219H, Pro-B-Type Natriuretic Peptide 6636H, Total Protein 5.9L, Albumin 2.1L, Globulin 3.8, Albumin/Globulin Ratio 0.5L Height (Feet): 5 Height (Inches): 1.00 Weight (Pounds): 200 General Appearance: no apparent distress Cardiovascular: normal rate Respiratory/Chest: decreased breath sounds Objective other PE not changed KAMINI SNOW January 16, 2017 11:49
--- NOTE | 2017-01-16 11:53 | Operative Note - PDOC ---
Operative Note Operative Note Date of Operation/Procedure: January 16, 2017 Chief Complaint: bleeding from PEG incision Pre-op Diagnosis: Bleeding from PEG site incision Procedure: Extension of PEG site incision for Hemostasis Post-op Diagnosis: same as pre-op Operative Findings: consistent w/pre-op dx studies Surgeon: Thu Anesthesiologist: local provided by surgeon Anesthesia: local Specimen: none Complications: none Condition: stable Fluids: see anesthesia records Estimated Blood Loss: minimal Drains: none Implant(s) used?: No Indications for Procedure 71 F prior PEG placed by GI who is having increased bleeding from PEG incision site on abdominal wall after resuming Heparin gtt for mechanical heart valve. Was at bedside for evaluation of patient as usual for surgical consultation ( acute pancreatitis / Trach) when was informed about bleeding from MD and Staff. Was requested to help obtain hemostasis. Wound evaluated and significant oozing noted from PEG site. family at bedside. patient responsive. Discussed above and explained that I would need to further open the incision to find bleeding to obtain hemostasis. Procedure somewhat urgent given fair amount of bleeding after resuming heparin gtt. Family and patient expressed understanding after risk, benefits, and alternatives discussed. They consented to procedure. Description of Procedure Patient was made comfortable at bedside. wound site cleaned. 1% lido with epi infiltrated. prior PEG site incision extended by 1cm laterally. small superficial arterial bleeding noted at corner as well as small venous bleeding from subcutaneous fat. 0 nylon suture used to close wound for hemostasis. Hemostasis achieved with suture placement. wound cleaned and dressings applied. patient tolerated procedure well. will monitor wound for further bleeding. Potential for bleeding to be from deeper in wound but this was not noted during procedure. If this is the case, may need to go to OR for further evaluation. Rodrigo Andino January 16, 2017 11:53
--- NOTE | 2017-01-16 12:23 | Diagnostic Imaging Report ---
Indication: Dyspnea Comparison: 01/15/17 A single view chest radiograph was obtained. Findings: Bilateral pulmonary vascularity appears increased. Heart is enlarged. Interstitial edema is present. Findings appear unchanged. Tracheostomy again noted. Impression: Pulmonary edema suspected. No change from the previous day
[2017-01-16] MEDS ORDERED: Tubing Blood Filter IV ONE (15:11)
[2017-01-16] MEDS ORDERED: NS 275ml ONE (15:11)
[2017-01-16] MEDS ORDERED: Sterile Water Irrig 1000ml IRRIG ONE (15:11)
--- NOTE | 2017-01-16 19:57 | Cardiology Progress Note ---
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 mitral valve prosthesis on anticoagulation perm afib on anticoagulation with Coumadin coagulopathy now elevated due to med interaction adn disease process leukocytosis ARF intra abd hematomas brbpr anemia s/p transfucion hypernatremia anasarca ischemic colitis bp seem ok cr is normal heparin drip for mechanical mv stopped again today due to reported sever bleeding form the g tube site on low dose bb d/w rn if has recurrent bleeding for the focal segment of ischemic bowel may need to consider resection xray personally reviewed still quite ill will see if ble to keep off heparin for 3 days so far 48 hour has not been adequate s bleed shortrly after heparin is started Subjective ROS Limited/Unobtainable: Yes Subjective on the vent ,s/p trach Objective Last 24 Hour Vital Signs Date Time Temp Pulse Resp B/P Pulse Ox O2 Delivery O2 Flow Rate FiO2 01/16/17 19:00 78 19 152/35 96 Mechanical Ventilator 30 01/16/17 18:50 98 14 30 01/16/17 18:00 68 14 134/52 96 Mechanical Ventilator 30 01/16/17 17:00 81 16 128/44 95 Mechanical Ventilator 30 01/16/17 16:52 88 15 30 01/16/17 16:45 30 01/16/17 16:00 95 01/16/17 16:00 98.2 100 17 155/54 95 Mechanical Ventilator 30 01/16/17 15:59 30 01/16/17 15:18 85 21 30 01/16/17 15:00 86 17 147/58 95 Mechanical Ventilator 30 01/16/17 14:00 85 16 137/57 95 Mechanical Ventilator 30 01/16/17 13:00 30 01/16/17 13:00 89 19 137/47 98 Mechanical Ventilator 30 01/16/17 12:56 86 18 30 01/16/17 12:19 98.4 01/16/17 12:00 98.4 62 20 153/38 98 Mechanical Ventilator 30 01/16/17 12:00 87 01/16/17 11:54 30 01/16/17 11:00 84 19 153/56 98 Mechanical Ventilator 30 01/16/17 10:32 89 20 30 01/16/17 10:30 30 01/16/17 10:00 64 19 158/63 98 Mechanical Ventilator 30 01/16/17 09:17 91 20 30 01/16/17 09:00 83 18 133/46 98 Mechanical Ventilator 30 01/16/17 08:00 79 01/16/17 08:00 99.0 89 23 145/65 97 Mechanical Ventilator 30 01/16/17 08:00 30 01/16/17 08:00 87 121/35 01/16/17 07:13 91 20 30 01/16/17 07:00 30 01/16/17 07:00 84 23 121/35 97 Mechanical Ventilator 30 01/16/17 06:00 81 23 148/59 97 Mechanical Ventilator 30 01/16/17 05:25 67 15 30 01/16/17 05:00 60 22 132/37 97 Mechanical Ventilator 30 01/16/17 04:00 78 01/16/17 04:00 30 01/16/17 04:00 98.9 81 22 171/53 97 Mechanical Ventilator 30 01/16/17 03:34 81 16 30 01/16/17 03:00 85 23 134/52 97 Mechanical Ventilator 30 01/16/17 02:00 82 22 139/54 98 Mechanical Ventilator 30 01/16/17 01:17 92 14 30 01/16/17 01:00 82 22 151/57 98 Mechanical Ventilator 30 01/16/17 00:00 99.1 83 24 138/48 97 Mechanical Ventilator 30 01/16/17 00:00 30 01/16/17 00:00 82 01/15/17 23:13 74 15 30 01/15/17 23:00 82 22 151/51 98 Mechanical Ventilator 30 01/15/17 22:00 78 22 139/54 97 Mechanical Ventilator 30 01/15/17 21:45 81 19 30 01/15/17 21:00 79 19 135/57 97 Mechanical Ventilator 30 01/15/17 20:00 76 01/15/17 20:00 30 01/15/17 20:00 98.3 79 21 153/52 98 Mechanical Ventilator 30 General Appearance: alert, on vent Neck: supple Cardiovascular: irregularly irregular, other - mecahnical Respiratory/Chest: lungs clear - ant Abdomen: non tender, distended Extremities: severe edema Intake and Output 01/15/17 01/16/17 19:00 07:00 Intake Total 1901.316 ml 1229.111 ml Output Total 720 ml 725 ml Balance 1181.316 ml 504.111 ml Free Water 300 ml 100 ml IV Total 1041.316 ml 419.111 ml Tube Feeding 420 ml 420 ml Blood Product 250 ml Other 140 ml 40 ml Output Urine Total 720 ml 725 ml # Bowel Movements 4 8 Laboratory Tests Test 01/15/17 22:45 01/16/17 04:05 Activated Partial Thromboplast Time 81 SEC (23-33) H 122 SEC (23-33) H White Blood Count 18.5 K/UL (4.8-10.8) H Red Blood Count 2.87 M/UL (4.20-5.40) L Hemoglobin 8.8 G/DL (12.0-16.0) L Hematocrit 27.2 % (37.0-47.0) L Mean Corpuscular Volume 95 FL (80-99) Mean Corpuscular Hemoglobin 30.5 PG (27.0-31.0) Mean Corpuscular Hemoglobin Concent 32.2 G/DL (32.0-36.0) Red Cell Distribution Width 15.7 % (11.6-14.8) H Platelet Count 202 K/UL (150-450) Mean Platelet Volume 8.8 FL (6.5-10.1) Neutrophils (%) (Auto) % (45.0-75.0) Lymphocytes (%) (Auto) % (20.0-45.0) Monocytes (%) (Auto) % (1.0-10.0) Eosinophils (%) (Auto) % (0.0-3.0) Basophils (%) (Auto) % (0.0-2.0) Differential Total Cells Counted 100 Neutrophils % (Manual) 86 % (45-75) H Lymphocytes % (Manual) 8 % (20-45) L Monocytes % (Manual) 4 % (1-10) Eosinophils % (Manual) 2 % (0-3) Basophils % (Manual) 0 % (0-2) Band Neutrophils 0 % (0-8) Platelet Estimate Adequate Platelet Morphology Normal Hypochromasia 2+ Anisocytosis 1+ Sodium Level 155 mEQ/L (135-145) H Potassium Level 3.5 mEQ/L (3.4-4.9) Chloride Level 111 mEQ/L (98-107) H Carbon Dioxide Level 38 mEQ/L (20-30) H Anion Gap 6 (5-15) Blood Urea Nitrogen 24 mg/dL (7-23) H Creatinine 0.5 mg/dL (0.5-0.9) Estimat Glomerular Filtration Rate > 60 mL/min (>60) Glucose Level 148 mg/dL (74-106) H Uric Acid 4.5 mg/dL (3.0-7.5) Calcium Level 8.2 mg/dL (8.6-10.2) L Phosphorus Level 2.4 mg/dL (2.5-4.8) L Magnesium Level 2.1 mg/dL (1.7-2.5) Total Bilirubin 0.8 mg/dL (0.0-1.2) Gamma Glutamyl Transpeptidase 195 U/L (5-36) H Aspartate Amino Transf (AST/SGOT) 30 U/L (5-40) Alanine Aminotransferase (ALT/SGPT) 11 U/L (3-33) Alkaline Phosphatase 219 U/L (35-104) H Pro-B-Type Natriuretic Peptide 6636 pg/mL (0-125) H Total Protein 5.9 g/dL (6.6-8.7) L Albumin 2.1 g/dL (3.5-5.2) L Globulin 3.8 g/dL Albumin/Globulin Ratio 0.5 (1.0-2.7) L ANNE RAM January 16, 2017 19:57
--- NOTE | 2017-01-16 22:08 | Infectious Diseases Prog Note ---
Assessment/Plan Assessment/Plan ASSESSMENT: Fever, SP leukocytosis ( probable due to GI bleed, and Ischemic colitis ) Pancreatitis improving CT: Findings compatible with marked worsening of acute pancreatitis MRCP : Cholelithiasis. There is also a calculus within the duct adjacent to the gallbladder Pancreatic Enzymes improving CT of Abd : reviewed cholelithiasis : US of liver : Incidental finding of cholelithiasis and mild gallbladder wall thickening positive sonographic Diaz's sign LFT : Nl UTI : Mandy SCx : Mandy ( colonizer ) SP s/p colonoscopy >> high suspicion for ischemic colitis SP PEG 01/02 VDRF: SP trach 01/01 Cxray : Increase in bilateral congestive changes with persistent small right , probable new left pleural effusions ARF SP aortic stenosis mitral stenosis status post mitral valve replacement AFib Pulmonary hypertension PLAN: - cont on IV Merrem d# 14 / 14 will DC AB Rx in AM ( 01/13 oral Amoxi d# 7 ) ( 01/07 SP Zyvox d#5 and Flagyl d# 4 ) ( 12/28 SP Diflucan d# 10 ) ( 12/24 SP Merrem d# 14 /14 ) - monitor CBC, temperatures, - monitor LFT - GI f/u - Sx is following for possible Cholecystectomy later - VDRF - PRBC transfusion PRN Subjective Allergies: Coded Allergies: No Known Allergies (Unverified , 09/28/14) Subjective on Vent Objective Vital Signs Last 24 Hour Vital Signs Date Time Temp Pulse Resp B/P Pulse Ox O2 Delivery O2 Flow Rate FiO2 01/16/17 22:00 79 16 160/45 98 Mechanical Ventilator 30 01/16/17 21:00 69 15 155/49 97 Mechanical Ventilator 30 01/16/17 20:40 65 14 30 01/16/17 20:00 97.9 60 21 151/51 97 Mechanical Ventilator 30 01/16/17 20:00 68 01/16/17 19:00 78 19 152/35 96 Mechanical Ventilator 30 01/16/17 18:50 98 14 30 01/16/17 18:00 68 14 134/52 96 Mechanical Ventilator 30 01/16/17 17:00 81 16 128/44 95 Mechanical Ventilator 30 01/16/17 16:52 88 15 30 01/16/17 16:45 30 01/16/17 16:00 95 01/16/17 16:00 98.2 100 17 155/54 95 Mechanical Ventilator 30 01/16/17 15:59 30 01/16/17 15:18 85 21 30 01/16/17 15:00 86 17 147/58 95 Mechanical Ventilator 30 01/16/17 14:00 85 16 137/57 95 Mechanical Ventilator 30 01/16/17 13:00 30 01/16/17 13:00 89 19 137/47 98 Mechanical Ventilator 30 01/16/17 12:56 86 18 30 01/16/17 12:19 98.4 01/16/17 12:00 98.4 62 20 153/38 98 Mechanical Ventilator 30 01/16/17 12:00 87 01/16/17 11:54 30 01/16/17 11:00 84 19 153/56 98 Mechanical Ventilator 30 01/16/17 10:32 89 20 30 01/16/17 10:30 30 01/16/17 10:00 64 19 158/63 98 Mechanical Ventilator 30 01/16/17 09:17 91 20 30 01/16/17 09:00 83 18 133/46 98 Mechanical Ventilator 30 01/16/17 08:00 79 01/16/17 08:00 99.0 89 23 145/65 97 Mechanical Ventilator 30 01/16/17 08:00 30 01/16/17 08:00 87 121/35 01/16/17 07:13 91 20 30 01/16/17 07:00 30 01/16/17 07:00 84 23 121/35 97 Mechanical Ventilator 30 01/16/17 06:00 81 23 148/59 97 Mechanical Ventilator 30 01/16/17 05:25 67 15 30 01/16/17 05:00 60 22 132/37 97 Mechanical Ventilator 30 01/16/17 04:00 78 01/16/17 04:00 30 01/16/17 04:00 98.9 81 22 171/53 97 Mechanical Ventilator 30 01/16/17 03:34 81 16 30 01/16/17 03:00 85 23 134/52 97 Mechanical Ventilator 30 01/16/17 02:00 82 22 139/54 98 Mechanical Ventilator 30 01/16/17 01:17 92 14 30 01/16/17 01:00 82 22 151/57 98 Mechanical Ventilator 30 01/16/17 00:00 99.1 83 24 138/48 97 Mechanical Ventilator 30 01/16/17 00:00 30 01/16/17 00:00 82 01/15/17 23:13 74 15 30 01/15/17 23:00 82 22 151/51 98 Mechanical Ventilator 30 Height (Feet): 5 Height (Inches): 1.00 Weight (Pounds): 200 Respiratory/Chest: no respiratory distress Cardiovascular: normal rate Abdomen: no organomegaly Laboratory Tests Test 01/15/17 22:45 01/16/17 04:05 Activated Partial Thromboplast Time 81 SEC (23-33) H 122 SEC (23-33) H White Blood Count 18.5 K/UL (4.8-10.8) H Red Blood Count 2.87 M/UL (4.20-5.40) L Hemoglobin 8.8 G/DL (12.0-16.0) L Hematocrit 27.2 % (37.0-47.0) L Mean Corpuscular Volume 95 FL (80-99) Mean Corpuscular Hemoglobin 30.5 PG (27.0-31.0) Mean Corpuscular Hemoglobin Concent 32.2 G/DL (32.0-36.0) Red Cell Distribution Width 15.7 % (11.6-14.8) H Platelet Count 202 K/UL (150-450) Mean Platelet Volume 8.8 FL (6.5-10.1) Neutrophils (%) (Auto) % (45.0-75.0) Lymphocytes (%) (Auto) % (20.0-45.0) Monocytes (%) (Auto) % (1.0-10.0) Eosinophils (%) (Auto) % (0.0-3.0) Basophils (%) (Auto) % (0.0-2.0) Differential Total Cells Counted 100 Neutrophils % (Manual) 86 % (45-75) H Lymphocytes % (Manual) 8 % (20-45) L Monocytes % (Manual) 4 % (1-10) Eosinophils % (Manual) 2 % (0-3) Basophils % (Manual) 0 % (0-2) Band Neutrophils 0 % (0-8) Platelet Estimate Adequate Platelet Morphology Normal Hypochromasia 2+ Anisocytosis 1+ Sodium Level 155 mEQ/L (135-145) H Potassium Level 3.5 mEQ/L (3.4-4.9) Chloride Level 111 mEQ/L (98-107) H Carbon Dioxide Level 38 mEQ/L (20-30) H Anion Gap 6 (5-15) Blood Urea Nitrogen 24 mg/dL (7-23) H Creatinine 0.5 mg/dL (0.5-0.9) Estimat Glomerular Filtration Rate > 60 mL/min (>60) Glucose Level 148 mg/dL (74-106) H Uric Acid 4.5 mg/dL (3.0-7.5) Calcium Level 8.2 mg/dL (8.6-10.2) L Phosphorus Level 2.4 mg/dL (2.5-4.8) L Magnesium Level 2.1 mg/dL (1.7-2.5) Total Bilirubin 0.8 mg/dL (0.0-1.2) Gamma Glutamyl Transpeptidase 195 U/L (5-36) H Aspartate Amino Transf (AST/SGOT) 30 U/L (5-40) Alanine Aminotransferase (ALT/SGPT) 11 U/L (3-33) Alkaline Phosphatase 219 U/L (35-104) H Pro-B-Type Natriuretic Peptide 6636 pg/mL (0-125) H Total Protein 5.9 g/dL (6.6-8.7) L Albumin 2.1 g/dL (3.5-5.2) L Globulin 3.8 g/dL Albumin/Globulin Ratio 0.5 (1.0-2.7) L Current Medications Medications (Trade) Dose Ordered Sig/Lisbeth Route PRN Reason Start Time Stop Time Status Last Admin Dose Admin Allopurinol (Allopurinol) 300 mg DAILY GT 01/07/17 16:30 02/06/17 16:29 01/16/17 08:00 Atenolol (Tenormin) 25 mg DAILY ORAL 01/11/17 19:45 02/10/17 19:44 01/16/17 08:00 Clonidine HCl (Catapres) 0.1 mg Q6H PRN GT SBP>170 mmHg 01/14/17 14:15 02/13/17 14:14 Dextrose (D5W 1000ml) 1,000 ml @ 75 mls/hr [id number] IV 01/16/17 08:30 02/15/17 08:29 01/16/17 09:24 Dextrose (Dextrose 50%) STAT PRN IV Hypoglycemia 01/16/17 15:15 02/15/17 15:14 Heparin Sodium/ Dextrose 500 ml @ 27.215 mls/ hr adjust per protocol IV 01/16/17 06:30 02/15/17 06:29 01/16/17 06:49 Hydrocortisone (Anusol HC) 1 supp BIDPRN PRN RECTAL Anal discomfort/swelling/bleed 01/01/17 17:00 01/31/17 16:59 Insulin Aspart (NovoLOG) Q6HR SUBQ 01/16/17 18:00 02/15/17 17:59 01/16/17 17:37 Lansoprazole (Prevacid) 30 mg Q12HR GT 01/11/17 21:00 02/10/17 20:59 01/16/17 21:00 Metoclopramide HCl (Reglan) 10 mg Q6H IVP 01/06/17 18:00 02/05/17 17:59 01/16/17 17:37 Morphine Sulfate (Morphine Sulfate) 4 mg Q4H PRN IVP For Pain 01/15/17 07:30 01/22/17 07:29 01/16/17 11:49 Ondansetron HCl (Zofran) 4 mg EVERY 4 HOURS PRN IVP Nausea & Vomiting 01/03/17 07:00 02/02/17 06:59 01/14/17 15:54 Phosphorus 250 mg 250 mg THREE TIMES A DAY ORAL 01/15/17 10:00 02/14/17 09:59 01/16/17 17:37 Temazepam (Restoril) 15 mg HSPRN PRN ORAL Insomnia 01/11/17 21:00 01/18/17 20:59 01/16/17 00:17 OSCAR ANDERSON M.D. January 16, 2017 22:08
--- NOTE | 2017-01-16 23:29 | Consultation ---
DATE OF CONSULTATION: 01/16/2017 TIME: 3 p.m. CONSULTING PHYSICIAN: Lowell Murcia D.O. CHIEF COMPLAINT: Respiratory failure, trach, vent, and sepsis. BRIEF HISTORY: This is a 71-year-old female admitted to [facility] on 12/09/[address] Mishra, under his care. The patient had UTI and sepsis, went into respiratory failure, subsequently was trach vented, currently awaiting transfer to [facility] where I will take over the care. I was asked to evaluate the patient prior to transfer. The patient currently is calm, trach vent, awake in ICU, not talking much. PAST MEDICAL HISTORY: Pancreatitis, respiratory failure, atrial fibrillation, , UTI, pneumonia, sepsis, hypertension, and edema. PAST SURGICAL HISTORY: Trach and G-tube. MEDICATIONS: NovoLog, heparin, , Catapres, morphine sulfate, Restoril, pravastatin, Tenormin, allopurinol, meropenem, Reglan, Zofran, and Anusol. ALLERGIES: Denies. SOCIAL HISTORY: No smoking. No alcohol. No intravenous drug abuse. FAMILY HISTORY: Noncontributory. REVIEW OF SYSTEMS: Unavailable. PHYSICAL EXAMINATION: GENERAL: Awake in bed, trach vent, no complaints. VITAL SIGNS: Temperature is 98 degrees, pulse 86, respirations 17, and blood pressure 147/58. CARDIOVASCULAR: No murmur. LUNGS: Poor air exchange. ABDOMEN: Bowel sounds positive. Soft, nontender and nondistended. EXTREMITIES: No cyanosis or clubbing. There is 1+ to 2+ edema. NEUROLOGIC: The patient moves all extremities, but slightly weak. LABORATORY AND DIAGNOSTIC DATA: White count 18.5, hemoglobin and hematocrit 8.8/27, and platelets 202,000. BMP shows sodium 155, chloride 111, bicarbonate 38, BUN and creatinine 24/0.5 and glucose 148. Urinalysis now with leukocyte esterase repeat on 12/19/2016 is negative. ASSESSMENT: 1. Respiratory failure. 2. Urinary tract infection. 3. Pneumonia. 4. Sepsis. 5. History of pancreatitis. 6. Atrial fibrillation. 7. Edema. 8. Anemia. 9. . 10. Hypertension. PLAN: . Antibiotics per Infectious Disease. Blood pressure and blood sugar control. Dietary followup. Pain control. CBC and BMP in the morning. Pending transfer to [facility] for higher level of care. We will continue to follow the patient there. Lowell Murcia D.O. DR: RAJI JOB#: [id number] CC:
[2017-01-17] VITALS (17 sets, daily range): BP systolic 115–162; BP diastolic 35–73
[2017-01-17] MEDS: Metoclopramide 10mg/2ml Inj IVP SCH ×3 (00:11→11:50)
[2017-01-17] MEDS: NovoLOG Insulin Flexpen SUBQ SCH ×3 (00:12→11:51)
[2017-01-17] MEDS: Morphine Sulfate 4mg/ml Inj IVP PRN ×2 (01:18→10:20)
[2017-01-17 04:53] LABS: MEAN CORPUSCULAR HGB CONC 31.3 G/DL (32.0-36.0); MEAN CORPUSCULAR VOLUME 96 FL (80-99); PLATELET COUNT 168 K/UL (150-450); RED BLOOD COUNT 2.43 M/UL (4.20-5.40); RED CELL DISTRIBUTION WIDTH 16.1 % (11.6-14.8); WHITE BLOOD COUNT 14.6 K/UL (4.8-10.8)
[2017-01-17 05:10] LABS: INR 1.1 (0.9-1.1); PROTHROMBIN TIME 11.7 SEC (9.30-11.50)
[2017-01-17 05:37] LABS: ALANINE AMINOTRANSFERASE 11 U/L (3-33); ALBUMIN/GLOBULIN RATIO 0.5 (1.0-2.7); ANION GAP 3 (5-15); ASPARTATE AMINO TRANSFERASE 24 U/L (5-40); CALCIUM 7.7 mg/dL (8.6-10.2); CARBON DIOXIDE 40 mEQ/L (20-30); CHLORIDE 111 mEQ/L (98-107); CREATININE 0.5 mg/dL (0.5-0.9); GLOMERULAR FILTRATION RATE > 60 mL/min (>60); HEMOLYSIS 0; MAGNESIUM 1.9 mg/dL (1.7-2.5); PHOSPHORUS 2.7 mg/dL (2.5-4.8); POTASSIUM 3.5 mEQ/L (3.4-4.9); SODIUM 154 mEQ/L (135-145); TOTAL PROTEIN 5.4 g/dL (6.6-8.7)
--- NOTE | 2017-01-17 07:41 | Cardiology Progress Note ---
Assessment/Plan Assessment/Plan chf / fluid overload respiratory acidosis pancreattiis s/ bioprosthetic AV replacement 2014 s/p production maintenance mechanic mitral valve prosthesis on anticoagulation perm afib on anticoagulation with Coumadin coagulopathy now elevated due to med interaction adn disease process leukocytosis ARF intra abd hematomas brbpr anemia s/p transfucion hypernatremia anasarca ischemic colitis bp seem ok cr is normal heparin drip for mechanical mv stopped again yes due to reported sever bleeding form the g tube site , bleeding has since stopped on low dose bb d/w rn if has recurrent bleeding for the focal segment of ischemic bowel may need to consider resection / g tube sit bleeding still quite ill will see if able to keep off heparin for 3 days so far recent 48 hour has not been adequate s bleed shortrly after heparin is started gettign prbc tx to day form 1 unti drop yest d/w dtr Subjective Subjective on the vent ,s/p trach Objective Last 24 Hour Vital Signs Date Time Temp Pulse Resp B/P Pulse Ox O2 Delivery O2 Flow Rate FiO2 01/17/17 07:00 85 21 139/56 95 Mechanical Ventilator 30 01/17/17 06:55 83 17 30 01/17/17 06:00 79 15 144/43 97 Mechanical Ventilator 30 01/17/17 05:16 88 15 30 01/17/17 05:00 74 15 143/54 98 Mechanical Ventilator 30 01/17/17 04:00 98.8 71 20 129/73 98 Mechanical Ventilator 30 01/17/17 04:00 78 01/17/17 04:00 30 01/17/17 03:00 80 14 155/35 97 Mechanical Ventilator 30 01/17/17 02:55 72 14 30 01/17/17 02:00 72 16 138/40 98 Mechanical Ventilator 30 01/17/17 01:05 65 14 30 01/17/17 01:00 67 18 126/39 96 Mechanical Ventilator 30 01/17/17 00:00 76 01/17/17 00:00 30 01/17/17 00:00 98.6 81 17 162/47 100 Mechanical Ventilator 30 01/16/17 23:00 82 15 160/56 97 Mechanical Ventilator 30 01/16/17 22:45 84 14 30 01/16/17 22:00 79 16 160/45 98 Mechanical Ventilator 30 01/16/17 21:00 69 15 155/49 97 Mechanical Ventilator 30 01/16/17 20:40 65 14 30 01/16/17 20:00 97.9 60 21 151/51 97 Mechanical Ventilator 30 01/16/17 20:00 30 01/16/17 20:00 68 01/16/17 19:00 78 19 152/35 96 Mechanical Ventilator 30 01/16/17 18:50 98 14 30 01/16/17 18:00 68 14 134/52 96 Mechanical Ventilator 30 01/16/17 17:00 81 16 128/44 95 Mechanical Ventilator 30 01/16/17 16:52 88 15 30 01/16/17 16:45 30 01/16/17 16:00 95 01/16/17 16:00 98.2 100 17 155/54 95 Mechanical Ventilator 30 01/16/17 15:59 30 01/16/17 15:18 85 21 30 01/16/17 15:00 86 17 147/58 95 Mechanical Ventilator 30 01/16/17 14:00 85 16 137/57 95 Mechanical Ventilator 30 01/16/17 13:00 30 01/16/17 13:00 89 19 137/47 98 Mechanical Ventilator 30 01/16/17 12:56 86 18 30 01/16/17 12:19 98.4 01/16/17 12:00 98.4 62 20 153/38 98 Mechanical Ventilator 30 01/16/17 12:00 87 01/16/17 11:54 30 01/16/17 11:00 84 19 153/56 98 Mechanical Ventilator 30 01/16/17 10:32 89 20 30 01/16/17 10:30 30 01/16/17 10:00 64 19 158/63 98 Mechanical Ventilator 30 01/16/17 09:17 91 20 30 01/16/17 09:00 83 18 133/46 98 Mechanical Ventilator 30 01/16/17 08:00 79 01/16/17 08:00 99.0 89 23 145/65 97 Mechanical Ventilator 30 01/16/17 08:00 30 01/16/17 08:00 87 121/35 General Appearance: no apparent distress, alert, on vent Neck: supple Cardiovascular: irregularly irregular, other - mechanical Respiratory/Chest: lungs clear - ant Abdomen: normal bowel sounds, non tender, distended Extremities: severe edema Intake and Output 01/16/17 01/17/17 19:00 07:00 Intake Total 1661.645 ml 1620 ml Output Total 650 ml 405 ml Balance 1011.645 ml 1215 ml Free Water 300 ml 200 ml IV Total 791.645 ml 900 ml Tube Feeding 420 ml 420 ml Other 150 ml 100 ml Output Urine Total 650 ml 405 ml # Bowel Movements 2 Laboratory Tests Test 01/17/17 04:00 White Blood Count 14.6 K/UL (4.8-10.8) H Red Blood Count 2.43 M/UL (4.20-5.40) L Hemoglobin 7.3 G/DL (12.0-16.0) L Hematocrit 23.3 % (37.0-47.0) L Mean Corpuscular Volume 96 FL (80-99) Mean Corpuscular Hemoglobin 30.0 PG (27.0-31.0) Mean Corpuscular Hemoglobin Concent 31.3 G/DL (32.0-36.0) L Red Cell Distribution Width 16.1 % (11.6-14.8) H Platelet Count 168 K/UL (150-450) Mean Platelet Volume 9.0 FL (6.5-10.1) Neutrophils (%) (Auto) % (45.0-75.0) Lymphocytes (%) (Auto) % (20.0-45.0) Monocytes (%) (Auto) % (1.0-10.0) Eosinophils (%) (Auto) % (0.0-3.0) Basophils (%) (Auto) % (0.0-2.0) Neutrophils % (Manual) Pending Lymphocytes % (Manual) Pending Platelet Estimate Pending Platelet Morphology Pending Prothrombin Time 11.7 SEC (9.30-11.50) H Prothromb Time International Ratio 1.1 (0.9-1.1) Activated Partial Thromboplast Time 42 SEC (23-33) H Sodium Level 154 mEQ/L (135-145) H Potassium Level 3.5 mEQ/L (3.4-4.9) Chloride Level 111 mEQ/L (98-107) H Carbon Dioxide Level 40 mEQ/L (20-30) H Anion Gap 3 (5-15) L Blood Urea Nitrogen 23 mg/dL (7-23) Creatinine 0.5 mg/dL (0.5-0.9) Estimat Glomerular Filtration Rate > 60 mL/min (>60) Glucose Level 145 mg/dL (74-106) H Calcium Level 7.7 mg/dL (8.6-10.2) L Phosphorus Level 2.7 mg/dL (2.5-4.8) Magnesium Level 1.9 mg/dL (1.7-2.5) Total Bilirubin 0.7 mg/dL (0.0-1.2) Aspartate Amino Transf (AST/SGOT) 24 U/L (5-40) Alanine Aminotransferase (ALT/SGPT) 11 U/L (3-33) Alkaline Phosphatase 167 U/L (35-104) H Total Protein 5.4 g/dL (6.6-8.7) L Albumin 2.0 g/dL (3.5-5.2) L Globulin 3.4 g/dL Albumin/Globulin Ratio 0.5 (1.0-2.7) L ANNE RAM January 17, 2017 07:41
[2017-01-17 07:43] LABS: BAND NEUTROPHILS % (MANUAL) 3 % (0-8); EOSINOPHILS % (MANUAL) 2 % (0-3); LYMPHOCYTES % (MANUAL) 9 % (20-45); NEUTROPHILS % (MANUAL) 81 % (45-75); TOTAL CELLS COUNTED 100
[2017-01-17 07:44] LABS: BASOPHILS % (MANUAL) 0 % (0-2); PLATELET ESTIMATE ADEQUATE; PLATELET MORPHOLOGY NORMAL
[2017-01-17] MEDS: Atenolol 25mg tab ORAL SCH (08:48)
[2017-01-17] MEDS: Phospha 250 Neutral tab ORAL SCH ×2 (08:48→12:58)
--- NOTE | 2017-01-17 09:19 | General Progress Note ---
Progress Note Progress Note Surgery: patient seen and examined at bedside. bleeding from g tube site yesterday required wound exploration and suture hemostasis. currently off heparin gtt and no bleeding. no bloody bm's recently. okay to resume heparin gtt from surgical standpoint. if significant bleeding from g tube site again will need further investigation as source may be deeper in wound and would require surgical intervention. ischemic colitis noted on recent colonoscopy and concerning. fortunately no recent episodes of melena and having normal bm's. likely mucosal ischemia and not transmural. will continue to monitor. Rodrigo Andino January 17, 2017 09:19
[2017-01-17] MEDS ORDERED: Heparin 5000 units/ml inj IV ONE (10:00)
[2017-01-17] MEDS ORDERED: Heparin 25,000u/D5W 500ml 500 ML IV SCH (10:00)
--- NOTE | 2017-01-17 10:03 | Pulmonolgy Critical Care Note ---
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 Renal: F/U I&O, keep IV fluid, increase IV fluid Infectious Disease: check cultures, continue antibiotics Gastrointestinal: continue feedings/current rate Endocrine: monitor blood sugar, continue sliding scale insulin Hematologic: monitor H/H, transfuse if hgb<8.5 Neurologic: PRN Morphine, keep patient comfortable Affect: PRN ativan Prophylaxis: Protonix Notes Reviewed: senior hr generalist, cardio Discussed with: nurses, consultants, employment evaluator/case manageradministrative manager - Objective Last 24 Hour Vital Signs Date Time Temp Pulse Resp B/P Pulse Ox O2 Delivery O2 Flow Rate FiO2 01/17/17 09:00 99.0 87 19 160/66 94 Mechanical Ventilator 30 01/17/17 08:50 97 01/17/17 08:50 93 22 30 01/17/17 08:48 87 149/42 01/17/17 08:00 99.4 88 22 149/42 99 Mechanical Ventilator 30 01/17/17 08:00 88 01/17/17 08:00 30 01/17/17 07:00 85 21 139/56 95 Mechanical Ventilator 30 01/17/17 06:55 83 17 30 01/17/17 06:00 79 15 144/43 97 Mechanical Ventilator 30 01/17/17 05:16 88 15 30 01/17/17 05:00 74 15 143/54 98 Mechanical Ventilator 30 01/17/17 04:00 98.8 71 20 129/73 98 Mechanical Ventilator 30 01/17/17 04:00 78 01/17/17 04:00 30 01/17/17 03:00 80 14 155/35 97 Mechanical Ventilator 30 01/17/17 02:55 72 14 30 01/17/17 02:00 72 16 138/40 98 Mechanical Ventilator 30 01/17/17 01:05 65 14 30 01/17/17 01:00 67 18 126/39 96 Mechanical Ventilator 30 01/17/17 00:00 76 01/17/17 00:00 30 01/17/17 00:00 98.6 81 17 162/47 100 Mechanical Ventilator 30 01/16/17 23:00 82 15 160/56 97 Mechanical Ventilator 30 01/16/17 22:45 84 14 30 01/16/17 22:00 79 16 160/45 98 Mechanical Ventilator 30 01/16/17 21:00 69 15 155/49 97 Mechanical Ventilator 30 01/16/17 20:40 65 14 30 01/16/17 20:00 97.9 60 21 151/51 97 Mechanical Ventilator 30 01/16/17 20:00 30 01/16/17 20:00 68 01/16/17 19:00 78 19 152/35 96 Mechanical Ventilator 30 01/16/17 18:50 98 14 30 01/16/17 18:00 68 14 134/52 96 Mechanical Ventilator 30 01/16/17 17:00 81 16 128/44 95 Mechanical Ventilator 30 01/16/17 16:52 88 15 30 01/16/17 16:45 30 01/16/17 16:00 95 01/16/17 16:00 98.2 100 17 155/54 95 Mechanical Ventilator 30 01/16/17 15:59 30 01/16/17 15:18 85 21 30 01/16/17 15:00 86 17 147/58 95 Mechanical Ventilator 30 01/16/17 14:00 85 16 137/57 95 Mechanical Ventilator 30 01/16/17 13:00 30 01/16/17 13:00 89 19 137/47 98 Mechanical Ventilator 30 01/16/17 12:56 86 18 30 01/16/17 12:19 98.4 01/16/17 12:00 98.4 62 20 153/38 98 Mechanical Ventilator 30 01/16/17 12:00 87 01/16/17 11:54 30 01/16/17 11:00 84 19 153/56 98 Mechanical Ventilator 30 01/16/17 10:32 89 20 30 01/16/17 10:30 30 Status: awake Condition: critical, grave Neck: full ROM Lungs: clear, chest wall tender Heart: HR/BP stable, HR/BP unstable, regular Abdomen: non-tender, active bowel sounds, feeding tube Extremities: edema Decubiti: location, stage Accucheck: 169 Critical Care - Subjective ROS Limited/Unobtainable: Yes ICU Day: awake, comfortable Condition: critical, improving FI02: 30 Vent Support Breath Rate: 10 Vent Support Mode: IMV/SIMV Vent Tidal Volume: 500 Sputum Amount: Small PEEP: 5.0 PIP: 45 Tube Feeding Amount: 35 I&O: Intake and Output 01/16/17 01/17/17 19:00 07:00 Intake Total 1661.645 ml 1620 ml Output Total 650 ml 405 ml Balance 1011.645 ml 1215 ml Free Water 300 ml 200 ml IV Total 791.645 ml 900 ml Tube Feeding 420 ml 420 ml Other 150 ml 100 ml Output Urine Total 650 ml 405 ml # Bowel Movements 2 CXR: no change ET Position: 22 Labs: Laboratory Tests Test 01/17/17 04:00 White Blood Count 14.6 K/UL (4.8-10.8) H Red Blood Count 2.43 M/UL (4.20-5.40) L Hemoglobin 7.3 G/DL (12.0-16.0) L Hematocrit 23.3 % (37.0-47.0) L Mean Corpuscular Volume 96 FL (80-99) Mean Corpuscular Hemoglobin 30.0 PG (27.0-31.0) Mean Corpuscular Hemoglobin Concent 31.3 G/DL (32.0-36.0) L Red Cell Distribution Width 16.1 % (11.6-14.8) H Platelet Count 168 K/UL (150-450) Mean Platelet Volume 9.0 FL (6.5-10.1) Neutrophils (%) (Auto) % (45.0-75.0) Lymphocytes (%) (Auto) % (20.0-45.0) Monocytes (%) (Auto) % (1.0-10.0) Eosinophils (%) (Auto) % (0.0-3.0) Basophils (%) (Auto) % (0.0-2.0) Differential Total Cells Counted 100 Neutrophils % (Manual) 81 % (45-75) H Lymphocytes % (Manual) 9 % (20-45) L Monocytes % (Manual) 5 % (1-10) Eosinophils % (Manual) 2 % (0-3) Basophils % (Manual) 0 % (0-2) Band Neutrophils 3 % (0-8) Platelet Estimate Adequate Platelet Morphology Normal Red Blood Cell Morphology Normal Prothrombin Time 11.7 SEC (9.30-11.50) H Prothromb Time International Ratio 1.1 (0.9-1.1) Activated Partial Thromboplast Time 42 SEC (23-33) H Sodium Level 154 mEQ/L (135-145) H Potassium Level 3.5 mEQ/L (3.4-4.9) Chloride Level 111 mEQ/L (98-107) H Carbon Dioxide Level 40 mEQ/L (20-30) H Anion Gap 3 (5-15) L Blood Urea Nitrogen 23 mg/dL (7-23) Creatinine 0.5 mg/dL (0.5-0.9) Estimat Glomerular Filtration Rate > 60 mL/min (>60) Glucose Level 145 mg/dL (74-106) H Calcium Level 7.7 mg/dL (8.6-10.2) L Phosphorus Level 2.7 mg/dL (2.5-4.8) Magnesium Level 1.9 mg/dL (1.7-2.5) Total Bilirubin 0.7 mg/dL (0.0-1.2) Aspartate Amino Transf (AST/SGOT) 24 U/L (5-40) Alanine Aminotransferase (ALT/SGPT) 11 U/L (3-33) Alkaline Phosphatase 167 U/L (35-104) H Total Protein 5.4 g/dL (6.6-8.7) L Albumin 2.0 g/dL (3.5-5.2) L Globulin 3.4 g/dL Albumin/Globulin Ratio 0.5 (1.0-2.7) L TONY BRIDGES January 17, 2017 10:02
--- NOTE | 2017-01-17 10:18 | GI Progress Note ---
Assessment/Plan Problems: (1) Pancreatitis ICD Codes: K85.9 - Acute pancreatitis, unspecified SNOMED: 55568701 Qualifiers: Qualified Codes: K85.10 - Biliary acute pancreatitis without necrosis or infection (2) Abdominal pain ICD Codes: R10.9 - Unspecified abdominal pain SNOMED: 09061200, 743211695 (3) Iron deficiency anemia ICD Codes: D50.9 - Iron deficiency anemia, unspecified SNOMED: 45696048 (4) Colon polyp ICD Codes: K63.5 - Polyp of colon SNOMED: 25885086 (5) Ischemic colitis ICD Codes: K55.9 - Vascular disorder of intestine, unspecified SNOMED: 83940396 Status: stable, unchanged Status Narrative Discussed with Dr. Gipson. Assessment/Plan KUB reviewed for right sided abdominal distension >> Minimal distention of mid small bowel loops. >> still distended. Pancreatitis cholelithiasis, no e/o choledocholithiasis rising WBC S/P trach APCT reviewed>> 6 cm mass in the left paracolic gutter 01/04/17 cdiff negative OB stool positive s/p PEG s/p colonoscopy >> high suspicion for ischemic colitis, fu biopsy GTFs per dietary, tolerating monitor H&H, transfuse prn reglan ATC GT site care >> GT site bleed >> s/p surgical revision, see note. ppi BID abx follow labs supportive care Subjective Subjective limited Objective Last 24 Hour Vital Signs Date Time Temp Pulse Resp B/P Pulse Ox O2 Delivery O2 Flow Rate FiO2 01/17/17 10:00 76 21 116/55 94 Mechanical Ventilator 30 01/17/17 09:00 99.0 87 19 160/66 94 Mechanical Ventilator 30 01/17/17 08:50 97 01/17/17 08:50 93 22 30 01/17/17 08:48 87 149/42 01/17/17 08:00 99.4 88 22 149/42 99 Mechanical Ventilator 30 01/17/17 08:00 88 01/17/17 08:00 30 01/17/17 07:00 85 21 139/56 95 Mechanical Ventilator 30 01/17/17 06:55 83 17 30 01/17/17 06:00 79 15 144/43 97 Mechanical Ventilator 30 01/17/17 05:16 88 15 30 01/17/17 05:00 74 15 143/54 98 Mechanical Ventilator 30 01/17/17 04:00 98.8 71 20 129/73 98 Mechanical Ventilator 30 01/17/17 04:00 78 01/17/17 04:00 30 01/17/17 03:00 80 14 155/35 97 Mechanical Ventilator 30 01/17/17 02:55 72 14 30 01/17/17 02:00 72 16 138/40 98 Mechanical Ventilator 30 01/17/17 01:05 65 14 30 01/17/17 01:00 67 18 126/39 96 Mechanical Ventilator 30 01/17/17 00:00 76 01/17/17 00:00 30 01/17/17 00:00 98.6 81 17 162/47 100 Mechanical Ventilator 30 01/16/17 23:00 82 15 160/56 97 Mechanical Ventilator 30 01/16/17 22:45 84 14 30 01/16/17 22:00 79 16 160/45 98 Mechanical Ventilator 30 01/16/17 21:00 69 15 155/49 97 Mechanical Ventilator 30 01/16/17 20:40 65 14 30 01/16/17 20:00 97.9 60 21 151/51 97 Mechanical Ventilator 30 01/16/17 20:00 30 01/16/17 20:00 68 01/16/17 19:00 78 19 152/35 96 Mechanical Ventilator 30 01/16/17 18:50 98 14 30 01/16/17 18:00 68 14 134/52 96 Mechanical Ventilator 30 01/16/17 17:00 81 16 128/44 95 Mechanical Ventilator 30 01/16/17 16:52 88 15 30 01/16/17 16:45 30 01/16/17 16:00 95 01/16/17 16:00 98.2 100 17 155/54 95 Mechanical Ventilator 30 01/16/17 15:59 30 01/16/17 15:18 85 21 30 01/16/17 15:00 86 17 147/58 95 Mechanical Ventilator 30 01/16/17 14:00 85 16 137/57 95 Mechanical Ventilator 30 01/16/17 13:00 30 01/16/17 13:00 89 19 137/47 98 Mechanical Ventilator 30 01/16/17 12:56 86 18 30 01/16/17 12:19 98.4 01/16/17 12:00 98.4 62 20 153/38 98 Mechanical Ventilator 30 01/16/17 12:00 87 01/16/17 11:54 30 01/16/17 11:00 84 19 153/56 98 Mechanical Ventilator 30 01/16/17 10:32 89 20 30 01/16/17 10:30 30 Intake and Output 01/16/17 01/17/17 19:00 07:00 Intake Total 1661.645 ml 1620 ml Output Total 650 ml 405 ml Balance 1011.645 ml 1215 ml Free Water 300 ml 200 ml IV Total 791.645 ml 900 ml Tube Feeding 420 ml 420 ml Other 150 ml 100 ml Output Urine Total 650 ml 405 ml # Bowel Movements 2 Laboratory Tests Test 01/17/17 04:00 White Blood Count 14.6 K/UL (4.8-10.8) H Red Blood Count 2.43 M/UL (4.20-5.40) L Hemoglobin 7.3 G/DL (12.0-16.0) L Hematocrit 23.3 % (37.0-47.0) L Mean Corpuscular Volume 96 FL (80-99) Mean Corpuscular Hemoglobin 30.0 PG (27.0-31.0) Mean Corpuscular Hemoglobin Concent 31.3 G/DL (32.0-36.0) L Red Cell Distribution Width 16.1 % (11.6-14.8) H Platelet Count 168 K/UL (150-450) Mean Platelet Volume 9.0 FL (6.5-10.1) Neutrophils (%) (Auto) % (45.0-75.0) Lymphocytes (%) (Auto) % (20.0-45.0) Monocytes (%) (Auto) % (1.0-10.0) Eosinophils (%) (Auto) % (0.0-3.0) Basophils (%) (Auto) % (0.0-2.0) Differential Total Cells Counted 100 Neutrophils % (Manual) 81 % (45-75) H Lymphocytes % (Manual) 9 % (20-45) L Monocytes % (Manual) 5 % (1-10) Eosinophils % (Manual) 2 % (0-3) Basophils % (Manual) 0 % (0-2) Band Neutrophils 3 % (0-8) Platelet Estimate Adequate Platelet Morphology Normal Red Blood Cell Morphology Normal Prothrombin Time 11.7 SEC (9.30-11.50) H Prothromb Time International Ratio 1.1 (0.9-1.1) Activated Partial Thromboplast Time 42 SEC (23-33) H Sodium Level 154 mEQ/L (135-145) H Potassium Level 3.5 mEQ/L (3.4-4.9) Chloride Level 111 mEQ/L (98-107) H Carbon Dioxide Level 40 mEQ/L (20-30) H Anion Gap 3 (5-15) L Blood Urea Nitrogen 23 mg/dL (7-23) Creatinine 0.5 mg/dL (0.5-0.9) Estimat Glomerular Filtration Rate > 60 mL/min (>60) Glucose Level 145 mg/dL (74-106) H Calcium Level 7.7 mg/dL (8.6-10.2) L Phosphorus Level 2.7 mg/dL (2.5-4.8) Magnesium Level 1.9 mg/dL (1.7-2.5) Total Bilirubin 0.7 mg/dL (0.0-1.2) Aspartate Amino Transf (AST/SGOT) 24 U/L (5-40) Alanine Aminotransferase (ALT/SGPT) 11 U/L (3-33) Alkaline Phosphatase 167 U/L (35-104) H Total Protein 5.4 g/dL (6.6-8.7) L Albumin 2.0 g/dL (3.5-5.2) L Globulin 3.4 g/dL Albumin/Globulin Ratio 0.5 (1.0-2.7) L Height (Feet): 5 Height (Inches): 1.00 Weight (Pounds): 200 General Appearance: no apparent distress, alert Cardiovascular: normal rate Respiratory/Chest: other - mech vent Abdominal Exam: GT site - GT site bleeding Objective Service Date: 12/11/16 Procedure: MRI Abdomen no Contrast Indication: Abdominal pain, possible pancreatitis Findings: Multiple calcifications are seen within the gallbladder. There is a ductal structure cephalad to the gallbladder which contains a filling defect. This is probably the cystic duct, but could be an extrahepatic bile duct, and it is uncertain which of these is. The gallbladder wall is not thickened. The extrahepatic bile ducts are ectatic, with the common bile duct measuring up to 9 mm diameter , but no downstream filling defects are demonstrated. The common bile duct terminates abruptly at the level of the ampulla. The pancreatic duct is mildly ectatic, measuring 3-4 mm in diameter. No intraluminal filling defects are demonstrated. A 7 mm fluid signal lesion is seen within the uncinate process of the pancreas. This may actually be a duodenal diverticulum which is seen on the recent CT scan. There is apparent swelling of the pancreas and considerable free intraperitoneal fluid. No free intraperitoneal fluid presumably increased from the prior CT scan. There are dilated small bowel loops, likely indicating ileus. The liver is unremarkable. The adrenals and kidneys are unremarkable. There are bilateral small pleural effusions. The spleen is unremarkable. The heart is enlarged Impression: Cholelithiasis. There is also a calculus within the duct adjacent to the gallbladder which is probably the cystic duct but could be an extrahepatic bile duct. Extrahepatic and central intrahepatic biliary ductal mild dilatation. No definite downstream calculus or pancreatic head mass to account for this, however. Prominence and edema of the pancreas, better visualized on prior CT scan, consistent with acute pancreatitis, also previously described Ascites fluid, increased from the prior CT scan, likely secondary to the acute pancreatitis Dilated small bowel loops, new since prior CT study. Suspect representing ileus related to the pancreatitis Bilateral small pleural effusions Small cystic lesion within the as a process. Suspect that this is actually the duodenal diverticulum described on recent CT scan, but could represent a tiny pseudocyst or intraductal papillary mucinous neoplasm. Cardiomegaly Lulu Dominguez N.P. January 17, 2017 10:18
--- NOTE | 2017-01-17 10:56 | General Progress Note ---
Assessment/Plan Status: stable - stable renal parameters, unchanged Status Narrative Hgb lower - had GI bleed again ! 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 on anticoagulation Pulmonary HTN HypoAlbuminemia ARDS Plan: One more liter of D5w for high Na Transfusion as needed per PMD On allopurinol K & Phos supplement as needed reglan IV DC Hydrocortisone IV Fluid challenge Keep bp above 100 syst by adjusting BP meds Optimize cardiac status Adjust pulmonary status- Per GI / Surgery Avoid nephrotoxics monitor renal parameters Subjective ROS Limited/Unobtainable: Yes Allergies: Coded Allergies: No Known Allergies (Unverified , 09/28/14) Objective Last 24 Hour Vital Signs Date Time Temp Pulse Resp B/P Pulse Ox O2 Delivery O2 Flow Rate FiO2 01/17/17 10:35 72 18 30 01/17/17 10:00 76 21 116/55 94 Mechanical Ventilator 30 01/17/17 09:00 99.0 87 19 160/66 94 Mechanical Ventilator 30 01/17/17 08:50 97 01/17/17 08:50 93 22 30 01/17/17 08:48 87 149/42 01/17/17 08:00 99.4 88 22 149/42 99 Mechanical Ventilator 30 01/17/17 08:00 88 01/17/17 08:00 30 01/17/17 07:00 85 21 139/56 95 Mechanical Ventilator 30 01/17/17 06:55 83 17 30 01/17/17 06:00 79 15 144/43 97 Mechanical Ventilator 30 01/17/17 05:16 88 15 30 01/17/17 05:00 74 15 143/54 98 Mechanical Ventilator 30 01/17/17 04:00 98.8 71 20 129/73 98 Mechanical Ventilator 30 01/17/17 04:00 78 01/17/17 04:00 30 01/17/17 03:00 80 14 155/35 97 Mechanical Ventilator 30 01/17/17 02:55 72 14 30 01/17/17 02:00 72 16 138/40 98 Mechanical Ventilator 30 01/17/17 01:05 65 14 30 01/17/17 01:00 67 18 126/39 96 Mechanical Ventilator 30 01/17/17 00:00 76 01/17/17 00:00 30 01/17/17 00:00 98.6 81 17 162/47 100 Mechanical Ventilator 30 01/16/17 23:00 82 15 160/56 97 Mechanical Ventilator 30 01/16/17 22:45 84 14 30 01/16/17 22:00 79 16 160/45 98 Mechanical Ventilator 30 01/16/17 21:00 69 15 155/49 97 Mechanical Ventilator 30 01/16/17 20:40 65 14 30 01/16/17 20:00 97.9 60 21 151/51 97 Mechanical Ventilator 30 01/16/17 20:00 30 01/16/17 20:00 68 01/16/17 19:00 78 19 152/35 96 Mechanical Ventilator 30 01/16/17 18:50 98 14 30 01/16/17 18:00 68 14 134/52 96 Mechanical Ventilator 30 01/16/17 17:00 81 16 128/44 95 Mechanical Ventilator 30 01/16/17 16:52 88 15 30 01/16/17 16:45 30 01/16/17 16:00 95 01/16/17 16:00 98.2 100 17 155/54 95 Mechanical Ventilator 30 01/16/17 15:59 30 01/16/17 15:18 85 21 30 01/16/17 15:00 86 17 147/58 95 Mechanical Ventilator 30 01/16/17 14:00 85 16 137/57 95 Mechanical Ventilator 30 01/16/17 13:00 30 01/16/17 13:00 89 19 137/47 98 Mechanical Ventilator 30 01/16/17 12:56 86 18 30 01/16/17 12:19 98.4 01/16/17 12:00 98.4 62 20 153/38 98 Mechanical Ventilator 30 01/16/17 12:00 87 01/16/17 11:54 30 01/16/17 11:00 84 19 153/56 98 Mechanical Ventilator 30 Intake and Output 01/16/17 01/17/17 19:00 07:00 Intake Total 1661.645 ml 1620 ml Output Total 650 ml 405 ml Balance 1011.645 ml 1215 ml Free Water 300 ml 200 ml IV Total 791.645 ml 900 ml Tube Feeding 420 ml 420 ml Other 150 ml 100 ml Output Urine Total 650 ml 405 ml # Bowel Movements 2 Laboratory Tests 01/17/17 04:00: White Blood Count 14.6H, Red Blood Count 2.43L, Hemoglobin 7.3L, Hematocrit 23.3L, Mean Corpuscular Volume 96, Mean Corpuscular Hemoglobin 30.0, Mean Corpuscular Hemoglobin Concent 31.3L, Red Cell Distribution Width 16.1H, Platelet Count 168, Mean Platelet Volume 9.0, Neutrophils (%) (Auto) , Lymphocytes (%) (Auto) , Monocytes (%) (Auto) , Eosinophils (%) (Auto) , Basophils (%) (Auto) , Differential Total Cells Counted 100, Neutrophils % ( Manual) 81H, Lymphocytes % (Manual) 9L, Monocytes % (Manual) 5, Eosinophils % ( Manual) 2, Basophils % (Manual) 0, Band Neutrophils 3, Platelet Estimate Adequate, Platelet Morphology Normal, Red Blood Cell Morphology Normal, Prothrombin Time 11.7H, Prothromb Time International Ratio 1.1, Activated Partial Thromboplast Time 42H, Sodium Level 154H, Potassium Level 3.5, Chloride Level 111H, Carbon Dioxide Level 40H, Anion Gap 3L, Blood Urea Nitrogen 23, Creatinine 0.5, Estimat Glomerular Filtration Rate > 60, Glucose Level 145H, Calcium Level 7.7L, Phosphorus Level 2.7, Magnesium Level 1.9, Total Bilirubin 0.7, Aspartate Amino Transf (AST/SGOT) 24, Alanine Aminotransferase (ALT/SGPT) 11, Alkaline Phosphatase 167H, Total Protein 5.4L, Albumin 2.0L, Globulin 3.4, Albumin/Globulin Ratio 0.5L Height (Feet): 5 Height (Inches): 1.00 Weight (Pounds): 200 General Appearance: no apparent distress, lethargic Cardiovascular: regular rhythm Respiratory/Chest: decreased breath sounds Abdomen: distended Objective other PE not changed KAMINI SNOW January 17, 2017 10:56
--- NOTE | 2017-01-17 13:04 | Infectious Diseases Prog Note ---
Assessment/Plan Assessment/Plan ASSESSMENT: Fever, SP leukocytosis ( probable due to GI bleed, and Ischemic colitis ) Pancreatitis improving CT: Findings compatible with marked worsening of acute pancreatitis MRCP : Cholelithiasis. There is also a calculus within the duct adjacent to the gallbladder Pancreatic Enzymes improving CT of Abd : reviewed cholelithiasis : US of liver : Incidental finding of cholelithiasis and mild gallbladder wall thickening positive sonographic Diaz's sign LFT : Nl UTI : Mandy SCx : Mandy ( colonizer ) SP s/p colonoscopy >> high suspicion for ischemic colitis SP PEG 01/02 VDRF: SP trach 01/01 Cxray : Increase in bilateral congestive changes with persistent small right , probable new left pleural effusions ARF SP aortic stenosis mitral stenosis status post mitral valve replacement AFib Pulmonary hypertension PLAN: DC on IV Merrem d# 14 / 14 , monitor pt off of AB Rx ( 01/13 oral Amoxi d# 7 ) ( 01/07 SP Zyvox d#5 and Flagyl d# 4 ) ( 12/28 SP Diflucan d# 10 ) ( 12/24 SP Merrem d# 14 /14 ) - monitor CBC, temperatures, - monitor LFT - GI f/u - Sx is following for possible Cholecystectomy later - VDRF - PRBC transfusion PRN Subjective Constitutional: Denies: anorexia, chills, drenching sweats, fatigue, fever, no symptoms, other Allergies: Coded Allergies: No Known Allergies (Unverified , 09/28/14) Subjective on Vent Objective Vital Signs Last 24 Hour Vital Signs Date Time Temp Pulse Resp B/P Pulse Ox O2 Delivery O2 Flow Rate FiO2 01/17/17 12:00 30 01/17/17 12:00 99.2 78 18 145/57 93 Mechanical Ventilator 30 01/17/17 12:00 90 01/17/17 11:00 83 21 162/65 92 Mechanical Ventilator 30 01/17/17 10:35 72 18 30 01/17/17 10:00 76 21 116/55 94 Mechanical Ventilator 30 01/17/17 09:00 99.0 87 19 160/66 94 Mechanical Ventilator 30 01/17/17 08:50 97 01/17/17 08:50 93 22 30 01/17/17 08:48 87 149/42 01/17/17 08:00 99.4 88 22 149/42 99 Mechanical Ventilator 30 01/17/17 08:00 88 01/17/17 08:00 30 01/17/17 07:00 85 21 139/56 95 Mechanical Ventilator 30 01/17/17 06:55 83 17 30 01/17/17 06:00 79 15 144/43 97 Mechanical Ventilator 30 01/17/17 05:16 88 15 30 01/17/17 05:00 74 15 143/54 98 Mechanical Ventilator 30 01/17/17 04:00 98.8 71 20 129/73 98 Mechanical Ventilator 30 01/17/17 04:00 78 01/17/17 04:00 30 01/17/17 03:00 80 14 155/35 97 Mechanical Ventilator 30 01/17/17 02:55 72 14 30 01/17/17 02:00 72 16 138/40 98 Mechanical Ventilator 30 01/17/17 01:05 65 14 30 01/17/17 01:00 67 18 126/39 96 Mechanical Ventilator 30 01/17/17 00:00 76 01/17/17 00:00 30 01/17/17 00:00 98.6 81 17 162/47 100 Mechanical Ventilator 30 01/16/17 23:00 82 15 160/56 97 Mechanical Ventilator 30 01/16/17 22:45 84 14 30 01/16/17 22:00 79 16 160/45 98 Mechanical Ventilator 30 01/16/17 21:00 69 15 155/49 97 Mechanical Ventilator 30 01/16/17 20:40 65 14 30 01/16/17 20:00 97.9 60 21 151/51 97 Mechanical Ventilator 30 01/16/17 20:00 30 01/16/17 20:00 68 01/16/17 19:00 78 19 152/35 96 Mechanical Ventilator 30 01/16/17 18:50 98 14 30 01/16/17 18:00 68 14 134/52 96 Mechanical Ventilator 30 01/16/17 17:00 81 16 128/44 95 Mechanical Ventilator 30 01/16/17 16:52 88 15 30 01/16/17 16:45 30 01/16/17 16:00 95 01/16/17 16:00 98.2 100 17 155/54 95 Mechanical Ventilator 30 01/16/17 15:59 30 01/16/17 15:18 85 21 30 01/16/17 15:00 86 17 147/58 95 Mechanical Ventilator 30 01/16/17 14:00 85 16 137/57 95 Mechanical Ventilator 30 Height (Feet): 5 Height (Inches): 1.00 Weight (Pounds): 200 HEENT: mucous membranes moist Respiratory/Chest: no accessory muscle use Cardiovascular: regularly irregular Abdomen: no organomegaly Laboratory Tests Test 01/17/17 04:00 White Blood Count 14.6 K/UL (4.8-10.8) H Red Blood Count 2.43 M/UL (4.20-5.40) L Hemoglobin 7.3 G/DL (12.0-16.0) L Hematocrit 23.3 % (37.0-47.0) L Mean Corpuscular Volume 96 FL (80-99) Mean Corpuscular Hemoglobin 30.0 PG (27.0-31.0) Mean Corpuscular Hemoglobin Concent 31.3 G/DL (32.0-36.0) L Red Cell Distribution Width 16.1 % (11.6-14.8) H Platelet Count 168 K/UL (150-450) Mean Platelet Volume 9.0 FL (6.5-10.1) Neutrophils (%) (Auto) % (45.0-75.0) Lymphocytes (%) (Auto) % (20.0-45.0) Monocytes (%) (Auto) % (1.0-10.0) Eosinophils (%) (Auto) % (0.0-3.0) Basophils (%) (Auto) % (0.0-2.0) Differential Total Cells Counted 100 Neutrophils % (Manual) 81 % (45-75) H Lymphocytes % (Manual) 9 % (20-45) L Monocytes % (Manual) 5 % (1-10) Eosinophils % (Manual) 2 % (0-3) Basophils % (Manual) 0 % (0-2) Band Neutrophils 3 % (0-8) Platelet Estimate Adequate Platelet Morphology Normal Red Blood Cell Morphology Normal Prothrombin Time 11.7 SEC (9.30-11.50) H Prothromb Time International Ratio 1.1 (0.9-1.1) Activated Partial Thromboplast Time 42 SEC (23-33) H Sodium Level 154 mEQ/L (135-145) H Potassium Level 3.5 mEQ/L (3.4-4.9) Chloride Level 111 mEQ/L (98-107) H Carbon Dioxide Level 40 mEQ/L (20-30) H Anion Gap 3 (5-15) L Blood Urea Nitrogen 23 mg/dL (7-23) Creatinine 0.5 mg/dL (0.5-0.9) Estimat Glomerular Filtration Rate > 60 mL/min (>60) Glucose Level 145 mg/dL (74-106) H Calcium Level 7.7 mg/dL (8.6-10.2) L Phosphorus Level 2.7 mg/dL (2.5-4.8) Magnesium Level 1.9 mg/dL (1.7-2.5) Total Bilirubin 0.7 mg/dL (0.0-1.2) Aspartate Amino Transf (AST/SGOT) 24 U/L (5-40) Alanine Aminotransferase (ALT/SGPT) 11 U/L (3-33) Alkaline Phosphatase 167 U/L (35-104) H Total Protein 5.4 g/dL (6.6-8.7) L Albumin 2.0 g/dL (3.5-5.2) L Globulin 3.4 g/dL Albumin/Globulin Ratio 0.5 (1.0-2.7) L Current Medications Medications (Trade) Dose Ordered Sig/Lisbeth Route PRN Reason Start Time Stop Time Status Last Admin Dose Admin Allopurinol (Allopurinol) 300 mg DAILY GT 01/07/17 16:30 02/06/17 16:29 01/17/17 08:48 Atenolol (Tenormin) 25 mg DAILY ORAL 01/11/17 19:45 02/10/17 19:44 01/17/17 08:48 Clonidine HCl (Catapres) 0.1 mg Q6H PRN GT SBP>170 mmHg 01/14/17 14:15 02/13/17 14:14 Dextrose (D5W 1000ml) 1,000 ml @ 75 mls/hr [id number] IV 01/16/17 08:30 02/15/17 08:29 01/17/17 11:50 Dextrose (Dextrose 50%) STAT PRN IV Hypoglycemia 01/16/17 15:15 02/15/17 15:14 Hydrocortisone (Anusol HC) 1 supp BIDPRN PRN RECTAL Anal discomfort/swelling/bleed 01/01/17 17:00 01/31/17 16:59 Insulin Aspart (NovoLOG) Q6HR SUBQ 01/16/17 18:00 02/15/17 17:59 01/17/17 11:51 Lansoprazole (Prevacid) 30 mg Q12HR GT 01/11/17 21:00 02/10/17 20:59 01/17/17 08:48 Metoclopramide HCl (Reglan) 10 mg Q6H IVP 01/06/17 18:00 02/05/17 17:59 01/17/17 11:50 Morphine Sulfate (Morphine Sulfate) 4 mg Q4H PRN IVP For Pain 01/15/17 07:30 01/22/17 07:29 01/17/17 10:20 Ondansetron HCl (Zofran) 4 mg EVERY 4 HOURS PRN IVP Nausea & Vomiting 01/03/17 07:00 02/02/17 06:59 01/14/17 15:54 Phosphorus 250 mg 250 mg THREE TIMES A DAY ORAL 01/15/17 10:00 02/14/17 09:59 01/17/17 12:58 Temazepam (Restoril) 15 mg HSPRN PRN ORAL Insomnia 01/11/17 21:00 01/18/17 20:59 01/16/17 00:17 OSCAR ANDERSON M.D. January 17, 2017 13:04
--- NOTE | 2017-01-17 16:10 | General Progress Note ---
Assessment/Plan Problem List: (1) Sepsis ICD Codes: A41.9 - Sepsis, unspecified organism SNOMED: 40062548 (2) Fever ICD Codes: R50.9 - Fever SNOMED: 961423430 (3) Pneumonia ICD Codes: J18.9 - Pneumonia SNOMED: 916722628 (4) Respiratory failure requiring intubation ICD Codes: J96.90 - Respiratory failure, unspecified, unspecified whether with hypoxia or hypercapnia SNOMED: 377997526 (5) Pancreatitis ICD Codes: K85.9 - Acute pancreatitis, unspecified SNOMED: 83359978 Qualifiers: Qualified Codes: K85.10 - Biliary acute pancreatitis without necrosis or infection (6) Atrial fibrillation ICD Codes: I48.91 - Atrial fibrillation SNOMED: 07021477 (7) HTN (hypertension) ICD Codes: I10 - Essential (primary) hypertension SNOMED: 95335627 Status: stable, progressing, tolerating diet Assessment/Plan vent abx transfer to ltach w same orders Subjective Constitutional: Reports: weakness Allergies: Coded Allergies: No Known Allergies (Unverified , 09/28/14) All Systems: reviewed and negative except above Subjective trach vent awake Objective Last 24 Hour Vital Signs Date Time Temp Pulse Resp B/P Pulse Ox O2 Delivery O2 Flow Rate FiO2 01/17/17 15:00 70 14 115/39 95 Mechanical Ventilator 30 01/17/17 14:54 77 14 30 01/17/17 14:00 89 22 156/61 92 Mechanical Ventilator 30 01/17/17 13:00 78 20 152/62 93 Mechanical Ventilator 30 01/17/17 12:56 80 20 30 01/17/17 12:00 30 01/17/17 12:00 99.2 78 18 145/57 93 Mechanical Ventilator 30 01/17/17 12:00 90 01/17/17 11:00 83 21 162/65 92 Mechanical Ventilator 30 01/17/17 10:35 72 18 30 01/17/17 10:00 76 21 116/55 94 Mechanical Ventilator 30 01/17/17 09:00 99.0 87 19 160/66 94 Mechanical Ventilator 30 01/17/17 08:50 97 01/17/17 08:50 93 22 30 01/17/17 08:48 87 149/42 01/17/17 08:00 99.4 88 22 149/42 99 Mechanical Ventilator 30 01/17/17 08:00 88 01/17/17 08:00 30 01/17/17 07:00 85 21 139/56 95 Mechanical Ventilator 30 01/17/17 06:55 83 17 30 01/17/17 06:00 79 15 144/43 97 Mechanical Ventilator 30 01/17/17 05:16 88 15 30 01/17/17 05:00 74 15 143/54 98 Mechanical Ventilator 30 01/17/17 04:00 98.8 71 20 129/73 98 Mechanical Ventilator 30 01/17/17 04:00 78 01/17/17 04:00 30 01/17/17 03:00 80 14 155/35 97 Mechanical Ventilator 30 01/17/17 02:55 72 14 30 01/17/17 02:00 72 16 138/40 98 Mechanical Ventilator 30 01/17/17 01:05 65 14 30 01/17/17 01:00 67 18 126/39 96 Mechanical Ventilator 30 01/17/17 00:00 76 01/17/17 00:00 30 01/17/17 00:00 98.6 81 17 162/47 100 Mechanical Ventilator 30 01/16/17 23:00 82 15 160/56 97 Mechanical Ventilator 30 01/16/17 22:45 84 14 30 01/16/17 22:00 79 16 160/45 98 Mechanical Ventilator 30 01/16/17 21:00 69 15 155/49 97 Mechanical Ventilator 30 01/16/17 20:40 65 14 30 01/16/17 20:00 97.9 60 21 151/51 97 Mechanical Ventilator 30 01/16/17 20:00 30 01/16/17 20:00 68 01/16/17 19:00 78 19 152/35 96 Mechanical Ventilator 30 01/16/17 18:50 98 14 30 01/16/17 18:00 68 14 134/52 96 Mechanical Ventilator 30 01/16/17 17:00 81 16 128/44 95 Mechanical Ventilator 30 01/16/17 16:52 88 15 30 01/16/17 16:45 30 Intake and Output 01/16/17 01/17/17 19:00 07:00 Intake Total 1661.645 ml 1620 ml Output Total 650 ml 405 ml Balance 1011.645 ml 1215 ml Free Water 300 ml 200 ml IV Total 791.645 ml 900 ml Tube Feeding 420 ml 420 ml Other 150 ml 100 ml Output Urine Total 650 ml 405 ml # Bowel Movements 2 Laboratory Tests 01/17/17 04:00: White Blood Count 14.6H, Red Blood Count 2.43L, Hemoglobin 7.3L, Hematocrit 23.3L, Mean Corpuscular Volume 96, Mean Corpuscular Hemoglobin 30.0, Mean Corpuscular Hemoglobin Concent 31.3L, Red Cell Distribution Width 16.1H, Platelet Count 168, Mean Platelet Volume 9.0, Neutrophils (%) (Auto) , Lymphocytes (%) (Auto) , Monocytes (%) (Auto) , Eosinophils (%) (Auto) , Basophils (%) (Auto) , Differential Total Cells Counted 100, Neutrophils % ( Manual) 81H, Lymphocytes % (Manual) 9L, Monocytes % (Manual) 5, Eosinophils % ( Manual) 2, Basophils % (Manual) 0, Band Neutrophils 3, Platelet Estimate Adequate, Platelet Morphology Normal, Red Blood Cell Morphology Normal, Prothrombin Time 11.7H, Prothromb Time International Ratio 1.1, Activated Partial Thromboplast Time 42H, Sodium Level 154H, Potassium Level 3.5, Chloride Level 111H, Carbon Dioxide Level 40H, Anion Gap 3L, Blood Urea Nitrogen 23, Creatinine 0.5, Estimat Glomerular Filtration Rate > 60, Glucose Level 145H, Calcium Level 7.7L, Phosphorus Level 2.7, Magnesium Level 1.9, Total Bilirubin 0.7, Aspartate Amino Transf (AST/SGOT) 24, Alanine Aminotransferase (ALT/SGPT) 11, Alkaline Phosphatase 167H, Total Protein 5.4L, Albumin 2.0L, Globulin 3.4, Albumin/Globulin Ratio 0.5L Height (Feet): 5 Height (Inches): 1.00 Weight (Pounds): 200 General Appearance: alert EENT: normal ENT inspection Neck: normal alignment Cardiovascular: normal peripheral pulses, normal rate, regular rhythm Respiratory/Chest: chest wall non-tender, lungs clear, normal breath sounds Abdomen: normal bowel sounds, non tender, soft Extremities: normal inspection Edema: no edema noted Arm (L), no edema noted Arm (R), no edema noted Leg (L), no edema noted Leg (R), no edema noted Pedal (L), no edema noted Pedal (R), no edema noted Generalized Neurologic: responsive, motor weakness Skin: normal pigmentation, warm/dry LINCOLN,ANASTASIA January 17, 2017 16:10
[2017-01-17] MEDS ORDERED: NS 275ml ONE (17:07)
[2017-01-17] MEDS ORDERED: Tubing Blood Filter IV ONE (17:07)
--- NOTE | 2017-01-19 12:08 | Discharge Summary ---
Discharge Summary Hospital Course Date of Admission Dec 09, 2016 at 01:53 Date of Discharge January 17, 2017 at 17:08 Admitting Diagnosis pancreatitis HPI Angela Pham is a 71 year old female who was admitted on Dec 09, 2016 at 01: 53 for Pancreatitis Hospital Course [id number] Discharge Discharge Disposition Patient was discharged to [facility] (63) Discharge Diagnoses: Cristiana Manzano NP January 19, 2017 12:08
== END 2017-01-17 17:08 | DRG 4 ==
LOC: EMR 22:20 → CANBEDREQ 12-09 01:05 → EDBEDREQ 12-09 01:47 → 2W 12-09 01:53 → 2E 12-10 05:33 → ICU 12-17 04:34
PROC: 0BH17EZ Insertion of Endotracheal Airway into Trachea, Via Natural or Artificial Opening (ICD-10-PCS; principal; 2016-12-17)
PROC: B548ZZA Ultrasonography of Superior Vena Cava, Guidance (ICD-10-PCS; principal; 2016-12-17)
PROC: 5A1955Z Respiratory Ventilation, Greater than 96 Consecutive Hours (ICD-10-PCS; principal; 2016-12-17)
PROC: 02HV33Z Insertion of Infusion Device into Superior Vena Cava, Percutaneous Approach (ICD-10-PCS; principal; 2016-12-17)
PROC: B548ZZA Ultrasonography of Superior Vena Cava, Guidance (ICD-10-PCS; 2016-12-19)
PROC: 02HV33Z Insertion of Infusion Device into Superior Vena Cava, Percutaneous Approach (ICD-10-PCS; 2016-12-19)
PROC: 0B110F4 Bypass Trachea to Cutaneous with Tracheostomy Device, Open Approach (ICD-10-PCS; 2017-01-01)
PROC: 0DH63UZ Insertion of Feeding Device into Stomach, Percutaneous Approach (ICD-10-PCS; 2017-01-02)
PROC: 0DBN8ZX Excision of Sigmoid Colon, Via Natural or Artificial Opening Endoscopic, Diagnostic (ICD-10-PCS; 2017-01-10)
PROC: 0JQ83ZZ Repair Abdomen Subcutaneous Tissue and Fascia, Percutaneous Approach (ICD-10-PCS; 2017-01-16)
DX: A41.9 Sepsis, unspecified organism (principal); N17.0 Acute kidney failure with tubular necrosis; J18.9 Pneumonia, unspecified organism; K55.9 Vascular disorder of intestine, unspecified; K85.90 Acute pancreatitis without necrosis or infection, unspecified; D68.9 Coagulation defect, unspecified; I11.0 Hypertensive heart disease with heart failure; I50.9 Heart failure, unspecified; J96.00 Acute respiratory failure, unspecified whether with hypoxia or hypercapnia; J80 Acute respiratory distress syndrome; Z99.11 Dependence on respirator [ventilator] status; K62.5 Hemorrhage of anus and rectum; K56.7 Ileus, unspecified; B37.49 Other urogenital candidiasis; K80.80 Other cholelithiasis without obstruction; Z98.890 Other specified postprocedural states; D50.9 Iron deficiency anemia, unspecified; K94.21 Gastrostomy hemorrhage; R65.20 Severe sepsis without septic shock; I48.2 Chronic atrial fibrillation; Z79.01 Long term (current) use of anticoagulants; I25.10 Atherosclerotic heart disease of native coronary artery without angina pectoris; R73.9 Hyperglycemia, unspecified; I27.2 Other secondary pulmonary hypertension; R00.1 Bradycardia, unspecified; R74.0 Nonspecific elevation of levels of transaminase and lactic acid dehydrogenase [LDH]; E88.09 Other disorders of plasma-protein metabolism, not elsewhere classified; Z95.2 Presence of prosthetic heart valve; Z95.4 Presence of other heart-valve replacement; K63.5 Polyp of colon; K64.8 Other hemorrhoids
CPT/HCPCS: 36415; 36569; 36600; 71010; 74000; 74176; 74177; 74181; 76700; 76775; 76937; 80048; 80053; 80061; 80076; 80162; 81001; 81003; 82150; 82248; 82270; 82330; 82436; 82533; 82550; 82553; 82803; 82962; 82977; 83036; 83605; 83690; 83735; 83880; 83930; 83935; 84100; 84133; 84300; 84439; 84443; 84478; 84481; 84484; 84550; 85007; 85025; 85610; 85651; 85730; 86140; 86850; 86900; 86901; 86920; 87040; 87070; 87086; 87181; 87205; 87324; 89050; 93005; 93306; 94002; 94003; 94150; C9399; J1815; J2250; J2405; J2765